=== PATIENT | female | born 1960 | race Caucasian/White ===

== ENCOUNTER → 2018-11-07 07:55 | Outpatient (CLI) | payer OTHER, SELFPAY ==
[2018-11-07 07:51] VITALS: BMI 25.0
--- NOTE | 2018-11-07 08:07 | RAD_ITS ---
STUDY: X-RAY - RIGHT ELBOW REASON FOR EXAM: Female, 58 years old. Pain and swelling along the posterior elbow joint following a fall. TECHNIQUE: view(s) of the elbow. COMPARISON: None. FINDINGS: Normal visualized humerus, radius and ulna. Normal radiocapitellar and ulnotrochlear articulations. Soft tissue swelling overlying the olecranon process. RAD/Elbow min 3 Views IMPRESSION: Posterior soft tissue swelling. Electronically Signed: Ken Quiroz, at 8:34 EDT , Service support ,
--- NOTE | 2018-11-07 08:08 | RAD_ITS ---
STUDY: X-RAY - RIGHT KNEE REASON FOR EXAM: Female, 58 years old. Pain following a fall. TECHNIQUE: 4 view(s) of the knee. COMPARISON: None. FINDINGS: Normal visualized distal femur. Normal visualized proximal tibia and fibula. Normal proximal tibiofibular articulation. There is mild degenerative arthrosis of the medial femorotibial compartment. Normal lateral femorotibial compartment. Normal patellofemoral articulation. The soft tissue structures are unremarkable. RAD/Knee 4 or More Views IMPRESSION: Degenerative arthrosis. Electronically Signed: Ken Quiroz, at 8:34 EDT , Service support ,
== END ==
PROVIDERS: Referring Provider Physician Assistant Surgical; Visit Provider Physician Assistant Surgical
DX: M25.521 Pain in right elbow (principal); M25.561 Pain in right knee
CPT/HCPCS: 73080; 73564

== ENCOUNTER → 2018-12-24 11:01 | Outpatient (CLI) | payer BC, SELFPAY ==
[2018-11-07 07:51] VITALS: BMI 25.0
[2018-12-24 13:12] LABS: AST(SGOT) 18 U/L (15-37); Alanine Aminotransfer ALT/SGPT 30 U/L (13-56); Albumin, Serum 3.8 g/dL (3.2-5.0); Alkaline Phosphatase 148 U/L (45-117); Anion Gap 6 (5-15); BUN 21 mg/dL (7-18); BUN/Creat Ratio 24.8 RATIO (10-20); Calcium,Total 9.5 mg/dL (8.5-10.1); Chloride 97 mmol/L (98-107); Creatinine, Serum 0.85 mg/dL (0.55-1.02); EST Glomerular Filtration Rate 73 mL/min (>60); Est Glom Filt Rate - Afr Amer 88 mL/min (>60); Globulin 3.8 g/dL (2.2-4.2); Glucose 318 mg/dL (74-106); Potassium 4.3 mmol/L (3.5-5.1); Protein, Total 7.6 g/dL (6.4-8.2); Sodium Level 135 mmol/L (136-145); Thyroid Stim Hormone (TSH) 1.02 uIU/mL (0.358-3.74)
== END ==
PROVIDERS: Family Provider Family Medicine; PCP Family Medicine; Referring Provider Family Medicine; Visit Provider Family Medicine
DX: E11.9 Type 2 diabetes mellitus without complications (principal)
CPT/HCPCS: 36415; 80053; 84443

== ENCOUNTER → 2019-05-21 11:42 | Outpatient (CLI) | payer BC, SELFPAY ==
[2019-05-21 09:07] VITALS: BMI 25.0
[2019-05-21 13:11] LABS: Microalbumin,Random Urine 69.9 mg/L (NO RANGE EST.)
== END ==
PROVIDERS: Family Provider Family Medicine; PCP Family Medicine; Referring Provider Internal Medicine Endocrinology, Diabetes & Metabolism; Visit Provider Internal Medicine Endocrinology, Diabetes & Metabolism
DX: E11.65 Type 2 diabetes mellitus with hyperglycemia (principal)
CPT/HCPCS: 82043; 82570

== ENCOUNTER → 2019-07-30 08:50 | Outpatient (CLI) | payer BC, SELFPAY ==
[2019-07-30 08:14] VITALS: BMI 25.0
[2019-07-30 11:08] LABS: ALB/GLOB Ratio 0.9 RATIO (0.9-2.4); AST(SGOT) 15 U/L (15-37); Alanine Aminotransfer ALT/SGPT 25 U/L (13-56); Albumin, Serum 3.4 g/dL (3.2-5.0); Alkaline Phosphatase 122 U/L (45-117); Anion Gap 5 (5-15); BUN 16 mg/dL (7-18); BUN/Creat Ratio 19.1 RATIO (10-20); Calcium,Total 9.4 mg/dL (8.5-10.1); Chloride 104 mmol/L (98-107); Cholesterol 173 mg/dL (200); Creatinine, Serum 0.84 mg/dL (0.55-1.02); EST Glomerular Filtration Rate 73 mL/min (>60); Est Glom Filt Rate - Afr Amer 89 mL/min (>60); Globulin 3.9 g/dL (2.2-4.2); Glucose 212 mg/dL (74-106); High Density Lipoprotein 33 mg/dL; Protein, Total 7.3 g/dL (6.4-8.2); Sodium Level 138 mmol/L (136-145); Triglycerides 528 mg/dL
[2019-07-30 11:24] LABS: Vitamin D,25 Hydroxy 23.4 ng/mL (29.95-100.01)
== END ==
PROVIDERS: PCP Family Medicine; Referring Provider Family Medicine; Visit Provider Family Medicine
DX: E11.9 Type 2 diabetes mellitus without complications (principal); E55.9 Vitamin D deficiency, unspecified
CPT/HCPCS: 36415; 80053; 80061; 82306; 84443

== ENCOUNTER 2020-02-06 09:41 | Inpatient (IN) | payer OTHER, SELFPAY ==
[2019-07-30 08:14] VITALS: BMI 25.0
[2020-02-06 09:43] VITALS: BP 90/55; PULSE 71; RESP 17; TEMP 35.9; O2SAT 99; BMI 25.7
--- NOTE | 2020-02-06 10:09 | CT_ITS ---
STUDY: CT ABDOMEN AND PELVIS WITHOUT CONTRAST REASON FOR EXAM: Female, 59 years old. PT STATED FALL FROM LADDER AT WORK TODAY, LEFT HIP PAIN RADIATION DOSAGE (If Supplied By Facility): CTDIvol = ( 7.1 ) mGy, DLP = ( 392.05 ) mGycm TECHNIQUE: Transaxial images were obtained from the dome of the diaphragm to the symphysis pubis without oral contrast, and without intravenous contrast. Sagittal and coronal images were reconstructed. Individualized dose optimization techniques were used for this CT. COMPARISON: None. FINDINGS: The visualized lung bases are unremarkable. The visualized portions of the heart are within normal limits. Normal liver. Normal gallbladder and extrahepatic biliary system. Normal spleen. Normal pancreas. Normal bilateral adrenal glands. Normal right kidney. Normal left kidney. Normal visualized stomach. Normal small intestine. Normal colon. The appendix is visualized and appears normal. Normal abdominal aorta. Normal inferior vena cava. Normal retroperitoneum. Normal urinary bladder. Some soft tissue swelling in the anterior abdominal wall of lower quadrant. Unilateral left-sided pars defect of the L5 vertebra. CT/Abdomen/Pelvis without Cont IMPRESSION: Normal unenhanced CT of the abdomen and pelvis. Pending Final Proof Editing
--- NOTE | 2020-02-06 10:10 | RAD_ITS ---
STUDY: X-RAY - PELVIS AND LEFT HIP REASON FOR EXAM: Female, 59 years old. FALL OFF OF LADDER. PAIN LEFT HIP TECHNIQUE: 3 views of the pelvis and hip. COMPARISON: None. FINDINGS: There is a non-specific bowel gas pattern. Normal visualized soft tissue structures. Normal bilateral iliac wings, sacroiliac joints and visualized sacrum. Normal bilateral superior and inferior pubic rami. Normal pubic symphysis. Normal bilateral ischial tuberosities. Acute nondisplaced fracture the basicervical femoral neck. Normal acetabulum. Normal hip joint. RAD/HIP, UNI W/ Pelvis 2-3 Views IMPRESSION: Acute nondisplaced fracture the basicervical femoral neck. Electronically Signed: Mateusz Sewell MD at 11:05 EDT Tel , Service support ,
--- NOTE | 2020-02-06 10:10 | RAD_ITS ---
STUDY: X-RAY - LEFT ANKLE REASON FOR EXAM: Female, 59 years old. FALL OFF OF LADDER TECHNIQUE: 3 view(s) of the ankle. COMPARISON: None. FINDINGS: Normal visualized distal tibia and fibula. Normal medial and lateral malleoli. Normal tibiotalar articulation and ankle mortise. Normal visualized talus and calcaneus. The visualized subtalar, talonavicular, calcaneocuboid and tarsal articulations are normal. The soft tissue structures are unremarkable. RAD/Ankle min 3 Views IMPRESSION: Normal x-ray examination of the ankle. Electronically Signed: Mateusz Sewell MD at 11:02 EDT Tel , Service support ,
--- NOTE | 2020-02-06 10:15 | ED.DCSUM_ITS ---
History of Present Illness Chief Complaint: Fall Narrative: Patient presenting for evaluation secondary to a fall. Patient works at [employer], and informs me that she was descending a three-step stepladder, thought she was on the final step but was actually on the second step and suffered a fall. She denies that she hit her head or loss consciousness. She states that she fell directly on her left hip and left buttock. She has a moderate to severe amount of pain there, and was unable to bear weight when she was helped to her feet. Patient denies that she is on any sort of anticoagulant medications. She denies any visual changes numbness weakness nausea vomiting or confusion. Patient also reports that she has a very mild amount of lateral left ankle pain. Review of systems otherwise negative. Past Medical History - Allergies and Home Meds Allergies/Adverse Reactions: Allergies No Known Allergies Allergy (Verified 02/06/20 09:43) Prior records reviewed: Yes Past Medical History: - - Hypertension, hyperlipidemia, diabetes Lives: Spouse/ Significant Other Smoking Status: Former smoker Alcohol: None Drugs: None Review of Systems All systems negative except as indicated General: Denies: Chills, Fever, Sweats Eyes: Denies: Visual changes - bilaterally, Diplopia ENT: Denies: Rhinorrhea, Sore throat Cardiovascular: Denies: Chest pain, Palpitations Respiratory: Denies: Dyspnea, Cough, Dyspnea on exertion Gastrointestinal: Denies: Abdominal pain, Nausea, Vomiting, Diarrhea, Melena, Hematochezia Genitourinary: Denies: Dysuria, Hematuria, Frequency Musculoskeletal: Reports: Extremity Pain Skin: Denies: Rash, Wounds Neurological: Denies: Headache, Weakness, Numbness Physical Exam Vital Signs/Narrative: Vital Signs Temp Pulse Resp BP Pulse Ox 02/06/20 09:43 96.6 F L 71 17 90/55 L 99 Inital Vital Signs reviewed: Yes General: Well nourished, Well developed, - - Airway is patent, breath sounds are equal bilateral, 2+ peripheral pulses bilaterally symmetric, GCS 15 out of 15 Head: Normocephalic, Atraumatic Eyes: Perrl, EOMI ENT: TM's clear, No hemotympanum or drainage, No trauma Neck: Nontender, Full ROM. Negative for: Spinal Tenderness, Paraspinal Tenderness Cardiovascular: Regular rate, Regular rhythm, No murmurs, - - 2+ radial, 2+ DP pulses bilaterally symmetric Respiratory: No distress, CTA bilaterally, Chest nontender, - - Normal chest excursion Abdomen: Soft, Nontender, Nondistended, Normal bowel sounds Back: Nontender Extremeties: Patient complains with pain on palpation of the left buttock without evidence of deformity. No pain on palpation of the left hip, no pain with logroll or with passive flexion and extension at the hip, but the patient complains of exquisite pain with active flexion and extension. Mild amount of pain over the lateral malleolus without any evidence of deformity. Normal range of motion of the foot and ankle. No tenderness over the midfoot or the fifth metatarsal head. No proximal fibular head tenderness. Normal sensation over all dermatomes Skin: Normal color, No rash Neurological: Alert, Oriented x3, Cranial nerves II-XII grossly intact, Normal Strength, Normal Sensation Psychological: Normal affect Diagnostic/Tx/Re-eval - Medical Decision Making Patient presented secondary to a mechanical fall. Primary and secondary surveys are noted as above, no intervention needed on primary survey, secondary survey showed left lower extremity injury. Patient was noted to be somewhat hypotensive, she has no other outward signs of trauma, but I did order CT abdomen and pelvis to rule out intra-abdominal injury or hemorrhage. Hip x-ray by my personal interpretation shows evidence of a nondisplaced left femoral neck fracture. 3 view ankle, and 1 view chest by my personal interpretation are found to be negative. Due to the patient's hip fracture, screening EKG and lab work were ordered. I will discuss patient's case with orthopedics and she will be admitted for definitive management of a left hip fracture. ED Disposition - Plan for ED Patient: Disposition: [facility] Diagnosis: Fracture of femoral neck, left
--- NOTE | 2020-02-06 10:31 | EKG12_ITS ---
Test Reason : FALL Blood Pressure : / mmHG Vent. Rate : 056 BPM Atrial Rate : 056 BPM P-R Int : 134 ms QRS Dur : 086 ms QT Int : 424 ms P-R-T Axes : 036 -31 012 degrees QTc Int : 409 ms Sinus bradycardia Left axis deviation Abnormal ECG Confirmed by LAURITA ARIAS, TORY ([id number]), book editor WASHINGTON MENDOZA ([id number]) on 02/08/2020 8:58:45 AM Referred By: JASON Confirmed By:TORY SHAY MD
--- NOTE | 2020-02-06 10:31 | RAD_ITS ---
STUDY: X-RAY CHEST REASON FOR EXAM: Female, 59 years old. FALL OFF OF LADDER, FX HIP. TAKEN IS TECHNIQUE: Single AP portable view of the chest. COMPARISON: 02/19/2012 FINDINGS: The lungs are clear and expanded. There is no demonstrated pleural abnormality. Normal size heart. Normal mediastinum and estelle. Normal visualized pulmonary arteries. Normal visualized aortic arch and descending thoracic aorta. Normal visualized thoracic spine. Normal visualized ribs, clavicles, and shoulders. There is no demonstrated abnormality of the visualized soft tissue structures of the upper abdomen. RAD/Chest 1 View IMPRESSION: Normal x-ray examination of the chest. Electronically Signed: Mateusz Sewell MD at 10:58 EDT Tel , Service support ,
[2020-02-06 10:56] LABS: Absolute Lymphocyte Count 2.79 X10^3/uL (0.83-4.51); Absolute Neutrophil Count 5.3 X10^3/uL (2.0-7.7); Basophil# 0.03 X10^3/uL; Basophil% 0.3 % (0-1); Eosinophil# 0.15 X10^3/uL; Eosinophils% 1.7 % (0-5); Hematocrit 38.6 % (37-47); Hemoglobin 13.6 g/dL (12.0-15.0); Lymphocyte # 2.79 X10^3/ul (4.0); Lymphocyte % 32.3 % (19-41); Mean Corp Hgb Conc 35.2 g/dL (32-36); Mean Corpuscular Volume 82.3 fL (81-99); Monocyte# 0.35 X10^3/uL; Monocyte% 4.1 % (0-10); NRBC Flagged by Analyzer 0 % (0-5); Neutrophil # 5.28 X10^3/uL (2.7-7.7); Neutrophil % 61.1 % (47-70); Platelet Count 219 K/mm3 (150-450); RBC Distribution Width CV 12.2 % (11.6-14.6); Red Blood Count 4.69 M/mm3 (4.2-5.4); White Blood Count 8.6 K/mm3 (4.4-11.0)
[2020-02-06 11:02] LABS: Partial Thromboplast Time 26.3 Seconds (24.1-36.2)
[2020-02-06 11:06] LABS: Anion Gap 4 (5-15); BUN 22 mg/dL (7-18); BUN/Creat Ratio 22.7 RATIO (10-20); Calcium,Total 9.1 mg/dL (8.5-10.1); Chloride 101 mmol/L (98-107); Creatinine, Serum 0.97 mg/dL (0.55-1.02); EST Glomerular Filtration Rate 62 mL/min (>60); Est Glom Filt Rate - Afr Amer 75 mL/min (>60); Estimated Creatinine Clearance 50.38 ml/min; Glucose 243 mg/dL (74-106); Potassium 3.4 mmol/L (3.5-5.1); Sodium Level 134 mmol/L (136-145)
[2020-02-06] MEDS: Ondansetron 4 MG/2 ML Vial IV (11:09)
[2020-02-06] MEDS: 0.9% Normal Saline 1,000 ML 999 ML IV (11:09)
[2020-02-06] MEDS: fentaNYL 100 MCG/2 ML Ampul 25 MCG IV (11:09)
[2020-02-06 11:30] VITALS: BP 127/73; PULSE 80; RESP 15
--- NOTE | 2020-02-06 11:32 | PCM.HP.STD ---
History of Present Illness Date of Admission: 02/06/20 Chief Complaint: Hip fracture The patient is a 59 year old F with a PMH as below who presents after a fall at work. 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 She has a left femoral neck fracture. A1c on admission is 11.1 and her glucose was elevated to 43. She denies any lightheadedness, or dizziness before the fall. She states that this was purely mechanical. She states that she does not get any shortness of breath with ambulation or with going up stairs. She does not bruise easily. Past Medical History Past Medical History (Chronic Problems): Chronic Problems (Last Reviewed 07/30/19 @ 08:[address] Adam Alvarado MD) Noncompliance with diabetes treatment (Chronic) Mixed hyperlipidemia (Chronic) Benign essential hypertension (Chronic) Polyneuropathy due to type 2 diabetes mellitus (Chronic) Diabetes mellitus (Chronic) Medical History: Medical History (Last Reviewed 07/30/19 @ 08:[address] Adam Alvarado MD) Cancer C80.1 Diabetes E11.9 H/O transfusion of whole blood Z92.89 Hyperlipidemia E78.5 Liver disease K76.9 Neuropathy G62.9 Shortness of breath R06.02 Skin cancer C44.90 Vitamin D deficiency E55.9 Chronic headaches R51 Hypertension I10 Allergies No Known Allergies Allergy (Verified 02/06/20 09:43) Home Medications: Ambulatory Orders Medication Instructions Recorded metformin 500 mg tablet,extended 500 mg PO DAILY 30 Days #30 tab 07/12/18 release 24 hr metoprolol succinate 50 mg 50 mg PO DAILY 30 Days #30 tab 07/12/18 tablet,extended release 24 hr aspirin 81 mg tablet,delayed 81 mg PO DAILY 05/08/19 release lisinopril 20 1 tab PO DAILY 05/08/19 mg-hydrochlorothiazide 25 mg tablet magnesium oxide 500 mg capsule 500 mg PO DAILY 05/08/19 omega-3 acid ethyl esters 1 gram 2 cap PO DAILY cap 05/08/19 capsule omeprazole 40 mg capsule,delayed 40 mg PO DAILY 05/08/19 release Cholecalciferol (Vitamin D3) 2,000 unit PO DAILY 02/06/20 [Vitamin D3] Glimepiride 4 mg PO BID 02/06/20 Insulin Detemir [Levemir (BKC)] 39 units SUBCUT QHS 02/06/20 Rosuvastatin Calcium [Crestor] 20 mg PO DAILY 02/06/20 Surgical History: Surgical History (Last Reviewed 07/30/19 @ 08:[address] Adam Alvarado MD) H/O: Z98.891 1996 Status post surgical removal of malignant neoplasm of skin Z98.890 Lives: Spouse/ Significant Other Smoking Status: Former smoker Alcohol: None Drugs: None - *Family History Maternal Family History: Family History (Last Reviewed 07/30/19 @ 08:[address] Adam Alvarado MD) Father Arthritis Diabetes Myocardial infarction, Onset Age: 63 Heart disease Hypertension Sister Arthritis Diabetes Brother Diabetes Mental disorder Mother Hypertension Migraines Cerebral hemorrhage Review of Systems Constitutional: Denies: Chills, Fever, Weight Change HEENT: Denies: Head Aches, Sinus Congestion, Sinus Drainage Cardiovascular: Denies: Chest Pain, Palpitations Respiratory: Denies: Cough, Shortness of breath at rest, Sputum production Gastrointestinal: Denies: Abdominal Pain, Nausea, Vomiting Genitourinary: Denies: Dysuria Musculoskeletal: Reports: Leg Pain. Denies: Joint Pain, Joint Tenderness Skin: Denies: Rash, Wounds Neurological: Denies: Numbness, Tingling, Focal weakness Psychiatric: Denies: Anxiety, Depression Hematologic/ Lymphatic: Denies: Easy Bruising, Easy Bleeding VTE Information - Inpt Only VTE Present on Admission: No Patient Problems: Active and Suspected Problems (Last Reviewed 07/30/19 @ 08:[address] Adam Alvarado MD) Fracture of femoral neck, left (Acute) - Physical Exam Vitals/I&O's: Vital Signs Temp Pulse Resp BP Pulse Ox 96.6 F L 71 17 90/55 L 99 02/06/20 09:43 02/06/20 09:43 02/06/20 09:43 02/06/20 09:43 02/06/20 09:43 Oxygen Delivery Method Room Air Weight: 145 lb Body Mass Index (BMI) 25.7 General: Alert, Oriented x3, Cooperative, No apparent distress HEENT: Atraumatic, PERRLA, EOMI, Normocephalic Oral: Moist Mucosa Neck: Supple, No JVD Lungs: Clear to auscultation, Normal air movement, No rhonchi, No wheeze, No rales, Diminished Cardiovascular: Regular rate, Regular Rhythm, Normal S1, Normal S2, No murmurs Abdomen: Soft, Non Tender, Non-Distended, No Hepato-splenomegaly Extremities: No edema, Capillary Refill Less than 3 Seconds Skin: No rashes, No breakdown Musculoskeletal: Tenderness - To palpation of the left hip Neurological: Neuro grossly intact, Sensory exam intact to light touch and pain Psych/Mental Status: Normal Affect, Appropriate Laboratory Results 02/06/20 10:45: WBC 8.6, RBC 4.69, Hgb 13.6, Hct 38.6, MCV 82.3, MCH 29.0, MCHC 35.2, RDW Std Deviation 36.0, RDW Coeff of Shameka 12.2, Plt Count 219, MPV 10.0, Immature Gran % (Auto) 0.500, Neut % (Auto) 61.1, Lymph % (Auto) 32.3, Wells % (Auto) 4.1, Eos % (Auto) 1.7, Baso % (Auto) 0.3, Absolute Neuts (auto) 5.3, Absolute Lymphs (auto) 2.79, Nucleated RBC % 0 02/06/20 10:45: PT 13.0, INR 1.0, APTT 26.3 02/06/20 10:45: Sodium 134 L, Potassium 3.4 L, Chloride 101, Carbon Dioxide 29.0, Anion Gap 4 L, BUN 22 H, Creatinine 0.97, Estim Creat Clear Calc 50.38, Est GFR (MDRD) Af Amer 75, Est GFR (MDRD) Non-Af 62, BUN/Creatinine Ratio 22.7 H, Glucose 243 H, Calcium 9.1 02/06/20 10:45: Blood Type Pending, Antibody Screen Pending Current Medications Sodium Chloride () 1,000 mls @ 999 mls/hr IV .Q1H1M ONE Stop: 02/06/20 12:03 Last Admin: 02/06/20 11:09 Dose: 999 mls/hr Documented by: Assessment/Plan All Active Problems (Last Reviewed 07/30/19 @ 08:[address] Adam Alvarado MD) Fracture of femoral neck, left (Acute) Contusion of right knee, initial encounter (Acute) Contusion of right elbow, initial encounter (Acute) 1. Acute nondisplaced fracture of the femoral neck on the left secondary to mechanical fall -Plan for operative repair tomorrow by Ortho -Pain meds available -Surgical risk calculator on the chart -PT/OT 2. DM 2 -A1c is 11.1 -We will continue with her home insulin and will add mealtimes and a sliding scale -We will hold her oral hypoglycemics -Accu-Cheks AC at bedtime 3. HTN/HLD -Had a stress test few years ago which was nonischemic -EKG is unremarkable -Continue with her blood pressure medications -Continue with her Crestor 4. GERD -Stable -Continue with PPI DVT: SCDs Inpatient E&M: [id number] Init Hosp L3
[2020-02-06 11:43] VITALS: BP 127/73; PULSE 78; RESP 15; TEMP 36.3
[2020-02-06 12:08] VITALS: BMI 25.3
[2020-02-06 12:43] VITALS: BP 110/72; PULSE 60; RESP 16; TEMP 36.4; O2SAT 98
--- NOTE | 2020-02-06 13:10 | CASEMGMT ---
RN CM Face to Face with patient for initial transition planning/care coordination assessment. RN CM introduced self and role at [facility]. Patient lying in bed, alert and oriented, at bedside. Patient willing to participate in assessment and is able to answer all questions appropriately. Care providers, pharmacy, and demographics verified. Patient wishes to discharge home, will monitor need for outpatient therapy vs HHC. Patient states she has no further needs or concerns at this time. CM to follow for discharge planning needs that may arise. PCP: Cam Specialists: Antonio Alvarado Preferred Pharmacy: [facility] Insurance: [employer] Prescription Benefit: yes Living Will/HPOA: none LNOK: Living Arrangements: Patient lives with in a ranch style home with 2 steps to enter. Patient states she is independent at home. Transportation: self/ DME/HHC: Patient states she has crutches at home. Will monitor for need for walker. Disposition Plan: Patient to discharge home with outpatient therapy vs HHC, family support, and follow-up plans in place. Lou ALEXANDER, RN, CM
--- NOTE | 2020-02-06 13:22 | EKG12_ITS ---
Test Reason : ROUTINE Blood Pressure : / mmHG Vent. Rate : 086 BPM Atrial Rate : 086 BPM P-R Int : 158 ms QRS Dur : 084 ms QT Int : 376 ms P-R-T Axes : 044 -32 019 degrees QTc Int : 449 ms Normal sinus rhythm Left axis deviation Abnormal ECG No previous ECGs available Confirmed by KIRAN ARIAS, CARLA ([id number]), photography editor WASHINGTON MENDOZA ([id number]) on 02/09/2020 10:51:23 AM Referred By: JEVON Confirmed By:CARLA BECK MD
[2020-02-06 13:52] LABS: Hemoglobin A1c 11.1 % (3.8-5.6)
[2020-02-06] MEDS: Acetaminophen 325 MG Tablet 650 MG PO ×2 (13:55→21:34)
[2020-02-06] MEDS: oxyCODONE 5 MG Tablet PO ×2 (13:55→21:34)
[2020-02-06 16:10] VITALS: BP 94/55; PULSE 64; RESP 16; TEMP 36.7; O2SAT 98
[2020-02-06 16:20] LABS: Bedside Glucose 208 mg/dL (70-110)
[2020-02-06] MEDS: Insulin Lispro 100 UNIT/ML INSULN.PEN SC ×3 (17:45→21:48)
[2020-02-06 21:30] VITALS: BP 128/77; PULSE 68; RESP 16; TEMP 36.7; O2SAT 98
[2020-02-06] MEDS: MELATONIN 3 MG TABLET PO (21:34)
[2020-02-06 21:55] LABS: Bedside Glucose 303 mg/dL (70-110)
[2020-02-07] VITALS (13 sets, daily range): BP systolic 121–160; BP diastolic 55–107; PULSE 60–107; RESP 16–18; TEMP 35.9–36.8; O2SAT 90–100; BMI 25.3
[2020-02-07] MEDS: 0.9% Saline Lock 10 ML Syringe IV ×3 (05:57→15:24)
[2020-02-07] MEDS: Metoprolol(XL)Succ 50 MG Tablet PO (05:58)
[2020-02-07] MEDS: Morphine 2 MG/ML Syringe IV (06:03)
[2020-02-07] MEDS: Ondansetron 4 MG/2 ML Vial IV (06:03)
[2020-02-07 06:16] LABS: Bedside Glucose 235 mg/dL (70-110)
[2020-02-07 06:50] LABS: Absolute Lymphocyte Count 3.69 X10^3/uL (0.83-4.51); Absolute Neutrophil Count 3.4 X10^3/uL (2.0-7.7); Basophil# 0.02 X10^3/uL; Basophil% 0.3 % (0-1); Eosinophil# 0.23 X10^3/uL; Hematocrit 40.3 % (37-47); Hemoglobin 13.6 g/dL (12.0-15.0); Lymphocyte # 3.69 X10^3/ul (4.0); Lymphocyte % 47.9 % (19-41); Mean Corp Hgb Conc 33.7 g/dL (32-36); Mean Corpuscular Hgb 27.9 pg (27.0-32.0); Mean Corpuscular Volume 82.8 fL (81-99); Mean Platelet Vol. 10.4 fl (6.2-12.0); Monocyte# 0.39 X10^3/uL; Monocyte% 5.1 % (0-10); NRBC Flagged by Analyzer 0 % (0-5); Neutrophil # 3.35 X10^3/uL (2.7-7.7); Neutrophil % 43.4 % (47-70); Platelet Count 190 K/mm3 (150-450); RBC Distribution Width CV 12.2 % (11.6-14.6); Red Blood Count 4.87 M/mm3 (4.2-5.4); White Blood Count 7.7 K/mm3 (4.4-11.0)
--- NOTE | 2020-02-07 06:50 | NURSING ---
REPORT GIVEN TO SURGERY NURSE
[2020-02-07 07:05] LABS: Anion Gap 4 (5-15); BUN 16 mg/dL (7-18); BUN/Creat Ratio 17.3 RATIO (10-20); Calcium,Total 8.7 mg/dL (8.5-10.1); Chloride 102 mmol/L (98-107); Creatinine, Serum 0.92 mg/dL (0.55-1.02); EST Glomerular Filtration Rate 65 mL/min (>60); Est Glom Filt Rate - Afr Amer 79 mL/min (>60); Estimated Creatinine Clearance 53.12 ml/min; Glucose 260 mg/dL (74-106); Sodium Level 136 mmol/L (136-145)
--- NOTE | 2020-02-07 07:19 | PCM.CONS.GEN ---
Reason for Consult Date of Consultation: 02/07/20 Reason for Consultation: Left hip pain. requested by dr jose History of Present Illness: The patient is a 59 year old F who presents today for left hip pain. Patient has poorly controlled diabetes and hemoglobin A1c was 11.1 on admission. She is remained in the 200s per hyjeh-gh-exac checks. Patient notes that yesterday while at work she was on a stepstool and had a mechanical fall. Upon falling off she was unable to bear weight on the left hip. Pain is currently 6 out of 10. At the time of injury it was 10 out of 10. Patient is currently unable to bear weight. Pain is better with rest and immobilization. No associated numbness and tingling distally. She does have chronic neuropathy. She lives at home with her , and ambulates without any assistive devices and reports regular activity. Past Medical History Past Medical History (Chronic Problems): Chronic Problems (Last Reviewed 07/30/19 @ 08:[address] Adam Alvarado MD) Noncompliance with diabetes treatment (Chronic) Mixed hyperlipidemia (Chronic) Benign essential hypertension (Chronic) Polyneuropathy due to type 2 diabetes mellitus (Chronic) Diabetes mellitus (Chronic) Medical History: Medical History (Last Reviewed 07/30/19 @ 08:[address] Adam Alvarado MD) Cancer C80.1 Diabetes E11.9 H/O transfusion of whole blood Z92.89 Hyperlipidemia E78.5 Liver disease K76.9 Neuropathy G62.9 Shortness of breath R06.02 Skin cancer C44.90 Vitamin D deficiency E55.9 Chronic headaches R51 Hypertension I10 Allergies No Known Allergies Allergy (Verified 02/06/20 09:43) Home Medications: Ambulatory Orders Medication Instructions Recorded metformin 500 mg tablet,extended 500 mg PO DAILY 30 Days #30 tab 07/12/18 release 24 hr metoprolol succinate 50 mg 50 mg PO DAILY 30 Days #30 tab 07/12/18 tablet,extended release 24 hr aspirin 81 mg tablet,delayed 81 mg PO DAILY 05/08/19 release lisinopril 20 1 tab PO DAILY 05/08/19 mg-hydrochlorothiazide 25 mg tablet magnesium oxide 500 mg capsule 500 mg PO DAILY 05/08/19 omega-3 acid ethyl esters 1 gram 2 cap PO DAILY cap 05/08/19 capsule omeprazole 40 mg capsule,delayed 40 mg PO DAILY 05/08/19 release Cholecalciferol (Vitamin D3) 2,000 unit PO DAILY 02/06/20 [Vitamin D3] Glimepiride 4 mg PO BID 02/06/20 Insulin Detemir [Levemir (BKC)] 39 units SUBCUT QHS 02/06/20 Rosuvastatin Calcium [Crestor] 20 mg PO DAILY 02/06/20 Surgical History: Surgical History (Last Reviewed 07/30/19 @ 08:[address] Adam Alvarado MD) H/O: Z98.891 1996 Status post surgical removal of malignant neoplasm of skin Z98.890 Surgical History: no surgical history Lives: Spouse/ Significant Other Smoking Status: Former smoker Tobacco Use: Non-smoker Alcohol: None Drugs: None - *Family History Maternal Family History: Family History (Last Reviewed 07/30/19 @ 08:[address] Adam Alvarado MD) Father Arthritis Diabetes Myocardial infarction, Onset Age: 63 Heart disease Hypertension Sister Arthritis Diabetes Brother Diabetes Mental disorder Mother Hypertension Migraines Cerebral hemorrhage Review of Systems Constitutional: Denies: Chills, Fever, Weight Change HEENT: Denies: Head Aches, Sinus Congestion, Sinus Drainage Cardiovascular: Denies: Chest Pain, Palpitations Respiratory: Denies: Cough, Shortness of breath at rest, Sputum production Gastrointestinal: Denies: Abdominal Pain, Nausea, Vomiting Genitourinary: Denies: Dysuria Musculoskeletal: Reports: Joint Pain, Joint Tenderness Skin: Denies: Rash, Wounds Neurological: Denies: Numbness, Tingling, Focal weakness Psychiatric: Denies: Anxiety, Depression, Homicidal Ideations, Suicidal Ideations Hematologic/ Lymphatic: Denies: Easy Bruising, Easy Bleeding Patient Problems: Active and Suspected Problems (Last Reviewed 07/30/19 @ 08:[address] Adam Alvarado MD) Fracture of femoral neck, left (Acute) Objective: Left hip x-rays and CT scan were reviewed. There is a mildly displaced transcervical femoral neck fracture. It is called basicervical on the radiographs by radiologist however it is a transcervical. Also evidence of joint space narrowing consistent with mild arthrosis of the joint. - Physical Exam Vitals/I&O's: Vital Signs Temp Pulse Resp BP Pulse Ox 98.1 F 60 16 139/55 H 96 02/07/20 06:15 02/07/20 06:15 02/07/20 06:15 02/07/20 06:15 02/07/20 06:15 Oxygen Delivery Method Room Air Weight: 143 lb Body Mass Index (BMI) 25.3 Intake and Output for Last 24 Hours 02/05/20 02/06/20 02/07/20 23:59 23:59 23:59 Intake Total 1400 / 1400 400 / 400 Output Total 700 / 700 950 / 950 Balance 700 / 700 -550 / -550 General: Alert HEENT: Atraumatic Neck: No JVD Lungs: - - Nonlabored breathing Cardiovascular: - - Regular pulse rate Abdomen: Non-Distended Extremities: - - Right lower extremity: Skin clean, dry, and intact. Limb length is maintained Motor is intact dorsiflexion, EHL and plantar flexion. Sensation is intact to light touch saphenous, jessica,l superficial peroneal, deep peroneal and tibial distributions. Calves are soft and supple. Skin: No rashes Neurological: Cranial nerves II-XII grossly intact Psych/Mental Status: Appropriate Laboratory Results 02/06/20 10:45: WBC 8.6, RBC 4.69, Hgb 13.6, Hct 38.6, MCV 82.3, MCH 29.0, MCHC 35.2, RDW Std Deviation 36.0, RDW Coeff of Shameka 12.2, Plt Count 219, MPV 10.0, Immature Gran % (Auto) 0.500, Neut % (Auto) 61.1, Lymph % (Auto) 32.3, Hopkins % (Auto) 4.1, Eos % (Auto) 1.7, Baso % (Auto) 0.3, Absolute Neuts (auto) 5.3, Absolute Lymphs (auto) 2.79, Nucleated RBC % 0 02/06/20 10:45: PT 13.0, INR 1.0, APTT 26.3 02/06/20 10:45: Sodium 134 L, Potassium 3.4 L, Chloride 101, Carbon Dioxide 29.0, Anion Gap 4 L, BUN 22 H, Creatinine 0.97, Estim Creat Clear Calc 50.38, Est GFR (MDRD) Af Amer 75, Est GFR (MDRD) Non-Af 62, BUN/Creatinine Ratio 22.7 H, Glucose 243 H, Calcium 9.1 02/06/20 10:45: Blood Type O NEGATIVE, Antibody Screen NEGATIVE 02/06/20 10:45: Hemoglobin A1c 11.1 H 02/06/20 16:15: POC Glucose 208 H 02/06/20 21:47: POC Glucose 303 H 02/07/20 05:54: POC Glucose 235 H 02/07/20 06:20: WBC 7.7, RBC 4.87, Hgb 13.6, Hct 40.3, MCV 82.8, MCH 27.9, MCHC 33.7, RDW Std Deviation 37.0, RDW Coeff of Shameka 12.2, Plt Count 190, MPV 10.4, Immature Gran % (Auto) 0.300, Neut % (Auto) 43.4 L, Lymph % (Auto) 47.9 H, Hopkins % (Auto) 5.1, Eos % (Auto) 3.0, Baso % (Auto) 0.3, Absolute Neuts (auto) 3.4, Absolute Lymphs (auto) 3.69, Nucleated RBC % 0 02/07/20 06:20: Sodium 136, Potassium 4.0, Chloride 102, Carbon Dioxide 30.0, Anion Gap 4 L, BUN 16, Creatinine 0.92, Estim Creat Clear Calc 53.12, Est GFR (MDRD) Af Amer 79, Est GFR (MDRD) Non-Af 65, BUN/Creatinine Ratio 17.3, Glucose 260 H, Calcium 8.7 Current Medications Acetaminophen (Tylenol) 650 mg PO Q6H PRN PRN PRN Reason: Pain Score 1-10/Temp > 100.7 F Last Admin: 02/06/20 21:34 Dose: 650 mg Documented by: Aspirin (Ecotrin) 81 mg PO DAILYCM [facility] Atorvastatin Calcium (Lipitor) 40 mg PO QHS MICHEL Sodium Chloride 68.4 ml/Ropivacaine 200 mg/Epinephrine HCl 0.6 mg/Morphine Sulfate 5 mg/Ketorolac Tromethamine 30 mg 0 ml OPERA.SITE X1 ONE Stop: 02/07/20 07:31 Dextrose (D50w Syringe) 0 gm IV X1 PRN; Protocol PRN Reason: Hypoglycemia Glucagon () 1 mg IM .X1 PRN PRN Reason: Hypoglycemia Hydrochlorothiazide (Hctz) 25 mg PO DAILY MICHEL Sodium Chloride () 250 mls @ 15 mls/hr IV .[id number] PRN PRN Reason: Saline Flush Sodium Chloride () 250 mls @ 15 mls/hr IV .[id number] PRN PRN Reason: Additional IVPB Infusion Cefazolin Sodium 2 gm/ Sodium (Chloride) 110 mls @ 150 mls/hr IV X1 ONE Stop: 02/07/20 07:43 Tranexamic Acid 2,000 mg/ (Sodium Chloride) 120 mls @ 660 mls/hr OPERA.SITE X1 ONE Stop: 02/07/20 07:30 Insulin Glargine (Lantus (Bkc)) 39 units SC QHS [facility] Last Admin: 02/06/20 21:55 Dose: Not Given Documented by: Insulin Human Lispro (Humalog Kwikpen ([facility])) 0 unit SC ACHS [facility]; Protocol Last Admin: 02/07/20 05:56 Dose: Not Given Documented by: Insulin Human Lispro (Humalog Kwikpen ([facility])) 5 unit SC TIDAC [facility] Last Admin: 02/07/20 05:57 Dose: Not Given Documented by: Lisinopril (Zestril) 20 mg PO DAILY [facility] Melatonin (Melatonin) 3 mg PO QHS PRN PRN PRN Reason: INSOMNIA Last Admin: 02/06/20 21:34 Dose: 3 mg Documented by: Metoprolol Succinate (Toprol Xl (Beta Sudha)) 50 mg PO DAILY [facility] Last Admin: 02/07/20 05:58 Dose: 50 mg Documented by: Morphine Sulfate () 2 mg IV Q3H PRN PRN PRN Reason: Pain Score 6-10/10 Last Admin: 02/07/20 06:03 Dose: 2 mg Documented by: Ondansetron HCl (Zofran) 4 mg IV Q8H PRN PRN PRN Reason: NAUSEA/VOMITING Last Admin: 02/07/20 06:03 Dose: 4 mg Documented by: Oxycodone HCl (Oxyir) 5 mg PO Q4H PRN PRN PRN Reason: Pain Score 4-10/10 Last Admin: 02/06/20 21:34 Dose: 5 mg Documented by: Pantoprazole Sodium (Protonix) 40 mg PO DAILY [facility] Sodium Chloride () 10 - 40 ml IV UD PRN PRN Reason: SALINE FLUSH Last Admin: 02/07/20 06:03 Dose: 10 ml Documented by: Assessment/Plan All Active Problems (Last Reviewed 07/30/19 @ 08:[address] Adam Alvarado MD) Fracture of femoral neck, left (Acute) Contusion of right knee, initial encounter (Acute) Contusion of right elbow, initial encounter (Acute) Right hip nondisplaced transcervical femoral neck fracture. Natural history of the disease process including nonunions, malunions and avascular necrosis were discussed the patient. We discussed operative versus nonoperative treatment. Based on the patient's health and activity levels I recommended operative intervention. From there we discussed appropriate operative intervention. Close duction percutaneous pinning versus hemiarthroplasty versus total hip replacement were discussed the patient. Patient does show evidence of some mild osteoarthritis. She is active. However her hemoglobin A1c is 11.1. In reviewing the risks and benefits of both procedures ultimately I recommended close reduction percutaneous pinning. Risks of this procedure included but were not limited to blood loss, DVTs, PEs, nervous damage, infection, general risk of anesthesia. In addition we discussed risk of avascular necrosis, nonunion, malunion, post traumatic osteoarthritis and other conditions that may lead to additional surgery down the road. Patient demonstrated understanding was able to sign informed consent. Her was at the bedside and agreed with the treatment plan as well. We also did discuss at length the pros and cons of arthroplasty however based on her hemoglobin A1c being 11.1 and was concerned that she had significantly elevated risk for infections and negative outcomes and ultimately recommended against this. Patient agreed. We will proceed with surgery this morning. Antibiotics on-call to the operating room.
--- NOTE | 2020-02-07 07:30 | RAD_ITS ---
STUDY: X-RAY - PELVIS AND LEFT HIP REASON FOR EXAM: Female, 59 years old. left hip surgery TECHNIQUE: 3 views of the pelvis and hip. COMPARISON: 02/06/2020 FINDINGS: 53 seconds of fluoroscopy of the left hip was utilized and operating room and 3 images are submitted for interpretation.. RAD/Hip Min 2 Views (Portable) IMPRESSION: Fluoroscopy during surgery. Electronically Signed: Mateusz Sewell MD at 10:22 EDT Tel , Service support ,
--- NOTE | 2020-02-07 07:48 | NURSING ---
Off the floor at this time. Went to surgery.
[2020-02-07] MEDS: 0.9% Normal Saline 500 ML IV.SOLN. IV (08:00)
[2020-02-07] MEDS: Cefazolin 2 GM in 0.9% Normal Saline 100 ML IV (08:05)
[2020-02-07] MEDS: Lactated Ringers 1,000 ML 100 ML IV (09:00)
--- NOTE | 2020-02-07 09:05 | OP.PCM_ITS ---
Report of Operation Date of Procedure: 02/07/20 Pre-Operative Diagnosis: Left hip transcervical femoral neck fracture Post-Operative Diagnosis: Left hip transcervical femoral neck fracture Surgery/Procedure Performed:: Close reduction percutaneous pinning left hip Description of Surgical Findings:: Stable hip reduction. Good bone quality. electronic scale subassembler: Jose Raul Shaw Type of Anesthesia:: General Anesthesiologist: Susan Davalos Special Medications: 2 g Ancef Estimated Blood Loss (mL): 20 Fluids Replaced: 1000 mL crystalloid Description of Procedure: Components: 3 Synthes 7.3 mm cannulated screws 2-80 mm, 1-75 mm. On the date of procedure patient's left lower extremity is was marked in the preoperative area. The patient was then taken back to the operating room where they were placed on the fracture table in the supine position. All bony prominences were identified a well-padded. Anesthesia assumed control of the C- spine and airway and remained controlled throughout the remainder of the procedure. A perineal post was placed and the pts legs were positioned for appropriate fluoroscopic views. The left lower extremity was prepped in a sterile fashion using chlorhexidine. The surgeon scrubbed at this time. Upon reentering the room the left extremity was draped in a standard orthopedic fashion. A timeout was then called and everyone agreed upon the side, the site, the procedure to be performed, patient's identity and antibiotics given. Fluoroscopy was used to verify the starting position of the initial pin which was above the level of the lesser trochanter. The initial pin was inserted percutaneously placed and the pin medical driver was used to drive the inferior pin using fluoroscopic guidance into the appropriate position. The appropriate position was verified on the AP we then confirmed it on the lateral. Once we're happy with the position of our initial pin an incision was made in line with the pin and the parallel pin guide were used to place the 2 superior pins along the anterior and posterior cortex of the femoral neck. Once all 3 pins were placed just beneath the subchondral bone of the femoral head the depth gauge was used to measure the length. The inferior screw was 80 mm, the anterior-superior screws was 80 mm and the posterior-superior screws was 75 mm . The drill was then used to perforate the lateral cortex. All 3 screws were then placed under fluoroscopic guidance and final tightening was done by hand. Final x-rays were then taken to verify the position of the screws and the final reduction. Copious irrigation was then used to irrigate out the wound. The wound was closed using 2-0 Vicryl and 4-0 Monocryl with Steri-Strips. A sterile dressing was placed with Xeroform. Patient was then awakened by anesthesia and transferred to the PACU for recovery. Post op plan PT: WBAT DVT ppx: ASA 81mg twice daily for 4 weeks Follow up: 2 weeks for wound check - Complications No intraoperative complications - Admit VTE Documentation VTE Present on Admission: No VTE Mechan Device Prophylaxis: SCD's, Thigh High WANDA Hose VTE Pharm Prophylaxis ordered?: Yes
--- NOTE | 2020-02-07 09:09 | RAD_ITS ---
STUDY: X-RAY - PELVIS AND LEFT HIP REASON FOR EXAM: Female, 59 years old. post op left hip TECHNIQUE: 3 views of the pelvis and hip. COMPARISON: 02/06/2020 FINDINGS: There is a non-specific bowel gas pattern. Normal visualized soft tissue structures. Normal bilateral iliac wings, sacroiliac joints and visualized sacrum. Normal bilateral superior and inferior pubic rami. Normal pubic symphysis. Normal bilateral ischial tuberosities. Interval percutaneous fixation of fracture the femoral neck with 3 screws. Normal acetabulum. Normal hip joint. RAD/Hip Min 2 Views (Portable) IMPRESSION: Interval percutaneous fixation of fracture the left femoral neck with 3 screws. Electronically Signed: Mateusz Sewell MD at 10:11 EDT Tel , Service support ,
--- NOTE | 2020-02-07 09:33 | SUR.PHASEI ---
DR SANDS ADVISED OF BS OF 254, NO COVERAGE IN PACU PER DR. SANDS.
[2020-02-07 09:35] LABS: Bedside Glucose 254 mg/dL (70-110)
[2020-02-07 11:36] LABS: Bedside Glucose 313 mg/dL (70-110)
--- NOTE | 2020-02-07 12:19 | PN_ITS ---
Patient Problems: Active and Suspected Problems (Last Reviewed 07/30/19 @ 08:[address] Adam Alvarado MD) Fracture of femoral neck, left (Acute) Subjective: Doing well after surgery no pain currently. No issues overnight Vitals/I&O's: Vital Signs Temp Pulse Resp BP Pulse Ox 98.1 F 74 16 121/58 H 99 02/07/20 10:28 02/07/20 10:28 02/07/20 10:28 02/07/20 10:28 02/07/20 11:15 Oxygen Flow Rate (L/min) 2 Oxygen Delivery Method Nasal Cannula Weight: 143 lb Body Mass Index (BMI) 25.3 Intake and Output for Last 24 Hours 02/05/20 02/06/20 02/07/20 23:59 23:59 23:59 Intake Total 1400 / 1400 510 / 510 Output Total 700 / 700 1050 / 1050 Balance 700 / 700 -540 / -540 General: Alert, Oriented x3, Cooperative, No apparent distress HEENT: Atraumatic, PERRLA, EOMI, Normocephalic Oral: Moist Mucosa Neck: Supple, No JVD Lungs: Clear to auscultation, Normal air movement, No rhonchi, No wheeze, No rales, Diminished Cardiovascular: Regular rate, Regular Rhythm, Normal S1, Normal S2, No murmurs Abdomen: Soft, Non Tender, Non-Distended, No Hepato-splenomegaly Extremities: No edema, Capillary Refill Less than 3 Seconds Skin: No rashes, No breakdown, clean dry and intact from surgery Musculoskeletal: Tenderness - To palpation of the left hip Neurological: Neuro grossly intact, Sensory exam intact to light touch and pain Psych/Mental Status: Normal Affect, Appropriate Laboratory Results 02/06/20 10:45: Hemoglobin A1c 11.1 H 02/06/20 16:15: POC Glucose 208 H 02/06/20 21:47: POC Glucose 303 H 02/07/20 05:54: POC Glucose 235 H 02/07/20 06:20: WBC 7.7, RBC 4.87, Hgb 13.6, Hct 40.3, MCV 82.8, MCH 27.9, MCHC 33.7, RDW Std Deviation 37.0, RDW Coeff of Shameka 12.2, Plt Count 190, MPV 10.4, Immature Gran % (Auto) 0.300, Neut % (Auto) 43.4 L, Lymph % (Auto) 47.9 H, Glenn % (Auto) 5.1, Eos % (Auto) 3.0, Baso % (Auto) 0.3, Absolute Neuts (auto) 3.4, Absolute Lymphs (auto) 3.69, Nucleated RBC % 0 02/07/20 06:20: Sodium 136, Potassium 4.0, Chloride 102, Carbon Dioxide 30.0, Anion Gap 4 L, BUN 16, Creatinine 0.92, Estim Creat Clear Calc 53.12, Est GFR (MDRD) Af Amer 79, Est GFR (MDRD) Non-Af 65, BUN/Creatinine Ratio 17.3, Glucose 260 H, Calcium 8.7 02/07/20 09:31: POC Glucose 254 H 02/07/20 11:29: POC Glucose 313 H Current Medications Acetaminophen (Tylenol) 650 mg PO Q6H PRN PRN PRN Reason: Pain Score 1-10/Temp > 100.7 F Last Admin: 02/06/20 21:34 Dose: 650 mg Documented by: Aspirin (Aspirin, Baby) 81 mg PO BIDCM [facility]HEL Atorvastatin Calcium (Lipitor) 40 mg PO QHS [facility] Dextrose (D50w Syringe) 0 gm IV X1 PRN; Protocol PRN Reason: Hypoglycemia Famotidine (Pepcid) 20 mg PO DAILY [facility] Glucagon () 1 mg IM .X1 PRN PRN Reason: Hypoglycemia Hydrochlorothiazide (Hctz) 25 mg PO DAILY [facility] Sodium Chloride () 250 mls @ 15 mls/hr IV .[id number] PRN PRN Reason: Saline Flush Sodium Chloride () 250 mls @ 15 mls/hr IV .[id number] PRN PRN Reason: Additional IVPB Infusion Lactated Ringer's () 1,000 mls @ 125 mls/hr IV .Q8H [facility] Cefazolin Sodium () 1 gm in 50 mls @ 150 mls/hr IV Q8H [facility] Stop: 02/08/20 00:19 Insulin Glargine (Lantus ([facility])) 39 units SC QHS [facility] Last Admin: 02/06/20 21:55 Dose: Not Given Documented by: Insulin Human Lispro (Humalog Kwikpen ([facility])) 0 unit SC ACHS [facility]; Protocol Last Admin: 02/07/20 05:56 Dose: Not Given Documented by: Insulin Human Lispro (Humalog Kwikpen ([facility])) 5 unit SC TIDAC [facility] Last Admin: 02/07/20 05:57 Dose: Not Given Documented by: Ketorolac Tromethamine (Toradol (Bk)) 15 mg IV Q6H PRN PRN PRN Reason: Pain Score 1-5/10 Lisinopril (Zestril) 20 mg PO DAILY [facility] Melatonin (Melatonin) 3 mg PO QHS PRN PRN PRN Reason: INSOMNIA Last Admin: 02/06/20 21:34 Dose: 3 mg Documented by: Metoprolol Succinate (Toprol Xl (Beta Sudha)) 50 mg PO DAILY [facility] Last Admin: 02/07/20 05:58 Dose: 50 mg Documented by: Morphine Sulfate () 2 mg IV Q3H PRN PRN PRN Reason: Pain Score 6-10/10 Last Admin: 02/07/20 06:03 Dose: 2 mg Documented by: Ondansetron HCl (Zofran) 4 mg IV Q8H PRN PRN PRN Reason: NAUSEA/VOMITING Last Admin: 02/07/20 06:03 Dose: 4 mg Documented by: Oxycodone HCl (Oxyir) 5 mg PO Q4H PRN PRN PRN Reason: Pain Score 4-10/10 Last Admin: 02/06/20 21:34 Dose: 5 mg Documented by: Pantoprazole Sodium (Protonix) 40 mg PO DAILY [facility] Senna/Docusate Sodium (Senokot-S, Svetlana-Colace) 2 tablet PO BID [facility] Sodium Chloride () 10 - 40 ml IV UD PRN PRN Reason: SALINE FLUSH Last Admin: 02/07/20 06:03 Dose: 10 ml Documented by: STROKE Vital Signs/Narrative: Vital Signs Temp Pulse Resp BP Pulse Ox 02/07/20 11:15 99 02/07/20 10:28 98.1 F 74 16 121/58 H 98 02/07/20 10:00 97.2 F L 78 16 143/84 H 95 02/07/20 09:59 87 16 160/76 H 98 02/07/20 09:45 97 16 160/76 H 100 02/07/20 09:35 86 16 149/69 H 99 02/07/20 09:21 96.6 F L 107 H 16 126/107 H 98 Medical Necessity - Tobacco Use Smoking Status: Former smoker Tobacco Use: Non-smoker Assessment/Plan All Active Problems (Last Reviewed 07/30/19 @ 08:[address] Adam Alvarado MD) Fracture of femoral neck, left (Acute) Contusion of right knee, initial encounter (Acute) Contusion of right elbow, initial encounter (Acute) 1. Acute nondisplaced fracture of the femoral neck on the left secondary to mechanical fall status post repair 02/07/2020 -Surgery went well, plan to get her up to the chair today with therapy -Pain meds available -Surgical risk calculator on the chart -PT/OT 2. DM 2 -A1c is 11.1 -We will continue with her home insulin and will add mealtimes and a sliding scale, her blood sugar is elevated today because she did not get her long-acting last night since she is can be n.p.o. for surgery and she did not receive any insulin this morning. -We will hold her oral hypoglycemics -Accu-Cheks AC at bedtime 3. HTN/HLD -Had a stress test few years ago which was nonischemic -EKG is unremarkable -Continue with her blood pressure medications -Continue with her Crestor 4. GERD -Stable -Continue with PPI DVT: Aspirin twice daily per Ortho Inpatient E&M: 09254 Subs Hosp L2
[2020-02-07] MEDS: Insulin Lispro 100 UNIT/ML INSULN.PEN SC ×4 (12:36→21:32)
[2020-02-07] MEDS: hydroCHLOROthiazide 25 MG Tablet PO (12:39)
[2020-02-07] MEDS: Pantoprazole Sodium 40 MG Tablet PO (12:39)
[2020-02-07] MEDS: Lisinopril 20 MG Tablet PO (12:39)
[2020-02-07] MEDS: Senna/Docusate Sodium 1 Tablet 2 TABLET PO ×2 (12:43→21:28)
[2020-02-07] MEDS: Famotidine 20 MG Tablet PO (12:43)
[2020-02-07] MEDS: Lactated Ringers 1,000 ML 125 ML IV (12:49)
[2020-02-07] MEDS: oxyCODONE 5 MG Tablet PO ×2 (13:00→18:55)
[2020-02-07] MEDS: Cefazolin 1 GM/50 ML BAG IV ×2 (15:23→23:19)
[2020-02-07] MEDS: Ketorolac 15 MG/ML Vial IV (15:24)
--- NOTE | 2020-02-07 15:35 | NURSING ---
This nurse emptied chan for 125ml of tea colored urine. Arrived to floor alittle after 10 and has been drinking water frequently, has drank at least one jug full. This nurse notified Dr. Topete that pt only produced 125ml of urine since arrived to floor at 10. Dr. Topete wants to continue to monitor output and encourage fluids.
--- NOTE | 2020-02-07 15:40 | NURSING ---
pt assisted to dangle at edge of bed. Stood up, passed flatus and burping. Sitting in chair now. Call light in reach.
[2020-02-07 17:10] LABS: Bedside Glucose 146 mg/dL (70-110)
[2020-02-07] MEDS: Aspirin 81 MG TAB.CHEW PO (18:04)
[2020-02-07] MEDS: 0.9% Normal Saline 1,000 ML 100 ML IV (21:15)
[2020-02-07] MEDS: Atorvastatin Calcium 40 MG Tablet PO (21:28)
[2020-02-07] MEDS: MELATONIN 3 MG TABLET PO (21:40)
[2020-02-07 21:50] LABS: Bedside Glucose 171 mg/dL (70-110)
[2020-02-07] MEDS: BENZOCAINE/MENTHOL 1 LOZENGE MUCOUS MEM (22:07)
[2020-02-08 02:30] VITALS: BP 138/71; PULSE 78; RESP 16; TEMP 36.6; O2SAT 96
[2020-02-08] MEDS: oxyCODONE 5 MG Tablet PO ×2 (05:43→12:22)
[2020-02-08] MEDS: Acetaminophen 325 MG Tablet 650 MG PO ×2 (05:44→16:01)
[2020-02-08 05:47] LABS: Hematocrit 34.8 % (37-47); Hemoglobin 11.9 g/dL (12.0-15.0); Mean Corp Hgb Conc 34.2 g/dL (32-36); Mean Corpuscular Hgb 28.7 pg (27.0-32.0); Mean Corpuscular Volume 84.1 fL (81-99); Platelet Count 158 K/mm3 (150-450); RBC Distribution Width CV 12.1 % (11.6-14.6); RBC Distribution Width SD 36.8 fl (35.1-43.9); Red Blood Count 4.14 M/mm3 (4.2-5.4); White Blood Count 9.8 K/mm3 (4.4-11.0)
[2020-02-08 06:25] LABS: Anion Gap 3 (5-15); BUN 12 mg/dL (7-18); BUN/Creat Ratio 13.1 RATIO (10-20); Calcium,Total 7.9 mg/dL (8.5-10.1); Chloride 103 mmol/L (98-107); Creatinine, Serum 0.92 mg/dL (0.55-1.02); EST Glomerular Filtration Rate 66 mL/min (>60); Est Glom Filt Rate - Afr Amer 80 mL/min (>60); Estimated Creatinine Clearance 53.12 ml/min; Glucose 228 mg/dL (74-106); Potassium 4.1 mmol/L (3.5-5.1); Sodium Level 135 mmol/L (136-145)
[2020-02-08 07:16] VITALS: O2SAT 95
[2020-02-08] MEDS: Insulin Lispro 100 UNIT/ML INSULN.PEN SC ×4 (08:15→11:09)
[2020-02-08 08:19] VITALS: BP 118/58; PULSE 74
[2020-02-08] MEDS: Famotidine 20 MG Tablet PO (08:19)
[2020-02-08] MEDS: Metoprolol(XL)Succ 50 MG Tablet PO (08:19)
[2020-02-08] MEDS: Senna/Docusate Sodium 1 Tablet 2 TABLET PO (08:19)
[2020-02-08] MEDS: Pantoprazole Sodium 40 MG Tablet PO (08:19)
[2020-02-08] MEDS: Aspirin 81 MG TAB.CHEW PO ×2 (08:20→16:01)
[2020-02-08 08:28] VITALS: BP 118/58; PULSE 74; RESP 18; TEMP 36.8; O2SAT 92
[2020-02-08 08:30] LABS: Bedside Glucose 240 mg/dL (70-110)
[2020-02-08 11:15] LABS: Bedside Glucose 250 mg/dL (70-110)
--- NOTE | 2020-02-08 13:37 | PCM.PN.ORT ---
Patient Problems: Active and Suspected Problems (Last Reviewed 07/30/19 @ 08:[address] Adam Alvarado MD) Fracture of femoral neck, left (Acute) Subjective: Patient lying in bed sleeping. Patient was very easy to awake. Patient states her pain is been very well managed. She denies chest pain, shortness of breath, calf pain. Patient denies any nausea. Patient denies any other complaints at this time. States she is ready for discharge home. Objective: Dressings clean dry intact. Patient is quite tender to palpation over the left side. However is very compressible. She has good flexion-extension of the knee ankle and foot of the left leg. No calf pain. Neurovascular she is otherwise intact. I reviewed the labs and vitals all noted in the medical record. Symptoms of DVT. Patient is afebrile. - Physical Exam Vitals/I&O's: Vital Signs Temp Pulse Resp BP Pulse Ox 98.2 F 74 18 118/58 L 92 02/08/20 08:28 02/08/20 08:28 02/08/20 08:28 02/08/20 08:28 02/08/20 08:28 Oxygen Flow Rate (L/min) 2 Oxygen Delivery Method Room Air Weight: 64.864 kg Body Mass Index (BMI) 25.3 Intake and Output for Last 24 Hours 02/06/20 02/07/20 02/08/20 23:59 23:59 23:59 Intake Total 1400 / 1400 3887.33 / 3887.33 1670 / 1670 Output Total 700 / 700 1550 / 1550 1000 / 1000 Balance 700 / 700 2337.33 / 2337.33 670 / 670 General: Alert, Oriented x3, Cooperative HEENT: PERRLA Oral: Moist Mucosa Neurological: Cranial nerves II-XII grossly intact Psych/Mental Status: Normal Affect, Alert and oriented to time, place, person, mood and affect Laboratory Results 02/07/20 17:04: POC Glucose 146 H 02/07/20 21:31: POC Glucose 171 H 02/08/20 05:25: WBC 9.8, RBC 4.14 L, Hgb 11.9 L, Hct 34.8 L, MCV 84.1, MCH 28.7, MCHC 34.2, RDW Std Deviation 36.8, RDW Coeff of Shameka 12.1, Plt Count 158, MPV 10.0 02/08/20 05:25: Sodium 135 L, Potassium 4.1, Chloride 103, Carbon Dioxide 29.0, Anion Gap 3 L, BUN 12, Creatinine 0.92, Estim Creat Clear Calc 53.12, Est GFR (MDRD) Af Amer 80, Est GFR (MDRD) Non-Af 66, BUN/Creatinine Ratio 13.1, Glucose 228 H, Calcium 7.9 L 02/08/20 08:13: POC Glucose 240 H 02/08/20 11:07: POC Glucose 250 H Current Medications Acetaminophen (Tylenol) 650 mg PO Q6H PRN PRN PRN Reason: Pain Score 1-10/Temp > 100.7 F Last Admin: 02/08/20 05:44 Dose: 650 mg Documented by: Aspirin (Aspirin, Baby) 81 mg PO BIDCM [facility] Last Admin: 02/08/20 08:20 Dose: 81 mg Documented by: Atorvastatin Calcium (Lipitor) 40 mg PO QHS [facility] Last Admin: 02/07/20 21:28 Dose: 40 mg Documented by: Dextrose (D50w Syringe) 0 gm IV X1 PRN; Protocol PRN Reason: Hypoglycemia Famotidine (Pepcid) 20 mg PO DAILY [facility] Last Admin: 02/08/20 08:19 Dose: 20 mg Documented by: Glucagon () 1 mg IM .X1 PRN PRN Reason: Hypoglycemia Hydrochlorothiazide (Hctz) 25 mg PO DAILY [facility] Last Admin: 02/07/20 12:39 Dose: 25 mg Documented by: Sodium Chloride () 250 mls @ 15 mls/hr IV .[id number] PRN PRN Reason: Saline Flush Sodium Chloride () 250 mls @ 15 mls/hr IV .[id number] PRN PRN Reason: Additional IVPB Infusion Insulin Glargine (Lantus (Bkc)) 39 units SC QHS [facility] Last Admin: 02/07/20 21:31 Dose: 39 units Documented by: Insulin Human Lispro (Humalog Kwikpen (Bkc)) 0 unit SC ACHS [facility]; Protocol Last Admin: 02/08/20 11:08 Dose: 4 units Documented by: Insulin Human Lispro (Humalog Kwikpen (Bkc)) 5 unit SC TIDAC [facility] Last Admin: 02/08/20 11:09 Dose: 5 units Documented by: Ketorolac Tromethamine (Toradol (Bkc)) 15 mg IV Q6H PRN PRN PRN Reason: Pain Score 1-5/10 Last Admin: 02/07/20 15:24 Dose: 15 mg Documented by: Lisinopril (Zestril) 20 mg PO DAILY [facility] Last Admin: 02/07/20 12:39 Dose: 20 mg Documented by: Melatonin (Melatonin) 3 mg PO QHS PRN PRN PRN Reason: INSOMNIA Last Admin: 02/07/20 21:40 Dose: 3 mg Documented by: Metoprolol Succinate (Toprol Xl (Beta Sudha)) 50 mg PO DAILY [facility] Last Admin: 02/08/20 08:19 Dose: 50 mg Documented by: Morphine Sulfate () 2 mg IV Q3H PRN PRN PRN Reason: Pain Score 6-10/10 Last Admin: 02/07/20 06:03 Dose: 2 mg Documented by: Ondansetron HCl (Zofran) 4 mg IV Q8H PRN PRN PRN Reason: NAUSEA/VOMITING Last Admin: 02/07/20 06:03 Dose: 4 mg Documented by: Oxycodone HCl (Oxyir) 5 mg PO Q4H PRN PRN PRN Reason: Pain Score 4-10/10 Last Admin: 02/08/20 12:22 Dose: 5 mg Documented by: Pantoprazole Sodium (Protonix) 40 mg PO DAILY [facility] Last Admin: 02/08/20 08:19 Dose: 40 mg Documented by: Senna/Docusate Sodium (Senokot-S, Svetlana-Colace) 2 tablet PO BID [facility] Last Admin: 02/08/20 08:19 Dose: 2 tablet Documented by: Sodium Chloride () 10 - 40 ml IV UD PRN PRN Reason: SALINE FLUSH Last Admin: 02/07/20 15:24 Dose: 10 ml Documented by: Throat Lozenges (Cepacol Sore Throat Lozenge) 1 lozenge MUCOUS MEM Q2H PRN PRN PRN Reason: SORE THROAT Last Admin: 02/07/20 22:07 Dose: 1 lozenge Documented by: Medical Necessity - Tobacco Use Smoking Status: Former smoker Tobacco Use: Non-smoker Assessment/Plan All Active Problems (Last Reviewed 07/30/19 @ 08:[address] Adam Alvarado MD) Fracture of femoral neck, left (Acute) Contusion of right knee, initial encounter (Acute) Contusion of right elbow, initial encounter (Acute) Status post ORIF left hip fracture with percutaneous pinning Plan 1. Continue all pain medications as prescribed 2. Continue physical therapy outpatient, touchdown weightbearing with walker 3. 81 mg aspirin 1 p.o. every 12 hours x30 days for postop DVT prophylaxis 4. Encourage incentive spirometry 5. Discharge home today when cleared with medicine. 6. Shower in 3 days. 7. Remove dressing in 7 days. 8. Follow-up with Dr. Avila as scheduled in 2 weeks
--- NOTE | 2020-02-08 13:45 | CASEMGMT ---
KODI MCKENNA received script for walker. KODI MCKENNA updated patient and she is agreeable to [facility]. Patient states she would like [facility] for outpatient therapy. KODI MCKENNA called [facility] to schedule outpatient therapy. Referral sent to [facility] for walker and arranged for delivery to patient's room.
--- NOTE | 2020-02-08 15:37 | PCM.DC ---
- Discharge Diagnoses Current Active Problems: Current Active and Chronic Problems (Last Reviewed 07/30/19 @ 08:[address] Adam Alvarado MD) Fracture of femoral neck, left (Acute) You will use the following diet at home:: Calorie/Carbohydrate Controlled (specify 1200, 1400, etc) - 1800 kylie Your food should be the consistency of: Regular Your liquids should be the consistency of: Regular/Thin Discharge Activity: Return to Normal Activity Weight Bearing Status: Toe touch weight bearing - with walker left leg Additional Instructions: SHOWER IN 3 DAYS, REMOVE DRESSING IN 7 DAYS, SEE DR AVILA IN 2 WEEKS Allergies/Adverse Reactions: Allergies No Known Allergies Allergy (Verified 02/06/20 09:43) Medications to take at Discharge metoprolol succinate 50 mg tablet,extended release 24 hr 50 mg PO DAILY 30 Days #30 tab 07/12/18 omega-3 acid ethyl esters 1 gram capsule 2 cap PO DAILY cap 05/08/19 omeprazole 40 mg capsule,delayed release 40 mg PO DAILY 05/08/19 Cholecalciferol (Vitamin D3) [Vitamin D3] 2,000 unit PO DAILY 02/06/20 Rosuvastatin Calcium [Crestor] 20 mg PO DAILY 02/06/20 Aspirin [Aspirin, Baby] 81 mg PO BIDCM #1 tab.chew 02/08/20 Insulin NPH Human Isophane [Humulin N] 40 unit SQ BID #3 vial 02/08/20 Lisinopril [Zestril] 20 mg PO DAILY #30 tab 02/08/20 Metformin HCl [Glucophage Xr] 500 mg PO BID 30 Days #60 tab 02/08/20 Oxycodone [Oxyir] 5 mg PO Q4H PRN PRN 7 Days #20 tablet 02/08/20 The following prescriptions were given: Metformin HCl [Glucophage Xr] 500 mg PO BID 30 Days #60 tab Transmission Status: Pending to [id number] Insulin NPH Human Isophane [Humulin N] 40 unit SQ BID #3 vial Transmission Status: Pending to [facility] Oxycodone [Oxyir] 5 mg PO Q4H PRN PRN 7 Days #20 tablet PRN Reason: Pain Score 4-10/10 Transmission Status: Sent to [facility] Lisinopril [Zestril] 20 mg PO DAILY #30 tab Transmission Status: Pending to [facility] Primary Care Physician: Javier Levy MD [Primary Care Provider] - Test Results: Test results from this visit will be discussed in further detail at your follow-up appointment, if applicable. Please Follow Up With: Leah Brice When: Saturday Please Follow Up With: Luke Avila MD or Jose Raul GRANADO When: Saturday
[2020-02-08 16:06] VITALS: BP 150/79; PULSE 81; RESP 18; TEMP 37.3; O2SAT 94
[2020-02-08 16:30] LABS: Bedside Glucose 160 mg/dL (70-110)
--- NOTE | 2020-02-08 18:28 | DS.PCM_ITS ---
Discharge Date and Diagnosis Date of Admission: 02/06/20 Date of Discharge: 02/08/20 - Primary Discharge Diagnosis Acute Problems: #1 acute nondisplaced fracture of the left femoral neck secondary to mechanical fall #2 type 2 diabetes-uncontrolled #3 essential hypertension #4 hyperlipidemia #5 GERD - Secondary Discharge Diagnosis Chronic Problems: Chronic Problems (Last Reviewed 07/30/19 @ 08:[address] 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 Work-up in the emergency room included x-rays which showed the presence of a nondisplaced fracture of the left femoral neck. Patient's labs revealed her blood sugar to be elevated. Patient was admitted to [place] [address] and seen in consultation by orthopedic surgery, she underwent a percutaneous pinning of the left femoral neck fracture. Patient's blood sugars were monitored during her hospitalization and controlled with sliding scale insulin and basilar insulin. On 02/08/2020, patient was seen and examined: On examination she appeared in good health and spirits, she does not appear to be in any distress. Vital signs as documented. Skin warm and dry and without overt rashes. Neck without JVD, thyroid appears normal, trachea is midline, neck is supple. Lungs clear, normal air movement was noted. Heart exam notable for regular rhythm, normal sounds and absence of murmurs, rubs or gallops. Abdomen unremarkable and without evidence of organomegaly, masses, or abdominal aortic enlargement, bowel sounds are present in all 4 quadrants, no abdominal tenderness was noted. Extremities-no lower leg edema was noted bilaterally Neuro: Cranial nerves II through XII are grossly intact, no focal motor deficits were noted, sensation to light touch and pinprick is intact, motor exam 5/5 throughout. Psych: Patient is alert and oriented x3, she does not appear anxious or depressed, she does not appear agitated. On 02/08/2020, patient was seen and examined and felt to be in stable condition for discharge home. - Physical Exam Vitals/I&O's: Vital Signs Temp Pulse Resp BP Pulse Ox 99.1 F 81 18 150/79 H 94 02/08/20 16:06 02/08/20 16:06 02/08/20 16:06 02/08/20 16:06 02/08/20 16:06 Oxygen Flow Rate (L/min) 2 Oxygen Delivery Method Room Air Weight: 64.864 kg Body Mass Index (BMI) 25.3 Intake and Output for Last 24 Hours 02/06/20 02/07/20 02/08/20 23:59 23:59 23:59 Intake Total 1400 / 1400 3887.33 / 3887.33 1670 / 1670 Output Total 700 / 700 1550 / 1550 1000 / 1000 Balance 700 / 700 2337.33 / 2337.33 670 / 670 Laboratory Results 02/07/20 21:31: POC Glucose 171 H 02/08/20 05:25: WBC 9.8, RBC 4.14 L, Hgb 11.9 L, Hct 34.8 L, MCV 84.1, MCH 28.7, MCHC 34.2, RDW Std Deviation 36.8, RDW Coeff of Shameka 12.1, Plt Count 158, MPV 10.0 02/08/20 05:25: Sodium 135 L, Potassium 4.1, Chloride 103, Carbon Dioxide 29.0, Anion Gap 3 L, BUN 12, Creatinine 0.92, Estim Creat Clear Calc 53.12, Est GFR (MDRD) Af Amer 80, Est GFR (MDRD) Non-Af 66, BUN/Creatinine Ratio 13.1, Glucose 228 H, Calcium 7.9 L 02/08/20 08:13: POC Glucose 240 H 02/08/20 11:07: POC Glucose 250 H 02/08/20 16:00: POC Glucose 160 H Discharge Activity: Return to Normal Activity Weight Bearing Status: Toe touch weight bearing - with walker left leg Home Medications: Medications to take at Discharge metoprolol succinate 50 mg tablet,extended release 24 hr 50 mg PO DAILY 30 Days #30 tab 07/12/18 omega-3 acid ethyl esters 1 gram capsule 2 cap PO DAILY cap 05/08/19 omeprazole 40 mg capsule,delayed release 40 mg PO DAILY 05/08/19 Cholecalciferol (Vitamin D3) [Vitamin D3] 2,000 unit PO DAILY 02/06/20 Rosuvastatin Calcium [Crestor] 20 mg PO DAILY 02/06/20 Aspirin [Aspirin, Baby] 81 mg PO BIDCM #1 tab.chew 02/08/20 Insulin NPH Human Isophane [Humulin N] 40 unit SQ BID #3 vial 02/08/20 Lisinopril [Zestril] 20 mg PO DAILY #30 tab 02/08/20 Metformin HCl [Glucophage Xr] 500 mg PO BID 30 Days #60 tab 02/08/20 Oxycodone [Oxyir] 5 mg PO Q4H PRN PRN 7 Days #20 tab 02/08/20 Following Prescriptions Were Given to Patient: Metformin HCl [Glucophage Xr] 500 mg PO BID 30 Days #60 tab Transmission Status: Received by [facility] Insulin NPH Human Isophane [Humulin N] 40 unit SQ BID #3 vial Transmission Status: Received by [facility] Oxycodone [Oxyir] 5 mg PO Q4H PRN PRN 7 Days #20 tab PRN Reason: Pain Score 4-10/10 Transmission Status: Received by [facility] Lisinopril [Zestril] 20 mg PO DAILY #30 tab Transmission Status: Received by [facility] Primary Care Physician: Javier Levy MD [Primary Care Provider] - Please Follow Up With: Leah Brice When: Saturday Please Follow Up With: Luke Avila MD or Jose Raul GRANADO When: Saturday Disposition: Home Minutes spent on discharge:: 32 Patient Condition:: Stable Medical Necessity - Tobacco Use Smoking Status: Former smoker Tobacco Use: Non-smoker Meaningful Use Info Meaningful Use Diagnoses (Choose all that apply): None applicable Inpatient E&M: 67484 Disch Hosp
--- NOTE | 2020-02-09 13:23 | CASEMGMT ---
KODI MCKENNA DC PHONE CALL DC DATE: 02/08/2020 DC DISPOSITION: Home DC DIAGNOSIS: acute nondisplaced fracture LACE/STRATA: 04/02 F/U APPTS MADE PRIOR TO DC: yes PRESCRIPTIONS ACQUIRED BY PT: yes Intro role of CM to patient via phone. Patient states she is doing well at home. She had swelling in her ankle and leg after activity this am. Patient stated that she called Dr. Avila and was told to rest and elevate her leg. Pt had prescriptions filled and has no questions re: instructions. Pt states she appreciated her care and has no care improvement suggestions. Leland ALEXANDER RN ACM
== END 2020-02-08 16:38 | disposition home or self-care (01) | DRG 482 ==
LOC: ED 11:07 → MS3 12:59
PROVIDERS: Anesthesiology; Specialist; Admitting Provider Family Medicine; Emergency Provider Emergency Medicine; PCP Family Medicine; Visit Provider Internal Medicine
PROC: (CPT 27284; principal; 2020-02-07 07:30)
DX: S72.035A Nondisplaced midcervical fracture of left femur, initial encounter for closed fracture (principal); M16.12 Unilateral primary osteoarthritis, left hip; W11.XXXA Fall on and from ladder, initial encounter; Y93.9 Activity, unspecified; Y92.512 Supermarket, store or market as the place of occurrence of the external cause; Z91.19 Patient's noncompliance with other medical treatment and regimen; E11.65 Type 2 diabetes mellitus with hyperglycemia; E78.5 Hyperlipidemia, unspecified; E11.42 Type 2 diabetes mellitus with diabetic polyneuropathy; I10 Essential (primary) hypertension; E55.9 Vitamin D deficiency, unspecified; K21.9 Gastro-esophageal reflux disease without esophagitis; Z85.828 Personal history of other malignant neoplasm of skin; Z79.84 Long term (current) use of oral hypoglycemic drugs; Z79.4 Long term (current) use of insulin; Z79.82 Long term (current) use of aspirin; Z79.899 Other long term (current) drug therapy; Z87.891 Personal history of nicotine dependence; Z78.0 Asymptomatic menopausal state
CPT/HCPCS: 36415; 51702; 71045; 73502; 73610; 74176; 76000; 80048; 82962; 83036; 85025; 85027; 85610; 85730; 86850; 86900; 86901; 93005; 97161; 97166; 99251; 99285; C1713; C1776; J7030; J7040; J7120; A4216; G0463; J2405

== ENCOUNTER 2020-02-28 15:31 | Emergency (ER) | payer OTHER, SELFPAY ==
[2020-02-07 06:17] VITALS: BMI 25.3
[2020-02-28 15:32] VITALS: BP 119/97; PULSE 98; RESP 18; TEMP 36.3; O2SAT 99; BMI 25.7
--- NOTE | 2020-02-28 17:13 | ED.VIS.GEN ---
History of Present Illness Chief Complaint: Other, Pain/Inj Informant: Patient, Family Narrative: Patient presents to the emergency department for the evaluation of neck pain. Patient recently underwent left hip surgery and was in physical therapy on Saturday. She came home was in her recliner and developed neck pain and states that it is gotten worse every minute since. States she cannot lift her arms above her head. She screams whenever she tries to move her head in any direction or to sit up. She is done ice and heat. She states that nothing in physical therapy to her knowledge would have injured the neck. She denies any neurologic symptoms of the upper extremities. No fevers. Past Medical History - Allergies and Home Meds Allergies/Adverse Reactions: Allergies No Known Allergies Allergy (Verified 02/28/20 15:32) Primary Care Physician: Javier Levy MD [Primary Care Provider] - Surgical History: no surgical history Smoking Status: Former smoker Review of Systems General: Denies: Chills, Fever, Sweats Eyes: Denies: Visual changes - bilaterally, Diplopia ENT: Denies: Rhinorrhea, Sore throat Cardiovascular: Denies: Chest pain, Palpitations Respiratory: Denies: Dyspnea, Cough, Dyspnea on exertion Gastrointestinal: Denies: Abdominal pain, Nausea, Vomiting, Diarrhea, Melena, Hematochezia Genitourinary: Denies: Dysuria, Hematuria, Frequency Musculoskeletal: Reports: Neck pain. Denies: Back pain, Extremity Pain Skin: Denies: Rash, Wounds Neurological: Denies: Headache, Weakness, Numbness Physical Exam Vital Signs/Narrative: Vital Signs Temp Pulse Resp BP Pulse Ox 02/28/20 15:32 97.3 F L 98 18 119/97 H 99 Inital Vital Signs reviewed: Yes General: Well nourished, Well developed, No Acute Distress Head: Normocephalic, Atraumatic Eyes: Perrl, EOMI ENT: Moist mucous membranes, No rhinorrhea Neck: - - Diffuse tenderness palpation throughout the neck musculature bilaterally. No rashes. Cardiovascular: Regular rate, Regular rhythm, No murmurs Respiratory: No distress, CTA bilaterally, Chest nontender Abdomen: Soft, Nontender, Nondistended, Normal bowel sounds Back: Nontender, Normal Inspection Extremities: Nontender, No edema Skin: Normal color, No rash Neurological: Alert, Oriented x3, Cranial nerves II-XII grossly intact, Normal Strength, Normal Sensation, - - Direct testing of the radius ulnar median and deltoid nerves were normal. Psychological: Normal affect, Normal Mood Diagnostic/Tx/Re-eval - Medical Decision Making Patient has oxycodone at home. I am going to write for Flexeril. We do not have a soft collar to put her insulin to recommend they try to procure 1 from pharmacy in [facility]. I would expect her to get better 5 to 7 days. This certainly appears to be a muscular issue. I do not see a need for emergent imaging. There are no red flags for abscess. Normal Neurologic exam. ED Disposition - Plan for ED Patient: Disposition: Home or Assisted Living Diagnosis: Spasm of cervical paraspinous muscle Instructions: ED Spasm Back No Trauma Prescriptions: cycloBENZAPRine HCl [Flexeril] 10 mg PO TID PRN #15 tab PRN Reason: Muscle Spasm Transmission Status: Pending to [facility] Referrals: Javier Levy MD [Primary Care Provider] - 5-7 Days Additional Instructions: Soft collar would probably benefit you. These are generally available at drug stores.
[2020-02-28] MEDS: cycloBENZAPRine HCl 10 MG Tablet PO (18:15)
[2020-02-28] MEDS: oxyCODONE 5 MG Tablet 10 MG PO (18:15)
[2020-02-28 18:17] VITALS: BP 142/85; PULSE 97; RESP 16; O2SAT 97
== END 2020-02-28 18:35 | disposition home or self-care (01) ==
PROVIDERS: Emergency Provider Emergency Medicine; PCP Family Medicine
DX: M62.838 Other muscle spasm (principal); Z87.891 Personal history of nicotine dependence; Z79.82 Long term (current) use of aspirin
CPT/HCPCS: 99283

== ENCOUNTER 2020-03-01 17:39 | Inpatient (IN) | payer OTHER, SELFPAY ==
[2020-03-01 17:39] VITALS: BP 142/88; PULSE 135; RESP 18; TEMP 36.7
[2020-03-01 17:40] VITALS: BP 142/88; PULSE 135; RESP 16; TEMP 36.7; BMI 23.8
--- NOTE | 2020-03-01 18:24 | CT_ITS ---
STUDY: CTA CHEST REASON FOR EXAM: Female, 59 years old. UPPER BACK PAIN RADIATING DOWN R LEG. Recent lt hip surgery. Hx of HTN and diabetes-rx controlled. RADIATION DOSAGE (If Supplied By Facility): CTDIvol = ( 8.46 ) mGy, DLP = ( 880.40 ) mGycm TECHNIQUE: The examination was performed with the intravenous administration of IV 100mL Isovue-370. Post-processing of the angiographic images was performed, with multiplanar reformation and 3D reconstruction. Individualized dose optimization techniques were used for this CT. COMPARISON: Chest x-ray February 06, 2020 FINDINGS: Normal enhancement of the main pulmonary artery and right and left pulmonary arteries. Normal enhancement of the bilateral peripheral pulmonary arteries. There is no demonstrated pulmonary embolism. Normal thoracic aorta and visualized great vessels. There is no demonstrated aortic dissection. There are calcifications of the coronary arteries. Normal mediastinum. Normal hilar regions. Normal visualized trachea and bronchi. The lungs are well expanded. There is mild left mid and lower lung airspace consolidation. Normal pleura. Normal chest wall structures. Normal osseous structures. Normal visualized upper abdomen. CT/CTA Chest W/WO Contrast IMPRESSION: CTA chest examination, without a demonstrated pulmonary embolism or arterial dissection. Mild left infiltrates. Electronically Signed: Deonte Martin MD at 20:43 EDT , Service support ,
--- NOTE | 2020-03-01 18:25 | EKG12_ITS ---
Test Reason : DYSRHYTHMIA Blood Pressure : / mmHG Vent. Rate : 127 BPM Atrial Rate : 127 BPM P-R Int : 152 ms QRS Dur : 076 ms QT Int : 304 ms P-R-T Axes : 041 -49 038 degrees QTc Int : 441 ms Sinus tachycardia Left axis deviation Abnormal ECG Confirmed by KIRAN ARIAS, CARLA ([id number]), marketing editor WASHINGTON MENDOZA ([id number]) on 03/03/2020 10:54:53 AM Referred By: TORIBIO Confirmed By:CARLA BECK MD
--- NOTE | 2020-03-01 18:25 | CT_ITS ---
STUDY: CT ABDOMEN AND PELVIS WITHOUT CONTRAST REASON FOR EXAM: Female, 59 years old. UPPER BACK PAIN RADIATING DOWN R LEG. Recent lt hip surgery. Hx of HTN and diabetes-rx controlled. RADIATION DOSAGE (If Supplied By Facility): CTDIvol = ( 8.46 ) mGy, DLP = ( 880.40 ) mGycm TECHNIQUE: Transaxial images were obtained from the dome of the diaphragm to the symphysis pubis without oral contrast, and without intravenous contrast. Sagittal and coronal images were reconstructed. Individualized dose optimization techniques were used for this CT. COMPARISON: February 06, 2020 FINDINGS: There is lower lung atelectasis. The visualized portions of the heart are within normal limits. There is hepatomegaly with diffuse hepatic enlargement. Normal gallbladder and extrahepatic biliary system. Normal spleen. Normal pancreas. Normal bilateral adrenal glands. There is 0.9 cm cyst of the right kidney. There is a 0.7 cm cyst with calcification of the right kidney. There is 1.6 cm cyst of the left kidney. There is no hydronephrosis. Normal visualized stomach. Normal small intestine. Normal colon. The appendix is visualized and appears normal. There is diffuse atherosclerotic calcification of the abdominal aorta, without a demonstrated aneurysm. Normal inferior vena cava. Normal retroperitoneum. Normal urinary bladder. Normal visualized uterus. Normal abdominal wall. There is left hip pinning. There are mild degenerative changes of the spine. There is left pars interarticularis defect of L5 CT/Abdomen/Pelvis W IV Cont ONLY IMPRESSION: Bilateral renal cysts. Calcification within right renal cyst. No hydronephrosis. Hepatomegaly. No biliary dilatation. Electronically Signed: Deonte Martin MD at 20:35 EDT , Service support ,
--- NOTE | 2020-03-01 18:26 | ED.DCSUM_ITS ---
History of Present Illness Chief Complaint: Back Narrative: Patient is a 59-year-old female who presents with back pain. She had a mechanical fall on February 06. She had a left hip fracture. She was admitted and did undergo surgery. After discharge she developed neck pain. This was positional. It was worse with lifting her arms overhead. She was seen in the emergency department at that time. She had Flexeril added on. She presents today with back pain drastic level all the way down to the buttocks. She states her pain begins in the posterior thorax at about the midclavicular line on both sides but not in the midline and that this travels all the way down her back to about the level of the buttocks. She currently rates this as 8 out of 10. Her visitor is also concerned about her decreased oral intake and that she seems to be somewhat groggy with the medication she is on. Past Medical History - Allergies and Home Meds Allergies/Adverse Reactions: Allergies No Known Allergies Allergy (Verified 02/28/20 15:32) Primary Care Physician: Javier Levy MD [Primary Care Provider] - Past Medical History: - - Diabetes, hypertension, hyperlipidemia Surgical History: - - Percutaneous pinning of left femoral neck fracture. Smoking Status: Former smoker Review of Systems All systems negative except as indicated General: Denies: Fever Eyes: Denies: Visual changes - bilaterally ENT: Denies: Bilateral ear pain Cardiovascular: Denies: Chest pain Respiratory: Reports: Dyspnea Gastrointestinal: Reports: Abdominal pain Musculoskeletal: Reports: Back pain Skin: Denies: Rash Neurological: Denies: Headache Hematologic: Denies: Easy bruising Allergy: Denies: Uticaria Physical Exam Vital Signs/Narrative: Vital Signs Temp Pulse Resp BP 03/01/20 17:40 98.0 F 135 H 16 142/88 H 03/01/20 17:39 98.0 F 135 H 18 142/88 H Inital Vital Signs reviewed: Yes General: Well nourished, Well developed Head: Normocephalic Eyes: EOMI ENT: Moist mucous membranes Neck: Supple Cardiovascular: Regular rhythm, Tachycardia Respiratory: No distress, CTA bilaterally Abdomen: Soft, - - Patient does have left-sided abdominal tenderness without g uarding without rebound Back: - - Patient has bilateral paraspinal tenderness including the thoracic and lumbar spine she does not have midline tenderness Extremities: No edema Skin: Normal color Neurological: - - Patient is drowsy. She answers questions appropriately. Psychological: Normal affect Diagnostic/Tx/Re-eval Impressions Chest CTA 03/01/20 18:24 IMPRESSION: CTA chest examination, without a demonstrated pulmonary embolism or arterial dissection. Mild left infiltrates. Electronically Signed: Deonte Martin MD at 20:43 EDT , Service support , Abdomen/Pelvis CT 03/01/20 18:25 IMPRESSION: Bilateral renal cysts. Calcification within right renal cyst. No hydronephrosis. Hepatomegaly. No biliary dilatation. Electronically Signed: Deonte Martin MD at 20:35 EDT , Service support , 03/01/20 18:24 CTA Chest W/WO Contrast [CT] Stat 03/01/20 18:25 CT Abd [Abdomen/Pelvis W IV Cont ONLY] [CT] Stat Laboratory Results 03/01/20 03/01/20 03/01/20 19:10 19:10 19:10 WBC 12.9 H RBC 4.99 Hgb 13.8 Hct 41.8 MCV 83.8 MCH 27.7 MCHC 33.0 RDW Std Deviation 37.7 RDW Coeff of Shameka 12.5 Plt Count 289 MPV 9.8 Immature Gran % (Auto) 0.300 Neut % (Auto) 84.0 H Lymph % (Auto) 11.7 L [place] % (Auto) 3.6 Eos % (Auto) 0.2 Baso % (Auto) 0.2 Absolute Neuts (auto) 10.9 H Absolute Lymphs (auto) 1.51 Nucleated RBC % 0 PT 14.4 INR 1.2 Sodium 133 L Potassium 3.8 Chloride 97 L Carbon Dioxide 28.0 Anion Gap 8 BUN 14 Creatinine 0.93 Estim Creat Clear Calc 52.55 Est GFR (MDRD) Af Amer 78 Est GFR (MDRD) Non-Af 65 BUN/Creatinine Ratio 15.0 Glucose 330 H Calcium 9.4 - Medical Decision Making Patient was given IV morphine and Zofran. She is resting comfortably on reevaluation. EKG shows sinus tachycardia at a rate of 127. Labs notable for mild leukocytosis. CT angiogram of the chest and CT abdomen were obtained due to her chest pain and abdominal pain. No pulmonary embolism or arterial dissection is noted, no acute intra-abdominal findings. Patient does have left- sided infiltrates. She was given IV Levaquin. On recheck she is still ta chycardic and her pulse oximetry is 90% on room air. Therefore I do feel she would benefit from hospitalization. Patient will be discussed with the hospitalist and admitted. ED Disposition - Plan for ED Patient: Disposition: Acute Care Hospital [facility] Diagnosis: Pneumonia, Back pain Referrals: Javier Levy MD [Primary Care Provider] -
[2020-03-01 19:26] LABS: Absolute Lymphocyte Count 1.51 X10^3/uL (0.83-4.51); Absolute Neutrophil Count 10.9 X10^3/uL (2.0-7.7); Basophil# 0.03 X10^3/uL; Basophil% 0.2 % (0-1); Eosinophil# 0.02 X10^3/uL; Eosinophils% 0.2 % (0-5); Hematocrit 41.8 % (37-47); Hemoglobin 13.8 g/dL (12.0-15.0); Lymphocyte # 1.51 X10^3/ul (4.0); Lymphocyte % 11.7 % (19-41); Mean Corpuscular Hgb 27.7 pg (27.0-32.0); Mean Corpuscular Volume 83.8 fL (81-99); Mean Platelet Vol. 9.8 fl (6.2-12.0); Monocyte# 0.47 X10^3/uL; Monocyte% 3.6 % (0-10); NRBC Flagged by Analyzer 0 % (0-5); Neutrophil # 10.87 X10^3/uL (2.7-7.7); Platelet Count 289 K/mm3 (150-450); RBC Distribution Width CV 12.5 % (11.6-14.6); RBC Distribution Width SD 37.7 fl (35.1-43.9); Red Blood Count 4.99 M/mm3 (4.2-5.4); White Blood Count 12.9 K/mm3 (4.4-11.0)
[2020-03-01 19:38] LABS: International Normalized Ratio 1.2; Prothrombin Time (Protime)PT. 14.4 SECONDS (11.7-14.9)
[2020-03-01 19:51] LABS: Anion Gap 8 (5-15); BUN 14 mg/dL (7-18); Calcium,Total 9.4 mg/dL (8.5-10.1); Chloride 97 mmol/L (98-107); Creatinine, Serum 0.93 mg/dL (0.55-1.02); EST Glomerular Filtration Rate 65 mL/min (>60); Est Glom Filt Rate - Afr Amer 78 mL/min (>60); Estimated Creatinine Clearance 52.55 ml/min; Glucose 330 mg/dL (74-106); Potassium 3.8 mmol/L (3.5-5.1); Sodium Level 133 mmol/L (136-145)
[2020-03-01] MEDS: Morphine 2 MG/ML Syringe IV (20:14)
[2020-03-01] MEDS: Ondansetron 4 MG/2 ML Vial IV (20:14)
[2020-03-01 20:18] VITALS: BP 154/84
[2020-03-01 21:26] VITALS: PULSE 125; RESP 20; O2SAT 90
--- NOTE | 2020-03-01 21:33 | HP.PCM_ITS ---
Problem List (1) Intractable low back pain Status: Acute (2) Pulmonary contusion Status: Acute (3) Sepsis Status: Acute (4) Pneumonia Status: Acute (5) Back pain Status: Acute (6) Noncompliance with diabetes treatment Status: Chronic (7) Mixed hyperlipidemia Status: Chronic (8) Benign essential hypertension Status: Chronic (9) Polyneuropathy due to type 2 diabetes mellitus Status: Chronic (10) Diabetes mellitus Status: Chronic Qualifiers: Diabetes mellitus type: type 2 Diabetes mellitus terminologist insulin use: with terminologist use Diabetes mellitus complication status: with hyperglycemia Qualified Code(s): E11.65 - Type 2 diabetes mellitus with hyperglycemia; 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 Her pain is excruciating. It is nonradiating. It is aggravated by movement and it improves with staying still. She reports her pain as spasms. Reportedly her home Flexeril does not help with her pain. At home Flexeril only makes her groggy. She tried ice and heat at home. However she did not have relief from ice and heat since it was not applied for long. At the emergency part the patient was found to have a tachycardia even after IV fluids administration. On room air her oxygen saturation was 90% so a decision was made to admit patient. A chest CTA was interpreted as mild left infiltrates. Patient was diagnosed with sepsis secondary to pneumonia at emergency department and sepsis work-up initiated. Of note patient fell from a ladder at work. She developed acute nondisplaced left femoral neck fracture; and had left hip pinning on 02/07/2020. She was discharged from hospital on 02/08/2020. She presented to emergency department on 02/28/2020 because of neck pain. She was prescribed Flexeril and discharged home.. Past Medical History Past Medical History (Chronic Problems): Chronic Problems (Last Reviewed 03/01/20 @ 23:[address] Christophe Nowak MD) Noncompliance with diabetes treatment (Chronic) Mixed hyperlipidemia (Chronic) Benign essential hypertension (Chronic) Polyneuropathy due to type 2 diabetes mellitus (Chronic) Diabetes mellitus (Chronic) Medical History: Medical History (Last Reviewed 03/02/20 @ 02:[address] Christophe Nowak MD) Cancer C80.1 Diabetes E11.9 H/O transfusion of whole blood Z92.89 Hyperlipidemia E78.5 Liver disease K76.9 Neuropathy G62.9 Shortness of breath R06.02 Skin cancer C44.90 Vitamin D deficiency E55.9 Chronic headaches R51 Hypertension I10 Allergies No Known Allergies Allergy (Verified 02/28/20 15:32) Home Medications: Ambulatory Orders Medication Instructions Recorded metoprolol succinate 50 mg 50 mg PO DAILY 30 Days #30 tab 07/12/18 tablet,extended release 24 hr omega-3 acid ethyl esters 1 gram 2 cap PO DAILY cap 05/08/19 capsule omeprazole 40 mg capsule,delayed 40 mg PO DAILY 05/08/19 release Cholecalciferol (Vitamin D3) 2,000 unit PO DAILY 02/06/20 [Vitamin D3] Rosuvastatin Calcium [Crestor] 20 mg PO DAILY 02/06/20 Aspirin [Aspirin, Baby] 81 mg PO BIDCM #1 tab.chew 02/08/20 Insulin NPH Human Isophane 40 unit SQ BID #3 vial 02/08/20 [Humulin N] Lisinopril [Zestril] 20 mg PO DAILY #30 tab 02/08/20 Metformin HCl [Glucophage Xr] 500 mg PO BID 30 Days #60 tab 02/08/20 cycloBENZAPRine HCl [Flexeril] 10 mg PO TID PRN #15 tab 02/28/20 Surgical History: Surgical History (Last Reviewed 03/02/20 @ 02:[address] Christophe Nowak MD) H/O: Z98.891 1995 Status post surgical removal of malignant neoplasm of skin Z98.890 Surgical History: - - Percutaneous pinning of left femoral neck fracture. Smoking Status: Former smoker - *Family History Maternal Family History: Family History (Last Reviewed 03/02/20 @ 02:[address] Christophe Nowak MD) Father Arthritis Diabetes Myocardial infarction, Onset Age: 63 Heart disease Hypertension Sister Arthritis Diabetes Brother Diabetes Mental disorder Mother Hypertension Migraines Cerebral hemorrhage Review of Systems Constitutional: Denies: Chills, Fever, Weight Change HEENT: Denies: Head Aches, Sinus Congestion, Sinus Drainage Cardiovascular: Denies: Chest Pain, Palpitations Respiratory: Denies: Cough, Shortness of breath at rest, Sputum production Gastrointestinal: Denies: Abdominal Pain, Nausea, Vomiting Genitourinary: Denies: Dysuria Musculoskeletal: Reports: Back Pain, Muscle pain. Denies: Joint Pain, Joint Tenderness Skin: Denies: Rash, Wounds Neurological: Denies: Numbness, Tingling, Focal weakness Psychiatric: Denies: Anxiety, Depression, Homicidal Ideations, Suicidal Ideations Hematologic/ Lymphatic: Denies: Easy Bruising, Easy Bleeding VTE Information - Inpt Only VTE Present on Admission: No VTE Mechan Device Prophylaxis: SCD's VTE Pharm Prophylaxis ordered?: No Patient Problems: Active and Suspected Problems (Last Reviewed 03/01/20 @ 23:[address] Christophe Nowak MD) Pneumonia (Acute) Back pain (Acute) Intractable low back pain (Acute) Pulmonary contusion (Acute) Sepsis (Acute) - Physical Exam Vitals/I&O's: Vital Signs Temp Pulse Resp BP Pulse Ox 98.0 F 125 H 20 H 154/84 H 90 03/01/20 17:40 03/01/20 21:26 03/01/20 21:26 03/01/20 20:18 03/01/20 21:26 Oxygen Delivery Method Room Air Weight: 61.1 kg Body Mass Index (BMI) 23.8 General: Alert, Oriented x3, Cooperative, - - In acute distress secondary to pain. HEENT: Atraumatic, PERRLA, EOMI, Normocephalic Neck: Supple, No JVD, Negative Carotid Bruits Lungs: Clear to auscultation, Normal air movement Cardiovascular: Regular rate, No murmurs Abdomen: Bowel Sounds Present, Soft, Non Tender Extremities: No edema, Capillary Refill Less than 3 Seconds, Tenderness - Left lower back. Skin: No rashes, - - Surgical wound on left lateral hip well approximated. Musculoskeletal: No Tenderness to Palpation of Joints or Extremities Neurological: Cranial nerves II-XII grossly intact Psych/Mental Status: Normal Affect, Appropriate Laboratory Results 03/01/20 19:10: WBC 12.9 H, RBC 4.99, Hgb 13.8, Hct 41.8, MCV 83.8, MCH 27.7, MCHC 33.0, RDW Std Deviation 37.7, RDW Coeff of Shameka 12.5, Plt Count 289, MPV 9.8, Immature Gran % (Auto) 0.300, Neut % (Auto) 84.0 H, Lymph % (Auto) 11.7 L, [place] % (Auto) 3.6, Eos % (Auto) 0.2, Baso % (Auto) 0.2, Absolute Neuts (auto) 10.9 H, Absolute Lymphs (auto) 1.51, Nucleated RBC % 0 03/01/20 19:10: PT 14.4, INR 1.2 03/01/20 19:10: Sodium 133 L, Potassium 3.8, Chloride 97 L, Carbon Dioxide 28.0, Anion Gap 8, BUN 14, Creatinine 0.93, Estim Creat Clear Calc 52.55, Est GFR (M DRD) Af Amer 78, Est GFR (MDRD) Non-Af 65, BUN/Creatinine Ratio 15.0, Glucose 330 H, Calcium 9.4 Current Medications Levofloxacin (Levaquin Iv) 500 mg in 100 mls @ 100 mls/hr IV X1 ONE Stop: 03/01/20 22:26 Assessment/Plan All Active Problems (Last Reviewed 03/01/20 @ 23:[address] Christophe Nowak MD) Pneumonia (Acute) Back pain (Acute) Intractable low back pain (Acute) Pulmonary contusion (Acute) Sepsis (Acute) The patient is a 59 year old F with a significant history of diabetes and h ypertension who presented with left lower back pain in the setting of a recent fall requiring left hip pain. Intractable lower back pain We will discontinue Flexeril since it has not helped with her pain and it only makes her a sleepy and groggy. Oxycodone ordered for as needed pain. OxyContin ordered. Bowel protocol and PRN antiemetics in place. PT and OT to work with patient. Sepsis secondary pneumonia Patient with tachycardia and leukocytosis of 12.9. Patient has no fever. She denies shortness of breath or cough. Actual CTA image was independently reviewed. By my interpretation it showed left infiltrate and bilateral pleural effusion with left worse than right. Will treat as pneumonia secondary sepsis. However, can rule out pulmonary contusion; and hemothorax from fall. Received Levaquin at emergency department. Will start patient on ceftriaxone and azithromycin. Will get a procalcitonin. If procalcitonin is low consider discontinue antibiotics. Incentive spirometer ordered. Strep pneumonia antigen and Legionella urine antigen ordered. Trend CBC. Blood culture was obtained in the emergency department; follow. Lactic acid is unremarkable. Pulmonary contusion and hemothorax Oxycodone as above. Incentive spirometer ordered. Diabetes mellitus Patient with hyperglycemia on presentation Basal insulin continued Hold home metformin Correction scale insulin ordered. Hypertension Presentation blood pressure was not within goal Lisinopril and metoprolol continued Trend blood pressure and adjust blood pressure medications. DVT prophylaxis We will order SCDs. We will avoid avoid chemical chemical thromboprophylaxis because of pulmonary contusion. Inpatient E&M: 00655 Init Hosp L3
[2020-03-01 21:41] VITALS: BP 131/78; PULSE 120; RESP 20; TEMP 36.8; O2SAT 90
[2020-03-01] MEDS: levoFLOXacin IV 500 MG/100 ML BAG 100 MG IV (21:42)
[2020-03-01 22:29] LABS: Lactic Acid 1.4 mmol/L (0.4-1.9)
[2020-03-01] MEDS: 0.9% Normal Saline 1,000 ML 100 ML IV (23:22)
[2020-03-01] MEDS: oxyCODONE 5 MG Tablet 10 MG PO (23:23)
[2020-03-01 23:25] VITALS: BMI 23.9
[2020-03-01 23:33] VITALS: BMI 23.9
[2020-03-02] VITALS (9 sets, daily range): BP systolic 123–155; BP diastolic 70–84; PULSE 93–113; RESP 18–22; TEMP 36.9–38; O2SAT 92–96
[2020-03-02] MEDS: Insulin Lispro 100 UNIT/ML INSULN.PEN 8 UNIT SC (00:02)
[2020-03-02] MEDS: oxyCODONE HCl Cr 10 MG Tablet PO (00:22)
[2020-03-02 00:31] LABS: Bedside Glucose 250 mg/dL (70-110)
[2020-03-02 00:59] LABS: Procalcitonin 0.19 ng/mL (0.00-0.09)
[2020-03-02 05:56] LABS: Absolute Lymphocyte Count 3.46 X10^3/uL (0.83-4.51); Absolute Neutrophil Count 6.2 X10^3/uL (2.0-7.7); Basophil# 0.03 X10^3/uL; Basophil% 0.3 % (0-1); Eosinophil# 0.07 X10^3/uL; Eosinophils% 0.7 % (0-5); Hemoglobin 12.3 g/dL (12.0-15.0); Lymphocyte # 3.46 X10^3/ul (4.0); Lymphocyte % 32.8 % (19-41); Mean Corp Hgb Conc 33.2 g/dL (32-36); Mean Corpuscular Hgb 28.1 pg (27.0-32.0); Mean Corpuscular Volume 84.5 fL (81-99); Mean Platelet Vol. 9.9 fl (6.2-12.0); Monocyte# 0.72 X10^3/uL; Monocyte% 6.8 % (0-10); NRBC Flagged by Analyzer 0 % (0-5); Neutrophil # 6.21 X10^3/uL (2.7-7.7); Neutrophil % 58.9 % (47-70); Platelet Count 257 K/mm3 (150-450); RBC Distribution Width CV 12.3 % (11.6-14.6); RBC Distribution Width SD 37.2 fl (35.1-43.9); Red Blood Count 4.38 M/mm3 (4.2-5.4); White Blood Count 10.5 K/mm3 (4.4-11.0)
[2020-03-02 06:32] LABS: Anion Gap 4 (5-15); BUN 11 mg/dL (7-18); BUN/Creat Ratio 15.4 RATIO (10-20); Calcium,Total 8.9 mg/dL (8.5-10.1); Chloride 98 mmol/L (98-107); Creatinine, Serum 0.72 mg/dL (0.55-1.02); EST Glomerular Filtration Rate 88 mL/min (>60); Est Glom Filt Rate - Afr Amer 106 mL/min (>60); Estimated Creatinine Clearance 67.88 ml/min; Glucose 188 mg/dL (74-106); Potassium 3.9 mmol/L (3.5-5.1); Sodium Level 134 mmol/L (136-145)
[2020-03-02] MEDS: Insulin Lispro 100 UNIT/ML INSULN.PEN SC ×4 (06:48→21:50)
[2020-03-02] MEDS: oxyCODONE 5 MG Tablet 10 MG PO (08:20)
[2020-03-02] MEDS: Aspirin 81 MG TAB.CHEW PO ×2 (08:20→17:01)
--- NOTE | 2020-03-02 08:35 | RAD_ITS ---
STUDY: X-RAY - UNILATERAL RIBS ( LEFT ) WITH CHEST REASON FOR EXAM: Female, 59 years old. LEFT LATERAL CHEST PAIN SINCE HER FALL January PER PATIENT. TECHNIQUE - RIBS: 4 view(s) of the ribs. TECHNIQUE - CHEST: Single frontal view of the chest. COMPARISON: CT March 01, 2020 FINDINGS - RIBS: Normal visualized ribs without a demonstrated fracture. FINDINGS - CHEST: There are mild left lower lung increased opacities. There is no demonstrated pleural abnormality. Normal size heart. Normal mediastinum and estelle. Normal visualized pulmonary arteries. Normal visualized aortic arch and descending thoracic aorta. Normal visualized thoracic spine. Normal visualized ribs, clavicles, and shoulders. There is no demonstrated abnormality of the visualized soft tissue structures of the upper abdomen. RAD/Ribs Uni Min 3V w/PA Chest IMPRESSION: RIBS: Normal x-ray examination of the ribs. CHEST: Left lower lung atelectasis or infiltrate. Electronically Signed: Deonte Martin MD at 18:38 EDT , Service support ,
--- NOTE | 2020-03-02 08:37 | PCM.PROGNOTE ---
Patient Problems: Active and Suspected Problems (Last Updated 03/02/20 @ 09:[address] Kathryn Casey MD) Pneumonia (Suspected) Subjective: Chief complaint: Follow-up after admission for left lateral chest pain, suspected pneumonia. Patient seen and examined. No acute events overnight. She still complaining of intractable left lateral chest pain, sharp pain, described as muscle spasm, intermittent, aggravated by movement and taking a deep breath. She denied cough or sputum production. She denied fever or chills. She mentioned that this pain started 4 days ago. She denied mechanical fall or trauma. She has been afebrile, heart rate stable this morning, blood pressure stable, pulse ox is 92% on room air. Patient was tachycardic and this is probably because of pain. - Physical Exam Vitals/I&O's: Vital Signs Temp Pulse Resp BP Pulse Ox 98.5 F 93 18 123/70 H 92 03/02/20 06:41 03/02/20 06:41 03/02/20 06:41 03/02/20 06:41 03/02/20 07:25 Oxygen Delivery Method Room Air Weight: 135 lb 2.294 oz Body Mass Index (BMI) 23.9 Intake and Output for Last 24 Hours 02/29/20 03/01/20 03/02/20 23:59 23:59 23:59 Intake Total 136.67 / 136.67 305 / 305 Balance 136.67 / 136.67 305 / 305 General: Alert, Oriented x3, Cooperative, - - She is an moderate to severe pain, episodic. HEENT: Atraumatic, PERRLA, EOMI, Normocephalic Oral: Moist Mucosa, No Gingival or Mucosal Lesions/ Ulcerations Neck: Supple, No JVD, Negative Carotid Bruits, Trachea Midline, Thyroid Normal Size and Texture Lungs: Clear to auscultation, No rhonchi, No wheeze, No rales, Diminished, - - Decreased breath sound at the bases, otherwise clear. Cardiovascular: Regular rate, Regular Rhythm, Normal S1, Normal S2, PMI Normal Abdomen: Bowel Sounds Present, Soft, Non Tender, Non-Distended, No Hepato-splenomegaly Extremities: No clubbing, No cyanosis, No edema Skin: No rashes, No breakdown Lymphatic: No Cervical, Supraclavicular, or Inguinal Adenopathy Neurological: Cranial nerves II-XII grossly intact, Neuro grossly intact Psych/Mental Status: Normal Affect, Appropriate, Alert and oriented to time, place, person, mood and affect Laboratory Results 03/01/20 19:10: WBC 12.9 H, RBC 4.99, Hgb 13.8, Hct 41.8, MCV 83.8, MCH 27.7, MCHC 33.0, RDW Std Deviation 37.7, RDW Coeff of Shameka 12.5, Plt Count 289, MPV 9.8, Immature Gran % (Auto) 0.300, Neut % (Auto) 84.0 H, Lymph % (Auto) 11.7 L, [place] % (Auto) 3.6, Eos % (Auto) 0.2, Baso % (Auto) 0.2, Absolute Neuts (auto) 10.9 H, Absolute Lymphs (auto) 1.51, Nucleated RBC % 0 03/01/20 19:10: PT 14.4, INR 1.2 03/01/20 19:10: Sodium 133 L, Potassium 3.8, Chloride 97 L, Carbon Dioxide 28.0, Anion Gap 8, BUN 14, Creatinine 0.93, Estim Creat Clear Calc 52.55, Est GFR (MDRD) Af Amer 78, Est GFR (MDRD) Non-Af 65, BUN/Creatinine Ratio 15.0, Glucose 330 H, Calcium 9.4 03/01/20 21:55: Lactic Acid 1.4 03/02/20 00:01: POC Glucose 250 H 03/02/20 00:05: Procalcitonin 0.19 H 03/02/20 05:36: WBC 10.5, RBC 4.38, Hgb 12.3, Hct 37.0, MCV 84.5, MCH 28.1, MCHC 33.2, RDW Std Deviation 37.2, RDW Coeff of Shameka 12.3, Plt Count 257, MPV 9.9, Immature Gran % (Auto) 0.500, Neut % (Auto) 58.9, Lymph % (Auto) 32.8, [place] % (Auto) 6.8, Eos % (Auto) 0.7, Baso % (Auto) 0.3, Absolute Neuts (auto) 6.2, Absolute Lymphs (auto) 3.46, Nucleated RBC % 0 03/02/20 05:36: Sodium 134 L, Potassium 3.9, Chloride 98, Carbon Dioxide 32.0, Anion Gap 4 L, BUN 11, Creatinine 0.72, Estim Creat Clear Calc 67.88, Est GFR (MDRD) Af Amer 106, Est GFR (MDRD) Non-Af 88, BUN/Creatinine Ratio 15.4, Glucose 188 H, Calcium 8.9 Clinical Impression(s) from Imaging Studies Chest CTA 03/01/20 18:24 IMPRESSION: CTA chest examination, without a demonstrated pulmonary embolism or arterial dissection. Mild left infiltrates. Electronically Signed: Deonte Martin MD at 20:43 EDT , Service support , Abdomen/Pelvis CT 03/01/20 18:25 IMPRESSION: Bilateral renal cysts. Calcification within right renal cyst. No hydronephrosis. Hepatomegaly. No biliary dilatation. Electronically Signed: Deonte Martin MD at 20:35 EDT , Service support , Current Medications Acetaminophen (Tylenol) 650 mg PO Q6H PRN PRN PRN Reason: Pain Score 1-10/Temp > 100.7 F Albuterol Sulfate (Ventolin Aerosols) 2.5 mg INHALATION Q2H PRN PRN PRN Reason: Shortness of Breath/Wheezing Aspirin (Aspirin, Baby) 81 mg PO BIDCM [facility] Last Admin: 03/02/20 08:20 Dose: 81 mg Documented by: Atorvastatin Calcium (Lipitor) 40 mg PO QHS [facility] Cholecalciferol (Vitamin D (25mcg)) 2,000 unit PO DAILY [facility] Cyclobenzaprine HCl (Flexeril) 10 mg PO TID PRN PRN PRN Reason: Muscle spasm Dextrose (D50w Syringe) 0 gm IV X1 PRN; Protocol PRN Reason: Hypoglycemia Glucagon () 1 mg IM .X1 PRN PRN Reason: Hypoglycemia Sodium Chloride () 1,000 mls @ 75 mls/hr IV .[id number] [facility] Stop: 03/02/20 12:14 Last Infusion: 03/02/20 01:31 Dose: 100 mls/hr Documented by: Azithromycin 500 mg/ Dextrose 255 mls @ 250 mls/hr IV QHS [facility] Last Infusion: 03/02/20 01:04 Dose: Infused Documented by: Ceftriaxone Sodium 2 gm/ (Sodium Chloride) 50 mls @ 100 mls/hr IV QHS [facility] Last Infusion: 03/02/20 01:31 Dose: Infused Documented by: Sodium Chloride () 250 mls @ 15 mls/hr IV .[id number] PRN PRN Reason: Saline Flush Sodium Chloride () 250 mls @ 15 mls/hr IV .[id number] PRN PRN Reason: Additional IVPB Infusion Ibuprofen (Motrin) 600 mg PO Q8 [facility] Insulin Glargine (Lantus ([facility])) 30 units SC QHS [facility] Last Admin: 03/02/20 00:05 Dose: 30 units Documented by: Insulin Human Lispro (Humalog Kwikpen ([facility])) 0 unit SC ACHS [facility]; Protocol Last Admin: 03/02/20 06:48 Dose: 2 units Documented by: Lidocaine (Lidoderm Patch) 1 patch TOPICAL DAILY [facility]; Protocol Lisinopril (Zestril) 20 mg PO DAILY [facility] Metoprolol Succinate (Toprol Xl (Beta Sudha)) 50 mg PO DAILY [facility] Morphine Sulfate () 2 mg IV Q3H PRN PRN PRN Reason: Pain Score 4-10/10 Nutritional Formula (Lactose Free) (Glucerna Shake) 120 ml PO 4X/DAY [facility] Geywh-0-Ccbd Ethyl Esters (Lovaza) 2 gm PO DAILY [facility] Ondansetron HCl (Zofran) 4 mg IV Q8H PRN PRN PRN Reason: NAUSEA/VOMITING Oxycodone HCl (Oxyir) 5 mg PO Q4H PRN PRN PRN Reason: Pain Score 4-5/10 Pantoprazole Sodium (Protonix) 40 mg PO DAILY [facility] Sodium Chloride () 10 - 40 ml IV UD PRN PRN Reason: SALINE FLUSH Medical Necessity - Tobacco Use Smoking Status: Former smoker Assessment/Plan This is a 59 years old female patient presented to the emergency room because of intractable left lateral chest/back pain, found to have minimal possible infiltrate versus atelectasis on CTA chest and was treated as a case of pneumonia. #1 intractable left lateral chest/back pain: Unclear etiology. There is no skin rash, shingles is unlikely. CTA chest showed no PE or dissection, showed minimal left lower lung atelectasis, I doubt pneumonia. CT scan abdomen and pelvis with contrast showed no acute pathology that can explain this pain, normal spleen, showed bilateral renal cysts, no hydronephrosis. I think her pain is pleuritic pain versus rib fractures. Again, I doubt pneumonia and CT chest findings likely due to atelectasis. Plan: Start p.o. ibuprofen every 8 hours, Lidoderm patch topically, DC MS Contin, start IV morphine PRN, encourage incentive spirometer. #2 probable pneumonia: CTA chest reviewed, I doubt pneumonia and I think those findings are due to atelectasis. Patient denied any cough or sputum production. She does have mild leukocytosis, resolved. Lactic acid was normal. Patient was tachycardic admission likely because of pain. No evidence of sepsis or severe sepsis. She is on IV Rocephin and Zithromax empirically. Plan to continue empiric antibiotics for now. #3 type 2 diabetes mellitus: Continue ADA diet, Lantus, insulin sliding scale, keep holding metformin. #4 hypertension: Blood pressure stable, continue lisinopril and metoprolol. #5 hyperlipidemia: Continue statins. #6 recent history of traumatic left femoral neck fracture: Status post close reduction and percutaneous pinning. This was done on February 07, 2020. She has no complaints, no hip pain, ambulating well. #7 DVT prophylaxis: Subcu Lovenox. This note was generated with [employer] ([employer]) dictation software. It may contain incorrect words, spelling, and punctuation that were not noted in checking the note before signing. Inpatient E&M: 12156 Subs Hosp L2
[2020-03-02] MEDS: Omega-3 Acid Ethyl Esters 1 GM Capsule 2 GM PO (10:07)
[2020-03-02] MEDS: Pantoprazole Sodium 40 MG Tablet PO (10:07)
[2020-03-02] MEDS: Lidocaine 5% Patch 1 PATCH TOPICAL (10:08)
[2020-03-02] MEDS: Metoprolol(XL)Succ 50 MG Tablet PO (10:08)
[2020-03-02] MEDS: Lisinopril 20 MG Tablet PO (10:08)
[2020-03-02] MEDS: Glucerna Shake 120 ML LIQUID PO ×2 (10:11→14:58)
[2020-03-02] MEDS: Enoxaparin 30 MG/0.3 ML Syringe SC (10:12)
[2020-03-02] MEDS: 0.9% Normal Saline 1,000 ML 100 ML IV ×2 (10:26→17:00)
[2020-03-02 10:59] LABS: Bacteria 0 SEEN /hpf (None Seen); Mucous, Urine 0 SEEN /hpf (<or=2+); Red Blood Cells-Urine 0 SEEN /hpf (0-5); Squamous Epithelial Cells - UA 0 SEEN /hpf (5-10)
[2020-03-02 11:18] LABS: Color, Urine Yellow (Yellow); Glucose, Dipstick 1000 mg/dl (Normal); Ketone-Dipstick 15 mg/dl (Negative); Leukocyte Esterase-Dipstick 500 /ul (Negative); Nitrite-Dipstick Negative (Negative); Occult Blood-Urine 50 /ul (Negative); Protein-Dipstick 30 mg/dl (Negative); Urine Bilirubin Dipstick Negative (Negative); Urine Clarity Cloudy (Clear); Urine Urobilinogen 1 mg/dl (Normal); Urine pH 6.5 (5.0 - 8.0)
[2020-03-02 11:23] LABS: Yeast-Urine 3+ /hpf (None Seen)
[2020-03-02 11:24] LABS: White Blood Cells 50-100 SEEN /hpf (0-5)
[2020-03-02 11:31] LABS: Bedside Glucose 175 mg/dL (70-110)
[2020-03-02 12:10] LABS: Bedside Glucose 305 mg/dL (70-110)
[2020-03-02] MEDS: cycloBENZAPRine HCl 10 MG Tablet PO (12:13)
--- NOTE | 2020-03-02 14:43 | CASEMGMT ---
Readmission review: Patient admitted 02/06/20-02/08/20 for left hip fracture after fall of ladder at work. Patient had close reduction percutaneous pinning left hip on 02/07/20. Patient was discharged home with support from spouse with outpatient therapy scheduled at [facility] on 02/10/20. Patient was setup with [facility] prior to discharge. See KODI CM assessment from 02/06/20. Patient readmitted on 03/01/2020 for complaint of back and chest pain, probable pneumonia. Patient continues with therapy, will monitor therapy for additional needs. Disposition Plan: Patient to discharge home with resumption of outpatient therapy, family support, and follow-up plans in place.
[2020-03-02] MEDS: Ibuprofen 600 MG Tablet PO ×2 (15:01→21:38)
[2020-03-02 16:46] LABS: Bedside Glucose 205 mg/dL (70-110)
[2020-03-02] MEDS: 0.9% Saline Lock 10 ML Syringe IV (17:04)
[2020-03-02] MEDS: Atorvastatin Calcium 40 MG Tablet PO (21:39)
[2020-03-02 22:00] LABS: Bedside Glucose 165 mg/dL (70-110)
[2020-03-03] VITALS (7 sets, daily range): BP systolic 97–141; BP diastolic 63–77; PULSE 75–91; RESP 16–18; TEMP 36.6–36.9; O2SAT 94–97
[2020-03-03] MEDS: 0.9% Normal Saline 1,000 ML 100 ML IV ×3 (04:24→23:48)
[2020-03-03] MEDS: Ibuprofen 600 MG Tablet PO ×3 (06:30→21:48)
[2020-03-03 06:40] LABS: Bedside Glucose 80 mg/dL (70-110)
--- NOTE | 2020-03-03 08:08 | PN_ITS ---
Patient Problems: Active and Suspected Problems (Last Updated 03/02/20 @ 09:[address] Kathryn Casey MD) Pneumonia (Suspected) Subjective: Chief complaint: Follow-up after admission for intractable left lateral chest pain and probable pneumonia. Patient seen and examined. No acute events overnight. Today, the left lateral chest pain is getting better, improving. Patient is able to take a deep breath. Denied cough or sputum production. She had a spike of low-grade fever last night. This morning, she is afebrile, other vital signs are stable. - Physical Exam Vitals/I&O's: Vital Signs Temp Pulse Resp BP Pulse Ox 97.9 F 75 16 126/75 H 97 03/03/20 02:02 03/03/20 02:02 03/03/20 02:02 03/03/20 02:02 03/03/20 07:58 Oxygen Delivery Method Room Air Weight: 135 lb 2.294 oz Body Mass Index (BMI) 23.9 Intake and Output for Last 24 Hours 03/01/20 03/02/20 03/03/20 23:59 23:59 23:59 Intake Total 136.67 / 136.67 2653.33 / 2753.33 876.67 / 876.67 Balance 136.67 / 136.67 2653.33 / 2753.33 876.67 / 876.67 General: Alert, Oriented x3, Cooperative, No apparent distress HEENT: Atraumatic, PERRLA, EOMI, Normocephalic Oral: Moist Mucosa, No Gingival or Mucosal Lesions/ Ulcerations Neck: Supple, No JVD, Negative Carotid Bruits, Trachea Midline, Thyroid Normal Size and Texture Lungs: Clear to auscultation, No rhonchi, No wheeze, No rales, Diminished, - - Decreased breath sounds at the bases, otherwise clear. Cardiovascular: Regular rate, Regular Rhythm, Normal S1, Normal S2, PMI Normal Abdomen: Bowel Sounds Present, Soft, Non Tender, Non-Distended, No Hepato- splenomegaly Extremities: No clubbing, No cyanosis, No edema Skin: No rashes, No breakdown Lymphatic: No Cervical, Supraclavicular, or Inguinal Adenopathy Neurological: Cranial nerves II-XII grossly intact, Neuro grossly intact Psych/Mental Status: Normal Affect, Appropriate, Alert and oriented to time, place, person, mood and affect Microbiology Past 72 Hours 03/02/20 10:40 Urine, Clean Catch Legionella Antigen - Final 03/02/20 10:40 Urine, Clean Catch Streptococcus pneumoniae Antigen (M - Final Laboratory Results 03/02/20 06:46: POC Glucose 175 H 03/02/20 10:40: Urine Color Yellow, Urine Clarity Cloudy, Urine pH 6.5, Ur Specific [place] 1.010, Urine Protein 30 H, Urine Glucose (UA) 1000 H, Urine Ketones 15 H, Urine Occult Blood 50 H, Urine Nitrite Negative, Urine Bilirubin Negative, Urine Urobilinogen 1 H, Ur Leukocyte Esterase 500 H, Urine RBC 0 SEEN, Urine WBC 50-100 SEEN, Ur Squamous Epith Cells 0 SEEN, Urine Bacteria 0 SEEN, Urine Mucus 0 SEEN, Urine Yeast 3+ 03/02/20 12:00: POC Glucose 305 H 03/02/20 16:25: POC Glucose 205 H 03/02/20 21:49: POC Glucose 165 H 03/03/20 06:30: POC Glucose 80 Current Medications Acetaminophen (Tylenol) 650 mg PO Q6H PRN PRN PRN Reason: Pain Score 1-10/Temp > 100.7 F Albuterol Sulfate (Ventolin Aerosols) 2.5 mg INHALATION Q2H PRN PRN PRN Reason: Shortness of Breath/Wheezing Aspirin (Aspirin, Baby) 81 mg PO BIDCM [facility] Last Admin: 03/02/20 17:01 Dose: 81 mg Documented by: Atorvastatin Calcium (Lipitor) 40 mg PO QHS [facility] Last Admin: 03/02/20 21:39 Dose: 40 mg Documented by: Cholecalciferol (Vitamin D (25mcg)) 2,000 unit PO DAILY [facility] Last Admin: 03/02/20 10:07 Dose: 2,000 unit Documented by: Dextrose (D50w Syringe) 0 gm IV X1 PRN; Protocol PRN Reason: Hypoglycemia Enoxaparin Sodium (Lovenox) 30 mg SC DAILY [facility] Last Admin: 03/02/20 10:12 Dose: 30 mg Documented by: Glucagon () 1 mg IM .X1 PRN PRN Reason: Hypoglycemia Azithromycin 500 mg/ Dextrose 255 mls @ 250 mls/hr IV QHS [facility] Last Infusion: 03/03/20 00:11 Dose: Infused Documented by: Ceftriaxone Sodium 2 gm/ (Sodium Chloride) 50 mls @ 100 mls/hr IV QHS [facility] Last Infusion: 03/02/20 22:21 Dose: Infused Documented by: Sodium Chloride () 250 mls @ 15 mls/hr IV .[id number] PRN PRN Reason: Saline Flush Sodium Chloride () 250 mls @ 15 mls/hr IV .[id number] PRN PRN Reason: Additional IVPB Infusion Sodium Chloride () 1,000 mls @ 100 mls/hr IV .Q10H [facility] Last Admin: 03/03/20 04:24 Dose: 100 mls/hr Documented by: Ibuprofen (Motrin) 600 mg PO Q8 [facility] Last Admin: 03/03/20 06:30 Dose: 600 mg Documented by: Insulin Glargine (Lantus ([facility])) 30 units SC QHS [facility] Last Admin: 03/02/20 21:49 Dose: 30 units Documented by: Insulin Human Lispro (Humalog Kwikpen ([facility])) 0 unit SC ACHS [facility]; Protocol Last Admin: 03/03/20 06:31 Dose: Not Given Documented by: Lidocaine (Lidoderm Patch) 1 patch TOPICAL DAILY [facility]; Protocol Last Admin: 03/02/20 10:08 Dose: 1 patch Documented by: Lisinopril (Zestril) 20 mg PO DAILY [facility] Last Admin: 03/02/20 10:08 Dose: 20 mg Documented by: Metoprolol Succinate (Toprol Xl (Beta Sudha)) 50 mg PO DAILY [facility] Last Admin: 03/02/20 10:08 Dose: 50 mg Documented by: Morphine Sulfate () 2 mg IV Q3H PRN PRN PRN Reason: Pain Score 4-10/10 Nutritional Formula (Lactose Free) (Glucerna Shake) 120 ml PO 4X/DAY [facility] Last Admin: 03/02/20 21:38 Dose: Not Given Documented by: [id number]-Ylte Ethyl Esters (Lovaza) 2 gm PO DAILY [facility] Last Admin: 03/02/20 10:07 Dose: 2 gm Documented by: Ondansetron HCl (Zofran) 4 mg IV Q8H PRN PRN PRN Reason: NAUSEA/VOMITING Oxycodone HCl (Oxyir) 5 mg PO Q4H PRN PRN PRN Reason: Pain Score 4-5/10 Pantoprazole Sodium (Protonix) 40 mg PO DAILY [facility] Last Admin: 03/02/20 10:07 Dose: 40 mg Documented by: Sodium Chloride () 10 - 40 ml IV UD PRN PRN Reason: SALINE FLUSH Last Admin: 03/02/20 17:04 Dose: 10 ml Documented by: Medical Necessity - Tobacco Use Smoking Status: Former smoker Assessment/Plan This is a 59 years old female patient presented to the emergency room because of intractable left lateral chest/back pain, found to have minimal possible infiltrate versus atelectasis on CTA chest and was treated as a case of pneumonia. #1 intractable left lateral chest/back pain: Unclear etiology. She is on ibuprofen, lidocaine patch and IV morphine as well as OxyIR PRN for pain. Today, this pain is getting better. X-ray of the ribs showed no acute fractures. There is no skin rash, shingles is unlikely. CTA chest showed no PE or dissection, showed minimal left lower lung atelectasis, I doubt pneumonia. CT scan abdomen and pelvis with contrast showed no acute pathology that can explain this pain, normal spleen, showed bilateral renal cysts, no hydronephrosis. Plan: Encourage incentive spirometer, ambulate, repeat CBC and BMP tomorrow morning. #2 probable pneumonia: Overnight, she developed low-grade fever. She is already on IV Rocephin and Zithromax. Blood and urine cultures are pending. Patient denies any cough or sputum production. Lactic acid was normal. Plan to dawson nue same treatment. #3 probable acute cystitis: Urinalysis revealed cloudy urine, negative for nitrite, positive for leukocyte esterase, there was 50-100 WBCs but no bacteria seen. This is bacteriuria and patient is diabetic. She is already on IV Rocephin. Urine cultures pending. #4 type 2 diabetes mellitus: Continue ADA diet, Lantus, insulin sliding scale, keep holding metformin. #5 hypertension: Blood pressure stable, continue lisinopril and metoprolol. #6 hyperlipidemia: Continue statins. #7 recent history of traumatic left femoral neck fracture: Status post close reduction and percutaneous pinning. This was done on February 07, 2020. She has no complaints, no hip pain, ambulating well. #8 DVT prophylaxis: Subcu Lovenox. This note was generated with [employer] software. It may contain incorrect words, spelling, and punctuation that were not noted in checking the note before signing. Inpatient E&M: 31332 Subs Hosp L2
[2020-03-03] MEDS: Omega-3 Acid Ethyl Esters 1 GM Capsule 2 GM PO (09:18)
[2020-03-03] MEDS: Enoxaparin 30 MG/0.3 ML Syringe SC (09:18)
[2020-03-03] MEDS: Pantoprazole Sodium 40 MG Tablet PO (09:19)
[2020-03-03] MEDS: Aspirin 81 MG TAB.CHEW PO ×2 (10:59→18:24)
[2020-03-03] MEDS: Insulin Lispro 100 UNIT/ML INSULN.PEN SC ×3 (11:03→21:55)
[2020-03-03] MEDS: Lidocaine 5% Patch 1 PATCH TOPICAL (11:03)
[2020-03-03 11:11] LABS: Bedside Glucose 247 mg/dL (70-110)
[2020-03-03] MEDS: oxyCODONE 5 MG Tablet PO ×2 (12:43→23:56)
[2020-03-03 16:40] LABS: Bedside Glucose 169 mg/dL (70-110)
[2020-03-03] MEDS: Atorvastatin Calcium 40 MG Tablet PO (21:48)
[2020-03-04 00:31] LABS: Bedside Glucose 282 mg/dL (70-110)
[2020-03-04 03:30] VITALS: BP 154/82; PULSE 83; RESP 18; TEMP 36.5; O2SAT 95
[2020-03-04] MEDS: Senna/Docusate Sodium 1 Tablet 2 TABLET PO (06:29)
[2020-03-04] MEDS: Ibuprofen 600 MG Tablet PO ×2 (06:29→13:03)
[2020-03-04 07:05] LABS: Bedside Glucose 142 mg/dL (70-110)
[2020-03-04 07:10] LABS: Absolute Lymphocyte Count 2.56 X10^3/uL (0.83-4.51); Absolute Neutrophil Count 3.3 X10^3/uL (2.0-7.7); Basophil# 0.02 X10^3/uL; Basophil% 0.3 % (0-1); Eosinophil# 0.15 X10^3/uL; Eosinophils% 2.4 % (0-5); Hemoglobin 11.4 g/dL (12.0-15.0); Lymphocyte # 2.56 X10^3/ul (4.0); Lymphocyte % 40.7 % (19-41); Mean Corp Hgb Conc 32.6 g/dL (32-36); Mean Corpuscular Hgb 27.2 pg (27.0-32.0); Mean Corpuscular Volume 83.5 fL (81-99); Mean Platelet Vol. 9.1 fl (6.2-12.0); Monocyte# 0.28 X10^3/uL; Monocyte% 4.5 % (0-10); NRBC Flagged by Analyzer 0 % (0-5); Neutrophil # 3.26 X10^3/uL (2.7-7.7); Neutrophil % 51.8 % (47-70); Platelet Count 261 K/mm3 (150-450); RBC Distribution Width CV 12.3 % (11.6-14.6); RBC Distribution Width SD 37.1 fl (35.1-43.9); Red Blood Count 4.19 M/mm3 (4.2-5.4); White Blood Count 6.3 K/mm3 (4.4-11.0)
[2020-03-04 07:24] VITALS: O2SAT 93
[2020-03-04 07:33] LABS: Anion Gap 6 (5-15); BUN 11 mg/dL (7-18); BUN/Creat Ratio 18.4 RATIO (10-20); Calcium,Total 8.4 mg/dL (8.5-10.1); Chloride 106 mmol/L (98-107); EST Glomerular Filtration Rate 108 mL/min (>60); Est Glom Filt Rate - Afr Amer 131 mL/min (>60); Estimated Creatinine Clearance 81.45 ml/min; Glucose 131 mg/dL (74-106); Potassium 3.8 mmol/L (3.5-5.1); Sodium Level 140 mmol/L (136-145)
[2020-03-04 09:30] VITALS: BP 151/71; PULSE 75; RESP 18; TEMP 36.8; O2SAT 98
[2020-03-04] MEDS: Aspirin 81 MG TAB.CHEW PO (09:40)
[2020-03-04] MEDS: Lidocaine 5% Patch 1 PATCH TOPICAL (09:40)
[2020-03-04] MEDS: Pantoprazole Sodium 40 MG Tablet PO (09:41)
[2020-03-04] MEDS: Omega-3 Acid Ethyl Esters 1 GM Capsule 2 GM PO (09:41)
[2020-03-04 09:42] VITALS: PULSE 75
[2020-03-04] MEDS: Lisinopril 20 MG Tablet PO (09:42)
[2020-03-04] MEDS: Metoprolol(XL)Succ 50 MG Tablet PO (09:42)
[2020-03-04] MEDS: Enoxaparin 30 MG/0.3 ML Syringe SC (09:42)
[2020-03-04] MEDS: 0.9% Normal Saline 1,000 ML 100 ML IV (09:56)
--- NOTE | 2020-03-04 10:33 | DCINST_ITS ---
You will use the following diet at home:: Calorie/Carbohydrate Controlled (specify 1200, 1400, etc) - 2000 kylie., Cardiac Your food should be the consistency of: Regular Discharge Activity: Return to Normal Activity, May not drive while taking narcotic pain medications. Weight Bearing Status: Full weight bearing Call your doctor if you observe: Fever of 101 or Higher, Shortness of breath, Dizziness, Fainting spells, Chest pain, Increased palpitations (irregular heartbeat), Uncontrolled pain Allergies/Adverse Reactions: Allergies No Known Allergies Allergy (Verified 02/28/20 15:32) Medications to take at Discharge metoprolol succinate 50 mg tablet,extended release 24 hr 50 mg PO DAILY 30 Days #30 tab 07/12/18 omega-3 acid ethyl esters 1 gram capsule 2 cap PO DAILY cap 05/08/19 omeprazole 40 mg capsule,delayed release 40 mg PO DAILY 05/08/19 Cholecalciferol (Vitamin D3) [Vitamin D3] 2,000 unit PO DAILY 02/06/20 Rosuvastatin Calcium [Crestor] 20 mg PO DAILY 02/06/20 Aspirin [Aspirin, Baby] 81 mg PO BIDCM #1 tab.chew 02/08/20 Insulin NPH Human Isophane [Humulin N] 40 unit SQ BID #3 vial 02/08/20 Lisinopril [Zestril] 20 mg PO DAILY #30 tab 02/08/20 Metformin HCl [Glucophage Xr] 500 mg PO BID 30 Days #60 tab 02/08/20 cycloBENZAPRine HCl [Flexeril] 10 mg PO TID PRN #15 tab 02/28/20 Amox/Clavulanate Tablet [Augmentin Tablet] 875 mg PO Q12H #10 tab 03/04/20 Ibuprofen [Motrin] 600 mg PO Q8 3 Days #10 tab 03/04/20 Oxycodone [Oxyir] 5 mg PO Q8H PRN PRN 3 Days #10 tablet 03/04/20 The following prescriptions were given: Amox/Clavulanate Tablet [Augmentin Tablet] 875 mg PO Q12H #10 tab Transmission Status: Pending to [id number] Ibuprofen [Motrin] 600 mg PO Q8 3 Days #10 tab Transmission Status: Pending to [id number] Oxycodone [Oxyir] 5 mg PO Q8H PRN PRN 3 Days #10 tablet PRN Reason: Pain Score 6-10/10 Transmission Status: Sent to [id number] Primary Care Physician: Javier Levy MD [Primary Care Provider] - Please follow up with your Primary Care Physician in: 1 week. Test Results: Test results from this visit will be discussed in further detail at your follow- up appointment, if applicable.
--- NOTE | 2020-03-04 11:07 | CASEMGMT ---
KODI MCKENNA updated that patient will be discharging today. KODI MCKENNA in to discuss needs at discharge. Patient states her plan is to return home with resumption of her outpatient therapy at [facility] as already scheduled. Patient denied further needs or concerns at this time.
--- NOTE | 2020-03-04 11:39 | DS.PCM_ITS ---
Discharge Date and Diagnosis - Problem List Patient Problems: Active and Suspected Problems (Last Updated 03/02/20 @ 09:[address] Kathryn Casey MD) Pneumonia (Suspected) Date of Admission: 03/01/20 Date of Discharge: 03/04/20 - Primary Discharge Diagnosis Acute Problems: #1 presumed left lower lobe community-acquired pneumonia. #2 intractable left lateral chest/lateral back pain, unclear duration, could be due to pleurisy. #3 probable acute cystitis. #4 recent history of traumatic left pneumonic fracture status post closed reduction and percutaneous pinning. Suspected Problems: Suspected Problems (Last Updated 03/02/20 @ 09:[address] Kathryn Casey MD) Pneumonia (Suspected) - Secondary Discharge Diagnosis Chronic Problems: Chronic Problems (Last Updated 03/02/20 @ 09:[address] 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 Mild left infiltrates. Electronically Signed: Deonte Martin MD at 20:43 EDT , Service support , Abdomen/Pelvis CT 03/01/20 18:25 IMPRESSION: Bilateral renal cysts. Calcification within right renal cyst. No hydronephrosis. Hepatomegaly. No biliary dilatation. Electronically Signed: Deonte Martin MD at 20:35 EDT , Service support , Ribs w/Chest X-Ray 03/02/20 08:35 IMPRESSION: RIBS: Normal x-ray examination of the ribs. CHEST: Left lower lung atelectasis or infiltrate. Electronically Signed: Deonte Martin MD at 18:38 EDT , Service support , Operations: None, - Procedures: None Summary of Care Provided: Patient seen and examined on the day of discharge and to be to be stable to be discharged home. Left lateral chest pain has been improving, patient is able to take a deep breath without difficulties. She has been afebrile, other vital signs are stable. The patient is a 59 year old F presented to the emergency room because of intractable left lateral chest/left lateral back pain. CTA chest done on admission and revealed no PE or dissection, revealed minimal left lower atelectasis versus infiltrate. Initially, patient had no complaints of cough, shortness of breath, sputum production or fever. She was started on IV Rocephin and Zithromax empirically. Her routine blood work was remarkable for mild leukocytosis, otherwise normal. WBC returned back to normal on repeat CBC. Urinalysis revealed cloudy urine, negative for nitrite, there was 500 leukocyte esterase, 50-100 WBCs and no bacteria seen. This is consistent with bacteriuria and it was asymptomatic. Pneumococcal and urine antigen were negative. Blood culture was negative up to the time of discharge. Urine culture revealed yeastlike organism. Patient was treated with scheduled ibuprofen as well as IV morphine and OxyIR PRN for pain. And also she was treated with lidocaine patch topically. With this treatment, her left lateral chest pain significantly improved. Patient was able to take a deep breath with those medications. Later, she developed 1 spike of low-grade fever of 100.5 Fahrenheit. She had no more spikes of fever and her other vital signs remained stable. Patient discharged home in a stable medical condition, discharged on ibuprofen 800 mg every 8 hours for 3 days more, discharged on Augmentin 875 mg p.o. twice daily for 5 days, discharged on OxyIR PRN for pain, continued on her previous home medications without any changes, recommended follow-up with PCP in 1 week. Patient Problems: Active and Suspected Problems (Last Updated 03/02/20 @ 09:[address] Kathryn Casey MD) Pneumonia (Suspected) - Physical Exam Vitals/I&O's: Vital Signs Temp Pulse Resp BP Pulse Ox 98.2 F 75 18 151/71 H 98 03/04/20 09:30 03/04/20 09:42 03/04/20 09:30 03/04/20 09:30 03/04/20 09:30 Oxygen Delivery Method Room Air Weight: 135 lb 2.294 oz Body Mass Index (BMI) 23.9 Intake and Output for Last 24 Hours 03/02/20 03/03/20 03/04/20 23:59 23:59 23:59 Intake Total 2653.33 / 2753.33 3866.67 / 4166.67 1854 Balance 2653.33 / 2753.33 3866.67 / 4166.67 1854 General: Alert, Oriented x3, Cooperative, No apparent distress HEENT: Atraumatic, PERRLA, EOMI, Normocephalic Oral: Moist Mucosa, No Gingival or Mucosal Lesions/ Ulcerations Neck: Supple, No JVD, Negative Carotid Bruits, Trachea Midline, Thyroid Normal Size and Texture Lungs: Clear to auscultation, Normal air movement, No rhonchi, No wheeze, No rales, Diminished Cardiovascular: Regular rate, Regular Rhythm, Normal S1, Normal S2, PMI Normal Abdomen: Bowel Sounds Present, Soft, Non Tender, Non-Distended, No Hepato- splenomegaly Extremities: No clubbing, No cyanosis, No edema Skin: No rashes, No breakdown Lymphatic: No Cervical, Supraclavicular, or Inguinal Adenopathy Neurological: Cranial nerves II-XII grossly intact, Neuro grossly intact Psych/Mental Status: Normal Affect, Appropriate Microbiology Past 72 Hours 03/02/20 10:40 Urine, Midstream Urine Culture - Preliminary Yeast Like Organism 03/02/20 10:40 Urine, Clean Catch Legionella Antigen - Final 03/02/20 10:40 Urine, Clean Catch Streptococcus pneumoniae Antigen (M - Final Laboratory Results 03/03/20 16:34: POC Glucose 169 H 03/03/20 21:52: POC Glucose 282 H 03/04/20 06:33: POC Glucose 142 H 03/04/20 06:40: WBC 6.3, RBC 4.19 L, Hgb 11.4 L, Hct 35.0 L, MCV 83.5, MCH 27.2, MCHC 32.6, RDW Std Deviation 37.1, RDW Coeff of Shameka 12.3, Plt Count 261, MPV 9.1, Immature Gran % (Auto) 0.300, Neut % (Auto) 51.8, Lymph % (Auto) 40.7, [place] % (Auto) 4.5, Eos % (Auto) 2.4, Baso % (Auto) 0.3, Absolute Neuts (auto) 3.3, Absolute Lymphs (auto) 2.56, Nucleated RBC % 0 03/04/20 06:40: Sodium 140, Potassium 3.8, Chloride 106, Carbon Dioxide 28.0, Anion Gap 6, BUN 11, Creatinine 0.60, Estim Creat Clear Calc 81.45, Est GFR (MDRD) Af Amer 131, Est GFR (MDRD) Non-Af 108, BUN/Creatinine Ratio 18.4, Glucose 131 H, Calcium 8.4 L Current Medications Acetaminophen (Tylenol) 650 mg PO Q6H PRN PRN PRN Reason: Pain Score 1-10/Temp > 100.7 F Albuterol Sulfate (Ventolin Aerosols) 2.5 mg INHALATION Q2H PRN PRN PRN Reason: Shortness of Breath/Wheezing Aspirin (Aspirin, Baby) 81 mg PO BIDCM [facility] Last Admin: 03/04/20 09:40 Dose: 81 mg Documented by: Atorvastatin Calcium (Lipitor) 40 mg PO QHS [facility] Last Admin: 03/03/20 21:48 Dose: 40 mg Documented by: Cholecalciferol (Vitamin D (25mcg)) 2,000 unit PO DAILY [facility] Last Admin: 03/04/20 09:42 Dose: 2,000 unit Documented by: Dextrose (D50w Syringe) 0 gm IV X1 PRN; Protocol PRN Reason: Hypoglycemia Enoxaparin Sodium (Lovenox) 30 mg SC DAILY [facility] Last Admin: 03/04/20 09:42 Dose: 30 mg Documented by: Glucagon () 1 mg IM .X1 PRN PRN Reason: Hypoglycemia Azithromycin 500 mg/ Dextrose 255 mls @ 250 mls/hr IV QHS [facility] Last Infusion: 03/04/20 01:00 Dose: Infused Documented by: Ceftriaxone Sodium 2 gm/ (Sodium Chloride) 50 mls @ 100 mls/hr IV QHS [facility] Last Infusion: 03/03/20 22:15 Dose: Infused Documented by: Sodium Chloride () 250 mls @ 15 mls/hr IV .[id number] PRN PRN Reason: Saline Flush Sodium Chloride () 250 mls @ 15 mls/hr IV .[id number] PRN PRN Reason: Additional IVPB Infusion Sodium Chloride () 1,000 mls @ 100 mls/hr IV .Q10H [facility] Last Admin: 03/04/20 09:56 Dose: 100 mls/hr Documented by: Ibuprofen (Motrin) 600 mg PO Q8 [facility] Last Admin: 03/04/20 06:29 Dose: 600 mg Documented by: Insulin Glargine (Lantus ([facility])) 30 units SC QHS [facility] Last Admin: 03/03/20 21:53 Dose: 30 units Documented by: Insulin Human Lispro (Humalog Kwikpen ([facility])) 0 unit SC ACHS [facility]; Protocol Last Admin: 03/04/20 06:34 Dose: Not Given Documented by: Lidocaine (Lidoderm Patch) 1 patch TOPICAL DAILY [facility]; Protocol Last Admin: 03/04/20 09:40 Dose: 1 patch Documented by: Lisinopril (Zestril) 20 mg PO DAILY [facility] Last Admin: 03/04/20 09:42 Dose: 20 mg Documented by: Metoprolol Succinate (Toprol Xl (Beta Sudha)) 50 mg PO DAILY [facility] Last Admin: 03/04/20 09:42 Dose: 50 mg Documented by: Morphine Sulfate () 2 mg IV Q3H PRN PRN PRN Reason: Pain Score 4-10/10 Nutritional Formula (Lactose Free) (Glucerna Shake) 120 ml PO 4X/DAY [facility] Last Admin: 03/04/20 11:11 Dose: Not Given Documented by: [id number] Ethyl Esters (Lovaza) 2 gm PO DAILY [facility] Last Admin: 03/04/20 09:41 Dose: 2 gm Documented by: Ondansetron HCl (Zofran) 4 mg IV Q8H PRN PRN PRN Reason: NAUSEA/VOMITING Oxycodone HCl (Oxyir) 5 mg PO Q4H PRN PRN PRN Reason: Pain Score 4-5/10 Last Admin: 03/03/20 23:56 Dose: 5 mg Documented by: Pantoprazole Sodium (Protonix) 40 mg PO DAILY [facility] Last Admin: 03/04/20 09:41 Dose: 40 mg Documented by: Senna/Docusate Sodium (Senokot-S, Svetlana-Colace) 2 tablet PO DAILY PRN PRN PRN Reason: CONSTIPATION Last Admin: 03/04/20 06:29 Dose: 2 tablet Documented by: Sodium Chloride () 10 - 40 ml IV UD PRN PRN Reason: SALINE FLUSH Last Admin: 03/02/20 17:04 Dose: 10 ml Documented by: Discharge Activity: Return to Normal Activity, May not drive while taking narcotic pain medications. Weight Bearing Status: Full weight bearing Call your doctor if you observe: Fever of 101 or Higher, Shortness of breath, Dizziness, Fainting spells, Chest pain, Increased palpitations (irregular heartbeat), Uncontrolled pain Home Medications: Medications to take at Discharge metoprolol succinate 50 mg tablet,extended release 24 hr 50 mg PO DAILY 30 Days #30 tab 07/12/18 omega-3 acid ethyl esters 1 gram capsule 2 cap PO DAILY cap 05/08/19 omeprazole 40 mg capsule,delayed release 40 mg PO DAILY 05/08/19 Cholecalciferol (Vitamin D3) [Vitamin D3] 2,000 unit PO DAILY 02/06/20 Rosuvastatin Calcium [Crestor] 20 mg PO DAILY 02/06/20 Aspirin [Aspirin, Baby] 81 mg PO BIDCM #1 tab.chew 02/08/20 Insulin NPH Human Isophane [Humulin N] 40 unit SQ BID #3 vial 02/08/20 Lisinopril [Zestril] 20 mg PO DAILY #30 tab 02/08/20 Metformin HCl [Glucophage Xr] 500 mg PO BID 30 Days #60 tab 02/08/20 cycloBENZAPRine HCl [Flexeril] 10 mg PO TID PRN #15 tab 02/28/20 Amox/Clavulanate Tablet [Augmentin Tablet] 875 mg PO Q12H #10 tab 03/04/20 Ibuprofen [Motrin] 600 mg PO Q8 3 Days #10 tab 03/04/20 Oxycodone [Oxyir] 5 mg PO Q8H PRN PRN 3 Days #10 tab 03/04/20 Following Prescriptions Were Given to Patient: Amox/Clavulanate Tablet [Augmentin Tablet] 875 mg PO Q12H #10 tab Transmission Status: Received by [facility] Ibuprofen [Motrin] 600 mg PO Q8 3 Days #10 tab Transmission Status: Received by [facility] [id number] Oxycodone [Oxyir] 5 mg PO Q8H PRN PRN 3 Days #10 tab PRN Reason: Pain Score 6-04/09 Transmission Status: Received by [facility] Primary Care Physician: Javier Levy MD [Primary Care Provider] - Please follow up with your Primary Care Physician in: 1 week. Please Follow Up With: Morgan Levy MD When: Disposition: Home Minutes spent on discharge:: 31 Patient Condition:: Stable Medical Necessity - Tobacco Use Smoking Status: Former smoker Meaningful Use Info Meaningful Use Diagnoses (Choose all that apply): None applicable Inpatient E&M: 95790 Disch Hosp
[2020-03-04 11:40] LABS: Bedside Glucose 195 mg/dL (70-110)
--- NOTE | 2020-03-04 12:12 | PHA.DC.MC ---
Pharmacy Service has performed discharge medication reconciliation and counseling for this patient. 1. AMOXICILLIN/CLAVULANATE 875MG PO Q12H X 5 DAYS 2. IBUPROFEN 600MG PO TID X 3 DAYS 3. OXYCODONE 5MG PO Q8H PRN PAIN X 3 DAYS The patient's discharge medication list was reviewed for discrepancies and discrepancies were resolved. Home Medications metoprolol succinate 50 mg tablet,extended release 24 hr 50 mg PO DAILY 30 Days #30 tab 07/12/18 omega-3 acid ethyl esters 1 gram capsule 2 cap PO DAILY cap 05/08/19 omeprazole 40 mg capsule,delayed release 40 mg PO DAILY 05/08/19 Cholecalciferol (Vitamin D3) [Vitamin D3] 2,000 unit PO DAILY 02/06/20 Rosuvastatin Calcium [Crestor] 20 mg PO DAILY 02/06/20 Aspirin [Aspirin, Baby] 81 mg PO BIDCM #1 tab.chew 02/08/20 Insulin NPH Human Isophane [Humulin N] 40 unit SQ BID #3 vial 02/08/20 Lisinopril [Zestril] 20 mg PO DAILY #30 tab 02/08/20 Metformin HCl [Glucophage Xr] 500 mg PO BID 30 Days #60 tab 02/08/20 cycloBENZAPRine HCl [Flexeril] 10 mg PO TID PRN #15 tab 02/28/20 Amox/Clavulanate Tablet [Augmentin Tablet] 875 mg PO Q12H #10 tab 03/04/20 Ibuprofen [Motrin] 600 mg PO Q8 3 Days #10 tab 03/04/20 Oxycodone [Oxyir] 5 mg PO Q8H PRN PRN 3 Days #10 tab 03/04/20 The patient was counseled on the following discharge medications and changes in medications for homegoing were reviewed. The Reason for Use, instructions for use, and potential side effects were reviewed for all new medications. The patient's questions regarding all of their medications were answered. The patient was able to verbally demonstrate an understanding of their discharge medications. Patient counseled by pharmacy sales representative, Philomena.
[2020-03-04] MEDS: Insulin Lispro 100 UNIT/ML INSULN.PEN SC (13:00)
[2020-03-04 13:32] VITALS: BP 151/81; PULSE 87; RESP 16; TEMP 36.9; O2SAT 98
--- NOTE | 2020-03-08 12:10 | CASEMGMT ---
KODI MCKENNA DC PHONE CALL DC DATE: 03/04/2020 DC Disposition: Home Diagnosis on Discharge: pneumonia LACE/STRATA: 10/09 Prescriptions obtained on dc: yes Intro role of CM to patient via phone. Patient sounded upbeat, states she is feeling better, and denies questions re: medications or instructions. She states her reviewed them with her. Follow up appointment has not been made, but patient states she will call this afternoon and schedule. KODI MCKENNA let her know to tell office staff that this will be a post-hospital visit. No further concerns and no care improvement suggestions were given. Leland ALEXANDER RN ACM
== END 2020-03-04 15:27 | disposition home or self-care (01) | DRG 194 ==
LOC: ED 21:31 → MS3 22:26
PROVIDERS: Admitting Provider Hospitalist; Emergency Provider Emergency Medicine; PCP Family Medicine; Visit Provider Hospitalist
DX: J18.9 Pneumonia, unspecified organism (principal); J98.11 Atelectasis; B37.41 Candidal cystitis and urethritis; R09.1 Pleurisy; E11.42 Type 2 diabetes mellitus with diabetic polyneuropathy; E11.65 Type 2 diabetes mellitus with hyperglycemia; I10 Essential (primary) hypertension; E78.2 Mixed hyperlipidemia; Z87.828 Personal history of other (healed) physical injury and trauma; Z91.19 Patient's noncompliance with other medical treatment and regimen; Z79.4 Long term (current) use of insulin; Z79.82 Long term (current) use of aspirin; Z79.899 Other long term (current) drug therapy; Z87.891 Personal history of nicotine dependence
CPT/HCPCS: 36415; 71101; 71275; 74177; 80048; 81001; 82962; 83605; 84145; 85025; 85610; 87040; 87086; 87088; 87449; 93005; 97110; 97116; 97162; 97166; 97530; 97535; 97802; 99251; 99282; J7030; J7050; A4216; G0463; J0696; J2405

== ENCOUNTER 2020-04-14 09:21 | Inpatient (IN) | payer OTHER, SELFPAY ==
[2020-04-14] VITALS (17 sets, daily range): BP systolic 104–146; BP diastolic 55–75; PULSE 69–98; RESP 14–18; TEMP 36.4–37.2; O2SAT 95–100; BMI 24.5; BMI 24.7
--- NOTE | 2020-04-14 09:49 | RAD_ITS ---
STUDY: X-RAY CHEST REASON FOR EXAM: Female, 60 years old. CP, DIZZINESS, FEELS LIKE SHE IS HAVING A PANIC ATTACK. RECENT HIP SURGERY. VELAZQUEZ, RECENT PNEUMONIA TECHNIQUE: Single AP portable view of the chest. COMPARISON: Comparison is made with prior study dated 03/02/2020. FINDINGS: EKG electrodes are seen. The previously seen linear density in the left midlung has improved. There is a residual 1.3 cm Bard 0.8 cm dense. There is no demonstrated pleural abnormality. Normal size heart. Normal mediastinum and estelle. Normal visualized pulmonary arteries. Normal visualized aortic arch and descending thoracic aorta. Normal visualized thoracic spine. Normal visualized ribs, clavicles, and shoulders. There is no demonstrated abnormality of the visualized soft tissue structures of the upper abdomen. RAD/Chest 1 View (Portable) IMPRESSION: Persistent 1.3 cm x 0.8 cm linear density in the left midlung. This has improved as compared to prior study. Electronically Signed: Ken Quiroz, at 10:37 EDT , Service support ,
--- NOTE | 2020-04-14 09:49 | EKG12_ITS ---
Test Reason : CP Blood Pressure : / mmHG Vent. Rate : 078 BPM Atrial Rate : 078 BPM P-R Int : 136 ms QRS Dur : 072 ms QT Int : 398 ms P-R-T Axes : 054 -15 038 degrees QTc Int : 453 ms Normal sinus rhythm Normal ECG Confirmed by KOJO ARIAS, KALEB ([id number]), order editor WASHINGTON MENODZA ([id number]) on 04/28/2020 9:29:43 A M Referred By: WARD/RAVEN Confirmed By:MIESHA VARMA MD
--- NOTE | 2020-04-14 09:50 | ED.VISSUMM ---
- ER Visit Summary Date of Service: 04/14/20 Chief Complaint: [Exertional dyspnea and chest discomfort] History of Present Illness: The patient is a 60 F [presents to the emergency department with increasing shortness of breath over the last several weeks. Patient states that she had surgery to repair a left broken hip on February 06. Patient had broken the hip after sustaining a fall. Patient subsequently had been complaining of back pain so she was seen in the emergency department couple weeks later and at one point diagnosed with pneumonia and was on Augmentin. Patient states that she is having severe exertional dyspnea at times. At times she feels like her heart is pounding. Patient at times has some vague discomfort in her chest. Is any fever or cough recently. She denies any exposures to COVID-19. Patient has history of diabetes, hypertension, and high cholesterol.] Physical Examination: [HEENT-PERRLA, EOMI. Cranial nerves II through XII grossly intact. TMs clear. Mucous membranes moist. No adenopathy. Cardiovascular-regular rate and rhythm without murmur or ectopy Lungs-clear to auscultation, chest wall stable without crepitus or subcu emphysema Abdomen-normoactive bowel sounds, soft, nontender, no rebound or rigidity, no peritoneal signs. Rectal exam performed had minimal amount of stool. Hemoccult was sent. No rectal masses. Extremities-intact ?4, normal range of motion, normal pulses, atraumatic] Test Results: [EKG obtained on arrival shows sinus rhythm with a ventricular rate of 78 bpm with no acute ST segment changes.] CBC with differential obtained showed a white count 7.0, hemoglobin 6.6, hematocrit 21. Sodium was 134, potassium 3.2, chloride 99, CO2 27, glucose 252. Troponin less than 0.015. D-dimer was less than 0.27. Chest x-ray showed left midlung density that has improved since last x-ray that now measures 1.3 x 0.8 cm. Emergency Department Course and Treatment: IV established. 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 Patient was given normal saline on arrival. Patient was typed and crossed for 1 unit packed red cells.] Treatment Plan: [Patient will be admitted] Disposition: [Admit] Impression: [Symptomatic anemia Dyspnea ] This note was generated with Get In dictation software. It may contain incorrect words, spelling, and punctuation that were not noted in review of the chart prior to signing ED Disposition - Plan for ED Patient: Referrals: Javier Levy MD [Primary Care Provider] -
[2020-04-14] MEDS: 0.9% Normal Saline 1,000 ML 150 ML IV (10:16)
[2020-04-14 10:18] LABS: Absolute Lymphocyte Count 2.42 X10^3/uL (0.83-4.51); Basophil# 0.03 X10^3/uL; Basophil% 0.4 % (0-1); Eosinophil# 0.16 X10^3/uL; Eosinophils% 2.3 % (0-5); Hemoglobin 6.6 g/dL (12.0-15.0); Lymphocyte # 2.42 X10^3/ul (4.0); Lymphocyte % 34.5 % (19-41); Mean Corp Hgb Conc 31.4 g/dL (32-36); Mean Corpuscular Hgb 25.3 pg (27.0-32.0); Mean Corpuscular Volume 80.5 fL (81-99); Mean Platelet Vol. 9.6 fl (6.2-12.0); Monocyte# 0.34 X10^3/uL; Monocyte% 4.9 % (0-10); NRBC Flagged by Analyzer 0 % (0-5); Neutrophil # 4.04 X10^3/uL (2.7-7.7); Neutrophil % 57.6 % (47-70); Platelet Count 230 K/mm3 (150-450); RBC Distribution Width CV 13.3 % (11.6-14.6); RBC Distribution Width SD 39.1 fl (35.1-43.9); Red Blood Count 2.61 M/mm3 (4.2-5.4)
[2020-04-14 10:35] LABS: Anion Gap 8 (5-15); BUN 18 mg/dL (7-18); BUN/Creat Ratio 19.1 RATIO (10-20); Calcium,Total 9.3 mg/dL (8.5-10.1); Chloride 99 mmol/L (98-107); Creatinine, Serum 0.94 mg/dL (0.55-1.02); EST Glomerular Filtration Rate 64 mL/min (>60); Est Glom Filt Rate - Afr Amer 78 mL/min (>60); Estimated Creatinine Clearance 51.33 ml/min; Glucose 252 mg/dL (74-106); Potassium 3.2 mmol/L (3.5-5.1); Sodium Level 134 mmol/L (136-145)
[2020-04-14 10:43] LABS: D-Dimer Quantitative (DVT/PE) <= 0.27 FEU/ug/m (0.27-0.49)
--- NOTE | 2020-04-14 12:16 | HP.PCM_ITS ---
Problem List (1) Acute anemia Status: Acute (2) GIB (gastrointestinal bleeding) Status: Acute (3) Osteoarthritis (arthritis due to wear and tear of joints) Status: Chronic (4) Diabetes mellitus Status: Chronic Qualifiers: (5) Polyneuropathy due to type 2 diabetes mellitus Status: Chronic (6) Benign essential hypertension Status: Chronic (7) Mixed hyperlipidemia Status: Chronic (8) Noncompliance with diabetes treatment Status: Chronic (9) Pneumonia Status: Inactive (10) Hypokalemia Status: Acute History of Present Illness Date of Admission: 04/14/20 Mrs. Echols is a 60 yo WF with a PMH as below who presents to the ED at [facility] on 04/14/2020 with SOB that has been getting progressively worse over the last several weeks. She states that she notices it a lot in therapy and she had worsening fatigue and VELAZQUEZ. She had surgery on 02/06 for a L hip fracture and a Closed reduction with a percutaneous pinning of the left hip was done s/p mechanical fall. She was then treated for a PNA but that had resolved and now she has SOB. She states that she also feels like her heart is pounding at times but denies any real CP. Her VSS but her hgb was noted to be 6.6 which is down from 11.4 on her last draw done here on 03/04/2020. She admits to having noticed dark stools and c/o constipation and feels like she is more pale than she usually is at baseline. She admits that she has been taking Aleve regularly; 2 tabs daily since surgery. She denies CP, nausea, vomiting, hematochezia, hemoptysis and diarrhea. She was typed and crossed and given 1 u PRBC in the ED and Dr. Huff was notified. Past Medical History Past Medical History (Chronic Problems): Chronic Problems (Last Updated 03/02/20 @ 09:[address] Kathryn Casey MD) Diabetes mellitus (Chronic) Polyneuropathy due to type 2 diabetes mellitus (Chronic) Benign essential hypertension (Chronic) Mixed hyperlipidemia (Chronic) Noncompliance with diabetes treatment (Chronic) Osteoarthritis (arthritis due to wear and tear of joints) (Chronic) Medical History: Medical History (Last Reviewed 04/14/20 @ 12:[address] Marielena Roberts DO) Diabetes E11.9 H/O transfusion of whole blood Z92.89 Hyperlipidemia E78.5 Liver disease K76.9 Neuropathy G62.9 Skin cancer C44.90 Vitamin D deficiency E55.9 Hypertension I10 Allergies No Known Allergies Allergy (Verified 02/28/20 15:32) Home Medications: Ambulatory Orders Medication Instructions Recorded metoprolol succinate 50 mg 50 mg PO DAILY 30 Days #30 tab 07/12/18 tablet,extended release 24 hr omega-3 acid ethyl esters 1 gram 2 cap PO DAILY cap 05/08/19 capsule omeprazole 40 mg capsule,delayed 40 mg PO DAILY 05/08/19 release Cholecalciferol (Vitamin D3) 2,000 unit PO DAILY 02/06/20 [Vitamin D3] Rosuvastatin Calcium [Crestor] 20 mg PO DAILY 02/06/20 Aspirin [Aspirin, Baby] 81 mg PO BIDCM #1 tab.chew 02/08/20 Lisinopril [Zestril] 20 mg PO DAILY #30 tab 02/08/20 Metformin HCl [Glucophage Xr] 500 mg PO BID 30 Days #60 tab 02/08/20 cycloBENZAPRine HCl [Flexeril] 10 mg PO TID PRN #15 tab 02/28/20 Insulin Glargine,Hum.rec.anlog 40 unit SQ QHS 04/14/20 [Lantus] Insulin NPH Human Isophane See Protocol SQ BID 04/14/20 [Humulin N] Surgical History: Surgical History (Last Reviewed 04/14/20 @ 12:[address] Marielena Roberts DO) H/O: Z98.891 1995 Status post surgical removal of malignant neoplasm of skin Z98.890 Surgical History: - - Percutaneous pinning of left femoral neck fracture. 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 Christophe Nowak MD) Father Arthritis Diabetes Myocardial infarction, Onset Age: 63 Heart disease Hypertension Sister Arthritis Diabetes Brother Diabetes Mental disorder Mother Hypertension Migraines Cerebral hemorrhage Review of Systems Constitutional: Reports: Malaise, Weakness, Fatigue. Denies: Anorexia, Chills, Fever, Night Sweats, Weight Change Eyes: Denies: Blurred vision, Drainage, Eyelid Inflammation, Pain, Redness, Vision Change HEENT: Denies: Difficulty Hearing, Difficulty Swallowing, Dysphasia, Ear Pain, Eye Pain, Hard of Hearing, Head Aches, Nasal bleeding, Nasal Congestion, Post Nasal Drip, Sinus Congestion, Sinus Drainage, Sore Throat, Visual Changes Cardiovascular: Denies: Chest Pain, Claudication, Chest Pressure, Chest Tightness, Edema, Heaviness, Light Headedness, Orthopnea, Palpitations, Paroxysmal Noc. Dyspnea, Syncope Respiratory: Reports: Shortness of Breath, Shortness of breath upon exertion. Denies: Cough, Hemoptysis, Pleuritic Pain, Shortness of breath at rest, Sputum production, Wheezing Gastrointestinal: Reports: Constipation, Melena - dark stools. Denies: Abdominal Pain, Diarrhea, Dyspepsia, Hematemesis, Hematochezia, Nausea, Vomiting Genitourinary: Denies: Dysuria, Frequency, Hematuria, Hesitancy, Incontinence, Nocturia, Retention, Urgency Musculoskeletal: Reports: Joint stiffness - L hip. Denies: Back Pain, Joint Pain, Joint swelling, Joint Tenderness, Leg Pain, Muscle pain, Neck Pain, Shoulder Pain Skin: Denies: Dryness, Jaundice, Lesions Neurological: Denies: Balance problems, Blurred vision, Double vision, Change in Speech, Slurred speech, Confusion, Difficulty swallowing, Focal weakness, Headaches, Incoordination, Numbness, Tingling, Tremor, Seizures Psychiatric: Denies: Anxiety, Depression Endocrine: Denies: Change in Body Habitus, Heat/ Cold Intolerance, Polydipsia, Polyuria Hematologic/ Lymphatic: Denies: Adenopathy, Anemia, Easy Bruising, Easy Bleeding, Petechiae, Purpura VTE Information - Inpt Only VTE Present on Admission: No VTE Mechan Device Prophylaxis: SCD's VTE Pharm Prophylaxis ordered?: No Reason prophylaxis not ordered:: Medical Contraindication Patient Problems: Active and Suspected Problems (Last Updated 03/02/20 @ 09:[address] Kathryn Casey MD) Acute anemia (Acute) GIB (gastrointestinal bleeding) (Acute) Hypokalemia (Acute) - Physical Exam Vitals/I&O's: Vital Signs Temp Pulse Resp BP Pulse Ox 97.6 F L 83 16 119/61 100 04/14/20 11:43 04/14/20 11:43 04/14/20 11:43 04/14/20 11:43 04/14/20 11:43 Oxygen Flow Rate (L/min) 2 Oxygen Delivery Method Nasal Cannula Weight: 62.8 kg Body Mass Index (BMI) 24.5 Intake and Output for Last 24 Hours 04/12/20 04/13/20 04/14/20 23:59 23:59 23:59 Intake Total Balance General: Alert, Oriented x3, Cooperative, No apparent distress, Well developed, Well nourished HEENT: Atraumatic, PERRLA, EOMI, Normocephalic, TM's Clear, EAC Clear, - - conjuntival pallor Oral: Moist Mucosa, No Gingival or Mucosal Lesions/ Ulcerations Neck: Supple, No JVD, Trachea Midline, Thyroid Normal Size and Texture Lungs: Clear to auscultation, Normal air movement, No rhonchi, No wheeze, No rales Cardiovascular: Regular rate, Regular Rhythm, Normal S1, Normal S2, No Ectopic Activity, Murmur - 2/6 SM, No rub noted, No Gallop Abdomen: Bowel Sounds Present, Soft, Non Tender, Non-Distended, No Hepato- splenomegaly, No hernias noted Extremities: No clubbing, No cyanosis, No edema, Capillary Refill Less than 3 Seconds, Peripheral Pulses Normal Skin: No rashes, No breakdown, - - pale Musculoskeletal: No Tenderness to Palpation of Joints or Extremities, No Muscle Wasting, Arthritic Changes Lymphatic: No Cervical, Supraclavicular, or Inguinal Adenopathy Neurological: Cranial nerves II-XII grossly intact, Deep Tendon Reflexes 2+/4 and Symmetrical, Neuro grossly intact, Muscle tone normal, Sensory exam intact to light touch and pain, Coordination normal Psych/Mental Status: Normal Affect, Appropriate, Alert and oriented to time, place, person, mood and affect Microbiology Past 72 Hours 04/14/20 11:00 Stool Stool Occult Blood (DILIP) - Final Occult Blood Positive Laboratory Results 04/14/20 10:12: WBC 7.0, RBC 2.61 L, Hgb 6.6 L, Hct 21.0 L, MCV 80.5 L, MCH 25.3 L, MCHC 31.4 L, RDW Std Deviation 39.1, RDW Coeff of Shameka 13.3, Plt Count 230, MPV 9.6, Immature Gran % (Auto) 0.300, Neut % (Auto) 57.6, Lymph % (Auto) 34.5, Wheeler % (Auto) 4.9, Eos % (Auto) 2.3, Baso % (Auto) 0.4, Absolute Neuts (auto) 4.0, Absolute Lymphs (auto) 2.42, Nucleated RBC % 0 04/14/20 10:12: D-Dimer Quant (PE/DVT) <= 0.27 04/14/20 10:12: Sodium 134 L, Potassium 3.2 L, Chloride 99, Carbon Dioxide 27.0, Anion Gap 8, BUN 18, Creatinine 0.94, Estim Creat Clear Calc 51.33, Est GFR (MDRD) Af Amer 78, Est GFR (MDRD) Non-Af 64, BUN/Creatinine Ratio 19.1, Glucose 252 H, Calcium 9.3, Troponin I < 0.015 04/14/20 11:10: Blood Type Pending, Antibody Screen Pending, Crossmatch See Detail Current Medications Sodium Chloride () 1,000 mls @ 150 mls/hr IV .Q6H40M MICHEL Last Admin: 04/14/20 10:16 Dose: 150 mls/hr Documented by: Assessment/Plan All Active Problems (Last Updated 03/02/20 @ 09:[address] Kathryn Casey MD) Acute anemia (Acute) GIB (gastrointestinal bleeding) (Acute) Hypokalemia (Acute) SOB 2/2 Acute Anemia -symptomatic -transfuse 1 u PRBC -q 6 hr H&H after blood for stability -may need another unit -Hemoccult is pending -Dr. Huff consulted for scope -will leave pt NPO for now to see if we can do EGD today and if not allow for CLD -protonix IV BID -hold home ASA Hypokalemia -40 mEq IV and recheck with Mag in am DM-2 -will half home dose of Lantus for now (20 u) -SSI q 6 hrs until on PO HTN/HPL -continue Home meds Recent PNA -rx completed -IS Recent L hip fx s/p mech fall -stable GERD -protonix BID IV for now Vit D Deficiency -continue home meds DVT Prophylaxis -SCD Code Status -Full Inpatient E&M: 87658 Subs Hosp L3
--- NOTE | 2020-04-14 13:01 | PCM.CONS.GEN ---
Problem List (1) Acute anemia Status: Acute (2) GIB (gastrointestinal bleeding) Status: Acute Reason for Consult Date of Consultation: 04/14/20 Reason for Consultation: Acute anemia History of Present Illness: The patient is a 60 year old F who presents with weakness, shortness of breath and heart palpation. Patient has noted increased tiredness and weakness x 3 weeks. Patient notes she had a fall and left hip fracture with associated surgery on February 05. Patient noted melena approximately 1-2 weeks after discharge. Patient was scheduled to follow-up with her PCP today due to she thought her symptoms were secondary to medication she is taking. Patient stated she has been participating in physical therapy following her hip surgery. She noted progressing very well until the last couple weeks when she tired to increase weight and she was having difficulty. She noted becoming extremely tired walking from her bedroom to her bathroom. Patient denies abdominal pain, bright red blood per rectum, heartburn, reflux. She notes her last colonoscopy was by Dr. Rey approximately 3-4 years ago. She notes a previous EGD approximately 10 years ago. Patient states she has been taking Aleve twice a day for 2 weeks. She notes taking omeprazole 40 mg x 13-15 years. Patient denies previous cardiac history. She denies previous complications with anesthesia. Occult blood test was obtained which returned as positive. Past Medical History Past Medical History (Chronic Problems): Chronic Problems (Last Reviewed 04/14/20 @ 13:24 by Yue GRANADO, PA-C) Diabetes mellitus (Chronic) Polyneuropathy due to type 2 diabetes mellitus (Chronic) Benign essential hypertension (Chronic) Mixed hyperlipidemia (Chronic) Noncompliance with diabetes treatment (Chronic) Osteoarthritis (arthritis due to wear and tear of joints) (Chronic) Medical History: Medical History (Last Reviewed 04/14/20 @ 13:24 by Yue GRANADO, PA-C) Diabetes E11.9 H/O transfusion of whole blood Z92.89 Hyperlipidemia E78.5 Liver disease K76.9 Neuropathy G62.9 Skin cancer C44.90 Vitamin D deficiency E55.9 Hypertension I10 Allergies No Known Allergies Allergy (Verified 02/28/20 15:32) Home Medications: Ambulatory Orders Medication Instructions Recorded metoprolol succinate 50 mg 50 mg PO DAILY 30 Days #30 tab 07/12/18 tablet,extended release 24 hr omega-3 acid ethyl esters 1 gram 2 cap PO DAILY cap 11/08/19 capsule omeprazole 40 mg capsule,delayed 40 mg PO DAILY 05/08/19 release Cholecalciferol (Vitamin D3) 2,000 unit PO DAILY 02/06/20 [Vitamin D3] Rosuvastatin Calcium [Crestor] 20 mg PO DAILY 02/06/20 Aspirin [Aspirin, Baby] 81 mg PO BIDCM #1 tab.chew 02/08/20 Lisinopril [Zestril] 20 mg PO DAILY #30 tab 02/08/20 Metformin HCl [Glucophage Xr] 500 mg PO BID 30 Days #60 tab 02/08/20 cycloBENZAPRine HCl [Flexeril] 10 mg PO TID PRN #15 tab 02/28/20 Insulin Glargine,Hum.rec.anlog 40 unit SQ QHS 04/14/20 [Lantus] Insulin NPH Human Isophane See Protocol SQ BID 04/14/20 [Humulin N] Surgical History: Surgical History (Last Reviewed 04/14/20 @ 13:25 by Yue GRANADO, PA-C) H/O: Z98.891 1995 Status post surgical removal of malignant neoplasm of skin Z98.890 Surgical History: - - Percutaneous pinning of left femoral neck fracture. 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 Lives: Spouse/ Significant Other Smoking Status: Former smoker Alcohol: Rare Drugs: None - *Family History Maternal Family History: Family History (Last Reviewed 04/14/20 @ 13:25 by Yue GRANADO PA-C) Father Arthritis Diabetes Myocardial infarction, Onset Age: 63 Heart disease Hypertension Sister Arthritis Diabetes Brother Diabetes Mental disorder Mother Hypertension Migraines Cerebral hemorrhage Review of Systems Constitutional: Reports: Weakness, Fatigue HEENT: Denies: Head Aches, Sinus Congestion, Sinus Drainage Cardiovascular: Reports: Chest Pain Respiratory: Reports: Shortness of Breath Gastrointestinal: Reports: Constipation, Melena. Denies: Abdominal Pain, Diarrhea, Dyspepsia, Hematemesis, Hematochezia, Nausea, Vomiting Genitourinary: Denies: Dysuria Musculoskeletal: Denies: Joint Pain, Joint Tenderness Skin: Denies: Rash, Wounds Neurological: Denies: Numbness, Tingling, Focal weakness Psychiatric: Denies: Anxiety, Depression, Homicidal Ideations, Suicidal Ideations Hematologic/ Lymphatic: Reports: Anemia Patient Problems: Active and Suspected Problems (Last Reviewed 04/14/20 @ 13:24 by Yue GRANADO PA-C) Acute anemia (Acute) GIB (gastrointestinal bleeding) (Acute) Hypokalemia (Acute) - Physical Exam Vitals/I&O's: Vital Signs Temp Pulse Resp BP Pulse Ox 97.6 F L 83 16 119/61 100 04/14/20 11:43 04/14/20 11:43 04/14/20 11:43 04/14/20 11:43 04/14/20 11:43 Oxygen Flow Rate (L/min) 2 Oxygen Delivery Method Nasal Cannula Weight: 138 lb 7.205 oz Body Mass Index (BMI) 24.5 Intake and Output for Last 24 Hours 04/12/20 04/13/20 04/14/20 23:59 23:59 23:59 Intake Total / Balance / General: Alert, Oriented x3, Cooperative HEENT: Atraumatic, PERRLA, EOMI, Normocephalic Neck: Supple, No JVD, Negative Carotid Bruits Lungs: Clear to auscultation, Normal air movement Cardiovascular: Regular rate, No murmurs Abdomen: Bowel Sounds Present, Soft, Non Tender Extremities: No edema, Capillary Refill Less than 3 Seconds Skin: No rashes, No breakdown Musculoskeletal: No Tenderness to Palpation of Joints or Extremities Neurological: Neuro grossly intact Psych/Mental Status: Normal Affect, Appropriate Microbiology Past 72 Hours 04/14/20 11:00 Stool Stool Occult Blood (DILIP) - Final Occult Blood Positive Laboratory Results 04/14/20 10:12: WBC 7.0, RBC 2.61 L, Hgb 6.6 L, Hct 21.0 L, MCV 80.5 L, MCH 25.3 L, MCHC 31.4 L, RDW Std Deviation 39.1, RDW Coeff of Shameka 13.3, Plt Count 230, MPV 9.6, Immature Gran % (Auto) 0.300, Neut % (Auto) 57.6, Lymph % (Auto) 34.5, Garland % (Auto) 4.9, Eos % (Auto) 2.3, Baso % (Auto) 0.4, Absolute Neuts (auto) 4.0, Absolute Lymphs (auto) 2.42, Nucleated RBC % 0 04/14/20 10:12: D-Dimer Quant (PE/DVT) <= 0.27 04/14/20 10:12: Sodium 134 L, Potassium 3.2 L, Chloride 99, Carbon Dioxide 27.0, Anion Gap 8, BUN 18, Creatinine 0.94, Estim Creat Clear Calc 51.33, Est GFR (MDRD) Af Amer 78, Est GFR (MDRD) Non-Af 64, BUN/Creatinine Ratio 19.1, Glucose 252 H, Calcium 9.3, Troponin I < 0.015 04/14/20 11:10: Blood Type O NEGATIVE, Antibody Screen NEGATIVE, Crossmatch See Detail Current Medications Sodium Chloride () 1,000 mls @ 150 mls/hr IV .Q6H40M MICHEL Last Admin: 04/14/20 10:16 Dose: 150 mls/hr Documented by: Pantoprazole Sodium 40 mg/ (Sodium Chloride) 110 mls @ 330 mls/hr IV Q12 MICHEL Assessment/Plan All Active Problems (Last Reviewed 04/14/20 @ 13:24 by Yue GRANADO PAJesusC) Acute anemia (Acute) GIB (gastrointestinal bleeding) (Acute) Hypokalemia (Acute) I am seeing this patient in consultation in conjunction with Dr. Huff. Impression: Acute anemia. Likely upper GI etiology Plan: Discussed patient with Dr. Huff. Dr. Huff will plan to perform an upper scope tomorrow. Procedure details, risks and benefits have been explained. NPO after midnight. Patient has had the opportunity to ask and have questions answered. Patient verbally understands and agrees with the plan. Thank you for allowing us to participate in this patient's care. Office Visits / Consults: [id number] IP Consult L3
[2020-04-14 15:16] LABS: Bedside Glucose 119 mg/dL (70-110)
[2020-04-14 16:54] LABS: Hemoglobin 7.1 g/dL (12.0-15.0)
[2020-04-14] MEDS: Atorvastatin Calcium 40 MG Tablet PO (22:43)
[2020-04-14] MEDS: Omega-3 Acid Ethyl Esters 1 GM Capsule PO (22:43)
[2020-04-14] MEDS: Zolpidem Tartrate 5 MG Tablet PO (22:43)
[2020-04-14 22:51] LABS: Hemoglobin 6.3 g/dL (12.0-15.0)
[2020-04-14 23:31] LABS: Bedside Glucose 144 mg/dL (70-110)
[2020-04-15] VITALS (24 sets, daily range): BP systolic 98–153; BP diastolic 50–79; PULSE 74–111; RESP 16–20; TEMP 36.4–37.5; O2SAT 95–100; BMI 24.7
[2020-04-15] MEDS: 0.9% Saline Lock 10 ML Syringe IV ×2 (00:36→06:55)
[2020-04-15 01:26] LABS: Bedside Glucose 137 mg/dL (70-110)
[2020-04-15 04:22] LABS: Basophil# 0.03 X10^3/uL; Basophil% 0.4 % (0-1); Eosinophil# 0.19 X10^3/uL; Eosinophils% 2.8 % (0-5); Hemoglobin 7.9 g/dL (12.0-15.0); Lymphocyte % 47.8 % (19-41); Mean Corp Hgb Conc 31.6 g/dL (32-36); Mean Corpuscular Hgb 26.5 pg (27.0-32.0); Mean Corpuscular Volume 83.9 fL (81-99); Mean Platelet Vol. 9.8 fl (6.2-12.0); Monocyte% 4.5 % (0-10); NRBC Flagged by Analyzer 0 % (0-5); Neutrophil # 2.96 X10^3/uL (2.7-7.7); Neutrophil % 44.2 % (47-70); Platelet Count 182 K/mm3 (150-450); RBC Distribution Width CV 13.6 % (11.6-14.6); RBC Distribution Width SD 41.4 fl (35.1-43.9); Red Blood Count 2.98 M/mm3 (4.2-5.4); White Blood Count 6.7 K/mm3 (4.4-11.0)
[2020-04-15 04:33] LABS: International Normalized Ratio 1.1; Prothrombin Time (Protime)PT. 14.1 SECONDS (11.7-14.9)
[2020-04-15 04:34] LABS: Partial Thromboplast Time 28.3 Seconds (24.1-36.2)
[2020-04-15 04:38] LABS: Anion Gap 5 (5-15); BUN 13 mg/dL (7-18); Calcium,Total 8.1 mg/dL (8.5-10.1); Chloride 111 mmol/L (98-107); Creatinine, Serum 0.68 mg/dL (0.55-1.02); EST Glomerular Filtration Rate 92 mL/min (>60); Est Glom Filt Rate - Afr Amer 112 mL/min (>60); Estimated Creatinine Clearance 70.96 ml/min; Glucose 120 mg/dL (74-106); Magnesium 1.9 mg/dL (1.6-2.6); Phosphorus 4.1 mg/dL (2.5-4.9); Potassium 3.1 mmol/L (3.5-5.1); Sodium Level 142 mmol/L (136-145)
[2020-04-15 07:00] LABS: Bedside Glucose 129 mg/dL (70-110)
--- NOTE | 2020-04-15 10:18 | OP.EGD_ITS ---
Patient Name: Lakisha Echols Procedure Date: 04/15/2020 10:03 AM Date of : 1960 Age: 60 Procedure: Upper GI endoscopy Indications: Iron deficiency anemia secondary to chronic blood loss, Melena Providers: Jaxson Huff MD Medicines: Monitored Anesthesia Care Patient Profile: This is a 60 year old female. Refer to note in patient chart for documentation of history and physical. Complications: No immediate complications. Estimated blood loss: None. Procedure: Pre-Anesthesia Assessment: - Prior to the procedure, a History and Physical was performed, and patient medications and allergies were reviewed. The patient's tolerance of previous anesthesia was also reviewed. The risks and benefits of the procedure and the sedation options and risks were discussed with the patient. All questions were answered, and informed consent was obtained. Prior Anticoagulants: The patient has taken no previous anticoagulant or antiplatelet agents. After reviewing the risks and benefits, the patient was deemed in satisfactory condition to undergo the procedure. After obtaining informed consent, the endoscope was passed under direct vision. Throughout the procedure, the patient's blood pressure, pulse, and oxygen saturations were monitored continuously. The Endoscope was introduced through the mouth, and advanced to the third part of duodenum. The upper GI endoscopy was accomplished without difficulty. The patient tolerated the procedure well. Scope In: 10:10:21 AM Scope Out: 10:13:57 AM Total Procedure Duration Time 0 hours 3 minutes 36 seconds Findings: The esophagus was normal. The stomach was normal. The examined duodenum was normal. Impression: - Normal esophagus. - Normal stomach. - Normal examined duodenum. - No specimens collected. Recommendation: - Return patient to hospital up for ongoing care. - Resume previous diet. - Continue present medications. - Return to my office in 1 week. Procedure Code(s): --- Professional --- 19400, Esophagogastroduodenoscopy, flexible, transoral; diagnostic, including collection of specimen(s) by brushing or washing, when performed (separate procedure) Diagnosis Code(s): --- Professional --- D50.0, Iron deficiency anemia secondary to blood loss (chronic) K92.1, Melena (includes Hematochezia) CPT copyright 2017 [employer]. All rights reserved. The codes documented in this report are preliminary and upon him coder review may be revised to meet current compliance requirements. Jaxson Huff MD 04/15/2020 10:17:46 AM This report has been signed electronically. Number of Addenda: 0 Note Initiated On: 04/15/2020 10:03 AM
--- NOTE | 2020-04-15 10:18 | OP.CCLET_ITS ---
04/15/2020 Javier Levy [address] [place] [address] Re : Upper GI endoscopy procedure for Lakisha Echols Dear Dr. Levy This procedure was performed on Wednesday, April 15, 2020. My impressions and recommendations are as follows: Impressions : - Normal esophagus. - Normal stomach. - Normal examined duodenum. - No specimens collected. Recommendations : - Return patient to hospital up for ongoing care. - Resume previous diet. - Continue present medications. - Return to my office in 1 week. My findings are described in the full procedure note, which is enclosed. If I can be of further assistance, please feel free to contact me at Doctor phone number(s): , Work: . Sincerely, Jaxson Huff MD 04/15/2020 10:17:46 AM This report has been signed electronically.
--- NOTE | 2020-04-15 10:22 | PCM.PN.BLA ---
Progress Note I performed an EGD on the patient which was normal. There is no blood or ulcers. Esophagus, stomach, duodenum were all normal. I will start patient on a regular diet and return her back to the floor. I would like her to follow-up with me next week to schedule an outpatient colonoscopy. Jaxson Huff MD Pager: [facility] [address] [place] [address], [address] [place] [address] Office: [facility] Vital Signs/Narrative: Vital Signs Temp Pulse Resp BP Pulse Ox 04/15/20 08:05 98.6 F 88 18 134/77 H 100 04/15/20 08:01 111 H 04/15/20 07:45 98
--- NOTE | 2020-04-15 10:28 | DCINST_ITS ---
- Discharge Diagnoses Current Active Problems: Current Active and Chronic Problems (Last Reviewed 04/14/20 @ 13:24 by Yue GRANADO PAJesusC) Diabetes mellitus (Chronic) Polyneuropathy due to type 2 diabetes mellitus (Chronic) Benign essential hypertension (Chronic) Mixed hyperlipidemia (Chronic) Noncompliance with diabetes treatment (Chronic) Acute anemia (Acute) GIB (gastrointestinal bleeding) (Acute) Osteoarthritis (arthritis due to wear and tear of joints) (Chronic) Hypokalemia (Acute) You will use the following diet at home:: Calorie/Carbohydrate Controlled (specify 1200, 1400, etc), Cardiac Your food should be the consistency of: Regular Your liquids should be the consistency of: Regular/Thin Discharge Activity: Return to Normal Activity, No Restrictions, May Drive Call your doctor if you observe: Shortness of breath, Dizziness, Fainting spells Allergies/Adverse Reactions: Allergies cyclobenzaprine [From Flexeril] Adverse Reaction (Verified 04/14/20 14:54) PT UNSURE OF REACTION Medications to take at Discharge metoprolol succinate 50 mg tablet,extended release 24 hr 50 mg PO DAILY 30 Days #30 tab 07/12/18 omega-3 acid ethyl esters 1 gram capsule 2 cap PO DAILY cap 05/08/19 omeprazole 40 mg capsule,delayed release 40 mg PO DAILY 05/08/19 Cholecalciferol (Vitamin D3) [Vitamin D3] 2,000 unit PO DAILY 02/06/20 Rosuvastatin Calcium [Crestor] 20 mg PO DAILY 02/06/20 Insulin Glargine,Hum.rec.anlog [Lantus] 40 unit SQ QHS 04/14/20 Insulin NPH Human Isophane [Humulin N] See Protocol SQ BID 04/14/20 Lisinopril [Zestril] 20 mg PO DAILY 04/14/20 Metformin HCl [Glucophage Xr] 500 mg PO DAILY 04/14/20 Primary Care Physician: Javier Levy MD [Primary Care Provider] - Please follow up with your Primary Care Physician in: 1-2 weeks Test Results: Test results from this visit will be discussed in further detail at your follow- up appointment, if applicable. Please Follow Up With: Jaxson Huff MD When: Next week to get scheduled for an outpatient colonoscopy
--- NOTE | 2020-04-15 10:36 | PCM.DC.SUM ---
Discharge Date and Diagnosis - Problem List Patient Problems: Active and Suspected Problems (Last Reviewed 04/14/20 @ 13:24 by Yue GRANADO PA-C) Acute anemia (Acute) GIB (gastrointestinal bleeding) (Acute) Hypokalemia (Acute) Date of Admission: 04/14/20 Date of Discharge: 04/15/20 - Primary Discharge Diagnosis Acute Problems: Active Problems (Last Reviewed 04/14/20 @ 13:24 by Yue GRANADO PA-C) Acute anemia (Acute) GIB (gastrointestinal bleeding) (Acute) Hypokalemia (Acute) - Secondary Discharge Diagnosis Chronic Problems: Chronic Problems (Last Reviewed 04/14/20 @ 13:24 by Yue GRANADO PA-C) Diabetes mellitus (Chronic) Polyneuropathy due to type 2 diabetes mellitus (Chronic) Benign essential hypertension (Chronic) Mixed hyperlipidemia (Chronic) Noncompliance with diabetes treatment (Chronic) Osteoarthritis (arthritis due to wear and tear of joints) (Chronic) Hospital Course and Treatment Imaging Results: Patient Name: Lakisha Echols Procedure Date: 04/15/2020 10:03 AM Date of : 1960 Age: 60 Procedure: Upper GI endoscopy Indications: Iron deficiency anemia secondary to chronic blood loss, Melena Providers: Jaxson Huff MD Medicines: Monitored Anesthesia Care Patient Profile: This is a 60 year old female. Refer to note in patient chart for documentation of history and physical. Complications: No immediate complications. Estimated blood loss: None. Procedure: Pre-Anesthesia Assessment: - Prior to the procedure, a History and Physical was performed, and patient medications and allergies were reviewed. The patient's tolerance of previous anesthesia was also reviewed. The risks and benefits of the procedure and the sedation options and risks were discussed with the patient. All questions were answered, and informed consent was obtained. Prior Anticoagulants: The patient has taken no previous anticoagulant or antiplatelet agents. After reviewing the risks and benefits, the patient was deemed in satisfactory condition to undergo the procedure. After obtaining informed consent, the endoscope was passed under direct vision. Throughout the procedure, the patient's blood pressure, pulse, and oxygen saturations were monitored continuously. The Endoscope was introduced through the mouth, and advanced to the third part of duodenum. The upper GI endoscopy was accomplished without difficulty. The patient tolerated the procedure well. Scope In: 10:10:21 AM Scope Out: 10:13:57 AM Total Procedure Duration Time 0 hours 3 minutes 36 seconds Findings: The esophagus was normal. The stomach was normal. The examined duodenum was normal. Impression: - Normal esophagus. - Normal stomach. - Normal examined duodenum. - No specimens collected. Recommendation: - Return patient to hospital up for ongoing care. - Resume previous diet. - Continue present medications. - Return to my office in 1 week. Procedure Code(s): --- Professional --- 89455, Esophagogastroduodenoscopy, flexible, transoral; diagnostic, including collection of specimen(s) by brushing or washing, when performed (separate procedure) Diagnosis Code(s): --- Professional --- D50.0, Iron deficiency anemia secondary to blood loss (chronic) K92.1, Melena (includes Hematochezia) CPT copyright 2017 [employer]. All rights reserved. The codes documented in this report are preliminary and upon underground conduit installer review may be revised to meet current compliance requirements. Jaxson Huff MD 04/15/2020 10:17:46 AM This report has been signed electronically. Number of Addenda: 0 Note Initiated On: 04/15/2020 10:03 AM General Surgery Operations: None Procedures: EGD Summary of Care Provided: Mrs. Echols is a 60 yo WF with a PMH as below who presented to the ED at [facility] on 04/14/2020 with SOB that has been getting progressively worse over the last several weeks. She stated that she noticed it a lot in therapy and she had worsening fatigue and VELAZQUEZ. She had surgery on 02/06 for a L hip fracture and a closed reduction with a percutaneous pinning of the left hip was done s/p mechanical fall. She was then treated for a PNA but that had resolved and she had new SOB. She stated that she also felt like her heart was pounding at times but denied any real CP. Her VSS but her hgb was noted to be 6.6 on admission which is down from 11.4 on her last draw done here on 03/04/2020. She admitted to having noticed dark stools and c/o constipation and feels like she is more pale than she usually is at baseline. She admitted that she has been taking Aleve regularly; 2 tabs daily since surgery. She was transfused a total of 3 u PRBC and her hgb was > 8 at discharge after the 3 u were given. She was seen by Dr. Kern and taken for an EGD which was negative for a source of . Since she is not having signs of active bleeding or further melanotic stools he would like her to f/u in his office next week and have an outpt colonoscopy arranged. I would recommend a repeat CBC next week as well. She states that she is much less SOB and her energy is better since her transfusions. Pt voiced understanding with plan and was d/c in stable condition to home. Of note a murmur was noted on exam. I originally thought that it could be a flow murmur 2/2 anemia but it was still present on 04/14. Her hgb at that time was 7.9 so this still could be a flow murmur but I did discuss this with her and if it is persistent when her anemia is better I would recommend and ECHO as an outpt. Discharge Dx SOB 2/2 anemia Acute Anemia Cardiac Murmur Hypokalemia DM-2 Recent L Hip fx s/p pinning GERD Vitamin D Deficiency HTN HPL Patient Problems: Active and Suspected Problems (Last Reviewed 04/14/20 @ 13:24 by Yue GRANADO PAJesusC) Acute anemia (Acute) GIB (gastrointestinal bleeding) (Acute) Hypokalemia (Acute) Subjective: Pt states that she is feeling a lot better since admission and getting the blood. Is frustrated that we did not find a source but understands that she needs a c-scope. - Physical Exam Vitals/I&O's: Vital Signs Temp Pulse Resp BP Pulse Ox 98.1 F 81 20 H 108/59 L 98 04/15/20 10:35 04/15/20 10:35 04/15/20 10:35 04/15/20 10:35 04/15/20 10:35 Oxygen Flow Rate (L/min) 2 Oxygen Delivery Method Room Air Weight: 63.2 kg Body Mass Index (BMI) 24.7 Intake and Output for Last 24 Hours 04/13/20 04/14/20 04/15/20 23:59 23:59 23:59 Intake Total 2084 700 / 700 Output Total 1100 / 1100 Balance 2084 -400 / -400 General: Alert, Oriented x3, Cooperative, No apparent distress, Well developed, Well nourished, - - upper middle aged WF lying in bed appears comfortable, and nurse at bedside, less pale than on admission HEENT: Atraumatic, Normocephalic Oral: Moist Mucosa Neck: Supple, Trachea Midline Lungs: Clear to auscultation, Normal air movement, No rhonchi, No wheeze, No rales Cardiovascular: Regular rate, Regular Rhythm, Normal S1, Normal S2, Murmur - 3/6 SM Abdomen: Bowel Sounds Present, Soft, Non Tender, Non-Distended, No Hepato-splenomegaly Extremities: No clubbing, No cyanosis, No edema, Capillary Refill Less than 3 Seconds, Peripheral Pulses Normal Skin: No rashes, No breakdown Neurological: Cranial nerves II-XII grossly intact, Neuro grossly intact Psych/Mental Status: Normal Affect, Appropriate, Alert and oriented to time, place, person, mood and affect Microbiology Past 72 Hours 04/14/20 11:00 Stool Stool Occult Blood (DILIP) - Final Occult Blood Positive Laboratory Results 04/14/20 10:12: D-Dimer Quant (PE/DVT) <= 0.27 04/14/20 10:12: Sodium 134 L, Potassium 3.2 L, Chloride 99, Carbon Dioxide 27.0, Anion Gap 8, BUN 18, Creatinine 0.94, Estim Creat Clear Calc 51.33, Est GFR (MDRD) Af Amer 78, Est GFR (MDRD) Non-Af 64, BUN/Creatinine Ratio 19.1, Glucose 252 H, Calcium 9.3, Troponin I < 0.015 04/14/20 11:10: Blood Type O NEGATIVE, Antibody Screen NEGATIVE, Crossmatch See Detail 04/14/20 11:10: Crossmatch See Detail 04/14/20 15:11: POC Glucose 119 H 04/14/20 16:40: Hgb 7.1 L 04/14/20 22:34: Hgb 6.3 L 04/14/20 22:40: POC Glucose 144 H 04/15/20 00:33: POC Glucose 137 H 04/15/20 04:15: WBC 6.7, RBC 2.98 L, Hgb 7.9 L, Hct 25.0 L, MCV 83.9, MCH 26.5 L, MCHC 31.6 L, RDW Std Deviation 41.4, RDW Coeff of Shameka 13.6, Plt Count 182, MPV 9.8, Immature Gran % (Auto) 0.300, Neut % (Auto) 44.2 L, Lymph % (Auto) 47.8 H, Cuming % (Auto) 4.5, Eos % (Auto) 2.8, Baso % (Auto) 0.4, Absolute Neuts (auto) 3.0, Absolute Lymphs (auto) 3.20, Nucleated RBC % 0 04/15/20 04:15: Sodium 142, Potassium 3.1 L, Chloride 111 H, Carbon Dioxide 26.0, Anion Gap 5, BUN 13, Creatinine 0.68, Estim Creat Clear Calc 70.96, Est GFR (MDRD) Af Amer 112, Est GFR (MDRD) Non-Af 92, BUN/Creatinine Ratio 19.0, Glucose 120 H, Calcium 8.1 L, Phosphorus 4.1, Magnesium 1.9 04/15/20 04:15: PT 14.1, INR 1.1, APTT 28.3 04/15/20 06:54: POC Glucose 129 H Current Medications Acetaminophen (Acetaminophen 325 Mg Tablet) 650 mg PO Q6H PRN PRN PRN Reason: Pain Score 1-10/Temp > 100.7 F Atorvastatin Calcium (Atorvastatin Calcium 40 Mg Tablet) 40 mg PO QHS [facility] Last Admin: 04/14/20 22:43 Dose: 40 mg Documented by: Cholecalciferol (Cholecalciferol (Vit D3) 1,000 Unit (25mcg)) 2,000 unit PO DAILY [facility] Cyclobenzaprine HCl (Cyclobenzaprine Hcl 10 Mg Tablet) 10 mg PO TID PRN PRN Reason: MS Insulin Glargine (Insulin Glargine 100 Units/Ml Pen) 20 units SC QHS [facility] Last Admin: 04/14/20 22:43 Dose: 20 u Documented by: Insulin Human Lispro (Insulin Lispro 100 Unit/Ml Insuln.Pen) 0 unit SC Q6 [facility]; Protocol Last Admin: 04/15/20 06:55 Dose: Not Given Documented by: Lisinopril (Lisinopril 20 Mg Tablet) 20 mg PO DAILY [facility] Melatonin (Melatonin 3 Mg Tablet) 3 mg PO QHS PRN PRN PRN Reason: INSOMNIA Metformin HCl (Metformin (Xr) 500 Mg Tablet) [facility] Last Admin: 04/15/20 08:05 Dose: Not Given Documented by: Metoprolol Succinate (Metoprolol(Xl)Succ 50 Mg Tablet) 50 mg PO DAILY [facility] [id number] Ethyl Esters (Bells-3 Acid Ethyl Esters 1 Gm Capsule) 1 gm PO BID [facility] Last Admin: 04/14/20 22:43 Dose: 1 gm Documented by: Ondansetron HCl (Ondansetron 4 Mg/2 Ml Vial) 4 mg IV Q8H PRN PRN PRN Reason: NAUSEA/VOMITING Pantoprazole Sodium (Pantoprazole Sodium 40 Mg Tablet) 40 mg PO DAILY [facility] Sodium Chloride (0.9% Saline Lock 10 Ml Syringe) 10 - 40 ml IV UD PRN PRN Reason: SALINE FLUSH Last Admin: 04/15/20 06:55 Dose: 10 ml Documented by: Zolpidem Tartrate (Zolpidem Tartrate 5 Mg Tablet) 5 mg PO QHS PRN PRN PRN Reason: INSOMNIA Last Admin: 04/14/20 22:43 Dose: 5 mg Documented by: Discharge Activity: Return to Normal Activity, No Restrictions, May Drive Call your doctor if you observe: Shortness of breath, Dizziness, Fainting spells Home Medications: Medications to take at Discharge metoprolol succinate 50 mg tablet,extended release 24 hr 50 mg PO DAILY 30 Days #30 tab 07/12/18 omega-3 acid ethyl esters 1 gram capsule 2 cap PO DAILY cap 05/08/19 omeprazole 40 mg capsule,delayed release 40 mg PO DAILY 05/08/19 Cholecalciferol (Vitamin D3) [Vitamin D3] 2,000 unit PO DAILY 02/06/20 Rosuvastatin Calcium [Crestor] 20 mg PO DAILY 02/06/20 Insulin Glargine,Hum.rec.anlog [Lantus] 40 unit SQ QHS 04/14/20 Insulin NPH Human Isophane [Humulin N] See Protocol SQ BID 04/14/20 Lisinopril [Zestril] 20 mg PO DAILY 04/14/20 Metformin HCl [Glucophage Xr] 500 mg PO DAILY 04/14/20 Primary Care Physician: Javier Levy MD [Primary Care Provider] - Please follow up with your Primary Care Physician in: 1-2 weeks Please Follow Up With: Jaxson Huff MD When: Next week to get scheduled for an outpatient colonoscopy Medical Necessity - Tobacco Use Smoking Status: Former smoker Tobacco Use: Cigarettes Meaningful Use Info Meaningful Use Diagnoses (Choose all that apply): None applicable Inpatient E&M: 12721 [facility]
--- NOTE | 2020-04-15 11:15 | CASEMGMT ---
RN CM Face to Face with patient for initial transition planning/care coordination assessment. RN CM introduced self and role at [facility]. Patient lying in bed, alert and oriented, at bedside. Patient willing to participate in assessment and is able to answer all questions appropriately. Care providers, pharmacy, and demographics verified. Patient wishes to discharge home, with resumption of outpatient therapy at [facility] when medically cleared. Patient states she has no further needs or concerns at this time. CM to follow for discharge planning needs that may arise. PCP: Cam Specialists: [facility]; [facility] Preferred Pharmacy: [facility] Insurance: [employer] Prescription Benefit: yes Living Will/HPOA: none LNOK: Living Arrangements: Patient lives with in a ranch style home with 2 steps to enter. Patient states she is independent at home. Transportation: self/ DME/HHC: Patient states she has crutches and walker at home. Patient was attending Disposition Plan: Patient to discharge home with outpatient therapy, family support, and follow-up plans in place.
[2020-04-15] MEDS: Omega-3 Acid Ethyl Esters 1 GM Capsule PO (11:23)
[2020-04-15] MEDS: Pantoprazole Sodium 40 MG Tablet PO (11:23)
[2020-04-15] MEDS: Metoprolol(XL)Succ 50 MG Tablet PO (11:23)
[2020-04-15] MEDS: Lisinopril 20 MG Tablet PO (11:23)
[2020-04-15 11:30] LABS: Bedside Glucose 110 mg/dL (70-110)
== END 2020-04-15 15:30 | disposition home or self-care (01) | DRG 812 ==
LOC: ED 09:42 → MS3 13:48
PROVIDERS: Anesthesiology; Surgery; Admitting Provider Internal Medicine; Emergency Provider Emergency Medicine; PCP Family Medicine; Visit Provider Internal Medicine
PROC: 0DJ08ZZ Inspection of Upper Intestinal Tract, Via Natural or Artificial Opening Endoscopic (ICD-10-PCS; CPT 43235; principal; 2020-04-15 09:55)
DX: D50.0 Iron deficiency anemia secondary to blood loss (chronic) (principal); K92.1 Melena; E87.6 Hypokalemia; Z23 Encounter for immunization; I10 Essential (primary) hypertension; E78.2 Mixed hyperlipidemia; M19.90 Unspecified osteoarthritis, unspecified site; E11.42 Type 2 diabetes mellitus with diabetic polyneuropathy; K21.9 Gastro-esophageal reflux disease without esophagitis; E55.9 Vitamin D deficiency, unspecified; K59.00 Constipation, unspecified; R01.1 Cardiac murmur, unspecified; Z91.19 Patient's noncompliance with other medical treatment and regimen; Z87.891 Personal history of nicotine dependence
CPT/HCPCS: 36415; 71045; 80048; 82274; 82962; 83735; 84100; 84484; 85018; 85025; 85379; 85610; 85730; 86644; 86850; 86900; 86901; 86920; 86922; 93005; 94760; 99251; 99283; 99285; J7030; J7040; J7120; P9016; 90686; A4216; G0463; J2405; J3490

== ENCOUNTER → 2020-04-26 12:31 | Outpatient (CLI) | payer OTHER, SELFPAY ==
[2020-04-21 13:57] VITALS: BMI 24.6
[2020-04-26 15:04] LABS: Hematocrit 36.7 % (37-47); Hemoglobin 11.4 g/dL (12.0-15.0); Mean Corp Hgb Conc 31.1 g/dL (32-36); Mean Corpuscular Hgb 24.9 pg (27.0-32.0); Mean Corpuscular Volume 80.1 fL (81-99); Mean Platelet Vol. 10.8 fl (6.2-12.0); Platelet Count 260 K/mm3 (150-450); RBC Distribution Width CV 13.4 % (11.6-14.6); RBC Distribution Width SD 38.8 fl (35.1-43.9); Red Blood Count 4.58 M/mm3 (4.2-5.4)
[2020-04-26 15:18] LABS: Anion Gap 4 (5-15); BUN 17 mg/dL (7-18); BUN/Creat Ratio 18.9 RATIO (10-20); Calcium,Total 9.6 mg/dL (8.5-10.1); Chloride 99 mmol/L (98-107); EST Glomerular Filtration Rate 68 mL/min (>60); Est Glom Filt Rate - Afr Amer 82 mL/min (>60); Glucose 392 mg/dL (74-106); Sodium Level 134 mmol/L (136-145)
== END ==
PROVIDERS: PCP Family Medicine; Referring Provider Family Medicine; Visit Provider Family Medicine
DX: D64.9 Anemia, unspecified (principal); R79.89 Other specified abnormal findings of blood chemistry
CPT/HCPCS: 36415; 80048; 85027

== ENCOUNTER 2020-05-03 10:08 | Day surgery (SDC) | payer OTHER, SELFPAY ==
[2020-04-21 13:57] VITALS: BMI 24.6
[2020-05-03 10:25] VITALS: BP 150/70; PULSE 87; RESP 16; TEMP 36.4; O2SAT 100; BMI 24.3
[2020-05-03] MEDS: Lactated Ringers 1,000 ML 100 ML IV (10:45)
[2020-05-03 10:51] LABS: Bedside Glucose 196 mg/dL (70-110)
--- NOTE | 2020-05-03 11:27 | OP.COLON_ITS ---
Patient Name: Lakisha Echols Procedure Date: 05/03/2020 10:22 AM Date of : 1960 Age: 60 Procedure: Colonoscopy Indications: Iron deficiency anemia Providers: Jaxson Huff MD Referring MD: Javier Levy Medicines: Monitored Anesthesia Care Patient Profile: This is a 60 year old female. Refer to note in patient chart for documentation of history and physical. Last Colonoscopy: date unknown. Unable to locate last colonoscopy report. Complications: No immediate complications. Procedure: Pre-Anesthesia Assessment: - Prior to the procedure, a History and Physical was performed, and patient medications and allergies were reviewed. The patient's tolerance of previous anesthesia was also reviewed. The risks and benefits of the procedure and the sedation options and risks were discussed with the patient. All questions were answered, and informed consent was obtained. Prior Anticoagulants: The patient has taken no previous anticoagulant or antiplatelet agents. After reviewing the risks and benefits, the patient was deemed in satisfactory condition to undergo the procedure. After I obtained informed consent, the scope was passed under direct vision. Throughout the procedure, the patient's blood pressure, pulse, and oxygen saturations were monitored continuously. The colonoscope was introduced through the anus and advanced to the cecum, identified by appendiceal orifice and ileocecal valve. The colonoscopy was performed without difficulty. The patient tolerated the procedure well. The quality of the bowel preparation was good. Scope In: 11:07:56 AM Scope Withdrawal Time 0 hours 6 minutes 50 seconds Scope Out: 11:23:21 AM Total Procedure Duration Time 0 hours 15 minutes 25 seconds Findings: The entire examined colon appeared normal on direct and retroflexion views. Impression: - The entire examined colon is normal on direct and retroflexion views. - No specimens collected. Recommendation: - Discharge patient to home. - Resume previous diet. - Continue present medications. - Repeat colonoscopy in 10 years for screening purposes. Procedure Code(s): --- Professional --- 13261, Colonoscopy, flexible; diagnostic, including collection of specimen(s) by brushing or washing, when performed (separate procedure) Diagnosis Code(s): --- Professional --- D50.9, Iron deficiency anemia, unspecified CPT copyright 2017 [employer]. All rights reserved. The codes documented in this report are preliminary and upon physician coder review may be revised to meet current compliance requirements. Jaxson Huff MD 05/03/2020 11:27:08 AM This report has been signed electronically. Number of Addenda: 0 Note Initiated On: 05/03/2020 10:22 AM
--- NOTE | 2020-05-03 11:27 | OP.CCLET_ITS ---
05/03/2020 Javier Levy [address] [place] [address] Re : Colonoscopy procedure for Lakisha Echols Dear Dr. Levy This procedure was performed on Sunday, May 03, 2020. My impressions and recommendations are as follows: Impressions : - The entire examined colon is normal on direct and retroflexion views. - No specimens collected. Recommendations : - Discharge patient to home. - Resume previous diet. - Continue present medications. - Repeat colonoscopy in 10 years for screening purposes. My findings are described in the full procedure note, which is enclosed. If I can be of further assistance, please feel free to contact me at Doctor phone number(s): , Work: . Sincerely, Jaxson Huff MD 05/03/2020 11:27:08 AM This report has been signed electronically.
[2020-05-03 11:30] VITALS: BP 150/70; BP 90/50; PULSE 70; RESP 18; TEMP 36.1; O2SAT 99
[2020-05-03 11:35] VITALS: BP 115/66; BP 150/70; PULSE 73; RESP 16; O2SAT 100
[2020-05-03 11:40] VITALS: BP 129/67; BP 150/70; PULSE 71; RESP 18; O2SAT 99
[2020-05-03 11:45] VITALS: BP 122/66; BP 150/70; PULSE 75; RESP 18; TEMP 36.6; O2SAT 100
[2020-05-03 12:00] VITALS: BP 150/70
--- NOTE | 2020-05-13 05:47 | HP_ITS ---
Intake Vital Signs 04/21/20 Height 5 ft 3 in 04/21/20 Weight: 139 lb 04/21/20 BMI 24.6 04/21/20 BP 116/79 04/21/20 Blood Pressure Location Rt brachial 04/21/20 Position Sitting 04/21/20 Respiration 16 04/21/20 Pulse 90 04/21/20 Pulse Source Monitor 04/21/20 Temp 97.6 F L 04/21/20 Temp Source Temporal 04/21/20 Pulse Oximetry (%) 98 04/21/20 Oxygen Delivery Method room air Intake Visit Reasons: CSCOPE Chief Complaint: cscope Travelift Operator Required: No Is patient in pain?: No Allergies cyclobenzaprine [From Flexeril] Adverse Reaction (Verified 04/21/20 13:59) PT UNSURE OF REACTION Medications metoprolol succinate 50 mg tablet,extended release 24 hr 50 mg PO DAILY 30 Days #30 tab 07/12/18 [History Confirmed 04/21/20] omega-3 acid ethyl esters 1 gram capsule 2 cap PO DAILY cap 05/08/19 [History Confirmed 04/21/20] omeprazole 40 mg capsule,delayed release 40 mg PO DAILY 05/08/19 [History Confirmed 04/21/20] Cholecalciferol (Vitamin D3) [Vitamin D3] 2,000 unit PO DAILY 02/06/20 [History Confirmed 04/21/20] Rosuvastatin Calcium [Crestor] 20 mg PO DAILY 02/06/20 [History Confirmed 04/21/20] Insulin Glargine,Hum.rec.anlog [Lantus] 40 unit SQ QHS 04/14/20 [History Confirmed 04/21/20] Insulin NPH Human Isophane [Humulin N] See Protocol SQ BID 04/14/20 [History Confirmed 04/21/20] Metformin HCl [Glucophage Xr] 500 mg PO DAILY 04/14/20 [History Confirmed 04/21/20] lisinopril 20 mg-hydrochlorothiazide 25 mg tablet 1 tab PO DAILY 04/21/20 [History Confirmed 04/21/20] [facility] Medical History (Updated 04/21/20 @ 13:53 by Ciara Guy) Hypertension (Chronic) Diabetes (Acute) Liver disease (Acute) Hyperlipidemia (Acute) Vitamin D deficiency (Acute) H/O transfusion of whole blood (Acute) Neuropathy (Acute) Skin cancer (Acute) Diabetes mellitus (Chronic) Polyneuropathy due to type 2 diabetes mellitus (Chronic) Benign essential hypertension (Chronic) Mixed hyperlipidemia (Chronic) Noncompliance with diabetes treatment (Chronic) Acute anemia (Acute) GIB (gastrointestinal bleeding) (Acute) Osteoarthritis (arthritis due to wear and tear of joints) (Chronic) Hypokalemia (Acute) Surgical History (Updated 04/21/20 @ 14:05 by Ciara Guy) Hx of rectal sphincterotomy (Acute) Hx of colonoscopy (Acute) H/O: (Acute) Status post surgical removal of malignant neoplasm of skin (Acute) Family History Father Arthritis Diabetes Myocardial infarction, Onset Age: 63 Heart disease Hypertension Sister Arthritis Diabetes Brother Diabetes Mental disorder Mother Hypertension Migraines Cerebral hemorrhage Social History (Updated 04/21/20 @ 14:[address] Jaxson Huff MD) Smoking Status: Former smoker second hand exposure: No alcohol intake: never substance use type: does not use caffeine: Yes what type of physical activity do you participate in: none frequency: does not exercise HPI HPI HPI: REJI OLIVA, is a 60 F who presents to the office today for HPI HPI Surgical H&P: Yes HPI: REJI OLIVA, is a 60 F who presents to the office today for anemia. The patient was recently hospitalized with severe anemia. She received transfusions and is feeling much better. She received an EGD in the hospital which was normal. She reports she is still having black stools but they are less black than they were before. No red blood or gross blood in her stool. No abdominal pain. Her last colonoscopy was 4 years ago. ROS General General: Yes fatigue; no weight change, appetite, colon cancer, breast cancer or weakness HEENT HEENT: No difficulty swallowing, eye injury, eye surgery, swollen glands or hoarseness Endo Endocrine: Yes diabetes mellitus; no thyroid disease, thyroid cancer, Hair loss, heat intolerance or cold intolerance Skin Skin: No rash or changing moles Musc Musculoskeletal: Yes back problems and arthritis; no rheumatoid arthritis, gout or joint pain Cardio Cardiovascular: Yes murmur and high blood pressure; no pacemaker, heart disease, atrial fibrillation, heart attack, heart stent, palpitations, shortness of breat with exertion or chest pain Psych Psychiatric: No depression, anxiety or hearing voices Resp Respiratory: No shortness of breath, No sleep apnea, No cough, No COPD, No asthma, No emphysema, No wheezing Gastro Gastrointestinal: No abdominal pain, No nausea or vomiting, No diarrhea, Yes constipation, Yes blood in stool, Yes acid reflux, No hemorrhoids, No ulcers, No gallbladder problem, Yes black,tarry stools [place] Hematologic: No blood thinners, No blood disorders, No bleeding, Yes anemia, No blood clots Neuro Neurologic: No system reviewed and no additional complaints, except as docu, No as per HPI, No abnormal walking, No abnormal hearing, No abnormal movements, No abnormal speech, No behavioral changes, No burning sensations, No confusion, No seizure-like activity, No unsteadiness, No dizziness, No localized weakness, No frequent falls, No headache(s), No lack of coordination, No loss of vision, No memory loss, No numbness, No other visual disturbances, No radiating pain, No restless legs, No sensory deficit, No fainting, No tingling, No tremor(s), No weakness, No other Exam Const General: cooperative Orientation: alert, oriented x3 Resp Effort & Inspection: normal respiratory effort Auscultation: clear to auscultation bilaterally Cardio Rate: regular rate Rhythm: regular rhythm Heart Sounds: murmur GI Inspection: non-distended Palpation: soft, nontender Assessment & Plan Problems 1. Acute anemia D64.9 Plan The patient had anemia in the hospital and reports she is feeling better after transfusions. EGD was normal. Plan for colonoscopy. If colonoscopy is normal I would recommend referral for capsule endoscopy. I explained endoscopy in detail to the patient. I explained the risks including but not limited to stroke or heart attack with anesthesia, perforation of the GI tract, bleeding, infection. I explained that any of these could necessitate further emergency surgery. The patient understands and all questions were answered sufficiently. The patient wishes to proceed with procedure. We discussed the current risks associated with COVID-19. While it is understood that there is a community spread of COVID-19, the risk of joan COVID-19 while at [facility] ([facility]) is very low; however, the risk cannot be completely mitigated because of the community spread of the disease. We discussed in detail the risk of exposure to and/or potential harm posed by the COVID-19 virus with having a surgery/procedure at this time versus the risk of delaying the surgery/procedure. It is not possible to know either the risk of delaying the surgery or procedure or chance of getting an infection with perfect accuracy, but a joint decision was made to proceed at this time with the scheduled surgery/procedure as indicated on the consent form. Patient was notified that we will need to comply with any screening or testing [facility] wishes to perform or that surgery may be delayed for any positive results. Jaxson Huff MD Pager: [facility] [address] [place] [address], [address] [place] [address] Office: Orders Orders: Colonoscopy Today D64.9 Coding Level of Care Code Off vis,est,level 3 Diagnoses Acute anemia D64.9 I have re-examined the patient. There are no clinical changes since date of exam.
== END 2020-05-03 12:14 | disposition home or self-care (01) ==
LOC: EN 10:08 → AC 10:09
PROVIDERS: PCP Family Medicine; Referring Provider Family Medicine; Visit Provider Surgery
PROC: 0DJD8ZZ Inspection of Lower Intestinal Tract, Via Natural or Artificial Opening Endoscopic (ICD-10-PCS; CPT 45378; principal; 2020-05-03 10:55)
DX: D50.9 Iron deficiency anemia, unspecified (principal); Z20.828 Contact with and (suspected) exposure to other viral communicable diseases; M19.90 Unspecified osteoarthritis, unspecified site; E78.2 Mixed hyperlipidemia; E11.42 Type 2 diabetes mellitus with diabetic polyneuropathy; E78.5 Hyperlipidemia, unspecified; I10 Essential (primary) hypertension; Z79.899 Other long term (current) drug therapy; Z79.4 Long term (current) use of insulin; Z87.891 Personal history of nicotine dependence
CPT/HCPCS: 45378; 82962; 87635; C9803; J7120; U0003

== ENCOUNTER → 2021-01-26 12:38 | Outpatient (CLI) | payer OTHER, SELFPAY ==
[2021-01-26 15:20] LABS: Erythrocyte Sedimentation Rate 10 mm/hr (0-30)
[2021-01-26 15:23] LABS: Absolute Neutrophil Count 5.2 X10^3/uL (2.0-7.7); Basophil# 0.03 X10^3/uL; Basophil% 0.3 % (0-1); Eosinophil# 0.16 X10^3/uL; Eosinophils% 1.5 % (0-5); Hematocrit 41.1 % (37-47); Hemoglobin 13.8 g/dL (12.0-15.0); Lymphocyte % 43.9 % (19-41); Mean Corp Hgb Conc 33.6 g/dL (32-36); Mean Corpuscular Hgb 25.8 pg (27.0-32.0); Mean Corpuscular Volume 76.8 fL (81-99); Mean Platelet Vol. 10.7 fl (6.2-12.0); Monocyte# 0.52 X10^3/uL; NRBC Flagged by Analyzer 0 % (0-5); Neutrophil # 5.15 X10^3/uL (2.7-7.7); Platelet Count 300 K/mm3 (150-450); RBC Distribution Width CV 13.8 % (11.6-14.6); RBC Distribution Width SD 37.8 fl (35.1-43.9); Red Blood Count 5.35 M/mm3 (4.2-5.4); White Blood Count 10.5 K/mm3 (4.4-11.0)
[2021-01-26 15:35] LABS: Hemoglobin A1c 10.5 % (3.8-5.6)
[2021-01-26 15:49] LABS: ALB/GLOB Ratio 0.8 RATIO (0.9-2.4); AST(SGOT) 24 U/L (15-37); Alanine Aminotransfer ALT/SGPT 31 U/L (13-56); Albumin, Serum 3.7 g/dL (3.2-5.0); Alkaline Phosphatase 113 U/L (45-117); Anion Gap 10 (5-15); BUN 29 mg/dL (7-18); CRP 7.42 mg/L (0.0-3.0); Calcium,Total 9.5 mg/dL (8.5-10.1); Chloride 93 mmol/L (98-107); Creatinine, Serum 1.32 mg/dL (0.55-1.02); EST Glomerular Filtration Rate 43 mL/min (>60); Est Glom Filt Rate - Afr Amer 52 mL/min (>60); Globulin 4.6 g/dL (2.2-4.2); Glucose 203 mg/dL (74-106); Lipase 130 U/L (73-393); Potassium 3.7 mmol/L (3.5-5.1); Protein, Total 8.3 g/dL (6.4-8.2); Sodium Level 127 mmol/L (136-145); Thyroid Stim Hormone (TSH) 1.81 uIU/mL (0.358-3.74)
== END ==
LOC: LAB 12:41 → MTLAB 12:48
PROVIDERS: PCP Family Medicine; Referring Provider Family Medicine; Visit Provider Family Medicine
DX: E11.65 Type 2 diabetes mellitus with hyperglycemia (principal); K57.32 Diverticulitis of large intestine without perforation or abscess without bleeding; R19.7 Diarrhea, unspecified
CPT/HCPCS: 36415; 80053; 83036; 83690; 84443; 85025; 85652; 86140

== ENCOUNTER → 2021-01-27 15:40 | Outpatient (CLI) | payer OTHER, SELFPAY | PROVIDERS: PCP Family Medicine; Referring Provider Family Medicine; Visit Provider Family Medicine | DX: R19.7 Diarrhea, unspecified (principal) | CPT/HCPCS: 87506 ==

== ENCOUNTER → 2021-03-16 15:35 | Outpatient (CLI) | payer OTHER, SELFPAY ==
[2021-03-16 18:44] LABS: Anion Gap 6 (5-15); BUN 24 mg/dL (7-18); BUN/Creat Ratio 16.9 RATIO (10-20); Calcium,Total 9.8 mg/dL (8.5-10.1); Chloride 103 mmol/L (98-107); Creatinine, Serum 1.42 mg/dL (0.55-1.02); EST Glomerular Filtration Rate 40 mL/min (>60); Est Glom Filt Rate - Afr Amer 48 mL/min (>60); Glucose 204 mg/dL (74-106); Potassium 3.8 mmol/L (3.5-5.1); Sodium Level 137 mmol/L (136-145)
== END ==
PROVIDERS: PCP Family Medicine; Referring Provider Family Medicine; Visit Provider Family Medicine
DX: E11.8 Type 2 diabetes mellitus with unspecified complications (principal)
CPT/HCPCS: 36415; 80048

== ENCOUNTER → 2021-06-15 16:18 | Outpatient (CLI) | payer OTHER, SELFPAY ==
[2021-06-15 17:47] LABS: Anion Gap 7 (5-15); BUN 27 mg/dL (7-18); BUN/Creat Ratio 22.1 RATIO (10-20); Calcium,Total 8.9 mg/dL (8.5-10.1); Chloride 103 mmol/L (98-107); Creatinine, Serum 1.22 mg/dL (0.55-1.02); EST Glomerular Filtration Rate 47 mL/min (>60); Est Glom Filt Rate - Afr Amer 57 mL/min (>60); Glucose 198 mg/dL (74-106); Potassium 3.4 mmol/L (3.5-5.1); Sodium Level 138 mmol/L (136-145)
== END ==
PROVIDERS: PCP Family Medicine; Referring Provider Family Medicine; Visit Provider Family Medicine
DX: I10 Essential (primary) hypertension (principal)
CPT/HCPCS: 36415; 80048

== ENCOUNTER → 2021-10-26 | Outpatient (CLI) | payer OTHER, BC, SELFPAY ==
--- NOTE | 2021-10-26 09:45 | CT_ITS ---
STUDY: CT ABDOMEN AND PELVIS WITHOUT CONTRAST REASON FOR EXAM: Female, 61 years old. R/O KIDNEY STONE. Left-sided flank pain. RADIATION DOSAGE (If Supplied By Facility): CTDIvol = ( 8.24 ) mGy, DLP = ( 393.02 ) mGycm TECHNIQUE: Transaxial images were obtained from the dome of the diaphragm to the symphysis pubis without oral contrast, and without intravenous contrast. Sagittal and coronal images were reconstructed. Individualized dose optimization techniques were used for this CT. COMPARISON: Comparison is made with prior study dated 03/01/2020 and 02/06/2020. FINDINGS: The visualized lung bases are unremarkable. Coronary artery calcification. Normal liver. Normal gallbladder and extrahepatic biliary system. Normal spleen. Normal pancreas. Normal bilateral adrenal glands. There is a 5.2 mm calcification along the posterior medial cortex of the upper pole of the right kidney. Stable 1.6 cm cyst in the upper pole of the left kidney. Mild degree of left hydronephrosis. No obstructive uropathy is seen. Normal visualized stomach. Normal small intestine. Normal colon. The appendix is visualized and appears normal. There is scattered atherosclerotic calcification of the abdominal aorta, without a demonstrated aneurysm. Normal inferior vena cava. There is borderline retroperitoneal lymphadenopathy with enlarged nodes no greater than 10mm in the short axis diameter. There is diffuse thickening of the urinary bladder wall more prominent posteriorly. Small bilateral inguinal hernias containing fat. The patient is status post nailing of the proximal left femur. 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 CT/Abdomen/Pelvis without Cont IMPRESSION: Diffuse bladder wall thickening more prominently seen along the posterior aspect. Stable left renal cyst. No obstructive uropathy is seen at this time. Electronically Signed: Ken Quiroz MD at 10:39 EDT ,
[2021-10-26 11:19] LABS: Absolute Lymphocyte Count 1.59 X10^3/uL (0.83-4.51); Absolute Neutrophil Count 11.7 X10^3/uL (2.0-7.7); Basophil# 0.03 X10^3/uL; Basophil% 0.2 % (0-1); Eosinophil# 0.02 X10^3/uL; Eosinophils% 0.1 % (0-5); Hematocrit 39.9 % (37-47); Hemoglobin 13.3 g/dL (12.0-15.0); Lymphocyte # 1.59 X10^3/ul (0.83-4.51); Lymphocyte % 11.5 % (19-41); Mean Corp Hgb Conc 33.3 g/dL (32-36); Mean Corpuscular Hgb 26.7 pg (27.0-32.0); Mean Corpuscular Volume 80.1 fL (81-99); Mean Platelet Vol. 10.3 fl (6.2-12.0); Monocyte# 0.36 X10^3/uL; Monocyte% 2.6 % (0-10); NRBC Flagged by Analyzer 0 % (0-5); Neutrophil # 11.73 X10^3/uL (2.7-7.7); Neutrophil % 85.1 % (47-70); Platelet Count 241 K/mm3 (150-450); RBC Distribution Width CV 12.8 % (11.6-14.6); RBC Distribution Width SD 36.2 fl (35.1-43.9); Red Blood Count 4.98 M/mm3 (4.2-5.4); White Blood Count 13.8 K/mm3 (4.4-11.0)
[2021-10-26 11:36] LABS: ALB/GLOB Ratio 0.9 RATIO (0.9-2.4); AST(SGOT) 16 U/L (15-37); Alanine Aminotransfer ALT/SGPT 19 U/L (13-56); Albumin, Serum 3.8 g/dL (3.2-5.0); Alkaline Phosphatase 113 U/L (45-117); Anion Gap 6 (5-15); BUN 23 mg/dL (7-18); Calcium,Total 9.3 mg/dL (8.5-10.1); Chloride 100 mmol/L (98-107); Creatinine, Serum 1.21 mg/dL (0.55-1.02); EST Glomerular Filtration Rate 48 mL/min (>60); Est Glom Filt Rate - Afr Amer 58 mL/min (>60); Globulin 4.4 g/dL (2.2-4.2); Glucose 265 mg/dL (74-106); Potassium 3.6 mmol/L (3.5-5.1); Protein, Total 8.2 g/dL (6.4-8.2); Sodium Level 134 mmol/L (136-145)
== END | disposition home or self-care (01) ==
PROVIDERS: PCP Family Medicine; Referring Provider Family Medicine; Visit Provider Family Medicine
DX: R10.9 Unspecified abdominal pain (principal); R31.9 Hematuria, unspecified
CPT/HCPCS: 36415; 74176; 80053; 85025

== ENCOUNTER → 2021-10-26 | Outpatient (CLI) | payer OTHER, BC, SELFPAY ==
[2021-10-26 10:04] LABS: Mucous, Urine 0 SEEN /hpf (<or=2+)
[2021-10-26 10:31] LABS: Color, Urine Yellow (Yellow); Glucose, Dipstick 100 mg/dl (Normal); Ketone-Dipstick 5 mg/dl (Negative); Leukocyte Esterase-Dipstick 500 /ul (Negative); Nitrite-Dipstick Negative (Negative); Occult Blood-Urine 250 /ul (Negative); Protein-Dipstick 500 mg/dl (Negative); Urine Bilirubin Dipstick Negative (Negative); Urine Clarity Cloudy (Clear); Urine Urobilinogen Normal (Normal)
[2021-10-26 10:43] LABS: Bacteria 1+ /hpf (None Seen); Red Blood Cells-Urine 25-50 SEEN /hpf (0-5); Squamous Epithelial Cells - UA 0-5 SEEN /hpf (5-10); White Blood Cells 25-50 SEEN /hpf (0-5)
== END | disposition home or self-care (01) ==
LOC: LABSPEC 09:57
PROVIDERS: PCP Family Medicine; Referring Provider Family Medicine; Visit Provider Family Medicine
DX: M54.9 Dorsalgia, unspecified (principal)
CPT/HCPCS: 81001; 87086; 87088

== ENCOUNTER → 2022-02-07 | Outpatient (CLI) | payer BC, OTHER, SELFPAY | END | disposition home or self-care (01) | PROVIDERS: PCP Family Medicine; Referring Provider Family Medicine; Visit Provider Family Medicine | DX: N39.0 Urinary tract infection, site not specified (principal) | CPT/HCPCS: 87086; 87088 ==

== ENCOUNTER → 2022-08-09 | Outpatient (CLI) | payer BC, OTHER, SELFPAY ==
[2022-08-09 12:57] LABS: Vitamin D,25 Hydroxy 45.7 ng/mL
[2022-08-09 13:06] LABS: ALB/GLOB Ratio 0.9 RATIO (0.9-2.4); AST(SGOT) 20 U/L (15-37); Alanine Aminotransfer ALT/SGPT 19 U/L (13-56); Albumin, Serum 3.8 g/dL (3.2-5.0); Alkaline Phosphatase 103 U/L (45-117); Anion Gap 9 (5-15); BUN 23 mg/dL (7-18); BUN/Creat Ratio 20.7 RATIO (10-20); Calcium,Total 9.6 mg/dL (8.5-10.1); Chloride 103 mmol/L (98-107); Creatinine, Serum 1.11 mg/dL (0.55-1.02); EST Glomerular Filtration Rate 53 mL/min (>60); Est Glom Filt Rate - Afr Amer 64 mL/min (>60); Globulin 4.1 g/dL (2.2-4.2); Glucose 145 mg/dL (74-106); Potassium 4.1 mmol/L (3.5-5.1); Protein, Total 7.9 g/dL (6.4-8.2); Sodium Level 140 mmol/L (136-145); T4 Free Direct 1.01 ng/dL (0.76-1.46); Thyroid Stim Hormone (TSH) 1.05 uIU/mL (0.358-3.74)
== END | disposition home or self-care (01) ==
LOC: MFPLAB 09:56
PROVIDERS: PCP Family Medicine; Referring Provider Family Medicine; Visit Provider Family Medicine
DX: E55.9 Vitamin D deficiency, unspecified (principal); E03.9 Hypothyroidism, unspecified
CPT/HCPCS: 36415; 80053; 82306; 84439; 84443

== ENCOUNTER → 2022-09-20 | Outpatient (CLI) | payer BC, OTHER, SELFPAY | END | disposition home or self-care (01) | LOC: MFPLAB 11:12 | PROVIDERS: PCP Family Medicine; Referring Provider Family Medicine; Visit Provider Family Medicine | DX: N39.0 Urinary tract infection, site not specified (principal) | CPT/HCPCS: 87077; 87086; 87088; 87186 ==

== ENCOUNTER → 2022-11-02 | Outpatient (CLI) | payer BC, OTHER, SELFPAY ==
[2022-11-02 17:42] LABS: Bacteria 0 SEEN /hpf (None Seen); Mucous, Urine 0 SEEN /hpf (<or=2+)
[2022-11-02 18:08] LABS: Color, Urine Yellow (Yellow); Glucose, Dipstick Normal (Normal); Ketone-Dipstick Negative (Negative); Leukocyte Esterase-Dipstick 500 /ul (Negative); Nitrite-Dipstick Positive (Negative); Occult Blood-Urine 250 /ul (Negative); Protein-Dipstick 500 mg/dl (Negative); Specific Gravity, Urine 1.015 (1.002-1.030); Urine Bilirubin Dipstick Negative (Negative); Urine Clarity Cloudy (Clear); Urine Urobilinogen Normal (Normal)
[2022-11-02 18:24] LABS: Red Blood Cells-Urine 50-100 SEEN /hpf (0-5); White Blood Cells >100 SEEN /hpf (0-5)
[2022-11-02 18:25] LABS: Squamous Epithelial Cells - UA 0-5 SEEN /hpf (5-10)
== END | disposition home or self-care (01) ==
PROVIDERS: PCP Family Medicine; Visit Provider Family Medicine
DX: Z87.440 Personal history of urinary (tract) infections (principal)
CPT/HCPCS: 81001; 87086; 87088

== ENCOUNTER → 2022-11-08 | Outpatient (CLI) | payer BC, OTHER, SELFPAY ==
[2022-11-08 10:39] LABS: Hemoglobin A1c 6.7 % (3.8-5.6)
[2022-11-08 10:40] LABS: Anion Gap 5 (5-15); BUN 24 mg/dL (7-18); BUN/Creat Ratio 25.6 RATIO (10-20); Chloride 107 mmol/L (98-107); Cholesterol 124 mg/dL (200); Creatinine, Serum 0.94 mg/dL (0.55-1.02); EST Glomerular Filtration Rate 64 mL/min (>60); Est Glom Filt Rate - Afr Amer 77 mL/min (>60); Glucose 123 mg/dL (74-106); High Density Lipoprotein 35 mg/dL; Sodium Level 140 mmol/L (136-145); Triglycerides 221 mg/dL; Very Low Density Lipoprotein 44 mg/dL (5-40)
== END | disposition home or self-care (01) ==
LOC: MFPLAB 08:41
PROVIDERS: PCP Family Medicine; Visit Provider Family Medicine
DX: E78.5 Hyperlipidemia, unspecified (principal); E11.65 Type 2 diabetes mellitus with hyperglycemia
CPT/HCPCS: 36415; 80048; 80061; 83036

== ENCOUNTER → 2022-12-11 | Outpatient (CLI) | payer BC, SELFPAY ==
[2022-12-11 13:36] LABS: Color, Urine Yellow (Yellow); Glucose, Dipstick Normal (Normal); Ketone-Dipstick Negative (Negative); Leukocyte Esterase-Dipstick 500 /ul (Negative); Nitrite-Dipstick Negative (Negative); Occult Blood-Urine 50 /ul (Negative); Protein-Dipstick 100 mg/dl (Negative); Specific Gravity, Urine 1.015 (1.002-1.030); Urine Bilirubin Dipstick Negative (Negative); Urine Clarity Cloudy (Clear); Urine Urobilinogen Normal (Normal)
[2022-12-11 13:42] LABS: Bacteria 1+ /hpf (None Seen); Mucous, Urine 1+ /hpf (<or=2+); Red Blood Cells-Urine 0-5 SEEN /hpf (0-5); Squamous Epithelial Cells - UA 0-5 SEEN /hpf (5-10); White Blood Cells 50-100 SEEN /hpf (0-5)
== END | disposition home or self-care (01) ==
PROVIDERS: PCP Family Medicine; Referring Provider Obstetrics & Gynecology; Visit Provider Obstetrics & Gynecology
DX: N39.0 Urinary tract infection, site not specified (principal)
CPT/HCPCS: 81001; 87086; 87088

== ENCOUNTER → 2023-08-23 | Outpatient (CLI) | payer MEDICARE, BC, SELFPAY ==
--- OUTSIDE RECORDS SUMMARY | 2023-08-23 07:38 | XMS RPT_ITS | CCD ---
Author Name Unknown Address [address] [place] [address] Organization [facility] Care Team Providers Care Electric Serviceman Name Role Phone HEYDISALBADORALKA Unavailable Unavailable MUNJAPARA, VALJI Unavailable Unavailable MUNJAPARA, VALJI Unavailable Unavailable MUNJAPARA, VALJI Unavailable Unavailable Melanie Leyv MD Primary Care Provider Melanie Levy MD Primary Care Provider Melanie Levy MD Primary Care Provider BEVERLEY CORTÉS Referring Unavailable BEVERLEY CORTÉS Attending Unavailable MELANIE LEVY Primary Care UnavailSTEPHANIE Mosqueda Referring Unavailable MELANIE LEVY Primary Care UnavailDENICE Keith Referring Unavailable MELANIE LEVY Primary Care UnavailMELANIE Monson Primary Care Unavailsean e Allergies Allergy Classification Reported Allergen(s) Allergy Type Date of Onset Reaction(s) Facility (17 sources) cyclobenzaprine; Translations: [CYCLOBENZAPRINE ] Drug Allergy 09-20-2021 Other: See Comments [facility] Medications Current Medications Medication Drug Class(es) Dates Sig (Normalized) Sig (Original) fluconazole 200 mg oral tablet (4 sources) Azole Antifungal Start: 09-25-2021 End: 10-09-2021 take 1 tablet by mouth once daily fluconazole (DIFLUCAN) 200 mg tablet Indications: Fungus present in urine Take 1 tablet by mouth once daily for 14 days. 14 tablet 0 09/25/2021 10/09/2021 Active Completed/Discontinued Medications Medication Drug Class(es) Dates Sig (Normalized) Sig (Original) aspirin 325 mg oral tablet (15 sources) Platelet Aggregation Inhibitor, Nonsteroidal Anti-inflammatory Drug take 1 tablet by mouth once daily aspirin 325 mg tablet Take 325 mg by mouth once daily. 0 Active Problems Active Problems Problem Classification Problem Date Documented Date Episodic/Chronic Cancer of other female genital organs (20 sources) Vulval intraepithelial neoplasia grade 3; Translations: [Carcinoma in situ of vulva] Onset: 01-16-2016 01-16-2016 Chronic Diabetes mellitus with complications (4 sources) Diabetic - poor control; Translations: [Type 2 diabetes mellitus with hyperglycemia] Onset: 06-27-2021 Chronic Diabetes mellitus without complication (15 sources) Diabetes mellitus; Translations: [Type 2 diabetes mellitus without complications] Onset: 01-03-2016 06-26-2021 Chronic Esophageal disorders (16 sources) Gastroesophageal reflux disease; Translations: [Gastro-esophageal reflux disease without esophagitis] Onset: 01-03-2016 01-03-2016 Chronic Essential hypertension (16 sources) Hypertensive disorder; Translations: [Essential (primary) hypertension] Onset: 01-03-2016 01-03-2016 Chronic Heart valve disorders (1 source) Cardiac murmur, unspecified; Translations: [Heart murmur] Onset: 03-25-2023 Episodic Mycoses (1 source) Mycosis; Translations: [Unspecified mycosis] Episodic Other diseases of bladder and urethra (2 sources) Hypertrophy of bladder; Translations: [Other specified disorders of bladder] Chronic Other diseases of bladder and urethra (1 source) Other specified disorders of bladder; Translations: [Bladder wall thickening] Onset: 04-18-2022 Chronic Other liver diseases (14 sources) Non-alcoholic fatty liver; Translations: [Fatty (change of) liver, not elsewhere classified] Onset: 01-03-2016 01-03-2016 Chronic Other liver diseases (1 source) Fatty (change of) liver, not elsewhere classified; Translations: [Other chronic nonalcoholic liver disease] Onset: 01-03-2016 01-03-2016 Chronic Prolapse of female genital organs (20 sources) Third degree uterine prolapse; Translations: [Complete uterovaginal prolapse] Onset: 11-15-2015 Chronic Rehabilitation care; fitting of prostheses; and adjustment of devices (1 source) Patient encounter status; Translations: [Encounter for fitting and adjustment of other specified devices] Chronic Screening and history of mental health and substance abuse codes (16 sources) H/O: anxiety state; Translations: [Personal history of other mental and behavioral disorders] Onset: 01-04-2016 01-04-2016 Episodic Past or Other Problems Problem Classification Problem Date Documented Da te Episodic/Chronic Genitourinary symptoms and ill-defined conditions (11 sources) Beltran hematuria; Translations: [Gross hematuria] Onset: 04-18-2022 Episodic Other aftercare (1 source) halfway (current) use of insulin; Translations: [Type 2 diabetes mellitus with other specified complication, with long-term current use of insulin (HCC)] Onset: 06-27-2021 Episodic Urinary tract infections (13 sources) Urinary tract infectious disease; Translations: [Urinary tract infection, site not specified] Onset: 10-12-2021 Episodic Results Test Name Value Interpretation Reference Range Facil ity Vital Signs Date Time Vital Sign Value Performing Clinician Jose clement 05-28-2022 18:32-0500 Body temperature 98.1 [degF] Kimmy Caal APRN.[facility] Work Phone: [facility] 05-28-2022 18:32-0500 Body weight 72.94 kg Kimmy Caal APRN.[facility] Work Phone: [facility] 05-28-2022 18:32-0500 Diastolic blood pressure 88 mm[Hg] Kimmy Cobb-Bassem HOPPERN.[employer]ONATOR [employer] Work Phone: [facility] 05-28-2022 18:32-0500 Heart rate 80 /min Kimmy Caal APRN.[employer] Work Phone: [facility] 05-28-2022 18:32-0500 Respiratory rate 20 /min Kimmy Caal APRN.[employer] Work Phone: [facility] 05-28-2022 18:32-0500 SaO2% (BldA) [Mass fraction] 94 % Kimmy Caal APRN.[employer] Work Phone: [facility] 05-28-2022 18:32-0500 Systolic blood pressure 138 mm[Hg] Kimmy Cobb-Bassem RIGGS.DETONATOR MAKER Work Phone: [facility] 04-18-2022 08:58-0400 Body height 157.5 cm Beverley Milana MD Work Phone: [facility] 04-18-2022 08:58-0400 Body weight 70.31 kg Beverley Cortés MD Work Phone: [facility] 11-03-2021 10:29-0400 Body height 157.5 cm Beverley Cortés MD Work Phone: [facility] 11-03-2021 10:290400 Body weight 66.68 kg Beverley Cortés MD Work Phone: [facility] 09-29-2021 10:26-0400 Body height 157.5 cm Les Griffin RAW PRODUCTS DIRECTOR.[employer]ONATOR MAK[employer] Work Phone: [facility] 09-29-2021 10:26-0400 Body weight 66.68 kg Les Griffin RAW PRODUCTS DIRECTOR.DETONATOR MAKER Work Phone: [facility] 09-29-2021 10:26-0400 Diastolic blood pressure 80 mm[Hg] Les Griffin [employer] PRODU[employer] DIRECTOR.DETONATOR MAKER Work Phone: [facility] 09-29-2021 10:26-0400 Systolic blood pressure 142 mm[Hg] Les Griffin [employer] PRODU[employer] DIRECTOR.DETONATOR MAKER Work Phone: [facility] 09-20-2021 13:09-0400 Body height 157.5 cm Beverley Cortés MD Work Phone: [facility] 09-20-2021 13:09-0400 Body weight 66.68 kg Beverley Cortés MD Work Phone: [facility] 09-20-2021 13:09-0400 Diastolic blood pressure 72 mm[Hg] Beverley Cortés MD Work Phone: [facility] 09-20-2021 13:09-0400 Systolic blood pressure 134 mm[Hg] Beverley Cortés MD Work Phone: [facility] Encounters Encounter Date Encounter Type Care Provider Facility Start: 06-07-2023 End: 06-07-2023 ambulatory MELANIE LEVY Facility:[facility] Start: 03-25-2023 Encounter for other preprocedural examination BEVERLEY CORTÉS [facility] Start: 03-25-2023 End: 03-26-2023 ambulatory DENICE TERRELL Facility:[facility] Start: 03-25-2023 End: 03-26-2023 ambulatory STEPHANIE DICKINSON Facility:[facility] Start: 03-25-2023 Encounter for other preprocedural examination BEVERLEY MILANA [facility] Start: 05-30-2022 Telephone encounter Kimmy Wright APRN.CNP Work Phone: [facility] Procedures Date Procedure Procedure Detail Performing Clinician Start: 03-25-2023 Antibody screen BEVERLEY T RAHUL Plan of Treatment Date Care Activity Detail Author Start: 09-11-2026 HPV TESTING HPV TESTING [facility] Start: 09-11-2026 PAP TESTING PAP TESTING [facility] Start: 05-28-2022 End: 07-28-2022 Bacteria identified in Urine by Culture [facility] Work Phone: Payers Date Payer Category Payer Medicare [id number] 2023 Medicare [id number] 2021 Unknown [employer] PPO [id number] 2021-Present [phone] [address] [place] [address] PPO [id number] 2021 Unknown [id number] 2020 Unknown [employer] PPO OOS [id number] 2020-Present [phone] [address] [place] [address] PPO [id number] 2020 Unknown [id number] 2008 Unknown Social History Date Type Detail Facility Start: 11-15-2015 End: 04-18-2022 Tobacco smoking status NHIS Ex-smoker [facility] End: 01-02-2013 History of tobacco use Current smoker [facility] Start: 11-15-2015 End: 04-18-2022 Cigarettes smoked current (pack per day) - Reported 1 [facility] Start: 11-15-2015 End: 04-18-2022 Tobacco use and exposure Smokeless tobacco non-user [facility] Start: 09-20-2021 End: 05-28-2022 Alcohol intake Current non-drinker of alcohol (finding) [facility] Start: 1960 Sex Assigned At Not on file C [facility] Start: 09-01-2021 End: 11-03-2021 Exposure to SARS-CoV-2 (event) Not sure [facility] End: 01-02-2013 History of tobacco use Cigarette Smoker [facility] Clinical Notes 11-15-2015 to 04-01-2023 Telephone Encounter - Kimmy Caal APRN.CNP - 05/31/2022 9:29 AM ESTTelephone Encounter - Chelsea Nails RN - 05/31/2022 9:16 AM James Caal APRN.DETONATOR MAKER - 05/28/2022 6:45 PM EST Note Date & Type Note Facility 04-01-2023 Note HNO ID: [id number] Author: Dorothea Swift MD Service: Obstetrics Author Type: Resident Type: Progress Notes Filed: 04/01/2023 5:21 PM Note Text: Up to evaluate patient. Per RADIAGRAPH OPERATOR, patient with continued pain, hypertension and apnea. Patient states that her pain is mostly in her perirectal area. She states that she rates the pain 7/10. RN reports having given her IV fentanyl and IV dilaudid, but have not given her any non narcotic pain medication. Per nursing, patient has also been intermittently apneic since she came to PACU. BP 191/81 Pulse 77 Temp 36 ?C (96.8 ?F) (Temporal) Resp 10 SpO2 100% Discussed with Dr. Dickinson Per Dr. Dickinson, this type of pain is common post op Recommend limiting IV narcotic, prefer patient to wake up to avoid apnea Recommend toradol and tylenol for pain control Will continue to monitor Please page [phone] for any further questions SIGNATURE: Dorothea Swift MD PATIENT NAME: Reji Oliva DATE: April 01, 2023 TIME: 5:21 PM PAGER/CONTACT #: [phone] [facility] 04-01-2023 Note HNO ID: [id number] Author: Rodrigo Mariee APRN.CRNA Service: Anesthesiology Author Type: Nurse Market Research Assistant Type: Anesthesia Procedure Notes Filed: 04/01/2023 12:44 PM Note Text: ANESTHESIOLOGY PROCEDURE NOTE Airway General Information Procedure Start Time/Medication Administration: 04/01/2023 12:32 PM Patient location during procedure: OR Timeout Performed Pre-procedure: timeout performed Consent Obtained: Yes Patient identity confirmed: arm band Staffing COOK SYRUP MAKER: Rodrigo Mariee APRN.C[employer] S[employer] MAKER Performed by: SANTOS Indications and Patient Condition Indications for airway management: anesthesia Preoxygenated: yes anesthesia circuit Patient position: sniffing Method: asleep Cricoid Pressure: No Manual In-Line Stabilization: No Difficult Mask: No Final Airway Details Final airway type: endotracheal airway Final Endotracheal Airway: ETT Cuffed: yes Successful intubation technique: direct laryngoscopy Endotracheal tube insertion site: oral Blade: Junior Blade size: #4 ETT size (mm): 7.0 Measured from: lips Measurement (cm): 22 Placement verified by: chest auscultation and capnometry Cormack-Lehane Classification: grade I - full view of glottis Number of attempts at approach: 1 Failed airway: no Unrecognized esophageal intubation: no Airway not difficult SIGNATURE: Rodrigo Mariee APRN.CRNA PATIENT NAME: Reji Oliva DATE: April 01, 2023 TIME: 12:43 PM CSN: [id number] [facility] 03-27-2023 Note HNO ID: [id number] Author: Long Prakash PA Service: Anesthesiology Author Type: Physician Retail Sales Vitamin Consultant Type: Progress Notes Filed: 03/27/2023 1:23 PM Note Text: Summary: Anesthesia Red dot f/u I reviewed the patient red dot concerns with Dr. Goode who stated that the patient is okay to proceed with the procedure without the need of an ECHO prior. [facility] 03-25-2023 Note HNO ID: [id number] Author: Nelly Mak APRN.CNP Service: Nursing Author Type: Nurse Practitioner Type: Progress Notes Filed: 03/25/2023 11:53 AM Note Text: Summary: PAT CC CHALINO Please review with anesthesia to see if medical clearance needed. Heart murmur, has never had ECHO. Diabetes (HCC) Lantus, metformin, Humalog Per pt A1C 2 week ago 8.0%. Managed by PCP Hypertension Lisinopril-HCTZ, metoprolol Instructed to take DOS GERD (gastroesophageal reflux disease) On PPI Instructed to take DOS. Anemia no recent HANDH. CBC pending has had blood transfusion int he past. Pt report due to extensive use of Ibuprofen. Heart murmur Per pt , PCP aware of a heart murmur, no echo has been done. Pt denies chest pain or palpitations, SOB or sweating, or syncope or near syncope. Cervical prolapse Scheduled for surgery Cystocele, midline Scheduled for surgery Pre-op exam Medical conditions which may affect the perioperative course were address in today's visit. Ex-smoker Pt reports stopped smoking 12/2012, 25 total pack years. [facility] 05-31-2022 Miscellaneous Notes Noted. Patient is currently taking Macrobid. Kimmy Caal APRN.CNP [facility]- phoned to let provider know, the original urine culture lab showed no growth, but the result was an instrument error, and they had to re-plant it. The new result does show growth. Please review and advise patient. Attempted to kylie pt voicemail is full, unable to leave message. Will try again later. Deena Burleson MA ----- Message from Kimmy Caal APRN.CNP sent at 05/30/2022 9:03 AM EST ----- Urine culture did not show clear evidence of infection. She may continue to take antibiotic if it has been helpful. Recommend follow up with PCP to ensure hematuria has resolved. Kimmy Caal CNP documented in this encounter [facility] 05-28-2022 History of Presen t illness Narrative Subjective UTI Associated symptoms include frequency, hematuria and urgency. Pertinent negatives include no chills, no nausea, no vomiting and no flank pain. Reji Oliva is a 62 year old female who presents with uti symptoms x 2 weeks. She has had frequency, burning, hematuria, cloudy urine, malodorous urine. She has a history of a prolapsed bladder. She sees uro-gynecology for this. She denies fever, chills, N/V, back pain. Has occasional pelvic cramping. Review of Systems Constitutional: Negative for chills and fever. Respiratory: Negative. Cardiovascular: Negative. Gastrointestinal: Positive for abdominal pain (pelvic cramping). Negative for nausea and vomiting. Genitourinary: Positive for dysuria, frequency, hematuria and urgency. Negative for flank pain. Musculoskeletal: Negative for back pain. BP 138/88 Pulse 80 Temp 36.7 C (98.1 F) Resp 20 Wt 72.9 kg (160 lb 12.8 oz) SpO2 94% BMI 29.41 kg/m PAST MEDICAL HISTORY Diagnosis Date Diabetes (HCC) on insulin Fatty liver disease, nonalcoholic GERD (gastroesophageal reflux disease) 01/03/2016 Hypertension PAST SURGICAL HISTORY Procedure Laterality Date SECTION HX HIP SURGERY HX Left 01/2020 TUBAL LIGATION HX at time of csection TX INGROWN TOENAIL ALLERGIES Flexeril [Cyclobenzaprine] MEDICATIONS simvastatin (ZOCOR) 40 mg tablet Take 40 mg by mouth once daily. Cholecalciferol, Vitamin D3, 50 mcg (2,000 unit) cap Take by mouth. LANTUS SOLOSTAR U-100 INSULIN 100 unit/mL (3 mL) INJECT 50 UNITS SUBCUTANEOUSLY EVERY DAY AT BEDTIME metFORMIN (GLUCOPHAGE) 500 mg tablet Take 500 mg by mouth twice daily with meals. lisinopril-hydrochlorothiazide (PRINZIDE, ZESTORETIC) 20-25 mg per tablet Take 1 tablet by mouth once daily. metoprolol tartrate, short acting, (LOPRESSOR) 50 mg tablet Take 50 mg by mouth twice daily. Omeprazole 40 mg capsule Take 40 mg by mouth once daily. INSULIN LISPRO (HUMALOG KWIKPEN SUBCUTANEOUS) Inject subcutaneously three times daily. 16 breakfast 20 lunch 22 dinner nitrofurantoin monohydrate and macrocrystal (MACROBID) 100 mg capsule Take 1 capsule by mouth twice daily with meals for 7 days. mometasone (ELOCON) 0.1 % cream Apply 1 application to affected area once daily. (Patient not taking: Reported on 03/19/2019 ) triamcinolone acetonide (KENALOG) 0.1 % cream Apply 1 application to affected area twice daily. (Patient not taking: Reported on 01/13/2018 ) aspirin 325 mg tablet Take 325 mg by mouth once daily. (Patient not taking: Reported on 09/11/2021 ) INSULIN DETEMIR (LEVEMIR FLEXTOUCH SUBCUTANEOUS) Inject subcutaneously. At dinner (Patient not taking: Reported on 05/28/2022) FAMILY HISTORY Problem Relation Age of Onset Hypertension Mother Hypertension Father Diabetes Sister Diabetes Brother Social History Tobacco Use Smoking status: Former Packs/day: 1.00 Years: 25.00 Pack years: 25.00 Types: Cigarettes Quit date: 01/02/2013 Years since quittin.4 Smokeless tobacco: Never Substance Use Topics Alcohol use: No Drug use: No Objective Physical Exam Vitals and nursing note reviewed. Constitutional: Appearance: Normal appearance. Cardiovascular: Rate and Rhythm: Normal rate and regular rhythm. Heart sounds: Normal heart sounds. Pulmonary: Effort: Pulmonary effort is normal. Breath sounds: Normal breath sounds. Abdominal: General: There is no distension. Palpations: Abdomen is soft. There is no mass. Tenderness: There is abdominal tenderness in the suprapubic area. There is no right CVA tenderness, left CVA tenderness or guarding. Skin: General: Skin is warm and dry. Neurological: Mental Status: She is alert. ASSESSMENT/PLAN: 1. Urinary frequency - ICD9: 788.41, ICD10: R35.0 acute - UA positive for jeni esterase, hematuria, proteinuria, and nitrates - Send urine for culture - Begin treatment with Macrobid 100 mg BID for 7 days - Patient education for prevention given - UA DIP, URINE (POC) - URINE CULTURE - NITROFURANTOIN MONOHYDRATE & MACROCRYSTAL 100 MG ORAL CAP - Follow-up with your PCP in 3-5 days if symptoms have not improved or sooner if symptoms worsen - Discussed red flags and need for immediate medical evaluation if any occur. - Discussed supportive care treatment with fluids, rest and analgesia. - Discussed expected course of illness Kimmy Caal APRN.CNP documented in this encounter [facility] 05-28-2022 Instructions Kimmy Caal APRN.CNP - 05/28/2022 6:41 PM EST ASSESSMENT/PLAN: 1. Urinary frequency - ICD9: 788.41, ICD10: R35.0 acute - UA positive for jeni esterase, hematuria, proteinuria, and nitrates - Send urine for culture - Begin treatment with Macrobid 100 mg BID for 7 days - Patient education for prevention given - UA DIP, URINE (POC) - URINE CULTURE - NITROFURANTOIN MONOHYDRATE & MACROCRYSTAL 100 MG ORAL CAP - Follow-up with your PCP in 3-5 days if symptoms have not improved or sooner if symptoms worsen - Discussed red flags and need for immediate medical evaluation if any occur. - Discussed supportive care treatment with fluids, rest and analgesia. - Discussed expected course of illness Kimmy Caal APRN.[employer] [facility] PATIENT INFO BLADDER INFECTION OVERVIEW Bladder infections are one of the most common infections, causing symptoms of burning with urination and needing to urinate frequently. A bladder infection is a type of urinary tract infection (UTI). Bladder infections are more common is women than men. Most women have an uncomplicated bladder infection that is easily treated with a short course of antibiotics. In men, bladder infections may also affect the prostate gland, and a longer course of treatment may be needed. BLADDER INFECTION CAUSES The urinary tract includes the kidneys (which filter urine), ureters (the tube that carries urine from the kidneys to the bladder), the bladder (which stores urine), and urethra (the tube that carries urine out of the bladder). Bacteria do not normally live in these areas. However, bacteria normally live close to the urethra in women and men who are not circumcised. Bladder infections occur when bacteria travel up the urethra into the bladder. Factors that increase the risk of developing a bladder infection include: Vaginal sex Use of spermicides History of past bladder infections Diabetes In men, not being circumcised or having anal sex increase the risk of bladder infections. BLADDER INFECTION SYMPTOMS The typical symptoms of a bladder infection include: Pain or burning when urinating Frequent need to urinate Urgent need to urinate Blood in the urine Fever, back pain, nausea, or vomiting are not common symptoms of a bladder infection, but can occur in people with a kidney infection (pyelonephritis). If you have these symptoms, you should call your doctor or nurse immediately. Is it a bladder infection or something else? -- Burning with urination can also occur in people with vaginitis (eg, yeast infection) or urethritis (inflammation of the urethra). For this reason, it is important to call your healthcare provider before assuming you have a bladder infection. BLADDER INFECTION DIAGNOSIS Simple bladder infections are usually diagnosed based upon your symptoms alone. However, most patients, especially those who have bladder infection symptoms for the first time, should see a healthcare provider for urine testing. Urine culture -- A urine culture is a test that uses a sample of urine to try and grow bacteria in a laboratory. It usually requires about 48 hours to get results. However, a urine culture is not always required to diagnose a bladder infection. Urine culture is often recommended if: You have never had a bladder infection before You have symptoms that are not typical for bladder infection You have had resistant bladder infections before You have frequent bladder infections You do not begin to feel better within 24 to 48 hours after starting antibiotics You are BLADDER INFECTION TREATMENT Bladder infection -- In young, healthy adolescents and adults with a bladder infection, the usual treatment includes a three to seven day course of antibiotics. The typical drugs chosen are: trimethoprim-sulfamethoxazole (Bactrim ), nitrofurantoin (Macrobid ), ciprofloxacin (Cipro ) or levofloxacin (Levaquin ). In men, the infection may involve your prostate gland and treatment is usually given for at least 7 days. Your symptoms should begin to resolve within one day after starting treatment. It is important to take the full course of antibiotics to completely eliminate the infection. If your symptoms persist for more than two or three days after starting treatment, call your healthcare provider. If needed, you can take a prescription medication that numbs the bladder and urethra (phenazopyridine [Pyridium ]) to reduce the burning pain of some UTIs. A similar medication is available without a prescription (eg, Uristat). Both medications change the color of the urine (usually blue or orange) and can interfere with laboratory testing. You should not take these medications for more than 48 hours due to the risk of side effects. These medications do not treat the infection and must be taken along with an antibiotic. Some providers recommend drinking more fluids while treating bladder infections to help flush bacteria from the bladder. Others believe that drinking more fluids may dilute the antibiotic in the bladder and make the medication less effective. No studies have been performed to address this issue. There are also no good studies on the effectiveness of cranberry juice for treating a bladder infection; we do not recommend using cranberry juice to treat bladder infections. Follow-up care -- Follow-up testing is not needed in healthy, young men or women with a bladder infection if symptoms resolve. women are usually asked to have a repeat urine culture one to two weeks after treatment has ended to make sure the bacteria are no longer in the urine. RECURRENT BLADDER INFECTIONS Bladder infections versus other causes -- Some adults, especially women, develop bladder infections frequently. In this case, it is important to confirm that your symptoms (eg, pain or burning, frequency, and urgency) are caused by a bladder infection. Symptoms are usually similar from one infection to another. The best way to confirm an infection is to have a urine culture. If your urine culture is negative for infection, other causes of pain, burning, and frequency should be investigated. There is no reason to take antibiotics if your urine culture is negative. Need for further testing -- If you continue to develop bladder infections, you may require further testing. If you continue to notice blood in your urine after your bladder infection has cleared, you should have further testing. Preventing recurrent UTIs -- Women with recurrent urinary tract infections may be advised to take steps to prevent bladder infections, including one or more of the following: Changes in control -- Women who develop frequent bladder infections and use spermicides, particularly those who also use a diaphragm, may be encouraged to use an alternate method of control. Cranberry products -- Taking cranberry juice or cranberry tablets has been promoted as one way to help prevent frequent bladder infections. However, this has not been proven. Drinking more fluid and urinating after intercourse -- Although studies have not proven that drinking more fluids or urinating soon after intercourse can prevent infection, some healthcare providers recommend these measures since they are not harmful. Drinking more fluid may help to wash out bacteria that enter the bladder. Postmenopausal women -- Postmenopausal women who develop recurrent bladder infections may benefit from using vaginal estrogen. Vaginal estrogen is available in a flexible ring that is worn in the vagina for three months (eg, Estring ), a small tablet (Vagifem ), or a cream (eg, Premarin or Estrace ). Vaginal estrogen is discussed in more detail in a separate topic review. Antibiotics -- A preventive antibiotic treatment may be recommended if you repeatedly develop bladder infections and have not responded to other preventive measures. Antibiotics are highly effective in preventing recurrent bladder infections and can be taken in several different ways. Preventive antibiotic -- You can take a low dose of an antibiotic once per day or three times per week for six months to several years. Antibiotics following intercourse -- In women who develop urinary tract infections after sex, taking a single low dose antibiotic after intercourse can help to prevent bladder infections. Self-treatment -- A plan to begin antibiotics at the first sign of a bladder infection may be recommended in some situations. Before starting this regimen, it is important that you have had testing (urine cultures) to confirm that your symptoms are caused by a bladder infection; some people have symptoms of a bladder infection but do not actually have an infection. documented in this encounter [facility] 05-28-2022 Miscellaneous Notes Spoke with patient. Gave information. She states that she will go this evening to submit. Savanna Truong RN To ensure appropriate treatment, she will need to submit a urine to the lab for culture. Once that is submitted, I can prescribe an antibiotic. Order placed. Les Griffin APRN.CNP Pt called states she has a UTI - Burning, frequency, intermittency Pt states she can not come to office due to starting a new job- Pt would like to know if you will kylie in an ABX for her Please advise Yue Vuong CMA documented in this encounter [facility] 05-11-2022 Miscellaneous Notes Pt left a message on the clinical voicemail, asking for a return call. I tried to reach pt and was unable to leave a message as her voicemail was full. Not sure what pt needed. Will await a return call from pt. Darien Ozuna Cma documented in this encounter [facility] 10-19-2022 Note HNO ID: [id number] Author: Beverley Cortés MD Service: ? Author Type: Physician Type: Progress Notes Filed: 04/18/2022 3:44 PM Note Text: Female Pelvic Medicine AND Reconstructive Surgery Follow-Up Reji Oliva is a 62 year old female, who presents for a follow-up of pelvic organ prolapse. POP-Q 09/20/21: Aa = +2.5 Ba = +2.5 C = +2.5 gh = 5.0 pb = 2.0 tvl = 8.0 Ap = 0 Bp = 0 D = -4.0 Last visit 11/03/21: 1. Gross hematuria - Cystoscopy findings reviewed and discussed. Recommended referral to urology for possible bladder biopsies. - CT urogram scheduled 11/08/21 - CYTOLOGY NON-LOSS PREVENTION SPECIALIST - CONSULT TO UROLOGY; Future 2. Bladder wall thickening - CONSULT TO UROLOGY; Future 3. Abnormal cystoscopy - CONSULT TO UROLOGY; Future History since last visit: Pt was no show for appointment with Dr. Mayo on 11/16/21. She was refitted for a pessary, but it was too uncomfortable and it fell out so she has not been using it. Pt feels her prolapse has dropped more. She can feel the bulge with her hand. Last Hgb A1C 8.5 about 1 month ago Urinary Incontinence: yes Voiding Dysfunction: yes Urinary Frequency: yes Urinary Urgency: yes Prolapse Symptoms: yes Defecatory Dysfunction: no Fecal Incontinence: no Abnormal Bleeding: no Pain: yes, soreness Abnormal Vaginal Discharge: yes, white and thin LOSS PREVENTION SPECIALIST HISTORY: Last pap: Date:09/11/21 NIL HPV neg; Last mammogram: Her last mammogram was 04/11/17 negative. She has no history of an abnormal mammogram LMP: No LMP recorded. Patient is postmenopausal.; Menopause post: Menstrual history: NA; Deliveries: C/Sec, I have confirmed and edited as necessary, the PFSH obtained by others. Beverley Cortés MD Molecular Biologist offered: Patient accepts, visit chaperoned by Bart Landry MS4. OBJECTIVE: Ht 5' 2 (1.58m) Wt 155 lb (70.3kg) BMI 28.34 kg/(m2). General: Well appearing, alert, in no acute distress, well-hydrated, well nourished. Abdomen: Abdomen soft, non-tender, No masses, organomegaly Pelvic: Ext. Genitalia: No lesions or other abnormalities Vagina: atrophic epithelium and see POPQ POP-Q: Prolapse Noted: Yes Aa = +3.0 Ba = +3.0 C = +2.0 gh = 6.5 pb = 2.5 tvl = 9.0 Ap = -1.0 Bp = -1.0 D = -2.0 Cervix: Normal Urethra: Hypermobile Bimanual: Normal size anteverted uterus, No tenderness, No masses Rectovaginal: Deferred Levator Ani Contraction: 1+ Levator Ani Tone: normal Levator Ani Tenderness: Yes, mild bilateral Urine dip mod blood, mod leuk, +nitrite Impression: Reji Oliva is a 62 year old female with stage 3 anterior predominant uterovaginal prolapse with cystocele and rectocele, poorly controlled DM, gross hematuria, bladder wall thickening, abnormal cystoscopy findings, acute cystitis. Plan: 1. Complete uterovaginal prolapse - Reviewed options of pessary refitting vs surgery - Pt is interested in surgical management. We discussed that her Hgb A1C must be <8 and she must follow see urology for evaluation prior to surgery. - Discussed that I am leaving [facility] in May. Pt would prefer to see me at [facility] in the new year to revisit surgery. Scheduling number given and she will check with her insurance. - If [facility] is not covered, then she will plan for follow up with Les Griffin NP in 3 months to review A1C and refer to other [facility] urogyn surgeon. 2. Cystocele, midline - As above 3. Rectocele - As above 4. Poorly controlled diabetes mellitus (HCC) - As above 5. Gross hematuria - CONSULT TO UROLOGY; Future 6. Bladder wall thickening - CONSULT TO UROLOGY; Future 7. Abnormal cystoscopy - CONSULT TO UROLOGY; Future 8. Acute cystitis without hematuria - URINE CULTURE - URINALYSIS, WITH MICROSCOPIC - nitrofurantoin monohydrate and macrocrystal (MACROBID) 100 mg capsule; Take 1 capsule by mouth twice daily for 5 days. Dispense: 10 capsule; Refill: 0 Medical Decision Making: Problems: Moderate: 2+ stable chronic illnesses Data: Unique test result(s) reviewed: 1 Unique test(s) ordered: 2 Risk: Moderate: Drug management Medical Decision Making Level: 4 - Moderate Beverley Cortés MD [facility] 04-18-2022 Instructions Beverley Cortés MD - 04/18/2022 9:32 AM EDT Schedule appointment with urology Follow up with Les Griffin NP in 3 months [facility] scheduling number [phone] documented in this encounter [facility] 04-18-2022 History of Presen t illness Narrative Female Pelvic Medicine & Reconstructive Surgery Follow-Up Reji Oliva is a 62 year old female, who presents for a follow-up of pelvic organ prolapse. POP-Q 09/20/21: Aa = +2.5 Ba = +2.5 C = +2.5 gh = 5.0 pb = 2.0 tvl = 8.0 Ap = 0 Bp = 0 D = -4.0 Last visit 11/03/21: 1. Gross hematuria - Cystoscopy findings reviewed and discussed. Recommended referral to urology for possible bladder biopsies. - CT urogram scheduled 11/08/21 - CYTOLOGY NON-LOSS PREVENTION SPECIALIST - CONSULT TO UROLOGY; Future 2. Bladder wall thickening - CONSULT TO UROLOGY; Future 3. Abnormal cystoscopy - CONSULT TO UROLOGY; Future History since last visit: Pt was no show for appointment with Dr. Mayo on 11/16/21. She was refitted for a pessary, but it was too uncomfortable and it fell out so she has not been using it. Pt feels her prolapse has dropped more. She can feel the bulge with her hand. Last Hgb A1C 8.5 about 1 month ago Urinary Incontinence: yes Voiding Dysfunction: yes Urinary Frequency: yes Urinary Urgency: yes Prolapse Symptoms: yes Defecatory Dysfunction: no Fecal Incontinence: no Abnormal Bleeding: no Pain: yes, soreness Abnormal Vaginal Discharge: yes, white and thin LOSS PREVENTION SPECIALIST HISTORY: Last pap: Date:09/11/21 NIL HPV neg; Last mammogram: Her last mammogram was 04/11/17 negative. She has no history of an abnormal mammogram LMP: No LMP recorded. Patient is postmenopausal.; Menopause post: Menstrual history: NA; Deliveries: C/Sec, I have confirmed and edited as necessary, the PFSH obtained by others. Beverley Cortés MD Molecular Biologist offered: Patient accepts, visit chaperoned by Bart Landry MS4. OBJECTIVE: Ht 5' 2 (1.58m) Wt 155 lb (70.3kg) BMI 28.34 kg/(m^2). General: Well appearing, alert, in no acute distress, well-hydrated, well nourished. Abdomen: Abdomen soft, non-tender, No masses, organomegaly Pelvic: Ext. Genitalia: No lesions or other abnormalities Vagina: atrophic epithelium and see POPQ POP-Q: Prolapse Noted: Yes Aa = +3.0 Ba = +3.0 C = +2.0 gh = 6.5 pb = 2.5 tvl = 9.0 Ap = -1.0 Bp = -1.0 D = -2.0 Cervix: Normal Urethra: Hypermobile Bimanual: Normal size anteverted uterus, No tenderness, No masses Rectovaginal: Deferred Levator Ani Contraction: 1+ Levator Ani Tone: normal Levator Ani Tenderness: Yes, mild bilateral Urine dip mod blood, mod leuk, +nitrite Impression: Reji Oliva is a 62 year old female with stage 3 anterior predominant uterovaginal prolapse with cystocele and rectocele, poorly controlled DM, gross hematuria, bladder wall thickening, abnormal cystoscopy findings, acute cystitis. Plan: 1. Complete uterovaginal prolapse - Reviewed options of pessary refitting vs surgery - Pt is interested in surgical management. We discussed that her Hgb A1C must be <8 and she must follow see urology for evaluation prior to surgery. - Discussed that I am leaving [facility] in May. Pt would prefer to see me at [facility] in the new year to revisit surgery. Scheduling number given and she will check with her insurance. - If [facility] is not covered, then she will plan for follow up with Les Griffin NP in 3 months to review A1C and refer to other [facility] urogyn surgeon. 2. Cystocele, midline - As above 3. Rectocele - As above 4. Poorly controlled diabetes mellitus (HCC) - As above 5. Gross hematuria - CONSULT TO UROLOGY; Future 6. Bladder wall thickening - CONSULT TO UROLOGY; Future 7. Abnormal cystoscopy - CONSULT TO UROLOGY; Future 8. Acute cystitis without hematuria - URINE CULTURE - URINALYSIS, WITH MICROSCOPIC - nitrofurantoin monohydrate and macrocrystal (MACROBID) 100 mg capsule; Take 1 capsule by mouth twice daily for 5 days. Dispense: 10 capsule; Refill: 0 Medical Decision Making: Problems: Moderate: 2+ stable chronic illnesses Data: Unique test result(s) reviewed: 1 Unique test(s) ordered: 2 Risk: Moderate: Drug management Medical Decision Making Level: 4 - Moderate Beverley Cortés MD documented in this encounter [facility] 11-16-2021 Miscellaneous Notes Patient has been contacted via: Phone To reschedule appointment with Provider: Arnaldo Mayo Date of appointment: 11/16/21 Reason: No Show Attempt: First Attempt Patient call back number given: [phone] Martha Lerner' documented in this encounter [facility] 11-10-2021 Miscellaneous Notes Patient informed. Krishna Restrepo Ma Please inform pt her urine showed atypical urothelial cells. Keep upcoming appointment with Dr. Mayo as scheduled. Beverley Cortés MD documented in this encounter [facility] 11-03-2021 Instructions Beverley Cortés MD - 11/03/2021 10:49 AM EDT Schedule appointment with urology CYSTOSCOPY HOMEGOING INSTRUCTIONS You have undergone a cystoscopy procedure where a telescope was inserted into your bladder through your urethra. What to expect: You may have a burning sensation during urination and/or blood-tinged urine. These symptoms will normally subside within 24 hours and with increased fluid intake. When to call the physician s office: If you have a fever of 100.4 degrees Fahrenheit or higher If you are unable to urinate If your urine becomes bloody and does not clear with increased fluid intake. If after 24 hours, you have signs of a urinary tract infection. UROGYNECOLOGY PHYSICIAN CONTACT INFORMATION Dr. Vela Dr. Womack (Valdemar) Dr. Carrasquillo Dr. Hernandez Dr. Epps Dr. Rene Dr. Cortés Dr. Lizarraga Nettie Barton, AKBAR Griffin, AKBAR Holliday, AKBAR Bansal, AKBAR After 4:30 pm or on holidays or weekends, call: or . Ask the coal briquette machine operator to page the LOSS PREVENTION SPECIALIST rehabilitation inspector.' [facility] [place] Patients ONLY: After 4:30 PM or on holidays or weekends, call and you will be connected to the answering service/physician rehabilitation inspector. Please DO NOT use MyChart for procedure concerns. documented in this encounter [facility] 11-03-2021 History of Presen t illness Narrative 11/03/2021 Reji Oliva presents today for a diagnostic cystoscopy. Indication: gross hematuria. UNIVERSAL PROTOCOL / SAFETY CHECKLIST Procedure to be Performed: cystourethroscopy Sign In: A Moment of CARE was completed. Personnel directly involved with the procedure wore the appropriate PPE (Personal Protective Equipment). No special equipment needed. Patient/Surrogate Stated/Verified: PATIENT VERIFIED(optional for EMERGENT procedures): Patient name, Date of , Relevant allergies and The intended procedure Time Out Communication: Intended patient and procedure match the source documents. Consent documented and matches the intended procedure. Relevant labs, photos, and/or imaging studies have been reviewed. No correct side/site applicable for marking and visibility. No medications required for procedure. Fire risk assessed and interventions discussed. No implant(s) inserted. Sign Out: SIGN OUT (optional for EMERGENT procedures): No specimen collected. All instruments, equipment, possible retained foreign bodies accounted for. Post-procedure follow-up management communicated and Plan of Care Visit completed when applicable. Beverley Cortés MD PROCEDURE: The patient was taken to the procedure room, placed in lithotomy position and prepped in the usual fashion. Anesthesia: Intraurethral Lidocaine jelly 6 mL. Video-assisted cystourethroscopy was performed using a 70 degree cystoscope with sterile water infusion. Findings: Erythema and inflammation of the posterior bladder, most prominent on the left side above the trigone. Bladder trabeculations present. No evidence of stones, bladder diverticulum, or other bladder abnormalities. The bladder trigone and ureteral orifices were seen and no abnormalities noted. Normal urethra without inflammation, diverticulum, or other abnormality. Complications: none Procedure Summary: Patient tolerated procedure well. Medications: None given, currently taking [facility] data reviewed today in Care Everywhere: 10/27/21 urine culture low colony count GNR 10/26/21 CT abd/pel without contrast: There is a 5.2 mm calcification along the posterior medial cortex of the upper pole of the right kidney. Stable 1.6 cm cyst in the upper pole of the left kidney. Mild degree of left hydronephrosis. No obstructive uropathy is seen. There is diffuse thickening of the urinary bladder wall more prominent posteriorly. IMPRESSION: Gross hematuria, bladder wall thickening, abnormal cystoscopy findings today PLAN: 1. Gross hematuria - Cystoscopy findings reviewed and discussed. Recommended referral to urology for possible bladder biopsies. - CT urogram scheduled 11/08/21 - CYTOLOGY NON-LOSS PREVENTION SPECIALIST - CONSULT TO UROLOGY; Future 2. Bladder wall thickening - CONSULT TO UROLOGY; Future 3. Abnormal cystoscopy - CONSULT TO UROLOGY; Future Beverley Cortés MD documented in this encounter [facility] 10-16-2021 Miscellaneous Notes Spoke with patient regarding hematuria on recent UA. She has a history of gross hematuria. We reviewed the work-up at length including cystoscopy, CT urogram and urine cytology. Advised patient I will place orders and we will call her to schedule. She understands. Les Griffin APRN.DETONATOR MAKER documented in this encounter [facility] 10-12-2021 Nurse Note Patient seen today for a straight cath for specimens. Straight cath performed using sterile technique with a 12 cambodian catheter. Patient tolerated well and specimens prepared for lab analysis. Savanna Truong RN documented in this encounter [facility] 10-09-2021 Miscellaneous Notes Called left message for results,. Maria Elena Burleson Cma Advise patient urine culture is contaminated. If she is still experiencing UTI symptoms, she can submit a new specimen. Les Griffin APRN.CNP documented in this encounter [facility] 09-29-2021 Miscellaneous Notes Patient was hit for a prosthetic today with Uro Gynecology. She was calling to inform her provider she really struggled to remove it herself. She will follow up with provider when the office is open. documented in this encounter [facility] 09-29-2021 Instructions Les Griffin APRN.CNP - 09/29/2021 10:51 AM EDT To call with pain/discomfort, vaginal bleeding or difficulty emptying bladder or bowels. Follow-up in 3 months. documented in this encounter [facility] 09-29-2021 History of Presen t illness Narrative Female Pelvic Medicine & Reconstructive Surgery Follow-Up Reji Oliva is a 61 year old female, who presents for a pessary fitting. History since last visit: Was fit for pessary with Dr. Vasquez, states the pessary fell out within 1 day. Here today for refitting. Abnormal Bleeding: no Pain: yes, related to prolapse. Abnormal Vaginal Discharge: no LOSS PREVENTION SPECIALIST HISTORY: Last pap: Date:couple weeks ago; Last mammogram: She has never had a mammogram LMP: No LMP recorded. Patient is postmenopausal.; Menopause no: Menstrual history: NA; Deliveries: {OB TYPE OF DELIVERY: vaginal and I have confirmed and edited as necessary, the PFSH obtained by others. Les Griffin APRN.CNP Molecular Biologist offered: Patient accepts, visit chaperoned by Nirali Tyler APRN-AKBAR. OBJECTIVE: BP 142/80 Ht 5' 2 (1.58m) Wt 147 lb (66.7kg) BMI 26.88 kg/(m^2). General: Well appearing, alert, in no acute distress, well-hydrated, well nourished. Abdomen: Deferred Pelvic: Ext. Genitalia: No lesions or other abnormalities Vagina: atrophic epithelium Patient fit with a 2 1/2 Gellhorn pessary. The pessary was positioned properly within the vagina. The patient reported no discomfort and the pessary stayed in placed with ambulating and using the restroom. Impression: Reji Oliva is a 61 year old female with POP. Plan: 1. Encounter for fitting and adjustment of pessary - Initial pessary fitting today (2 1/2 inch Gellhorn). 2. Complete uterovaginal prolapse - As above #1. 3. Cystocele, midline - As above #1. 4. Rectocele - As above #1. Les Griffin APRN.CNP documented in this encounter [facility] 09-25-2021 Miscellaneous Notes Patient notified of Suzy called to the office. She will repeat her culture and UA when treatment complete. Sanjuana Chan RN Advise patient urine culture indicates a small amount of yeast in the urine. This will need treated with Diflucan 200 mg daily x 2 weeks. Prescription sent to pharmacy. Advise patient she will need to submit another urine specimen once she has completed treatment. Orders placed for repeat UA and culture in approximately 2 weeks. Les Griffin APRN.DETONATOR MAKER documented in this encounter [facility] 09-20-2021 Instructions Beverley Cortés MD - 09/20/2021 1:50 PM EDT Schedule pessary fitting with Les Griffin NP We will call you with urine lab results and next steps documented in this encounter [facility] 09-20-2021 History of Presen t illness Narrative Female Pelvic Medicine & Reconstructive Surgery Consult CHIEF COMPLAINT: Reji Oliva is a 61 year old female who presents for consultation requested by Self Referred for an opinion regarding pelvic organ prolapse, gross hematuria. Last seen by Dr. Steiner 01/13/18: IMPRESSION: Reji Oliva is a 57 year old female with Urge Urinary Incontinence, Pelvic Organ Prolapse, and poorly controlled diabetes. PLAN: -POP diagnosis and management discussed using diagrams. Reviewed options- expectant management, PT, pessary, surgery. -Discussed management of overactive bladder / urge incontinence -Discussed that DM control is mandatory prior to pelvic organ prolapse repair and may help with urinary urgency and frequency -Discussed TVH with prolapse repairs vs LSC MICHEL with SCP -Will need preop UDS -Reji will work on DM control and call when she is ready to proceed with surgery HISTORY OF PRESENT ILLNESS: Pt reports she has a prolapse. She has a bothersome vaginal bulge that she can feel. About 2 weeks ago, she experienced an episode of painless gross hematuria. She went to see Dr. Vasquez and was fitted with a pessary (#4 ring with support). It stayed in place until that evening when she had a BM, then it fell out into the toilet. She reports her most recent Hgb A1C was 12% EMB 09/11/21 A. Endometrium, biopsy: - Atrophic endometrium. - Fragments of benign endocervical glands and squamous epithelium. Medical and Symptom History: LOSS PREVENTION SPECIALIST HISTORY: Last Pap: Date:09/11/21 NIL HPV neg; Last Mammogram: Her last mammogram was 2016. She has no history of an abnormal mammogram LMP: No LMP recorded. Patient is postmenopausal.; Menopause post: Menstrual history: NA; Deliveries: 1 x C/Sec, 1 x History of third or fourth degree laceration: Yes Weight of largest baby: 8 lbs 13 oz Sexual function Sexually active: Not sexually active [id number] Do you: Usually experience pressure in the lower abdomen? Yes, not at all bothersome (1) Usually experience heaviness or dullness in the pelvic area? Yes, not at all bothersome (1) Usually have a bulge or something falling out that you can see or feel in your vaginal area? Yes, quite a bit bothersome (4) Ever have to push on the vagina or around the rectum to have or complete a bowel movement? No (0) Usually experience a feeling of incomplete bladder emptying? Yes, moderately bothersome (3) Ever have to push up on a bulge in the vaginal area with your fingers to start or complete urination? No (0) Feel you need to strain too hard to have a bowel movement? Yes, somewhat bothersome (2) Feel you have not completely emptied your bowels at the end of a bowel movement? Yes, somewhat bothersome (2) Usually lose stool beyond your control if your stool is well formed? No (0) Usually lose stool beyond your control if your stool is loose? Yes, quite a bit bothersome (4) Usually lose gas from the rectum beyond your control? Yes, quite a bit bothersome (4) Usually have pain when you pass your stool? No (0) Experience a strong sense of urgency and have to miner to the bathroom to have a bowel movement? No (0) Does part of your bowel ever pass through the rectum and bulge outside during or after a bowel movement? No (0) Usually experience frequent urination? Yes, not at all bothersome (1) Usually experience urine leakage associated with a feeling of urgency, that is, a strong sensation of needing to go to the bathroom? No (0) Usually experience urine leakage related to coughing, sneezing or laughing? Yes, somewhat bothersome (2) Usually experience small amounts of urine leakage (that is, drops)? No (0) Usually experience difficulty emptying your bladder? Yes, somewhat bothersome (2) Usually experience pain or discomfort in the lower abdomen or genital region? No (0) Do you have pain associated with your prolapse (not pressure or fullness) Yes, what is your typical prolapse related pain on a scale of 0-10? 0 Where is your pain located? vagina PAST SURGICAL HISTORY Procedure Laterality Date SECTION HX HIP SURGERY HX Left 01/2020 TUBAL LIGATION HX at time of csection TX INGROWN TOENAIL PAST MEDICAL HISTORY Diagnosis Date Diabetes (HCC) on insulin Fatty liver disease, nonalcoholic GERD (gastroesophageal reflux disease) 01/03/2016 Hypertension FAMILY HISTORY Problem Relation Age of Onset Hypertension Mother Hypertension Father Diabetes Sister Diabetes Brother Current Outpatient Medications Medication Sig simvastatin (ZOCOR) 40 mg tablet Take 40 mg by mouth once daily. Cholecalciferol, Vitamin D3, 50 mcg (2,000 unit) cap Take by mouth. LANTUS SOLOSTAR U-100 INSULIN 100 unit/mL (3 mL) INJECT 50 UNITS SUBCUTANEOUSLY EVERY DAY AT BEDTIME metFORMIN (GLUCOPHAGE) 500 mg tablet Take 500 mg by mouth twice daily with meals. lisinopril-hydrochlorothiazide (PRINZIDE, ZESTORETIC) 20-25 mg per tablet Take 1 tablet by mouth once daily. metoprolol tartrate, short acting, (LOPRESSOR) 50 mg tablet Take 50 mg by mouth twice daily. INSULIN LISPRO (HUMALOG KWIKPEN SUBCUTANEOUS) Inject subcutaneously three times daily. 16 breakfast 20 lunch 22 dinner mometasone (ELOCON) 0.1 % cream Apply 1 application to affected area once daily. (Patient not taking: Reported on 03/19/2019 ) triamcinolone acetonide (KENALOG) 0.1 % cream Apply 1 application to affected area twice daily. (Patient not taking: Reported on 01/13/2018 ) Omeprazole 40 mg capsule Take 40 mg by mouth once daily. aspirin 325 mg tablet Take 325 mg by mouth once daily. (Patient not taking: Reported on 09/11/2021 ) INSULIN DETEMIR (LEVEMIR FLEXTOUCH SUBCUTANEOUS) Inject subcutaneously. At dinner (Patient not taking: Reported on 09/11/2021 ) No current facility-administered medications for this visit. ALLERGIES Allergen Reactions Flexeril [Cyclobenz* Other: See Comments Hallucinations SOCIAL HISTORY Social History Tobacco Use Smoking status: Former Smoker Packs/day: 1.00 Years: 25.00 Pack years: 25.00 Quit date: 01/02/2013 Years since quittin.7 Smokeless tobacco: Never Used Substance Use Topics Alcohol use: No Drug use: No Occupation: [employer] Status: REVIEW OF SYSTEMS General: Negative for unintentional weight loss, fever, chills, or weakness. Skin: Negative for rash or itching. Psychiatric: depression, denies SI/HI Neurologic: Negative for new headache or syncope. Endocrine: Negative for sweating, cold intolerance or heat intolerance. Cardiovascular: Negative for recent chest pain, chest pressure or chest discomfort. Hematologic/Lymphatic: Negative for easy bruising or excessive bleeding. Respiratory: Negative for wheezing, shortness of breath or persistent cough. Gastrointestinal: Negative for persistent abdominal pain. Negative for anorexia, persistent nausea and/or vomiting. Musculoskeletal: Negative for muscle pain, back pain, joint pain or stiffness. I have confirmed and edited as necessary, the PFSH and ROS obtained by others. Beverley Cortés MD Molecular Biologist offered: Patient accepts, visit chaperoned by Adonis Ramos LPN. OBJECTIVE: BP 134/72 Ht 5' 2 (1.58m) Wt 147 lb (66.7kg) BMI 26.88 kg/(m^2). Physical Exam Constitutional: BMI - Body mass index is 26.89 kg/m . General Appearance: Well appearing, alert, in no acute distress, well-hydrated, well nourished. Skin: Skin color, texture, turgor normal, no suspicious rashes or lesions Lungs: Unlabored on room air Heart: Not examined Breasts: Deferred Abdomen: Abdomen soft, non-tender, No masses, organomegaly Pelvic: External Genitalia: No lesions or other abnormalities Vagina: Ant Wall - Cystocele Stage III / IV ; Post Wall - Rectocele Stage II Cervix / [place] - Stage lll / lV prolapse POP-Q: Prolapse Noted: Yes Aa = +2.5 Ba = +2.5 C = +2.5 gh = 5.0 pb = 2.0 tvl = 8.0 Ap = 0 Bp = 0 D = -4.0 Vaginal epithelium: Atrophic Cervix: Normal Urethra: Hypermobile, Supine cough stress test negative Bimanual: Normal size anteverted uterus, No tenderness, No masses Rectovaginal: pt refused Levator Ani Contraction: 1+ Levator Ani Tone: normal Levator Ani Tenderness: No Saddle Sensory Exam (S2-4): normal Urine dip - voided: large blood, +protein, moderate leuk The urethra was prepped with betadine. A lubricated 14F catheter was inserted and the postvoid residual urine was collected. The PVR was 90 ml. Urine dip - straight cath: large blood, +protein, small leuk IMPRESSION: Reji Oliva is a 61 year old female with gross hematuria, stage 3 anterior/apical predominant uterovaginal prolapse with cystocele and rectocele, poorly controlled type 2 DM. PLAN: 1. Gross hematuria - Urine dip today appears consistent with urinary tract infection. Sent for UA micro and culture. Will treat based on results. - If urine culture is positive, will need repeat UA micro to ensure hematuria has resolved with treatment. - If urine culture is negative, will need urine cytology, CT urogram, and cystoscopy for further evaluation. - URINE CULTURE - URINALYSIS, WITH MICROSCOPIC 2. Complete uterovaginal prolapse - We discussed the options for management of pelvic organ prolapse including pelvic floor muscle exercises/pelvic floor physical therapy, pessary, and surgery. - Discussed that she is currently not a good candidate for surgical management given her uncontrolled diabetes. - Reji desires to try pessary re-fitting and will work on improving diabetic control. Schedule pessary fitting with Les Griffin NP. 3. Cystocele, midline - As above 4. Rectocele - As above 5. Poorly controlled diabetes mellitus (HCC) - As above Medical Decision Making: Problems: Moderate: New problem with uncertain prognosis Data: Unique test result(s) reviewed: 2 Unique test(s) ordered: 2 Risk: Low: Low risk from testing/treatment Medical Decision Making Level: 4 - Moderate My final recommendations will be communicated back to the requesting physician by way of shared Medical record or letter via US mail. Beverley Cortés MD documented in this encounter [facility] documented as of this encounter (statuses as of 09/20/2021) [address]17-2016 History of Past illness Narrative* Problem Noted Date Resolved Date Vulval lesion 11/15/2015 02/03/2016 documented as of this encounter (statuses as of 09/25/2021) [facility]-17-2016 History of Past illness Narrative* Problem Noted Date Resolved Date Vulval lesion 11/15/2015 02/03/2016 documented as of this encounter (statuses as of 09/29/2021) [address]17-2016 History of Past illness Narrative* Problem Noted Date Resolved Date Vulval lesion 11/15/2015 02/03/2016 documented as of this encounter (statuses as of 09/30/2021) [address]17-2016 History of Past illness Narrative* Problem Noted Date Resolved Date Vulval lesion 11/15/2015 02/03/2016 documented as of this encounter (statuses as of 10/09/2021) [address]17-2016 History of Past illness Narrative* Problem Noted Date Resolved Date Vulval lesion 11/15/2015 02/03/2016 documented as of this encounter (statuses as of 10/12/2021) [address]17-2016 History of Past illness Narrative* Problem Noted Date Resolved Date Vulval lesion 11/15/2015 02/03/2016 documented as of this encounter (statuses as of 10/16/2021) [facility] History of Past illness Narrative* Problem Noted Date Resolved Date Vulval lesion 11/15/2015 02/03/2016 documented as of this encounter (statuses as of 11/03/2021) [address]-2016 History of Past illness Narrative* Problem Noted Date Resolved Date Vulval lesion 11/15/2015 02/03/2016 documented as of this encounter (statuses as of 11/10/2021) [address]-2016 History of Past illness Narrative* Problem Noted Date Resolved Date Vulval lesion 11/15/2015 02/03/2016 documented as of this encounter (statuses as of 11/16/2021) [address]-2016 History of Past illness Narrative* Problem Noted Date Resolved Date Vulval lesion 11/15/2015 02/03/2016 documented as of this encounter (statuses as of 04/18/2022) [address]-2016 History of Past illness Narrative* Problem Noted Date Resolved Date Vulval lesion 11/15/2015 02/03/2016 documented as of this encounter (statuses as of 05/11/2022) [facility] History of Past illness Narrative* Problem Noted Date Resolved Date Vulval lesion 11/15/2015 02/03/2016 documented as of this encounter (statuses as of 05/28/2022) [facility] History of Past illness Narrative* Problem Noted Date Resolved Date Vulval lesion 11/15/2015 02/03/2016 documented as of this encounter (statuses as of 05/28/2022) [facility] History of Past illness Narrative* Problem Noted Date Resolved Date Vulval lesion 11/15/2015 02/03/2016 documented as of this encounter (statuses as of 06/20/2022) [facility] note* Diagnosis Gross hematuria- Primary Complete uterovaginal prolapse Uterovaginal prolapse, complete Cystocele, midline Rectocele Poorly controlled diabetes mellitus (HCC) Type II or unspecified type diabetes mellitus without mention of complication, not stated as uncontrolled [facility] Diagnosis Fungus present in urine- Primary Other and unspecified mycoses [facility] Diagnosis Encounter for fitting and adjustment of pessary- Primary Fitting and adjustment of other device Complete uterovaginal prolapse Uterovaginal prolapse, complete Cystocele, midline Rectocele [facility] Diagnosis Abnormal urine Other nonspecific finding on examination of urine Urinary tract infection without hematuria, site unspecified [facility] Diagnosis Gross hematuria- Primary [facility] Diagnosis Gross hematuria- Primary Bladder wall thickening Other specified disorders of bladder Abnormal cystoscopy Other nonspecific abnormal finding [facility] Diagnosis Complete uterovaginal prolapse- Primary Uterovaginal prolapse, complete Cystocele, midline Rectocele Poorly controlled diabetes mellitus (HCC) Type II or unspecified type diabetes mellitus without mention of complication, not stated as uncontrolled Gross hematuria Bladder wall thickening Other specified disorders of bladder Abnormal cystoscopy Other nonspecific abnormal finding Acute cystitis without hematuria Acute cystitis [facility] Diagnosis UTI symptoms- Primary Other symptoms involving urinary system [facility] Urinary frequency- Primary documented in this encounter [facility] Summary Purpose Family History No Family History Records FoundNo Family History Records FoundNo Family History Records FoundNo Family History Records FoundNo Family History Records Found Advance Directives No Advanced Directives Records FoundDocuments on File Type Date Recorded Patient Quality Tester Expl anation Advance Directive(s) 01/17/2016 6:16 AM Advance Directive(s) 12/12/2015 12:16 PM Documents on File Type Date Recorded Patient Quality Tester Expl anation Advance Directive(s) 01/17/2016 6:16 AM Advance Directive(s) 12/12/2015 12:16 PM Reason for Referral Specialty Diagnoses / Procedures Referred By Josh penn Referred To Contact CT IMAGING Diagnoses Gross hematuria Procedures CT UROGRAM WO/W IVCON CT ABD & PELVIS W/O CONTRST 1+ BODY Les Garcia, RAW PRODUCTS DIRECTOR.DETONATOR MAKER [address] [place] [address] Ct Imaging Referral ID Status Reason Start Date Expiration Date Visits Requested Visits Authorized [id number] Pending Review Auto-Generat ed Referral 10/16/2021 11/15/2022 1 1 Specialty Diagnoses / Procedures Referred By Josh penn Referred To Contact Urology Diagnoses Gross hematuria Bladder wall thickening Abnormal cystoscopy Procedures CONSULT TO UROLOGY OFFICE/OUTPATIENT [facility] 60-74 MINUTES Beverley Cortés MD [address] [facility] [address] [place] [address] Referral ID Status Reason Start Date Expiration Date Visits Requested Visits Authorized [id number] Pending Review PCP Requested Referral 11/03/2021 11/03/2022 1 1 Referral ID Status Reason Start Date Expiration Date Visits Requested Visits Authorized [id number] Pending Review PCP Requested Referral 04/18/2023 1 1 Medications Administered Section Inactive Administered Medications - up to 3 most recent administrations Medication Order MAR Action Action Date Dose Rate Site lidocaine urojet 2 % 6 mL topical gel (XYLOCAINE, GLYDO) 6 mL, URETHRAL, ONCE (UP TO 30 DAYS AMB), 1 dose, On Sat11/03/21 at 1030 Given 11/03/2021 11:25 AM EDT 6 mL Additional Source Comments INFORMATION SOURCE (unrecogn ized section and content) DATE CREATED AUTHOR AUTHOR'S ORGANIZ ATION 02/28/2018 [facility] DATE CREATED AUTHOR AUTHOR'S ORGANIZ ATION 04/08/2018 [facility] DATE CREATED AUTHOR AUTHOR'S ORGANIZ ATION 04/14/2023 [facility] DATE CREATED AUTHOR AUTHOR'S ORGANIZ ATION 06/09/2023 [facility] Source Comments (unrecognize d section and content) In the event this informatio n is protected by the Federal Confidentiality of Alcohol and Drug Abuse Patient Records regulations: The Federal rules restrict any use of the information to criminally investigate or prosecute any alcohol or drug abuse patient.[facility] the event this information is protected by the Federal Confidentiality of Alcohol and Drug Abuse Patient Records regulations: The Federal rules restrict any use of the information to criminally investigate or prosecute any alcohol or drug abuse patient.[facility] the event this information is protected by the Federal Confidentiality of Alcohol and Drug Abuse Patient Records regulations: The Federal rules restrict any use of the information to criminally investigate or prosecute any alcohol or drug abuse patient.[facility] the event this information is protected by the Federal Confidentiality of Alcohol and Drug Abuse Patient Records regulations: The Federal rules restrict any use of the information to criminally investigate or prosecute any alcohol or drug abuse patient.[facility] the event this information is protected by the Federal Confidentiality of Alcohol and Drug Abuse Patient Records regulations: The Federal rules restrict any use of the information to criminally investigate or prosecute any alcohol or drug abuse patient.[facility] the event this information is protected by the Federal Confidentiality of Alcohol and Drug Abuse Patient Records regulations: The Federal rules restrict any use of the information to criminally investigate or prosecute any alcohol or drug abuse patient.[facility] the event this information is protected by the Federal Confidentiality of Alcohol and Drug Abuse Patient Records regulations: The Federal rules restrict any use of the information to criminally investigate or prosecute any alcohol or drug abuse patient.[facility] the event this information is protected by the Federal Confidentiality of Alcohol and Drug Abuse Patient Records regulations: The Federal rules restrict any use of the information to criminally investigate or prosecute any alcohol or drug abuse patient.[facility] the event this information is protected by the Federal Confidentiality of Alcohol and Drug Abuse Patient Records regulations: The Federal rules restrict any use of the information to criminally investigate or prosecute any alcohol or drug abuse patient.[facility] the event this information is protected by the Federal Confidentiality of Alcohol and Drug Abuse Patient Records regulations: The Federal rules restrict any use of the information to criminally investigate or prosecute any alcohol or drug abuse patient.[facility] the event this information is protected by the Federal Confidentiality of Alcohol and Drug Abuse Patient Records regulations: The Federal rules restrict any use of the information to criminally investigate or prosecute any alcohol or drug abuse patient.[facility] the event this information is protected by the Federal Confidentiality of Alcohol and Drug Abuse Patient Records regulations: The Federal rules restrict any use of the information to criminally investigate or prosecute any alcohol or drug abuse patient.[facility] the event this information is protected by the Federal Confidentiality of Alcohol and Drug Abuse Patient Records regulations: The Federal rules restrict any use of the information to criminally investigate or prosecute any alcohol or drug abuse patient.[facility] the event this information is protected by the Federal Confidentiality of Alcohol and Drug Abuse Patient Records regulations: The Federal rules restrict any use of the information to criminally investigate or prosecute any alcohol or drug abuse patient.[facility] the event this information is protected by the Federal Confidentiality of Alcohol and Drug Abuse Patient Records regulations: The Federal rules restrict any use of the information to criminally investigate or prosecute any alcohol or drug abuse patient.[facility] Reason for Visit (unrecogniz ed section and content) Specialty Diagnoses / Procedures Referred By Contac t Referred To Contact Urogynecology / URO GYNECOLOGY Diagnoses bladder prolapse, occasional urethreal bleeding with urination Procedures NEW [facility] PATIENT Self Beverley Cortés MD [address] [address] Referral ID Status Reason Start Date Expiration Date Visits Re quested Visits Authorized [id number] Closed 09/20/2021 12/28/2021 1 1 Reason Comments Results Reason Comments Pessary Specialty Diagnoses / Procedures Referred By Contac t Referred To Contact Gynecology / URO GYNECOLOGY Diagnoses pessary fitting Procedures OFFICE/OUTPATIENT ESTABLISHED HIGH MDM 40-54 MIN EST [facility] PATIENT Les Griffin, ONEIL.DETONATOR MAKER [address] [place] [address] Les Griffin APRN.DETONATOR MAKER [address] [place] [address] Referral ID Status Reason Start Date Expiration Date Visits Re quested Visits Authorized [id number] Closed 09/29/2021 12/28/2021 1 1 Reason Comments Information Reason Comments UTI Specialty Diagnoses / Procedures Referred By Contac t Referred To Contact Urology / UROLOGY Diagnoses Straight cath specimen UA and culture Procedures OFFICE/OUTPATIENT EST PT MAY NOT REQ PHYS/QHP EST UROL Melanie Levy MD [address] [place] [address] Exchange, Nurse Urol [address] [place] [address] Referral ID Status Reason Start Date Expiration Date Visits Re quested Visits Authorized [id number] Closed 10/11/2021 06/30/2022 1 1 Reason Comments Results Reason Comments Gross Hematuria Specialty Diagnoses / Procedures Referred By Contact Referred To Contact Urogynecology / UROLOGY Diagnoses Recurrent UTI Procedures REFERRAL TO [facility] FINANCIAL COUNSELOR CYSTOURETHROSCOPY CYSTOSCOPY Melanie Levy MD [address] [place] [address] Beverley Cortés MD [address] [address] Referral ID Status Reason Start Date Expiration Date V isits Requested Visits Authorized [id number] Closed Financial Clearance Required - [employer] Payor 10/23/2021 06/30/2022 1 1 Reason Comments No Show Reason Comments Follow Up Prolapse UTI Specialty Diagnoses / Procedures Referred By Josh penn Referred To Contact Urogynecology / URO GYNECOLOGY Diagnoses bladder prolapse, occasional urethreal bleeding with urination Procedures NEW [facility] PATIENT Self Beverley Cortés MD [address] [address] Referral ID Status Reason Start Date Expiration Date V isits Requested Visits Authorized [id number] Authorized 09/20/2021 06/30/2022 99 99 Reason Comments Returning Patient's Call Reason Comments UTI Burning, frequency, blood in urine x 2 weeks Care Teams (unrecognized sec tion and content) Electric Serviceman Relationship Specialty Start Date End Date Melanie Levy MD [address] [facility] [address] [place] [address] PCP - General Family Practice 09/20/21 Electric Serviceman Relationship Specialty Start Date End Date Melanie Levy MD [address] [facility] [address] [place], [place] [id number] PCP - General Family Practice 09/20/21 Electric Serviceman Relationship Specialty Start Date End Date Melanie Levy MD [address] [facility] [address] [place], [place] [id number] PCP - General Family Practice 09/20/21 Electric Serviceman Relationship Specialty Start Date End Date Melanie Levy MD [address] [facility] [address] [place], [place] [id number] PCP - General Family Practice 09/20/21 Electric Serviceman Relationship Specialty Start Date End Date Melanie Levy MD [address] [place] [address] PCP - General Family Practice 09/20/21 Electric Serviceman Relationship Specialty Start Date End Date Melanie Levy MD [address] [place] [address] PCP - General Family Practice 09/20/21 Electric Serviceman Relationship Specialty Start Date End Date Melanie Levy MD [address] [place] [address] PCP - General Family Practice 09/20/21 Electric Serviceman Relationship Specialty Start Date End Date Melanie Levy MD [address] [place] [address] PCP - General Family Medicine 09/20/21 Electric Serviceman Relationship Specialty Start Date End Date Melanie Levy MD [address] [place] [address] PCP - General Family Medicine 09/20/21 Electric Serviceman Relationship Specialty Start Date End Date Melanie Levy MD [address] [place] [address] PCP - General Family Medicine 09/20/21 Electric Serviceman Relationship Specialty Start Date End Date Melanie Levy MD [address] [place] [address] PCP - General Family Medicine 09/20/21 FOR RECORDS PERTAINING TO PATIENTS WHO ARE OR HAVE BEEN ENROLLED IN A CHEMICAL DEPENDENCY/SUBSTANCEABUSE PROGRAM, SOME INFORMATION MAY BE OMITTED. This clinical summary was aggregated from multiple sources. Caution should be exercised in using it in the provision of clinical care. This summary normalizes information from multiple sources, and as a consequence, information in this document may materially change the coding, format and clinical context of patient data. In addition, data may be omitted in some cases. CLINICAL DECISIONS SHOULD BE BASED ON THE PRIMARY CLINICAL RECORDS. [facility]. provides no warranty or guarantee of the accuracy or completeness of information in this document.
--- NOTE | 2023-08-23 08:04 | AAAS_ITS ---
Reason For Study: AAA screening Aorta Measurements Aorta Doppler Measurements Proximal aorta measures1.46 x 1.46cm. in cross- Peak systolic flow velocities within the proximal sectional axis. aorta measure 74.1 cm/sec. Proximal aorta measures1.42cm. in longitudinal Peak systolic flow velocities within the mid aorta axis. measure 106.7 cm/sec. Mid aorta measures1.44 x 1.44cm. in cross- Peak systolic flow velocities within the distal sectional axis. aorta measure 104.9 cm/sec. Mid aorta measures1.43cm. in longitudinal axis. Distal aorta measures1.31 x 1.31cm. in cross- sectional axis. Distal aorta measures1.31cm. in longitudinal axis. Left Iliac Artery Left iliac artery measures 0.86 x 0.88 cm. in the cross-sectional axis. Left iliac artery measures 0.84 cm. in the longitudinal axis. Peak systolic velocity in the left iliac artery measures 99.5 cm/sec. Right Iliac Artery Right iliac artery measures 0.85 x 0.85 cm. in the cross-sectional axis. Right iliac artery measures 0.84 cm. in the longitudinal axis. Peak systolic velocity in the right iliac artery measures 103.1 cm/sec. Procedure Aorta IVC Iliac vasculature or bypass grafts 80242. Exam performed in department. VL/AAA Screening Interpretation Summary Maximal aortic diameter is 1.46 x 1.46 cm proximally. No evidence for abdominal aortic aneurysm. Left common iliac artery measures 0.86 x 0.88 cm diameter which is normal Right common artery measures 0.85 x 0.85 cm in diameter which is normal Ordering Physician: Javier Levy Referring Physician: Javier Levy Performed By: Lou Sapp RVT
== END | disposition home or self-care (01) ==
LOC: CVS 07:32
PROVIDERS: PCP Family Medicine; Referring Provider Family Medicine; Visit Provider Family Medicine
DX: Z13.6 Encounter for screening for cardiovascular disorders (principal)
CPT/HCPCS: 76706

== ENCOUNTER → 2023-09-05 | Outpatient (CLI) | payer MEDICARE, BC, SELFPAY ==
--- NOTE | 2023-09-05 14:29 | BD_ITS ---
STUDY: DUAL ENERGY X-RAY ABSORPTIOMETRY / DXA REASON FOR EXAM: Female, 63 years old. V780 TECHNIQUE: Bone Mineral Density (BMD) measurements of lumbar spine and right hip were obtained. COMPARISON: None. FINDINGS: Lumbar Spine (L1-L4): g/cm2 (0.784) / T-score (-2.3) / Z-score (-0.5) Findings are suggestive of osteopenia with a high fracture risk. Right Femur Total: g/cm2 (0.713) / T-score (-1.9) / Z-score (-0.6) Right Femoral Neck: g/cm2 (0.565) / T-score (-2.6) / Z-score (-1.0) BD/Dexa Bone Density Study IMPRESSION: The patient is considered osteoporotic as outlined below according to World [place] Organization (WHO) criteria with a high fracture risk. Reference Information: The T-score is the number of standard deviations above or below the standard which is normal for young adults at their peak bone mineral density. The World Health Organization (WHO) interprets the T-scores as follows: Above -1 Normal bone density Between -1 and -2.5 Osteopenia Equal to / or below -2.5 Osteoporosis As a practical clinical guideline, osteopenia may be graded as follows: Mild -1 through -1.5 Moderate -1.6 through -2.0 Severe -2.1 through -2.4 The Z-score is the number of standard deviations above or below age-matched controls. A Z-score of less than -1.5 would be considered abnormal. References: 1. NIH Osteoporosis and Related Bone Diseases www osteo.org 2. International Society for Clinical Densitometry www iscd.org 3. National Osteoporosis Foundation www nof.org Electronically Signed: Ken Quiroz MD at 9:35 EDT ,
--- NOTE | 2023-09-05 14:29 | BI_ITS ---
MAMMOGRAPHY - BILATERAL SCREENING 3-D TOMOSYNTHESIS REASON FOR EXAM: Female, 63 years old. SCREENING PERTINENT HISTORY: No significant family history. TECHNIQUE: 2-D mammograms and 3-D Tomosynthesis of the breast (s) were performed. CAD was performed. COMPARISON: 04/11/2017 FINDINGS: The breast composition is composed of scattered fibroglandular density. Scattered benign calcifications are seen. No dense spiculated masses or suspicious microcalcifications are identified. No architectural distortion is identified. There is no skin thickening or retraction. There has been no significant change since the prior study. BI/SCRN MAMM (CAD)W/INDIO BILAT IMPRESSION: No mammographic signs of malignancy. Routine yearly mammograms recommended. ASSESSMENT CATEGORY: BIRADS Category 1: Negative. A letter regarding these results will be sent to the patient by the facility within 30 days. FOLLOW UP RECOMMENDATION: Yearly follow up mammogram recommended. (A) Approximately 10% of breast cancers are not detected by mammography. A normal mammogram should not delay biopsy of a clinically suspicious abnormality. Electronically Signed: aMteusz Sewell MD at 15:55 EST ,
== END | disposition home or self-care (01) ==
LOC: OPBD 14:25
PROVIDERS: PCP Family Medicine; Referring Provider Family Medicine; Visit Provider Family Medicine
DX: Z12.31 Encounter for screening mammogram for malignant neoplasm of breast (principal); Z78.0 Asymptomatic menopausal state
CPT/HCPCS: 77063; 77067; 77080

== ENCOUNTER 2023-09-13 20:06 | Emergency (ER) | payer MEDICARE, BC, SELFPAY ==
[2023-09-13 20:07] VITALS: BP 170/84; PULSE 104; RESP 17; TEMP 36.3; O2SAT 97; BMI 27.6
[2023-09-13 20:12] VITALS: BP 170/84; PULSE 104; RESP 17; O2SAT 97
--- OUTSIDE RECORDS SUMMARY | 2023-09-13 21:40 | XMS RPT_ITS | CCD ---
Author Name Unknown Address [address] [place] [address] Organization [facility] Care Team Providers Care Business Analytics Manager Name Role Phone HEYDISALBADORALKA Unavailable Unavailable MUNJAPARA, VALJI Unavailable Unavailable MUNJAPARA, VALJI Unavailable Unavailable MUNJAPARA, VALJI Unavailable Unavailable Melanie Levy MD Primary Care Provider Melanie Levy MD Primary Care Provider Melanie Levy MD Primary Care Provider BEVERLEY CORTÉS Referring Unavailable BEVERLEY CORTÉS Attending Unavailable MELANIE LEVY Primary Care Unavailabl STEPHANIE Correia Referring Unavailable MELANIE LEVY Primary Care UnavailDENICE Keith Referring Unavailable MELANIE LEVY Primary Care UnavailMELANIE Monson Primary Care Unavailsean e Allergies Allergy Classification Reported Allergen(s) Allergy Type Date of Onset Reaction(s) Facility (17 sources) cyclobenzaprine; Translations: [CYCLOBENZAPRINE ] Drug Allergy 09-20-2021 Other: See Comments [facility] Medications Current Medications Medication Drug Class(es) Dates [...] Onset: 04-18-2022 Episodic Other aftercare (1 source) 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; Translations: [Type 2 [...] 18:32-0500 Body temperature 98.1 [degF] Kimmy Caal APRN.[facility] Work Phone: [facility] 05-28-2022 18:32-0500 Body weight 72.94 kg Kimmy Caal APRN.[facility] Work Phone: [facility] 05-28-2022 18:32-0500 Diastolic blood pressure 88 mm[Hg] Kimmy Cobb-Bassem HOPPERN.EMPLOYMENT CASE MANAGER Work Phone: [facility] 05-28-2022 18:32-0500 Heart rate 80 /min Kimmy Caal APRN.EMPLOYMENT CASE MANAGER Work Phone: [facility] 05-28-2022 18:32-0500 Respiratory rate 20 /min Kimmy Caal APRN.EMPLOYMENT CASE MANAGER Work Phone: [facility] 05-28-2022 18:32-0500 SaO2% (BldA) [Mass fraction] 94 % Kimmy Caal APRN.EMPLOYMENT CASE MANAGER Work Phone: [facility] 05-28-2022 18:32-0500 Systolic blood pressure 138 mm[Hg] Kimmy Cobb-Bassem RIGGS.EMPLOYMENT CASE MANAGER Work Phone: [facility] 04-18-2022 08:58-0400 Body height 157.5 cm Beverley Milana MD Work Phone: [facility] 04-18-2022 08:58-0400 Body weight 70.31 kg Beverley Cortés MD Work Phone: [facility] 11-03-2021 10:29-0400 Body height 157.5 cm Beverley Cortés MD Work Phone: [facility] 11-03-2021 10:290400 Body weight 66.68 kg Beverley Cortés MD Work Phone: [facility] 09-29-2021 10:26-0400 Body height 157.5 cm Les Griffin FORESTRY CONTRACTOR.EMPLOYMENT CASE MANAGER Work Phone: [facility] 09-29-2021 10:26-0400 Body weight 66.68 kg Les Griffin FORESTRY CONTRACTOR.EMPLOYMENT CASE MANAGER Work Phone: [facility] 09-29-2021 10:26-0400 Diastolic blood pressure 80 mm[Hg] Les Griffin FORESTRY CONTRACTOR.EMPLOYMENT CASE MANAGER Work Phone: [facility] 09-29-2021 10:26-0400 Systolic blood pressure 142 mm[Hg] Les Griffin FORESTRY CONTRACTOR.EMPLOYMENT CASE MANAGER Work Phone: [facility] 09-20-2021 13:09-0400 Body height 157.5 cm Beverley Cortés MD Work Phone: [facility] 09-20-2021 13:09-0400 Body weight 66.68 kg Beverley Cortés MD Work Phone: [facility] 09-20-2021 13:09-0400 Diastolic blood pressure 72 mm[Hg] Beverley Cortés MD Work Phone: [facility] 09-20-2021 13:09-0400 Systolic blood pressure 134 mm[Hg] Beverley Cortés MD Work Phone: [facility] Encounters Encounter Date Encounter Type Care Provider Facility Start: 06-07-2023 End: 06-07-2023 ambulatory MELANIE LEVY Facility:[facility] Start: 03-25-2023 Encounter for other preprocedural examination BEVERLEY CORTÉS [facility] Start: 03-25-2023 End: 03-26-2023 ambulatory DENICE TERRELL Facility:[facility] Start: 03-25-2023 End: 03-26-2023 ambulatory STEPHANIE DICKINSON Facility:[facility] Start: 03-25-2023 Encounter for other preprocedural examination BEVERLEY MILANA [facility] Start: 05-30-2022 Telephone encounter Kimmy Wright APRN.CNP Work Phone: [facility] Procedures Date Procedure Procedure Detail Performing Clinician Start: 03-25-2023 Antibody screen BEVERLEY T RAHUL Plan of Treatment Date Care Activity Detail Author Start: 09-11-2026 HPV TESTING HPV TESTING [facility] Start: 09-11-2026 PAP TESTING PAP TESTING [facility] Start: 05-28-2022 End: 07-28-2022 Bacteria identified in Urine by Culture [facility] Work Phone: Payers Date Payer Category Payer Medicare [id number] 2023 Medicare [id number] 2021 Unknown [employer] PPO [id number] 2021-Present [phone] [address] [place] [address] PPO [id number] 2021 Unknown [id number] 2020 Unknown [employer] PPO OOS [id number] 2020-Present [phone] [address] [place] [address] PPO [id number] 2020 Unknown [id number] 2008 Unknown Social History Date Type Detail Facility Start: 11-15-2015 End: 04-18-2022 Tobacco smoking status NHIS Ex-smoker [facility] End: 01-02-2013 History of tobacco use Current smoker [facility] Start: 11-15-2015 End: 04-18-2022 Cigarettes smoked current (pack per day) - Reported 1 [facility] Start: 11-15-2015 End: 04-18-2022 Tobacco use and exposure Smokeless tobacco non-user [facility] Start: 09-20-2021 End: 05-28-2022 Alcohol intake Current non-drinker of alcohol (finding) [facility] Start: 1960 Sex Assigned At Not on file [facility] Start: 09-01-2021 End: 11-03-2021 Exposure to SARS-CoV-2 (event) Not sure [facility] End: 01-02-2013 History of tobacco use Cigarette Smoker [facility] Clinical Notes 11-15-2015 to 04-01-2023 Telephone Encounter - Kimmy Caal APRN.CNP - 05/31/2022 9:29 AM ESTTelephone Encounter - Chelsea Nails RN - 05/31/2022 9:16 AM James Caal APRN.EMPLOYMENT CASE MANAGER - 05/28/2022 6:45 PM EST Note Date & Type Note Facility 04-01-2023 Note HNO ID: [id number] Author: Dorothea Swift MD Service: Obstetrics Author Type: Resident Type: Progress Notes Filed: 04/01/2023 5:21 PM Note Text: Up to evaluate patient. Per HAT SPRAYER, patient with continued pain, hypertension and apnea. [...] control Will continue to monitor Please page [phone] for any further questions SIGNATURE: Dorothea Swift MD PATIENT NAME: Reji Oliva DATE: April 01, 2023 TIME: 5:21 PM PAGER/CONTACT #: [phone] [facility] 04-01-2023 Note HNO ID: [id number] Author: Rodrigo Mariee APRN.CRNA Service: Anesthesiology Author Type: Nurse Credit Risk Analytics Manager Type: Anesthesia Procedure Notes Filed: 04/01/2023 12:44 PM Note Text: ANESTHESIOLOGY PROCEDURE NOTE Airway General Information Procedure Start Time/Medication Administration: 04/01/2023 12:32 PM Patient location during procedure: OR Timeout Performed Pre-procedure: timeout performed Consent Obtained: Yes Patient identity confirmed: arm band Staffing SNUFF BOX FINISHER: Rodrigo Mariee APRN.SNUFF BOX FINISHER Performed by: SANTOS Indications and Patient Condition [...] April 01, 2023 TIME: 12:43 PM CSN: [id number] [facility] 03-27-2023 Note HNO ID: [id number] Author: Long Prakash PA Service: Anesthesiology Author Type: Physician Political Science Instructor Type: Progress Notes Filed: 03/27/2023 1:23 PM Note Text: Summary: Anesthesia Red dot f/u I reviewed the patient red dot concerns with Dr. Goode who stated that the patient is okay to proceed with the procedure without the need of an ECHO prior. [facility] 03-25-2023 Note HNO ID: [id number] Author: Nelly Mak APRN.CNP Service: Nursing Author [...] stopped smoking 12/2012, 25 total pack years. [facility] 05-31-2022 Miscellaneous Notes Noted. Patient is currently [...] Kimmy Caal CNP documented in this encounter [facility] 05-28-2022 History of Presen t illness Narrative [...] Kimmy Caal APRN.CNP documented in this encounter [facility] 05-28-2022 Instructions Kimmy Caal APRN.CNP - 05/28/2022 [...] Discussed expected course of illness Kimmy Caal APRN.EMPLOYMENT CASE MANAGER [facility] PATIENT INFO BLADDER INFECTION OVERVIEW [...] have an infection. documented in this encounter [facility] 05-28-2022 Miscellaneous Notes Spoke with patient. Gave [...] Yue Vuong CMA documented in this encounter [facility] 05-11-2022 Miscellaneous Notes Pt left a message on the clinical voicemail, asking for a return call. I tried to reach pt and was unable to leave a message as her voicemail was full. Not sure what pt needed. Will await a return call from pt. Darien Ozuna Cma documented in this encounter [facility] 10-19-2022 Note HNO ID: [id number] Author: Beverley Cortés MD Service: ? Author [...] - CT urogram scheduled 11/08/21 - CYTOLOGY NON-VIDEO SOFTWARE ENGINEER - CONSULT TO UROLOGY; Future 2. Bladder [...] Abnormal Vaginal Discharge: yes, white and thin VIDEO SOFTWARE ENGINEER HISTORY: Last pap: Date:09/11/21 NIL HPV neg; Last mammogram: Her last mammogram was 04/11/17 negative. She has no history of an abnormal mammogram LMP: No LMP recorded. Patient is postmenopausal.; Menopause post: Menstrual history: NA; Deliveries: C/Sec, I have confirmed and edited as necessary, the PFSH obtained by others. Beverley Cortés MD Roll Mechanic offered: Patient accepts, visit chaperoned by Bart [...] Pt would prefer to see me at [facility] in the new year to revisit surgery. Scheduling number given and she will check with her insurance. - If [facility] is not covered, then she will plan for follow up with Les Griffin NP in 3 months to review A1C and refer to other [facility] urogyn surgeon. 2. Cystocele, midline - As [...] Level: 4 - Moderate Beverley Cortés MD [facility] 04-18-2022 Instructions Beverley Cortés MD - 04/18/2022 9:32 AM EDT Schedule appointment with urology Follow up with Les Griffin NP in 3 months [facility] scheduling number [phone] documented in this encounter [facility] 04-18-2022 History of Presen t illness Narrative [...] - CT urogram scheduled 11/08/21 - CYTOLOGY NON-VIDEO SOFTWARE ENGINEER - CONSULT TO UROLOGY; Future 2. Bladder [...] Abnormal Vaginal Discharge: yes, white and thin VIDEO SOFTWARE ENGINEER HISTORY: Last pap: Date:09/11/21 NIL HPV neg; Last mammogram: Her last mammogram was 04/11/17 negative. She has no history of an abnormal mammogram LMP: No LMP recorded. Patient is postmenopausal.; Menopause post: Menstrual history: NA; Deliveries: C/Sec, I have confirmed and edited as necessary, the PFSH obtained by others. Beverley Cortés MD Roll Mechanic offered: Patient accepts, visit chaperoned by Bart [...] Pt would prefer to see me at [facility] in the new year to revisit surgery. Scheduling number given and she will check with her insurance. - If [facility] is not covered, then she will plan for follow up with Les Griffin NP in 3 months to review A1C and refer to other [facility] urogyn surgeon. 2. Cystocele, midline - As [...] Beverley Cortés MD documented in this encounter [facility] 11-16-2021 Miscellaneous Notes Patient has been contacted via: Phone To reschedule appointment with Provider: Arnaldo Mayo Date of appointment: 11/16/21 Reason: No Show Attempt: First Attempt Patient call back number given: [phone] Martha Lerner' documented in this encounter [facility] 11-10-2021 Miscellaneous Notes Patient informed. Krishna Restrepo Ma Please inform pt her urine showed atypical urothelial cells. Keep upcoming appointment with Dr. Mayo as scheduled. Beverley Cortés MD documented in this encounter [facility] 11-03-2021 Instructions Beverley Cortés MD - 11/03/2021 [...] or weekends, call: or . Ask the shoelace tipping machine operator to page the VIDEO SOFTWARE ENGINEER sponge buffer.' [facility] [place] Patients ONLY: After 4:30 PM or on holidays or weekends, call and you will be connected to the answering service/physician sponge buffer. Please DO NOT use MyChart for procedure concerns. documented in this encounter [facility] 11-03-2021 History of Presen t illness Narrative [...] procedure well. Medications: None given, currently taking [facility] data reviewed today in Care Everywhere: [...] - CT urogram scheduled 11/08/21 - CYTOLOGY NON-VIDEO SOFTWARE ENGINEER - CONSULT TO UROLOGY; Future 2. Bladder wall thickening - CONSULT TO UROLOGY; Future 3. Abnormal cystoscopy - CONSULT TO UROLOGY; Future Beverley Cortés MD documented in this encounter [facility] 10-16-2021 Miscellaneous Notes Spoke with patient regarding hematuria on recent UA. She has a history of gross hematuria. We reviewed the work-up at length including cystoscopy, CT urogram and urine cytology. Advised patient I will place orders and we will call her to schedule. She understands. Les Griffin APRN.EMPLOYMENT CASE MANAGER documented in this encounter [facility] 10-12-2021 Nurse Note Patient seen today for a straight cath for specimens. Straight cath performed using sterile technique with a 12 armenian catheter. Patient tolerated well and specimens prepared for lab analysis. Savanna Truong RN documented in this encounter [facility] 10-09-2021 Miscellaneous Notes Called left message for results,. Maria Elena Burleson Cma Advise patient urine culture is contaminated. If she is still experiencing UTI symptoms, she can submit a new specimen. Les Griffin APRN.CNP documented in this encounter [facility] 09-29-2021 Miscellaneous Notes Patient was hit for a prosthetic today with Uro Gynecology. She was calling to inform her provider she really struggled to remove it herself. She will follow up with provider when the office is open. documented in this encounter [facility] 09-29-2021 Instructions Les Griffin APRN.CNP - 09/29/2021 10:51 AM EDT To call with pain/discomfort, vaginal bleeding or difficulty emptying bladder or bowels. Follow-up in 3 months. documented in this encounter [facility] 09-29-2021 History of Presen t illness Narrative Female Pelvic Medicine & Reconstructive Surgery Follow-Up Reji Oliva is a 61 year old female, who presents for a pessary fitting. History since last visit: Was fit for pessary with Dr. Vasquez, states the pessary fell out within 1 day. Here today for refitting. Abnormal Bleeding: no Pain: yes, related to prolapse. Abnormal Vaginal Discharge: no VIDEO SOFTWARE ENGINEER HISTORY: Last pap: Date:couple weeks ago; Last mammogram: She has never had a mammogram LMP: No LMP recorded. Patient is postmenopausal.; Menopause no: Menstrual history: NA; Deliveries: {OB TYPE OF DELIVERY: vaginal and I have confirmed and edited as necessary, the PFSH obtained by others. Les Griffin APRN.CNP Roll Mechanic offered: Patient accepts, visit chaperoned by Nirali [...] Les Griffin APRN.CNP documented in this encounter [facility] 09-25-2021 Miscellaneous Notes Patient notified of Suzy [...] culture in approximately 2 weeks. Les Griffin APRN.EMPLOYMENT CASE MANAGER documented in this encounter [facility] 09-20-2021 Instructions Beverley Cortés MD - 09/20/2021 1:50 PM EDT Schedule pessary fitting with Les Griffin NP We will call you with urine lab results and next steps documented in this encounter [facility] 09-20-2021 History of Presen t illness Narrative [...] and squamous epithelium. Medical and Symptom History: VIDEO SOFTWARE ENGINEER HISTORY: Last Pap: Date:09/11/21 NIL HPV neg; [...] Alcohol use: No Drug use: No Occupation: [employer] Status: REVIEW OF SYSTEMS General: Negative [...] ROS obtained by others. Beverley Cortés MD Roll Mechanic offered: Patient accepts, visit chaperoned by Adonis [...] Wall - Rectocele Stage II Cervix / [place] - Stage lll / lV prolapse POP-Q: [...] Beverley Cortés MD documented in this encounter [facility] documented as of this encounter (statuses as of 09/20/2021) [address]17-2016 History of Past illness Narrative* Problem Noted Date Resolved Date Vulval lesion 11/15/2015 02/03/2016 documented as of this encounter (statuses as of 09/25/2021) [facility] History of Past illness Narrative* Problem Noted Date Resolved Date Vulval lesion 11/15/2015 02/03/2016 documented as of this encounter (statuses as of 09/29/2021) [address]17[address]2016 History of Past illness Narrative* Problem Noted Date Resolved Date Vulval lesion 11/15/2015 02/03/2016 documented as of this encounter (statuses as of 09/30/2021) [address]17-2016 History of Past illness Narrative* Problem Noted Date Resolved Date Vulval lesion 11/15/2015 02/03/2016 documented as of this encounter (statuses as of 10/09/2021) [address]17-2016 History of Past illness Narrative* Problem Noted Date Resolved Date Vulval lesion 11/15/2015 02/03/2016 documented as of this encounter (statuses as of 10/12/2021) [address]17-2016 History of Past illness Narrative* Problem Noted Date Resolved Date Vulval lesion 11/15/2015 02/03/2016 documented as of this encounter (statuses as of 10/16/2021) [facility] History of Past illness Narrative* Problem Noted Date Resolved Date Vulval lesion 11/15/2015 02/03/2016 documented as of this encounter (statuses as of 11/03/2021) [address]-2016 History of Past illness Narrative* Problem Noted Date Resolved Date Vulval lesion 11/15/2015 02/03/2016 documented as of this encounter (statuses as of 11/10/2021) [address]2016 History of Past illness Narrative* Problem Noted Date Resolved Date Vulval lesion 11/15/2015 02/03/2016 documented as of this encounter (statuses as of 11/16/2021) [address]17[address]2016 History of Past illness Narrative* Problem Noted Date Resolved Date Vulval lesion 11/15/2015 02/03/2016 documented as of this encounter (statuses as of 04/18/2022) [address]2016 History of Past illness Narrative* Problem Noted Date Resolved Date Vulval lesion 11/15/2015 02/03/2016 documented as of this encounter (statuses as of 05/11/2022) [facility] History of Past illness Narrative* Problem Noted Date Resolved Date Vulval lesion 11/15/2015 02/03/2016 documented as of this encounter (statuses as of 05/28/2022) [facility] History of Past illness Narrative* Problem Noted Date Resolved Date Vulval lesion 11/15/2015 02/03/2016 documented as of this encounter (statuses as of 05/28/2022) [facility] History of Past illness Narrative* Problem Noted Date Resolved Date Vulval lesion 11/15/2015 02/03/2016 documented as of this encounter (statuses as of 06/20/2022) [facility] note* Diagnosis Gross hematuria- Primary Complete uterovaginal prolapse Uterovaginal prolapse, complete Cystocele, midline Rectocele Poorly controlled diabetes mellitus (HCC) Type II or unspecified type diabetes mellitus without mention of complication, not stated as uncontrolled [facility] Diagnosis Fungus present in urine- Primary Other and unspecified mycoses [facility] Diagnosis Encounter for fitting and adjustment of pessary- Primary Fitting and adjustment of other device Complete uterovaginal prolapse Uterovaginal prolapse, complete Cystocele, midline Rectocele [facility] Diagnosis Abnormal urine Other nonspecific finding on examination of urine Urinary tract infection without hematuria, site unspecified [facility] Diagnosis Gross hematuria- Primary [facility] Diagnosis Gross hematuria- Primary Bladder wall thickening Other specified disorders of bladder Abnormal cystoscopy Other nonspecific abnormal finding [facility] Diagnosis Complete uterovaginal prolapse- Primary Uterovaginal prolapse, complete Cystocele, midline Rectocele Poorly controlled diabetes mellitus (HCC) Type II or unspecified type diabetes mellitus without mention of complication, not stated as uncontrolled Gross hematuria Bladder wall thickening Other specified disorders of bladder Abnormal cystoscopy Other nonspecific abnormal finding Acute cystitis without hematuria Acute cystitis [facility] Diagnosis UTI symptoms- Primary Other symptoms involving urinary system [facility] Urinary frequency- Primary documented in this encounter [facility] Summary Purpose Family History No Family History Records FoundNo Family History Records FoundNo Family History Records FoundNo Family History Records FoundNo Family History Records Found Advance Directives No Advanced Directives Records FoundDocuments on File Type Date Recorded Patient Boiling Tub Operator Expl anation Advance Directive(s) 01/17/2016 6:16 AM Advance Directive(s) 12/12/2015 12:16 PM Documents on File Type Date Recorded Patient Boiling Tub Operator Expl anation Advance Directive(s) 01/17/2016 6:16 AM Advance Directive(s) 12/12/2015 12:16 PM Reason for Referral Specialty Diagnoses / Procedures Referred By Josh penn Referred To Contact CT IMAGING Diagnoses Gross hematuria Procedures CT UROGRAM WO/W IVCON CT ABD & PELVIS W/O CONTRST 1+ BODY Les Garcia, FORESTRY CONTRACTOR.EMPLOYMENT CASE MANAGER [address] [place] [address] Ct Imaging Referral ID Status Reason Start Date Expiration Date Visits Requested Visits Authorized [id number] Pending Review Auto-Generat ed Referral 10/16/2021 11/15/2022 1 1 Specialty Diagnoses / Procedures Referred By Josh penn Referred To Contact Urology Diagnoses Gross hematuria Bladder wall thickening Abnormal cystoscopy Procedures CONSULT TO UROLOGY OFFICE/OUTPATIENT [facility] 60-74 MINUTES Beverley Cortés MD [address] [facility] [address] [place] [address] Referral ID Status Reason Start Date Expiration Date Visits Requested Visits Authorized [id number] Pending Review PCP Requested Referral 11/03/2021 11/03/2022 1 1 Referral ID Status Reason Start Date Expiration Date Visits Requested Visits Authorized [id number] Pending Review PCP Requested Referral 04/18/2023 1 [...] DATE CREATED AUTHOR AUTHOR'S ORGANIZ ATION 04/08/2018 [facility] DATE CREATED AUTHOR AUTHOR'S ORGANIZ ATION 04/14/2023 [facility] DATE CREATED AUTHOR AUTHOR'S ORGANIZ ATION 06/09/2023 [facility] Source Comments (unrecognize d section and content) In the event this informatio n is protected by the Federal Confidentiality of Alcohol and Drug Abuse Patient Records regulations: The Federal rules restrict any use of the information to criminally investigate or prosecute any alcohol or drug abuse patient.[facility] the event this information is protected by the Federal Confidentiality of Alcohol and Drug Abuse Patient Records regulations: The Federal rules restrict any use of the information to criminally investigate or prosecute any alcohol or drug abuse patient.[facility] the event this information is protected by the Federal Confidentiality of Alcohol and Drug Abuse Patient Records regulations: The Federal rules restrict any use of the information to criminally investigate or prosecute any alcohol or drug abuse patient.[facility] the event this information is protected by the Federal Confidentiality of Alcohol and Drug Abuse Patient Records regulations: The Federal rules restrict any use of the information to criminally investigate or prosecute any alcohol or drug abuse patient.[facility] the event this information is protected by the Federal Confidentiality of Alcohol and Drug Abuse Patient Records regulations: The Federal rules restrict any use of the information to criminally investigate or prosecute any alcohol or drug abuse patient.[facility] the event this information is protected by the Federal Confidentiality of Alcohol and Drug Abuse Patient Records regulations: The Federal rules restrict any use of the information to criminally investigate or prosecute any alcohol or drug abuse patient.[facility]ima[facility] the event this information is protected by the Federal Confidentiality of Alcohol and Drug Abuse Patient Records regulations: The Federal rules restrict any use of the information to criminally investigate or prosecute any alcohol or drug abuse patient.[facility] the event this information is protected by the Federal Confidentiality of Alcohol and Drug Abuse Patient Records regulations: The Federal rules restrict any use of the information to criminally investigate or prosecute any alcohol or drug abuse patient.[facility] the event this information is protected by the Federal Confidentiality of Alcohol and Drug Abuse Patient Records regulations: The Federal rules restrict any use of the information to criminally investigate or prosecute any alcohol or drug abuse patient.[facility]ima[facility] the event this information is protected by the Federal Confidentiality of Alcohol and Drug Abuse Patient Records regulations: The Federal rules restrict any use of the information to criminally investigate or prosecute any alcohol or drug abuse patient.[facility]ima[facility] the event this information is protected by the Federal Confidentiality of Alcohol and Drug Abuse Patient Records regulations: The Federal rules restrict any use of the information to criminally investigate or prosecute any alcohol or drug abuse patient.[facility] the event this information is protected by the Federal Confidentiality of Alcohol and Drug Abuse Patient Records regulations: The Federal rules restrict any use of the information to criminally investigate or prosecute any alcohol or drug abuse patient.[facility]ima[facility] the event this information is protected by the Federal Confidentiality of Alcohol and Drug Abuse Patient Records regulations: The Federal rules restrict any use of the information to criminally investigate or prosecute any alcohol or drug abuse patient.[facility]ima[facility] the event this information is protected by the Federal Confidentiality of Alcohol and Drug Abuse Patient Records regulations: The Federal rules restrict any use of the information to criminally investigate or prosecute any alcohol or drug abuse patient.[facility] the event this information is protected by the Federal Confidentiality of Alcohol and Drug Abuse Patient Records regulations: The Federal rules restrict any use of the information to criminally investigate or prosecute any alcohol or drug abuse patient.[facility] Reason for Visit (unrecogniz ed section and content) Specialty Diagnoses / Procedures Referred By Contac t Referred To Contact Urogynecology / URO GYNECOLOGY Diagnoses bladder prolapse, occasional urethreal bleeding with urination Procedures NEW [facility] PATIENT Self Beverley Cortés MD [address] [address] Referral ID Status Reason Start Date Expiration Date Visits Re quested Visits Authorized [id number] Closed 09/20/2021 12/28/2021 1 1 Reason Comments Results Reason Comments Pessary Specialty Diagnoses / Procedures Referred By Contac t Referred To Contact Gynecology / URO GYNECOLOGY Diagnoses pessary fitting Procedures OFFICE/OUTPATIENT ESTABLISHED HIGH MDM 40-54 MIN EST [facility] PATIENT Les Griffin, [employer].EMPLOYMENT CASE MANAGER [address] [place] [address] Les Griffin APRN.EMPLOYMENT CASE MANAGER [address] [place] [address] Referral ID Status Reason Start Date Expiration Date Visits Re quested Visits Authorized [id number] Closed 09/29/2021 12/28/2021 1 1 Reason Comments Information Reason Comments UTI Specialty Diagnoses / Procedures Referred By Contac t Referred To Contact Urology / UROLOGY Diagnoses Straight cath specimen UA and culture Procedures OFFICE/OUTPATIENT EST PT MAY NOT REQ PHYS/QHP EST UROL Melanie Levy MD [address] [place] [address] Exchange, Nurse Urol [address] [place] [address] Referral ID Status Reason Start Date Expiration Date Visits Re quested Visits Authorized [id number] Closed 10/11/2021 06/30/2022 1 1 Reason Comments Results Reason Comments Gross Hematuria Specialty Diagnoses / Procedures Referred By Contact Referred To Contact Urogynecology / UROLOGY Diagnoses Recurrent UTI Procedures REFERRAL TO [facility] FINANCIAL COUNSELOR CYSTOURETHROSCOPY CYSTOSCOPY Melanie Levy MD [address] [place] [address] Beverley Cortés MD [address] [address] Referral ID Status Reason Start Date Expiration Date V isits Requested Visits Authorized [id number] Closed Financial Clearance Required - [employer] 10/23/2021 06/30/2022 1 1 Reason Comments No Show Reason Comments Follow Up Prolapse UTI Specialty Diagnoses / Procedures Referred By Josh penn Referred To Contact Urogynecology / URO GYNECOLOGY Diagnoses bladder prolapse, occasional urethreal bleeding with urination Procedures NEW [facility] PATIENT Self Beverley Cortés MD [address] [address] Referral ID Status Reason Start Date Expiration Date V isits Requested Visits Authorized [id number] Authorized 09/20/2021 06/30/2022 99 99 Reason Comments Returning Patient's Call Reason Comments UTI Burning, frequency, blood in urine x 2 weeks Care Teams (unrecognized sec tion and content) Business Analytics Manager Relationship Specialty Start Date End Date Melanie Levy MD [address] [facility] [address] [place] [address] PCP - General Family Practice 09/20/21 Business Analytics Manager Relationship Specialty Start Date End Date Melanie Levy MD [address] [facility] [address] [place], [place] [id number] PCP - General Family Practice 09/20/21 Business Analytics Manager Relationship Specialty Start Date End Date Melanie Levy MD [address] [facility] [address] [place], [place] [id number] PCP - General Family Practice 09/20/21 Business Analytics Manager Relationship Specialty Start Date End Date Melanie Levy MD [address] [facility] [address] [place], [place] [id number] PCP - General Family Practice 09/20/21 Business Analytics Manager Relationship Specialty Start Date End Date Melanie Levy MD [address] [place] [address] PCP - General Family Practice 09/20/21 Business Analytics Manager Relationship Specialty Start Date End Date Melanie Levy MD [address] [place] [address] PCP - General Family Practice 09/20/21 Business Analytics Manager Relationship Specialty Start Date End Date Melanie Levy MD [address] [place] [address] PCP - General Family Practice 09/20/21 Business Analytics Manager Relationship Specialty Start Date End Date Melanie Levy MD [address] [place] [address] PCP - General Family Medicine 09/20/21 Business Analytics Manager Relationship Specialty Start Date End Date Melanie Levy MD [address] [place] [address] PCP - General Family Medicine 09/20/21 Business Analytics Manager Relationship Specialty Start Date End Date Melanie Levy MD [address] [place] [address] PCP - General Family Medicine 09/20/21 Business Analytics Manager Relationship Specialty Start Date End Date Melanie Levy MD [address] [place] [address] PCP - General Family Medicine 09/20/21 FOR [...] BE BASED ON THE PRIMARY CLINICAL RECORDS. [facility] [employer] [facility]. provides no warranty or guarantee of the accuracy or completeness of information in this document.
[2023-09-13 22:12] VITALS: BP 176/98; PULSE 89; RESP 16; O2SAT 94
[2023-09-13] MEDS: diazePAM 5 MG Tablet 2.5 MG PO (22:34)
[2023-09-13] MEDS: Ondansetron 4 MG/2 ML Vial IV (22:34)
[2023-09-13] MEDS: Ketorolac 15 MG/ML Vial IV (22:34)
[2023-09-13] MEDS: Morphine 4 MG/ML Syringe IV (22:35)
--- NOTE | 2023-09-13 22:49 | EX.ED.DYSGE1 ---
HPI History of Present Illness Chief Complaint: Other, Pain/Inj Detail of Chief Complaint: Initially posterior right-sided neck pain now anterior posterior left-sided Informant: patient Onset/Context/Timing Onset: Days Context: Sudden Onset Timing: Continuous and Waxes and wanes Quality: Pain Location: Neck Current Severity: Mild Maximum Severity: Severe Worsened by: Any type of movement Relieved by: Nothing Associated Symptoms Associated Symptoms: No other symptoms Narrative Narrative: Patient is a 63-year-old woman with history of hyperlipidemia, type 2 diabetes, osteoarthritis, GI bleed, and hypertension. She presents with neck pain that initially was on the right side now the pain is worse on the left and is both anterior and posterior on the left. It was initially posterior on the right. Nothing makes it better. She was prescribed a yellow pill by Dr. Zelaya. She does not know the shape or milligrams. Asked if it was Flexeril pills she says it was not because she has allergic reaction to Flexeril. Patient denies fever, chills night sweats. Denies paresthesia, anesthesia or motor weakness upper or lower extremity. She has had no recent dental procedure. She denies cardiac or respiratory symptoms. Prior similar symptoms: No Recent Illness/Hospitalization: No PFSH PFSH Medical History Acute anemia Benign essential hypertension Diabetes Diabetes mellitus GIB (gastrointestinal bleeding) H/O transfusion of whole blood Hyperlipidemia Hypertension Hypokalemia Liver disease Mixed hyperlipidemia Neuropathy Noncompliance with diabetes treatment Osteoarthritis (arthritis due to wear and tear of joints) Polyneuropathy due to type 2 diabetes mellitus Skin cancer Vitamin D deficiency Home Medications metoprolol succinate 50 mg tablet,extended release 24 hr 50 mg PO DAILY heart 30 days #30 tabs 07/12/18 [History Last Taken 04/13/20] omega-3 acid ethyl esters 1 gram capsule 2 cap PO DAILY supplement 05/08/19 [History Last Taken 02/06/20] omeprazole 40 mg capsule,delayed release 40 mg PO DAILY gerd 05/08/19 [History Last Taken 04/13/20] cholecalciferol (vitamin D3) 50 mcg (2,000 unit) capsule 2,000 unit PO DAILY vitamin 02/06/20 [History Last Taken 04/13/20] rosuvastatin 20 mg tablet 20 mg PO DAILY cholesterol 02/06/20 [History Last Taken 04/13/20] insulin glargine 100 unit/mL subcutaneous solution 40 unit SQ QHS DM 04/14/20 [History Last Taken 04/13/20] metformin 500 mg tablet,extended release 24 hr 500 mg PO DAILY dm 04/14/20 [History Last Taken 04/13/20] lisinopril 20 mg-hydrochlorothiazide 25 mg tablet 1 tab PO DAILY 04/21/20 [History Last Taken Unknown] insulin lispro 100 unit/mL subcutaneous pen (Humalog KwikPen (U-100) Insulin) ml subcut 10/19/22 [History Last Taken Unknown] diazepam 2 mg tablet (Valium) 2 mg PO TID PRN muscle spasm #9 tabs 09/14/23 [Rx Last Taken Unknown] hydrocodone-acetaminophen 5-325mg 5mg-325mg 1 tab PO Q6H PRN PRN Pain 3 days #10 TABLETS 09/14/23 [Rx Last Taken Unknown] naproxen 500 mg tablet 500 mg PO BID #10 tabs 09/14/23 [Rx Last Taken Unknown] Allergy/AdvReac Type Severity Reaction Status Date / Time cyclobenzaprine AdvReac other Verified 09/13/23 20:09 [From Flexeril] Family History Father Arthritis Diabetes Myocardial infarction, Onset Age: 63 Heart disease Hypertension Sister Arthritis Diabetes Brother Diabetes Mental disorder Mother Hypertension Migraines Cerebral hemorrhage Surgical History H/O: Hx of colonoscopy Hx of rectal sphincterotomy Status post surgical removal of malignant neoplasm of skin Social History Smoking Status: Former smoker alcohol intake: never substance use type: does not use caffeine: Yes what type of physical activity do you participate in: none frequency: does not exercise ROS ROS ED Constitutional Constitutional ED: Denies chills, fever(s), subjective, sweats or weight loss Eyes Eyes: Denies blurry vision, change in vision or diplopia ENT ENT ED: Denies ear pain or rhinorrhea Cardiovascular Cardiovascular: Denies chest pain, orthopnea, palpitations, paroxysmal nocturnal dyspnea or racing heartbeat Respiratory/Chest Respiratory/Chest: Denies cough, dyspnea, dyspnea on exertion, orthopnea or paroxysmal nocturnal dyspnea Gastrointestinal Gastrointestinal: Denies abdominal pain, melena, nausea or vomiting Genitourinary Genitourinary ED: Denies dysuria, hematuria or urinary frequency Musculoskeletal Musculoskeletal: Denies arthralgias, back pain or myalgias Integumentary Denies rash Neurologic Neurologic: Denies headache(s), paresthesias or weakness Psychiatric Psychiatric: Denies anxiety or depression Endocrine Endocrinology: Denies cold intolerance or heat intolerance Hematologic/Lymphatic Hematologic/Lymphatic: Reports systems reviewed and no addt'l complaints, except as documented EXAM Physical Exam Const Vital Signs: 09/13/23 20:07 09/13/23 20:12 09/13/23 20:31 Temperature 97.4 F L Temperature Source Temporal Pulse Rate 104 H 104 H Respiratory Rate 17 17 Respiratory Effort Normal Respiratory Pattern Normal Blood Pressure 170/84 H 170/84 H Blood Pressure Mean 112 112 Pulse Ox 97 97 Oxygen Delivery Method Room Air Room Air 09/13/23 22:12 Temperature Temperature Source Pulse Rate 89 Respiratory Rate 16 Respiratory Effort Respiratory Pattern Blood Pressure 176/98 H Blood Pressure Mean 124 Pulse Ox 94 Oxygen Delivery Method Room Air Positive well nourished and well developed General Appearance ED: well developed and NAD; Negative for cyanotic, diaphoretic or pallor HEENT Reports moist mucous membranes HEENT Narrative: Head atraumatic normocephalic. Patient has posterior reproducible neck pain. There is also significant pain trapezius region on the left. Eyes PERRL and EOMs intact bilaterally General Eye ED: Negative for pale conjunctiva or scleral icterus Neck no lymphadenopathy, supple and no JVD Chest Wall inspection of chest normal and palpation of chest normal Resp normal respiratory effort and clear to auscultation bilaterally Cardio regular rate, regular rhythm, S1 normal heart sound, S2 normal heart sound and no murmurs Extremity normal to inspection Extremity Narrative: , Median, radial and ulnar nerve function are intact upper extremity. Radial pulses 2+ and symmetric. General Extremety ED: Negative for edema or tenderness General Extremity: Negative for edema Neuro oriented x3, CN's II-XII intact bilaterally and no sensory deficits noted Neuro Narrative: DTR 2+ at the bicep, brachialis, patella and ankle. There is no clonus or Babinski sign noted. Sensorium / Orientation: alert Motor Exam: strength 5/5 throughout Psych mental status grossly normal Skin no rashes or lesions noted, no wounds and skin turgor normal General Skin Exam: elasticity normal; Negative for jaundice or pallor MDM MDM MDM Narrative Medical decision making narrative: Patient with muscular neck pain. Since there is been no recent dental procedure, systemic symptoms in my opinion this represents musculoskeletal with no neurovascular findings she was treated with IV morphine, ketorolac and diazepam. He was given Zofran for nausea prevention. Prior records were reviewed. There is been no imaging of the neck. History & Record Review Additional record(s) reviewed:: Prior ED visit (January 2020 patient was seen for neck pain. No imaging was obtained at that time.) and Prior labs Treatment and Re-Evaluation :: Patient was reassessed at 0004. She feels markedly better. Plan is to discharge with prescription for Valium, NSAID and opiate analgesic. had questions regarding remedication. His questions were answered. Discharge Plan Triage Chief Complaint: Other, Pain/Inj ED Provider: Richmond Borden Dx/Rx/DC Orders Clinical Impression: Acute cervical myofascial strain, Acute torticollis, Polyneuropathy due to type 2 diabetes mellitus, Mixed hyperlipidemia, Type 2 diabetes mellitus treated with insulin Instructions: ED Neck Sprain or Strain Prescriptions: New hydrocodone-acetaminophen [hydrocodone-acetaminophen] 5-325 mg tablet 1 tab PO Q6H PRN PRN (Reason: Pain) 3 Days Qty: 10 0RF naproxen 500 mg tablet 500 mg PO BID Qty: 10 0RF diazepam [Valium] 2 mg tablet 2 mg PO TID PRN (Reason: muscle spasm) Qty: 9 0RF No Action metoprolol succinate 50 mg tablet extended release 24 hr 50 mg PO DAILY 30 Days Qty: 30 omeprazole 40 mg capsule,delayed release(DR/EC) 40 mg PO DAILY omega-3 acid ethyl esters 1 gram capsule 2 cap PO DAILY lisinopril-hydrochlorothiazide 20-25 mg tablet 1 tab PO DAILY insulin lispro [Humalog KwikPen Insulin] 100 unit/mL insulin pen subcut Patient Comments: INJECT 15 UNITS SUBCUTANEOUSLY BEFORE MEALS rosuvastatin 20 MG tablet 20 mg PO DAILY cholecalciferol (vitamin D3) 2,000 UNIT capsule 2,000 unit PO DAILY insulin glargine 100 UNIT/ML solution 40 unit SQ QHS metformin 500 MG tablet extended release 24 hr 500 mg PO DAILY Primary Care Provider: Javier Levy Referrals: Javier Levy MD [Primary Care Provider] - 3-5 Days if not improving Disposition Disposition: Home, Self Care
[2023-09-14] VITALS: BP 132/78; PULSE 75; RESP 18; O2SAT 95
[2023-09-14 01:03] VITALS: BP 128/74; PULSE 78; RESP 17; TEMP 36.3; O2SAT 94
== END 2023-09-14 01:04 | disposition home or self-care (01) ==
PROVIDERS: Emergency Provider Emergency Medicine; PCP Family Medicine; Visit Provider Emergency Medicine
DX: S16.1XXA Strain of muscle, fascia and tendon at neck level, initial encounter (principal); E11.42 Type 2 diabetes mellitus with diabetic polyneuropathy; Z79.4 Long term (current) use of insulin; M43.6 Torticollis; E78.2 Mixed hyperlipidemia; Z87.891 Personal history of nicotine dependence; X58.XXXA Exposure to other specified factors, initial encounter
CPT/HCPCS: 96374; 96375; 99282; A4216; J2405

== ENCOUNTER 2023-09-17 15:26 | Emergency (ER) | payer MEDICARE, BC, SELFPAY ==
[2023-09-17] VITALS (37 sets, daily range): BP systolic 138–256; BP diastolic 72–105; PULSE 83–119; RESP 5–23; TEMP 36–37.2; O2SAT 96–100; BMI 26.7
--- NOTE | 2023-09-17 15:27 | CT_ITS ---
We are attempting to reach an attending provider to discuss findings. An addendum with communication details will be sent when the communication is complete. INDICATION: Neuro deficit, acute, stroke suspected -- Facial droop left side, nystagmus EXAMINATION: CT BRAIN - CT Head Stroke Protocol W/O Contrast Injection TECHNIQUE: Multiple axial images were obtained of the head without intravenous contrast. A radiation dose optimization technique was used for this scan. IV Contrast dosage and agent: None. RADIATION DOSAGE (If Supplied By Facility): CTDIvol = ( 134.97 ) mGy, DLP = ( 2337.71 ) mGycm COMPARISON: No relevant prior comparison study available FINDINGS: BRAIN PARENCHYMA: No intra- or extra-axial hemorrhage. No evidence of acute infarct. No intracranial mass or mass effect. There is preservation of the syed/white matter interface. Posterior fossa structures are unremarkable. Motion artifacts limiting the examination. CSF SPACES: Appropriate for age. No hydrocephalus. Basal cisterns are patent. CALVARIUM, SKULL BASE, PARANASAL SINUSES AND MASTOID AIR CELLS: Clear. No discrete lytic or blastic abnormalities. ORBITS: Both globes, extraocular muscles, optic nerves and retrobulbar fat appear unremarkable. CT/STROKE Brain/Head without Cont IMPRESSION: No acute intracranial process. Electronically Signed: Diogo Boyce MD at 15:51 EDT ,
--- NOTE | 2023-09-17 15:27 | EKG12_ITS ---
Test Reason : NEURO Blood Pressure : / mmHG Vent. Rate : 098 BPM Atrial Rate : 098 BPM P-R Int : 176 ms QRS Dur : 080 ms QT Int : 376 ms P-R-T Axes : 049 -44 023 degrees QTc Int : 480 ms Normal sinus rhythm Left axis deviation Abnormal ECG Confirmed by Enrico Landeros ([id number]), film and video editor WASHINGTON MENDOZA ([id number]) on 09/19/2023 10:58:39 AM Referred By: Confirmed By:Enrico Landeros
--- NOTE | 2023-09-17 15:27 | CT_ITS ---
We are attempting to reach an attending provider to discuss findings. An addendum with communication details will be sent when the communication is complete. STUDY: CTA HEAD AND NECK WITH CONTRAST REASON FOR EXAM: Female, 63 years old. Neuro deficit, acute, stroke suspected RADIATION DOSAGE (If Supplied By Facility): CTDIvol = ( 17.3 ) mGy, DLP = ( 632.74 ) mGycm TECHNIQUE: CT angiography was performed with a multi-detector CT scanner. Data acquisition was obtained from the skull base through the vertex following intravenous administration of IV 100mL Isovue-370. MIP images were reconstructed from the axial data set. Post-processing of the angiographic images was performed, with multiplanar reformation and 3D reconstruction. Individualized dose optimization techniques were used for this CT. COMPARISON: No relevant priors. FINDINGS: Normal bilateral petrous carotid arteries. Normal right cavernous carotid artery with a normal supraclinoid bifurcation. Normal left cavernous carotid artery with a normal supraclinoid bifurcation. Mildly diffusely narrowed right A1 segments of the anterior cerebral artery. Normal left A1 segments of the anterior cerebral artery. Normal intact anterior communicating artery (ACOM). Normal bilateral A2 segments of the anterior cerebral arteries. Normal right M1 and M2 segments of the middle cerebral arteries, with a normal M1 bifurcation. Normal left M1 and M2 segments of the middle cerebral arteries, with a normal M1 bifurcation. Right posterior communicating artery not visualized consistent with normal variant). Normal left posterior communicating artery (PCOM). Normal bilateral vertebral arteries. Normal basilar artery with a normal basilar bifurcation. The visualized bilateral superior cerebellar (SCA) arteries are normal. Normal bilateral P1, P2 and visualized P3 segments of the posterior cerebral arteries. There is no demonstrated aneurysm of the [place]. There is no demonstrated abnormality of the visualized brain. AORTIC ARCH: Normal visualized aortic arch. Normal origins of the brachiocephalic, left common carotid, and left subclavian arteries. RIGHT CAROTID ARTERIES: Normal right common carotid artery (CCA). Mild calcific plaquing of the right common carotid bulb. Mild calcific plaquing of the origin of the right internal carotid (ICA) artery without a hemodynamically significant stenosis. Normal visualized cervical portion of the right internal carotid artery. Normal origin of the right external carotid artery (ECA). LEFT CAROTID ARTERIES: Mild calcific plaquing of the left common carotid artery (CCA). Moderate calcific plaquing of the left common carotid bulb. Moderate calcific plaquing of the origin of the left internal carotid (ICA) artery without a hemodynamically significant stenosis. Normal visualized cervical portion of the left internal carotid artery. Normal origin of the left external carotid artery (ECA). VERTEBRAL ARTERIES: Left vertebral was dominant and normal caliber. There is mild diffuse narrowing of the right vertebral which is normal developmental variant. CT/STROKE CTA Head AND Neck W/Con IMPRESSION: Mild to moderate atherosclerotic changes more advanced on the left without evidence for hemodynamically significant stenosis Electronically Signed: Mazin Oro MD at 16:31 EDT ,
[2023-09-17] MEDS: Lorazepam 2 MG/ML WCH Syringe 6 MG IV (15:38)
[2023-09-17] MEDS: Etomidate 20 MG/10 ML Vial IV (15:42)
[2023-09-17] MEDS: Succinylcholine Chloride 200 MG/10 ML SYRINGE 50 MG IV (15:43)
[2023-09-17 15:49] LABS: Absolute Lymphocyte Count 3.98 X10^3/uL (0.83-4.51); Absolute Neutrophil Count 8.6 X10^3/uL (2.0-7.7); Basophil# 0.05 X10^3/uL; Basophil% 0.4 % (0-1); Eosinophil# 0.14 X10^3/uL; Hematocrit 43.3 % (37-47); Hemoglobin 14.1 g/dL (12.0-15.0); Lymphocyte # 3.98 X10^3/ul (0.83-4.51); Lymphocyte % 29.7 % (19-41); Mean Corp Hgb Conc 32.6 g/dL (32-36); Mean Corpuscular Hgb 25.7 pg (27.0-32.0); Mean Corpuscular Volume 78.9 fL (81-99); Mean Platelet Vol. 9.5 fl (6.2-12.0); Monocyte# 0.29 X10^3/uL; Monocyte% 2.2 % (0-10); NRBC Flagged by Analyzer 0 % (0-5); Neutrophil # 8.61 X10^3/uL (2.7-7.7); Neutrophil % 64.2 % (47-70); Platelet Count 276 K/mm3 (150-450); RBC Distribution Width CV 13.2 % (11.6-14.6); RBC Distribution Width SD 37.5 fl (35.1-43.9); Red Blood Count 5.49 M/mm3 (4.2-5.4); White Blood Count 13.4 K/mm3 (4.4-11.0)
[2023-09-17] MEDS: Propofol 200 MG/20 ML Vial 60 MG IV BOLUS (15:51)
--- NOTE | 2023-09-17 15:53 | EDS_ITS ---
HPI History of Present Illness Chief Complaint: Stroke Alert Detail of Chief Complaint: Facial droop left side onset at approximately 1330 Informant: spouse/S.O. and EMS Onset/Context/Timing Onset: Today and Hours Context: Sudden Onset Timing: Continuous Quality and Location: Positive for Left Facial Droop Onset: 1330 Current Severity: Moderate Maximum Severity: Moderate Worsened by: Patient had abnormal motor activity, possible focal seizure Relieved by: Nothing Associated Symptoms Associated Symptoms: Positive for Headache (Per EMS and complaining for the past 24 hours), Nausea and Vomiting Narrative Narrative: Patient is a 63-year-old woman with history of type 2 diabetes on insulin, hyperlipidemia, hypertension who presents as stroke team. Patient was met in the ambulance bay. Patient has central gaze nystagmus. She had a flaccid left side. Wounds were not slurred. She does not follow commands. Her NIH is incomplete because she developed status epilepticus. Seizure started on left upper extremity. Eyes were deviated to the left. There was abnormal twitching of her eyelids. There is no seizure or abnormal movement of her legs. Patient was seen on Saturday night by me for neck pain. She was seen on Saturday by her primary care physician placed on [facility]. Last Saturday she awoke with neck pain and thought it was due to the way she slept. Patient's history and physical were consistent with muscular neck pain on Saturday. Apparently the medicine that was prescribed made her feel drowsy. She discontinued it. She felt well and went to her son's birthday libertarian yesterday. She had 2 pieces of pizza. He apparently woke up during the middle night had 2 pieces of pizza. Last evening she did complain of headache and felt nauseous. states he has been in and out of the house today. She has had nausea and vomiting and complained of worsening headache. He never noticed a facial droop. Case was discussed with Dr. Nick neurologist at [facility]. He is concerned that this may represent posterior vascular syndrome with the nystagmus nausea vomiting and headache. He agrees with treatment for status epilepticus. If there is an LVO patient will be shipped to [facility] otherwise [facility] is able to accept her. There was a pulmonary call made to [facility] to determine if they have ICU capacity for status epilepticus. Prior similar symptoms: No Recent Illness/Hospitalization: Yes PFSH [facility], [facility] Medical History Acute anemia Benign essential hypertension Diabetes Diabetes mellitus GIB (gastrointestinal bleeding) H/O transfusion of whole blood Hyperlipidemia Hypertension Hypokalemia Liver disease Mixed hyperlipidemia Neuropathy Noncompliance with diabetes treatment Osteoarthritis (arthritis due to wear and tear of joints) Polyneuropathy due to type 2 diabetes mellitus Skin cancer Vitamin D deficiency Home Medications metoprolol succinate 50 mg tablet,extended release 24 hr 50 mg PO DAILY heart 30 days #30 tabs 07/12/18 [History Last Taken 04/13/20] omeprazole 40 mg capsule,delayed release 40 mg PO DAILY gerd 05/08/19 [History Last Taken 04/13/20] metformin 500 mg tablet,extended release 24 hr 500 mg PO BID dm 04/14/20 [History Last Taken 04/13/20] lisinopril 20 mg-hydrochlorothiazide 25 mg tablet 2 tab PO DAILY 04/21/20 [History Last Taken Unknown] diazepam 5 mg tablet (Valium) 2.5 mg (1/2 x 5 mg) PO TID mascle spasm #5 tabs 09/14/23 [Rx Last Taken Unknown] naproxen 500 mg tablet 500 mg PO BID #10 tabs 09/14/23 [Rx Last Taken Unknown] hydrocodone-acetaminophen 5-325mg 5mg-325mg 1 tab PO Q6H PRN Pain 09/17/23 [History Last Taken Unknown] insulin glargine 100 unit/mL (3 mL) subcutaneous pen (Lantus Solostar U-100 Insulin) See Rx Instructions subcut .COMPLEX DM 09/17/23 [History Last Taken Unknown] simvastatin 40 mg tablet 40 mg PO DAILY 09/17/23 [History Last Taken Unknown] Allergy/AdvReac Type Severity Reaction Status Date / Time cyclobenzaprine AdvReac other Verified 09/13/23 20:09 [From Flexeril] Family History Father Arthritis Diabetes Myocardial infarction, Onset Age: 63 Heart disease Hypertension Sister Arthritis Diabetes Brother Diabetes Mental disorder Mother Hypertension Migraines Cerebral hemorrhage Surgical History H/O: Hx of colonoscopy Hx of rectal sphincterotomy Status post surgical removal of malignant neoplasm of skin Social History Smoking Status: Former smoker alcohol intake: never substance use type: does not use caffeine: Yes what type of physical activity do you participate in: none frequency: does not exercise ROS ROS ED Review of Systems ROS Unobtainable: due to mental status Gastrointestinal Gastrointestinal: Reports nausea and vomiting Neurologic Neurologic: Reports headache(s) EXAM Physical Exam Const Vital Signs: 09/17/23 15:27 09/17/23 16:21 09/17/23 16:28 Temperature Temperature Source Pulse Rate 96 Respiratory Rate 14 Respiratory Pattern Blood Pressure 152/81 H 208/104 H Blood Pressure Mean 104 138 Pulse Ox 98 Oxygen Delivery Method Room Air Mechanical Ventilator Fraction of Inspired Oxygen (FIO2) 30 09/17/23 15:26 09/17/23 15:57 09/17/23 16:30 Temperature 96.8 F L Temperature Source Axillary Pulse Rate 119 H 94 Respiratory Rate 18 23 H Respiratory Pattern Blood Pressure 256/104 H 185/100 H Blood Pressure Mean 154 128 Pulse Ox 100 100 Oxygen Delivery Method Mechanical Ventilator Mechanical Ventilator Fraction of Inspired Oxygen (FIO2) 09/17/23 16:45 09/17/23 15:45 09/17/23 17:00 Temperature Temperature Source Pulse Rate 101 H 88 Respiratory Rate 14 14 Respiratory Pattern Normal Blood Pressure 148/85 H Blood Pressure Mean 106 Pulse Ox 100 99 Oxygen Delivery Method Mechanical Ventilator Fraction of Inspired Oxygen (FIO2) 30 30 09/17/23 17:30 09/17/23 18:00 09/17/23 18:30 Temperature Temperature Source Pulse Rate 84 95 98 Respiratory Rate 14 15 15 Respiratory Pattern Blood Pressure 164/96 H 189/103 H 191/105 H Blood Pressure Mean 118 131 133 Pulse Ox 99 97 100 Oxygen Delivery Method Mechanical Ventilator Mechanical Ventilator Mechanical Ventilator Fraction of Inspired Oxygen (FIO2) 30 30 09/17/23 19:00 09/17/23 19:30 09/17/23 20:00 Temperature 98.9 F Temperature Source Temporal Pulse Rate 100 100 99 Respiratory Rate 15 14 12 Respiratory Pattern Blood Pressure 191/100 H 181/93 H 169/91 H Blood Pressure Mean 130 122 117 Pulse Ox 99 99 100 Oxygen Delivery Method Mechanical Ventilator Mechanical Ventilator Room Air Fraction of Inspired Oxygen (FIO2) 30 09/17/23 20:00 09/17/23 20:30 09/17/23 19:46 Temperature 98.6 F Temperature Source Pulse Rate 99 99 102 H Respiratory Rate 12 12 14 Respiratory Pattern Blood Pressure 169/91 H 169/101 H Blood Pressure Mean 117 123 Pulse Ox 100 99 100 Oxygen Delivery Method Room Air Fraction of Inspired Oxygen (FIO2) 30 09/17/23 16:41 09/17/23 16:45 09/17/23 16:50 Temperature Temperature Source Pulse Rate 89 87 87 Respiratory Rate Respiratory Pattern Blood Pressure 138/72 H Blood Pressure Mean 93 Pulse Ox 100 99 99 Oxygen Delivery Method Fraction of Inspired Oxygen (FIO2) 09/17/23 17:00 09/17/23 17:06 09/17/23 17:10 Temperature Temperature Source Pulse Rate 87 85 84 Respiratory Rate 14 14 14 Respiratory Pattern Blood Pressure 148/85 H 152/78 H Blood Pressure Mean 104 100 Pulse Ox 99 99 99 Oxygen Delivery Method Fraction of Inspired Oxygen (FIO2) 09/17/23 17:15 09/17/23 17:20 09/17/23 17:30 Temperature Temperature Source Pulse Rate 85 83 Respiratory Rate 14 14 Respiratory Pattern Blood Pressure 153/82 H 164/96 H Blood Pressure Mean 102 115 Pulse Ox 99 99 Oxygen Delivery Method Fraction of Inspired Oxygen (FIO2) 09/17/23 17:40 09/17/23 17:45 09/17/23 17:50 Temperature Temperature Source Pulse Rate 92 96 88 Respiratory Rate 13 13 Respiratory Pattern Blood Pressure 188/102 H Blood Pressure Mean 127 Pulse Ox 97 96 98 Oxygen Delivery Method Fraction of Inspired Oxygen (FIO2) 09/17/23 18:00 09/17/23 18:10 09/17/23 18:15 Temperature Temperature Source Pulse Rate 97 94 99 Respiratory Rate 10 L 10 L 12 Respiratory Pattern Blood Pressure 189/103 H 194/105 H Blood Pressure Mean 128 130 Pulse Ox 97 98 98 Oxygen Delivery Method Mechanical Ventilator Fraction of Inspired Oxygen (FIO2) 09/17/23 18:20 09/17/23 18:30 09/17/23 18:40 Temperature Temperature Source Pulse Rate 97 99 99 Respiratory Rate 13 15 13 Respiratory Pattern Blood Pressure 191/105 H Blood Pressure Mean 130 Pulse Ox 99 99 100 Oxygen Delivery Method Fraction of Inspired Oxygen (FIO2) 09/17/23 18:45 09/17/23 18:50 09/17/23 19:00 Temperature Temperature Source Pulse Rate 101 H Respiratory Rate 15 Respiratory Pattern Blood Pressure 189/97 H 191/100 H Blood Pressure Mean 124 125 Pulse Ox 100 Oxygen Delivery Method Fraction of Inspired Oxygen (FIO2) 09/17/23 19:10 09/17/23 19:15 09/17/23 19:20 Temperature Temperature Source Pulse Rate 97 97 98 Respiratory Rate 15 14 13 Respiratory Pattern Blood Pressure 178/96 H Blood Pressure Mean 119 Pulse Ox 99 100 100 Oxygen Delivery Method Fraction of Inspired Oxygen (FIO2) 09/17/23 19:30 09/17/23 19:40 09/17/23 19:45 Temperature Temperature Source Pulse Rate 99 99 Respiratory Rate 14 5 L Respiratory Pattern Blood Pressure 181/98 H 175/96 H Blood Pressure Mean 121 119 Pulse Ox 100 100 Oxygen Delivery Method Fraction of Inspired Oxygen (FIO2) 09/17/23 19:50 09/17/23 20:00 09/17/23 20:10 Temperature Temperature Source Pulse Rate 100 104 H Respiratory Rate 8 L Respiratory Pattern Blood Pressure 177/98 H Blood Pressure Mean 120 Pulse Ox 98 97 Oxygen Delivery Method Mechanical Ventilator Fraction of Inspired Oxygen (FIO2) Positive well nourished and well developed Constitutional Narrative: Patient was on her right side. Emesis noted in emesis bag. She has central gaze nystagmus with fast component to the left.'s speech was not slurred. She had problems with fluency. She was not obeying simple commands. NIH score was not completed because patient began to have rhythmic movement of her eyelashes which raise concern for possible seizure. She was taken immediately down to the radiology suite for a CT minus scan. Had to be repeated because of artifact because patient began to seize. Seizure started left upper extremity. There is facial twitching and fluttering her eyelashes followed by abnormal movement of the right upper extremity. There is no abnormal movement of the lower extremity exam she did have bilateral Babinski sign. General Appearance ED: well developed HEENT Reports moist mucous membranes atraumatic Eyes PERRL and EOMs intact bilaterally Eyes Narrative: Horizontal nystagmus with fast component to the left General Eye ED: Negative for pale conjunctiva or scleral icterus Neck no lymphadenopathy, supple and no JVD Chest Wall inspection of chest normal and palpation of chest normal Resp normal respiratory effort and clear to auscultation bilaterally Cardio Rate: tachycardic Rhythm: regular rhythm Heart Sounds: S1 normal and S2 normal GI normal to inspection, nondistended, normoactive bowel sounds, soft to palpation and non-tender Narrative: Normal external genitalia Back/Spine Back/Spine Narrative: Normal inspection Extremity normal to inspection Extremity Narrative: Flaccid left side Neuro No oriented x3, No CN's II-XII intact bilaterally and No no sensory deficits noted Mcandrews Coma Scale: document GCS findings To Voice Obeys Commands Confused 13 Sensorium / Orientation: Negative for alert Psych mental status grossly normal Skin no wounds General Skin Exam: Negative for jaundice Lesions: no lesions Rashes: no rashes NIHSS NIHSS Initial: 1a Level of Consciousness: 1 1b LOC Questions (Score 2 if aphasic/stupor): 2 1c LOC Commands (Only score 1st attempt): 2 2 Best Gaze (If aphasic, use reflexive mvmts.): 1 4 Facial Palsy: 1 5 Motor Arm Right (UN = amputation/fusion): 0 5 Motor Arm Left: 4 6 Motor Leg Right: 4 6 Motor Leg Left: 0 7 Limb ataxia (Only + if out of proportion): UN 8 Sensory (Aphasia/stupor=0 or 1, coma=2): 0 9 Best Language: 1 10 Dysarthria (mute, coma=2, intubated=UN): 0 11 Extinction and Inattention (only scored if +): 1 Total Score: 17 MDM MDM MDM Narrative Medical decision making narrative: Differential diagnoses include stroke with seizure, subarachnoid hemorrhage, p rimary seizure disorder, malignancy. CT minus was obtained. Patient began to have seizures during the first scan. Patient received 0.1 mg/kg of Ativan. She continued to seize. Once the CT head without contrast was completed she was brought to her room. She was orotracheally debated using RSI technique. Patient placed on high percent nonrebreather. She received 20 mg of etomidate followed by 50 mg succinylcholine. She was easily orotracheal intubated with a 7.5 [place] endotracheal tube first-pass. [place] scope was used. Appropriate color change on capnometer. Appropriate breath sounds bilaterally. [place] in OG was placed per nursing staff. Pharmacy was contacted for 60 mg/kg of Keppra for status epilepticus. Patient received a 60 mg bolus of propofol followed by propofol drip. Charge nurse contacted [facility] to determine if they have capacity for status epilepticus patient. Case was discussed with neurology at [facility] Dr.Guloti. If patient has LVO patient be shipped to [facility] otherwise transfer to [facility]. Also in the consideration need to evaluate for hypertensive emergency. Labetalol was the initial medicine to lower her blood pressure since she was tachycardic as well. [facility] transfer nurse, critical care transport and neurointensivist at 1645. The accepting physician was Dr. Cassidy neurointensivist Spoke to the after speaking with transfer personnel at [facility] to notify him of transfer and destination. He informed that he found his slumped over with rhythmic movement of her right upper extremity as if she was scratching her right leg. When she spoke she did not make sense. I received call back from the neuroteam and they requested meningeal doses of Rocephin, vancomycin which is 50 mg/kg, ampicillin and 10 mg/kg of acyclovir. I informed him that I will do my best to have these all administer. Will start with Rocephin since it could be administered the quickest followed by vancomycin. If patient is still here prior to the transport team arriving will order ampicillin and acyclovir. I informed him that I would not administer all 4 at the same time because if she has a rack reaction will not be able to determine which meds she had a reaction too. 1850: Since patient is still here ampicillin and acyclovir was ordered. Blood pressure and 2010 was 177/98. Will allow for permissive hypertension in light of patient's presentation. History & Record Review Discussion w/independent historian: EMS personnel and Significant other Additional record(s) reviewed:: Prior outpatient record, Prior ED visit and Prior labs Lab Data Attestation: I reviewed the patient's lab results. Lab results narrative: White count is elevated which is nonspecific. Comprehensive metabolic panel shows a CO2 of 15 with an anion gap of 23 consistent with seizure. Creatinine is elevated 1.28 with an estimated GFR of 44. Blood sugar is elevated at 352. Patient does have history of type 2 di abetes. Troponin was normal. Calcium is normal. Labs: Laboratory Results - last 24 hr 09/17/23 15:40 WBC 13.4 H RBC 5.49 H Hgb 14.1 Hct 43.3 MCV 78.9 L MCH 25.7 L MCHC 32.6 RDW Std Deviation 37.5 RDW Coeff of Shameka 13.2 Plt Count 276 MPV 9.5 Immature Gran % (Auto) 2.500 H Neut % (Auto) 64.2 Lymph % (Auto) 29.7 Garland % (Auto) 2.2 Eos % (Auto) 1.0 Baso % (Auto) 0.4 Absolute Neuts (auto) 8.6 H Absolute Lymphs (auto) 3.98 Nucleated RBC % 0 PT 13.5 INR 1.0 APTT 26.6 Sodium 136 Potassium 3.6 Chloride 98 Carbon Dioxide 15.0 L Anion Gap 23 H BUN 11 Creatinine 1.28 H Estim Creat Clear Calc 36.25 Est GFR (MDRD) Af Amer 54 L Est GFR (MDRD) Non-Af 44 L BUN/Creatinine Ratio 8.6 L Glucose 352 H Calcium 9.9 Total Creatine Kinase 65 Troponin I High Sens 32 Triglycerides 404 H ABG Data ABG results: ABG 09/17/23 16:43 Specimen Type ART Sample Site R Brach pH 7.35 Bicarbonate Actual 18.8 L Total CO2 20 Base Excess -7 L O2 Saturation 96 O2 % 30.0 ABG pCO2 34.2 L ABG pO2 87 Respiration Rate 14 O2 Delivery Device Adult Vent Vent Mode AC Tidal Volume 450.0 POC PEEP 5 Radiography Chest X-Ray - ED: 1 View and Read by ED Physician (Single view portable chest x- ray reveals endotracheal tube to be 2 cm above the micah. OG is in proper position. There is no evidence of pneumothorax, infiltrate or effusion. Cardiac silhouette and size normal. Hilum is normal. Osseous structures are unremarkable.) Diagnostic Testing: Clinical Impression(s) from Imaging Studies Brain CT 09/17/23 15:27 IMPRESSION: No acute intracranial process. Electronically Signed: Diogo Boyce MD at 15:51 EDT , ADDENDUM: 09/17/23 1263 IMPRESSION: No acute intracranial process. N.B. : The above Results were Read Back by Diogo Boyce MD to Ira Parikh MD, and understanding confirmed on 09/17/2023 15:52:54 (ET). Electronically Signed: Diogo Boyce MD at 15:51 EDT , Head/Neck CTA 09/17/23 15:27 IMPRESSION: Mild to moderate atherosclerotic changes more advanced on the left without evidence for hemodynamically significant stenosis Electronically Signed: Mazin Oro MD at 16:31 EDT , ADDENDUM: 09/17/23 1639 IMPRESSION: Mild to moderate atherosclerotic changes more advanced on the left without evidence for hemodynamically significant stenosis N.B. : The above Results were Read Back by Mazin Oro MD to Richmond Borden MD, and understanding confirmed on 09/17/2023 16:32:17 (ET). Electronically Signed: Mazin Oro MD at 16:31 EDT , Chest X-Ray 09/17/23 16:00 IMPRESSION: No acute cardiopulmonary pathology status post intubation. Electronically Signed: Mazin Oro MD at 17:10 EDT , The radiologist from [facility] did call and spoke with Dr. Castellano since I was intubating the patient. Per my review of the CTA of the head and neck there is no evidence of aneurysmal bleed or LVO. Awaiting formal read by radiologist. Rhythm Strip Rhythm Strip: Sinus Tach Rate: 110 Ectopy: None EKG Initial EKG: Attestation: I personally reviewed and interpreted this EKG as follows: Interpretation: Sinus Rhythm Comments: Rate is 98. Wellborn to left. IL interval 276 ms per cures durati on 80 ms. QT durations are 76 ms. Management Discussion w/another healthcare provider: Hammerer, Radiologist, Pharmacist and Other Treatment and Re-Evaluation Narrative: 1. 0.1 mg/kg of Ativan IV push 2. Oral tracheal ovation by RSI 3. 60 mg/kg of Keppra IV piggyback 4. IV labetalol for markedly elevated blood pressure. Critical Care Time Critical Care Time: Yes Critical care time (excluding procedures): 75-104 minutes (77), Including time spent: (History, physical, documentation, independent or potation of imaging and laboratory results), Discussing w/Patient &/or Family/Electric Switch Tester, Discussing w/Consultants (Consultation with radiology, neurologist at [facility] and assisted living associate), Arranging Admission or Transfer, Performing Direct Patient Care at Bedside (Management of blood pressure and securing airway) and - (Continued monitoring and management of patient awaiting transfer) Discharge Plan Triage Chief Complaint: Stroke Alert ED Provider: Richmond Borden Dx/Rx/DC Orders Clinical Impression: Complex partial status epilepticus, Mixed hyperlipidemia, Liver disease, Hypertensive emergency, no CHF, Controlled type 2 diabetes mellitus with hyperglycemia, High anion gap metabolic acidosis Prescriptions: No Action metoprolol succinate 50 mg tablet extended release 24 hr 50 mg PO DAILY 30 Days Qty: 30 omeprazole 40 mg capsule,delayed release(DR/EC) 40 mg PO DAILY lisinopril-hydrochlorothiazide 20-25 mg tablet 2 tab PO DAILY metformin 500 MG tablet extended release 24 hr 500 mg PO BID naproxen 500 mg tablet 500 mg PO BID Qty: 10 0RF diazepam [Valium] 5 mg tablet 2.5 mg PO TID Qty: 5 0RF simvastatin 40 mg tablet 40 mg PO DAILY insulin glargine [Lantus Solostar U-100 Insulin] 100 unit/mL (3 mL) insulin pen See Rx Instructions subcut .COMPLEX Rx Instructions: INJECT 20 UNITS IN THE MORNING AND 65 UNITS IN THE EVENING subcutaneously; hydrocodone-acetaminophen [hydrocodone-acetaminophen] 5-325 mg tablet 1 tab PO Q6H PRN (Reason: Pain) Primary Care Provider: Javier Levy Referrals: Javier Levy MD [Primary Care Provider] - Disposition Disposition: Acute Care Hospital Discharge Location: [facility] Discharge Date/Time: 09/17/23 20:47
[2023-09-17] MEDS: Labetalol (Prefilled) 20 MG/4 ML IV (15:56)
[2023-09-17] MEDS: Propofol 200 MG/20 ML Vial 40 MG IV BOLUS (16:00)
--- NOTE | 2023-09-17 16:00 | RAD_ITS ---
STUDY: X-RAY CHEST REASON FOR EXAM: Female, 63 years old. Neuro deficit, acute, stroke suspected TECHNIQUE: AP portable COMPARISON: None. FINDINGS: The lungs are clear and expanded. There is no demonstrated pleural abnormality. Endotracheal tube noted with tip 3.15 cm proximal to micah Normal size heart. Normal mediastinum and estelle. Normal visualized pulmonary arteries. Normal visualized aortic arch and descending thoracic aorta. Normal visualized thoracic spine. Normal visualized ribs, clavicles, and shoulders. Nasogastric tube is seen in the distal stomach. There is no demonstrated abnormality of the visualized soft tissue structures of the upper abdomen. RAD/Chest 1 View IMPRESSION: No acute cardiopulmonary pathology status post intubation. Electronically Signed: Mazin Oro MD at 17:10 EDT ,
[2023-09-17 16:01] LABS: Prothrombin Time (Protime)PT. 13.5 SECONDS (11.7-14.9)
[2023-09-17 16:10] LABS: Anion Gap 23 (5-15); BUN 11 mg/dL (7-18); BUN/Creat Ratio 8.6 RATIO (10-20); Calcium,Total 9.9 mg/dL (8.5-10.1); Chloride 98 mmol/L (98-107); Creatinine, Serum 1.28 mg/dL (0.55-1.02); EST Glomerular Filtration Rate 44 mL/min (>60); Est Glom Filt Rate - Afr Amer 54 mL/min (>60); Estimated Creatinine Clearance 36.25 ml/min; Glucose 352 mg/dL (74-106); Potassium 3.6 mmol/L (3.5-5.1); Sodium Level 136 mmol/L (136-145); Troponin-I HS 32 pg/mL (3.0-54.0)
[2023-09-17] MEDS: Propofol 10MG/Ml 1,000 MG/100 ML Bottle 3.6 MG CONT INF (16:10)
[2023-09-17 16:15] LABS: Partial Thromboplast Time 26.6 Seconds (24.1-36.2)
[2023-09-17] MEDS: NORMAL SALINE 0.9% IV (16:17)
[2023-09-17] MEDS: LEVETIRACETAM IV (16:17)
--- NOTE | 2023-09-17 16:18 | ED.RN ---
PT SEIZING IN CT. PER DR. [place] IN CT AT BEDSIDE GIVES VERBAL ORDER FOR 6 MG IV ATIVAN IVP NOW. PT MEDICATION GIVEN BY THIS RN IVP AT 1553 THROUGH LEFT FOREARM IV. PT STOPS SEIZING. CT COMPLETED. PT RETURNED TO PT ROOM.
[2023-09-17] MEDS: fentaNYL 100 MCG/2 ML Ampul 50 MCG IV (16:34)
--- NOTE | 2023-09-17 16:40 | ED.RN ---
Addendum entered by Mary Ellen Fleming 09/17/23 16:43: propofol increased at 1625 Original Note: per Dr. Borden, propofol drip increased to 40mcg/kg/min d/t patient agitated and fighting the ventilator. additional bolus dose of 50 mcg of fentanyl also administered.
[2023-09-17 16:48] LABS: Base Excess -7 mmol/L (-2 to +2); Bicarbonate 18.8 mmol/L (22-26); Blood Gas Specimen Type ART; Mode AC; O2 Delivery Device Adult Vent; PEEP 5; PO2 87 mmHG (75-100); RR 14; SITE R Brach; SO2 96 % (95-99); Total Carbon Dioxide 20 mmol/L; pCO2 34.2 mmHg (35-45); pH 7.35 (7.35-7.45)
--- NOTE | 2023-09-17 17:17 | ED.RN ---
teaching not completed d/t intubation
[2023-09-17] MEDS: Ceftriaxone 2 GM in 0.9% Normal Saline (50mL MB+) 50 ML IV (17:22)
[2023-09-17] MEDS: Vancomycin IV 1,000 MG/200 ML BAG 200 MG IV (17:58)
[2023-09-17 18:39] LABS: CPK Total, Creatine Kinase 65 U/L (26-192); Triglycerides 404 mg/dL
[2023-09-17] MEDS: Acyclovir 525 MG in Dextrose 5%-Water (250mL Bag) 250 ML 260.5 MG IV (19:25)
[2023-09-17] MEDS: Propofol 10MG/Ml 1,000 MG/100 ML Bottle 14.4 MG CONT INF (20:39)
[2023-09-17] MEDS: Ampicillin 2 GM in 0.9% Normal Saline (100mL MB+) 100 ML IV (20:40)
--- NOTE | 2023-09-17 21:24 | ED.RN ---
PATIENT BELONGINGS FOUND IN ROOM WHILE EVS CLEANING AFTER PT DEPARTED [facility]. PLACED IN A BAG WITH PATIENT LABEL AND GIVEN TO SECURITY. , BRODERICK, CALLED AND INFORMED THAT HE COULD PICK THEM UP ANYTIME THAT IS CONVENIENT.
== END 2023-09-17 20:47 | disposition short-term general hospital (02) ==
PROVIDERS: Emergency Provider Emergency Medicine; PCP Family Medicine; Visit Provider Emergency Medicine
DX: G40.201 Localization-related (focal) (partial) symptomatic epilepsy and epileptic syndromes with complex partial seizures, not intractable, with status epilepticus (principal); E11.42 Type 2 diabetes mellitus with diabetic polyneuropathy; E11.65 Type 2 diabetes mellitus with hyperglycemia; Z79.4 Long term (current) use of insulin; I16.1 Hypertensive emergency; E78.2 Mixed hyperlipidemia; I10 Essential (primary) hypertension; E87.20 Acidosis, unspecified; K76.9 Liver disease, unspecified; Z79.84 Long term (current) use of oral hypoglycemic drugs; Z79.899 Other long term (current) drug therapy; Z87.891 Personal history of nicotine dependence
CPT/HCPCS: 31500; 31720; 36600; 51702; 70450; 70496; 70498; 71045; 80048; 82550; 82803; 84478; 84484; 85025; 85610; 85730; 93005; 94002; 96365; 96366; 96367; 96375; 99252; 99285; J7030; J7050; Q9967; A4216; G0463; J0330

== ENCOUNTER 2023-09-25 20:20 | Inpatient (IN) | payer MEDICARE, BC, SELFPAY ==
[2023-09-25 20:51] VITALS: BP 142/77; PULSE 77; RESP 17; TEMP 36.7; O2SAT 97
[2023-09-25 22:00] VITALS: BP 142/70; PULSE 87; RESP 17; TEMP 36.8; O2SAT 97
[2023-09-25] MEDS: Insulin Glargine-YFGN 100 UNIT/ML Pen 15 UNIT SC (22:09)
[2023-09-25] MEDS: levETIRAcetam 500 MG Tablet PO (22:10)
[2023-09-25] MEDS: Atorvastatin Calcium 20 MG Tablet PO (22:10)
[2023-09-25] MEDS: Lisinopril 40 MG Tablet PO (22:11)
[2023-09-25 22:29] VITALS: PULSE 77
[2023-09-25] MEDS: hydrALAZINE 50 MG Tablet PO (22:29)
[2023-09-25 22:36] LABS: Bedside Glucose 149 mg/dL (74-106)
[2023-09-26 01:21] VITALS: BMI 26.9
[2023-09-26 05:35] VITALS: BP 114/60
[2023-09-26] MEDS: Enoxaparin 40 MG/0.4 ML Syringe SC (05:36)
[2023-09-26 05:38] VITALS: PULSE 69
[2023-09-26] MEDS: hydrALAZINE 50 MG Tablet PO ×3 (05:38→23:14)
[2023-09-26 05:58] LABS: Hemoglobin 10.5 g/dL (12.0-15.0); Mean Corp Hgb Conc 31.8 g/dL (32-36); Mean Corpuscular Hgb 25.6 pg (27.0-32.0); Mean Corpuscular Volume 80.5 fL (81-99); Mean Platelet Vol. 8.9 fl (6.2-12.0); Platelet Count 304 K/mm3 (150-450); RBC Distribution Width CV 14.6 % (11.6-14.6); RBC Distribution Width SD 40.9 fl (35.1-43.9)
[2023-09-26 05:59] LABS: Bedside Glucose 137 mg/dL (74-106)
[2023-09-26 06:25] LABS: ALB/GLOB Ratio 0.6 RATIO (0.9-2.4); AST(SGOT) 25 U/L (15-37); Alanine Aminotransfer ALT/SGPT 33 U/L (13-56); Albumin, Serum 2.7 g/dL (3.2-5.0); Alkaline Phosphatase 107 U/L (45-117); Anion Gap 5 (5-15); BUN 21 mg/dL (7-18); BUN/Creat Ratio 24.5 RATIO (10-20); Calcium,Total 9.3 mg/dL (8.5-10.1); Chloride 106 mmol/L (98-107); Creatinine, Serum 0.86 mg/dL (0.55-1.02); EST Glomerular Filtration Rate 71 mL/min (>60); Est Glom Filt Rate - Afr Amer 85 mL/min (>60); Estimated Creatinine Clearance 59.34 ml/min; Globulin 4.4 g/dL (2.2-4.2); Glucose 149 mg/dL (74-106); Magnesium 2.2 mg/dL (1.6-2.6); Phosphorus 3.7 mg/dL (2.5-4.9); Potassium 4.1 mmol/L (3.5-5.1); Protein, Total 7.1 g/dL (6.4-8.2); Sodium Level 139 mmol/L (136-145)
[2023-09-26] MEDS: Insulin Lispro 100 UNIT/ML INSULN.PEN 15 UNIT SC ×3 (08:10→17:09)
[2023-09-26] MEDS: Ferrous Sulfate 325 MG Tablet PO (08:11)
[2023-09-26] MEDS: Omega-3 Acid Ethyl Esters 1 GM Capsule PO (08:11)
[2023-09-26] MEDS: levETIRAcetam 1,000 MG Tablet 1000 MG PO ×2 (08:11→23:13)
[2023-09-26] MEDS: amLODIPine 10 MG Tablet PO (08:11)
[2023-09-26] MEDS: metFORMIN HCl 500 MG Tablet PO ×2 (08:11→17:12)
[2023-09-26] MEDS: Carvedilol 12.5 MG Tablet PO ×2 (08:12→17:02)
[2023-09-26] MEDS: Cholecalciferol (VIT D3) 25 MCG TABLET (1,000 UNITS) 50 MCG PO (08:12)
[2023-09-26] MEDS: Pantoprazole Sodium 40 MG Tablet PO (08:12)
[2023-09-26] MEDS: FLUoxetine 20 MG Capsule PO (08:12)
[2023-09-26] MEDS: Senna/Docusate Sodium 1 Tablet 2 TABLET PO (08:12)
[2023-09-26] MEDS: Ascorbic Acid 500 MG Tablet 1000 MG PO (08:12)
[2023-09-26 10:00] VITALS: BP 116/65; PULSE 66; RESP 16; TEMP 37.2; O2SAT 98
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
[2023-09-26 12:13] LABS: Bedside Glucose 92 mg/dL (74-106)
--- NOTE | 2023-09-26 13:20 | RAD_ITS ---
STUDY: X-RAY - CERVICAL SPINE REASON FOR EXAM: Female, 63 years old. Neck pain after a fall. TECHNIQUE: 3 view(s) of the cervical spine were obtained. COMPARISON: None FINDINGS: There are degenerative changes of the anterior atlantoaxial articulation. Normal odontoid process. There is straightening of the normal cervical lordosis. Minimal anterior listhesis of C4 on C5 due to facet joint osteoarthritis. Minimal anterior listhesis of C5 on C6. Marked degree of disc space narrowing and spondylosis at the C6-C7 level. Normal visualized intervertebral neuroforamina. The soft tissue structures are unremarkable. RAD/Cerv Spine 2 or 3 Views IMPRESSION: Straightening of the normal cervical lordosis. Marked degree of disc space narrowing and spondylosis at the C6-C7 level. Minimal anterior listhesis of C4 on C5 and C5 on C6 most likely secondary to facet joint osteoarthritis. Electronically Signed: Ken Quiroz MD at 15:22 EDT ,
[2023-09-26 14:58] VITALS: BP 100/61; PULSE 73
[2023-09-26] MEDS: tiZANidine HCl 2 MG Tablet PO ×2 (17:02→23:15)
[2023-09-26 17:41] LABS: Bedside Glucose 109 mg/dL (74-106)
--- NOTE | 2023-09-26 18:35 | NURSING ---
Notified Dr. Kelly of pt BS of 46 and 47. Administered orange juice and snack. Received orders to recheck in an hour. Will continue to monitor.
[2023-09-26 19:19] LABS: Bedside Glucose 100 mg/dL (74-106)
[2023-09-26 22:00] VITALS: BP 102/58; PULSE 74; RESP 16; TEMP 36.5; O2SAT 95
[2023-09-26 22:09] LABS: Bedside Glucose 111 mg/dL (74-106)
[2023-09-26] MEDS: Arthritis Pain Compound 60 CLICK TUBE TOPICAL (23:10)
[2023-09-26 23:14] VITALS: PULSE 66
[2023-09-26] MEDS: Atorvastatin Calcium 20 MG Tablet PO (23:15)
[2023-09-26] MEDS: Insulin Glargine-YFGN 100 UNIT/ML Pen 15 UNIT SC (23:16)
[2023-09-26] MEDS: Lisinopril 40 MG Tablet PO (23:17)
[2023-09-27 05:03] VITALS: PULSE 65
[2023-09-27] MEDS: hydrALAZINE 50 MG Tablet PO (05:03)
[2023-09-27] MEDS: Arthritis Pain Compound 60 CLICK TUBE TOPICAL ×3 (05:03→21:05)
[2023-09-27] MEDS: Enoxaparin 40 MG/0.4 ML Syringe SC (05:03)
[2023-09-27 06:00] VITALS: BMI 26.9
[2023-09-27 06:42] LABS: Bedside Glucose 154 mg/dL (74-106)
[2023-09-27] MEDS: FLUoxetine 20 MG Capsule PO (08:17)
[2023-09-27] MEDS: Pantoprazole Sodium 40 MG Tablet PO (08:17)
[2023-09-27] MEDS: Insulin Lispro 100 UNIT/ML INSULN.PEN 10 UNIT SC ×3 (08:17→17:38)
[2023-09-27] MEDS: amLODIPine 10 MG Tablet PO (08:17)
[2023-09-27] MEDS: Ascorbic Acid 500 MG Tablet 1000 MG PO (08:18)
[2023-09-27] MEDS: Cholecalciferol (VIT D3) 25 MCG TABLET (1,000 UNITS) 50 MCG PO (08:18)
[2023-09-27] MEDS: tiZANidine HCl 2 MG Tablet PO ×2 (08:18→21:07)
[2023-09-27] MEDS: Carvedilol 12.5 MG Tablet PO ×2 (08:18→16:50)
[2023-09-27] MEDS: Omega-3 Acid Ethyl Esters 1 GM Capsule PO (08:18)
[2023-09-27] MEDS: metFORMIN HCl 500 MG Tablet PO ×2 (08:18→16:50)
[2023-09-27] MEDS: levETIRAcetam 1,000 MG Tablet 1000 MG PO ×2 (08:18→21:05)
[2023-09-27 08:23] VITALS: BP 107/64; PULSE 65; RESP 16; TEMP 36.4; O2SAT 97
[2023-09-27 11:15] LABS: Bedside Glucose 130 mg/dL (74-106)
--- NOTE | 2023-09-27 12:37 | PCM.RU.PYE ---
Admission Information Primary Diagnosis:: Debility due to encephalopathy/seizures due to PRES Status Changes from Prescreening?: No changes Identified Actual Problem List:: Cognitve Impr/Memory Loss, Depression, Bowel, Constipation, Alteration in Sleep, Mobility Impaired, Self Care Deficit, BP, Hypertension, BP, Hypotension and Alteration-Leisure Activ. Potential Problem List:: DVT, Bleeding, Infection, UTI, Aspiration, Falls, Skin Integrity and Depression Risk of Complications DVT: LMWH and WANDA Hose Bleeding: Monitor Lab Values, Nursing to Teach Precautions for anti-coagulation therapy., Wound, if applicable, to be assessed every shift. and Stroke patients assessed for lethargy or change in status. Infection: Clinical Staff to Monitor for S/S of infection: and S/S of infection include fever, redness, warmth, etc. Urinary Tract Infection: Monitor for frequency, burning, discomfort, or incontinence. and Nursing will obtain urine sample for urinalysis and C&S when ordered. Aspiration: Clinical staff will monitor for coughing, drooling, congestion., Speech will evaluate swallowing and dsyphasia. and Nursing will monitor patient swallowing during meals. Falls: Patient will be evaluated for Fall Precautions and Patient will be placed on Fall Precautions as indicated per protocol. Skin Breakdown: Nursing will assess skin daily using assessment tool. and Nursing will place on Skin Breakdown Precautions as indicated. Pain: Clinical staff will assess patient's pain level per protocol., Medications will be given, if needed, and the pain level reassessed. and Other methods: Massage, distraction, decrease stimulus, etc. used PRN. Plan of Care Patient requires physician specializing in physical medicine and rehab oversight to provide close medical supervision of rehab issues including: Pain Management, Sleep Problems, Bowel and Bladder, Medical and co-morbidity Management, DVT prophylaxis, Rehabilitation Leadership and Coordination of treatment team Patient needs Physical Therapy: For a minimum of 1 hour and At least 5 out of 7 days Patient needs Physical Therapy to improve:: Mobility, Strengthening, Transfers, Stretching, ROM, Endurance, Stairs, Gait and Balance Patient needs Occupational Therapy: For a minimum of 1 hour and At least 5 out of 7 days Patient needs Occupational Therapy to improve ADL's incl.: Eating, Grooming, Bathing, Dressing, Toileting, Toilet transfers, Community Reintegration, Higher functioning activities, Household tasks, Adaptive Equipment, Splinting and Other activities as determined Patient requires speech therapy: For a minimum of 1 hour and At least 5 out of 7 days Patient requires speech therapy for: Swallowing, Cognition, Language Skills and Compensatory Strategies Patient requires 24/ Rehabilitation Nursing for: Pain Issues, Identifying and preventing risk factors, Monitoring and reporting current medical conditions, Assisting with ambulation, transfer, and all ADL's, Teaching patients about disease process and medications, Family teaching, Providing safe environment, Bowel and Bladder Issues, Skin integrity and Medication Management Patient needs Operating System Designer/ Case Management for: Discharge Planning, Arranging Home Equipment or Services and Family Interventions Patient needs Dietary and Nutrition Services for: Adequate Nutrition, Nutritional Supplements and Nutritional Education Goals Goals Patient will remain: free from falls Patient will perform eating at: MOD I level of assist. Patient will perform bed mobility at: MOD I level of assist. Patient will complete transfers from bed to chair at: MOD I level of assist. Patient will ambulate: - (500 feet without a device on various surfaces) Patient will complete upper body dressing at: MOD I level of assist. Patient will complete lower body dressing at: MOD I level of assist. (Distant supervision) Patient will complete toilet transfer at: - (Distant supervision) Patient will complete toileting at: - (Distant supervision) Patient will perform bathing at: - (Distant supervision) Patient will perform Tub/Shower transfer at: - (Supervision) Patient will complete grooming at: MOD I level of assist. Patient will complete home management skills at: MOD I level of assist. (with a WW) Patient will achieve: - (12 steps with 1 handrail at standby assist to allow access to her basement and 1 curb step.) Patient will have pain level of: of 3 or less Patient's skin will: remain intact Patient will receive: adequate nutrition. Discharge Planning Estimated Length of stay (days): 21 Anticipated D/C Destination: Home with Outpt Therapy Was Preadmission Assessment Accurate?: Yes
--- NOTE | 2023-09-27 12:37 | PCM.PROGNOTE ---
Subjective Subjective Afebrile VSS-blood pressure is too low and will need to adjust antihypertensives. Maintaining appropriate oxygen saturation on RA Oral intake - FOOD good FLUIDS not being monitored. Denies lightheadedness. Blood sugar record was reviewed. She has had some low blood sugars and the insulin regimen has been adjusted. Discussed with nursing - BP is low. Reviewed the THERAPY notes Medication list reviewed. More is complaining of some lightheadedness and feeling tired and weak. She denies chest pain, shortness of breath, cough, palpitations, nausea/vomiting/abdominal pain, dysuria and calf tenderness. Objective Data Objective Data Vital Signs: Vital Signs Temp Pulse Resp BP Pulse Ox O2 Del Method 97.5 F L 65 16 107/64 97 Room Air 09/27/23 08:23 09/27/23 08:23 09/27/23 08:23 09/27/23 08:23 09/27/23 08:23 09/27/23 08:23 Oxygen Delivery Method Room Air Weight: 151 lb 14.376 oz Body Mass Index (BMI) 26.9 Intake & Output: Intake and Output for Last 24 Hours 09/25/23 09/26/23 09/27/23 23:59 23:59 23:59 Output Total 200 / 200 Balance -200 / -200 Lab / Micro Data 09/26/23 05:44 09/26/23 05:44 Labs: Laboratory Results - last 24 hr 09/26/23 17:08: POC Glucose 109 H 09/26/23 19:00: POC Glucose 100 09/26/23 21:51: POC Glucose 111 H 09/27/23 06:23: POC Glucose 154 H 09/27/23 10:56: POC Glucose 130 H Radiography Diagnostic Testing: Radiology Impression Cervical Spine X-Ray 09/26/23 13:20 IMPRESSION: Straightening of the normal cervical lordosis. Marked degree of disc space narrowing and spondylosis at the C6-C7 level. Minimal anterior listhesis of C4 on C5 and C5 on C6 most likely secondary to facet joint osteoarthritis. Electronically Signed: Ken Quiroz MD at 15:22 EDT , Physical Exam Const alert, oriented x3 and no apparent distress Constitutional Narrative: Making good eye contact, appropriate. Some trouble with word finding and loses her train of thought and I have to remind her what we were talking about. General Appearance: comfortable Resp normal respiratory effort, no use of accessory muscles and clear to auscultation bilaterally Resp Narrative: Not tachypneic and no conversational dyspnea. Cardio regular rate, regular rhythm and no gallops Cardio Narrative: She has a systolic ejection murmur at the second right intercostal space with radiation to the left ventricular outflow tract, lower left sternal border and apex. No ectopy. Carotids have brisk upstroke and good pulse volume bilaterally. She had an echocardiogram done in 2012 that showed mild MR and mild TR and was otherwise normal. GI normal to inspection, nondistended, normoactive bowel sounds and non-tender GI Narrative: No guarding with palpation. Extremity no clubbing, cyanosis or edema and no calf tenderness Skin Skin Narrative: No rashes, no skin breakdown. Psych Appearance: grossly normal, appropriate and well kempt Attitude: engaged Activity / Motor Behavior: appropriate eye contact Attention / Concentration: other attention and concentration are mildly impaired. Assessment & Plan Assessment/Plan (1) Debility: (2) Encephalopathy acute: (3) Seizures: (4) PRES (posterior reversible encephalopathy syndrome): (5) Diabetes mellitus type 2 in nonobese: PLAN: Uncontrolled. (6) Benign essential hypertension: (7) Heart murmur, systolic: PLAN: Has not had an ECHO to her knowledge. Denies hx of RF. (8) Acute anemia: (9) Post traumatic stress disorder (PTSD): (10) Irritable bowel syndrome: PLAN: Plan 1. Continue therapy 2. Increase the Prozac to 30 mg daily for anxiety depression. Having sx even on Prozac 20 mg. 3. Decrease Hydralazine to 25 mg TID 4. Make the stool softeners PRN 5. Continue to monitor Accu-Cheks before meals and at bedtime. Charges/Coding Visit Charges Inpatient E&M: 66507 Subs Hosp L1
[2023-09-27 14:10] VITALS: BP 89/47
[2023-09-27 14:12] VITALS: BP 79/47; PULSE 67
[2023-09-27 17:00] VITALS: BP 124/89; PULSE 82
[2023-09-27 17:04] LABS: Bedside Glucose 175 mg/dL (74-106)
[2023-09-27 20:09] VITALS: BP 94/63; PULSE 71; RESP 16; TEMP 36.6; O2SAT 99
[2023-09-27 20:46] LABS: Bedside Glucose 165 mg/dL (74-106)
[2023-09-27] MEDS: Atorvastatin Calcium 20 MG Tablet PO (21:05)
[2023-09-27] MEDS: Lisinopril 40 MG Tablet PO (21:05)
[2023-09-27] MEDS: Insulin Glargine-YFGN 100 UNIT/ML Pen 15 UNIT SC (21:06)
[2023-09-27 21:26] LABS: Bedside Glucose 47 mg/dL (74-106)
[2023-09-27 21:26] LABS: Bedside Glucose 46 mg/dL (74-106)
[2023-09-28] MEDS: Enoxaparin 40 MG/0.4 ML Syringe SC (06:28)
[2023-09-28] MEDS: Arthritis Pain Compound 60 CLICK TUBE TOPICAL ×3 (06:28→21:34)
[2023-09-28 07:19] LABS: Bedside Glucose 159 mg/dL (74-106)
[2023-09-28] MEDS: Insulin Lispro 100 UNIT/ML INSULN.PEN 10 UNIT SC (07:41)
[2023-09-28] MEDS: levETIRAcetam 1,000 MG Tablet 1000 MG PO ×2 (07:43→21:36)
[2023-09-28] MEDS: metFORMIN HCl 500 MG Tablet PO ×2 (07:43→17:01)
[2023-09-28] MEDS: Pantoprazole Sodium 40 MG Tablet PO (07:43)
[2023-09-28] MEDS: Carvedilol 12.5 MG Tablet PO ×2 (07:43→17:00)
[2023-09-28] MEDS: Cholecalciferol (VIT D3) 25 MCG TABLET (1,000 UNITS) 50 MCG PO (07:43)
[2023-09-28] MEDS: Ascorbic Acid 500 MG Tablet 1000 MG PO (07:43)
[2023-09-28] MEDS: FLUoxetine 10 MG Capsule 30 MG PO (07:44)
[2023-09-28] MEDS: amLODIPine 10 MG Tablet PO (07:45)
[2023-09-28] MEDS: Ferrous Sulfate 325 MG Tablet PO (07:46)
[2023-09-28] MEDS: Omega-3 Acid Ethyl Esters 1 GM Capsule PO (07:46)
[2023-09-28] MEDS: tiZANidine HCl 2 MG Tablet PO ×2 (07:47→21:36)
[2023-09-28 08:15] VITALS: BP 129/57; PULSE 70; RESP 18; TEMP 36.7; O2SAT 97
[2023-09-28 11:41] LABS: Bedside Glucose 65 mg/dL (74-106)
[2023-09-28 11:59] LABS: Bedside Glucose 59 mg/dL (74-106)
[2023-09-28 12:28] LABS: Bedside Glucose 102 mg/dL (74-106)
[2023-09-28] MEDS: Insulin Lispro 100 UNIT/ML INSULN.PEN SC (13:15)
[2023-09-28 16:21] LABS: Bedside Glucose 79 mg/dL (74-106)
[2023-09-28] MEDS: Insulin Lispro 100 UNIT/ML INSULN.PEN 6 UNIT SC (17:51)
[2023-09-28 18:13] LABS: Bedside Glucose 91 mg/dL (74-106)
[2023-09-28 19:31] VITALS: BP 114/54; PULSE 76; RESP 17; TEMP 36.6; O2SAT 97
[2023-09-28 19:42] LABS: Bedside Glucose 126 mg/dL (74-106)
[2023-09-28] MEDS: Atorvastatin Calcium 20 MG Tablet PO (21:36)
[2023-09-28] MEDS: Lisinopril 40 MG Tablet PO (21:36)
[2023-09-28] MEDS: Insulin Glargine-YFGN 100 UNIT/ML Pen 15 UNIT SC (21:37)
[2023-09-28 21:55] LABS: Bedside Glucose 145 mg/dL (74-106)
[2023-09-28 22:00] VITALS: PULSE 76; RESP 17; O2SAT 97
[2023-09-29] MEDS: Enoxaparin 40 MG/0.4 ML Syringe SC (06:28)
[2023-09-29] MEDS: Arthritis Pain Compound 60 CLICK TUBE TOPICAL ×3 (06:28→21:43)
[2023-09-29 07:03] LABS: Bedside Glucose 125 mg/dL (74-106)
[2023-09-29 07:28] VITALS: BP 130/53; PULSE 69; RESP 16; TEMP 36.6; O2SAT 96
[2023-09-29] MEDS: Ascorbic Acid 500 MG Tablet 1000 MG PO (07:36)
[2023-09-29] MEDS: Carvedilol 12.5 MG Tablet PO ×2 (07:36→17:30)
[2023-09-29] MEDS: Pantoprazole Sodium 40 MG Tablet PO (07:37)
[2023-09-29] MEDS: levETIRAcetam 1,000 MG Tablet 1000 MG PO ×2 (07:37→21:44)
[2023-09-29] MEDS: FLUoxetine 10 MG Capsule 30 MG PO (07:37)
[2023-09-29] MEDS: Omega-3 Acid Ethyl Esters 1 GM Capsule PO (07:37)
[2023-09-29] MEDS: amLODIPine 10 MG Tablet PO (07:37)
[2023-09-29] MEDS: tiZANidine HCl 2 MG Tablet PO ×2 (07:38→21:44)
[2023-09-29] MEDS: metFORMIN HCl 500 MG Tablet PO ×2 (07:38→17:30)
[2023-09-29] MEDS: Cholecalciferol (VIT D3) 25 MCG TABLET (1,000 UNITS) 50 MCG PO (07:38)
[2023-09-29] MEDS: Insulin Lispro 100 UNIT/ML INSULN.PEN 6 UNIT SC ×3 (07:39→17:30)
[2023-09-29 11:27] LABS: Bedside Glucose 228 mg/dL (74-106)
--- NOTE | 2023-09-29 12:34 | PCM.PROGNOTE ---
Subjective Subjective Afebrile VSS-blood pressures are better with discontinuing the hydralazine. Blood pressure this morning is 130/53 and last night at bedtime it was 114/54. Heart rate is within normal limits. Maintaining appropriate oxygen saturation on RA Oral intake - FOOD good FLUIDS adequate Blood sugar record was reviewed. She was hypoglycemic again yesterday and the mealtime insulin was once again adjusted. Blood sugar at at bedtime was 145 and the FBS today is 125. Prior to lunch the blood sugar is 228. Discussed with nursing -had several loose bowel movements yesterday but by 8 PM diarrhea had resolved. She has a history of alternating diarrhea and constipation. Reviewed the THERAPY notes Medication list reviewed. Antihypertensives include Coreg 12.5 mg twice daily, lisinopril 40 mg daily and as needed hydralazine. Has not required any as needed hydralazine over the past 48 hours. Diabetic medications include glargine 50 units SQ nightly, lispro 6 units 3 times daily, metformin 500 mg twice daily Neck pain has improved with the arthritis compounded cream, K-pad and low-dose Zanaflex. Denies pain in her arms. Denies cephalgia, lightheadedness, chest pain, shortness of breath, palpitations, nausea/vomiting/abdominal pain, dysuria and calf tenderness. Objective Data Objective Data Vital Signs: Vital Signs Temp Pulse Resp BP Pulse Ox O2 Del Method 97.8 F 69 16 130/53 H 96 Room Air 09/29/23 07:28 09/29/23 07:28 09/29/23 07:28 09/29/23 07:28 09/29/23 07:28 09/29/23 07:28 Oxygen Delivery Method Room Air Weight: 151 lb 14.376 oz Body Mass Index (BMI) 26.9 Intake & Output: Intake and Output for Last 24 Hours 09/27/23 09/28/23 09/29/23 23:59 23:59 23:59 Intake Total 200 / 200 Output Total 350 / 350 Balance -150 / -150 Lab / Micro Data 09/30/23 05:35 09/30/23 05:35 Labs: Laboratory Results - last 24 hr 09/28/23 16:01: POC Glucose 79 09/28/23 17:50: POC Glucose 91 09/28/23 19:24: POC Glucose 126 H 03/30/24 21:36: POC Glucose 145 H 09/29/23 06:33: POC Glucose 125 H 09/29/23 11:09: POC Glucose 228 H Physical Exam Const alert, oriented x3 and no apparent distress Resp normal respiratory effort and clear to auscultation bilaterally Resp Narrative: Not tachypneic and no conversational dyspnea. Cardio regular rate, regular rhythm and no gallops GI normal to inspection, nondistended, normoactive bowel sounds and non-tender GI Narrative: No guarding with palpation. Extremity no calf tenderness Skin Skin Narrative: No rashes, no skin breakdown. Psych Appearance: appropriate and well kempt Attitude: engaged Activity / Motor Behavior: appropriate eye contact Assessment & Plan Assessment/Plan (1) Debility: (2) Encephalopathy acute: (3) Seizures: (4) PRES (posterior reversible encephalopathy syndrome): (5) Diabetes mellitus type 2 in nonobese: (6) Acute anemia: (7) Diabetic neuropathy, painful: PLAN: Plan 1. Continue therapy 2. Adjust insulin regimen 3. Check a H&H and BMP in the a.m. 4. Encouraged increased fluid intake Charges/Coding Visit Charges Inpatient E&M: 25868 Subs Hosp L1
[2023-09-29 16:30] LABS: Bedside Glucose 97 mg/dL (74-106)
[2023-09-29 19:28] VITALS: BP 121/61; PULSE 69; RESP 16; TEMP 36.6; O2SAT 99
[2023-09-29 20:28] VITALS: PULSE 71; RESP 16; O2SAT 96
[2023-09-29] MEDS: Lisinopril 40 MG Tablet PO (21:44)
[2023-09-29] MEDS: Insulin Glargine-YFGN 100 UNIT/ML Pen 15 UNIT SC (21:44)
[2023-09-29] MEDS: Atorvastatin Calcium 20 MG Tablet PO (21:44)
[2023-09-29 22:35] LABS: Bedside Glucose 177 mg/dL (74-106)
[2023-09-30] MEDS: Arthritis Pain Compound 60 CLICK TUBE TOPICAL ×3 (05:43→21:34)
[2023-09-30] MEDS: Enoxaparin 40 MG/0.4 ML Syringe SC (05:43)
[2023-09-30 05:49] LABS: Hematocrit 32.9 % (37-47); Hemoglobin 10.3 g/dL (12.0-15.0)
[2023-09-30 06:12] LABS: Anion Gap 5 (5-15); BUN 27 mg/dL (7-18); BUN/Creat Ratio 25.7 RATIO (10-20); Calcium,Total 9.3 mg/dL (8.5-10.1); Chloride 107 mmol/L (98-107); Creatinine, Serum 1.05 mg/dL (0.55-1.02); EST Glomerular Filtration Rate 56 mL/min (>60); Est Glom Filt Rate - Afr Amer 68 mL/min (>60); Estimated Creatinine Clearance 48.59 ml/min; Glucose 178 mg/dL (74-106); Potassium 4.4 mmol/L (3.5-5.1); Sodium Level 138 mmol/L (136-145)
[2023-09-30 06:42] LABS: Bedside Glucose 159 mg/dL (74-106)
[2023-09-30 07:09] VITALS: BP 105/68; PULSE 70; RESP 16; TEMP 36.2; O2SAT 97
[2023-09-30] MEDS: Cholecalciferol (VIT D3) 25 MCG TABLET (1,000 UNITS) 50 MCG PO (07:55)
[2023-09-30] MEDS: FLUoxetine 10 MG Capsule 30 MG PO (07:55)
[2023-09-30] MEDS: Pantoprazole Sodium 40 MG Tablet PO (07:55)
[2023-09-30] MEDS: Insulin Lispro 100 UNIT/ML INSULN.PEN 6 UNIT SC ×2 (07:55→17:46)
[2023-09-30] MEDS: Ascorbic Acid 500 MG Tablet 1000 MG PO (07:55)
[2023-09-30] MEDS: Ferrous Sulfate 325 MG Tablet PO (07:56)
[2023-09-30] MEDS: Carvedilol 12.5 MG Tablet PO ×2 (07:56→17:46)
[2023-09-30] MEDS: Omega-3 Acid Ethyl Esters 1 GM Capsule PO (07:56)
[2023-09-30] MEDS: amLODIPine 10 MG Tablet PO (07:56)
[2023-09-30] MEDS: metFORMIN HCl 500 MG Tablet PO ×2 (07:56→17:46)
[2023-09-30] MEDS: levETIRAcetam 1,000 MG Tablet 1000 MG PO ×2 (07:56→21:34)
[2023-09-30] MEDS: tiZANidine HCl 2 MG Tablet PO (07:56)
--- NOTE | 2023-09-30 10:31 | PN_ITS ---
Subjective Subjective More was seen on team rounds today. Her Jeff was present in the room. All their questions were answered to their satisfaction. Afebrile VSS-blood pressure is well-controlled with no hypotension. Heart rate is within normal limits. Maintaining appropriate oxygen saturation on RA Oral intake - FOOD good FLUIDS adequate The blood sugar record was reviewed. Blood sugar at at bedtime was 177 and the fasting this morning was 159. Currently getting 6 units with meals and 15 of Glargine at HS. She is also on Metformin 500 mg BID. Discussed with nursing - Last night she c/o neck pain again. It was doing better with arthritis cream, muscle relaxer and K pad. Saturday night she denied any pain. Reviewed the THERAPY notes Medication list reviewed. Hemoglobin is 10.3 and stable. Sodium, potassium, serum bicarb are all normal. The BUN is 27 with a creatinine of 1.05, up from 0.86 on 09/26/2023. More is c/o pain in her feet (BL) that increases as the day goes on. She also has some numbness in her feet. She denies neck pain, CP, SOB, palpitations, N/V/abd pain, dysuria and calf pain. Mood is good and she is sleeping well at night. We were discussing what she had for breakfast. She had Cheerios, and Pashto muffin and jelly. When I pointed out that Cheerios and an Pashto muffing are both carbs she was shocked. She really has no idea what carbohydrates are and how to control her carb intake. She is agreeable to talking with the quality improvement coordinator (rn) and I notified the quality improvement coordinator (rn) of the consult. Jeff believes that More was not taking her medications properly prior to PRES. She keeps all her pills in a 7 day pillbox but, she takes 1 pill from each box once a day and this is how she is taking her medications. Jeff tells us that More has always been impulsive and disorganized with a poor memory. We talked about ADD sx and he agrees that this may be part of the problem. When she was taking the Valium and [place] I suspect she forgot to take her other medications. Jeff brought in all of her medications and the pill box......impossible to tell looking at the pill box if she was taking her medications properly or not. ST will work with her on properly setting up a pill box and will ask Bill to supervise for the first couple weeks after DC. She was not taking Prozac prior to the recent event. Objective Data Objective Data Vital Signs: Vital Signs Temp Pulse Resp BP Pulse Ox O2 Del Method 97.2 F L 70 16 105/68 97 Room Air 09/30/23 07:09 09/30/23 07:09 09/30/23 07:09 09/30/23 07:09 09/30/23 07:09 09/30/23 07:09 Oxygen Delivery Method Room Air Weight: 151 lb 14.376 oz Body Mass Index (BMI) 26.9 Intake & Output: Intake and Output for Last 24 Hours 09/28/23 09/29/23 09/30/23 23:59 23:59 23:59 Intake Total 700 / 700 Output Total 350 / 350 Balance 350 / 350 Lab / Micro Data 09/30/23 05:35 09/30/23 05:35 Labs: Laboratory Results - last 24 hr 09/29/23 11:09: POC Glucose 228 H 09/29/23 16:05: POC Glucose 97 09/29/23 21:43: POC Glucose 177 H 09/30/23 05:35: Hgb 10.3 L, Hct 32.9 L, Sodium 138, Potassium 4.4, Chloride 107, Carbon Dioxide 26.0, Anion Gap 5, BUN 27 H, Creatinine 1.05 H, Estim Creat Clear Calc 48.59, Est GFR (MDRD) Af Amer 68, Est GFR (MDRD) Non-Af 56 L, BUN/Creatinine Ratio 25.7 H, Glucose 178 H, Calcium 9.3 09/30/23 05:41: POC Glucose 159 H Physical Exam Const alert, oriented x3 and no apparent distress General Appearance: cooperative HEENT Mouth: dry mucous membranes Resp normal respiratory effort and clear to auscultation bilaterally Resp Narrative: Not tachypneic and no conversational dyspnea. Cardio regular rate, regular rhythm and no gallops GI normal to inspection, nondistended, normoactive bowel sounds and non-tender GI Narrative: No guarding with palpation. Extremity no calf tenderness General Extremity: Negative for edema Skin Skin Narrative: No rashes, no skin breakdown. Psych Appearance: appropriate and well kempt Attitude: engaged Activity / Motor Behavior: appropriate eye contact Assessment & Plan Assessment/Plan (1) Debility: (2) Encephalopathy acute: (3) Seizures: (4) PRES (posterior reversible encephalopathy syndrome): (5) Diabetes mellitus type 2 in nonobese: (6) Acute anemia: (7) Diabetic neuropathy, painful: (8) Post traumatic stress disorder (PTSD): (9) Irritable bowel syndrome: QUALIFIERS: Irritable bowel syndrome type: with both diarrhea and constipation Qualified Code(s): K58.2 - Mixed irritable bowel syndrome (10) Noncompliance with diabetes treatment: (11) ADD (attention deficit disorder): QUALIFIERS: Hyperactivity presence: absent Qualified Code(s): F98.8 - Other specified behavioral and emotional disorders with onset usually occurring in childhood and adolescence PLAN: Plan 1. Continue therapy 2. Change the diet to a 1700-calorie, carb consistent, cardiac healthy diet 3. Dietitian consulted for education/teaching on controlling carbs 4. Adjust mealtime insulin to 8 units with breakfast, 4 units with lunch and 6 units with supper. 5. encouraged her to increase her fluid intake. 6. Add Neurontin 100 mg twice daily to the current drug regimen for suspected diabetic neuropathy. 7. DC the Prozac since it was recently started. Will try Wellbutrin for ADD. Continue to monitor the BP closely. Charges/Coding Visit Charges Inpatient E&M: 31306 Subs Hosp L2
[2023-09-30 11:35] LABS: Bedside Glucose 209 mg/dL (74-106)
--- NOTE | 2023-09-30 13:10 | CASEMGMT ---
Social Work IDT meeting with patient and family at bedside. Per therapies, the patient functional ability is improving. Patient was notified of insurance estimated discharge date of 10/05/2023. Patient anticipates discharge home with outpatient physical therapy. The patient informed care team that she will be unable to drive due to seizures. The patient was notified by care team that transportation can be provided by hospital to [facility]. Patient's is also agreeable to assist with transportation pending the schedule. The patient and is agreeable to outpatient therapy for physical therapy and speech. The patient is agreeable to [facility] for outpatient follow. Patient inquired about healthcare coverage for outpatient. Patient is unsure what her supplemental insurance will cover. patient and to follow up with supplemental plan to determine outpatient coverage. SW to follow up with patient to assistance with transition of care planning. Home with outpatient therapy [facility]/PT services. VALERIE Torres
[2023-09-30] MEDS: Insulin Lispro 100 UNIT/ML INSULN.PEN SC (13:30)
[2023-09-30 17:02] LABS: Bedside Glucose 81 mg/dL (74-106)
[2023-09-30] MEDS: Gabapentin 100 MG Capsule PO (17:46)
[2023-09-30 20:00] VITALS: BP 127/72; PULSE 71; RESP 18; TEMP 36.4; O2SAT 94
[2023-09-30] MEDS: Atorvastatin Calcium 20 MG Tablet PO (21:33)
[2023-09-30] MEDS: Lisinopril 40 MG Tablet PO (21:33)
[2023-09-30] MEDS: buPROPion 75 MG Tablet PO (21:34)
[2023-09-30] MEDS: Insulin Glargine-YFGN 100 UNIT/ML Pen 15 UNIT SC (21:37)
[2023-09-30 21:49] LABS: Bedside Glucose 165 mg/dL (74-106)
[2023-10-01] MEDS: Enoxaparin 40 MG/0.4 ML Syringe SC (06:12)
[2023-10-01 06:53] LABS: Bedside Glucose 162 mg/dL (74-106)
[2023-10-01 07:30] VITALS: BP 114/68; PULSE 68; RESP 15; TEMP 36.6; O2SAT 96
[2023-10-01] MEDS: Arthritis Pain Compound 60 CLICK TUBE TOPICAL ×3 (08:06→22:01)
[2023-10-01] MEDS: Omega-3 Acid Ethyl Esters 1 GM Capsule PO (08:07)
[2023-10-01] MEDS: Ascorbic Acid 500 MG Tablet 1000 MG PO (08:07)
[2023-10-01] MEDS: Carvedilol 12.5 MG Tablet PO ×2 (08:07→16:41)
[2023-10-01] MEDS: buPROPion 75 MG Tablet PO ×2 (08:07→22:04)
[2023-10-01] MEDS: metFORMIN HCl 500 MG Tablet PO ×2 (08:07→16:41)
[2023-10-01] MEDS: amLODIPine 10 MG Tablet PO (08:08)
[2023-10-01] MEDS: Pantoprazole Sodium 40 MG Tablet PO (08:08)
[2023-10-01] MEDS: Cholecalciferol (VIT D3) 25 MCG TABLET (1,000 UNITS) 50 MCG PO (08:08)
[2023-10-01] MEDS: levETIRAcetam 1,000 MG Tablet 1000 MG PO ×2 (08:08→22:03)
[2023-10-01] MEDS: Insulin Lispro 100 UNIT/ML INSULN.PEN 8 UNIT SC (08:12)
[2023-10-01] MEDS: Gabapentin 100 MG Capsule PO ×2 (08:41→16:46)
[2023-10-01] MEDS: Insulin Lispro 100 UNIT/ML INSULN.PEN SC (11:59)
[2023-10-01 12:34] LABS: Bedside Glucose 124 mg/dL (74-106)
--- NOTE | 2023-10-01 13:01 | PCM.PROGNOTE ---
Subjective Subjective Afebrile VSS-blood pressure is well-controlled with no hypotension. Heart rate is within normal limits. Maintaining appropriate oxygen saturation on RA Oral intake - FOOD good FLUIDS adequate, not being monitored, mucous membranes are moist The blood sugar record was reviewed. Blood sugar at supper yesterday was 81 and at at bedtime it was 165. The fasting this morning was 162 and the blood sugar at lunch today is 124. Discussed with nursing - no problems that need addressed Reviewed the THERAPY notes - doing well with therapy and does everything asked of her. Medication list reviewed. More denies cephalgia, lightheadedness, chest pain, shortness of breath, palpitations, nausea/vomiting/abdominal pain, dysuria and calf tenderness. She is sleeping well at night. She complains of feeling tired but when I pointed out what she has been through recently with intubation, ICU admission, seizures and PRES she realizes that she is tired for good reason and we are having her do 3 hours of therapy daily. She knows that she will not be allowed to drive until she is 6 months seizure free. She is willing to follow up with endocrinology following DC from rehab. She was seen by the assistant manager bilingual today and received education on diet. She is writing things down so that she can remember them. Objective Data Objective Data Vital Signs: Vital Signs Temp Pulse Resp BP Pulse Ox O2 Del Method 98 F 68 15 114/68 96 Room Air 10/01/23 07:30 10/01/23 07:30 10/01/23 07:30 10/01/23 07:30 10/01/23 07:30 10/01/23 07:30 Oxygen Delivery Method Room Air Weight: 151 lb 14.376 oz Body Mass Index (BMI) 26.9 Intake & Output: Intake and Output for Last 24 Hours 09/29/23 09/30/23 10/01/23 23:59 23:59 23:59 Intake Total 700 / 700 240 / 240 Output Total 350 / 350 100 / 100 200 / 200 Balance 350 / 350 140 / 140 -200 / -200 Lab / Micro Data 09/30/23 05:35 09/30/23 05:35 Labs: Laboratory Results - last 24 hr 09/30/23 16:45: POC Glucose 81 09/30/23 21:30: POC Glucose 165 H 10/01/23 06:35: POC Glucose 162 H 10/01/23 12:01: POC Glucose 124 H Physical Exam Const alert and oriented x3 Constitutional Narrative: Forgetful and sometimes does not finish a thought or a sentence until she goes on to talk about something else. General Appearance: cooperative Resp clear to auscultation bilaterally Cardio regular rate and regular rhythm GI normal to inspection, nondistended, normoactive bowel sounds, soft to palpation and non-tender Extremity no calf tenderness General Extremity: Negative for edema Skin General Skin Exam: Negative for no breakdown Rashes: no rashes Wounds: Negative for wounds noted Neuro Neuro Narrative: No seizures. Assessment & Plan Assessment/Plan (1) Debility: (2) Encephalopathy acute: (3) Seizures: (4) PRES (posterior reversible encephalopathy syndrome): (5) Diabetes mellitus type 2 in nonobese: (6) Acute anemia: (7) Diabetic neuropathy, painful: (8) Post traumatic stress disorder (PTSD): (9) Irritable bowel syndrome: QUALIFIERS: Irritable bowel syndrome type: with both diarrhea and constipation Qualified Code(s): K58.2 - Mixed irritable bowel syndrome (10) Noncompliance with diabetes treatment: (11) ADD (attention deficit disorder): QUALIFIERS: Hyperactivity presence: absent Qualified Code(s): F98.8 - Other specified behavioral and emotional disorders with onset usually occurring in childhood and adolescence PLAN: Plan 1. Continue therapy 2. Add Jardiance 10 mg to the current drug regimen and GLipizide 5 mg BID. DC Lispro at meals and continue Glargine once daily at HS. She has IBS and I do not think she will tolerate a higher dose of Glucophage. Continue to monitor the BS's AC and HS. Start a med dose SSI protocol. 3. Would like to keep medications to twice a day and no more to increase compliance with medication. ST is working with her to teach her how to appropriately set up a pill box. 4. Continue Wellbutrin for ADD 5. Recommend she follow up in diabetic clinic with the dieticians and that she keep a food diary. 6. Has to be seizure free for 6 [address] can drive[address] Her family is making an appt for her to follow up with t neurologist in [place]. spent 43 minutes in the care of this patient today. 30 mins in education about goals for treatment of diabetes, hyperlipidemia and hypertension and also diet education. We reviewed her medications and what they are for. I answered all her questions. The additional 13 minutes was spent reviewing the chart, reviewing the lab and completing documentation. Charges/Coding Visit Charges Inpatient E&M: 90946 Subs Hosp L2
[2023-10-01] MEDS: Empagliflozin 10 MG Tablet PO (14:28)
[2023-10-01] MEDS: glipiZIDE 5 MG Tablet PO (16:41)
[2023-10-01 17:23] LABS: Bedside Glucose 103 mg/dL (74-106)
[2023-10-01 20:35] VITALS: BP 120/70; PULSE 70; RESP 16; TEMP 36.6; O2SAT 97
[2023-10-01] MEDS: Insulin Glargine-YFGN 100 UNIT/ML Pen 15 UNIT SC (22:02)
[2023-10-01] MEDS: Atorvastatin Calcium 20 MG Tablet PO (22:03)
[2023-10-01] MEDS: Lisinopril 40 MG Tablet PO (22:03)
[2023-10-01 22:18] LABS: Bedside Glucose 96 mg/dL (74-106)
[2023-10-02] MEDS: Enoxaparin 40 MG/0.4 ML Syringe SC (06:25)
[2023-10-02 06:37] LABS: Bedside Glucose 81 mg/dL (74-106)
[2023-10-02 06:49] VITALS: O2SAT 97
[2023-10-02] MEDS: Arthritis Pain Compound 60 CLICK TUBE TOPICAL ×3 (07:04→21:52)
[2023-10-02 07:06] VITALS: BP 106/70; PULSE 72; RESP 17; TEMP 36.4; O2SAT 96
[2023-10-02] MEDS: Cholecalciferol (VIT D3) 25 MCG TABLET (1,000 UNITS) 50 MCG PO (08:18)
[2023-10-02] MEDS: Carvedilol 12.5 MG Tablet PO ×2 (08:18→17:13)
[2023-10-02] MEDS: Ferrous Sulfate 325 MG Tablet PO (08:18)
[2023-10-02] MEDS: levETIRAcetam 1,000 MG Tablet 1000 MG PO ×2 (08:18→21:51)
[2023-10-02] MEDS: buPROPion 75 MG Tablet PO ×2 (08:18→21:51)
[2023-10-02] MEDS: Ascorbic Acid 500 MG Tablet 1000 MG PO (08:18)
[2023-10-02] MEDS: Omega-3 Acid Ethyl Esters 1 GM Capsule PO (08:18)
[2023-10-02] MEDS: Pantoprazole Sodium 40 MG Tablet PO (08:18)
[2023-10-02] MEDS: metFORMIN HCl 500 MG Tablet PO ×2 (08:19→17:13)
[2023-10-02] MEDS: Empagliflozin 10 MG Tablet PO (08:19)
[2023-10-02] MEDS: amLODIPine 10 MG Tablet PO (08:19)
[2023-10-02] MEDS: Gabapentin 100 MG Capsule PO ×2 (08:32→17:17)
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
[2023-10-02] MEDS: Insulin Lispro 100 UNIT/ML INSULN.PEN SC (12:07)
[2023-10-02 12:26] LABS: Bedside Glucose 166 mg/dL (74-106)
[2023-10-02] MEDS: glipiZIDE 5 MG Tablet 2.5 MG PO (17:14)
[2023-10-02 17:35] LABS: Bedside Glucose 110 mg/dL (74-106)
[2023-10-02 21:00] VITALS: BP 114/66; PULSE 79; RESP 15; TEMP 36.5; O2SAT 96
[2023-10-02] MEDS: Insulin Glargine-YFGN 100 UNIT/ML Pen 15 UNIT SC (21:50)
[2023-10-02] MEDS: Lisinopril 40 MG Tablet PO (21:51)
[2023-10-02] MEDS: Atorvastatin Calcium 20 MG Tablet PO (21:51)
[2023-10-02 22:20] LABS: Bedside Glucose 138 mg/dL (74-106)
[2023-10-03] MEDS: Enoxaparin 40 MG/0.4 ML Syringe SC (06:49)
[2023-10-03] MEDS: Arthritis Pain Compound 60 CLICK TUBE TOPICAL ×3 (06:49→21:41)
[2023-10-03 06:55] VITALS: O2SAT 97
[2023-10-03 07:09] LABS: Bedside Glucose 140 mg/dL (74-106)
[2023-10-03] MEDS: buPROPion 75 MG Tablet PO ×2 (08:08→21:41)
[2023-10-03] MEDS: Carvedilol 12.5 MG Tablet PO ×2 (08:08→17:12)
[2023-10-03] MEDS: levETIRAcetam 1,000 MG Tablet 1000 MG PO ×2 (08:08→21:41)
[2023-10-03] MEDS: Cholecalciferol (VIT D3) 25 MCG TABLET (1,000 UNITS) 50 MCG PO (08:08)
[2023-10-03] MEDS: Empagliflozin 10 MG Tablet PO (08:09)
[2023-10-03] MEDS: Pantoprazole Sodium 40 MG Tablet PO (08:09)
[2023-10-03] MEDS: Omega-3 Acid Ethyl Esters 1 GM Capsule PO (08:09)
[2023-10-03] MEDS: Ascorbic Acid 500 MG Tablet 1000 MG PO (08:09)
[2023-10-03] MEDS: amLODIPine 10 MG Tablet PO (08:09)
[2023-10-03] MEDS: glipiZIDE 5 MG Tablet 2.5 MG PO ×2 (08:09→17:12)
[2023-10-03] MEDS: metFORMIN HCl 500 MG Tablet PO ×2 (08:09→17:12)
[2023-10-03] MEDS: Gabapentin 100 MG Capsule PO ×2 (08:16→17:12)
[2023-10-03 09:05] VITALS: BP 112/65; PULSE 65; RESP 16; TEMP 36.3; O2SAT 98
--- NOTE | 2023-10-03 09:57 | PN_ITS ---
Subjective Subjective Afebrile VSS-blood pressure is well-controlled. Heart rate is within normal limits. Maintaining appropriate oxygen saturation on RA Oral intake - FOOD good FLUIDS adequate, mucous membranes are moist. The blood sugar record was reviewed. No blood sugars greater than 166 yesterday. At bedtime blood sugar was 138 and the fasting this morning is 140. Discussed with nursing - no problems that need addressed Reviewed the THERAPY notes Medication list reviewed. Antihypertensives include amlodipine 10 mg daily, carvedilol 12.5 mg twice daily and lisinopril 40 mg daily. Diabetic medications include metformin 500 mg twice daily, Jardiance 10 mg daily, glipizide 2.5 mg twice daily and glargine 15 units nightly. Will DC SSI at DC. Still very forgetful. Needs a fair amount of cuing to remember what she wants to say. Asks me the same questions over and over. Already does not want to be taking 3 medications for BP and 3 for control of DM and wonders when some of these can be stopped. We have discussed this with her more than a few times and told her for now BS and BP is well controlled on the current drug regimen but, things may change when she is home. Neck pain is better and she has not been taking the tizanidine since it was made as needed. Has not required any as needed hydralazine. Objective Data Objective Data Vital Signs: Vital Signs Temp Pulse Resp BP Pulse Ox O2 Del Method 97.3 F L 65 16 112/65 98 Room Air 10/03/23 09:05 10/03/23 09:05 10/03/23 09:05 10/03/23 09:05 10/03/23 09:05 10/03/23 09:05 Oxygen Delivery Method Room Air Weight: 151 lb 14.376 oz Body Mass Index (BMI) 26.9 Intake & Output: Intake and Output for Last 24 Hours 10/01/23 10/02/23 10/03/23 23:59 23:59 23:59 Intake Total 150 / 150 300 / 300 Output Total 900 / 900 200 / 200 Balance -750 / -750 -200 / -200 300 / 300 Lab / Micro Data 09/30/23 05:35 09/30/23 05:35 Labs: Laboratory Results - last 24 hr 10/02/23 12:06: POC Glucose 166 H 10/02/23 17:16: POC Glucose 110 H 10/02/23 21:47: POC Glucose 138 H 10/03/23 06:47: POC Glucose 140 H Physical Exam Const alert and oriented x3 Constitutional Narrative: Forgetful and sometimes does not finish a thought or a sentence until she goes on to talk about something else. General Appearance: cooperative Neck no lymphadenopathy, supple, no JVD and no carotid bruits Chest Chest: symmetrical chest wall rise Resp clear to auscultation bilaterally Resp Narrative: Not tachypneic and no conversational dyspnea. Cardio regular rate and regular rhythm GI normal to inspection, nondistended, normoactive bowel sounds, soft to palpation and non-tender GI Narrative: No guarding with palpation. Extremity no calf tenderness General Extremity: Negative for edema Skin Skin Narrative: No rashes, no skin breakdown. General Skin Exam: Negative for no breakdown Rashes: no rashes Neuro oriented x3, CN's II-XII intact bilaterally, moves all extremities, no focal motor deficits and no sensory deficits noted Neuro Narrative: No seizures. Motor Exam: strength 5/5 throughout Assessment & Plan Assessment/Plan (1) Debility: (2) Encephalopathy acute: (3) Seizures: (4) PRES (posterior reversible encephalopathy syndrome): (5) Diabetes mellitus type 2 in nonobese: (6) Acute anemia: (7) Diabetic neuropathy, painful: (8) ADD (attention deficit disorder): QUALIFIERS: Hyperactivity presence: absent Qualified Code(s): F98.8 - Other specified behavioral and emotional disorders with onset usually occurring in childhood and adolescence PLAN: Plan 1. Continue therapy 2. BMP, TSH, cortisol, B12 and HH in a.m. 3. Will recommend that her double check her pillboxes because I have serious doubts about her ability to be accurate with the medications. 4. will suggest an OP evaluation to r/o DIXON as etiology of resistant HTN 5. We are currently treating for suspected ADD with Wellbutrin but, I am wondering if she does not have early onset dementia or prolonged encephalopathy from PRES? 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 She is going to have follow up with neurology. She is concerned about the number of medications she is taking. I am going to stop the Wellbutrin and allow neurology to medicate for ADD vs early onset dementia vs encephalopathy due to recent PRES. 6. Avoid any medications that can cause sedation or altered mental status going forward. she gets much more confused with things like Valium and [place]. 7. she tells me that she is having less pain in her feet at night since the Gabapentin was started. She also tells me that the pain is always worse at night. Will change Gabapentin to HS only. Charges/Coding Visit Charges Inpatient E&M: 89130 Subs Hosp L1
[2023-10-03 11:16] LABS: Bedside Glucose 156 mg/dL (74-106)
--- NOTE | 2023-10-03 11:18 | CASEMGMT ---
Social Work SW met with patient to discuss DC plans. Pt chose [facility] for outpatient PT/ST. SW will fax order to [facility]. Pt. stated to have [facility] contact her to schedule appointments. Patient stated her son will be picking her up on 10/05/23 to take her home. SHELBY Najera
[2023-10-03] MEDS: Insulin Lispro 100 UNIT/ML INSULN.PEN SC ×2 (12:11→17:14)
--- NOTE | 2023-10-03 16:18 | CASEMGMT ---
Social Work This worker met with patient and completed discharge IRFPAI BIMS PHQ2 0/2. This worker also reviewed discharge Message from Medicare letter and patient signed. Nyasia RYAN
[2023-10-03 17:00] LABS: Bedside Glucose 157 mg/dL (74-106)
[2023-10-03 19:15] VITALS: BP 101/58; PULSE 74; RESP 16; TEMP 36.6; O2SAT 94
[2023-10-03 20:00] LABS: Bedside Glucose 80 mg/dL (74-106)
[2023-10-03 21:22] LABS: Bedside Glucose 116 mg/dL (74-106)
[2023-10-03] MEDS: Atorvastatin Calcium 20 MG Tablet PO (21:41)
[2023-10-03] MEDS: Lisinopril 40 MG Tablet PO (21:41)
[2023-10-03] MEDS: Insulin Glargine-YFGN 100 UNIT/ML Pen 15 UNIT SC (21:44)
[2023-10-03 22:00] VITALS: PULSE 74; RESP 16; O2SAT 94
[2023-10-04 06:00] VITALS: BMI 26.6
[2023-10-04] MEDS: Enoxaparin 40 MG/0.4 ML Syringe SC (06:45)
[2023-10-04 06:46] LABS: Bedside Glucose 134 mg/dL (74-106)
[2023-10-04] MEDS: Arthritis Pain Compound 60 CLICK TUBE TOPICAL ×3 (06:46→20:51)
[2023-10-04] MEDS: glipiZIDE 5 MG Tablet 2.5 MG PO ×2 (07:53→17:03)
[2023-10-04] MEDS: metFORMIN HCl 500 MG Tablet PO ×2 (07:53→17:05)
[2023-10-04] MEDS: buPROPion 75 MG Tablet PO (07:54)
[2023-10-04] MEDS: Cholecalciferol (VIT D3) 25 MCG TABLET (1,000 UNITS) 50 MCG PO (07:54)
[2023-10-04] MEDS: levETIRAcetam 1,000 MG Tablet 1000 MG PO ×2 (07:54→20:51)
[2023-10-04] MEDS: amLODIPine 10 MG Tablet PO (07:54)
[2023-10-04] MEDS: Pantoprazole Sodium 40 MG Tablet PO (07:54)
[2023-10-04] MEDS: Carvedilol 12.5 MG Tablet PO (07:55)
[2023-10-04] MEDS: Ferrous Sulfate 325 MG Tablet PO (07:55)
[2023-10-04] MEDS: Omega-3 Acid Ethyl Esters 1 GM Capsule PO (07:56)
[2023-10-04] MEDS: Ascorbic Acid 500 MG Tablet 1000 MG PO (07:56)
[2023-10-04] MEDS: Gabapentin 100 MG Capsule PO ×2 (08:36→20:51)
[2023-10-04] MEDS: Empagliflozin 10 MG Tablet PO (08:36)
[2023-10-04 08:49] VITALS: BP 126/66; PULSE 67; RESP 16; TEMP 36.8; O2SAT 95
[2023-10-04 11:24] LABS: Bedside Glucose 143 mg/dL (74-106)
--- NOTE | 2023-10-04 11:56 | DCINST_ITS ---
Discharge Instructions Diet Discharge Diet: - (1700 calorie, carb controlled diet with low salt and low fat. ) Activity Discharge Activity: May Not Drive (You must be seizure free for 6 months before you are allowed to drive. ), May Shower and - (No swimming in a pool alone, hiking alone, frankie diving, bungee jumping or participating in dangerous activities until you have been seizure free for 6 months. ) May resume sexual activity in: No Restrictions Weight Bearing Status: Full weight bearing Dressing / Incision Call your doctor if you observe: Fever of 101 or Higher, Shortness of breath, Dizziness, Fainting spells, Swelling in the ankles, Chest pain, Increased palpitations (irregular heartbeat), Calf discomfort, Uncontrolled pain and - (STROKE symptoms: facial droop, slurred speech, inability to get words out, weakness on 1 side of the body and not the other, numbness on 1 side of the body and not the other, inability to maintain your balance sitting or standing, vertigo. ) Follow Up Care Please Follow Up With: Morgan Levy MD When: 10/22/23 at 2:50 PM. You have an appt on 10/15/23 at 12:[address] Alanis Flores from Neurology. Dr. Alvarado's office (endocrinology) will call you to schedule an appt to manage DM II. Test Results: Test results from this visit will be discussed in further detail at your follow- up appointment, if applicable. Discharge Plan Admission Admit Date/Time: 09/25/23 20:20 Primary Reason for Your Visit: Debility due to PRES with seizure and encephalopathy Attending Provider: Judy Kelly Primary Care Provider: Javier Levy Instructions Patient Instructions: ADD Tx Adult, Diabetes Serving Portion Sizes, Diabetes: Meal Planning, Diabetes Carbs Fats Protein, ED Chronic Kidney Disease (CKD) Additional Instructions / Restrictions: 1. I think you have Adult Attention Deficit disorder. You have a very difficult time focusing and paying attention when people are speaking with you. You often change the topic in the middle of a sentence when I am talking with you. this makes it very hard to remember things, like when to take your medications. You have been started on a medication called Wellbutrin (also called Buproprion). This medication treats ADD. You have been taking it in the hospital and have had no adverse side effects. You have had no seizures while on rehab. It will take some time for the Wellbutrin to start working so be patient. You have been taking Prozac which treats both anxiety and depression. Wellbutrin is an antidepressant that also treats ADD. You may be able to come off Prozac. Please discuss this with Dr. Levy. Wellbutrin can lower seizure threshold but, you have been taking Wellbutrin and have had no seizures. I do not think you will have any more seizures wince the BP is now well controlled. 2. Your BP is well controlled on the medications you are currently taking. The BP meds include amlodipine, Coreg and lisinopril. You will continue to take all these medications until a doctor tells you to change the medications. 3. The blood sugars are now well controlled. You have been on a 1700 calorie, carbohydrate restricted diet. You will need to continue this. I am referring you to an supervisor instrument maintenance (Dr. Adam Alvarado) to help you control your diabetes. Diet and exercise are very important in controlling DM. I recommend you continue to follow up with the dieticians to learn more about how to control your diet and what foods you should eat and should not eat. You are impulsive and sometimes don't make good choices, hopefully treating the attention deficit will help you to be more in control of your decision making. Exercise helps to control blood sugars and I recommend you resume using the treadmill at home. 4. Do to diabetes and uncontrolled high blood pressure you now have stage 3 chronic kidney disease. This is moderate kidney disease and it is very important to control the blood pressure and the blood sugars to prevent the kidney disease from getting any worse. The HGBA1C should be less than 7 and the BP should be less than 130/80. It is also important to control the cholesterol when you are diabetic. There are 2 kinds of cholesterol. LDL is the bad cholesterol and we want this number in diabetics to be 70 or less. HDL is the good cholesterol and we want this number to be > 45. Regular exercise helps to keep the HDL up. You should ALWAYS know what your BP, HGBA1C and LDL is so that you can make sure you are staying within your goals. 5. I believe the seizures were due to the BP being VERY elevated. This causes a condition in the brain called PRES. PRES causes seizures and sudden changes in your mental status with a lot of confusion (this is called encephalopathy). Generally the confusion and the seizures resolve with control of the blood pressure. You have not had any seizures while on rehab. You are going to continue taking the antiseizure medication (called Keppra or LevETIRAcetam) until the neurologist tells you can stop. Generally people with seizures are not allowed to drive until they have been seizure free for 6 months. The neurologist will let you know when it is safe for you to strat driving again. 6. Taking your medications exactly as prescribed is ESSENTIAL to maintaining good health. I recommend you have someone from your family check your pill boxes with you to make sure that you are filling the box correctly. Set alarms on your phone to alert you to when you should be taking your medications. 7. I want you to take your Blood sugar before meals and record the results on a graph to take to your visits with Dr. Levy and Dr. Alvarado so they can see how you have been doing with blood sugar control. I also recommend you get a BP cuff and take your BP a few times each day at different times. Keep a record of the readings to take to your doctor visits. 8. There are psychiatrists who specialize in caring for patients with ADD (attention deficit disorder). It may be a good idea to follow up with a psychiatrist to get control of ADD.......your continued good health depends on you being able to focus so that you can manage you medications. 9. You and your family will likely have questions after you leave rehab. Please do not hesitate to call me with questions until you have your first appt with Dr. Levy. OFFICE: [phone] CELL: [phone] NURSES ST[facility] ON REHAB: [phone] Discharge Orders/Prescriptions Prescriptions: New atorvastatin 20 mg Tablet 20 mg PO QHS Qty: 30 0RF Rx Instructions: TAKE THIS MEDICATION AT SUPPER carvedilol 12.5 mg Tablet 12.5 mg PO BIDCM Qty: 60 0RF Rx Instructions: TAKE THIS MED WITH BREAKFAST AND SUPPER levetiracetam 1,000 mg Tablet 1,000 mg PO BID Qty: 60 0RF Rx Instructions: TAKE WITH BREAKFAST AND SUPPER FOR SEIZURES bupropion HCl 150 mg Tablet Extended Release 24 Hr 150 mg PO DAILY Qty: 30 0RF empagliflozin 10 mg tablet 10 mg PO DAILY Qty: 30 0RF Rx Instructions: TAKE THIS WITH BREAKFAST gabapentin 100 mg Capsule 100 mg PO QHS Qty: 30 0RF Rx Instructions: TAKE AT BEDTIME FOR THE NERVE PAIN IN THE FEET glipizide 5 mg Tablet 2.5 mg PO BID@0730,1630 Qty: 30 0RF Rx Instructions: TAKE 1/2 TAB WITH BREAKFAST AND SUPPER diclofenac sodium [Voltaren Arthritis Pain] 1 % gel 4 g topical BID PRN PRN (Reason: NECK PAIN) Qty: 100 0RF Rx Instructions: APPLY TO THE NECK TWICE A DAY NEEDED FOR NECK PAIN Continued ascorbic acid (vitamin C) 500 mg capsule 1,000 mg PO DAILY Rx Instructions: give at the same time as iron metformin 500 mg tablet 500 mg PO BID Qty: 60 0RF Rx Instructions: TAKE WITH BREAKFAST AND WITH SUPPER omeprazole 40 mg capsule,delayed release(DR/EC) 40 mg PO DAILY Qty: 30 0RF amlodipine [Norvasc] 10 mg tablet 10 mg PO DAILY Qty: 30 0RF Rx Instructions: TAKE THIS MEDICATION IN THE MORNING AFTER BREAKFAST ferrous sulfate [Feosol] 325 mg (65 mg iron) tablet 325 mg PO QODAY Qty: 30 0RF Rx Instructions: TAKE THIS WITH BREAKFAST AND A VITAMIN C lisinopril 40 mg tablet 40 mg PO QHS Qty: 30 0RF Rx Instructions: TAKE WITH SUPPER fluoxetine [Prozac] 20 mg capsule 20 mg PO DAILY Qty: 30 0RF Rx Instructions: TAKE WITH BREAKFAST omega-3 acid ethyl esters [Lovaza] 1 gram capsule 1 cap PO DAILY Qty: 30 0RF cholecalciferol (vitamin D3) [Vitamin D3] 50 mcg (2,000 unit) capsule 50 mcg PO DAILY Qty: 30 0RF insulin degludec 100 unit/mL (3 mL) insulin pen 15 unit subcut QHS Qty: 2 0RF Rx Instructions: 15 UNITS AT BEDTIME Discontinued simvastatin 40 mg tablet 40 mg PO QHS carvedilol [Coreg] 12.5 mg tablet 12.5 mg PO BID Rx Instructions: must administer with a meal/food hydralazine 50 mg tablet 50 mg PO TID levetiracetam [Keppra] 500 mg tablet 500 mg PO BID Referrals / Follow Up: [facility] [Other] - 10/15/23 12:45 pm Javier Levy MD [Primary Care Provider] - 10/22/23 2:50 pm Adam Alvarado MD [Med Staff - Courtesy Staff] - (office to call and make appointment) Disposition Disposition (needs filled in before D/C Order can be placed): Home, Self Care
[2023-10-04 12:23] LABS: Hematocrit 34.4 % (37-47); Hemoglobin 10.7 g/dL (12.0-15.0)
[2023-10-04 12:48] LABS: Anion Gap 7 (5-15); BUN 27 mg/dL (7-18); BUN/Creat Ratio 23.5 RATIO (10-20); Calcium,Total 9.2 mg/dL (8.5-10.1); Chloride 107 mmol/L (98-107); Creatinine, Serum 1.15 mg/dL (0.55-1.02); EST Glomerular Filtration Rate 50 mL/min (>60); Est Glom Filt Rate - Afr Amer 61 mL/min (>60); Estimated Creatinine Clearance 44.18 ml/min; Glucose 111 mg/dL (74-106); Potassium 4.1 mmol/L (3.5-5.1); Sodium Level 138 mmol/L (136-145); Thyroid Stim Hormone (TSH) 0.98 uIU/mL (0.358-3.74)
[2023-10-04 13:05] LABS: Vitamin B12 401 pg/mL (211-911)
--- NOTE | 2023-10-04 15:07 | PCM.DC.SUM ---
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 [Other] - 10/15/23 12:45 pm Morgan Levy MD [Primary Care Provider] - 10/22/23 2:50 pm Adam Alvarado MD [Med Staff - Courtesy Staff] - (office to call and make appointment) Disposition Disposition (needs filled in before D/C Order can be placed): Home, Self Care Charges/Coding Visit Charges Inpatient E&M: 25699 Disch Hosp >30min
[2023-10-04 17:00] VITALS: BP 95/62
[2023-10-04 17:08] LABS: Bedside Glucose 148 mg/dL (74-106)
[2023-10-04 18:00] VITALS: BP 110/52
[2023-10-04 20:42] VITALS: BP 106/70; PULSE 70; RESP 16; TEMP 36.6; O2SAT 97
[2023-10-04] MEDS: Insulin Glargine-YFGN 100 UNIT/ML Pen 15 UNIT SC (20:51)
[2023-10-04] MEDS: Atorvastatin Calcium 20 MG Tablet PO (20:51)
[2023-10-04] MEDS: Lisinopril 40 MG Tablet PO (20:51)
--- NOTE | 2023-10-04 21:00 | NURSING ---
2200 meds given early per pt request.
[2023-10-04 21:04] LABS: Bedside Glucose 93 mg/dL (74-106)
--- NOTE | 2023-10-05 03:02 | NURSING ---
Reviewed and agree with Payal MCMILLAN, documentation and assessment charting.
[2023-10-05] MEDS: Enoxaparin 40 MG/0.4 ML Syringe SC (06:33)
[2023-10-05] MEDS: Arthritis Pain Compound 60 CLICK TUBE TOPICAL (06:33)
[2023-10-05 06:54] LABS: Bedside Glucose 122 mg/dL (74-106)
[2023-10-05] MEDS: metFORMIN HCl 500 MG Tablet PO (07:23)
[2023-10-05] MEDS: glipiZIDE 5 MG Tablet 2.5 MG PO (07:23)
[2023-10-05] MEDS: Ascorbic Acid 500 MG Tablet 1000 MG PO (07:24)
[2023-10-05] MEDS: levETIRAcetam 1,000 MG Tablet 1000 MG PO (09:23)
[2023-10-05] MEDS: amLODIPine 10 MG Tablet PO (09:24)
[2023-10-05] MEDS: Omega-3 Acid Ethyl Esters 1 GM Capsule PO (09:24)
[2023-10-05] MEDS: Empagliflozin 10 MG Tablet PO (09:24)
[2023-10-05] MEDS: Cholecalciferol (VIT D3) 25 MCG TABLET (1,000 UNITS) 50 MCG PO (09:24)
[2023-10-05] MEDS: Pantoprazole Sodium 40 MG Tablet PO (09:24)
[2023-10-05] MEDS: buPROPion (XL) 150 MG TABLET.XL PO (09:25)
[2023-10-05 09:54] VITALS: BP 119/70; PULSE 71; RESP 16; TEMP 36.6; O2SAT 98
== END 2023-10-05 11:25 | disposition home or self-care (01) | DRG 100 ==
PROVIDERS: Admitting Provider Internal Medicine; PCP Family Medicine; Visit Provider Internal Medicine
DX: G40.901 Epilepsy, unspecified, not intractable, with status epilepticus (principal); I67.83 Posterior reversible encephalopathy syndrome; E11.42 Type 2 diabetes mellitus with diabetic polyneuropathy; E11.22 Type 2 diabetes mellitus with diabetic chronic kidney disease; D64.9 Anemia, unspecified; E55.9 Vitamin D deficiency, unspecified; N18.31 Chronic kidney disease, stage 3a; Z79.4 Long term (current) use of insulin; I12.9 Hypertensive chronic kidney disease with stage 1 through stage 4 chronic kidney disease, or unspecified chronic kidney disease; K58.2 Mixed irritable bowel syndrome; E78.2 Mixed hyperlipidemia; K21.9 Gastro-esophageal reflux disease without esophagitis; M15.9 Polyosteoarthritis, unspecified; F41.9 Anxiety disorder, unspecified; F43.10 Post-traumatic stress disorder, unspecified; R01.1 Cardiac murmur, unspecified; Z79.84 Long term (current) use of oral hypoglycemic drugs; Z87.891 Personal history of nicotine dependence; Z79.899 Other long term (current) drug therapy; Z91.119 Patient's noncompliance with dietary regimen due to unspecified reason; F98.8 Other specified behavioral and emotional disorders with onset usually occurring in childhood and adolescence
CPT/HCPCS: 72040; 80048; 80053; 82533; 82607; 82962; 83735; 84100; 84443; 85014; 85018; 85027; 92507; 92523; 92610; 94668; 96125; 97110; 97112; 97116; 97129; 97130; 97162; 97166; 97530; 97535; 97802

== ENCOUNTER → 2023-11-02 | Outpatient (CLI) | payer MEDICARE, BC, SELFPAY ==
--- NOTE | 2023-11-02 08:55 | MRI_ITS ---
STUDY: MRI BRAIN WITHOUT CONTRAST REASON FOR EXAM: Female, 63 years old. PARTIAL SYMTOMATIC EPILEPSY; PRES (POST REVERS ENCEPH SYNDROME) TECHNIQUE: Standardized multiplanar fat and water weighted pulse sequences were obtained. COMPARISON: None. FINDINGS: Normal size of the ventricles and extra-axial spaces for the patient''s age. Normal white matter tracts of the supratentorial brain. There is no evidence for recent intracranial ischemia or other cause of cytotoxic edema on diffusion weighted imaging (DWI). Normal T2* images of the brain without demonstrated susceptibility artifact. There is no demonstrated hemosiderin stain. Normal bilateral basal ganglia. Normal thalami. There is no extra-axial fluid accumulation. Normal flow voids within the major intracranial circulation suggesting patency by spin echo criteria. Normal sella turcica, pituitary gland, infundibular stalk, optic chiasm and hypothalamus. Normal tectal plate and pineal gland. Normal midbrain, lb and medulla. Normal cerebellum. Normal basal cisterns. Normal bilateral temporal bones. Normal bilateral internal auditory canals. There are bilateral ocular lens implants with otherwise normal intraorbital contents. Normal visualized paranasal sinuses. Normal calvarium and skull base. Normal visualized soft tissue structures. Normal visualized upper cervical spine. MRI/Brain without Contrast IMPRESSION: Normal unenhanced MRI of the brain. Electronically Signed: Mateusz Sewell MD at 22:27 EDT ,
== END | disposition home or self-care (01) ==
LOC: MRI 08:48
PROVIDERS: PCP Family Medicine; Referring Provider Psychiatry & Neurology Neurology; Visit Provider Psychiatry & Neurology Neurology
DX: I67.83 Posterior reversible encephalopathy syndrome (principal)
CPT/HCPCS: 70551

== ENCOUNTER 2024-02-04 14:30 | Outpatient (RCR) | payer MEDICARE, BC, SELFPAY ==
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
--- NOTE | 2023-10-11 16:01 | HP.SP.EV_ITS ---
Visit History Visit Info Date of Eval: 10/11/23 Visit: 1 Patient's Approved Number of Visits: 10 Shuttler Car: AWAIS Padilla Attending Doctor: Referring Doctor: Reason for Referral: DEBILITY,ENCEPHALOPATHY/RX HERE Previous speech therapy: Yes Results: Discharge speech therapy summary: Pt was given the Brief Cognitive Assessment Test - Form A on initial evaluation 8 days ago. The patient scored 37/50, indicating mild cognitive impairment. The patient demonstrated numerous issues in the areas of attention, organization, distractibility, emotional reactivity, working memory, planning and sequencing. Deficits identified when coupled w/ a conversational interview where the patient self-identified statements that did/did not apply to her re: impulsivity, distractibility, emotional self-control, time blindness, gratification seeking behaviors, working memory, self-reflection, restlessness/ inattention, task initiation /inhibition and organization, were more consistent w/ characteristics /symptoms of unmanaged ADHA in adults/ females. Skilled ST intervention has focused on improving selfawareness/ recognition of deficits and implementation of compensatory strategies to improve executive functions. The patient repeated the Brief Cognitive Assessment Tool - Form B this date w/ this SOCIAL WORK PROGRAM COORDINATOR encouraging the patient to use all of the strategies she has been instructed upon during her ~[address] services. The patient was able to slow down, double check, selfidentify & correct errors and used compensatory strategies - association, generating a sentence/ acronyms/ association to recall words/ pictures and external aids (using fingers to count/keep track). The patient's score improved to 46 /50, which is suggestive of normal cognitive functioning. Encourage family to supervise med management to ensure accuracy /adherence to the prescribed regimen. Recommend use of an am/pm pill organizer and setting alarms to serve as a reminder to take am/pm pills and bedtime insulin. Thoroughly discussed stroke risk factors and the importance of consistent med management to reduce risk. No driving at discharge. Recommend consistent use of an external memory aid - notebook, interstate planner, notes application. Recommend continued skilled ST intervention at discharge to address education and compensation re: executive functions to improve accuracy and efficiency w/ cognitive tasks. Other Relevant Medical History/Diagnoses/Surgery: REJI OLIVA is a 63 year old female who participated in a Speech Therapy evaluation at [facility]. She was recently discharged from inpatient rehabilitation at [facility] on 10/05/23 following an admission for an encephalopathy, debility, and two seizures (due to high blood pressure). 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 She states that she has to known the rules of insurances and problem solving errors. She has to stand all day. More is unsure at this time if she will be returning to her job. She is not allowed to drive. She is hoping to have appointments on her 's half days so he can take her. At home her roles include cleaning and laundry and sometimes cooking. Hobbies: likes to bike ride, go on hikes, and spend time with her grandchild. More states that she loves to talk and is a people person. Right now she complaints of memory difficulties and word finding errors. Pt reporting she recently started medication for ADD. Smoking Status: Never smoker Diagnosis Diagnosis: Mild Cognitive-Linguistic Disorder Pain Is pain an issue with your current prescribed condition?: No Personal Preferred language: Bengali Patient Allergies Allergies Allergies: Allergies oxycodone Adverse Reaction (Intermediate, Verified 09/26/23 03:16) Other hallucinations cyclobenzaprine [From Flexeril] Adverse Reaction (Verified 09/13/23 20:09) other Hallucinations CLQT CLQT CLQT Administered: Yes CLQT: Cognitive Linguistic Quick Test (CLQT) is a criterion - referenced assessment designed for adults between the ages of 18 and 89 with known or suspected neurological dysfuntions. The CLQT is to assess strength and weaknesses in five cognitive domains. Severity ratings are within normal limits, mild, moderate, severe deficits. The subtests are as follows: Date: 10/11/23 Attention Attention: WNL Memory Memory: Mild Executive Functions Executive Functions: WNL Language Language: Mild Visuospatial Skills Visuospatial Skills: WNL Composite Severity Rating Composite Severity Rating: Mild Clock Drawing Severity Rating Clock Drawing Severity Rating: WNL CLQT Comments Cognitive Domain Scores: -: ? Personal Facts (memory and language ability): 02/05 (WNL) ? Symbol Cancellation (nonlinguistic task of visual attention and perception, integrity of the upper/lower quadrants of the left/right visual mills): 06/11 ( WNL) ? Confrontation Naming (aphasia, perseveration, verbosity): 04/09 (WNL) ? Clock Drawing (screening of all cognitive domains): 06/12 (WNL) ? Story Retelling (memory and comprehension, arousal, attention, storage capacity, narrative skills): 11/07 (BELOW CRITERION CUT OFF) ? Symbol Trails (nonlinguistic task to assess planning, self-monitoring, working memory, and visual attention, and impulsivity): 04/09 (WNL) ? Generative Naming (word retrieval skills, perseveration): 11/06 (WNL) ? Design Memory (nonlinguistic task to assess visual discrimination & analysis, attention, and visual memory, impulsivity, perseveration): 11/03 (WNL) ? Mazes (planning, mental flexibility, self-monitoring, visual discrimination, and impulsivity): 01/05 (WNL) ? Design Generation (nonlinguistic task of creativity and mental flexibility): 01/10 (WNL) Severity Rating Domain Scores: Attention = 193/215 (WNL); Memory = 141/185 (MILD; ON THE LOW END OF MILD, ALMOST MODERATE); Executive Functioning = 29/40 (WNL); Language = 28/37 (MILD;); Visuospatial Skills = 92/105 (WNL); Clock Drawing = 06/12 (WNL). Reference: Neuro-QoL instrument Radiation Oncology Patient Plan Plan Plan: Will recommend Pt for weekly outpatient speech therapy to address mild cog nitive-linguistic impairment characterized by deficits in immediate and short- term memory and word retrieval. Pt would benefit from training in compensatory strategies for recall and word retrieval, as well as cognitive training to improve cognitive functioning. Without skilled ST services, the Pt is at risk for decreased independence completing daily living tasks and returning to [facility]. Recommendations Treatment Warranted: Yes Treatment Warranted: Receptive/ Expressive Language and Cognition Progress Prognosis: Excellent Frequency Frequency: 1-2x /Week Additional (Frequency): 2x/week for 30 min OR 1x/week for 60 min. Duration: 3 Months Goals that are Established Determination:: Goals will be added/modified as deemed necessary and appropriate. Therapy will be discontinued when results of re-evaluation indicate therapy is no longer needed or lack of progress has been documented. Goal #1-5 Goal #1: Omre will demonstrate use of word finding strategies (e.g., circumlocution, semantic feature analysis) to complete complex convergent and divergent naming tasks with 85% acc independently across 3 measured opportunities. Goal #2: More will modify environment at home via implementing memory compensatory strategies within the time frame of her POC. Goal #3: More will complete basic to mod complex immediate, short-term, and working memory tasks with 80% acc independently across 3 measured opportunities. Goal #4: More will independently complete medication management tasks with 1 or less errors across 3 measured opportunities. Education Patient has Indicated that the Following Identified Educational Needs: None The Patient has indicated that they have no educational or learning abilities that may effect their care.: Yes Patient Instruction Patient Education: Diagnosis, Treatment Plan and Goals Person Taught: Patient Teaching Method: Discussion and Demonstration Response to teaching: Return demonstration and Verbalize understanding
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
--- NOTE | 2024-02-04 15:53 | HP.SP.DC ---
ST Discharge Summary Discharged: Discharge: REJI OLIVA is a 63 year old female who was seen for initial cognitive-linguistic evaluation at [facility] on 10/11/23 s/p participating in inpatient rehab after dx of encephalopathy and seizures. Pt attended 9 additional consecutive sessions following initial evaluation to target attention, word retrieval, divergent naming, problem solving/reasoning, memory, executive functioning, and safety awareness. Following re-evaluation of Pt?s goal progress, current level of cognitive function and self-report, Pt deemed appropriate for d/c from speech therapy at this time and at baseline function. Pt provided w/home carry over activities to continue targeting complex executive functioning tasks and also reminders of her word finding strategies. She does benefit from the memory strategies we've put into place on her phone to attend to her medications and insulin. Suspect Pt's dx of ADHD is contributing to other areas of concern like moving between tasks quickly or difficulty with task initiation at home. Pt agreeing. Discussed if she starts working or driving again and notices cognitive difficulties with these tasks, then it would be appropriate for her to return to therapy to problem solve new strategies for these areas. Pt discharged from speech therapy caseload on this date, 02/04/24. Thank you for allowing me to participate in the care of your Pt. Will reevaluate at Pt?s request following script from physician.
== END 2024-02-04 19:00 | disposition home or self-care (01) ==
LOC: SP 14:30
PROVIDERS: PCP Family Medicine; Referring Provider Internal Medicine; Visit Provider Internal Medicine
DX: R53.81 Other malaise (principal); G93.40 Encephalopathy, unspecified; R47.01 Aphasia; R41.841 Cognitive communication deficit
CPT/HCPCS: 92507; 97110; 97162; 97530

== ENCOUNTER → 2024-05-18 | Outpatient (CLI) | payer MEDICARE, BC, SELFPAY | END | disposition home or self-care (01) | PROVIDERS: PCP Family Medicine; Referring Provider Psychiatry & Neurology Neurology; Visit Provider Psychiatry & Neurology Neurology | DX: G40.209 Localization-related (focal) (partial) symptomatic epilepsy and epileptic syndromes with complex partial seizures, not intractable, without status epilepticus (principal) | CPT/HCPCS: 95819 ==

== ENCOUNTER 2024-07-26 17:16 | Inpatient (IN) | payer MEDICARE, BC, SELFPAY ==
[2024-07-26] VITALS (10 sets, daily range): BP systolic 60–125; BP diastolic 39–67; PULSE 73–91; RESP 14–18; TEMP 36.1–36.8; O2SAT 85–100; BMI 24.6; BMI 24.0
[2024-07-26] MEDS: 0.9% Normal Saline (1000mL) 1,000 ML 1000 ML IV (17:30)
--- NOTE | 2024-07-26 17:32 | EX.ED.DYSGE1 ---
HPI History of Present Illness Chief Complaint: Syncope [facility] Medical History Chronic renal failure, stage 3a Post traumatic stress disorder (PTSD) Heart murmur, systolic Irritable bowel syndrome PRES (posterior reversible encephalopathy syndrome) Tobacco dependence in remission Osteoporosis Rectocele Incomplete uterovaginal prolapse Diabetes mellitus type 2 in nonobese Osteoarthritis (arthritis due to wear and tear of joints) GIB (gastrointestinal bleeding) Noncompliance with diabetes treatment Mixed hyperlipidemia Benign essential hypertension Polyneuropathy due to type 2 diabetes mellitus Skin cancer H/O transfusion of whole blood Vitamin D deficiency Liver disease Home Medications ?Medication ?Instructions ?Recorded ?Last Taken ?Type ascorbic acid (vitamin C) 500 mg 1,000 mg PO DAILY supp 09/25/23 Unknown History capsule amlodipine 10 mg tablet (Norvasc) 10 mg PO DAILY bp #30 tabs 10/04/23 Unknown Rx atorvastatin 20 mg tablet 20 mg PO QHS #30 tabs 10/04/23 Unknown Rx bupropion HCl 150 mg 24 hr tablet, 150 mg PO DAILY #30 tabs 10/04/23 Unknown Rx extended release fluoxetine 20 mg capsule (Prozac) 20 mg PO DAILY mood #30 caps 10/04/23 Unknown Rx gabapentin 100 mg capsule 100 mg PO QHS #30 caps 10/04/23 Unknown Rx metformin 500 mg tablet 500 mg PO BID dm #60 tabs 10/04/23 Unknown Rx omega-3 acid ethyl esters 1 gram 1 cap PO DAILY supp #30 caps 10/04/23 Unknown Rx capsule (Lovaza) cholecalciferol (vitamin D3) 50 25 mcg PO DAILY vitamin 01/31/24 Unknown History mcg (2,000 unit) capsule (Vitamin D3) pantoprazole 40 mg tablet,delayed 40 mg PO DAILY 01/31/24 Unknown History release (Protonix) insulin lispro 100 unit/mL 5 unit subcut TID 05/07/24 Unknown History subcutaneous pen (Humalog KwikPen (U-100) Insulin) levetiracetam 1,000 mg tablet 500 mg PO BID 05/07/24 Unknown History lisinopril 20 1 tab PO QDAY 05/07/24 Unknown History mg-hydrochlorothiazide 12.5 mg tablet omeprazole 40 mg capsule,delayed 40 mg PO QDAY 05/07/24 Unknown History release insulin glargine 100 unit/mL (3 5 unit subcut QPM 07/26/24 Unknown History mL) subcutaneous pen (Lantus Solostar U-100 Insulin) Allergy/AdvReac Type Severity Reaction Status Date / Time oxycodone AdvReac Intermediate Other Verified 07/26/24 17:16 cyclobenzaprine (From AdvReac other Verified 07/26/24 17:16 Flexeril) Family History Father Arthritis Diabetes Myocardial infarction, Onset Age: 63 Heart disease Hypertension Sister Arthritis Diabetes Brother Diabetes Mental disorder Mother Hypertension Migraines Cerebral hemorrhage Surgical History H/O: hysterectomy History of hip surgery History of tubal ligation History of rectal sphincterotomy History of colonoscopy Status post surgical removal of malignant neoplasm of skin H/O: Social History household members: spouse number of children: 2 current occupational status: employed 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 alcohol intake: never substance use type: does not use caffeine: Yes what type of physical activity do you participate in: none frequency: does not exercise EXAM Physical Exam Const Vital Signs: 07/26/24 17:17 07/26/24 17:38 07/26/24 18:16 Temperature 97.0 F L Temperature Source Oral Pulse Rate 91 73 Respiratory Rate 16 16 Respiratory Effort Normal Non-Labored Respiratory Pattern Normal Blood Pressure 60/39 L 105/67 Blood Pressure Mean 46 79 Pulse Ox 100 100 Oxygen Delivery Method Room Air Room Air Oxygen Flow Rate (L/min) 07/26/24 18:42 07/26/24 18:43 07/26/24 19:00 Temperature Temperature Source Pulse Rate 74 74 Respiratory Rate 14 14 Respiratory Effort Respiratory Pattern Blood Pressure 105/54 L Blood Pressure Mean 71 Pulse Ox 85 100 100 Oxygen Delivery Method Room Air Nasal Cannula Oxygen Flow Rate (L/min) 2 07/26/24 20:00 07/26/24 21:00 Temperature Temperature Source Pulse Rate 75 75 Respiratory Rate 17 17 Respiratory Effort Respiratory Pattern Blood Pressure 108/55 L 112/57 L Blood Pressure Mean 72 75 Pulse Ox 100 98 Oxygen Delivery Method Room Air Oxygen Flow Rate (L/min) [facility] [place] [facility] [place] Medical decision making narrative: HISTORY OF PRESENT ILLNESS: 64-year-old female presents with syncope at home. Notes just prior to arrival associated lightheaded dizzy and weak. Per she is he has noted more pallor over the last few days. She states when she passed out she did not hit her head or injure self. She notes her neck pain has been ongoing for months intermittently. She notes it is worse today just prior to passing out. She denies any other prodromal symptoms including chest pain, shortness of breath, palpitations. She notes dark stools over the last week. She notes history of GI bleed and anemia. No she never found a diagnosis for a GI bleed as she did not undergo a colonoscopy or endoscopy. She notes she supposed to get the pill. But decided to not go through with it. REVIEW OF SYSTEMS: Pertinent positives: Syncope, neck pain Pertinent negatives: Vomiting, upper extremity weakness PHYSICAL EXAM: Nursing triage notes reviewed, Vital signs reviewed Constitutional: please see mdm HENT: MMM, mucosal pallor noted Eyes: Pupils equal round and reactive to light, Extraocular muscles intact Neck: No stridor, no JVD, full neck ROM, trachea midline, no carotid bruits, no midline step-offs deformities to the cervical spine noted Lungs: Clear to auscultation, No wheezing or rales. No increased work of breathing, no conversational dyspnea, no accessory muscle use, no nasal flaring. No respiratory distress noted Heart: Regular rate and rhythm, No murmurs, No rubs and No gallops, 2+ distal pulses (radial, femoral, posterior tibial) in all extremities Abdomen: Soft, there is no tenderness, rigidity, rebound or guarding, no obvious peritoneal signs, no palpable pulsatile abdominal masses, no auscultated abdominal bruit : No CVAT Extremities: No edema Neuro: R alert, oriented to person place and time. intact 5/5 strength with ok sign (median), intact finger abduction (ulnar) intact wrist extension (radial n). Intact sensation in the radial, ulnar, and median nerve distributions. Skin: Significant pallor noted MEDICAL DECISION MAKING: Chief Complaint: Neck pain, syncope External records reviewed: Reviewed prior imaging: Reviewed abdominal aortic ultrasound from August 2023 which showed no evidence of abdominal aortic aneurysm. Remote stress test 2011. Remote echocardiogram 2011 Factors affecting care: Anemia, CKD, ADD, hypertension, type 2 diabetes, PRES Social determinants of health: none History obtained from others: patient's Consults: Gastroenterology (Dr. Khan who noted he could see the patient if need be), internal medicine (Dr. Pérez accepted the patient to PCU under observation) MDM Narrative: The patient was initially hypotensive otherwise afebrile and nontoxic-appearing. Significant pallor noted. I considered the following differential diagnosis: Hemorrhagic shock, hypovolemic shock, cardiogenic shock, Neurogenic shock There is no report of significant trauma to suggest neurogenic shock. No TTP over thoracic lumbar spine. Given report neck pain I did obtain imaging of the neck. I also obtained additional labs images to further assess if there is sign of hemorrhage, hypokalemia, myocardial ischemia ALL IMAGES (IF OBTAINED) HAVE BEEN PERSONALLY REVIEWED AND INTERPRETED BY MYSELF. EKG with normal sinus rhythm, left axis deviation, normal intervals, no STEMI High-sensitivity troponin is negative, no evidence of myocardial ischemiax2 CBC with significant anemia, noted approximate 3 g/dL drop in hemoglobin from last study. No leukocytosis or thrombocytopenia noted No coagulopathy noted CMP with mild hyponatremia, baseline kidney function, no signs hepatobiliary obstruction CT scan of the cervical spine, CT scan of the head were negative for acute traumatic injury I have personally reviewed the patient's chest x-ray. Chest x-ray is unremarkable for pulmonary edema, pneumothorax, pneumonia or focal cardiopulmonary abnormality. X-ray of the patient's foot was read, reviewed, interpreted by myself was negative for acute fracture dislocation Hemoccult surprisingly negative On reevaluation patient blood pressure improved after 1 L normal saline to 112/57. The synthesis of the patient's history, physical exam, labs images suggest likely hemorrhagic shock as patient's hemoglobin has dropped markedly from prior study. Despite having a negative Hemoccult test I do suspect is having a GI bleed given her report of dark stools, severe anemia, elevated BUN. Discussed with GI doctor who can see the patient if she decompensates. Discussed with hospitalist will admit the patient. The patient and/or family, caregivers express understanding. The patient and/or family, caregivers agrees with the plan. Shared decision making: I will have a discussion with the patient and or visitors regarding risk/benefits of further testing or admission. They will be made aware of of the risk/benefits inherent in this decision they will be given the opportunity to voice understanding. Total critical care time today provided was at least 0 minutes. This excludes separately billable procedures. Critical care time (if documented) is secondary to the patient having high probability of clinically significant/life threatening deterioration in the patient's condition which required my urgent intervention. Impression: 1. Hypotension 2. Anemia 3. History of GI bleed 4. Syncope Dispo: Admit This note was generated with [employer] dictation software. It may contain incorrect words, spelling, and punctuation that were not noted in review of the chart prior to signing. Lab Data Labs: Laboratory Results - last 24 hr 07/26/24 07/26/24 07/26/24 17:18 17:32 20:16 WBC 11.0 RBC 2.87 L Hgb 7.9 L Hct 23.6 L MCV 82.2 MCH 27.5 MCHC 33.5 RDW Std Deviation 42.5 RDW Coeff of Shameka 14.7 H Plt Count 318 MPV 9.8 Immature Gran % (Auto) 0.400 Neut % (Auto) 46.0 L Lymph % (Auto) 47.8 H [place] % (Auto) 4.6 Eos % (Auto) 0.9 Baso % (Auto) 0.3 Absolute Neuts (auto) 5.1 Absolute Lymphs (auto) 5.23 H Nucleated RBC % 0 Differential Comment SCANNED PT 12.9 INR 1.0 APTT 24.4 Sodium 135 L Potassium 3.7 Chloride 100 Carbon Dioxide 24.0 Anion Gap 11 BUN 34 H Creatinine 1.44 H Estim Creat Clear Calc 33.06 Est GFR (MDRD) Af Amer 47 L Est GFR (MDRD) Non-Af 39 L BUN/Creatinine Ratio 23.6 H Glucose 223 H Calcium 9.3 Total Bilirubin 0.40 AST 11 L ALT 13 Alkaline Phosphatase 95 Troponin I High Sens < 3 L 3 Total Protein 7.1 Albumin 3.3 Globulin 3.8 Albumin/Globulin Ratio 0.9 POC Glucose 213 H Radiography Diagnostic Testing: Clinical Impression(s) from Imaging Studies Brain CT 07/26/24 17:44 IMPRESSION: 1. Mild degenerative changes of the mandibular condyles. 2. No acute intracranial abnormality. Electronically Signed: Giovanni Paz MD at 18:55 EST , Cervical Spine CT 07/26/24 17:44 IMPRESSION: (NOT LISTED IN ORDER OF SIGNIFICANCE) Degenerative changes in the cervical spine at C5-6 and C6-7. Grade 1 anterolisthesis at C4-5. Electronically Signed: Giovanni Paz MD at 19:04 EST , Chest X-Ray 07/26/24 18:06 IMPRESSION: No radiographic evidence of acute cardiopulmonary disease. Electronically Signed: Giovanni Paz MD at 18:56 EST , Foot X-Ray 07/26/24 18:06 IMPRESSION: Negative right foot x-rays. Electronically Signed: Giovanni Paz MD at 18:55 EST , Discharge Plan Triage Chief Complaint: Syncope ED Provider: David Daniels Dx/Rx/DC Orders Prescriptions: No Action cholecalciferol (vitamin D3) [Vitamin D3] 50 mcg (2,000 unit) capsule 25 mcg PO DAILY pantoprazole [Protonix] 40 mg tablet,delayed release (DR/EC) 40 mg PO DAILY levetiracetam 1,000 mg tablet 500 mg PO BID Rx Instructions: TAKE WITH BREAKFAST AND SUPPER FOR SEIZURES lisinopril-hydrochlorothiazide 20-12.5 mg tablet 1 tab PO QDAY omeprazole 40 mg capsule,delayed release(DR/EC) 40 mg PO QDAY insulin lispro [Humalog KwikPen Insulin] 100 unit/mL insulin pen 5 unit subcut TID ascorbic acid (vitamin C) 500 mg capsule 1,000 mg PO DAILY Rx Instructions: give at the same time as iron atorvastatin 20 mg Tablet 20 mg PO QHS Qty: 30 0RF Rx Instructions: TAKE THIS MEDICATION AT SUPPER bupropion HCl 150 mg Tablet Extended Release 24 Hr 150 mg PO DAILY Qty: 30 0RF gabapentin 100 mg Capsule 100 mg PO QHS Qty: 30 0RF Rx Instructions: TAKE AT BEDTIME FOR THE NERVE PAIN IN THE FEET metformin 500 mg tablet 500 mg PO BID Qty: 60 0RF Rx Instructions: TAKE WITH BREAKFAST AND WITH SUPPER amlodipine [Norvasc] 10 mg tablet 10 mg PO DAILY Qty: 30 0RF Rx Instructions: TAKE THIS MEDICATION IN THE MORNING AFTER BREAKFAST fluoxetine [Prozac] 20 mg capsule 20 mg PO DAILY Qty: 30 0RF Rx Instructions: TAKE WITH BREAKFAST omega-3 acid ethyl esters [Lovaza] 1 gram capsule 1 cap PO DAILY Qty: 30 0RF insulin glargine [Lantus Solostar U-100 Insulin] 100 unit/mL (3 mL) insulin pen 5 unit subcut QPM Primary Care Provider: Morgan Levy Referrals: Morgan Levy MD [Primary Care Provider] - Print Language: Afghan
[2024-07-26 17:42] LABS: Absolute Lymphocyte Count 5.23 X10^3/uL (0.83-4.51); Absolute Neutrophil Count 5.1 X10^3/uL (2.0-7.7); Basophil# 0.03 X10^3/uL; Basophil% 0.3 % (0-1); Eosinophils% 0.9 % (0-5); Hematocrit 23.6 % (37-47); Hemoglobin 7.9 g/dL (12.0-15.0); Lymphocyte # 5.23 X10^3/ul (0.83-4.51); Lymphocyte % 47.8 % (19-41); Mean Corp Hgb Conc 33.5 g/dL (32-36); Mean Corpuscular Hgb 27.5 pg (27.0-32.0); Mean Corpuscular Volume 82.2 fL (81-99); Mean Platelet Vol. 9.8 fl (6.2-12.0); Monocyte% 4.6 % (0-10); NRBC Flagged by Analyzer 0 % (0-5); Neutrophil # 5.05 X10^3/uL (2.7-7.7); POSITIVE DIFFERENTIAL YES; Platelet Count 318 K/mm3 (150-450); RBC Distribution Width CV 14.7 % (11.6-14.6); RBC Distribution Width SD 42.5 fl (35.1-43.9); Red Blood Count 2.87 M/mm3 (4.2-5.4)
--- NOTE | 2024-07-26 17:43 | EKG12_ITS ---
Test Reason : DYSRHYTHMIA Blood Pressure : */* mmHG Vent. Rate : 82 BPM Atrial Rate : 82 BPM P-R Int : 152 ms QRS Dur : 80 ms QT Int : 378 ms P-R-T Axes : 62 -43 27 degrees QTcB Int : 441 ms Normal sinus rhythm Left axis deviation Abnormal ECG Confirmed by KOJO ARIAS, KALEB ([id number]), acquisition editor DAGOBERTO REYNOSO ([id number]) on 07/28/2024 6:22:42 AM Referred By: Mai Pérez Confirmed By: KALEB VARMA MD
--- NOTE | 2024-07-26 17:44 | CT_ITS ---
EXAM: CT HEAD WITHOUT INTRAVENOUS CONTRAST CLINICAL INDICATION: head trauma, syncope TECHNIQUE: Multiple axial images were obtained of the head without intravenous contrast. This CT exam was performed using one or more of the following dose reduction techniques: automated exposure control, adjustment of the mA and/or kV according to patient size, and/or use of iterative reconstruction technique. RADIATION DOSE: CTDIvol = 44.99 mGy, DLP = 829.85 mGy-cm COMPARISON: No relevant prior studies available. FINDINGS: BRAIN AND EXTRA-AXIAL SPACES: Unremarkable. No intra- or extra-axial hemorrhage. No evidence of acute infarct. No intracranial mass or mass effect. There is preservation of the syed/white matter interface. Posterior fossa structures are unremarkable. Ventricles are appropriate for age. No hydrocephalus. Basal cisterns are patent. BONES/JOINTS: Mild degenerative changes of the mandibular condyles. No discrete lytic or blastic abnormalities. SINUSES: Unremarkable as visualized. Clear. MASTOID AIR CELLS: Unremarkable. Clear. ORBITS: Visualized globes, extraocular muscles, optic nerves and retrobulbar fat appear unremarkable. CT/Brain/Head without Contrast IMPRESSION: 1. Mild degenerative changes of the mandibular condyles. 2. No acute intracranial abnormality. Electronically Signed: Giovanni Paz MD at 18:55 EST Reading Location ID and State: [facility] / [place] , Service support ,
--- NOTE | 2024-07-26 17:44 | CT_ITS ---
STUDY: CT Spine Cervical W/O Contrast Injection 07/26/2024 7:02 PM REASON FOR EXAM: Female, 64 years old. NECK PAIN neck pain HISTORY: NECK PAIN neck pain TECHNIQUE: High resolution transaxial imaging was performed without intravenous administration of contrast material. Sagittal and coronal images were reconstructed. Individualized dose optimization techniques were used for this CT. COMPARISON: None FINDINGS: Normal craniovertebral junction. Normal anterior atlantoaxial articulation. Normal odontoid process. Normal cervical lordosis. Normal vertebral bodies and posterior osseous elements. C2-3: Normal endplates. Normal disc height and morphology. Normal central canal and intervertebral neuroforamina. C3-4: Normal endplates. Normal disc height and morphology. Normal central canal and intervertebral neuroforamina. C4-5: Normal endplates. Normal disc height and morphology. Normal central canal and intervertebral neuroforamina. Grade 1 anterolisthesis. This measures 1.8 mm. C5-6: Loss of intervertebral disc height. There is endplate spondylosis of the vertebral body. Normal central canal and intervertebral neuroforamina. There is bilateral facet arthropathy. C6-7: Loss of intervertebral disc height. There is endplate spondylosis of the vertebral body. Normal central canal and intervertebral neuroforamina. There is bilateral facet arthropathy. Discogenic endplate changes. C7-T1: Normal endplates. Normal disc height and morphology. Normal central canal and intervertebral neuroforamina. Normal visualized soft tissue structures. CT/Spine Cervical without Contras IMPRESSION: (NOT LISTED IN ORDER OF SIGNIFICANCE) Degenerative changes in the cervical spine at C5-6 and C6-7. Grade 1 anterolisthesis at C4-5. Electronically Signed: Giovanni Paz MD at 19:04 EST ,
[2024-07-26 17:46] LABS: Differential Indicated SCAN CRITERIA MET
[2024-07-26 17:58] LABS: ALB/GLOB Ratio 0.9 RATIO (0.9-2.4); AST(SGOT) 11 U/L (15-37); Alanine Aminotransfer ALT/SGPT 13 U/L (13-56); Albumin, Serum 3.3 g/dL (3.2-5.0); Alkaline Phosphatase 95 U/L (45-117); Anion Gap 11 (5-15); BUN 34 mg/dL (7-18); BUN/Creat Ratio 23.6 RATIO (10-20); Calcium,Total 9.3 mg/dL (8.5-10.1); Chloride 100 mmol/L (98-107); Creatinine, Serum 1.44 mg/dL (0.55-1.02); EST Glomerular Filtration Rate 39 mL/min (>60); Est Glom Filt Rate - Afr Amer 47 mL/min (>60); Estimated Creatinine Clearance 33.06 ml/min; Globulin 3.8 g/dL (2.2-4.2); Glucose 223 mg/dL (74-106); Potassium 3.7 mmol/L (3.5-5.1); Protein, Total 7.1 g/dL (6.4-8.2); Sodium Level 135 mmol/L (136-145)
[2024-07-26] MEDS: fentaNYL 100 MCG/2 ML Ampul 50 MCG IV (18:00)
[2024-07-26 18:05] LABS: Prothrombin Time (Protime)PT. 12.9 SECONDS (11.7-14.9)
[2024-07-26 18:06] LABS: Partial Thromboplast Time 24.4 Seconds (24.1-36.2)
--- NOTE | 2024-07-26 18:06 | RAD_ITS ---
EXAM: XR RIGHT FOOT COMPLETE, 3 OR MORE VIEWS CLINICAL INDICATION: INJURY TECHNIQUE: Frontal, lateral and oblique views of the right foot. COMPARISON: No relevant prior studies available. FINDINGS: BONES/JOINTS: Unremarkable. No acute fracture. No subluxation. Normal alignment. Preservation of the joint space. No sclerotic or destructive changes observed. SOFT TISSUES: Unremarkable. No soft tissue swelling or gas. No radiopaque foreign body. RAD/Foot min 3 Views IMPRESSION: Negative right foot x-rays. Electronically Signed: Giovanni Paz MD at 18:55 EST ,
--- NOTE | 2024-07-26 18:06 | RAD_ITS ---
EXAM: XR CHEST, 1 VIEW CLINICAL INDICATION: syncope TECHNIQUE: Frontal view of the chest. COMPARISON: 09.17.23 FINDINGS: LUNGS AND PLEURAL SPACES: Unremarkable. No consolidation or edema. No pneumothorax. No effusion. HEART: Unremarkable. Cardiac silhouette not enlarged. MEDIASTINUM: Central airways and mediastinal contour are unremarkable. BONES/JOINTS: Unremarkable. No acute fracture. SOFT TISSUES: Unremarkable. RAD/Chest 1 View (Portable) IMPRESSION: No radiographic evidence of acute cardiopulmonary disease. Electronically Signed: Giovanni Paz MD at 18:56 EST ,
[2024-07-26 18:13] LABS: Differential Comment SCANNED; Troponin-I HS (w/2H Reflex) < 3 pg/mL (3.0-54.0)
[2024-07-26 19:44] LABS: Bedside Glucose 213 mg/dL (74-106)
[2024-07-26 19:57] LABS: Reflex Troponin-HS? (from REC) Y
[2024-07-26 20:42] LABS: Troponin-I HS 3 pg/mL (3.0-54.0)
--- NOTE | 2024-07-26 21:23 | PCM.HP.STD ---
HPI - General General Date of Admission: 07/26/24 Date of Service: 07/26/24 Chief Complaint: Syncopal event. HPI Narrative The patient is a 64 y/o F w/ PMHx: CKD stage IIIa, Diabetes mellitus type II with chronic neuropathy, HTN, HLD, GERD w/ Hx GI bleed, Chronic anemia, Former tobacco use, IBS, PTSD who presents to the [facility] ED on 07/26/24 with onset lightheaded/dizziness with syncopal event at home with collapse with following onset of nausea and significant neck discomfort following her fall noted to be pale upon arrival with patient reported dark black appearing stools over the last 4 to 5 days not on any iron supplementation although she does report she supposed to be taking this but never picked up her medications prompting ED evaluation. She noted upon ED evaluation 1 recent bout of emesis that was normal appearing. She notes chronic constipation history. Workup in the ED included T97, heart rate 91, BP initially 60/39, respiratory rate 16, 100% on room air with most recent repeat vitals heart rate 75, BP 108/52, respiratory rate 17, 100% on room air, CBC with WC 11, hemoglobin 7.9, MCV 82.2, platelet 318 with lymphocytosis, unremarkable coags, CMP with sodium 135, BUN/creatinine 34/1.44, GFR 39, glucose 223, initial troponin 3 with repeat 3, stool guaiac negative, CT of the brain with mild degenerative changes of the mandibular condyles with no acute intracranial abnormality, CT cervical spine with degenerative changes in the cervical spine at C5-6 and C6-7 with grade 1 anterolisthesis at C4-5, chest x-ray with no acute cardiopulmonary findings, plain film of the right foot unremarkable, EKG with sinus rhythm with no acute evidence of ischemia. In the ED patient administered 1 L normal saline, fentanyl 50 mcg IV x 1. ED discussed case with gastroenterology Dr. Khan given concerns for GI bleed. [facility] Medical History Chronic renal failure, stage 3a Post traumatic stress disorder (PTSD) Heart murmur, systolic Irritable bowel syndrome PRES (posterior reversible encephalopathy syndrome) Tobacco dependence in remission Osteoporosis Rectocele Incomplete uterovaginal prolapse Diabetes mellitus type 2 in nonobese Osteoarthritis (arthritis due to wear and tear of joints) GIB (gastrointestinal bleeding) Noncompliance with diabetes treatment Mixed hyperlipidemia Benign essential hypertension Polyneuropathy due to type 2 diabetes mellitus Skin cancer H/O transfusion of whole blood Vitamin D deficiency Liver disease Home Medications ?Medication ?Instructions ?Recorded ?Last Taken ?Type ascorbic acid (vitamin C) 500 mg 1,000 mg PO DAILY supp 09/25/23 Unknown History capsule amlodipine 10 mg tablet (Norvasc) 10 mg PO DAILY bp #30 tabs 10/04/23 Unknown Rx atorvastatin 20 mg tablet 20 mg PO QHS #30 tabs 10/04/23 Unknown Rx bupropion HCl 150 mg 24 hr tablet, 150 mg PO DAILY #30 tabs 10/04/23 Unknown Rx extended release fluoxetine 20 mg capsule (Prozac) 20 mg PO DAILY mood #30 caps 10/04/23 Unknown Rx gabapentin 100 mg capsule 100 mg PO QHS #30 caps 10/04/23 Unknown Rx metformin 500 mg tablet 500 mg PO BID dm #60 tabs 10/04/23 Unknown Rx omega-3 acid ethyl esters 1 gram 1 cap PO DAILY supp #30 caps 10/04/23 Unknown Rx capsule (Lovaza) cholecalciferol (vitamin D3) 50 25 mcg PO DAILY vitamin 01/31/24 Unknown History mcg (2,000 unit) capsule (Vitamin D3) pantoprazole 40 mg tablet,delayed 40 mg PO DAILY 01/31/24 Unknown History release (Protonix) insulin lispro 100 unit/mL 5 unit subcut TID 05/07/24 Unknown History subcutaneous pen (Humalog KwikPen (U-100) Insulin) levetiracetam 1,000 mg tablet 500 mg PO BID 05/07/24 Unknown History lisinopril 20 1 tab PO QDAY 05/07/24 Unknown History mg-hydrochlorothiazide 12.5 mg tablet omeprazole 40 mg capsule,delayed 40 mg PO QDAY 05/07/24 Unknown History release insulin glargine 100 unit/mL (3 5 unit subcut QPM 07/26/24 Unknown History mL) subcutaneous pen (Lantus Solostar U-100 Insulin) Allergy/AdvReac Type Severity Reaction Status Date / Time oxycodone AdvReac Intermediate Other Verified 07/26/24 17:16 cyclobenzaprine (From AdvReac other Verified 07/26/24 17:16 Flexeril) Family History Father Arthritis Diabetes Myocardial infarction, Onset Age: 63 Heart disease Hypertension Sister Arthritis Diabetes Brother Diabetes Mental disorder Mother Hypertension Migraines Cerebral hemorrhage Surgical History H/O: hysterectomy History of hip surgery History of tubal ligation History of rectal sphincterotomy History of colonoscopy Status post surgical removal of malignant neoplasm of skin H/O: Social History household members: spouse number of children: 2 current occupational status: employed 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 alcohol intake: never substance use type: does not use caffeine: Yes what type of physical activity do you participate in: none frequency: does not exercise ROS ROS Narrative Admission Review of Systems: CONSTITUTIONAL: No weight loss, fever, chills, + weakness or fatigue. HEENT: + LH/dizziness, headache. Eyes: No visual loss, blurred vision, double vision or yellow sclerae. Ears, Nose, Throat: No hearing loss, sneezing, congestion, runny nose or sore throat. SKIN: No rash or itching, lesions, wounds. CARDIOVASCULAR: + LH/dizziness/Syncopal event with collapse. No chest pain, chest pressure or chest discomfort, palpitations, edema, orthopnea, syncopal events. RESPIRATORY: No shortness of breath, cough or sputum, wheezing, hemoptysis. GASTROINTESTINAL: + anorexia, nausea with 1 bout emesis (normal appearing), black stools, chronic constipation. No diarrhea, abdominal pain, BRBPR. GENITOURINARY: No dysuria, frequency, urgency or retention. NEUROLOGICAL: + LH/dizziness/syncopal event, headache. No paralysis, ataxia, numbness or tingling in the extremities, focal weakness, change in bowel or bladder control, seizure. MUSCULOSKELETAL: + muscle, back pain, joint pain or stiffness. HEMATOLOGIC: + acute on chronic anemia, active bleeding concerns as noted. LYMPHATICS: No enlarged nodes. No history of splenectomy. PSYCHIATRIC: + Hx PTSD. ENDOCRINOLOGIC: No reports of sweating, cold or heat intolerance. No polyuria or polydipsia. ALLERGIES: No history of asthma, hives, eczema or rhinitis. Vital Signs Vital Signs Vital Signs: 07/26/24 17:17 07/26/24 17:38 07/26/24 18:16 Temperature 97.0 F L Temperature Source Oral Pulse Rate 91 73 Respiratory Rate 16 16 Respiratory Effort Normal Non-Labored Respiratory Pattern Normal Blood Pressure 60/39 L 105/67 Blood Pressure Mean 46 79 Pulse Ox 100 100 Oxygen Delivery Method Room Air Room Air Oxygen Flow Rate (L/min) 07/26/24 18:42 07/26/24 18:43 07/26/24 19:00 Temperature Temperature Source Pulse Rate 74 74 Respiratory Rate 14 14 Respiratory Effort Respiratory Pattern Blood Pressure 105/54 L Blood Pressure Mean 71 Pulse Ox 85 100 100 Oxygen Delivery Method Room Air Nasal Cannula Oxygen Flow Rate (L/min) 2 07/26/24 20:00 Temperature Temperature Source Pulse Rate 75 Respiratory Rate 17 Respiratory Effort Respiratory Pattern Blood Pressure 108/55 L Blood Pressure Mean 72 Pulse Ox 100 Oxygen Delivery Method Room Air Oxygen Flow Rate (L/min) Weight Weight: 134 lb 11.239 oz Body Mass Index (BMI) 24.6 Physical Exam Narrative Physical Examination: General: Awake, alert, oriented x 3 and cooperative, laying in the ED bed, fatigued, not currently lightheaded or dizzy but at rest. Notes neck discomfort and headache improved. Skin: Normal color, normal turgor, no icterus, no cyanosis except occasional stage ecchymoses, abrasion. HEENT: AT/NC, EOMI, PERRLA, mildly dry MM, no carotid bruits or JVD noted. Lungs: Mildly diminished, greater bases, poor effort, no rales, ronchi or wheezing. Heart: Regular rate and rhythm; no gallop, rub audible. Abdomen: Soft, NTTP, ND, hyperactive BS, no no appreciated HSM. Extremities: No cyanosis, clubbing, or edema. Neurological: Patient awake, alert, oriented as noted, cognitive function intact; pupils equally reactive to light and accommodation, cranial nerves grossly normal, moving all 4 extremities, no focal deficits, strength moderately global decrease secondary to acute presentation complaints. Psychiatric: Affect appears fatigued otherwise normal, no acute evidence of depressive or anxiety feelings but does have underlying PTSD history. Results Lab / Micro Data 07/26/24 23:41 07/26/24 17:32 Labs: Laboratory Results - last 24 hr 07/26/24 17:18: POC Glucose 213 H 07/26/24 17:32: WBC 11.0, RBC 2.87 L, Hgb 7.9 L, Hct 23.6 L, MCV 82.2, MCH 27.5, MCHC 33.5, RDW Std Deviation 42.5, RDW Coeff of Shameka 14.7 H, Plt Count 318, MPV 9.8, Immature Gran % (Auto) 0.400, Neut % (Auto) 46.0 L, Lymph % (Auto) 47.8 H, Stevens % (Auto) 4.6, Eos % (Auto) 0.9, Baso % (Auto) 0.3, Absolute Neuts (auto) 5.1, Absolute Lymphs (auto) 5.23 H, Nucleated RBC % 0, Differential Comment SCANNED, PT 12.9, INR 1.0, APTT 24.4, Sodium 135 L, Potassium 3.7, Chloride 100, Carbon Dioxide 24.0, Anion Gap 11, BUN 34 H, Creatinine 1.44 H, Estim Creat Clear Calc 33.06, Est GFR (MDRD) Af Amer 47 L, Est GFR (MDRD) Non-Af 39 L, BUN/Creatinine Ratio 23.6 H, Glucose 223 H, Calcium 9.3, Total Bilirubin 0.40, AST 11 L, ALT 13, Alkaline Phosphatase 95, Troponin I High Sens < 3 L, Total Protein 7.1, Albumin 3.3, Globulin 3.8, Albumin/Globulin Ratio 0.9 07/26/24 20:16: Troponin I High Sens 3 Micro: Microbiology 07/26/24 17:57 Stool Stool Occult Blood (DILIP) - Final Imaging Radiology Impression Brain CT 07/26/24 17:44 IMPRESSION: 1. Mild degenerative changes of the mandibular condyles. 2. No acute intracranial abnormality. Electronically Signed: Giovanni Paz MD at 18:55 EST , Cervical Spine CT 07/26/24 17:44 IMPRESSION: (NOT LISTED IN ORDER OF SIGNIFICANCE) Degenerative changes in the cervical spine at C5-6 and C6-7. Grade 1 anterolisthesis at C4-5. Electronically Signed: Giovanni Paz MD at 19:04 EST , Chest X-Ray 07/26/24 18:06 IMPRESSION: No radiographic evidence of acute cardiopulmonary disease. Electronically Signed: Giovanni Paz MD at 18:56 EST , Foot X-Ray 07/26/24 18:06 IMPRESSION: Negative right foot x-rays. Electronically Signed: Giovanni Paz MD at 18:55 EST , Assessment & Plan Assessment/Plan (1) Syncope: PLAN: Plan The patient is a 64 y/o F w/ PMHx: CKD stage IIIa, Diabetes mellitus type II with chronic neuropathy, HTN, HLD, GERD w/ Hx GI bleed, Chronic anemia, Former tobacco use, IBS, PTSD who presents to the [facility] ED on 07/26/24 with syncopal event at home with nausea and significant neck discomfort following her fall noted to be pale upon arrival with patient reported dark black appearing stools over the last 4 to 5 days not on any iron supplementation although she does report she supposed to be taking this but never picked up her medications prompting ED evaluation. #1. Syncopal Event with significant hypotensive presentation, acute hyponatremia, possibly hypovolemic component however high suspicion for possible acute GI bleed with acute blood loss anemia with acute on chronic normocytic anemia, despite negative stool guaiac with recently reported black appearing stools: EKG in ED w/ sinus rhythm without evidence of acute ischemia, CXR w/ no acute cardiopulmonary findings, CT brain and CT cervical spine with no acute injury identified, initial trop normal and repeat delta unchanged, initial hemoglobin 7.9, MCV 82.2, last noted previous to this 10/04/2023 hemoglobin 10.7 but had trended downward and had previously been as low as hemoglobin 6.3 in 2020.. Will admit to PCU, place on a monitored bed to assure no acute myocardial infarction with serial cardiac enzymes and EKGs as needed however suspicion more elevated for GI bleed with acute blood loss anemia as etiology as has been trending downward since September of the previous year, maintain on fall precautions, maintain on IV fluids, will obtain serial H&H's, will maintain on IV Protonix drip, type and screen initiated for potential future PRBC administration, will allow clears until midnight with n.p.o. status following, gastroenterology consulted and already aware of patient per ED physician. Iron panel, ferritin level also requested. #2. Acute renal insufficiency/elevated creatinine on CKD stage III, unclear subtype per GFR trending: Likely secondary to acute presentation #1, admission BUN/creatinine 34/1.44, GFR 39, baseline creatinine noted previously primarily 0.8-1.2, will judiciously hydrate and repeat CMP in AM. #3. Anxiety depression: Continue patient home fluoxetine and bupropion regimen. #4. Seizure disorder: Will continue patient's home Keppra regimen. #5. Diabetes mellitus type II with chronic neuropathy: Hold oral home regimen, maintain on clears until n.p.o. status at midnight as noted above, accu checks w/ ISS, continue gabapentin regimen. #6. Hypertension: Given significant hypotension upon presentation likely the etiology of syncopal event we will hold all hypertensive medications. #7. Hyperlipidemia: Continue patient on statin therapy. #8. GERD w/ Hx GI bleed: Given concern of possible recurrent GI bleed as noted #1 will maintain on continuous IV Protonix. #9. Former tobacco use: Encourage continued tobacco cessation. #10. DVT prophylaxis: SCDs. #11. CODE status: Patient HCPOA and living will not in place but her who is present would be her medical decision-maker if necessary. Discussed CODE status at length including difference between FULL code, DNR-CCA and DNR-CC status. Following discussions about the differences in these status, requested Full Code status. Charges/Coding Visit Charges Inpatient E&M: 81555 Init Hosp L3
[2024-07-26 23:15] LABS: Ferritin 6 ng/mL (8-252); Iron 19 ug/dL (50-170); Iron Binding Capacity,Total 384 ug/dL (250-450); Magnesium 1.7 mg/dL (1.6-2.6); PERCENT IRON SATURATION 4.9 % (15.0-55.0)
[2024-07-26] MEDS: 0.9% Normal Saline (1000mL) 1,000 ML 100 ML IV (23:22)
[2024-07-26] MEDS: Pantoprazole Sodium 80 MG in 0.9% Normal Saline (50mL Bag) 15 ML 420 MG IV BOLUS (23:27)
[2024-07-26] MEDS: Insulin Lispro 100 UNIT/ML INSULN.PEN SC (23:36)
[2024-07-26] MEDS: Pantoprazole Sodium 80 MG in 0.9% Normal Saline (100mL Bag) 80 ML 10 MG CONT INF (23:41)
[2024-07-26 23:50] LABS: Bedside Glucose 171 mg/dL (74-106)
[2024-07-27] VITALS (15 sets, daily range): BP systolic 103–124; BP diastolic 49–76; PULSE 72–84; RESP 16–18; TEMP 36.2–37; O2SAT 94–100; BMI 28.0
[2024-07-27 00:09] LABS: Hematocrit 20.8 % (37-47)
[2024-07-27 00:22] LABS: Troponin-I HS < 3 pg/mL (3.0-54.0)
[2024-07-27 05:11] LABS: Bedside Glucose 93 mg/dL (74-106)
[2024-07-27 09:20] LABS: Absolute Lymphocyte Count 3.08 X10^3/uL (0.83-4.51); Absolute Neutrophil Count 4.2 X10^3/uL (2.0-7.7); Basophil# 0.02 X10^3/uL; Basophil% 0.3 % (0-1); Eosinophils% 1.3 % (0-5); Hematocrit 28.5 % (37-47); Hemoglobin 9.5 g/dL (12.0-15.0); Lymphocyte # 3.08 X10^3/ul (0.83-4.51); Lymphocyte % 39.6 % (19-41); Mean Corp Hgb Conc 33.3 g/dL (32-36); Mean Corpuscular Hgb 27.3 pg (27.0-32.0); Mean Corpuscular Volume 81.9 fL (81-99); Mean Platelet Vol. 9.1 fl (6.2-12.0); Monocyte# 0.37 X10^3/uL; Monocyte% 4.8 % (0-10); NRBC Flagged by Analyzer 0 % (0-5); Neutrophil # 4.18 X10^3/uL (2.7-7.7); Neutrophil % 53.7 % (47-70); Platelet Count 192 K/mm3 (150-450); RBC Distribution Width CV 15.4 % (11.6-14.6); RBC Distribution Width SD 45.1 fl (35.1-43.9); Red Blood Count 3.48 M/mm3 (4.2-5.4); White Blood Count 7.8 K/mm3 (4.4-11.0)
[2024-07-27] MEDS: Pantoprazole Sodium 80 MG in 0.9% Normal Saline (100mL Bag) 80 ML 10 MG CONT INF ×2 (09:33→18:58)
[2024-07-27 09:52] LABS: ALB/GLOB Ratio 0.9 RATIO (0.9-2.4); AST(SGOT) 8 U/L (15-37); Alanine Aminotransfer ALT/SGPT 11 U/L (13-56); Alkaline Phosphatase 73 U/L (45-117); Anion Gap 5 (5-15); BUN 20 mg/dL (7-18); BUN/Creat Ratio 22.4 RATIO (10-20); Calcium,Total 8.7 mg/dL (8.5-10.1); Chloride 108 mmol/L (98-107); Creatinine, Serum 0.89 mg/dL (0.55-1.02); EST Glomerular Filtration Rate 67 mL/min (>60); Est Glom Filt Rate - Afr Amer 81 mL/min (>60); Estimated Creatinine Clearance 56.83 ml/min; Globulin 3.5 g/dL (2.2-4.2); Glucose 123 mg/dL (74-106); Potassium 3.8 mmol/L (3.5-5.1); Protein, Total 6.5 g/dL (6.4-8.2); Sodium Level 139 mmol/L (136-145)
[2024-07-27] MEDS: levETIRAcetam 500 MG Tablet PO (09:53)
[2024-07-27] MEDS: buPROPion (XL) 150 MG TABLET.XL PO (09:53)
[2024-07-27] MEDS: FLUoxetine 20 MG Capsule PO (09:53)
[2024-07-27 11:12] LABS: Bedside Glucose 140 mg/dL (74-106)
--- NOTE | 2024-07-27 11:45 | CASEMGMT ---
KODI CM Face to Face with patient for initial transition planning/care coordination assessment. RN CM introduced self and role at [facility]. Patient lying in bed, alert and oriented. Patient willing to participate in assessment and is able to answer all questions appropriately. Care providers, pharmacy, and demographics verified. Strata: 2 PCP: Cam Specialists: Mark, neurologist; , electrocardiograph operator; Preferred [facility]acy: [facility] Insurance: [employer], [employer] [facility] [employer] Prescription Benefit: yes Living Will/HPOA: none LNOK: Living Arrangements: Patient lives with in a single story home with 2 steps to enter. Patient states she is independent at home. Transportation: self, DME/HHC: Patient has cane, walker, and glucometer with supplies at home. No previous HHC. Patient has been to [facility] in the past. Patient wishes to discharge home and is unsure of needs at discharge at this time. CM to follow up with patient as she progresses through her care. Patient states she has no further needs or concerns at this time. CM to follow for discharge planning needs that may arise. Disposition Plan: Patient to discharge home with family support and follow-up plans in place. Will monitor for additional needs at discharge. Lou ALEXANDER, RN, CM2
[2024-07-27] MEDS: Ferrous Sulfate 325 MG Tablet PO (12:59)
--- NOTE | 2024-07-27 13:53 | CHAPLAIN ---
Type of Pastoral Visit _x__ Initial Visit ___ Follow-up Visit ___ On-call Visit ___ General Patient Visit ___ Spiritual Assessment ___ Family Conference ___ Bereavement ___ Rapid Response ___ Code Blue ___ Other (describe below) Pastoral Care Referral From _x__ Patient ___ Family ___ Nurse ___ Physician ___ Ship Erector ___ Polymer Scientist ___ Other (describe below) Sacrament/Intervention _x__ Active listening ___ Anointing ___ Islam ___ Bereavement ___ Communion _x__ Destinee exploration ___ _x__ Life review _x__ Prayer ___ Reconciliation ___ Sacrament of Sick _x__ Supportive presence ___ Wedding ___ Other (describe below) Pastoral Comments patient is open to talk about her feelings and how she is coping in the hospital; pt is concerned that she is not getting enough answers yet to satisfy herself; pt talks about her family, her work, and her frustrations with waiting on answers; pt states that she is also worried about how it will be paid for; longer visit and pt is welcoming of prayer too
[2024-07-27] MEDS: Ondansetron 4 MG/2 ML Vial IV (14:16)
[2024-07-27] MEDS: 0.9% Saline Lock 10 ML Syringe IV (14:16)
[2024-07-27 16:58] LABS: Bedside Glucose 118 mg/dL (74-106)
--- NOTE | 2024-07-27 18:49 | EX.PCM.CON.G ---
HPI Consult Data Date of Consult: 07/27/24 HPI Narrative Reason for Consultation: GI bleed HPI Narrative: REJI OLIVA, is a 64 F who presents with lightheadedness and dizziness and a syncopal event. She also noted acute onset of nausea and significant neck discomfort following her fall noted to be pale upon arrival with patient reported dark black appearing stools over the last 4 to 5 days. This happened back in 2019 she was evaluated by Dr. Reis and no etiology of her iron deficiency anemia was seen. She is not on any iron supplementation although she does report she supposed to be taking this but never picked up her medications prompting ED evaluation. She noted upon ED evaluation 1 recent bout of emesis that was normal appearing. She notes chronic constipation history. Workup in the ED included T97, heart rate 91, BP initially 60/39, respiratory rate 16, 100% on room air with most recent repeat vitals heart rate 75, BP 108/52, respiratory rate 17, 100% on room air, CBC with WC 11, hemoglobin 7.9, MCV 82.2, platelet 318 with lymphocytosis, unremarkable coags, CMP with sodium 135, BUN/creatinine 34/1.44, GFR 39, glucose 223, initial troponin 3 with repeat, CT of the brain with mild degenerative changes of the mandibular condyles with no acute intracranial abnormality, CT cervical spine with degenerative changes in the cervical spine at C5-6 and C6-7 with grade 1 anterolisthesis at C4-5, chest x-ray with no acute cardiopulmonary findings, plain film of the right foot unremarkable, EKG with sinus rhythm with no acute evidence of ischemia. [facility] Medical History Chronic renal failure, stage 3a Post traumatic stress disorder (PTSD) Heart murmur, systolic Irritable bowel syndrome PRES (posterior reversible encephalopathy syndrome) Tobacco dependence in remission Osteoporosis Rectocele Incomplete uterovaginal prolapse Diabetes mellitus type 2 in nonobese Osteoarthritis (arthritis due to wear and tear of joints) GIB (gastrointestinal bleeding) Noncompliance with diabetes treatment Mixed hyperlipidemia Benign essential hypertension Polyneuropathy due to type 2 diabetes mellitus Skin cancer H/O transfusion of whole blood Vitamin D deficiency Liver disease Home Medications ?Medication ?Instructions ?Recorded ?Last Taken ?Type ascorbic acid (vitamin C) 500 mg 1,000 mg PO DAILY supp 09/25/23 Unknown History capsule amlodipine 10 mg tablet (Norvasc) 10 mg PO DAILY bp #30 tabs 10/04/23 Unknown Rx atorvastatin 20 mg tablet 20 mg PO QHS #30 tabs 10/04/23 Unknown Rx bupropion HCl 150 mg 24 hr tablet, 150 mg PO DAILY #30 tabs 10/04/23 Unknown Rx extended release fluoxetine 20 mg capsule (Prozac) 20 mg PO DAILY mood #30 caps 10/04/23 Unknown Rx gabapentin 100 mg capsule 100 mg PO QHS #30 caps 10/04/23 Unknown Rx metformin 500 mg tablet 500 mg PO BID dm #60 tabs 10/04/23 Unknown Rx omega-3 acid ethyl esters 1 gram 1 cap PO DAILY supp #30 caps 10/04/23 Unknown Rx capsule (Lovaza) cholecalciferol (vitamin D3) 50 25 mcg PO DAILY vitamin 01/31/24 Unknown History mcg (2,000 unit) capsule (Vitamin D3) insulin lispro 100 unit/mL 5 unit subcut TID 05/07/24 Unknown History subcutaneous pen (Humalog KwikPen (U-100) Insulin) lisinopril 20 1 tab PO QDAY 05/07/24 Unknown History mg-hydrochlorothiazide 12.5 mg tablet omeprazole 40 mg capsule,delayed 40 mg PO QDAY 05/07/24 Unknown History release insulin glargine 100 unit/mL (3 5 unit subcut QPM 07/26/24 Unknown History mL) subcutaneous pen (Lantus Solostar U-100 Insulin) levetiracetam 500 mg tablet 250 mg PO Q12H SEIZURE 07/27/24 Unknown History Allergy/AdvReac Type Severity Reaction Status Date / Time oxycodone AdvReac Intermediate Other Verified 07/26/24 17:16 cyclobenzaprine (From AdvReac other Verified 07/26/24 17:16 Flexeril) Family History Father Arthritis Diabetes Myocardial infarction, Onset Age: 63 Heart disease Hypertension Sister Arthritis Diabetes Brother Diabetes Mental disorder Mother Hypertension Migraines Cerebral hemorrhage Surgical History H/O: hysterectomy History of hip surgery History of tubal ligation History of rectal sphincterotomy History of colonoscopy Status post surgical removal of malignant neoplasm of skin H/O: Social History household members: spouse number of children: 2 current occupational status: employed 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 alcohol intake: never substance use type: does not use caffeine: Yes what type of physical activity do you participate in: none frequency: does not exercise Physical Exam Const alert, oriented x3, no apparent distress and healthy appearing General Appearance: cooperative GI normal to inspection, nondistended, normoactive bowel sounds, soft to palpation, non-tender and non-distended Percussion: normal to percussion Rectal Exam: deferred Lab / Micro Data 07/27/24 09:00 07/27/24 09:00 Labs: Laboratory Results - last 24 hr 07/26/24 17:18: POC Glucose 213 H 07/26/24 17:30: Blood Type O NEGATIVE, Antibody Screen NEGATIVE, Crossmatch See Detail 07/26/24 20:16: Magnesium 1.7, Iron 19 L, TIBC 384, Iron Saturation 4.9 L, Ferritin 6 L, Troponin I High Sens 3 07/26/24 23:30: POC Glucose 171 H 07/26/24 23:41: Hgb 7.0 L, Hct 20.8 L, Troponin I High Sens < 3 L 07/27/24 04:27: POC Glucose 93 07/27/24 09:00: WBC 7.8, RBC 3.48 L, Hgb 9.5 L, Hct 28.5 L, MCV 81.9, MCH 27.3, MCHC 33.3, RDW Std Deviation 45.1 H, RDW Coeff of Shameka 15.4 H, Plt Count 192, MPV 9.1, Immature Gran % (Auto) 0.300, Neut % (Auto) 53.7, Lymph % (Auto) 39.6, [place] % (Auto) 4.8, Eos % (Auto) 1.3, Baso % (Auto) 0.3, Absolute Neuts (auto) 4.2, Absolute Lymphs (auto) 3.08, Nucleated RBC % 0, Sodium 139, Potassium 3.8, Chloride 108 H, Carbon Dioxide 26.0, Anion Gap 5, BUN 20 H, Creatinine 0.89, Estim Creat Clear Calc 56.83, Est GFR (MDRD) Af Amer 81, Est GFR (MDRD) Non-Af 67, BUN/Creatinine Ratio 22.4 H, Glucose 123 H, Calcium 8.7, Total Bilirubin 0.80, AST 8 L, ALT 11 L, Alkaline Phosphatase 73, Total Protein 6.5, Albumin 3.0 L, Globulin 3.5, Albumin/Globulin Ratio 0.9 07/27/24 10:54: POC Glucose 140 H 07/27/24 16:36: POC Glucose 118 H Micro: Microbiology 07/26/24 17:57 Stool Stool Occult Blood (DILIP) - Final Imaging Radiology Impression Brain CT 07/26/24 17:44 IMPRESSION: 1. Mild degenerative changes of the mandibular condyles. 2. No acute intracranial abnormality. Electronically Signed: Giovanni Paz MD at 18:55 EST Reading Location ID and State: [facility] / [place] , Service support , Cervical Spine CT 07/26/24 17:44 IMPRESSION: (NOT LISTED IN ORDER OF SIGNIFICANCE) Degenerative changes in the cervical spine at C5-6 and C6-7. Grade 1 anterolisthesis at C4-5. Electronically Signed: Giovanni Paz MD at 19:04 EST Reading Location ID and State: [facility] / [place] , Service support , Chest X-Ray 07/26/24 18:06 IMPRESSION: No radiographic evidence of acute cardiopulmonary disease. Electronically Signed: Giovanni Paz MD at 18:56 EST Reading Location ID and State: [facility] / [place] , Service support , Foot X-Ray 07/26/24 18:06 IMPRESSION: Negative right foot x-rays. Electronically Signed: Giovanni Paz MD at 18:55 EST Reading Location ID and State: [facility] / [place] , Service support , Assessment & Plan Assessment/Plan (1) Syncope: PLAN: Plan The patient is a 64 y/o F w/ Hx GI bleed, Chronic anemia, who presents to the [facility] ED on 07/26/24 with syncopal event at home with nausea and significant neck discomfort following her fall. Patient reported dark black appearing stools over the last 4 to 5 days not on any iron supplementation although she does report she supposed to be taking this but never picked up her medications prompting ED evaluation. Syncopal Event with significant hypotensive presentation, acute hyponatremia, possibly hypovolemic component however high suspicion for possible acute GI bleed with acute blood loss anemia with acute on chronic normocytic anemia. Differential diagnosis for GI bleed acute on chronic will be gastric antral vascular ectasia, Sander's erosions, peptic ulcer disease, age dysplasia, telangiectasia, neoplasia. She will need to undergo an upper and lower endoscopy to evaluate upper lower GI tract. She will also need to get checked for celiac disease. She was explained alternatives, risk and benefits include not withstanding bleeding, infection, sepsis, perforation, need for return to . She will an ASA of 3. Charges/Coding Visit Charges Inpatient E&M: 13068 Init Hosp L3
[2024-07-27] MEDS: Bisacodyl 5 MG Tablet 20 MG PO (18:59)
--- NOTE | 2024-07-27 19:27 | PN.HOSP_ITS ---
Reason for Visit Reason for Visit: Syncope Subjective Subjective Patient is a 64-year-old white female presents emergency department was from hospital on 07/26/2024 after syncopal event. Patient reported she had sudden onset of lightheadedness and collapse following the onset of nausea. She did complain of some neck discomfort after her fall and was pale on arrival to the emergency department. The patient reported that she had developed black stools over the last 4 to 5 days prior to presentation and had not been on any iron supplementations. She is not on any anticoagulation and does not take NSAIDs frequently. She reported 1 bout of emesis that did not have any blood contained in it. She does have a history of chronic constipation. She is never had anything like this previous. Vital signs on presentation showed temperature of 97, heart rate 91, blood pressure initially was 60/39 with a repeat of 108/52, respiratory was 17 and oxygen saturation was 100% on room air. CBC showed a mild leukocytosis with a white count of 11, hemoglobin was 7.9 with a normal MCV, coags were normal. CMP was relatively unremarkable other than hyperglycemia with a glucose of 223 but she is diabetic. Initial troponin was 3 with a delta of 3. Stool guaiac was negative. With her syncopal episode a CT of her brain was performed and was negative for any acute findings. CT of the cervical spine was negative for any acute findings. Chest x-ray was unremarkable. Right foot x-ray was unremarkable. Upon review of her hemoglobin it appears that she has been running between 10 and 11 most recently however she was in the 13-14 range in early 2023. Case was discussed with Dr. Khan by the emergency department given her significant drop in hemoglobin and request for admission with plans for EGD and colonoscopy were recommended. Patient states she is really no longer had any stool with blood in it as she has had no further stools. She again denied NSAID use and is not on any anticoagulation. Objective Data Objective Data Vital Signs: Vital Signs Temp Pulse Resp BP Pulse Ox O2 Del Method O2 Flow Rate 97.3 F L 79 18 118/74 98 Room Air 2 07/27/24 17:38 07/27/24 17:38 07/27/24 17:38 07/27/24 17:38 07/27/24 17:38 07/27/24 17:39 07/26/24 18:43 Oxygen Flow Rate (L/min) 2 Oxygen Delivery Method Room Air Weight: 69.6 kg Body Mass Index (BMI) 28.0 Intake & Output: Intake and Output for Last 24 Hours 07/25/24 07/26/24 07/27/24 23:59 23:59 23:59 Intake Total 1035 / 1035 1518.84 / 1518.84 Output Total 0 / 0 1050 / 1050 Balance 1035 / 1035 468.84 / 468.84 Lab / Micro Data 07/27/24 09:00 07/27/24 09:00 Labs: Laboratory Results - last 24 hr 07/26/24 17:18: POC Glucose 213 H 07/26/24 17:30: Blood Type O NEGATIVE, Antibody Screen NEGATIVE, Crossmatch See Detail 07/26/24 20:16: Magnesium 1.7, Iron 19 L, TIBC 384, Iron Saturation 4.9 L, F erritin 6 L, Troponin I High Sens 3 07/26/24 23:30: POC Glucose 171 H 07/26/24 23:41: Hgb 7.0 L, Hct 20.8 L, Troponin I High Sens < 3 L 07/27/24 04:27: POC Glucose 93 07/27/24 09:00: WBC 7.8, RBC 3.48 L, Hgb 9.5 L, Hct 28.5 L, MCV 81.9, MCH 27.3, MCHC 33.3, RDW Std Deviation 45.1 H, RDW Coeff of Shameka 15.4 H, Plt Count 192, MPV 9.1, Immature Gran % (Auto) 0.300, Neut % (Auto) 53.7, Lymph % (Auto) 39.6, [facility] % (Auto) 4.8, Eos % (Auto) 1.3, Baso % (Auto) 0.3, Absolute Neuts (auto) 4.2, Absolute Lymphs (auto) 3.08, Nucleated RBC % 0, Sodium 139, Potassium 3.8, C hloride 108 H, Carbon Dioxide 26.0, Anion Gap 5, BUN 20 H, Creatinine 0.89, Estim Creat Clear Calc 56.83, Est GFR (MDRD) Af Amer 81, Est GFR (MDRD) Non-Af 67, BUN/Creatinine Ratio 22.4 H, Glucose 123 H, Calcium 8.7, Total Bilirubin 0.80, AST 8 L, ALT 11 L, Alkaline Phosphatase 73, Total Protein 6.5, Albumin 3.0 L, Globulin 3.5, Albumin/Globulin Ratio 0.9 07/27/24 10:54: POC Glucose 140 H 07/27/24 16:36: POC Glucose 118 H Micro: Microbiology 07/26/24 17:57 Stool Stool Occult Blood (DILIP) - Final Physical Exam Const alert, oriented x3, no apparent distress, average body habitus, healthy appearing and well nourished Constitutional Narrative: Pleasant, upper middle-aged, white female, sitting up in bed watching television, appears comfortable, nontoxic HEENT head/scalp atraumatic and moist oral mucous membranes Head and Scalp: normocephalic Eyes Negative for conjunctivae normal Eyes Narrative: Mild conjunctival pallor bilaterally, no scleral icterus Resp normal respiratory effort, no retractions, no use of accessory muscles and clear to auscultation bilaterally Auscultation: Negative for rales, rhonchi or wheezes Cardio regular rate, regular rhythm, S1 normal heart sound, S2 normal heart sound, no murmurs, no rub, no gallops and no clicks GI normal to inspection, nondistended, normoactive bowel sounds, soft to palpation and non-tender Extremity no clubbing, cyanosis or edema Extremity Narrative: Pedal pulses are 2+, radial pulses are 2+ Neuro oriented x3, moves all extremities and no focal motor deficits Speech: speech normal Psych affect normal Psych Narrative: Slightly anxious but eye contact is good and patient interacts appropriately Assessment & Plan Assessment/Plan (1) Syncope: (2) Acute anemia: (3) Melena: PLAN: Plan Syncope/lightheadedness -Imaging is unremarkable -EKG was sinus rhythm -Continue to monitor on telemetry but no arrhythmia identified at this time -Highly suspect it is related to her drop in hemoglobin next-continue IV Protonix as ordered -No recurrent events and patient states she is feeling better since transfusion Melena with acute anemia -Baseline hemoglobin early in 2023 appears to run between 12 and 14 since then has been between 10 and 11 -Acutely dropped to 7.0 on presentation and patient was transfused 2 units packed red blood cells -Posttransfusion hemoglobin is 9.5 with correction as expected -Continue IV PPI -BUN and serum creatinine ratio is 23.6 -Will start iron supplementation at discharge -Continue to monitor clinically -GI is consulted and plans for EGD and colonoscopy tomorrow with prep for colon tonight -Patient states she had a colonoscopy and she thinks it is within the last 5 years and denies any known abnormalities at that time -Appreciate GI input Elevated serum creatinine -Baseline appears to be between 0.8 and 1.2 -Serum creatinine today is 0.89 -On presentation was 1.44 -Likely related to dehydration -repeat lab in a.m. with bowel prep Seizure disorder -Continue home AED regimen DM-2 with chronic neuropathy -Can continue home gabapentin -Hold home basal insulin and restart once p.o. diet started -Hold home prandial insulin and restart once p.o. diet has started -Continue SSI -Hold home oral agents History of GERD with history of GI bleed -Hold home omeprazole -Treatment as above Essential hypertension/hyperlipidemia -Continue statin -Patient with hypotension on presentation -Will continue to hold oral antihypertensive agents and reinitiate when appropriate -Restart Lovaza at discharge Depression/anxiety -Continue home Wellbutrin -Continue home Prozac Tobacco abuse -Remote -Encouraged ongoing cessation DVT prophylaxis -continue SCDs -chemoprophylaxis contraindicated due to suspected GI bleed on presentation CODE STATUS -Full code is verified Charges/Coding Visit Charges Inpatient E&M: 66741 Subs Hosp L2
[2024-07-27] MEDS: levETIRAcetam 250 MG Tablet PO (20:28)
[2024-07-27] MEDS: Atorvastatin Calcium 20 MG Tablet PO (20:28)
[2024-07-27] MEDS: Gabapentin 100 MG Capsule PO (20:33)
[2024-07-27] MEDS: Polyethylene Glycol 3350 BOWEL PREP PO (20:34)
[2024-07-27 22:31] LABS: Bedside Glucose 149 mg/dL (74-106)
[2024-07-28] VITALS (13 sets, daily range): BP systolic 118–139; BP diastolic 60–83; PULSE 69–90; RESP 16–18; TEMP 36.1–37.1; O2SAT 96–100; BMI 24.8
[2024-07-28] MEDS: Pantoprazole Sodium 80 MG in 0.9% Normal Saline (100mL Bag) 80 ML 10 MG CONT INF ×2 (04:42→19:36)
[2024-07-28 05:12] LABS: Bedside Glucose 133 mg/dL (74-106)
[2024-07-28 06:06] LABS: Absolute Lymphocyte Count 2.43 X10^3/uL (0.83-4.51); Absolute Neutrophil Count 4.3 X10^3/uL (2.0-7.7); Basophil# 0.03 X10^3/uL; Basophil% 0.4 % (0-1); Eosinophil# 0.11 X10^3/uL; Eosinophils% 1.5 % (0-5); Hematocrit 30.4 % (37-47); Hemoglobin 9.6 g/dL (12.0-15.0); Lymphocyte # 2.43 X10^3/ul (0.83-4.51); Lymphocyte % 33.5 % (19-41); Mean Corp Hgb Conc 31.6 g/dL (32-36); Mean Corpuscular Hgb 26.4 pg (27.0-32.0); Mean Corpuscular Volume 83.7 fL (81-99); Mean Platelet Vol. 9.4 fl (6.2-12.0); Monocyte# 0.38 X10^3/uL; Monocyte% 5.2 % (0-10); NRBC Flagged by Analyzer 0 % (0-5); Neutrophil # 4.29 X10^3/uL (2.7-7.7); Neutrophil % 59.3 % (47-70); Platelet Count 214 K/mm3 (150-450); RBC Distribution Width CV 15.8 % (11.6-14.6); RBC Distribution Width SD 48.3 fl (35.1-43.9); Red Blood Count 3.63 M/mm3 (4.2-5.4); White Blood Count 7.3 K/mm3 (4.4-11.0)
[2024-07-28 06:13] LABS: International Normalized Ratio 1.1; Prothrombin Time (Protime)PT. 14.1 SECONDS (11.7-14.9)
[2024-07-28 06:33] LABS: Anion Gap 7 (5-15); BUN 15 mg/dL (7-18); BUN/Creat Ratio 14.7 RATIO (10-20); Chloride 110 mmol/L (98-107); Creatinine, Serum 1.02 mg/dL (0.55-1.02); EST Glomerular Filtration Rate 58 mL/min (>60); Est Glom Filt Rate - Afr Amer 70 mL/min (>60); Estimated Creatinine Clearance 46.88 ml/min; Glucose 139 mg/dL (74-106); Potassium 4.1 mmol/L (3.5-5.1); Sodium Level 142 mmol/L (136-145)
[2024-07-28 09:27] LABS: Hemoglobin A1c 5.7 % (3.8-5.6)
[2024-07-28 12:15] LABS: Bedside Glucose 129 mg/dL (74-106)
--- NOTE | 2024-07-28 14:49 | PCM.PRE.AN2 ---
ASA Classification* ASA Classification ASA Classification: 3 Assessment & Plan Anesthesia* Anesthesia Assessment Anesthesia Assessment: Discussed sedation and/or anesthesia options, risks, benefits, and alternatives with patient/parents/legal guardian/POA. Questions invited. The patient/parents/legal guardian/POA seems to understand and agrees to proceed with anesthesia plan. Reviewed the physical assessment, medical history, allergy history and patient home medications list prior to surgery/procedure/anesthetic and documented any changes. Performed airway and anesthesia risk assessments. Anesthesia Type Anesthesia Type: MAC History Source History Obtained from:: Patient and Chart Anesthesia Focused Assessment* Temperature: 97.8 F Pulse Rate: 70 Blood Pressure: 132/68 Respiratory Rate: 16 Pulse Ox: 100 Oxygen Delivery Method: Room Air Oxygen Flow Rate (L/min): 2 Airway Assessment Mouth opens: 2 cm Mallampati Score: III Teeth Condition: Missing (Missing 2 lower left molars. Rest are tight.) Neck Range of motion (ROM): Full ROM Focused Labs Anesthesia Preop lab: CBC WBC 7.3 K/mm3 (4.4-11.0) 07/28/24 05:16 RBC 3.63 M/mm3 (4.2-5.4) L 07/28/24 05:16 Hgb 9.6 g/dL (12.0-15.0) L 07/28/24 05:16 Hct 30.4 % (37-47) L 07/28/24 05:16 Plt Count 214 K/mm3 (150-450) 07/28/24 05:16 CHEMISTRY Potassium 4.1 mmol/L (3.5-5.1) 07/28/24 05:16 Sodium 142 mmol/L (136-145) 07/28/24 05:16 Magnesium 1.7 mg/dL (1.6-2.6) 07/26/24 20:16 Phosphorus 3.7 mg/dL (2.5-4.9) 09/26/23 05:44 BUN 15 mg/dL (7-18) 07/28/24 05:16 Creatinine 1.02 mg/dL (0.55-1.02) 07/28/24 05:16 Glucose 139 mg/dL (74-106) H 07/28/24 05:16 POC Glucose 129 mg/dL (74-106) H 07/28/24 11:54 TSH 0.98 uIU/mL (0.358-3.74) 10/04/23 12:02 COAG PT 14.1 SECONDS (11.7-14.9) 07/28/24 05:16 Pre-Assessment Diagnosis/Proposed Procedure Planned Operative Procedure(s): Esophagogastroduodenoscopy. Colonoscopy. 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 04/28/20 09:00 You/Your Family Experience No 04/28/20 09:00 fever (hyperthermia) with Relationship Recent Exposure to Contagious No 05/03/20 10:25 Disease Does patient have nerve No 07/28/24 06:39 stimulator Patient instructed to have device shut off --Does patient have Pacemaker No 07/28/24 06:39 or ICD? When Was Last Pacemaker Check QUESTION #4 FULL TEXT: You/Your Family Experience fever (hyperthermia) with Anesthesia Last Oral Intake Last Oral intake: Last Oral Intake NPO since 00:00 07/28/24 06:39 Meds taken in AM with sips of No 07/28/24 06:39 water? Meds patient instructed to take am of surgery PONV PONV - general utility maintenance repairer: PONV - general utility maintenance repairer Female HX of Motion Sickness HX of N/V After Surgery Non-Smoker Duration of Surgery greater than 60 minutes Number of Risk Factors PONV Score Height & Weight Height & Weight: Anesthesia: Height & Weight Height 5 ft 2 in 07/28/24 06:39 Weight: 61.7 kg 07/28/24 06:39 Body Mass Index (BMI) 24.8 07/28/24 06:39 Respiratory Assessment Respiratory Assessment - general utility maintenance repairer: Respiratory Tract Infection Hx - general utility maintenance repairer Hx Respiratory Tract Infection No 04/28/20 09:00 Any additional information?: Yes Hx Respiratory Tract Infection: Yes (Patient recovering from recent cold.) STOP Sleep Apnea STOP Sleep Apnea - general utility maintenance repairer: STOP Sleep Apnea - general utility maintenance repairer Hx Hypertension Yes 07/26/24 22:40 Hx Sleep Apnea No 07/26/24 22:40 CPAP No 05/03/20 11:30 BIPAP No 04/28/20 09:00 Do you snore loudly (louder No 07/26/24 22:40 than talking or can be heard Do you often feel tired/ Yes 07/26/24 22:40 fatigued/ sleepy during daytime? Has anyone observed you stop No 07/26/24 22:40 breathing during sleep? STOP Results Positive 07/26/24 22:40 QUESTION #5 FULL TEXT : Do you snore loudly (louder than talking or can be heard through closed doors)? 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 Specify any problems Hx of Preganancy in last 3 No 07/26/24 22:40 Months Nurse Filling Out Transfusion MGROVE 07/26/24 22:40 & Questions: Date: 07/26/24 07/26/24 22:40 Time: 22:49 07/26/24 22:40 Patient unable to answer at this time (ie. confused, unrespo /Reproduction History /Reproductive History - general utility maintenance repairer: /Reproductive Hx- general utility maintenance repairer Hx Now No 07/28/24 06:39 Gestational Age (in weeks): EDC: Hx Hx Para Hx Section SAB Active Medications Active Medications: Current Medications Generic Name Dose Route Start Last Admin Trade Name Freq PRN Reason Stop Dose Admin Acetaminophen 650 mg 07/26/24 22:37 Acetaminophen 325 Mg Tablet PO Q4H PRN PRN Fever, pain 1-10/10 Al Hydroxide/Mg Hydroxide 30 ml 07/26/24 22:37 Mag Hydrox/Al Hydrox/Simeth 30 Ml Udc PO Q6H PRN PRN Gastric Burning Albuterol Sulfate 2.5 mg 07/26/24 22:37 Albuterol 2.5 Mg/3 Ml Vial.Neb. INHALATION Q2H PRN PRN Dyspnea, wheezing Atorvastatin Calcium 20 mg 07/27/24 22:00 07/27/24 20:28 Atorvastatin Calcium 20 Mg Tablet PO 20 mg QHS MICHEL Administration Bupropion HCl 150 mg 07/27/24 10:00 07/28/24 12:23 Bupropion (Xl) 150 Mg Tablet.Xl PO Not Given DAILY MICHEL Ferrous Sulfate 325 mg 07/27/24 12:00 07/28/24 12:24 Ferrous Sulfate 325 Mg Tablet PO Not Given TIDCM MICHEL Fluoxetine HCl 20 mg 07/27/24 10:00 07/28/24 12:23 Fluoxetine 20 Mg Capsule PO Not Given DAILY MICHEL Gabapentin 100 mg 07/27/24 22:00 07/27/24 20:33 Gabapentin 100 Mg Capsule PO 100 mg QHS MICHEL Administration Glucagon 1 mg 07/26/24 22:37 Glucagon 1 Mg/Ml Syringe IM X1 PRN HYPOGLYCEMIA Protocol Guaifenesin 20 ml 07/26/24 22:37 Guaifenesin 10 Ml Udc (200mg/10ml) PO Q4H PRN PRN COUGH Hydralazine HCl 10 mg 07/26/24 22:37 Hydralazine 20 Mg/Ml Vial IV Q4H PRN PRN SBP > 160 Protocol Sodium Chloride 100 mls @ 15 mls/hr 07/26/24 22:34 IV .Q6H40M PRN Saline Flush Sodium Chloride 100 mls @ 15 mls/hr 07/26/24 22:34 IV .Q6H40M PRN Additional IVPB Infusion Dextrose 250 mls @ 0 mls/hr 07/26/24 22:37 Dextrose 10%-Water IV .Q0M PRN HYPOGLYCEMIA Protocol As Directed Pantoprazole Sodium 80 mg/ 100 mls @ 10 mls/hr 07/26/24 22:37 07/28/24 13:46 Sodium Chloride CONT INF 0 mls/hr Q10H MICHEL Infusion Insulin Glargine 5 unit 07/27/24 21:00 07/27/24 20:28 Insulin Glargine-Yfgn 100 Unit/Ml Pen SC Not Given QPM MICHEL Insulin Human Lispro 0 unit 07/26/24 22:45 07/28/24 12:23 Insulin Lispro 100 Unit/Ml Insuln.Pen SC Not Given Q6H [facility] Protocol Levetiracetam 250 mg 07/27/24 22:00 07/28/24 12:23 Levetiracetam 250 Mg Tablet PO Not Given BID MICHEL Melatonin 3 mg 07/26/24 22:37 Melatonin 3 Mg Tablet PO QHS PRN PRN INSOMNIA Ondansetron HCl 4 mg 07/26/24 22:37 07/27/24 14:16 Ondansetron 4 Mg/2 Ml Vial IV 4 mg Q8H PRN PRN Administration NAUSEA/VOMITING Prochlorperazine Edisylate 5 mg 07/26/24 22:37 Prochlorperazine 10 Mg/2 Ml Vial IV Q4H PRN PRN Breakthrough Nausea/Vomiting Senna/Docusate Sodium 2 tablet 07/26/24 22:37 Senna/Docusate Sodium 1 Tablet PO BID PRN PRN Constipation Sodium Chloride 10 - 40 ml 07/26/24 22:34 07/27/24 14:16 0.9% Saline Lock 10 Ml Syringe IV 10 ml UD PRN Administration SALINE FLUSH PFS Medical History Chronic renal failure, stage 3a Post traumatic stress disorder (PTSD) Heart murmur, systolic Irritable bowel syndrome PRES (posterior reversible encephalopathy syndrome) Tobacco dependence in remission Osteoporosis Rectocele Incomplete uterovaginal prolapse Diabetes mellitus type 2 in nonobese Osteoarthritis (arthritis due to wear and tear of joints) GIB (gastrointestinal bleeding) Noncompliance with diabetes treatment Mixed hyperlipidemia Benign essential hypertension Polyneuropathy due to type 2 diabetes mellitus Skin cancer H/O transfusion of whole blood Vitamin D deficiency Liver disease Home Medications ?Medication ?Instructions ?Recorded ?Last Taken ?Type ascorbic acid (vitamin C) 500 mg 1,000 mg PO DAILY supp 09/25/23 Unknown History capsule amlodipine 10 mg tablet (Norvasc) 10 mg PO DAILY bp #30 tabs 10/04/23 Unknown Rx atorvastatin 20 mg tablet 20 mg PO QHS #30 tabs 10/04/23 Unknown Rx bupropion HCl 150 mg 24 hr tablet, 150 mg PO DAILY #30 tabs 10/04/23 Unknown Rx extended release fluoxetine 20 mg capsule (Prozac) 20 mg PO DAILY mood #30 caps 10/04/23 Unknown Rx gabapentin 100 mg capsule 100 mg PO QHS #30 caps 10/04/23 Unknown Rx metformin 500 mg tablet 500 mg PO BID dm #60 tabs 10/04/23 Unknown Rx omega-3 acid ethyl esters 1 gram 1 cap PO DAILY supp #30 caps 10/04/23 Unknown Rx capsule (Lovaza) cholecalciferol (vitamin D3) 50 25 mcg PO DAILY vitamin 01/31/24 Unknown History mcg (2,000 unit) capsule (Vitamin D3) insulin lispro 100 unit/mL 5 unit subcut TID 05/07/24 Unknown History subcutaneous pen (Humalog KwikPen (U-100) Insulin) lisinopril 20 1 tab PO QDAY 05/07/24 Unknown History mg-hydrochlorothiazide 12.5 mg tablet omeprazole 40 mg capsule,delayed 40 mg PO QDAY 05/07/24 Unknown History release insulin glargine 100 unit/mL (3 5 unit subcut QPM 07/26/24 Unknown History mL) subcutaneous pen (Lantus Solostar U-100 Insulin) levetiracetam 500 mg tablet 250 mg PO Q12H SEIZURE 07/27/24 Unknown History Allergy/AdvReac Type Severity Reaction Status Date / Time oxycodone AdvReac Intermediate Other Verified 07/26/24 17:16 cyclobenzaprine (From AdvReac other Verified 07/26/24 17:16 Flexeril) Family History Father Arthritis Diabetes Myocardial infarction, Onset Age: 63 Heart disease Hypertension Sister Arthritis Diabetes Brother Diabetes Mental disorder Mother Hypertension Migraines Cerebral hemorrhage Surgical History H/O: hysterectomy History of hip surgery History of tubal ligation History of rectal sphincterotomy History of colonoscopy Status post surgical removal of malignant neoplasm of skin H/O: Social History household members: spouse number of children: 2 current occupational status: employed 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 Smoking Status: Never smoker Tobacco: How many years used: 25 how long ago did patient quit smoking: Patient quit smoking in 2012. alcohol intake: never substance use type: does not use caffeine: Yes what type of physical activity do you participate in: none frequency: does not exercise Review of Systems (Anesthesia) ROS Narrative System reviewed and no additional complaints, except as documented.
--- NOTE | 2024-07-28 15:19 | PN.GI_ITS ---
Subjective Subjective Patient tolerated the prep without any problems. Objective Data Objective Data Vital Signs: Vital Signs Temp Pulse Resp BP Pulse Ox O2 Del Method O2 Flow Rate 97.8 F 70 16 132/68 H 100 Room Air 2 07/28/24 14:50 07/28/24 14:50 07/28/24 14:50 07/28/24 14:50 07/28/24 14:50 07/28/24 14:59 07/28/24 14:50 Oxygen Flow Rate (L/min) 2 Oxygen Delivery Method Room Air Weight: 136 lb 0.403 oz Body Mass Index (BMI) 24.8 Intake & Output: Intake and Output for Last 24 Hours 07/26/24 07/27/24 07/28/24 23:59 23:59 23:59 Intake Total 1035 / 1035 1518.84 / 3018.84 1688.00 / 1688.00 Output Total 0 / 0 1050 / 1050 Balance 1035 / 1035 468.84 / 1968.84 1688.00 / 1688.00 Lab / Micro Data 07/28/24 05:16 07/28/24 05:16 Labs: Laboratory Results - last 24 hr 07/27/24 16:36: POC Glucose 118 H 07/27/24 20:27: POC Glucose 149 H 07/28/24 04:40: POC Glucose 133 H 07/28/24 05:16: WBC 7.3, RBC 3.63 L, Hgb 9.6 L, Hct 30.4 L, MCV 83.7, MCH 26.4 L , MCHC 31.6 L D, RDW Std Deviation 48.3 H, RDW Coeff of Shameka 15.8 H, Plt Count 214, MPV 9.4, Immature Gran % (Auto) 0.100, Neut % (Auto) 59.3, Lymph % (Auto) 33.5, [place] % (Auto) 5.2, Eos % (Auto) 1.5, Baso % (Auto) 0.4, Absolute Neuts (auto) 4.3, Absolute Lymphs (auto) 2.43, Nucleated RBC % 0, PT 14.1, INR 1.1, APTT 29.0, Sodium 142, Potassium 4.1, Chloride 110 H, Carbon Dioxide 24.0, Anion Gap 7, BUN 15, Creatinine 1.02, Estim Creat Clear Calc 46.88, Est GFR (MDRD) Af Amer 70, Est GFR (MDRD) Non-Af 58 L, BUN/Creatinine Ratio 14.7, Glucose 139 H, H emoglobin A1c 5.7 H, Calcium 9.0 07/28/24 11:54: POC Glucose 129 H Micro: Microbiology 07/26/24 17:57 Stool Stool Occult Blood (DILIP) - Final Physical Exam Const alert, oriented x3, no apparent distress and healthy appearing General Appearance: cooperative GI normal to inspection, nondistended, normoactive bowel sounds, soft to palpation, non-tender and non-distended Percussion: normal to percussion Rectal Exam: deferred Assessment & Plan Assessment/Plan (1) Syncope: PLAN: Plan The patient is a 64 y/o F w/ Hx GI bleed, Chronic anemia, who presents to the [facility] ED on 07/26/24 with syncopal event at home with nausea and significant neck discomfort following her fall. Patient reported dark black appearing stools over the last 4 to 5 days not on any iron supplementation although she does report she supposed to be taking this but never picked up her medications prompting ED evaluation. Syncopal Event with significant hypotensive presentation, acute hyponatremia, possibly hypovolemic component however high suspicion for possible acute GI bleed with acute blood loss anemia with acute on chronic normocytic anemia. Differential diagnosis for GI bleed acute on chronic will be gastric antral vascular ectasia, Sander's erosions, peptic ulcer disease, age dysplasia, telangiectasia, neoplasia. She will need to undergo an upper and lower endoscopy to evaluate upper lower GI tract. She will also need to get checked for celiac disease. She was explained alternatives, risk and benefits include not withstanding bleeding, infection, sepsis, perforation, need for return to . She will an ASA of 3. Charges/Coding Visit Charges Inpatient E&M: 78230 Subs Hosp L3
--- NOTE | 2024-07-28 16:11 | OP.CCLET_ITS ---
07/28/2024 Javier Leyv [address] [place] [address] Re : Upper GI endoscopy procedure for Lakisha Echols Dear Dr. Levy This procedure was performed on Sunday, July 28, 2024. My impressions and recommendations are as follows: Impressions : - Normal esophagus. - Medium-sized hiatal hernia. - Blood in the third portion of the duodenum. - A single bleeding angiodysplastic lesion in the duodenum. Clips were placed. Clip manager site: [employer]. - One non-bleeding angiodysplastic lesion in the jejunum. Treated with a heater probe. - No specimens collected. Recommendations : - Return patient to hospital up for ongoing care. - Full liquid diet today. - Continue present medications. My findings are described in the full procedure note, which is enclosed. If I can be of further assistance, please feel free to contact me at . Sincerely, Ramez Khan, 07/28/2024 4:11:20 PM This report has been signed electronically.
--- NOTE | 2024-07-28 16:11 | OP.EGD_ITS ---
Patient Name: Lakisha Echols Procedure Date: 07/28/2024 3:23 PM Date of : 1960 Age: 64 Procedure: Upper GI endoscopy Indications: Melena Providers: Ramez Khan DO Referring MD: Mai Pérez Medicines: Monitored Anesthesia Care Patient Profile: This is a 64 year old female. Refer to note in patient chart for documentation of history and physical. Patient has symptoms of acute epigastric abdominal pain. Complications: No immediate complications. Procedure: Pre-Anesthesia Assessment: - Prior to the procedure, a History and Physical was performed, and patient medications and allergies were reviewed. The patient is competent. The risks and benefits of the procedure and the sedation options and risks were discussed with the patient. All questions were answered and informed consent was obtained. Patient identification and proposed procedure were verified by the physician in the pre-procedure area. Mental Status Examination: alert and oriented. Airway Examination: normal oropharyngeal airway and neck mobility. Respiratory Examination: clear to auscultation. CV Examination: normal. Prophylactic Antibiotics: The patient does not require prophylactic antibiotics. Prior Anticoagulants: The patient has taken no anticoagulant or antiplatelet agents except for NSAID medication. ASA Grade Assessment: II - A patient with mild systemic disease. After reviewing the risks and benefits, the patient was deemed in satisfactory condition to undergo the procedure. The anesthesia plan was to use monitored anesthesia care (MAC). Immediately prior to administration of medications, the patient was re-assessed for adequacy to receive sedatives. The heart rate, respiratory rate, oxygen saturations, blood pressure, adequacy of pulmonary ventilation, and response to care were monitored throughout the procedure. The physical status of the patient was re-assessed after the procedure. After obtaining informed consent, the endoscope was passed under direct vision. Throughout the procedure, the patient's blood pressure, pulse, and oxygen saturations were monitored continuously. The colonoscope was introduced through the mouth, and advanced to the jejunum. Small bowel enteroscopy was deemed necessary. The upper GI endoscopy was accomplished without difficulty. The patient tolerated the procedure well. Scope In: 3:35:42 PM Scope Out: 3:57:56 PM Total Procedure Duration Time 0 hours 22 minutes 14 seconds Findings: The examined esophagus was normal. A medium-sized hiatal hernia was present. Red blood was found in the third portion of the duodenum. A single 10 mm angiodysplastic lesion with bleeding was found in the third portion of the duodenum. To stop active bleeding, two hemostatic clips were successfully placed. Clip retrieval specialist: [employer]. There was no bleeding at the end of the procedure. One 5 mm angiodysplastic lesion without bleeding was found in the jejunum. Coagulation for bleeding prevention using heater probe was successful. Estimated blood loss was minimal. Impression: - Normal esophagus. - Medium-sized hiatal hernia. - Blood in the third portion of the duodenum. - A single bleeding angiodysplastic lesion in the duodenum. Clips were placed. Clip retrieval specialist: [employer]. - One non-bleeding angiodysplastic lesion in the jejunum. Treated with a heater probe. - No specimens collected. Recommendation: - Return patient to hospital up for ongoing care. - Full liquid diet today. - Continue present medications. Procedure Code(s): --- Professional --- 79864, Small intestinal endoscopy, enteroscopy beyond second portion of duodenum, not including ileum; with control of bleeding (eg, injection, bipolar cautery, unipolar cautery, laser, heater probe, stapler, plasma net developer programmer) CPT copyright 2021 [employer]. All rights reserved. The codes documented in this report are preliminary and upon inpatient coder review may be revised to meet current compliance requirements. Ramez Khan DO 07/28/2024 4:11:20 PM This report has been signed electronically. Number of Addenda: 0 Note Initiated On: 07/28/2024 3:23 PM
--- NOTE | 2024-07-28 16:13 | OP.CCLET_ITS ---
07/28/2024 Javier Levy [address] [place] [address] Re : Colonoscopy procedure for Lakisha Echols Dear Dr. Levy This procedure was performed on Sunday, July 28, 2024. My impressions and recommendations are as follows: Impressions : - Preparation of the colon was inadequate. - Diverticulosis in the recto-sigmoid colon and in the sigmoid colon. - Blood in the entire examined colon. - No specimens collected. Recommendations : - Return patient to hospital up for ongoing care. - Full liquid diet. - Continue present medications. - Repeat colonoscopy because the bowel preparation was poor. My findings are described in the full procedure note, which is enclosed. If I can be of further assistance, please feel free to contact me at . Sincerely, Ramez Khan, 07/28/2024 4:13:17 PM This report has been signed electronically.
--- NOTE | 2024-07-28 16:13 | OP.COLON_ITS ---
Patient Name: Lakisha Echols Procedure Date: 07/28/2024 3:58 PM Date of : 1960 Age: 64 Procedure: Colonoscopy Indications: Melena Providers: Ramez Khan DO Referring MD: Mai Pérez Medicines: Monitored Anesthesia Care Patient Profile: This is a 64 year old female. Refer to note in patient chart for documentation of history and physical. Patient has symptoms of acute epigastric abdominal pain. Last Colonoscopy: 5 years ago. Complications: No immediate complications. Procedure: Pre-Anesthesia Assessment: - Prior to the procedure, a History and Physical was performed, and patient medications and allergies were reviewed. The patient is competent. The risks and benefits of the procedure and the sedation options and risks were discussed with the patient. All questions were answered and informed consent was obtained. Patient identification and proposed procedure were verified by the physician in the pre-procedure area. Mental Status Examination: alert and oriented. Airway Examination: normal oropharyngeal airway and neck mobility. Respiratory Examination: clear to auscultation. CV Examination: normal. Prophylactic Antibiotics: The patient does not require prophylactic antibiotics. Prior Anticoagulants: The patient has taken no anticoagulant or antiplatelet agents except for NSAID medication. ASA Grade Assessment: II - A patient with mild systemic disease. After reviewing the risks and benefits, the patient was deemed in satisfactory condition to undergo the procedure. The anesthesia plan was to use monitored anesthesia care (MAC). Immediately prior to administration of medications, the patient was re-assessed for adequacy to receive sedatives. The heart rate, respiratory rate, oxygen saturations, blood pressure, adequacy of pulmonary ventilation, and response to care were monitored throughout the procedure. The physical status of the patient was re-assessed after the procedure. After I obtained informed consent, the scope was passed under direct vision. Throughout the procedure, the patient's blood pressure, pulse, and oxygen saturations were monitored continuously. The colonoscope was introduced through the anus and advanced to the terminal ileum. The colonoscopy was performed without difficulty. The patient tolerated the procedure well. The quality of the bowel preparation was inadequate. Scope In: 4:00:00 PM Scope Withdrawal Time 0 hours 2 minutes 27 seconds Scope Out: 4:07:41 PM Total Procedure Duration Time 0 hours 7 minutes 41 seconds Findings: The perianal and digital rectal examinations were normal. Multiple small and large-mouthed diverticula were found in the recto-sigmoid colon and sigmoid colon. Hematin (altered blood/xicxxl-irboqa-bhta material) was found in the entire colon. Impression: - Preparation of the colon was inadequate. - Diverticulosis in the recto-sigmoid colon and in the sigmoid colon. - Blood in the entire examined colon. - No specimens collected. Recommendation: - Return patient to hospital up for ongoing care. - Full liquid diet. - Continue present medications. - Repeat colonoscopy because the bowel preparation was poor. Procedure Code(s): --- Professional --- 94759, Colonoscopy, flexible; diagnostic, including collection of specimen(s) by brushing or washing, when performed (separate procedure) CPT copyright 2021 [employer]. All rights reserved. The codes documented in this report are preliminary and upon verification engineer review may be revised to meet current compliance requirements. Ramez Khan DO 07/28/2024 4:13:17 PM This report has been signed electronically. Number of Addenda: 0 Note Initiated On: 07/28/2024 3:58 PM
--- NOTE | 2024-07-28 16:19 | PCM.POST.ANE ---
Anesthesia: Postop Eval I Current Vital Signs Temperature: 98.7 F Pulse Rate: 79 Blood Pressure: 131/75 Respiratory Rate: 16 Pulse Ox: 98 Assessment Airway patent: Yes Spontaneous unlabored respirations: Yes nausea: No Vomiting: No Anesthesia Complication: No Fluid Hydration Crystalloid volume administer (ml): 50 Total IV fluid infused: 50 Progress Note Anesthesia document: Postop Eval 1 completed: Yes
[2024-07-28] MEDS: 0.9% Saline Lock 10 ML Syringe IV (17:02)
[2024-07-28 17:09] LABS: Bedside Glucose 116 mg/dL (74-106)
--- NOTE | 2024-07-28 18:28 | PN.HOSP_ITS ---
Reason for Visit Reason for Visit: Syncope Subjective Subjective Patient was seen post EGD and colonoscopy and states she is feeling well. We discussed the findings on the EGD at the distal small bowel and the need for capsule endoscopy as an outpatient to ensure that there are no other angiodysplastic lesions in the small bowel that could not be identified on push enteroscopy. Patient voiced understanding. Colonoscopy prep was inadequate however per discussion with Dr. Khan plan is for outpatient colonoscopy in the future as the bleed was identified on the EGD. Objective Data Objective Data Vital Signs: Vital Signs Temp Pulse Resp BP Pulse Ox O2 Del Method O2 Flow Rate 98.0 F 90 16 125/83 H 96 Room Air 2 07/28/24 16:54 07/28/24 17:35 07/28/24 16:54 07/28/24 16:54 07/28/24 17:50 07/28/24 17:50 07/28/24 14:50 Oxygen Flow Rate (L/min) 2 Oxygen Delivery Method Room Air Weight: 61.7 kg Body Mass Index (BMI) 24.8 Intake & Output: Intake and Output for Last 24 Hours 07/26/24 07/27/24 07/28/24 23:59 23:59 23:59 Intake Total 1035 / 1035 1518.84 / 3018.84 1688.00 / 1688.00 Output Total 0 / 0 1050 / 1050 Balance 1035 / 1035 468.84 / 1968.84 1688.00 / 1688.00 Lab / Micro Data 07/28/24 05:16 07/28/24 05:16 Labs: Laboratory Results - last 24 hr 07/27/24 20:27: POC Glucose 149 H 07/28/24 04:40: POC Glucose 133 H 07/28/24 05:16: WBC 7.3, RBC 3.63 L, Hgb 9.6 L, Hct 30.4 L, MCV 83.7, MCH 26.4 L , MCHC 31.6 L D, RDW Std Deviation 48.3 H, RDW Coeff of Shameka 15.8 H, Plt Count 214, MPV 9.4, Immature Gran % (Auto) 0.100, Neut % (Auto) 59.3, Lymph % (Auto) 33.5, [place] % (Auto) 5.2, Eos % (Auto) 1.5, Baso % (Auto) 0.4, Absolute Neuts (auto) 4.3, Absolute Lymphs (auto) 2.43, Nucleated RBC % 0, PT 14.1, INR 1.1, APTT 29.0, Sodium 142, Potassium 4.1, Chloride 110 H, Carbon Dioxide 24.0, Anion Gap 7, BUN 15, Creatinine 1.02, Estim Creat Clear Calc 46.88, Est GFR (MDRD) Af Amer 70, Est GFR (MDRD) Non-Af 58 L, BUN/Creatinine Ratio 14.7, Glucose 139 H, H emoglobin A1c 5.7 H, Calcium 9.0 07/28/24 11:54: POC Glucose 129 H 07/28/24 16:49: POC Glucose 116 H Micro: Microbiology 07/26/24 17:57 Stool Stool Occult Blood (DILIP) - Final Physical Exam Const alert, oriented x3, no apparent distress, average body habitus, healthy appearing and well nourished Constitutional Narrative: Pleasant, upper middle-aged, white female, sitting up in bed watching television, appears comfortable, nontoxic, at bedside HEENT head/scalp atraumatic and moist oral mucous membranes HEENT Narrative: Mallampati 2, no thrush Head and Scalp: normocephalic Resp normal respiratory effort, no retractions, no use of accessory muscles and clear to auscultation bilaterally Auscultation: Negative for rales, rhonchi or wheezes Cardio regular rate, regular rhythm, S1 normal heart sound, S2 normal heart sound, no murmurs, no rub, no gallops and no clicks GI normal to inspection, nondistended, normoactive bowel sounds, soft to palpation and non-tender Extremity no clubbing, cyanosis or edema Extremity Narrative: Pedal pulses are 2+, radial pulses are 2+ Neuro moves all extremities and no focal motor deficits Speech: speech normal Psych affect normal Psych Narrative: Calm, eye contact is good, patient interacts appropriately Assessment & Plan Assessment/Plan (1) Syncope: (2) Acute anemia: (3) Melena: PLAN: Plan Syncope/lightheadedness -Secondary to acute anemia -Patient on telemetry without any events -Feels much better since blood transfusion Upper GI bleed secondary to 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 -Baseline hemoglobin early in 2023 appears to run between 12 and 14 since then has been between 10 and 11 -Acutely dropped to 7.0 on presentation and patient was transfused 2 units packed red blood cells -Posttransfusion hemoglobin is 9.5 with correction as expected--> stable today at 9.6 -Continue IV PPI for tonight -EGD showed a normal esophagus, medium sized anal hernia, blood in the third portion of the duodenum with a single bleeding angiodysplastic lesion in the distal duodenum with 2 clips placed and 1 nonbleeding angiodysplastic lesion in the proximal jejunum that was treated with heater probe. -Plan is for outpatient capsule endoscopy to ensure no further lesions were identified -Will start full liquid diet and transition in a.m. as long as hemoglobin is stable -Will start iron supplementation at discharge -Continue to monitor clinically -Will need outpatient colonoscopy in the future as prep was poor -GI following-appreciate input Elevated serum creatinine -Resolved Seizure disorder -Continue home AED regimen DM-2 with chronic neuropathy -Can continue home gabapentin -Hold home basal insulin and restart once p.o. diet started -Hold home prandial insulin and restart once p.o. diet has started -Continue SSI -Hold home oral agents History of GERD with history of GI bleed -Hold home omeprazole -Treatment as above Essential hypertension/hyperlipidemia -Continue statin -Patient with hypotension on presentation -Will continue to hold oral antihypertensive agents and reinitiate when appropriate -Restart Lovaza at discharge Depression/anxiety -Continue home Wellbutrin -Continue home Prozac Tobacco abuse -Remote -Encouraged ongoing cessation DVT prophylaxis -continue SCDs -chemoprophylaxis contraindicated due to suspected GI bleed on presentation CODE STATUS -Full code is verified Charges/Coding Visit Charges Inpatient E&M: 45848 Subs Hosp L2
[2024-07-28] MEDS: Gabapentin 100 MG Capsule PO (19:31)
[2024-07-28] MEDS: levETIRAcetam 250 MG Tablet PO (19:31)
[2024-07-28] MEDS: Insulin Lispro 100 UNIT/ML INSULN.PEN SC (19:32)
[2024-07-28] MEDS: Atorvastatin Calcium 20 MG Tablet PO (19:32)
[2024-07-28] MEDS: Insulin Glargine-YFGN 100 UNIT/ML Pen SC (19:34)
--- NOTE | 2024-07-28 20:00 | NURSING ---
Pt requested meds to bed given early tonight, and to be left alone if able until morning. Pt preferred to not have vitals taken before 04:00
[2024-07-28 21:02] LABS: Bedside Glucose 174 mg/dL (74-106)
--- NOTE | 2024-07-28 22:51 | POSTOPAN2_ITS ---
Anesthesia Postop Eval I Sum Postop Eval Completion status Anesthesia document: Postop Eval 1 completed: Yes Anesthesia Postop Eval I Summary Anesthesia Postop Eval I Summary: Anesthesia Postop Eval I: Assessment Summary Airway patent Yes 07/28/24 16:19 [email or web address] Spontaneous unlabored Yes 07/28/24 16:19 [email or web address] [email or web address] respirations Mental status nausea No 07/28/24 16:19 [email or web address] Vomiting No 07/28/24 16:19 [email or web address] Anesthesia Postop Eval I: Fluid Summary Crystalloid volume administer 50 07/28/24 16:19 [email or web address] (ml) Colloids volume administered ( ml) Blood Product volume administered (ml) Total IV fluid infused 50 07/28/24 16:19 [email or web address] Anesthesia Postop Eval I: Summary Notes Anesthesia Complication No 07/28/24 16:19 [email or web address] Anesthesia Complication Comment: Post-operative progress note Anesthesia: Postop Eval II Evaluation Mental status: Awake and Calm Pain Level: 0 nausea: No Vomiting: No Complications Anesthesia Complication: No
--- NOTE | 2024-07-28 22:51 | PCM.POSTANE2 ---
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 Spontaneous unlabored Yes 07/28/24 16:19 WAXING [email or web address] respirations Mental status nausea No 07/28/24 16:19 WAXING [email or web address] Vomiting No 07/28/24 16:19 WAXING [email or web address] Anesthesia Postop Eval I: Fluid Summary Crystalloid volume administer 50 07/28/24 16:19 WAXING MACHINE [email or web address] (ml) Colloids volume administered ( ml) Blood Product volume administered (ml) Total IV fluid infused 50 07/28/24 16:19 WAXING [email or web address] Anesthesia Postop Eval I: Summary Notes Anesthesia Complication No 07/28/24 16:19 WAXING [email or web address] Anesthesia Complication Comment: Post-operative progress note Anesthesia: Postop Eval II Evaluation Mental status: Awake and Calm Pain Level: 0 nausea: No Vomiting: No Complications Anesthesia Complication: No
[2024-07-29 04:22] VITALS: BP 125/67; PULSE 75; RESP 16; TEMP 35.8; O2SAT 95
[2024-07-29 04:24] VITALS: BMI 24.0
[2024-07-29 04:43] LABS: Bedside Glucose 94 mg/dL (74-106)
[2024-07-29 06:31] LABS: Absolute Lymphocyte Count 2.57 X10^3/uL (0.83-4.51); Absolute Neutrophil Count 6.6 X10^3/uL (2.0-7.7); Basophil# 0.02 X10^3/uL; Basophil% 0.2 % (0-1); Eosinophil# 0.16 X10^3/uL; Eosinophils% 1.6 % (0-5); Hematocrit 30.4 % (37-47); Hemoglobin 10.1 g/dL (12.0-15.0); Lymphocyte # 2.57 X10^3/ul (0.83-4.51); Lymphocyte % 26.3 % (19-41); Mean Corp Hgb Conc 33.2 g/dL (32-36); Mean Corpuscular Hgb 26.9 pg (27.0-32.0); Mean Corpuscular Volume 81.1 fL (81-99); Mean Platelet Vol. 9.1 fl (6.2-12.0); Monocyte# 0.39 X10^3/uL; NRBC Flagged by Analyzer 0 % (0-5); Neutrophil # 6.58 X10^3/uL (2.7-7.7); Neutrophil % 67.5 % (47-70); Platelet Count 218 K/mm3 (150-450); RBC Distribution Width CV 15.1 % (11.6-14.6); RBC Distribution Width SD 43.9 fl (35.1-43.9); Red Blood Count 3.75 M/mm3 (4.2-5.4); White Blood Count 9.8 K/mm3 (4.4-11.0)
[2024-07-29] MEDS: Pantoprazole Sodium 80 MG in 0.9% Normal Saline (100mL Bag) 80 ML 10 MG CONT INF (06:44)
[2024-07-29 06:47] LABS: Anion Gap 8 (5-15); BUN 11 mg/dL (7-18); BUN/Creat Ratio 11.7 RATIO (10-20); Calcium,Total 9.1 mg/dL (8.5-10.1); Chloride 107 mmol/L (98-107); Creatinine, Serum 0.94 mg/dL (0.55-1.02); EST Glomerular Filtration Rate 63 mL/min (>60); Est Glom Filt Rate - Afr Amer 76 mL/min (>60); Estimated Creatinine Clearance 46.56 ml/min; Glucose 110 mg/dL (74-106); Potassium 3.8 mmol/L (3.5-5.1); Sodium Level 141 mmol/L (136-145)
[2024-07-29 08:08] VITALS: O2SAT 96
[2024-07-29 10:54] VITALS: BP 116/85; PULSE 77; RESP 18; TEMP 36.8; O2SAT 96
[2024-07-29] MEDS: FLUoxetine 20 MG Capsule PO (10:56)
[2024-07-29] MEDS: levETIRAcetam 250 MG Tablet PO (10:56)
[2024-07-29] MEDS: buPROPion (XL) 150 MG TABLET.XL PO (10:56)
[2024-07-29] MEDS: Ferrous Sulfate 325 MG Tablet PO ×2 (10:56→12:32)
--- NOTE | 2024-07-29 11:58 | PCM.DC.SUM ---
Providers Date of Admission: 07/27/24 Date of Discharge: 07/29/24 Primary Care Physician: Dr. Morgan Levy MD Consultations 07/26/24 22:37 Consult: Gastroenterology Routine Consulting Provider: [facility] Reason for Consult: Suspected GI bleed, ABLA, hypotension EMERGENT Consult: No MD Notified: Yes Date Notified: 07/26/24 Time Notified: 22:33 Method of Notification: ED Physician Initiated Reason For Visit: SYNCOPE, ACUTE ON CHRONIC ANEMIA, SUPECTED GI Diagnosis Discharge Diagnosis (1) Syncope: Status: Acute Code(s): R55 - Syncope and collapse (2) Acute anemia: Status: Acute Code(s): D64.9 - Anemia, unspecified (3) Melena: Status: Acute Code(s): K92.1 - Melena Medications at Discharge Home Medications ascorbic acid (vitamin C) 500 mg capsule 1,000 mg PO DAILY supp 09/25/23 amlodipine 10 mg tablet (Norvasc) 10 mg PO DAILY bp #30 tabs 10/04/23 atorvastatin 20 mg tablet 20 mg PO QHS #30 tabs 10/04/23 bupropion HCl 150 mg 24 hr tablet, extended release 150 mg PO DAILY #30 tabs 10/04/23 fluoxetine 20 mg capsule (Prozac) 20 mg PO DAILY mood #30 caps 10/04/23 gabapentin 100 mg capsule 100 mg PO QHS #30 caps 10/04/23 metformin 500 mg tablet 500 mg PO BID dm #60 tabs 10/04/23 omega-3 acid ethyl esters 1 gram capsule (Lovaza) 1 cap PO DAILY supp #30 caps 10/04/23 cholecalciferol (vitamin D3) 50 mcg (2,000 unit) capsule (Vitamin D3) 25 mcg PO DAILY vitamin 01/31/24 insulin lispro 100 unit/mL subcutaneous pen (Humalog KwikPen (U-100) Insulin) 5 unit subcut TID 05/07/24 lisinopril 20 mg-hydrochlorothiazide 12.5 mg tablet 1 tab PO QDAY 05/07/24 insulin glargine 100 unit/mL (3 mL) subcutaneous pen (Lantus Solostar U-100 Insulin) 5 unit subcut QPM 07/26/24 levetiracetam 500 mg tablet 250 mg PO Q12H SEIZURE 07/27/24 pantoprazole 40 mg tablet,delayed release (Protonix) 40 mg PO BID #60 tabs 07/29/24 Hospital Course Operations None Procedures Blood transfusion, Colonoscopy, EGD and - (CT brain/CT cervical spine/chest x-ray/foot x-ray) Summary of Care Provided Minutes Spent on Discharge: 39 Hospital Course: Mrs. Echols is a 64-year-old white female presents emergency department was from hospital on 07/26/2024 after syncopal event. Patient reported she had sudden onset of lightheadedness and collapse following the onset of nausea. She did complain of some neck discomfort after her fall and was pale on arrival to the emergency department. The patient reported that she had developed black stools over the last 4 to 5 days prior to presentation and had not been on any iron supplementations. She is not on any anticoagulation and does not take NSAIDs frequently. She reported 1 bout of emesis that did not have any blood contained in it. She does have a history of chronic constipation. She is never had anything like this previous. Vital signs on presentation showed temperature of 97, heart rate 91, blood pressure initially was 60/39 with a repeat of 108/52, respiratory was 17 and oxygen saturation was 100% on room air. CBC showed a mild leukocytosis with a white count of 11, hemoglobin was 7.9 with a normal MCV, coags were normal. CMP was relatively unremarkable other than hyperglycemia with a glucose of 223 but she is diabetic. Initial troponin was 3 with a delta of 3. Stool guaiac was negative. With her syncopal episode a CT of her brain was performed and was negative for any acute findings. CT of the cervical spine was negative for any acute findings. Chest x-ray was unremarkable. Right foot x-ray was unremarkable. Upon review of her hemoglobin it appears that she has been running between 10 and 11 most recently however she was in the 13-14 range in early 2023. Case was discussed with Dr. Khan by the emergency department given her significant drop in hemoglobin and request for admission with plans for EGD and colonoscopy were recommended. She was admitted to the PCU given her syncopal episode and monitor on telemetry. She had no abnormal telemetry findings. She was evaluated by gastroenterology on 07/27/2024 in order for bowel prep was placed. She was taken for EGD and colonoscopy on 07/28/2024. EGD demonstrated normal esophagus with a medium size hiatal hernia and red blood was found in the third portion of the duodenum with a single 10 mm angiodysplastic lesion that was bleeding was noted in the third portion of the duodenum. To stop active bleeding 2 hemostatic clips were placed on there is no bleeding by the end of the procedure. One 5 mm angiodysplastic lesion that was not bleeding was noted in the jejunum and coagulation was performed for bleeding prevention via heater probe. Colonoscopy showed normal perianal and digital rectal exams with small and large mouth diverticula in the rectosigmoid and sigmoid colon. Hematin was found along the entire colon likely from her upper GI source. Repeat colonoscopy was recommended as an outpatient due to poor prep however repeat inpatient colonoscopy was not deemed to be needed due to the findings on the EGD. Postprocedure she was placed on a full liquid diet which she tolerated well in the evening and we were able to advance her diet to a regular diet on the a.m. of 07/29/2024 which she also tolerated well. Upon presentation she did receive 2 units of packed red blood cells. [place] hemoglobin was 7.0 with correction to 10.5 after transfusion of 2 units. On the day of discharge she was 10.1. Patient had no further syncopal episodes and we highly suspect it was related to her acute anemia. She was able to be discharged home in stable condition on 07/29/2024. She will continue Protonix 40 mg p.o. twice daily until she follows up with GI. In addition to the above, per discussion with Dr. Khan, she will also need a capsule endoscopy to assess for any further small bowel angiodysplastic lesions which could be causing further problem in the future for her. I have also asked her to follow-up with her primary care physician within the next 2 weeks. No other medication changes were made other than discontinuing her omeprazole and starting Protonix 40 mg p.o. twice daily. 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 Nonbleeding angiodysplastic lesions in the jejunum Acute blood loss anemia Elevated serum creatinine-resolved Seizure disorder DM-2 Diabetic neuropathy History of GERD Essential hypertension Hyperlipidemia Depression Anxiety Tobacco abuse Physical Exam Const alert, oriented x3, no apparent distress, average body habitus, no limitations, healthy appearing and well nourished Constitutional Narrative: Pleasant, upper middle-aged, white female, sitting up in bed watching television, appears comfortable, nontoxic General Appearance: cooperative, comfortable, well kempt and well developed Exam Limitations: no limitations HEENT normocephalic, head/scalp atraumatic, hearing grossly normal bilaterally and moist oral mucous membranes HEENT Narrative: Mallampati 2, no thrush Eyes EOMs intact bilaterally and conjunctivae normal Eyes Narrative: No scleral icterus Neck supple Neck Narrative: Trachea midline Resp normal respiratory effort, no retractions, no use of accessory muscles and clear to auscultation bilaterally Resp Narrative: Diminished but clear Auscultation: Negative for rales, rhonchi or wheezes Cardio regular rate, regular rhythm, S1 normal heart sound, S2 normal heart sound, no murmurs, no rub, no gallops and no clicks GI normal to inspection, nondistended, normoactive bowel sounds, soft to palpation and non-tender Extremity no clubbing, cyanosis or edema Extremity Narrative: Pedal pulses are 2+, radial pulses are 2+ Skin no wounds, skin turgor normal and no jaundice Neuro oriented x3, moves all extremities and no focal motor deficits Speech: speech normal Psych affect normal Psych Narrative: Calm, eye contact is good, patient interacts appropriately Weight / BMI Weight Weight: 59.6 kg Body Mass Index (BMI) 24.0 ABG / Lab / Microbiology Data 07/29/24 06:14 07/29/24 06:14 Laboratory: Laboratory Results - last 24 hr 07/28/24 11:54: POC Glucose 129 H 07/28/24 16:49: POC Glucose 116 H 07/28/24 19:30: POC Glucose 174 H 07/29/24 04:24: POC Glucose 94 07/29/24 06:14: WBC 9.8, RBC 3.75 L, Hgb 10.1 L, Hct 30.4 L, MCV 81.1, MCH 26.9 L, MCHC 33.2 D, RDW Std Deviation 43.9, RDW Coeff of Shameka 15.1 H, Plt Count 218, MPV 9.1, Immature Gran % (Auto) 0.400, Neut % (Auto) 67.5, Lymph % (Auto) 26.3, [place] % (Auto) 4.0, Eos % (Auto) 1.6, Baso % (Auto) 0.2, Absolute Neuts (auto) 6.6, Absolute Lymphs (auto) 2.57, Nucleated RBC % 0, Sodium 141, Potassium 3.8, Chloride 107, Carbon Dioxide 25.0, Anion Gap 8, BUN 11, Creatinine 0.94, Estim Creat Clear Calc 46.56, Est GFR (MDRD) Af Amer 76, Est GFR (MDRD) Non-Af 63, BUN/Creatinine Ratio 11.7, Glucose 110 H, Calcium 9.1 Microbiology: Microbiology 07/26/24 17:57 Stool Stool Occult Blood (DILIP) - Final D/C Instructions Discharge Diet: Low fat / Low cholesterol and 1800 Calorie Control Diet Discharge Activity: Return to Normal Activity Return to work on: 07/30/24 DC O2, CPAP, BIPAP Needs Home O2 Discharge instructions: No Meaningful Use Info Meaningful Use Meaningful Use Diagnoses (Choose all that apply): None applicable Ischemic Stroke Statin Dosing Therapy Reference: STATIN DOSE THERAPY REFERENCE: * Patients > 75 years receive moderate or high dose statin therapy. * Patients 75 years or YOUNGER should receive HIGH intensity statin dose unless contraindicated. You will be required to document reason for non-treatment if statin daily dose does not meet guidelines. HIGH DOSE STATIN THERAPY DAILY Atorvastatin > than or = to 40 mg Rosuvastatin > than or = to 20 mg Amlodipine + Atorvastatin > than or = to 2.5/40 mg Ezetimibe + Simvastatin 10/80 mg Simvastatin 80mg Discharge Plan Admission Admit Date/Time: 07/27/24 09:59 Primary Reason for Your Visit: Syncope/lightheadedness Attending Provider: Marielena Roberts Primary Care Provider: Morgan Levy Consulting Providers: Mai Pérez Discharge Orders/Prescriptions Prescriptions: New pantoprazole [Protonix] 40 mg tablet,delayed release (DR/EC) 40 mg PO BID Qty: 60 2RF Continued cholecalciferol (vitamin D3) [Vitamin D3] 50 mcg (2,000 unit) capsule 25 mcg PO DAILY insulin lispro [Humalog KwikPen Insulin] 100 unit/mL insulin pen 5 unit subcut TID ascorbic acid (vitamin C) 500 mg capsule 1,000 mg PO DAILY Rx Instructions: give at the same time as iron atorvastatin 20 mg Tablet 20 mg PO QHS Qty: 30 0RF Rx Instructions: TAKE THIS MEDICATION AT SUPPER bupropion HCl 150 mg Tablet Extended Release 24 Hr 150 mg PO DAILY Qty: 30 0RF gabapentin 100 mg Capsule 100 mg PO QHS Qty: 30 0RF Rx Instructions: TAKE AT BEDTIME FOR THE NERVE PAIN IN THE FEET metformin 500 mg tablet 500 mg PO BID Qty: 60 0RF Rx Instructions: TAKE WITH BREAKFAST AND WITH SUPPER fluoxetine [Prozac] 20 mg capsule 20 mg PO DAILY Qty: 30 0RF Rx Instructions: TAKE WITH BREAKFAST omega-3 acid ethyl esters [Lovaza] 1 gram capsule 1 cap PO DAILY Qty: 30 0RF insulin glargine [Lantus Solostar U-100 Insulin] 100 unit/mL (3 mL) insulin pen 5 unit subcut QPM levetiracetam 500 mg tablet 250 mg PO Q12H Patient Comments: TAKE 1/2 (ONE-HALF) TABLET BY MOUTH ONCE DAILY IN THE MORNING & 1 TABLET NIGHTLY Held lisinopril-hydrochlorothiazide 20-12.5 mg tablet 1 tab PO QDAY Hold Instructions: Resume on 07/30/24. amlodipine [Norvasc] 10 mg tablet 10 mg PO DAILY Qty: 30 0RF Hold Instructions: Resume on 07/30/24. Rx Instructions: TAKE THIS MEDICATION IN THE MORNING AFTER BREAKFAST Discontinued omeprazole 40 mg capsule,delayed release(DR/EC) 40 mg PO QDAY Referrals / Follow Up: Morgan Levy MD [Primary Care Provider] - Within 2 Weeks (Consulting Manager called to set up appointment, but the office is closed for lunch. ) Friend,DO Ramez [Med Staff - Active Staff] - 08/12/24 10:00 am (Appointment will be with LOY Ramirez) Disposition Disposition (needs filled in before D/C Order can be placed): Home, Self Care Charges/Coding Visit Charges Inpatient E&M: 77091 Disch Hosp >30min
[2024-07-29 12:22] LABS: Bedside Glucose 130 mg/dL (74-106)
--- NOTE | 2024-07-29 14:11 | CASEMGMT ---
Patient has order for discharge. RN CM in to discuss needs at discharge. Patient is independent in room. Patient denies needs or help at discharge. Patient had no further questions or concerns.
[2024-07-29 15:35] VITALS: BP 125/80; PULSE 85; RESP 18; TEMP 37.1; O2SAT 93
== END 2024-07-29 15:25 | disposition home or self-care (01) | DRG 378 ==
LOC: ED 21:46 → PCU 22:22
PROVIDERS: Anesthesiology; Internal Medicine Gastroenterology; Admitting Provider Family Medicine; Emergency Provider Emergency Medicine; PCP Family Medicine; Referring Provider Family Medicine; Visit Provider Internal Medicine
PROC: 0DJD8ZZ Inspection of Lower Intestinal Tract, Via Natural or Artificial Opening Endoscopic (ICD-10-PCS; CPT 45378; principal; 2024-07-28 15:25)
DX: K31.811 Angiodysplasia of stomach and duodenum with bleeding (principal); D62 Acute posthemorrhagic anemia; E87.1 Hypo-osmolality and hyponatremia; N18.30 Chronic kidney disease, stage 3 unspecified; G40.909 Epilepsy, unspecified, not intractable, without status epilepticus; E11.22 Type 2 diabetes mellitus with diabetic chronic kidney disease; I12.9 Hypertensive chronic kidney disease with stage 1 through stage 4 chronic kidney disease, or unspecified chronic kidney disease; F32.A Depression, unspecified; Z79.4 Long term (current) use of insulin; K21.9 Gastro-esophageal reflux disease without esophagitis; E78.5 Hyperlipidemia, unspecified; E11.42 Type 2 diabetes mellitus with diabetic polyneuropathy; K44.9 Diaphragmatic hernia without obstruction or gangrene; K57.30 Diverticulosis of large intestine without perforation or abscess without bleeding; F41.9 Anxiety disorder, unspecified; R79.89 Other specified abnormal findings of blood chemistry; Z87.891 Personal history of nicotine dependence; Z79.84 Long term (current) use of oral hypoglycemic drugs; Z79.899 Other long term (current) drug therapy
CPT/HCPCS: 36415; 70450; 71045; 72125; 73630; 80048; 80053; 82274; 82728; 82962; 83036; 83540; 83550; 83735; 84484; 85014; 85018; 85025; 85610; 85730; 86850; 86900; 86901; 93005; 94668; 97802; 99284; P9016; A4216; J2405

== ENCOUNTER → 2024-08-12 | Outpatient (CLI) | payer MEDICARE, BC, SELFPAY ==
[2024-08-12 11:32] LABS: Absolute Lymphocyte Count 2.78 X10^3/uL (0.83-4.51); Absolute Neutrophil Count 4.2 X10^3/uL (2.0-7.7); Basophil# 0.05 X10^3/uL; Basophil% 0.7 % (0-1); Eosinophil# 0.22 X10^3/uL; Eosinophils% 2.9 % (0-5); Hematocrit 34.1 % (37-47); Hemoglobin 10.7 g/dL (12.0-15.0); Lymphocyte # 2.78 X10^3/ul (0.83-4.51); Lymphocyte % 36.7 % (19-41); Mean Corp Hgb Conc 31.4 g/dL (32-36); Mean Corpuscular Hgb 25.5 pg (27.0-32.0); Mean Corpuscular Volume 81.2 fL (81-99); Mean Platelet Vol. 10.1 fl (6.2-12.0); Monocyte# 0.34 X10^3/uL; Monocyte% 4.5 % (0-10); NRBC Flagged by Analyzer 0 % (0-5); Neutrophil # 4.17 X10^3/uL (2.7-7.7); Neutrophil % 54.9 % (47-70); Platelet Count 277 K/mm3 (150-450); RBC Distribution Width CV 13.4 % (11.6-14.6); RBC Distribution Width SD 39.7 fl (35.1-43.9); White Blood Count 7.6 K/mm3 (4.4-11.0)
[2024-08-12 12:11] LABS: Iron 33 ug/dL (50-170)
== END | disposition home or self-care (01) ==
LOC: LAB 10:35
PROVIDERS: PCP Family Medicine; Referring Provider Student in an Organized Health Care Education/Training Program; Visit Provider Student in an Organized Health Care Education/Training Program
DX: D64.9 Anemia, unspecified (principal)
CPT/HCPCS: 36415; 83540; 85025

== ENCOUNTER → 2024-09-17 | Outpatient (CLI) | payer MEDICARE, BC, SELFPAY ==
[2024-09-17 17:10] LABS: Hemoglobin 10.5 g/dL (12.0-15.0); Mean Corp Hgb Conc 30.9 g/dL (32-36); Mean Corpuscular Volume 77.8 fL (81-99); Platelet Count 226 K/mm3 (150-450); RBC Distribution Width CV 13.7 % (11.6-14.6); RBC Distribution Width SD 39.2 fl (35.1-43.9); Red Blood Count 4.37 M/mm3 (4.2-5.4)
[2024-09-17 18:06] LABS: ALB/GLOB Ratio 1.3 RATIO (0.9-2.4); AST(SGOT) 17 U/L (<=31); Alanine Aminotransfer ALT/SGPT 9 U/L (<=34); Albumin, Serum 4.2 g/dL (3.4-4.8); Alkaline Phosphatase 113 U/L (35-104); Anion Gap 10 (5-15); BUN 18 mg/dL (4-19); BUN/Creat Ratio 18.2 RATIO (10-20); Calcium,Total 9.4 mg/dL (7.6-11.0); Carbon Dioxide 27.5 mmol/L (21.0-32.0); Chloride 103 mmol/L (98-108); Creatinine, Serum 0.97 mg/dL (0.70-1.20); EST Glomerular Filtration Rate 65 (>60); Ferritin 11 ng/mL (22-378); Globulin 3.2 g/dL (2.2-4.2); Glucose 163 mg/dL (70-99); Iron 26 ug/dL (50-170); Potassium 4.5 mmol/L (3.3-5.1); Protein, Total 7.4 g/dL (5.9-8.4); Sodium Level 141 mmol/L (133-145); Total Bilirubin 0.28 mg/dL (0.00-1.30); Vitamin B12 307 pg/mL (180-914)
[2024-09-17 18:45] LABS: Absolute Lymphocyte Count 3.71 X10^3/uL (0.83-4.51); Absolute Neutrophil Count 3.8 X10^3/uL (2.0-7.7); Basophil# 0.05 X10^3/uL; Basophil% 0.6 % (0-1); Eosinophil# 0.24 X10^3/uL; Hematocrit 33.9 % (37-47); Hemoglobin 10.7 g/dL (12.0-15.0); Lymphocyte # 3.71 X10^3/ul (0.83-4.51); Lymphocyte % 45.7 % (19-41); Mean Corp Hgb Conc 31.6 g/dL (32-36); Mean Corpuscular Hgb 24.5 pg (27.0-32.0); Mean Corpuscular Volume 77.8 fL (81-99); Mean Platelet Vol. 10.2 fl (6.2-12.0); Monocyte# 0.34 X10^3/uL; Monocyte% 4.2 % (0-10); NRBC Flagged by Analyzer 0 % (0-5); Neutrophil # 3.75 X10^3/uL (2.7-7.7); Neutrophil % 46.3 % (47-70); Platelet Count 229 K/mm3 (150-450); RBC Distribution Width CV 13.8 % (11.6-14.6); RBC Distribution Width SD 39.5 fl (35.1-43.9); Red Blood Count 4.36 M/mm3 (4.2-5.4); White Blood Count 8.1 K/mm3 (4.4-11.0)
[2024-09-17 18:50] LABS: Erythrocyte Sedimentation Rate 6 mm/hr (0-30)
[2024-09-17 23:02] LABS: CRP < 3.00 mg/L (0.0-3.0)
== END | disposition home or self-care (01) ==
LOC: LAB 16:13
PROVIDERS: PCP Family Medicine; Referring Provider Student in an Organized Health Care Education/Training Program; Visit Provider Student in an Organized Health Care Education/Training Program
DX: K52.9 Noninfective gastroenteritis and colitis, unspecified (principal); D64.9 Anemia, unspecified
CPT/HCPCS: 36415; 80053; 82607; 82728; 83540; 84443; 85025; 85027; 85652; 86140

== ENCOUNTER → 2024-11-03 | Outpatient (CLI) | payer MEDICARE, BC, SELFPAY | END | disposition home or self-care (01) | LOC: LABSPEC 09:27 | PROVIDERS: PCP Family Medicine; Referring Provider Family Medicine; Visit Provider Family Medicine | DX: E11.9 Type 2 diabetes mellitus without complications (principal) | CPT/HCPCS: 82043; 82570 ==

== ENCOUNTER → 2024-11-19 | Outpatient (CLI) | payer MEDICARE, SELFPAY ==
[2024-11-19 10:07] LABS: Absolute Lymphocyte Count 2.43 X10^3/uL (0.83-4.51); Absolute Neutrophil Count 3.7 X10^3/uL (2.0-7.7); Basophil# 0.04 X10^3/uL; Basophil% 0.6 % (0-1); Eosinophil# 0.18 X10^3/uL; Eosinophils% 2.7 % (0-5); Hemoglobin 12.8 g/dL (12.0-15.0); Lymphocyte # 2.43 X10^3/ul (0.83-4.51); Lymphocyte % 36.1 % (19-41); Mean Corp Hgb Conc 32.8 g/dL (32-36); Mean Corpuscular Hgb 26.1 pg (27.0-32.0); Mean Corpuscular Volume 79.4 fL (81-99); Mean Platelet Vol. 9.6 fl (6.2-12.0); Monocyte# 0.34 X10^3/uL; Monocyte% 5.1 % (0-10); NRBC Flagged by Analyzer 0 % (0-5); Neutrophil # 3.72 X10^3/uL (2.7-7.7); Neutrophil % 55.2 % (47-70); Platelet Count 203 K/mm3 (150-450); RBC Distribution Width CV 17.8 % (11.6-14.6); RBC Distribution Width SD 50.9 fl (35.1-43.9); Red Blood Count 4.91 M/mm3 (4.2-5.4); White Blood Count 6.7 K/mm3 (4.4-11.0)
[2024-11-19 11:37] LABS: Ferritin 39 ng/mL (22-378); Iron 89 ug/dL (50-170)
== END | disposition home or self-care (01) ==
LOC: LAB 09:37
PROVIDERS: PCP Family Medicine; Referring Provider Student in an Organized Health Care Education/Training Program; Visit Provider Student in an Organized Health Care Education/Training Program
DX: D64.9 Anemia, unspecified (principal); K52.9 Noninfective gastroenteritis and colitis, unspecified
CPT/HCPCS: 36415; 82728; 83540; 85025

== ENCOUNTER → 2024-11-24 | Outpatient (CLI) | payer MEDICARE, BC, SELFPAY ==
--- NOTE | 2024-11-24 10:10 | ECHOCS_ITS ---
Reason For Study Reason For Study: Murmur Procedure This was a 2D Doppler, Color Flow transthoracic echocardiogram. Contrast injection was performed. Exam performed in department. Left Ventricle Normal size and thickness. The LV systolic function is normal. EF is 65 %. Normal diastology for age. Right Ventricle Normal right ventricle. Atria The left and right atria are normal. Mitral Valve Suspect chordal BRYN. Normal resting LVOT gradient. Peak gradient 37 mmHg with Valsalva. Recommend cardiac MRI for further evaluation. Trivial mitral valve insufficiency. Tricuspid Valve Mild tricuspid valve insufficiency. Normal pulmonary artery pressure. Aortic Valve Trisinus/trileaflet aortic valve. Pulmonic Valve The pulmonic valve is not well visualized. Great Vessels Normal sized aortic root. Pericardium/Pleural No pericardial effusion. Medication 22 gauge I.V. with prn adaptor inserted into right arm. Diluted definity 2ml given slow IV push to enhance endocardial definition. MMode/2D Measurements & Calculations LVIDd: 3.7 cm IVSd: 0.84 cm LVOT diam: 2.0 cm LVIDs: 2.6 cm LVPWd: 1.1 cm RVDd: 3.3 cm FS: 28.8 % LVOT area: 3.1 cm2 Ao root diam: 3.1 cm asc Aorta Diam: 3.5 cm LAV(MOD- bp): 29.7 ml LAV(MOD- bp) Indexed: 17.7 ml/m2 LAV(MOD- sp2): 32.6 ml LAV(MOD- sp4): 24.9 ml SV(MOD-sp4): 52.5 ml SV(sp4- el): 54.7 ml LVAd ap4: 26.8 cm2 LVLd ap4: 7.6 cm SI(MOD-sp4): 31.3 ml/m2 EDV(MOD-sp4): 77.4 ml EDV(sp4-el): 80.3 ml LVAs ap4: 12.9 cm2 LVLs ap4: 5.5 cm ESV(MOD-sp4): 24.9 ml ESV(sp4-el): 25.5 ml EF(MOD-sp4): 67.8 % EF(sp4-el): 68.2 % LA A4 area: 12.3 cm2 LA dimension(2D): 3.3 cm RA A4 area: 8.9 cm2 TAPSE: 1.8 cm Time Measurements MV dec time: 0.22 sec Doppler Measurements & Calculations MV E max dena: 63.0 cm/sec Lat Peak E' Dean: 11.4 cm/sec Med Peak E' Dean: 8.4 cm/sec MV A max dean: 68.0 cm/sec E/E' lat: 5.5 E/E' med: 7.5 MV E/A: 0.93 MV V2 max: 88.4 cm/sec MV P1/2t max dean: 86.3 cm/sec Ao V2 max: 179.5 cm/sec MV max P.1 mmHg MV P1/2t: 78.1 msec Ao max P.9 mmHg MV V2 mean: 47.1 cm/sec MV dec slope: 323.4 cm/sec2 Ao V2 mean: 129.2 cm/sec MV mean P.1 mmHg MVA(P1/2t): 2.8 cm2 Ao mean P.5 mmHg MV V2 VTI: 24.1 cm Ao V2 VTI: 42.6 cm MVA(VTI): 4.7 cm2 AV (velocity ratio): 0.85 TRENA(I,D): 2.6 cm2 TRENA(V,D): 2.7 cm2 LV V1 max: 157.2 cm/sec MR max dean: 537.1 cm/sec SV(LVOT): 112.0 ml LV V1 max P.9 mmHg MR max P.4 mmHg LV V1 mean P.1 mmHg LV V1 mean: 103.3 cm/sec LV V1 VTI: 36.3 cm PA V2 max: 100.5 cm/sec TR max dean: 254.0 cm/sec TR max P.8 mmHg ECHO/Echo Complete W/ Contrast Interpretation Summary The LV systolic function is normal. EF is 65 %. Suspect chordal BRYN. Normal resting LVOT gradient. Peak gradient 37 mmHg with V alsalva. Recommend cardiac MRI for further evaluation. Mild tricuspid valve insufficiency. Ordering Physician: Morgan Levy Referring Physician: Morgan Levy Performed By: Andrey Molina RCS
== END | disposition home or self-care (01) ==
LOC: CVS 10:10
PROVIDERS: PCP Family Medicine; Referring Provider Family Medicine; Visit Provider Family Medicine
DX: R01.1 Cardiac murmur, unspecified (principal)
CPT/HCPCS: 93306; Q9957; A4216; C8929

== ENCOUNTER → 2024-11-25 | Outpatient (CLI) | payer MEDICARE, SELFPAY ==
[2024-11-26 19:08] LABS: Calprotectin, Stool 132 ug/g (0-120)
== END | disposition home or self-care (01) ==
LOC: LABSPEC 11:44
PROVIDERS: PCP Family Medicine; Referring Provider Student in an Organized Health Care Education/Training Program; Visit Provider Student in an Organized Health Care Education/Training Program
DX: K52.9 Noninfective gastroenteritis and colitis, unspecified (principal)
CPT/HCPCS: 83993

== ENCOUNTER → 2024-12-07 | Outpatient (CLI) | payer MEDICARE, SELFPAY ==
[2024-12-09 16:09] LABS: Calprotectin, Stool 125 ug/g (0-120)
== END | disposition home or self-care (01) ==
LOC: LABSPEC 12:07
PROVIDERS: PCP Family Medicine; Referring Provider Student in an Organized Health Care Education/Training Program; Visit Provider Student in an Organized Health Care Education/Training Program
DX: K52.9 Noninfective gastroenteritis and colitis, unspecified (principal)
CPT/HCPCS: 83993

== ENCOUNTER → 2025-01-20 | Outpatient (CLI) | payer MEDICARE, BC, SELFPAY ==
--- NOTE | 2025-01-20 11:13 | RAD_ITS ---
PROCEDURE: ANKLE MIN 3 VIEWS 01/20/2025 REASON FOR EXAM: PAIN TECHNIQUE: ANKLE MIN 3 VIEWS COMPARISON: Left ankle radiographs 02/06/2020. FINDINGS: Bones: No acute fracture. No aggressive osseous lesions. Joints: Normal alignment. Mortise appears intact. No effusion. Soft tissues: Soft tissues are unremarkable. RAD/Ankle min 3 Views IMPRESSION: NEGATIVE ANKLE SERIES Reading Location: [id number]
--- NOTE | 2025-01-20 11:13 | RAD_ITS ---
PROCEDURE: FOOT MIN 3 VIEWS 01/20/2025 REASON FOR EXAM: PAIN TECHNIQUE: FOOT MIN 3 VIEWS COMPARISON: None. FINDINGS: Bones: No acute fracture. No aggressive osseous lesions. Diffuse bone demineralization. Joints: Normal alignment. Mild degenerative changes. Soft tissues: Soft tissues are unremarkable. Other: No radiopaque foreign body. RAD/Foot min 3 Views IMPRESSION: DEGENERATIVE OSTEOARTHROSIS. NO ACUTE FINDINGS. Reading Location: [id number]
== END | disposition home or self-care (01) ==
LOC: MTRAD 11:13
PROVIDERS: PCP Family Medicine; Referring Provider Physician Assistant; Visit Provider Physician Assistant
DX: M25.572 Pain in left ankle and joints of left foot (principal); M79.672 Pain in left foot
CPT/HCPCS: 73610; 73630

== ENCOUNTER → 2025-02-24 | Outpatient (CLI) | payer MEDICARE, BC, SELFPAY ==
[2025-02-24 10:03] LABS: Hematocrit 39.6 % (37-47); Hemoglobin 13.7 g/dL (12.0-15.0); Immature Granulocytes Count 0.020 X10^3/uL (0.0-0.0); Mean Corp Hgb Conc 34.6 g/dL (32-36); Mean Corpuscular Volume 83.5 fL (81-99); Mean Platelet Vol. 10.1 fl (6.2-12.0); NRBC Flagged by Analyzer 0 % (0-5); Platelet Count 208 K/mm3 (150-450); RBC Distribution Width CV 12.7 % (11.6-14.6); RBC Distribution Width SD 38.5 fl (35.1-43.9); Red Blood Count 4.74 M/mm3 (4.2-5.4); White Blood Count 7.9 K/mm3 (4.4-11.0)
[2025-02-24 11:11] LABS: AST(SGOT) 17 U/L (<=31); Alanine Aminotransfer ALT/SGPT 14 U/L (<=34); Albumin, Serum 3.9 g/dL (3.4-4.8); Alkaline Phosphatase 115 U/L (35-104); Anion Gap 10 (5-15); BUN 16 mg/dL (4-19); BUN/Creat Ratio 17.5 RATIO (10-20); Calcium,Total 9.1 mg/dL (7.6-11.0); Carbon Dioxide 24.9 mmol/L (21.0-32.0); Chloride 102 mmol/L (98-108); Cholesterol 136 mg/dL (<=200); Globulin 3.1 g/dL (2.2-4.2); Glucose 206 mg/dL (70-99); Low Density Lipoprotein Calc. 36 mg/dL; Potassium 4.2 mmol/L (3.3-5.1); Triglycerides 316 mg/dL; Very Low Density Lipoprotein 63 mg/dL (5-40); Vitamin D,25 Hydroxy 54.7 ng/mL (30-100); cholesterol:hdl ratio screen 3.68
[2025-02-24 15:11] LABS: Ferritin 42 ng/mL (22-378); Iron 80 ug/dL (50-170); Iron Binding Capacity,Total 321 ug/dL (250-450); Iron Binding Capacity,Unsat 241 ug/dL (228-428)
[2025-02-24 15:12] LABS: Creatinine, Urine (random) 162.00 mg/dL (28.00-217.00)
[2025-02-24 15:47] LABS: Microalbumin,Random Urine 511.0 mg/L (<20 mg/L)
== END | disposition home or self-care (01) ==
LOC: LAB 09:43
PROVIDERS: Student in an Organized Health Care Education/Training Program; PCP Family Medicine; Referring Provider Nurse Practitioner Family; Visit Provider Nurse Practitioner Family
DX: E11.9 Type 2 diabetes mellitus without complications (principal); D64.9 Anemia, unspecified; E55.9 Vitamin D deficiency, unspecified
CPT/HCPCS: 36415; 80053; 80061; 82043; 82306; 82570; 82728; 83540; 83550; 84443; 85025

== ENCOUNTER → 2025-04-15 | Outpatient (CLI) | payer MEDICARE, BC, SELFPAY ==
--- OUTSIDE RECORDS SUMMARY | 2025-04-15 07:43 | XMS RPT_ITS | CCD ---
Author Organization [facility] Care Team Providers Care Bunch Maker Name Role Phone HEYDIWES CAMEJOT Unavailable Unavailable MUNJAPARA, VALJI Unavailable Unavailable MUNJAPARA, VALJI Unavailable Unavailable MUNJAPARA, VALJI Unavailable Unavailable Melanie Levy MD Primary Care Provider Dr. Javier Levy Primary Care Provider Dr. Javier Levy Referring Provider LOY Verduzco Attending Provider Melanie Levy MD Primary Care Provider Melanie eLvy MD Primary Care Provider Dr. Javier Levy Primary Care Provider Dr. Javier Levy Referring Provider LOY Verduzco Attending Provider Dr. Javier Levy Primary Care Provider Dr. Jay Hernández Attending Provider Dr. Javier Levy Primary Care Provider Dr. Jay Hernández Attending Provider [phone] Melanie Levy MD Primary Care Provider HENRI DICKINSON Referring Unavailable MELANIE LEVY Primary Care UnavailMELANIE Monson Primary Care Unavailsean e DENICE TERRELL Referring Unavailable MELANIE LEVY Primary Care Unavailsean e RICHMOND PHOENIX Referring Unavailable JIE TERRY Attending Unavailable JIE TERRY Admitting Unavailable Dr. Melanie Levy Primary Care Provider [phone] Sementi, Dr. Henri Polanco Admit Provider Semenmarlys, Dr. Henri Polanco Attending Provider Sementi, Dr. Henri Polanco Other Provider MELANIE LEVY Primary Care Unavailsean Levy MD, Melanie Primary Care Provider POWER PAUL Attending Unavailable NIKOLE JARRELL Attending Unavailable NIKOLE JARRELL Attending Unavailable Cam ARIAS, Dr. Mora Primary Care Provider Dr. David Daniels DO Emergency Provider lEisa ARIAS, Dr. Mai Perry Admit Provider Elisa ARIAS, Dr. Mai Perry Attending Provider Elisa ARIAS, Dr. Mai Perry Other Provider Elisa ARIAS, Dr. Mai Perry Referring Provider Dr. Marielena Roberts DO Attending Provider Armando NEUMANN, Dr. Peguero Other Provider Dr. Ramez Khan DO Attending Provider Cam ARIAS, Dr. Mora Referring Provider Ivelisse Rain Attending Provider Ivelisse Rain Referring Provider Mick LEAL-Marli Qureshi Attending Provider Dr. Melanie Levy MD Other Provider Dr. Melanie Levy MD Attending Provider [phone] Dr. Melanie Levy MD Primary Care Provider Dr. David Daniels DO Emergency Provider Elisa ARIAS, Dr. Mai Perry Admit Provider Elisa ARIAS, Dr. Mai Perry Other Provider Armando NEUMANN, Dr. Peguero Other Provider Dr. Ramez Khan DO Attending Provider Dr. Melanie Levy MD Primary Care Provider Bill DO, Dr. Myrick Attending Provider Miguelito ARIAS, Dr. Putnam Attending Provider Dr. Melanie Levy MD Primary Care Provider Dr. Melanie Levy MD Referring Provider Ivelisse Rain Attending Provider Ivelisse Rain Referring Provider Luke Mast Attending Provider Luke Mast Referring Provider [phone] Andrew ARIAS, Dr. Marks Attending Provider [phone] Adam Alvarado MD Attending Provider Mick ELECTRONIC TECHNICIAN-CMarli Attending Provider Cam ARIAS, Dr. Mora Primary Care Provider Dr. Melanie Levy MD Referring Provider Dr. Melanie Levy MD Attending Provider Mick ELECTRONIC TECHNICIAN-CMarli Referring Provider Ivelisse Rain Other Provider Raoulney, Christopher Primary Care Unavailable Ivelisse Ramirez Attending Unavailable Ivelisse Ramirez Referring Unavailable Ranney, Christopher Referring Unavailable Ranney, Christopher Primary Care Unavailable RaoulneyFaustoer Attending Unavailable Ranney, Christopher Referring Unavailable Ranney, Christopher Primary Care Unavailable Adam Alvarado Attending Unavailable Ranney, Christopher Primary Care Unavailable AtanasIvelisse stark Referring Unavailable AtanasIvelisse stark Attending Unavailable Ranney, Christopher Referring Unavailable Ranney, Christopher Primary Care Unavailable AtanasovIvelisse Attending Unavailable Power Paul Attending Unavailable Power Paul Referring Unavailable Ranney, Christopher Primary Care Unavailable Ranney, Christnadineer Attending Unavailable Ranney, Christopher Referring Unavailable Ranney, Christopher Primary Care Unavailable Ranney, Christopher Primary Care Unavailable Marli Barton Attending Unavailable Ranney, Christopher Primary Care Unavailable AtaIvelisse cassidy Attending Unavailable Atanasov, Ivelisse Referring Unavailable Ranney, Christopher Referring Unavailable Ranney, Christopher Primary Care Unavailable Kendrick Morales Attending Unavailable Ranney, Christopher Referring Unavailable Ranney, Christopher Primary Care Unavailable Luke Mast Attending Unavailable White, Mai L Referring Unavailable White, Mai L Admitting Unavailable White, Mai L Consulting Unavailable White, Mai L Attending Unavailable Ranney, Christopher Primary Care Unavailable Ranney, Christopher Primary Care Unavailable Jersey Farley Attending Unavailable White, Mai L Referring Unavailable White, Mai L Admitting Unavailable White, Mai L Consulting Unavailable Ranney, Christopher Primary Care Unavailable Marielena Roberts Attending Unavailable Marielena Roberts Consulting Unavailable FriendRamez Attending Unavailable Ranney, Christopher Referring Unavailable Ranney, Christopher Primary Care Unavailable Ramez Khan Attending Unavailable Ranney, Christopher Referring Unavailable Ranney, Christopher Primary Care Unavailable Ivelisse Ramirez Attending Unavailable Ranney, Christopher Referring Unavailable Ranney, Christopher Primary Care Unavailable Marli Barton Attending Unavailable Ranney, Christopher Referring Unavailable Ranney, Christopher Primary Care Unavailable Ivelisse Ramirez Attending Unavailable Ranney, Christopher Primary Care Unavailable Marli Barton Attending Unavailable Marli Barton Referring Unavailable AtanasIvelisse stark Consulting Unavailable Ranney, Christopher Primary Care Unavailable Luke Mast Attending Unavailable Luke Mast Referring Unavailable Ranney, Christopher Consulting Unavailable Ranney, Christopher Primary Care Unavailable Ivelisse Ramirez Attending Unavailable Ivelisse Ramirez Referring Unavailable Ranney, Christopher Primary Care Unavailable AtaIvelisse cassidy Referring Unavailable Ivelisse Ramirez Attending Unavailable Ranney, Christopher Referring Unavailable Ranney, Christopher Primary Care Unavailable Marli Barton Attending Unavailable Ranney, Christopher Referring Unavailable Ranney, Christopher Primary Care Unavailable Ivelisse Ramirez Attending Unavailable Ranney, Christopher Referring Unavailable Ranney, Christopher Primary Care Unavailable Marli Barton Attending Unavailable White, Mai L Referring Unavailable White, Mai L Admitting Unavailable White, Mai L Consulting Unavailable Marielena Roberts Attending Unavailable Ranney, Christopher Primary Care Unavailable Allergies Allergy Classification Reported Allergen(s) Allergy Type Date of Onset Reaction(s) Facility (20 sources) cyclobenzaprine; Translations: [CYCLOBENZAPRINE] Drug Allergy 0 Other: See Comments, Mental Status Change [facility] Comment on above: Hallucinations (20 sources) oxyCODONE Drug Allergy 4 Mental Status Change [facility] Comment on above: hallucinations (1 source) cyclobenzaprine Drug Allergy 5 [facility] Repository (1 source) oxyCODONE Drug Allergy 5 [facility] Repository Medications Current Medications Medication Drug Class(es) Dates Sig (Normalized) Sig (Original) ascorbic acid 500 mg oral capsule (15 sources) Vitamin C Start: 09-25-2023 take 2 capsules by mouth once daily Ascorbic Acid (Vitamin C) 500 mg capsule Active 1000 mg PO DAILY September 25, 2023 12:00am supplement give at the same time as iron Start: 09-25-2023 take 1000 mg by mouth once selma ly Ascorbic Acid (Vitamin C) Active 1000 MG PO DAILY September 25, 2023 12:00am give at the same time as iron atorvastatin 20 mg oral tablet (20 sources) HMG-CoA Reductase Inhibitor Start: 10-04-2023 End: 06-05-2024 Atorvastatin 20 mg Tablet Active 20 mg PO AT BEDTIME October 04, 2023 12:00am cholesterol TAKE THIS MEDICATION AT SUPPER 24 hr buPROPion hydrochloride 150 mg extended release oral tablet (20 sources) Aminoketone Start: 10-04-2023 take 1 tablet by mouth once daily Bupropion Hcl 150 mg Tablet Extended Release 24 Hr Active 150 mg PO DAILY 30 October 04, 2023 12:00am mood carvedilol 12.5 mg oral tablet (16 sources) alpha-Adrenergic Sudha, beta-Adrenergic Sudha Start: 09-25-2023 End: 10-25-2023 take 1 tablet by mouth twice daily at mealtime carvedilol (COREG) 12.5 mg tablet 1 tablet by ORAL/FEEDING TUBE route two times a day with meals. 60 tablet 0 09/25/2023 10/25/2023 Active Start: 09-25-2023 End: 10-04-2023 take 1 tablet by mouth twice daily at mealtime Carvedilol (Coreg) 12.5 mg tablet Discontinued 12.5 mg PO TWICE A DAY September 25, 2023 12:00am October 04, 2023 2:40pm bp must administer with a meal/food Comment on above: 1 tablet by ORAL/FEE DING TUBE route two times a day with meals. cholecalciferol 0.05 mg oral capsule (20 sources) Vitamin D Start: take 1 capsule by mouth once daily Cholecalciferol (Vitamin D3) (Vitamin D3) 50 mcg (2,000 unit) capsule Active 25 ug PO DAILY January 31, 2024 1:28pm vitamin Start: 02-06-2020 End: 01-31-2024 take 1 capsule by mouth once daily Cholecalciferol (Vitamin D3) (Vitamin D3) 50 mcg (2,000 unit) capsule Discontinued 50 ug PO DAILY 30 0 October 04, 2023 2:59pm January 31, 2024 1:32pm vitamin Start: 02-06-2020 End: 09-17-2023 take 1 capsule by mouth once daily Cholecalciferol (Vitamin D3) 2,000 UNIT capsule Discontinued 2000 U PO DAILY February 06, 2020 12:00am September 17, 2023 6:27pm vitamin Comment on above: Take by mouth. Take by mouth once d aily. ferrous sulfate 325 mg oral tablet (20 sources) Start: 01-25-2025 take 1 tablet by mouth twice daily Ferrous Sulfate 325 mg (65 mg iron) tablet Active 325 mg PO TWICE A DAY January 25, 2025 12:00am Start: 09-25-2023 End: 10-25-2023 take 1 tablet by mouth every other day ferrous sulfate (IRON) 325 mg (65 mg iron) tablet Take 1 tablet by mouth every other day. 0 09/25/2023 10/25/2023 Active Start: 09-25-2023 End: 05-07-2024 take 1 tablet by mouth every other day at breakfast Ferrous Sulfate (Feosol) 325 mg (65 mg iron) tablet Discontinued 325 mg PO EVERY OTHER DAY 30 0 October 04, 2023 2:59pm May 07, 2024 11:53am iron TAKE THIS WITH BREAKFAST AND A VITAMIN C Comment on above: Take 1 tablet by sarai th every other day. fluconazole 200 mg oral tablet (4 sources) Azole Antifungal Start: 2 End: take 1 tablet by mouth once daily fluconazole (DIFLUCAN) 200 mg tablet Indications: Fungus present in urine Take 1 tablet by mouth once daily for 14 days. 14 tablet 0 09/25/2021 10/09/2021 Active Comment on above: Take 1 tablet by sarai once daily for 14 days. FLUoxetine 20 mg oral capsule (20 sources) Serotonin Reuptake Inhibitor Start: End: take 1 capsule by mouth once daily FLUoxetine (PROZAC) 20 mg capsule 1 capsule by ORAL/FEEDING TUBE route once daily. 30 capsule 0 09/26/2023 10/26/2023 Active Start: 09-25-2023 End: 10-04-2023 take 1 capsule by mouth once daily at breakfast Fluoxetine (Prozac) 20 mg capsule Active 20 mg PO DAILY October 04, 2023 2:59pm mood TAKE WITH BREAKFAST Comment on above: 1 capsule by ORAL/FE EDING TUBE route once daily. gabapentin 100 mg oral capsule (20 sources) Anti-epileptic Agent Start: 10-04-19 take 1 capsule by mouth at bedtime for pain Gabapentin 100 mg Capsule Active 100 mg PO AT BEDTIME October 04, 2023 12:00am nerve pain TAKE AT BEDTIME FOR THE NERVE PAIN IN THE FEET hydrALAZINE hydrochloride 50 mg oral tablet (16 sources) Arteriolar Vasodilator Start: 09-25-19 End: 10-25-19 take 1 tablet by mouth every eight hours hydrALAZINE (APRESOLINE) 50 mg tablet 1 tablet by ORAL/FEEDING TUBE route every 8 hours. 90 tablet 0 09/25/2023 10/25/2023 Active Start: 09-25-2023 End: 10-04-2023 take 1 tablet by mouth three times daily Hydralazine 50 mg tablet Discontinued 50 mg PO THREE TIMES A DAY September 25, 2023 12:00am October 04, 2023 2:43pm bp Comment on above: 1 tablet by ORAL/FEE DING TUBE route every 8 hours. hydroCHLOROthiazide 12.5 mg / lisinopril 20 mg oral tablet (20 sources) Thiazide Diuretic, Angiotensin Converting Enzyme Inhibitor Start: 11-07-2023 Lisinopril-Hydrochl orothiazide 20-12.5 mg tablet Active 1 {tbl} PO daily May 07, 2024 1:00am blood pressure Start: 04-21-2020 End: 09-25-2023 Lisinopril-Hydrochlorothiazi de 20-25 mg tablet Discontinued 2 {tbl} PO DAILY April 21, 2020 12:00am September 25, 2023 8:41pm Start: 04-21-2020 End: 09-25-2023 take 2 tablets by mouth once daily Lisinopril-Hydrochlorothiazide Discontin ued 2 TABLET PO DAILY April 21, 2020 12:00am September 25, 2023 8:41pm Start: 05-08-2019 End: 02-08-2020 Lisinopril-Hydrochlorothiazi de 20-25 mg tablet Discontinued 1 {tbl} PO DAILY May 08, 2019 1:00am February 08, 2020 3:31pm htn Start: 05-08-2019 End: 02-08-2020 take 1 tablet by mouth once daily Lisinopril-Hydrochlorothiazide Discontin ued 1 TABLET PO DAILY May 08, 2019 1:00am February 08, 2020 3:31pm Comment on above: Take 1 tablet by sarai th once daily. insulin degludec (2 sources) Insulin Analog Start: 10-04-2023 Insulin Degludec Active 15 UNIT SC AT BEDTIME 2 October 04, 2023 2:59pm 15 UNITS AT BEDTIME 3 ml insulin glargine 100 unt/ml pen injector (20 sources) Insulin Analog Start: 07-26-2024 Insulin Glargine (Lantus Solostar U-100 Insulin) 100 unit/mL (3 mL) insulin pen Active 5 U SC EVERY EVENING July 26, 2024 1:00am diabetes Start: 09-25-2023 Lantus SoloSta r 100 UNIT/ML pen Inject 15 Units under the skin at bedtime 09/25/2023 Active Start: 09-25-2023 LANTUS SOLOSTA R U-100 INSULIN 100 unit/mL (3 mL) Inject 15 Units subcutaneously daily at bedtime. 0 09/25/2023 Active Start: 09-25-2023 End: 10-04-2023 Insulin Glargine (Lantus Vilma ostar U-100 Insulin) 100 unit/mL (3 mL) insulin pen Discontinued 15 U SC AT BEDTIME September 25, 2023 12:00am October 04, 2023 2:59pm dm Start: 09-17-2023 End: 09-25-2023 inject 20 [IU] by subcutaneous injection in the morning, then inject 65 [IU] by subcutaneous injection in the evening Insulin Glargine (Insulin Glargine 100 Unit/Ml (3 Ml) Subcutaneous Pen) 100 unit/mL (3 mL) insulin pen Discontinued 0 SC .COMPLEX September 17, 2023 12:00am September 25, 2023 8:41pm DM INJECT 20 UNITS IN THE MORNING AND 65 UNITS IN THE EVENING subcutaneously; Start: 08-23-2021 LANTUS SOLOSTA R U-100 INSULIN 100 unit/mL (3 mL) daily at bedtime. 65 units daily 0 08/23/2021 Suspended Start: 08-23-2021 LANTUS SOLOSTA R U-100 INSULIN 100 unit/mL (3 mL) INJECT 50 UNITS SUBCUTANEOUSLY EVERY DAY AT BEDTIME 0 08/23/2021 Active Start: 04-14-2020 End: 09-17-2023 inject 40 [IU] by subcutaneous injection at bedtime Insulin Glargine Discontinued 40 UNIT SQ AT BEDTIME April 14, 2020 12:00am September 17, 2023 6:28pm Start: 04-14-2020 inject 40 [IU] by fallon bcutaneous injection at bedtime Insulin Glargine Active 40 UNIT SQ AT BEDTIME April 14, 2020 12:00am Comment on above: INJECT 50 UNITS SUBC UTANEOUSLY EVERY DAY AT BEDTIME daily at bedtime. 65 units daily Inject 15 Units subc utaneously daily at bedtime. 3 ml insulin lispro 100 unt/ml pen injector (20 sources) Insulin Analog Start: 05-07-2024 Insulin Lispro (Humalog Kwikpen Insulin) 100 unit/mL insulin pen Active 5 U SC THREE TIMES A DAY May 07, 2024 1:00am diabetes Start: 10-19-2022 End: 09-17-2023 Insulin Lispro (Humalog Kwik pen Insulin) 100 unit/mL insulin pen Discontinued mL SC October 19, 2022 12:00am September 17, 2023 6:28pm Start: 10-19-2022 End: 09-17-2023 Insulin Lispro (Humalog Kwik pen Insulin) 100 unit/mL insulin pen Discontinued ML SC October 19, 2022 12:00am September 17, 2023 6:28pm Start: 05-08-2019 End: 05-21-2019 Insulin Lispro (Humalog U-10 0 Insulin) 100 unit/mL solution Discontinued 0 SC THREE TIMES A DAY May 08, 2019 1:00am May 21, 2019 11:09am 16u with breakfast, 20u with lunch, 20u with supper SC TID; Start: 05-08-2019 End: 05-21-2019 Insulin Lispro (Humalog U-10 0 Insulin) 100 unit/mL solution Discontinued 0 SC THREE TIMES A DAY May 08, 2019 1:00am May 21, 2019 11:09am 16u with breakfast, 20u with lunch, 20u with supper SC TID; Start: 07-12-2018 End: 05-08-2019 Insulin Lispro 100 unit/mL i nsulin pen Discontinued SC 15 25 0 July 12, 2018 1:00am May 08, 2019 2:06pm Start: 07-12-2018 End: 05-08-2019 Insulin Lispro Discontinued SC 15 July 12, 2018 1:00am May 08, 2019 2:06pm INSULIN LISPRO ( HUMALOG KWIKPEN SUBCUTANEOUS) Inject subcutaneously three times daily. 15 with every meal 0 Active INSULIN LISPRO ( HUMALOG KWIKPEN SUBCUTANEOUS) Inject subcutaneously three times daily. 15 with every meal 0 Suspended INSULIN LISPRO ( HUMALOG KWIKPEN SUBCUTANEOUS) Inject subcutaneously three times daily. 16 breakfast 20 lunch 22 dinner 0 Active Comment on above: Inject subcutaneousl y three times daily. 16 breakfast 20 lunch 22 dinner Inject subcutaneousl y three times daily. 15 with every meal insulin lispro (HumaLOG) 100 UNIT/ML patient supplied pump (9 sources) insulin lispro (HumaLOG) 100 UNIT/ML patient supplied pump Inject under the skin 3 times a day Active iv contrast (will be provided with radiology test) (1 source) Start: End: iv contrast (will be provided with radiology test) CT Urogram WO/W Inject, intravenously, once for 1 dose.No IV access, insert saline lock prior to the beginning of sedation, infusion, injection of imaging exam. Discontinue saline lock post exam. If Pt. has a central line or IVAD, may access for administration according to line specific nursing protocol. Once exam is complete flush line and de-access according to line specific nursing protocol in the CT contrast administration guidelines link. 1 Each 0 10/16/2021 10/17/2021 Active Comment on above: CT Urogram WO/W Inje ct, intravenously, once for 1 dose.No IV access, insert saline lock prior to the beginning of sedation, infusion, injection of imaging exam. Discontinue saline lock post exam. If Pt. has a central line or IVAD, may access for administration according to line specific nursing protocol. Once exam is complete flush line and de-access according to line specific nursing protocol in the CT contrast administration guidelines link. metFORMIN hydrochloride 500 mg oral tablet (20 sources) Biguanide Start: End: take 1 tablet by mouth twice daily at breakfast Metformin 500 mg tablet Active 500 mg PO TWICE A DAY 60 0 October 04, 2023 2:59pm diabetes TAKE WITH BREAKFAST AND WITH SUPPER Start: 04-14-2020 take 500 mg by mouth once shravan y Metformin Active 500 MG PO DAILY April 14, 2020 2:18pm Start: 02-08-2020 End: 09-25-2023 take 1 tablet by mouth twice daily Metformin 500 MG tablet extended release 24 hr Discontinued 500 mg PO TWICE A DAY April 14, 2020 2:18pm September 25, 2023 8:41pm dm Start: 07-12-2018 End: 02-08-2020 take 1 tablet by mouth once daily Metformin 500 mg tablet extended release 24 hr Discontinued 500 mg PO DAILY 30 30 0 July 12, 2018 1:00am February 08, 2020 3:35pm dm Comment on above: Take 500 mg by mouth twice daily with meals. 24 hr metoprolol succinate 50 mg extended release oral tablet (20 sources) beta-Adrenergic Sudha Start: 02-03-2025 take 1 tablet by mouth once daily Metoprolol Succinate (Toprol Xl) 50 mg tablet extended release 24 hr Active 50 mg PO daily 90 4 February 03, 2025 12:00am Start: 07-12-2018 End: 09-25-2023 take 1 tablet by mouth once daily Metoprolol Succinate 50 mg tablet extended release 24 hr Discontinued 50 mg PO DAILY 30 30 0 July 12, 2018 1:00am September 25, 2023 8:41pm heart take 1 tablet by once daily metoprolol tartrate, short acting, (LOPRESSOR) 50 mg tablet Take 50 mg by mouth once daily. 0 Suspended take 1 tablet by sarai twice daily metoprolol tartrate, short acting, (LOPRESSOR) 50 mg tablet Take 50 mg by mouth twice daily. 0 Active Comment on above: Take 50 mg by mouth twice daily. Take 50 mg by mouth once daily. omega-3 acid ethyl esters (long term) 1000 mg oral capsule (20 sources) Start: 02-03-2025 Macon-3 Acid Ethyl Esters 1 gram capsule Active 1 NMA PO daily February 03, 2025 12:00am Start: 05-08-2019 End: 01-25-2025 take 1 capsule by mouth once daily Mac[place]-3 Acid Ethyl Esters (Lovaza) 1 gram capsule Discontinued 1 NMA PO DAILY 30 October 04, 2023 2:59pm January 25, 2025 4:15pm supplement Comment on above: Take by mouth. omeprazole 40 mg delayed release oral capsule (20 sources) Proton Pump Inhibitor Start: 02-23-2025 take 1 capsule by mouth once daily Omeprazole 40 mg capsule,delayed release(DR/EC) Active 40 mg PO daily 90 3 February 23, 2025 9:22am Start: 05-08-2019 End: 07-29-2024 take 1 capsule by mouth once daily Omeprazole 40 mg capsule,delayed release(DR/EC) Discontinued 40 mg PO DAILY 30 0 October 04, 2023 2:59pm January 31, 2024 1:31pm gerd Comment on above: Take 40 mg by mouth once daily. 1000 ml sodium chloride 9 mg/ml injection (1 source) Start: End: inject 1 dose intravenously once 0.9 % sodium chloride (NACL 0.9%) infusion Inject 5-30 mL/hr intravenously one time only for 1 dose. Administer at rate defined per CT contrast administration specifications. To be provided with radiology test. 1 Each 0 10/16/2021 10/16/2021 Active Comment on above: Inject 5-30 mL/hr intravenously one time only for 1 dose. Administer at rate defined per CT contrast administration specifications. To be provided with radiology test. Completed/Discontinued Medications Medication Drug Class(es) Dates Sig (Normalized) Sig (Original) acetaminophen 325 mg / HYDROcodone bitartrate 5 mg oral tablet (20 sources) Opioid Agonist Start: 09-14-2023 End: 09-25-2023 Hydrocodone-Acetami nophen 5-325 mg tablet Discontinued 1 {tbl} PO EVERY 6 HOURS as needed for Pain September 17, 2023 12:00am September 25, 2023 8:41pm Start: 09-14-2023 End: 09-25-2023 take 1 tablet by mouth every six hours Hydrocodone-Acetaminophen Discontinued 1 TABLET PO EVERY 6 HOURS September 17, 2023 12:00am September 25, 2023 8:41pm Albuterol Sulfate (20 sources) beta2-Adrenergic Agonist Start: 06-29-2018 End: 07-12-2018 take 1 puff(s) by inhalation every six hours Albuterol Sulfate (Proair Hfa) 90 mcg/actuation HFA aerosol inhaler Discontinued 2 PUFF INHALATION EVERY 6 HOURS 8.5 June 29, 2018 2:39pm July 12, 2018 2:21pm administer with spacer Start: 06-29-2018 End: 07-12-2018 Albuterol Sulfate (Proair Hf a) 90 mcg/actuation HFA aerosol inhaler Discontinued 2 NMA INHALATION EVERY 6 HOURS 8.5 0 June 29, 2018 1:00am July 12, 2018 2:21pm administer with spacer Start: 06-29-2018 End: 07-12-2018 take 1 puff(s) by inhalation every six hours Albuterol Sulfate (Proair Hfa) 90 mcg/actuation HFA aerosol inhaler Discontinued 2 PUFF INHALATION EVERY 6 HOURS 8.5 June 29, 2018 1:00am July 12, 2018 2:21pm administer with spacer amLODIPine 10 mg oral tablet (20 sources) Dihydropyridine Calcium Channel Sudha Start: 09-26-2023 End: 10-26-2023 take 1 tablet by mouth once daily amLODIPine (NORVASC) 10 mg tablet 1 tablet by ORAL/FEEDING TUBE route once daily. 30 tablet 0 09/26/2023 10/26/2023 Active Start: 09-25-2023 End: 02-03-2025 take 1 tablet by mouth once daily after breakfast Amlodipine (Norvasc) 10 mg tablet Discontinued 10 mg PO DAILY 30 0 October 04, 2023 2:59pm February 03, 2025 10:36am bp TAKE THIS MEDICATION IN THE MORNING AFTER BREAKFAST Comment on above: 1 tablet by ORAL/FEE DING TUBE route once daily. amoxicillin 875 mg / clavulanate 125 mg oral tablet (20 sources) Penicillin-class Antibacterial Start: 10-19-2022 End: 10-29-2022 Amoxicillin-Pot Clavulanate 875-125 mg tablet Discontinued 1 {tbl} PO Q12H 20 10 October 19, 2022 12:00am October 28, 2022 12:00am October 29, 2022 12:04am Acute sinusitis, unspecified Start: 10-19-2022 End: 10-29-2022 take 1 tablet by mouth every twelve hours Amoxicillin-Pot Clavulanate Discontinued 1 TABLET PO Q12H 20 October 19, 2022 12:00am October 29, 2022 12:04am Start: 07-12-2018 End: 11-07-2018 Amoxicillin-Pot Clavulanate (Augmentin) 875-125 mg tablet Discontinued 1 {tbl} PO TWICE A DAY 14 0 July 12, 2018 1:00am November 07, 2018 7:36am aspirin 81 mg chewable tablet (20 sources) Platelet Aggregation Inhibitor, Nonsteroidal Anti-inflammatory Drug Start: 02-08-2020 End: 04-15-2020 take 1 tablet by mouth twice daily at mealtime Aspirin 81 MG tablet,chewable Discontinued 81 mg PO TWICE DAILY WITH MEALS April 14, 2020 2:18pm April 15, 2020 10:27am [facility] use for 30 days Start: 05-08-2019 End: 02-08-2020 Aspirin (Adult Low Dose Aspi rin) 81 mg tablet,delayed release (DR/EC) Discontinued 81 mg PO DAILY May 08, 2019 1:00am February 08, 2020 3:31pm heart take 1 tablet by sarai once daily aspirin 325 mg tablet Take 325 mg by mouth once daily. 0 Active Comment on above: Take 325 mg by mouth once daily. cephalexin 500 mg oral capsule (4 sources) Cephalosporin Antibacterial Start: End: take 1 capsule by mouth three times daily cephALEXin (KEFLEX) 500 mg capsule Take 500 mg by mouth three times daily. 0 10/26/2021 04/18/2022 Discontinued Comment on above: Take 500 mg by mouth three times daily. diazePAM 5 mg oral tablet (17 sources) Benzodiazepine Start: 024 End: take 2.5 mg by mouth three times daily Diazepam (Valium) 5 mg tablet Discontinued 2.5 mg PO THREE TIMES A DAY 5 0 September 14, 2023 12:00am September 25, 2023 8:41pm Acute cervical myofascial strain Acute torticollis Strain of muscle, fascia and tendon at neck level, initial encounter Torticollis mascle spasm diclofenac sodium 0.01 mg/mg topical gel (15 sources) Nonsteroidal Anti-inflammatory Drug Start: End: Diclofenac Sodium (Voltaren Arthritis Pain) 1 % gel Discontinued 4 g TOPICAL TWICE DAILY NEEDED as needed for NECK PAIN 100 0 October 04, 2023 2:52pm January 31, 2024 1:29pm APPLY TO THE NECK TWICE A DAY NEEDED FOR NECK PAIN empagliflozin 10 mg oral tablet (15 sources) Sodium-Glucose Cotransporter 2 Inhibitor Start: End: take 1 tablet by mouth once daily at breakfast Empagliflozin 10 mg tablet Discontinued 10 mg PO DAILY 30 0 October 04, 2023 12:00am January 31, 2024 1:30pm TAKE THIS WITH BREAKFAST fluticasone propionate 0.05 mg/actuat metered dose nasal spray (20 sources) Corticosteroid Start: 019 End: take 50 ug nasal route once daily Fluticasone Propionate (Flonase Allergy Relief) 50 mcg/actuation spray,suspension Discontinued 2 NMA INTRANASAL DAILY 15.8 1 July 12, 2018 1:00am November 07, 2018 7:36am administer into each nostril Start: 07-12-2018 End: 11-07-2018 take 1 spray(s) nasal route once daily Fluticasone Propionate (Flonase Allergy Relief) 50 mcg/actuation spray,suspension Discontinued 2 SPRAY INTRANASAL DAILY 15.8 July 12, 2018 1:00am November 07, 2018 7:36am administer into each nostril glimepiride 4 mg oral tablet (20 sources) Sulfonylurea Start: 05-21-2019 End: 02-08-2020 take 1 tablet by mouth twice daily at breakfast Glimepiride 4 mg tablet Discontinued 4 mg PO TWICE A DAY 180 1 July 16, 2019 8:33am February 06, 2020 12:22pm administer with breakfast glipiZIDE 5 mg oral tablet (15 sources) Sulfonylurea Start: 10-04-2023 End: 05-07-2024 take 0.5 tablet by mouth twice daily at breakfast Glipizide 5 mg Tablet Discontinued 2.5 mg PO BID@0730,1630 30 October 04, 2023 12:00am May 07, 2024 11:55am TAKE 1/2 TAB WITH BREAKFAST AND SUPPER Start: 10-04-2023 take 0.5 tablet by m outh twice daily at breakfast Glipizide Active 2.5 MG PO BID@0730,1630 30 October 04, 2023 12:00am TAKE 1/2 TAB WITH BREAKFAST AND SUPPER hydroCHLOROthiazide 12.5 mg oral capsule (20 sources) Thiazide Diuretic Start: 07-12-2018 End: 05-08-2019 take 1 capsule by mouth once daily Hydrochlorothiazide 12.5 mg capsule Discontinued 12.5 mg PO DAILY July 12, 2018 1:00am May 08, 2019 2:05pm ibuprofen 600 mg oral tablet (20 sources) Nonsteroidal Anti-inflammator y Drug Start: 03-04-2020 End: 03-07-2020 take 1 tablet by mouth every eight hours Ibuprofen 600 MG tablet Discontinued 600 mg PO EVERY 8 HOURS 10 3 0 March 04, 2020 12:00am March 06, 2020 12:00am March 07, 2020 12:02am Insulin Degludec 100 unit/mL (3 mL) insulin pen (13 sources) Start: 10-04-2023 End: 07-26-2024 Insulin Degludec 100 unit/mL (3 mL) insulin pen Discontinued 15 U SC AT BEDTIME 2 0 October 04, 2023 2:59pm July 26, 2024 6:35pm 15 UNITS AT BEDTIME Start: 10-04-2023 End: 07-26-2024 Insulin Degludec 100 unit/mL (3 mL) insulin pen Discontinued 15 U SC AT BEDTIME October 04, 2023 2:59pm July 26, 2024 6:35pm 15 UNITS AT BEDTIME 3 ml insulin detemir 100 unt/ml pen injector (20 sources) Insulin Analog Start: 02-06-2020 End: 02-08-2020 inject 39 [IU] by subcutaneous injection at bedtime Insulin Detemir U-100 100 UNITS/ML insulin pen Discontinued 39 U subcut AT BEDTIME February 06, 2020 12:00am February 08, 2020 3:30pm dm Start: 02-06-2020 End: 02-08-2020 inject 39 [IU] by subcutaneous injection at bedtime Insulin Detemir U-100 Discontinued 39 UNITS subcut AT BEDTIME February 06, 2020 12:00am February 08, 2020 3:30pm Start: 05-08-2019 End: 05-21-2019 Insulin Detemir U-100 (Levem ir U-100 Insulin) 100 unit/mL solution Discontinued 50 U SC AT BEDTIME May 08, 2019 1:00am May 21, 2019 11:09am Start: 07-12-2018 End: 05-08-2019 Insulin Detemir U-100 100 un it/mL (3 mL) insulin pen Discontinued SC 15 18 0 July 12, 2018 1:00am May 08, 2019 2:05pm Start: 07-12-2018 End: 05-08-2019 Insulin Detemir U-100 Discontinued SC 15 18 July 12, 2018 1:00am May 08, 2019 2:05pm INSULIN DETEMIR (LEVEMIR FLEXTOUCH SUBCUTANEOUS) Inject subcutaneously. At dinner 0 Active Comment on above: Inject subcutaneously. At dinner Insulin Glargine 100 UNIT/ML solution (13 sources) Start: 04-14-20 End: 09-17-19 inject 40 [IU] by subcutaneous injection at bedtime Insulin Glargine 100 UNIT/ML solution Discontinued 40 U SQ AT BEDTIME April 14, 2020 12:00am September 17, 2023 6:28pm DM Start: 04-14-2020 End: 09-17-2023 inject 40 [IU] by subcutaneous injection at bedtime Insulin Glargine 100 UNIT/ML solution Discontinued 40 U SQ AT BEDTIME April 14, 2020 12:00am September 17, 2023 6:28pm insulin isophane, human 100 unt/ml injectable suspension (20 sources) Start: 02-08-2020 End: 10-19-2022 Insulin Nph Isoph U-100 Karol n 100 UNIT/ML suspension Discontinued 0 U SQ TWICE A DAY April 14, 2020 11:52am October 19, 2022 8:16am DM SLIDDING SCALE Please contact the information source for Protocol details. levETIRAcetam 500 mg oral ta blet (20 sources) Start: 07-27-2024 End: 02-03-2025 Levetiracetam 500 mg tablet Discontinued 250 mg PO Q12H July 27, 2024 1:00am February 03, 2025 10:07am SEIZURE Start: 05-07-2024 End: 07-27-2024 Levetiracetam 1,000 mg table t Discontinued 500 mg PO TWICE A DAY May 07, 2024 11:53am July 27, 2024 11:57am TAKE WITH BREAKFAST AND SUPPER FOR SEIZURES Start: 02-21-2024 End: 06-05-2024 levETIRAcetam (Keppra) 500 M G tablet Indications: Partial symptomatic epilepsy with complex partial seizures, not intractable, without status epilepticus (CMS/HCC) Take one half of tablet in the morning and one full tablet at night 60 tablet 1 04/24/2024 06/05/2024 Discontinued (Reorder) Start: 02-06-2024 End: 02-21-2024 take 1 tablet by mouth in the morning levETIRAcetam (Keppra) 750 MG tablet Indications: Partial symptomatic epilepsy with complex partial seizures, not intractable, without status epilepticus (CMS/HCC) , PRES (posterior reversible encephalopathy syndrome) TAKE 1 TABLET BY MOUTH IN THE MORNING AND 1 TABLET BEFORE BEDTIME 60 tablet 02/06/2024 02/21/2024 Discontinued Start: 01-31-2024 End: 05-07-2024 Levetiracetam 1,000 mg table t Discontinued 750 mg PO TWICE A DAY January 31, 2024 1:30pm May 07, 2024 11:57am TAKE WITH BREAKFAST AND SUPPER FOR SEIZURES Start: 10-04-2023 End: 01-31-2024 take 1 tablet by mouth twice daily at breakfast Levetiracetam 1,000 mg Tablet Discontinued 1000 mg PO TWICE A DAY 60 0 October 04, 2023 12:00am January 31, 2024 1:32pm TAKE WITH BREAKFAST AND SUPPER FOR SEIZURES Start: 09-25-2023 End: 10-25-2023 take 10 mL by mouth twice daily levETIRAcetam (KEPPRA) 500 mg/5 mL (5 mL) CUP 10 mL by ORAL/FEEDING TUBE route two times a day. 600 mL 0 09/25/2023 10/25/2023 Active Start: 09-25-2023 End: 10-04-2023 take 1 tablet by mouth twice daily Levetiracetam (Keppra) 500 mg tablet Discontinued 500 mg PO TWICE A DAY September 25, 2023 12:00am October 04, 2023 2:43pm seizure Comment on above: 10 mL by ORAL/FEEDIN G TUBE route two times a day. lidocaine hydrochloride 0.02 mg/mg topical gel (1 source) Antiarrhythmic, Amide Local Anesthetic Start: 2 End: 2 lidocaine urojet 2 % 6 mL topical gel (XYLOCAINE, GLYDO) lisinopril 40 mg oral tablet (20 sources) Angiotensin Converting Enzyme Inhibitor Start: 4 End: 4 take 1 tablet by mouth once daily at bedtime lisinopril (ZESTRIL) 40 mg tablet 1 tablet by ORAL/FEEDING TUBE route daily at bedtime. 30 tablet 0 09/25/2023 10/25/2023 Active Start: 09-25-2023 End: 05-07-2024 Lisinopril 40 mg tablet Disc ontinued 40 mg PO AT BEDTIME 30 0 October 04, 2023 2:59pm May 07, 2024 11:52am bp TAKE WITH SUPPER Start: 02-08-2020 End: 04-21-2020 take 1 tablet by mouth once daily Lisinopril 20 MG tablet Discontinued 20 mg PO DAILY April 14, 2020 2:18pm April 21, 2020 2:01pm BP Comment on above: 1 tablet by ORAL/FEE DING TUBE route daily at bedtime. magnesium oxide 500 mg oral capsule (20 sources) Start : 05-08 End: 02-07 take 1 capsule by mouth once daily Magnesium Oxide 500 mg capsule Discontinued 500 mg PO DAILY May 08, 2019 1:00am February 08, 2020 3:30pm supplement methylPREDNISolone 4 mg oral tablet (20 sources) Corticosteroid Start : 06-29 End: 07-12 take 1 tablet by mouth once Methylprednisolone (Medrol (Leonardo)) 4 mg tablets,dose pack Discontinued 0 PO per package directions June 29, 2018 1:00am July 12, 2018 2:22pm PO PER PKG DIR mometasone furoate 1 mg/ml topical cream (17 sources) Corticosteroid Start : 01-04 mometasone (ELOCON) 0.1 % cream Apply 1 application to affected area once daily. 15 g 1 01/04/2018 Active Comment on above: Apply 1 application to affected area once daily. naproxen 500 mg oral tablet (17 sources) Nonsteroidal Anti-inflammatory Drug Start : 09-13 End: 09-24 take 1 tablet by mouth twice daily Naproxen 500 mg tablet Discontinued 500 mg PO TWICE A DAY 10 0 September 14, 2023 12:00am September 25, 2023 8:41pm nitrofurantoin, macrocrystals 25 mg / nitrofurantoin, monohydrate 75 mg oral capsule (20 sources) Nitrofuran Antibacterial Start : 05-28 End: 06-04 take 1 capsule by mouth twice daily at mealtime nitrofurantoin monohydrate and macrocrystal (MACROBID) 100 mg capsule Indications: Urinary frequency Take 1 capsule by mouth twice daily with meals for 7 days. 14 capsule 0 05/28/2022 06/04/2022 Start: 04-18-2022 End: 04-23-2022 take 1 capsule by mouth twice daily nitrofurantoin monohydrate and macrocrystal (MACROBID) 100 mg capsule Indications: Acute cystitis without hematuria Take 1 capsule by mouth twice daily for 5 days. 10 capsule 0 04/18/2022 04/23/2022 Active Start: 01-23-2022 End: 01-30-2022 take 1 capsule by mouth every twelve hours at mealtime Nitrofurantoin Monohyd/M-Cryst 100 mg capsule Discontinued 1 NMA PO Q12H 14 7 0 January 23, 2022 12:00am January 29, 2022 12:00am January 30, 2022 12:03am administer with a meal/food; swallow whole; do not open, crush, dissolve , or chew Start: 11-03-2021 End: 11-03-2021 nitrofurantoin monohydrate a nd macrocrystal 100 mg cap(s) (MACROBID) Comment on above: Take 1 capsule by mo uth twice daily for 5 days. Take 1 capsule by mo uth twice daily with meals for 7 days. Omeprazole 40 mg capsule,delayed release(DR/EC) (5 sources) Start: 02-03-2025 End: 02-23-2025 take 1 capsule by mouth once daily Omeprazole 40 mg capsule,delayed release(DR/EC) Discontinued 40 mg PO daily February 03, 2025 12:00am February 23, 2025 9:22am Start: 02-03-2025 take 1 capsule by [facility] once daily Omeprazole 40 mg capsule,delayed release(DR/EC) Active 40 mg PO daily February 03, 2025 12:00am oxyCODONE hydrochloride 5 mg oral tablet (20 sources) Opioid Agonist Start: 03-04-2020 End: 03-07-2020 take 1 tablet by mouth every eight hours as needed for pain Oxycodone 5 MG tablet Discontinued 5 mg PO EVERY 8 HOURS NEEDED as needed for Pain Score 6-10/10 10 3 0 March 04, 2020 March 06, 2020 12:00am March 07, 2020 12:02am Intractable back pain Dorsalgia, unspecified Start: 02-08-2020 End: 02-15-2020 take 1 tablet by mouth every four hours as needed for pain Oxycodone 5 MG tablet Discontinued 5 mg PO EVERY 4 HOURS NEEDED as needed for Pain Score 4-10/10 20 7 0 February 08, 2020 February 14, 2020 12:00am February 15, 2020 12:02am Fracture of neck of left femur pantoprazole 40 mg delayed release oral tablet (20 sources) Proton Pump Inhibitor Start: 07-29-2024 End: 01-25-2025 take 1 tablet by mouth twice daily Pantoprazole (Protonix) 40 mg tablet,delayed release (DR/EC) Discontinued 40 mg PO TWICE A DAY 60 2 July 29, 2024 1:00am January 25, 2025 4:15pm Start: 01-31-2024 End: 07-27-2024 take 1 tablet by mouth once daily Pantoprazole (Protonix) 40 mg tablet,delayed release (DR/EC) Discontinued 40 mg PO DAILY January 31, 2024 12:00am July 27, 2024 11:55am predniSONE 10 mg oral tablet (7 sources) Start: 01-20-2025 End: 01-25-2025 take 4 tablets by mouth once daily, then take 3 tablets by mouth once daily, then take 2 tablets by mouth once daily, then take 1 tablet by mouth once daily Prednisone 10 mg tablet Discontinued 10 mg PO daily 30 0 January 20, 2025 12:00am January 25, 2025 4:15pm 4 tablets daily x3 days, then 3 tablets daily x3 days, then 2 tablets daily x3 days, then 1 tablet daily x3 days rosuvastatin calcium 20 mg oral tablet (20 sources) HMG-CoA Reductase Inhibitor Start: 02-06-2020 End: 09-17-2023 take 1 tablet by mouth once daily Rosuvastatin 20 MG tablet Discontinued 20 mg PO DAILY February 06, 2020 12:00am September 17, 2023 6:27pm cholesterol simvastatin 40 mg oral tablet (20 sources) HMG-CoA Reductase Inhibitor Start: 08-21-2021 End: 04-24-2024 take 1 tablet by mouth at bedtime Simvastatin 40 mg tablet Discontinued 40 mg PO AT BEDTIME September 17, 2023 12:00am October 04, 2023 2:39pm cholesterol Comment on above: Take 40 mg by mouth once daily. SITagliptin 100 mg oral tablet (20 sources) Dipeptidyl Peptidase 4 Inhibitor Start: 05-21-2019 End: 07-16-2019 take 1 tablet by mouth once daily Sitagliptin Phosphate (Januvia) 100 mg tablet Discontinued 100 mg PO DAILY 30 May 21, 2019 1:00am July 16, 2019 8:35am triamcinolone acetonide 1 mg/ml topical cream (17 sources) Corticosteroid Start: 12-17-2017 triamcinolone acetonide (KENALOG) 0.1 % cream Apply 1 application to affected area twice daily. 60 g 1 12/17/2017 Active Comment on above: Apply 1 application to affected area twice daily. Problems Active Problems Problem Classification Problem Date Documented Da te Episodic/Chronic Acute cerebrovascular disease (6 sources) Cerebrovascular accident; Translations: [Cerebral infarction, unspecified] Onset: 01-25-2025 Chronic Anxiety disorders (5 sources) Anxiety; Translations: [Anxiety disorder, unspecified] 01-25-2025 Chronic Cancer of other female genital organs (20 sources) Vulval intraepithelial neoplasia grade 3; Translations: [Carcinoma in situ of vulva] Onset: 6 01-16-2016 Chronic Chronic kidney disease (18 sources) Chronic kidney disease stage 3A ; Translations: [Chronic renal failure, stage 3a] 10-04-2023 Chronic Deficiency and other anemia (20 sources) Anemia; Translations: [Anemia, unspecified] Onset: 3 04-21-2020 Episodic Deficiency and other anemia (4 sources) Anemia, unspecified; Translations: [Anemia, unspecified] Onset: 5 10-05-2023 Episodic Diabetes mellitus with complications (20 sources) Diabetic - poor control; Translations: [Type 2 diabetes mellitus with hyperglycemia] Onset: 8 Chronic Diabetes mellitus without complication (20 sources) Diabetes mellitus; Translations: [Type 2 diabetes mellitus without complications] Onset: 6 06-26-2021 Chronic Disorders of lipid metabolism (20 sources) Hyperlipidemia; Translations: [Hyperlipidemia, unspecified] Onset: 8 04-21-2020 Chronic Epilepsy; convulsions (20 sources) Complex partial status epilepticus; Translations: [Localization-related (focal) (partial) symptomatic epilepsy and epileptic syndromes with complex partial seizures, not intractable, with status epilepticus] Onset: 4 09-17-2023 Chronic Epilepsy; convulsions (19 sources) Neurological finding; Translations: [Unspecified convulsions] Onset: 4 09-17-2023 Episodic Esophageal disorders (20 sources) Gastroesophageal reflux disease; Translations: [Gastro-esophageal reflux disease without esophagitis] Onset: 6 01-03-2016 Chronic Essential hypertension (20 sources) Hypertensive disorder; Translations: [Essential (primary) hypertension] Onset: 6 01-03-2016 Chronic Fluid and electrolyte disorders (20 sources) Hypokalemia; Translations: [Hypokalemia] 04-21-2020 Episodic Fracture of neck of femur (hip) (20 sources) Fracture of neck of femur; Translations: [Fracture of unspecified part of neck of left femur, initial encounter for closed fracture] 03-02-2020 Episodic Gastrointestinal hemorrhage (20 sources) Gastrointestinal hemorrhage; Translations: [Gastrointestinal hemorrhage, unspecified] Onset: 5 04-21-2020 Episodic Genitourinary symptoms and ill-defined conditions (20 sources) Beltran hematuria; Translations: [Gross hematuria] Onset: 3 Episodic Heart valve disorders (20 sources) Heart murmur; Translations: [Cardiac murmur, unspecified] Onset: 3 03-25-2023 Episodic Hypertension with complications and secondary hypertension (17 sources) Hypertensive emergency; Translations: [Hypertensive emergency] Onset: 4 09-17-2023 Chronic Immunizations and screening for infectious disease (11 sources) Contact with and (suspected) exposure to other viral communicable diseases; Translations: [Contact with or suspected exposure to other viral communicable disease] 06-29-2020 Episodic Malaise and fatigue (17 sources) Asthenia; Translations: [Other malaise] 09-27-2023 Episodic Mood disorders (5 sources) Depressive disorder; Translations: [Depression] 01-25-2025 Chronic Mycoses (1 source) Mycosis; Translations: [Unspecified mycosis] Episodic Noninfectious gastroenteritis (20 sources) Enteritis of small intestine; Translations: [Noninfective gastroenteritis and colitis, unspecified] Onset: 5 09-17-2024 Episodic Nutritional deficiencies (20 sources) Vitamin D deficiency; Translations: [Vitamin D deficiency, unspecified] Onset: 5 04-21-2020 Chronic Osteoarthritis (20 sources) Osteoarthritis; Translations: [Unspecified osteoarthritis, unspecified site] 04-21-2020 Chronic Other and ill-defined cerebrovascular disease (20 sources) Posterior reversible encephalopathy syndrome; Translations: [Posterior reversible encephalopathy syndrome] Onset: 4 10-04-2023 Chronic Comment on above: Diagnosed 09/17/2023 Other and ill-defined cerebrovascular disease (2 sources) Posterior reversible encephalopathy syndrome; Translations: [Other encephalopathy] 10-05-2023 Chronic Other connective tissue disease (20 sources) Spasm of cervical paraspinous muscle; Translations: [Other muscle spasm] 02-29-2020 Episodic Other connective tissue disease (12 sources) Plantar fasciitis of left foot; Translations: [Plantar fascial fibromatosis] 01-20-2025 Episodic Other connective tissue disease (1 source) Pain in left foot; Translations: [Pain in left foot] Onset: 5 Episodic Other connective tissue disease (1 source) Plantar fascial fibromatosis; Translations: [Plantar fascial fibromatosis] Onset: 5 Episodic Other diseases of bladder and urethra (2 sources) Hypertrophy of bladder; Translations: [Other specified disorders of bladder] Chronic Other gastrointestinal disorders (15 sources) Irritable bowel syndrome; Translations: [Irritable bowel syndrome without diarrhea] 09-27-2023 Chronic Other gastrointestinal disorders (1 source) Irritable bowel syndrome without diarrhea; Translations: [Irritable bowel syndrome] 10-05-2023 Chronic Other gastrointestinal disorders (6 sources) Loose stool; Translations: [Other fecal abnormalities] 02-23-2025 Episodic Other gastrointestinal disorders (1 source) Other fecal abnormalities; Translations: [Other fecal abnormalities] Onset: 5 Episodic Other liver diseases (14 sources) Non-alcoholic fatty liver; Translations: [Fatty (change of) liver, not elsewhere classified] Onset: 6 01-03-2016 Chronic Other liver diseases (20 sources) Disease of liver; Translations: [Liver disease, unspecified] 04-21-2020 Chronic Other liver diseases (12 sources) Fatty (change of) liver, not elsewhere classified; Translations: [Other chronic nonalcoholic liver disease] Onset: 6 01-03-2016 Chronic Other nervous system disorders (20 sources) Neuropathy; Translations: [Polyneuropathy, unspecified] 04-21-2020 Chronic Other nervous system disorders (15 sources) Disorder of brain; Translations: [Encephalopathy, unspecified] 09-27-2023 Chronic Other nervous system disorders (2 sources) Encephalopathy, unspecified; Translations: [Encephalopathy, unspecified] 10-05-2023 Chronic Other nervous system disorders (5 sources) Carpal tunnel syndrome; Translations: [Carpal tunnel syndrome, unspecified upper limb] 01-25-2025 Chronic Other non-epithelial cancer of skin (20 sources) Malignant neoplasm of skin; Translations: [Unspecified malignant neoplasm of skin, unspecified] 04-21-2020 Episodic Other non-traumatic joint disorders (1 source) Pain in left ankle and joints of left foot; Translations: [Pain in left ankle and joints of left foot] Onset: 5 Episodic Other nutritional; endocrine; and metabolic disorders (20 sources) Overweight; Translations: [Overweight] 02-03-2024 Episodic Other screening for suspected conditions (not mental disorders or infectious disease) (6 sources) Echocardiogram abnormal; Translations: [Abnormal findings on diagnostic imaging of heart and coronary circulation] Onset: 5 01-25-2025 Episodic Other upper respiratory infections (20 sources) Acute sinusitis; Translations: [Acute sinusitis, unspecified] 10-19-2022 Episodic Pneumonia (except that caused by tuberculosis or sexually transmitted disease) (20 sources) Pneumonia; Translations: [Pneumonia, unspecified organism] 04-14-2020 Episodic Prolapse of female genital organs (20 sources) Third degree uterine prolapse; Translations: [Complete uterovaginal prolapse] Onset: 6 Chronic Rehabilitation care; fitting of prostheses; and adjustment of devices (1 source) Patient encounter status; Translations: [Encounter for fitting and adjustment of other specified devices] Chronic Residual codes; unclassified (20 sources) H/O: blood transfusion; Translations: [Personal history of other medical treatment] 04-21-2020 Episodic Residual codes; unclassified (20 sources) Noncompliance with treatment; Translations: [Patient's noncompliance with other medical treatment and regimen] 04-21-2020 Episodic Residual codes; unclassified (11 sources) History of colonoscopy; Translations: [Other specified postprocedural states] 04-21-2020 Episodic Respiratory failure; insufficiency; arrest (adult) (1 source) Ventilator finding; Translations: [Dependence on respirator [ventilator] status] Onset: 4 09-17-2023 Chronic Respiratory failure; insufficiency; arrest (adult) (1 source) Acute respiratory failure; Translations: [Acute respiratory failure, unspecified whether with hypoxia or hypercapnia] Onset: 4 09-17-2023 Episodic Spondylosis; intervertebral disc disorders; other back problems (17 sources) Torticollis; Translations: [Torticollis] 09-14-2023 Episodic Sprains and strains (20 sources) Strain of neck muscle; Translations: [Strain of muscle, fascia and tendon at neck level, initial encounter] Onset: 5 09-14-2023 Episodic Substance-related disorders (16 sources) Tobacco dependence in remission; Translations: [Nicotine dependence, unspecified, in remission] 09-27-2023 Chronic Comment on above: Quit in 2012 Superficial injury; contusion (20 sources) Contusion of elbow; Translations: [Contusion of right elbow, initial encounter] 03-02-2020 Episodic Unclassified (3 sources) [facility] [employer] called to set up appointment, but the office is closed for lunch. 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; Translations: [Type 2 diabetes mellitus with other specified complication, with long-term current use of insulin (HCC)] Onset: 06-27-2021 Episodic Residual codes; unclassified (9 sources) Health management deficit; Translations: [Other specified personal risk factors, not elsewhere classified] Onset: 03-11-2018 02-21-2024 Episodic Screening and history of mental health and substance abuse codes (20 sources) H/O: anxiety state; Translations: [Personal history of other mental and behavioral disorders] Onset: 01-04-2016 01-04-2016 Episodic Syncope (17 sources) Syncope; Translations: [Syncope and collapse] Onset: 08-04-2024 08-06-2024 Episodic Unclassified (20 sources) Contusion of right knee, initial encounter 03-02-2020 Results Test Name Value Interpretation Reference Range Facility Absolute lymphocyte countOrd ered By: Ivelisse Ramirez on 02-24-2025 Lymphocytes Auto (Unsp spec) [#/Vol] 3.20 10*3/uL 0.83-4.51 [facility] Absolute neutrophil countOrd ered By: Ivelisse Ramirez on 02-24-2025 Neutrophils (Bld) [#/Vol] 4.1 10*3/uL 2.0-7.7 [facility] Anion gap in Serum or Plasma Ordered By: Marli Barton on 02-24-2025 Anion gap [Moles/Vol] 10 mmol/L 5-15 [facility] Automated lymphocyte count a s percentage of total leukocytesOrdered By: Ivelisse Ramirez on 02-24-2025 Lymphocytes/100 WBC Auto (Unsp spec) 40.3 % -41 [facility] BUN/creatinine ratioOrdered By: Marli Barton on 02-24-2025 Urea nitrogen/Creatinine [Mass ratio] 17.5 mg/mg 10-20 [facility] Basophil percentageOrdered B y: Ivelisse Ramirez on 02-24-2025 Basophils/100 WBC (Bld) 0.5 % 0-1 [facility] Bilirubin, totalOrdered By: Marli Barton on 02-24-2025 Bilirubin [Mass/Vol] 0.40 mg/dL 0.00-1.30 [facility] CBC W/Diff, Automatedon 01-30 Absolute Lymph 3.20 X10 3/uL Normal 0.83-4.51 [facility] Comment on above: Order Comment: SEND ALL THE WELL PER PT Performed By: #### L 503.6030, L503.6550, L100.0100 ####[facility] [address] [place], [address] Absolute Neut 4.1 X10 3/uL Normal 2.0-7.7 [facility] Comment on above: Order Comment: SEND ALL THE WELL PER PT Performed By: #### L 503.6030, L503.6550, L100.0100 ####[facility] [address] [place], [address] Basophils/100 WBC (Bld) 0.5 % Normal 0-1 [facility] Comment on above: Order Comment: SEND ALL THE WELL PER PT Performed By: #### L 503.6030, L503.6550, L100.0100 ####[facility] [address] [place], [address] Eosinophils/100 WBC (Bld) 2.6 % Normal 0-5 [facility] Comment on above: Order Comment: SEND ALL THE WELL PER PT Performed By: #### L 503.6030, L503.6550, L100.0100 ####[facility] [address] [place], [address] Erythrocyte distribution width (RBC) [Ratio] 12.7 % Normal 11.6-14.6 [facility] Comment on above: Order Comment: SEND ALL THE WELL PER PT Performed By: #### L 503.6030, L503.6550, L100.0100 ####[facility] [address] [place], [address] Hematocrit (Bld) [Volume fraction] 39.6 % Normal 37-47 [facility] Comment on above: Order Comment: SEND ALL THE WELL PER PT Performed By: #### L 503.6030, L503.6550, L100.0100 ####[facility] [address] [place], [address] Hemoglobin (Bld) [Mass/Vol] 13.7 g/dL Normal 12.0-15.0 [facility] Comment on above: Order Comment: SEND ALL THE WELL PER PT Performed By: #### L 503.6030, L503.6550, L100.0100 ####[facility] [address] [place], [address] IG% 0.300 Normal 0.0-0.9 [facility] Comment on above: Order Comment: SEND ALL THE WELL PER PT Result Comment: IG% - Immature Granulocytes (promyelocytes, myelocytes andmetamyelocytes) > 1% indicates that a LEFT SHIFT is Present. Performed By: #### L 503.6030, L503.6550, L100.0100 ####[facility] [address] [place], [address] Lymphocytes/100 WBC (Bld) 40.3 % Normal 19-41 [facility] Comment on above: Order Comment: SEND ALL THE WELL PER PT Performed By: #### L 503.6030, L503.6550, L100.0100 ####[facility] [address] [place], [address] MCH (RBC) [Entitic mass] 28.9 pg Normal 27.0-32.0 [facility] Comment on above: Order Comment: SEND ALL THE WELL PER PT Performed By: #### L 503.6030, L503.6550, L100.0100 ####[facility] [address] [place], [address] MCHC (RBC) [Mass/Vol] 34.6 g/dL Normal 32-36 [facility] Comment on above: Order Comment: SEND ALL THE WELL PER PT Performed By: #### L 503.6030, L503.6550, L100.0100 ####[facility] [address] [place], [address] MCV (RBC) [Entitic vol] 83.5 fL Normal 81-99 [facility] Comment on above: Order Comment: SEND ALL THE WELL PER PT Performed By: #### L 503.6030, L503.6550, L100.0100 ####[facility] [address] [place], [address] Monocytes/100 WBC (Bld) 4.7 % Normal 0-10 [facility] Comment on above: Order Comment: SEND ALL THE WELL PER PT Performed By: #### L 503.6030, L503.6550, L100.0100 ####[facility] [address] [place], [address] Neutrophils/100 WBC (Bld) 51.6 % Normal 47-70 [facility] Comment on above: Order Comment: SEND ALL THE WELL PER PT Performed By: #### L 503.6030, L503.6550, L100.0100 ####[facility] [address] [place], [address] Nucleated RBC (Bld) [#/Vol] 0 10*3/uL Normal 0-5 [facility] Comment on above: Order Comment: SEND ALL THE WELL PER PT Performed By: #### L 503.6030, L503.6550, L100.0100 ####[facility] [address] [place], [address] Platelet mean volume (Bld) [Entitic vol] 10.1 fL Normal 6.2-12.0 [facility] Comment on above: Order Comment: SEND ALL THE WELL PER PT Performed By: #### L 503.6030, L503.6550, L100.0100 ####[facility] [address] [place], [address] Platelets (Bld) [#/Vol] 208 10*3/uL Normal 150-450 [facility] Comment on above: Order Comment: SEND ALL THE WELL PER PT Performed By: #### L 503.6030, L503.6550, L100.0100 ####[facility] [address] [place], [address] RBC (Bld) [#/Vol] 4.74 10*6/uL Normal 4.2-5.4 [facility] Comment on above: Order Comment: SEND ALL THE WELL PER PT Performed By: #### L 503.6030, L503.6550, L100.0100 ####[facility] [address] [place], [address] RDW SD 38.5 fl Normal 35.1-43.9 [facility] Comment on above: Order Comment: SEND ALL THE WELL PER PT Performed By: #### L 503.6030, L503.6550, L100.0100 ####[facility] [address] [place], [address] WBC (Bld) [#/Vol] 7.9 10*3/uL Normal 4.4-11.0 [facility] Comment on above: Order Comment: SEND ALL THE WELL PER PT Performed By: #### L 503.6030, L503.6550, L100.0100 ####[facility] [address] [place], [address] Calculated very low density lipoprotein (VLDL) cholesterol measurementOrdered By: Marli Barton on 02-24-2025 Calculated very low density lipoprotein (VLDL) cholesterol measurement 63 mg/dL High 5-40 [facility] Carbon dioxide, total [Moles /volume] in Central venous bloodOrdered By: Marli Barton on 02-24-2025 CO2 [Moles/Vol] 24.9 mmol/L 21.0-32.0 [facility] Chloride assayOrdered By: Me almaz Barton on 02-24-2025 Chloride [Moles/Vol] 102 mmol/L 98-108 [facility] Comprehensive Metabolic Prof ilon 02-24-2025 Albumin [Mass/Vol] 3.9 g/dL Normal 3.4-4.8 [facility] Comment on above: Order Comment: SEND ALL TO DR.RANNEY YAO PER PT Performed By: #### L 501.9520, L500.4100, L502.0250, L500.4050, L506.1001 ####[facility] [address] [place], [address] Albumin/Globulin [Mass ratio] 1.3 {ratio} Normal 0.9-2.4 [facility] Comment on above: Order Comment: SEND ALL TO DR.RANNEY YAO PER PT Performed By: #### L 501.9520, L500.4100, L502.0250, L500.4050, L506.1001 ####[facility] [address] [place], [address] ALK PHOS 115 U/L High 35-104 [facility] Comment on above: Order Comment: SEND ALL TO DR.RANNEY YAO PER PT Performed By: #### L 501.9520, L500.4100, L502.0250, L500.4050, L506.1001 ####[facility] [address] [place], [address] ALT [Catalytic activity/Vol] 14 U/L Normal <=34 [facility] Comment on above: Order Comment: SEND ALL TO DR.RANNEY YAO PER PT Performed By: #### L 501.9520, L500.4100, L502.0250, L500.4050, L506.1001 ####[facility] [address] [place], [address] AST [Catalytic activity/Vol] 17 U/L Normal <=31 [facility] Comment on above: Order Comment: SEND ALL TO DR.RANNEY YOA PER PT Performed By: #### L 501.9520, L500.4100, L502.0250, L500.4050, L506.1001 ####[facility] [address] [place], [address] Bilirubin [Mass/Vol] 0.40 mg/dL Normal 0.00-1.30 [facility] Comment on above: Order Comment: SEND ALL TO DR.RANNEY YAO PER PT Performed By: #### L 501.9520, L500.4100, L502.0250, L500.4050, L506.1001 ####[facility] [address] [place], [address] BUN/CRE 17.5 RATIO Normal 10-20 [facility] Comment on above: Order Comment: SEND ALL TO DR.RANNEY YAO PER PT Performed By: #### L 501.9520, L500.4100, L502.0250, L500.4050, L506.1001 ####[facility] [address] [place], [address] Calcium [Mass/Vol] 9.1 mg/dL Normal 7.6-11.0 [facility] Comment on above: Order Comment: SEND ALL TO DR.RANNEY YAO PER PT Performed By: #### L 501.9520, L500.4100, L502.0250, L500.4050, L506.1001 ####[facility] [address] [place], [address] Chloride [Moles/Vol] 102 mmol/L Normal 98-108 [facility] Comment on above: Order Comment: SEND ALL TO DR.RANNEY YAO PER PT Performed By: #### L 501.9520, L500.4100, L502.0250, L500.4050, L506.1001 ####[facility] [address] [place], [address] CO2 [Moles/Vol] 24.9 mmol/L Normal 21.0-32.0 [facility] Comment on above: Order Comment: SEND ALL TO DR.RANNEY YAO PER PT Performed By: #### L 501.9520, L500.4100, L502.0250, L500.4050, L506.1001 ####[facility] [address] [place], [address] Creatinine [Mass/Vol] 0.91 mg/dL Normal 0.70-1.20 [facility] Comment on above: Order Comment: SEND ALL TO DR.RANNEY YAO PER PT Performed By: #### L 501.9520, L500.4100, L502.0250, L500.4050, L506.1001 ####[facility] [address] [place], [address] GAP 10 Normal 5-15 [facility] Comment on above: Order Comment: SEND ALL TO DR.RANNEY YAO PER PT Performed By: #### L 501.9520, L500.4100, L502.0250, L500.4050, L506.1001 ####[facility] [address] [place], [address] GFR/1.73 sq M.predicted among non-blacks MDRD (S/P/Bld) [Vol rate/Area] 70 mL/min/{1.73_m2} Normal >60 [facility] Comment on above: Order Comment: SEND ALL TO DR.RANNEY YAO PER PT Result Comment: mL/m in/1.73m2 CKD-EPI Creatinine Equation (2020) Performed By: #### L 501.9520, L500.4100, L502.0250, L500.4050, L506.1001 ####[facility] [address] [place], [address] Globulin (S) [Mass/Vol] 3.1 g/dL Normal 2.2-4.2 [facility] Comment on above: Order Comment: SEND ALL TO DR.RANNEY YAO PER PT Performed By: #### L 501.9520, L500.4100, L502.0250, L500.4050, L506.1001 ####[facility] [address] [place], [address] Glucose [Mass/Vol] 206 mg/dL High 70-99 [facility] Comment on above: Order Comment: SEND ALL TO DR.RANNEY YAO PER PT Performed By: #### L 501.9520, L500.4100, L502.0250, L500.4050, L506.1001 ####[facility] [address] [place], [address] Potassium [Moles/Vol] 4.2 mmol/L Normal 3.3-5.1 [facility] Comment on above: Order Comment: SEND ALL TO DR.RANNEY YAO PER PT Performed By: #### L 501.9520, L500.4100, L502.0250, L500.4050, L506.1001 ####[facility] [address] [place], [address] Sodium [Moles/Vol] 138 mmol/L Normal 133-145 [facility] Comment on above: Order Comment: SEND ALL TO DR.RANNEY YAO PER PT Performed By: #### L 501.9520, L500.4100, L502.0250, L500.4050, L506.1001 ####[facility] [address] [place], [address] T PROT 6.9 g/dL Normal 5.9-8.4 [facility] Comment on above: Order Comment: SEND ALL TO DR.RANNEY YAO PER PT Performed By: #### L 501.9520, L500.4100, L502.0250, L500.4050, L506.1001 ####[facility] [address] [place], [address] Urea nitrogen [Mass/Vol] 16 mg/dL Normal 4-19 [facility] Comment on above: Order Comment: SEND ALL TO DR.RANNEY YAO PER PT Performed By: #### L 501.9520, L500.4100, L502.0250, L500.4050, L506.1001 ####[facility] [address] [place], [address] Endocrinology Visit Reporton 02-24-2025 Endocrinology Visit Report Normal [facility] Eosinophil percentageOrdered By: Ivelisse Ramirez on 02-24-2025 Eosinophils/100 WBC (Bld) 2.6 % 0-5 [facility] Erythrocyte distribution wid th ratioOrdered By: Ivelisse Ramirez on 02-24-2025 Erythrocyte distribution width (RBC) [Ratio] 12.7 % 11.6-14.6 [facility] Erythrocyte distribution wid th standard deviationOrdered By: Ivelisse Ramirez on 02-24-2025 Erythrocyte distribution width (RBC) [Ratio] 38.5 fl 35.1-43.9 [facility] Ferritinon 02-24-2025 Ferritin [Mass/Vol] 42 ng/mL Normal 22-378 [facility] Comment on above: Order Comment: SEND ALL THE DR.RANNEY PAT MCGEE PER PT Performed By: #### L 503.6030, L503.6550, L100.0100 ####[facility] [address] [place], [address] Glomerular filtration rate ( GFR) estimation/1.73 sq m using serum, plasma, or whole bOrdered By: Marli Barton on 02-24-2025 GFR/1.73 sq M.predicted among non-blacks MDRD (S/P/Bld) [Vol rate/Area] 70 mL/min/{1.73_m2} >60 [facility] Comment on above: mL/min/1.73m2 CKD-EP I Creatinine Equation (2020) Hematocrit Auto (Bld) [Volum e fraction]Ordered By: Ivelisse Ramirez on 02-24-2025 Hematocrit (Bld) [Volume fraction] 39.6 % 37-47 [facility] Hemoglobin measurementOrdere d By: Ivelisse Ramirez on 02-24-2025 Hemoglobin (Bld) [Mass/Vol] 13.7 g/dL 12.0-15.0 [facility] Immature granulocytes/100 WB C Auto (Bld)Ordered By: Ivelisse Ramirez on 02-24-2025 Immature granulocytes/100 WBC (Bld) 0.300 % 0.0-0.9 [facility] Comment on above: IG% - Immature Granu locytes (promyelocytes, myelocytes and metamyelocytes) > 1% indicates that a LEFT SHIFT is Present. Iron measurement (mass/mass) Ordered By: Ivelisse Ramirez on 02-24-2025 Iron (Unsp spec) [Mass/Mass] 80 ug/dL 50-170 [facility] Iron+Iron Binding Capacityon 02-24-2025 Iron [Mass/Vol] 80 ug/dL Normal 50-170 [facility] Comment on above: Order Comment: SEND ALL THE WELL PER PT Performed By: #### L 503.6030, L503.6550, L100.0100 ####[facility] [address] [place], [address] IRON SATURATION 25.0 Normal 13-59 [facility] Comment on above: Order Comment: SEND ALL THE WELL PER PT Performed By: #### L 503.6030, L503.6550, L100.0100 ####[facility] [address] [place], [address] TIBC 321 ug/dL Normal 250-450 [facility] Comment on above: Order Comment: SEND ALL THE WELL PER PT Performed By: #### L 503.6030, L503.6550, L100.0100 ####[facility] [address] [place], [address] UIBC 241 ug/dL Normal 228-428 [facility] Comment on above: Order Comment: SEND ALL THE WELL PER PT Performed By: #### L 503.6030, L503.6550, L100.0100 ####[facility] [address] [place], [address] LDL calc ser/plasOrdered By: Marli Barton on 02-24-2025 Cholesterol in LDL [Mass/Vol] 36 mg/dL [facility] Comment on above: Qzlovxsakr=456-511 m g/dL & Higher Bytz=460 mg/dL or greaterFriedwald Equation for LDL-C Laboratory - Chemistry and C hemistry - challengeOrdered By: Marli Barton on 02-24-2025 AST [Catalytic activity/Vol] 17 U/L <32 [facility] Laboratory - Hematology and Cell countsOrdered By: Marli Barton on 02-24-2025 HbA1c (Bld) [Mass fraction] 8.2 % High 4.2-6.3 [facility] Lipid Profileon 02-24-2025 CHOL:HDL 3.68 Normal [facility] Comment on above: Order Comment: SEND ALL TO DR.RANNEY YAO PER PT Performed By: #### L 501.9520, L500.4100, L502.0250, L500.4050, L506.1001 ####[facility] [address] [place], [address] Cholesterol [Mass/Vol] 136 mg/dL Normal <=200 [facility] Comment on above: Order Comment: SEND ALL TO DR.RANNEY YAO PER PT Result Comment: Chol esterol level, Desirable <200 mg/dLBorderline high cholesterol 200-239 mg/dLHigh cholesterol >=240 mg/dLRecommendations of the NCEP Adult Treatment Panel for thefollowing risk-cutoff thresholds for the [place] Americanpulation. Performed By: #### L 501.9520, L500.4100, L502.0250, L500.4050, L506.1001 ####[facility] [address] [place], [address] Cholesterol in HDL [Mass/Vol] 37 mg/dL Low [facility] Comment on above: Order Comment: SEND ALL TO DR.RANNEY YAO PER PT Result Comment: Abigail onal Cholesterol Education Program (NCEP) guidelines:<40 mg/dL: Low HDL-cholesterol (major risk factor for CHD)>= 60 mg/dL: High HDL-cholesterol (negative risk factor forCHD)HDL-cholesterol is affected by a number of factors, e.g.smoking, exercise, hormones, sex and age. Performed By: #### L 501.9520, L500.4100, L502.0250, L500.4050, L506.1001 ####[facility] [address] [place], [address] Cholesterol in LDL [Mass/Vol] 36 mg/dL Normal [facility] Comment on above: Order Comment: SEND ALL TO DR.RANNEY YAO PER PT Result Comment: Bord iuikon=439-246 mg/dL Higher Couc=047 mg/dL or greaterFriedwald Equation for LDL-C Performed By: #### L 501.9520, L500.4100, L502.0250, L500.4050, L506.1001 ####[facility] [address] [place], [address] Cholesterol in VLDL [Mass/Vol] 63 mg/dL High 5-40 [facility] Comment on above: Order Comment: SEND ALL TO DR.RANNEY YAO PER PT Performed By: #### L 501.9520, L500.4100, L502.0250, L500.4050, L506.1001 ####[facility] [address] [place], [address] Triglyceride [Mass/Vol] 316 mg/dL High [facility] Comment on above: Order Comment: SEND ALL TO DR.RANNEY YAO PER PT Result Comment: The drugs N-Acetylcysteine and Metamizole may falselydepress this assay.Normal range: <150 mg/dLBorderline High: 150-199 mg/dLHigh: 200-499 mg/dLVery High: >500 mg/dL Performed By: #### L 501.9520, L500.4100, L502.0250, L500.4050, L506.1001 ####[facility] [address] [place], [place], [id number] MCV (mean corpuscular volume ) determinationOrdered By: Ivelisse Ramirez on 02-24-2025 MCV (RBC) [Entitic vol] 83.5 fL 81-99 [facility] Mean corpuscular hemoglobin (MCH) determinationOrdered By: Ivelisse Ramirez on 02-24-2025 MCH (RBC) [Entitic mass] 28.9 pg 27.0-32.0 [facility] Mean corpuscular hemoglobin concentration (MCHC) determinationOrdered By: Ivelisse Ramirez on 02-24-2025 MCHC (RBC) [Mass/Vol] 34.6 g/dL 32-36 [facility] Mean platelet volume determi nationOrdered By: Ivelisse Ramirez on 02-24-2025 Platelet mean volume (Bld) [Entitic vol] 10.1 fL 6.2-12.0 [facility] Microalb:Creat Ratio,Random URon 02-24-2025 MICROALBUMIN,UR 511.0 mg/L Normal <20 mg/L [facility] Comment on above: Order Comment: SEND ALL THE WELL PER PT Performed By: #### L 501.9520, L500.4100, L502.0250, L500.4050, L506.1001 ####[facility] [address] [place], [address] Monocyte percentageOrdered B y: Ivelisse Ramirez on 02-24-2025 Monocytes/100 WBC (Bld) 4.7 % 0-10 [facility] Neutrophil percentageOrdered By: Ivelisse Ramirez on 02-24-2025 Neutrophils/100 WBC (Bld) 51.6 % 47-70 [facility] No Panel InformationOrdered By: Ivelisse Ramirez on 02-24-2025 Unsaturated Iron Binding Capacity 241 ug/dL 228-428 [facility] Nucleated red blood cell per centageOrdered By: Ivelisse Ramirez on 02-24-2025 Nucleated RBC/100 WBC (Bld) [Ratio] 0 % 0-5 [facility] Platelet countOrdered By: Acacia Ramirez on 02-24-2025 Platelets (Bld) [#/Vol] 208 10*3/uL 150-450 [facility] Potassium measurement (mass/ volume)Ordered By: Marli Barton on 02-24-2025 Potassium (Unsp spec) [Mass/Vol] 4.2 mmol/L 3.3-5.1 [facility] RBC Auto (Bld) [#/Vol]Ordere d By: Ivelisse Ramirez on 02-24-2025 RBC (Bld) [#/Vol] 4.74 10*6/uL 4.2-5.4 [facility] Random urine creatinine nya urement (mass/volume)Ordered By: Marli Barton on 02-24-2025 Creatinine Unsp time (U) [Mass/Vol] 162.00 mg/dL 28.00-217.00 [facility] Comment on above: Previous reported re sult: 161.00 mg/dLEdited by: POOJA on 02/24/25:1512 AMENDED REPORT 02/24/25 1512 UR CREAT previously reported as: 161.00 mg/dL Screening total cholesterol/ high density lipoprotein (HDL) cholesterol ratioOrdered By: Marli Barton on 02-24-2025 Cholesterol.total/Cho lesterol in HDL [Mass ratio] 3.68 {ratio} [facility] Serum creatinine measurement (mass/volume)Ordered By: Marli Barton on 02-24-2025 Creatinine [Mass/Vol] 0.91 mg/dL 0.70-1.20 [facility] Serum globulin measurementOr dered By: Marli Barton on 08-27-2025 Globulin (S) [Mass/Vol] 3.1 g/dL 2.2-4.2 [facility] Serum glucose measurement (m ass/volume)Ordered By: Marli Barton on 02-24-2025 Glucose [Mass/Vol] 206 mg/dL High 70-99 [facility] Serum or plasma alanine adams otransferase (ALT) measurementOrdered By: Marli Barton on 02-24-2025 ALT [Catalytic activity/Vol] 14 U/L <35 [facility] Serum or plasma albumin nya urement (mass/volume)Ordered By: Marli Barton on 02-24-2025 Albumin [Mass/Vol] 3.9 g/dL 3.4-4.8 [facility] Serum or plasma albumin/glob ulin mass ratioOrdered By: Marli Barton on 02-24-2025 Albumin/Globulin [Mass ratio] 1.3 {ratio} 0.9-2.4 [facility] Serum or plasma alkaline saleem sphatase measurementOrdered By: Marli Barton on 02-24-2025 ALP [Catalytic activity/Vol] 115 U/L High 35-104 [facility] Serum or plasma calcium nya urement (mass/volume)Ordered By: Marli Barton on 02-24-2025 Calcium [Mass/Vol] 9.1 mg/dL 7.6-11.0 [facility] Serum or plasma cholesterol in HDL measurement (mass/volume)Ordered By: Marli Barton on 02-24-2025 Cholesterol in HDL [Mass/Vol] 37 mg/dL Low >40 [facility] Comment on above: National Cholesterol Education Program (NCEP) guidelines:<40 mg/dL: Low HDL-cholesterol (major risk factor for CHD)>= 60 mg/dL: High HDL-cholesterol (negative risk factor for CHD)HDL-cholesterol is affected by a number of factors, e.g. smoking, exercise, hormones, sex and age. Serum or plasma cholesterol measurement (mass/volume)Ordered By: Marli Barton on 02-24-2025 Cholesterol [Mass/Vol] 136 mg/dL <201 [facility] Comment on above: Cholesterol level, D esirable <200 mg/dLBorderline high cholesterol 200-239 mg/dLHigh cholesterol >=240 mg/dLRecommendations of the NCEP Adult Treatment Panel for the following risk-cutoff thresholds for the [place] population. Serum or plasma ferritin connie surement (mass/volume)Ordered By: Ivelisse Ramirez on 02-24-2025 Ferritin [Mass/Vol] 42 ng/mL 22-378 [facility] Serum or plasma iron saturat ion measurement (mass fraction)Ordered By: Ivelisse Ramirez on 02-24-2025 Iron saturation [Mass fraction] 25.0 % 13-59 [facility] Serum or plasma urea nitroge n measurement (mass/volume)Ordered By: Marli Barton on 02-24-2025 Urea nitrogen [Mass/Vol] 16 mg/dL 4-19 [facility] Sodium levelOrdered By: Ovidio Barton on 02-24-2025 Sodium [Moles/Vol] 138 mmol/L 133-145 [facility] TSH DL <= 0.005 mIU/L QnOrde red By: Marli Barton on 02-24-2025 TSH Qn 0.892 uIU/mL 0.300-4.200 [facility] Thyroid Stim Hormone (TSH)on 02-24-2025 TSH 0.892 uIU/mL Normal 0.300-4.200 [facility] Comment on above: Order Comment: SEND ALL TO DR.RANNEY YAO PER PT Performed By: #### L 501.9520, L500.4100, L502.0250, L500.4050, L506.1001 ####[facility] [address] [place], [place], [id number] Total proteinOrdered By: Ivana Barton on 02-24-2025 Protein [Mass/Vol] 6.9 g/dL 5.9-8.4 [facility] Triglycerides measurementOrd ered By: Marli Barton on 02-24-2025 Triglyceride [Mass/Vol] 316 mg/dL High <199 [facility] Comment on above: The drugs N-Acetylcy steine and Metamizole may falsely depress this assay. Normal range: <150 mg/dLBorderline High: 150-199 mg/dLHigh: 200-499 mg/dLVery High: >500 mg/dL Urine albumin measurement [facility] detection limit of 20 mg/L or less (mass/volume)Ordered By: Marli Barton on 02-24-2025 Albumin DL <= 20 mg/L (U) [Mass/Vol] 511.0 mg/L <20 mg/L [facility] Vitamin D,25 Hydroxyon 02-24 Vitamin D 25-OH 54.7 ng/mL Normal 30-100 [facility] Comment on above: Order Comment: SEND ALL TO DR.RANNEY YAO PER PT Result Comment: Karis min D StatusDeficiency: <20 ng/mL (50nmol/L)Insufficiency: 20-30 ng/mL (50-75 nmol/L)Sufficiency: 30-100 ng/mL (75-250 nmol/L)Toxicity: >100 ng/mL (>250 nmol/L) Performed By: #### L 501.9520, L500.4100, L502.0250, L500.4050, L506.1001 ####[facility] [address] [place], [place], [id number] White blood cell (WBC) count Ordered By: Ivelisse Ramirez on 02-24-2025 WBC (Bld) [#/Vol] 7.9 10*3/uL 4.4-11.0 [facility] Gastroenterology Visit Repor ton 02-23-2025 Gastroenterology Visit Report Normal [facility] Cardiology Visit Reporton Cardiology Visit Report Normal [facility] Ankle min 3 Viewson 01-21-20 25 Ankle min 3 Views Normal [facility] Foot min 3 Viewson 5 Foot min 3 Views Normal [facility] Urgent Care Visit Reporton 0 01-20-2025 Urgent Care Visit Report Normal [facility] Microalb:Creat Ratio,Random URon 12-18-2024 MALB:CREAT 76.3 mg/g CRE Normal [facility] Comment on above: Result Comment: AMENDED REPORT 12/18/24827 MALB:CREAT previously reported as: 763.0 mg/g CRE Performed By: #### L 502.0250 ####[facility] [address] [place], [address] Calprotectin, Stoolon [address] 125 ug/g Abnormal 0-120 [facility] Comment on above: Result Comment: Conc entration Interpretation Follow-Up< 5 - 50 ug/g Normal None>50 -120 ug/g Borderline Re-evaluate in 4-6 weeks >120 ug/g Abnormal Repeat as clinically indicatedPerformed at: - [address] [id number] Director: Violette Morton MD, Phone: [phone] Performed By: #### L 7000.0700 ####[facility] [address] [place], [address] Calprotectin stoolOrdered By : Ivelisse Ramirez on 12-07-2024 Calprotectin stool 125 ug/g High 0-120 [facility] Comment on above: Concentration Interp retation Follow-Up< 5 - 50 ug/g Normal None>50 -120 ug/g Borderline Re-evaluate in 4-6 weeks >120 ug/g Abnormal Repeat as clinically indicatedPerformed at: - Labco[address] [id number] Director: Violette Morton MD, Phone: [phone] Calprotectin, Stoolon [address] 132 ug/g Abnormal 0-120 [facility] Comment on above: Result Comment: Conc entration Interpretation Follow-Up< 5 - 50 ug/g Normal None>50 -120 ug/g Borderline Re-evaluate in 4-6 weeks >120 ug/g Abnormal Repeat as clinically indicatedPerformed at: - [facility]co[address] [id number] Director: Violette Morton MD, Phone: [phone] Performed By: #### L 7000.0700 ####[facility] [address] [place], [address] Calprotectin stoolOrdered By : Ivelisse Ramirez on 11-25-2024 Calprotectin stool 132 ug/g High 0-120 [facility] Comment on above: Concentration Interp retation Follow-Up< 5 - 50 ug/g Normal None>50 -120 ug/g Borderline Re-evaluate in 4-6 weeks >120 ug/g Abnormal Repeat as clinically indicatedPerformed at: - [facility] [id number] [place], [place] [id number] Director: Violette Morton MD, Phone: [phone] Echocardiogram study reportO rdered By: Jersey Farley on 11-25-2024 Study report [facility] [address] [place] [address] Echo Complete W/ Contrast 11/24/24 1018 MR#: [id number] Acct: [id number] Name: REJI ECHOLS Rep #:[id number] : 1960 64 From: Jersey Farley MD Attending Dr: Dr. Melanie Levy MD Status: REG CLI Ordering Dr: Melanie Levy MD Kenny e: 11/24/24 Location: CVS Sex: F C Admitted: Reason For Study Reason For Study: Murmur Procedure This was a 2D Doppler, Color Flow transthoracic echocardiogram. Contrast injection was performed. Exam performed in department. Left Ventricle Normal size and thickness. The LV systolic function is normal. EF is 65 %. Normal diastology for age. Right Ventricle Normal right ventricle. Atria The left and right atria are normal. Mitral Valve Suspect chordal BRYN. Normal resting LVOT gradient. Peak gradient 37 mmHg with Valsalva. Recommend cardiac MRI for further evaluation. Trivial mitral valve insufficiency. Tricuspid Valve Mild tricuspid valve insufficiency. Normal pulmonary artery pressure. Aortic Valve Trisinus/trileaflet aortic valve. Pulmonic Valve The pulmonic valve is not well visualized. Great Vessels Normal sized aortic root. Pericardium/Pleural No pericardial effusion. Medication 22 gauge I.V. with prn adaptor inserted into right arm. Diluted definity 2ml given slow IV push to enhance endocardial definition. MMode/2D Measurements & Calculations LVIDd: 3.7 cm IVSd: 0.84 cm LVOT diam: 2.0 cm LVIDs: 2.6 cm LVPWd: 1.1 cm RVDd: 3.3 cm FS: 28.8 % LVOT area: 3.1 cm2 __ Ao root diam: 3.1 cm asc Aorta Diam: 3.5 cm LAV(MOD-bp): 29.7 ml LAV(MOD-bp) Indexed: 17.7 ml/m2 LAV(MOD-sp2): 32.6 ml LAV(MOD-sp4): 24.9 ml __ SV(MOD-sp4): 52.5 ml SV(sp4-el): 54.7 ml LVAd ap4: 26.8 cm2 LVLd ap4: 7.6 cm SI(MOD-sp4): 31.3 ml/m2 EDV(MOD-sp4): 77.4 ml EDV(sp4-el): 80.3 ml LVAs ap4: 12.9 cm2 LVLs ap4: 5.5 cm ESV(MOD-sp4): 24.9 ml ESV(sp4-el): 25.5 ml EF(MOD-sp4): 67.8 % EF(sp4-el): 68.2 % LA A4 area: 12.3 cm2 LA dimension(2D): 3.3 cm RA A4 area: 8.9 cm2 TAPSE: 1.8 cm Time Measurements MV dec time: 0.22 sec Doppler Measurements & Calculations MV E max jessica: 63.0 cm/sec Lat Peak E' Jessica: 11.4 cm/sec Med Peak E' Jessica: 8.4 cm/sec MV A max jessica: 68.0 cm/sec E/E' lat: 5.5 E/E' med: 7.5 MV E/A: 0.93 MV V2 max: 88.4 cm/sec MV P1/2t max jessica: 86.3 cm/sec Ao V2 max: 179.5 cm/sec MV max P.1 mmHg MV P1/2t: 78.1 msec Ao max P.9 mmHg MV V2 mean: 47.1 cm/sec MV dec slope: 323.4 cm/sec2 Ao V2 mean: 129.2 cm/sec MV mean P.1 mmHg MVA(P1/2t): 2.8 cm2 Ao mean P.5 mmHg MV V2 VTI: 24.1 cm Ao V2 VTI: 42.6 cm MVA(VTI): 4.7 cm2 AV (velocity ratio): 0.85 TRENA(I,D): 2.6 cm2 TRENA(V,D): 2.7 cm2 __ LV V1 max: 157.2 cm/sec MR max jessica: 537.1 cm/sec SV(LVOT): 112.0 ml LV V1 max P.9 mmHg MR max P.4 mmHg LV V1 mean P.1 mmHg LV V1 mean: 103.3 cm/sec LV V1 VTI: 36.3 cm __ PA V2 max: 100.5 cm/sec TR max jessica: 254.0 cm/sec TR max P.8 mmHg ECHO/Echo Complete W/ Contrast Interpretation Summary The LV systolic function is normal. EF is 65 %. Suspect chordal BRYN. Normal resting LVOT gradient. Peak gradient 37 mmHg with Valsalva. Recommend cardiac MRI for further evaluation. Mild tricuspid valve insufficiency. Ordering Physician: Melanie Levy Referring Physician: Melanie Levy Performed By: Andrey Molina RCS 11/25/24 1128 Date _ Jersey Farley MD CC: Dr. 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 Phone: Echo Complete W/ Contraston 11-24-2024 Echo Complete W/ Contrast Normal [facility] Absolute lymphocyte countOrd ered By: Ivelissealan Ramirez on 11-19-2024 Lymphocytes Auto (Unsp spec) [#/Vol] 2.43 10*3/uL 0.83-4.51 [facility] Absolute neutrophil countOrd ered By: Ivelisse Ramirez on 11-19-2024 Neutrophils (Bld) [#/Vol] 3.7 10*3/uL 2.0-7.7 [facility] Automated lymphocyte count a s percentage of total leukocytesOrdered By: Ivelisse Ramirez on 11-19-2024 Lymphocytes/100 WBC Auto (Unsp spec) 36.1 % 19-41 [facility] Basophil percentageOrdered B y: Ivelisse Ramirez on 11-19-2024 Basophils/100 WBC (Bld) 0.6 % 0-1 [facility] CBC W/Diff, Automatedon 10-30 Absolute Lymph 2.43 X10 3/uL Normal 0.83-4.51 [facility] Comment on above: Performed By: #### L 503.6150, L503.6550, L100.0100 ####[facility] [address] [place], [address] Absolute Neut 3.7 X10 3/uL Normal 2.0-7.7 [facility] Comment on above: Performed By: #### L 503.6150, L503.6550, L100.0100 ####[facility] [address] [place], [address] Basophils/100 WBC (Bld) 0.6 % Normal 0-1 [facility] Comment on above: Performed By: #### L 503.6150, L503.6550, L100.0100 ####[facility] [address] [place], [address] Eosinophils/100 WBC (Bld) 2.7 % Normal 0-5 [facility] Comment on above: Performed By: #### L 503.6150, L503.6550, L100.0100 ####[facility] [address] [place], [address] Erythrocyte distribution width (RBC) [Ratio] 17.8 % High 11.6-14.6 [facility] Comment on above: Performed By: #### L 503.6150, L503.6550, L100.0100 ####[facility] [address] [place], [address] Hematocrit (Bld) [Volume fraction] 39.0 % Normal 37-47 [facility] Comment on above: Performed By: #### L 503.6150, L503.6550, L100.0100 ####[facility] [address] [place], [address] Hemoglobin (Bld) [Mass/Vol] 12.8 g/dL Normal 12.0-15.0 [facility] Comment on above: Performed By: #### L 503.6150, L503.6550, L100.0100 ####[facility] [address] [place], [address] IG% 0.300 Normal 0.0-0.9 [facility] Comment on above: Result Comment: IG% - Immature Granulocytes (promyelocytes, myelocytes andmetamyelocytes) > 1% indicates that a LEFT SHIFT is Present. Performed By: #### L 503.6150, L503.6550, L100.0100 ####[facility] [address] [place], [address] Lymphocytes/100 WBC (Bld) 36.1 % Normal 19-41 [facility] Comment on above: Performed By: #### L 503.6150, L503.6550, L100.0100 ####[facility] [address] [place], [address] MCH (RBC) [Entitic mass] 26.1 pg Low 27.0-32.0 [facility] Comment on above: Performed By: #### L 503.6150, L503.6550, L100.0100 ####[facility] [address] [place], [address] MCHC (RBC) [Mass/Vol] 32.8 g/dL Normal 32-36 [facility] Comment on above: Performed By: #### L 503.6150, L503.6550, L100.0100 ####[facility] [address] [place], [address] MCV (RBC) [Entitic vol] 79.4 fL Low 81-99 [facility] Comment on above: Performed By: #### L 503.6150, L503.6550, L100.0100 ####[facility] [address] [place], [address] Monocytes/100 WBC (Bld) 5.1 % Normal 0-10 [facility] Comment on above: Performed By: #### L 503.6150, L503.6550, L100.0100 ####[facility] [address] [place], [address] Neutrophils/100 WBC (Bld) 55.2 % Normal 47-70 [facility] Comment on above: Performed By: #### L 503.6150, L503.6550, L100.0100 ####[facility] [address] [place], [address] Nucleated RBC (Bld) [#/Vol] 0 10*3/uL Normal 0-5 [facility] Comment on above: Performed By: #### L 503.6150, L503.6550, L100.0100 ####[facility] [address] [place], [address] Platelet mean volume (Bld) [Entitic vol] 9.6 fL Normal 6.2-12.0 [facility] Comment on above: Performed By: #### L 503.6150, L503.6550, L100.0100 ####[facility] [address] [place], [address] Platelets (Bld) [#/Vol] 203 10*3/uL Normal 150-450 [facility] Comment on above: Performed By: #### L 503.6150, L503.6550, L100.0100 ####[facility] [address] [place], [address] RBC (Bld) [#/Vol] 4.91 10*6/uL Normal 4.2-5.4 [facility] Comment on above: Performed By: #### L 503.6150, L503.6550, L100.0100 ####[facility] [address] [place], [address] RDW SD 50.9 fl High 35.1-43.9 [facility] Comment on above: Performed By: #### L 503.6150, L503.6550, L100.0100 ####[facility] [address] [place], [address] WBC (Bld) [#/Vol] 6.7 10*3/uL Normal 4.4-11.0 [facility] Comment on above: Performed By: #### L 503.6150, L503.6550, L100.0100 ####[facility] [address] [place], [address] Eosinophil percentageOrdered By: Ivelisse Ramirez on 11-19-2024 Eosinophils/100 WBC (Bld) 2.7 % 0-5 [facility] Erythrocyte distribution wid th ratioOrdered By: Ivelisse Ramirez on 11-19-2024 Erythrocyte distribution width (RBC) [Ratio] 17.8 % High 11.6-14.6 [facility] Erythrocyte distribution wid th standard deviationOrdered By: Ivelisse Ramirez on 11-19-2024 Erythrocyte distribution width (RBC) [Ratio] 50.9 fl High 35.1-43.9 [facility] Ferritinon 11-19-2024 Ferritin [Mass/Vol] 39 ng/mL Normal 22-378 [facility] Comment on above: Performed By: #### L 503.6150, L503.6550, L100.0100 ####[facility] [address] [place], [place], [id number] Gastroenterology Visit Repor ton 11-19-2024 Gastroenterology Visit Report Normal [facility] Hematocrit Auto (Bld) [Volum e fraction]Ordered By: Ivelisse Ramirez on 11-19-2024 Hematocrit (Bld) [Volume fraction] 39.0 % 37-47 [facility] Hemoglobin measurementOrdere d By: Ivelisse Ramirez on 11-19-2024 Hemoglobin (Bld) [Mass/Vol] 12.8 g/dL 12.0-15.0 [facility] Immature granulocytes/100 WB C Auto (Bld)Ordered By: Ivelisse Ramirez on 11-19-2024 Immature granulocytes/100 WBC (Bld) 0.300 % 0.0-0.9 [facility] Comment on above: IG% - Immature Granu locytes (promyelocytes, myelocytes and metamyelocytes) > 1% indicates that a LEFT SHIFT is Present. Ironon 11-19-2024 Iron [Mass/Vol] 89 ug/dL Normal 50-170 [facility] Comment on above: Performed By: #### L 503.6150, L503.6550, L100.0100 ####[facility] [address] [place], [place], [id number] Iron measurement (mass/mass) Ordered By: Ivelisse Ramirez on 11-19-2024 Iron (Unsp spec) [Mass/Mass] 89 ug/dL 50-170 [facility] MCV (mean corpuscular volume ) determinationOrdered By: Ivelisse Ramirez on 11-19-2024 MCV (RBC) [Entitic vol] 79.4 fL Low 81-99 [facility] Mean corpuscular hemoglobin (MCH) determinationOrdered By: Ivelisse Ramirez on 11-19-2024 MCH (RBC) [Entitic mass] 26.1 pg Low 27.0-32.0 [facility] Mean corpuscular hemoglobin concentration (MCHC) determinationOrdered By: Ivelisse Ramirez on 11-19-2024 MCHC (RBC) [Mass/Vol] 32.8 g/dL 32-36 [facility] Mean platelet volume determi nationOrdered By: Ivelisse Ramirez on 11-19-2024 Platelet mean volume (Bld) [Entitic vol] 9.6 fL 6.2-12.0 [facility] Monocyte percentageOrdered B y: Ivelisse Ramirez on 11-19-2024 Monocytes/100 WBC (Bld) 5.1 % 0-10 [facility] Neutrophil percentageOrdered By: Ivelisse Ramirez on 11-19-2024 Neutrophils/100 WBC (Bld) 55.2 % 47-70 [facility] Nucleated red blood cell per centageOrdered By: Ivelisse Ramirez on 11-19-2024 Nucleated RBC/100 WBC (Bld) [Ratio] 0 % 0-5 [facility] Platelet countOrdered By: Acacia Ramirez on 11-19-2024 Platelets (Bld) [#/Vol] 203 10*3/uL 150-450 [facility] RBC Auto (Bld) [#/Vol]Ordere d By: Ivelisse Ramirez on 11-19-2024 RBC (Bld) [#/Vol] 4.91 10*6/uL 4.2-5.4 [facility] Serum or plasma ferritin connie surement (mass/volume)Ordered By: Ivelisse Ramirez on 11-19-2024 Ferritin [Mass/Vol] 39 ng/mL 22-378 [facility] White blood cell (WBC) count Ordered By: Ivelisse Ramirez on 11-19-2024 WBC (Bld) [#/Vol] 6.7 10*3/uL 4.4-11.0 [facility] Random urine creatinine nya urement (mass/volume)Ordered By: Melanie Levy on 11-03-2024 Creatinine Unsp time (U) [Mass/Vol] 270.00 mg/dL High 28.00-217.00 [facility] Urine albumin measurement wi detection limit of 20 mg/L or less (mass/volume)Ordered By: Melanie Levy on 11-03-2024 Albumin DL <= 20 mg/L (U) [Mass/Vol] 206.0 mg/L NO RANGE EST. [facility] Absolute lymphocyte countOrd ered By: Ivelisse Ramirez on 09-17-2024 Lymphocytes Auto (Unsp spec) [#/Vol] 3.71 10*3/uL 0.83-4.51 [facility] Absolute neutrophil countOrd ered By: Ivelisse Ramirez on 09-17-2024 Neutrophils (Bld) [#/Vol] 3.8 10*3/uL 2.0-7.7 [facility] Anion gap in Serum or Plasma Ordered By: Melanie Levy on 09-17-2024 Anion gap [Moles/Vol] 10 mmol/L 5- [facility] Automated lymphocyte count a s percentage of total leukocytesOrdered By: Ivelisse Ramirez on 09-17-2024 Lymphocytes/100 WBC Auto (Unsp spec) 45.7 % High 19-41 [facility] BUN/creatinine ratioOrdered By: Melanie Levy on 09-17-2024 Urea nitrogen/Creatinine [Mass ratio] 18.2 mg/mg 10-20 [facility] Basophil percentageOrdered B y: Ivelisse Ramirez on 09-17-2024 Basophils/100 WBC (Bld) 0.6 % 0-1 [facility] Bilirubin, totalOrdered By: Melanie Levy on 09-17-2024 Bilirubin [Mass/Vol] 0.28 mg/dL 0.00-1.30 [facility] CBC W/Diff, Automatedon 08-30 Absolute Lymph 3.71 X10 3/uL Normal 0.83-4.51 [facility] Comment on above: Performed By: #### L 501.6710, L101.9900, L100.0100 ####[facility] [address] [place], [address] Absolute Neut 3.8 X10 3/uL Normal 2.0-7.7 [facility] Comment on above: Performed By: #### L 501.6710, L101.9900, L100.0100 ####[facility] [address] [place], [address] Basophils/100 WBC (Bld) 0.6 % Normal 0-1 [facility] Comment on above: Performed By: #### L 501.6710, L101.9900, L100.0100 ####[facility] [address] [place], [address] Eosinophils/100 WBC (Bld) 3.0 % Normal 0-5 [facility] Comment on above: Performed By: #### L 501.6710, L101.9900, L100.0100 ####[facility] [address] [place], [address] Erythrocyte distribution width (RBC) [Ratio] 13.8 % Normal 11.6-14.6 [facility] Comment on above: Performed By: #### L 501.6710, L101.9900, L100.0100 ####[facility] [address] [place], [address] Hematocrit (Bld) [Volume fraction] 33.9 % Low 37-47 [facility] Comment on above: Performed By: #### L 501.6710, L101.9900, L100.0100 ####[facility] [address] [place], [address] Hemoglobin (Bld) [Mass/Vol] 10.7 g/dL Low 12.0-15.0 [facility] Comment on above: Performed By: #### L 501.6710, L101.9900, L100.0100 ####[facility] [address] [place], [address] IG% 0.200 Normal 0.0-0.9 [facility] Comment on above: Result Comment: IG% - Immature Granulocytes (promyelocytes, myelocytes andmetamyelocytes) > 1% indicates that a LEFT SHIFT is Present. Performed By: #### L 501.6710, L101.9900, L100.0100 ####[facility] [address] [place], [address] Lymphocytes/100 WBC (Bld) 45.7 % High 19-41 [facility] Comment on above: Performed By: #### L 501.6710, L101.9900, L100.0100 ####[facility] [address] [place], [address] MCH (RBC) [Entitic mass] 24.5 pg Low 27.0-32.0 [facility] Comment on above: Performed By: #### L 501.6710, L101.9900, L100.0100 ####[facility] [address] [place], [address] MCHC (RBC) [Mass/Vol] 31.6 g/dL Low 32-36 [facility] Comment on above: Performed By: #### L 501.6710, L101.9900, L100.0100 ####[facility] [address] [place], [address] MCV (RBC) [Entitic vol] 77.8 fL Low 81-99 [facility] Comment on above: Performed By: #### L 501.6710, L101.9900, L100.0100 ####[facility] [address] [place], [address] Monocytes/100 WBC (Bld) 4.2 % Normal 0-10 [facility] Comment on above: Performed By: #### L 501.6710, L101.9900, L100.0100 ####[facility] [address] [place], [address] Neutrophils/100 WBC (Bld) 46.3 % Low 47-70 [facility] Comment on above: Performed By: #### L 501.6710, L101.9900, L100.0100 ####[facility] [address] [place], [address] Nucleated RBC (Bld) [#/Vol] 0 10*3/uL Normal 0-5 [facility] Comment on above: Performed By: #### L 501.6710, L101.9900, L100.0100 ####[facility] [address] [place], [address] Platelet mean volume (Bld) [Entitic vol] 10.2 fL Normal 6.2-12.0 [facility] Comment on above: Performed By: #### L 501.6710, L101.9900, L100.0100 ####[facility] [address] [place], [address] Platelets (Bld) [#/Vol] 229 10*3/uL Normal 150-450 [facility] Comment on above: Performed By: #### L 501.6710, L101.9900, L100.0100 ####[facility] [address] [place], [address] RBC (Bld) [#/Vol] 4.36 10*6/uL Normal 4.2-5.4 [facility] Comment on above: Performed By: #### L 501.6710, L101.9900, L100.0100 ####[facility] [address] [place], [address] RDW SD 39.5 fl Normal 35.1-43.9 [facility] Comment on above: Performed By: #### L 501.6710, L101.9900, L100.0100 ####[facility] [address] [place], [address] WBC (Bld) [#/Vol] 8.1 10*3/uL Normal 4.4-11.0 [facility] Comment on above: Performed By: #### L 501.6710, L101.9900, L100.0100 ####[facility] [address] [place], [address] CBC-Complete Blood Cnt No Di ffon 09-17-2024 Erythrocyte distribution width (RBC) [Ratio] 13.7 % Normal 11.6-14.6 [facility] Comment on above: Order Comment: Order Date: 07/07/24Order Info: [id number] - CBC Performed By: #### L 501.9520, L100.0500, L503.6550, L500.4050, L503.6150 ####[facility] [address] [place], [address] Hematocrit (Bld) [Volume fraction] 34.0 % Low 37-47 [facility] Comment on above: Order Comment: Order Date: 07/07/24Order Info: [id number] - CBC Performed By: #### L 501.9520, L100.0500, L503.6550, L500.4050, L503.6150 ####[facility] [address] [place], [address] Hemoglobin (Bld) [Mass/Vol] 10.5 g/dL Low 12.0-15.0 [facility] Comment on above: Order Comment: Order Date: 07/07/24Order Info: [id number] - CBC Performed By: #### L 501.9520, L100.0500, L503.6550, L500.4050, L503.6150 ####[facility] [address] [place], [address] MCH (RBC) [Entitic mass] 24.0 pg Low 27.0-32.0 [facility] Comment on above: Order Comment: Order Date: 07/07/24Order Info: [id number] - CBC Performed By: #### L 501.9520, L100.0500, L503.6550, L500.4050, L503.6150 ####[facility] [address] [place], [address] MCHC (RBC) [Mass/Vol] 30.9 g/dL Low 32-36 [facility] Comment on above: Order Comment: Order Date: 07/07/24Order Info: [id number] - CBC Performed By: #### L 501.9520, L100.0500, L503.6550, L500.4050, L503.6150 ####[facility] [address] [place], [address] MCV (RBC) [Entitic vol] 77.8 fL Low 81-99 [facility] Comment on above: Order Comment: Order Date: 07/07/24Order Info: [id number] - CBC Performed By: #### L 501.9520, L100.0500, L503.6550, L500.4050, L503.6150 ####[facility] [address] [place], [address] Platelet mean volume (Bld) [Entitic vol] 10.0 fL Normal 6.2-12.0 [facility] Comment on above: Order Comment: Order Date: 07/07/24Order Info: [id number] - CBC Performed By: #### L 501.9520, L100.0500, L503.6550, L500.4050, L503.6150 ####[facility] [address] [place], [address] Platelets (Bld) [#/Vol] 226 10*3/uL Normal 150-450 [facility] Comment on above: Order Comment: Order Date: 07/07/24Order Info: [id number] - CBC Performed By: #### L 501.9520, L100.0500, L503.6550, L500.4050, L503.6150 ####[facility] [address] [place], [address] RBC (Bld) [#/Vol] 4.37 10*6/uL Normal 4.2-5.4 [facility] Comment on above: Order Comment: Order Date: 07/07/24Order Info: [id number] - CBC Performed By: #### L 501.9520, L100.0500, L503.6550, L500.4050, L503.6150 ####[facility] [address] [place], [address] RDW SD 39.2 fl Normal 35.1-43.9 [facility] Comment on above: Order Comment: Order Date: 07/07/24Order Info: [id number] - CBC Performed By: #### L 501.9520, L100.0500, L503.6550, L500.4050, L503.6150 ####[facility] [address] [place], [address] WBC (Bld) [#/Vol] 8.0 10*3/uL Normal 4.4-11.0 [facility] Comment on above: Order Comment: Order Date: 07/07/24Order Info: [id number] - CBC Performed By: #### L 501.9520, L100.0500, L503.6550, L500.4050, L503.6150 ####[facility] [address] [place], [address] CRPon 09-17-2024 C-REACTIVE PROT < 3.00 Normal 0.0-3.0 [facility] Comment on above: Performed By: #### L 501.6710, L101.9900, L100.0100 ####[facility] [address] [place], [address] CRP [Mass/Vol]Ordered By: Acacia Ramirez on 09-17-2024 C-Reactive Protein Extended Range < 3.00 mg/L 0.0-3.0 [facility] Carbon dioxide, total [Moles /volume] in Central venous bloodOrdered By: Melanie [place] on 09-17-2024 CO2 [Moles/Vol] 27.5 mmol/L 21.0-32.0 [facility] Chloride assayOrdered By: Natalia [place] on 09-17-2024 Chloride [Moles/Vol] 103 mmol/L 98-108 [facility] Comprehensive Metabolic Prof ilon 09-17-2024 Albumin [Mass/Vol] 4.2 g/dL Normal 3.4-4.8 [facility] Comment on above: Order Comment: Order Date: 07/07/24Order Info: [id number] - CMPOrder Info: [id number] - LIPIDOrder Info: [id number] - TSHOrder Info: [id number] - FEOrder Info: [id number] - VI Performed By: #### L 501.9520, L100.0500, L503.6550, L500.4050, L503.6150 ####[facility] [address] [place], [address] Albumin/Globulin [Mass ratio] 1.3 {ratio} Normal 0.9-2.4 [facility] Comment on above: Order Comment: Order Date: 07/07/24Order Info: [id number] - CMPOrder Info: [id number] - LIPIDOrder Info: [id number] - TSHOrder Info: [id number] - FEOrder Info: [id number] - VI Performed By: #### L 501.9520, L100.0500, L503.6550, L500.4050, L503.6150 ####[facility] [address] [place], [address] ALK PHOS 113 U/L High 35-104 [facility] Comment on above: Order Comment: Order Date: 07/07/24Order Info: [id number] - CMPOrder Info: [id number] - LIPIDOrder Info: [id number] - TSHOrder Info: [id number] - FEOrder Info: [id number] - VI Performed By: #### L 501.9520, L100.0500, L503.6550, L500.4050, L503.6150 ####[facility] [address] [place], [address] ALT [Catalytic activity/Vol] 9 U/L Normal <=34 [facility] Comment on above: Order Comment: Order Date: 07/07/24Order Info: 86-1 - CMPOrder Info: [id number] - LIPIDOrder Info: [id number] - TSHOrder Info: [id number] - FEOrder Info: [id number] - VI Performed By: #### L 501.9520, L100.0500, L503.6550, L500.4050, L503.6150 ####[facility] [address] [place], [address] AST [Catalytic activity/Vol] 17 U/L Normal <=31 [facility] Comment on above: Order Comment: Order Date: 07/07/24Order Info: 86-1 - CMPOrder Info: [id number] - LIPIDOrder Info: [id number] - TSHOrder Info: [id number] - FEOrder Info: [id number] - VI Performed By: #### L 501.9520, L100.0500, L503.6550, L500.4050, L503.6150 ####[facility] [address] [place], [address] Bilirubin [Mass/Vol] 0.28 mg/dL Normal 0.00-1.30 [facility] Comment on above: Order Comment: Order Date: 07/07/24Order Info: [id number] - CMPOrder Info: [id number] - LIPIDOrder Info: 3 - TSHOrder Info: [id number] - FEOrder Info: [id number] - VI Performed By: #### L 501.9520, L100.0500, L503.6550, L500.4050, L503.6150 ####[facility] [address] [place], [address] BUN/CRE 18.2 RATIO Normal 10-20 [facility] Comment on above: Order Comment: Order Date: 07/07/24Order Info: [id number] - CMPOrder Info: [id number] - LIPIDOrder Info: [id number] - TSHOrder Info: [id number] - FEOrder Info: [id number] - VI Performed By: #### L 501.9520, L100.0500, L503.6550, L500.4050, L503.6150 ####[facility] [address] [place], [address] Calcium [Mass/Vol] 9.4 mg/dL Normal 7.6-11.0 [facility] Comment on above: Order Comment: Order Date: 07/07/24Order Info: 86-1 - CMPOrder Info: [id number] - LIPIDOrder Info: 3 - TSHOrder Info: [id number] - FEOrder Info: [id number] - VI Performed By: #### L 501.9520, L100.0500, L503.6550, L500.4050, L503.6150 ####[facility] [address] [place], [address] Chloride [Moles/Vol] 103 mmol/L Normal 98-108 [facility] Comment on above: Order Comment: Order Date: 07/07/24Order Info: [id number] - CMPOrder Info: [id number] - LIPIDOrder Info: [id number] - TSHOrder Info: [id number] - FEOrder Info: [id number] - VI Performed By: #### L 501.9520, L100.0500, L503.6550, L500.4050, L503.6150 ####[facility] [address] [place], [address] CO2 [Moles/Vol] 27.5 mmol/L Normal 21.0-32.0 [facility] Comment on above: Order Comment: Order Date: 07/07/24Order Info: [id number] - CMPOrder Info: [id number] - LIPIDOrder Info: [id number] - TSHOrder Info: [id number] - FEOrder Info: [id number] - VI Performed By: #### L 501.9520, L100.0500, L503.6550, L500.4050, L503.6150 ####[facility] [address] [place], [address] Creatinine [Mass/Vol] 0.97 mg/dL Normal 0.70-1.20 [facility] Comment on above: Order Comment: Order Date: 07/07/24Order Info: 86-1 - CMPOrder Info: [id number] - LIPIDOrder Info: [id number] - TSHOrder Info: [id number] - FEOrder Info: [id number] - VI Performed By: #### L 501.9520, L100.0500, L503.6550, L500.4050, L503.6150 ####[facility] [address] [place], [address] GAP 10 Normal 5-15 [facility] Comment on above: Order Comment: Order Date: 07/07/24Order Info: [id number] - CMPOrder Info: [id number] - LIPIDOrder Info: [id number] - TSHOrder Info: [id number] - FEOrder Info: [id number] - VI Performed By: #### L 501.9520, L100.0500, L503.6550, L500.4050, L503.6150 ####[facility] [address] [place], [address] GFR/1.73 sq M.predicted among non-blacks MDRD (S/P/Bld) [Vol rate/Area] 65 mL/min/{1.73_m2} Normal >60 [facility] Comment on above: Order Comment: Order Date: 07/07/24Order Info: [id number] - CMPOrder Info: [id number] - LIPIDOrder Info: [id number] - TSHOrder Info: [id number] - FEOrder Info: [id number] - VI Result Comment: mL/m in/1.73m2 CKD-EPI Creatinine Equation (2020) Performed By: #### L 501.9520, L100.0500, L503.6550, L500.4050, L503.6150 ####[facility] [address] [place], [address] Globulin (S) [Mass/Vol] 3.2 g/dL Normal 2.2-4.2 [facility] Comment on above: Order Comment: Order Date: 07/07/24Order Info: [id number] - CMPOrder Info: [id number] - LIPIDOrder Info: 6-3 - TSHOrder Info: [id number] - FEOrder Info: [id number] - IV Performed By: #### L 501.9520, L100.0500, L503.6550, L500.4050, L503.6150 ####[facility] [address] [place], [address] Glucose [Mass/Vol] 163 mg/dL High 70-99 [facility] Comment on above: Order Comment: Order Date: 07/07/24Order Info: [id number] - CMPOrder Info: [id number] - LIPIDOrder Info: [id number] - TSHOrder Info: [id number] - FEOrder Info: [id number] - VI Performed By: #### L 501.9520, L100.0500, L503.6550, L500.4050, L503.6150 ####[facility] [address] [place], [address] Potassium [Moles/Vol] 4.5 mmol/L Normal 3.3-5.1 [facility] Comment on above: Order Comment: Order Date: 07/07/24Order Info: [id number] - CMPOrder Info: [id number] - LIPIDOrder Info: [id number] - TSHOrder Info: [id number] - FEOrder Info: 4 - VI Performed By: #### L 501.9520, L100.0500, L503.6550, L500.4050, L503.6150 ####[facility] [address] [place], [address] Sodium [Moles/Vol] 141 mmol/L Normal 133-145 [facility] Comment on above: Order Comment: Order Date: 07/07/24Order Info: [id number] - CMPOrder Info: [id number] - LIPIDOrder Info: 6-3 - TSHOrder Info: [id number] - FEOrder Info: 4 - VI Performed By: #### L 501.9520, L100.0500, L503.6550, L500.4050, L503.6150 ####[facility] [address] [place], [address] T PROT 7.4 g/dL Normal 5.9-8.4 [facility] Comment on above: Order Comment: Order Date: 07/07/24Order Info: [id number] - CMPOrder Info: [id number] - LIPIDOrder Info: 6-3 - TSHOrder Info: [id number] - FEOrder Info: [id number] - VI Performed By: #### L 501.9520, L100.0500, L503.6550, L500.4050, L503.6150 ####[facility] [address] [place], [address] Urea nitrogen [Mass/Vol] 18 mg/dL Normal 4-19 [facility] Comment on above: Order Comment: Order Date: 07/07/24Order Info: [id number] - CMPOrder Info: [id number] - LIPIDOrder Info: [id number] - TSHOrder Info: [id number] - FEOrder Info: [id number] - VI Performed By: #### L 501.9520, L100.0500, L503.6550, L500.4050, L503.6150 ####[facility] [address] [place], [address] Eosinophil percentageOrdered By: Ivelisse Ramirez on 09-17-2024 Eosinophils/100 WBC (Bld) 3.0 % 0-5 [facility] Erythrocyte Sed Rateon 09-17 SED RATE 6 mm/hr Normal 0-30 [facility] Comment on above: Performed By: #### L 501.6710, L101.9900, L100.0100 ####[facility] [address] [place], [place], [address] Erythrocyte distribution wid th ratioOrdered By: Melanie [place] on 09-17-2024 Erythrocyte distribution width (RBC) [Ratio] 13.7 % 11.6-14.6 [facility] Erythrocyte distribution wid th standard deviationOrdered By: Melanie Levy on 09-17-2024 Erythrocyte distribution width (RBC) [Entitic vol] 39.2 fL 35.1-43.9 [facility] Erythrocyte distribution width (RBC) [Ratio] 39.2 fl 35.1-43.9 [facility] Erythrocyte sedimentation ra teOrdered By: Ivelisse Ramirez on 09-17-2024 ESR (Bld) [Velocity] 6 mm/h 0-30 [facility] Ferritinon 09-17-2024 Ferritin [Mass/Vol] 11 ng/mL Low 22-378 [facility] Comment on above: Order Comment: Order Date: 07/07/24Order Info: [id number] - CMPOrder Info: [id number] - LIPIDOrder Info: [id number] - TSHOrder Info: [id number] - FEOrder Info: [id number] - VI Performed By: #### L 501.9520, L100.0500, L503.6550, L500.4050, L503.6150 ####[facility] [address] [place], [place], [address] GFR/1.73 sq M.predicted morgan g non-blacks MDRD (S/P/Bld) [Vol rate/Area]Ordered By: Melanie [place] on 09-17-2024 Estimated GFR (MDRD) Non-Af Amer 65 >60 [facility] Comment on above: mL/min/1.73m2 CKD-EP I Creatinine Equation (2020) Gastroenterology Visit Repor ton 09-17-2024 Gastroenterology Visit Report Normal [facility] Glomerular filtration rate ( GFR) estimation/1.73 sq m using serum, plasma, or whole bOrdered By: Melanie Levy on 09-17-2024 GFR/1.73 sq M.predicted among non-blacks MDRD (S/P/Bld) [Vol rate/Area] 65 mL/min/{1.73_m2} >60 [facility] Comment on above: mL/min/1.73m2 CKD-EP I Creatinine Equation (2020) Hematocrit Auto (Bld) [Volum e fraction]Ordered By: Melanie Levy on 09-17-2024 Hematocrit (Bld) [Volume fraction] 34.0 % Low 37-47 [facility] Hemoglobin measurementOrdere d By: Melanie Levy on 09-17-2024 Hemoglobin (Bld) [Mass/Vol] 10.5 g/dL Low 12.0-15.0 [facility] Immature granulocytes/100 WB C Auto (Bld)Ordered By: Ivelisse Ramirez on 09-17-2024 Immature granulocytes/100 WBC (Bld) 0.200 % 0.0-0.9 [facility] Comment on above: IG% - Immature Granu locytes (promyelocytes, myelocytes and metamyelocytes) > 1% indicates that a LEFT SHIFT is Present. Ironon 09-17-2024 Iron [Mass/Vol] 26 ug/dL Low 50-170 [facility] Comment on above: Order Comment: Order Date: 07/07/24Order Info: [id number] - CMPOrder Info: [id number] - LIPIDOrder Info: [id number] - TSHOrder Info: [id number] - FEOrder Info: [id number] - VI Performed By: #### L 501.9520, L100.0500, L503.6550, L500.4050, L503.6150 ####[facility] [address] [place], [address] Iron (Unsp spec) [Mass/Mass] Ordered By: Melanie Levy on 09-17-2024 Iron [Mass/Vol] 26 ug/dL Low 50-170 [facility] Iron measurement (mass/mass) Ordered By: Melanie Levy on 09-17-2024 Iron (Unsp spec) [Mass/Mass] 26 ug/dL Low 50-170 [facility] L503.0106on 09-17-2024 Cobalamin (Vitamin B12) [Mass/Vol] 307 pg/mL Normal 180-914 [facility] Comment on above: Order Comment: Order Date: 07/07/24Order Info: [id number] - CMPOrder Info: [id number] - LIPIDOrder Info: [id number] - TSHOrder Info: [id number] - FEOrder Info: [id number] - VI Performed By: #### L 503.0106 ####[facility] [address] [place], [address] Laboratory - Chemistry and C hemistry - challengeOrdered By: Melanie Levy on 09-17-2024 AST [Catalytic activity/Vol] 17 U/L <32 [facility] Lymphocytes Auto (Unsp spec) [#/Vol]Ordered By: Ivelisse Ramirez on 09-17-2024 Lymphocytes (Bld) [#/Vol] 3.71 10*3/uL 0.83-4.51 [facility] Lymphocytes/100 WBC Auto (Un sp spec)Ordered By: Ivelisse Ramirez on 09-17-2024 Lymphocytes/100 WBC (Bld) 45.7 % High 19-41 [facility] MCV (mean corpuscular volume ) determinationOrdered By: Melanie Levy on 09-17-2024 MCV (RBC) [Entitic vol] 77.8 fL Low 81-99 [facility] Mean corpuscular hemoglobin (MCH) determinationOrdered By: Melanie Levy on 09-17-2024 MCH (RBC) [Entitic mass] 24.0 pg Low 27.0-32.0 [facility] Mean corpuscular hemoglobin concentration (MCHC) determinationOrdered By: Melanie Levy on 09-17-2024 MCHC (RBC) [Mass/Vol] 30.9 g/dL Low 32-36 [facility] Mean platelet volume determi nationOrdered By: Melanie Levy on 09-17-2024 Platelet mean volume (Bld) [Entitic vol] 10.0 fL 6.2-12.0 [facility] Monocyte percentageOrdered B y: Ivelisse Ramirez on 09-17-2024 Monocytes/100 WBC (Bld) 4.2 % 0-10 [facility] Neutrophil percentageOrdered By: Ivelisse Ramirez on 09-17-2024 Neutrophils/100 WBC (Bld) 46.3 % Low 47-70 [facility] Nucleated red blood cell per centageOrdered By: Ivelisse Ramirez on 09-17-2024 Nucleated RBC/100 WBC (Bld) [Ratio] 0 % 0-5 [facility] Platelet countOrdered By: Natalia Levy on 09-17-2024 Platelets (Bld) [#/Vol] 226 10*3/uL 150-450 [facility] Potassium (Unsp spec) [Mass/ Vol]Ordered By: Melanie Levy on 09-17-2024 Potassium [Moles/Vol] 4.5 mmol/L 3.3-5.1 [facility] Potassium measurement (mass/ volume)Ordered By: Melanie Levy on 09-17-2024 Potassium (Unsp spec) [Mass/Vol] 4.5 mmol/L 3.3-5.1 [facility] RBC Auto (Bld) [#/Vol]Ordere d By: Melanie Levy on 09-17-2024 RBC (Bld) [#/Vol] 4.37 10*6/uL 4.2-5.4 [facility] Serum creatinine measurement (mass/volume)Ordered By: Melanie Levy on 09-17-2024 Creatinine [Mass/Vol] 0.97 mg/dL 0.70-1.20 [facility] Serum globulin measurementOr dered By: Melanie Levy on 09-17-2024 Globulin (S) [Mass/Vol] 3.2 g/dL 2.2-4.2 [facility] Serum glucose measurement (m ass/volume)Ordered By: Melanie Levy on 09-17-2024 Glucose [Mass/Vol] 163 mg/dL High 70-99 [facility] Serum or plasma C reactive p rotein measurement (mass/volume)Ordered By: Ivelisse Ramirez on 09-17-2024 CRP [Mass/Vol] mg/L 0.0-3.0 [facility] Serum or plasma alanine daams otransferase (ALT) measurementOrdered By: Melanie Levy on 09-17-2024 ALT [Catalytic activity/Vol] 9 U/L <35 [facility] Serum or plasma albumin nya urement (mass/volume)Ordered By: Melanie Levy on 09-17-2024 Albumin [Mass/Vol] 4.2 g/dL 3.4-4.8 [facility] Serum or plasma albumin/glob ulin mass ratioOrdered By: Melanie Levy on 09-17-2024 Albumin/Globulin [Mass ratio] 1.3 {ratio} 0.9-2.4 [facility] Serum or plasma alkaline asleem sphatase measurementOrdered By: Melanie Levy on 09-17-2024 ALP [Catalytic activity/Vol] 113 U/L High 35-104 [facility] Serum or plasma calcium nya urement (mass/volume)Ordered By: Melanie Levy on 09-17-2024 Calcium [Mass/Vol] 9.4 mg/dL 7.6-11.0 [facility] Serum or plasma ferritin connie surement (mass/volume)Ordered By: Melanie Levy on 09-17-2024 Ferritin [Mass/Vol] 11 ng/mL Low 22-378 [facility] Serum or plasma urea nitroge n measurement (mass/volume)Ordered By: Melanie Levy on 09-17-2024 Urea nitrogen [Mass/Vol] 18 mg/dL 4-19 [facility] Sodium levelOrdered By: Shreyas Levy on 09-17-2024 Sodium [Moles/Vol] 141 mmol/L 133-145 [facility] TSH DL <= 0.005 mIU/L QnOrde red By: Melanie Levy on 09-17-2024 Thyroid Stimulating Hormone (TSH) 2.820 uIU/mL 0.300-4.200 [facility] TSH Qn 2.820 uIU/mL 0.300-4.200 [facility] Thyroid Stim Hormone (TSH)on 09-17-2024 TSH 2.820 uIU/mL Normal 0.300-4.200 [facility] Comment on above: Order Comment: Order Date: 07/07/24Order Info: [id number] - CMPOrder Info: [id number] - LIPIDOrder Info: [id number] - TSHOrder Info: [id number] - FEOrder Info: [id number] - VI Performed By: #### L 501.9520, L100.0500, L503.6550, L500.4050, L503.6150 ####[facility] [address] [place], [address] Total proteinOrdered By: Tia Levy on 09-17-2024 Protein [Mass/Vol] 7.4 g/dL 5.9-8.4 [facility] Vitamin B12 ser/plasOrdered By: Melanie Levy on 09-17-2024 Cobalamin (Vitamin B12) [Mass/Vol] 307 pg/mL 180-914 [facility] White blood cell (WBC) count Ordered By: Melanie Levy on 09-17-2024 WBC (Bld) [#/Vol] 8.0 10*3/uL 4.4-11.0 [facility] Endocrinology Visit Reporton 09-07-2024 Endocrinology Visit Report Normal [facility] Office Visit Reporton 2024 Office Visit Report Normal [facility] Absolute lymphocyte countOrd ered By: Ivelisse Ramirez on 08-12-2024 Lymphocytes Auto (Unsp spec) [#/Vol] 2.78 10*3/uL 0.83-4.51 [facility] Absolute neutrophil countOrd ered By: Ivelisse Ramirez on 08-12-2024 Neutrophils (Bld) [#/Vol] 4.2 10*3/uL 2.0-7.7 [facility] Automated lymphocyte count a s percentage of total leukocytesOrdered By: Ivelisse Ramirez on 08-12-2024 Lymphocytes/100 WBC Auto (Unsp spec) 36.7 % 19-41 [facility] Basophil percentageOrdered B y: Ivelisse Ramirez on 08-12-2024 Basophils/100 WBC (Bld) 0.7 % 0-1 [facility] CBC W/Diff, Automatedon 08-01-2024 Absolute Lymph 2.78 X10 3/uL Normal 0.83-4.51 [facility] Comment on above: Performed By: #### L 100.0100, L503.6150 ####[facility] [address] [place], [address] Absolute Neut 4.2 X10 3/uL Normal 2.0-7.7 [facility] Comment on above: Performed By: #### L 100.0100, L503.6150 ####[facility] [address] [place], [address] Basophils/100 WBC (Bld) 0.7 % Normal 0-1 [facility] Comment on above: Performed By: #### L 100.0100, L503.6150 ####[facility] [address] [place], [address] Eosinophils/100 WBC (Bld) 2.9 % Normal 0-5 [facility] Comment on above: Performed By: #### L 100.0100, L503.6150 ####[facility] [address] [place], [address] Erythrocyte distribution width (RBC) [Ratio] 13.4 % Normal 11.6-14.6 [facility] Comment on above: Performed By: #### L 100.0100, L503.6150 ####[facility] [address] [place], [address] Hematocrit (Bld) [Volume fraction] 34.1 % Low 37-47 [facility] Comment on above: Performed By: #### L 100.0100, L503.6150 ####[facility] [address] [place], [address] Hemoglobin (Bld) [Mass/Vol] 10.7 g/dL Low 12.0-15.0 [facility] Comment on above: Performed By: #### L 100.0100, L503.6150 ####[facility] [address] [place], [address] IG% 0.300 Normal 0.0-0.9 [facility] Comment on above: Result Comment: IG% - Immature Granulocytes (promyelocytes, myelocytes andmetamyelocytes) > 1% indicates that a LEFT SHIFT is Present. Performed By: #### L 100.0100, L503.6150 ####[facility] [address] [place], [address] Lymphocytes/100 WBC (Bld) 36.7 % Normal 19-41 [facility] Comment on above: Performed By: #### L 100.0100, L503.6150 ####[facility] [address] [place], [address] MCH (RBC) [Entitic mass] 25.5 pg Low 27.0-32.0 [facility] Comment on above: Performed By: #### L 100.0100, L503.6150 ####[facility] [address] [place], [address] MCHC (RBC) [Mass/Vol] 31.4 g/dL Low 32-36 [facility] Comment on above: Performed By: #### L 100.0100, L503.6150 ####[facility] [address] [place], [address] MCV (RBC) [Entitic vol] 81.2 fL Normal 81-99 [facility] Comment on above: Performed By: #### L 100.0100, L503.6150 ####[facility] [address] [place], [address] Monocytes/100 WBC (Bld) 4.5 % Normal 0-10 [facility] Comment on above: Performed By: #### L 100.0100, L503.6150 ####[facility] [address] [place], [address] Neutrophils/100 WBC (Bld) 54.9 % Normal 47-70 [facility] Comment on above: Performed By: #### L 100.0100, L503.6150 ####[facility] [address] [place], [address] Nucleated RBC (Bld) [#/Vol] 0 10*3/uL Normal 0-5 [facility] Comment on above: Performed By: #### L 100.0100, L503.6150 ####[facility] [address] [place], [address] Platelet mean volume (Bld) [Entitic vol] 10.1 fL Normal 6.2-12.0 [facility] Comment on above: Performed By: #### L 100.0100, L503.6150 ####[facility] [address] [place], [address] Platelets (Bld) [#/Vol] 277 10*3/uL Normal 150-450 [facility] Comment on above: Performed By: #### L 100.0100, L503.6150 ####[facility] [address] [place], [address] RBC (Bld) [#/Vol] 4.20 10*6/uL Normal 4.2-5.4 [facility] Comment on above: Performed By: #### L 100.0100, L503.6150 ####[facility] [address] [place], [address] RDW SD 39.7 fl Normal 35.1-43.9 [facility] Comment on above: Performed By: #### L 100.0100, L503.6150 ####[facility] [address] [place], [address] WBC (Bld) [#/Vol] 7.6 10*3/uL Normal 4.4-11.0 [facility] Comment on above: Performed By: #### L 100.0100, L503.6150 ####[facility] [address] [place], [address] Eosinophil percentageOrdered By: Ivelisse Ramirez on 08-12-2024 Eosinophils/100 WBC (Bld) 2.9 % 0-5 [facility] Erythrocyte distribution wid th ratioOrdered By: Ivelisse Ramirez on 08-12-2024 Erythrocyte distribution width (RBC) [Ratio] 13.4 % 11.6-14.6 [facility] Erythrocyte distribution wid th standard deviationOrdered By: Ivelisse Ramirez on 08-12-2024 Erythrocyte distribution width (RBC) [Entitic vol] 39.7 fL 35.1-43.9 [facility] Erythrocyte distribution width (RBC) [Ratio] 39.7 fl 35.1-43.9 [facility] Gastroenterology Visit Repor ton 08-12-2024 Gastroenterology Visit Report Normal [facility] Hematocrit Auto (Bld) [Volum e fraction]Ordered By: Ivelisse Ramirez on 08-12-2024 Hematocrit (Bld) [Volume fraction] 34.1 % Low 37-47 [facility] Hemoglobin measurementOrdere d By: Ivelisse Ramirez on 08-12-2024 Hemoglobin (Bld) [Mass/Vol] 10.7 g/dL Low 12.0-15.0 [facility] Immature granulocytes/100 WB C Auto (Bld)Ordered By: Ivelisse Ramirez on 08-12-2024 Immature granulocytes/100 WBC (Bld) 0.300 % 0.0-0.9 [facility] Comment on above: IG% - Immature Granu locytes (promyelocytes, myelocytes and metamyelocytes) > 1% indicates that a LEFT SHIFT is Present. Ironon 08-12-2024 Iron [Mass/Vol] 33 ug/dL Low 50-170 [facility] Comment on above: Performed By: #### L 100.0100, L503.6150 ####[facility] [address] [place], [address] Iron (Unsp spec) [Mass/Mass] Ordered By: Ivelisse Ramirez on 08-12-2024 Iron [Mass/Vol] 33 ug/dL Low 50-170 [facility] Iron measurement (mass/mass) Ordered By: Ivelisse Ramirez on 08-12-2024 Iron (Unsp spec) [Mass/Mass] 33 ug/dL Low 50-170 [facility] Lymphocytes Auto (Unsp spec) [#/Vol]Ordered By: Ivelisse Ramirez on 08-12-2024 Lymphocytes (Bld) [#/Vol] 2.78 10*3/uL 0.83-4.51 [facility] Lymphocytes/100 WBC Auto (Un sp spec)Ordered By: Ivelisse Ramirez on 08-12-2024 Lymphocytes/100 WBC (Bld) 36.7 % 19-41 [facility] MCV (mean corpuscular volume ) determinationOrdered By: Ivelisse Ramirez on 08-12-2024 MCV (RBC) [Entitic vol] 81.2 fL 81-99 [facility] Mean corpuscular hemoglobin (MCH) determinationOrdered By: Ivelisse Ramirez on 08-12-2024 MCH (RBC) [Entitic mass] 25.5 pg Low 27.0-32.0 [facility] Mean corpuscular hemoglobin concentration (MCHC) determinationOrdered By: Ivelisse Ramirez on 08-12-2024 MCHC (RBC) [Mass/Vol] 31.4 g/dL Low 32-36 [facility] Mean platelet volume determi nationOrdered By: Ivelisse Ramirez on 08-12-2024 Platelet mean volume (Bld) [Entitic vol] 10.1 fL 6.2-12.0 [facility] Monocyte percentageOrdered B y: Ivelisse Ramirez on 08-12-2024 Monocytes/100 WBC (Bld) 4.5 % 0-10 [facility] Neutrophil percentageOrdered By: Ivelisse Ramirez on 08-12-2024 Neutrophils/100 WBC (Bld) 54.9 % 47-70 [facility] Nucleated red blood cell per centageOrdered By: Ivelisse Ramirez on 08-12-2024 Nucleated RBC/100 WBC (Bld) [Ratio] 0 % 0-5 [facility] Platelet countOrdered By: Acacia Ramirez on 08-12-2024 Platelets (Bld) [#/Vol] 277 10*3/uL 150-450 [facility] RBC Auto (Bld) [#/Vol]Ordere d By: Ivelisse Ramirez on 08-12-2024 RBC (Bld) [#/Vol] 4.20 10*6/uL 4.2-5.4 [facility] White blood cell (WBC) count Ordered By: Ivelisse Ramirez on 08-12-2024 WBC (Bld) [#/Vol] 7.6 10*3/uL 4.4-11.0 [facility] Absolute lymphocyte countOrd ered By: Marielena Roberts on 07-29-2024 Lymphocytes Auto (Unsp spec) [#/Vol] 2.57 10*3/uL 0.83-4.51 [facility] Absolute neutrophil countOrd ered By: Marielena Roberts on 07-29-2024 Neutrophils (Bld) [#/Vol] 6.6 10*3/uL 2.0-7.7 [facility] Automated lymphocyte count a s percentage of total leukocytesOrdered By: Marielena Roberts on 07-29-2024 Lymphocytes/100 WBC Auto (Unsp spec) 26.3 % 19-41 [facility] Basic Metabolic Profile (BMP )on 07-29-2024 BUN/CRE 11.7 RATIO Normal 10-20 [facility] Comment on above: Performed By: #### L 500.2500, L100.0100 ####[facility] [address] [place], [address] CA,Total 9.1 mg/dL Normal 8.5-10.1 [facility] Comment on above: Performed By: #### L 500.2500, L100.0100 ####[facility] [address] [place], [address] Chloride [Moles/Vol] 107 mmol/L Normal 98-107 [facility] Comment on above: Performed By: #### L 500.2500, L100.0100 ####[facility] [address] [place], [address] CO2 [Moles/Vol] 25.0 mmol/L Normal 21.0-32.0 [facility] Comment on above: Performed By: #### L 500.2500, L100.0100 ####[facility] [address] [place], [address] Creatinine [Mass/Vol] 0.94 mg/dL Normal 0.55-1.02 [facility] Comment on above: Result Comment: The validity of the calculated GFR GFRAA in patients over70 years has not been determined. Clinical correlation isessential. Performed By: #### L 500.2500, L100.0100 ####[facility] [address] [place], [address] ECRCL 46.56 ml/min Normal [facility] Comment on above: Performed By: #### L 500.2500, L100.0100 ####[facility] [address] [place], [address] EST GFR - AA 76 mL/min Normal >60 [facility] Comment on above: Result Comment: Afri can Beninese GFR Calc Performed By: #### L 500.2500, L100.0100 ####[facility] [address] [place], [address] GAP 8 Normal 5-15 [facility] Comment on above: Performed By: #### L 500.2500, L100.0100 ####[facility] [address] [place], [address] GFR/1.73 sq M.predicted among non-blacks MDRD (S/P/Bld) [Vol rate/Area] 63 mL/min/{1.73_m2} Normal >60 [facility] Comment on above: Result Comment: Non- GFR Calc Performed By: #### L 500.2500, L100.0100 ####[facility] [address] [place], [address] Glucose [Mass/Vol] 110 mg/dL High 74-106 [facility] Comment on above: Result Comment: Fast ing Glucose result from 100 to 125 mg/dLsuggests IMPAIRED HOMEOSTASIS per A.D.A. criteria. Performed By: #### L 500.2500, L100.0100 ####[facility] [address] [place], [address] Potassium [Moles/Vol] 3.8 mmol/L Normal 3.5-5.1 [facility] Comment on above: Performed By: #### L 500.2500, L100.0100 ####[facility] [address] [place], [address] Sodium [Moles/Vol] 141 mmol/L Normal 136-145 [facility] Comment on above: Performed By: #### L 500.2500, L100.0100 ####[facility] [address] [place], [address] Urea nitrogen [Mass/Vol] 11 mg/dL Normal 7-18 [facility] Comment on above: Performed By: #### L 500.2500, L100.0100 ####[facility] [address] [place], [address] Basophil percentageOrdered B y: Marielena Roberts on 07-29-2024 Basophils/100 WBC (Bld) 0.2 % 0-1 [facility] Bedside Glucoseon 07-29-2024 FINGERSTICK GLU 130 mg/dL High 74-106 [facility] Comment on above: Result Comment: SHARON LUTHER OF PATIENT CARE PER NURSING PROTOCOL Performed By: #### L 501.080 ####[facility] [address] [place], [address] FINGERSTICK GLU 94 mg/dL Normal 74-106 [facility] Comment on above: Result Comment: SHARON LUTHER OF PATIENT CARE PER NURSING PROTOCOL Performed By: #### L 501.080 ####[facility] [address] [place], [address] Blood urea nitrogen (BUN)/cr eatinine ratioOrdered By: Marielena Roberts on 07-29-2024 Urea nitrogen/Creatinine [Mass ratio] 11.7 mg/mg - [facility] CBC W/Diff, Automatedon 07-02 Absolute Lymph 2.57 X10 3/uL Normal 0.83-4.51 [facility] Comment on above: Performed By: #### L 500.2500, L100.0100 ####[facility] [address] [place], [address] Absolute Neut 6.6 X10 3/uL Normal 2.0-7.7 [facility] Comment on above: Performed By: #### L 500.2500, L100.0100 ####[facility] [address] [place], [address] Basophils/100 WBC (Bld) 0.2 % Normal 0-1 [facility] Comment on above: Performed By: #### L 500.2500, L100.0100 ####[facility] [address] [place], [address] Eosinophils/100 WBC (Bld) 1.6 % Normal 0-5 [facility] Comment on above: Performed By: #### L 500.2500, L100.0100 ####[facility] [address] [place], [address] Erythrocyte distribution width (RBC) [Ratio] 15.1 % High 11.6-14.6 [facility] Comment on above: Performed By: #### L 500.2500, L100.0100 ####[facility] [address] [place], [address] Hematocrit (Bld) [Volume fraction] 30.4 % Low 37-47 [facility] Comment on above: Performed By: #### L 500.2500, L100.0100 ####[facility] [address] [place], [address] Hemoglobin (Bld) [Mass/Vol] 10.1 g/dL Low 12.0-15.0 [facility] Comment on above: Performed By: #### L 500.2500, L100.0100 ####[facility] [address] [place], [address] IG% 0.400 Normal 0.0-0.9 [facility] Comment on above: Result Comment: IG% - Immature Granulocytes (promyelocytes, myelocytes andmetamyelocytes) > 1% indicates that a LEFT SHIFT is Present. Performed By: #### L 500.2500, L100.0100 ####[facility] [address] [place], [address] Lymphocytes/100 WBC (Bld) 26.3 % Normal 19-41 [facility] Comment on above: Performed By: #### L 500.2500, L100.0100 ####[facility] [address] [place], [address] MCH (RBC) [Entitic mass] 26.9 pg Low 27.0-32.0 [facility] Comment on above: Performed By: #### L 500.2500, L100.0100 ####[facility] [address] [place], [address] MCHC (RBC) [Mass/Vol] 33.2 g/dL Normal 32-36 [facility] Comment on above: Performed By: #### L 500.2500, L100.0100 ####[facility] [address] [place], [address] MCV (RBC) [Entitic vol] 81.1 fL Normal 81-99 [facility] Comment on above: Performed By: #### L 500.2500, L100.0100 ####[facility] [address] [place], [address] Monocytes/100 WBC (Bld) 4.0 % Normal 0-10 [facility] Comment on above: Performed By: #### L 500.2500, L100.0100 ####[facility] [address] [place], [address] Neutrophils/100 WBC (Bld) 67.5 % Normal 47-70 [facility] Comment on above: Performed By: #### L 500.2500, L100.0100 ####[facility] [address] [place], [address] Nucleated RBC (Bld) [#/Vol] 0 10*3/uL Normal 0-5 [facility] Comment on above: Performed By: #### L 500.2500, L100.0100 ####[facility] [address] [place], [address] Platelet mean volume (Bld) [Entitic vol] 9.1 fL Normal 6.2-12.0 [facility] Comment on above: Performed By: #### L 500.2500, L100.0100 ####[facility] [address] [place], [address] Platelets (Bld) [#/Vol] 218 10*3/uL Normal 150-450 [facility] Comment on above: Performed By: #### L 500.2500, L100.0100 ####[facility] [address] [place], [address] RBC (Bld) [#/Vol] 3.75 10*6/uL Low 4.2-5.4 [facility] Comment on above: Performed By: #### L 500.2500, L100.0100 ####[facility] [address] [place], [address] RDW SD 43.9 fl Normal 35.1-43.9 [facility] Comment on above: Performed By: #### L 500.2500, L100.0100 ####[facility] [address] [place], [address] WBC (Bld) [#/Vol] 9.8 10*3/uL Normal 4.4-11.0 [facility] Comment on above: Performed By: #### L 500.2500, L100.0100 ####[facility] [address] [place], [address] Carbon dioxide measurementOr dered By: Marielena Roberts on 07-29-2024 CO2 [Moles/Vol] 25.0 mmol/L 21.0-32.0 [facility] Chloride measurementOrdered By: Marielena Roberts on 07-29-2024 Chloride [Moles/Vol] 107 mmol/L 98-107 [facility] Eosinophil percentageOrdered By: Marielena Roberts on 07-29-2024 Eosinophils/100 WBC (Bld) 1.6 % 0-5 [facility] Erythrocyte distribution wid th ratioOrdered By: Marielena Roberts on 07-29-2024 Erythrocyte distribution width (RBC) [Ratio] 15.1 % High 11.6-14.6 [facility] Erythrocyte distribution wid th standard deviationOrdered By: Marielena Roberts on 07-29-2024 Erythrocyte distribution width (RBC) [Entitic vol] 43.9 fL 35.1-43.9 [facility] Erythrocyte distribution width (RBC) [Ratio] 43.9 fl 35.1-43.9 [facility] Estimated glomerular filtrat ion rate (GFR) AmericanOrdered By: Marielena Roberts on 07-29-2024 Estimated GFR (MDRD) Amer 76 mL/min >60 [facility] Comment on above: GFR Calc Estimation of creatinine chi aranceOrdered By: Marielena Roberts on 07-29-2024 Estimated Creatinine Clearance Calc 46.56 ml/min [facility] Glomerular filtration rate ( GFR) estimationOrdered By: Marielena Roberts on 07-29-2024 Estimated GFR (MDRD) Non-Af Amer 63 mL/min >60 [facility] Comment on above: Non- GFR Calc GFR/1.73 sq M.predicted among non-blacks MDRD (S/P/Bld) [Vol rate/Area] 63 mL/min/{1.73_m2} >60 [facility] Comment on above: Non- GFR Calc Glucose measurementOrdered B y: Marielena Roberts on 07-29-2024 Glucose [Mass/Vol] 110 mg/dL [address] Comment on above: Fasting Glucose resu lt from 100 to 125 mg/dL suggests IMPAIRED HOMEOSTASIS per A.D.A. criteria. [facility] de[facility]dered By: Marielena Roberts on 07-29-2024 Bedside Glucose (Misc Panel) 130 mg/dL [address] Comment on above: MANAGEMENT OF PATIEN T CARE PER NURSING PROTOCOL Glucose [Mass/Vol] 130 mg/dL [address] Comment on above: MANAGEMENT OF PATIEN T CARE PER NURSING PROTOCOL Hematocrit Auto (Bld) [Volum e fraction]Ordered By: Marielena Roberts on 07-29-2024 Hematocrit (Bld) [Volume fraction] 30.4 % Low 37-47 [facility] Hemoglobin measurementOrdere d By: Marielena Roberts on 07-29-2024 Hemoglobin (Bld) [Mass/Vol] 10.1 g/dL Low 12.0-15.0 [facility] Immature granulocytes/100 WB C Auto (Bld)Ordered By: Marielena Roberts on 07-29-2024 Immature granulocytes/100 WBC (Bld) 0.400 % 0.0-0.9 [facility] Comment on above: IG% - Immature Granu locytes (promyelocytes, myelocytes and metamyelocytes) > 1% indicates that a LEFT SHIFT is Present. Lymphocytes Auto (Unsp spec) [#/Vol]Ordered By: Marielena Roberts on 07-29-2024 Lymphocytes (Bld) [#/Vol] 2.57 10*3/uL 0.83-4.51 [facility] Lymphocytes/100 WBC Auto (Un sp spec)Ordered By: Marielena Roberts on 07-29-2024 Lymphocytes/100 WBC (Bld) 26.3 % 19-41 [facility] MCV (mean corpuscular volume ) determinationOrdered By: Marielena Roberts on 07-29-2024 MCV (RBC) [Entitic vol] 81.1 fL 81-99 [facility] Mean corpuscular hemoglobin (MCH) determinationOrdered By: Marielena Roberts on 07-29-2024 MCH (RBC) [Entitic mass] 26.9 pg Low 27.0-32.0 [facility] Mean corpuscular hemoglobin concentration (MCHC) determinationOrdered By: Marielena Roberts on 07-29-2024 MCHC (RBC) [Mass/Vol] 33.2 g/dL 32-36 [facility] Comment on above: Delta: 31.6 on 07/28 Mean platelet volume determi nationOrdered By: Marielena Roberts on 07-29-2024 Platelet mean volume (Bld) [Entitic vol] 9.1 fL 6.2-12.0 [facility] Monocyte percentageOrdered B y: Marielena Roberts on 07-29-2024 Monocytes/100 WBC (Bld) 4.0 % 0-10 [facility] Neutrophil percentageOrdered By: Marielena Roberts on 07-29-2024 Neutrophils/100 WBC (Bld) 67.5 % 47-70 [facility] Nucleated red blood cell per centageOrdered By: Marielena Roberts on 07-29-2024 Nucleated RBC/100 WBC (Bld) [Ratio] 0 % 0-5 [facility] Platelet countOrdered By: Emi Roberts on 07-29-2024 Platelets (Bld) [#/Vol] 218 10*3/uL 150-450 [facility] Potassium measurementOrdered By: Marielena Roberts on 07-29-2024 Potassium [Moles/Vol] 3.8 mmol/L 3.5-5.1 [facility] RBC Auto (Bld) [#/Vol]Ordere d By: Marielena Roberts on 07-29-2024 RBC (Bld) [#/Vol] 3.75 10*6/uL Low 4.2-5.4 [facility] Serum anion gap measurementO rdered By: Marielena Roberts on 07-29-2024 Anion gap [Moles/Vol] 8 mmol/L 5-15 [facility] Serum or plasma calcium nya urement (mass/volume)Ordered By: Marielena Roberts on 07-29-2024 Calcium [Mass/Vol] 9.1 mg/dL 8.5-10.1 [facility] Serum or plasma creatinine m easurement (mass/volume)Ordered By: Marielena Roberts on 07-29-2024 Creatinine [Mass/Vol] 0.94 mg/dL 0.55-1.02 [facility] Comment on above: The validity of the calculated GFR & GFRAA in patients over 70 years has not been determined. Clinical correlation is essential. Serum or plasma urea nitroge n measurement (mass/volume)Ordered By: Marielena Roberts on 07-29-2024 Urea nitrogen [Mass/Vol] 11 mg/dL 7-18 [facility] Sodium levelOrdered By: Inessa Roberts on 07-29-2024 Sodium [Moles/Vol] 141 mmol/L 136-145 [facility] White blood cell (WBC) count Ordered By: Marielena Roberts on 07-29-2024 WBC (Bld) [#/Vol] 9.8 10*3/uL 4.4-11.0 [facility] Activated partial thrombopla stin time (aPTT) in platelet poor plasma by coagulation aOrdered By: Wolf Matias on 07-28-2024 aPTT Coag (PPP) [Time] 29.0 s 24.1-36.2 [facility] Basic Metabolic Profile (BMP )on 07-28-2024 BUN/CRE 14.7 RATIO Normal 10-20 [facility] Comment on above: Performed By: #### L 501.9985, L300.3900, L100.0100, L500.2500, L300.4310 ####[facility] [address] [place], [address] CA,Total 9.0 mg/dL Normal 8.5-10.1 [facility] Comment on above: Performed By: #### L 501.9985, L300.3900, L100.0100, L500.2500, L300.4310 ####[facility] [address] [place], [address] Chloride [Moles/Vol] 110 mmol/L High 98-107 [facility] Comment on above: Performed By: #### L 501.9985, L300.3900, L100.0100, L500.2500, L300.4310 ####[facility] [address] [place], [address] CO2 [Moles/Vol] 24.0 mmol/L Normal 21.0-32.0 [facility] Comment on above: Performed By: #### L 501.9985, L300.3900, L100.0100, L500.2500, L300.4310 ####[facility] [address] [place], [address] Creatinine [Mass/Vol] 1.02 mg/dL Normal 0.55-1.02 [facility] Comment on above: Result Comment: The validity of the calculated GFR GFRAA in patients over70 years has not been determined. Clinical correlation isessential. Performed By: #### L 501.9985, L300.3900, L100.0100, L500.2500, L300.4310 ####[facility] [address] [place], [address] ECRCL 46.88 ml/min Normal [facility] Comment on above: Performed By: #### L 501.9985, L300.3900, L100.0100, L500.2500, L300.4310 ####[facility] [address] [place], [address] EST GFR - AA 70 mL/min Normal >60 [facility] Comment on above: Result Comment: Afri can Beninese GFR Calc Performed By: #### L 501.9985, L300.3900, L100.0100, L500.2500, L300.4310 ####[facility] [address] [place], [address] GAP 7 Normal 5-15 [facility] Comment on above: Performed By: #### L 501.9985, L300.3900, L100.0100, L500.2500, L300.4310 ####[facility] [address] [place], [address] GFR/1.73 sq M.predicted among non-blacks MDRD (S/P/Bld) [Vol rate/Area] 58 mL/min/{1.73_m2} Low >60 [facility] Comment on above: Result Comment: Non- GFR Calc Performed By: #### L 501.9985, L300.3900, L100.0100, L500.2500, L300.4310 ####[facility] [address] [place], [address] Glucose [Mass/Vol] 139 mg/dL High 74-106 [facility] Comment on above: Result Comment: Fast ing Glucose result greater than or equal to 126 mg/dLsuggests DIABETES MELLITUS per A.D.A. criteria. Performed By: #### L 501.9985, L300.3900, L100.0100, L500.2500, L300.4310 ####[facility] [address] [place], [address] Potassium [Moles/Vol] 4.1 mmol/L Normal 3.5-5.1 [facility] Comment on above: Performed By: #### L 501.9985, L300.3900, L100.0100, L500.2500, L300.4310 ####[facility] [address] [place], [address] Sodium [Moles/Vol] 142 mmol/L Normal 136-145 [facility] Comment on above: Performed By: #### L 501.9985, L300.3900, L100.0100, L500.2500, L300.4310 ####[facility] [address] [place], [address] Urea nitrogen [Mass/Vol] 15 mg/dL Normal 7-18 [facility] Comment on above: Performed By: #### L 501.9985, L300.3900, L100.0100, L500.2500, L300.4310 ####[facility] [address] [place], [address] Bedside Glucoseon 07-28-2024 FINGERSTICK GLU 174 mg/dL High 74-106 [facility] Comment on above: Result Comment: SHARON GEMENT OF PATIENT CARE PER NURSING PROTOCOL Performed By: #### L 501.080 ####[facility] [address] [place], [address] FINGERSTICK GLU 116 mg/dL High 74-106 [facility] Comment on above: Result Comment: SHARON GEMENT OF PATIENT CARE PER NURSING PROTOCOL Performed By: #### L 501.080 ####[facility] [address] [place], [address] FINGERSTICK GLU 129 mg/dL High 74-106 [facility] Comment on above: Result Comment: SHARON GEMENT OF PATIENT CARE PER NURSING PROTOCOL Performed By: #### L 501.080 ####[facility] [address] [place], [address] FINGERSTICK GLU 133 mg/dL High 74-106 [facility] Comment on above: Result Comment: SHARON GEMENT OF PATIENT CARE PER NURSING PROTOCOL Performed By: #### L 501.080 ####[facility] [address] [place], [address] CBC W/Diff, Automatedon -2 Absolute Lymph 2.43 X10 3/uL Normal 0.83-4.51 [facility] Comment on above: Performed By: #### L 501.9985, L300.3900, L100.0100, L500.2500, L300.4310 ####[facility] [address] [place], [address] Absolute Neut 4.3 X10 3/uL Normal 2.0-7.7 [facility] Comment on above: Performed By: #### L 501.9985, L300.3900, L100.0100, L500.2500, L300.4310 ####[facility] [address] [place], [address] Basophils/100 WBC (Bld) 0.4 % Normal 0-1 [facility] Comment on above: Performed By: #### L 501.9985, L300.3900, L100.0100, L500.2500, L300.4310 ####[facility] [address] [place], [address] Eosinophils/100 WBC (Bld) 1.5 % Normal 0-5 [facility] Comment on above: Performed By: #### L 501.9985, L300.3900, L100.0100, L500.2500, L300.4310 ####[facility] [address] [place], [address] Erythrocyte distribution width (RBC) [Ratio] 15.8 % High 11.6-14.6 [facility] Comment on above: Performed By: #### L 501.9985, L300.3900, L100.0100, L500.2500, L300.4310 ####[facility] [address] [place], [address] Hematocrit (Bld) [Volume fraction] 30.4 % Low 37-47 [facility] Comment on above: Performed By: #### L 501.9985, L300.3900, L100.0100, L500.2500, L300.4310 ####[facility] [address] [place], [address] Hemoglobin (Bld) [Mass/Vol] 9.6 g/dL Low 12.0-15.0 [facility] Comment on above: Performed By: #### L 501.9985, L300.3900, L100.0100, L500.2500, L300.4310 ####[facility] [address] [place], [address] IG% 0.100 Normal 0.0-0.9 [facility] Comment on above: Result Comment: IG% - Immature Granulocytes (promyelocytes, myelocytes andmetamyelocytes) > 1% indicates that a LEFT SHIFT is Present. Performed By: #### L 501.9985, L300.3900, L100.0100, L500.2500, L300.4310 ####[facility] [address] [place], [address] Lymphocytes/100 WBC (Bld) 33.5 % Normal 19-41 [facility] Comment on above: Performed By: #### L 501.9985, L300.3900, L100.0100, L500.2500, L300.4310 ####[facility] [address] [place], [address] MCH (RBC) [Entitic mass] 26.4 pg Low 27.0-32.0 [facility] Comment on above: Performed By: #### L 501.9985, L300.3900, L100.0100, L500.2500, L300.4310 ####[facility] [address] [place], [address] MCHC (RBC) [Mass/Vol] 31.6 g/dL Low 32-36 [facility] Comment on above: Performed By: #### L 501.9985, L300.3900, L100.0100, L500.2500, L300.4310 ####[facility] [address] [place], [address] MCV (RBC) [Entitic vol] 83.7 fL Normal 81-99 [facility] Comment on above: Performed By: #### L 501.9985, L300.3900, L100.0100, L500.2500, L300.4310 ####[facility] [address] [place], [address] Monocytes/100 WBC (Bld) 5.2 % Normal 0-10 [facility] Comment on above: Performed By: #### L 501.9985, L300.3900, L100.0100, L500.2500, L300.4310 ####[facility] [address] [place], [address] Neutrophils/100 WBC (Bld) 59.3 % Normal 47-70 [facility] Comment on above: Performed By: #### L 501.9985, L300.3900, L100.0100, L500.2500, L300.4310 ####[facility] [address] [place], [address] Nucleated RBC (Bld) [#/Vol] 0 10*3/uL Normal 0-5 [facility] Comment on above: Performed By: #### L 501.9985, L300.3900, L100.0100, L500.2500, L300.4310 ####[facility] [address] [place], [address] Platelet mean volume (Bld) [Entitic vol] 9.4 fL Normal 6.2-12.0 [facility] Comment on above: Performed By: #### L 501.9985, L300.3900, L100.0100, L500.2500, L300.4310 ####[facility] [address] [place], [address] Platelets (Bld) [#/Vol] 214 10*3/uL Normal 150-450 [facility] Comment on above: Performed By: #### L 501.9985, L300.3900, L100.0100, L500.2500, L300.4310 ####[facility] [address] [place], [address] RBC (Bld) [#/Vol] 3.63 10*6/uL Low 4.2-5.4 [facility] Comment on above: Performed By: #### L 501.9985, L300.3900, L100.0100, L500.2500, L300.4310 ####[facility] [address] [place], [address] RDW SD 48.3 fl High 35.1-43.9 [facility] Comment on above: Performed By: #### L 501.9985, L300.3900, L100.0100, L500.2500, L300.4310 ####[facility] [address] [place], [address] WBC (Bld) [#/Vol] 7.3 10*3/uL Normal 4.4-11.0 [facility] Comment on above: Performed By: #### L 501.9985, L300.3900, L100.0100, L500.2500, L300.4310 ####[facility] [address] [place], [address] Colonoscopy Reporton 025 Colonoscopy Report Normal [facility] EGD Reporton 07-28-2024 EGD Report Normal [facility] Hemoglobin A1con 07-28-2024 HbA1c (Bld) [Mass fraction] 5.7 % High 3.8-5.6 [facility] Comment on above: Result Comment: Norm al < 5.7 % Prediabetic 5.7 - 6.4 % Diabetic >or= 6.5 % Please note range changes. Performed By: #### L 501.9985, L300.3900, L100.0100, L500.2500, L300.4310 ####[facility] [address] [place], [address] Hemoglobin A1c percentageOrd ered By: Wolf Matias on 07-28-2024 HbA1c (Bld) [Mass fraction] 5.7 % High 3.8-5.6 [facility] Comment on above: Normal < 5.7 % Predi abetic 5.7 - 6.4 % Diabetic >or= 6.5 % Please note range changes. International normalized rat io (INR) calculationOrdered By: Wolf Matias on 07-28-2024 INR Coag (Bld) [Relative time] 1.1 {INR} [facility] MR/PN.GIon 07-28-2024 MR/PN.GI Normal [facility] MR/POSTOP.ANEon 07-28-2024 MR/POSTOP.ANE Normal [facility] MR/QUQIHGSA7ue 07-28-2024 MR/POSTOPAN2 Normal [facility] Partial Thromboplast Timeon 07-28-2024 aPTT Coag (Bld) [Time] 29.0 s Normal 24.1-36.2 [facility] Comment on above: Performed By: #### L 501.9985, L300.3900, L100.0100, L500.2500, L300.4310 ####[facility] [address] [place], [address] Prothrombin Time w/INRon INR Coag (PPP) [Relative time] 1.1 {INR} Normal [facility] Comment on above: Performed By: #### L 501.9985, L300.3900, L100.0100, L500.2500, L300.4310 ####[facility] [address] [place], [address] PT Coag (PPP) [Time] 14.1 s Normal 11.7-14.9 [facility] Comment on above: Performed By: #### L 501.9985, L300.3900, L100.0100, L500.2500, L300.4310 ####[facility] [address] [place], [address] Prothrombin timeOrdered By: Wolf Matias on 07-28-2024 PT Coag (PPP) [Time] 14.1 s 11.7-14.9 [facility] aPTT Coag (PPP) [Time]Ordere d By: Wolf Matias on 07-28-2024 aPTT Coag (Bld) [Time] 29.0 s 24.1-36.2 [facility] Albumin to globulin ratioOrd ered By: Mai Pérez on 07-27-2024 Albumin/Globulin [Mass ratio] 0.9 {ratio} Normal 0.9-2.4 [facility] Comment on above: Order Comment: DELAY ED, PT.RECEIVING BLOOD; OKAY TO DRAW WITH CBCD SILVANO GUZMAN Performed By: #### L 500.4050 ####[facility] [address] [place], [address] Bedside Glucoseon 07-27-2024 FINGERSTICK GLU 149 mg/dL High 74-106 [facility] Comment on above: Result Comment: SHARON GEMENT OF PATIENT CARE PER NURSING PROTOCOL Performed By: #### L 501.080 ####[facility] [address] [place], [address] FINGERSTICK GLU 118 mg/dL High 74-106 [facility] Comment on above: Result Comment: SHARON GEMENT OF PATIENT CARE PER NURSING PROTOCOL Performed By: #### L 501.080 ####[facility] [address] [place], [address] FINGERSTICK GLU 140 mg/dL High 74-106 [facility] Comment on above: Result Comment: SHARON GEMENT OF PATIENT CARE PER NURSING PROTOCOL Performed By: #### L 501.080 ####[facility] [address] [place], [address] FINGERSTICK GLU 93 mg/dL Normal 74-106 [facility] Comment on above: Result Comment: SHARON LUTHER OF PATIENT CARE PER NURSING PROTOCOL Performed By: #### L 501.080 ####[facility] [address] [place], [address] Bilirubin, totalOrdered By: Mai Pérez on 07-27-2024 Bilirubin [Mass/Vol] 0.80 mg/dL Normal 0.20-1.00 [facility] Comment on above: For patients on eltr ombopag therapy, use of [employer] [place] TBIL is not recommended. Order Comment: DELAY ED, PT.RECEIVING BLOOD; OKAY TO DRAW WITH CBCD SILVANO GUZMAN Result Comment: For patients on eltrombopag therapy, use of [employer] [place] TBIL is not recommended. Performed By: #### L 500.4050 ####[facility] [address] [place], [address] CBC W/Diff, Automatedon 07-02 Absolute Lymph 3.08 X10 3/uL Normal 0.83-4.51 [facility] Comment on above: Order Comment: DELAY ED, PT.RECEIVING BLOOD Performed By: #### L 100.0100 ####[facility] [address] [place], [address] Absolute Neut 4.2 X10 3/uL Normal 2.0-7.7 [facility] Comment on above: Order Comment: DELAY ED, PT.RECEIVING BLOOD Performed By: #### L 100.0100 ####[facility] [address] [place], [address] Basophils/100 WBC (Bld) 0.3 % Normal 0-1 [facility] Comment on above: Order Comment: DELAY ED, PT.RECEIVING BLOOD Performed By: #### L 100.0100 ####[facility] [address] [place], [address] Eosinophils/100 WBC (Bld) 1.3 % Normal 0-5 [facility] Comment on above: Order Comment: DELAY ED, PT.RECEIVING BLOOD Performed By: #### L 100.0100 ####[facility] [address] [place], [address] Erythrocyte distribution width (RBC) [Ratio] 15.4 % High 11.6-14.6 [facility] Comment on above: Order Comment: DELAY ED, PT.RECEIVING BLOOD Performed By: #### L 100.0100 ####[facility] [address] [place], [address] Hematocrit (Bld) [Volume fraction] 28.5 % Low 37-47 [facility] Comment on above: Order Comment: DELAY ED, PT.RECEIVING BLOOD Performed By: #### L 100.0100 ####[facility] [address] [place], [address] Hemoglobin (Bld) [Mass/Vol] 9.5 g/dL Low 12.0-15.0 [facility] Comment on above: Order Comment: DELAY ED, PT.RECEIVING BLOOD Performed By: #### L 100.0100 ####[facility] [address] [place], [address] IG% 0.300 Normal 0.0-0.9 [facility] Comment on above: Order Comment: DELAY ED, PT.RECEIVING BLOOD Result Comment: IG% - Immature Granulocytes (promyelocytes, myelocytes andmetamyelocytes) > 1% indicates that a LEFT SHIFT is Present. Performed By: #### L 100.0100 ####[facility] [address] [place], [address] Lymphocytes/100 WBC (Bld) 39.6 % Normal 19-41 [facility] Comment on above: Order Comment: DELAY ED, PT.RECEIVING BLOOD Performed By: #### L 100.0100 ####[facility] [address] [place], [address] MCH (RBC) [Entitic mass] 27.3 pg Normal 27.0-32.0 [facility] Comment on above: Order Comment: DELAY ED, PT.RECEIVING BLOOD Performed By: #### L 100.0100 ####[facility] [address] [place], [address] MCHC (RBC) [Mass/Vol] 33.3 g/dL Normal 32-36 [facility] Comment on above: Order Comment: DELAY ED, PT.RECEIVING BLOOD Performed By: #### L 100.0100 ####[facility] [address] [place], [address] MCV (RBC) [Entitic vol] 81.9 fL Normal 81-99 [facility] Comment on above: Order Comment: DELAY ED, PT.RECEIVING BLOOD Performed By: #### L 100.0100 ####[facility] [address] [place], [address] Monocytes/100 WBC (Bld) 4.8 % Normal 0-10 [facility] Comment on above: Order Comment: DELAY ED, PT.RECEIVING BLOOD Performed By: #### L 100.0100 ####[facility] [address] [place], [address] Neutrophils/100 WBC (Bld) 53.7 % Normal 47-70 [facility] Comment on above: Order Comment: DELAY ED, PT.RECEIVING BLOOD Performed By: #### L 100.0100 ####[facility] [address] [place], [address] Nucleated RBC (Bld) [#/Vol] 0 10*3/uL Normal 0-5 [facility] Comment on above: Order Comment: DELAY ED, PT.RECEIVING BLOOD Performed By: #### L 100.0100 ####[facility] [address] [place], [address] Platelet mean volume (Bld) [Entitic vol] 9.1 fL Normal 6.2-12.0 [facility] Comment on above: Order Comment: DELAY ED, PT.RECEIVING BLOOD Performed By: #### L 100.0100 ####[facility] [address] [place], [address] Platelets (Bld) [#/Vol] 192 10*3/uL Normal 150-450 [facility] Comment on above: Order Comment: DELAY ED, PT.RECEIVING BLOOD Performed By: #### L 100.0100 ####[facility] [address] [place], [address] RBC (Bld) [#/Vol] 3.48 10*6/uL Low 4.2-5.4 [facility] Comment on above: Order Comment: DELAY ED, PT.RECEIVING BLOOD Performed By: #### L 100.0100 ####[facility] [address] [place], [address] RDW SD 45.1 fl High 35.1-43.9 [facility] Comment on above: Order Comment: DELAY ED, PT.RECEIVING BLOOD Performed By: #### L 100.0100 ####[facility] [address] [place], [address] WBC (Bld) [#/Vol] 7.8 10*3/uL Normal 4.4-11.0 [facility] Comment on above: Order Comment: DELAY ED, PT.RECEIVING BLOOD Performed By: #### L 100.0100 ####[facility] [address] [place], [address] Comprehensive Metabolic Prof ilon 07-27-2024 ALK P 73 U/L Normal 45-117 [facility] Comment on above: Order Comment: DELAY ED, PT.RECEIVING BLOOD; OKAY TO DRAW WITH CBCD SILVANO GUZMAN Performed By: #### L 500.405 ####[facility] [address] [place], [address] BUN/CRE 22.4 RATIO High 10-20 [facility] Comment on above: Order Comment: DELAY ED, PT.RECEIVING BLOOD; OKAY TO DRAW WITH CBCD PERCHARGE THOMAS Performed By: #### L 500.4050 ####[facility] [address] [place], [address] CA,Total 8.7 mg/dL Normal 8.5-10.1 [facility] Comment on above: Order Comment: DELAY ED, PT.RECEIVING BLOOD; OKAY TO DRAW WITH CBCD PERCHARGE THOMAS Performed By: #### L 500.4050 ####[facility] [address] [place], [address] Chloride [Moles/Vol] 108 mmol/L High 98-107 [facility] Comment on above: Order Comment: DELAY ED, PT.RECEIVING BLOOD; OKAY TO DRAW WITH CBCD PERCHARGE THOMAS Performed By: #### L 500.4050 ####[facility] [address] [place], [address] CO2 [Moles/Vol] 26.0 mmol/L Normal 21.0-32.0 [facility] Comment on above: Order Comment: DELAY ED, PT.RECEIVING BLOOD; OKAY TO DRAW WITH CBCD PERCHARGE THOMAS Performed By: #### L 500.4050 ####[facility] [address] [place], [address] Creatinine [Mass/Vol] 0.89 mg/dL Normal 0.55-1.02 [facility] Comment on above: Order Comment: DELAY ED, PT.RECEIVING BLOOD; OKAY TO DRAW WITH CBCD PERCHARGE THOMAS Result Comment: The validity of the calculated GFR GFRAA in patients over70 years has not been determined. Clinical correlation isessential. Performed By: #### L 500.4050 ####[facility] [address] [place], [address] ECRCL 56.83 ml/min Normal [facility] Comment on above: Order Comment: DELAY ED, PT.RECEIVING BLOOD; OKAY TO DRAW WITH CBCD PERCHARGE THOMAS Performed By: #### L 500.4050 ####[facility] [address] [place], [address] EST GFR - AA 81 mL/min Normal >60 [facility] Comment on above: Order Comment: DELAY ED, PT.RECEIVING BLOOD; OKAY TO DRAW WITH CBCD PERCHARGE THOMAS Result Comment: Afri can Beninese GFR Calc Performed By: #### L 500.4050 ####[facility] [address] [place], [address] GAP 5 Normal 5-15 [facility] Comment on above: Order Comment: DELAY ED, PT.RECEIVING BLOOD; OKAY TO DRAW WITH CBCD PERCHARGE THOMAS Performed By: #### L 500.4050 ####[facility] [address] [place], [place], [address] GFR/1.73 sq M.predicted among non-blacks MDRD (S/P/Bld) [Vol rate/Area] 67 mL/min/{1.73_m2} Normal >60 [facility] Comment on above: Order Comment: DELAY ED, PT.RECEIVING BLOOD; OKAY TO DRAW WITH CBCD PERCHARGE THOMAS Result Comment: Non- GFR Calc Performed By: #### L 500.4050 ####[facility] [address] [place], [address] Glucose [Mass/Vol] 123 mg/dL High 74-106 [facility] Comment on above: Order Comment: DELAY ED, PT.RECEIVING BLOOD; OKAY TO DRAW WITH CBCD PERCHARGE THOMAS Result Comment: Fast ing Glucose result from 100 to 125 mg/dLsuggests IMPAIRED HOMEOSTASIS per A.D.A. criteria. Performed By: #### L 500.4050 ####[facility] [address] [place], [address] Potassium [Moles/Vol] 3.8 mmol/L Normal 3.5-5.1 [facility] Comment on above: Order Comment: DELAY ED, PT.RECEIVING BLOOD; OKAY TO DRAW WITH CBCD PERCHARGE THOMAS Performed By: #### L 500.4050 ####[facility] [address] [place], [address] Sodium [Moles/Vol] 139 mmol/L Normal 136-145 [facility] Comment on above: Order Comment: DELAY ED, PT.RECEIVING BLOOD; OKAY TO DRAW WITH CBCD PERCHARGE THOMAS Performed By: #### L 500.4050 ####[facility] [address] [place], [address] T PROT 6.5 g/dL Normal 6.4-8.2 [facility] Comment on above: Order Comment: DELAY ED, PT.RECEIVING BLOOD; OKAY TO DRAW WITH CBCD PERCHARGE THOMAS Performed By: #### L 500.4050 ####[facility] [address] [place], [address] Urea nitrogen [Mass/Vol] 20 mg/dL High 7-18 [facility] Comment on above: Order Comment: DELAY ED, PT.RECEIVING BLOOD; OKAY TO DRAW WITH CBCD PERCHARGE THOMAS Performed By: #### L 500.4050 ####[facility] [address] [place], [address] Comprehensive Metabolic Prof ilOrdered By: Mai Pérez on 07-27-2024 AST [Catalytic activity/Vol] 8 U/L Low 15-37 [facility] Comment on above: Order Comment: DELAY ED, PT.RECEIVING BLOOD; OKAY TO DRAW WITH CBCD PERCHARGE THOMAS Performed By: #### L 500.4050 ####[facility] [address] [place], [address] HH, Hemoglobin AND Hematocri ton 07-27-2024 Hematocrit (Bld) [Volume fraction] 20.8 % Low 37-47 [facility] Comment on above: Performed By: #### L 100.0600 ####[facility] [address] [place], [place], [address] Hemoglobin (Bld) [Mass/Vol] 7.0 g/dL Low 12.0-15.0 [facility] Comment on above: Performed By: #### L 100.0600 ####[facility] [address] [place], [place], [address] L501.4020on 07-27-2024 TROPONIN-I HS < 3 Low 3.0-54.0 [facility] Comment on above: Order Comment: 'TROP ' Serial specimen #1, #2 or #3: 3 Result Comment: Plea se Note: New Test Units and Gender Specific Reference Ranges. For more information see Policy Stat Procedure [place] High Sensitivity Troponin (TNIH) and attachments. Performed By: #### L 501.4020 ####[facility] [address] [place], [place], [id number] MR/CON.PCM.GIon 07-27-2024 MR/CON.PCM.GI Normal [facility] Serum globulin measurementOr dered By: Mai Pérez on 07-27-2024 Globulin (S) [Mass/Vol] 3.5 g/dL Normal 2.2-4.2 [facility] Comment on above: Order Comment: DELAY ED, PT.RECEIVING BLOOD; OKAY TO DRAW WITH CBCD PERCHARGE THOMAS Performed By: #### L 500.4050 ####[facility] [address] [place], [place], [id number] Serum or plasma alanine adams otransferase (ALT) measurementOrdered By: Mai Pérez on 07-27-2024 ALT [Catalytic activity/Vol] 11 U/L Low 13-56 [facility] Comment on above: Order Comment: DELAY ED, PT.RECEIVING BLOOD; OKAY TO DRAW WITH CBCD PERCHARGE THOMAS Performed By: #### L 500.4050 ####[facility] [address] [place], [address](006) Serum or plasma albumin nya urement (mass/volume)Ordered By: Mai Pérez on 07-27-2024 Albumin [Mass/Vol] 3.0 g/dL Low 3.2-5.0 [facility] Comment on above: Order Comment: DELAY ED, PT.RECEIVING BLOOD; OKAY TO DRAW WITH CBCD SILVANO GUZMAN Performed By: #### L 500.4050 ####[facility] [address] [place], [place], [phone] Serum or plasma alkaline saleem sphatase measurementOrdered By: Mai Pérez on 07-27-2024 ALP [Catalytic activity/Vol] 73 U/L 45-117 [facility] Total proteinOrdered By: Linda Pérez on 07-27-2024 Protein [Mass/Vol] 6.5 g/dL 6.4-8.2 [facility] 12 Lead EKGon 07-26-2024 12 Lead EKG Normal [facility] BRCon 07-26-2024 RC Normal [facility] Comment on above: Result Comment: [id number] ON RC TRANSFUSED 07/27/24 [id number] ON RC TRANSFUSED 07/27/24 0502 Performed By: #### B ####[facility] [address] [place], [address] Bedside Glucoseon 07-26-2024 FINGERSTICK GLU 171 mg/dL High 74-106 [facility] Comment on above: Result Comment: SHARON GEMENT OF PATIENT CARE PER NURSING PROTOCOL Performed By: #### L 501.080 ####[facility] [address] [place], [address] FINGERSTICK GLU 213 mg/dL High 74-106 [facility] Comment on above: Result Comment: SHARON GEMENT OF PATIENT CARE PER NURSING PROTOCOL Performed By: #### L 501.080 ####[facility] [address] [place], [address] Blood manual differential co mment interpretation (narrative result)Ordered By: David Daniels on 07-26-2024 Manual differential comment Akhil (Bld) [Interp] SCANNED [facility] Comment on above: LYMPHOCYTOSIS NOTED Brain/Head without Contrasto n 07-26-2024 Brain/Head without Contrast Normal [facility] CBC W/Diff, Automatedon - SMEAR COMMENT SCANNED Normal [facility] Comment on above: Result Comment: LYMP HOCYTOSIS NOTED Performed By: #### L 500.4050, L100.0100 ####[facility] [address] [place], [address] Chest 1 View (Portable)on Chest 1 View (Portable) Normal [facility] Comprehensive Metabolic Prof ilon 07-26-2024 Albumin [Mass/Vol] 3.3 g/dL Normal 3.2-5.0 [facility] Comment on above: Performed By: #### L 500.4050, L100.0100 ####[facility] [address] [place], [address] Albumin/Globulin [Mass ratio] 0.9 {ratio} Normal 0.9-2.4 [facility] Comment on above: Performed By: #### L 500.4050, L100.0100 ####[facility] [address] [place], [address] ALK P 95 U/L Normal 45-117 [facility] Comment on above: Performed By: #### L 500.4050, L100.0100 ####[facility] [address] [place], [address] ALT [Catalytic activity/Vol] 13 U/L Normal 13-56 [facility] Comment on above: Performed By: #### L 500.4050, L100.0100 ####[facility] [address] [place], [address] AST [Catalytic activity/Vol] 11 U/L Low 15-37 [facility] Comment on above: Performed By: #### L 500.4050, L100.0100 ####[facility] [address] [place], [address] Bilirubin [Mass/Vol] 0.40 mg/dL Normal 0.20-1.00 [facility] Comment on above: Result Comment: For patients on eltrombopag therapy, use of Dimension [place] TBIL is not recommended. Performed By: #### L 500.4050, L100.0100 ####[facility] [address] [place], [address] BUN/CRE 23.6 RATIO High 10-20 [facility] Comment on above: Performed By: #### L 500.4050, L100.0100 ####[facility] [address] [place], [address] CA,Total 9.3 mg/dL Normal 8.5-10.1 [facility] Comment on above: Performed By: #### L 500.4050, L100.0100 ####[facility] [address] [place], [address] Chloride [Moles/Vol] 100 mmol/L Normal 98-107 [facility] Comment on above: Performed By: #### L 500.4050, L100.0100 ####[facility] [address] [place], [address] CO2 [Moles/Vol] 24.0 mmol/L Normal 21.0-32.0 [facility] Comment on above: Performed By: #### L 500.4050, L100.0100 ####[facility] [address] [place], [address] Creatinine [Mass/Vol] 1.44 mg/dL High 0.55-1.02 [facility] Comment on above: Result Comment: The validity of the calculated GFR GFRAA in patients over70 years has not been determined. Clinical correlation isessential. Performed By: #### L 500.4050, L100.0100 ####[facility] [address] [place], [address] ECRCL 33.06 ml/min Normal [facility] Comment on above: Performed By: #### L 500.4050, L100.0100 ####[facility] [address] [place], [address] EST GFR - AA 47 mL/min Low >60 [facility] Comment on above: Result Comment: Afri can Beninese GFR Calc Performed By: #### L 500.4050, L100.0100 ####[facility] [address] [place], [address] GAP 11 Normal 5-15 [facility] Comment on above: Performed By: #### L 500.4050, L100.0100 ####[facility] [address] [place], [address] GFR/1.73 sq M.predicted among non-blacks MDRD (S/P/Bld) [Vol rate/Area] 39 mL/min/{1.73_m2} Low >60 [facility] Comment on above: Result Comment: Non- GFR Calc Performed By: #### L 500.4050, L100.0100 ####[facility] [address] [place], [address] Globulin (S) [Mass/Vol] 3.8 g/dL Normal 2.2-4.2 [facility] Comment on above: Performed By: #### L 500.4050, L100.0100 ####[facility] [address] [place], [address] Glucose [Mass/Vol] 223 mg/dL High 74-106 [facility] Comment on above: Result Comment: Gluc ose result greater than or equal to 200 mg/dLsuggests DIABETES MELLITUS per A.D.A. criteria. Performed By: #### L 500.4050, L100.0100 ####[facility] [address] [place], [address] Potassium [Moles/Vol] 3.7 mmol/L Normal 3.5-5.1 [facility] Comment on above: Performed By: #### L 500.4050, L100.0100 ####[facility] [address] [place], [address] Sodium [Moles/Vol] 135 mmol/L Low 136-145 [facility] Comment on above: Performed By: #### L 500.4050, L100.0100 ####[facility] [address] [place], [address] T PROT 7.1 g/dL Normal 6.4-8.2 [facility] Comment on above: Performed By: #### L 500.4050, L100.0100 ####[facility] [address] [place], [address] Urea nitrogen [Mass/Vol] 34 mg/dL High 7-18 [facility] Comment on above: Performed By: #### L 500.4050, L100.0100 ####[facility] [address] [place], [address] Emergency Department Summary on 07-26-2024 Emergency Department Summary Normal [facility] Ferritinon 07-26-2024 Ferritin [Mass/Vol] 6 ng/mL Low 8-252 [facility] Comment on above: Order Comment: Comme nts: may add to ED labs Performed By: #### B TS, L503.6550, L501.5200, L503.6030 ####[facility] [address] [place], [address] Ferritin measurementOrdered By: Mai Pérez on 07-26-2024 Ferritin [Mass/Vol] 6 ng/mL Low 8-252 [facility] Foot min 3 Viewson 5 Foot min 3 Views Normal [facility] H AND P Exam - Hospitaliston 07-26-2024 H&P Exam - Hospitalist Normal [facility] Iron (Unsp spec) [Mass/Mass] Ordered By: Mai Pérez on 07-26-2024 Iron [Mass/Vol] 19 ug/dL Low 50-170 [facility] Iron measurement (mass/mass) Ordered By: Mai Pérez on 07-26-2024 Iron (Unsp spec) [Mass/Mass] 19 ug/dL Low 50-170 [facility] Iron saturation [Mass fracti on]Ordered By: Mai Pérez on 07-26-2024 Iron Saturation 4.9 % Low 15.0-55.0 [facility] Iron+Iron Binding Capacityon 07-26-2024 Iron [Mass/Vol] 19 ug/dL Low 50-170 [facility] Comment on above: Order Comment: Comme nts: may add to ED labs Performed By: #### B TS, L503.6550, L501.5200, L503.6030 ####[facility] [address] [place], [address] IRON SATURATION 4.9 Low 15.0-55.0 [facility] Comment on above: Order Comment: Comme nts: may add to ED labs Performed By: #### B TS, L503.6550, L501.5200, L503.6030 ####[facility] [address] [place], [address] TIBC 384 ug/dL Normal 250-450 [facility] Comment on above: Order Comment: Comme nts: may add to ED labs Performed By: #### B TS, L503.6550, L501.5200, L503.6030 ####[facility] [address] [place], [address] L501.4020on 07-26-2024 TROPONIN-I HS 3 pg/mL Normal 3.0-54.0 [facility] Comment on above: Result Comment: Patrizia starks Note: New Test Units and Gender Specific Reference Ranges. For more information see Policy Stat Procedure [place] High Sensitivity Troponin (TNIH) and attachments. Performed By: #### L 501.4020 ####[facility] [address] [place], [address] L501.5425on 07-26-2024 TROPONIN-I HS < 3 Low 3.0-54.0 [facility] Comment on above: Order Comment: 1Y Result Comment: Patrizia starks Note: New Test Units and Gender Specific Reference Ranges. For more information see Policy Stat Procedure [place] High Sensitivity Troponin (TNIH) and attachments. Performed By: #### L 501.7751 ####[facility] [address] [place], [address] Lower GI hemoglobin IA Ql (S tl)Ordered By: David Daniels on 07-26-2024 Stool Occult Blood (DILIP) [facility] Magnesiumon 07-26-2024 Magnesium [Mass/Vol] 1.7 mg/dL Normal 1.6-2.6 [facility] Comment on above: Order Comment: Comme nts: may add to ED labs Performed By: #### B TS, L503.6550, L501.5200, L503.6030 ####[facility] [address] [place], [place], [address] Magnesium measurementOrdered By: Mai Pérez on 07-26-2024 Magnesium [Mass/Vol] 1.7 mg/dL 1.6-2.6 [facility] Manual differential comment Akhil (Bld) [Interp]Ordered By: David Daniels on 07-26-2024 Differential Comment SCANNED [facility] Comment on above: LYMPHOCYTOSIS NOTED Partial Thromboplast Timeon 07-26-2024 aPTT Coag (Bld) [Time] 24.4 s Normal 24.1-36.2 [facility] Comment on above: Performed By: #### L 300.4310, L300.3900, M100.7900 ####[facility] [address] [place], [place], [address] Prothrombin Time w/INRon INR Coag (PPP) [Relative time] 1.0 {INR} Normal [facility] Comment on above: Performed By: #### L 300.4310, L300.3900, M100.7900 ####[facility] [address] [place], [address] PT Coag (PPP) [Time] 12.9 s Normal 11.7-14.9 [facility] Comment on above: Performed By: #### L 300.4310, L300.3900, M100.7900 ####[facility] [address] [place], [address] Serum or plasma iron saturat ion measurement (mass fraction)Ordered By: Mai Pérez on 07-26-2024 Iron saturation [Mass fraction] 4.9 % Low 15.0-55.0 [facility] Spine Cervical without Contr ason 07-26-2024 Spine Cervical without Contras Normal [facility] Stool Occult Blood iFOBon STOB Negative Normal [facility] Comment on above: Performed By: #### L 300.4310, L300.3900, M100.7900 ####[facility] [address] [place], [place], [address] Stool gastrointestinal hemog lobin detection by immunologic methodOrdered By: David Daniels on 07-26-2024 Lower GI hemoglobin IA Ql (Stl) [facility] TIBCOrdered By: Mai Pérez on 07-26-2024 Total Iron Binding Capacity 384 ug/dL 250-450 [facility] Troponin IOrdered By: Mai Pérez on 07-26-2024 Troponin I < 3 pg/mL Low 3.0-54.0 [facility] Comment on above: Please Note: [place] t Units and Gender Specific Reference Ranges. For more information see Policy Stat Procedure [place] High Sensitivity Troponin (TNIH) and attachments. Troponin I High Sensitivity < 3 pg/mL Low 3.0-54.0 [facility] Comment on above: Please Note: [place] t Units and Gender Specific Reference Ranges. For more information see Policy Stat Procedure [place] High Sensitivity Troponin (TNIH) and attachments. Type AND Screenon 07-26-2024 Ab SCREEN GEL Negative Normal [facility] Comment on above: Order Comment: A Performed By: #### B TS, L503.6550, L501.5200, L503.6039 ####[facility] [address] [place], [address] Endocrinology Visit Reporton 05-07-2024 Endocrinology Visit Report Normal [facility] Thin prep Papanicolaou smear with manual screeningOrdered By: Henri Kelly on 10-05-2023 Thin prep Papanicolaou smear with manual screening 122 mg/dL 74-106 [facility] Comment on above: MANAGEMENT OF PATIEN T CARE PER NURSING PROTOCOL Basophil percentageOrdered B y: Henri Kelly on 10-04-2023 Chloride [Moles/Vol] 107 mmol/L 98-107 [facility] Glucose [Mass/Vol] 111 mg/dL 74-106 [facility] Comment on above: Fasting Glucose resu lt from 100 to 125 mg/dL suggests IMPAIRED HOMEOSTASIS per A.D.A. criteria. Hemoglobin (Bld) [Mass/Vol] 10.7 g/dL 12.0-15.0 [facility] Potassium [Moles/Vol] 4.1 mmol/L 3.5-5.1 [facility] Sodium [Moles/Vol] 138 mmol/L 136-145 [facility] Hematocrit Auto (Bld) [Volum e fraction]Ordered By: Henri Kelly on 10-04-2023 Hematocrit (Bld) [Volume fraction] 34.4 % 37-47 [facility] Laboratory - Chemistry and C hemistry - challengeOrdered By: Henri Kelly on 10-04-2023 CO2 [Moles/Vol] 24.0 mmol/L 21.0-32.0 [facility] Cobalamin (Vitamin B12) [Mass/Vol] 401 pg/mL 211-911 [facility] Urea nitrogen/Creatinine [Mass ratio] 23.5 mg/mg 10-20 [facility] No Panel InformationOrdered By: Henri Kelly on 10-04-2023 Estimated Creatinine Clearance Calc 44.18 ml/min [facility] Estimated GFR (MDRD) Amer 61 mL/min >60 [facility] Comment on above: GFR Calc Estimated GFR (MDRD) Non-Af Amer 50 mL/min >60 [facility] Comment on above: Non- GFR Calc Serum or plasma calcium nya urement (mass/volume)Ordered By: Henri Kelly on 10-04-2023 Calcium [Mass/Vol] 9.2 mg/dL 8.5-10.1 [facility] Serum or plasma cortisol connie surement (mass/volume)Ordered By: Henri Kelly on 10-04-2023 Cortisol [Mass/Vol] 9.70 ug/dL 3.44-22.45 [facility] Comment on above: Adult (AM) 5.27 - 22 .45 ug/dL Adult (PM) 3.44 - 16.76 ug/dLPlease note revised CORTISOL reference range effective 2019. Serum or plasma creatinine m easurement (mass/volume)Ordered By: Henri Kelly on 10-04-2023 Creatinine [Mass/Vol] 1.15 mg/dL 0.55-1.02 [facility] Comment on above: The validity of the calculated GFR & GFRAA in patients over 70 years has not been determined. Clinical correlation is essential. Serum or plasma thyroid stim ulating hormone (TSH) measurement (units/volume)Ordered By: Henri Kelly on 10-04-2023 TSH Qn 0.98 uIU/mL 0.358-3.74 [facility] Serum or plasma urea nitroge n measurement (mass/volume)Ordered By: Henri Kelly on 10-04-2023 Urea nitrogen [Mass/Vol] 27 mg/dL 7-18 [facility] Thin prep Papanicolaou smear with manual screeningOrdered By: Henri Kelly on 10-04-2023 Thin prep Papanicolaou smear with manual screening 7 5-15 [facility] Basophil percentageOrdered B y: Henri Kelly on 09-26-2023 Basophil percentage 3.7 mg/dL 2.5-4.9 [facility] Bilirubin [Mass/Vol] 0.30 mg/dL 0.20-1.00 [facility] Comment on above: For patients on eltr ombopag therapy, use of Dimension [place] TBIL is not recommended. Protein [Mass/Vol] 7.1 g/dL 6.4-8.2 [facility] WBC (Bld) [#/Vol] 8.0 10*3/uL 4.4-11.0 [facility] Determination of erythrocyte mean corpuscular volume (MCV)Ordered By: Henri Kelly on 09-26-2023 MCV (RBC) [Entitic vol] 80.5 fL 81-99 [facility] Erythrocyte distribution wid th ratioOrdered By: Henri Kelly on 09-26-2023 Erythrocyte distribution width (RBC) [Ratio] 14.6 % 11.6-14.6 [facility] Erythrocyte distribution wid th standard deviationOrdered By: Henri Kelly on 09-26-2023 Erythrocyte distribution width (RBC) [Entitic vol] 40.9 fL 35.1-43.9 [facility] Laboratory - Chemistry and C hemistry - challengeOrdered By: Henri Kelly on 09-26-2023 Albumin/Globulin [Mass ratio] 0.6 {ratio} 0.9-2.4 [facility] ALP [Catalytic activity/Vol] 107 U/L 45-117 [facility] ALT [Catalytic activity/Vol] 33 U/L 13-56 [facility] Globulin (S) [Mass/Vol] 4.4 g/dL 2.2-4.2 [facility] Magnesium [Mass/Vol] 2.2 mg/dL 1.6-2.6 [facility] Laboratory - Hematology and Cell countsOrdered By: Henri Kelly on 09-26-2023 MCH (RBC) [Entitic mass] 25.6 pg 27.0-32.0 [facility] MCHC (RBC) [Mass/Vol] 31.8 g/dL 32-36 [facility] Platelet mean volume (Bld) [Entitic vol] 8.9 fL 6.2-12.0 [facility] Platelets (Bld) [#/Vol] 304 10*3/uL 150-450 [facility] RBC Auto (Bld) [#/Vol]Ordere d By: Henri Kelly on 09-26-2023 RBC (Bld) [#/Vol] 4.10 10*6/uL 4.2-5.4 [facility] Thin prep Papanicolaou smear with manual screeningOrdered By: Henri Kelly on 09-26-2023 Thin prep Papanicolaou smear with manual screening 2.7 g/dL 3.2-5.0 [facility] Thin prep Papanicolaou smear with manual screening 25 U/L 15-37 [facility] CASE MANAGEMon 09-25-2023 CASE MANAGEM Normal [facility] CBC W Auto Differential pane l (Bld)on 09-25-2023 Basophils (Bld) [#/Vol] 0.03 10*3/uL Normal <0.11 [facility] Comment on above: Order Comment: Speci men Type: BLOOD SPECIMENOrdering Facility: [facility] Address: [address] [place] [address] Performed By: #### 5 7021-8 ####[facility] [id number] [address] [place] Basophils/100 WBC (Bld) 0.3 % Normal [facility] Comment on above: Order Comment: Speci men Type: BLOOD SPECIMENOrdering Facility: [facility] Address: [address] [place] [address] Performed By: #### 5 7021-8 ####[facility] LABORATORYCLIA [id number] [place] [address] [place] Differential cell count method Nom (Bld) Auto Normal [facility] Comment on above: Order Comment: Speci men Type: BLOOD SPECIMENOrdering Facility: [facility] Address: [address] [place] [address] Performed By: #### 5 7021-8 ####[facility]ORY[facility] [id number] [place] [address] [place] Eosinophils (Bld) [#/Vol] 0.21 10*3/uL Normal <0.46 [facility] Comment on above: Order Comment: Speci men Type: BLOOD SPECIMENOrdering Facility: [facility] Address: [address] [place] [address] Performed By: #### 5 7021-8 ####[facility]ORYCLIA [id number] [place] [address] [place] Eosinophils/100 WBC (Bld) 2.0 % Normal [facility] Comment on above: Order Comment: Speci men Type: BLOOD SPECIMENOrdering Facility: [facility] Address: [address] [place] [address] Performed By: #### 5 7021-8 ####[facility]ORATORYCLIA [id number] [address] [place] Erythrocyte distribution width (RBC) [Ratio] 14.2 % Normal 11.5-15.0 [facility] Comment on above: Order Comment: Speci men Type: BLOOD SPECIMENOrdering Facility: [facility] Address: [address] [place] [address] Performed By: #### 5 7021-8 ####[facility] LABORATORYCLIA [id number] [address] [place] Hematocrit (Bld) [Volume fraction] 30.1 % Low 36.0-46.0 [facility] Comment on above: Order Comment: Speci men Type: BLOOD SPECIMENOrdering Facility: [facility] Address: [address] [place] [address] Performed By: #### 5 7021-8 ####[facility] LABORATORYCLIA [id number] [address] [place] Hemoglobin (Bld) [Mass/Vol] 9.8 g/dL Low 11.5-15.5 [facility] Comment on above: Order Comment: Speci men Type: BLOOD SPECIMENOrdering Facility: [facility] Address: [address] [place] [address] Performed By: #### 5 7021-8 ####[facility]ORATORYCLIA [id number] [address] [place] Immature granulocytes (Bld) [#/Vol] 0.04 10*3/uL Normal <0.10 [facility] Comment on above: Order Comment: Speci men Type: BLOOD SPECIMENOrdering Facility: [facility] Address: [address] [place] [address] Performed By: #### 5 7021-8 ####[facility] LABORATORYCLIA [id number] [address] Immature granulocytes/100 WBC (Bld) 0.4 % Normal [facility] Comment on above: Order Comment: Speci men Type: BLOOD SPECIMENOrdering Facility: [facility] Address: [address] [place] [address] Performed By: #### 5 7021-8 ####[facility] LABORATORYCLIA [id number] [place] [address] [place] Lymphocytes (Bld) [#/Vol] 3.69 10*3/uL Normal 1.00-4.00 [facility] Comment on above: Order Comment: Speci men Type: BLOOD SPECIMENOrdering Facility: [facility] Address: [address] [place] [address] Performed By: #### 5 7021-8 ####[facility]ORATORYCLIA [id number] [address] Lymphocytes/100 WBC (Bld) 35.1 % Normal [facility] Comment on above: Order Comment: Speci men Type: BLOOD SPECIMENOrdering Facility: [facility] Address: [address] [place] [address] Performed By: #### 5 7021-8 ####[facility] LABORATORYCLIA [id number] [address] [place] MCH (RBC) [Entitic mass] 26.3 pg Normal 26.0-34.0 [facility] Comment on above: Order Comment: Speci men Type: BLOOD SPECIMENOrdering Facility: [facility] Address: [address] [place] [address] Performed By: #### 5 7021-8 ####[facility] LABORATORYCLIA [id number] [address] [place] MCHC (RBC) [Mass/Vol] 32.6 g/dL Normal 30.5-36.0 [facility] Comment on above: Order Comment: Speci men Type: BLOOD SPECIMENOrdering Facility: [facility] Address: [address] [place] [address] Performed By: #### 5 7021-8 ####[facility] LABORATORYCLIA [id number] [place] [address] [place] MCV (RBC) [Entitic vol] 80.7 fL Normal 80.0-100.0 [facility] Comment on above: Order Comment: Speci men Type: BLOOD SPECIMENOrdering Facility: [facility] Address: [address] [place] [address] Performed By: #### 5 7021-8 ####[facility] LABORATORYCLIA [id number] [place] [address] [place] Monocytes (Bld) [#/Vol] 0.61 10*3/uL Normal <0.87 [facility] Comment on above: Order Comment: Speci men Type: BLOOD SPECIMENOrdering Facility: [facility] Address: [address] [place] [address] Performed By: #### 5 7021-8 ####[facility] LABORATORYCLIA [id number] [address] [place] Monocytes/100 WBC (Bld) 5.8 % Normal [facility] Comment on above: Order Comment: Speci men Type: BLOOD SPECIMENOrdering Facility: [facility] Address: [address] [place] [address] Performed By: #### 5 7021-8 ####[facility] LABORATORYCLIA [id number] [address] [place] Neutrophils (Bld) [#/Vol] 5.94 10*3/uL Normal 1.45-7.50 [facility] Comment on above: Order Comment: Speci men Type: BLOOD SPECIMENOrdering Facility: [facility] Address: [address] [place] [address] Performed By: #### 5 7021-8 ####[facility] LABORATORYCLIA [id number] [address] [place] Neutrophils/100 WBC (Bld) 56.4 % Normal [facility] Comment on above: Order Comment: Speci men Type: BLOOD SPECIMENOrdering Facility: [facility] Address: [address] [place] [address] Performed By: #### 5 7021-8 ####[facility] LABORATORYCLIA [id number] [address] [place] Nucleated RBC (Bld) [#/Vol] 10*3/uL Normal <0.01 [facility] Comment on above: Order Comment: Speci men Type: BLOOD SPECIMENOrdering Facility: [facility] Address: [address] [place] [address] Performed By: #### 5 7021-8 ####[facility] LABORATORYCLIA [id number] [address] [place] Nucleated RBC/100 WBC (Bld) [Ratio] 0.0 /100 WBC Normal [facility] Comment on above: Order Comment: Speci men Type: BLOOD SPECIMENOrdering Facility: [facility] Address: [address] [place] [address] Performed By: #### 5 7021-8 ####[facility] LABORATORYCLIA [id number] [address] [place] Platelet mean volume (Bld) [Entitic vol] 9.5 fL Normal 9.0-12.7 [facility] Comment on above: Order Comment: Speci men Type: BLOOD SPECIMENOrdering Facility: [facility] Address: [address] [place] [address] Performed By: #### 5 7021-8 ####[facility] LABORATORYCLIA [id number] [address] [place] Platelets (Bld) [#/Vol] 265 10*3/uL Normal 150-400 [facility] Comment on above: Order Comment: Speci men Type: BLOOD SPECIMENOrdering Facility: [facility] Address: [address] [place] [address] Performed By: #### 5 7021-8 ####[facility] LABORATORYCLIA [id number] [address] [place] RBC (Bld) [#/Vol] 3.73 10*6/uL Low 3.90-5.20 [facility] Comment on above: Order Comment: Speci men Type: BLOOD SPECIMENOrdering Facility: [facility] Address: [address] [place] [address] Performed By: #### 5 7021-8 ####[facility] LABORATORYCLIA [id number] [place] [address] [place] WBC (Bld) [#/Vol] 10.52 10*3/uL Normal 3.70-11.00 [facility] Comment on above: Order Comment: Speci men Type: BLOOD SPECIMENOrdering Facility: [facility] Address: [address] [place] [address] Performed By: #### 5 7021-8 ####[facility] LABORATORYCLIA [id number] [address] [place] CNDSon 09-25-2023 CNDS Normal [facility] Comprehensive metabolic 2000 panelon 09-25-2023 Albumin [Mass/Vol] 3.1 g/dL Low 3.9-4.9 [facility] Comment on above: Order Comment: Speci men Type: BLOOD SPECIMENOrdering Facility: [facility] Address: [address] [place] [address] Performed By: #### 1 9123-9, 2276-4, 02146-7, 2777-1, 20156-2 ####[facility] LABORATORYCLIA [id number] [address] [place] ALP [Catalytic activity/Vol] 109 U/L Normal 34-123 [facility] Comment on above: Order Comment: Speci men Type: BLOOD SPECIMENOrdering Facility: [facility] Address: [address] [place] [address] Performed By: #### 1 9123-9, 2276-4, 91578-3, 2777-1, 62627-9 ####[facility] LABORATORYCLIA [id number] [place] [address] [place] ALT With P-5'-P [Catalytic activity/Vol] 23 U/L Normal 7-38 [facility] Comment on above: Order Comment: Speci men Type: BLOOD SPECIMENOrdering Facility: [facility] Address: [address] [place] [address] [place] [address] Performed By: #### 1 9123-9, 6-4, 12967-7, 2777-1, 50741-1 ####[facility] LABORATORYCLIA [id number] [place] [address] [place] Anion gap [Moles/Vol] 10 mmol/L Normal 9-18 [facility] Comment on above: Order Comment: Speci men Type: BLOOD SPECIMENOrdering Facility: [facility] Address: [address] [place] [address] Performed By: #### 1 9123-9, 6-4, 59806-4, 2777-1, 56869-5 ####[facility] LABORATORYCLIA [id number] [place] [address] [place] AST With P-5'-P [Catalytic activity/Vol] 28 U/L Normal 13-35 [facility] Comment on above: Order Comment: Speci men Type: BLOOD SPECIMENOrdering Facility: [facility] Address: [address] [place] [address] Performed By: #### 1 9123-9, 6-4, 16748-3, 277-1, 51299-4 ####[facility] LABORATORYCLIA [id number] [place] [address] [place] Bilirubin [Mass/Vol] 0.2 mg/dL Normal 0.2-1.3 [facility] Comment on above: Order Comment: Speci men Type: BLOOD SPECIMENOrdering Facility: [facility] Address: [address] [place] [address] Performed By: #### 1 9123-9, 6-4, 48502-7, 2777-1, 52092-7 ####[facility] LABORATORYCLIA [id number] [place] [address] [place] Calcium [Mass/Vol] 9.1 mg/dL Normal 8.5-10.2 [facility] Comment on above: Order Comment: Speci men Type: BLOOD SPECIMENOrdering Facility: [facility] Address: [address] [place] [address] Performed By: #### 1 9123-9, 6-4, 60376-2, 2777-1, 35259-6 ####[facility] LABORATORYCLIA [id number] [place] [address] [place] Chloride [Moles/Vol] 103 mmol/L Normal 97-105 [facility] Comment on above: Order Comment: Speci men Type: BLOOD SPECIMENOrdering Facility: [facility] Address: [address] [place] [address] Performed By: #### 1 9123-9, 2275-4, 94219-4, 2777-1, 59105-3 ####[facility] HOSPITALCLIA [id number] [place] [address] [place] CO2 [Moles/Vol] 24 mmol/L Normal 22-30 [facility] Comment on above: Order Comment: Speci men Type: BLOOD SPECIMENOrdering Facility: [facility] Address: [address] [place] [address] Performed By: #### 1 9123-9, 2275-4, 66650-5, 2777-1, 23217-9 ####[facility] LABORATORYCLIA [id number] [place] [address] [place] Creatinine [Mass/Vol] 0.89 mg/dL Normal 0.58-0.96 [facility] Comment on above: Order Comment: Speci men Type: BLOOD SPECIMENOrdering Facility: [facility] Address: [address] [place] [address] Performed By: #### 1 9123-9, 2275-4, 79877-4, 2777-1, 28101-6 ####[facility] LABORATORYCLIA [id number] [place] [address] [facility] [place] Creatinine and Glomerular filtration rate.predicted panel (S/P/Bld) 72 mL/min/1.73m??? Normal >=60 [facility] Comment on above: Order Comment: Key albrecht Type: BLOOD SPECIMENOrdering Facility: [facility] Address: [address] [place] [address] Result Comment: Swetha mated Glomerular Filtration Rate (eGFR) is calculated using the 2020 CKD-EPI creatinine equation. This equation utilizes serum creatinine, sex, and age as parameters. The creatinine assay has traceable calibration to isotope dilution-mass spectrometry. Refer to KDIGO guidelines for clinical interpretation. In patients with unstable renal function, e.g. those with acute kidney injury, the eGFR may not accurately reflect actual GFR. Performed By: #### 1 9123-9, 2276-4, 98296-9, 2777-1, 30670-9 ####[facility] LABORATORYCLIA [id number] [place] [address] [place] Glucose [Mass/Vol] 151 mg/dL High 74-99 [facility] Comment on above: Order Comment: Key albrecht Type: BLOOD SPECIMENOrdering Facility: [facility] Address: [address] [place] [address] Result Comment: The [place] [employer] (ADA) provides guidance for cutoff values for fasting glucose and random glucose. The ADA defines fasting as no caloric intake for at least 8 hours. Fasting plasma glucose results between 100 to 125 mg/dL indicate increased risk for diabetes (prediabetes).Fasting plasma glucose results greater than or equal to 126 mg/dL meet the criteria for diagnosis of diabetes. In the absence of unequivocal hyperglycemia, results should be confirmed by repeat testing. In a patient with classic symptoms of hyperglycemia or hyperglycemic crisis, random plasma glucose results greater than or equal to 200 mg/dL meet the criteria for diagnosis of diabetes.Reference: Standards of Medical Care in Diabetes 2016, [place] [employer]. Diabetes Care. 2016.39(Suppl 1). Performed By: #### 1 9123-9, 2276-4, 94568-4, 2777-1, 57993-9 ####[facility] LABORATORYCLIA [id number] [place] [address] [place] Potassium [Moles/Vol] 3.7 mmol/L Normal 3.7-5.1 [facility] Comment on above: Order Comment: Speci men Type: BLOOD SPECIMENOrdering Facility: [facility] Address: [address] [place] [address] Performed By: #### 1 9123-9, 6-4, 94482-3, 2777-1, 60260-6 ####[facility] LABORATORYCLIA [id number] [place] [address] [place] Protein [Mass/Vol] 6.5 g/dL Normal 6.3-8.0 [facility] Comment on above: Order Comment: Speci men Type: BLOOD SPECIMENOrdering Facility: [facility] Address: [address] [place] [address] Performed By: #### 1 9123-9, 2276-4, 89167-5, 2777-1, 90259-8 ####[facility] LABORATORYCLIA [id number] [place] [address] [place] Sodium [Moles/Vol] 137 mmol/L Normal 136-144 [facility] Comment on above: Order Comment: Speci men Type: BLOOD SPECIMENOrdering Facility: [facility] Address: [address] [place] [address] Performed By: #### 1 9123-9, 6-4, 37477-7, 2777-1, 62111-7 ####[facility] LABORATORYCLIA [id number] [place] [address] [place] Urea nitrogen [Mass/Vol] 22 mg/dL High 7-21 [facility] Comment on above: Order Comment: Speci men Type: BLOOD SPECIMENOrdering Facility: [facility] Address: [address] [place] [address] Performed By: #### 1 9123-9, 6-4, 45015-4, 2777-1, 51021-6 ####[facility] LABORATORYCLIA [id number] [place] [id number] [place] Ferritin SerPl-mCncon 2023 Ferritin [Mass/Vol] 58.7 ng/mL Normal 14.7-205.1 [facility] Comment on above: Order Comment: Speci men Type: BLOOD SPECIMENOrdering Facility: [facility] Address: [address] [place] [address] Performed By: #### 1 9123-9, 6-4, 24344-0, 2777-1, 37832-5 ####[facility] LABORATORYCLIA [id number] [place] [address] [place] Iron and Iron binding capaci ty panelon 09-25-2023 Iron [Mass/Vol] 39 ug/dL Low 41-186 [facility] Comment on above: Order Comment: Speci men Type: BLOOD SPECIMENOrdering Facility: [facility] Address: [address] [place] [address] Performed By: #### 1 9123-9, 2275-4, 43094-7, 2777-, 83769-5 ####[facility] LABORATORYCLIA [id number] [address] [place] Iron binding capacity [Mass/Vol] 296 ug/dL Normal 232-386 [facility] Comment on above: Order Comment: Speci men Type: BLOOD SPECIMENOrdering Facility: [facility] Address: [address] [place] [address] Performed By: #### 1 9123-9, 2275-4, 81485-1, 2777-, 95740-2 ####[facility] LABORATORYCLIA [id number] [address] STATES [facility] Iron saturation [Mass fraction] 13.2 % Low 15.0-57.0 [facility] Comment on above: Order Comment: Speci men Type: BLOOD SPECIMENOrdering Facility: [facility] Address: [address] [place] [address] Performed By: #### 1 9123-9, 2275-4, 64649-8, 2777-1, 96792-2 ####[facility] LABORATORYCLIA [id number] [place] [address] [place] Magnesium SerPl-mCncon 09-24 Magnesium [Mass/Vol] 1.7 mg/dL Normal 1.7-2.3 [facility] Comment on above: Order Comment: Speci men Type: BLOOD SPECIMENOrdering Facility: [facility] Address: [address] [place] [address] Performed By: #### 1 9123-9, 2276-4, 99897-9, 2777-1, 00397-4 ####[facility] LABORATORYCLIA [id number] [place] [address] [place] PT EDon 09-25-2023 PT ED Normal [facility] Phosphate SerPl-mCncon 09-24 Phosphate [Mass/Vol] 3.9 mg/dL Normal 2.7-4.8 [facility] Comment on above: Order Comment: Speci men Type: BLOOD SPECIMENOrdering Facility: [facility] Address: [address] [place] [address] Performed By: #### 1 9123-9, 2276-4, 61567-9, 2777-1, 96425-8 ####[facility] LABORATORYCLIA [id number] [place] [address] [place] ALLIED HEALTHon 09-24-2023 ALLIED HEALTH Normal [facility] CASE MANAGEMon 09-24-2023 CASE MANAGEM Normal [facility] CBC W Auto Differential pane l (Bld)on 09-24-2023 Basophils (Bld) [#/Vol] 0.03 10*3/uL Normal <0.11 [facility] Comment on above: Order Comment: Speci men Type: BLOOD SPECIMENOrdering Facility: [facility] Address: [address] [place] [address] Performed By: #### 5 7021-8 ####[facility] LABORATORYCLIA [id number] [address] [place] Basophils/100 WBC (Bld) 0.3 % Normal [facility] Comment on above: Order Comment: Speci men Type: BLOOD SPECIMENOrdering Facility: [facility] Address: [address] [place] [address] Performed By: #### 5 7021-8 ####[facility] LABORATORYCLIA [id number] [address] Differential cell count method Nom (Bld) Auto Normal [facility] Comment on above: Order Comment: Speci men Type: BLOOD SPECIMENOrdering Facility: [facility] Address: [address] [place] [address] Performed By: #### 5 7021-8 ####[facility] LABORATORYCLIA [id number] [address] [place] Eosinophils (Bld) [#/Vol] 0.21 10*3/uL Normal <0.46 [facility] Comment on above: Order Comment: Speci men Type: BLOOD SPECIMENOrdering Facility: [facility] Address: [address] [place] [address] Performed By: #### 5 7021-8 ####[facility] LABORATORYCLIA [id number] [address] Eosinophils/100 WBC (Bld) 2.1 % Normal [facility] Comment on above: Order Comment: Speci men Type: BLOOD SPECIMENOrdering Facility: [facility] Address: [address] [place] [address] Performed By: #### 5 7021-8 ####[facility] LABORATORYCLIA [id number] [address] Erythrocyte distribution width (RBC) [Ratio] 14.4 % Normal 11.5-15.0 [facility] Comment on above: Order Comment: Speci men Type: BLOOD SPECIMENOrdering Facility: [facility] Address: [address] [place] [address] Performed By: #### 5 7021-8 ####[facility] LABORATORYCLIA [id number] [address] Hematocrit (Bld) [Volume fraction] 35.1 % Low 36.0-46.0 [facility] Comment on above: Order Comment: Speci men Type: BLOOD SPECIMENOrdering Facility: [facility] Address: [address] [place] [address] Performed By: #### 5 7021-8 ####[facility]ATORYCLIA [id number] [place] [address] [place] Hemoglobin (Bld) [Mass/Vol] 11.2 g/dL Low 11.5-15.5 [facility] Comment on above: Order Comment: Speci men Type: BLOOD SPECIMENOrdering Facility: [facility] Address: [address] [place] [address] Performed By: #### 5 7021-8 ####[facility]ORATORYCLIA [id number] [place] [address] [place] Immature granulocytes (Bld) [#/Vol] 0.06 10*3/uL Normal <0.10 [facility] Comment on above: Order Comment: Speci men Type: BLOOD SPECIMENOrdering Facility: [facility] Address: [address] [place] [address] Performed By: #### 5 7021-8 ####[facility] LABORATORYCLIA [id number] [address] [place] Immature granulocytes/100 WBC (Bld) 0.6 % Normal [facility] Comment on above: Order Comment: Speci men Type: BLOOD SPECIMENOrdering Facility: [facility] Address: [address] [place] [address] Performed By: #### 5 7021-8 ####[facility] LABORATORYCLIA [id number] [place] [address] [place] Lymphocytes (Bld) [#/Vol] 3.01 10*3/uL Normal 1.00-4.00 [facility] Comment on above: Order Comment: Speci men Type: BLOOD SPECIMENOrdering Facility: [facility] Address: [address] [place] [address] Performed By: #### 5 7021-8 ####[facility]ORATORYCLIA [id number] [place] [address] [place] Lymphocytes/100 WBC (Bld) 30.2 % Normal [facility] Comment on above: Order Comment: Speci men Type: BLOOD SPECIMENOrdering Facility: [facility] Address: [address] [place] [address] Performed By: #### 5 7021-8 ####[facility] LABORATORYCLIA [id number] [address] MCH (RBC) [Entitic mass] 25.7 pg Low 26.0-34.0 [facility] Comment on above: Order Comment: Speci men Type: BLOOD SPECIMENOrdering Facility: [facility] Address: [address] [place] [address] Performed By: #### 5 7021-8 ####[facility] LABORATORYCLIA [id number] [address] MCHC (RBC) [Mass/Vol] 31.9 g/dL Normal 30.5-36.0 [facility] Comment on above: Order Comment: Speci men Type: BLOOD SPECIMENOrdering Facility: [facility] Address: [address] [place] [address] Performed By: #### 5 7021-8 ####[facility] LABORATORYCLIA [id number] [address] MCV (RBC) [Entitic vol] 80.5 fL Normal 80.0-100.0 [facility] Comment on above: Order Comment: Speci men Type: BLOOD SPECIMENOrdering Facility: [facility] Address: [address] [place] [address] Performed By: #### 5 7021-8 ####[facility] LABORATORYCLIA [id number] [address] Monocytes (Bld) [#/Vol] 0.49 10*3/uL Normal <0.87 [facility] Comment on above: Order Comment: Speci men Type: BLOOD SPECIMENOrdering Facility: [facility] Address: [address] [place] [address] Performed By: #### 5 7021-8 ####[facility] LABORATORYCLIA [id number] [place] [address] [place] Monocytes/100 WBC (Bld) 4.9 % Normal [facility] Comment on above: Order Comment: Speci men Type: BLOOD SPECIMENOrdering Facility: [facility] Address: [address] [place] [address] Performed By: #### 5 7021-8 ####[facility]ORATORYCLIA [id number] [place] [address] [place] Neutrophils (Bld) [#/Vol] 6.16 10*3/uL Normal 1.45-7.50 [facility] Comment on above: Order Comment: Speci men Type: BLOOD SPECIMENOrdering Facility: [facility] Address: [address] [place] [address] Performed By: #### 5 7021-8 ####[facility]ORATORYCLIA [id number] [place] [address] [place] Neutrophils/100 WBC (Bld) 61.9 % Normal [facility] Comment on above: Order Comment: Speci men Type: BLOOD SPECIMENOrdering Facility: [facility] Address: [address] [place] [address] Performed By: #### 5 7021-8 ####[facility]ORATORYCLIA [id number] [place] [address] [place] Nucleated RBC (Bld) [#/Vol] 10*3/uL Normal <0.01 [facility] Comment on above: Order Comment: Speci men Type: BLOOD SPECIMENOrdering Facility: [facility] Address: [address] [place] [address] Performed By: #### 5 7021-8 ####[facility]ORATORYCLIA [id number] [place] [address] [place] Nucleated RBC/100 WBC (Bld) [Ratio] 0.0 /100 WBC Normal [facility] Comment on above: Order Comment: Speci men Type: BLOOD SPECIMENOrdering Facility: [facility] Address: [address] [place] [address] Performed By: #### 5 7021-8 ####[facility]ORATORYCLIA [id number] [place] [address] [place] Platelet mean volume (Bld) [Entitic vol] 9.3 fL Normal 9.0-12.7 [facility] Comment on above: Order Comment: Speci men Type: BLOOD SPECIMENOrdering Facility: [facility] Address: [address] [place] [address] Performed By: #### 5 7021-8 ####[facility] LABORATORYCLIA [id number] [place] [address] [place] Platelets (Bld) [#/Vol] 270 10*3/uL Normal 150-400 [facility] Comment on above: Order Comment: Speci men Type: BLOOD SPECIMENOrdering Facility: [facility] Address: [address] [place] [address] Performed By: #### 5 7021-8 ####[facility] LABORATORYCLIA [id number] [address] [place] RBC (Bld) [#/Vol] 4.36 10*6/uL Normal 3.90-5.20 [facility] Comment on above: Order Comment: Speci men Type: BLOOD SPECIMENOrdering Facility: [facility] Address: [address] [place] [address] Performed By: #### 5 7021-8 ####[facility] LABORATORYCLIA [id number] [place] [address] [place] WBC (Bld) [#/Vol] 9.96 10*3/uL Normal 3.70-11.00 [facility] Comment on above: Order Comment: Speci men Type: BLOOD SPECIMENOrdering Facility: [facility] Address: [address] [place] [address] Performed By: #### 5 7021-8 ####[facility] LABORATORYCLIA [id number] [address] [place] Comprehensive metabolic 2000 panelon 09-24-2023 Albumin [Mass/Vol] 3.2 g/dL Low 3.9-4.9 [facility] Comment on above: Order Comment: Speci men Type: BLOOD SPECIMENOrdering Facility: [facility] Address: [address] [place] [address] Performed By: #### 1 9123-9, 12101-6, 2776- ####[facility] LABORATORYCLIA [id number] [address] STATES OF [facility] ALP [Catalytic activity/Vol] 115 U/L Normal 34-123 [facility] Comment on above: Order Comment: Speci men Type: BLOOD SPECIMENOrdering Facility: [facility] Address: [address] [place] [address] Performed By: #### 1 9123-9, 53570-9, 2776- ####[facility] LABORATORYCLIA [id number] [address] [place] [facility] ALT With P-5'-P [Catalytic activity/Vol] 16 U/L Normal 7-38 [facility] Comment on above: Order Comment: Speci men Type: BLOOD SPECIMENOrdering Facility: [facility] Address: [address] [place] [address] Performed By: #### 1 9123-9, 05330-9, 2776-07 ####[facility] LABORATORYCLIA [id number] [address] STATES [facility] Anion gap [Moles/Vol] 10 mmol/L Normal 9-18 [facility] Comment on above: Order Comment: Speci men Type: BLOOD SPECIMENOrdering Facility: [facility] Address: [address] [place] [address] Performed By: #### 1 9123-9, 08681-3, 2776- ####[facility] LABORATORYCLIA [id number] [address] [place] AST With P-5'-P [Catalytic activity/Vol] 20 U/L Normal 13-35 [facility] Comment on above: Order Comment: Speci men Type: BLOOD SPECIMENOrdering Facility: [facility] Address: [address] [place] [address] Performed By: #### 1 9123-9, , 2776-07 ####[facility] LABORATORYCLIA [id number] [place] [address] [place] Bilirubin [Mass/Vol] 0.3 mg/dL Normal 0.2-1.3 [facility] Comment on above: Order Comment: Speci men Type: BLOOD SPECIMENOrdering Facility: [facility] Address: [address] [place] [address] Performed By: #### 1 9123-9, , 2776-07 ####[facility] LABORATORYCLIA [id number] [place] [address] [place] Calcium [Mass/Vol] 9.1 mg/dL Normal 8.5-10.2 [facility] Comment on above: Order Comment: Speci men Type: BLOOD SPECIMENOrdering Facility: [facility] Address: [address] [place] [address] Performed By: #### 1 91239, , 2776-07 ####[facility] LABORATORYCLIA [id number] [place] [address] [place] Chloride [Moles/Vol] 102 mmol/L Normal 97-105 [facility] Comment on above: Order Comment: Speci men Type: BLOOD SPECIMENOrdering Facility: [facility] Address: [address] [place] [address] Performed By: #### 1 9123-9, , 2776-07 ####[facility] LABORATORYCLIA [id number] [place] [address] [place] CO2 [Moles/Vol] 26 mmol/L Normal 22-30 [facility] Comment on above: Order Comment: Speci men Type: BLOOD SPECIMENOrdering Facility: [facility] Address: [address] [place] [address] Performed By: #### 1 9123-9, , 2776-07 ####[facility] LABORATORYCLIA [id number] [place] [address] [place] Creatinine [Mass/Vol] 0.82 mg/dL Normal 0.58-0.96 [facility] Comment on above: Order Comment: Key albrecht Type: BLOOD SPECIMENOrdering Facility: [facility] Address: [address] [place] [address] Performed By: #### 1 9123-9, 61455-7, 2777-1 ####[facility] LABORATORYCLIA [id number] [address] OF [place] Creatinine and Glomerular filtration rate.predicted panel (S/P/Bld) 79 mL/min/1.73m??? Normal >=60 [facility] Comment on above: Order Comment: Key albrecht Type: BLOOD SPECIMENOrdering Facility: [facility] Address: [address] [place] [address] Result Comment: Swetha mated Glomerular Filtration Rate (eGFR) is calculated using the 2020 CKD-EPI creatinine equation. This equation utilizes serum creatinine, sex, and age as parameters. The creatinine assay has traceable calibration to isotope dilution-mass spectrometry. Refer to KDIGO guidelines for clinical interpretation. In patients with unstable renal function, e.g. those with acute kidney injury, the eGFR may not accurately reflect actual GFR. Performed By: #### 1 9123-9, 53006-9, 27771 ####[facility] LABORATORYCLIA [id number] [place] [address] [place] Glucose [Mass/Vol] 126 mg/dL High 74-99 [facility] Comment on above: Order Comment: Key albrecht Type: BLOOD SPECIMENOrdering Facility: [facility] Address: [address] [place] [address] Result Comment: The [place] Diabetes [employer] (ADA) provides guidance for cutoff values for fasting glucose and random glucose. The ADA defines fasting as no caloric intake for at least 8 hours. Fasting plasma glucose results between 100 to 125 mg/dL indicate increased risk for diabetes (prediabetes).Fasting plasma glucose results greater than or equal to 126 mg/dL meet the criteria for diagnosis of diabetes. In the absence of unequivocal hyperglycemia, results should be confirmed by repeat testing. In a patient with classic symptoms of hyperglycemia or hyperglycemic crisis, random plasma glucose results greater than or equal to 200 mg/dL meet the criteria for diagnosis of diabetes.Reference: Standards of Medical Care in Diabetes 2016, [place] [employer]. Diabetes Care. 2016.39(Suppl 1). Performed By: #### 1 9123-9, 48232-5, 2776-07 ####[facility] LABORATORYCLIA [id number] [place] [address] [place] Potassium [Moles/Vol] 3.5 mmol/L Low 3.7-5.1 [facility] Comment on above: Order Comment: Speci men Type: BLOOD SPECIMENOrdering Facility: [facility] Address: [address] [place] [address] Performed By: #### 1 9123-9, 99049-3, 2776-07 ####[facility] LABORATORYCLIA [id number] [place] [address] [place] Protein [Mass/Vol] 7.0 g/dL Normal 6.3-8.0 [facility] Comment on above: Order Comment: Speci men Type: BLOOD SPECIMENOrdering Facility: [facility] Address: [address] [place] [address] Performed By: #### 1 9123-9, , 2776-07 ####[facility] LABORATORYCLIA [id number] [place] [address] [place] Sodium [Moles/Vol] 138 mmol/L Normal 136-144 [facility] Comment on above: Order Comment: Speci men Type: BLOOD SPECIMENOrdering Facility: [facility] Address: [facility] [place] [address] Performed By: #### 1 9123-9, , 2776-07 ####[facility] LABORATORYCLIA [id number] [place] [address] [place] Urea nitrogen [Mass/Vol] 15 mg/dL Normal 7-21 [facility] Comment on above: Order Comment: Speci men Type: BLOOD SPECIMENOrdering Facility: [facility] Address: [address] [place] [address] Performed By: #### 1 9123-9, 97813-1, 2776- ####[facility] LABORATORYCLIA [id number] [place] [address] [place] Magnesium SerPl-ncon 09-23 Magnesium [Mass/Vol] 1.8 mg/dL Normal 1.7-2.3 [facility] Comment on above: Order Comment: Speci men Type: BLOOD SPECIMENOrdering Facility: [facility] Address: [address] [place] [address] Performed By: #### 1 9123-9, 49007-2, 2777-1 ####[facility] LABORATORYCLIA [id number] [place] [address] [place] Phosphate SerPl-mCncon 09-23 Phosphate [Mass/Vol] 3.5 mg/dL Normal 2.7-4.8 [facility] Comment on above: Order Comment: Speci men Type: BLOOD SPECIMENOrdering Facility: [facility] Address: [address] [place] [address] Performed By: #### 1 9123-9, 88008-4, 2777-1 ####[facility] LABORATORYCLIA [id number] [place] [address] [place] THERAPY NTon 09-24-2023 THERAPY NT Normal [facility] THERAPY NT Normal [facility] CASE MANAGEMon 09-23-2023 CASE MANAGEM Normal [facility] CBC W Auto Differential pane l (Bld)on 09-23-2023 Basophils (Bld) [#/Vol] 10*3/uL Normal <0.11 [facility] Comment on above: Order Comment: Speci men Type: BLOOD SPECIMENOrdering Facility: [facility] Address: [address] [place] [address] Performed By: #### 5 7021-8 ####[facility] LABORATORYCLIA [id number] [address] STATES [place] Basophils/100 WBC (Bld) 0.2 % Normal [facility] Comment on above: Order Comment: Speci men Type: BLOOD SPECIMENOrdering Facility: [facility] Address: [address] [place] [address] Performed By: #### 5 7021-8 ####[facility]ORATORYCLIA [id number] [address] Differential cell count method Nom (Bld) Auto Normal [facility] Comment on above: Order Comment: Speci men Type: BLOOD SPECIMENOrdering Facility: [facility] Address: [address] [place] [address] Performed By: #### 5 7021-8 ####[facility] LABORATORYCLIA [id number] [address] [place] Eosinophils (Bld) [#/Vol] 0.16 10*3/uL Normal <0.46 [facility] Comment on above: Order Comment: Speci men Type: BLOOD SPECIMENOrdering Facility: [facility] Address: [address] [place] [address] Performed By: #### 5 7021-8 ####[facility] LABORATORYCLIA [id number] [address] Eosinophils/100 WBC (Bld) 1.6 % Normal [facility] Comment on above: Order Comment: Speci men Type: BLOOD SPECIMENOrdering Facility: [facility] Address: [address] [place] [address] Performed By: #### 5 7021-8 ####[facility] LABORATORYCLIA [id number] [address] [place] Erythrocyte distribution width (RBC) [Ratio] 14.1 % Normal 11.5-15.0 [facility] Comment on above: Order Comment: Speci men Type: BLOOD SPECIMENOrdering Facility: [facility] Address: [address] [place] [address] Performed By: #### 5 7021-8 ####[facility] LABORATORYCLIA [id number] [address] [place] Hematocrit (Bld) [Volume fraction] 33.4 % Low 36.0-46.0 [facility] Comment on above: Order Comment: Speci men Type: BLOOD SPECIMENOrdering Facility: [facility] Address: [address] [place] [address] Performed By: #### 5 7021-8 ####[facility]ORATORYCLIA [id number] [place] [address] [place] Hemoglobin (Bld) [Mass/Vol] 10.9 g/dL Low 11.5-15.5 [facility] Comment on above: Order Comment: Speci men Type: BLOOD SPECIMENOrdering Facility: [facility] Address: [address] [place] [address] Performed By: #### 5 7021-8 ####[facility] LABORATORYCLIA [id number] [address] [place] Immature granulocytes (Bld) [#/Vol] 0.05 10*3/uL Normal <0.10 [facility] Comment on above: Order Comment: Speci men Type: BLOOD SPECIMENOrdering Facility: [facility] Address: [address] [place] [address] Performed By: #### 5 7021-8 ####[facility] LABORATORYCLIA [id number] [address] [place] Immature granulocytes/100 WBC (Bld) 0.5 % Normal [facility] Comment on above: Order Comment: Speci men Type: BLOOD SPECIMENOrdering Facility: [facility] Address: [address] [place] [address] Performed By: #### 5 7021-8 ####[facility]ORATORYCLIA [id number] [address] [place] Lymphocytes (Bld) [#/Vol] 2.54 10*3/uL Normal 1.00-4.00 [facility] Comment on above: Order Comment: Speci men Type: BLOOD SPECIMENOrdering Facility: [facility] Address: [address] [place] [address] Performed By: #### 5 7021-8 ####[facility]ORATORYCLIA [id number] [address] [place] Lymphocytes/100 WBC (Bld) 25.3 % Normal [facility] Comment on above: Order Comment: Speci men Type: BLOOD SPECIMENOrdering Facility: [facility] Address: [address] [place] [address] Performed By: #### 5 7021-8 ####[facility] LABORATORYCLIA [id number] [address] STATES [place] [facility] MCH (RBC) [Entitic mass] 26.3 pg Normal 26.0-34.0 [facility] Comment on above: Order Comment: Speci men Type: BLOOD SPECIMENOrdering Facility: [facility] Address: [address] [place] [address] Performed By: #### 5 7021-8 ####[facility] LABORATORYCLIA [id number] [address] MCHC (RBC) [Mass/Vol] 32.6 g/dL Normal 30.5-36.0 [facility] Comment on above: Order Comment: Speci men Type: BLOOD SPECIMENOrdering Facility: [facility] Address: [address] [place] [address] Performed By: #### 5 7021-8 ####[facility] LABORATORYCLIA [id number] [address] STATES [facility] MCV (RBC) [Entitic vol] 80.5 fL Normal 80.0-100.0 [facility] Comment on above: Order Comment: Speci men Type: BLOOD SPECIMENOrdering Facility: [facility] Address: [address] [place] [address] Performed By: #### 5 7021-8 ####[facility] LABORATORYCLIA [id number] [address] Monocytes (Bld) [#/Vol] 0.48 10*3/uL Normal <0.87 [facility] Comment on above: Order Comment: Speci men Type: BLOOD SPECIMENOrdering Facility: [facility] Address: [address] [place] [address] Performed By: #### 5 7021-8 ####[facility]ORATORYCLIA [id number] [place] [address] [place] Monocytes/100 WBC (Bld) 4.8 % Normal [facility] Comment on above: Order Comment: Speci men Type: BLOOD SPECIMENOrdering Facility: [facility] Address: [address] [place] [address] Performed By: #### 5 7021-8 ####[facility] LABORATORYCLIA [id number] [place] [address] [place] Neutrophils (Bld) [#/Vol] 6.77 10*3/uL Normal 1.45-7.50 [facility] Comment on above: Order Comment: Speci men Type: BLOOD SPECIMENOrdering Facility: [facility] Address: [address] [place] [address] Performed By: #### 5 7021-8 ####[facility] LABORATORYCLIA [id number] [address] [place] Neutrophils/100 WBC (Bld) 67.6 % Normal [facility] Comment on above: Order Comment: Speci men Type: BLOOD SPECIMENOrdering Facility: [facility] Address: [address] [place] [address] Performed By: #### 5 7021-8 ####[facility] LABORATORYCLIA [id number] [place] [address] [place] Nucleated RBC (Bld) [#/Vol] 10*3/uL Normal <0.01 [facility] Comment on above: Order Comment: Speci men Type: BLOOD SPECIMENOrdering Facility: [facility] Address: [address] [place] [address] Performed By: #### 5 7021-8 ####[facility] LABORATORYCLIA [id number] [address] [place] Nucleated RBC/100 WBC (Bld) [Ratio] 0.0 /100 WBC Normal [facility] Comment on above: Order Comment: Speci men Type: BLOOD SPECIMENOrdering Facility: [facility] Address: [address] [place] [address] Performed By: #### 5 7021-8 ####[facility] LABORATORYCLIA [id number] [address] [place] Platelet mean volume (Bld) [Entitic vol] 9.3 fL Normal 9.0-12.7 [facility] Comment on above: Order Comment: Speci men Type: BLOOD SPECIMENOrdering Facility: [facility] Address: [address] [place] [address] Performed By: #### 5 7021-8 ####[facility] LABORATORYCLIA [id number] [address] [place] Platelets (Bld) [#/Vol] 229 10*3/uL Normal 150-400 [facility] Comment on above: Order Comment: Speci men Type: BLOOD SPECIMENOrdering Facility: [facility] Address: [address] [place] [address] Performed By: #### 5 7021-8 ####[facility] LABORATORYCLIA [id number] [address] RBC (Bld) [#/Vol] 4.15 10*6/uL Normal 3.90-5.20 [facility] Comment on above: Order Comment: Speci men Type: BLOOD SPECIMENOrdering Facility: [facility] Address: [address] [place] [address] Performed By: #### 5 7021-8 ####[facility] LABORATORYCLIA [id number] [address] [place] WBC (Bld) [#/Vol] 10.02 10*3/uL Normal 3.70-11.00 [facility] Comment on above: Order Comment: Speci men Type: BLOOD SPECIMENOrdering Facility: [facility] Address: [address] [place] [address] Performed By: #### 5 7021-8 ####[facility] LABORATORYCLIA [id number] [address] [place] Comprehensive metabolic 2000 panelon 09-23-2023 Albumin [Mass/Vol] 3.2 g/dL Low 3.9-4.9 [facility] Comment on above: Order Comment: Speci men Type: BLOOD SPECIMENOrdering Facility: [facility] Address: [address] [place] [address] Performed By: #### 1 9123-9, 29517-3, 2776- ####[facility] LABORATORYCLIA [id number] [place] [address] [place] [facility] ALP [Catalytic activity/Vol] 107 U/L Normal 34-123 [facility] Comment on above: Order Comment: Speci men Type: BLOOD SPECIMENOrdering Facility: [facility] Address: [address] [place] [address] Performed By: #### 1 9123-9, 81742-0, 2776-07 ####[facility] LABORATORYCLIA [id number] [address] [place] [facility] ALT With P-5'-P [Catalytic activity/Vol] 12 U/L Normal 7-38 [facility] Comment on above: Order Comment: Speci men Type: BLOOD SPECIMENOrdering Facility: [facility] Address: [address] [place] [address] Performed By: #### 1 9123-9, 66424-7, 2776-07 ####[facility] LABORATORYCLIA [id number] [address] [place] [facility] Anion gap [Moles/Vol] 9 mmol/L Normal 9-18 [facility] Comment on above: Order Comment: Speci men Type: BLOOD SPECIMENOrdering Facility: [facility] Address: [address] [place] [address] Performed By: #### 1 9123-9, 41966-0, 2776- ####[facility] LABORATORYCLIA [id number] [place] [address] [place] AST With P-5'-P [Catalytic activity/Vol] 14 U/L Normal 13-35 [facility] Comment on above: Order Comment: Speci men Type: BLOOD SPECIMENOrdering Facility: [facility] Address: [address] [place] [address] Performed By: #### 1 9123-9, 50975-7, 2776- ####[facility] LABORATORYCLIA [id number] [place] [address] [place] Bilirubin [Mass/Vol] 0.3 mg/dL Normal 0.2-1.3 [facility] Comment on above: Order Comment: Speci men Type: BLOOD SPECIMENOrdering Facility: [facility] Address: [address] [place] [address] Performed By: #### 1 9123-9, 60241-0, 2776- ####[facility] LABORATORYCLIA [id number] [place] [address] [place] Calcium [Mass/Vol] 8.9 mg/dL Normal 8.5-10.2 [facility] Comment on above: Order Comment: Speci men Type: BLOOD SPECIMENOrdering Facility: [facility] Address: [address] [place] [address] Performed By: #### 1 23-9, 15314-8, 2776-07 ####[facility] LABORATORYCLIA [id number] [place] [address] [place] Chloride [Moles/Vol] 101 mmol/L Normal 97-105 [facility] Comment on above: Order Comment: Speci men Type: BLOOD SPECIMENOrdering Facility: [facility] Address: [address] [place] [address] Performed By: #### 1 9123-9, 67939-0, 2776- ####[facility] LABORATORYCLIA [id number] [place] [address] [place] CO2 [Moles/Vol] 27 mmol/L Normal 22-30 [facility] Comment on above: Order Comment: Speci men Type: BLOOD SPECIMENOrdering Facility: [facility] Address: [address] [place] [address] Performed By: #### 1 9123-9, 93704-1, 2776- ####[facility] LABORATORYCLIA [id number] [address] [place] [facility] Creatinine [Mass/Vol] 0.76 mg/dL Normal 0.58-0.96 [facility] Comment on above: Order Comment: Key albrecht Type: BLOOD SPECIMENOrdering Facility: [facility] Address: [address] [place] [address] Performed By: #### 1 9123-9, 56165-9, 2777-1 ####[facility] LABORATORYCLIA [id number] [address] Creatinine and Glomerular filtration rate.predicted panel (S/P/Bld) 87 mL/min/1.73m??? Normal >=60 [facility] Comment on above: Order Comment: Key albrecht Type: BLOOD SPECIMENOrdering Facility: [facility] Address: [address] [place] [address] Result Comment: Swetha mated Glomerular Filtration Rate (eGFR) is calculated using the 2020 CKD-EPI creatinine equation. This equation utilizes serum creatinine, sex, and age as parameters. The creatinine assay has traceable calibration to isotope dilution-mass spectrometry. Refer to KDIGO guidelines for clinical interpretation. In patients with unstable renal function, e.g. those with acute kidney injury, the eGFR may not accurately reflect actual GFR. Performed By: #### 1 9123-9, 46940-3, 2776-07 ####[facility] LABORATORYCLIA [id number] [address] [place] [facility] Glucose [Mass/Vol] 177 mg/dL High 74-99 [facility] Comment on above: Order Comment: Key albrecht Type: BLOOD SPECIMENOrdering Facility: [facility] Address: [address] [place] [address] Result Comment: The [place] [employer] (ADA) provides guidance for cutoff values for fasting glucose and random glucose. The ADA defines fasting as no caloric intake for at least 8 hours. Fasting plasma glucose results between 100 to 125 mg/dL indicate increased risk for diabetes (prediabetes).Fasting plasma glucose results greater than or equal to 126 mg/dL meet the criteria for diagnosis of diabetes. In the absence of unequivocal hyperglycemia, results should be confirmed by repeat testing. In a patient with classic symptoms of hyperglycemia or hyperglycemic crisis, random plasma glucose results greater than or equal to 200 mg/dL meet the criteria for diagnosis of diabetes.Reference: Standards of Medical Care in Diabetes 2016, [place] [employer]. Diabetes Care. 2016.39(Suppl 1). Performed By: #### 1 9123-9, 42355-8, 277- ####[facility] LABORATORYCLIA [id number] [place] [address] [place] Potassium [Moles/Vol] 4.0 mmol/L Normal 3.7-5.1 [facility] Comment on above: Order Comment: Speci men Type: BLOOD SPECIMENOrdering Facility: [facility] Address: [address] [place] [address] Performed By: #### 1 9123-9, 01791-8, 27712-29 ####[facility] LABORATORYCLIA [id number] [place] [address] [place] Protein [Mass/Vol] 6.7 g/dL Normal 6.3-8.0 [facility] Comment on above: Order Comment: Speci men Type: BLOOD SPECIMENOrdering Facility: [facility] Address: [address] [place] [address] Performed By: #### 1 9123-9, , 2776-07 ####[facility] LABORATORYCLIA [id number] [place] [address] [place] Sodium [Moles/Vol] 137 mmol/L Normal 136-144 [facility] Comment on above: Order Comment: Speci men Type: BLOOD SPECIMENOrdering Facility: [facility] Address: [address] [place] [address] Performed By: #### 1 9123-9, 72098-3, 2776- ####[facility] LABORATORYCLIA [id number] [place] [address] [place] Urea nitrogen [Mass/Vol] 11 mg/dL Normal 7-21 [facility] Comment on above: Order Comment: Speci men Type: BLOOD SPECIMENOrdering Facility: [facility] Address: [address] [place] [address] Performed By: #### 1 9123-9, 10635-8, 2777-1 ####[facility] LABORATORYCLIA [id number] [address] [facility] Magnesium [Mass/Vol] 1.9 mg/dL Normal 1.7-2.3 [facility] Comment on above: Order Comment: Speci men Type: BLOOD SPECIMENOrdering Facility: [facility] Address: [address] [place] [address] Performed By: #### 1 9123-9, 81060-8, 2777-1 ####[facility] LABORATORYCLIA [id number] [place] [address] [place] NUTRITIONon 09-23-2023 NUTRITION Normal [facility] Phosphate [Mass/Vol] 3.9 mg/dL Normal 2.7-4.8 [facility] Comment on above: Order Comment: Speci men Type: BLOOD SPECIMENOrdering Facility: [facility] Address: [address] [place] [address] Performed By: #### 1 9123-9, 14033-6, 2777-1 ####[facility] LABORATORYCLIA [id number] [address] [place] THERAPY NTon 09-23-2023 THERAPY NT Normal [facility] THERAPY NT Normal [facility] CBC W Auto Differential pane l (Bld)on 09-22-2023 Basophils (Bld) [#/Vol] 10*3/uL Normal <0.11 [facility] Comment on above: Order Comment: Speci men Type: BLOOD SPECIMENOrdering Facility: [facility] Address: [address] [place] [address] Performed By: #### 5 7021-8 ####[facility] LABORATORYCLIA [id number] [address] [place] Basophils/100 WBC (Bld) 0.2 % Normal [facility] Comment on above: Order Comment: Speci men Type: BLOOD SPECIMENOrdering Facility: [facility] Address: [address] [place] [address] Performed By: #### 5 7021-8 ####[facility] LABORATORYCLIA [id number] [address] Differential cell count method Nom (Bld) Auto Normal [facility] Comment on above: Order Comment: Speci men Type: BLOOD SPECIMENOrdering Facility: [facility] Address: [address] [place] [address] Performed By: #### 5 7021-8 ####[facility] LABORATORYCLIA [id number] [address] Eosinophils (Bld) [#/Vol] 0.07 10*3/uL Normal <0.46 [facility] Comment on above: Order Comment: Speci men Type: BLOOD SPECIMENOrdering Facility: [facility] Address: [address] [place] [address] Performed By: #### 5 7021-8 ####[facility] LABORATORYCLIA [id number] [address] Eosinophils/100 WBC (Bld) 0.7 % Normal [facility] Comment on above: Order Comment: Speci men Type: BLOOD SPECIMENOrdering Facility: [facility] Address: [address] [place] [address] Performed By: #### 5 7021-8 ####[facility] LABORATORYCLIA [id number] [address] Erythrocyte distribution width (RBC) [Ratio] 13.7 % Normal 11.5-15.0 [facility] Comment on above: Order Comment: Speci men Type: BLOOD SPECIMENOrdering Facility: [facility] Address: [address] [place] [address] Performed By: #### 5 7021-8 ####[facility]ATORYCLIA [id number] [address] [place] Hematocrit (Bld) [Volume fraction] 32.0 % Low 36.0-46.0 [facility] Comment on above: Order Comment: Speci men Type: BLOOD SPECIMENOrdering Facility: [facility] Address: [address] [place] [address] Performed By: #### 5 7021-8 ####[facility] LABORATORYCLIA [id number] [address] [place] Hemoglobin (Bld) [Mass/Vol] 10.7 g/dL Low 11.5-15.5 [facility] Comment on above: Order Comment: Speci men Type: BLOOD SPECIMENOrdering Facility: [facility] Address: [address] [place] [address] Performed By: #### 5 7021-8 ####[facility] LABORATORYCLIA [id number] [address] [place] Immature granulocytes (Bld) [#/Vol] 0.04 10*3/uL Normal <0.10 [facility] Comment on above: Order Comment: Speci men Type: BLOOD SPECIMENOrdering Facility: [facility] Address: [address] [place] [address] Performed By: #### 5 7021-8 ####[facility] LABORATORYCLIA [id number] [address] [place] Immature granulocytes/100 WBC (Bld) 0.4 % Normal [facility] Comment on above: Order Comment: Speci men Type: BLOOD SPECIMENOrdering Facility: [facility] Address: [address] [place] [address] Performed By: #### 5 7021-8 ####[facility] LABORATORYCLIA [id number] [place] [address] [place] Lymphocytes (Bld) [#/Vol] 2.76 10*3/uL Normal 1.00-4.00 [facility] Comment on above: Order Comment: Speci men Type: BLOOD SPECIMENOrdering Facility: [facility] Address: [address] [place] [address] Performed By: #### 5 7021-8 ####[facility]ATORYCLIA [id number] [address] Lymphocytes/100 WBC (Bld) 28.9 % Normal [facility] Comment on above: Order Comment: Speci men Type: BLOOD SPECIMENOrdering Facility: [facility] Address: [address] [place] [address] Performed By: #### 5 7021-8 ####[facility] LABORATORYCLIA [id number] [address] [place] MCH (RBC) [Entitic mass] 26.4 pg Normal 26.0-34.0 [facility] Comment on above: Order Comment: Speci men Type: BLOOD SPECIMENOrdering Facility: [facility] Address: [address] [place] [address] Performed By: #### 5 7021-8 ####[facility] LABORATORYCLIA [id number] [address] [place] MCHC (RBC) [Mass/Vol] 33.4 g/dL Normal 30.5-36.0 [facility] Comment on above: Order Comment: Speci men Type: BLOOD SPECIMENOrdering Facility: [facility] Address: [address] [place] [address] Performed By: #### 5 7021-8 ####[facility] LABORATORYCLIA [id number] [address] STATES OF [facility] MCV (RBC) [Entitic vol] 79.0 fL Low 80.0-100.0 [facility] Comment on above: Order Comment: Speci men Type: BLOOD SPECIMENOrdering Facility: [facility] Address: [address] [place] [address] Performed By: #### 5 7021-8 ####[facility] LABORATORYCLIA [id number] [address] Monocytes (Bld) [#/Vol] 0.44 10*3/uL Normal <0.87 [facility] Comment on above: Order Comment: Speci men Type: BLOOD SPECIMENOrdering Facility: [facility] Address: [address] [place] [address] Performed By: #### 5 7021-8 ####[facility]ORATORYCLIA [id number] [place] [address] [place] Monocytes/100 WBC (Bld) 4.6 % Normal [facility] Comment on above: Order Comment: Speci men Type: BLOOD SPECIMENOrdering Facility: [facility] Address: [address] [place] [address] Performed By: #### 5 7021-8 ####[facility]ORATORYCLIA [id number] [place] [address] [place] Neutrophils (Bld) [#/Vol] 6.22 10*3/uL Normal 1.45-7.50 [facility] Comment on above: Order Comment: Speci men Type: BLOOD SPECIMENOrdering Facility: [facility] Address: [address] [place] [address] Performed By: #### 5 7021-8 ####[facility]ATORYCLIA [id number] [address] [place] Neutrophils/100 WBC (Bld) 65.2 % Normal [facility] Comment on above: Order Comment: Speci men Type: BLOOD SPECIMENOrdering Facility: [facility] Address: [address] [place] [address] Performed By: #### 5 7021-8 ####[facility]ORATORYCLIA [id number] [address] [place] Nucleated RBC (Bld) [#/Vol] 10*3/uL Normal <0.01 [facility] Comment on above: Order Comment: Speci men Type: BLOOD SPECIMENOrdering Facility: [facility] Address: [address] [place] [address] Performed By: #### 5 7021-8 ####[facility]ORATORYCLIA [id number] [address] [place] Nucleated RBC/100 WBC (Bld) [Ratio] 0.0 /100 WBC Normal [facility] Comment on above: Order Comment: Speci men Type: BLOOD SPECIMENOrdering Facility: [facility] Address: [address] [place] [address] Performed By: #### 5 7021-8 ####[facility] LABORATORYCLIA [id number] [address] [place] Platelet mean volume (Bld) [Entitic vol] 9.5 fL Normal 9.0-12.7 [facility] Comment on above: Order Comment: Speci men Type: BLOOD SPECIMENOrdering Facility: [facility] Address: [address] [place] [address] Performed By: #### 5 7021-8 ####[facility] LABORATORYCLIA [id number] [place] [address] [place] Platelets (Bld) [#/Vol] 203 10*3/uL Normal 150-400 [facility] Comment on above: Order Comment: Speci men Type: BLOOD SPECIMENOrdering Facility: [facility] Address: [address] [place] [address] Performed By: #### 5 7021-8 ####[facility] LABORATORYCLIA [id number] [place] [address] [place] RBC (Bld) [#/Vol] 4.05 10*6/uL Normal 3.90-5.20 [facility] Comment on above: Order Comment: Speci men Type: BLOOD SPECIMENOrdering Facility: [facility] Address: [address] [place] [address] Performed By: #### 5 7021-8 ####[facility] LABORATORYCLIA [id number] [address] [place] WBC (Bld) [#/Vol] 9.55 10*3/uL Normal 3.70-11.00 [facility] Comment on above: Order Comment: Speci men Type: BLOOD SPECIMENOrdering Facility: [facility] Address: [address] [place] [address] Performed By: #### 5 7021-8 ####[facility] LABORATORYCLIA [id number] [address] [place] CT BRAIN WO IVCONon 09-22-[address] BRAIN WO IVCON Normal [facility] Comprehensive metabolic 2000 panelon 09-22-2023 Albumin [Mass/Vol] 3.0 g/dL Low 3.9-4.9 [facility] Comment on above: Order Comment: Speci men Type: BLOOD SPECIMENOrdering Facility: [facility] Address: [address] [place] [address] Performed By: #### 2 4323-8, 2771, ####[facility] LABORATORYCLIA [id number] [place], [place] [id number] [place] [address] [place] [facility] ALP [Catalytic activity/Vol] 113 U/L Normal 34-123 [facility] Comment on above: Order Comment: Speci men Type: BLOOD SPECIMENOrdering Facility: [facility] Address: [address] [place] [address] Performed By: #### 2 4323-8, 27712-29, ####[facility] LABORATORYCLIA [id number] [address] [place] [facility] ALT With P-5'-P [Catalytic activity/Vol] 12 U/L Normal 7-38 [facility] Comment on above: Order Comment: Speci men Type: BLOOD SPECIMENOrdering Facility: [facility] Address: [address] [place] [address] Performed By: #### 2 4323-8, 2771, ####[facility] LABORATORYCLIA [id number] [address] [place] [facility] Anion gap [Moles/Vol] 11 mmol/L Normal 9-18 [facility] Comment on above: Order Comment: Speci men Type: BLOOD SPECIMENOrdering Facility: [facility] Address: [address] [place] [address] Performed By: #### 2 4323-8, 277-1, ####[facility] LABORATORYCLIA [id number] [place] [address] [place] AST With P-5'-P [Catalytic activity/Vol] 15 U/L Normal 13-35 [facility] Comment on above: Order Comment: Speci men Type: BLOOD SPECIMENOrdering Facility: [facility] Address: [address] [place] [address] Performed By: #### 2 4323-8, 2776-07, ####[facility] LABORATORYCLIA [id number] [place] [address] [place] Bilirubin [Mass/Vol] 0.3 mg/dL Normal 0.2-1.3 [facility] Comment on above: Order Comment: Speci men Type: BLOOD SPECIMENOrdering Facility: [facility] Address: [address] [place] [address] Performed By: #### 2 4323-8, 2776-07, ####[facility] LABORATORYCLIA [id number] [place] [address] [place] Calcium [Mass/Vol] 8.6 mg/dL Normal 8.5-10.2 [facility] Comment on above: Order Comment: Speci men Type: BLOOD SPECIMENOrdering Facility: [facility] Address: [address] [place] [address] Performed By: #### 2 4323-8, 2776-07, ####[facility] LABORATORYCLIA [id number] [place] [address] [place] Chloride [Moles/Vol] 102 mmol/L Normal 97-105 [facility] Comment on above: Order Comment: Speci men Type: BLOOD SPECIMENOrdering Facility: [facility] Address: [address] [place] [address] Performed By: #### 2 4323-8, 2776-07, ####[facility] LABORATORYCLIA [id number] [place] [address] [place] CO2 [Moles/Vol] 24 mmol/L Normal 22-30 [facility] Comment on above: Order Comment: Speci men Type: BLOOD SPECIMENOrdering Facility: [facility] Address: [address] [place] [address] Performed By: #### 2 4323-8, 2777-1, ####[facility] HOSPITALCLIA [id number] [place] [address] [place] [facility] Creatinine [Mass/Vol] 0.78 mg/dL Normal 0.58-0.96 [facility] Comment on above: Order Comment: Speci men Type: BLOOD SPECIMENOrdering Facility: [facility] Address: [address] [place] [address] Performed By: #### 2 4323-8, 2777-, ####[facility] HOSPITALIA [id number] [place] [address] [facility] Creatinine and Glomerular filtration rate.predicted panel (S/P/Bld) 84 mL/min/1.73m??? Normal >=60 [facility] Comment on above: Order Comment: Key [facility] Type: BLOOD SPECIMENOrdering Facility: [facility] Address: [address] [place] [address] Result Comment: Sewtha mated Glomerular Filtration Rate (eGFR) is calculated using the 2020 CKD-EPI creatinine equation. This equation utilizes serum creatinine, sex, and age as parameters. The creatinine assay has traceable calibration to isotope dilution-mass spectrometry. Refer to KDIGO guidelines for clinical interpretation. In patients with unstable renal function, e.g. those with acute kidney injury, the eGFR may not accurately reflect actual GFR. Performed By: #### 2 4323-8, 2777-, ####[facility] HOSPITALIA [id number] [place] [address] [place] Glucose [Mass/Vol] 153 mg/dL High 74-99 [facility] Comment on above: Order Comment: Speci men Type: BLOOD SPECIMENOrdering Facility: [facility] Address: [address] [place] [place] [id number] Result Comment: The [place] Diabetes Association (ADA) provides guidance for cutoff values for fasting glucose and random glucose. The ADA defines fasting as no caloric intake for at least 8 hours. Fasting plasma glucose results between 100 to 125 mg/dL indicate increased risk for diabetes (prediabetes).Fasting plasma glucose results greater than or equal to 126 mg/dL meet the criteria for diagnosis of diabetes. In the absence of unequivocal hyperglycemia, results should be confirmed by repeat testing. In a patient with classic symptoms of hyperglycemia or hyperglycemic crisis, random plasma glucose results greater than or equal to 200 mg/dL meet the criteria for diagnosis of diabetes.Reference: Standards of Medical Care in Diabetes 2016, [place] [employer]. Diabetes Care. 2016.39(Suppl 1). Performed By: #### 2 4323-8, 27712-29, ####[facility] LABORATORYCLIA [id number] [place] [address] [place] Potassium [Moles/Vol] 3.7 mmol/L Normal 3.7-5.1 [facility] Comment on above: Order Comment: Key albrecht Type: BLOOD SPECIMENOrdering Facility: [facility] Address: [address] [place] [address] Performed By: #### 2 4323-8, 27712-29, ####[facility] LABORATORYCLIA [id number] [place] [address] [place] Protein [Mass/Vol] 6.4 g/dL Normal 6.3-8.0 [facility] Comment on above: Order Comment: Key albrecht Type: BLOOD SPECIMENOrdering Facility: [facility] Address: [address] [place] [address] Performed By: #### 2 4323-8, 27712-29, ####[facility] LABORATORYCLIA [id number] [place] [id number] [place] Sodium [Moles/Vol] 137 mmol/L Normal 136-144 [facility] Comment on above: Order Comment: Key albrecht Type: BLOOD SPECIMENOrdering Facility: [facility] Address: [address] [place] [address] Performed By: #### 2 4323-8, 27712-29, ####[facility] LABORATORYCLIA [id number] [place] [address] [place] Urea nitrogen [Mass/Vol] 9 mg/dL Normal 7-21 [facility] Comment on above: Order Comment: Speci men Type: BLOOD SPECIMENOrdering Facility: [facility] Address: [address] [place] [address] Performed By: #### 2 4323-8, 27712-29, ####[facility] LABORATORYCLIA [id number] [place] [address] [place] Magnesium SerPl-ncon 09-21 Magnesium [Mass/Vol] 1.7 mg/dL Normal 1.7-2.3 [facility] Comment on above: Order Comment: Speci men Type: BLOOD SPECIMENOrdering Facility: [facility] Address: [address] [place] [address] Performed By: #### 2 4323-8, 27712-29, ####[facility] LABORATORYCLIA [id number] [address] STATES OF [facility] Phosphate SerPl-mCncon 09-21 Phosphate [Mass/Vol] 3.6 mg/dL Normal 2.7-4.8 [facility] Comment on above: Order Comment: Speci men Type: BLOOD SPECIMENOrdering Facility: [facility] Address: [address] [place] [address] Performed By: #### 2 4323-8, 27712-29, ####[facility] LABORATORYCLIA [id number] [place] [address] [place] CBC W Auto Differential pane l (Bld)on 09-21-2023 Basophils (Bld) [#/Vol] 10*3/uL Normal <0.11 [facility] Comment on above: Order Comment: Speci men Type: BLOOD SPECIMENOrdering Facility: [facility] Address: [address] [place] [address] Performed By: #### 5 7021-8 ####[facility] LABORATORYCLIA [id number] [address] [place] Basophils/100 WBC (Bld) 0.3 % Normal [facility] Comment on above: Order Comment: Speci men Type: BLOOD SPECIMENOrdering Facility: [facility] Address: [address] [place] [address] Performed By: #### 5 7021-8 ####[facility]ATORYCLIA [id number] [address] Differential cell count method Nom (Bld) Auto Normal [facility] Comment on above: Order Comment: Speci men Type: BLOOD SPECIMENOrdering Facility: [facility] Address: [address] [place] [address] Performed By: #### 5 7021-8 ####[facility] LABORATORYCLIA [id number] [address] Eosinophils (Bld) [#/Vol] 0.18 10*3/uL Normal <0.46 [facility] Comment on above: Order Comment: Speci men Type: BLOOD SPECIMENOrdering Facility: [facility] Address: [address] [place] [address] Performed By: #### 5 7021-8 ####[facility] LABORATORYCLIA [id number] [address] Eosinophils/100 WBC (Bld) 2.3 % Normal [facility] Comment on above: Order Comment: Speci men Type: BLOOD SPECIMENOrdering Facility: [facility] Address: [address] [place] [address] Performed By: #### 5 7021-8 ####[facility]ATORYCLIA [id number] [address] Erythrocyte distribution width (RBC) [Ratio] 13.6 % Normal 11.5-15.0 [facility] Comment on above: Order Comment: Speci men Type: BLOOD SPECIMENOrdering Facility: [facility] Address: [address] [place] [address] Performed By: #### 5 7021-8 ####[facility]ORATORYCLIA [id number] [address] [place] Hematocrit (Bld) [Volume fraction] 29.1 % Low 36.0-46.0 [facility] Comment on above: Order Comment: Speci men Type: BLOOD SPECIMENOrdering Facility: [facility] Address: [address] [place] [address] Performed By: #### 5 7021-8 ####[facility] LABORATORYCLIA [id number] [address] [place] Hemoglobin (Bld) [Mass/Vol] 9.6 g/dL Low 11.5-15.5 [facility] Comment on above: Order Comment: Speci men Type: BLOOD SPECIMENOrdering Facility: [facility] Address: [address] [place] [address] Performed By: #### 5 7021-8 ####[facility] LABORATORYCLIA [id number] [address] [place] Immature granulocytes (Bld) [#/Vol] 10*3/uL Normal <0.10 [facility] Comment on above: Order Comment: Speci men Type: BLOOD SPECIMENOrdering Facility: [facility] Address: [address] [place] [address] Performed By: #### 5 7021-8 ####[facility] LABORATORYCLIA [id number] [address] [place] Immature granulocytes/100 WBC (Bld) 0.3 % Normal [facility] Comment on above: Order Comment: Speci men Type: BLOOD SPECIMENOrdering Facility: [facility] Address: [address] [place] [address] Performed By: #### 5 7021-8 ####[facility] LABORATORYCLIA [id number] [place] [address] [place] Lymphocytes (Bld) [#/Vol] 2.06 10*3/uL Normal 1.00-4.00 [facility] Comment on above: Order Comment: Speci men Type: BLOOD SPECIMENOrdering Facility: [facility] Address: [address] [place] [address] Performed By: #### 5 7021-8 ####[facility]ATORYCLIA [id number] [address] Lymphocytes/100 WBC (Bld) 26.8 % Normal [facility] Comment on above: Order Comment: Speci men Type: BLOOD SPECIMENOrdering Facility: [facility] Address: [address] [place] [address] Performed By: #### 5 7021-8 ####[facility] LABORATORYCLIA [id number] [address] STATES OF [facility] MCH (RBC) [Entitic mass] 26.4 pg Normal 26.0-34.0 [facility] Comment on above: Order Comment: Speci men Type: BLOOD SPECIMENOrdering Facility: [facility] Address: [address] [place] [address] Performed By: #### 5 7021-8 ####[facility] LABORATORYCLIA [id number] [address] [place] MCHC (RBC) [Mass/Vol] 33.0 g/dL Normal 30.5-36.0 [facility] Comment on above: Order Comment: Speci men Type: BLOOD SPECIMENOrdering Facility: [facility] Address: [address] [place] [address] Performed By: #### 5 7021-8 ####[facility] LABORATORYCLIA [id number] [address] OF [facility] MCV (RBC) [Entitic vol] 79.9 fL Low 80.0-100.0 [facility] Comment on above: Order Comment: Speci men Type: BLOOD SPECIMENOrdering Facility: [facility] Address: [address] [place] [address] Performed By: #### 5 7021-8 ####[facility] LABORATORYCLIA [id number] [address] Monocytes (Bld) [#/Vol] 0.34 10*3/uL Normal <0.87 [facility] Comment on above: Order Comment: Speci men Type: BLOOD SPECIMENOrdering Facility: [facility] Address: [address] [place] [address] Performed By: #### 5 7021-8 ####[facility]ORATORYCLIA [id number] [address] [place] Monocytes/100 WBC (Bld) 4.4 % Normal [facility] Comment on above: Order Comment: Speci men Type: BLOOD SPECIMENOrdering Facility: [facility] Address: [address] [place] [address] Performed By: #### 5 7021-8 ####[facility]ORATORYCLIA [id number] [place] [address] [place] Neutrophils (Bld) [#/Vol] 5.07 10*3/uL Normal 1.45-7.50 [facility] Comment on above: Order Comment: Speci men Type: BLOOD SPECIMENOrdering Facility: [facility] Address: [address] [place] [address] Performed By: #### 5 7021-8 ####[facility]ORYCLIA [id number] [address] [place] Neutrophils/100 WBC (Bld) 65.9 % Normal [facility] Comment on above: Order Comment: Speci men Type: BLOOD SPECIMENOrdering Facility: [facility] Address: [address] [place] [address] Performed By: #### 5 7021-8 ####[facility]ATORYCLIA [id number] [address] [place] Nucleated RBC (Bld) [#/Vol] 10*3/uL Normal <0.01 [facility] Comment on above: Order Comment: Speci men Type: BLOOD SPECIMENOrdering Facility: [facility] Address: [address] [place] [address] Performed By: #### 5 7021-8 ####[facility] LABORATORYCLIA [id number] [address] [place] Nucleated RBC/100 WBC (Bld) [Ratio] 0.0 /100 WBC Normal [facility] Comment on above: Order Comment: Speci men Type: BLOOD SPECIMENOrdering Facility: [facility] Address: [address] [place] [address] Performed By: #### 5 7021-8 ####[facility] LABORATORYCLIA [id number] [address] [place] Platelet mean volume (Bld) [Entitic vol] 9.5 fL Normal 9.0-12.7 [facility] Comment on above: Order Comment: Speci men Type: BLOOD SPECIMENOrdering Facility: [facility] Address: [address] [place] [address] Performed By: #### 5 7021-8 ####[facility] LABORATORYCLIA [id number] [place] [address] [place] Platelets (Bld) [#/Vol] 179 10*3/uL Normal 150-400 [facility] Comment on above: Order Comment: Speci men Type: BLOOD SPECIMENOrdering Facility: [facility] Address: [address] [place] [address] Performed By: #### 5 7021-8 ####[facility] LABORATORYCLIA [id number] [place] [address] [place] RBC (Bld) [#/Vol] 3.64 10*6/uL Low 3.90-5.20 [facility] Comment on above: Order Comment: Speci men Type: BLOOD SPECIMENOrdering Facility: [facility] Address: [facility] [place] [address] Performed By: #### 5 7021-8 ####[facility] LABORATORYCLIA [id number] [address] [place] WBC (Bld) [#/Vol] 7.69 10*3/uL Normal 3.70-11.00 [facility] Comment on above: Order Comment: Speci men Type: BLOOD SPECIMENOrdering Facility: [facility] Address: [address] [place] [address] Performed By: #### 5 7021-8 ####[facility] LABORATORYCLIA [id number] [address] [place] Comprehensive metabolic 2000 panelon 09-21-2023 Albumin [Mass/Vol] 2.8 g/dL Low 3.9-4.9 [facility] Comment on above: Order Comment: Speci men Type: BLOOD SPECIMENOrdering Facility: [facility] Address: [address] [place] [address] Performed By: #### 2 4323-8, 2776-07, ####[facility] LABORATORYCLIA [id number] [place] [address] [place] ALP [Catalytic activity/Vol] 101 U/L Normal 34-123 [facility] Comment on above: Order Comment: Speci men Type: BLOOD SPECIMENOrdering Facility: [facility] Address: [address] [place] [address] Performed By: #### 2 4323-8, 2776-07, ####[facility] LABORATORYCLIA [id number] [place] [address] [place] ALT With P-5'-P [Catalytic activity/Vol] 10 U/L Normal 7-38 [facility] Comment on above: Order Comment: Speci men Type: BLOOD SPECIMENOrdering Facility: [facility] Address: [address] [place] [address] Performed By: #### 2 4323-8, 2776-07, ####[facility] LABORATORYCLIA [id number] [place] [address] [place] [facility] Anion gap [Moles/Vol] 6 mmol/L Low 9-18 [facility] Comment on above: Order Comment: Speci men Type: BLOOD SPECIMENOrdering Facility: [facility] Address: [address] [place] [address] Performed By: #### 2 4323-8, 2776-07, ####[facility] LABORATORYCLIA [id number] [place] [address] [place] AST With P-5'-P [Catalytic activity/Vol] 13 U/L Normal 13-35 [facility] Comment on above: Order Comment: Speci men Type: BLOOD SPECIMENOrdering Facility: [facility] Address: [address] [place] [address] Performed By: #### 2 4323-8, 2776-07, ####[facility] LABORATORYCLIA [id number] [place] [address] [place] Bilirubin [Mass/Vol] mg/dL Low 0.2-1.3 [facility] Comment on above: Order Comment: Speci men Type: BLOOD SPECIMENOrdering Facility: [facility] Address: [address] [place] [address] Performed By: #### 2 4323-8, 2776-07, ####[facility] LABORATORYCLIA [id number] [place] [address] [place] Calcium [Mass/Vol] 8.5 mg/dL Normal 8.5-10.2 [facility] Comment on above: Order Comment: Speci men Type: BLOOD SPECIMENOrdering Facility: [facility] Address: [address] [place] [address] Performed By: #### 2 4323-8, 2776-07, ####[facility]ORATORYCLIA [id number] [place] [address] [place] Chloride [Moles/Vol] 104 mmol/L Normal 97-105 [facility] Comment on above: Order Comment: Speci men Type: BLOOD SPECIMENOrdering Facility: [facility] Address: [address] [place] [address] Performed By: #### 2 4323-8, 2776-07, ####[facility]ORATORYCLIA [id number] [place] [address] [place] CO2 [Moles/Vol] 25 mmol/L Normal 22-30 [facility] Comment on above: Order Comment: Speci men Type: BLOOD SPECIMENOrdering Facility: [facility] Address: [address] [place] [address] Performed By: #### 2 4323-8, 2776-07, ####[facility]ORATORYCLIA [id number] [place] [address] [place] [facility] Creatinine [Mass/Vol] 0.84 mg/dL Normal 0.58-0.96 [facility] Comment on above: Order Comment: Key albrecht Type: BLOOD SPECIMENOrdering Facility: [facility] Address: [address] [place] [address] Performed By: #### 2 4323-8, 2777-1, ####[facility] HOSPITALIA [id number] [place] [id number] [facility] Creatinine and Glomerular filtration rate.predicted panel (S/P/Bld) 77 mL/min/1.73m??? Normal >=60 [facility] Comment on above: Order Comment: Key albrecht Type: BLOOD SPECIMENOrdering Facility: [facility] Address: [address] [place] [address] Result Comment: Swetha mated Glomerular Filtration Rate (eGFR) is calculated using the 2020 CKD-EPI creatinine equation. This equation utilizes serum creatinine, sex, and age as parameters. The creatinine assay has traceable calibration to isotope dilution-mass spectrometry. Refer to KDIGO guidelines for clinical interpretation. In patients with unstable renal function, e.g. those with acute kidney injury, the eGFR may not accurately reflect actual GFR. Performed By: #### 2 4323-8, 2777-, ####[facility] HOSPITALIA [id number] [place] [address] [facility] Glucose [Mass/Vol] 249 mg/dL High 74-99 [facility] Comment on above: Order Comment: Key albrecht Type: BLOOD SPECIMENOrdering Facility: [facility] Address: [address] [place] [address] Result Comment: The [place] Diabetes Association (ADA) provides guidance for cutoff values for fasting glucose and random glucose. The ADA defines fasting as no caloric intake for at least 8 hours. Fasting plasma glucose results between 100 to 125 mg/dL indicate increased risk for diabetes (prediabetes).Fasting plasma glucose results greater than or equal to 126 mg/dL meet the criteria for diagnosis of diabetes. In the absence of unequivocal hyperglycemia, results should be confirmed by repeat testing. In a patient with classic symptoms of hyperglycemia or hyperglycemic crisis, random plasma glucose results greater than or equal to 200 mg/dL meet the criteria for diagnosis of diabetes.Reference: Standards of Medical Care in Diabetes 2016, [place] [employer]. Diabetes Care. 2016.39(Suppl 1). Performed By: #### 2 4323-8, 2776-07, ####[facility] LABORATORYCLIA [id number] [place] [address] [place] Potassium [Moles/Vol] 4.2 mmol/L Normal 3.7-5.1 [facility] Comment on above: Order Comment: Speci men Type: BLOOD SPECIMENOrdering Facility: [facility] Address: [address] [place] [address] Performed By: #### 2 4323-8, 2776-07, ####[facility] LABORATORYCLIA [id number] [place] [address] [place] Protein [Mass/Vol] 5.9 g/dL Low 6.3-8.0 [facility] Comment on above: Order Comment: Speci men Type: BLOOD SPECIMENOrdering Facility: [facility] Address: [address] [place] [address] Performed By: #### 2 4323-8, 2776-07, ####[facility] LABORATORYCLIA [id number] [place] [address] [place] Sodium [Moles/Vol] 135 mmol/L Low 136-144 [facility] Comment on above: Order Comment: Speci men Type: BLOOD SPECIMENOrdering Facility: [facility] Address: [address] [place] [address] Performed By: #### 2 4323-8, 2776-07, ####[facility] LABORATORYCLIA [id number] [place] [id number] [place] Urea nitrogen [Mass/Vol] 11 mg/dL Normal 7-21 [facility] Comment on above: Order Comment: Speci men Type: BLOOD SPECIMENOrdering Facility: [facility] Address: [address] [place] [address] Performed By: #### 2 4323-8, 27712-29, ####[facility] LABORATORYCLIA [id number] [place] [address] [place] Magnesium SerPl-mCncon 09-20 Magnesium [Mass/Vol] 2.0 mg/dL Normal 1.7-2.3 [facility] Comment on above: Order Comment: Speci men Type: BLOOD SPECIMENOrdering Facility: [facility] Address: [address] [place] [address] Performed By: #### 2 4323-8, 27712-29, ####[facility] LABORATORYCLIA [id number] [address] [place] Phosphate SerPl-mCncon 09-20 Phosphate [Mass/Vol] 4.3 mg/dL Normal 2.7-4.8 [facility] Comment on above: Order Comment: Speci men Type: BLOOD SPECIMENOrdering Facility: [facility] Address: [address] [place] [address] Performed By: #### 2 4323-8, 27712-29, ####[facility] LABORATORYCLIA [id number] [address] [place] THERAPY NTon 09-21-2023 THERAPY NT Normal [facility] ARTERIAL BLOOD GASESon 09-19 Base excess Calc (Bld) [Moles/Vol] 1 mmol/L Normal 0-2 [facility] Comment on above: Order Comment: Speci men Type: ARTERIAL BLOOD SPECIMENOrdering Facility: [facility] Address: [address] [place] [address] Performed By: #### A LLBG ####[facility] LABORATORYCLIA [id number] [address] [place] Body temperature 97.88 [degF] Normal [facility] Comment on above: Order Comment: Speci men Type: ARTERIAL BLOOD SPECIMENOrdering Facility: [facility] Address: [address] [place] [address] Performed By: #### A LLBG ####[facility] LABORATORYCLIA [id number] [address] Calcium.ionized (BldV) [Mass/Vol] 1.16 mmol/L Normal 1.08-1.30 [facility] Comment on above: Order Comment: Speci men Type: ARTERIAL BLOOD SPECIMENOrdering Facility: [facility] Address: [address] [place] [address] Performed By: #### A LLBG ####[facility] LABORATORYCLIA [id number] [address] Calcium.ionized adjusted to pH 7.4 (BldA) [Moles/Vol] 1.19 mmol/L Normal 1.08-1.30 [facility] Comment on above: Order Comment: Speci men Type: ARTERIAL BLOOD SPECIMENOrdering Facility: [facility] Address: [address] [place] [address] Performed By: #### A LLBG ####[facility] LABORATORYCLIA [id number] [address] Carboxyhemoglobin (BldA) [Mass fraction] 1.6 % Normal 0.0-2.0 [facility] Comment on above: Order Comment: Speci men Type: ARTERIAL BLOOD SPECIMENOrdering Facility: [facility] Address: [address] [place] [address] Result Comment: Carb oxyhemoglobin Reference Range for Smokers: 2.0-8.0% Performed By: #### A LLBG ####[facility] LABORATORYCLIA [id number] [address] [place] Chloride [Moles/Vol] 110 mmol/L High 102-109 [facility] Comment on above: Order Comment: Speci men Type: ARTERIAL BLOOD SPECIMENOrdering Facility: [facility] Address: [address] [place] [address] Performed By: #### A LLBG ####[facility] LABORATORYCLIA [id number] [address] [place] CO2 (Bld) [Partial pressure] 37 mm Hg Normal 36-46 [facility] Comment on above: Order Comment: Speci men Type: ARTERIAL BLOOD SPECIMENOrdering Facility: [facility] Address: [address] [place] [address] Performed By: #### A LLBG ####[facility]ORATORYCLIA [id number] [address] CO2 adjusted to patient's actual temperature (Bld) [Partial pressure] 36 mmHg Normal 36-46 [facility] Comment on above: Order Comment: Speci men Type: ARTERIAL BLOOD SPECIMENOrdering Facility: [facility] Address: [address] [place] [address] Performed By: #### A LLBG ####[facility] LABORATORYCLIA [id number] [address] FIO2 40 % Normal [facility] Comment on above: Order Comment: Speci men Type: ARTERIAL BLOOD SPECIMENOrdering Facility: [facility] Address: [address] [place] [address] Performed By: #### A LLBG ####[facility] LABORATORYCLIA [id number] [address] [place] Glucose [Mass/Vol] 216 mg/dL High 60-105 [facility] Comment on above: Order Comment: Speci men Type: ARTERIAL BLOOD SPECIMENOrdering Facility: [facility] Address: [address] [place] [address] Performed By: #### A LLBG ####[facility]ORATORYCLIA [id number] [address] [place] HCO3 (Bld) [Moles/Vol] 24 mmol/L Normal 22-26 [facility] Comment on above: Order Comment: Speci men Type: ARTERIAL BLOOD SPECIMENOrdering Facility: [facility] Address: [address] [place] [address] Performed By: #### A LLBG ####[facility]ATORYCLIA [id number] [address] [place] Hematocrit (Bld) [Volume fraction] 30.0 % Low 36.0-46.0 [facility] Comment on above: Order Comment: Speci men Type: ARTERIAL BLOOD SPECIMENOrdering Facility: [facility] Address: [address] [place] [address] Performed By: #### A LLBG ####[facility] LABORATORYCLIA [id number] [address] [place] Hemoglobin (Bld) [Mass/Vol] 9.7 g/dL Low 11.5-15.5 [facility] Comment on above: Order Comment: Speci men Type: ARTERIAL BLOOD SPECIMENOrdering Facility: [facility] Address: [address] [place] [address] Performed By: #### A LLBG ####[facility] LABORATORYCLIA [id number] [address] INVASIVE VENTILATOR MODE Pressure Support, CPAP (PC-CSVs) Normal [facility] Comment on above: Order Comment: Speci men Type: ARTERIAL BLOOD SPECIMENOrdering Facility: [facility] Address: [address] [place] [address] Performed By: #### A LLBG ####[facility] LABORATORYCLIA [id number] [address] Lactate [Moles/Vol] 1.0 mmol/L Normal 0.5-2.2 [facility] Comment on above: Order Comment: Speci men Type: ARTERIAL BLOOD SPECIMENOrdering Facility: [facility] Address: [address] [place] [address] Performed By: #### A LLBG ####[facility] LABORATORYCLIA [id number] [address] [place] Methemoglobin (Bld) [Mass fraction] 0.6 % Normal 0.0-1.5 [facility] Comment on above: Order Comment: Speci men Type: ARTERIAL BLOOD SPECIMENOrdering Facility: [facility] Address: [address] [place] [address] Performed By: #### A LLBG ####[facility] [facility]ORATORYCLIA [id number] [address] [place] O2 THERAPY Ventilator Normal [facility] Comment on above: Order Comment: Speci men Type: ARTERIAL BLOOD SPECIMENOrdering Facility: [facility] Address: [address] [place] [address] Performed By: #### A LLBG ####[facility] LABORATORYCLIA [id number] [address] [place] Oxygen (Bld) [Partial pressure] 97 mm Hg High 85-95 [facility] Comment on above: Order Comment: Speci men Type: ARTERIAL BLOOD SPECIMENOrdering Facility: [facility] Address: [address] [place] [address] Performed By: #### A LLBG ####[facility] LABORATORYCLIA [id number] [address] Oxygen adjusted to patient's actual temperature (Bld) [Partial pressure] 95 mmHg Normal 85-95 [facility] Comment on above: Order Comment: Speci men Type: ARTERIAL BLOOD SPECIMENOrdering Facility: [facility] Address: [address] [place] [address] Performed By: #### A LLBG ####[facility] LABORATORYCLIA [id number] [address] [place] Oxyhemoglobin (BldA) [Mass fraction] 96 % Normal 95-98 [facility] Comment on above: Order Comment: Speci men Type: ARTERIAL BLOOD SPECIMENOrdering Facility: [facility] Address: [address] [place] [address] Performed By: #### A LLBG ####[facility] LABORATORYCLIA [id number] [address] [place] pH (Bld) 7.44 [pH] Normal 7.35-7.45 [facility] Comment on above: Order Comment: Speci men Type: ARTERIAL BLOOD SPECIMENOrdering Facility: [facility] Address: [address] [place] [address] Performed By: #### A LLBG ####[facility] [facility]ORATORYCLIA [id number] [address] pH adjusted to patient's actual temperature (Bld) 7.45 Normal 7.35-7.45 [facility] Comment on above: Order Comment: Speci men Type: ARTERIAL BLOOD SPECIMENOrdering Facility: [facility] Address: [address] [place] [address] Performed By: #### A LLBG ####[facility] LABORATORYCLIA [id number] [address] PO2 / FIO2 RATIO 243 mmHg Low >300 [facility] Comment on above: Order Comment: Speci men Type: ARTERIAL BLOOD SPECIMENOrdering Facility: [facility] Address: [address] [place] [address] Performed By: #### A LLBG ####[facility] LABORATORYCLIA [id number] [address] STATES [facility] Potassium [Moles/Vol] 4.1 mmol/L Normal 3.5-5.0 [facility] Comment on above: Order Comment: Speci men Type: ARTERIAL BLOOD SPECIMENOrdering Facility: [facility] Address: [address] [place] [address] Performed By: #### A LLBG ####[facility] LABORATORYCLIA [id number] [address] [place] Sodium [Moles/Vol] 137 mmol/L Normal 136-144 [facility] Comment on above: Order Comment: Speci men Type: ARTERIAL BLOOD SPECIMENOrdering Facility: [facility] Address: [address] [place] [address] Performed By: #### A LLBG ####[facility] LABORATORYCLIA [id number] [address] [place] CASE MANAGEMon 09-20-2023 CASE MANAGEM Normal [facility] CBC W Auto Differential pane l (Bld)on 09-20-2023 Basophils (Bld) [#/Vol] 0.03 10*3/uL Normal <0.11 [facility] Comment on above: Order Comment: Speci men Type: BLOOD SPECIMENOrdering Facility: [facility] Address: [address] [place] [address] Performed By: #### 5 7021-8 ####[facility] [facility]ORATORYCLIA [id number] [address] Basophils/100 WBC (Bld) 0.4 % Normal [facility] Comment on above: Order Comment: Speci men Type: BLOOD SPECIMENOrdering Facility: [facility] Address: [address] [place] [address] Performed By: #### 5 7021-8 ####[facility] [facility]ORATORYCLIA [id number] [address] Differential cell count method Nom (Bld) Auto Normal [facility] Comment on above: Order Comment: Speci men Type: BLOOD SPECIMENOrdering Facility: [facility] Address: [address] [place] [address] Performed By: #### 5 7021-8 ####[facility]ORATORYCLIA [id number] [address] [place] Eosinophils (Bld) [#/Vol] 0.14 10*3/uL Normal <0.46 [facility] Comment on above: Order Comment: Speci men Type: BLOOD SPECIMENOrdering Facility: [facility] Address: [address] [place] [address] Performed By: #### 5 7021-8 ####[facility]ORATORYCLIA [id number] [address] Eosinophils/100 WBC (Bld) 1.7 % Normal [facility] Comment on above: Order Comment: Speci men Type: BLOOD SPECIMENOrdering Facility: [facility] Address: [address] [place] [address] Performed By: #### 5 7021-8 ####[facility]ORATORYCLIA [id number] [address] [place] Erythrocyte distribution width (RBC) [Ratio] 14.0 % Normal 11.5-15.0 [facility] Comment on above: Order Comment: Speci men Type: BLOOD SPECIMENOrdering Facility: [facility] Address: [address] [place] [address] Performed By: #### 5 7021-8 ####[facility] LABORATORYCLIA [id number] [address] [place] Hematocrit (Bld) [Volume fraction] 29.8 % Low 36.0-46.0 [facility] Comment on above: Order Comment: Speci men Type: BLOOD SPECIMENOrdering Facility: [facility] Address: [address] [place] [address] Performed By: #### 5 7021-8 ####[facility] LABORATORYCLIA [id number] [address] [place] Hemoglobin (Bld) [Mass/Vol] 9.8 g/dL Low 11.5-15.5 [facility] Comment on above: Order Comment: Speci men Type: BLOOD SPECIMENOrdering Facility: [facility] Address: [address] [place] [address] Performed By: #### 5 7021-8 ####[facility] LABORATORYCLIA [id number] [address] [place] Immature granulocytes (Bld) [#/Vol] 0.05 10*3/uL Normal <0.10 [facility] Comment on above: Order Comment: Speci men Type: BLOOD SPECIMENOrdering Facility: [facility] Address: [address] [place] [address] Performed By: #### 5 7021-8 ####[facility] LABORATORYCLIA [id number] [address] [place] Immature granulocytes/100 WBC (Bld) 0.6 % Normal [facility] Comment on above: Order Comment: Speci men Type: BLOOD SPECIMENOrdering Facility: [facility] Address: [address] [place] [address] Performed By: #### 5 7021-8 ####[facility] LABORATORYCLIA [id number] [place] [address] [place] Lymphocytes (Bld) [#/Vol] 2.11 10*3/uL Normal 1.00-4.00 [facility] Comment on above: Order Comment: Speci men Type: BLOOD SPECIMENOrdering Facility: [facility] Address: [address] [place] [address] Performed By: #### 5 7021-8 ####[facility] LABORATORYCLIA [id number] [address] Lymphocytes/100 WBC (Bld) 26.0 % Normal [facility] Comment on above: Order Comment: Speci men Type: BLOOD SPECIMENOrdering Facility: [facility] Address: [address] [place] [address] Performed By: #### 5 7021-8 ####[facility] LABORATORYCLIA [id number] [address] STATES OF [facility] MCH (RBC) [Entitic mass] 26.0 pg Normal 26.0-34.0 [facility] Comment on above: Order Comment: Speci men Type: BLOOD SPECIMENOrdering Facility: [facility] Address: [address] [place] [address] Performed By: #### 5 7021-8 ####[facility] LABORATORYCLIA [id number] [address] MCHC (RBC) [Mass/Vol] 32.9 g/dL Normal 30.5-36.0 [facility] Comment on above: Order Comment: Speci men Type: BLOOD SPECIMENOrdering Facility: [facility] Address: [address] [place] [address] Performed By: #### 5 7021-8 ####[facility] LABORATORYCLIA [id number] [address] STATES [facility] MCV (RBC) [Entitic vol] 79.0 fL Low 80.0-100.0 [facility] Comment on above: Order Comment: Speci men Type: BLOOD SPECIMENOrdering Facility: [facility] Address: [address] [place] [address] Performed By: #### 5 7021-8 ####[facility]ORATORYCLIA [id number] [place] [address] [place] Monocytes (Bld) [#/Vol] 0.41 10*3/uL Normal <0.87 [facility] Comment on above: Order Comment: Speci men Type: BLOOD SPECIMENOrdering Facility: [facility] Address: [address] [place] [address] Performed By: #### 5 7021-8 ####[facility]ORATORYCLIA [id number] [place] [address] [place] Monocytes/100 WBC (Bld) 5.0 % Normal [facility] Comment on above: Order Comment: Speci men Type: BLOOD SPECIMENOrdering Facility: [facility] Address: [address] [place] [address] Performed By: #### 5 7021-8 ####[facility]ORATORYCLIA [id number] [address] [place] Neutrophils (Bld) [#/Vol] 5.39 10*3/uL Normal 1.45-7.50 [facility] Comment on above: Order Comment: Speci men Type: BLOOD SPECIMENOrdering Facility: [facility] Address: [address] [place] [address] Performed By: #### 5 7021-8 ####[facility]ORATORYCLIA [id number] [address] [place] Neutrophils/100 WBC (Bld) 66.3 % Normal [facility] Comment on above: Order Comment: Speci men Type: BLOOD SPECIMENOrdering Facility: [facility] Address: [address] [place] [address] Performed By: #### 5 7021-8 ####[facility]ORATORYCLIA [id number] [place] [address] [place] Nucleated RBC (Bld) [#/Vol] 10*3/uL Normal <0.01 [facility] Comment on above: Order Comment: Speci men Type: BLOOD SPECIMENOrdering Facility: [facility] Address: [address] [place] [address] Performed By: #### 5 7021-8 ####[facility] LABORATORYCLIA [id number] [address] [place] Nucleated RBC/100 WBC (Bld) [Ratio] 0.0 /100 WBC Normal [facility] Comment on above: Order Comment: Speci men Type: BLOOD SPECIMENOrdering Facility: [facility] Address: [address] [place] [address] Performed By: #### 5 7021-8 ####[facility] LABORATORYCLIA [id number] [address] [place] Platelet mean volume (Bld) [Entitic vol] 9.2 fL Normal 9.0-12.7 [facility] Comment on above: Order Comment: Speci men Type: BLOOD SPECIMENOrdering Facility: [facility] Address: [address] [place] [address] Performed By: #### 5 7021-8 ####[facility] LABORATORYCLIA [id number] [address] [place] Platelets (Bld) [#/Vol] 176 10*3/uL Normal 150-400 [facility] Comment on above: Order Comment: Speci men Type: BLOOD SPECIMENOrdering Facility: [facility] Address: [address] [place] [address] Performed By: #### 5 7021-8 ####[facility] LABORATORYCLIA [id number] [place] [address] [place] RBC (Bld) [#/Vol] 3.77 10*6/uL Low 3.90-5.20 [facility] Comment on above: Order Comment: Speci men Type: BLOOD SPECIMENOrdering Facility: [facility] Address: [address] [place] [address] Performed By: #### 5 7021-8 ####[facility] LABORATORYCLIA [id number] [address] [place] WBC (Bld) [#/Vol] 8.13 10*3/uL Normal 3.70-11.00 [facility] Comment on above: Order Comment: Speci men Type: BLOOD SPECIMENOrdering Facility: [facility] Address: [address] [place] [address] Performed By: #### 5 7021-8 ####[facility] LABORATORYCLIA [id number] [place], [place] [id number] [place] [address] [place] CONSULT PROGon 09-20-2023 CONSULT PROG Normal [facility] Comprehensive metabolic 2000 panelon 09-20-2023 Albumin [Mass/Vol] 2.8 g/dL Low 3.9-4.9 [facility] Comment on above: Order Comment: Speci men Type: BLOOD SPECIMENOrdering Facility: [facility] Address: [address] [place] [address] Performed By: #### 2 777-1, , ####[facility] LABORATORYCLIA [id number] [address] [place] ALP [Catalytic activity/Vol] 89 U/L Normal 34-123 [facility] Comment on above: Order Comment: Speci men Type: BLOOD SPECIMENOrdering Facility: [facility] Address: [address] [place] [address] Performed By: #### 2 777-1, , ####[facility] LABORATORYCLIA [id number] [place] [address] [place] ALT With P-5'-P [Catalytic activity/Vol] 8 U/L Normal 7-38 [facility] Comment on above: Order Comment: Speci men Type: BLOOD SPECIMENOrdering Facility: [facility] Address: [address] [place] [address] Performed By: #### 2 777-1, , ####[facility] LABORATORYCLIA [id number] [address] [place] Anion gap [Moles/Vol] 7 mmol/L Low 9-18 [facility] Comment on above: Order Comment: Speci men Type: BLOOD SPECIMENOrdering Facility: [facility] Address: [address] [place] [address] Performed By: #### 2 777-1, , ####[facility] LABORATORYCLIA [id number] [place] [address] [place] AST With P-5'-P [Catalytic activity/Vol] 11 U/L Low 13-35 [facility] Comment on above: Order Comment: Speci men Type: BLOOD SPECIMENOrdering Facility: [facility] Address: [address] [place] [address] Performed By: #### 2 777-1, , ####[facility] LABORATORYCLIA [id number] [place] [address] [place] Bilirubin [Mass/Vol] mg/dL Low 0.2-1.3 [facility] Comment on above: Order Comment: Speci men Type: BLOOD SPECIMENOrdering Facility: [facility] Address: [address] [place] [address] Performed By: #### 2 777-1, , ####[facility] LABORATORYCLIA [id number] [place] [address] [place] Calcium [Mass/Vol] 8.2 mg/dL Low 8.5-10.2 [facility] Comment on above: Order Comment: Speci men Type: BLOOD SPECIMENOrdering Facility: [facility] Address: [address] [place] [address] Performed By: #### 2 777-1, , ####[facility] LABORATORYCLIA [id number] [place] [address] [place] Chloride [Moles/Vol] 104 mmol/L Normal 97-105 [facility] Comment on above: Order Comment: Speci men Type: BLOOD SPECIMENOrdering Facility: [facility] Address: [address] [place] [address] Performed By: #### 2 777-1, , ####[facility] LABORATORYCLIA [id number] [place] [address] [place] CO2 [Moles/Vol] 25 mmol/L Normal 22-30 [facility] Comment on above: Order Comment: Speci men Type: BLOOD SPECIMENOrdering Facility: [facility] Address: [address] [place] [address] Performed By: #### 2 777-1, , ####[facility] LABORATORYCLIA [id number] [place] [id number] [place] Creatinine [Mass/Vol] 0.82 mg/dL Normal 0.58-0.96 [facility] Comment on above: Order Comment: Speci men Type: BLOOD SPECIMENOrdering Facility: [facility] Address: [address] [place] [address] Performed By: #### 2 777-1, , ####[facility] HOSPITALCLIA [id number] [address] STATES OF [facility] Creatinine and Glomerular filtration rate.predicted panel (S/P/Bld) 79 mL/min/1.73m??? Normal >=60 [facility] Comment on above: Order Comment: Speci men Type: BLOOD SPECIMENOrdering Facility: [facility] Address: [address] [place] [address] Result Comment: Swetha mated Glomerular Filtration Rate (eGFR) is calculated using the 2020 CKD-EPI creatinine equation. This equation utilizes serum creatinine, sex, and age as parameters. The creatinine assay has traceable calibration to isotope dilution-mass spectrometry. Refer to KDIGO guidelines for clinical interpretation. In patients with unstable renal function, e.g. those with acute kidney injury, the eGFR may not accurately reflect actual GFR. Performed By: #### 2 777-1, , ####[facility] LABORATORYCLIA [id number] [place] [id number] [place] Glucose [Mass/Vol] 239 mg/dL High 74-99 [facility] Comment on above: Order Comment: Speci men Type: BLOOD SPECIMENOrdering Facility: [facility] Address: [address] [place] [address] Result Comment: The [place] Diabetes Association (ADA) provides guidance for cutoff values for fasting glucose and random glucose. The ADA defines fasting as no caloric intake for at least 8 hours. Fasting plasma glucose results between 100 to 125 mg/dL indicate increased risk for diabetes (prediabetes).Fasting plasma glucose results greater than or equal to 126 mg/dL meet the criteria for diagnosis of diabetes. In the absence of unequivocal hyperglycemia, results should be confirmed by repeat testing. In a patient with classic symptoms of hyperglycemia or hyperglycemic crisis, random plasma glucose results greater than or equal to 200 mg/dL meet the criteria for diagnosis of diabetes.Reference: Standards of Medical Care in Diabetes 2016, [place] [employer]. Diabetes Care. 2016.39(Suppl 1). Performed By: #### 2 777-1, , ####[facility] LABORATORYCLIA [id number] [place] [address] [place] Potassium [Moles/Vol] 3.5 mmol/L Low 3.7-5.1 [facility] Comment on above: Order Comment: Key ambrocio Type: BLOOD SPECIMENOrdering Facility: [facility] Address: [address] [place] [address] Performed By: #### 2 777-1, , ####[facility] LABORATORYCLIA [id number] [place] [address] [place] Protein [Mass/Vol] 5.8 g/dL Low 6.3-8.0 [facility] Comment on above: Order Comment: Rigobertoi men Type: BLOOD SPECIMENOrdering Facility: [facility] Address: [address] [place], [place] [address] Performed By: #### 2 777-1, , ####[facility] LABORATORYCLIA [id number] [place] [address] [place] Sodium [Moles/Vol] 136 mmol/L Normal 136-144 [facility] Comment on above: Order Comment: Speci men Type: BLOOD SPECIMENOrdering Facility: [facility] Address: [address] [place] [address] Performed By: #### 2 777-1, , ####[facility] LABORATORYCLIA [id number] [place] [id number] [place] Urea nitrogen [Mass/Vol] 9 mg/dL Normal 7-21 [facility] Comment on above: Order Comment: Speci men Type: BLOOD SPECIMENOrdering Facility: [facility] Address: [address] [place] [address] Performed By: #### 2 777-1, , ####[facility] LABORATORYCLIA [id number] [place] [address] [place] Magnesium SerPl-mCncon 09-19 Magnesium [Mass/Vol] 1.8 mg/dL Normal 1.7-2.3 [facility] Comment on above: Order Comment: Speci men Type: BLOOD SPECIMENOrdering Facility: [facility] Address: [address] [place] [address] Performed By: #### 2 777-1, , ####[facility] LABORATORYCLIA [id number] [place] [address] [place] Phosphate SerPl-mCncon 09-19 Phosphate [Mass/Vol] 2.9 mg/dL Normal 2.7-4.8 [facility] Comment on above: Order Comment: Speci men Type: BLOOD SPECIMENOrdering Facility: [facility] Address: [address] [place] [address] Performed By: #### 2 777-1, , 22980-9 ####[facility] LABORATORYCLIA [id number] [place] [address] [place] Vancomycin random [Mass/Vol] on 09-20-2023 Vancomycin [Mass/Vol] 14.4 ug/mL Normal 10.0-20.0 [facility] Comment on above: Order Comment: Speci men Type: BLOOD SPECIMENOrdering Facility: [facility] Address: [address] [place] [address] Result Comment: Refe rence ranges and high/low indicator flags are provided as general guidelines only. The treating physician must determine appropriate target levels/dosing based on the specific clinical situation. Performed By: #### 4 091-5 ####[facility] LABORATORYCLIA [id number] [place] [address] [place] XR CHEST 1V FRONTALon 2023 XR CHEST 1V FRONTAL Normal [facility] ALLIED HEALTHon 09-19-2023 ALLIED HEALTH Normal [facility] ANGIOTEN CON ENZ, CSFon 08-30 ANGIOTENSIN CONVERTING ENZYME, CSF <0.4 Normal 0.0-2.5 [facility] Comment on above: Order Comment: Key albrecht Type: CEREBROSPINAL FLUID SPECIMENOrdering Facility: [facility] Address: [address] [place] [address] Result Comment: This test was developed and its performance characteristicsdetermined by [employer]. It has not been cleared orapproved by the [place] Food and Drug Administration. This test wasperformed in a CLIA certified laboratory and is intended forclinical purposes.Performed By: [employer] [place] [id number] Director: Jay Gary MD, PhDCLIA Number: [id number] Performed By: #### C DELGADO ####[facility] LABORATORIESIA [id number] [place] [address] AUTOIMMUNE ENCEPHALOPATHY EV ALUATION, CSFon 09-19-2023 AMPA-RECEPTOR AB CBA, CSF Negative Normal Negative [facility] Comment on above: Order Comment: Key albrecht Type: CEREBROSPINAL FLUID SPECIMENOrdering Facility: [facility] Address: [address] [place] [address] Result Comment: ---- ADDITIONAL INFORMATION This test was developed and its performance characteristicsdetermined by [facility] in a manner consistent with CLIArequirements. This test has not been cleared or approved bythe U.S. Food and Drug Administration. Performed By: #### E NCCSF ####[facility] LABCLIA [id number] [place] [address] AMPHIPHYSIN AB, CSF Negative Normal Negative [facility] Comment on above: Order Comment: Key albrecht Type: CEREBROSPINAL FLUID SPECIMENOrdering Facility: [facility] Address: [address] [place] [address] Result Comment: ---- ADDITIONAL INFORMATION This test was developed and its performance characteristicsdetermined by [facility] in a manner consistent with CLIArequirements. This test has not been cleared or approved bythe U.S. Food and Drug Administration. Performed By: #### E NCCSF ####[facility] LABCLIA [id number] [place] [address] ANTI-GLIAL NUCLEAR AB TYPE 1, CSF Negative Normal Negative [facility] Comment on above: Order Comment: Key albrecht Type: CEREBROSPINAL FLUID SPECIMENOrdering Facility: [facility] Address: [address] [place] [address] Result Comment: ---- ADDITIONAL INFORMATION This test was developed and its performance characteristicsdetermined by [facility] in a manner consistent with CLIArequirements. This test has not been cleared or approved bythe U.S. Food and Drug Administration. Performed By: #### E NCCSF ####[facility] LABCLIA [id number] [place] [address] ANTI-NEURONAL AB TYPE 1, CSF Negative Normal Negative [facility] Comment on above: Order Comment: Key [facility] Type: CEREBROSPINAL FLUID SPECIMENOrdering Facility: [facility] Address: [address] [place] [address] Result Comment: ---- ADDITIONAL INFORMATION This test was developed and its performance characteristicsdetermined by [facility] in a manner consistent with CLIArequirements. This test has not been cleared or approved bythe U.S. Food and Drug Administration. Performed By: #### E NCCSF ####[facility] LABCLIA [id number] [place] [address] ANTI-NEURONAL AB TYPE 2, CSF Negative Normal Negative [facility] Comment on above: Order Comment: Key albrecht Type: CEREBROSPINAL FLUID SPECIMENOrdering Facility: [facility] Address: [address] [place] [address] Result Comment: ---- ADDITIONAL INFORMATION This test was developed and its performance characteristicsdetermined by [facility] in a manner consistent with CLIArequirements. This test has not been cleared or approved bythe U.S. Food and Drug Administration. Performed By: #### E NCCSF ####[facility] LABCLIA [id number] [place] [address] ANTI-NEURONAL AB TYPE 3, CSF Negative Normal Negative [facility] Comment on above: Order Comment: Key [facility] Type: CEREBROSPINAL FLUID SPECIMENOrdering Facility: [facility] Address: [address] [place] [address] Result Comment: ---- ADDITIONAL INFORMATION This test was developed and its performance characteristicsdetermined by [facility] in a manner consistent with CLIArequirements. This test has not been cleared or approved bythe U.S. Food and Drug Administration. Performed By: #### E NCCSF ####[facility] LABCLIA [id number] [place] [address] CASPR2 IGG, CSF Negative Normal Negative [facility] Comment on above: Order Comment: Key albrecht Type: CEREBROSPINAL FLUID SPECIMENOrdering Facility: [facility] Address: [address] [place] [address] Result Comment: ---- ADDITIONAL INFORMATION This test was developed and its performance characteristicsdetermined by [facility] in a manner consistent with CLIArequirements. This test has not been cleared or approved bythe U.S. Food and Drug Administration. Performed By: #### E NCCSF ####[facility] LABCLIA [id number] [place] [address] CRMP-5 IGG, CSF Negative Normal Negative [facility] Comment on above: Order Comment: Key albrecht Type: CEREBROSPINAL FLUID SPECIMENOrdering Facility: [facility] Address: [address] [place] [address] Result Comment: ---- ADDITIONAL INFORMATION This test was developed and its performance characteristicsdetermined by [facility] in a manner consistent with CLIArequirements. This test has not been cleared or approved bythe U.S. Food and Drug Administration. Performed By: #### E NCCSF ####[facility] LABCLIA [id number] [place] [address] DPPX AB IFA, CSF Negative Normal Negative [facility] Comment on above: Order Comment: Key albrecht Type: CEREBROSPINAL FLUID SPECIMENOrdering Facility: [facility] Address: [address] [place] [address] Result Comment: ---- ADDITIONAL INFORMATION This test was developed and its performance characteristicsdetermined by [facility] in a manner consistent with CLIArequirements. This test has not been cleared or approved bythe U.S. Food and Drug Administration. Performed By: #### E NCCSF ####[facility] LABCLIA [id number] [place] [address] ENCEPHALOPATHY INTERPRETATION, CSF SEE NOTE Normal [facility] Comment on above: Order Comment: Key albrecht Type: CEREBROSPINAL FLUID SPECIMENOrdering Facility: [facility] Address: [address] [place] [address] Result Comment: No i nformative autoantibodies were detected in thisevaluation. However, a negative result does not excludeautoimmune encephalopathy, idiopathic or paraneoplastic.Sensitivity and specificity of antibody testing areenhanced by testing both serum and CSF. Performed By: #### E NCCSF ####[facility] LABCLIA [id number] [place] [address] CAITLYN-B-R AB CBA, CSF Negative Normal Negative [facility] Comment on above: Order Comment: Rigobertoi ambrocio Type: CEREBROSPINAL FLUID SPECIMENOrdering Facility: [facility] Address: [address] [place] [address] Result Comment: ---- ADDITIONAL INFORMATION This test was developed and its performance characteristicsdetermined by [facility] in a manner consistent with [employer]. This test has not been cleared or approved bythe U.S. Food and Drug Administration. Performed By: #### E NCCSF ####[facility] LABCLIA [id number] [place] [address] GAD65 ANTIBODY, CSF 0.00 nmol/L Normal <= 0.02 [facility] Comment on above: Order Comment: Key albrecht Type: CEREBROSPINAL FLUID SPECIMENOrdering Facility: [facility] Address: [address] [place] [address] Result Comment: ---- ADDITIONAL INFORMATION This test was developed and its performance characteristicsdetermined by [facility] in a manner consistent with CLIArequirements. This test has not been cleared or approved bythe U.S. Food and Drug Administration. Performed By: #### E NCCSF ####[facility] LABCLIA [id number] [place] [address] GFAP IFA, CSF Negative Normal Negative [facility] Comment on above: Order Comment: Speci men Type: CEREBROSPINAL FLUID SPECIMENOrdering Facility: [facility] Address: [address] [place] [address] Result Comment: ---- ADDITIONAL INFORMATION This test was developed and its performance characteristicsdetermined by [facility] in a manner consistent with CLIArequirements. This test has not been cleared or approved bythe .. Food and Drug Administration. Performed By: #### E NCCSF ####[facility] LABCLIA [id number] [place] [address] IFA NOTES - ENCCSF None. Normal [facility] Comment on above: Order Comment: Key albrecht Type: CEREBROSPINAL FLUID SPECIMENOrdering Facility: [facility] Address: [address] [place] [address] Performed By: #### E NCCSF ####[facility] LABCLIA [id number] [place] [address] IGLON5 IFA, CSF Negative Normal Negative [facility] Comment on above: Order Comment: Key albrecht Type: CEREBROSPINAL FLUID SPECIMENOrdering Facility: [facility] Address: [address] [place] [address] Result Comment: ---- ADDITIONAL INFORMATION This test was developed and its performance characteristicsdetermined by [facility] in a manner consistent with CLIArequirements. This test has not been cleared or approved bythe .. Food and Drug Administration. Performed By: #### E NCCSF ####[facility] LABCLIA [id number] [place] [address] LGI1 IGG, CSF Negative Normal Negative [facility] Comment on above: Order Comment: Key albrecht Type: CEREBROSPINAL FLUID SPECIMENOrdering Facility: [facility] Address: [address] [place] [address] Result Comment: ---- ADDITIONAL INFORMATION This test was developed and its performance characteristicsdetermined by [facility] in a manner consistent with CLIArequirements. This test has not been cleared or approved bythe U.S. Food and Drug Administration. Performed By: #### E NCCSF ####[facility] LABCLIA [id number] [place] [address] MGLUR1 AB IFA, CSF Negative Normal Negative [facility] Comment on above: Order Comment: Key albrecht Type: CEREBROSPINAL FLUID SPECIMENOrdering Facility: [facility] Address: [address] [place] [address] Result Comment: ---- ADDITIONAL INFORMATION This test was developed and its performance characteristicsdetermined by [facility] in a manner consistent with CLIArequirements. This test has not been cleared or approved bythe .S. Food and Drug Administration. Performed By: #### E NCCSF ####[facility] LABCLIA [id number] [place] [address] NEUROCHONDRIN IFA, CSF Negative Normal Negative [facility] Comment on above: Order Comment: Key albrecht Type: CEREBROSPINAL FLUID SPECIMENOrdering Facility: [facility] Address: [address] [place] [address] Result Comment: ---- ADDITIONAL INFORMATION This test was developed and its performance characteristicsdetermined by [facility] in a manner consistent with CLIArequirements. This test has not been cleared or approved bythe U.S. Food and Drug Administration. Performed By: #### E NCCSF ####[facility] LABCLIA [id number] [place] [address] NIF IFA, CSF Negative Normal Negative [facility] Comment on above: Order Comment: Key [facility] Type: CEREBROSPINAL FLUID SPECIMENOrdering Facility: [facility] Address: [address] [place] [address] Result Comment: ---- ADDITIONAL INFORMATION This test was developed and its performance characteristicsdetermined by [facility] in a manner consistent with CLIArequirements. This test has not been cleared or approved bythe U.S. Food and Drug Administration. Performed By: #### E NCCSF ####[facility] REFERENCE LABCLIA [id number] [place] [address] NMDA-RECEPTOR AB CBA, CSF Negative Normal Negative [facility] Comment on above: Order Comment: Key [facility] Type: CEREBROSPINAL FLUID SPECIMENOrdering Facility: [facility] Address: [address] [place] [address] Result Comment: ---- ADDITIONAL INFORMATION This test was developed and its performance characteristicsdetermined by [facility] in a manner consistent with CLIArequirements. This test has not been cleared or approved bythe U.S. Food and Drug Administration. Performed By: #### E NCCSF ####[facility] REFERENCE LABCLIA [id number] [place] [address] PURKINJE CELL CYTO AB TYPE 1, CSF Negative Normal Negative [facility] Comment on above: Order Comment: Key albrecht Type: CEREBROSPINAL FLUID SPECIMENOrdering Facility: [facility] Address: [address] [place] [address] Result Comment: ---- ADDITIONAL INFORMATION This test was developed and its performance characteristicsdetermined by [facility] in a manner consistent with CLIArequirements. This test has not been cleared or approved bythe U.S. Food and Drug Administration. Performed By: #### E NCCSF ####[facility] REFERENCE LABCLIA [id number] [place] [address] PURKINJE CELL CYTO AB TYPE 2, CSF Negative Normal Negative [facility] Comment on above: Order Comment: Speci men Type: CEREBROSPINAL FLUID SPECIMENOrdering Facility: [facility] Address: [address] [place] [address] Result Comment: ---- ADDITIONAL INFORMATION This test was developed and its performance characteristicsdetermined by [facility] in a manner consistent with CLIArequirements. This test has not been cleared or approved bythe U.S. Food and Drug Administration. Performed By: #### E NCCSF ####[facility] REFERENCE LABCLIA [id number] [place] [address] PURKINJE CELL CYTO AB TYPE TR, CSF Negative Normal Negative [facility] Comment on above: Order Comment: Key [facility] Type: CEREBROSPINAL FLUID SPECIMENOrdering Facility: [facility] Address: [address] [place] [address] Result Comment: ---- ADDITIONAL INFORMATION This test was developed and its performance characteristicsdetermined by [facility] in a manner consistent with CLIArequirements. This test has not been cleared or approved bythe U.S. Food and Drug Administration. Performed By: #### E NCCSF ####[facility] REFERENCE LABCLIA [id number] [place] [address] SEPTIN-7 IFA, CSF Negative Normal Negative [facility] Comment on above: Order Comment: Key [facility] Type: CEREBROSPINAL FLUID SPECIMENOrdering Facility: [facility] Address: [address] [place] [address] Result Comment: ---- ADDITIONAL INFORMATION This test was developed and its performance characteristicsdetermined by [facility] in a manner consistent with CLIArequirements. This test has not been cleared or approved bythe U.S. Food and Drug Administration.Test Performed by:[address] [address]Npb Director: Oleksandr Munguia M.D. Ph.D.; CLIA# [id number] Performed By: #### [facility] ####[facility] REFERENCE LABCLIA [id number] [place] [address] BRIEF OP NOTon 09-19-2023 BRIEF OP NOT Normal [facility] Bacteria CSF Culton 09-19-19 24 Bacteria identified Cx Nom (CSF) CULTURE, CSF: No growth 5 days GRAM STAIN: No organisms seen Rare Polymorphonuclear leukocytes Rare Mononuclear cells Gram stain performed on cytospun specimen. Normal [facility] Comment on above: Performed By: #### 6 06-4 ####[facility] LABORATORYCLIA [id number] [place] [address] [place] CASE MGT INIT ASSESon 2023 CASE MGT INIT ASSES Normal [facility] CBC W Auto Differential pane l (Bld)on 09-19-2023 Basophils (Bld) [#/Vol] 10*3/uL Normal <0.11 [facility] Comment on above: Order Comment: Speci men Type: BLOOD SPECIMENOrdering Facility: [facility] Address: [address] [place] [address] Performed By: #### 5 7021-8 ####[facility] LABORATORYCLIA [id number] [address] STATES OF [place] Basophils/100 WBC (Bld) 0.1 % Normal [facility] Comment on above: Order Comment: Speci men Type: BLOOD SPECIMENOrdering Facility: [facility] Address: [address] [place] [address] Performed By: #### 5 7021-8 ####[facility] LABORATORYCLIA [id number] [address] STATES OF [place] Differential cell count method Nom (Bld) Auto Normal [facility] Comment on above: Order Comment: Speci men Type: BLOOD SPECIMENOrdering Facility: [facility] Address: [address] [place] [address] Performed By: #### 5 7021-8 ####[facility] LABORATORYCLIA [id number] [address] STATES [place] Eosinophils (Bld) [#/Vol] 0.09 10*3/uL Normal <0.46 [facility] Comment on above: Order Comment: Speci men Type: BLOOD SPECIMENOrdering Facility: [facility] Address: [address] [place] [address] Performed By: #### 5 7021-8 ####[facility] LABORATORYCLIA [id number] [address] OF [place] Eosinophils/100 WBC (Bld) 1.0 % Normal [facility] Comment on above: Order Comment: Speci men Type: BLOOD SPECIMENOrdering Facility: [facility] Address: [address] [place] [address] Performed By: #### 5 7021-8 ####[facility] LABORATORYCLIA [id number] [address] Erythrocyte distribution width (RBC) [Ratio] 14.0 % Normal 11.5-15.0 [facility] Comment on above: Order Comment: Speci men Type: BLOOD SPECIMENOrdering Facility: [facility] Address: [address] [place] [address] Performed By: #### 5 7021-8 ####[facility] LABORATORYCLIA [id number] [address] STATES [place] Hematocrit (Bld) [Volume fraction] 32.3 % Low 36.0-46.0 [facility] Comment on above: Order Comment: Speci men Type: BLOOD SPECIMENOrdering Facility: [facility] Address: [address] [place] [address] Performed By: #### 5 7021-8 ####[facility] LABORATORYCLIA [id number] [address] [place] Hemoglobin (Bld) [Mass/Vol] 10.7 g/dL Low 11.5-15.5 [facility] Comment on above: Order Comment: Speci men Type: BLOOD SPECIMENOrdering Facility: [facility] Address: [address] [place], [place] [address] Performed By: #### 5 7021-8 ####[facility]ORATORYCLIA [id number] [address] OF [place] Immature granulocytes (Bld) [#/Vol] 0.03 10*3/uL Normal <0.10 [facility] Comment on above: Order Comment: Speci men Type: BLOOD SPECIMENOrdering Facility: [facility] Address: [address] [place] [address] Performed By: #### 5 7021-8 ####[facility] LABORATORYCLIA [id number] [address] Immature granulocytes/100 WBC (Bld) 0.3 % Normal [facility] Comment on above: Order Comment: Speci men Type: BLOOD SPECIMENOrdering Facility: [facility] Address: [address] [place] [address] Performed By: #### 5 7021-8 ####[facility] LABORATORYCLIA [id number] [address] STATES [facility] Lymphocytes (Bld) [#/Vol] 2.55 10*3/uL Normal 1.00-4.00 [facility] Comment on above: Order Comment: Speci men Type: BLOOD SPECIMENOrdering Facility: [facility] Address: [address] [place] [address] Performed By: #### 5 7021-8 ####[facility]ORATORYCLIA [id number] [address] Lymphocytes/100 WBC (Bld) 27.4 % Normal [facility] Comment on above: Order Comment: Speci men Type: BLOOD SPECIMENOrdering Facility: [facility] Address: [address] [place] [address] Performed By: #### 5 7021-8 ####[facility]ORATORYCLIA [id number] [address] STATES [place] MCH (RBC) [Entitic mass] 26.2 pg Normal 26.0-34.0 [facility] Comment on above: Order Comment: Speci men Type: BLOOD SPECIMENOrdering Facility: [facility] Address: [address] [place] [address] Performed By: #### 5 7021-8 ####[facility] LABORATORYCLIA [id number] [address] MCHC (RBC) [Mass/Vol] 33.1 g/dL Normal 30.5-36.0 [facility] Comment on above: Order Comment: Speci men Type: BLOOD SPECIMENOrdering Facility: [facility] Address: [address] [place] [address] Performed By: #### 5 7021-8 ####[facility] LABORATORYCLIA [id number] [address] STATES OF [facility] MCV (RBC) [Entitic vol] 79.2 fL Low 80.0-100.0 [facility] Comment on above: Order Comment: Speci men Type: BLOOD SPECIMENOrdering Facility: [facility] Address: [address] [place] [address] Performed By: #### 5 7021-8 ####[facility] LABORATORYCLIA [id number] [address] Monocytes (Bld) [#/Vol] 0.45 10*3/uL Normal <0.87 [facility] Comment on above: Order Comment: Speci men Type: BLOOD SPECIMENOrdering Facility: [facility] Address: [address] [place] [address] Performed By: #### 5 7021-8 ####[facility] LABORATORYCLIA [id number] [address] Monocytes/100 WBC (Bld) 4.8 % Normal [facility] Comment on above: Order Comment: Speci men Type: BLOOD SPECIMENOrdering Facility: [facility] Address: [address] [place] [address] Performed By: #### 5 7021-8 ####[facility] LABORATORYCLIA [id number] [address] [place] Neutrophils (Bld) [#/Vol] 6.17 10*3/uL Normal 1.45-7.50 [facility] Comment on above: Order Comment: Speci men Type: BLOOD SPECIMENOrdering Facility: [facility] Address: [address] [place] [address] Performed By: #### 5 7021-8 ####[facility] LABORATORYCLIA [id number] [address] STATES [place] Neutrophils/100 WBC (Bld) 66.4 % Normal [facility] Comment on above: Order Comment: Speci men Type: BLOOD SPECIMENOrdering Facility: [facility] Address: [address] [place] [address] Performed By: #### 5 7021-8 ####[facility] LABORATORYCLIA [id number] [address] [place] Nucleated RBC (Bld) [#/Vol] 10*3/uL Normal <0.01 [facility] Comment on above: Order Comment: Speci men Type: BLOOD SPECIMENOrdering Facility: [facility] Address: [address] [place] [address] Performed By: #### 5 7021-8 ####[facility] LABORATORYCLIA [id number] [address] [place] Nucleated RBC/100 WBC (Bld) [Ratio] 0.0 /100 WBC Normal [facility] Comment on above: Order Comment: Speci men Type: BLOOD SPECIMENOrdering Facility: [facility] Address: [address] [place] [address] Performed By: #### 5 7021-8 ####[facility] LABORATORYCLIA [id number] [address] STATES [place] Platelet mean volume (Bld) [Entitic vol] 9.3 fL Normal 9.0-12.7 [facility] Comment on above: Order Comment: Speci men Type: BLOOD SPECIMENOrdering Facility: [facility] Address: [address] [place] [address] Performed By: #### 5 7021-8 ####[facility] LABORATORYCLIA [id number] [place] [address] [place] Platelets (Bld) [#/Vol] 183 10*3/uL Normal 150-400 [facility] Comment on above: Order Comment: Speci men Type: BLOOD SPECIMENOrdering Facility: [facility] Address: [address] [place] [address] Performed By: #### 5 7021-8 ####[facility] LABORATORYCLIA [id number] [place] [address] [place] RBC (Bld) [#/Vol] 4.08 10*6/uL Normal 3.90-5.20 [facility] Comment on above: Order Comment: Speci men Type: BLOOD SPECIMENOrdering Facility: [facility] Address: [address] [place] [address] Performed By: #### 5 7021-8 ####[facility] LABORATORYCLIA [id number] [place] [address] [place] WBC (Bld) [#/Vol] 9.30 10*3/uL Normal 3.70-11.00 [facility] Comment on above: Order Comment: Speci men Type: BLOOD SPECIMENOrdering Facility: [facility] Address: [address] [place] [address] Performed By: #### 5 7021-8 ####[facility] LABORATORYCLIA [id number] [address] [place] CSF MANUAL DIFFon 09-19-2023 DIF TTL, CSF 100 cells counted Normal [facility] Comment on above: Order Comment: Speci men Type: CEREBROSPINAL FLUID SPECIMENOrdering Facility: [facility] Address: [address] [place] [address] Performed By: #### L [id number], 57004-1 ####[facility] LABORATORYCLIA [id number] [address] [place] LYMPH%, CSF 49 % Low 50-90 [facility] Comment on above: Order Comment: Speci men Type: CEREBROSPINAL FLUID SPECIMENOrdering Facility: [facility] Address: [address] [place] [address] Performed By: #### L [id number], 76588-7 ####[facility]ORATORYCLIA [id number] [place] [address] [place] MONO%, CSF 5 % Low 10-50 [facility] Comment on above: Order Comment: Speci men Type: CEREBROSPINAL FLUID SPECIMENOrdering Facility: [facility] Address: [address] [place] [address] Performed By: #### L [id number], 57716-7 ####[facility]ORATORYCLIA [id number] [place] [address] [place] NEUT%, CSF 46 % High 0-3 [facility] Comment on above: Order Comment: Speci men Type: CEREBROSPINAL FLUID SPECIMENOrdering Facility: [facility] Address: [address] [place] [address] Performed By: #### L [id number], 70093-6 ####[facility] LABORATORYCLIA [id number] [address] Cell count panel (CSF)on Clarity (CSF) Clear Normal Clear [facility] Comment on above: Order Comment: Speci men Type: CEREBROSPINAL FLUID SPECIMENOrdering Facility: [facility] Address: [address] [place] [address] Performed By: #### L [id number], 64777-0 ####[facility] LABORATORYCLIA [id number] [address] [place] Clarity (Unsp spec) Not Indicated Normal Clear [place] Comment on above: Order Comment: Speci men Type: CEREBROSPINAL FLUID SPECIMENOrdering Facility: [facility] Address: [address] [place] [address] Performed By: #### L RS1334, 01034-1 ####[facility]ORATORYCLIA [id number] [address] OF [facility] Color (CSF) Colorless Normal Colorless [facility] Comment on above: Order Comment: Speci men Type: CEREBROSPINAL FLUID SPECIMENOrdering Facility: [facility] Address: [address] [place] [address] Performed By: #### L [id number], 31610-1 ####[facility] LABORATORYCLIA [id number] [address] Color (Spun CSF) Not Indicated Normal Colorless [facility] Comment on above: Order Comment: Speci men Type: CEREBROSPINAL FLUID SPECIMENOrdering Facility: [facility] Address: [address] [place] [address] Performed By: #### L RN3853, 24108-1 ####[facility] LABORATORYCLIA [id number] [address] CSF TUBE NUMBER Tube 4 Normal [facility] Comment on above: Order Comment: Speci men Type: CEREBROSPINAL FLUID SPECIMENOrdering Facility: [facility] Address: [address] [place] [address] Performed By: #### L [id number], 61260-1 ####[facility]ORATORYCLIA [id number] [address] RBC Manual cnt (CSF) [#/Vol] 671 cells/uL High 0-5 [facility] Comment on above: Order Comment: Speci men Type: CEREBROSPINAL FLUID SPECIMENOrdering Facility: [facility] Address: [address] [place] [address] Performed By: #### L [id number], 23494-3 ####[facility]ORATORYCLIA [id number] [address] WBC Manual cnt (CSF) [#/Vol] 3 cells/uL Normal 0-5 [facility] Comment on above: Order Comment: Speci men Type: CEREBROSPINAL FLUID SPECIMENOrdering Facility: [facility] Address: [address] [place] [address] Performed By: #### L [id number], 86643-6 ####[facility] LABORATORYCLIA [id number] [address] OF [place] Comprehensive metabolic 2000 panelon 09-19-2023 Albumin [Mass/Vol] 3.0 g/dL Low 3.9-4.9 [facility] Comment on above: Order Comment: Speci men Type: BLOOD SPECIMENOrdering Facility: [facility] Address: [address] [place] [address] Performed By: #### 2 4323-8, 2776-07, ####[facility] LABORATORYCLIA [id number] [place] [address] [place] [facility] ALP [Catalytic activity/Vol] 92 U/L Normal 34-123 [facility] Comment on above: Order Comment: Speci men Type: BLOOD SPECIMENOrdering Facility: [facility] Address: [address] [place] [address] Performed By: #### 2 4323-8, 2776-07, ####[facility] LABORATORYCLIA [id number] [address] STATES [place] ALT With P-5'-P [Catalytic activity/Vol] 9 U/L Normal 7-38 [facility] Comment on above: Order Comment: Speci men Type: BLOOD SPECIMENOrdering Facility: [facility] Address: [address] [place] [address] Performed By: #### 2 4323-8, 2776-07, ####[facility] LABORATORYCLIA [id number] [address] STATES OF [facility] Anion gap [Moles/Vol] 8 mmol/L Low 9-18 [facility] Comment on above: Order Comment: Speci men Type: BLOOD SPECIMENOrdering Facility: [facility] Address: [address] [place] [address] Performed By: #### 2 4323-8, 2776-07, ####[facility] LABORATORYCLIA [id number] [place] [address] [place] AST With P-5'-P [Catalytic activity/Vol] 10 U/L Low 13-35 [facility] Comment on above: Order Comment: Speci men Type: BLOOD SPECIMENOrdering Facility: [facility] Address: [address] [place] [address] [place] [address] Performed By: #### 2 4323-8, 2776-07, ####[facility] LABORATORYCLIA [id number] [place] [address] [place] Bilirubin [Mass/Vol] 0.2 mg/dL Normal 0.2-1.3 [facility] Comment on above: Order Comment: Speci men Type: BLOOD SPECIMENOrdering Facility: [facility] Address: [address] [place] [address] Performed By: #### 2 4323-8, 2776-07, ####[facility] LABORATORYCLIA [id number] [place] [address] [place] Calcium [Mass/Vol] 8.7 mg/dL Normal 8.5-10.2 [facility] Comment on above: Order Comment: Speci men Type: BLOOD SPECIMENOrdering Facility: [facility] Address: [address] [place] [address] Performed By: #### 2 4323-8, 2776-07, ####[facility] LABORATORYCLIA [id number] [place] [address] [place] Chloride [Moles/Vol] 105 mmol/L Normal 97-105 [facility] Comment on above: Order Comment: Speci men Type: BLOOD SPECIMENOrdering Facility: [facility] Address: [address] [place] [address] Performed By: #### 2 4323-8, 2776-07, ####[facility] LABORATORYCLIA [id number] [place] [address] [place] CO2 [Moles/Vol] 25 mmol/L Normal 22-30 [facility] Comment on above: Order Comment: Speci men Type: BLOOD SPECIMENOrdering Facility: [facility] Address: [address] [place] [address] Performed By: #### 2 4323-8, 27712-29, ####[facility]ORATORYCLIA [id number] [address] STATES OF [facility] Creatinine [Mass/Vol] 0.87 mg/dL Normal 0.58-0.96 [facility] Comment on above: Order Comment: Key albrecht Type: BLOOD SPECIMENOrdering Facility: [facility] Address: [address] [place] [address] Performed By: #### 2 4323-8, 2777, ####[facility] LABORATORYCLIA [id number] [address] Creatinine and Glomerular filtration rate.predicted panel (S/P/Bld) 74 mL/min/1.73m??? Normal >=60 [facility] Comment on above: Order Comment: Key albrecht Type: BLOOD SPECIMENOrdering Facility: [facility] Address: [address] [place] [address] Result Comment: Swetha mated Glomerular Filtration Rate (eGFR) is calculated using the 2020 CKD-EPI creatinine equation. This equation utilizes serum creatinine, sex, and age as parameters. The creatinine assay has traceable calibration to isotope dilution-mass spectrometry. Refer to KDIGO guidelines for clinical interpretation. In patients with unstable renal function, e.g. those with acute kidney injury, the eGFR may not accurately reflect actual GFR. Performed By: #### 2 4323-8, 2776-07, ####[facility]OSPITALCLIA [id number] [address] STATES OF [facility] Glucose [Mass/Vol] 178 mg/dL High 74-99 [facility] Comment on above: Order Comment: Key albrecht Type: BLOOD SPECIMENOrdering Facility: [facility] Address: [address] [place] [address] Result Comment: The [place] [employer] (ADA) provides guidance for cutoff values for fasting glucose and random glucose. The ADA defines fasting as no caloric intake for at least 8 hours. Fasting plasma glucose results between 100 to 125 mg/dL indicate increased risk for diabetes (prediabetes).Fasting plasma glucose results greater than or equal to 126 mg/dL meet the criteria for diagnosis of diabetes. In the absence of unequivocal hyperglycemia, results should be confirmed by repeat testing. In a patient with classic symptoms of hyperglycemia or hyperglycemic crisis, random plasma glucose results greater than or equal to 200 mg/dL meet the criteria for diagnosis of diabetes.Reference: Standards of Medical Care in Diabetes 2016, [place] [employer]. Diabetes Care. 2016.39(Suppl 1). Performed By: #### 2 4323-8, 2776-07, ####[facility] LABORATORYCLIA [id number] [place] [address] [place] Potassium [Moles/Vol] 3.5 mmol/L Low 3.7-5.1 [facility] Comment on above: Order Comment: Speci men Type: BLOOD SPECIMENOrdering Facility: [facility] Address: [address] [place] [address] Performed By: #### 2 4323-8, 2776-07, ####[facility] LABORATORYCLIA [id number] [place] [id number] [place] Protein [Mass/Vol] 6.0 g/dL Low 6.3-8.0 [facility] Comment on above: Order Comment: Speci men Type: BLOOD SPECIMENOrdering Facility: [facility] Address: [address] [place] [address] Performed By: #### 2 4323-8, 2776-07, ####[facility] LABORATORYCLIA [id number] [place] [address] [place] Sodium [Moles/Vol] 138 mmol/L Normal 136-144 [facility] Comment on above: Order Comment: Speci men Type: BLOOD SPECIMENOrdering Facility: [facility] Address: [address] [place] [address] Performed By: #### 2 4323-8, 2776-07, ####[facility] LABORATORYCLIA [id number] [place] [address] [place] Urea nitrogen [Mass/Vol] 7 mg/dL Normal 7-21 [facility] Comment on above: Order Comment: Speci men Type: BLOOD SPECIMENOrdering Facility: [facility] Address: [address] [place] [address] Performed By: #### 2 4323-8, 2777-1, 06385-9 ####[facility] LABORATORYCLIA [id number] [place] [address] [place] Glucose CSF-mCncon Glucose (CSF) [Mass/Vol] 107 mg/dL High 40-70 [facility] Comment on above: Order Comment: Speci men Type: CEREBROSPINAL FLUID SPECIMENOrdering Facility: [facility] Address: [address] [place] [address] Result Comment: Lumb ar CSF glucose values of healthy patients are approximately 60% of the plasma values and must always be compared with a concurrently measured plasma value for adequate clinical interpretation.References: 1. Glucose HK (GLUC3) [package insert V 12.0 [place]er]. [facility], [place], [place]. October 2015. 2. Xena Wallace, Kiki HMurtaza (2015). Chapter 7: Glucose and Lactate. FMurtaza Suárez al.(eds.), Cerebrospinal Fluid in Clinical Neurology. [place]: [employer]. Performed By: #### 2 342-4, 2880-3 ####[facility] LABORATORYCLIA [id number] [address] [place] HERPES SIMPLEX CSFon 024 HERPES SIMPLEX CSF HSV-1: Negative for Herpes Simplex Virus Type 1 by PCR HSV-2: Negative for Herpes Simplex Virus Type 2 by PCR Normal [facility] Comment on above: Performed By: #### H [facility] ####[facility] LABCLIA [id number] [facility] [id number] [place] [address] [place] Magnesium SerPl-ncon 09-18 Magnesium [Mass/Vol] 2.0 mg/dL Normal 1.7-2.3 [facility] Comment on above: Order Comment: Speci men Type: BLOOD SPECIMENOrdering Facility: [facility] Address: [address] [place] [address] Performed By: #### 2 4323-8, 2777-1, 88769-6 ####[facility] LABORATORYCLIA [id number] [place] [address] [place] NUTRITIONon 09-19-2023 NUTRITION Normal [facility] Phosphate SerPl-mCncon 09-18 Phosphate [Mass/Vol] 3.0 mg/dL Normal 2.7-4.8 [facility] Comment on above: Order Comment: Speci men Type: BLOOD SPECIMENOrdering Facility: [facility] Address: [address] [place] [address] Performed By: #### 2 4323-8, 2777-1, 63126-1 ####[facility] LABORATORYCLIA [id number] [place] [address] [place] Prot CSF-mCncon 09-19-2023 Protein (CSF) [Mass/Vol] 33 mg/dL Normal 15-45 [facility] Comment on above: Order Comment: Speci men Type: CEREBROSPINAL FLUID SPECIMENOrdering Facility: [facility] Address: [address] [place] [address] Performed By: #### 2 342-4, 2880-3 ####[facility] LABORATORYCLIA [id number] [place] [address] [place] CSFon Albumin (CSF) [Mass/Vol] 15.3 mg/dL Normal 10.0-30.0 [facility] Comment on above: Order Comment: Speci men Type: CEREBROSPINAL FLUID SPECIMENOrdering Facility: [facility] Address: [address] [place] [address] Performed By: #### T OURTCSF ####[facility] LABCLIA [id number] [place] [id number] [place] Albumin [Mass/Vol] 3300 mg/dL Low 2051-9105 [facility] Comment on above: Order Comment: Speci men Type: CEREBROSPINAL FLUID SPECIMENOrdering Facility: [facility] Address: [address] [place] [address] Performed By: #### T OURTCSF ####[facility] LABCLIA [id number] [place] [address] [place] IgG (CSF) [Mass/Vol] 3.7 mg/dL High 1.0-3.0 [facility] Comment on above: Order Comment: Speci men Type: CEREBROSPINAL FLUID SPECIMENOrdering Facility: [facility] Address: [address] [place] [address] Performed By: #### T OURTCSF ####[facility] LABCLIA [id number] [place] [address] [place] IgG [Mass/Vol] 1039 mg/dL Normal 700-1600 [facility] Comment on above: Order Comment: Speci men Type: CEREBROSPINAL FLUID SPECIMENOrdering Facility: [facility] Address: [address] [place] [address] Performed By: #### T OURTCSF ####[facility] LABCLIA [id number] [place] [address] [place] IgG clearance/Albumin clearance (S+CSF) [Ratio] 0.77 High 0.00-0.61 [facility] Comment on above: Order Comment: Speci men Type: CEREBROSPINAL FLUID SPECIMENOrdering Facility: [facility] Address: [address] [place] [address] Performed By: #### T OURTCSF ####[facility] LABCLIA [id number] [place] [address] [place] IgG synthesis rate Calc (S+CSF) [Mass/Time] 3.8 mg/day High 0.0-3.0 [facility] Comment on above: Order Comment: Speci men Type: CEREBROSPINAL FLUID SPECIMENOrdering Facility: [facility] Address: [address] [place] [address] Performed By: #### T OURTCSF ####[facility] LABCLIA [id number] [place] [address] [place] IgG/Albumin (CSF) [Mass ratio] 0.24 High 0.06-0.17 [facility] Comment on above: Order Comment: Speci men Type: CEREBROSPINAL FLUID SPECIMENOrdering Facility: [facility] Address: [address] [place] [address] Performed By: #### T OURTCSF ####[facility] LABCLIA [id number] [place] [address] [place] VDRL CSF-Titron 09-19-2023 Reagin Ab VDRL (CSF) [Titer] Non-Reactive Normal Nonreactive [facility] Comment on above: Order Comment: Speci men Type: CEREBROSPINAL FLUID SPECIMENOrdering Facility: [facility] Address: [address] [place] [address] Result Comment: CSF VDRL test is used an aid in diagnosis of neurosyphilis. CSF VDRL detects non-treponemal antibodies and has lower sensitivity than CSF treponemal tests such as FTA, therefore a negative result cannot reliably rule out neurosyphilis. Clinical correlation is required. Performed By: #### 3 1146-4 ####[facility] LABCLIA [id number] [place] [address] [place] XR LUMBAR PUNCTURE DIAGNOSTI Con 09-19-2023 XR LUMBAR PUNCTURE DIAGNOSTIC Normal [facility] ALLIED HEALTHon 09-18-2023 ALLIED HEALTH Normal [facility] ARTERIAL BLOOD GASESon 09-17 Base deficit (BldA) [Moles/Vol] -1 mmol/L Normal -2-0 [facility] Comment on above: Order Comment: Speci men Type: ARTERIAL BLOOD SPECIMENOrdering Facility: [facility] Address: [address] [place] [address] Performed By: #### A LLBG ####[facility] LABORATORYCLIA [id number] [place] [address] [place] Body temperature 98.6 [degF] Normal [facility] Comment on above: Order Comment: Speci men Type: ARTERIAL BLOOD SPECIMENOrdering Facility: [facility] Address: [address] [place] [address] Performed By: #### A LLBG ####[facility] LABORATORYCLIA [id number] [address] [place] Calcium.ionized (BldV) [Mass/Vol] 1.15 mmol/L Normal 1.08-1.30 [facility] Comment on above: Order Comment: Speci men Type: ARTERIAL BLOOD SPECIMENOrdering Facility: [facility] Address: [address] [place] [address] Performed By: #### A LLBG ####[facility] LABORATORYCLIA [id number] [address] Calcium.ionized adjusted to pH 7.4 (BldA) [Moles/Vol] 1.17 mmol/L Normal 1.08-1.30 [facility] Comment on above: Order Comment: Speci men Type: ARTERIAL BLOOD SPECIMENOrdering Facility: [facility] Address: [address] [place] [address] Performed By: #### A LLBG ####[facility] LABORATORYCLIA [id number] [address] OF [facility] Carboxyhemoglobin (BldA) [Mass fraction] 1.4 % Normal 0.0-2.0 [facility] Comment on above: Order Comment: Speci men Type: ARTERIAL BLOOD SPECIMENOrdering Facility: [facility] Address: [address] [place] [address] Result Comment: Carb oxyhemoglobin Reference Range for Smokers: 2.0-8.0% Performed By: #### A LLBG ####[facility] LABORATORYCLIA [id number] [address] [place] Chloride [Moles/Vol] 101 mmol/L Low 102-109 [facility] Comment on above: Order Comment: Speci men Type: ARTERIAL BLOOD SPECIMENOrdering Facility: [facility] Address: [address] [place] [address] Performed By: #### A LLBG ####[facility] LABORATORYCLIA [id number] [address] [place] CO2 (Bld) [Partial pressure] 36 mm Hg Normal 36-46 [facility] Comment on above: Order Comment: Speci men Type: ARTERIAL BLOOD SPECIMENOrdering Facility: [facility] Address: [address] [place] [address] Performed By: #### A LLBG ####[facility] LABORATORYCLIA [id number] [address] [place] Glucose [Mass/Vol] 345 mg/dL High 60-105 [facility] Comment on above: Order Comment: Speci men Type: ARTERIAL BLOOD SPECIMENOrdering Facility: [facility] Address: [address] [place] [address] Performed By: #### A LLBG ####[facility] LABORATORYCLIA [id number] [address] [place] HCO3 (Bld) [Moles/Vol] 23 mmol/L Normal 22-26 [facility] Comment on above: Order Comment: Speci men Type: ARTERIAL BLOOD SPECIMENOrdering Facility: [facility] Address: [address] [place] [address] Performed By: #### A LLBG ####[facility] LABORATORYCLIA [id number] [address] [place] Hematocrit (Bld) [Volume fraction] 37.1 % Normal 36.0-46.0 [facility] Comment on above: Order Comment: Speci men Type: ARTERIAL BLOOD SPECIMENOrdering Facility: [facility] Address: [address] [place] [address] Performed By: #### A LLBG ####[facility] LABORATORYCLIA [id number] [address] [place] Hemoglobin (Bld) [Mass/Vol] 12.0 g/dL Normal 11.5-15.5 [facility] Comment on above: Order Comment: Speci men Type: ARTERIAL BLOOD SPECIMENOrdering Facility: [facility] Address: [address] [place] [address] Performed By: #### A LLBG ####[facility] LABORATORYCLIA [id number] [address] Order Comment: Speci men Type: BLOOD SPECIMENOrdering Facility: [facility] Address: [address] [place] [address] Performed By: #### 5 7021-8 ####[facility] LABORATORYCLIA [id number] [address] [place] Lactate [Moles/Vol] 2.4 mmol/L High 0.5-2.2 [facility] Comment on above: Order Comment: Speci men Type: ARTERIAL BLOOD SPECIMENOrdering Facility: [facility] Address: [address] [place] [address] Performed By: #### A LLBG ####[facility]ORATORYCLIA [id number] [address] Methemoglobin (Bld) [Mass fraction] 0.5 % Normal 0.0-1.5 [facility] Comment on above: Order Comment: Speci men Type: ARTERIAL BLOOD SPECIMENOrdering Facility: [facility] Address: [address] [place] [address] Performed By: #### A LLBG ####[facility]ORATORYCLIA [id number] [address] [place] O2 THERAPY Ventilator Normal [facility] Comment on above: Order Comment: Speci men Type: ARTERIAL BLOOD SPECIMENOrdering Facility: [facility] Address: [address] [place] [address] Performed By: #### A LLBG ####[facility]ORATORYCLIA [id number] [address] [place] Oxygen (Bld) [Partial pressure] 153 mm Hg High 85-95 [facility] Comment on above: Order Comment: Speci men Type: ARTERIAL BLOOD SPECIMENOrdering Facility: [facility] Address: [address] [place] [address] Performed By: #### A LLBG ####[facility]ORATORYCLIA [id number] [address] [place] Oxyhemoglobin (BldA) [Mass fraction] 98 % Normal 95-98 [facility] Comment on above: Order Comment: Speci men Type: ARTERIAL BLOOD SPECIMENOrdering Facility: [facility] Address: [address] [place] [address] Performed By: #### A LLBG ####[facility] LABORATORYCLIA [id number] [address] OF [facility] pH (Bld) 7.42 [pH] Normal 7.35-7.45 [facility] Comment on above: Order Comment: Speci men Type: ARTERIAL BLOOD SPECIMENOrdering Facility: [facility] Address: [address] [place] [address] Performed By: #### A LLBG ####[facility] LABORATORYCLIA [id number] [address] OF [place] Potassium [Moles/Vol] 4.1 mmol/L Normal 3.5-5.0 [facility] Comment on above: Order Comment: Speci men Type: ARTERIAL BLOOD SPECIMENOrdering Facility: [facility] Address: [address] [place] [address] Performed By: #### A LLBG ####[facility] LABORATORYCLIA [id number] [address] [place] Sodium [Moles/Vol] 134 mmol/L Low 136-144 [facility] Comment on above: Order Comment: Speci men Type: ARTERIAL BLOOD SPECIMENOrdering Facility: [facility] Address: [address] [place] [address] Performed By: #### A LLBG ####[facility] LABORATORYCLIA [id number] [address] OF [facility] AUTOIMMUNE ENCEPHALOPATHY EV ALUATION, SERUMon 09-18-2023 AMPA-R AB CBA, S Negative Normal Negative [facility] Comment on above: Order Comment: Speci men Type: BLOOD SPECIMENOrdering Facility: [facility] Address: [address] [place] [address] Result Comment: ---- ADDITIONAL INFORMATION This test was developed and its performance characteristicsdetermined by [facility] in a manner consistent with CLIArequirements. This test has not been cleared or approved bythe U.S. Food and Drug Administration. Performed By: #### E NCSER ####[facility] LABCLIA [id number] [place] [address] AMPHIPHYSIN AB Negative Normal Negative [facility] Comment on above: Order Comment: Key albrecht Type: BLOOD SPECIMENOrdering Facility: [facility] Address: [address] [place] [address] Result Comment: ---- ADDITIONAL INFORMATION This test was developed and its performance characteristicsdetermined by [facility] in a manner consistent with CLIArequirements. This test has not been cleared or approved bythe .S. Food and Drug Administration. Performed By: #### E NCSER ####[facility] LABCLIA [id number] [place] [address] ANTI-GLIAL NUCLEAR AB, TYPE 1 Negative Normal Negative [facility] Comment on above: Order Comment: Key albrecht Type: BLOOD SPECIMENOrdering Facility: [facility] Address: [address] [place] [address] Result Comment: ---- ADDITIONAL INFORMATION This test was developed and its performance characteristicsdetermined by [facility] in a manner consistent with CLIArequirements. This test has not been cleared or approved bythe .[place]. Food and Drug Administration. Performed By: #### E NCSER ####[facility] LABCLIA [id number] [place] [address] ANTI-NEURONAL NUC AB, TYPE 1 Negative Normal Negative [facility] Comment on above: Order Comment: Key albrecht Type: BLOOD SPECIMENOrdering Facility: [facility] Address: [address] [place] [address] Result Comment: ---- ADDITIONAL INFORMATION This test was developed and its performance characteristicsdetermined by [facility] in a manner consistent with CLIArequirements. This test has not been cleared or approved bythe U.S. Food and Drug Administration. Performed By: #### E NCSER ####[facility] LABCLIA [id number] [place] [address] ANTI-NEURONAL NUC AB, TYPE 2 Negative Normal Negative [facility] Comment on above: Order Comment: Key albrecht Type: BLOOD SPECIMENOrdering Facility: [facility] Address: [address] [place] [address] Result Comment: ---- ADDITIONAL INFORMATION This test was developed and its performance characteristicsdetermined by [facility] in a manner consistent with CLIArequirements. This test has not been cleared or approved bythe U.S. Food and Drug Administration. Performed By: #### E NCSER ####[facility] LABCLIA [id number] [place] [address] ANTI-NEURONAL NUC AB, TYPE 3 Negative Normal Negative [facility] Comment on above: Order Comment: Key albrecht Type: BLOOD SPECIMENOrdering Facility: [facility] Address: [address] [place] [address] Result Comment: ---- ADDITIONAL INFORMATION This test was developed and its performance characteristicsdetermined by [facility] in a manner consistent with CLIArequirements. This test has not been cleared or approved bythe U.S. Food and Drug Administration. Performed By: #### E NCSER ####[facility] LABCLIA [id number] [place] [address] CASPR2-IGG CBA S Negative Normal Negative [facility] Comment on above: Order Comment: Key albrecht Type: BLOOD SPECIMENOrdering Facility: [facility] Address: [address] [place] [address] Result Comment: ---- ADDITIONAL INFORMATION This test was developed and its performance characteristicsdetermined by [facility] in a manner consistent with CLIArequirements. This test has not been cleared or approved bythe U.S. Food and Drug Administration. Performed By: #### E NCSER ####[facility] LABCLIA [id number] [place] [address] CRMP-5, IGG Negative Normal Negative [facility] Comment on above: Order Comment: Key albrecht Type: BLOOD SPECIMENOrdering Facility: [facility] Address: [address] [place] [address] Result Comment: ---- ADDITIONAL INFORMATION This test was developed and its performance characteristicsdetermined by [facility] in a manner consistent with CLIArequirements. This test has not been cleared or approved bythe U.S. Food and Drug Administration. Performed By: #### E NCSER ####[facility] LABCLIA [id number] [place] [address] DPPX AB IFA, S Negative Normal Negative [facility] Comment on above: Order Comment: Key albrecht Type: BLOOD SPECIMENOrdering Facility: [facility] Address: [address] [place] [address] Result Comment: ---- ADDITIONAL INFORMATION This test was developed and its performance characteristicsdetermined by [facility] in a manner consistent with CLIArequireMedialive. This test has not been cleared or approved bythe U.S. Food and Drug Administration. Performed By: #### E NCSER ####[facility] LABCLIA [id number] [place] [address] ENCEPHALOPATHY INTERPRETATION SEE NOTE Normal [facility] Comment on above: Order Comment: Key albrecht Type: BLOOD SPECIMENOrdering Facility: [facility] Address: [address] [place] [address] Result Comment: No i nformative autoantibodies were detected in thisevaluation. However, a negative result does not excludeautoimmune encephalopathy, idiopathic or paraneoplastic.Sensitivity and specificity of antibody testing areenhanced by testing both serum and CSF. Performed By: #### E NCSER ####[facility] LABCLIA [id number] [place] [address] CAITLYN-B-R AB CBA, S Negative Normal Negative [facility] Comment on above: Order Comment: Key albrecht Type: BLOOD SPECIMENOrdering Facility: [facility] Address: [address] [place] [address] Result Comment: ---- ADDITIONAL INFORMATION This test was developed and its performance characteristicsdetermined by [facility] in a manner consistent with CLIArequirements. This test has not been cleared or approved bythe U.S. Food and Drug Administration. Performed By: #### E NCSER ####[facility] LABCLIA [id number] [place] [address] GAD65 ANTIBODY 0.00 nmol/L Normal <= 0.02 [facility] Comment on above: Order Comment: Key albrecht Type: BLOOD SPECIMENOrdering Facility: [facility] Address: [address] [place] [address] Result Comment: ---- ADDITIONAL INFORMATION This test was developed and its performance characteristicsdetermined by [facility] in a manner consistent with CLIArequirements. This test has not been cleared or approved bythe U.S. Food and Drug Administration. Performed By: #### E NCSER ####[facility] LABCLIA [id number] [place] [address] GFAP IFA, S Negative Normal Negative [facility] Comment on above: Order Comment: Key [facility] Type: BLOOD SPECIMENOrdering Facility: [facility] Address: [address] [place] [address] Result Comment: ---- ADDITIONAL INFORMATION This test was developed and its performance characteristicsdetermined by [facility] in a manner consistent with CLIArequirements. This test has not been cleared or approved bythe U.S. Food and Drug Administration. Performed By: #### E NCSER ####[facility] LABCLIA [id number] [place] [address] IFA NOTES - ENCSER None. Normal [facility] Comment on above: Order Comment: Key albrecht Type: BLOOD SPECIMENOrdering Facility: [facility] Address: [address] [place] [address] Performed By: #### E NCSER ####[facility] LABCLIA [id number] [place] [address] IGLON5 IFA, S Negative Normal Negative [facility] Comment on above: Order Comment: Key albrecht Type: BLOOD SPECIMENOrdering Facility: [facility] Address: [address] [place] [address] Result Comment: ---- ADDITIONAL INFORMATION This test was developed and its performance characteristicsdetermined by [facility] in a manner consistent with CLIArequirements. This test has not been cleared or approved bythe U.S. Food and Drug Administration. Performed By: #### E NCSER ####[facility] LABCLIA [id number] [place] [address] [id number] CBA SERUM Negative Normal Negative [facility] Comment on above: Order Comment: Key albrecht Type: BLOOD SPECIMENOrdering Facility: [facility] Address: [address] [place] [address] Result Comment: ---- ADDITIONAL INFORMATION This test was developed and its performance characteristicsdetermined by [facility] in a manner consistent with CLIArequirements. This test has not been cleared or approved bythe U.S. Food and Drug Administration. Performed By: #### E NCSER ####[facility] LABCLIA [id number] [place] [address] MGLUR1 AB IFA, S Negative Normal Negative [facility] Comment on above: Order Comment: Key albrecht Type: BLOOD SPECIMENOrdering Facility: [facility] Address: [address] [place] [address] Result Comment: ---- ADDITIONAL INFORMATION This test was developed and its performance characteristicsdetermined by [facility] in a manner consistent with CLIArequirements. This test has not been cleared or approved bythe U.S. Food and Drug Administration. Performed By: #### E NCSER ####[facility] LABCLIA [id number] [place] [address] NEUROCHONDRIN IFA , S Negative Normal Negative [facility] Comment on above: Order Comment: Key albrecht Type: BLOOD SPECIMENOrdering Facility: [facility] Address: [address] [place] [address] Result Comment: ---- ADDITIONAL INFORMATION This test was developed and its performance characteristicsdetermined by [facility] in a manner consistent with CLIArequirements. This test has not been cleared or approved bythe U.S. Food and Drug Administration. Performed By: #### E NCSER ####[facility] LABCLIA [id number] [place] [address] NIF IFA, S Negative Normal Negative [facility] Comment on above: Order Comment: Key albrecht Type: BLOOD SPECIMENOrdering Facility: [facility] Address: [address] [place] [address] Result Comment: ---- ADDITIONAL INFORMATION This test was developed and its performance characteristicsdetermined by [facility] in a manner consistent with CLIArequirements. This test has not been cleared or approved bythe U.S. Food and Drug Administration. Performed By: #### E NCSER ####[facility] LABCLIA [id number] [place] [address] NMDA-R AB CBA, S Negative Normal Negative [facility] Comment on above: Order Comment: Key albrecht Type: BLOOD SPECIMENOrdering Facility: [facility] Address: [address] [place] [address] Result Comment: ---- ADDITIONAL INFORMATION This test was developed and its performance characteristicsdetermined by [facility] in a manner consistent with CLIArequirements. This test has not been cleared or approved bythe U.S. Food and Drug Administration. Performed By: #### E NCSER ####[facility] LABCLIA [id number] [place] [address] PURKINJE CELL CYTO AB, TYPE 1 Negative Normal Negative [facility] Comment on above: Order Comment: Key albrecht Type: BLOOD SPECIMENOrdering Facility: [facility] Address: [address] [place] [address] Result Comment: ---- ADDITIONAL INFORMATION This test was developed and its performance characteristicsdetermined by [facility] in a manner consistent with CLIArequirements. This test has not been cleared or approved bythe U.S. Food and Drug Administration. Performed By: #### E NCSER ####[facility] LABCLIA [id number] [place] [address] PURKINJE CELL CYTO AB, TYPE 2 Negative Normal Negative [facility] Comment on above: Order Comment: Key albrecht Type: BLOOD SPECIMENOrdering Facility: [facility] Address: [address] [place] [address] Result Comment: ---- ADDITIONAL INFORMATION This test was developed and its performance characteristicsdetermined by [facility] in a manner consistent with CLIArequirements. This test has not been cleared or approved bythe U.S. Food and Drug Administration. Performed By: #### E NCSER ####[facility] RE[facility] LABCLIA [id number] [place] [address] PURKINJE CELL CYTO AB, TYPE TR Negative Normal Negative [facility] Comment on above: Order Comment: Key albrecht Type: BLOOD SPECIMENOrdering Facility: [facility] Address: [address] [place] [address] Result Comment: ---- ADDITIONAL INFORMATION This test was developed and its performance characteristicsdetermined by [facility] in a manner consistent with CLIArequirements. This test has not been cleared or approved bythe U.S. Food and Drug Administration. Performed By: #### E BRANDENER ####[facility] RE[facility] LABCLIA [id number] [place] [address] SEPTIN-7 IFA, S Negative Normal Negative [facility] Comment on above: Order Comment: Key albrecht Type: BLOOD SPECIMENOrdering Facility: [facility] Address: [address] [place] [address] Result Comment: ---- ADDITIONAL INFORMATION This test was developed and its performance characteristicsdetermined by [facility] in a manner consistent with CLIArequirements. This test has not been cleared or approved bythe U.S. Food and Drug Administration.Test Performed by:[address] [address] Director: Oleksandr Munguia M.D. Ph.D.; CLIA# [id number] Performed By: #### E NCSER ####[facility] LABCLIA [id number] [place] [address] Bacteria Bld Culton 09-18-19 24 Bacteria identified Cx Nom (Bld) CULTURE, BLOOD: No growth 5 days Normal [facility] Comment on above: Performed By: #### 6 00-7 ####[facility] LABORATORYCLIA [id number] [place] [address] [place] Bacteria CSF Culton 09-18-19 24 Bacteria identified Cx Nom (CSF) CULTURE, CSF: No growth 5 days GRAM STAIN: Quantity not sufficient. Stain not performed. Account credited. Normal [facility] Comment on above: Performed By: #### 6 06-4 ####[facility] LABORATORYCLIA [id number] [address] [place] CBC W Auto Differential pane l (Bld)on 09-18-2023 Basophils (Bld) [#/Vol] 10*3/uL Normal <0.11 [facility] Comment on above: Order Comment: Speci men Type: BLOOD SPECIMENOrdering Facility: [facility] Address: [address] [place] [address] Performed By: #### 5 7021-8 ####[facility] LABORATORYCLIA [id number] [address] [place] Basophils/100 WBC (Bld) 0.2 % Normal [facility] Comment on above: Order Comment: Speci men Type: BLOOD SPECIMENOrdering Facility: [facility] Address: [address] [place] [address] Performed By: #### 5 7021-8 ####[facility] LABORATORYCLIA [id number] [address] STATES [facility] Differential cell count method Nom (Bld) Auto Normal [facility] Comment on above: Order Comment: Speci men Type: BLOOD SPECIMENOrdering Facility: [facility] Address: [address] [place] [address] Performed By: #### 5 7021-8 ####[facility] LABORATORYCLIA [id number] [address] [place] Eosinophils (Bld) [#/Vol] 0.03 10*3/uL Normal <0.46 [facility] Comment on above: Order Comment: Speci men Type: BLOOD SPECIMENOrdering Facility: [facility] Address: [address] [place] [address] Performed By: #### 5 7021-8 ####[facility] LABORATORYCLIA [id number] [address] OF [place] Eosinophils/100 WBC (Bld) 0.2 % Normal [facility] Comment on above: Order Comment: Speci men Type: BLOOD SPECIMENOrdering Facility: [facility] Address: [address] [place] [address] Performed By: #### 5 7021-8 ####[facility] LABORATORYCLIA [id number] [address] Erythrocyte distribution width (RBC) [Ratio] 13.2 % Normal 11.5-15.0 [facility] Comment on above: Order Comment: Speci men Type: BLOOD SPECIMENOrdering Facility: [facility] Address: [address] [place] [address] Performed By: #### 5 7021-8 ####[facility] LABORATORYCLIA [id number] [address] OF [place] Hematocrit (Bld) [Volume fraction] 31.4 % Low 36.0-46.0 [facility] Comment on above: Order Comment: Speci men Type: BLOOD SPECIMENOrdering Facility: [facility] Address: [address] [place] [address] Performed By: #### 5 7021-8 ####[facility] LABORATORYCLIA [id number] [address] [place] Hemoglobin (Bld) [Mass/Vol] 10.9 g/dL Low 11.5-15.5 [facility] Comment on above: Order Comment: Speci men Type: BLOOD SPECIMENOrdering Facility: [facility] Address: [address] [place] [address] Performed By: #### 5 7021-8 ####[facility]ORATORYCLIA [id number] [address] OF [place] Immature granulocytes (Bld) [#/Vol] 0.10 10*3/uL High <0.10 [facility] Comment on above: Order Comment: Speci men Type: BLOOD SPECIMENOrdering Facility: [facility] Address: [address] [place] [address] Performed By: #### 5 7021-8 ####[facility] LABORATORYCLIA [id number] [address] Immature granulocytes/100 WBC (Bld) 0.8 % Normal [facility] Comment on above: Order Comment: Speci men Type: BLOOD SPECIMENOrdering Facility: [facility] Address: [address] [place] [address] Performed By: #### 5 7021-8 ####[facility] LABORATORYCLIA [id number] [address] Lymphocytes (Bld) [#/Vol] 2.20 10*3/uL Normal 1.00-4.00 [facility] Comment on above: Order Comment: Speci men Type: BLOOD SPECIMENOrdering Facility: [facility] Address: [address] [place] [address] Performed By: #### 5 7021-8 ####[facility] LABORATORYCLIA [id number] [address] Lymphocytes/100 WBC (Bld) 17.3 % Normal [facility] Comment on above: Order Comment: Speci men Type: BLOOD SPECIMENOrdering Facility: [facility] Address: [address] [place] [address] Performed By: #### 5 7021-8 ####[facility]ORATORYCLIA [id number] [address] [place] MCH (RBC) [Entitic mass] 26.5 pg Normal 26.0-34.0 [facility] Comment on above: Order Comment: Speci men Type: BLOOD SPECIMENOrdering Facility: [facility] Address: [address] [place] [address] Performed By: #### 5 7021-8 ####[facility] LABORATORYCLIA [id number] [address] MCHC (RBC) [Mass/Vol] 34.7 g/dL Normal 30.5-36.0 [facility] Comment on above: Order Comment: Speci men Type: BLOOD SPECIMENOrdering Facility: [facility] Address: [address] [place] [address] Performed By: #### 5 7021-8 ####[facility] LABORATORYCLIA [id number] [address] STATES OF [facility] MCV (RBC) [Entitic vol] 76.4 fL Low 80.0-100.0 [facility] Comment on above: Order Comment: Speci men Type: BLOOD SPECIMENOrdering Facility: [facility] Address: [address] [place] [address] Performed By: #### 5 7021-8 ####[facility] LABORATORYCLIA [id number] [address] Monocytes (Bld) [#/Vol] 0.53 10*3/uL Normal <0.87 [facility] Comment on above: Order Comment: Speci men Type: BLOOD SPECIMENOrdering Facility: [facility] Address: [address] [place] [address] Performed By: #### 5 7021-8 ####[facility] LABORATORYCLIA [id number] [address] Monocytes/100 WBC (Bld) 4.2 % Normal [facility] Comment on above: Order Comment: Speci men Type: BLOOD SPECIMENOrdering Facility: [facility] Address: [address] [place] [address] Performed By: #### 5 7021-8 ####[facility] LABORATORYCLIA [id number] [address] [place] Neutrophils (Bld) [#/Vol] 9.83 10*3/uL High 1.45-7.50 [facility] Comment on above: Order Comment: Speci men Type: BLOOD SPECIMENOrdering Facility: [facility] Address: [address] [place] [address] Performed By: #### 5 7021-8 ####[facility] LABORATORYCLIA [id number] [address] [place] Neutrophils/100 WBC (Bld) 77.3 % Normal [facility] Comment on above: Order Comment: Speci men Type: BLOOD SPECIMENOrdering Facility: [facility] Address: [address] [place] [address] Performed By: #### 5 7021-8 ####[facility] LABORATORYCLIA [id number] [place] [address] [place] Nucleated RBC (Bld) [#/Vol] 10*3/uL Normal <0.01 [facility] Comment on above: Order Comment: Speci men Type: BLOOD SPECIMENOrdering Facility: [facility] Address: [address] [place] [address] Performed By: #### 5 7021-8 ####[facility] LABORATORYCLIA [id number] [address] [place] Nucleated RBC/100 WBC (Bld) [Ratio] 0.0 /100 WBC Normal [facility] Comment on above: Order Comment: Speci men Type: BLOOD SPECIMENOrdering Facility: [facility] Address: [address] [place] [address] Performed By: #### 5 7021-8 ####[facility] LABORATORYCLIA [id number] [address] [place] Platelet mean volume (Bld) [Entitic vol] 9.8 fL Normal 9.0-12.7 [facility] Comment on above: Order Comment: Speci men Type: BLOOD SPECIMENOrdering Facility: [facility] Address: [address] [place] [address] Performed By: #### 5 7021-8 ####[facility] LABORATORYCLIA [id number] [place] [address] [place] Platelets (Bld) [#/Vol] 210 10*3/uL Normal 150-400 [facility] Comment on above: Order Comment: Speci men Type: BLOOD SPECIMENOrdering Facility: [facility] Address: [address] [place] [address] Performed By: #### 5 7021-8 ####[facility] LABORATORYCLIA [id number] [place] [address] [place] RBC (Bld) [#/Vol] 4.11 10*6/uL Normal 3.90-5.20 [facility] Comment on above: Order Comment: Speci men Type: BLOOD SPECIMENOrdering Facility: [facility] Address: [address] [place] [address] Performed By: #### 5 7021-8 ####[facility] LABORATORYCLIA [id number] [address] [place] WBC (Bld) [#/Vol] 12.71 10*3/uL High 3.70-11.00 [facility] Comment on above: Order Comment: Speci men Type: BLOOD SPECIMENOrdering Facility: [facility] Address: [address] [place] [address] Performed By: #### 5 7021-8 ####[facility] LABORATORYCLIA [id number] [place] [address] [place] Basophils (Bld) [#/Vol] 0.05 10*3/uL Normal <0.11 [facility] Comment on above: Order Comment: Speci men Type: BLOOD SPECIMENOrdering Facility: [facility] Address: [address] [place] [address] Performed By: #### 5 7021-8 ####[facility] LABORATORYCLIA [id number] [address] OF [place] Basophils/100 WBC (Bld) 0.4 % Normal [facility] Comment on above: Order Comment: Speci men Type: BLOOD SPECIMENOrdering Facility: [facility] Address: [address] [place] [address] Performed By: #### 5 7021-8 ####[facility]ORATORYCLIA [id number] [address] Differential cell count method Nom (Bld) Auto Normal [facility] Comment on above: Order Comment: Speci men Type: BLOOD SPECIMENOrdering Facility: [facility] Address: [address] [place] [address] Performed By: #### 5 7021-8 ####[facility] LABORATORYCLIA [id number] [address] [place] Eosinophils (Bld) [#/Vol] 0.03 10*3/uL Normal <0.46 [facility] Comment on above: Order Comment: Speci men Type: BLOOD SPECIMENOrdering Facility: [facility] Address: [address] [place] [address] Performed By: #### 5 7021-8 ####[facility] LABORATORYCLIA [id number] [address] Eosinophils/100 WBC (Bld) 0.2 % Normal [facility] Comment on above: Order Comment: Speci men Type: BLOOD SPECIMENOrdering Facility: [facility] Address: [address] [place] [address] Performed By: #### 5 7021-8 ####[facility] LABORATORYCLIA [id number] [address] Erythrocyte distribution width (RBC) [Ratio] 13.3 % Normal 11.5-15.0 [facility] Comment on above: Order Comment: Speci men Type: BLOOD SPECIMENOrdering Facility: [facility] Address: [address] [place] [address] Performed By: #### 5 7021-8 ####[facility] LABORATORYCLIA [id number] [address] [place] Hematocrit (Bld) [Volume fraction] 35.1 % Low 36.0-46.0 [facility] Comment on above: Order Comment: Speci men Type: BLOOD SPECIMENOrdering Facility: [facility] Address: [address] [place] [address] Performed By: #### 5 7021-8 ####[facility]ORATORYCLIA [id number] [address] Immature granulocytes (Bld) [#/Vol] 0.09 10*3/uL Normal <0.10 [facility] Comment on above: Order Comment: Speci men Type: BLOOD SPECIMENOrdering Facility: [facility] Address: [address] [place] [address] Performed By: #### 5 7021-8 ####[facility] LABORATORYCLIA [id number] [address] Immature granulocytes/100 WBC (Bld) 0.7 % Normal [facility] Comment on above: Order Comment: Speci men Type: BLOOD SPECIMENOrdering Facility: [facility] Address: [address] [place] [address] Performed By: #### 5 7021-8 ####[facility] LABORATORYCLIA [id number] [address] [place] Lymphocytes (Bld) [#/Vol] 1.68 10*3/uL Normal 1.00-4.00 [facility] Comment on above: Order Comment: Speci men Type: BLOOD SPECIMENOrdering Facility: [facility] Address: [address] [place] [address] Performed By: #### 5 7021-8 ####[facility]ORATORYCLIA [id number] [address] Lymphocytes/100 WBC (Bld) 13.0 % Normal [facility] Comment on above: Order Comment: Speci men Type: BLOOD SPECIMENOrdering Facility: [facility] Address: [address] [place] [address] Performed By: #### 5 7021-8 ####[facility] LABORATORYCLIA [id number] [address] [place] MCH (RBC) [Entitic mass] 26.0 pg Normal 26.0-34.0 [facility] Comment on above: Order Comment: Speci men Type: BLOOD SPECIMENOrdering Facility: [facility] Address: [address] [place] [address] Performed By: #### 5 7021-8 ####[facility] LABORATORYCLIA [id number] [address] [place] MCHC (RBC) [Mass/Vol] 34.2 g/dL Normal 30.5-36.0 [facility] Comment on above: Order Comment: Speci men Type: BLOOD SPECIMENOrdering Facility: [facility] Address: [address] [place] [address] Performed By: #### 5 7021-8 ####[facility] LABORATORYCLIA [id number] [address] [place] MCV (RBC) [Entitic vol] 76.1 fL Low 80.0-100.0 [facility] Comment on above: Order Comment: Speci men Type: BLOOD SPECIMENOrdering Facility: [facility] Address: [address] [place] [address] Performed By: #### 5 7021-8 ####[facility] LABORATORYCLIA [id number] [address] [place] Monocytes (Bld) [#/Vol] 0.38 10*3/uL Normal <0.87 [facility] Comment on above: Order Comment: Speci men Type: BLOOD SPECIMENOrdering Facility: [facility] Address: [address] [place] [address] Performed By: #### 5 7021-8 ####[facility] LABORATORYCLIA [id number] [address] Monocytes/100 WBC (Bld) 2.9 % Normal [facility] Comment on above: Order Comment: Speci men Type: BLOOD SPECIMENOrdering Facility: [facility] Address: [address] [place] [address] Performed By: #### 5 7021-8 ####[facility] LABORATORYCLIA [id number] [place] [address] [place] Neutrophils (Bld) [#/Vol] 10.74 10*3/uL High 1.45-7.50 [facility] Comment on above: Order Comment: Speci men Type: BLOOD SPECIMENOrdering Facility: [facility] Address: [address] [place] [address] Performed By: #### 5 7021-8 ####[facility] LABORATORYCLIA [id number] [place] [address] [place] Neutrophils/100 WBC (Bld) 82.8 % Normal [facility] Comment on above: Order Comment: Speci men Type: BLOOD SPECIMENOrdering Facility: [facility] Address: [facility] [place] [address] Performed By: #### 5 7021-8 ####[facility] LABORATORYCLIA [id number] [place] [address] [place] Nucleated RBC (Bld) [#/Vol] 10*3/uL Normal <0.01 [facility] Comment on above: Order Comment: Speci men Type: BLOOD SPECIMENOrdering Facility: [facility] Address: [address] [place] [address] Performed By: #### 5 7021-8 ####[facility] LABORATORYCLIA [id number] [address] [place] Nucleated RBC/100 WBC (Bld) [Ratio] 0.0 /100 WBC Normal [facility] Comment on above: Order Comment: Speci men Type: BLOOD SPECIMENOrdering Facility: [facility] Address: [address] [place] [address] Performed By: #### 5 7021-8 ####[facility] LABORATORYCLIA [id number] [address] [place] Platelet mean volume (Bld) [Entitic vol] 9.5 fL Normal 9.0-12.7 [facility] Comment on above: Order Comment: Speci men Type: BLOOD SPECIMENOrdering Facility: [facility] Address: [facility] [place] [address] Performed By: #### 5 7021-8 ####[facility] LABORATORYCLIA [id number] [address] Platelets (Bld) [#/Vol] 238 10*3/uL Normal 150-400 [facility] Comment on above: Order Comment: Speci men Type: BLOOD SPECIMENOrdering Facility: [facility] Address: [address] [place] [address] Performed By: #### 5 7021-8 ####[facility] LABORATORYCLIA [id number] [address] RBC (Bld) [#/Vol] 4.61 10*6/uL Normal 3.90-5.20 [facility] Comment on above: Order Comment: Speci men Type: BLOOD SPECIMENOrdering Facility: [facility] Address: [address] [place] [address] Performed By: #### 5 7021-8 ####[facility] LABORATORYCLIA [id number] [address] WBC (Bld) [#/Vol] 12.97 10*3/uL High 3.70-11.00 [facility] Comment on above: Order Comment: Speci men Type: BLOOD SPECIMENOrdering Facility: [facility] Address: [address] [place] [address] Performed By: #### 5 7021-8 ####[facility] LABORATORYCLIA [id number] [address] CBC panel Auto (Bld)on 09-17 Erythrocyte distribution width (RBC) [Ratio] 13.8 % Normal 11.5-15.0 [facility] Comment on above: Order Comment: Speci men Type: BLOOD SPECIMENOrdering Facility: [facility] Address: [address] [place] [address] Performed By: #### 5 8410-2 ####[facility] LABORATORYCLIA [id number] [address] Hematocrit (Bld) [Volume fraction] 31.7 % Low 36.0-46.0 [facility] Comment on above: Order Comment: Speci men Type: BLOOD SPECIMENOrdering Facility: [facility] Address: [address] [place] [address] Performed By: #### 5 8410-2 ####[facility] LABORATORYCLIA [id number] [address] [place] Hemoglobin (Bld) [Mass/Vol] 10.9 g/dL Low 11.5-15.5 [facility] Comment on above: Order Comment: Speci men Type: BLOOD SPECIMENOrdering Facility: [facility] Address: [address] [place] [address] Performed By: #### 5 8410-2 ####[facility] LABORATORYCLIA [id number] [place] [address] [place] MCH (RBC) [Entitic mass] 26.3 pg Normal 26.0-34.0 [facility] Comment on above: Order Comment: Speci men Type: BLOOD SPECIMENOrdering Facility: [facility] Address: [address] [place] [address] Performed By: #### 5 8410-2 ####[facility] LABORATORYCLIA [id number] [place] [address] [place] MCHC (RBC) [Mass/Vol] 34.4 g/dL Normal 30.5-36.0 [facility] Comment on above: Order Comment: Speci men Type: BLOOD SPECIMENOrdering Facility: [facility] Address: [address] [place] [address] Performed By: #### 5 8410-2 ####[facility] LABORATORYCLIA [id number] [place] [address] [place] MCV (RBC) [Entitic vol] 76.6 fL Low 80.0-100.0 [facility] Comment on above: Order Comment: Speci men Type: BLOOD SPECIMENOrdering Facility: [facility] Address: [address] [place] [address] Performed By: #### 5 8410-2 ####[facility] LABORATORYCLIA [id number] [place] [address] [place] Nucleated RBC (Bld) [#/Vol] 10*3/uL Normal <0.01 [facility] Comment on above: Order Comment: Speci men Type: BLOOD SPECIMENOrdering Facility: [facility] Address: [address] [place] [address] Performed By: #### 5 8410-2 ####[facility] LABORATORYCLIA [id number] [address] [place] Platelet mean volume (Bld) [Entitic vol] 9.4 fL Normal 9.0-12.7 [facility] Comment on above: Order Comment: Speci men Type: BLOOD SPECIMENOrdering Facility: [facility] Address: [address] [place] [address] Performed By: #### 5 8410-2 ####[facility] LABORATORYCLIA [id number] [address] [place] Platelets (Bld) [#/Vol] 211 10*3/uL Normal 150-400 [facility] Comment on above: Order Comment: Speci men Type: BLOOD SPECIMENOrdering Facility: [facility] Address: [address] [place] [address] Performed By: #### 5 8410-2 ####[facility] LABORATORYCLIA [id number] [place] [address] [place] RBC (Bld) [#/Vol] 4.14 10*6/uL Normal 3.90-5.20 [facility] Comment on above: Order Comment: Speci men Type: BLOOD SPECIMENOrdering Facility: [facility] Address: [address] [place] [address] Performed By: #### 5 8410-2 ####[facility] LABORATORYCLIA [id number] [address] [place] WBC (Bld) [#/Vol] 10.81 10*3/uL Normal 3.70-11.00 [facility] Comment on above: Order Comment: Speci men Type: BLOOD SPECIMENOrdering Facility: [facility] Address: [address] [place] [address] Performed By: #### 5 8410-2 ####[facility] LABORATORYCLIA [id number] [address] [place] CONSULT PROGon 09-18-2023 CONSULT PROG Normal [facility] CONSULT PROG Normal [facility] CYTOLOGY NON-GYNon CASE REPORT Normal [facility] Comment on above: Order Comment: Speci men Type: FLUID SPECIMENOrdering Facility: [facility] Address: [address] [place] [address] Result Comment: Medi kylie Cytology Report Case: [id number] Provider: Yeu Valdez, Collected: 09/18/2023 03:37 PM SHALE PLANER OPERATOR.CNPOrdering Location: [place] [address] NE[facility] ICU Received: 09/20/2023 04:00 AMPathologist: Mayda Fan MDSpecimen: CEREBROSPINAL FLUID. Performed By: #### C YTONON ####[facility] LABORATORYCLIA [id number] [address] CLINICAL HISTORY concern for meningitis Normal [facility] Comment on above: Order Comment: Speci men Type: FLUID SPECIMENOrdering Facility: [facility] Address: [address] [place] [address] Performed By: #### C YTONON ####[facility]ORATORYCLIA [id number] [address] [place] FINAL DIAGNOSIS Normal [facility] Comment on above: Order Comment: Speci men Type: FLUID SPECIMENOrdering Facility: [facility] Address: [address] [place] [address] Result Comment: A - CEREBROSPINAL FLUID. Negative for malignant cells. Blood elements. Performed By: #### C YTONON ####[facility] LABORATORYCLIA [id number] [address] OF [place] FINAL PERFORMING LAB Normal [facility] Comment on above: Order Comment: Speci men Type: FLUID SPECIMENOrdering Facility: [facility] Address: [address] [place] [address] Result Comment: Tech nical component, assistant professor of english screening performed at [facility], [address] [place] [address] CLIA# [id number] interpretation performed at [facility], [address] [place] [address] CLIA# [id number] Director: Long Rosenbaum M.D. Performed By: #### C YTONON ####[facility] LABORATORYCLIA [id number] [address] STATES OF [facility] GROSS DESCRIPTION Normal [facility] Comment on above: Order Comment: Speci men Type: FLUID SPECIMENOrdering Facility: [facility] Address: [address] [place] [address] Result Comment: A. C EREBROSPINAL FLUID.4 cc clear colorless fluid. ThinPrep and Cytospin prepared. Performed By: #### C YTONON ####[facility] LABORATORYCLIA [id number] [place] [address] [place] Comprehensive metabolic 2000 panelon 09-18-2023 Albumin [Mass/Vol] 3.2 g/dL Low 3.9-4.9 [facility] Comment on above: Order Comment: Speci men Type: BLOOD SPECIMENOrdering Facility: [facility] Address: [address] [place] [address] Performed By: #### 3 016-3, 77496-5, 34604-0, 05046-2, 2777-1 ####[facility] LABORATORYCLIA [id number] [place] [address] [place] ALP [Catalytic activity/Vol] 98 U/L Normal 34-123 [facility] Comment on above: Order Comment: Speci men Type: BLOOD SPECIMENOrdering Facility: [facility] Address: [address] [place] [address] Performed By: #### 3 016-3, 62238-7, 97966-3, 86769-7, 7-1 ####[facility] LABORATORYCLIA [id number] [place], [place] [address] [place] [address] [place] ALT With P-5'-P [Catalytic activity/Vol] 11 U/L Normal 7-38 [facility] Comment on above: Order Comment: Speci men Type: BLOOD SPECIMENOrdering Facility: [facility] Address: [address] [place] [address] Performed By: #### 3 016-3, 50894-3, 95074-0, 90758-4, 2776- ####[facility] LABORATORYCLIA [id number] [address] [place] Anion gap [Moles/Vol] 12 mmol/L Normal 9-18 [facility] Comment on above: Order Comment: Speci men Type: BLOOD SPECIMENOrdering Facility: [facility] Address: [address] [place] [address] Performed By: #### 3 016-3, 44773-9, 88011-0, 61825-1, 2776-07 ####[facility] LABORATORYCLIA [id number] [address] [place] AST With P-5'-P [Catalytic activity/Vol] 17 U/L Normal 13-35 [facility] Comment on above: Order Comment: Speci men Type: BLOOD SPECIMENOrdering Facility: [facility] Address: [address] [place] [address] Performed By: #### 3 016-3, 81358-6, 71092-5, 05704-4, 2776- ####[facility] LABORATORYCLIA [id number] [place] [address] [place] Bilirubin [Mass/Vol] 0.2 mg/dL Normal 0.2-1.3 [facility] Comment on above: Order Comment: Speci men Type: BLOOD SPECIMENOrdering Facility: [facility] Address: [address] [place] [address] Performed By: #### 3 016-3, 58507-5, 47287-9, 69168-6, 2776-1 ####[facility] LABORATORYCLIA [id number] [place] [address] [place] Calcium [Mass/Vol] 7.9 mg/dL Low 8.5-10.2 [facility] Comment on above: Order Comment: Speci men Type: BLOOD SPECIMENOrdering Facility: [facility] Address: [address] [place] [address] Performed By: #### 3 016-3, 80738-7, 57182-5, 32870-5, 2776- ####[facility] LABORATORYCLIA [id number] [place] [id number] [place] Chloride [Moles/Vol] 104 mmol/L Normal 97-105 [facility] Comment on above: Order Comment: Speci men Type: BLOOD SPECIMENOrdering Facility: [facility] Address: [address] [place] [address] Performed By: #### 3 016-3, 40241-2, 45663-3, 76660-7, 2776-07 ####[facility] LABORATORYCLIA [id number] [place] [address] [place] CO2 [Moles/Vol] 22 mmol/L Normal 22-30 [facility] Comment on above: Order Comment: Speci men Type: BLOOD SPECIMENOrdering Facility: [facility] Address: [address] [place] [address] Performed By: #### 3 016-3, 55204-8, 28144-3, 42413-8, 2776-07 ####[facility] LABORATORYCLIA [id number] [place] [address] [place] Creatinine [Mass/Vol] 0.70 mg/dL Normal 0.58-0.96 [facility] Comment on above: Order Comment: Speci men Type: BLOOD SPECIMENOrdering Facility: [facility] Address: [address] [place] [address] Performed By: #### 3 016-3, 17968-3, 29442-6, , 2776-07 ####[facility] HOSPITALIA [id number] [place] [address] [place] Creatinine and Glomerular filtration rate.predicted panel (S/P/Bld) 96 mL/min/1.73m??? Normal >=60 [facility] Comment on above: Order Comment: Key ambrocio Type: BLOOD SPECIMENOrdering Facility: [facility] Address: [address] [place] [address] Result Comment: Swetha mated Glomerular Filtration Rate (eGFR) is calculated using the 2020 CKD-EPI creatinine equation. This equation utilizes serum creatinine, sex, and age as parameters. The creatinine assay has traceable calibration to isotope dilution-mass spectrometry. Refer to KDIGO guidelines for clinical interpretation. In patients with unstable renal function, e.g. those with acute kidney injury, the eGFR may not accurately reflect actual GFR. Performed By: #### 3 016-3, 79572-1, 40621-3, , 2776-07 ####[facility] HOSPITALIA [id number] [place] [address] [place] Glucose [Mass/Vol] 194 mg/dL High 74-99 [facility] Comment on above: Order Comment: Key albrecht Type: BLOOD SPECIMENOrdering Facility: [facility] Address: [address] [place] [address] Result Comment: The [place] Diabetes Association (ADA) provides guidance for cutoff values for fasting glucose and random glucose. The ADA defines fasting as no caloric intake for at least 8 hours. Fasting plasma glucose results between 100 to 125 mg/dL indicate increased risk for diabetes (prediabetes).Fasting plasma glucose results greater than or equal to 126 mg/dL meet the criteria for diagnosis of diabetes. In the absence of unequivocal hyperglycemia, results should be confirmed by repeat testing. In a patient with classic symptoms of hyperglycemia or hyperglycemic crisis, random plasma glucose results greater than or equal to 200 mg/dL meet the criteria for diagnosis of diabetes.Reference: Standards of Medical Care in Diabetes 2016, [place] Diabetes Association. Diabetes Care. 2016.39(Suppl 1). Performed By: #### 3 016-3, 53867-0, 83862-6, , 2776- ####[facility] LABORATORYCLIA [id number] [place] [address] [place] Potassium [Moles/Vol] 3.4 mmol/L Low 3.7-5.1 [facility] Comment on above: Order Comment: Speci men Type: BLOOD SPECIMENOrdering Facility: [facility] Address: [address] [place] [address] Performed By: #### 3 016-3, 36741-9, 93334-9, 82517-9, 277-1 ####[facility] LABORATORYCLIA [id number] [place] [address] [place] Protein [Mass/Vol] 6.2 g/dL Low 6.3-8.0 [facility] Comment on above: Order Comment: Speci men Type: BLOOD SPECIMENOrdering Facility: [facility] Address: [address] [place] [address] Performed By: #### 3 016-3, 34853-4, 05099-5, 00183-8, 277-1 ####[facility] LABORATORYCLIA [id number] [place] [address] [place] Sodium [Moles/Vol] 138 mmol/L Normal 136-144 [facility] Comment on above: Order Comment: Speci men Type: BLOOD SPECIMENOrdering Facility: [facility] Address: [address] [place] [address] Performed By: #### 3 016-3, 46010-0, 41006-4, 10248-5, 277-1 ####[facility] LABORATORYCLIA [id number] [place] [id number] [place] Urea nitrogen [Mass/Vol] 8 mg/dL Normal 7-21 [facility] Comment on above: Order Comment: Speci men Type: BLOOD SPECIMENOrdering Facility: [facility] Address: [address] [place] [address] Performed By: #### 3 016-3, 91671-1, 68296-0, 32564-4, 2777-1 ####[facility] LABORATORYCLIA [id number] [address] STATES OF [facility] Albumin [Mass/Vol] 3.4 g/dL Low 3.9-4.9 [facility] Comment on above: Order Comment: Speci men Type: BLOOD SPECIMENOrdering Facility: [facility] Address: [address] [place] [address] Performed By: #### 2 777-1, 56901-5, 14730-7, 16117-9 ####[facility] LABORATORYCLIA [id number] [place] [id number] [place] [facility] ALP [Catalytic activity/Vol] 118 U/L Normal 34-123 [facility] Comment on above: Order Comment: Speci men Type: BLOOD SPECIMENOrdering Facility: [facility] Address: [address] [place] [address] Performed By: #### 2 777-1, 69464-3, 67379-5, 78385-8 ####[facility] LABORATORYCLIA [id number] [address] STATES OF [facility] ALT With P-5'-P [Catalytic activity/Vol] 14 U/L Normal 7-38 [facility] Comment on above: Order Comment: Speci men Type: BLOOD SPECIMENOrdering Facility: [facility] Address: [address] [place] [address] Performed By: #### 2 777-1, 01191-1, 18491-4, 05705-0 ####[facility] LABORATORYCLIA [id number] [place] [id number] [place] [facility] Anion gap [Moles/Vol] 14 mmol/L Normal 9-18 [facility] Comment on above: Order Comment: Speci men Type: BLOOD SPECIMENOrdering Facility: [facility] Address: [address] [place] [address] Performed By: #### 2 777-1, 69409-1, 78811-5, 06491-6 ####[facility] LABORATORYCLIA [id number] [place] [id number] [place] OF [facility] AST With P-5'-P [Catalytic activity/Vol] 19 U/L Normal 13-35 [facility] Comment on above: Order Comment: Speci men Type: BLOOD SPECIMENOrdering Facility: [facility] Address: [address] [place] [address] Performed By: #### 2 777-1, 98185-8, 15492-1, 65978-5 ####[facility] LABORATORYCLIA [id number] [place] [address] [place] Bilirubin [Mass/Vol] 0.2 mg/dL Normal 0.2-1.3 [facility] Comment on above: Order Comment: Speci men Type: BLOOD SPECIMENOrdering Facility: [facility] Address: [address] [place] [address] Performed By: #### 2 777-1, 96301-0, 07307-5, 92792-5 ####[facility] LABORATORYCLIA [id number] [place] [address] [place] Calcium [Mass/Vol] 8.7 mg/dL Normal 8.5-10.2 [facility] Comment on above: Order Comment: Speci men Type: BLOOD SPECIMENOrdering Facility: [facility] Address: [address] [place] [address] Performed By: #### 2 777-1, 91357-7, 96759-5, 68745-3 ####[facility] LABORATORYCLIA [id number] [place] [address] [place] Chloride [Moles/Vol] 96 mmol/L Low 97-105 [facility] Comment on above: Order Comment: Speci men Type: BLOOD SPECIMENOrdering Facility: [facility] Address: [address] [place] [address] Performed By: #### 2 777-1, 51675-4, 67988-6, 97365-2 ####[facility] LABORATORYCLIA [id number] [place] [address] [place] CO2 [Moles/Vol] 23 mmol/L Normal 22-30 [facility] Comment on above: Order Comment: Speci men Type: BLOOD SPECIMENOrdering Facility: [facility] Address: [address] [place] [address] Performed By: #### 2 777-1, 18862-5, 60769-4, 56909-1 ####[facility] HOSPITALCLIA [id number] [place] [id number] [place] Creatinine [Mass/Vol] 0.78 mg/dL Normal 0.58-0.96 [facility] Comment on above: Order Comment: Key men Type: BLOOD SPECIMENOrdering Facility: [facility] Address: [address] [place] [address] Performed By: #### 2 777-1, 95643-7, 70205-9, 19143-1 ####[facility] HOSPITALCLIA [id number] [address] Creatinine and Glomerular filtration rate.predicted panel (S/P/Bld) 84 mL/min/1.73m??? Normal >=60 [facility] Comment on above: Order Comment: Key [facility] Type: BLOOD SPECIMENOrdering Facility: [facility] Address: [address] [place] [address] Result Comment: Swetha mated Glomerular Filtration Rate (eGFR) is calculated using the 2020 CKD-EPI creatinine equation. This equation utilizes serum creatinine, sex, and age as parameters. The creatinine assay has traceable calibration to isotope dilution-mass spectrometry. Refer to KDIGO guidelines for clinical interpretation. In patients with unstable renal function, e.g. those with acute kidney injury, the eGFR may not accurately reflect actual GFR. Performed By: #### 2 777-1, 91459-3, 04414-7, 70228-3 ####[facility] LABORATORYCLIA [id number] [place] [id number] [place] Glucose [Mass/Vol] 339 mg/dL High 74-99 [facility] Comment on above: Order Comment: Key albrecht Type: BLOOD SPECIMENOrdering Facility: [facility] Address: [address] [place] [address] Result Comment: The [place] Diabetes Association (ADA) provides guidance for cutoff values for fasting glucose and random glucose. The ADA defines fasting as no caloric intake for at least 8 hours. Fasting plasma glucose results between 100 to 125 mg/dL indicate increased risk for diabetes (prediabetes).Fasting plasma glucose results greater than or equal to 126 mg/dL meet the criteria for diagnosis of diabetes. In the absence of unequivocal hyperglycemia, results should be confirmed by repeat testing. In a patient with classic symptoms of hyperglycemia or hyperglycemic crisis, random plasma glucose results greater than or equal to 200 mg/dL meet the criteria for diagnosis of diabetes.Reference: Standards of Medical Care in Diabetes 2016, [place] Diabetes Association. Diabetes Care. 2016.39(Suppl 1). Performed By: #### 2 777-1, 97310-7, 79252-0, 52855-4 ####[facility] LABORATORYCLIA [id number] [place] [address] [place] Potassium [Moles/Vol] 4.2 mmol/L Normal 3.7-5.1 [facility] Comment on above: Order Comment: Speci men Type: BLOOD SPECIMENOrdering Facility: [facility] Address: [address] [place] [address] Performed By: #### 2 777-1, 61951-6, 67506-1, 17640-6 ####[facility]PITALCLIA [id number] [place] [address] [place] Protein [Mass/Vol] 7.0 g/dL Normal 6.3-8.0 [facility] Comment on above: Order Comment: Speci men Type: BLOOD SPECIMENOrdering Facility: [facility] Address: [address] [place] [address] Performed By: #### 2 777-1, 36867-3, 32180-2, 19761-6 ####[facility] LABORATORYCLIA [id number] [place] [id number] [place] Sodium [Moles/Vol] 133 mmol/L Low 136-144 [facility] Comment on above: Order Comment: Speci men Type: BLOOD SPECIMENOrdering Facility: [facility] Address: [address] [place] [address] Performed By: #### 2 777-1, 06698-0, 71118-7, 39388-0 ####[facility] LABORATORYCLIA [id number] [place] [address] [place] Urea nitrogen [Mass/Vol] 10 mg/dL Normal - [facility] Comment on above: Order Comment: Key albrecht Type: BLOOD SPECIMENOrdering Facility: [facility] Address: [address] [place] [address] Performed By: #### 2 777-1, 82536-0, 31254-1, 40284-5 ####[facility] LABORATORYCLIA [id number] [place] [address] [place] ECG COMPLETEon 09-18-2023 ECG COMPLETE Normal [facility] ECHO WITH AGITATED SALINE CO NTRASTon 09-18-2023 ECHO WITH AGITATED SALINE CONTRAST Normal [facility] HIGH SENSITIVITY TROPONIN To n 09-18-2023 Troponin T.cardiac High sensitivity method [Mass/Vol] 21 ng/L High <12 [facility] Comment on above: Order Comment: Key albrecht Type: BLOOD SPECIMENOrdering Facility: [facility] Address: [address] [place] [address] Result Comment: When assessing risk for acute coronary syndromes: In patients undergoing blood draw greater than or equal to 2 hours from symptom onset, with history of very low to moderate risk and non-ischemic ECG, an initial hs-Troponin T less than 12 ng/L AND a 1 hour delta hs-Troponin T less than 3 ng/L should be considered very low risk for 30 day MACE. Performed By: #### H STNT ####[facility] LABORATORYCLIA [id number] [address] [place] Troponin T.cardiac High sensitivity method [Mass/Vol] 21 ng/L High <12 [facility] Comment on above: Order Comment: Key albrecht Type: BLOOD SPECIMENOrdering Facility: [facility] Address: [address] [place] [address] Result Comment: When assessing risk for acute coronary syndromes: In patients undergoing blood draw greater than or equal to 2 hours from symptom onset, with history of very low to moderate risk and non-ischemic ECG, an initial hs-Troponin T less than 12 ng/L AND a 1 hour delta hs-Troponin T less than 3 ng/L should be considered very low risk for 30 day MACE. Performed By: #### H STNT ####[facility]ORATORYCLIA [id number] [place] [address] [place] HISTORY PHYSICALon HISTORY PHYSICAL Normal [facility] HbA1c (Bld)on 09-18-2023 Average glucose Estimated from glycated hemoglobin (Bld) [Mass/Vol] 220 mg/dL Normal [facility] Comment on above: Order Comment: Key albrecht Type: BLOOD SPECIMENOrdering Facility: [facility] Address: [address] [place] [address] Result Comment: eAG: (Estimated average glucose) is a calculated value from HgbA1c and is customer account representative of the average blood glucose level in the last 2-3 month period. Performed By: #### 5 5454-3 ####[facility] LABCLIA [id number] [address] STATES OF [place] HbA1c (Bld) [Mass fraction] 9.3 % High 4.3-5.6 [facility] Comment on above: Order Comment: Key albrecht Type: BLOOD SPECIMENOrdering Facility: [facility] Address: [address] [place] [address] Result Comment: [place] Diabetes Association guidelines indicate that patients with HgbA1c in the range 5.7-6.4% are at increased risk for development of diabetes, and intervention by lifestyle modification may be beneficial. HgbA1c greater or equal to 6.5% is considered diagnostic of diabetes. Performed By: #### 5 5454-3 ####[facility] LABCLIA [id number] [place] [address] [place] Lactate (Bld) [Moles/Vol]on 09-18-2023 Lactate [Moles/Vol] 1.1 mmol/L Normal 0.5-2.2 [facility] Comment on above: Order Comment: Key albrecht Type: BLOOD SPECIMENOrdering Facility: [facility] Address: [address] [place], [place] [address] Performed By: #### 3 2693-4 ####[facility] LABORATORYCLIA [id number] [place] [address] [place] Lactate [Moles/Vol] 2.8 mmol/L High 0.5-2.2 [facility] Comment on above: Order Comment: Speci men Type: BLOOD SPECIMENOrdering Facility: [facility] Address: [address] [place] [address] Performed By: #### 3 2693-4 ####[facility] LABORATORYCLIA [id number] [place] [address] [place] Lactate [Moles/Vol] 4.3 mmol/L High 0.5-2.2 [facility] Comment on above: Order Comment: Speci men Type: BLOOD SPECIMENOrdering Facility: [facility] Address: [address] [place] [address] Performed By: #### 3 2693-4 ####[facility] LABORATORYCLIA [id number] [place] [address] [place] MRI BRAIN WO/W IVCONon 09-17 MRI BRAIN WO/W IVCON Normal [facility] MRI CERVICAL SPINE WO/W IVCO Non 09-18-2023 MRI CERVICAL SPINE WO/W IVCON Normal [facility] Magnesium SerPl-mCncon 09-17 Magnesium [Mass/Vol] 1.4 mg/dL Low 1.7-2.3 [facility] Comment on above: Order Comment: Speci men Type: BLOOD SPECIMENOrdering Facility: [facility] Address: [address] [place] [address] Performed By: #### 3 016-3, 26499-4, 34423-2, 76611-5, 2777-1 ####[facility]ORATORYCLIA [id number] [place] [address] [place] Magnesium [Mass/Vol] 1.5 mg/dL Low 1.7-2.3 [facility] Comment on above: Order Comment: Speci men Type: BLOOD SPECIMENOrdering Facility: [facility] Address: [address] [place] [address] Performed By: #### 2 777-1, 69303-2, 10469-0, 33616-2 ####[facility] LABORATORYCLIA [id number] [address] OF [place] Meningitis+Encephalitis path ogens DNA and RNA panel DAYANA+non-probe (CSF)on 09-18-2023 C. gattii+neoformans DNA DAYANA+non-probe Ql (CSF) Not detected Normal Not detected [facility] Comment on above: Order Comment: Speci men Type: CEREBROSPINAL FLUID SPECIMENOrdering Facility: [facility] Address: [address] [place] [address] Performed By: #### 8 218-1 ####[facility] LABORATORYCLIA [id number] [address] OF [place] CMV DNA DAYANA+non-probe Ql (CSF) Not detected Normal Not detected [facility] Comment on above: Order Comment: Speci men Type: CEREBROSPINAL FLUID SPECIMENOrdering Facility: [facility] Address: [address] [place] [address] Performed By: #### 8 2179-1 ####[facility] LABORATORYCLIA [id number] [address] OF [place] E. coli K1 DNA DAYANA+non-probe Ql (CSF) Not detected Normal Not detected [facility] Comment on above: Order Comment: Speci men Type: CEREBROSPINAL FLUID SPECIMENOrdering Facility: [facility] Address: [address] [place] [address] Performed By: #### 8 0-1 ####[facility] LABORATORYCLIA [id number] [address] Enterovirus RNA DAYANA+non-probe Ql (CSF) Not detected Normal Not detected [facility] Comment on above: Order Comment: Speci men Type: CEREBROSPINAL FLUID SPECIMENOrdering Facility: [facility] Address: [address] [place] [address] Performed By: #### 8 0-1 ####[facility]ATORYCLIA [id number] [address] OF [place] H. influenzae DNA DAYANA+non-probe Ql (CSF) Not detected Normal Not detected [facility] Comment on above: Order Comment: Speci men Type: CEREBROSPINAL FLUID SPECIMENOrdering Facility: [facility] Address: [address] [place] [address] Performed By: #### 8 2180-1 ####[facility] LABORATORYCLIA [id number] [address] OF [place] HHV 6 DNA DAYANA+non-probe Ql (CSF) Not detected Normal Not detected [facility] Comment on above: Order Comment: Speci men Type: CEREBROSPINAL FLUID SPECIMENOrdering Facility: [facility] Address: [address] [place] [address] Performed By: #### 8 2180-1 ####[facility] LABORATORYCLIA [id number] [address] [place] HSV 1 DNA DAYANA+non-probe Ql (CSF) Not detected Normal Not detected [facility] Comment on above: Order Comment: Speci men Type: CEREBROSPINAL FLUID SPECIMENOrdering Facility: [facility] Address: [address] [place] [address] Performed By: #### 8 2180-1 ####[facility] LABORATORYCLIA [id number] [address] OF [place] HSV 2 DNA DAYANA+non-probe Ql (CSF) Not detected Normal Not detected [facility] Comment on above: Order Comment: Speci men Type: CEREBROSPINAL FLUID SPECIMENOrdering Facility: [facility] Address: [address] [place] [address] Performed By: #### 8 2180-1 ####[facility] LABORATORYCLIA [id number] [address] OF [place] L. monocytogenes DNA DAYANA+non-probe Ql (CSF) Not detected Normal Not detected [facility] Comment on above: Order Comment: Speci men Type: CEREBROSPINAL FLUID SPECIMENOrdering Facility: [facility] Address: [address] [place] [address] Performed By: #### 8 2180-1 ####[facility] LABORATORYCLIA [id number] [address] N. meningitidis DNA DAYANA+non-probe Ql (CSF) Not detected Normal Not detected [facility] Comment on above: Order Comment: Speci men Type: CEREBROSPINAL FLUID SPECIMENOrdering Facility: [facility] Address: [address] [place] [address] Performed By: #### 8 2180-1 ####[facility] LABORATORYCLIA [id number] [address] [place] Parechovirus A RNA DAYANA+non-probe Ql (CSF) Not detected Normal Not detected [facility] Comment on above: Order Comment: Speci men Type: CEREBROSPINAL FLUID SPECIMENOrdering Facility: [facility] Address: [address] [place] [address] Performed By: #### 8 2180-1 ####[facility] LABORATORYCLIA [id number] [address] [place] S. agalactiae DNA DAYANA+non-probe Ql (CSF) Not detected Normal Not detected [facility] Comment on above: Order Comment: Speci men Type: CEREBROSPINAL FLUID SPECIMENOrdering Facility: [facility] Address: [address] [place] [address] Performed By: #### 8 2180-1 ####[facility] LABORATORYCLIA [id number] [address] OF [place] S. pneumoniae DNA DAYANA+non-probe Ql (CSF) Not detected Normal Not detected [facility] Comment on above: Order Comment: Speci men Type: CEREBROSPINAL FLUID SPECIMENOrdering Facility: [facility] Address: [address] [place] [address] Performed By: #### 8 2180-1 ####[facility] LABORATORYCLIA [id number] [address] OF [place] VZV DNA DAYANA+non-probe Ql (CSF) Not detected Normal Not detected [facility] Comment on above: Order Comment: Speci men Type: CEREBROSPINAL FLUID SPECIMENOrdering Facility: [facility] Address: [address] [place] [address] Performed By: #### 8 2180-1 ####[facility] LABORATORYCLIA [id number] [place] [id number] [place] [facility] PT panel Coag (PPP)on 2023 INR Coag (PPP) [Relative time] 1.0 {INR} Normal 0.9-1.3 [facility] Comment on above: Order Comment: Speci men Type: BLOOD SPECIMENOrdering Facility: [facility] Address: [address] [place] [address] Result Comment: Karis min K Antagonist (VKA) Therapeutic Range: INR 2 to 3 (Target INR of 2.5)Note: For patients treated with VKA drugs, such as warfarin, the [employer] 2012 Guideline recommends a therapeutic INR range of 2 to 3 (target INR of 2.5). This recommendation includes high-risk patients with antiphospholipid syndrome with previous arterial or venous thromboembolism, current-generation mechanical or bioprosthetic aortic heart valve replacement.Note: Patients with mechanical aortic valve replacement and additional risk factors for thromboembolic events (atrial fibrillation, previous thromboembolism, LV dysfunction, hypercoagulable conditions) or an older generation mechanical AVR (i.e., ball in-Cage) or any mechanical MVR should have a INR therapeutic range of 2.5 to 3.5 (target INR of 3).Isidoro MONSIVAIS, et al. Chest 2012, 141:7S-47SNishimnicholas RA, et al. [facility] 2017, 70: 252-289 Performed By: #### 3 4528-0, 18887-9 ####[facility] LABORATORYCLIA [id number] [place] [address] [place] PT Coag (PPP) [Time] 10.3 s Normal 9.7-13.0 [facility] Comment on above: Order Comment: Speci men Type: BLOOD SPECIMENOrdering Facility: [facility] Address: [address] [place] [id number] Performed By: #### 3 4528-0, 07524-7 ####[facility] LABORATORYCLIA [id number] [place] [address] [place] Phosphate SerPl-mCncon 09-17 Phosphate [Mass/Vol] 2.9 mg/dL Normal 2.7-4.8 [facility] Comment on above: Order Comment: Speci men Type: BLOOD SPECIMENOrdering Facility: [facility] Address: [address] [place] [address] Performed By: #### 3 016-3, 66966-3, 91148-1, 92544-5, 2776-1 ####[facility] LABORATORYCLIA [id number] [place] [address] [place] Phosphate [Mass/Vol] 4.1 mg/dL Normal 2.7-4.8 [facility] Comment on above: Order Comment: Speci men Type: BLOOD SPECIMENOrdering Facility: [facility] Address: [address] [place] [address] Performed By: #### 2 777-1, 03312-8, 25620-3, 17764-3 ####[facility] HOSPITALCLIA [id number] [address] STATES [place] Procalcitonin SerPl-mCncon 0 09-18-2023 Procalcitonin [Mass/Vol] ng/mL Normal <0.09 [facility] Comment on above: Order Comment: Speci men Type: BLOOD SPECIMENOrdering Facility: [facility] Address: [address] [place] [address] Result Comment: For a guided interpretation of test results, please visit the Change in Procalcitonin Calculator, [email or web address]. Performed By: #### 3 016-3, 02988-1, 74840-3, 59910-4, 277-1 ####[facility] LABORATORYCLIA [id number] [address] STATES [place] Procalcitonin [Mass/Vol] 0.08 ng/mL Normal <0.09 [facility] Comment on above: Order Comment: Speci men Type: BLOOD SPECIMENOrdering Facility: [facility] Address: [address] [place] [address] Result Comment: For a guided interpretation of test results, please visit the Change in Procalcitonin Calculator, [email or web address]. Performed By: #### 2 777-1, 70453-7, 54993-6, 25294-8 ####[facility] LABORATORYCLIA [id number] [address] OF [place] STAPH AUREUS PCRon 4 S. aureus and MRSA panel DAYANA+probe (Nose) Normal Negative [facility] Comment on above: Order Comment: Speci men Type: SWAB OF INTERNAL NOSEOrdering Facility: [facility] Address: [address] [place] [address] Result Comment: Nega tive for Staphylococcus aureus by PCR.Negative for MRSA by PCR Performed By: #### S APCR ####[facility] LABORATORYCLIA [id number] [address] STATES OF [facility] THERAPY NTon 09-18-2023 THERAPY NT Normal [facility] THERAPY NT Normal [facility] TOX SCREEN ROUT URon 024 Amphetamines Confirm (U) [Mass/Vol] Negative Normal Negative [facility] Comment on above: Order Comment: Speci men Type: URINE SPECIMENOrdering Facility: [facility] Address: [address] [place] [address] Result Comment: Cuto ff threshold at 1000 ng/mL. Performed By: #### U TOX2 ####[facility] LABORATORYCLIA [id number] [address] STATES OF [place] BARBITURATES, URINE Negative Normal Negative [facility] Comment on above: Order Comment: Speci men Type: URINE SPECIMENOrdering Facility: [facility] Address: [address] [place] [address] Result Comment: Cuto ff threshold at 200 ng/mL. Performed By: #### U TOX2 ####[facility] LABORATORYCLIA [id number] [place] [address] [place] BENZODIAZEPINES, UR Positive Abnormal Negative [facility] Comment on above: Order Comment: Speci men Type: URINE SPECIMENOrdering Facility: [facility] Address: [address] [place] [address] Result Comment: Cuto ff threshold at 200 ng/mL. Performed By: #### U TOX2 ####[facility]ORATORYCLIA [id number] [address] OF [facility] Cannabinoids Screen Ql (U) Negative Normal Negative [facility] Comment on above: Order Comment: Speci men Type: URINE SPECIMENOrdering Facility: [facility] Address: [address] [place] [address] Result Comment: Cuto ff threshold at 50 ng/mL. Performed By: #### U TOX2 ####[facility]ATORYCLIA [id number] [address] Cocaine Ql (U) Negative Normal Negative [facility] Comment on above: Order Comment: Speci men Type: URINE SPECIMENOrdering Facility: [facility] Address: [address] [place] [address] Result Comment: Cuto ff threshold at 300 ng/mL. Performed By: #### U TOX2 ####[facility] LABORATORYCLIA [id number] [address] [place] Ethanol (U) [Mass/Vol] <11 Normal <11 [facility] Comment on above: Order Comment: Speci men Type: URINE SPECIMENOrdering Facility: [facility] Address: [address] [place] [address] Performed By: #### U TOX2 ####[facility]ATORYCLIA [id number] [address] OF [facility] Opiates Screen Ql (U) Negative Normal Negative [facility] Comment on above: Order Comment: Speci men Type: URINE SPECIMENOrdering Facility: [facility] Address: [address] [place] [address] Result Comment: Cuto ff threshold at 300 ng/mL. Performed By: #### U TOX2 ####[facility]ATORYCLIA [id number] [address] [place] oxyCODONE cutoff Screen (U) [Mass/Vol] Negative Normal Negative [facility] Comment on above: Order Comment: Speci men Type: URINE SPECIMENOrdering Facility: [facility] Address: [address] [place] [address] Result Comment: Cuto ff threshold at 100 ng/mL. Performed By: #### U TOX2 ####[facility] LABORATORYCLIA [id number] [address] Phencyclidine Ql (U) Negative Normal Negative [facility] Comment on above: Order Comment: Speci men Type: URINE SPECIMENOrdering Facility: [facility] Address: [address] [place] [address] Result Comment: Cuto ff threshold at 25 ng/mL. Performed By: #### U TOX2 ####[facility] LABORATORYCLIA [id number] [address] [place] TSH SerPl-aCncon 09-18-2023 TSH Qn 0.866 m[IU]/L Normal 0.270-4.200 [facility] Comment on above: Order Comment: Speci men Type: BLOOD SPECIMENOrdering Facility: [facility] Address: [address] [place] [address] Performed By: #### 3 016-3, 65143-6, 58557-6, 63895-4, 2777-1 ####[facility] LABORATORYCLIA [id number] [address] STATES [place] URINALYSIS, DIPSTICK ONLYon 09-18-2023 Bilirubin Ql (U) Negative Normal Negative [facility] Comment on above: Order Comment: Speci men Type: URINE SPECIMENOrdering Facility: [facility] Address: [address] [place] [address] Performed By: #### U A ####[facility] LABORATORYCLIA [id number] [address] [place] Clarity (Unsp spec) Clear Normal Clear [facility] Comment on above: Order Comment: Speci men Type: URINE SPECIMENOrdering Facility: [facility] Address: [address] [place] [address] Performed By: #### U A ####[facility] LABORATORYCLIA [id number] [address] Color (U) Colorless Normal yellow [facility] Comment on above: Order Comment: Speci men Type: URINE SPECIMENOrdering Facility: [facility] Address: [address] [place] [address] Performed By: #### U A ####[facility] LABORATORYCLIA [id number] [address] Glucose Test strip (U) [Mass/Vol] 4+ Abnormal Trace, Negative [facility] Comment on above: Order Comment: Speci men Type: URINE SPECIMENOrdering Facility: [facility] Address: [address] [place] [address] Performed By: #### U A ####[facility] LABORATORYCLIA [id number] [address] Hemoglobin Ql (U) 1+ Abnormal Negative, Trace [facility] Comment on above: Order Comment: Speci men Type: URINE SPECIMENOrdering Facility: [facility] Address: [address] [place] [address] Performed By: #### U A ####[facility] LABORATORYCLIA [id number] [address] Ketones Ql (U) Negative Normal Negative, Trace [facility] Comment on above: Order Comment: Speci men Type: URINE SPECIMENOrdering Facility: [facility] Address: [address] [place] [address] Performed By: #### U A ####[facility] LABORATORYCLIA [id number] [address] Leukocyte esterase Test strip Ql (U) 75 [place]/uL Abnormal Negative, 25 [place]/uL [facility] Comment on above: Order Comment: Speci men Type: URINE SPECIMENOrdering Facility: [facility] Address: [address] [place] [address] Performed By: #### U A ####[facility] LABORATORYCLIA [id number] [address] [place] Nitrite Ql (U) Negative Normal Negative [facility] Comment on above: Order Comment: Speci men Type: URINE SPECIMENOrdering Facility: [facility] Address: [address] [place] [address] Performed By: #### U A ####[facility] LABORATORYCLIA [id number] [address] OF [place] pH (U) 6.5 [pH] Normal 5.0-8.0 [facility] Comment on above: Order Comment: Speci men Type: URINE SPECIMENOrdering Facility: [facility] Address: [address] [place] [address] Performed By: #### U A ####[facility] LABORATORYCLIA [id number] [address] Protein (U) [Mass/Vol] 1+ Abnormal Trace, Negative [facility] Comment on above: Order Comment: Speci men Type: URINE SPECIMENOrdering Facility: [facility] Address: [address] [place] [address] Performed By: #### U A ####[facility] LABORATORYCLIA [id number] [address] Specific gravity (U) [Rel density] >1.040 High 1.005-1.030 [facility] Comment on above: Order Comment: Speci men Type: URINE SPECIMENOrdering Facility: [facility] Address: [address] [place] [address] Performed By: #### U A ####[facility] LABORATORYCLIA [id number] [address] Urobilinogen Ql (U) Normal Normal Normal [facility] Comment on above: Order Comment: Speci men Type: URINE SPECIMENOrdering Facility: [facility] Address: [address] [place] [address] Performed By: #### U A ####[facility] LABORATORYCLIA [id number] [address] STATES OF [facility] XR ABDOMEN 1V SUPINEon 09-17 XR ABDOMEN 1V SUPINE Normal [facility] XR CHEST 1V FRONTALon 2023 XR CHEST 1V FRONTAL Normal [facility] aPTT PPPon 09-18-2023 aPTT Coag (PPP) [Time] 28.5 s Normal 23.0-32.4 [facility] Comment on above: Order Comment: Speci men Type: BLOOD SPECIMENOrdering Facility: [facility] Address: [address] [place] [address] [place] [address] Performed By: #### 3 4528-0, 67677-8 ####[facility] LABORATORYCLIA [id number] [address] OF [facility] Absolute lymphocyte countOrd ered By: Richmond Phoenix on 09-17-2023 Lymphocytes Auto (Unsp spec) [#/Vol] 3.98 10*3/uL 0.83-4.51 [facility] Activated partial thrombopla stin time (aPTT) in platelet poor plasma by coagulation aOrdered By: Richmond Phoenix on 09-17-2023 aPTT Coag (PPP) [Time] 26.6 s 24.1-36.2 [facility] Automated lymphocyte count a s percentage of total leukocytesOrdered By: Richmond Phoenix on 09-17-2023 Lymphocytes/100 WBC Auto (Unsp spec) 29.7 % 19-41 [facility] Base excessOrdered By: Richmond G allo on 09-17-2023 Base excess Calc (BldV) [Moles/Vol] -7 mmol/L -2-2 [facility] Basophil percentageOrdered B y: Richmond Phoenix on 09-17-2023 Basophil percentage 20 mmol/L [facility] Basophils/100 WBC (Bld) 96 % 95-99 [facility] Basophils/100 WBC (Bld) 0.4 % 0-1 [facility] Chloride [Moles/Vol] 98 mmol/L 98-107 [facility] Eosinophils/100 WBC (Bld) 1.0 % 0-5 [facility] Glucose [Mass/Vol] 352 mg/dL 74-106 [facility] Comment on above: Glucose result great er than or equal to 200 mg/dLsuggests DIABETES MELLITUS per A.D.A. criteria. Hemoglobin (Bld) [Mass/Vol] 14.1 g/dL 12.0-15.0 [facility] Monocytes/100 WBC (Bld) 2.2 % 0-10 [facility] Neutrophils (Bld) [#/Vol] 8.6 10*3/uL 2.0-7.7 [facility] Neutrophils/100 WBC (Bld) 64.2 % 47-70 [facility] Potassium [Moles/Vol] 3.6 mmol/L 3.5-5.1 [facility] Sodium [Moles/Vol] 136 mmol/L 136-145 [facility] Triglyceride [Mass/Vol] 404 mg/dL <199 [facility] Comment on above: The drugs N-Acetylcy steine and Metamizole may falsely depress this assay. TRIGLYCERIDE IS GREATER THAN 400 mg/dL. LDL RESULT IS INVALID AND WILL NOT BE REPORTED.Serum Triglycerides Reference Interval Normal <150 mg/dL Borderline high 150 - 199 mg/dL High 200 - 499 mg/dL Very High > or = 500 mg/dL WBC (Bld) [#/Vol] 13.4 10*3/uL 4.4-11.0 [facility] CNCRITCRon 09-17-2023 CNCRITCR Critical Care Transp ort (CCT) -- REJI ECHOLS ([id number]) 1960 F Date Time Provider Department 09/17/23 YUE BINGHAM CCT During your visit today, we recorded the following information about you: Yue Bingham APRN.CHEMICAL TEST ENGINEER 09/18/2023 12:35 AM Signed CRITICAL CARE TRANSPORT MEDICAL CONTROL CONSULT NOTE Patient Name: Reji Echols Service Date: September 17, 2023 Referring Facility: [facility] Accepting Facility: REASON FOR TRANSPORT: Specialty services REASON FOR CONSULT: blood pressure management and goals of care in transport CCT MEDICAL CONTROL CONSULT SUMMARY: History, physical exam findings, and available background patient information from [facility] Transport Nurse were reviewed at the time of consult. Pertinent additional information was reviewed as follows: [facility] Records In brief, Reji Echols is a 63 year old female with an unknown history at time of consult, who presented to [facility] for evaluation of headache, left facial droop and left sided hemiplegia. Also noted: facial twitching and seizures which were treated with Ativan IV and Keppra IV. The patient was intubated for airway protection. CT/CTA showed no hemorrhage and no LVO. Hypertension treated with labetalol while in the ER. CCT RN notified med control of SBP 160's and patient moving around in the bed. Given the imaging is negative for intracranial hemorrhage or obvious LVO, parameters for SBP in 160's is acceptable. Orders given for fentanyl IV to provide analgesia and comfort. PLAN: Multiple factors considered including: patient history/condition/trajecto ry/stability, referring and receiving destinations, duration of transport time, medications and therapies available during transport, patient safety, as well as crew capabilities. Orders given for: Fentanyl 50mcg IV Plan of care and orders confirmed and read back via telephone with [facility] Transport fast food team member, Sonali Dewitt RN SIGNATURE: Yue Bingham APRN.AKBAR Acute Care Nurse Practitioner Critical Care Transport Allergies As of Date: 09/17/2023 Noted Allergy Reaction FLEXERIL (CYCLOBENZAPRINE) 09/20/2021 14 - Other: See Comments Comments: Hallucinations Date Reviewed: 09/17/2023 Reviewed by: Janelle Coon APRN.CNP - Fully Assessed Reason for Visit: Critical Care Transport [1718] Order(s):[] fentaNYL 50 mcg/mL 50 mcg injection (SUBLIMAZE)Disp: Rfl: Prescriptions as of 09/18/2023 - omega-3 acid ethyl esters (LOVAZA) 1 gram capsule Take by mouth. - simvastatin (ZOCOR) 40 mg tablet Take 40 mg by mouth once daily. - Cholecalciferol, Vitamin D3, 50 mcg (2,000 unit) cap Take by mouth once daily. - LANTUS SOLOSTAR U-100 INSULIN 100 unit/mL (3 mL) daily at bedtime. 65 units daily - mometasone (ELOCON) 0.1 % cream Apply 1 application to affected area once daily. - triamcinolone acetonide (KENALOG) 0.1 % cream Apply 1 application to affected area twice daily. - metFORMIN (GLUCOPHAGE) 500 mg tablet Take 500 mg by mouth twice daily with meals. - lisinopril-hydrochlorothia zide (PRINZIDE, ZESTORETIC) 20-25 mg per tablet Take 1 tablet by mouth once daily. - metoprolol tartrate, short acting, (LOPRESSOR) 50 mg tablet Take 50 mg by mouth once daily. - Omeprazole 40 mg capsule Take 40 mg by mouth once daily. - INSULIN LISPRO (HUMALOG KWIKPEN SUBCUTANEOUS) Inject subcutaneously three times daily. 15 with every meal Facility-Administered Medications as of 09/18/2023 - insulin regular human 12 Units injection (short acting) - propofol infusion (DIPRIVAN) - senna-docusate 8.6-50 mg 1 tablet (SENNA-S) - bisacodyl 10 mg suppository (DULCOLAX) - NaCl 0.9% iv flush bag - NaCl 0.9% iv infusion - cefTRIAXone iv piggyback 2 g in dextrose (iso-osmotic) 50 mL (ROCEPHIN) - ampicillin 2 g in NaCl 0.9% 100 mL Vial-Bag - vancomycin dosing and monitoring per pharmacy - insulin lispro injection (rapid acting) (ADMElog) - dextrose 15 gram/32 mL 15 g (TRUEPLUS) - glucagon 1 mg injection - dextrose 10% iv bolus - Chlorhexidine Gluconate 0.12 % 15 mL (PERIDEX) - iv contrast (radiology procedure) - potassium chloride ER 20-40 mEq tab(s) (KLOR-CON) - potassium chloride iv piggyback 20 mEq/100 mL - magnesium sulfate iv piggyback in sterile water 2 g 50 mL - phosphorus 500 mg tab(s) (K PHOS NEUTRAL) - calcium gluconate 4 g in NaCl 0.9% 250 mL - iv contrast (radiology procedure) - vancomycin iv piggyback 1 g in D5W 200 mL (VANCOCIN) - vancomycin iv piggyback 1 g in D5W 200 mL (VANCOCIN) - acetaminophen 650 mg tab(s) (TYLENOL) - pantoprazole 40 mg injection (PROTONIX) - rosuvastatin 20 mg tab(s) (CRESTOR) Problem List As Of Date 09/17/2023 Noted Resolved Cervical prolapse [N81.2] 11/15/2015 Vulval lesion [N90.89] 11/15/2015 02/03/2016 Cystocele, midline [N81.11] 11/15/2015 Diabetes (HCC) [E11.9] 01/03/20 (more content not included)... Normal [facility] CONSULT PROGon 09-17-2023 CONSULT PROG Normal [facility] Determination of erythrocyte mean corpuscular volume (MCV)Ordered By: Richmond Phoenix on 09-17-2023 MCV (RBC) [Entitic vol] 78.9 fL 81-99 [facility] Erythrocyte distribution wid th ratioOrdered By: Richmondrich Phoenix on 09-17-2023 Erythrocyte distribution width (RBC) [Ratio] 13.2 % 11.6-14.6 [facility] Erythrocyte distribution wid th standard deviationOrdered By: Richmondrich Phoenix on 09-17-2023 Erythrocyte distribution width (RBC) [Entitic vol] 37.5 fL 35.1-43.9 [facility] Hematocrit Auto (Bld) [Volum e fraction]Ordered By: Richmondrich Phoenix on 09-17-2023 Hematocrit (Bld) [Volume fraction] 43.3 % 37-47 [facility] Immature granulocytes/100 WB C Auto (Bld)Ordered By: Richmondrich Phoenix on 09-17-2023 Immature granulocytes/100 WBC (Bld) 2.500 % 0.0-0.9 [facility] Comment on above: IG% - Immature Granu locytes (promyelocytes, myelocytes and metamyelocytes) > 1% indicates that a LEFT SHIFT is Present. Laboratory - Chemistry and C hemistry - challengeOrdered By: Richmondrich Phoenix on 09-17-2023 CK [Catalytic activity/Vol] 65 U/L 26-192 [facility] CO2 [Moles/Vol] 15.0 mmol/L 21.0-32.0 [facility] Urea nitrogen/Creatinine [Mass ratio] 8.6 mg/mg 10-20 [facility] Laboratory - CoagulationOrde red By: Richmondrich Phoenix on 09-17-2023 INR Coag (Bld) [Relative time] 1.0 {INR} [facility] PT Coag (PPP) [Time] 13.5 s 11.7-14.9 [facility] Laboratory - Hematology and Cell countsOrdered By: Richmond Phoenix on 09-17-2023 MCH (RBC) [Entitic mass] 25.7 pg 27.0-32.0 [facility] MCHC (RBC) [Mass/Vol] 32.6 g/dL 32-36 [facility] Nucleated RBC/100 WBC (Bld) [Ratio] 0 % 0-5 [facility] Platelet mean volume (Bld) [Entitic vol] 9.5 fL 6.2-12.0 [facility] Platelets (Bld) [#/Vol] 276 10*3/uL 150-450 [facility] Measurement, pHOrdered By: Enid Phoenix on 09-17-2023 pH (Unsp spec) 7.35 [pH] 7.35-7.45 [facility] No Panel InformationOrdered By: Richmond Phoenix on 09-17-2023 Arterial Blood Partial Pressure CO2 34.2 mmHg 35-45 [facility] Arterial Blood Partial Pressure O2 87 mmHG 75-100 [facility] Bedside Blood Gas PEEP 5 [facility] Blood Gas Bicarbonate Actual 18.8 mmol/L 22-26 [facility] Blood Gas Oxygen Percent 30.0 [facility] Blood Gas Respiration Rate 14 [facility] Blood Gas Sample Site R Brach [facility] Blood Gas Specimen Type ART [facility] Blood Gas Tidal Volume 450.0 mL [facility] Blood Gas Vent Mode AC [facility] Oxygen Delivery Device Adult Vent [facility] Estimated Creatinine Clearance Calc 36.25 ml/min [facility] Estimated GFR (MDRD) Amer 54 mL/min >60 [facility] Comment on above: GFR Calc Estimated GFR (MDRD) Non-Af Amer 44 mL/min >60 [facility] Comment on above: Non- GFR Calc Troponin I High Sensitivity 32 pg/mL 3.0-54.0 [facility] Comment on above: Please Note: New Clement[place] t Units and Gender Specific Reference Ranges. For more information see Policy Stat Procedure [place] High Sensitivity Troponin (TNIH) and attachments. RBC Auto (Bld) [#/Vol]Ordere d By: Richmond Phoenix on 09-17-2023 RBC (Bld) [#/Vol] 5.49 10*6/uL 4.2-5.4 [facility] Serum or plasma calcium nya urement (mass/volume)Ordered By: Richmond Phoenix on 09-17-2023 Calcium [Mass/Vol] 9.9 mg/dL 8.5-10.1 [facility] Serum or plasma creatinine m easurement (mass/volume)Ordered By: Richmond Phoenix on 09-17-2023 Creatinine [Mass/Vol] 1.28 mg/dL 0.55-1.02 [facility] Comment on above: The validity of the calculated GFR & GFRAA in patients over 70 years has not been determined. Clinical correlation is essential. Serum or plasma urea nitroge n measurement (mass/volume)Ordered By: Richmond Phoenix on 09-17-2023 Urea nitrogen [Mass/Vol] 11 mg/dL 7-18 [facility] Thin prep Papanicolaou smear with manual screeningOrdered By: Richmond Phoenix on 09-17-2023 Thin prep Papanicolaou smear with manual screening 23 5-15 [facility] ANES POSTPROC EVALon 023 ANES POSTPROC EVAL Normal [facility] ANES PRE-OPon 04-01-2023 ANES PRE-OP Normal [facility] OPERATIVE NOon 04-01-2023 OPERATIVE NO Normal [facility] SURGICAL PATHOLOGYon 023 CASE REPORT Normal [facility] Comment on above: Order Comment: Speci men Type: TISSUE SPECIMENOrdering Facility: [facility] Address: [address] [place] [address] Result Comment: Surg ica Pathology Report Case: [id number] Provider: Henri Dickinson MD Collected: 04/01/2023 01:19 PMOrdering Location: [place] [facility] Received: 04/02/2023 07:01 AMPathologist: Doug Damon, DOSpecimen: UTERUS, CERVIX, BILATERAL FALLOPIAN TUBES, UTERUS, CERVIX & BILATERAL FALLOPIAN TUBES Performed By: #### S ####[facility] LABORATORYCLIA [id number] [address] STATES [place] CLINICAL HISTORY Normal [facility] Comment on above: Order Comment: Speci men Type: TISSUE SPECIMENOrdering Facility: [facility] Address: [address] [place] [address] Result Comment: Pre- op diagnosis:Incomplete uterovaginal prolapse [N81.2]Rectocele [N81.6]Cystocele, midline [N81.11]Female stress incontinence [N39.3] Performed By: #### S ####[facility] LABORATORYCLIA [id number] [address] [place] FINAL DIAGNOSIS Normal [facility] Comment on above: Order Comment: Speci men Type: TISSUE SPECIMENOrdering Facility: [facility] Address: [address] [place] [address] Result Comment: A. 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 Performed By: #### S ####[facility] LABORATORYCLIA [id number] [address] STATES OF [facility] FINAL PERFORMING LAB Normal [facility] Comment on above: Order Comment: Speci men Type: TISSUE SPECIMENOrdering Facility: [facility] Address: [address] [place] [address] Result Comment: Diag nostic interpretation performed at [facility], [address] [place] [address] CLIA# [id number] Director: Long Rosenbaum M.D. Performed By: #### S ####[facility] LABORATORYCLIA [id number] [address] OF [place] GROSS DESCRIPTION Normal [facility] Comment on above: Order Comment: Speci men Type: TISSUE SPECIMENOrdering Facility: [facility] Address: [address] [place] [address] Result Comment: A. U TERUS, CERVIX, BILATERAL FALLOPIAN TUBESReceived in formalin labeled "uterus, cervix, bilateral fallopian tubes" is a uterus with attached cervix and bilateral detached fallopian tubes. The uterus and attached cervix weighs 62 g and measures 8.5 x 4 x 3 cm. The serosal surface is pink-martinez smooth and glistening. The ectocervix is white smooth and glistening. The cervical os is fishmouth in contour. Upon opening, the endocervical canal measures 4 cm in length. The endometrial cavity measures 3 cm in length and 3 cm in width. The endometrium is red, velvety and measures 0.2 cm in thickness. No polyps or masses are identified throughout. The myometrium is pink-martinez and slightly trabeculated measuring 1.5 cm in thickness. A 1 cm intramural nodule. Upon sectioning, the nodule is white-martinez whorled and rubbery with no areas of hemorrhage or necrosis identified. Detached fallopian tube #1 with attached fimbriated end measures 4 cm in length and 0.5 cm in diameter. The fimbriated end is normal and villous. No paratubal cysts are identified. The lumen is unremarkable. Detached fallopian tube #2 measures 5 cm in length and 0.5 cm in diameter. The fimbriated end is scant. No paratubal cysts are identified. The lumen is unremarkable. Software Development Analyst sections are submitted as follows:A1: Anterior cervix, 12:00A2: Posterior cervix, 6:00A3: Anterior uterine wall, full-thicknessA4: Posterior uterine wall, full-thicknessA5: Intramural noduleA6: Detached fallopian tube #1 fimbriated end bisected and mid cross-sectionsA7: Detached fallopian tube #2 fimbriated end bisected and mid cross-sections Gross examination performed at [facility], [address] [place] [address] CLIA#[id number] April 02, 2023 10:26 AM Performed By: #### S ####[facility] LABORATORYCLIA [id number] [place] [address] [place] Bacteria Ur Culton 3 Bacteria identified Cx Nom (U) CULTURE, URINE: <10,000 CFU/ml Normal Urogenital Maria Del Rosario Normal [facility] Comment on above: Performed By: #### 6 30-4 ####[facility] LABORATORYCLIA [id number] [address] [place] Basic metabolic 2000 panelon 03-25-2023 Anion gap [Moles/Vol] 11 mmol/L Normal 9-18 [facility] Comment on above: Order Comment: Speci men Type: BLOOD SPECIMENOrdering Facility: [facility] Address: [address] [place] [address] Performed By: #### 2 4321-2 ####[facility] LABORATORYCLIA [id number] [place] [address] [place] Calcium [Mass/Vol] 9.6 mg/dL Normal 8.5-10.2 [facility] Comment on above: Order Comment: Speci men Type: BLOOD SPECIMENOrdering Facility: [facility] Address: [address] [place] [address] Performed By: #### 2 4321-2 ####[facility] LABORATORYCLIA [id number] [address] STATES OF [facility] Chloride [Moles/Vol] 101 mmol/L Normal 97-105 [facility] Comment on above: Order Comment: Speci men Type: BLOOD SPECIMENOrdering Facility: [facility] Address: [address] [place] [address] Performed By: #### 2 4321-2 ####[facility]ORATORYCLIA [id number] [address] [place] CO2 [Moles/Vol] 28 mmol/L Normal 22-30 [facility] Comment on above: Order Comment: Speci men Type: BLOOD SPECIMENOrdering Facility: [facility] Address: [address] [place] [address] Performed By: #### 2 4321-2 ####[facility] LABORATORYCLIA [id number] [place] [address] [place] Creatinine [Mass/Vol] 0.89 mg/dL Normal 0.58-0.96 [facility] Comment on above: Order Comment: Speci men Type: BLOOD SPECIMENOrdering Facility: [facility] Address: [address] [place] [address] Performed By: #### 2 4321-2 ####[facility]ITALIA [id number] [address] Creatinine and Glomerular filtration rate.predicted panel (S/P/Bld) 72 mL/min/1.73m??? Normal >=60 [facility] Comment on above: Order Comment: Key ambrocio Type: BLOOD SPECIMENOrdering Facility: [facility] Address: [address] [place] [address] Result Comment: Swetha mated Glomerular Filtration Rate (eGFR) is calculated using the 2020 CKD-EPI creatinine equation. This equation utilizes serum creatinine, sex, and age as parameters. The creatinine assay has traceable calibration to isotope dilution-mass spectrometry. Refer to KDIGO guidelines for clinical interpretation. In patients with unstable renal function, e.g. those with acute kidney injury, the eGFR may not accurately reflect actual GFR. Performed By: #### 2 4321-2 ####[facility] LABORATORYIA [id number] [place] [address] [place] Glucose [Mass/Vol] 105 mg/dL High 74-99 [facility] Comment on above: Order Comment: Key albrecht Type: BLOOD SPECIMENOrdering Facility: [facility] Address: [address] [place] [address] Result Comment: The [place] Diabetes Association (ADA) provides guidance for cutoff values for fasting glucose and random glucose. The ADA defines fasting as no caloric intake for at least 8 hours. Fasting plasma glucose results between 100 to 125 mg/dL indicate increased risk for diabetes (prediabetes).Fasting plasma glucose results greater than or equal to 126 mg/dL meet the criteria for diagnosis of diabetes. In the absence of unequivocal hyperglycemia, results should be confirmed by repeat testing. In a patient with classic symptoms of hyperglycemia or hyperglycemic crisis, random plasma glucose results greater than or equal to 200 mg/dL meet the criteria for diagnosis of diabetes.Reference: Standards of Medical Care in Diabetes 2016, [place] Diabetes Association. Diabetes Care. 2016.39(Suppl 1). Performed By: #### 2 4321-2 ####[facility] LABORATORYCLIA [id number] [place] [address] [place] Potassium [Moles/Vol] 3.7 mmol/L Normal 3.7-5.1 [facility] Comment on above: Order Comment: Speci men Type: BLOOD SPECIMENOrdering Facility: [facility] Address: [address] [place] [address] Performed By: #### 2 4321-2 ####[facility] LABORATORYCLIA [id number] [address] [place] Sodium [Moles/Vol] 140 mmol/L Normal 136-144 [facility] Comment on above: Order Comment: Speci men Type: BLOOD SPECIMENOrdering Facility: [facility] Address: [address] [place] [address] Performed By: #### 2 4321-2 ####[facility] LABORATORYCLIA [id number] [address] [place] Urea nitrogen [Mass/Vol] 17 mg/dL Normal 7-21 [facility] Comment on above: Order Comment: Speci men Type: BLOOD SPECIMENOrdering Facility: [facility] Address: [address] [place] [address] Performed By: #### 2 4321-2 ####[facility] LABORATORYCLIA [id number] [address] [place] CBC panel Auto (Bld)on 03-25 Erythrocyte distribution width (RBC) [Ratio] 13.9 % Normal 11.5-15.0 [facility] Comment on above: Order Comment: Speci men Type: BLOOD SPECIMENOrdering Facility: [facility] Address: [address] [place] [address] Performed By: #### 5 8410-2 ####[facility] LABORATORYCLIA [id number] [address] [place] Hematocrit (Bld) [Volume fraction] 38.6 % Normal 36.0-46.0 [facility] Comment on above: Order Comment: Speci men Type: BLOOD SPECIMENOrdering Facility: [facility] Address: [address] [place] [address] Performed By: #### 5 8410-2 ####[facility] LABORATORYCLIA [id number] [address] Hemoglobin (Bld) [Mass/Vol] 12.4 g/dL Normal 11.5-15.5 [facility] Comment on above: Order Comment: Speci men Type: BLOOD SPECIMENOrdering Facility: [facility] Address: [address] [place] [address] Performed By: #### 5 8410-2 ####[facility] LABORATORYCLIA [id number] [address] MCH (RBC) [Entitic mass] 25.7 pg Low 26.0-34.0 [facility] Comment on above: Order Comment: Speci men Type: BLOOD SPECIMENOrdering Facility: [facility] Address: [address] [place] [address] Performed By: #### 5 8410-2 ####[facility] LABORATORYCLIA [id number] [address] MCHC (RBC) [Mass/Vol] 32.1 g/dL Normal 30.5-36.0 [facility] Comment on above: Order Comment: Speci men Type: BLOOD SPECIMENOrdering Facility: [facility] Address: [address] [place] [address] Performed By: #### 5 8410-2 ####[facility] LABORATORYCLIA [id number] [address] STATES [facility] MCV (RBC) [Entitic vol] 79.9 fL Low 80.0-100.0 [facility] Comment on above: Order Comment: Speci men Type: BLOOD SPECIMENOrdering Facility: [facility] Address: [address] [place] [address] Performed By: #### 5 8410-2 ####[facility] LABORATORYCLIA [id number] [place] [address] [place] Nucleated RBC (Bld) [#/Vol] 10*3/uL Normal <0.01 [facility] Comment on above: Order Comment: Speci men Type: BLOOD SPECIMENOrdering Facility: [facility] Address: [address] [place] [address] Performed By: #### 5 8410-2 ####[facility] LABORATORYCLIA [id number] [place] [address] [place] Platelet mean volume (Bld) [Entitic vol] 10.7 fL Normal 9.0-12.7 [facility] Comment on above: Order Comment: Speci men Type: BLOOD SPECIMENOrdering Facility: [facility] Address: [address] [place] [address] Performed By: #### 5 8410-2 ####[facility] LABORATORYCLIA [id number] [address] [place] Platelets (Bld) [#/Vol] 244 10*3/uL Normal 150-400 [facility] Comment on above: Order Comment: Speci men Type: BLOOD SPECIMENOrdering Facility: [facility] Address: [address] [place] [address] Performed By: #### 5 8410-2 ####[facility] LABORATORYCLIA [id number] [place] [address] [place] RBC (Bld) [#/Vol] 4.83 10*6/uL Normal 3.90-5.20 [facility] Comment on above: Order Comment: Speci men Type: BLOOD SPECIMENOrdering Facility: [facility] Address: [address] [place] [address] Performed By: #### 5 8410-2 ####[facility] LABORATORYCLIA [id number] [place] [address] [place] WBC (Bld) [#/Vol] 8.21 10*3/uL Normal 3.70-11.00 [facility] Comment on above: Order Comment: Speci men Type: BLOOD SPECIMENOrdering Facility: [facility] Address: [address] [place] [address] Performed By: #### 5 8410-2 ####[facility] LABORATORYCLIA [id number] [address] CONFIRM BLOOD TYPEon 023 ABO O Normal [facility] Comment on above: Order Comment: Speci men Type: BLOOD SPECIMENOrdering Facility: [facility] Address: [address] [place] [address] Performed By: #### C ONABO ####[facility] BLOOD BANKCLIA [id number] [address] Rh Nom (Bld) Negative Normal [facility] Comment on above: Order Comment: Speci men Type: BLOOD SPECIMENOrdering Facility: [facility] Address: [address] [place] [address] Performed By: #### C ONABO ####[facility] BLOOD BANKCLIA [id number] [address] OF [place] HISTORY PHYSICALon HISTORY PHYSICAL Normal [facility] TYPE AND SCREEN,30 DAYon ABO O Normal [facility] Comment on above: Order Comment: Speci men Type: BLOOD SPECIMENOrdering Facility: [facility] Address: [address] [place] [address] Performed By: #### T SCR30 ####[facility] BLOOD BANKCLIA [id number] [address] HISTORICAL AB SCR STATUS Negative Normal [facility] Comment on above: Order Comment: Speci men Type: BLOOD SPECIMENOrdering Facility: [facility] Address: [address] [place] [address] Performed By: #### T SCR30 ####[facility] BLOOD BANKCLIA [id number] [address] Rh Nom (Bld) Negative Normal [facility] Comment on above: Order Comment: Speci men Type: BLOOD SPECIMENOrdering Facility: [facility] Address: [address] [place] [address] Performed By: #### T SCR30 ####[facility] BLOOD BANKIA [id number] [place] [address] [place] Culture, urineOrdered By: Dr Murtaza Dickinson on 12-13-2022 Bacteria identified Cx Nom (U) Positive [facility] Basophil percentageOrdered B y: Dr. Dickinson on 12-11-2022 Basophil percentage 50-100 SEEN /hpf 0-5 [facility] Bilirubin Test strip Ql (U)O rdered By: Dr. Dickinson on 12-11-2022 Bilirubin Ql (U) Negative Negative [facility] Ketones Test strip Ql (U)Ord ered By: Dr. Dickinson on 12-11-2022 Ketones Ql (U) Negative Negative [facility] Mucus LM Ql (Urine sed)Order ed By: Dr. Dickinson on 12-11-2022 Mucus Ql (Urine sed) 1+ /hpf [facility] Nitrite Test strip Ql (U)Ord ered By: Dr. Dickinson on 12-11-2022 Nitrite Ql (U) Negative Negative [facility] Protein Test strip Ql (U)Ord ered By: Dr. Dickinson on 12-11-2022 Protein Ql (U) 100 mg/dl Negative [facility] Squamous epithelial cells de tection in urine sediment by light microscopyOrdered By: Dr. Dickinson on 12-11-2022 Epithelial cells.squamous LM Ql (Urine sed) 0-5 SEEN /hpf 5-10 [facility] Urine blood detectionOrdered By: Dr. Dickinson on 12-11-2022 RBC Ql (U) 50 /ul Negative [facility] RBC Ql (U) 0-5 SEEN /hpf 0-5 [facility] Urine clarityOrdered By: Dr. Dickinson on 12-11-2022 Clarity (U) Cloudy Clear [facility] Urine color determinationOrd ered By: Dr. Dickinson on 12-11-2022 Color (U) Yellow Yellow [facility] Urine glucose detectionOrder ed By: Dr. Dickinson on 12-11-2022 Glucose Ql (U) Normal mg/dl Normal [facility] Urine leukocyte esterase det ection by dipstickOrdered By: Dr. Dickinson on 12-11-2022 Leukocyte esterase Test strip Ql (U) 500 /ul Negative [facility] Urine pHOrdered By: Dr. Rosina rojas on 12-11-2022 pH (U) 6.0 [pH] 5.0 - 8.0 [facility] Urine sediment bacteria coun t by microscopy (number/high power field)Ordered By: Dr. Dickinson on 12-11-2022 Bacteria LM.HPF (Urine sed) [#/Area] 1 /[HPF] None Seen [facility] Urine specific gravity measu rementOrdered By: Dr. Dickinson on 12-11-2022 Specific gravity (U) [Rel density] 1.015 1.002-1.030 [facility] Urobilinogen Auto test strip Ql (U)Ordered By: Dr. Dickinson on 12-11-2022 Urobilinogen Ql (U) Normal mg/dl Normal [facility] Basophil percentageOrdered B y: Dr. Levy on 11-08-2022 Chloride [Moles/Vol] 107 mmol/L 98-107 [facility] Cholesterol [Mass/Vol] 124 mg/dL <200 [facility] Comment on above: <200 mg/dL Desirable 200-240 mg/dL Borderline >240 mg/dL High Risk Glucose [Mass/Vol] 123 mg/dL 74-106 [facility] Comment on above: Fasting Glucose resu lt from 100 to 125 mg/dL suggests IMPAIRED HOMEOSTASIS per A.D.A. criteria. Potassium [Moles/Vol] 4.0 mmol/L 3.5-5.1 [facility] Sodium [Moles/Vol] 140 mmol/L 136-145 [facility] Triglyceride [Mass/Vol] 221 mg/dL <199 [facility] Comment on above: The drugs N-Acetylcy steine and Metamizole may falsely depress this assay.Serum Triglycerides Reference Interval Normal <150 mg/dL Borderline high 150 - 199 mg/dL High 200 - 499 mg/dL Very High > or = 500 mg/dL Laboratory - Chemistry and C hemistry - challengeOrdered By: Dr. Levy on 11-08-2022 CO2 [Moles/Vol] 28.0 mmol/L 21.0-32.0 [facility] Urea nitrogen/Creatinine [Mass ratio] 25.6 mg/mg 10-20 [facility] No Panel InformationOrdered By: Dr. Levy on 11-08-2022 Estimated GFR (MDRD) Amer 77 mL/min >60 [facility] Comment on above: GFR Calc Estimated GFR (MDRD) Non-Af Amer 64 mL/min >60 [facility] Comment on above: Non- GFR Calc Serum or plasma calcium nya urement (mass/volume)Ordered By: Dr. Levy on 11-08-2022 Calcium [Mass/Vol] 9.0 mg/dL 8.5-10.1 [facility] Serum or plasma cholesterol in HDL measurement (mass/volume)Ordered By: Dr. Levy on 11-08-2022 Cholesterol in HDL [Mass/Vol] 35 mg/dL >40 [facility] Comment on above: The drugs N-Acetylcy steine and Metamizole may falsely depress this assay. Reference Range HDL <40 mg/dL Low HDL Cholesterol HDL >or= 60 mg/dL High HDL Cholesterol Serum or plasma cholesterol in VLDL measurement (mass/volume)Ordered By: Dr. Levy on 11-08-2022 Cholesterol in VLDL [Mass/Vol] 44 mg/dL 5-40 [facility] Serum or plasma creatinine m easurement (mass/volume)Ordered By: Dr. Levy on 11-08-2022 Creatinine [Mass/Vol] 0.94 mg/dL 0.55-1.02 [facility] Comment on above: The validity of the calculated GFR & GFRAA in patients over 70 years has not been determined. Clinical correlation is essential. Serum or plasma low density lipoprotein (LDL) cholesterol measurement (mass/volume)Ordered By: Dr. Levy on 11-08-2022 Cholesterol in LDL [Mass/Vol] 45 mg/dL 0-130 [facility] Serum or plasma urea nitroge n measurement (mass/volume)Ordered By: Dr. Levy on 11-08-2022 Urea nitrogen [Mass/Vol] 24 mg/dL 7-18 [facility] Thin prep Papanicolaou smear with manual screeningOrdered By: Dr. Levy on 11-08-2022 Thin prep Papanicolaou smear with manual screening 5 5-15 [facility] Whole blood hemoglobin A1c/t otal hemoglobin ratio (mass fraction)Ordered By: Dr. Levy on 11-08-2022 HbA1c (Bld) [Mass fraction] 6.7 % 3.8-5.6 [facility] Comment on above: Normal < 5.7 % Predi abetic 5.7 - 6.4 % Diabetic >or= 6.5 % Please note range changes. Culture, urineOrdered By: Dr Murtaza Levy on 11-04-2022 Bacteria identified Cx Nom (U) GNR Poss Pseudomonas sp [facility] Basophil percentageOrdered B y: Dr. Levy on 11-02-2022 Basophil percentage >100 SEEN /hpf 0-5 [facility] Bilirubin Test strip Ql (U)O rdered By: Dr. Levy on 11-02-2022 Bilirubin Ql (U) Negative Negative [facility] Ketones Test strip Ql (U)Ord ered By: Dr. Levy on 11-02-2022 Ketones Ql (U) Negative Negative [facility] Mucus LM Ql (Urine sed)Order ed By: Dr. Levy on 11-02-2022 Mucus Ql (Urine sed) 0 SEEN /hpf [facility] Nitrite Test strip Ql (U)Ord ered By: Dr. Levy on 11-02-2022 Nitrite Ql (U) Positive Negative [facility] Protein Test strip Ql (U)Ord ered By: Dr. Levy on 11-02-2022 Protein Ql (U) 500 mg/dl Negative [facility] Squamous epithelial cells de tection in urine sediment by light microscopyOrdered By: Dr. Levy on 11-02-2022 Epithelial cells.squamous LM Ql (Urine sed) 0-5 SEEN /hpf 5-10 [facility] Urine blood detectionOrdered By: Dr. Levy on 11-02-2022 RBC Ql (U) 250 /ul Negative [facility] RBC Ql (U) 50-100 SEEN /hpf 0-5 [facility] Urine clarityOrdered By: Dr. Levy on 11-02-2022 Clarity (U) Cloudy Clear [facility] Urine color determinationOrd ered By: Dr. Levy on 11-02-2022 Color (U) Yellow Yellow [facility] Urine glucose detectionOrder ed By: Dr. Levy on 11-02-2022 Glucose Ql (U) Normal mg/dl Normal [facility] Urine leukocyte esterase det ection by dipstickOrdered By: Dr. Levy on 11-02-2022 Leukocyte esterase Test strip Ql (U) 500 /ul Negative [facility] Urine pHOrdered By: Dr. Sunita angel on 11-02-2022 pH (U) 6.0 [pH] 5.0 - 8.0 [facility] Urine sediment bacteria coun t by microscopy (number/high power field)Ordered By: Dr. Levy on 11-02-2022 Bacteria LM.HPF (Urine sed) [#/Area] 0 /[HPF] None Seen [facility] Urine specific gravity measu rementOrdered By: Dr. Levy on 11-02-2022 Specific gravity (U) [Rel density] 1.015 1.002-1.030 [facility] Urobilinogen Auto test strip Ql (U)Ordered By: Dr. Levy on 11-02-2022 Urobilinogen Ql (U) Normal mg/dl Normal [facility] Culture, urineOrdered By: Dr Murtaza Levy on 09-22-2022 Bacteria identified Cx Nom (U) Klebsiella pneumoniae sp pneum [facility] Basophil percentageOrdered B y: Dr. Levy on 08-09-2022 Bilirubin [Mass/Vol] 0.50 mg/dL 0.20-1.00 [facility] Comment on above: For patients on eltr ombopag therapy, use of Dimension [place] TBIL is not recommended. Chloride [Moles/Vol] 103 mmol/L 98-107 [facility] Glucose [Mass/Vol] 145 mg/dL 74-106 [facility] Comment on above: Fasting Glucose resu lt greater than or equal to 126 mg/dL suggests DIABETES MELLITUS per A.D.A. criteria. Potassium [Moles/Vol] 4.1 mmol/L 3.5-5.1 [facility] Protein [Mass/Vol] 7.9 g/dL 6.4-8.2 [facility] Sodium [Moles/Vol] 140 mmol/L 136-145 [facility] Laboratory - Chemistry and C hemistry - challengeOrdered By: Dr. Levy on 08-09-2022 ALP [Catalytic activity/Vol] 103 U/L 45-117 [facility] ALT [Catalytic activity/Vol] 19 U/L 13-56 [facility] CO2 [Moles/Vol] 28.0 mmol/L 21.0-32.0 [facility] Free T4 [Mass/Vol] 1.01 ng/dL 0.76-1.46 [facility] Globulin (S) [Mass/Vol] 4.1 g/dL 2.2-4.2 [facility] Urea nitrogen/Creatinine [Mass ratio] 20.7 mg/mg 10-20 [facility] No Panel InformationOrdered By: Dr. Levy on 08-09-2022 Estimated GFR (MDRD) Amer 64 mL/min >60 [facility] Comment on above: GFR Calc Estimated GFR (MDRD) Non-Af Amer 53 mL/min >60 [facility] Comment on above: Non- GFR Calc Thyroid Stimulating Hormone (TSH) 1.05 uIU/mL 0.358-3.74 [facility] Vitamin D 25-Hydroxy 45.7 ng/mL [facility] Comment on above: Vitamin D 25(OH) Sta tus Range Deficiency <20 ng/mL (50nmol/L) Insufficiency 20 - 30 ng/mL (50 - 75 nmol/L) Sufficiency 30 - 100 ng/mL (75 - 250 nmol/L) Toxicity >100 ng/mL (>250 nmol/L) Serum or plasma albumin nya urement (mass/volume)Ordered By: Dr. Levy on 08-09-2022 Albumin [Mass/Vol] 3.8 g/dL 3.2-5.0 [facility] Serum or plasma albumin/glob ulin mass ratioOrdered By: Dr. Levy on 08-09-2022 Albumin/Globulin [Mass ratio] 0.9 {ratio} 0.9-2.4 [facility] Serum or plasma calcium nya urement (mass/volume)Ordered By: Dr. Levy on 08-09-2022 Calcium [Mass/Vol] 9.6 mg/dL 8.5-10.1 [facility] Serum or plasma creatinine m easurement (mass/volume)Ordered By: Dr. Levy on 08-09-2022 Creatinine [Mass/Vol] 1.11 mg/dL 0.55-1.02 [facility] Comment on above: The validity of the calculated GFR & GFRAA in patients over 70 years has not been determined. Clinical correlation is essential. Serum or plasma urea nitroge n measurement (mass/volume)Ordered By: Dr. Levy on 08-09-2022 Urea nitrogen [Mass/Vol] 23 mg/dL 7-18 [facility] Thin prep Papanicolaou smear with manual screeningOrdered By: Dr. Levy on 08-09-2022 Thin prep Papanicolaou smear with manual screening 20 U/L 15-37 [facility] Thin prep Papanicolaou smear with manual screening 9 5-15 [facility] UA DIP, URINE (POC)on 2021 BILIRUBIN UA (POCT) Negative Negative [facility] CLARITY UA (POCT) Cloudy [facility] COLOR UA (POCT) Yellow [facility] GLUCOSE UA (POCT) Negative Negative mg/dL [facility] HEMOGLOBIN/BLOOD UA (POCT) Moderate Abnormal Negative [facility] KETONE UA (POCT) Negative Negative mg/dL [facility] LEUKOCYTES UA (POCT) Moderate Abnormal Negative [facility] NITRITE UA (POCT) Positive Abnormal Negative [facility] PH UA (POCT) 5.5 4.5 - 8.0 [facility] Protein Ql (U) 100 mg/dL Abnormal Negative mg/dL [facility] SPECIFIC GRAVITY UA (POCT) 1.025 1.005 - 1.030 [facility] UROBILINOGEN UA (POCT) 0.2 E.U./dL Normal E.U./dL [facility] UA DIP, URINE (POC)on 2021 BILIRUBIN UA (POCT) Negative Negative [facility] CLARITY UA (POCT) Cloudy [facility] COLOR UA (POCT) Other [facility] GLUCOSE UA (POCT) 500 mg/dL Abnormal Negative mg/dL [facility] HEMOGLOBIN/BLOOD UA (POCT) Moderate Abnormal Negative [facility] KETONE UA (POCT) Negative Negative mg/[facility] LEUKOC[facility]TES UA (POCT) Moderate Abnormal Negative [facility] NITRITE UA (POCT) Positive Abnormal Negative [facility] PH UA (POCT) 5.5 4.5 - 8.0 [facility] Protein Ql (U) 30 mg/dL Abnormal Negative mg/dL [facility] SPECIFIC GRAVITY UA (POCT) 1.020 1.005 - 1.030 [facility] UROBILINOGEN UA (POCT) 0.2 E.U./dL Normal E.U./dL [facility] Laboratory - Chemistry and C hemistry - challengeon 01-22-2022 Bilirubin Ql (U) Negative [facility] Work Phone: Glucose Ql (U) 1000 g/dL [facility] Work Phone: Ketones Ql (U) Small (15+) [facility] Work Phone: pH (U) 6.0 [pH] [facility] Work Phone: Specific gravity (U) [Rel density] 1.025 [facility] Work Phone: Urobilinogen (U) [Mass/Vol] Negative [facility] Work Phone: Laboratory - Hematology and Cell countson 01-22-2022 Hemoglobin Ql (U) Hemolyzed [facility] Work Phone: Laboratory - Specimen inform ationon 01-22-2022 Clarity (U) Turbid [facility] Work Phone: Color (U) YELLOW [facility] Work Phone: Laboratory - Urinalysison Nitrite Ql (U) Positive [facility] Work Phone: Protein Ql (U) 1+ [facility] Work Phone: No Panel Informationon 01-22 Urine Leukocytes Positive [facility] Work Phone: Urine Non-Hemolyzed Blood Large [facility] Work Phone: UA DIP, URINE (POC)on 2021 BILIRUBIN UA (POCT) Negative Negative [facility] CLARITY UA (POCT) Cloudy [facility] COLOR UA (POCT) Yellow [facility] GLUCOSE UA (POCT) 250 mg/dL Abnormal Negative mg/dL [facility] HEMOGLOBIN/BLOOD UA (POCT) Large Abnormal Negative [facility] KETONE UA (POCT) Trace Negative mg/dL [facility] LEUKOCYTES UA (POCT) Trace Abnormal Negative [facility] NITRITE UA (POCT) Negative Negative [facility] PH UA (POCT) 5.5 4.5 - 8.0 [facility] Protein Ql (U) 100 mg/dL Abnormal Negative mg/dL [facility] SPECIFIC GRAVITY UA (POCT) 1.025 1.005 - 1.030 [facility] UROBILINOGEN UA (POCT) 0.2 E.U./dL Normal E.U./dL [facility] Absolute lymphocyte counton 10-26-2021 Lymphocytes Auto (Unsp spec) [#/Vol] 1.59 10*3/uL 0.83-4.51 [facility] Work Phone: Basophil percentageon 2021 Basophils/100 WBC (Bld) 0.2 % 0-1 [facility] Work Phone: Bilirubin [Mass/Vol] 0.60 mg/dL 0.20-1.00 [facility] Work Phone: Comment on above: For patients on eltr ombopag therapy, use of Dimension [place] TBIL is not recommended. Chloride [Moles/Vol] 100 mmol/L 98-107 [facility] Work Phone: Eosinophils/100 WBC (Bld) 0.1 % 0-5 [facility] Work Phone: Glucose [Mass/Vol] 265 mg/dL 74-106 [facility] Work Phone: Comment on above: Glucose result great er than or equal to 200 mg/dLsuggests DIABETES MELLITUS per A.D.A. criteria. Neutrophils (Bld) [#/Vol] 11.7 10*3/uL 2.0-7.7 [facility] Work Phone: Neutrophils/100 WBC (Bld) 85.1 % 47-70 [facility] Work Phone: Potassium [Moles/Vol] 3.6 mmol/L 3.5-5.1 [facility] Work Phone: Protein [Mass/Vol] 8.2 g/dL 6.4-8.2 [facility] Work Phone: Sodium [Moles/Vol] 134 mmol/L 136-145 [facility] Work Phone: [phone] WBC (Bld) [#/Vol] 13.8 10*3/uL 4.4-11.0 [facility] Work Phone: Basophil percentage 25-50 SEEN /hpf 0-5 [facility] Work Phone: Bilirubin Test strip Ql (U)o n 10-26-2021 Bilirubin Ql (U) Negative Negative [facility] Work Phone: Blood erythrocytes count (nu mber/volume)on 10-26-2021 RBC (Bld) [#/Vol] 4.98 10*6/uL 4.2-5.4 [facility] Work Phone: Blood hemoglobin measurement (mass/volume)on 10-26-2021 Hemoglobin (Bld) [Mass/Vol] 13.3 g/dL 12.0-15.0 [facility] Work Phone: Blood lymphocytes/100 leukoc yteson 10-26-2021 Lymphocytes/100 WBC (Bld) 11.5 % 19-41 [facility] Work Phone: Blood monocytes/100 leukocyt eson 10-26-2021 Monocytes/100 WBC (Bld) 2.6 % 0-10 [facility] Work Phone: Blood platelet mean volumeon 10-26-2021 Platelet mean volume (Bld) [Entitic vol] 10.3 fL 6.2-12.0 [facility] Work Phone: Culture, urineon 10-26-2021 Bacteria identified Cx Nom (U) Negative [facility] Work Phone: Determination of erythrocyte mean corpuscular volume (MCV)on 10-26-2021 MCV (RBC) [Entitic vol] 80.1 fL 81-99 [facility] Work Phone: Hematocrit Auto (Bld) [Volum e fraction]on 10-26-2021 Hematocrit (Bld) [Volume fraction] 39.9 % 37-47 [facility] Work Phone: Ketones Test strip Ql (U)on 10-26-2021 Ketones Ql (U) 5 mg/dl Negative [facility] Work Phone: Laboratory - Chemistry and C hemistry - challengeon 10-26-2021 ALP [Catalytic activity/Vol] 113 U/L 45-117 [facility] Work Phone: ALT [Catalytic activity/Vol] 19 U/L 13-56 [facility] Work Phone: CO2 [Moles/Vol] 28.0 mmol/L 21.0-32.0 [facility] Work Phone: Globulin (S) [Mass/Vol] 4.4 g/dL 2.2-4.2 [facility] Work Phone: Urea nitrogen/Creatinine [Mass ratio] 19.0 mg/mg 10-20 [facility] Work Phone: Laboratory - Hematology and Cell countson 10-26-2021 Erythrocyte distribution width (RBC) [Entitic vol] 36.2 fL 35.1-43.9 [facility] Work Phone: Erythrocyte distribution width (RBC) [Ratio] 12.8 % 11.6-14.6 [facility] Work Phone: Immature granulocytes/100 WBC (Bld) 0.500 % 0.0-0.9 [facility] Work Phone: Comment on above: IG% - Immature Granu locytes (promyelocytes, myelocytes and metamyelocytes) > 1% indicates that a LEFT SHIFT is Present. MCH (RBC) [Entitic mass] 26.7 pg 27.0-32.0 [facility] Work Phone: Nucleated RBC/100 WBC (Bld) [Ratio] 0 % 0-5 [facility] Work Phone: MCHC Auto (RBC) [Mass/Vol]on 10-26-2021 MCHC (RBC) [Mass/Vol] 33.3 g/dL 32-36 [facility] Work Phone: Mucus LM Ql (Urine sed)on Mucus Ql (Urine sed) 0 SEEN /hpf [facility] Work Phone: Nitrite Test strip Ql (U)on 10-26-2021 Nitrite Ql (U) Negative Negative [facility] Work Phone: No Panel Informationon 10-26 Estimated GFR (MDRD) Amer 58 mL/min >60 [facility] Work Phone: Comment on above: GFR Calc Estimated GFR (MDRD) Non-Af Amer 48 mL/min >60 [facility] Work Phone: Comment on above: Non- GFR Calc Platelets bldon 10-26-2021 Platelets (Bld) [#/Vol] 241 10*3/uL 150-450 [facility] Work Phone: Protein Test strip Ql (U)on 10-26-2021 Protein Ql (U) 500 mg/dl Negative [facility] Work Phone: Serum or plasma albumin nya urement (mass/volume)on 10-26-2021 Albumin [Mass/Vol] 3.8 g/dL 3.2-5.0 [facility] Work Phone: Serum or plasma albumin/glob ulin mass ratioon 10-26-2021 Albumin/Globulin [Mass ratio] 0.9 {ratio} 0.9-2.4 [facility] Work Phone: Serum or plasma calcium nya urement (mass/volume)on 10-26-2021 Calcium [Mass/Vol] 9.3 mg/dL 8.5-10.1 [facility] Work Phone: Serum or plasma creatinine m easurement (mass/volume)on 10-26-2021 Creatinine [Mass/Vol] 1.21 mg/dL 0.55-1.02 [facility] Work Phone: Comment on above: The validity of the calculated GFR & GFRAA in patients over 70 years has not been determined. Clinical correlation is essential. Serum or plasma urea nitroge n measurement (mass/volume)on 10-26-2021 Urea nitrogen [Mass/Vol] 23 mg/dL 7-18 [facility] Work Phone: Squamous epithelial cells de tection in urine sediment by light microscopyon 10-26-2021 Epithelial cells.squamous LM Ql (Urine sed) 0-5 SEEN /hpf 5-10 [facility] Work Phone: Thin prep Papanicolaou smear with manual screeningon 10-26-2021 Thin prep Papanicolaou smear with manual screening 16 U/L 15-37 [facility] Work Phone: Thin prep Papanicolaou smear with manual screening 6 5-15 [facility] Work Phone: Urine blood detectionon - RBC Ql (U) 250 /ul Negative [facility] Work Phone: RBC Ql (U) 25-50 SEEN /hpf 0-5 [facility] Work Phone: Urine clarityon 10-26-2021 Clarity (U) Cloudy Clear [facility] Work Phone: Urine color determinationon 10-26-2021 Color (U) Yellow Yellow [facility] Work Phone: Urine glucose detectionon Glucose Ql (U) 100 mg/dl Normal [facility] Work Phone: Urine leukocyte esterase det ection by dipstickon 10-26-2021 Leukocyte esterase Test strip Ql (U) 500 /ul Negative [facility] Work Phone: Urine pHon 10-26-2021 pH (U) 6.0 [pH] 5.0 - 8.0 [facility] Work Phone: Urine sediment bacteria coun t by microscopy (number/high power field)on 10-26-2021 Bacteria LM.HPF (Urine sed) [#/Area] 1 /[HPF] None Seen [facility] Work Phone: Urine specific gravity measu rementon 10-26-2021 Specific gravity (U) [Rel density] 1.020 1.002-1.030 [facility] Work Phone: Urobilinogen Auto test strip Ql (U)on 10-26-2021 Urobilinogen Ql (U) Normal mg/dl Normal [facility] Work Phone: UA DIP, URINE (POC)on 2021 BILIRUBIN UA (POCT) Negative Negative [facility] CLARITY UA (POCT) [facility] COLOR UA (POCT) Yellow [facility] GLUCOSE UA (POCT) Negative Negative mg/dL [facility] HEMOGLOBIN/BLOOD UA (POCT) Large Abnormal Negative [facility] KETONE UA (POCT) Negative Negative mg/dL [facility] LEUKOCYTES UA (POCT) Small Abnormal Negative [facility] NITRITE UA (POCT) Negative Negative [facility] PH UA (POCT) 6.0 4.5 - 8.0 [facility] Protein Ql (U) >=300 Abnormal Negative mg/dL [facility] SPECIFIC GRAVITY UA (POCT) >=1.030 1.005 - 1.030 [facility] UROBILINOGEN UA (POCT) 0.2 E.U./dL Normal E.U./dL [facility] BILIRUBIN UA (POCT) Negative Negative [facility] CLARITY UA (POCT) Cloudy [facility] COLOR UA (POCT) Yellow [facility] GLUCOSE UA (POCT) Negative Negative mg/dL [facility] HEMOGLOBIN/BLOOD UA (POCT) Large Abnormal Negative [facility] KETONE UA (POCT) Negative Negative mg/dL [facility] LEUKOCYTES UA (POCT) Moderate [facility]normal [facility] NIT[facility] (POCT) Negative Negative [facility] PH UA (POCT) 5.5 4.5 - 8.0 [facility] Protein Ql (U) >=300 Abnormal Negative mg/dL [facility] SPECIFIC GRAVITY UA (POCT) 1.025 1.005 - 1.030 [facility] UROBILINOGEN UA (POCT) 0.2 E.U./dL Normal E.U./dL [facility] Provider Letter - Ambulatory on 03-13-2018 Protein mass conc Delfin MCCOLLUMErik MA, Yogita Ace Soliz [id number] [facility] [address], [place] [id number] BONE MDI had the pleasure of meeting your patient, REJI Summersank you for allowing me to serve your patient. If you have any questions about this document, please contact this office at . Sincerely,Ace Soliz [facility] HospitalThe following document(s) were included in the letter:March 11, 2018 13:07:00 EDT - (03/11/2018) Endocrinology Normal [facility] Amb Office-Progress Notes-Pr yuliana 03-12-2018 Protein mass conc Patient: REG ECHOLS RA Age: 57 years Sex: Female : 1960 Associated Diagnoses: None Author: HEYDI ARIAS MR, ACE Chief Complaint Uncontrolled Type 2 DM Visit Information Visit type: New patient evaluation. Referral source: LIZANDRO ARIAS, NATALIE. 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 Eye: Negative except as documented in HPI. Ear: Negative except as documented in HPI. Throat: Negative except as documented in HPI. Respiratory: Denies cough, Denies shortness of breath, Denies wheezing. Cardiovascular: Denies chest pain, Denies palpitations, Denies syncope. Gastrointestinal: Denies abdominal pain, Denies vomiting, Denies nausea, Denies diarrhea. Genitourinary: Denies dysuria, Denies hematuria. Musculoskeletal: Denies muscle pain, Denies gait disturbance. Hematologic/Lymphatic: Denies bruising, Denies bleeding tendency. Endocrine: Negative except as documented in HPI. Skin: Denies jaundice, Denies rash, Denies pruritus. Neurologic: Negative except as documented in HPI. Psychiatric: Negative except as documented in HPI. Medications Include (Selected) Documented MedicationsDocumentedHumaL OG KwikPen 100 units/mL injectable solution: See Instructions, Subcutaneous 16/20/20, 0 Refill(s)Toujeo SoloStar: 80 units, Subcutaneous, DAILY, 0 Refill(s)Vitamin D2 50,000 intl units (1.25 mg) oral capsule: 50,000 intl_unit = 1 caps, ORAL, SATURDAY, 30 caps, 0 Refill(s)aspirin buffered 325 mg oral tablet: 325 mg = 1 tabs, ORAL, DAILY, 30 tabs, 0 Refill(s)hydrochlorothiazi de-lisinopril 25 mg-20 mg oral tablet: 1 tab(s), ORAL, DAILYmetFORMIN 500 mg oral tablet, extended release: 500 mg = 1 tabs, ORAL, DAILY, 90 tabs, 0 Refill(s)metoprolol: 50 mg, ORAL, DAILYomega-3 polyunsaturated fatty acids ethyl esters 1000 mg oral capsule: 2,000 mg = 2 caps, ORAL, BID, 0 Refill(s)omeprazole 40 mg oral delayed release capsule: 40 mg = 1 caps, ORAL, DAILY, 0 Refill(s)simvastatin 80 mg oral tablet: 80 mg = 1 tabs, ORAL, QHS, 90 tabs, 0 Refill(s). Allergies Include (Selected) Allergic Reactions (Selected)No Known Allergies. Histories Past medical history ResolvedDM (diabetes mellitus) (250.00): Resolved.GERD (gastroesophageal reflux disease) (530.81): Resolved.HTN (401.9): Resolved.. Procedure history delivery only; (99607).. Family history BrotherDiabetes..SisterHig h blood pressure....Diabetes..Fath erHeart attack....High blood pressure....Diabetes..Moth erBrain aneurysmHigh blood pressure....Diabetes... Social & Psychosocial MfouyiJgxyqie58/11/2018 Risk Assessment: Denies Alcohol Use03/11/2018 Use: Past Type: Liquor Frequency: 1-2 times per year *Have you ever felt you should cut down on drinking? No *Have people annoyed you by criticizing your drinking? No *Have you ever felt bad or guilty about your drinking? No *Have you ever taken an eye-shuttle fitting supervisor to get rid of a hangover? NoHome/Tndzsedxoqu49/23/20 13 *Living Situation Prior to Admission Home/Independent *Special Services and Community Resources Prior to Admission None *Mobility Assistance Prior to Admission Independent *Will patient require additional/new services upon discharge NoNutrition/Kgtbou54/23/20 13 Type of diet: RegularSubstance Abuse01/20/2013 Risk Assessment: Denies Substance SdcdrXdoielp47/23/2013 Use: Former smoker Started at age: 51 Years *Exposure to Tobacco Smoke No Exposure *Smoking Cessation Packet Declined *Pt desires smoking cessation counselor No03/11/2018 Use: Former smoker, quit more *Exposure to Tobacco Smoke No Exposure Smokeless tobacco use: Never Physical Examination Vital Signs: Vital Signs 03/11/2018 13:08 EDT Peripheral Pulse Rate 69 bpm NORMAL Systolic Blood Pressure 115 mmHg NORMAL Diastolic Blood Pressure 76 mmHg NORMAL Height/Length Measured 157 cm Weight Measured 66 kg Body Mass Index Measured 26.78 kg/m2 Weight Measured - lbs2 146 lb Height/Length Measured - in2 62 in Body Mass Index Measured English2 26.7 kg/m2 BSA 1.7 m2 Ht/Wt Measurement Refused by Patient?2 No . General: Alert, No acute distress, Cooperative. Skin: Normal hair. Eye: Extraocular movements are intact, Conjunctiva normal. Head: Normocephalic, Atraumatic. Mouth: Normal. Throat: Normal. Neck: Supple, Trachea midline, No tenderness, No lymphadenopathy. Thyroid: Normal, No dominant nodule palpable. Respiratory: Lungs are clear to auscultation, No use of accessory muscles. Cardiovascular: Regular rate and rhythm, No murmur. Gastrointestinal: Soft, Non-tender, Non-distended, No organomegaly. Musculoskeletal: Normal strength. Neurologic: Alert, No focal neurological deficit observed, Normal sensory observed, Normal speech observed. Psychiatric: Appropriate mood and affect, Cooperative. Results Review Labs from PCP reviewed 01/1595OgxU2v 11.3% TSH 0.92Vit D 18Totchol 207HDL 42Trigs 606Glu 442Creat 0.83HCO3 26CBC OK Assessment 1) Type 2 DM with hyperglycemia2) Hyperlipidemia3) Poor self care4) Poor diet5) Non-adherence Plan 1) Counselled about DM2 natural history goals diet CHO lows, need for self care and adherence2) Adv to check FSBS ACHS - script for CGM provided and counselled about use of this3) Adv to limit CHO to 45-60 gms at a meal4) Increase metformin 500mg BID5) Change Tresiba 45 qhs6) Change Humalog 15 TID with mild SSI at mealtimes and half the scale at HS7) DSME - declines - Book on CHO provided8) Continue statins and BP meds9) Recheck labs at next visit10) Eye exam11) Call if lows or highsRTC 3 weeksSpent 60 mins of which > 50% spent face to face counselling as above Normal [facility] Office Visit (Internal Medic ine)on 02-25-2018 Office Visit (Internal Medicine) Chief Complaint Visit For: Other 3 week follow up uncontrolled diabetes uncontrolled hyperlipidemia History of Present IllnessA 57-year-old patient who have uncontrolled poorly controlled diabetes and dyslipoproteinemia secondary to compliance refer patient to [employer] certified network professional dietitians for possible insulin pump placement. Review of SystemsConstitutional: feeling tired, but no fever, no chills, not feeling poorly, no recent weight gain and no recent weight loss. ENT: no earache, no hearing loss, no nosebleeds, no nasal discharge, no sore throat and no hoarseness. Cardiovascular: the heart rate was not slow, the heart rate was not fast, no chest pain, no palpitations, no intermittent leg claudication and no lower extremity edema. Respiratory: no cough, not coughing up sputum and no wheezing that is consistent with asthma. Gastrointestinal: no abdominal pain, no constipation, no melena, no nausea, no diarrhea, no vomiting and no blood in stools. Musculoskeletal: no arthralgias, no myalgias, no back pain, no joint swelling, no joint stiffness, no limb pain and no limb swelling. Integumentary: no rashes, no skin lesions, no itching, no skin wound and no dry skin. Neurological: dizziness, but no headache, no confusion, no numbness, no tingling and no fainting. Active Problems Acid reflux (530.81) (K21.9) Benign essential hypertension (401.1) (I10) Carpal tunnel syndrome (354.0) (G56.00) Chronic ear pain, bilateral (388.70,338.29) (H92.03,G89.29) Depression with anxiety (300.4) (F41.8) Diabetes mellitus (250.00) (E11.9) Fatty (change of) liver, not elsewhere classified (571.8) (K76.0) HTN (hypertension) (401.9) (I10) Hyperlipidemia (272.4) (E78.5) Hypothyroidism (244.9) (E03.9) Low blood potassium (276.8) (E87.6) Type 2 diabetes with complication (250.90) (E11.8) Uncontrolled type 2 diabetes mellitus with neurologic complication (250.62)(E11.49,E11.65) UTI (urinary tract infection) (599.0) (N39.0) Vitamin D deficiency (268.9) (E55.9) Yeast infection (112.9) (B37.9) Past Medical History History of Hematoma (924.9) (T14.8XXA) History of abdominal pain (V13.89) (Z87.898) History of chest pain (V13.89) (Z87.898) History of constipation (V12.79) (Z87.19) History of diarrhea (V12.79) (Z87.898) History of measles (V12.09) (Z86.19) History of varicella (V12.09) (Z86.19) Vaginal delivery (V13.29) (Z87.42) Family History Family history of hypertension (V17.49) (Z82.49) Family history of stroke (V17.1) (Z82.3) Family history of diabetes mellitus (V18.0) (Z83.3) Family history of hypertension (V17.49) (Z82.49) Family history of lung cancer (V16.1) (Z80.1) Social History Former smoker (V15.82) (Z87.891) No alcohol use Allergies Janumet TABS Recorded By: Zuri Wong; 05/17/2015 9:09:32 AM Current Meds Omeprazole 40 MG Oral Capsule Delayed Release; TAKE 1 CAPSULE DAILY Requested for: 48Ogm7951; Last Rx:[id number] Ordered Rx By: Natalie Bone; Dispense: 30 Days ; #:90 Capsule Delayed Release; Refill: 3;For: Acid reflux; MARY = N; Verified Transmission to [facility]; Last Updated By: Carol [employer]; 01/24/2018 12:09:57 PM BD Pen Needle Short U/F 31G X 8 MM Miscellaneous; INJECTS 5 TIMES A DAY;Therapy: 54Wwm2662 to (Last Rx:[id number]) Requested for: 39Wiz9414 Ordered Rx By: Natalie Bone; Dispense: 0 Days ; #:5 X 100 Miscellaneous Box; Refill: 3;For: Diabetes mellitus; MARY = N; Verified Transmission to [facility]; Msg to Pharmacy: Patient needs enough to cover for 90 days and uses 5 per day.; Last Updated By: Carol [employer]; 08/17/2014 9:01:08 AM HumaLOG KwikPen 100 UNIT/ML Subcutaneous Solution Pen-injector; 20 units eachmeal;Therapy: 05Oct2013 to (Evaluate:09Dec2017) Requested for: 13May2017 Recorded Rx By: Natalie Bone; Dispense: 30 Days ; #:1 X 3 ML Pen (5 Pens); Refill: 6;For: Diabetes mellitus; MARY = N; Record; Msg to Pharmacy: patient gets the pens please supply 30 days at a time per insurance Levemir FlexTouch 100 UNIT/ML Subcutaneous Solution Pen-injector; 100 UNITS ATDINNER;Therapy: 16Oer6548 to Requested for: 13May2017 Recorded Rx By: Natalie Bone; Dispense: 0 Days ; #:1 X 3 ML Pen (5 Pens); Refill: 3;For: Diabetes mellitus; MARY = N; Record; Msg to Pharmacy: patient gets the pens please give a 30 day supply Lisinopril-Hydrochlorothia zide 20-25 MG Oral Tablet; TAKE 1 TABLET ONCE DAILY Requested for: 20Mar2017; Last Rx:20Mar2017 Ordered Rx By: Natalie Bone; Dispense: 90 Days ; #:90 Tablet; Refill: 3;For: HTN (hypertension); MARY = N; Verified Transmission to [facility]; Last Updated By: [employer]; 03/20/2017 10:43:29 AM Metoprolol Succinate ER 50 MG Oral Tablet Extended Release 24 Hour; Take 1 tabletdaily;Therapy: 34Hgj5707 to (Evaluate:79Mvs5853) Requested for: 20Mar2017; LastRx:20Mar2017 Ordered Rx By: Natalie Bone; Dispense: 90 Days ; #:90 Tablet Extended Release 24 Hour; Refill: 3;For: HTN (hypertension); MARY = N; Verified Transmission to [facility]; Last Updated By: [employer]; 03/20/2017 10:43:28 AM Ifxgp-6-bfvl Ethyl Esters 1 GM Oral Capsule; 4 a day;Therapy: 13May2017 to (Last Rx:[id number]) Requested for: 12Qnd7999 Ordered Rx By: Natalie Bone; Dispense: 0 Days ; #:360 Capsule; Refill: 3;For: Hyperlipidemia; MARY = N; Verified Transmission to [facility]; Last Updated By: [employer]; 01/24/2018 12:09:57 PM Simvastatin 80 MG Oral Tablet; TAKE 1 TABLET AT BEDTIME;Therapy: 15Apr2017 to (Evaluate:10Apr2018) Requested for: 15Apr2017; LastRx:15Apr2017 Ordered Rx By: Natalie Bone; Dispense: 90 Days ; #:90 Tablet; Refill: 3;For: Hyperlipidemia; MARY = N; Verified Transmission to [facility] 181; Last Updated By: [employer]; 04/15/2017 9:29:02 AM MetFORMIN HCl ER 500 MG Oral Tablet Extended Release 24 Hour; one a day;Therapy: 06Wxk0576 to (Last Rx:[id number]) Requested for: 20Mar2017 Ordered Rx By: Natalie Bone; Dispense: 0 Days ; #:90 Tablet Extended Release 24 Hour; Refill: 3;For: Type 2 diabetes with complication; MARY = N; Verified Transmission to [facility]; Last Updated By: [employer]; 03/20/2017 10:43:30 AM Doxycycline Hyclate 50 MG Oral Tablet; one twice a day;Therapy: 90Iuw2226 to (Last Rx:[id number]) Requested for: 48Lkw9010 Ordered Rx By: Natalie Bone; Dispense: 0 Days ; #:14 Tablet; Refill: 0;For: UTI (urinary tract infection); MARY = N; Verified Transmission to [facility] 181; Last Updated By: [employer]; 02/03/2018 3:22:41 PM Vitamin D (Ergocalciferol) 94418 UNIT Oral Capsule; 1 CAPSULE EVERY WEEK;Therapy: 96Pjl0393 to (Last Rx:[id number]) Requested for: 46Yvu1331 Ordered Rx By: Natalie Bone; Dispense: 0 Days ; #:12 Capsule; Refill: 0;For: Vitamin D deficiency; MARY = N; Verified Transmission to [facility] 181; Last Updated By: [employer]; 02/03/2018 3:22:42 PM Aspirin 325 MG Oral Tablet;Therapy: 15Apr2017 to Recorded Rx By: Natalie Bone; Dispense: 0 Days ; #: Sufficient Tablet; Refill: 0; MARY = N; Record Vitals Vital Signs Recorded: 25Feb2018 04:09PMHeart Feji26Wavatirs938Zafmaoxrf 94Uhgsjs9 ft Ownaop672 lb BMI Afsmujwhpz14.51BSA Calculated1.63O2 Gyuqfpzuci65 Physical ExamConstitutional General appearance: Alert and in no acute distress. Eyes Inspection of eyes: Sclera and conjunctiva were normal. Pupil exam: Pupils were equal in size. Extraocular movements were intact. Pulmonary Respiratory assessment: No respiratory distress, normal respiratory rhythm and effort. Auscultation of Lungs: Clear bilateral breath sounds. Cardiovascular Auscultation of heart: Apical pulse normal, heart rate and rhythm normal, normal S1 and S2, no murmurs and no pericardial rub. Exam for edema: No peripheral edema. Abdomen Abdominal Exam: No bruits, normal bowel sounds, soft, non-tender, no abdominal mass palpated. Liver and Spleen exam: No hepato-splenomegaly. Musculoskeletal Examination of gait: Normal. Inspection of digits and nails: No clubbing or cyanosis of the fingernails. Inspection/palpation of joints, bones and muscles: No joint swelling. Normal movement of all extremities. Skin Skin inspection: Normal skin color and pigmentation, normal skin turgor and no visible rash. Neurologic Cranial nerves: Nerves 2-12 were intact, no focal neuro defects. Psychiatric Orientation: Oriented to person, place, and time. Mood and affect: Normal. Right Foot Findings: swelling. The toes were swollen. The sensory exam showed diminished vibratory sensation at the level of the toes. Left Foot Findings: swelling. The toes were swollen. Monofilament Testing: diminished tactile sensation with monofilament testing throughout both feet. Tactile sensation in the right foot (see image for location): number 1 was diminished, number 4 was diminished, number 5 was diminished, number 6 was diminished, number 2 was diminished, number 3 was diminished, number 7 was diminished, number 8 was diminished and number 9 was diminished. Tactile sensation in the left foot (see image for location): number 1 was diminished, number 4 was diminished, number 5 was diminished, number 6 was diminished, number 2 was diminished, number 3 was diminished, number 7 was diminished, number 8 was diminished and number 9 was diminished. Capillary refills findings on the right were delayed in the toes. Capillary refills findings on the left were delayed in the toes. Assign Risk Category: 1: No loss of protective sensation, deformity present. Impending risk. Diagnoses/Problems Uncontrolled type 2 diabetes mellitus with neurologic complication (250.62)(E11.49,E11.65) Hypothyroidism (244.9) (E03.9) Hyperlipidemia (272.4) (E78.5) Fatty (change of) liver, not elsewhere classified (571.8) (K76.0) Benign essential hypertension (401.1) (I10) OrdersBenign essential hypertension There are many exercise options for seniors.; Status:Complete; Done: 33Lub995419:22PM Ordered; For:Benign essential hypertension; Ordered By:Natalie Bone;Hyperlipidemia Avoid alcoholic beverages.; Status:Complete; Done: 67Qjp7523 04:22PM Ordered; For:Hyperlipidemia; Ordered By:Natalie Bone;Hypothyroidism You may slowly resume your normal level of activity once you feel better.;Status:Complete; Done: 79Pwk3924 04:21PM Ordered; For:Hypothyroidism; Ordered By:Natalie Bone;Uncontrolled type 2 diabetes mellitus with neurologic complication Begin or continue regular aerobic exercise. Gradually work up to at least 3 sessions of 30minutes of exercise a week. Begin or continue regular aerobic exercise. Gradually workup to at least 3 sessions of 30 minutes of exercise a week.; Status:Complete; Done: 95Dzo8897 04:21PM Ordered; For:Uncontrolled type 2 diabetes mellitus with neurologic complication; Ordered By:Natalie Bone; Provider Impressions1. A diet low in sodium and high in potassium, magnesium,and calcium can help yourblood pressure.; 2. Begin or continue regular aerobic exercise. Gradually work up to at least 3 sessions of 30minutes of exercise a week.; 3. Morgan your teeth 3 times a day and floss at least once a day.; 4. Continue with our present treatment plan.; 5. Limit your use of alcohol to 2 drinks or cans of beer a day.; 6. Take your blood pressure twice a day. Record the numbers and bring them with you toyour appointments.; 7. We recommend that you bring your body mass index down to 258. that you change your eating habits slowly.; 9. eat foods that will give you 350 mg of magnesium each day.10. the DASH diet for 2000 calories.11.We want you to follow the Therapeutic Lifestyle Changes (TLC) diet.12. You need to quit smoking. 13. Seek Immediate Medical Attention if: There are signs that the blood sugar is too high>17959. There are signs that the blood sugar is too low<7515. You have a severe headache that will not go away16. You notice that breathing is rapid, more than 4017. Your blood pressure is greater than 250/120 for 218.Your eyesight becomes blurry or you have idwcdfnceh86. ADVICE=Hemoglobin A1C, lipid profile and CMP 24-hour urinary albumin every 6 month slate mixer -1 yeardentist -1 yearpodiatric - 1 year plastic duplicator- 5 years commercial attorney - 5 years20.Vaccination= flu vaccine once a year pneumonia every 5 years tetanus every 10 years ,zostavax,prevnar-13, once in a . bring all your medication OTC plus prescription medication with each visit22.Any medical problem or emergency contact our office at [phone] Follow-up visit in 3-4 months Begin a exercise program.35 min 3 times per week Check your pulse 1 times a day Start eating more fiber Your ideal BMI 19-25 Call if: You begin to have tremors or your hands become shaky. gain or lose over 10 pounds without a change in your diet have symptoms of anxiety lose weight without trying to loss of memory seems to be worse Call [phone] if:You are having trouble staying awakeexperience a new kind of chest pain (angina) or pressureexperience a seizure.; have fainted or passed out Seek Immediate Medical Attention if: you are feeling short of breathfeel your heart is beating very fast or skipping beats Advised. TSH, lipid profile, fasting blood sugar every 6 months and EKG once a year Hyperlipidemia, mixed Start: Aspirin 81 MG Oral Tablet Delayed Release; Take 1 daily Dietary Consult Referral Evaluation and Treatment Evaluate AND Treat diet that is low in fat, cholesterol and sodium is considered a cardiac diet. Avoid alcoholic beverages., Begin or continue regular aerobic Gradually work up to at least 3 sessions of 30 minutes of exercise a week. , Continue with our present treatment plan.; We want you to follow the Therapeutic Lifestyle Changes (TLC) diet.; You need to quit smoking And alcohol Call You have muscle crampspain in the stomach area start vomiting experience a new kind of chest pain (angina) or pressure any symptoms of a strokeAdvice- follow-up every 3-4 months in office, lipid profile and CPK CMP every 6 month EKG once a yearRefer patient to dietitian and [employer] certified network professional for insulin pump End of Encounter MedsAspirin 325 MG Oral Tablet;Therapy: 15Apr2017 to RecordedBD Pen Needle Short U/F 31G X 8 MM Miscellaneous; INJECTS 5 TIMES A DAY;Therapy: 81Qdf9235 to (Last Rx:[id number]) Requested for: 60Yht8286 OrderedDoxycycline Hyclate 50 MG Oral Tablet; one twice a day;Therapy: 79Ygz8164 to (Last Rx:11Vaf0749) Requested for: 44Rku5389 OrderedHumaLOG KwikPen 100 UNIT/ML Subcutaneous Solution Pen-injector; 20 units eachmeal;Therapy: 70Vfm6653 to (Evaluate:09Dec2017) Requested for: 13May2017 RecordedLevemir FlexTouch 100 UNIT/ML Subcutaneous Solution Pen-injector; 100 UNITS ATDINNER;Therapy: 34Itt2316 to Requested for: 13May2017 RecordedLisinopril-Hydroch lorothiazide 20-25 MG Oral Tablet; TAKE 1 TABLET ONCE DAILY Requested for: 07Vbm0927; Last Rx:[id number] OrderedMetFORMIN HCl ER 500 MG Oral Tablet Extended Release 24 Hour; one a day;Therapy: 42Wpl3639 to (Last Rx:76Buu0959) Requested for: 37Mul0046 OrderedMetoprolol Succinate ER 50 MG Oral Tablet Extended Release 24 Hour; Take 1 tabletdaily;Therapy: 06Psx4995 to (Evaluate:70Wde2472) Requested for: 70Cds8584; LastRx:[id number] HyuhaejAovzq-5-goxn Ethyl Esters 1 GM Oral Capsule; 4 a day;Therapy: 13May2017 to (Last Rx:[id number]) Requested for: 44Zmk9461 OrderedOmeprazole 40 MG Oral Capsule Delayed Release; TAKE 1 CAPSULE DAILY Requested for: 96Cpa3918; Last Rx:72Lwp7165 OrderedSimvastatin 80 MG Oral Tablet (Zocor); TAKE 1 TABLET AT BEDTIME;Therapy: 15Apr2017 to (Evaluate:10Apr2018) Requested for: 18Sxb7726; LastRx:15Apr2017 OrderedVitamin D (Ergocalciferol) 90097 UNIT Oral Capsule; 1 CAPSULE EVERY WEEK;Therapy: 97Xsz9484 to (Last Rx:99Pke0952) Requested for: 26Mnz9049 Ordered Normal Touchworks CBC AND DIFFERENTIALon 07-27 -2018 % AUTOMATED IMMATURE GRAN 0.4 % Normal 0.0 - 0.9 [facility] Comment on above: Result Comment: Perc ent differential counts (%) should be interpreted in the context of the absolute cell counts (cells/L). Performed By: #### C BCDF ####[id number] [place] [address] % NEUTROPHIL 59.8 % Normal 40.0 - 80.0 [facility] Comment on above: Performed By: #### C BCDF ####[id number] [place] [address] Basophils/100 WBC Auto (Bld) 0.7 % Normal 0.0 - 2.0 [facility] Comment on above: Performed By: #### C BCDF ####[id number] [place] [address] Basophils/100 WBC Auto (Bld) 0.05 x10E9/L Normal 0.00 - 0.10 [facility] Comment on above: Performed By: #### C BCDF ####[id number] [place] [address] Eosinophils 0.14 10*3/uL Normal 0.00 - 0.70 [facility] Comment on above: Performed By: #### C BCDF ####[id number] [place] [address] Eosinophils/100 leukocytes 1.8 % Normal 0.0 - 6.0 [facility] Comment on above: Performed By: #### C BCDF ####[id number] [place] [address] Erythrocyte distribution width Auto Ratio (RBC) 13.2 % Normal 11.5 - 14.5 [facility] Comment on above: Performed By: #### C BCDF ####[id number] [place] [address] Erythrocytes (RBC) 5.13 x10E12/L Normal 4.00 - 5.20 [facility] Comment on above: Performed By: #### C BCDF ####[id number] [place] [address] Hematocrit (HCT) 43.9 % Normal 36.0 - 46.0 [facility] Comment on above: Performed By: #### C BCDF ####[id number] [place] [address] Hemoglobin mass conc (Bld) 15.3 g/dL Normal 12.0 - 16.0 [facility] Comment on above: Performed By: #### C BCDF ####[id number] [place] [address] Lymphocytes 2.50 10*3/uL Normal 1.20 - 4.80 [facility] Comment on above: Performed By: #### C BCDF ####[id number] [place] [address] Lymphocytes/100 leukocytes 32.7 % Normal 13.0 - 44.0 [facility] Comment on above: Performed By: #### C BCDF ####[id number] [place] [address] MCHC mass conc (RBC) 34.9 g/dL Normal 32.0 - 36.0 [facility] Comment on above: Performed By: #### C BCDF ####[id number] [place] [address] MCV 86 fL Normal 80 - 100 [facility] Comment on above: Performed By: #### C BCDF ####[id number] [place] [address] Monocytes 0.35 10*3/uL Normal 0.10 - 1.00 [facility] Comment on above: Performed By: #### C BCDF ####[id number] [place] [address] Monocytes/100 leukocytes 4.6 % Normal 2.0 - 10.0 [facility] Comment on above: Performed By: #### C BCDF ####[id number] [place] [address] Neutrophils 4.57 10*3/uL Normal 1.20 - 7.70 [facility] Comment on above: Performed By: #### C BCDF ####[id number] [place] [address] Nucleated erythrocytes 0.0 /100 WBC Normal 0.0-0.0 [facility] Comment on above: Performed By: #### C BCDF ####[id number] [place] [address] Platelets 231 10*3/uL Normal 150 - 450 [facility] Comment on above: Performed By: #### C BCDF ####[id number] [place] [address] WBC (Leukocytes) 7.6 10*3/uL Normal 4.4 - 11.3 [facility] Comment on above: Performed By: #### C BCDF ####[id number] [place] [address] COMPREHENSIVE PANELon 2017 Alanine aminotransferase (ALT) 20 U/L Normal 7 - 45 [facility] Comment on above: Result Comment: Asuncion ents treated with Sulfasalazine may generate falsely decreased results for ALT. Performed By: #### C MP ####[id number] [place] [address] Albumin 4.2 g/dL Normal 3.4 - 5.0 [facility] Comment on above: Performed By: #### C MP ####[id number] [place] [address] Alkaline phosphatase (ALP) 107 U/L Normal 33 - 110 [facility] Comment on above: Performed By: #### C MP ####[id number] [place] [address] Anion gap 17 mmol/L Normal 10 - 20 [facility] Comment on above: Performed By: #### C MP ####[id number] [place] [address] Aspartate aminotransferase (AST) 18 U/L Normal 9 - 39 [facility] Comment on above: Performed By: #### C MP ####[id number] [place] [address] Bicarbonate (HCO3) 26 mmol/L Normal 21 - 32 [facility] Comment on above: Performed By: #### C MP ####[id number] [place] [address] Bilirubin (total) 0.5 mg/dL Normal 0.0 - 1.2 [facility] Comment on above: Performed By: #### C MP ####[id number] [place] [address] Calcium 9.7 mg/dL Normal 8.6 - 10.6 [facility] Comment on above: Performed By: #### C MP ####[id number] [place] [address] Chloride 94 mmol/L Low 98 - 107 [facility] Comment on above: Performed By: #### C MP ####[id number] [place] [address] Creatinine 0.83 mg/dL Normal 0.50 - 1.05 [facility] Comment on above: Performed By: #### C MP ####[id number] [place] [address] GFR- AM. >60 Normal >60 [facility] Comment on above: Result Comment: CALC ULATIONS OF ESTIMATED GFR ARE PERFORMED USING THE MDRD STUDY EQUATION FOR THE IDMS-TRACEABLE CREATININE METHODS. CLIN CHEM 2007;53:766-72 Performed By: #### C MP ####[id number] [place] [address] GFR-NON AM. >60 Normal >60 [facility] Comment on above: Performed By: #### C MP ####[id number] [place] [address] Glucose mass conc 442 mg/dL High 74 - 99 [facility] Comment on above: Performed By: #### C MP ####[id number] [place] [address] Potassium molar conc 4.1 mmol/L Normal 3.5 - 5.3 [facility] Comment on above: Performed By: #### C MP ####[id number] [place] [address] Protein 7.4 g/dL Normal 6.4 - 8.2 [facility] Comment on above: Performed By: #### C MP ####[id number] [place] [address] Sodium 133 mmol/L Low 136 - 145 [facility] Comment on above: Performed By: #### C MP ####[id number] [place] [address] Urea nitrogen 13 mg/dL Normal 6 - 23 [facility] Comment on above: Performed By: #### C MP ####[id number] [place] [address] HEMOGLOBIN A1Con 01-24-2018 Glucose mass conc 278 mg/dL Normal [facility] Comment on above: Performed By: #### H BA1E ####[id number] [place] [address] Hemoglobin A1c/Hemoglobin.total mass fraction (Bld) 11.3 % Normal [facility] Comment on above: Result Comment: Diag nosis of Diabetes-Adults Non-Diabetic: < or = 5.6% Increased risk for developing diabetes: 5.7-6.4% Diagnostic of diabetes: > or = 6.5%. Monitoring of Diabetes Age (y) Therapeutic Goal (%) Adults: >18 <7.0 Pediatrics: 13-18 <7.5 7-12 <8.0 0- 6 7.5-8.5 [place] [employer]. Diabetes Care 33(S1), Jul 2009. Performed By: #### H BA1E ####[id number] [place] [address] LIPID PANEL (CORONARY RISK 2 )on 01-24-2018 Cholesterol 207 mg/dL High 0 - 199 [facility] Comment on above: Result Comment: . AG E DESIRABLE BORDERLINE HIGH HIGH 0-19 Y 0 - 169 170 - 199 >/= 200 20-24 Y 0 - 189 190 - 224 >/= 225 >24 Y 0 - 199 200 - 239 >/= 240 All ranges are based on fasting samples. Specific therapeutic targets will vary based on patient-specific cardiac risk.. Pediatric guidelines reference:Pediatrics 2011, 128(S5). Adult guidelines reference: NCEP ATPIII Guidelines, SANDY 2001, 258:2486-97. Venipuncture immediately after or during the administration of Metamizole may lead to falsely low results. Testing should be performed immediately prior to Metamizole dosing. Performed By: #### L IPID ####[id number] [place] [address] Cholesterol in VLDL mass conc SEE COMMENT Normal 0 - 40 [facility] Comment on above: Result Comment: Unab le to calculate VLDL. Performed By: #### L IPID ####[id number] [place] [address] Cholesterol to HDL Ratio 4.9 {ratio} Normal [facility] Comment on above: Result Comment: REF VALUESDESIRABLE < 3.4HIGH RISK > 5.0 Performed By: #### L IPID ####[id number] [place] [address] HDL Cholesterol 42.2 mg/dL Normal [facility] Comment on above: Result Comment: . AG E VERY LOW LOW NORMAL HIGH 0-19 Y < 35 < 40 40-45 ---- 20-24 Y ---- < 40 >45 ---- >24 Y ---- < 40 40-60 >60. Performed By: #### L IPID ####[id number] [place] [address] LDL Cholesterol - Normal 0 - 99 [facility] Comment on above: Result Comment: . NE MICHA BORD AGE DESIRABLE OPTIMAL HIGH HIGH VERY HIGH 0-19 Y 0 - 109 --- 110-129 >/= 130 ---- 20-24 Y 0 - 119 --- 120-159 >/= 160 ---- >24 Y 0 - 99 100-129 130-159 160-189 >/=190.THE CALCULATION OF LDL AND VLDL ARE INACCURATEWHEN TRIGLYCERIDES ARE GREATER THAN 400 MG/DLOR WHEN THE PATIENT IS NON-FASTING. IF LDLMEASUREMENT IS NECESSARY CONTACT [facility] AT [phone] FOR ALTERNATIVE LDLASSAY. Performed By: #### L IPID ####[id number] [place] [address] Triglyceride 606 mg/dL High 0 - 149 [facility] Comment on above: Result Comment: . AG E DESIRABLE BORDERLINE HIGH HIGH VERY HIGH 0 D-90 D 19 - 174 ---- ---- ----91 D- 9 Y 0 - 74 75 - 99 >/= 100 ---- 10-19 Y 0 - 89 90 - 129 >/= 130 ---- 20-24 Y 0 - 114 115 - 149 >/= 150 ---- >24 Y 0 - 149 150 - 199 200- 499 >/= 500. Venipuncture immediately after or during the administration of Metamizole may lead to falsely low results. Testing should be performed immediately prior to Metamizole dosing. 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 Eyes: no blurred vision and no diplopia. ENT: no hearing loss, no tinnitus, no earache, no sore throat, no hoarseness and no swollen glands in the neck. Cardiovascular: no chest pain, no tightness or heavy pressure, no shortness of breath, no palpitations and no lower extremity edema. Respiratory: no cough, not coughing up sputum and no wheezing that is consistent with asthma. Gastrointestinal: no change in bowel habits, no diarrhea, no constipation, no bloody stools, no nausea, no vomiting, no abdominal pain, no signs and symptoms of ulcer disease, no jannet colored stools and no intolerance to fatty foods. Genitourinary: no urinary frequency, no dysuria, no burning sensation during urination and no hematuria. Musculoskeletal: no arthralgias, no joint stiffness, no muscle weakness, no back pain and no difficulty walking. Skin: no rashes, no change in skin color and pigmentation, no skin lesions and no skin lumps. Neurological: no headaches, no dizziness, no seizures, no tingling, no numbness, no signs and symptoms of stroke and no limb weakness. Psychiatric: no confusion, no memory lapses or loss, no depression and no sleep disturbances. Endocrine: no goiter, no thyroid disorder, no diabetes mellitus, no excessive thirst, no dry skin, no cold intolerance, no heat intolerance and no increased urinary frequency. Hematologic/Lymphatic: is not slow to heal, does not bleed easily, does not bruise easily, no thrombophlebitis, no anemia and no history of blood transfusion. Active Problems Acid reflux (530.81) (K21.9) Carpal tunnel syndrome (354.0) (G56.00) Chronic ear pain, bilateral (388.70,338.29) (H92.03,G89.29) Depression with anxiety (300.4) (F41.8) Diabetes mellitus (250.00) (E11.9) Fatty (change of) liver, not elsewhere classified (571.8) (K76.0) HTN (hypertension) (401.9) (I10) Hyperlipidemia (272.4) (E78.5) Hypothyroidism (244.9) (E03.9) Low blood potassium (276.8) (E87.6) Type 2 diabetes with complication (250.90) (E11.8) Uncontrolled type 2 diabetes mellitus with neurologic complication (250.62)(E11.49,E11.65) UTI (urinary tract infection) (599.0) (N39.0) Vitamin D deficiency (268.9) (E55.9) Yeast infection (112.9) (B37.9) Past Medical History History of Hematoma (924.9) (T14.8XXA) History of abdominal pain (V13.89) (Z87.898) History of chest pain (V13.89) (Z87.898) History of constipation (V12.79) (Z87.19) History of diarrhea (V12.79) (Z87.898) History of measles (V12.09) (Z86.19) History of varicella (V12.09) (Z86.19) Vaginal delivery (V13.29) (Z87.42) Family History Family history of hypertension (V17.49) (Z82.49) Family history of stroke (V17.1) (Z82.3) Family history of diabetes mellitus (V18.0) (Z83.3) Family history of hypertension (V17.49) (Z82.49) Family history of lung cancer (V16.1) (Z80.1) Social History Former smoker (V15.82) (Z87.891) No alcohol use Allergies Janumet TABS Recorded By: Zuri Wong; 05/17/2015 9:09:32 AM Current Meds Omeprazole 40 MG Oral Capsule Delayed Release; TAKE 1 CAPSULE DAILY Requested for: 09Dec2017; Last Rx:09Dec2017 Ordered Rx By: Natalie Bone; Dispense: 30 Days ; #:30 Capsule Delayed Release; Refill: 0;For: Acid reflux; MARY = N; Verified Transmission to [facility]; Msg to Pharmacy: please make an appointment for refills BD Pen Needle Short U/F 31G X 8 MM Miscellaneous; INJECTS 5 TIMES A DAY;Therapy: 96Sxo5205 to (Last Rx:[id number]) Requested for: 53Mnr2680 Ordered Rx By: Natalie Bone; Dispense: 0 Days ; #:5 X 100 Miscellaneous Box; Refill: 3;For: Diabetes mellitus; MARY = N; Verified Transmission to [facility]; Msg to Pharmacy: Patient needs enough to cover for 90 days and uses 5 per day.; Last Updated By: Eliecer Medina; 08/17/2014 9:01:08 AM HumaLOG KwikPen 100 UNIT/ML Subcutaneous Solution Pen-injector; 20 units eachmeal;Therapy: 05Oct2013 to (Evaluate:09Dec2017) Requested for: 13May2017 Recorded Rx By: Natalie Bone; Dispense: 30 Days ; #:1 X 3 ML Pen (5 Pens); Refill: 6;For: Diabetes mellitus; MARY = N; Record; Msg to Pharmacy: patient gets the pens please supply 30 days at a time per insurance Levemir FlexTouch 100 UNIT/ML Subcutaneous Solution Pen-injector; 100 UNITS ATDINNER;Therapy: 41Ltr0533 to Requested for: 13May2017 Recorded Rx By: Natalie Bone; Dispense: 0 Days ; #:1 X 3 ML Pen (5 Pens); Refill: 3;For: Diabetes mellitus; MARY = N; Record; Msg to Pharmacy: patient gets the pens please give a 30 day supply Lisinopril-Hydrochlorothia zide 20-25 MG Oral Tablet; TAKE 1 TABLET ONCE DAILY Requested for: 20Mar2017; Last Rx:20Mar2017 Ordered Rx By: Natalie Bone; Dispense: 90 Days ; #:90 Tablet; Refill: 3;For: HTN (hypertension); MARY = N; Verified Transmission to [facility]; Last Updated By: [employer]; 03/20/2017 10:43:29 AM Metoprolol Succinate ER 50 MG Oral Tablet Extended Release 24 Hour; Take 1 tabletdaily;Therapy: 15Jun2013 to (Evaluate:[id number]) Requested for: 20Mar2017; LastRx:20Mar2017 Ordered Rx By: Natalie Bone; Dispense: 90 Days ; #:90 Tablet Extended Release 24 Hour; Refill: 3;For: HTN (hypertension); MARY = N; Verified Transmission to [facility]; Last Updated By: [employer]; 03/20/2017 10:43:28 AM Jxksf-1-qeen Ethyl Esters 1 GM Oral Capsule; 4 a day;Therapy: 13May2017 to (Last Rx:13May2017) Requested for: 13May2017 Ordered Rx By: Natalie Bone; Dispense: 0 Days ; #:360 Capsule; Refill: 0;For: Hyperlipidemia; MARY = N; Verified Transmission to [facility]; Last Updated By: [employer]; 05/13/2017 11:25:32 AM Simvastatin 80 MG Oral Tablet; TAKE 1 TABLET AT BEDTIME;Therapy: 15Apr2017 to (Evaluate:10Apr2018) Requested for: 15Apr2017; LastRx:15Apr2017 Ordered Rx By: Natalie Bone; Dispense: 90 Days ; #:90 Tablet; Refill: 3;For: Hyperlipidemia; MARY = N; Verified Transmission to [facility]; Last Updated By: [employer]; 04/15/2017 9:29:02 AM MetFORMIN HCl ER 500 MG Oral Tablet Extended Release 24 Hour; one a day;Therapy: 20Mar2017 to (Last Rx:20Mar2017) Requested for: 20Mar2017 Ordered Rx By: Natalie Bone; Dispense: 0 Days ; #:90 Tablet Extended Release 24 Hour; Refill: 3;For: Type 2 diabetes with complication; MARY = N; Verified Transmission to [facility]; Last Updated By: [employer]; 03/20/2017 10:43:30 AM Aspirin 325 MG Oral Tablet;Therapy: 15Apr2017 to Recorded Rx By: Natalie Bone; Dispense: 0 Days ; #: Sufficient Tablet; Refill: 0; MARY = N; Record Vitals Vital Signs Recorded: 46Jua8202 11:41AMHeart Pehf96Iufjhgrh576Mxwnwimdp 65Nwccwk3 ft Gmskfd410 lb 12.8 ozBMI Wfdbvtekvp78.47BSA Calculated1.63O2 Tcywckszdq11 Physical ExamConstitutional General appearance: Alert and in no acute distress. Dehydration. Eyes Inspection of eyes: Sclera and conjunctiva were normal. Pupil exam: Pupils were equal in size. Extraocular movements were intact. Ears, Nose, Mouth, and Throat Ears: Auricles: Normal. Otoscopic examination: Tympanic membranes: Normal with no congestion and no discharge. Otic Canals: Normal without tenderness, congestion or discharge. Oropharynx: Normal with moist mucus membranes, no congestion. Tonsils: Normal no follicles. Neck Neck Exam: Appearance of the neck was normal. No neck masses observed. Thyroid exam: Not enlarged and no palpable thyroid nodules. Pulmonary Respiratory assessment: No respiratory distress, normal respiratory rhythm and effort. Crackles. Auscultation of Lungs: Clear bilateral breath sounds. Cardiovascular Auscultation of heart: Apical pulse normal, heart rate and rhythm normal, normal S1 and S2, no murmurs and no pericardial rub. Heart murmur. Carotid arteries: Pulses normal with no bruits. Femoral pulses: Normal without bruits. Exam for edema: No peripheral edema. Chest Breast inspection: Normal appearance. Breast palpation: No palpable masses. Chest: Normal A_P diameter, no pulsation, no intercostal withdrawing. Trachea central. Abdomen Abdominal Exam: No bruits, normal bowel sounds, soft, non-tender, no abdominal mass palpated. Epigastric tenderness. Liver and Spleen exam: No hepato-splenomegaly. Rectal exam: Digital rectal exam demonstrated normal sphincter tone, no rectal mass. Genitourinary External genitalia and vagina: Normal. Urethra: Normal. Cervix: Normal. Adnexa: Normal. Lymphatic Negative. Musculoskeletal Examination of gait: Normal. Inspection of digits and nails: No clubbing or cyanosis of the fingernails. Inspection/palpation of joints, bones and muscles: No joint swelling. Normal movement of all extremities. Arthralgia myalgia. Range of Motion: Normal movement of all extremities. Assessment of Stability: Normal. Skin Skin inspection: Normal skin color and pigmentation, normal skin turgor and no visible rash. Neurologic Cranial nerves: Nerves 2-12 were intact, no focal neuro defects. Tingling and numbness. Psychiatric Judgment and insight: Intact. Anxiety depression. Orientation: Oriented to person, place, and time. Mood and affect: Normal. Right Foot Findings: swelling. The toes were swollen. The sensory exam showed diminished vibratory sensation at the level of the toes. Left Foot Findings: swelling. The toes were swollen. Monofilament Testing: diminished tactile sensation with monofilament testing throughout both feet. Tactile sensation in the right foot (see image for location): number 1 was diminished, number 4 was diminished, number 5 was diminished, number 6 was diminished, number 2 was diminished, number 3 was diminished, number 7 was diminished, number 8 was diminished and number 9 was diminished. Tactile sensation in the left foot (see image for location): number 1 was diminished, number 4 was diminished, number 5 was diminished, number 6 was diminished, number 2 was diminished, number 3 was diminished, number 7 was diminished, number 8 was diminished and number 9 was diminished. Capillary refills findings on the right were delayed in the toes. Capillary refills findings on the left were delayed in the toes. Assign Risk Category: 1: No loss of protective sensation, deformity present. Impending risk. Diagnoses/Problems Uncontrolled type 2 diabetes mellitus with neurologic complication (250.62)(E11.49,E11.65) Vitamin D deficiency (268.9) (E55.9) Hyperlipidemia (272.4) (E78.5) Fatty (change of) liver, not elsewhere classified (571.8) (K76.0) Benign essential hypertension (401.1) (I10) OrdersBenign essential hypertension Dairy foods are not the only way to get calcium in your diet.; Status:Complete; Done:39Nyl8991 12:03PM Ordered; For:Benign essential hypertension; Ordered By:Natalie Bone;Hyperlipidemia Avoid alcoholic beverages.; Status:Complete; Done: 77Smz7529 12:02PM Ordered; For:Hyperlipidemia; Ordered By:Natalie Bone;Uncontrolled type 2 diabetes mellitus with neurologic complication Begin or continue regular aerobic exercise. Gradually work up to at least 3 sessions of 30minutes of exercise a week. Begin or continue regular aerobic exercise. Gradually workup to at least 3 sessions of 30 minutes of exercise a week.; Status:Complete; Done: 69Hqj8953 12:02PM Ordered; For:Uncontrolled type 2 diabetes mellitus with neurologic complication; Ordered By:Natalie Bone; Provider Impressions1. A diet low in sodium and high in potassium, magnesium,and calcium can help yourblood pressure.; 2. Begin or continue regular aerobic exercise. Gradually work up to at least 3 sessions of 30minutes of exercise a week.; 3. Morgan your teeth 3 times a day and floss at least once a day.; 4. Continue with our present treatment plan.; 5. Limit your use of alcohol to 2 drinks or cans of beer a day.; 6. Take your blood pressure twice a day. Record the numbers and bring them with you toyour appointments.; 7. We recommend that you bring your body mass index down to 258. that you change your eating habits slowly.; 9. eat foods that will give you 350 mg of magnesium each day.10. the DASH diet for 2000 calories.11.We want you to follow the Therapeutic Lifestyle Changes (TLC) diet.12. You need to quit smoking. 13. Seek Immediate Medical Attention if: There are signs that the blood sugar is too high>75890. There are signs that the blood sugar is too low<7515. You have a severe headache that will not go away16. You notice that breathing is rapid, more than 4017. Your blood pressure is greater than 250/120 for 218.Your eyesight becomes blurry or you have afemmxbnjt55. 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 bring all your medication OTC plus prescription medication with each visit22.Any medical problem or emergency contact our office at [phone] lipidemia, mixed Start: Aspirin 81 MG Oral Tablet Delayed Release; Take 1 daily Dietary Consult Referral Evaluation and Treatment Evaluate AND Treat diet that is low in fat, cholesterol and sodium is considered a cardiac diet. Avoid alcoholic beverages., Begin or continue regular aerobic Gradually work up to at least 3 sessions of 30 minutes of exercise a week. , Continue with our present treatment plan.; We want you to follow the Therapeutic Lifestyle Changes (TLC) diet.; You need to quit smoking And alcohol Call You have muscle crampspain in the stomach area start vomiting experience a new kind of chest pain (angina) or pressure any symptoms of a strokeAdvice- follow-up every 3-4 months in office, lipid profile and CPK CMP every 6 month EKG once a year A diet low in sodium and high in , magnesium, and can help your blood pressure. Begin or continue regular aerobic exercise. Gradually work up to at least 3 sessions of 30 minutes of exercise a week.; Limit your use of alcohol to 1 drinks or cans of beer a day. Take your blood pressure once a day. Record the numbers and bring them with you to your appointments. We recommend that you bring your body mass index down to 25. We recommend that you change your eating habits slowly. We want to put you on the DASHlow-salt diet fruits plus vegetable diet for 2000 calories.; You need to quit smoking.; Call if: *You become dizzy or lightheaded, especially when you stand up after sitting for awhile.; *Your blood pressure is frequently higher than 140/90. Call [phone] if * You experience a new kind of chest pain (angina) or pressure.; *You have any symptoms of a stroke. Seek Immediate Medical Attention if * You have a severe headache that will not go away * Your blood pressure is greater than 180 /110 for 2 consecutive readings* Advice 24-hour urine protein, lipid profile and CMP CBC EKG eye checkup once a year2D echo every 5 yearsFollow-up every 3-4 months refer patient to dietitian [facility] certified [facility] professional gastroenterologists sent for CBC CMP TSH hemoglobin A1c under data follow-up in 3 weeks End of Encounter MedsAspirin 325 MG Oral Tablet;Therapy: 15Apr2017 to RecordedBD Pen Needle Short U/F 31G X 8 MM Miscellaneous; INJECTS 5 TIMES A DAY;Therapy: 60Lfc6599 to (Last Rx:[id number]) Requested for: 81Ols7545 OrderedHumaLOG KwikPen 100 UNIT/ML Subcutaneous Solution Pen-injector; 20 units eachmeal;Therapy: 05Oct2013 to (Evaluate:09Dec2017) Requested for: 13May2017 RecordedLevemir FlexTouch 100 UNIT/ML Subcutaneous Solution Pen-injector; 100 UNITS ATDINNER;Therapy: [id number] to Requested for: 13May2017 RecordedLisinopril-Hydroch lorothiazide 20-25 MG Oral Tablet; TAKE 1 TABLET ONCE DAILY Requested for: 20Mar2017; Last Rx:[id number] OrderedMetFORMIN HCl ER 500 MG Oral Tablet Extended Release 24 Hour; one a day;Therapy: 05Cmw3230 to (Last Rx:[id number]) Requested for: 60Znl8424 OrderedMetoprolol Succinate ER 50 MG Oral Tablet Extended Release 24 Hour; Take 1 tabletdaily;Therapy: 78Zyr8942 to (Evaluate:99Mft9828) Requested for: 05Ldu7433; LastRx:20Mar2017 NrualugMgzum-4-vnsh Ethyl Esters 1 GM Oral Capsule; 4 a day;Therapy: 13May2017 to (Last Rx:13May2017) Requested for: 13May2017 OrderedOmeprazole 40 MG Oral Capsule Delayed Release; TAKE 1 CAPSULE DAILY Requested for: 09Dec2017; Last Rx:09Dec2017 OrderedSimvastatin 80 MG Oral Tablet (Zocor); TAKE 1 TABLET AT BEDTIME;Therapy: 15Apr2017 to (Evaluate:10Apr2018) Requested for: 70Prs7050; LastRx:15Apr2017 Ordered Signatures Electronically signed by : Natalie Bone MD; Jan 24 2018 12:04PM EST (Author) Normal Touchworks TSHon 01-24-2018 Thyroid stimulating hormone (TSH) 0.92 m[IU]/L Normal 0.44 - 3.98 [facility] Comment on above: Result Comment: TSH testing is performed using different testing methodology at [facility] than at other [facility]. Direct result comparisons should only be made within the same method.. Patients receiving more than 5 mg/day of biotin may have interference in test results. A sample should be taken no sooner than eight hours after previous dose. Contact [phone] for additional information. Performed By: #### T SH2 ####[id number] [place] [address] UA MICROSCOPICon 01-24-2018 RBC 1 /HPF Normal 0-5 [facility] Comment on above: Performed By: #### U AMIC ####[id number] [place] [address] SQUAMOUS EPITH. CELLS 1 /HPF Normal [facility] Comment on above: Performed By: #### U AMIC ####[id number] [place] [address] WBC 1 /HPF Normal 0-5 [facility] Comment on above: Performed By: #### U AMIC ####[id number] [place] [address] URINALYSISon 01-24-2018 APPEARANCE CLEAR Normal CLEAR [facility] Comment on above: Performed By: #### U A ####[id number] [place] [address] BILIRUBIN Negative Normal NEGATIVE [facility] Comment on above: Performed By: #### U A ####[id number] [place] [address] BLOOD Negative Normal NEGATIVE [facility] Comment on above: Performed By: #### U A ####[id number] [place] [address] COLOR YELLOW Normal STRAW,YELLOW [facility] Comment on above: Performed By: #### U A ####[id number] [place] [address] GLUCOSE >=500 (3+) Abnormal NEGATIVE [facility] Comment on above: Performed By: #### U A ####[id number] [place] [address] KETONES Negative Normal NEGATIVE [facility] Comment on above: Performed By: #### U A ####[id number] [place] [address] LEUKOCYTE ESTERASE SMALL (1+) Abnormal NEGATIVE [facility] Comment on above: Performed By: #### U A ####[id number] [place] [address] NITRITE Negative Normal NEGATIVE [facility] Comment on above: Performed By: #### U A ####[id number] [place] [address] pH 5.0 Normal 5.0 - 8.0 [facility] Comment on above: Performed By: #### U A ####[id number] [place] [address] PROTEIN Negative Normal NEGATIVE [facility] Comment on above: Performed By: #### U A ####[id number] [place] [address] SPECIFIC GRAVITY 1.026 Normal 1.005 - 1.035 [facility] Comment on above: Performed By: #### U A ####[id number] [place] [address] UROBILINOGEN <2.0 Normal 0.0 - 1.9 [facility] Comment on above: Performed By: #### U A ####[id number] [place] [address] VITAMIN D, 25-HYDROXYon 12-30 VITAMIN D, 25-HYDROXY 18 ng/mL Abnormal [facility] Comment on above: Result Comment: .DEF ICIENCY: < 20 NG/MLINSUFFICIENCY: 20-29 NG/MLOPTIMUM LEVEL: 30-80 NG/MLPOSSIBLE TOXICITY: > 80 NG/MLTHIS ASSAY ACCURATELY QUANTIFIES THE SUM OFVITAMIN D3, 25-HYDROXY AND VIT D2,25-HYDROXY. Performed By: #### V TDOH ####[id number] [place] [address] Culture, urine Bacteria identified Cx Nom (U) Negative [facility] Work Phone: Bacteria identified Cx Nom (U) Mixed Gram Pos & Gram Neg Org [facility] Work Phone: Vital Signs Date Time Vital Sign Value Performing Clinician Facility 02-24-2025 09:07-0400 Body height 157.[address] Melanie Levy MD Work Phone: [facility] 02-24-2025 09:07-0400 Body mass index (BMI) [Ratio] 27.1 kg/m2 Dr. Melanie Levy MD Work Phone: 7(197)392-434842 [address] 02-24-2025 09:07-0400 Body weight 67.[address] Melanie Levy MD Work Phone: 3(100)001-786342 [address] 02-24-2025 09:07-0400 Diastolic blood pressure 83 mm[Hg] Dr. Melanie Levy MD Work Phone: [facility] 02-24-2025 09:07-0400 Heart rate 66 /min Dr. Melanie Levy MD Work Phone: [facility] 02-24-2025 09:07-0400 SaO2% (BldA) [Mass fraction] 98 % Dr. Melanie Levy MD Work Phone: 6(250)905-741846 [place] [address] 02-24-2025 09:07-0400 Systolic blood pressure 158 mm[Hg] Dr. Melanie Levy MD Work Phone: [facility] 02-23-2025 09:01-0400 Body height 157.[address] Melanie Levy MD Work Phone: [facility] 02-23-2025 09:01-0400 Body mass index (BMI) [Ratio] 26.9 kg/m2 Dr. Melanie Levy MD Work Phone: [facility] 02-23-2025 09:01-0400 Body weight 66.[address] Melanie Levy MD Work Phone: [facility] 02-03-2025 10:01-0400 Body height 157.[address] Melanie Levy MD Work Phone: 7(301)905-701674 [place] [address] 02-03-2025 10:01-0400 Body mass index (BMI) [Ratio] 27.1 kg/m2 Dr. Melanie Levy MD Work Phone: 7(273)161-278574 [place] [address] 02-03-2025 10:01-0400 Body weight 67.[address] Melanie Levy MD Work Phone: 3(165)881-806574 [place] [address] 02-03-2025 10:01-0400 Diastolic blood pressure 70 mm[Hg] Dr. Melanie Levy MD Work Phone: 2(651)650-088474 [place] [address] 02-03-2025 10:01-0400 Heart rate 89 /min Dr. Melanie Levy MD Work Phone: 7(701)436-139274 [place] [address] 02-03-2025 10:01-0400 Respiratory rate 16 /min Dr. Melanie Levy MD Work Phone: 9(407)048-751374 [place] [address] 02-03-2025 10:01-0400 Systolic blood pressure 110 mm[Hg] Dr. Melanie Levy MD Work Phone: 0(696)278-212474 [place] [address] 01-20-2025 11:24-0400 Body temperature 98.5 [degF] Dr. Melanie Levy MD Work Phone: 3(389)221-284974 [place] [address] 01-20-2025 11:24-0400 Diastolic blood pressure 68 mm[Hg] Dr. Melanie Levy MD Work Phone: 4(097)177-270774 [place] [address] 01-20-2025 11:24-0400 Heart rate 87 /min Dr. Melanie Levy MD Work Phone: 7(729)269-409574 [place] [address] 01-20-2025 11:24-0400 Respiratory rate 16 /min Dr. Melanie Levy MD Work Phone: 3(803)855-774346 [place] [address] 01-20-2025 11:24-0400 SaO2% (BldA) [Mass fraction] 98 % Dr. Melanie Levy MD Work Phone: [facility] 01-20-2025 11:24-0400 Systolic blood pressure 124 mm[Hg] Dr. Melanie Levy MD Work Phone: [facility] 09-07-2024 15:46-0400 Body height 157.[address] Melanie Levy MD Work Phone: 3(440)567-403046 [place] [address] 09-07-2024 15:46-0400 Body mass index (BMI) [Ratio] 25.2 kg/m2 Dr. Melanie Levy MD Work Phone: 7(498)508-298074 [place] [address] 09-07-2024 15:46-0400 Body weight 62.[address] Melanie Levy MD Work Phone: 8(483)416-586574 [place] [address] 09-07-2024 15:46-0400 Diastolic blood pressure 67 mm[Hg] Dr. Melanie Levy MD Work Phone: 9(826)065-776174 [place] [address] 09-07-2024 15:46-0400 Heart rate 83 /min Dr. Melanie Levy MD Work Phone: 6(434)760-756142 [address] 09-07-2024 15:46-0400 SaO2% (BldA) [Mass fraction] 96 % Dr. Melanie Levy MD Work Phone: 6(376)945-680474 [place] [address] 09-07-2024 15:46-0400 Systolic blood pressure 103 mm[Hg] Dr. Melanie Levy MD Work Phone: [facility] 07-29-2024 15:35-0500 Body temperature 98.8 [degF] Dr. Melanie Levy MD Work Phone: 7(181)769-720574 [place] [address] 07-29-2024 15:35-0500 Diastolic blood pressure 80 mm[Hg] Dr. Melanie Levy MD Work Phone: 5(282)534-651346 [place] [address] 07-29-2024 15:35-0500 Heart rate 85 /min Dr. Melanie Levy MD Work Phone: 9(701)032-099746 [place] [address] 07-29-2024 15:35-0500 Respiratory rate 18 /min Dr. Melanie Levy MD Work Phone: [facility] 07-29-2024 15:35-0500 SaO2% (BldA) [Mass fraction] 93 % Dr. Melanie Levy MD Work Phone: [facility] 07-29-2024 15:35-0500 Systolic blood pressure 125 mm[Hg] Dr. Melanie Levy MD Work Phone: [facility] 07-29-2024 04:24-0500 Body mass index (BMI) [Ratio] 24 kg/m2 Dr. Melanie Levy MD Work Phone: [facility] 07-29-2024 04:24-0500 Body weight 59.[address] Melanie Levy MD Work Phone: [facility] 07-28-2024 14:50-0500 Inhaled oxygen flow rate 2 L/min Dr. Melanie Levy MD Work Phone: [facility] 06-05-2024 14:53-0500 Body height 160 cm Nikole Jarrell ELECTRONIC TECHNICIAN Work Phone: [facility] 06-05-2024 14:53-0500 Body mass index (BMI) [Ratio] 24.09 kg/m2 Nikole Jarrell ELECTRONIC TECHNICIAN Work Phone: [facility] 06-05-2024 14:53-0500 Body weight 61.69 kg Nikole Jarrell ELECTRONIC TECHNICIAN Work Phone: [facility] 06-05-2024 14:53-0500 Diastolic blood pressure 76 mm[Hg] Nikole Jarrell ELECTRONIC TECHNICIAN Work Phone: [facility] 06-05-2024 14:53-0500 Heart rate 81 /min Nikole Jarrell ELECTRONIC TECHNICIAN Work Phone: [facility] 06-05-2024 14:53-0500 SaO2% (BldA) [Mass fraction] 97 % Nikole Jarrell ELECTRONIC TECHNICIAN Work Phone: [facility] 06-05-2024 14:53-0500 Systolic blood pressure 110 mm[Hg] Nikole jiménez ELECTRONIC TECHNICIAN Work Phone: [facility] 04-24-2024 14:05-0400 Body height 160 cm Nikole Jarrell ELECTRONIC TECHNICIAN Work Phone: [facility] 04-24-2024 14:05-0400 Body mass index (BMI) [Ratio] 25.24 kg/m2 Nikole Jarrell ELECTRONIC TECHNICIAN Work Phone: [facility] 04-24-2024 14:05-0400 Body weight 64.64 kg Nikole Jarrell ELECTRONIC TECHNICIAN Work Phone: [facility] 04-24-2024 14:05-0400 Diastolic blood pressure 74 mm[Hg] Nikole Jarrell ELECTRONIC TECHNICIAN Work Phone: [facility] 04-24-2024 14:05-0400 Heart rate 80 /min Nikole Jarrell ELECTRONIC TECHNICIAN Work Phone: [facility] 04-24-2024 14:05-0400 SaO2% (BldA) [Mass fraction] 95 % Nikole Jarrell ELECTRONIC TECHNICIAN Work Phone: [facility] 04-24-2024 14:05-0400 Systolic blood pressure 122 mm[Hg] Nikole jiménez ELECTRONIC TECHNICIAN Work Phone: [facility] 02-21-2024 14:25-0400 Body height 160 cm Nikole Jarrell ELECTRONIC TECHNICIAN Work Phone: [facility] 02-21-2024 14:25-0400 Body mass index (BMI) [Ratio] 26.31 kg/m2 Nikole Jarrell ELECTRONIC TECHNICIAN Work Phone: [facility] 02-21-2024 14:25-0400 Body weight 67.36 kg Nikole Jarrell ELECTRONIC TECHNICIAN Work Phone: [facility] 02-21-2024 14:25-0400 Diastolic blood pressure 62 mm[Hg] Nikole Jarrell ELECTRONIC TECHNICIAN Work Phone: [facility] 02-21-2024 14:25-0400 Heart rate 74 /min Nikole Jarrell ELECTRONIC TECHNICIAN Work Phone: [facility] 02-21-2024 14:25-0400 SaO2% (BldA) [Mass fraction] 96 % Nikole Jarrell ELECTRONIC TECHNICIAN Work Phone: [facility] 02-21-2024 14:25-0400 Systolic blood pressure 104 mm[Hg] Nikole Tong n ELECTRONIC TECHNICIAN Work Phone: [facility] 10-05-2023 09:54-0400 Body temperature 97.9 [degF] Dr. Melanie Levy Work Phone: [facility] 10-05-2023 09:54-0400 Diastolic blood pressure 70 mm[Hg] Dr. Melanie Levy Work Phone: [facility] 10-05-2023 09:54-0400 Heart rate 71 /min Dr. Melanie Levy Work Phone: [facility] 10-05-2023 09:54-0400 Respiratory rate 16 /min Dr. Melanie Levy Work Phone: [facility] 10-05-2023 09:54-0400 SaO2% (BldA) [Mass fraction] 98 % Dr. Melanie Levy Work Phone: [facility] 10-05-2023 09:54-0400 Systolic blood pressure 119 mm[Hg] Dr. Melanie Levy Work Phone: [facility] 10-04-2023 06:00-0400 Body mass index (BMI) [Ratio] 26.6 kg/m2 Dr. Melanie Levy Work Phone: [facility] 10-04-2023 06:00-0400 Body weight 68.[address] Melanie Levy Work Phone: [facility] 10-02-2023 07:50-0400 Body height 159.[address] Melanie Levy Work Phone: [facility] 09-20-2023 12:53-0400 SaO2% (BldA) [Mass fraction] 98 % [facility] Comment on above: Order Comment: Specimen Type: ARTERIAL B LOOD SPECIMENOrdering Facility: [facility] Address: [address] [place] [address] Performed By: #### A LLBG ####[facility] LABORATORYCLIA [id number] [place] [id number] [facility] 09-18-2023 00:09-0400 SaO2% (BldA) [Mass fraction] 100 % [facility] Comment on above: Order Comment: Specimen Type: ARTERIAL B LOOD SPECIMENOrdering Facility: [facility] Address: [address] [place] [address] Performed By: #### A LLBG ####[facility] LABORATORYCLIA [id number] [address] 09-17-2023 20:30-0400 Diastolic blood pressure 101 mm[Hg] Dr. Javier Levy Work Phone: [facility] 09-17-2023 20:30-0400 Heart rate 99 /min Dr. Javier Levy Work Phone: [facility] 09-17-2023 20:30-0400 Respiratory rate 12 /min Dr. Javier Levy Work Phone: [facility] 09-17-2023 20:30-0400 SaO2% (BldA) [Mass fraction] 99 % Dr. Javier Levy Work Phone: [facility] 09-17-2023 20:30-0400 Systolic blood pressure 169 mm[Hg] Dr. Javier Levy Work Phone: [facility] 09-17-2023 20:00-0400 Body temperature 98.6 [degF] Dr. Javier Levy Work Phone: [facility] 09-17-2023 19:46-0400 Inhaled oxygen concentration 30 % Dr. Javier Levy Work Phone: [facility] 09-17-2023 15:54-0400 Body height 160.[address] Javier Levy Work Phone: [facility] 09-17-2023 15:54-0400 Body weight [address] Javier Levy Work Phone: [facility] 09-17-2023 15:36-0400 Body mass index (BMI) [Ratio] 26.7 kg/m2 Dr. Javier Levy Work Phone: [facility] 09-14-2023 01:03-0400 Body temperature 97.4 [degF] Dr. Javier Levy Work Phone: 9(421)532-131346 [place] [address] 09-14-2023 01:03-0400 Diastolic blood pressure 74 mm[Hg] Dr. Javier Levy Work Phone: 4(975)510-509046 [place] [address] 09-14-2023 01:03-0400 Heart rate 78 /min Dr. Javier Levy Work Phone: [facility] 09-14-2023 01:03-0400 Respiratory rate 17 /min Dr. Javier Levy Work Phone: [facility] 09-14-2023 01:03-0400 SaO2% (BldA) [Mass fraction] 94 % Dr. Javier Levy Work Phone: [facility] 09-14-2023 01:03-0400 Systolic blood pressure 128 mm[Hg] Dr. Javier Levy Work Phone: [facility] 09-13-2023 20:07-0400 Body height 160.[address] Javier Levy Work Phone: [facility] 09-13-2023 20:07-0400 Body mass index (BMI) [Ratio] 27.6 kg/m2 Dr. Javier Levy Work Phone: [facility] 09-13-2023 20:07-0400 Body weight 70.[address] Javier Levy Work Phone: [facility] 10-19-2022 08:16-0400 Body temperature 98 [degF] Dr. Javier Levy Work Phone: [facility] 10-19-2022 08:16-0400 Diastolic blood pressure 84 mm[Hg] Dr. Javier Levy Work Phone: [facility] 10-19-2022 08:16-0400 Heart rate 84 /min Dr. Javier Levy Work Phone: [facility] 10-19-2022 08:16-0400 Respiratory rate 15 /min Dr. Javier Levy Work Phone: [facility] 10-19-2022 08:16-0400 SaO2% (BldA) [Mass fraction] 94 % Dr. Javier Levy Work Phone: [facility] 10-19-2022 08:16-0400 Systolic blood pressure 132 mm[Hg] Dr. Javier Levy Work Phone: [facility] 05-28-2022 18:32-0500 Body temperature 98.1 [degF] Kimmy Prajevonler-Bassem SHALE PLANER OPERATOR.CHEMICAL TEST ENGINEER Work Phone: [facility] 05-28-2022 18:32-0500 Body weight 72.94 kg Kimmy Praisler-Wood SHALE PLANER OPERATOR.CHEMICAL TEST ENGINEER Work Phone: [facility] 05-28-2022 18:32-0500 Diastolic blood pressure 88 mm[Hg] Kimmy Praisler-Wood SHALE PLANER OPERATOR.CHEMICAL TEST ENGINEER Work Phone: [facility] 05-28-2022 18:32-0500 Heart rate 80 /min Kimmy Praisler-Wood SHALE PLANER OPERATOR.CHEMICAL TEST ENGINEER Work Phone: [facility] 05-28-2022 18:32-0500 Respiratory rate 20 /min Kimmy Praisler-Wood SHALE PLANER OPERATOR.CHEMICAL TEST ENGINEER Work Phone: [facility] 05-28-2022 18:32-0500 SaO2% (BldA) [Mass fraction] 94 % Kimmy Caal SHALE PLANER OPERATOR.CHEMICAL TEST ENGINEER Work Phone: [facility] 05-28-2022 18:32-0500 Systolic blood pressure 138 mm[Hg] Kimmy Caal APRN.CHEMICAL TEST ENGINEER Work Phone: [facility] 04-18-2022 08:58-0400 Body height 157.5 cm Beverley Luna MD Work Phone: [facility] 04-18-2022 08:58-0400 Body weight 70.31 kg Beverley Luna MD Work Phone: [facility] 01-22-2022 15:37-0400 Body temperature 98.2 [degF] Dr. Javier Levy Work Phone: [facility] Work Phone: 01-22-2022 15:37-0400 Diastolic blood pressure 68 mm[Hg] Dr. Javier Levy Work Phone: [facility] Work Phone: 01-22-2022 15:37-0400 Heart rate 87 /min Dr. Javier Levy Work Phone: [facility] Work Phone: 01-22-2022 15:37-0400 Respiratory rate 14 /min Dr. Javier Levy Work Phone: [facility] Work Phone: 01-22-2022 15:37-0400 SaO2% (BldA) [Mass fraction] 98 % Dr. Javier Levy Work Phone: [facility] Work Phone: 01-22-2022 15:37-0400 Systolic blood pressure 124 mm[Hg] Dr. Javier Levy Work Phone: [facility] Work Phone: 11-03-2021 10:29-0400 Body height 157.5 cm Beverley Luna MD Work Phone: [facility] 11-03-2021 10:29-0400 Body weight 66.68 kg Beverley Luna MD Work Phone: [facility] 09-29-2021 10:26-0400 Body height 157.5 cm Les Griffin SHALE PLANER OPERATOR.CHEMICAL TEST ENGINEER Work Phone: [facility] 09-29-2021 10:26-0400 Body weight 66.68 kg Les Griffin SHALE PLANER OPERATOR.CHEMICAL TEST ENGINEER Work Phone: [facility] 09-29-2021 10:26-0400 Diastolic blood pressure 80 mm[Hg] Les Griffin SHALE PLANER OPERATOR.CHEMICAL TEST ENGINEER Work Phone: [facility] 09-29-2021 10:26-0400 Systolic blood pressure 142 mm[Hg] Les Griffin SHALE PLANER OPERATOR.C ELECTRONIC TECHNICIAN Work Phone: [facility] 09-20-2021 13:09-0400 Body height 157.5 cm Beverley Luna MD Work Phone: [facility] 09-20-2021 13:09-0400 Body weight 66.68 kg Beverley Luna MD Work Phone: [facility] 09-20-2021 13:09-0400 Diastolic blood pressure 72 mm[Hg] Beverley Luna MD Work Phone: [facility] 09-20-2021 13:09-0400 Systolic blood pressure 134 mm[Hg] Beverley Luna MD Work Phone: [facility] Encounters Encounter Date Encounter Type Care Provider Facility Start: 02-24-2025 End: 02-24-2025 Patient encounter procedure Marli Barton ELECTRONIC TECHNICIAN-C -[facility] Work Phone: Start: 02-24-2025 End: 02-24-[address] Melanie Levy MD Work Phone: -[facility] Start: 02-23-2025 End: 02-23-2025 Patient encounter procedure Ivelisse Ramirez PA -[facility] Work Phone: Start: 02-23-2025 End: 02-24-[address] Melanie Levy MD Work Phone: -[facility] Start: 02-09-2025 End: 02-09-[address] Adam Alvarado MD -[facility] Work Phone: Start: 02-09-2025 End: 02-09-[address] Melanie Levy MD Work Phone: -[facility] Start: 02-03-2025 End: 02-03-[address] Kendrick Morales MD -[facility] Work Phone: Start: 02-03-2025 End: 02-03-[address] Melanie Levy MD Work Phone: -[facility] Start: 01-20-2025 End: 01-20-2025 Patient encounter procedure Luke De Jesus RI -[facility] Work Phone: Start: 01-20-2025 End: 01-20-[address] Melanie Levy MD Work Phone: -[facility] Start: 01-20-2025 End: 01-20-2025 ambulatory Melanie Levy Facility:[facility] Start: 12-07-2024 End: 12-07-[address] Melanie Levy MD Work Phone: [facility] Work Phone: Start: 12-07-2024 End: 12-07-2024 Patient encounter procedure Ivelisse GRANADO -Laboratory Specimen Work Phone: Start: 12-07-2024 End: 12-07-2024 ambulatory Melanie Levy Facility:[facility] Start: 11-25-2024 End: 11-25-[address] Melanie Levy MD Work Phone: [facility] Work Phone: Start: 11-25-2024 End: 11-25-2024 Patient encounter procedure Ivelisse GRANADO -Laboratory Specimen Work Phone: Start: 11-24-2024 Non-patient / Non-visit Dr. Jersey duarte MD -[facility] Start: 11-24-2024 End: 11-25-[address] Melanie Levy MD Work Phone: [facility] Work Phone: Start: 11-24-2024 End: 11-24-[address] Melanie Levy MD -Cardiovascular Services Work Phone: Start: 11-24-2024 End: 11-24-2024 ambulatory Melanie Levy Facility:[facility] Start: 11-19-2024 End: 11-19-2024 Patient encounter procedure Ivelisse GRANADO -[facility] Work Phone: Start: 11-19-2024 End: 11-19-[address] Melanie Levy MD Work Phone: [facility] Work Phone: Start: 11-19-2024 End: 11-19-2024 ambulatory Melanie Levy Facility:[facility] Start: 11-03-2024 End: 11-03-[address] Melanie Levy MD Work Phone: [facility] Work Phone: Start: 11-03-2024 End: 11-03-[address] Melanie Levy MD -Laboratory, Specimen Work Phone: Start: 11-03-2024 End: 11-03-2024 ambulatory Melanie Levy Facility:[facility] Start: 09-17-2024 End: 09-17-[address] Melanie Levy MD Work Phone: [facility] Work Phone: Start: 09-17-2024 End: 09-17-2024 Patient encounter procedure Ivelisse GRANADO -Laboratory Work Phone: Start: 09-17-2024 End: 09-17-2024 Patient encounter procedure Ivelisse GRANADO -[facility] Work Phone: Start: 09-17-2024 End: 09-17-2024 ambulatory [facility] Facility:[facility] Start: 09-17-2024 End: 09-17-2024 ambulatory [facility] Facility:[facility] Start: 09-07-2024 End: 09-07-2024 Patient encounter procedure Maril Barton NP-Kiera -[facility] Work Phone: Start: 09-07-2024 End: 09-07-2024 ambulatory [facility] Facility:[facility] Start: 09-03-2024 End: 09-03-2024 Patient encounter procedure Ramez Khan DO -[facility] Work Phone: Start: 09-03-2024 End: 09-03-2024 ambulatory [facility] Facility:[facility] Start: 08-12-2024 End: 08-12-2024 Patient encounter procedure Ivelsise GRANADO -Laboratory Work Phone: Start: 08-12-2024 End: 08-12-2024 Patient encounter procedure Ivelisse GRANADO -[facility] Work Phone: Start: 08-12-2024 End: 08-12-2024 ambulatory [facility] Facility:[facility] Start: 08-12-2024 End: 08-12-2024 ambulatory [facility] Facility:[facility] Start: 08-06-2024 ambulatory [facility] Faci lity:[facility] Start: 07-29-2024 Non-patient / Non-visit Dr. Marielena Roberts DO [facility] Work Phone: Start: 07-28-2024 Non-patient / Non-visit Dr. Marielena Roberts DO [facility] Work Phone: Start: 07-28-2024 Non-patient / Non-visit Ramez Black nd DO -[facility] Start: 07-27-2024 Non-patient / Non-visit Dr. Marielena Roberts DO [facility] Work Phone: Start: 07-27-2024 ambulatory Mai Pérez [place] Start: 07-27-2024 End: 07-29-2024 Evaluation and management of inpatient Dr. Marielena Roberts DO -Pro[facility] Work Phone: Start: 07-26-2024 ambulatory Mai Pérez [place] Start: 07-26-2024 Non-patient / Non-visit Dr. Candi Pérez MD -[facility] Work Phone: Start: 06-05-2024 End: 06-05-2024 Office outpatient visit 25 minutes Nikole Jarrell ELECTRONIC TECHNICIAN Work Phone: [facility] Comment on above: Partial symptomatic epilepsy with complex partial seizures, not intractable, without status epilepticus (CMS/HCC) Start: 06-05-2024 End: 06-05-2024 Bamboo flowsheet Nikole Jarrell ELECTRONIC TECHNICIAN Work Phone: [facility] Start: 06-05-2024 End: 06-05-2024 Bamboo flowsheet Nikole Jarrell ELECTRONIC TECHNICIAN Work Phone: [facility] Start: 05-18-2024 End: 05-18-2024 ambulatory Power Paul Facility:[facility] Start: 05-07-2024 End: 05-07-2024 ambulatory Melanie eLvy [place] Start: 04-24-2024 End: 04-24-2024 Bamboo flowsheet Nikole Jarrell ELECTRONIC TECHNICIAN Work Phone: [facility] Start: 04-24-2024 End: 04-24-2024 Bamboo flowsheet Nikole Jarrell ELECTRONIC TECHNICIAN Work Phone: [facility] Start: 04-24-2024 End: 04-24-2024 Office outpatient visit 25 minutes Nikole Jarrell ELECTRONIC TECHNICIAN Work Phone: [facility] Comment on above: Partial symptomatic epilepsy with complex partial seizures, not intractable, without status epilepticus (CMS/HCC) (Primary Dx) Start: 04-24-2024 End: 04-27-2024 Telephone encounter Nikole Jarrell ELECTRONIC TECHNICIAN Work Phone: [facility] Start: 04-24-2024 End: 04-24-2024 ambulatory NIKOLE JARRELL Not Available Start: 02-21-2024 End: 02-21-2024 Office outpatient visit 25 minutes Nikole Jarrell ELECTRONIC TECHNICIAN Work Phone: [facility] Comment on above: Partial symptomatic epilepsy with complex partial seizures, not intractable, without status epilepticus (CMS/HCC) (Primary Dx); PRES (posterior reversible encephalopathy syndrome); Primary hypertension (CMS/HCC); Type 2 diabetes mellitus with hyperglycemia, with long-term current use of insulin ([facility]) Start: 02-21-2024 End: 02-21-2024 ambulatory NIKOLE JARRELL Not Available Start: 02-21-2024 End: 02-21-2024 Bamboo flowsheet Nikole Jarrell ELECTRONIC TECHNICIAN Work Phone: [facility] Start: 02-21-2024 End: 02-21-2024 Bamboo flowsheet Nikole Jarrell ELECTRONIC TECHNICIAN Work Phone: [facility] Start: 11-05-[address] Jamari Levy Work Phone: [facility]-Speech Therapy Work Phone: Start: 11-02-2023 End: 11-02-[address] Melanie Levy Work Phone: [facility] Work Phone: Start: 11-02-2023 End: 11-02-[address] Melanie Levy Work Phone: [facility]-MRI - [facility] Work Phone: Start: 10-15-2023 End: 10-15-2023 ambulatory [place] Not Available Start: 10-07-2023 ambulatory Esteban Mitri Pulmonar y Medicine Start: 10-04-2023 Non-patient / Non-visit Dr. Natalia Levy Work Phone: [facility] Inpatient Physicians Work Phone: Start: 10-03-2023 Non-patient / Non-visit Dr. Natalia Levy Work Phone: [facility] Work Phone: Start: 10-02-2023 Non-patient / Non-visit Dr. Natalia Levy Work Phone: [facility] Work Phone: Start: 10-01-2023 Non-patient / Non-visit Dr. Natalia Levy Work Phone: [facility] Work Phone: Start: 09-30-2023 Non-patient / Non-visit Dr. Natalia Levy Work Phone: [facility] Work Phone: Start: 09-29-2023 Non-patient / Non-visit Dr. Natalia Levy Work Phone: [facility] Work Phone: Start: 09-27-2023 Non-patient / Non-visit Dr. Natalia Levy Work Phone: [facility] Work Phone: Start: 09-26-2023 Non-patient / Non-visit Dr. Natalia Levy Work Phone: [facility] Work Phone: Start: 09-25-2023 End: 10-05-2023 Evaluation and management of inpatient Dr. Melanie Levy Work Phone: [facility]-Rehab Unit Work Phone: Start: 09-18-2023 Evaluation and management of inpatient MELANIE LEVY Facility:[facility] Start: 09-17-2023 End: 09-17-2023 Emergency department patient visit Dr. Javier Levy Work Phone: [facility]-Emergency Department Work Phone: Start: 09-17-2023 ambulatory Yue Bingham APRN.CHEMICAL TEST ENGINEER Work Phone: Critical Care Start: 09-13-2023 End: 09-14-2023 Emergency department patient visit Dr. Javier Levy Work Phone: [facility]-Emergency Department Work Phone: Start: 09-05-2023 End: 09-05-[address] Javier Levy Work Phone: [facility] Work Phone: Start: 09-05-2023 End: 09-05-[address] Javier Levy Work Phone: [facility]-Outpatient Bone Densitometry Work Phone: Start: 08-23-2023 Non-patient / Non-visit Dr. Natalia Levy Work Phone: [facility] Start: 08-23-2023 End: 08-23-[address] Javier Levy Work Phone: [facility] Work Phone: Start: 08-23-2023 End: 08-23-[address] Javier Levy Work Phone: [facility]-Cardiovascular Services Work Phone: Start: 06-07-2023 End: 06-07-2023 ambulatory MELANIE LEVY Facility:[facility] Start: 03-25-2023 Preprocedural examination done Yue Bingham APRN.CHEMICAL TEST ENGINEER Work Phone: [facility] Work Phone: Start: 03-25-2023 Encounter for other preprocedural examination [facility] Start: 03-25-2023 End: 03-26-2023 ambulatory MELANIE LEVY Facility:[facility] Start: 03-25-2023 End: 03-26-2023 ambulatory [facility]ICKINSON [facility] Start: 03-25-2023 Encounter for other preprocedural examination HENRI DICKINSON [facility] Start: 12-11-2022 End: 12-11-[address] Javier Levy Work Phone: [facility] Work Phone: Start: 12-11-2022 End: 12-11-[address] Javier Levy Work Phone: [facility] Start: 11-08-2022 End: 11-08-[address] Javier Levy Work Phone: [facility] Start: 11-02-2022 End: 11-02-[address] Javier Levy Work Phone: [facility] Work Phone: Start: 11-02-2022 End: 11-02-[address] [facility] Start: 10-19-2022 End: 10-19-[address] Javier Levy Work Phone: [facility] Start: 09-20-2022 End: 09-20-2022 ambulatory [facility] Work Phone: Start: 09-20-2022 End: 09-20-2022 Patient encounter procedure [facility] Start: 08-09-2022 End: 08-09-2022 ambulatory [facility] Work Phone: Start: 08-09-2022 End: 08-09-2022 Patient encounter procedure [facility] Start: 05-30-2022 Telephone encounter Kimmy Wright APRN.CNP Work Phone: [facility] Comment on above: Results Start: 05-28-2022 End: 05-28-2022 Patient encounter procedure Kimmy MayersWanda RIGGS.CHEMICAL TEST ENGINEER Work Phone: [facility] Comment on above: Urinary frequency (P rimary Dx) Start: 05-28-2022 Telephone encounter Beverley newman MD Work Phone: [facility] Comment on above: UTI Start: 05-11-2022 Telephone encounter Beverley newman MD Work Phone: Urology Comment on above: Returning Patient's Call Start: 04-18-2022 End: 04-18-2022 Patient encounter procedure Beverley Luna MD Work Phone: URO/Gynecology Comment on above: Complete uterovagina l prolapse (Primary Dx); Cystocele, midline; Rectocele; Poorly controlled diabetes mellitus (HCC); Gross hematuria; Bladder wall thickening; Abnormal cystoscopy; Acute cystitis without hematuria Start: 02-07-2022 End: 02-07-[address] Javier Levy Work Phone: [facility]-Laboratory, Specimen Start: 01-22-2022 End: 01-22-[address] Javier Levy Work Phone: [facility] Start: 11-16-2021 Telephone encounter Arnaldo melchor MD Work Phone: Urology Comment on above: No Show Start: 11-10-2021 Telephone encounter Beverley newman MD Work Phone: URO/Gynecology Comment on above: Results Start: 11-03-2021 End: 11-03-2021 Patient encounter procedure Beverley Luna MD Work Phone: URO/Gynecology Comment on above: Gross hematuria (Barbara henri Dx); Bladder wall thickening; Abnormal cystoscopy Start: 10-26-2021 End: 10-26-2021 Patient encounter procedure [facility]-Laboratory, Specimen Start: 10-16-2021 Telephone encounter Les caballero APRN.CHEMICAL TEST ENGINEER Work Phone: Urogynecology Comment on above: Results Start: 10-12-2021 End: 10-12-2021 Nursing evaluation of patient and report Nurse [employer] Work Phone: Urology Comment on above: Abnormal urine; Urinary tract infection without hematuria, site unspecified Start: 10-09-2021 Telephone encounter Les caballero APRN.CHEMICAL TEST ENGINEER Work Phone: Urogynecology Comment on above: Results Start: 09-29-2021 ambulatory Moira Westbrook RN NURSE ASSISTANT PLANT CONTROLLER Comment on above: Information Start: 09-29-2021 End: 09-29-2021 Patient encounter procedure Lessalena Griffin SHALE PLANER OPERATOR.CHEMICAL TEST ENGINEER Work Phone: URO/Gynecology Comment on above: Encounter for fittin g and adjustment of pessary (Primary Dx); Complete uterovaginal prolapse; Cystocele, midline; Rectocele Start: 09-25-2021 Telephone encounter Les Nava x SHALE PLANER OPERATOR.CHEMICAL TEST ENGINEER Work Phone: Urogynecology Comment on above: Results Start: 09-20-2021 End: 09-20-2021 Patient encounter procedure Beverley Luna MD Work Phone: URO/Gynecology Comment on above: Gross hematuria (Barbara henri Dx); Complete uterovaginal prolapse; Cystocele, midline; Rectocele; Poorly controlled diabetes mellitus (HCC) Start: 03-11-2018 Patient encounter NATALIE Salcedo cility:[facility] Start: 03-11-2018 End: 03-12-2018 Patient encounter ACE SOLIZ Facility:[facility] Procedures Date Procedure Procedure Detail Performing Clinician Start: 02-24-2025 Total iron binding capacity measurement Dr. Melanie Levy MD Work Phone: Start: 02-24-2025 Urine microalbumin/creatinine ratio measurement Dr. Melanie Levy MD Work Phone: Comment on above: Previous reported re sult: UNABLE TO CALCULATE mg/g CREEdited by: AUTOINS on 02/24/25:1547 AMENDED REPORT 02/24/25 1547 MALB:CREAT previously reported as: UNABLE TO CALCULATE mg/g CRE Start: 02-24-2025 Vitamin D, 25-hydrox y measurement Dr. Melanie Levy MD Work Phone: Comment on above: Vitamin D StatusDefi ciency: <20 ng/mL (50nmol/L)Insufficiency: 20-30 ng/mL (50-75 nmol/L)Sufficiency: 30-100 ng/mL (75-250 nmol/L)Toxicity: >100 ng/mL (>250 nmol/L) Start: 01-20-2025 X-ray of ankle, thre e or more views Dr. Melanie Levy MD Work Phone: Start: 01-20-2025 X-ray of foot, three or more views Dr. Melanie Levy MD Work Phone: Start: 11-03-2024 Urine microalbumin/creatinine ratio measurement Dr. Melanie Levy MD Work Phone: Comment on above: Previous reported re sult: 763.0 mg/g CREEdited by: ADRIEN on 12/18/24:0828 AMENDED REPORT 12/18/24 0828 MALB:CREAT previously reported as: 763.0 mg/g CRE Start: 07-29-[address] Melanie Levy MD Work Phone: Start: 07-29-2024 Measurement of renal function Dr. Melanie Levy MD Work Phone: Comment on above: GFR Calc Start: 07-28-[address] Freedom Levy MD Work Phone: Start: 07-26-2024 Total iron binding capacity measurement Dr. Melaine Levy MD Work Phone: Start: 07-26-2024 Plain chest X-ray Dr. Kiera Levy MD Work Phone: Start: 07-26-2024 X-ray of foot, three or more views Dr. Melanie Levy MD Work Phone: Start: 07-26-2024 CT cervical spine wi thout contrast Dr. Melanie Levy MD Work Phone: Start: 07-26-2024 CT of head without contrast Dr. Melanie Levy MD Work Phone: Start: 07-26-2024 Measurement of occul t blood in stool specimen using immunoassay Dr. Melanie Levy MD Work Phone: Start: 11-02-2023 MRI of brain without contrast Dr. Melanie Levy Work Phone: Start: 09-26-2023 X-ray of cervical spine Dr. Melanie Levy Work Phone: Start: 09-17-2023 Plain chest X-ray Dr. Kiera Levy Work Phone: Start: 09-17-2023 CT angiography of he ad and neck Dr. Javier Levy Work Phone: Start: 09-17-2023 CT of head without contrast Dr. Javier Levy Work Phone: Start: 09-05-2023 Dual energy X-ray absorptiometry Dr. Javier Levy Work Phone: Start: 09-05-2023 Screening mammography D ally Levy Work Phone: Start: 03-25-2023 Antibody screen HENRI STEWART Comment on above: Order Comment: Speci men Type: BLOOD SPECIMENOrdering Facility: [facility] Address: [address] [place] [address] Performed By: #### T [id number] ####[facility] BLOOD BANKIA [id number] [place] [address] [place] Start: 05-28-2022 Urnls dip stick/tabl et rgnt auto w/o microscopy Nadya Marvin SHALE PLANER OPERATOR.CHEMICAL TEST ENGINEER Work Phone: Start: 04-18-2022 Urnls dip stick/tabl et rgnt auto w/o microscopy Beverley Luna MD Work Phone: Start: 11-03-2021 Urnls dip stick/tabl et rgnt auto w/o microscopy Beverley Luna MD Work Phone: Start: 10-26-2021 Bacteria identified in Urine by Culture Start: 10-26-2021 Urine culture Start: 10-26-2021 CT of abdomen and pe lvis without contrast Start: 09-20-2021 End: 09-20-2021 Urnls dip stick/tablet rgnt auto w/o microscopy Beverley Luna MD Work Phone: Start: 04-11-2017 Mammography Beverley cruz MD Work Phone: Bacteria identified in Urine by Culture Dr. 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 Javier Levy Work Phone: Urine culture Urine culture Dr. Javier Levy Work Phone: Urine culture Dr. Javier Levy Work Phone: Plan of Treatment Date Care Activity Detail Author Start: 08-22-2032 Urine microalbumin profile DTa P,Tdap,Td Vaccine (2 - Td or Tdap) [facility] Start: 09-11-2026 HPV TESTING HPV TESTING [facility] Start: 09-11-2026 PAP TESTING PAP TESTING [facility] Start: 02-03-2025 Evaluation of diagno stic study results [facility] Start: 09-04-2024 End: 09-04-2024 Patient encounter procedure 09/04/2024 2:00 PM EST Office Visit [facility] [address] [place] [phone] Nikole Jarrell NP [address] [place], [place] [id number] [facility] Start: 07-29-2024 [facility] Start: 07-27-2024 End: 07-28-2024 [facility] Start: 07-27-2024 [facility] Start: 07-27-2024 End: 07-27-2024 Administration of blood product [facility] Start: 07-26-2024 Application of intermittent pneumatic compression device [facility] Start: 07-26-2024 Assessment of risk o f venous thromboembolism [facility] Start: 07-26-2024 Care regimes management [facility] Start: 07-26-2024 Fall prevention [facility] Start: 07-26-2024 Insertion of cathete r into peripheral vein [facility] Start: 07-26-2024 Introduction of urin monica catheter [facility] Start: 07-26-2024 Measuring intake and output [facility] Start: 07-26-2024 Notification of physician [facility] Start: 07-26-2024 Oxygen therapy [facility] Start: 07-26-2024 Providing care accor ding to standard [facility] Start: 07-26-2024 Provision of activit y privileges [facility] Start: 07-26-2024 Referral to gastroenterology service [facility] Start: 07-26-2024 Referral to service [facility] Start: 07-26-2024 End: 07-26-2024 [facility] Start: 07-26-2024 Following clinical p athway protocol [facility] Start: 07-26-2024 Admission procedure [facility] Start: 07-26-2024 Patient referral to dietitian [facility] Start: 06-05-2024 End: 06-05-2024 Patient encounter procedure [facility] Comment on above: Arrived Start: 04-24-2024 End: 04-24-2025 EEG awake or drowsy EEG awake or drowsy Neurology Routine Partial symptomatic epilepsy with complex partial seizures, not intractable, without status epilepticus ([facility]) Expected: 04/24/2024 (Approximate), Expires: 04/24/2025 [facility] Work Phone: Comment on above: Expected: 04/24/2024 (Approximate), Expires: 04/24/2025 Start: 04-24-2024 End: 04-24-2024 Patient encounter procedure [facility] Comment on above: Arrived Start: 03-01-2024 Influenza vaccination [facility] Start: 02-21-2024 End: 02-21-2024 Patient encounter procedure 02/21/2024 2:30 PM EDT Office Visit [facility] [address] [place] [phone] Nikole Jarrell ELECTRONIC TECHNICIAN [address] [place] [address] Arrived [facility] Comment on above: Arrived Start: 12-18-2023 Hemoglobin A1c measurement HbA1C [facility] Start: 10-04-2023 [facility] Start: 10-04-2023 Patient discharge [facility] Start: 09-30-2023 [facility] Start: 09-30-2023 Patient referral to dietitian [facility] Start: 09-30-2023 Measuring intake and output [facility] Start: 09-26-2023 [facility] Start: 09-26-2023 Recommendation to co solitario with treatment [facility] Start: 09-26-2023 [facility] Start: 09-25-2023 Urinary bladder training [facility] Start: 09-25-2023 Admission procedure [facility] Start: 09-25-2023 Patient referral to dietitian [facility] Start: 09-25-2023 Referral to occupati onal therapist [facility] Start: 09-25-2023 Referral to service [facility] Start: 09-25-2023 Vital signs measurements [facility] Start: 09-25-2023 [facility] Start: 09-25-2023 Incentive spirometry [facility] Start: 09-25-2023 Speech therapy assessment [facility] Start: 09-17-2023 [facility] Start: 09-17-2023 Airway suction technique [facility] Start: 09-17-2023 Creatine kinase [Enz ymatic activity/volume] in Serum or Plasma [facility] Start: 09-17-2023 Triglycerides measurement [facility] Start: 09-17-2023 Oxygen therapy [facility] Start: 09-17-2023 [facility] Start: 09-17-2023 [facility] Start: 09-14-2023 [facility] Start: 09-05-2023 Dual energy X-ray absorptiometry Dexa Bone Density Study [facility] Start: 07-01-2023 Advance Directive Discussion Advance Directive Discussion [facility] Start: 07-01-2023 Behavioral Health Screening Behavioral Health Screening [facility] Start: 07-01-2023 Depression Assessment Depression Ass essment [facility] Start: 2023 Pneumococcal Vaccine : 65+ Years (1 of 1 - PCV) Pneumococcal Vaccine: 65+ Years (1 of 1 - PCV) [facility] Start: 2023 Screening for osteoporosis Bone Dens ity Screening [facility] Start: 03-01-2023 Covid-19 Vaccine () Covid-19 Vaccine () [facility] Start: 03-01-2023 Influenza vaccination Influenza Vacc ine (#1) [facility] Start: 05-28-2022 End: 07-28-2022 Bacteria identified in Urine by Culture [facility] Work Phone: Comment on above: Expected: 05/28/2022 (Approximate), Expires: 07/28/2022 Ordered: 05/28/2022 Start: 03-01-2022 Influenza vaccination [facility] Start: 10-16-2021 End: 12-16-2021 CREATININE BLD CREATININE BLD Lab Routine Gross hematuria Expected: 10/16/2021, Expires: 12/16/2021 [facility] Work Phone: Comment on above: Expected: 10/16/2021 , Expires: 12/16/2021 Start: 10-09-2021 End: 12-09-2021 Bacteria identified in Urine by Culture URINE CULTURE Microbiology Routine Fungus present in urine Expected: 10/09/2021 (Approximate), Expires: 12/09/2021 [facility] Work Phone: Comment on above: Expected: 10/09/2021 (Approximate), Expires: 12/09/2021 Start: 10-09-2021 End: 12-09-2021 Urinalysis complete panel - Urine URINALYSIS, WITH MICROSCOPIC Lab Routine Fungus present in urine Expected: 10/09/2021 (Approximate), Expires: 12/09/2021 [facility] Work Phone: Comment on above: Expected: 10/09/2021 (Approximate), Expires: 12/09/2021 Start: 08-16-2021 COVID-19 VACCINE (4 - Booster for Pfizer series) COVID-19 VACCINE (4 - Booster for Pfizer series) [facility] Start: 07-01-2021 DEPRESSION ASSESSMENT DEPRESSION ASS ESSMENT [facility] Start: 06-10-2021 COVID-19 VACCINE (4 - Booster for Pfizer series) COVID-19 VACCINE (4 - Booster for Pfizer series) [facility] Start: 03-01-2021 Influenza vaccination INFLUENZA (#1) [facility] Start: 01-24-2019 Hepatitis B surface antibody level LDL Cholesterol [facility] Start: 04-26-2018 Hemoglobin A1c measurement HbA1C [facility] Start: 04-11-2018 Mammography MAMMOGRAM [facility] Start: 04-11-2018 Screening for malign ant neoplasm of breast Mammogram Screening [facility] Start: 2018 RSV Vaccine (1 - 1-d ose 60+ series) RSV Vaccine (1 - 1-dose 60+ series) [facility] Start: 04-04-2016 Hemoglobin A1c/Hemoglobin.total in Blood HBA1C [facility] Start: 2008 Influenza vaccination LUNG CANCER SC REENING [facility] Start: 2008 Screening for malign ant neoplasm of lung Lung Cancer Screening [facility] Start: 2008 SHINGRIX VACCINE (1 of 2) HOBBS GRIX VACCINE (1 of 2) [facility] Start: 2003 COLOGUARD (FIT-DNA) COLOGUARD (FIT-D NA) [facility] Start: 2003 Colonoscopy COLONOSCOPY [facility] Start: 2003 COLORECTAL CANCER SCREENING COLORECTAL CANCER SCREENING [facility] Start: [address] COLONOGRAPHY [facility] Start: 2003 FECAL OCCULT BLOOD FECAL OCCULT BLOO D [facility] Start: 2003 Screening for malign ant neoplasm of colon [facility] Start: 2003 SIGMOIDOSCOPY SIGMOIDOSCOPY [facility] Start: 1998 Screening for malign ant neoplasm of breast Mammogram [facility] Start: 1977 Urine microalbumin profile DTAP,TDAP ,TD (1 - Tdap) [facility] Start: 1976 ANNUAL PCP TEAM RADIOLOGY NURSE DAGMAR DISEASE VISIT ANNUAL PCP TEAM CHRONIC DISEASE VISIT [facility] Start: 1976 BP CONTROLLED (<130/80) BP CONTROLLE D (<130/80) [facility] Start: 1976 Hepatitis B surface antibody level LDL CHOLESTEROL [facility] Start: 1976 HEPATITIS C SCREENING HEPATITIS C [facility] Start: 1976 Hepatitis C screening Hepatitis C [facility] Start: 1976 HIV SCREENING HIV SCREENING [facility] Start: 1976 HIV screening HIV Screening [facility] Start: 1974 ONE PNEUMOVAX PRIOR TO AGE 65 ONE PNEUMOVAX PRIOR TO AGE 65 [facility] Start: 1970 Adult depression scr eening assessment DEPRESSION SCREENING [facility] Start: 1968 3 comp foot exam completed DIABETIC FOOT EXAM [facility] Start: 1968 Diabetic foot examination Diabetic F oot Exam [facility] Start: 1968 Glaucoma screening Dilated Retinal E xam [facility] Start: 1968 Hepatitis B screening URINE ALBUMIN:CREATININE RATIO [facility] Start: 1968 Hepatitis C antibody , confirmatory test DILATED RETINAL EXAM [facility] Start: 1964 PNEUMOCOCCAL (1 - PCV) PNEUMOCOCCAL (1 - PCV) [facility] Start: 1963 COVID-19 VACCINE (1) COVID-19 VACCIN E (1) [facility] Start: 1958 Screening for malign ant neoplasm of colon [facility] Bacteria identified in Sputum by Respiratory culture [facility] Bacteria identified in Urine by Culture URINE CULTURE Microbiology Routine Gross hematuria Ordered: 09/20/2021 [facility] Work Phone: Comment on above: Ordered: 09/20/2021 Bacteria identified in Urine by Culture URINE CULTURE Microbiology Routine Acute cystitis without hematuria Ordered: 04/18/2022 [facility] Work Phone: Comment on above: Ordered: 04/18/2022 CBC W Auto Different ial panel - Blood [facility] Comprehensive metabo lic 2000 panel - Serum or Plasma [facility] End: 11-15-2022 Ct abdomen & pelvis w/o contrst 1/> body re CT UROGRAM WO/W IVCON Radiology Routine Gross hematuria 1 Occurrences starting 10/16/2021 until 11/15/2022 [facility] Work Phone: Comment on above: 1 Occurrences starti ng 10/16/2021 until 11/15/2022 CYSTOSCOPY WHI CYSTOSCOPY WHI Procedures Routine Gross hematuria 1 Occurrences starting 10/16/2021 [facility] Work Phone: Comment on above: 1 Occurrences starti ng 10/16/2021 CYTOLOGY NON-CHIEF INVESTIGATOR CYTOLOGY NON-GY N Lab Routine Gross hematuria Ordered: 10/16/2021 [facility] Work Phone: Comment on above: Ordered: 10/16/2021 CYTOLOGY NON-CHIEF INVESTIGATOR CYTOLOGY NON-GY N Lab Routine Gross hematuria Ordered: 11/03/2021 [facility] Work Phone: Comment on above: Ordered: 11/03/2021 Ferritin [Mass/volum e] in Serum or Plasma [facility] Iron and Iron bindin g capacity panel - Serum or Plasma [facility] Lipid 1996 panel - S manohar or Plasma [facility] Microscopic observat ion [Identifier] in Unspecified specimen by Gram stain [facility] Patient Education [facility] Work Phone: Patient referral [facility] Work Phone: Protein measurement [facility] Protein measurement [facility] Thyroid stimulating hormone measurement [facility] Urinalysis complete panel - Urine URINALYSIS, WITH MICROSCOPIC Lab Routine Gross hematuria Ordered: 09/20/2021 [facility] Work Phone: Comment on above: Ordered: 09/20/2021 Urinalysis complete panel - Urine URINALYSIS, WITH MICROSCOPIC Lab Routine Acute cystitis without hematuria 04/18/2022 9:27 AM EDT [facility] Work Phone: Urine microalbumin/creatinine ratio measurement [facility] Vitamin D, 25-hydrox y measurement [facility] Immunizations Immunization Date Immunization Notes Care Provider Denisse rosas 03-20-2024 influenza, high dose seasonal, preservative-free Dr. Melanie Levy MD Work Phone: [facility] 03-20-2024 influenza virus vaccine, unspecified formulation Nikole Wesly ELECTRONIC TECHNICIAN Work Phone: [facility] 08-15-2023 tetanus toxoid, redu dena diphtheria toxoid, and acellular pertussis vaccine, adsorbed Dr. Melanie Levy MD Work Phone: [facility] 05-16-2023 influenza, injectabl e, quadrivalent, preservative free Dr. Melanie Levy MD Work Phone: [facility] 05-16-2023 Pneumococcal Vaccine PCV20 (Prevnar 20) Dr. Melanie Levy MD Work Phone: [facility] 04-09-2023 influenza, injectabl e, quadrivalent, preservative free Dr. Melaine Levy Work Phone: [facility] 08-22-2022 tetanus toxoid, redu dena diphtheria toxoid, and acellular pertussis vaccine, adsorbed Dr. Melanie Levy MD Work Phone: [facility] 04-26-2022 influenza, injectabl e, quadrivalent, preservative free Dr. Melanie Levy MD Work Phone: [facility] 04-26-2022 influenza virus vaccine, unspecified formulation Yue Bingham APRN.CHEMICAL TEST ENGINEER Work Phone: [facility] 12-25-[address] Melanie Levy MD Work Phone: [facility] 10-18-2021 Pneumococcal Vaccine PCV20 (Prevnar 20) Dr. Melanie Levy MD Work Phone: [facility] 10-18-[address] Melanie Levy MD Work Phone: [facility] 06-15-2021 influenza, injectabl e, quadrivalent, preservative free Dr. Melanie Levy MD Work Phone: [facility] 04-15-2021 Covid (Pfizer) Dr. Fausto Levy MD Work Phone: [facility] 09-27-2020 Covid (Pfizer) Dr. Fausto Levy MD Work Phone: [facility] 09-06-2020 Covid (Pfizer) Dr. Fausto Levy MD Work Phone: [facility] 04-15-2020 influenza, injectabl e, quadrivalent, preservative free Dr. Javier Levy Work Phone: [facility] 04-15-2020 influenza, seasonal, injectable [facility] 04-15-2020 influenza, seasonal, injectable, preservative free Dr. Melanie Levy MD Work Phone: [facility] 04-13-2019 influenza, injectabl e, quadrivalent, preservative free Dr. Melanie Levy MD Work Phone: [facility] 04-13-2019 pneumococcal polysaccharide vaccine, [address] Melanie Levy MD Work Phone: [facility] 01-24-2018 pneumococcal polysaccharide vaccine, [address] Melanie Levy MD Work Phone: [facility] 03-20-2017 influenza, injectabl e, quadrivalent, preservative free Dr. Melanie Levy MD Work Phone: [facility] 04-20-2015 influenza, seasonal, injectable, preservative free Dr. Melanie Levy MD Work Phone: [facility] Payers Date Payer Category Payer Private Health Insurance [id number] 2024 Self-pay [id number] 2023 [facility] [id number] 2023 Medicare [id number] 2023 Unknown [id number] 2023 Medicare [id number] 2021 Unknown [employer] E PPO [id number] 2021-Present [phone] [address] [facility] [address] PPO [id number] 2020 Unknown AN[employer]M BLUE CARD PPO OOS [id number] 2020-Present [phone] [address] [place] [address] PPO [id number] .[id number] 2008 Unknown 1958 Unknown [id number] 2.16.840.1.808466.3.579.2 .1259 1958 Unknown [id number] 2.16.840.1.632265.3.579.2 .1259 1958 Unknown [id number] 2.16.840.1.153313.3.579.2 .1259 Unknown [id number] Unknown [id number] Unknown ANTHEM SECONDARY [id number] Unknown [id number] 2.16.840.1.774671.3.579.2 .462 Unknown [id number] 2.16.840.1.037913.3.579.2 .462 Unknown [id number] 2.16.840.1.135220.3.579.2 .462 Unknown [id number] 2.16.840.1.751243.3.579.2 .462 Unknown [id number] 2.16.840.1.607422.3.579.2 .462 Unknown [id number] 2.16.840.1.818550.3.579.2 .462 Unknown [id number] 2.16.840.1.768552.3.579.2 .462 Unknown [id number] 2.16.840.1.583407.3.579.2 .462 Unknown [id number] 2.16.840.1.309053.3.579.2 .462 Unknown [id number] 2.16.840.1.795808.3.579.2 .462 Unknown [id number] 2.16.840.1.945871.3.579.2 .462 Unknown [id number] 2.16.840.1.999860.3.579.2 .462 Unknown [id number] 2.16.840.1.703944.3.579.2 .462 Unknown [id number] 2.16.840.1.805304.3.579.2 .462 Unknown [id number] 2.16.840.1.136317.3.579.2 .462 Unknown [id number] 2.16.840.1.196653.3.579.2 .462 Unknown [id number] 2.16.840.1.534099.3.579.2 .462 Unknown [id number] 2.16.840.1.667729.3.579.2 .462 Unknown [id number] 2.16.840.1.616532.3.579.2 .462 Unknown [id number] 2.16.840.1.819547.3.579.2 .462 Unknown [id number] 2.16.840.1.704250.3.579.2 .462 Unknown [id number] 2.16.840.1.701234.3.579.2 .462 Unknown [id number] 2.16.840.1.870800.3.579.2 .462 Unknown [id number] 2.16.840.1.389207.3.579.2 .462 Unknown [id number] 2.16.840.1.302167.3.579.2 .462 Unknown [id number] 2.16.840.1.263942.3.579.2 .462 Unknown [id number] 2.16.840.1.900697.3.579.2 .462 Unknown [id number] 2.16.840.1.772642.3.579.2 .462 Unknown [id number] 2.16.840.1.717910.3.579.2 .462 Unknown [id number] 2.16.840.1.490024.3.579.2 .462 Social History Date Type Detail Facility Start: 11-15-2015 End: 10-15-2023 Tobacco smoking status NHIS Ex-smoker [facility] End: 09-29-2013 History of tobacco use Current smoker [facility] Start: 11-15-2015 End: 02-21-2024 Cigarettes smoked current (pack per day) - Reported 1 [facility] Start: 11-15-2015 End: 10-15-2023 Tobacco use and exposure Smokeless tobacco non-user [facility] Start: 09-20-2021 End: 04-01-2023 Alcohol intake Current non-drinker of alcohol (finding) [facility] Start: 1960 Sex Assigned At Not on file [facility] Start: 09-01-2021 End: 11-03-2021 Exposure to SARS-CoV-2 (event) Not sure [facility] Start: 06-29-2020 End: 10-11-2023 Tobacco smoking status NHIS Unknown if ever smoked [facility] Start: 04-14-2020 Rare [facility] Start: 04-14-2020 None [facility] Start: 04-14-2020 Spouse/ Signif icant Other [facility] Start: 04-28-2020 Non-smoker [facility] Start: 1960 Sex Assigned At Female W [facility] End: 09-29-2013 History of tobacco use Cigarette Smoker [facility] Start: 04-01-2023 End: 02-21-2024 Tobacco use panel [facility] National Score (1-100), lower number is lower risk 75 [facility] Start: 10-15-2023 End: 02-21-2024 Alcoholic beverage intake Lifetime non-drinker (finding) [facility] Start: 07-26-2024 Tobacco smoking status NHIS Never smoked tobacco (finding) [facility] Start: 09-24-2024 Sex Female (finding) [facility] NEGATED: Highlighted row Not [facility] Medical Equipment Procedure Code Equipment Code Equipment Origin al Text Equipment Identifier Dates Minimally invasive total replacement of hip joint by anterior approach SHORT THREAD FDA Start: 02-07-2020 Minimally invasive total replacement of hip joint by anterior approach SHORT THREAD FDA Start: 02-07-2020 Minimally invasive total replacement of hip joint by anterior approach SYNTHES - WASHERS FDA Start: 02-07-2020 Minimally invasive total replacement of hip joint by anterior approach SYNTHES - WASHERS FDA Start: 02-07-2020 Minimally invasive total replacement of hip joint by anterior approach SYNTHES - WASHERS FDA Start: 02-07-2020 Minimally invasive total replacement of hip joint by anterior approach SYNTHES- SHORT THREAD FDA Start: 02-07-2020 Minimally invasive total replacement of hip joint by anterior approach SHORT THREAD FDA Start: 02-07-2020 Minimally invasive total replacement of hip joint by anterior approach SHORT THREAD FDA Start: 02-07-2020 Minimally invasive total replacement of hip joint by anterior approach SYNTHES - WASHERS FDA Start: 02-07-2020 Minimally invasive total replacement of hip joint by anterior approach SYNTHES - WASHERS FDA Start: 02-07-2020 Minimally invasive total replacement of hip joint by anterior approach SYNTHES - WASHERS FDA Start: 02-07-2020 Minimally invasive total replacement of hip joint by anterior approach SYNTHES- SHORT THREAD FDA Start: 02-07-2020 Minimally invasive total replacement of hip joint by anterior approach SHORT THREAD FDA Start: 02-07-2020 Minimally invasive total replacement of hip joint by anterior approach SHORT THREAD FDA Start: 02-07-2020 Minimally invasive total replacement of hip joint by anterior approach SYNTHES - WASHERS FDA Start: 02-07-2020 Minimally invasive total replacement of hip joint by anterior approach SYNTHES - WASHERS FDA Start: 02-07-2020 Minimally invasive total replacement of hip joint by anterior approach SYNTHES - WASHERS FDA Start: 02-07-2020 Minimally invasive total replacement of hip joint by anterior approach SYNTHES- SHORT THREAD FDA Start: 02-07-2020 Minimally invasive total replacement of hip joint by anterior approach SHORT THREAD FDA Start: 02-07-2020 Minimally invasive total replacement of hip joint by anterior approach SHORT THREAD FDA Start: 02-07-2020 Minimally invasive total replacement of hip joint by anterior approach SYNTHES - WASHERS FDA Start: 02-07-2020 Minimally invasive total replacement of hip joint by anterior approach SYNTHES - WASHERS FDA Start: 02-07-2020 Minimally invasive total replacement of hip joint by anterior approach SYNTHES - WASHERS FDA Start: 02-07-2020 Minimally invasive total replacement of hip joint by anterior approach SYNTHES- SHORT THREAD FDA Start: 02-07-2020 Minimally invasive total replacement of hip joint by anterior approach SHORT THREAD FDA Start: 02-07-2020 Minimally invasive total replacement of hip joint by anterior approach SHORT THREAD FDA Start: 02-07-2020 Minimally invasive total replacement of hip joint by anterior approach SYNTHES - WASHERS FDA Start: 02-07-2020 Minimally invasive total replacement of hip joint by anterior approach SYNTHES - WASHERS FDA Start: 02-07-2020 Minimally invasive total replacement of hip joint by anterior approach SYNTHES - WASHERS FDA Start: 02-07-2020 Minimally invasive total replacement of hip joint by anterior approach SYNTHES- SHORT THREAD FDA Start: 02-07-2020 Minimally invasive total replacement of hip joint by anterior approach SHORT THREAD FDA Start: 02-07-2020 Minimally invasive total replacement of hip joint by anterior approach SHORT THREAD FDA Start: 02-07-2020 Minimally invasive total replacement of hip joint by anterior approach SYNTHES - WASHERS FDA Start: 02-07-2020 Minimally invasive total replacement of hip joint by anterior approach SYNTHES - WASHERS FDA Start: 02-07-2020 Minimally invasive total replacement of hip joint by anterior approach SYNTHES - WASHERS FDA Start: 02-07-2020 Minimally invasive total replacement of hip joint by anterior approach SYNTHES- SHORT THREAD FDA Start: 02-07-2020 Minimally invasive total replacement of hip joint by anterior approach SHORT THREAD FDA Start: 02-07-2020 Minimally invasive total replacement of hip joint by anterior approach SHORT THREAD FDA Start: 02-07-2020 Minimally invasive total replacement of hip joint by anterior approach SYNTHES - WASHERS FDA Start: 02-07-2020 Minimally invasive total replacement of hip joint by anterior approach SYNTHES - WASHERS FDA Start: 02-07-2020 Minimally invasive total replacement of hip joint by anterior approach SYNTHES - WASHERS FDA Start: 02-07-2020 Minimally invasive total replacement of hip joint by anterior approach SYNTHES- SHORT THREAD FDA Start: 02-07-2020 Minimally invasive total replacement of hip joint by anterior approach SHORT THREAD FDA Start: 02-07-2020 Minimally invasive total replacement of hip joint by anterior approach SHORT THREAD FDA Start: 02-07-2020 Minimally invasive total replacement of hip joint by anterior approach SYNTHES - WASHERS FDA Start: 02-07-2020 Minimally invasive total replacement of hip joint by anterior approach SYNTHES - WASHERS FDA Start: 02-07-2020 Minimally invasive total replacement of hip joint by anterior approach SYNTHES - WASHERS FDA Start: 02-07-2020 Minimally invasive total replacement of hip joint by anterior approach SYNTHES- SHORT THREAD FDA Start: 02-07-2020 Minimally invasive total replacement of hip joint by anterior approach SHORT THREAD FDA Start: 02-07-2020 Minimally invasive total replacement of hip joint by anterior approach SHORT THREAD FDA Start: 02-07-2020 Minimally invasive total replacement of hip joint by anterior approach SYNTHES - WASHERS FDA Start: 02-07-2020 Minimally invasive total replacement of hip joint by anterior approach SYNTHES - WASHERS FDA Start: 02-07-2020 Minimally invasive total replacement of hip joint by anterior approach SYNTHES - WASHERS FDA Start: 02-07-2020 Minimally invasive total replacement of hip joint by anterior approach SYNTHES- SHORT THREAD FDA Start: 02-07-2020 Minimally invasive total replacement of hip joint by anterior approach SHORT THREAD FDA Start: 02-07-2020 Minimally invasive total replacement of hip joint by anterior approach SHORT THREAD FDA Start: 02-07-2020 Minimally invasive total replacement of hip joint by anterior approach SYNTHES - WASHERS FDA Start: 02-07-2020 Minimally invasive total replacement of hip joint by anterior approach SYNTHES - WASHERS FDA Start: 02-07-2020 Minimally invasive total replacement of hip joint by anterior approach SYNTHES - WASHERS FDA Start: 02-07-2020 Minimally invasive total replacement of hip joint by anterior approach SYNTHES- SHORT THREAD FDA Start: 02-07-2020 Minimally invasive total replacement of hip joint by anterior approach SHORT THREAD FDA Start: 02-07-2020 Minimally invasive total replacement of hip joint by anterior approach SHORT THREAD FDA Start: 02-07-2020 Minimally invasive total replacement of hip joint by anterior approach SYNTHES - WASHERS FDA Start: 02-07-2020 Minimally invasive total replacement of hip joint by anterior approach SYNTHES - WASHERS FDA Start: 02-07-2020 Minimally invasive total replacement of hip joint by anterior approach SYNTHES - WASHERS FDA Start: 02-07-2020 Minimally invasive total replacement of hip joint by anterior approach SYNTHES- SHORT THREAD FDA Start: 02-07-2020 Minimally invasive total replacement of hip joint by anterior approach SHORT THREAD FDA Start: 02-07-2020 Minimally invasive total replacement of hip joint by anterior approach SHORT THREAD FDA Start: 02-07-2020 Minimally invasive total replacement of hip joint by anterior approach SYNTHES - WASHERS FDA Start: 02-07-2020 Minimally invasive total replacement of hip joint by anterior approach SYNTHES - WASHERS FDA Start: 02-07-2020 Minimally invasive total replacement of hip joint by anterior approach SYNTHES - WASHERS FDA Start: 02-07-2020 Minimally invasive total replacement of hip joint by anterior approach SYNTHES- SHORT THREAD FDA Start: 02-07-2020 Minimally invasive total replacement of hip joint by anterior approach SHORT THREAD FDA Start: 02-07-2020 Minimally invasive total replacement of hip joint by anterior approach SHORT THREAD FDA Start: 02-07-2020 Minimally invasive total replacement of hip joint by anterior approach SYNTHES - WASHERS FDA Start: 02-07-2020 Minimally invasive total replacement of hip joint by anterior approach SYNTHES - WASHERS FDA Start: 02-07-2020 Minimally invasive total replacement of hip joint by anterior approach SYNTHES - WASHERS FDA Start: 02-07-2020 Minimally invasive total replacement of hip joint by anterior approach SYNTHES- SHORT THREAD FDA Start: 02-07-2020 Minimally invasive total replacement of hip joint by anterior approach SHORT THREAD FDA Start: 02-07-2020 Minimally invasive total replacement of hip joint by anterior approach SHORT THREAD FDA Start: 02-07-2020 Minimally invasive total replacement of hip joint by anterior approach SYNTHES - WASHERS FDA Start: 02-07-2020 Minimally invasive total replacement of hip joint by anterior approach SYNTHES - WASHERS FDA Start: 02-07-2020 Minimally invasive total replacement of hip joint by anterior approach SYNTHES - WASHERS FDA Start: 02-07-2020 Minimally invasive total replacement of hip joint by anterior approach SYNTHES- SHORT THREAD FDA Start: 02-07-2020 Minimally invasive total replacement of hip joint by anterior approach SHORT THREAD FDA Start: 02-07-2020 Minimally invasive total replacement of hip joint by anterior approach SHORT THREAD FDA Start: 02-07-2020 Minimally invasive total replacement of hip joint by anterior approach SYNTHES - WASHERS FDA Start: 02-07-2020 Minimally invasive total replacement of hip joint by anterior approach SYNTHES - WASHERS FDA Start: 02-07-2020 Minimally invasive total replacement of hip joint by anterior approach SYNTHES - WASHERS FDA Start: 02-07-2020 Minimally invasive total replacement of hip joint by anterior approach SYNTHES- SHORT THREAD FDA Start: 02-07-2020 Minimally invasive total replacement of hip joint by anterior approach SHORT THREAD FDA Start: 02-07-2020 Minimally invasive total replacement of hip joint by anterior approach SHORT THREAD FDA Start: 02-07-2020 Minimally invasive total replacement of hip joint by anterior approach SYNTHES - WASHERS FDA Start: 02-07-2020 Minimally invasive total replacement of hip joint by anterior approach SYNTHES - WASHERS FDA Start: 02-07-2020 Minimally invasive total replacement of hip joint by anterior approach SYNTHES - WASHERS FDA Start: 02-07-2020 Minimally invasive total replacement of hip joint by anterior approach SYNTHES- SHORT THREAD FDA Start: 02-07-2020 Minimally invasive total replacement of hip joint by anterior approach SHORT THREAD FDA Start: 02-07-2020 Minimally invasive total replacement of hip joint by anterior approach SHORT THREAD FDA Start: 02-07-2020 Minimally invasive total replacement of hip joint by anterior approach SYNTHES - WASHERS FDA Start: 02-07-2020 Minimally invasive total replacement of hip joint by anterior approach SYNTHES - WASHERS FDA Start: 02-07-2020 Minimally invasive total replacement of hip joint by anterior approach SYNTHES - WASHERS FDA Start: 02-07-2020 Minimally invasive total replacement of hip joint by anterior approach SYNTHES- SHORT THREAD FDA Start: 02-07-2020 Minimally invasive total replacement of hip joint by anterior approach SHORT THREAD FDA Start: 02-07-2020 Minimally invasive total replacement of hip joint by anterior approach SHORT THREAD FDA Start: 02-07-2020 Minimally invasive total replacement of hip joint by anterior approach SYNTHES - WASHERS FDA Start: 02-07-2020 Minimally invasive total replacement of hip joint by anterior approach SYNTHES - WASHERS FDA Start: 02-07-2020 Minimally invasive total replacement of hip joint by anterior approach SYNTHES - WASHERS FDA Start: 02-07-2020 Minimally invasive total replacement of hip joint by anterior approach SYNTHES- SHORT THREAD FDA Start: 02-07-2020 Minimally invasive total replacement of hip joint by anterior approach SHORT THREAD FDA Start: 02-07-2020 Minimally invasive total replacement of hip joint by anterior approach SHORT THREAD FDA Start: 02-07-2020 Minimally invasive total replacement of hip joint by anterior approach SYNTHES - WASHERS FDA Start: 02-07-2020 Minimally invasive total replacement of hip joint by anterior approach SYNTHES - WASHERS FDA Start: 02-07-2020 Minimally invasive total replacement of hip joint by anterior approach SYNTHES - WASHERS FDA Start: 02-07-2020 Minimally invasive total replacement of hip joint by anterior approach SYNTHES- SHORT THREAD FDA Start: 02-07-2020 Minimally invasive total replacement of hip joint by anterior approach SHORT THREAD FDA Start: 02-07-2020 Minimally invasive total replacement of hip joint by anterior approach SHORT THREAD FDA Start: 02-07-2020 Minimally invasive total replacement of hip joint by anterior approach SYNTHES - WASHERS FDA Start: 02-07-2020 Minimally invasive total replacement of hip joint by anterior approach SYNTHES - WASHERS FDA Start: 02-07-2020 Minimally invasive total replacement of hip joint by anterior approach SYNTHES - WASHERS FDA Start: 02-07-2020 Minimally invasive total replacement of hip joint by anterior approach SYNTHES- SHORT THREAD FDA Start: 02-07-2020 Minimally invasive total replacement of hip joint by anterior approach SHORT THREAD FDA Start: 02-07-2020 Minimally invasive total replacement of hip joint by anterior approach SHORT THREAD FDA Start: 02-07-2020 Minimally invasive total replacement of hip joint by anterior approach SYNTHES - WASHERS FDA Start: 02-07-2020 Minimally invasive total replacement of hip joint by anterior approach SYNTHES - WASHERS FDA Start: 02-07-2020 Minimally invasive total replacement of hip joint by anterior approach SYNTHES - WASHERS FDA Start: 02-07-2020 Minimally invasive total replacement of hip joint by anterior approach SYNTHES- SHORT THREAD FDA Start: 02-07-2020 Minimally invasive total replacement of hip joint by anterior approach SHORT THREAD FDA Start: 02-07-2020 Minimally invasive total replacement of hip joint by anterior approach SHORT THREAD FDA Start: 02-07-2020 Minimally invasive total replacement of hip joint by anterior approach SYNTHES - WASHERS FDA Start: 02-07-2020 Minimally invasive total replacement of hip joint by anterior approach SYNTHES - WASHERS FDA Start: 02-07-2020 Minimally invasive total replacement of hip joint by anterior approach SYNTHES - WASHERS FDA Start: 02-07-2020 Minimally invasive total replacement of hip joint by anterior approach SYNTHES- SHORT THREAD FDA Start: 02-07-2020 Minimally invasive total replacement of hip joint by anterior approach SHORT THREAD FDA Start: 02-07-2020 Minimally invasive total replacement of hip joint by anterior approach SHORT THREAD FDA Start: 02-07-2020 Minimally invasive total replacement of hip joint by anterior approach SYNTHES - WASHERS FDA Start: 02-07-2020 Minimally invasive total replacement of hip joint by anterior approach SYNTHES - WASHERS FDA Start: 02-07-2020 Minimally invasive total replacement of hip joint by anterior approach SYNTHES - WASHERS FDA Start: 02-07-2020 Minimally invasive total replacement of hip joint by anterior approach SYNTHES- SHORT THREAD FDA Start: 02-07-2020 Minimally invasive total replacement of hip joint by anterior approach SHORT THREAD FDA Start: 02-07-2020 Minimally invasive total replacement of hip joint by anterior approach SHORT THREAD FDA Start: 02-07-2020 Minimally invasive total replacement of hip joint by anterior approach SYNTHES - WASHERS FDA Start: 02-07-2020 Minimally invasive total replacement of hip joint by anterior approach SYNTHES - WASHERS FDA Start: 02-07-2020 Minimally invasive total replacement of hip joint by anterior approach SYNTHES - WASHERS FDA Start: 02-07-2020 Minimally invasive total replacement of hip joint by anterior approach SYNTHES- SHORT THREAD FDA Start: 02-07-2020 Minimally invasive total replacement of hip joint by anterior approach SHORT THREAD FDA Start: 02-07-2020 Minimally invasive total replacement of hip joint by anterior approach SHORT THREAD FDA Start: 02-07-2020 Minimally invasive total replacement of hip joint by anterior approach SYNTHES - WASHERS FDA Start: 02-07-2020 Minimally invasive total replacement of hip joint by anterior approach SYNTHES - WASHERS FDA Start: 02-07-2020 Minimally invasive total replacement of hip joint by anterior approach SYNTHES - WASHERS FDA Start: 02-07-2020 Minimally invasive total replacement of hip joint by anterior approach SYNTHES- SHORT THREAD FDA Start: 02-07-2020 Minimally invasive total replacement of hip joint by anterior approach SHORT THREAD FDA Start: 02-07-2020 Minimally invasive total replacement of hip joint by anterior approach SHORT THREAD FDA Start: 02-07-2020 Minimally invasive total replacement of hip joint by anterior approach SYNTHES - WASHERS FDA Start: 02-07-2020 Minimally invasive total replacement of hip joint by anterior approach SYNTHES - WASHERS FDA Start: 02-07-2020 Minimally invasive total replacement of hip joint by anterior approach SYNTHES - WASHERS FDA Start: 02-07-2020 Minimally invasive total replacement of hip joint by anterior approach SYNTHES- SHORT THREAD FDA Start: 02-07-2020 Colonoscopy Ligation clip, metallic [id number] FDA Start: 07-28-2024 Sling [facility] Incon Bl - [id number] Start: 04-01-2023 Goals Date Patient Goal Desired Activity /State Functional Status Date Assessment Result Facility 07-29-2024 Functional status Ambulates [facility] Work Phone: 10-05-2023 Functional status Chair [facility] Work Phone: Mental Status Date Assessment Result Facility 07-29-2024 Cognitive function Voice/Name [facility] Work Phone: 10-05-2023 Cognitive function Voice/Name [facility] Work Phone: 09-17-2023 Cognitive function Comprehension Ability Unable to Comprehend [facility] Work Phone: 09-13-2023 Cognitive function Level Of Cons ciousness Awake;Alert;Appropriate;Follow s Commands [facility] Work Phone: Clinical Notes 11-15-2015 to 01-20-2025 Note Date & Type Note Facility 01-20-2025 Radiology Diagnostic study note [facility] Imaging Services [address] [place] [address] Ankle min 3 Views MR#: [id number] Acct: [id number] Name: REJI ECHOLS Rep #: [id number] : 1960 F 64 From: Jonna Iniguez MD PCP: Dr. Melanie Levy MD Status: REG CLI Study:Ankle min 3 Views Date of Exam: Exam# [id number] Ordering Dr: [facility] De [facility] PROCEDURE: ANKLE MIN 3 VIEWS 01/20/2025 REASON FOR EXAM: PAIN TECHNIQUE: ANKLE MIN 3 VIEWS COMPARISON: Left ankle radiographs 02/06/2020. FINDINGS: Bones: No acute fracture. No aggressive osseous lesions. Joints: Normal alignment. Mortise appears intact. No effusion. Soft tissues: Soft tissues are unremarkable. RAD/Ankle min 3 Views IMPRESSION: NEGATIVE ANKLE SERIES Reading Location: [id number] CC: Dr. 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 Melanie Levy MD Status: REG CLI Study:Foot min 3 Views Date of Exam: Exam# [id number] Ordering Dr: [facility] k[facility] De Jesus PROCEDURE: FOOT MIN 3 VIEWS 01/20/2025 REASON FOR EXAM: PAIN TECHNIQUE: FOOT MIN 3 VIEWS COMPARISON: None. FINDINGS: Bones: No acute fracture. No aggressive osseous lesions. Diffuse bone demineralization. Joints: Normal alignment. Mild degenerative changes. Soft tissues: Soft tissues are unremarkable. Other: No radiopaque foreign body. RAD/Foot min 3 Views IMPRESSION: DEGENERATIVE OSTEOARTHROSIS. NO ACUTE FINDINGS. Reading Location: [id number] CC: Dr. 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 [facility] 11-19-2024 Evaluation note Diagnosis Onset Date Resolution Anemia acute November 19, 2024 9:05am Enteritis acute November 19, 2024 9:05am [facility] Work Phone: 1(141) 756-954305-22-2025 Evaluation note* Diagnosis Onset Date Resolution Status Admit Date Anemia acute November 19, 2024 9:05am Enteritis acute November 19, 2024 9:05am Left ankle strain acute January 202024 10:57am Plantar fasciitis, left acute J mickey 2024 10:57am Strain of left foot acute January 20, 2025 10:57am [facility] Work Phone: 1(251) 398-888405-22-2025 Evaluation note* Diagnosis Onset Date Resolution Status Admit Date Anemia acute November 19, 2024 9:05am Enteritis resolved November 19, 2024 9:05am Plantar fasciitis, left acute J mickey 2024 10:57am Left ankle strain resolved January 202024 10:57am Strain of left foot resolved January 20, 2025 10:57am [facility] Work Phone: 1(779) 630-659005-22-2025 Evaluation note* Diagnosis Onset Date Resolution Status Admit Date Anemia acute November 19, 2024 9:05am Enteritis resolved November 19, 2024 9:05am Plantar fasciitis, left acute J mickey 2024 10:57am Left ankle strain resolved January 202024 10:57am Strain of left foot resolved January 20, 2025 10:57am Benign essential hypertension acute February 03, 2025 9:50am Heart murmur, systolic acute Au 2024 9:50am [facility] Work Phone: 1(317) 506-858205-22-2025 Evaluation note* Diagnosis Onset Date Resolution Status Admit Date Anemia acute November 19, 2024 9:05am Enteritis resolved November 19, 2024 9:05am Plantar fasciitis, left acute J mickey 2024 10:57am Left ankle strain resolved January 202024 10:57am Strain of left foot resolved January 20, 2025 10:57am Benign essential hypertension acute February 03, 2025 9:50am Heart murmur, systolic acute Au hilario 2024 9:50am Anemia acute February 23 025 8:54am Loose stools acute February 23, 2025 8:54am [facility] Work Phone: 1(821) 697-484405-22-2025 Evaluation note* Diagnosis Onset Date Resolution Status Admit Date Anemia acute November 19, 2024 9:05am Enteritis resolved November 19, 2024 9:05am Plantar fasciitis, left acute J mickey 2024 10:57am Left ankle strain resolved January 202024 10:57am Strain of left foot resolved January 20, 2025 10:57am Benign essential hypertension acute February 03, 2025 9:50am Heart murmur, systolic acute Au hilario 2024 9:50am Anemia acute February 23 025 8:54am Loose stools acute February 23, 2025 8:54am Benign essential hypertension acute February 24, 2025 9:06am Diabetes mellitus type 2 in nonobese acute February 24 9:06am Vitamin D deficiency acute Augu 2024 9:06am Mixed hyperlipidemia chronic Janu 2024 9:06am [facility] Work Phone: 1(147) 311-777005-22-2025 Evaluation note* Diagnosis Onset Date Resolution Status Admit Date Anemia acute November 19, 2024 9:05am Enteritis resolved November 19, 2024 9:05am Plantar fasciitis, left acute J mickey 2024 10:57am Left ankle strain resolved January 202024 10:57am Strain of left foot resolved January 20, 2025 10:57am Heart murmur, systolic acute Au hilario 2024 9:50am Benign essential hypertension chroni c February 03, 2025 9:50am Anemia acute February 23, 025 8:54am Loose stools acute February 23, 2025 8:54am Benign essential hypertension chroni c February 24, 2025 9:06am Chronic renal failure, stage 3a 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 dagmar February 24, 2025 9:06am Diabetes mellitus type 2 in nonobese chronic February 24 9:06am Mixed hyperlipidemia chronic 2024 9:06am Overweight chronic February 24, 025 9:06am Vitamin D deficiency chronic 2024 9:06am [facility] Work Phone: 1(400) 798-487302-12-2025 Evaluation note* Diagnosis Onset Date Resolution Status Admit Date Anemia acute August 12, 2024 8:55am Diabetes chronic September 07 3:45pm Hypertension chronic September 07, 2024 3:45pm Microalbuminuria chronic September 072024 3:45pm Mixed hyperlipidemia chronic Alexx h 2024 3:45pm Neuropathy chronic September 07 3:45pm Overweight chronic September 07 3:45pm Enteritis acute September 17 8:52am Anemia acute November 19, 2024 9:05am Enteritis acute November 19, 2024 9:05am [facility] Work Phone: 1(160) 378-402101-29-2025 [facility]01-27-2025 Evaluation note* Diagnosis Onset Date Resolution Status Admit Date Acute anemia resolved July 9:59am Melena resolved July 27, 2024 9:59am Syncope resolved July 27, 2024 9:59am Anemia acute August 12, 2024 8:55am Diabetes chronic September 07 3:45pm Hypertension chronic September 07, 2024 3:45pm Microalbuminuria chronic September 072024 3:45pm Mixed hyperlipidemia chronic Alexx h 2024 3:45pm Neuropathy chronic September 07 3:45pm Overweight chronic September 07 3:45pm Enteritis acute September 17 8:52am [facility] Work Phone: 1(859) 974-926501-27-2025 Evaluation note* Diagnosis Onset Date Resolution Status Admit Date Acute anemia resolved July 9:59am Melena resolved July 27, 2024 9:59am Syncope resolved July 27, 2024 9:59am Anemia acute August 12, 2024 8:55am Diabetes chronic September 07 3:45pm Hypertension chronic March 10th, 2025 3:45pm Microalbuminuria chronic September 072024 3:45pm Mixed hyperlipidemia chronic Alexx h 2024 3:45pm Neuropathy chronic September 07 3:45pm Overweight chronic September 07 3:45pm Enteritis acute September 17 8:52am Anemia acute November 19, 2024 9:05am Enteritis acute November 19, 2024 9:05am [facility] Work Phone: 1(338) 512-666612-06-2024 History of Present illness Narrative* Nikole Jarrell, ELECTRONIC TECHNICIAN - 06/05/2024 3:00 PM EST Images from the original note were not included. Chief Complaint Patient presents with Seizures Subjective HPI Reji Echols, 64 y.o., female presents to follow-up on seizures s/p PRES attributed to HTN (SBP > 250) and DM (BG > 350) in August 2023. Pt has not had a seizure since discharge. Currently on levetiracetam 250 mg in the morning and 500 mg at night and denies any adverse effects. Memory continues to be awful, but is stable. Both the pt and her deny any episodes of syncope, LOC, numbness or tingling, aura, vertigo, or any focal neurologic episodes. denies any night episodes. Pt does note new onset of vivid dreams, in which she speaks and this wakes her up. Dreams are not scary. She has changed her sleeping habits; she now sleeps in the dark without the TV on and feels shesleeps much better. Never remembered any dreams before. Wonders if this can be attributed to medications. Pt does note BUE tremors which worsen with physical exertion but are also present at rest, that continue to persist since her PRES diagnosis. She continues to be interested in coming off her anti-seizure meds. Had EEG in May. Current Outpatient Medications on File Prior to Visit Medication Sig Dispense Refill amLODIPine (Norvasc) 10 MG tablet Take 10 mg by mouth Daily buPROPion XL (Wellbutrin XL) 150 MG 24 hr tablet Take 150 mg by mouth Daily cholecalciferol (Vitamin D-3) 50 MCG (1999 UT) capsule Take 50 mcg by mouth Daily FLUoxetine (PROzac) 20 MG capsule Take 20 mg by mouth Daily gabapentin (Neurontin) 100 MG capsule TAKE 1 CAPSULE BY MOUTH EVERY DAY AT BEDTIME insulin lispro (HumaLOG) 100 UNIT/ML patient supplied pump Inject under the skin 3 times a day Lantus SoloStar 100 UNIT/ML pen Inject 15 Units under the skin at bedtime levETIRAcetam (Keppra) 500 MG tablet Take one half of tablet in the morning and one full tablet at night 60 tablet 1 lisinopril-hydroCHLOROthiazide 20-12.5 MG tablet TAKE 2 TABLETS BY MOUTH ONCE DAILY metFORMIN (Glucophage) 500 MG tablet Take 500 mg by mouth in the morning and 500 mg before bedtime. omega-3 acid ethyl esters (Lovaza) 1 g capsule Take 1 g by mouth Daily omeprazole (PriLOSEC) [address] capsule TAKE 1 CAPSULE BY MOUTH ONCE DAILY FOR GERD atorvastatin (Lipitor) 20 MG tablet Take 20 mg by mouth Daily (Patient not taking: Reported on 06/05/2024) No current facility-administered medications on file prior to visit. Past Medical History: Diagnosis Date Depression ([facility]) Diabetes mellitus ([facility] High cholesterol ([facility] Hypertension ([facility]) Neck pain Peripheral neuropathy Seizures ([facility]) History reviewed. No pertinent surgical history. Family History Problem Relation Name Age of Onset Hypertension Mother Diabetes Father Hypertension Father Social History Tobacco Use Smoking status: Former Current packs/day: 0.00 Types: Cigarettes Quit date: 09/29/2013 Years since quittin.6 Smokeless tobacco: Never Substance Use Topics Alcohol use: Never Review of Systems General: Patient denies fever, chills, fatigue, weight loss or gain, change in appetite, or sleep disturbance. Allergy/Immunology: Patient denies frequent infections Ophthalmologic: Patient denies blurry vision, double vision, flashes of light in the visual mills, or visual fieldcuts ENT: Patient denies changes in hearing, tinnitus, feelings of vertigo Endocrine: Patient denies polyuria, changes in hair, skin, or nails Respiratory: Patient denies SOB, cough, sputum production, wheezing Cardiovascular: Patient denies chest pain, VELAZQUEZ, palpitations, swelling in hands/feet, syncope Gastrointestinal: Patient denies abdominal pain, changes in bowel habits, dyspepsia, nausea Hematology: Patient denies easy bruising/bleeding, clots or clotting disorders Genitourinary: Patient denies dysuria, incontinence Musculoskeletal: Patient denies leg cramps, swollen/erythematous joints Skin: Patient denies rashes, hives, photosensitivity Neurologic: Patient denies transient loss of vision, balance difficulty, gait changes, loss of strength, numbness/tingling, headache, h/o stroke, family h/o neurodegenerative disease Psychiatric: Patient denies feelings of anxiety/depression, hallucinations, delusions, increased stressors, suicidal or homicidal ideation, difficulty with or h/o substance abuse Also see HPI for elements of ROS documented therein and for details of positive findings, which shall supersede the foregoing. Allergies: Cyclobenzaprine and Oxycodone Objective Vitals: 06/05/24 1453 BP: 110/76 Pulse: 81 SpO2: 97% Body mass index is 24.09 kg/m . weight: 136 lb Physical Exam General Exam: Alert, oriented, pleasant, well-appearing, well-nourished, in no acute distress Head: Skull is normocephalic, atraumatic, hair of average texture and distribution Eyes: Eyes with symmetrical alignment, no ptosis, sclera white and clear, conjunctiva pink, PERRLA, EOMI and smooth Ears: Hearing acuity intact to finger rub Nose: Nares patent, septum midline, mucosa pink, no lesions noted Oral Cavity: Oral mucosa pink and moist, dentition intact Neck: Trachea midline, no thyromegaly, no carotid bruit/thrill, supple with full ROM Skin: Warm and dry Heart: Heart rate regular with regular rhythm, crisp S1 and S2, No S3, S4, murmurs, rubs, or splits Lungs: Regular, unlabored, symmetrical chest expansion, lungs clear to auscultation bilaterally with good air movement, no wheezes, rales, rhonchi Musculoskeletal & Spine: Full ROM; appropriate muscle tone and bulk in all muscle groups, 5/5 strength in bilateral upper and lower extremities, no rigidity noted Neurologic: Alert and oriented x 4, recent and remote memory intact, detailed cognitive testing deferred, cranial nerves II - XII grossly intact, no pronator drift noted, no tremor noted, gait is symmetric with stable base and expected stride, speed, and natural arm swing without shuffle, rapid alternating movements and [id number] intact, sensation intact in all extremities Psych: Appropriately groomed and dressed, makes and maintains eye contact, speech clear, fluent, and organized, thought processes coherent, insight and judgement appropriate I have reviewed the following data: review of electroencephalogram/EEG results Normal routine EEG without epileptiform discharge, seizure, or slowing. Plan 1. Partial symptomatic epilepsy with complex partial seizures, not intractable, without status epilepticus (CMS/HCC) - continue wean of medication, discussed signs and symptoms to watch for with pt and - levETIRAcetam (Keppra) 500 MG tablet; Take one half of tablet in the morning and one full tablet at night Dispense: 135 tablet; Refill: 1 Pt has been fully educated on their diagnosis, treatment options, follow up plan, and return instructions documented in this [facility]10-28-2024 Telephone encounter Note* Telephone Encounter - Henri Vargas - 04/27/2024 7:55 AM EDT 72 hr EEG order faxed to [facility] central scheduling at : [phone] [id number] Miscellaneous Notes* Telephone Encounter - Henri Vargas - 04/27/2024 7:55 AM EDT 72 hr EEG order faxed to [facility] central scheduling at : [phone] * Telephone Encounter - Henri Vargas - 04/24/2024 2:[address] new EEG order to be sent to [facility] documented in this [facility]10-25-2024 Telephone encounter Note* Telephone Encounter - Henri Vargas - 04/24/2024 2:[address] new EEG order to be sent to [facility] [id number] History of Present illness Narrative* Nikole Bart Jarrell, ELECTRONIC TECHNICIAN - 04/24/2024 2:00 PM EDT Images from the original note were not included. Chief Complaint Patient presents with Seizures Subjective HPI Reji Echols, 64 y.o., female presents to follow-up on seizures s/p PRES attributed to HTN (SBP > 250) and DM (BG > 350) in August 2023. Pt has not had a seizure since discharge. Currently on levetiracetam 500 mg PO BID and denies any adverse effects. Continues to keep a close eye on her health. Feels her cognitive status is stable. Both the pt and her deny any episodes of syncope, LOC, numbness or tingling, aura, vertigo, or any focal neurologic episodes. denies any night episodes. Pt does note BUE tremors which worsen with physical exertion but are also present at rest,that continue to persist since her PRES diagnosis. She continues to be interested in coming off heranti-seizure meds. Current Outpatient Medications on File Prior to Visit Medication Sig Dispense Refill amLODIPine (Norvasc) 10 MG tablet Take 10 mg by mouth Daily atorvastatin (Lipitor) 20 MG tablet Take 20 mg by mouth Daily buPROPion XL (Wellbutrin XL) 150 MG 24 hr tablet Take 150 mg by mouth Daily cholecalciferol (Vitamin D-3) 50 MCG (1999 UT) capsule Take 50 mcg by mouth Daily FLUoxetine (PROzac) 20 MG capsule Take 20 mg by mouth Daily gabapentin (Neurontin) 100 MG capsule TAKE 1 CAPSULE BY MOUTH EVERY DAY AT BEDTIME insulin lispro (HumaLOG) 100 UNIT/ML patient supplied pump Inject under the skin 3 times a day Lantus SoloStar 100 UNIT/ML pen Inject 15 Units under the skin at bedtime levETIRAcetam (Keppra) 500 MG tablet Take 1 tablet (500 mg) by mouth in the morning and 1 tablet (500 mg) before bedtime. 60 tablet 2 lisinopril-hydroCHLOROthiazide 20-12.5 MG tablet TAKE 2 TABLETS BY MOUTH ONCE DAILY metFORMIN (Glucophage) 500 MG tablet Take 500 mg by mouth in the morning and 500 mg before bedtime. omega-3 acid ethyl esters (Lovaza) 1 g capsule Take 1 g by mouth Daily omeprazole (PriLOSEC) [address] capsule TAKE 1 CAPSULE BY MOUTH ONCE DAILY FOR GERD [DISCONTINUED] simvastatin (Zocor) 40 MG tablet Take 40 mg by mouth Daily (Patient not taking: Reported on 04/24/2024) No current facility-administered medications on file prior to visit. Past Medical History: Diagnosis Date Depression (CMS/HCC) Diabetes mellitus (CMS/HCC) High cholesterol (CMS/HCC) Hypertension (CMS/HCC) Neck pain Peripheral neuropathy Seizures (CMS/HCC) History reviewed. No pertinent surgical history. Family History Problem Relation Name Age of Onset Hypertension Mother Diabetes Father Hypertension Father Social History Tobacco Use Smoking status: Former Current packs/day: 0.00 Types: Cigarettes Quit date: 09/29/2013 Years since quittin.5 Smokeless tobacco: Never Substance Use Topics Alcohol use: Never Review of Systems General: Patient denies fever, chills, fatigue, weight loss or gain, change in appetite, or sleep disturbance. Allergy/Immunology: Patient denies frequent infections Ophthalmologic: Patient denies blurry vision, double vision, flashes of light in the visual mills, or visual fieldcuts ENT: Patient denies changes in hearing, tinnitus, feelings of vertigo Endocrine: Patient denies polyuria, polydipsia, changes in hair, skin, or nails Respiratory: Patient denies SOB, cough, sputum production, wheezing Cardiovascular: Patient denies chest pain, VELAZQUEZ, palpitations, claudication, swelling in hands/feet, orthopnea, syncope Gastrointestinal: Patient denies abdominal pain, changes in bowel habits, dyspepsia, nausea, emesis Hematology: Patient denies easy bruising/bleeding, clots or clotting disorders Genitourinary: Patient denies dysuria, incontinence Musculoskeletal: Patient denies leg cramps, swollen/erythematous joints Skin: Patient denies rashes, hives, photosensitivity Neurologic: Patient denies transient loss of vision, balance difficulty, gait changes, loss of strength, numbness/tingling, tremor, headache, h/o stroke, family h/o neurodegenerative disease Psychiatric: Patient denies feelings of anxiety/depression, hallucinations, delusions, increased stressors, suicidal or homicidal ideation, difficulty with or h/o substance abuse Also see HPI for elements of ROS documented therein and for details of positive findings, which shall supersede the foregoing. Allergies: Cyclobenzaprine and Oxycodone Objective Vitals: 04/24/24 1405 BP: 122/74 Pulse: 80 SpO2: 95% Body mass index is 25.24 kg/m . weight: 142 lb 8 oz Physical Exam General Exam: Alert, oriented, pleasant, well-appearing, well-nourished, in no acute distress Head: Skull is normocephalic, atraumatic, hair of average texture and distribution Eyes: Eyes with symmetrical alignment, no ptosis, sclera white and clear, conjunctiva pink, PERRLA, EOMI and smooth Ears: Hearing acuity intact to finger rub Nose: Nares patent, septum midline, mucosa pink, no lesions noted Oral Cavity: Oral mucosa pink and moist, dentition intact Neck: Trachea midline, supple with full ROM Skin: Warm and dry Musculoskeletal & Spine: Full ROM; appropriate muscle tone and bulk in all muscle groups, 5/5 strength in bilateral upper and lower extremities, no rigidity noted Peripheral vascular: Extremities without edema, cyanosis, rubor, ulceration, varicosities, or stasis changes, capillary refill < 3 sec Neurologic: Alert and oriented x 4, recent and remote memory intact, detailed cognitive testing deferred, cranial nerves II - XII grossly intact, no pronator drift noted, mild BUE tremor noted, gait is symmetricwith stable base and expected stride, speed, and natural arm swing without shuffle, rapid alternating movements and [id number] intact Psych: Appropriately groomed and dressed, makes and maintains eye contact, speech clear, fluent, and organized, thought processes coherent, insight and judgement appropriate Plan 1. Partial symptomatic epilepsy with complex partial seizures, not intractable, without status epilepticus (CMS/HCC) (Primary) - EEG awake or drowsy; Future, not to be done for 2 weeks - levETIRAcetam (Keppra) 500 MG tablet; Take one half of tablet in the morning and one full tablet at night Dispense: 60 tablet; Refill: 1 - follow - up in 6 weeks Pt has been fully educated on their diagnosis, treatment options, follow up plan, and return instructions documented in this encounterPike County Memorial [id number] History of Present illness Narrative* Nikole Jarrell NP - 02/21/2024 2:30 PM EDT Images from the original note were not included. Chief Complaint Patient presents with eeg results Seizures Subjective HPI Reji Echols, 63 y.o., female presents to follow-up on seizures s/p PRES in August 2023 and her 72 hours EEG results. Pt was initially found down by her and had a seizure at this time. MRI found PRES which was attributed to HTN (>250) and poor glucose control (>350). Pt has not had a seizure since discharge. She remains on levetiracetam 750 mg PO BID and denies any adverse effects. She overall feels her health is improving, just feels fatigued. Speech therapy has released her from cognitive therapy and states she is back to baseline. Both the pt and her deny any episodes of syncope, LOC, numbness or tingling, aura, vertigo, or any focal neurologic episodes. denies any night episodes. Pt does note BUE tremors which worsen with physical exertion, however they have improved since hospital discharge. Current Outpatient Medications on File Prior to Visit Medication Sig Dispense Refill buPROPion XL (Wellbutrin XL) 150 MG 24 hr tablet Take 150 mg by mouth Daily cholecalciferol (Vitamin D-3) 50 MCG (1999) capsule Take 50 mcg by mouth Daily FLUoxetine (PROzac) 20 MG capsule Take 20 mg by mouth Daily gabapentin (Neurontin) 100 MG capsule TAKE 1 CAPSULE BY MOUTH EVERY DAY AT BEDTIME insulin lispro (HumaLOG) 100 UNIT/ML patient supplied pump Inject under the skin 3 times a day Lantus SoloStar 100 UNIT/ML pen Inject 15 Units under the skin at bedtime lisinopril-hydroCHLOROthiazide 20-12.5 MG tablet TAKE 2 TABLETS BY MOUTH ONCE DAILY metFORMIN (Glucophage) 500 MG tablet Take 500 mg by mouth in the morning and 500 mg before bedtime. omega-3 acid ethyl esters (Lovaza) 1 g capsule Take 1 g by mouth Daily omeprazole (PriLOSEC) [address] capsule TAKE 1 CAPSULE BY MOUTH ONCE DAILY FOR GERD simvastatin (Zocor) 40 MG tablet Take 40 mg by mouth Daily [DISCONTINUED] atorvastatin (Lipitor) 20 MG tablet Take 20 mg by mouth Daily [DISCONTINUED] levETIRAcetam (Keppra) 750 MG tablet TAKE 1 TABLET BY MOUTH IN THE MORNING AND 1 TABLET BEFORE BEDTIME 60 tablet 0 [DISCONTINUED] lisinopril 40 MG tablet TAKE 1 TABLET BY MOUTH AT BEDTIME WITH SUPPER FOR BLOOD PRESSURE amLODIPine (Norvasc) 10 MG tablet Take 10 mg by mouth Daily No current facility-administered medications on file prior to visit. Past Medical History: Diagnosis Date Depression (CMS/HCC) Diabetes mellitus (CMS/HCC) High cholesterol (CMS/HCC) Hypertension (CMS/HCC) Neck pain Peripheral neuropathy Seizures (CMS/HCC) History reviewed. No pertinent surgical history. Family History Problem Relation Name Age of Onset Hypertension Mother Diabetes Father Hypertension Father Social History Tobacco Use Smoking status: Former Current packs/day: 0.00 Types: Cigarettes Quit date: 09/29/2013 Years since quittin.4 Smokeless tobacco: Never Substance Use Topics Alcohol use: Never Review of Systems General: Patient denies fever, chills, fatigue, weight loss or gain, change in appetite, or sleep disturbance. Ophthalmologic: Patient denies blurry vision, double vision, flashes of light in the visual mills, or visual fieldcuts ENT: Patient denies changes in hearing, tinnitus, feelings of vertigo Endocrine: Patient denies polyuria, polydipsia, changes in hair, skin, or nails Respiratory: Patient denies SOB, cough, sputum production, wheezing Cardiovascular: Patient denies chest pain, VELAZQUEZ, palpitations, claudication, swelling in hands/feet, orthopnea, syncope Gastrointestinal: Patient denies abdominal pain, changes in bowel habits, dyspepsia, nausea, emesis Genitourinary: Patient denies dysuria, incontinence Musculoskeletal: Patient denies leg cramps, swollen/erythematous joints Neurologic: Patient denies transient loss of vision, balance difficulty, gait changes, loss of strength, numbness/tingling, memory changes, headache, h/o stroke, family h/o neurodegenerative disease Psychiatric: Patient denies feelings of anxiety/depression, hallucinations, delusions, increased stressors, suicidal or homicidal ideation, difficulty with or h/o substance abuse Also see HPI for elements of ROS documented therein and for details of positive findings, which shall supersede the foregoing. Allergies: Cyclobenzaprine and Oxycodone Objective Vitals: 02/21/24 1425 BP: 104/62 Pulse: 74 SpO2: 96% Body mass index is 26.31 kg/m . weight: 148 lb 8 oz Physical Exam General Exam: Alert, oriented, pleasant, well-appearing, well-nourished, in no acute distress Head: Skull is normocephalic, atraumatic, hair of average texture and distribution Eyes: Eyes with symmetrical alignment, no ptosis, sclera white and clear, conjunctiva pink, PERRLA, EOMI and smooth Ears: Hearing acuity intact to finger rub Nose: Nares patent, septum midline, mucosa pink, no lesions noted Oral Cavity: Oral mucosa pink and moist, dentition intact Neck: Trachea midline, no thyromegaly, no carotid bruit/thrill, supple with full ROM Skin: Warm and dry Heart: Heart rate regular with regular rhythm, crisp S1 and S2, No S3, S4, murmurs, rubs, or splits Lungs: Regular, unlabored, symmetrical chest expansion, lungs clear to auscultation bilaterally with good air movement, no wheezes, rales, rhonchi Musculoskeletal & Spine: Full ROM; appropriate muscle tone and bulk in all muscle groups, 5/5 strength in bilateral upper and lower extremities, no rigidity noted Peripheral vascular: Extremities without edema, cyanosis, rubor, ulceration, varicosities, or stasis changes, capillary refill < 3 sec Neurologic: Alert and oriented x 4, recent and remote memory intact, detailed cognitive testing deferred, cranial nerves II - XII grossly intact, no pronator drift noted, mild BUE tremor noted, gait is symmetricwith stable base and expected stride, speed, and natural arm swing without shuffle, rapid alternating movements and sfmxji-ta-exrv intact Psych: Appropriately groomed and dressed, makes and maintains eye contact, speech clear, fluent, and organized, thought processes coherent, insight and judgement appropriate 72 hour EEG: normal 72 hour video assisted EEG, no lateralizing, or epileptiform changes are noted,normal sleep and wakefulness is recorded, no patient noted events. Plan 1. Partial symptomatic epilepsy with complex partial seizures, not intractable, without status epilepticus (CMS/HCC) - may drive in 2 weeks - reduce dose slowly - levETIRAcetam (Keppra) 500 MG tablet; Take 1 tablet (500 mg) by mouth in the morning and 1 tablet(500 mg) before bedtime. Dispense: 60 tablet; Refill: 2 - follow-up 3 months, call with any concerns or changes before this Pt has been fully educated on their diagnosis, treatment options, and follow up plan documented in this encounterPike County Memorial [id number] Evaluation note* Diagnosis Onset Date Resolution Status Acute anemia acute Chronic renal failure, stage 3a acute Debility acute Seizures acute Encephalopathy acute resolve d PRES (posterior reversible encephalopathy syndrome) resolved [facility] Work Phone: 1(926) 296-564304-08-2024 NoteHNO ID: [id number] Author: ?, ?, ? Service: ? Author Type: ? Type: Progress Notes Filed: 10/07/2023 15:51 Note Text: Per [facility] Eligibility report patient meets [facility] criteria: MV >= 72 hours ICU stay, delirium and ICU stay >=72 hours, but found through chart review was never under the care of or seen by [facility] pulmonary/critical care staff in the Neuro ICU during the 09/16- [place] admission. Not enrolled in the [facility] Program. [facility] Enrollment Status [facility] Call Attempt None Enrolled in [facility] Program? No - Does not meet [facility] CriteriaOhio[facility]04-[facility] History of Present illness Narrative* ANDREEA Garcia Marianne - 10/07/2023 3:51 PM EDT Per [facility] Eligibility report patient meets [facility] criteria: MV >= 72 hours ICU stay, delirium and ICU stay >=72 hours, but found through chart review was never under the care of or seen by [facility] pulmonary/critical care staff in the Neuro ICU during the 09/16- [place] admission. Not enrolled inthe [facility] Program. [facility] Enrollment Status [facility] Call Attempt None Enrolled in [facility] Program? No - Does not meet [facility] Criteria documented in this encounterDetwiler [facility]04-08-2024 NotePatient Outreach (PULMMN) REJI ECHOLS ([id number]) 1960 F Date Time Provider Department 10/07/23 ESTEBAN GARCIA During your visit today, we recorded the following information about you: ANDREEA Garcia Marianne 10/07/2023 3:51 PM Signed Per [facility] Eligibility report patient meets [facility] criteria: MV >= 72 hours ICU stay, delirium and ICU stay >=72 hours, but found through chart review was never under the care of or seen by [facility] pulmonary/critical care staff in the Neuro ICU during the 09/16- [place] admission. Not enrolled in the [facility] Program. [facility] Enrollment Status [facility] Call Attempt None Enrolled in [facility] Program? No - Does not meet [facility] Criteria Allergies As of Date: 10/07/2023 Noted Allergy Reaction FLEXERIL (CYCLOBENZAPRINE) 09/20/2021 1 - Mental Status Change Comments: Hallucinations OXYCODONE 09/22/2023 1 - Mental Status Change Comments: hallucinations Date Reviewed: 09/22/2023 Reviewed by: [place], RN - Fully Assessed Prescriptions as of 10/07/2023 - amLODIPine (NORVASC) 10 mg tablet 1 tablet by ORAL/FEEDING TUBE route once daily. - carvedilol (COREG) 12.5 mg tablet 1 tablet by ORAL/FEEDING TUBE route two times a day with meals. - FLUoxetine (PROZAC) 20 mg capsule 1 capsule by ORAL/FEEDING TUBE route once daily. - hydrALAZINE (APRESOLINE) 50 mg tablet 1 tablet by ORAL/FEEDING TUBE route every 8 hours. - levETIRAcetam (KEPPRA) 500 mg/5 mL (5 mL) CUP 10 mL by ORAL/FEEDING TUBE route two times a day. - lisinopril (ZESTRIL) 40 mg tablet 1 tablet by ORAL/FEEDING TUBE route daily at bedtime. - LANTUS SOLOSTAR U-100 INSULIN 100 unit/mL (3 mL) Inject 15 Units subcutaneously daily at bedtime. - ferrous sulfate (IRON) 325 mg (65 mg iron) tablet Take 1 tablet by mouth every other day. - omega-3 acid ethyl esters (LOVAZA) 1 gram capsule Take by mouth. - simvastatin (ZOCOR) 40 mg tablet Take 40 mg by mouth once daily. - Cholecalciferol, Vitamin D3, 50 mcg (2,000 unit) cap Take by mouth once daily. - mometasone (ELOCON) 0.1 % cream Apply 1 application to affected area once daily. - triamcinolone acetonide (KENALOG) 0.1 % cream Apply 1 application to affected area twice daily. - metFORMIN (GLUCOPHAGE) 500 mg tablet Take 500 mg by mouth twice daily with meals. - Omeprazole 40 mg capsule Take 40 mg by mouth once daily. - INSULIN LISPRO (HUMALOG KWIKPEN SUBCUTANEOUS) Inject subcutaneously three times daily. 15 with every meal Problem List As Of Date 10/07/2023 Noted Resolved Cervical prolapse [N81.2] 11/15/2015 Vulval lesion [N90.89] 11/15/2015 02/03/2016 Cystocele, midline [N81.11] 11/15/2015 Diabetes (HCC) [E11.9] 01/03/2016 Fatty liver disease, nonalcoholic [K76.0] 01/03/2016 Hypertension [I10] 01/03/2016 GERD (gastroesophageal reflux disease) [K21.9] 01/03/2016 History of anxiety [Z86.59] 01/04/2016 ANDRIA III (vulvar intraepithelial neoplasia III) *01/16/2016 Primary vulvar squamous cell carcinoma (HCC) [C*02/03/2016 UTI (urinary tract infection) [N39.0] 10/12/2021 Anemia [D64.9] 03/25/2023 Heart murmur [R01.1] 03/25/2023 Pre-op exam [Z01.818] 03/25/2023 Ex-smoker [Z87.891] 03/25/2023 Seizure-like activity (HCC) [R56.9] 09/17/2023 09/25/2023 Hyperlipidemia [E78.5] 09/17/2023 Hypertensive emergency [I16.1] 09/17/2023 09/25/2023 On mechanically assisted ventilation (HCC) [Z99*09/17/2023 09/22/2023 Acute respiratory failure (HCC) [J96.00] 09/17/2023 09/25/2023 Type 2 diabetes mellitus with hyperglycemia (HC*09/17/2023 Delirium [R41.0] 09/22/2023 09/25/2023 PRES (posterior reversible encephalopathy syndr*09/23/2023 Encounter Status:Closed by ANDREEA GARCIA MARIANNE on 10/07/23[facility]04[facility] Evaluation note* Diagnosis Onset Date Resolution Status Acute anemia acute Chronic renal failure, stage 3a acute Debility acute Encephalopathy acute acute Heart murmur, systolic acute Irritable bowel syndrome acu te Seizures acute Tobacco dependence in remission acute Vitamin D deficiency acute Benign essential hypertension chronic Diabetes mellitus type 2 in nonobese chronic Mixed hyperlipidemia chronic Noncompliance with diabetes treatment chronic Osteoarthritis (arthritis du e to wear and tear of joints) chronic Polyneuropathy due to type 2 diabetes mellitus chronic PRES (posterior reversible encephalopathy syndrome) resolved [facility] Work Phone: 1(873) 599-629904-05-2024 Discharge summary Author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 10/01/23 06:35: POC Glucose 162 H 10/01/23 12:01: POC Glucose 124 H Physical Exam Const alert and oriented x3 Constitutional Narrative: Forgetful and sometimes does not finish a thought or a sentence until she goes on to talk about something else. General Appearance: cooperative Resp clear to auscultation bilaterally Cardio regular rate and regular rhythm GI normal to inspection, nondistended, normoactive bowel sounds, soft to palpation and non-tender Extremity no calf tenderness General Extremity: Negative for edema Skin General Skin Exam: Negative for no breakdown Rashes: no rashes Wounds: Negative for wounds noted Neuro Neuro Narrative: No seizures. Assessment & Plan Assessment/Plan (1) Debility: (2) Encephalopathy acute: (3) Seizures: (4) PRES (posterior reversible encephalopathy syndrome): (5) Diabetes mellitus type 2 in nonobese: (6) Acute anemia: (7) Diabetic neuropathy, painful: (8) Post traumatic stress disorder (PTSD): (9) Irritable bowel syndrome: QUALIFIERS: Irritable bowel syndrome type: with both diarrhea and constipation Qualified Code(s): K58.2 - Mixed irritable bowel syndrome (10) Noncompliance with diabetes treatment: (11) ADD (attention deficit disorder): QUALIFIERS: Hyperactivity presence: absent Qualified Code(s): F98.8 - Other specified behavioral and emotional disorders with onset usually occurring in childhood and adolescence PLAN: Plan 1. Continue therapy 2. Add Jardiance 10 mg to the current drug regimen and GLipizide 5 mg BID. DC Lispro at meals and continue Glargine once daily at HS. She has IBS and I do not think she will tolerate a higher dose of Glucophage. Continue to monitor the BS's AC and HS. Start a med dose SSI protocol. 3. Would like to keep medications to twice a day and no more to increase compliance with medication. ST is working with her to teach her how to appropriately set up a pill box. 4. Continue Wellbutrin for ADD 5. Recommend she follow up in diabetic clinic with the dieticians and that she keep a food diary. 6. Has to be seizure free for [address] can [address] Her family is making an appt for her to follow up with t neurologist in [place]. spent 43 minutes in the care of this patient today. 30 mins in education about goals for treatment of diabetes, hyperlipidemia and hypertension and also diet education. We reviewed her medications and what they are for. I answered all her questions. The additional 13 minutes was spent reviewing the chart, reviewing the lab and completing documentation. Charges/Coding Visit Charges Inpatient E&M: 51707 Subs Hosp L2 10/01/23 1700 <Electronically signed by Henri Kelly DO> Henri Kelly DO Cosign Signature (if applicable): CC: ~ Signed [facility] Work Phone: 1(253) 217-253604-01-2024 Progress note Author Henri Kelly [facility] September 30, 2023 5:35pm Note Date/Time September 30, 2023 10:3 9am [facility] Medical Records Department [address] [place] [address] Progress Note 09/30/23 1031 MR#: [id number] Acct: [id number] Name: REJI ECHOLS Rep #:[id number] : 1960 63 From: Henri Kelly DO PCP: Dr. Javier Levy MD Status: ADM IN Location: [place] [address] Subjective Subjective More was seen on team rounds today. Her Jeff was present in the room. All their questions were answered to their satisfaction. Afebrile VSS-blood pressure is well-controlled with no hypotension. Heart rate is withinnormal limits. Maintaining appropriate oxygen saturation on RA Oral intake - FOOD good FLUIDS adequate The blood sugar record was reviewed. Blood sugar at at bedtime was 177 and the fasting this morning was 159. Currently getting 6 units with meals and 15 of Glargine at HS. She is also on Metformin 500 mg BID. Discussed with nursing - Last night she c/o neck pain again. It was doing better with arthritis cream, muscle relaxer and K pad. Saturday night she denied any pain. Reviewed the THERAPY notes Medication list reviewed. Hemoglobin is 10.3 and stable. Sodium, potassium, serum bicarb are all normal. The BUN is 27 with a creatinine of 1.05, up from 0.86 on 09/26/2023. More is c/o pain in her feet (BL) that increases as the day goes on. She also has some numbness in her feet. She denies neck pain, CP, SOB, palpitations, N/V/abd pain, dysuria and calf pain. Mood is good and she is sleeping well at night. We were discussing what she had for breakfast. She had Cheerios, and Hong [place]er muffin and jelly. When I pointed out that Cheerios and an [place]er muffing are both carbs she was shocked. She really has no idea what carbohydrates are and how to control her carb intake. She is agreeable to talking with the supervisor feed house and I notified the supervisor feed house of the consult. Jeff believes that More was not taking her medications properly prior to PRES. She keeps all her pills in a 7 day pillbox but, she takes 1 pill from each box once a day and this is how she is taking her medications. Jeff tells us that More has always been impulsive and disorganized with a poor memory. We talked about ADD sx and he agrees that this may be part of the problem. When she was taking the Valium and Tustin I suspect she forgot to take her other medications. Jeff brought in all of her medications and the pill box......impossible to tell looking at the pill box if she was taking her medications properly or not. ST will work with her on properly setting up a pill box and will ask Jeff to supervise for the first couple weeks after DC. She was not taking Prozac prior to the recent event. Objective Data Objective Data Vital Signs: Vital Signs Temp Pulse Resp BP Pulse Ox O2 Del Method 97.2 F L 70 16 105/68 97 Room Air 09/30/23 07:09 09/30/23 07:09 09/30/23 07:09 09/30/23 07:09 09/30/23 07:09 09/30/23 07:09 Oxygen Delivery Method Room Air Weight: 151 lb 14.376 oz Body Mass Index (BMI) 26.9 Intake & Output: Intake and Output for Last 24 Hours 09/28/23 09/29/23 09/30/23 23:59 23:59 23:59 Intake Total 700 / 700 Output Total 350 / 350 Balance 350 / 350 Lab / Micro Data 09/30/23 05:35 09/30/23 05:35 Labs: Laboratory Results - last 24 hr 09/29/23 11:09: POC Glucose 228 H 09/29/23 16:05: POC Glucose 97 09/29/23 21:43: POC Glucose 177 H 09/30/23 05:35: Hgb 10.3 L, Hct 32.9 L, Sodium 138, Potassium 4.4, Chloride 107,Carbon Dioxide 26.0, Anion Gap 5, BUN 27 H, Creatinine 1.05 H, Estim Creat ClearCalc 48.59, Est GFR (MDRD) Af Amer 68, Est GFR (MDRD) Non-Af 56 L, BUN/Creatinine Ratio 25.7 H, Glucose 178 H, Calcium 9.3 09/30/23 05:41: POC Glucose 159 H Physical Exam Const alert, oriented x3 and no apparent distress General Appearance: cooperative HEENT Mouth: dry mucous membranes Resp normal respiratory effort and clear to auscultation bilaterally Resp Narrative: Not tachypneic and no conversational dyspnea. Cardio regular rate, regular rhythm and no gallops GI normal to inspection, nondistended, normoactive bowel sounds and non-tender GI Narrative: No guarding with palpation. Extremity no calf tenderness General Extremity: Negative for edema Skin Skin Narrative: No rashes, no skin breakdown. Psych Appearance: appropriate and well kempt Attitude: engaged Activity / Motor Behavior: appropriate eye contact Assessment & Plan Assessment/Plan (1) Debility: (2) Encephalopathy acute: (3) Seizures: (4) PRES (posterior reversible encephalopathy syndrome): (5) Diabetes mellitus type 2 in nonobese: (6) Acute anemia: (7) Diabetic neuropathy, painful: (8) Post traumatic stress disorder (PTSD): (9) Irritable bowel syndrome: QUALIFIERS: Irritable bowel syndrome type: with both diarrhea and constipation Qualified Code(s): K58.2 - Mixed irritable bowel syndrome (10) Noncompliance with diabetes treatment: (11) ADD (attention deficit disorder): QUALIFIERS: Hyperactivity presence: absent Qualified Code(s): F98.8 - Other specified behavioral and emotional disorders with onset usually occurring in childhood and adolescence PLAN: Plan 1. Continue therapy 2. Change the diet to a 1700-calorie, carb consistent, cardiac healthy diet 3. Dietitian consulted for education/teaching on controlling carbs 4. Adjust mealtime insulin to 8 units with breakfast, 4 units with lunch and 6 units with supper. 5. encouraged her to increase her fluid intake. 6. Add Neurontin 100 mg twice daily to the current drug regimen for suspected diabetic neuropathy. 7. DC the Prozac since it was recently started. Will try Wellbutrin for ADD. Continue to monitor the BP closely. Charges/Coding Visit Charges Inpatient E&M: 32482 Subs Hosp L2 09/30/23 5789 <Electronically signed by Henri Kelly DO> Henri Kelly DO Cosigner Signature (if applicable): CC: ~ Signed [facility] Work Phone: 1(318) 206-540804-01-2024 Progress note Author Henri Kelly [facility] September 30, 2023 12:10pm Note Date/Time September 29, 2023 12: 42pm [facility] Medical Records Department [address] [place] [address] Progress Note 09/29/23 1234 MR#: [id number] Acct: [id number] Name: REJI ECHOLS Rep #:[id number] : 1960 63 From: Henri Kelly DO PCP: Dr. Javier Levy MD Status: ADM IN Location: [place] [id number] Subjective Subjective Afebrile VSS-blood pressures are better with discontinuing the hydralazine. Blood pressure this morning is 130/53 and last night at bedtime it was 114/54. Heart rate is within normal limits. Maintaining appropriate oxygen saturation on RA Oral intake - FOOD good FLUIDS adequate Blood sugar record was reviewed. She was hypoglycemic again yesterday and the mealtime insulin was once again adjusted. Blood sugar at at bedtime was 145 andthe FBS today is 125. Prior to lunch the blood sugar is 228. Discussed with nursing -had several loose bowel movements yesterday but by 8 PM diarrhea had resolved. She has a history of alternating diarrhea and constipation. Reviewed the THERAPY notes Medication list reviewed. Antihypertensives include Coreg 12.5 mg twice daily, lisinopril 40 mg daily and as needed hydralazine. Has not required any as needed hydralazine over the past 48 hours. Diabetic medications include glargine 50 units SQ nightly, lispro 6 units 3 times daily, metformin 500 mg twice daily Neck pain has improved with the arthritis compounded cream, K-pad and low-dose Zanaflex. Denies pain in her arms. Denies cephalgia, lightheadedness, chest pain, shortness of breath, palpitations, nausea/vomiting/abdominal pain, dysuriaand calf tenderness. Objective Data Objective Data Vital Signs: Vital Signs Temp Pulse Resp BP Pulse Ox O2 Del Method 97.8 F 69 16 130/53 H 96 Room Air 09/29/23 07:28 09/29/23 07:28 09/29/23 07:28 09/29/23 07:28 09/29/23 07:28 09/29/23 07:28 Oxygen Delivery Method Room Air Weight: 151 lb 14.376 oz Body Mass Index (BMI) 26.9 Intake & Output: Intake and Output for Last 24 Hours 09/27/23 09/28/23 09/29/23 23:59 23:59 23:59 Intake Total 200 / 200 Output Total 350 / 350 Balance -150 / -150 Lab / Micro Data 09/30/23 05:35 09/30/23 05:35 Labs: Laboratory Results - last 24 hr 09/28/23 16:01: POC Glucose 79 09/28/23 17:50: POC Glucose 91 09/28/23 19:24: POC Glucose 126 H 09/28/23 21:36: POC Glucose 145 H 09/29/23 06:33: POC Glucose 125 H 09/29/23 11:09: POC Glucose 228 H Physical Exam Const alert, oriented x3 and no apparent distress Resp normal respiratory effort and clear to auscultation bilaterally Resp Narrative: Not tachypneic and no conversational dyspnea. Cardio regular rate, regular rhythm and no gallops GI normal to inspection, nondistended, normoactive bowel sounds and non-tender GI Narrative: No guarding with palpation. Extremity no calf tenderness Skin Skin Narrative: No rashes, no skin breakdown. Psych Appearance: appropriate and well kempt Attitude: engaged Activity / Motor Behavior: appropriate eye contact Assessment & Plan Assessment/Plan (1) Debility: (2) Encephalopathy acute: (3) Seizures: (4) PRES (posterior reversible encephalopathy syndrome): (5) Diabetes mellitus type 2 in nonobese: (6) Acute anemia: (7) Diabetic neuropathy, painful: PLAN: Plan 1. Continue therapy 2. Adjust insulin regimen 3. Check a H&H and BMP in the a.m. 4. Encouraged increased fluid intake Charges/Coding Visit Charges Inpatient E&M: 91420 Subs Hosp L1 09/30/23 1210 <Electronically signed by Henri Kelly DO> Henri Kelly DO Cosigner Signature (if applicable): CC: ~ Signed [facility] Work Phone: 1(861) 721-920403-31-2024 Progress note Author Henri Kelyl [facility] September 29, 2023 12:34pm Note Date/Time September 27, 2023 12: 39pm [facility] Medical Records Department [address] [place] [address] Progress Note 09/27/23 1237 MR#: [id number] Acct: [id number] Name: REJI ECHOLS Rep #:[id number] : 1960 63 From: Henri Arnett Estebanmarlys NEUMANN PCP: Dr. Javier Levy MD Status: ADM IN Location: [place] [address] Subjective Subjective Afebrile VSS-blood pressure is too low and will need to adjust antihypertensives. Maintaining appropriate oxygen saturation on RA Oral intake - FOOD good FLUIDS not being monitored. Denies lightheadedness. Blood sugar record was reviewed. She has had some low blood sugars and the insulin regimen has been adjusted. Discussed with nursing - BP is low. Reviewed the THERAPY notes Medication list reviewed. More is complaining of some lightheadedness and feeling tired and weak. She denies chest pain, shortness of breath, cough, palpitations, nausea/vomiting/abdominal pain, dysuria and calf tenderness. Objective Data Objective Data Vital Signs: Vital Signs Temp Pulse Resp BP Pulse Ox O2 Del Method 97.5 F L 65 16 107/64 97 Room Air 09/27/23 08:23 09/27/23 08:23 09/27/23 08:23 09/27/23 08:23 09/27/23 08:23 09/27/23 08:23 Oxygen Delivery Method Room Air Weight: 151 lb 14.376 oz Body Mass Index (BMI) 26.9 Intake & Output: Intake and Output for Last 24 Hours 09/25/23 09/26/23 09/27/23 23:59 23:59 23:59 Output Total 200 / 200 Balance -200 / -200 Lab / Micro Data 09/26/23 05:44 09/26/23 05:44 Labs: Laboratory Results - last 24 hr 09/26/23 17:08: POC Glucose 109 H 09/26/23 19:00: POC Glucose 100 09/26/23 21:51: POC Glucose 111 H 09/27/23 06:23: POC Glucose 154 H 09/27/23 10:56: POC Glucose 130 H Radiography Diagnostic Testing: Radiology Impression Cervical Spine X-Ray 09/26/23 13:20 IMPRESSION: Straightening of the normal cervical lordosis. Marked degree of disc space narrowing and spondylosis at the C6-C7 level. Minimal anterior listhesis of C4 on C5 and C5 on C6 most likely secondary to facet joint osteoarthritis. Electronically Signed: Ken Quiroz MD at 15:22 EDT , Physical Exam Const alert, oriented x3 and no apparent distress Constitutional Narrative: Making good eye contact, appropriate. Some trouble with word finding and loses her train of thought and I have to remind her what we were talking about. General Appearance: comfortable Resp normal respiratory effort, no use of accessory muscles and clear to auscultationbilaterally Resp Narrative: Not tachypneic and no conversational dyspnea. Cardio regular rate, regular rhythm and no gallops Cardio Narrative: She has a systolic ejection murmur at the second right intercostal space with radiation to the left ventricular outflow tract, lower left sternal border and apex. No ectopy. Carotids have brisk upstroke and good pulse volume bilaterally. She had an echocardiogram done in 2011 that showed mild MR and mild TR and was otherwise normal. GI normal to inspection, nondistended, normoactive bowel sounds and non-tender GI Narrative: No guarding with palpation. Extremity no clubbing, cyanosis or edema and no calf tenderness Skin Skin Narrative: No rashes, no skin breakdown. Psych Appearance: grossly normal, appropriate and well kempt Attitude: engaged Activity / Motor Behavior: appropriate eye contact Attention / Concentration: other attention and concentration are mildly impaired. Assessment & Plan Assessment/Plan (1) Debility: (2) Encephalopathy acute: (3) Seizures: (4) PRES (posterior reversible encephalopathy syndrome): (5) Diabetes mellitus type 2 in nonobese: PLAN: Uncontrolled. (6) Benign essential hypertension: (7) Heart murmur, systolic: PLAN: Has not had an ECHO to her knowledge. Denies hx of RF. (8) Acute anemia: (9) Post traumatic stress disorder (PTSD): (10) Irritable bowel syndrome: PLAN: Plan 1. Continue therapy 2. Increase the Prozac to 30 mg daily for anxiety depression. Having sx even on Prozac 20 mg. 3. Decrease Hydralazine to 25 mg TID 4. Make the stool softeners PRN 5. Continue to monitor Accu-Cheks before meals and at bedtime. Charges/Coding Visit Charges Inpatient E&M: 24289 Subs Hosp L1 09/29/23 1234 <Electronically signed by Henri Kelly DO> Henri Kelly DO Cosigner Signature (if applicable): CC: ~ Signed [facility] Work Phone: 1([phone]) 273-487403-29-2024 History and physical note Author Henri Kelly [facility] September 27, 2023 3:41pm Note Date/Time September 27, 2023 12: 37pm [facility] Medical Records Department [address] [place] [address] Post Admission Physician Tita 09/27/23 1237 MR#: [id number] Acct: [id number] Name: REJI ECHOLS Rep #:[id number] : 1960 63 From: Henri Kelly DO PCP: Dr. Javier Levy MD Status: ADM IN Location: [place] [address] Admission Information Primary Diagnosis:: Debility due to encephalopathy/seizures due to PRES Status Changes from Prescreening?: No changes Identified Actual Problem List:: Cognitve Impr/Memory Loss, Depression, Bowel, Constipation, Alteration in Sleep, Mobility Impaired, Self Care Deficit, BP, Hypertension, BP, Hypotension and Alteration-Leisure Activ. Potential Problem List:: DVT, Bleeding, Infection, UTI, Aspiration, Falls, Skin Integrity and Depression Risk of Complications DVT: LMWH and WANDA Hose Bleeding: Monitor Lab Values, Nursing to Teach Precautions for anti-coagulation therapy., Wound, if applicable, to be assessed every shift. and Stroke patients assessed for lethargy or change in status. Infection: Clinical Staff to Monitor for S/S of infection: and S/S of infection include fever, redness, warmth, etc. Urinary Tract Infection: Monitor for frequency, burning, discomfort, or incontinence. and Nursing will obtain urine sample for urinalysis and C&S when ordered. Aspiration: Clinical staff will monitor for coughing, drooling, congestion., Speech will evaluate swallowing and dsyphasia. and Nursing will monitor patient swallowing during meals. Falls: Patient will be evaluated for Fall Precautions and Patient will be placedon Fall Precautions as indicated per protocol. Skin Breakdown: Nursing will assess skin daily using assessment tool. and Nursing will place on Skin Breakdown Precautions as indicated. Pain: Clinical staff will assess patient's pain level per protocol., Medicationswill be given, if needed, and the pain level reassessed. and Other methods: Massage, distraction, decrease stimulus, etc. used PRN. Plan of Care Patient requires physician specializing in physical medicine and rehab oversightto provide close medical supervision of rehab issues including: Pain Management,Sleep Problems, Bowel and Bladder, Medical and co-morbidity Management, DVT prophylaxis, Rehabilitation Leadership and Coordination of treatment team Patient needs Physical Therapy: For a minimum of 1 hour and At least 5 out of 7 days Patient needs Physical Therapy to improve:: Mobility, Strengthening, Transfers, Stretching, ROM, Endurance, Stairs, Gait and Balance Patient needs Occupational Therapy: For a minimum of 1 hour and At least 5 out of 7 days Patient needs Occupational Therapy to improve ADL's incl.: Eating, Grooming, Bathing, Dressing, Toileting, Toilet transfers, Community Reintegration, Higher functioning activities, Household tasks, Adaptive Equipment, Splinting and Otheractivities as determined Patient requires speech therapy: For a minimum of 1 hour and At least 5 out of 7days Patient requires speech therapy for: Swallowing, Cognition, Language Skills and Compensatory Strategies Patient requires 24/ Rehabilitation Nursing for: Pain Issues, Identifying and preventing risk factors, Monitoring and reporting current medical conditions, Assisting with ambulation, transfer, and all ADL's, Teaching patients about disease process and medications, Family teaching, Providing safe environment, Bowel and Bladder Issues, Skin integrity and Medication Management Patient needs [employer]/ Case Management for: Discharge Planning, Arranging Home Equipment or Services and Family Interventions Patient needs Dietary and Nutrition Services for: Adequate Nutrition, Nutritional Supplements and Nutritional Education Goals Goals Patient will remain: free from falls Patient will perform eating at: MOD I level of assist. Patient will perform bed mobility at: MOD I level of assist. Patient will complete transfers from bed to chair at: MOD I level of assist. Patient will ambulate: - (500 feet without a device on various surfaces) Patient will complete upper body dressing at: MOD I level of assist. Patient will complete lower body dressing at: MOD I level of assist. (Distant supervision) Patient will complete toilet transfer at: - (Distant supervision) Patient will complete toileting at: - (Distant supervision) Patient will perform bathing at: - (Distant supervision) Patient will perform Tub/Shower transfer at: - (Supervision) Patient will complete grooming at: MOD I level of assist. Patient will complete home management skills at: MOD I level of assist. (with a WW) Patient will achieve: - (12 steps with 1 handrail at standby assist to allow access to her basement and 1 curb step.) Patient will have pain level of: of 3 or less Patient's skin will: remain intact Patient will receive: adequate nutrition. Discharge Planning Estimated Length of stay (days): 21 Anticipated D/C Destination: Home with Outpt Therapy Was Preadmission Assessment Accurate?: Yes 09/27/23 1565 <Electronically signed by Henri Kelly DO> Cosigner Signature (if applicable): CC: ~ Signed [facility] Work Phone: [phone]) 312-304803-29-2024 History and physical note Author Henri [facility] September 27, 2023 3:33pm Note Date/Time September 26, 2023 11: 39am [facility] Medical Records Department [address] [place] [address] History & Physical Exam 09/26/23 1132 MR#: [id number] Acct: [id number] Name: REJI ECHOLS Rep #:[id number] : 1960 63 From: Henri Kelly DO PCP: Dr. Javier Levy MD Status: ADM IN Location: [place] [address] HPI - General General Date of Admission: 09/25/23 Date of Service: 09/26/23 Chief Complaint: Debility due to PRES/seizures with intubation and mechanical ventilation. HPI Narrative REJI ECHOLS, is a 63 YO F with a PMH of hypertension, hyperlipidemia, type2 diabetes mellitus, anxiety and GERD who presented to [facility] ED for altered mentalstatus. A AK CT brain showed no acute pathology. She had status epilepticus upon arrival at the ED and was given Ativan and then loaded with Keppra. she wasintubated to protect her airway. Blood pressure at arrival to the ER was 260/110 and she was treated with IV labetalol. Blood glucose was greater than 350. The ED doctor was in contact with [facility] and the pt was transferredto [facility] with a diagnosis of status epilepticus possibly related to PRES. she hadno further seizures. BP was gradually brought under control at [facility] and the pt was extubated. She had an LP and infectious W/U was negative for an infectious etiology of AMS/seizures. The most likely dx for the AMS and seizures is PRES due to uncontrolled HTN. She was seen by PT/OT/ST and acute rehab was recommended at [place] [facility]. [facility] for 3 hours of therapy daily to restore function/independence at or near her level prior to recent hospitalization. She has BP cuff at home but, she does not use it. She is non-compliant with diet and her BS's have been uncontrolled for years with HGBA1C's frequently in excess of 10. I suspect she is non-compliant with meds also. I suspect that when she was taking Valium she was non-compliant with meds and that lead to PRES. All AM lab was personally reviewed. White blood cell count is normal. Hemoglobin is decreased to 10.5 with a decreased MCV at 80.5. RDW is normal so she may have thalassemia. Looking at lab over the past few years she has been microcytic since 2019. No iron studies since 2012. No hemoglobin electrophoresis in the EMR. Platelet count is within normal limits. Sodium is 139 with a potassium of 4.1. The BUN is elevated at 21 with a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 sweats or weight loss Eyes Eyes: Denies blurry vision, change in vision or diplopia ENT ENT ED: Denies ear pain or rhinorrhea Cardiovascular Cardiovascular: Denies chest pain, orthopnea, palpitations, paroxysmal nocturnaldyspnea or racing heartbeat Respiratory/Chest Respiratory/Chest: Denies cough, dyspnea, dyspnea on exertion, orthopnea or paroxysmal nocturnal dyspnea Gastrointestinal Gastrointestinal: Denies abdominal pain, melena, nausea or vomiting Genitourinary Genitourinary ED: Denies dysuria, hematuria or urinary frequency Musculoskeletal Musculoskeletal: Denies arthralgias, back pain or myalgias Integumentary Denies rash Neurologic Neurologic: Denies headache(s), paresthesias or weakness Psychiatric Psychiatric: Denies anxiety or depression Endocrine Endocrinology: Denies cold intolerance or heat intolerance Hematologic/Lymphatic Hematologic/Lymphatic: Reports systems reviewed and no addt'l complaints, exceptas documented EXAM Physical Exam Const Vital Signs: 09/13/23 20:07 09/13/23 20:12 09/13/23 20:31 Temperature 97.4 F L Temperature Source Temporal Pulse Rate 104 H 104 H Respiratory Rate 17 17 Respiratory Effort Normal Respiratory Pattern Normal Blood Pressure 170/84 H 170/84 H Blood Pressure Mean 112 112 Pulse Ox 97 97 Oxygen Delivery Method Room Air Room Air 09/13/23 22:12 Temperature Temperature Source Pulse Rate 89 Respiratory Rate 16 Respiratory Effort Respiratory Pattern Blood Pressure 176/98 H Blood Pressure Mean 124 Pulse Ox 94 Oxygen Delivery Method Room Air Positive well nourished and well developed General Appearance ED: well developed and NAD; Negative for cyanotic, diaphoretic or pallor HEENT Reports moist mucous membranes HEENT Narrative: Head atraumatic normocephalic. Patient has posterior reproducible neck pain. There is also significant pain trapezius region on the left. Eyes PERRL and EOMs intact bilaterally General Eye ED: Negative for pale conjunctiva or scleral icterus Neck no lymphadenopathy, supple and no JVD Chest Wall inspection of chest normal and palpation of chest normal Resp normal respiratory effort and clear to auscultation bilaterally Cardio regular rate, regular rhythm, S1 normal heart sound, S2 normal heart sound and no murmurs Extremity normal to inspection Extremity Narrative: , Median, radial and ulnar nerve function are intact upper extremity. Radial pulses 2+ and symmetric. General Extremety ED: Negative for edema or tenderness General Extremity: Negative for edema Neuro oriented x3, CN's II-XII intact bilaterally and no sensory deficits noted Neuro Narrative: DTR 2+ at the bicep, brachialis, patella and ankle. There is no clonus or Babinski sign noted. Sensorium / Orientation: alert Motor Exam: strength 5/5 throughout Psych mental status grossly normal Skin no rashes or lesions noted, no wounds and skin turgor normal General Skin Exam: elasticity normal; Negative for jaundice or pallor MDM MDM MDM Narrative Medical decision making narrative: Patient with muscular neck pain. Since there is been no recent dental procedure, systemic symptoms in my opinion this represents musculoskeletal with no neurovascular findings she was treated with IV morphine, ketorolac and diazepam. He was given Zofran for nausea prevention. Prior records were reviewed. There is been no imaging of the neck. History & Record Review Additional record(s) reviewed:: Prior ED visit (January 2020 patient was seen forneck pain. No imaging was obtained at that time.) and Prior labs Treatment and Re-Evaluation :: Patient was reassessed at 0004. She feels markedly better. Plan is to discharge with prescription for Valium, NSAID and opiate analgesic. hadquestions regarding remedication. His questions were answered. 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, Mixed hyperlipidemia, Type 2 diabetes mellitus treated withinsulin Instructions: ED Neck Sprain or Strain Prescriptions: New hydrocodone-acetaminophen [hydrocodone-acetaminophen] 5-325 mg tablet 1 tab PO Q6H PRN PRN (Reason: Pain) 3 Days Qty: 10 0RF naproxen 500 mg tablet 500 mg PO BID Qty: 10 0RF diazepam [Valium] 2 mg tablet 2 mg PO TID PRN (Reason: muscle spasm) Qty: 9 0RF No Action metoprolol succinate 50 mg tablet extended release 24 hr 50 mg PO DAILY 30 Days Qty: 30 omeprazole 40 mg capsule,delayed release(DR/EC) 40 mg PO DAILY omega-3 acid ethyl esters 1 gram capsule 2 cap PO DAILY lisinopril-hydrochlorothiazide 20-25 mg tablet 1 tab PO DAILY insulin lispro [Humalog KwikPen Insulin] 100 unit/mL insulin pen subcut Patient Comments: INJECT 15 UNITS SUBCUTANEOUSLY BEFORE MEALS rosuvastatin 20 MG tablet 20 mg PO DAILY cholecalciferol (vitamin D3) 2,000 UNIT capsule 2,000 unit PO DAILY insulin glargine 100 UNIT/ML solution 40 unit SQ QHS metformin 500 MG tablet extended release 24 hr 500 mg PO DAILY Primary Care Provider: Javier Levy Referrals: Javier Levy MD [Primary Care Provider] - 3-5 Days if not improving Disposition Disposition: Home, Self Care What to do if you have Problems For any increased pain, shortness of breath, bleeding, nausea or vomiting, chestpain, or any unexpected problems, contact your Primary Care Provider. Call [facility] ([phone]) or report to the closest Emergency Room. Call 911 if necessary. 09/14/23 0016 <Electronically signed by Richmond Phoenix MD> Cosigner Signature (if applicable): CC: Dr. Javier Levy MD ~ Signed [facility] Work Phone: [phone]) 723-542510-02-2023 [facility]10-02-2023 [facility]09-27-2023 [facility] 03-25-2023 [facility]12-01-2022 Miscellaneous Notes* Telephone Encounter - Kimmy Caal APRN.CHEMICAL TEST ENGINEER - 05/31/2022 9:29 AM EST Noted. Patient is currently taking Macrobid. Kimmy Caal APRN.CNP * Telephone Encounter - Chelsea Nails RN - 05/31/2022 9:16 AM EST [facility]- phoned to let provider know, the original urine culture lab showed no growth, but the result was an instrument error, and they had to re-plant it. The new result does show growth. Please review and advise patient. * Telephone Encounter - Deena Burleson MA - 05/30/2022 10:56 AM EST Attempted to kylie pt voicemail is full, unable to leave message. Will try again later. Deena Burleson MA * Telephone Encounter - Deena Burleson MA - 05/30/2022 10:51 AM EST ----- Message from Kimmy Caal APRN.CNP sent at 05/30/2022 9:03 AM EST ----- Urine culture did not show clear evidence of infection. She may continue to take antibiotic if it has been helpful. Recommend follow up with PCP to ensure hematuria has resolved. Kimmy Caal CNP [facility] History of Present illness Narrative* Kimmy Caal APRN.CNP - 05/28/2022 6:45 PM EST Subjective UTI Associated symptoms include frequency, hematuria and urgency. Pertinent negatives include no chills, no nausea, no vomiting and no flank pain. Reji Echols is a 62 year old female who presents withuti symptoms x 2 weeks. She has had [...] SUBCUTANEOUS) Inject subcutaneously three times daily. 16 [id number] lunch 22 dinner nitrofurantoin monohydrate and macrocrystal (MACROBID) 100 mg capsule Take 1 capsule by mouth twicedaily with meals for 7 days. mometasone (ELOCON) [...] suprapubic area. There is no right CVA tenderness,left CVA tenderness or guarding. Skin: General: Skin is warm and dry. Neurological: Mental Status: She is alert. ASSESSMENT/PLAN: 1. Urinary frequency - ICD9: 788.41, ICD10: R35.0 acute - UA positive for [place] esterase, hematuria, proteinuria, and nitrates - Send [...] illness Kimmy Caal APRN.CNP documented in this encounterDetw[facility]11-28-2022 Instructions* Patient Instructions* Kimmy Caal APRN.CNP - 05/28/2022 6:41 PM EST ASSESSMENT/PLAN: 1. Urinary frequency - ICD9: 788.41, ICD10: R35.0 acute - UA positive for wellington esterase, hematuria, proteinuria, and nitrates - Send [...] - Discussed expected course of illness Kimmy Mayersgwen-ONEIL Luevano.CHEMICAL TEST ENGINEER [facility] PATIENT INFO BLADDER INFECTION OVERVIEW Bladder infections are one of the most common infections, causing symptoms of burning with urination and needing to urinate frequently. A bladder infection is a type of urinary tract infection (UTI).Bladder infections are more common is women than men. Most women have an uncomplicated bladder infection that is easily treated with a short course of antibiotics. In men, bladder infections may alsoaffect the prostate gland, and a longer course [...] symptoms of a bladder infection, but can occurin people with a kidney infection (pyelonephritis). If [...] typical for bladder infection You have had "resistant" bladder infections before You have frequent bladder [...] treatment is usually given for at least 7days. Your symptoms should begin to resolve within [...] UTIs. A similar medication is available without aprescription (eg, Uristat). Both medications change the color of the urine (usually blue or orange)and can interfere with laboratory testing. You should not take these medications for more than 48 hours due to the risk of side effects. These medications do not treat the infection and must be takenalong with an antibiotic. Some providers recommend drinking [...] -- Some adults, especially women, develop bladder infectionsfrequently. In this case, it is important to [...] actually have an infection. documented in this encounterDetw[facility]11-28-2022 Miscellaneous Notes* Telephone Encounter - Savanna Truong RN - 05/28/2022 4:33 PM EST Spoke with patient. Gave information. She states that she will go this evening to submit. Savanna Truong RN * Telephone Encounter - Les Griffin APRN.CNP - 05/28/2022 11:32 AM EST To ensure appropriate treatment, she will need to submit a urine to the lab for culture. Once that is submitted, I can prescribe an antibiotic. Order placed. Les Griffin APRN.CNP * Telephone Encounter - Yue Vuong CMA - 05/28/2022 10:46 AM EST Pt called states she has a UTI - Burning, frequency, intermittency Pt states she can not come to office due to starting a new job- Pt would like to know if you will kylie in an ABX for her Please advise Yue Vuong CMA documented in this encounterCleveland [id number] Miscellaneous Notes* Telephone Encounter - Darien Ozuna Cma - 05/11/2022 3:30 PM EST Pt left a message on the clinical voicemail, asking for a return call. I tried to reach pt and was unable to leave a message as her voicemail was full. Not sure what pt needed. Will await a return call from pt. Darien Ozuna Cma documented in this encounterDetwiler [facility]10-19-2022 Instructions* Patient Instructions* Beverley Luna MD - 04/18/2022 9:32 AM EDT Schedule appointment with urology Follow up with Les Griffin NP in 3 months [facility] scheduling number [phone] documented in this encounterDetwiler Memorial Hospital10-19-2022 History of Present illness Narrative* Beverley Luna MD - 04/18/2022 8:45 AM EDT Female Pelvic Medicine & Reconstructive Surgery Follow-Up Reji Echols is a 62 year old female, who [...] - CT urogram scheduled 11/08/21 - CYTOLOGY NON-CHIEF INVESTIGATOR - CONSULT TO UROLOGY; Future 2. Bladder [...] Abnormal Vaginal Discharge: yes, white and thin CHIEF INVESTIGATOR HISTORY: Last pap: Date:09/11/21 NIL HPV neg; Last mammogram: Her last mammogram was 04/11/17 negative. She has no history of an abnormal mammogram LMP: No LMP recorded. Patient is postmenopausal.; Menopause post: Menstrual history: NA; Deliveries: C/Sec, I have confirmed and edited as necessary, the PFSH obtained by others. Beverley Luna MD Garment Sorter offered: Patient accepts, visit chaperoned by Bart Landry MS4. OBJECTIVE: Ht 5' 2" (1.58m) Wt 155 lb (70.3kg) BMI 28.34 [...] mod blood, mod leuk, +nitrite Impression: Reji Echols is a 62 year old female with stage 3 anterior predominant uterovaginal prolapse with cystocele and rectocele, poorly controlled DM, gross hematuria, bladder wall thickening, abnormal cystoscopy findings, acute cystitis. Plan: 1. Complete uterovaginal prolapse - Reviewed options of pessary refitting vs surgery - Pt is interested in surgical management. We discussed that her Hgb A1C must be <8 and she mustfollow see urology for evaluation prior to surgery. - Discussed that I am leaving [place] in May. Pt would prefer to see me at [facility] in the new year to revisit surgery. Scheduling number given and she will check with her insurance. - If [facility] is not covered, then she will plan for follow up with Les Griffin NP in 3 months to review A1C and refer to other [facility] urogyn surgeon. 2. Cystocele, midline - [...] Decision Making Level: 4 - Moderate Beverley Luna MD documented in this encounterDetwiler [facility] Hospital05-19-2022 Miscellaneous Notes* Telephone Encounter - Martha Lerner - 11/16/2021 2:58 PM EDT Patient has been contacted via: Phone To reschedule appointment with Provider: Arnaldo Mayo Date of appointment: 11/16/21 Reason: No Show Attempt: First Attempt Patient call back number given: [phone] Martha Lerner' documented in this encounterDetwiler Memorial Hospital05-13-2022 Miscellaneous Notes* Telephone Encounter - Krishna Restrepo Ma - 11/10/2021 2:25 PM EDT Patient informed. Krishna Restrepo Ma * Telephone Encounter - Beverley Luna MD - 11/10/2021 2:18 PM EDT Please inform pt her urine showed atypical urothelial cells. Keep upcoming appointment with Dr. Mayo as scheduled. Beverley Luna MD documented in this encounterDetwiler Memorial Hospital05-06-2022 Instructions* Patient Instructions* Beverley Luna MD - 11/03/2021 10:49 AM EDT Schedule [...] PHYSICIAN CONTACT INFORMATION Dr. Vela Dr. Womack ([place]) Dr. Carrasquillo Dr. Hernandez Dr. Epps Dr. Rene Dr. Luna Dr. Lizarraga Nettie Barton, AKBAR Griffin, CHEMICAL TEST ENGINEER Juana Holliday, CHEMICAL TEST ENGINEER Kristel Bansal, CHEMICAL TEST ENGINEER After 4:30 pm or on holidays or weekends, call: or [phone]. Ask the tag meter operator to page the CHIEF INVESTIGATOR completions engineer.' [facility] [place] Patients ONLY: After 4:30 PM or on holidays or weekends, call and you will be connected to the answering service/physician completions engineer. Please DO NOT use [employer] for procedure concerns. documented in this encounterDetwiler Memorial Hospital05-06-2022 History of Present illness Narrative* Beverley Luna MD - 11/03/2021 10:30 AM EDT 11/03/2021 Reji Echols presents today for a diagnostic cystoscopy. Indication: [...] of Care Visit completed when applicable. Beverley Luna MD PROCEDURE: The patient was taken to the procedure room, placed in lithotomy position and prepped in the usual fashion. Anesthesia: Intraurethral Lidocaine jelly 6 mL. Video-assisted cystourethroscopy was performed using a 70 degree cystoscope with sterile water infusion. Findings: Erythema and inflammation of the posterior bladder, most prominent on the left side abovethe trigone. Bladder trabeculations present. No evidence of stones, bladder diverticulum, or other bladder abnormalities. The bladder trigone and ureteral orifices were seen and no abnormalities noted. Normal urethra without inflammation, diverticulum, or other abnormality. Complications: none Procedure Summary: Patient tolerated procedure well. Medications: None given, currently taking [facility] data reviewed today in Care Everywhere: 10/27/21 [...] - CT urogram scheduled 11/08/21 - CYTOLOGY NON-CHIEF INVESTIGATOR - CONSULT TO UROLOGY; Future 2. Bladder wall thickening - CONSULT TO UROLOGY; Future 3. Abnormal cystoscopy - CONSULT TO UROLOGY; Future Beverley Luna MD documented in this encounterDetwiler [facility] Hospital04-18-2022 Miscellaneous Notes* Telephone Encounter - Les Griffin APRN.CNP - 10/16/2021 12:39 PM EDT Spoke with patient regarding hematuria on recent UA. She has a history of gross hematuria. We reviewed the work-up at length including cystoscopy, CT urogram and urine cytology. Advised patient I will place orders and we will call her to schedule. She understands. Les Griffin APRN.CNP documented in this encounterDetwiler Memorial Hospital04-14-2022 Nurse Note* Savanna Truong RN - 10/12/2021 11:09 AM EDT Patient seen today for a straight cath for specimens. Straight cath performed using sterile technique with a 12 mozambican catheter. Patient tolerated well and specimens prepared for lab analysis. Savanna Truong RN documented in this encounterDetwiler Memorial Hospital04-11-2022 Miscellaneous Notes* Telephone Encounter - Maria Elena Burleson Cma - 10/09/2021 9:48 AM EDT Called left message for results,. Maria Elena Burleson Cma * Telephone Encounter - Les Griffin APRN.CNP - 10/09/2021 8:54 AM EDT Advise patient urine culture is contaminated. If she is still experiencing UTI symptoms, she can submit a new specimen. Les Griffin APRN.AKBAR documented in this encounterDetwiler [facility] Hospital04-01-2022 Miscellaneous Notes* Telephone Encounter - Moira Westbrook RN - 09/29/2021 8:34 PM EDT Patient was hit for a prosthetic today with Uro Gynecology. She was calling to inform her provider she really struggled to remove it herself. She will follow up with provider when the office is open. documented in this encounterDetwiler Memorial Hospital04-01-2022 Instructions* Patient Instructions* Les Griffin APRN.CNP - 09/29/2021 10:51 AM EDT To call with pain/discomfort, vaginal bleeding or difficulty emptying bladder or bowels. Follow-up in 3 months. documented in this encounterDetwiler Memorial Hospital04-01-2022 History of Present illness Narrative* Les Griffin APRN.CNP - 09/29/2021 10:30 AM EDT Female Pelvic Medicine & Reconstructive Surgery Follow-Up Reji Echols is a 61 year old female, who presents for a pessary fitting. History since last visit: Was fit for pessary with Dr. Vasquez, states the pessary fell out within 1 day. Here today for refitting. Abnormal Bleeding: no Pain: yes, related to prolapse. Abnormal Vaginal Discharge: no CHIEF INVESTIGATOR HISTORY: Last pap: Date:couple weeks ago; Last mammogram: She has never had a mammogram LMP: No LMP recorded. Patient is postmenopausal.; Menopause no: Menstrual history: NA; Deliveries: {OB TYPE OF DELIVERY: vaginal and I have confirmed and edited as necessary, the PFSH obtained by others. Les Griffin APRN.CNP Garment Sorter offered: Patient accepts, visit chaperoned by Nirali Tyler APRN-AKBAR. OBJECTIVE: BP 142/80 Ht 5' 2" (1.58m) Wt 147 lb (66.7kg) BMI 26.88 kg/(m^2). General: Well appearing, alert, in no acute distress, well-hydrated, well nourished. Abdomen: Deferred Pelvic: Ext. Genitalia: No lesions or other abnormalities Vagina: atrophic epithelium Patient fit with a 2 1/2" Gellhorn pessary. The pessary was positioned properly within the vagina. The patient reported no discomfort and the pessary stayed in placed with ambulating and using the restroom. Impression: Reji Echols is a 61 year old female with POP. Plan: 1. Encounter for fitting and adjustment of pessary - Initial pessary fitting today (2 1/2 inch Gellhorn). 2. Complete uterovaginal prolapse - As above #1. 3. Cystocele, midline - As above #1. 4. Rectocele - As above #1. Les Griffin APRN.CNP documented in this encounterDetwiler [facility] Hospital03-28-2022 Miscellaneous Notes* Telephone Encounter - Sanjuana Chan RN - 09/25/2021 10:20 AM EDT Patient notified of Diflucan called to the office. She will repeat her culture and UA when treatment complete. Sanjuana Chan RN * Telephone Encounter - Les Griffin APRN.CNP - 09/25/2021 8:45 AM EDT Advise patient urine culture indicates a small amount of yeast in the urine. This will need treatedwith Diflucan 200 mg daily x 2 weeks. Prescription sent to pharmacy. Advise patient she will need to submit another urine specimen once she has completed treatment. Orders placed for repeat UA and culture in approximately 2 weeks. Les Griffin APRN.CNP documented in this encounterDetwiler Memorial Hospital03-23-2022 Instructions* Patient Instructions* Beverley Luna MD - 09/20/2021 1:50 PM EDT Schedule pessary fitting with Les Griffin NP We will call you with urine lab results and next steps documented in this encounterDetwiler Memorial Hospital03-23-2022 History of Present illness Narrative* Beverley Luna MD - 09/20/2021 1:07 PM EDT Female Pelvic Medicine & Reconstructive Surgery Consult CHIEF COMPLAINT: Reji Echols is a 61 year old female who presents for consultation requested by Self Referred for an opinion regarding pelvic organ prolapse, gross hematuria. Last seen by Dr. Steiner 01/13/18: IMPRESSION: Reji Echols is a 57 year old female with Urge Urinary Incontinence, Pelvic Organ Prolapse, and poorly controlled diabetes. PLAN: -POP diagnosis and management discussed using diagrams. Reviewed options- expectant management, PT,pessary, surgery. -Discussed management of overactive bladder / [...] and squamous epithelium. Medical and Symptom History: CHIEF INVESTIGATOR HISTORY: Last Pap: Date:09/11/21 NIL HPV neg; [...] pressure or fullness) Yes, what is your typicalprolapse related pain on a scale of 0-10? [...] SUBCUTANEOUS) Inject subcutaneously three times daily. 16 [id number] lunch 22 dinner mometasone (ELOCON) 0.1 % [...] Alcohol use: No Drug use: No Occupation: [employer] Status: REVIEW OF SYSTEMS General: Negative [...] PFSH and ROS obtained by others. Beverley Luna MD Garment Sorter offered: Patient accepts, visit chaperoned by Adonis Ramos LPN. OBJECTIVE: BP 134/72 Ht 5' 2" (1.58m) Wt 147 lb (66.7kg) BMI 26.88 [...] Wall - Rectocele Stage II Cervix / [place] - Stage lll / lV prolapse POP-Q: [...] large blood, +protein, small leuk IMPRESSION: Reji Echols is a 61 year old female with [...] record or letter via [place] mail. Beverley Luna MD documented in this encounterDetwiler [facility] Hospital05-17-2016 History of Past illness Narrative* Problem Noted Date Resolved Date Vulval lesion 11/15/2015 02/03/2016 documented as of this encounter (statuses as of 09/20/2021) [facility] of Past illness Narrative* Problem Noted Date Resolved Date Vulval lesion 11/15/2015 02/03/2016 documented as of this encounter (statuses as of 09/25/2021) [address]17-2016 History of Past illness Narrative* Problem Noted Date Resolved Date Vulval lesion 11/15/2015 02/03/2016 documented as of this encounter (statuses as of 09/29/2021) [address]17-2016 History of Past illness Narrative* Problem Noted Date Resolved Date Vulval lesion 11/15/2015 02/03/2016 documented as of this encounter (statuses as of 09/30/2021) [address] History of Past illness Narrative* Problem Noted Date Resolved Date Vulval lesion 11/15/2015 02/03/2016 documented as of this encounter (statuses as of 10/09/2021) [address]17-2016 History of Past illness Narrative* Problem Noted Date Resolved Date Vulval lesion 11/15/2015 02/03/2016 documented as of this encounter (statuses as of 10/12/2021) [address] History of Past illness Narrative* Problem Noted Date Resolved Date Vulval lesion 11/15/2015 02/03/2016 documented as of this encounter (statuses as of 10/16/2021) [address]17-2016 History of Past illness Narrative* Problem Noted Date Resolved Date Vulval lesion 11/15/2015 02/03/2016 documented as of this encounter (statuses as of 11/03/2021) [address]17-2016 History of Past illness Narrative* Problem Noted Date Resolved Date Vulval lesion 11/15/2015 02/03/2016 documented as of this encounter (statuses as of 11/10/2021) [address]17[address]2016 History of Past illness Narrative* Problem Noted Date Resolved Date Vulval lesion 11/15/2015 02/03/2016 documented as of this encounter (statuses as of 11/16/2021) [address]17[address]2016 History of Past illness Narrative* Problem Noted Date Resolved Date Vulval lesion 11/15/2015 02/03/2016 documented as of this encounter (statuses as of 04/18/2022) [address]17[address]2016 History of Past illness Narrative* Problem Noted Date Resolved Date Vulval lesion 11/15/2015 02/03/2016 documented as of this encounter (statuses as of 05/11/2022) [facility] Narrative* Problem Noted Date Resolved Date Vulval lesion 11/15/2015 02/03/2016 documented as of this encounter (statuses as of 05/28/2022) [facility] Narrative* Problem Noted Date Resolved Date Vulval lesion 11/15/2015 02/03/2016 documented as of this encounter (statuses as of 05/28/2022) [facility] Narrative* Problem Noted Date Resolved Date Vulval lesion 11/15/2015 02/03/2016 documented as of this encounter (statuses as of 06/20/2022) [facility] of [facility] illness Narrative* Problem Noted Date Diagnosed Date Resolved Date Vulval lesion 11/15/2015 02/03/2016 documented as of this encounter (statuses as of 09/18/2023) [facility] note* Diagnosis Gross hematuria- Primary Complete uterovaginal prolapse Uterovaginal prolapse, complete Cystocele, midline Rectocele Poorly controlled diabetes mellitus (HCC) Type II or unspecified type diabetes mellitus without mention of complication, not stated as uncontrolled documented in this encounter [facility]* Diagnosis Fungus present in urine- Primary Other and unspecified mycoses documented in this encounter [facility]* Diagnosis Encounter for fitting and adjustment of pessary- Primary Fitting and adjustment of other device Complete uterovaginal prolapse Uterovaginal prolapse, complete Cystocele, midline Rectocele documented in this encounter [facility]* Diagnosis Abnormal urine Other nonspecific finding on examination of urine Urinary tract infection without hematuria, site unspecified documented in this encounter [facility]* Diagnosis Gross hematuria- Primary documented in this encounter [facility] noteNo assessment information availableWMadison Health Work Phone: Evaluation note* Diagnosis Gross hematuria- Primary Bladder wall thickening Other specified disorders of bladder Abnormal cystoscopy Other nonspecific abnormal finding [facility]* Diagnosis Onset Date Resolution Status Cystitis acute [facility] Work Phone: Evaluation note* Diagnosis Complete uterovaginal prolapse- Primary Uterovaginal prolapse, complete Cystocele, midline Rectocele Poorly controlled diabetes mellitus (HCC) Type II or unspecified type diabetes mellitus without mention of complication, not stated as uncontrolled Gross hematuria Bladder wall thickening Other specified disorders of bladder Abnormal cystoscopy Other nonspecific abnormal finding Acute cystitis without hematuria Acute cystitis documented in this encounter [facility]* Diagnosis UTI symptoms- Primary Other symptoms involving urinary system [facility] encounter [facility]* Diagnosis Urinary frequency- Primary documented in this encounter [facility] note* Diagnosis Onset Date Resolution Status Acute sinusitis [facility] Work Phone: Evaluation note* Diagnosis Partial symptomatic epilepsy with complex partial seizures, not intractable, without status epilepticus (CMS/HCC)- Primary [facility] Diagnosis Partial symptomatic epilepsy with complex partial seizures, not intractable, without status epilepticus (CMS/HCC) [facility] Diagnosis Partial symptomatic epilepsy with complex partial seizures, not intractable, without status epilepticus (CMS/HCC)- Primary PRES (posterior reversible encephalopathy syndrome) Primary hypertension (CMS/HCC) Unspecified essential hypertension Type 2 diabetes mellitus with hyperglycemia, with long-term current use of insulin (CMS/HCC) documented in this encounter [facility] (narrative)No reason for referral information availableWMadison Health Work Phone: Summary Purpose Family History No Family History Records Found Relationship Condition Age at Onset Recorded Date/T [place] father Arthritis Unknown Diabetes mellitus Unknown Myocardial infarction 61 Cardiac disease Unknown Hypertension Unknown sister Arthritis Unknown brother Diabetes mellitus Unknown Mental disorder Unknown mother Hypertension Unknown Migraine headache Unknown Cerebral hemorrhage Unknown Advance Directives No Advanced Directives Records FoundDocuments on File Type Date Recorded Patient Software Development Analyst Expl anation Advance Directive(s) 01/17/2016 6:16 AM Advance Directive(s) 12/12/2015 12:16 PM Documents on File Type Date Recorded Patient Software Development Analyst Expl anation Advance Directive(s) 01/17/2016 6:16 AM Advance Directive(s) 12/12/2015 12:16 PM Advance Directive Response Recorded Date/ Time Living Will No April 28 9:00am Power of Director Erp No April 28, 2020 9:00am Advance Directive Response Recorded Date/ Time Living Will No April 28 8:00am Power of Director Erp No April 28, 2020 8:00am Advance Directive Response Recorded Date/ Time Living Will No September 13, 2023 8:31pm Power of Director Erp No September 12 8:31pm Advance Directive Response Recorded Date/ Time Living Will No September 17, 2023 4:25pm Power of Director Erp No September 16 4:25pm Advance Directive Response Recorded Date/ Time Living Will No September 27, 2023 5:02pm Power of Director Erp No September 26 5:02pm Advance Directive Response Recorded Date/ Time Living Will No July 26 11:40pm Do you have a Healthcare Power of Director Erp? No July 26, 2024 11:40pm Reason for Referral Specialty Diagnoses / Procedures Referred By Josh penn Referred To Contact CT IMAGING Diagnoses Gross hematuria Procedures CT UROGRAM WO/W IVCON CT ABD & PELVIS W/O CONTRST 1+ BODY Les Garcia, SHALE PLANER OPERATOR.CHEMICAL TEST ENGINEER [address] [place] [address] Ct Imaging Referral ID Status Reason Start Date Expiration Date Visits Requested Visits Authorized [id number] Pending Review Auto-Generat ed Referral 10/16/2021 11/15/2022 1 1 Specialty Diagnoses / Procedures Referred By Josh penn Referred To Contact Urology Diagnoses Gross hematuria Bladder wall thickening Abnormal cystoscopy Procedures CONSULT TO UROLOGY OFFICE/OUTPATIENT [facility] HIGH MDM 60-74 MINUTES Beverley Luna MD [address] [address] Referral ID Status Reason Start Date Expiration Date Visits Requested Visits Authorized [id number] Pending Review PCP Requested Referral 11/03/2021 11/03/2022 1 1 Referral ID Status Reason Start Date Expiration Date Visits Requested Visits Authorized [id number] Pending Review PCP Requested Referral 04/18/2023 1 1 Chief Complaint and Reason for Visit Chief Complaint R/O KIDNEY STONE Chief Complaint R/O KIDNEY STONE UTI/BLADDER/KIDNEY INFECTION UTI Reason for Visit Cystitis Chief Complaint SORE THROAT, SINUS Reason for Visit Acute sinusitis Chief Complaint SORE THROAT, SINUS URINE SAMPLE Reason for Visit Acute sinusitis Chief Complaint SCREENING Chief Complaint SCREENING SCREENING Chief Complaint SCREENING SCREENING Neck Pain Chief Complaint SCREENING SCREENING Neck Pain stroke alert Chief Complaint SCREENING SCREENING Neck Pain stroke alert DEBILITY/PRES with encephalopathy and seizures DEBILITY DEBILITY DEBILITY DEBILITY DEBILITY DEBILITY DEBILITY DEBILITY/PRES with encephalopathy and seizures Reason for Visit Acute anemia Chronic renal failure, stage 3a Debility Encephalopathy acute Heart murmur, systolic Irritable bowel syndrome Seizures Tobacco dependence in remission Vitamin D deficiency Benign essential hypertension Diabetes mellitus type 2 in nonobese Mixed hyperlipidemia Noncompliance with diabetes treatment Osteoarthritis (arthritis due to wear and tear of joints) Polyneuropathy due to type 2 diabetes mellitus PRES (posterior reversible encephalopathy syndrome) Chief Complaint SCREENING SCREENING Neck Pain stroke alert DEBILITY/PRES with encephalopathy and seizures DEBILITY DEBILITY DEBILITY DEBILITY DEBILITY DEBILITY DEBILITY DEBILITY/PRES with encephalopathy and seizures EPILEPSY DEBILITY,ENCEPHALOPATHY/RX HERE Reason for Visit Acute anemia Chronic renal failure, stage 3a Debility Seizures Encephalopathy acute PRES (posterior reversible encephalopathy syndrome) Chief Complaint Admit Date SYNCOPE, ACUTE ON CHRONIC ANEMIA, SUPECT ED GI July 26, 2024 10:10pm SYNCOPE, ACUTE ON CHRONIC ANEMIA, SUPECT ED GI July 27, 2024 9:59am SYNCOPE, ACUTE ON CHRONIC ANEMIA, SUPECT ED GI July 27, 2024 6:49pm SYNCOPE, ACUTE ON CHRONIC ANEMIA, SUPECT ED GI July 27, 2024 7:27pm SYNCOPE, ACUTE ON CHRONIC ANEMIA, SUPECT ED GI July 28, 2024 3:19pm SYNCOPE, ACUTE ON CHRONIC ANEMIA, SUPECT ED GI July 28, 2024 6:28pm SYNCOPE, ACUTE ON CHRONIC ANEMIA, SUPECT ED GI July 29, 2024 11:58am Hospital FU August 12, 2024 8:55am PILL CAM September 03, 2024 8:53 am 4 M FU, NS 08/06September 07, 2024 3:4 5pm Test Result September 17, 2024 8:5 2am E-ORDER 2 ORDERING PATRIA September 17, 2024 4:11pm Reason for Visit Admit Date Acute anemia July 27, 2024 9 :59am Melena July 27, 2024 9 :59am Syncope July 27, 2024 9 :59am Anemia August 12, 2024 8:55am Diabetes September 07, 2024 3:4 5pm Hypertension September 07, 2024 3:4 5pm Microalbuminuria September 07, 2024 3:4 5pm Mixed hyperlipidemia September 07, 2024 3: 45pm Neuropathy September 07, 2024 3:4 5pm Overweight September 07, 2024 3:4 5pm Enteritis September 17, 2024 8:5 2am Chief Complaint Admit Date SYNCOPE, ACUTE ON CHRONIC ANEMIA, SUPECT ED GI July 27, 2024 9:59am SYNCOPE, ACUTE ON CHRONIC ANEMIA, SUPECT ED GI July 28, 2024 3:19pm SYNCOPE, ACUTE ON CHRONIC ANEMIA, SUPECT ED GI July 28, 2024 6:28pm SYNCOPE, ACUTE ON CHRONIC ANEMIA, SUPECT ED GI July 29, 2024 11:58am Hospital FU August 12, 2024 8:55am PILL CAM September 03, 2024 8:53 am 4 M FU, NS 08/06September 07, 2024 3:4 5pm Test Result September 17, 2024 8:5 2am E-ORDER 2 ORDERING PATRIA September 17, 2024 4:11pm 2 M FU November 19, 2024 9:05a m MURMUR November 24, 2024 10:09 am Reason for Visit Admit Date Acute anemia July 27, 2024 9 :59am Melena July 27, 2024 9 :59am Syncope July 27, 2024 9 :59am Anemia August 12, 2024 8:55am Diabetes September 07, 2024 3:4 5pm Hypertension September 07, 2024 3:4 5pm Microalbuminuria September 07, 2024 3:4 5pm Mixed hyperlipidemia September 07, 2024 3: 45pm Neuropathy September 07, 2024 3:4 5pm Overweight September 07, 2024 3:4 5pm Enteritis September 17, 2024 8:5 2am Anemia November 19, 2024 9:05a m Enteritis November 19, 2024 9:05a m Chief Complaint Admit Date Hospital FU August 12, 2024 8:55am PILL CAM September 03, 2024 8:53 am 4 M FU, NS 08/06September 07, 2024 3:4 5pm Test Result September 17, 2024 8:5 2am E-ORDER 2 ORDERING PATRIA September 17, 2024 4:11pm 2 M FU November 19, 2024 9:05a m MURMUR November 24, 2024 10:09 am INT ORDER November 25, 2024 11:43 am Reason for Visit Admit Date Anemia August 12, 2024 8:55am Diabetes September 07, 2024 3:4 5pm Hypertension September 07, 2024 3:4 5pm Microalbuminuria September 07, 2024 3:4 5pm Mixed hyperlipidemia September 07, 2024 3: 45pm Neuropathy September 07, 2024 3:4 5pm Overweight September 07, 2024 3:4 5pm Enteritis September 17, 2024 8:5 2am Anemia November 19, 2024 9:05a m Enteritis November 19, 2024 9:05a m Chief Complaint Admit Date Hospital FU August 12, 2024 8:55am PILL CAM September 03, 2024 8:53 am 4 M FU, NS 08/06September 07, 2024 3:4 5pm Test Result September 17, 2024 8:5 2am E-ORDER 2 ORDERING PATRIA September 17, 2024 4:11pm 2 M FU November 19, 2024 9:05a m MURMUR November 24, 2024 10:09 am INT ORDER November 25, 2024 11:43 am INT ORDER December 07, 2024 12:06 pm Chief Complaint Admit Date 2 M FU November 19, 2024 9:05a m MURMUR November 24, 2024 10:09 am INT ORDER November 25, 2024 11:43 am INT ORDER December 07, 2024 12:06 pm L FOOT INJURY January 20, 2025 10:5 7am pain- LEFT FOOT AND ANKLE January 20 11:11am Reason for Visit Admit Date Anemia November 19, 2024 9:05a m Enteritis November 19, 2024 9:05a m Reason for Visit Admit Date Anemia November 19, 2024 9:05a m Enteritis November 19, 2024 9:05a m Left ankle strain January 20, 2025 10:5 7am Plantar fasciitis, left January 20, 2025 10:57am Strain of left foot January 20, 2025 10:5 7am Chief Complaint Admit Date 2 M FU November 19, 2024 9:05a m MURMUR November 24, 2024 10:09 am INT ORDER November 25, 2024 11:43 am INT ORDER December 07, 2024 12:06 pm L FOOT INJURY January 20, 2025 10:5 7am pain- LEFT FOOT AND ANKLE January 20 11:11am [employer] ([employer] February 03, 2025 9:5 0am Reason for Visit Admit Date Anemia November 19, 2024 9:05a m Enteritis November 19, 2024 9:05a m Plantar fasciitis, left January 20, 2025 10:57am Left ankle strain January 20, 2025 10:5 7am Strain of left foot January 20, 2025 10:5 7am Chief Complaint Admit Date 2 M FU November 19, 2024 9:05a m MURMUR November 24, 2024 10:09 am INT ORDER November 25, 2024 11:43 am INT ORDER December 07, 2024 12:06 pm L FOOT INJURY January 20, 2025 10:5 7am pain- LEFT FOOT AND ANKLE January 20 11:11am [employer] ([employer] February 03, 2025 9:5 0am [facility] February 09, 2025 10 :04am Reason for Visit Admit Date Anemia November 19, 2024 9:05a m Enteritis November 19, 2024 9:05a m Plantar fasciitis, left January 20, 2025 10:57am Left ankle strain January 20, 2025 10:5 7am Strain of left foot January 20, 2025 10:5 7am Benign essential hypertension January 9:50am Heart murmur, systolic February 03, 2025 9:50am Chief Complaint Admit Date 2 M FU November 19, 2024 9:05a m MURMUR November 24, 2024 10:09 am INT ORDER November 25, 2024 11:43 am INT ORDER December 07, 2024 12:06 pm L FOOT INJURY January 20, 2025 10:5 7am pain- LEFT FOOT AND ANKLE January 20 11:11am [employer] ([employer] February 03, 2025 9:5 0am [facility] February 09, 2025 10 :04am 3 M FU February 23, 2025 8: 54am Reason for Visit Admit Date Anemia November 19, 2024 9:05a m Enteritis November 19, 2024 9:05a m Plantar fasciitis, left January 20, 2025 10:57am Left ankle strain January 20, 2025 10:5 7am Strain of left foot January 20, 2025 10:5 7am Benign essential hypertension January 9:50am Heart murmur, systolic February 03, 2025 9:50am Anemia February 23, 2025 8: 54am Loose stools February 23, 2025 8: 54am Chief Complaint Admit Date 2 M FU November 19, 2024 9:05a m MURMUR November 24, 2024 10:09 am INT ORDER November 25, 2024 11:43 am INT ORDER December 07, 2024 12:06 pm L FOOT INJURY January 20, 2025 10:5 7am pain- LEFT FOOT AND ANKLE January 20 11:11am ABN ECHO ([facility]) February 03, 2025 9:5 0am [facility] February 09, 2025 10 :04am 3 M FU February 23, 2025 8: 54am 5 M FU February 24, 2025 9: 06am Reason for Visit Admit Date Anemia November 19, 2024 9:05a m Enteritis November 19, 2024 9:05a m Plantar fasciitis, left January 20, 2025 10:57am Left ankle strain January 20, 2025 10:5 7am Strain of left foot January 20, 2025 10:5 7am Benign essential hypertension January 9:50am Heart murmur, systolic February 03, 2025 9:50am Anemia February 23, 2025 8: 54am Loose stools February 23, 2025 8: 54am Benign essential hypertension January 9:06am Diabetes mellitus type 2 in nonobese Aug ust 2024 9:06am Vitamin D deficiency February 24, 2025 9 :06am Mixed hyperlipidemia February 24, 2025 9 :06am Chief Complaint Admit Date 2 M FU November 19, 2024 9:05a m MURMUR November 24, 2024 10:09 am INT ORDER November 25, 2024 11:43 am INT ORDER December 07, 2024 12:06 pm L FOOT INJURY January 20, 2025 10:5 7am pain- LEFT FOOT AND ANKLE January 20 11:11am ABN ECHO (CAM) February 03, 2025 9:5 0am [facility] February 09, 2025 10 :04am 3 M FU February 23, 2025 8: 54am 5 M FU February 24, 2025 9: 06am INT [facility]S [facility] February 24, 2025 9: 41am Reason for Visit Admit Date Anemia November 19, 2024 9:05a m Enteritis November 19, 2024 9:05a m Plantar fasciitis, left January 20, 2025 10:57am Left ankle strain January 20, 2025 10:5 7am Strain of left foot January 20, 2025 10:5 7am Heart murmur, systolic February 03, 2025 9:50am Benign essential hypertension January 9:50am Anemia February 23, 2025 8: 54am Loose stools February 23, 2025 8: 54am Benign essential hypertension January 9:06am Chronic renal failure, stage 3a January 302024 9:06am Diabetes mellitus type 2 in nonobese Aug us2024 9:06am Mixed hyperlipidemia February 24, 2025 9 :06am Overweight February 24, 2025 9: 06am Vitamin D deficiency February 24, 2025 9 :06am Medications Administered Section Inactive Administered Medications - [...] ized section and content) DATE CREATED AUTHOR 01/24/2018 [facility] DATE CREATED AUTHOR AUTHOR'S ORGANIZ ATION 02/28/2018 [employer] DATE CREATED AUTHOR AUTHOR'S ORGANIZ ATION 04/08/2018 [facility] DATE CREATED AUTHOR AUTHOR'S ORGANIZ ATION 09/26/2023 [facility] DATE CREATED AUTHOR AUTHOR'S ORGANIZ ATION 10/08/2023 [facility] DATE CREATED AUTHOR AUTHOR'S ORGANIZ ATION 04/26/2024 [facility] DATE CREATED AUTHOR AUTHOR'S ORGANIZ ATION 03/07/2025 [facility] Source Comments (unrecognize d section and content) In the event this informatio n is protected by the Federal Confidentiality of Alcohol and Drug Abuse Patient Records regulations: The Federal rules restrict any use of the information to criminally investigate or prosecute any alcohol or drug abuse patient.[facility] the event this information is protected by the Federal Confidentiality of Alcohol and Drug Abuse Patient Records regulations: The Federal rules restrict any use of the information to criminally investigate or prosecute any alcohol or drug abuse patient.[facility] the event this information is protected by the Federal Confidentiality of Alcohol and Drug Abuse Patient Records regulations: The Federal rules restrict any use of the information to criminally investigate or prosecute any alcohol or drug abuse patient.[facility] the event this information is protected by the Federal Confidentiality of Alcohol and Drug Abuse Patient Records regulations: The Federal rules restrict any use of the information to criminally investigate or prosecute any alcohol or drug abuse patient.[facility] the event this information is protected by the Federal Confidentiality of Alcohol and Drug Abuse Patient Records regulations: The Federal rules restrict any use of the information to criminally investigate or prosecute any alcohol or drug abuse patient.[facility] the event this information is protected by the Federal Confidentiality of Alcohol and Drug Abuse Patient Records regulations: The Federal rules restrict any use of the information to criminally investigate or prosecute any alcohol or drug abuse patient.[facility] the event this information is protected by the Federal Confidentiality of Alcohol and Drug Abuse Patient Records regulations: The Federal rules restrict any use of the information to criminally investigate or prosecute any alcohol or drug abuse patient.[facility] the event this information is protected by the Federal Confidentiality of Alcohol and Drug Abuse Patient Records regulations: The Federal rules restrict any use of the information to criminally investigate or prosecute any alcohol or drug abuse patient.[facility] the event this information is protected by the Federal Confidentiality of Alcohol and Drug Abuse Patient Records regulations: The Federal rules restrict any use of the information to criminally investigate or prosecute any alcohol or drug abuse patient.[facility] the event this information is protected by the Federal Confidentiality of Alcohol and Drug Abuse Patient Records regulations: The Federal rules restrict any use of the information to criminally investigate or prosecute any alcohol or drug abuse patient.[facility] the event this information is protected by the Federal Confidentiality of Alcohol and Drug Abuse Patient Records regulations: The Federal rules restrict any use of the information to criminally investigate or prosecute any alcohol or drug abuse patient.[facility] Hospital[facility] the event this information is protected by the Federal Confidentiality of Alcohol and Drug Abuse Patient Records regulations: The Federal rules restrict any use of the information to criminally investigate or prosecute any alcohol or drug abuse patient.[facility] Hospital[facility] the event this information is protected by the Federal Confidentiality of Alcohol and Drug Abuse Patient Records regulations: The Federal rules restrict any use of the information to criminally investigate or prosecute any alcohol or drug abuse patient.[facility] Hospital[facility] the event this information is protected by the Federal Confidentiality of Alcohol and Drug Abuse Patient Records regulations: The Federal rules restrict any use of the information to criminally investigate or prosecute any alcohol or drug abuse patient.[facility] Hospital[facility] the event this information is protected by the Federal Confidentiality of Alcohol and Drug Abuse Patient Records regulations: The Federal rules restrict any use of the information to criminally investigate or prosecute any alcohol or drug abuse patient.[facility] Hospital[facility] the event this information is protected by the Federal Confidentiality of Alcohol and Drug Abuse Patient Records regulations: The Federal rules restrict any use of the information to criminally investigate or prosecute any alcohol or drug abuse patient.[facility] Hospital[facility] the event this information is protected by the Federal Confidentiality of Alcohol and Drug Abuse Patient Records regulations: The Federal rules restrict any use of the information to criminally investigate or prosecute any alcohol or drug abuse patient.[facility] Reason for Visit (unrecogniz ed section and content) Reason Comments Prolapse Hematuria Specialty Diagnoses / Procedures Referred By Contac t Referred To Contact Urogynecology / URO GYNECOLOGY Diagnoses bladder prolapse, occasional urethreal bleeding with urination Procedures [facility] PATIENT Self Beverley Luna MD [address] [place] [id number] Referral ID Status Reason Start Date Expiration Date Visits Re quested Visits Authorized [id number] Closed 09/20/2021 12/28/2021 1 1 Reason Comments Results Reason Comments Pessary Specialty Diagnoses / Procedures Referred By Contac t Referred To Contact Gynecology / URO GYNECOLOGY Diagnoses pessary fitting Procedures OFFICE/OUTPATIENT ESTABLISHED HIGH MDM 40-54 MIN EST I PATIENT Les Griffin, SHALE PLANER OPERATOR.CHEMICAL TEST ENGINEER [address] [place] [address] Les Griffin, SHALE PLANER OPERATOR.CHEMICAL TEST ENGINEER [address] [place] [address] Referral ID Status Reason Start Date Expiration Date Visits Re quested Visits Authorized [id number] Closed 09/29/2021 12/28/2021 1 1 Reason Comments Information Reason Comments UTI Specialty Diagnoses / Procedures Referred By Contac t Referred To Contact Urology / UROLOGY Diagnoses Straight cath specimen UA and culture Procedures OFFICE/OUTPATIENT EST PT MAY NOT REQ PHYS/QHP EST UROL Melanie Levy MD [address] [place] [address] [employer], Nurse [facility]rol [address] [place] [address] Referral ID Status Reason Start Date Expiration Date Visits Re quested Visits Authorized [id number] Closed 10/11/2021 06/30/2022 1 1 Reason Comments Results Reason Comments Gross Hematuria Specialty Diagnoses / Procedures Referred By Contact Referred To Contact Urogynecology / UROLOGY Diagnoses Recurrent UTI Procedures REFERRAL TO [facility] FINANCIAL COUNSELOR CYSTOURETHROSCOPY CYSTOSCOPY Melanie Levy MD [address] [place] [address] Beverley Luna MD [address] [address] Referral ID Status Reason Start Date Expiration Date V isits Requested Visits Authorized [id number] Closed Financial Clearance Required - [employer] 10/23/2021 06/30/2022 1 1 Reason Comments No Show Reason Comments Follow Up Prolapse UTI Specialty Diagnoses / Procedures Referred By Contac t Referred To Contact Urogynecology / URO GYNECOLOGY Diagnoses bladder prolapse, occasional urethreal bleeding with urination Procedures [facility] PATIENT Self Beverley Luna MD [address] [address] Referral ID Status Reason Start Date Expiration Date V isits Requested Visits Authorized [id number] Authorized 09/20/2021 06/30/2022 99 99 Reason Comments Returning Patient's Call Reason Comments UTI Burning, frequency, blood in urine x 2 weeks Reason Comments Critical Care Transport Reason Comments Seizures Reason Comments eeg results Seizures Care Teams (unrecognized sec tion and content) Team Status: Active Member Role Status Dates Dr. Melanie Levy MD Primary Care Provider Acti ve Team Status: Inactive Member Role Status Dates Dr. Melanie Levy MD Primary Care Provider Acti ve Start: July 27, 2024 End: July 29, 2024 Dr. David Daniels DO Emergency Provider Active Start: July 27, 2024 End: July 29, 2024 Dr. Mai Pérez MD Admit Provider Active St art: July 27, 2024 End: July 29, 2024 Dr. Mai Pérez MD Referring Provider Active Start: July 27, 2024 End: July 29, 2024 Dr. Mai Pérez MD Other Provider Active St art: July 27, 2024 End: July 29, 2024 Dr. Marielena Roberts DO Attending Provider Active S tart: July 27, 2024 End: July 29, 2024 Team Status: Active Member Role Status Dates Dr. Melanie Levy MD Primary Care Provider Acti ve Start: July 28, 2024 Dr. David Daniels DO Emergency Provider Active Start: July 28, 2024 Dr. Mai Pérez MD Admit Provider Active St art: July 28, 2024 Dr. Mai Pérez MD Referring Provider Active Start: July 28, 2024 Dr. Mai Pérez MD Other Provider Active St art: July 28, 2024 Dr. Marielena Roberts DO Other Provider Active Start : July 28, 2024 Dr. Ramez Khan DO Attending Provider Active Start: July 28, 2024 Team Status: Active Member Role Status Dates Dr. Melanie Levy MD Primary Care Provider Acti ve Start: July 28, 2024 Dr. David Daniels DO Emergency Provider Active Start: July 28, 2024 Dr. Mai Pérez MD Admit Provider Active St art: July 28, 2024 Dr. Mai Pérez MD Other Provider Active St art: July 28, 2024 Dr. Marielena Roberts DO Attending Provider Active S tart: July 28, 2024 Dr. Marielena Roberts DO Other Provider Active Start : July 28, 2024 Team Status: Active Member Role Status Dates Dr. Melanie Levy MD Primary Care Provider Acti ve Start: July 29, 2024 Dr. David Daniels DO Emergency Provider Active Start: July 29, 2024 Dr. Mai Pérez MD Admit Provider Active St art: July 29, 2024 Dr. Mai Pérez MD Other Provider Active St art: July 29, 2024 Dr. Marielena Roberts DO Attending Provider Active S tart: July 29, 2024 Dr. Marielena Roberts DO Other Provider Active Start : July 29, 2024 Team Status: Inactive Member Role Status Dates Dr. Melanie Levy MD Primary Care Provider Acti ve Start: August 12, 2024 End: August 12, 2024 Dr. Melanie Levy MD Referring Provider Active Start: August 12, 2024 End: August 12, 2024 LOY Mcgregor Attending Provider Active Start: August 12, 2024 End: August 12, 2024 Team Status: Inactive Member Role Status Dates Dr. Melanie Levy MD Primary Care Provider Acti ve Start: August 12, 2024 End: August 12, 2024 LOY Mcgregor Attending Provider Active Start: August 12, 2024 End: August 12, 2024 LOY Mcgregor Referring Provider Active Start: August 12, 2024 End: August 12, 2024 Team Status: Inactive Member Role Status Dates Dr. Melanie Levy MD Primary Care Provider Acti ve Start: September 03, 2024 End: September 03, 2024 Dr. Melanie Levy MD Referring Provider Active Start: September 03, 2024 End: September 03, 2024 Dr. Ramez Khan DO Attending Provider Active Start: September 03, 2024 End: September 03, 2024 Team Status: Inactive Member Role Status Dates Dr. Melanie Levy MD Primary Care Provider Acti ve Start: September 07, 2024 End: September 07, 2024 Dr. Melanie Levy MD Referring Provider Active Start: September 07, 2024 End: September 07, 2024 PEPPER Arizmendi Attending Provider Active Start: September 07, 2024 End: September 07, 2024 Team Status: Inactive Member Role Status Dates Dr. Melanie Levy MD Primary Care Provider Acti ve Start: September 17, 2024 End: September 17, 2024 Dr. Melanie Levy MD Referring Provider Active Start: September 17, 2024 End: September 17, 2024 LOY Mcgregor Attending Provider Active Start: September 17, 2024 End: September 17, 2024 Team Status: Inactive Member Role Status Dates Dr. Melanie Levy MD Primary Care Provider Acti ve Start: September 17, 2024 End: September 17, 2024 Dr. Melanie Levy MD Other Provider Active Start: September 17, 2024 End: September 17, 2024 LOY Mcgregor Attending Provider Active Start: September 17, 2024 End: September 17, 2024 LOY Mcgregor Referring Provider Active Start: September 17, 2024 End: September 17, 2024 Team Status: Inactive Member Role Status Dates Dr. Melanie Levy MD Primary Care Provider Acti ve Start: November 03, 2024 End: November 03, 2024 Dr. Melanie Levy MD Attending Provider Active Start: November 03, 2024 End: November 03, 2024 Dr. Melanie Levy MD Referring Provider Active Start: November 03, 2024 End: November 03, 2024 Team Status: Inactive Member Role Status Dates Dr. Melanie Levy MD Primary Care Provider Acti ve Start: November 19, 2024 End: November 19, 2024 Dr. Melanie Levy MD Referring Provider Active Start: November 19, 2024 End: November 19, 2024 LOY Mcgregor Attending Provider Active Start: November 19, 2024 End: November 19, 2024 Team Status: Inactive Member Role Status Dates Dr. Melanie Levy MD Primary Care Provider Acti ve Start: November 19, 2024 End: November 19, 2024 LOY Mcgregor Attending Provider Active Start: November 19, 2024 End: November 19, 2024 LOY Mcgregor Referring Provider Active Start: November 19, 2024 End: November 19, 2024 Team Status: Active Member Role Status Dates Dr. Melanie Levy MD Primary Care Provider Acti ve Start: November 24, 2024 Dr. Melanie Levy MD Attending Provider Active Start: November 24, 2024 Dr. Melanie Levy MD Referring Provider Active Start: November 24, 2024 Bunch Maker Relationship Specialty Start Date End Date Melanie Levy MD [address] [place] [address] PCP - General Family Practice 09/20/21 Bunch Maker Relationship Specialty Start Date End Date Melanie Levy MD [address] [place] [address] PCP - General Family Practice 09/20/21 Bunch Maker Relationship Specialty Start Date End Date Melanie Levy MD [address] [place] [address] PCP - General Family Practice 09/20/21 Bunch Maker Relationship Specialty Start Date End Date Melanie Levy MD [address] [place] [address] PCP - General Family Practice 09/20/21 Bunch Maker Relationship Specialty Start Date End Date Melanie Levy MD [address] [place] [address] PCP - General Family Practice 09/20/21 Bunch Maker Relationship Specialty Start Date End Date Melanie Levy MD [address] [place] [address] PCP - General Family Practice 09/20/21 Bunch Maker Relationship Specialty Start Date End Date Melanie Levy MD [address] [place] [address] PCP - General Family Practice 09/20/21 Bunch Maker Relationship Specialty Start Date End Date Melanie Levy MD [address] [place] [address] PCP - General Family Practice 09/20/21 Bunch Maker Relationship Specialty Start Date End Date Melanie Levy MD [address] [place] [address] PCP - General Family Medicine 09/20/21 Bunch Maker Relationship Specialty Start Date End Date Melanie Levy MD [address] [place] [address] PCP - General Family Medicine 09/20/21 Bunch Maker Relationship Specialty Start Date End Date Melanie Levy MD [address] [place], [place] [id number] PCP - General Family Medicine 09/20/21 Bunch Maker Relationship Specialty Start Date End Date Melanie Levy MD [address] [place], [place] [id number] PCP - General Family Medicine 09/20/21 Team Status: Active Member Role Status Dates Dr. Javier Levy MD Family Provider Active Dr. Javier Levy MD Primary Care Provider Activ e Team Status: Inactive Member Role Status Dates Dr. Javier Levy MD Primary Care Provider, Attending Provider, Referring Provider Active Team Status: Inactive Member Role Status Dates Dr. Javier Levy MD Primary Care Provider, Refe rring Provider Active Hamilton GRANADO, PA Attending Provider Active Team Status: Inactive Member Role Status Dates Dr. Javier Levy MD Primary Care Provider, Atte nding Provider Active Team Status: Inactive Member Role Status Dates Dr. Javier Levy MD Primary Care Provider Activ e Dr. Henri Dickinson MD Attending Provider, Referring Prov ider Active Team Status: Active Member Role Status Dates Dr. Javier Levy MD Primary Care Provider Activ e Dr. Jay Hernández MD Attending Provider Active Team Status: Inactive Member Role Status Dates Dr. Javier Levy MD Primary Care Provider Activ e Dr. Richmond Phoenix MD Emergency Provider Active Bunch Maker Relationship Specialty Start Date End Date Melanie Levy MD PCP - General Family Medicine 09/20/21 Team Status: Active Member Role Status Dates Dr. Melanie Levy MD Family Provider Active Dr. Melanie Levy MD Primary Care Provider Acti ve Team Status: Active Member Role Status Dates Dr. Melanie Levy MD Primary Care Provider Acti ve Dr. Jay Hernández MD Attending Provider Active Team Status: Active Member Role Status Dates Dr. Melanie Levy MD Primary Care Provider Acti ve Dr. Hannah Sementi , DO Admit Pr ovider, Attending Provider, Other Provider Active Team Status: Inactive Member Role Status Dates Dr. Melanie Levy MD Primary Care Provider, Attending Provider, Referring Provider Active Team Status: Inactive Member Role Status Dates Dr. Melanie Levy MD Primary Care Provider Acti ve Dr. Richmond Phoenix MD Attending Provider, Emergency Provi rebekah Active Team Status: Inactive Member Role Status Dates Dr. Melanie Levy MD Primary Care Provider Acti ve Dr. Henri Kelly , DO Admit Provider, Attend ing Provider Active Bunch Maker Relationship Specialty Start Date End Date Melanie Levy MD PCP - General Family Medicine 09/20/21 Team Status: Inactive Member Role Status Dates Dr. Melanie Levy MD Primary Care Provider Acti ve Dr. Power Paul MD Attending Provider, Referring Provider Active Team Status: Active Member Role Status Dates Dr. Melanie Levy MD Primary Care Provider Acti ve Dr. Henri Kelly , Attending Provider, Re ferring Provider Active Bunch Maker Relationship Specialty Start Date End Date Melanie Levy MD [address] [place] [phone] PCP - General Family Medicine 10/02/23 Bunch Maker Relationship Specialty Start Date End Date Melanie Levy MD [address] [place] [phone] PCP - General Family Medicine 10/02/23 Bunch Maker Relationship Specialty Start Date End Date Melanie Levy MD [address] [place] [phone] PCP - General Family Medicine 10/02/23 Bunch Maker Relationship Specialty Start Date End Date Melanie Levy MD [address] [place] [phone] PCP - General Family Medicine 10/02/23 Bunch Maker Relationship Specialty Start Date End Date Melanie Levy MD [address] [place] [phone] PCP - General Family Medicine 10/02/23 Bunch Maker Relationship Specialty Start Date End Date Melanie Levy MD [address] [place] [phone] PCP - General Family Medicine 10/02/23 Team Status: Active Member Role Status Dates Dr. Melanie Levy MD Primary Care Provider Acti ve Start: July 26, 2024 Dr. David Daniels DO Emergency Provider Active Start: July 26, 2024 Dr. Mai Pérez MD Admit Provider Active St art: July 26, 2024 Dr. Mai Pérez MD Attending Provider Active Start: July 26, 2024 Dr. Mai Pérez MD Other Provider Active St art: July 26, 2024 Team Status: Active Member Role Status Dates Dr. Melanie Levy MD Primary Care Provider Acti ve Start: July 27, 2024 Dr. David Daniels DO Emergency Provider Active Start: July 27, 2024 Dr. Mai Pérez MD Admit Provider Active St art: July 27, 2024 Dr. Mai Pérez MD Referring Provider Active Start: July 27, 2024 Dr. Mai Pérez MD Other Provider Active St art: July 27, 2024 Dr. Marielena Roberts DO Other Provider Active Start : July 27, 2024 Dr. Ramez Khan DO Attending Provider Active Start: July 27, 2024 Team Status: Active Member Role Status Dates Dr. Melanie Levy MD Primary Care Provider Acti ve Start: July 27, 2024 Dr. David Daniels DO Emergency Provider Active Start: July 27, 2024 Dr. Mai Pérez MD Admit Provider Active St art: July 27, 2024 Dr. Mai Pérez MD Other Provider Active St art: July 27, 2024 Dr. Marielena Roberts DO Attending Provider Active S tart: July 27, 2024 Dr. Marielena Roberts DO Other Provider Active Start : July 27, 2024 Team Status: Inactive Member Role Status Dates Dr. Melanie Levy MD Primary Care Provider Acti ve Start: November 24, 2024 End: November 24, 2024 Dr. Melanie Levy MD Attending Provider Active Start: November 24, 2024 End: November 24, 2024 Dr. Melanie Levy MD Referring Provider Active Start: November 24, 2024 End: November 24, 2024 Team Status: Active Member Role Status Dates Dr. Melanie Levy MD Primary Care Provider Acti ve Start: November 24, 2024 Dr. Jersey Farley MD Attending Provider Active Start: November 24, 2024 Team Status: Active Member Role Status Dates Dr. Melanie Levy MD Primary Care Provider Acti ve Start: November 25, 2024 LOY Mcgregor Attending Provider Active Start: November 25, 2024 LOY Mcgregor Referring Provider Active Start: November 25, 2024 Team Status: Inactive Member Role Status Dates Dr. Melanie Levy MD Primary Care Provider Acti ve Start: November 25, 2024 End: November 25, 2024 LOY Mcgregor Attending Provider Active Start: November 25, 2024 End: November 25, 2024 LOY Mcgregor Referring Provider Active Start: November 25, 2024 End: November 25, 2024 Team Status: Inactive Member Role Status Dates Dr. Melanie Levy MD Primary Care Provider Acti ve Start: December 07, 2024 End: December 07, 2024 LOY Mcgregor Attending Provider Active Start: December 07, 2024 End: December 07, 2024 LOY Mcgregor Referring Provider Active Start: December 07, 2024 End: December 07, 2024 Team Status: Active Member Role/Relationship Status Dates Dr. Melanie Levy MD Primary Care Provider Acti ve Team Status: Inactive Member Role/Relationship Status Dates Dr. Melanie Levy MD Primary Care Provider Acti ve Start: November 03, 2024 End: November 03, 2024 Dr. Melanie Levy MD Attending Provider Active Start: November 03, 2024 End: November 03, 2024 Dr. Melanie Levy MD Referring Provider Active Start: November 03, 2024 End: November 03, 2024 Team Status: Inactive Member Role/Relationship Status Dates Dr. Melanie Levy MD Primary Care Provider Acti ve Start: November 19, 2024 End: November 19, 2024 Dr. Melanie Levy MD Referring Provider Active Start: November 19, 2024 End: November 19, 2024 LOY Mcgregor Attending Provider Active Start: November 19, 2024 End: November 19, 2024 Team Status: Inactive Member Role/Relationship Status Dates Dr. Melanie Levy MD Primary Care Provider Acti ve Start: November 19, 2024 End: November 19, 2024 LOY Mcgregor Attending Provider Active Start: November 19, 2024 End: November 19, 2024 LOY Mcgregor Referring Provider Active Start: November 19, 2024 End: November 19, 2024 Team Status: Inactive Member Role/Relationship Status Dates Dr. Melanie Levy MD Primary Care Provider Acti ve Start: November 24, 2024 End: November 24, 2024 Dr. Melanie Levy MD Attending Provider Active Start: November 24, 2024 End: November 24, 2024 Dr. Melanie Levy MD Referring Provider Active Start: November 24, 2024 End: November 24, 2024 Team Status: Active Member Role/Relationship Status Dates Dr. Melanie Levy MD Primary Care Provider Acti ve Start: November 24, 2024 Dr. Jersey Farley MD Attending Provider Active Start: November 24, 2024 Team Status: Inactive Member Role/Relationship Status Dates Dr. Melanie Levy MD Primary Care Provider Acti ve Start: November 25, 2024 End: November 25, 2024 LOY Mcgregor Attending Provider Active Start: November 25, 2024 End: November 25, 2024 Ivelisse Atanasov , PA Referring Provider Active Start: November 25, 2024 End: November 25, 2024 Team Status: Inactive Member Role/Relationship Status Dates Dr. Melanie Levy MD Primary Care Provider Acti ve Start: December 07, 2024 End: December 07, 2024 LOY Mcgregor Attending Provider Active Start: December 07, 2024 End: December 07, 2024 LOY Mcgregor Referring Provider Active Start: December 07, 2024 End: December 07, 2024 Team Status: Inactive Member Role/Relationship Status Dates Dr. Melanie Levy MD Primary Care Provider Acti ve Start: January 20, 2025 End: January 20, 2025 Dr. Melanie Levy MD Referring Provider Active Start: January 20, 2025 End: January 20, 2025 Luke De Jesus PA, PA Attending Provider Active Start: January 20, 2025 End: January 20, 2025 Team Status: Active Member Role/Relationship Status Dates Dr. Melanie Levy MD Primary Care Provider Acti ve Start: January 20, 2025 Luke De Jesus PA, PA Attending Provider Active Start: January 20, 2025 Luke De Jesus PA, PA Referring Provider Active Start: January 20, 2025 Team Status: Inactive Member Role/Relationship Status Dates Dr. Melanie Levy MD Primary Care Provider Acti ve Start: January 20, 2025 End: January 20, 2025 Luke De Jesus PA, PA Attending Provider Active Start: January 20, 2025 End: January 20, 2025 Luke De Jesus PA, PA Referring Provider Active Start: January 20, 2025 End: January 20, 2025 Team Status: Inactive Member Role/Relationship Status Dates Dr. Melanie Levy MD Primary Care Provider Acti ve Start: February 03, 2025 End: February 03, 2025 Dr. Melanie Levy MD Referring Provider Active Start: February 03, 2025 End: February 03, 2025 Dr. Kendrick Morales MD Attending Provider Active S tart: February 03, 2025 End: February 03, 2025 Team Status: Inactive Member Role/Relationship Status Dates Dr. Melanie Levy MD Primary Care Provider Acti ve Start: February 09, 2025 End: February 09, 2025 Dr. Melanie Levy MD Referring Provider Active Start: February 09, 2025 End: February 09, 2025 Dr. Adam Alvarado MD Attending Provider Active Sta rt: February 09, 2025 End: February 09, 2025 Team Status: Inactive Member Role/Relationship Status Dates Dr. Melanie Levy MD Primary Care Provider Acti ve Start: February 23, 2025 End: February 23, 2025 Dr. Melanie Levy MD Referring Provider Active Start: February 23, 2025 End: February 23, 2025 LOY Mcgregor Attending Provider Active Start: February 23, 2025 End: February 23, 2025 Team Status: Inactive Member Role/Relationship Status Dates Dr. Melanie Levy MD Primary Care Provider Acti ve Start: February 24, 2025 End: February 24, 2025 Dr. Melanie Levy MD Referring Provider Active Start: February 24, 2025 End: February 24, 2025 PEPPER Arizmendi Attending Provider Active Start: February 24, 2025 End: February 24, 2025 Team Status: Inactive Member Role/Relationship Status Dates Dr. Melanie Levy MD Primary Care Provider Acti ve Start: November 19, 2024 End: November 19, 2024 Dr. Melanie Levy MD Referring Provider Active Start: November 19, 2024 End: November 19, 2024 LOY Mcgregor Attending Provider Active Start: November 19, 2024 End: November 19, 2024 Team Status: Inactive Member Role/Relationship Status Dates Dr. Melanie Levy MD Primary Care Provider Acti ve Start: November 19, 2024 End: November 19, 2024 LOY Mcgregor Attending Provider Active Start: November 19, 2024 End: November 19, 2024 LOY Mcgregor Referring Provider Active Start: November 19, 2024 End: November 19, 2024 Team Status: Inactive Member Role/Relationship Status Dates Dr. Melanie Levy MD Primary Care Provider Acti ve Start: November 24, 2024 End: November 24, 2024 Dr. Melanie Levy MD Attending Provider Active Start: November 24, 2024 End: November 24, 2024 Dr. Melanie Levy MD Referring Provider Active Start: November 24, 2024 End: November 24, 2024 Team Status: Active Member Role/Relationship Status Dates Dr. Melanie Levy MD Primary Care Provider Acti ve Start: November 24, 2024 Dr. Jersey Farley MD Attending Provider Active Start: November 24, 2024 Team Status: Inactive Member Role/Relationship Status Dates Dr. Melanie Levy MD Primary Care Provider Acti ve Start: November 25, 2024 End: November 25, 2024 LOY Mcgregor Attending Provider Active Start: November 25, 2024 End: November 25, 2024 LOY Mcgregor Referring Provider Active Start: November 25, 2024 End: November 25, 2024 Team Status: Inactive Member Role/Relationship Status Dates Dr. Melanie Levy MD Primary Care Provider Acti ve Start: December 07, 2024 End: December 07, 2024 Ivelisse Ramirez PA Attending Provider Active Start: December 07, 2024 End: December 07, 2024 LOY Mcgregor Referring Provider Active Start: December 07, 2024 End: December 07, 2024 Team Status: Inactive Member Role/Relationship Status Dates Dr. Melanie Levy MD Primary Care Provider Acti ve Start: January 20, 2025 End: January 20, 2025 Dr. Melanie Levy MD Referring Provider Active Start: January 20, 2025 End: January 20, 2025 Luke GRANADO, PA Attending Provider Active Start: January 20, 2025 End: January 20, 2025 Team Status: Inactive Member Role/Relationship Status Dates Dr. Melanie Levy MD Primary Care Provider Acti ve Start: January 20, 2025 End: January 20, 2025 Luke GRANADO PA Attending Provider Active Start: January 20, 2025 End: January 20, 2025 Luke GRANADO, PA Referring Provider Active Start: January 20, 2025 End: January 20, 2025 Team Status: Inactive Member Role/Relationship Status Dates Dr. Melanie Levy MD Primary Care Provider Acti ve Start: February 03, 2025 End: February 03, 2025 Dr. Melanie Levy MD Referring Provider Active Start: February 03, 2025 End: February 03, 2025 Dr. Kendrick Morales MD Attending Provider Active S tart: February 03, 2025 End: February 03, 2025 Team Status: Inactive Member Role/Relationship Status Dates Dr. Melanie Levy MD Primary Care Provider Acti ve Start: February 09, 2025 End: February 09, 2025 Dr. Mleanie Levy MD Referring Provider Active Start: February 09, 2025 End: February 09, 2025 Dr. Adam Alvarado MD Attending Provider Active Sta rt: February 09, 2025 End: February 09, 2025 Team Status: Inactive Member Role/Relationship Status Dates Dr. Melanie Levy MD Primary Care Provider Acti ve Start: February 23, 2025 End: February 23, 2025 Dr. Melanie Levy MD Referring Provider Active Start: February 23, 2025 End: February 23, 2025 LOY Mcgregor Attending Provider Active Start: February 23, 2025 End: February 23, 2025 Team Status: Inactive Member Role/Relationship Status Dates Dr. Melanie Levy MD Primary Care Provider Acti ve Start: February 24, 2025 End: February 24, 2025 Dr. Melanie Levy MD Referring Provider Active Start: February 24, 2025 End: February 24, 2025 PEPPER Arizmendi Attending Provider Active Start: February 24, 2025 End: February 24, 2025 Team Status: Inactive Member Role/Relationship Status Dates Dr. Melanie Levy MD Primary Care Provider Acti ve Start: February 24, 2025 End: February 24, 2025 PEPPER Arizmendi Attending Provider Active Start: February 24, 2025 End: February 24, 2025 PEPPER Arizmendi Referring Provider Active Start: February 24, 2025 End: February 24, 2025 LOY Mcgregor Other Provider Active Star t: February 24, 2025 End: February 24, 2025 Goals (unrecognized section and content) Goals may be documented in a n alternate sectionGoals may be documented in an alternate sectionGoals may be documented in an alternate sectionGoals may be documented in an alternate sectionGoals may be documented in an alternate sectionGoals may be documented in an alternate sectionGoals may be documented in an alternate sectionGoals may be documented in an alternate sectionGoals may be documented in an alternate sectionGoals may be documented in an alternate sectionGoals may be documented in an alternate sectionGoals may be documented in an alternate sectionGoals may be documented in an alternate sectionGoals may be documented in an alternate sectionGoals may be documented in an alternate sectionGoals may be documented in an alternate sectionGoals may be documented in an alternate sectionGoals may be documented in an alternate sectionGoals may be documented in an alternate sectionGoals may be documented in an alternate sectionGoals may be documented in an alternate sectionGoals may be documented in an alternate sectionGoals may be documented in an alternate section Inactive Administered Medications - up to 3 most recent administrations Administered Medications (un recognized section and content) Medication Order MAR Action Action Date Dose Rate Site fentaNYL 50 mcg/mL 50 mcg injection (SUBLIMAZE) 50 mcg, INTRAVENOUS, ONCE, 1 dose, On Sat09/17/23 at 2330 CCT Only: Given (No Charge) 09/17/2023 9:08 PM EDT 50 mcg FOR RECORDS PERTAINING TO PATIENTS WHO ARE [...] BE BASED ON THE PRIMARY CLINICAL RECORDS. [facility]. provides no warranty or guarantee of the accuracy or completeness of information in this document.
[2025-04-18 02:07] LABS: Calprotectin, Stool 185 ug/g (0-120)
== END | disposition home or self-care (01) ==
LOC: LABSPEC 07:22
PROVIDERS: PCP Family Medicine; Referring Provider Student in an Organized Health Care Education/Training Program; Visit Provider Student in an Organized Health Care Education/Training Program
DX: R19.5 Other fecal abnormalities (principal)
CPT/HCPCS: 83993

== ENCOUNTER → 2025-05-05 | Outpatient (CLI) | payer MEDICARE, BC, SELFPAY ==
--- NOTE | 2025-05-05 09:55 | MRI_ITS ---
EXAM: MRI/Enterography Abd/Pel
[2025-05-05 10:29] VITALS: BP 146/64; PULSE 64; RESP 18; O2SAT 99
[2025-05-05] MEDS: Glucagon 1 MG/ML Syringe IV (12:00)
[2025-05-05] MEDS: 0.9% Saline Lock 10 ML Syringe IV (12:04)
[2025-05-05 12:21] VITALS: BP 121/61; PULSE 78; RESP 18; O2SAT 93
== END | disposition home or self-care (01) ==
LOC: OPMRI 09:51
PROVIDERS: PCP Family Medicine; Referring Provider Student in an Organized Health Care Education/Training Program; Visit Provider Student in an Organized Health Care Education/Training Program
DX: R19.5 Other fecal abnormalities (principal); K52.9 Noninfective gastroenteritis and colitis, unspecified
CPT/HCPCS: 74183; A9575; A4216; J1610

== ENCOUNTER 2025-05-18 05:37 | Day surgery (SDC) | payer MEDICARE, BC, SELFPAY ==
--- NOTE | 2025-05-17 15:05 | PAT.ANE_ITS ---
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 05/14/25 14:59 You/Your Family Experience No 05/14/25 14:59 fever (hyperthermia) with Relationship Recent Exposure to Contagious No 05/03/20 10:25 Disease Does patient have nerve No 05/14/25 14:59 stimulator Patient instructed to have device shut off --Does patient have Pacemaker or ICD? When Was Last Pacemaker Check QUESTION #4 FULL TEXT: You/Your Family Experience fever (hyperthermia) with Anesthesia Last Oral Intake Last Oral intake: Last Oral Intake NPO since Meds taken in AM with sips of water? Meds patient instructed to take am of surgery PONV PONV - day light relief operator: PONV - day light relief operator Female Yes 05/14/25 14:59 HX of Motion Sickness No 05/14/25 14:59 HX of N/V After Surgery No 05/14/25 14:59 Non-Smoker Yes 05/14/25 14:59 Duration of Surgery greater No 05/14/25 14:59 than 60 minutes Number of Risk Factors 2 05/14/25 14:59 PONV Score Moderate Risk 05/14/25 14:59 Height & Weight Height & Weight: Anesthesia: Height & Weight Height 5 ft 2 in 02/24/25 09:07 Respiratory Assessment Respiratory Assessment - day light relief operator: Respiratory Tract Infection Hx - day light relief operator Hx Respiratory Tract Infection No 05/14/25 14:59 STOP Sleep Apnea STOP Sleep Apnea - day light relief operator: STOP Sleep Apnea - day light relief operator Hx Hypertension Yes: CONTROLLED WITH MED 05/14/25 14:59 Hx Sleep Apnea No 05/14/25 14:59 CPAP No 05/14/25 14:59 BIPAP No 05/14/25 14:59 Do you snore loudly (louder No 05/14/25 14:59 than talking or can be heard Do you often feel tired/ Yes 05/14/25 14:59 fatigued/ sleepy during daytime? Has anyone observed you stop No 05/14/25 14:59 breathing during sleep? STOP Results Positive 05/14/25 14:59 QUESTION #5 FULL TEXT : Do you snore loudly (louder than talking or can be heard through closed doors)? 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 Specify any problems Hx of Preganancy in last 3 No 05/14/25 14:59 Months Nurse Filling Out Transfusion DSCHRIBER 05/14/25 14:59 & Questions: Date: 05/14/25 05/14/25 14:59 Time: 15:02 05/14/25 14:59 Patient unable to answer at this time (ie. confused, unrespo /Reproduction History /Reproductive History - day light relief operator: /Reproductive Hx- day light relief operator Hx Now No 05/14/25 14:59 Gestational Age (in weeks): EDC: Hx Hx Para Hx Section SAB No 05/14/25 14:59 Does the father of the baby or his family experience fever w Father of the baby Malignant Hypertension history comment PFSH Medical History (Updated 05/14/25 @ 15:14 by Gwendolyn Solano) Wears glasses Post-menopausal Depression Anxiety Insulin dependent diabetes mellitus Low iron Fatty liver Dietary restriction Gastric reflux Former smoker Bloated abdomen History of echocardiogram Cardiology follow-up encounter Seizures Hypertension ADD (attention deficit disorder) Heart murmur, systolic PRES (posterior reversible encephalopathy syndrome) Osteoporosis Rectocele Incomplete uterovaginal prolapse Home Medications ?Medication ?Instructions ?Recorded ?Last Taken ?Type ascorbic acid (vitamin C) 500 mg 1,000 mg PO DAILY sup plement 09/25/23 Unknown History capsule atorvastatin 20 mg tablet 20 mg PO QHS cholesterol #30 tabs 10/04/23 Unknown Rx bupropion HCl 150 mg 24 hr tablet, 150 mg PO DAILY moo d #30 tabs 10/04/23 Unknown Rx extended release fluoxetine 20 mg capsule (Prozac) 20 mg PO DAILY mood #30 caps 10/04/23 Unknown Rx cholecalciferol (vitamin D3) 50 25 mcg PO DAILY vitami n 01/31/24 Unknown History mcg (2,000 unit) capsule (Vitamin D3) insulin lispro 100 unit/mL 5 unit subcut TID diabetes 05/07/24 Unknown History subcutaneous pen (Humalog KwikPen (U-100) Insulin) lisinopril 20 1 tab PO QDAY blood pressure 05/07/24 Unknown History mg-hydrochlorothiazide 12.5 mg tablet insulin glargine 100 unit/mL (3 5 unit subcut QPM diab etes 07/26/24 Unknown History mL) subcutaneous pen (Lantus Solostar U-100 Insulin) metoprolol succinate 50 mg 50 mg PO QDAY #90 tabs 12/23 Unknown Rx tablet,extended release 24 hr (Toprol XL) omega-3 acid ethyl esters 1 gram 1 cap PO QDAY 5 Unknown History capsule omeprazole 40 mg capsule,delayed 40 mg PO QDAY #90 cap s 02/23/25 Unknown Rx release alprazolam 0.25 mg tablet 0.25 mg PO QDAY #1 TAB 04/28 Unknown Rx amlodipine 10 mg tablet 10 mg PO DAILY 05/14/25 Unkn own History metformin 500 mg tablet 1,000 mg PO DAILY diabetes 1 07/14/24 Unknown History Allergy/AdvReac Type Severity Reaction Status Date / Time oxycodone AdvReac Intermediate Other Verified 05/14/25 14:53 cyclobenzaprine (From AdvReac other Verified 05/14/25 14:53 Flexeril) Family History Father Arthritis Diabetes Myocardial infarction, Onset Age: 63 Heart disease Hypertension Sister Arthritis Diabetes Brother Diabetes Mental disorder Mother Hypertension Migraines Cerebral hemorrhage Surgical History (Updated 05/14/25 @ 15:14 by Gwendolyn Solano) Hx of colonoscopy H/O: hysterectomy History of hip surgery History of tubal ligation History of rectal sphincterotomy H/O: Social History household members: spouse number of children: 2 current occupational status: employed 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 alcohol intake: never substance use type: does not use caffeine: Yes what type of physical activity do you participate in: none frequency: does not exercise Audit: Pertinent Findings Pertinent Findings EKG Perinent findings: February 03, 2025. Normal sinus rhythm. LAFB. No significant change compared to EKG of July 26, 2024. Echo (EF%) pertinent findings: 11/24/2024. EF is 65%. Normal PA pressures. No aortic stenosis noted. Consult pertinent findings: February 03, 2025. Dr. Morales. 1. Heart murmur, systolic-this is an anterior motion of the mitral valve murmur. Fairly mild and considered benign. Will switch amlodipine to Toprol to slow down heart rate and decreased the murmur. 2. Benign essential hypertension-continue lisinopril/hydrochlorothiazide. Switch amlodipine to Toprol-XL. Recommendation Anesthesia Recommendation Anesthesia recommendation: OPTIMIZED for anesthesia
[2025-05-18] VITALS (9 sets, daily range): BP systolic 81–144; BP diastolic 48–76; PULSE 64–82; RESP 16–18; TEMP 36.2–36.8; O2SAT 94–98; BMI 26.4
--- OUTSIDE RECORDS SUMMARY | 2025-05-18 05:41 | XMS RPT_ITS | CCD ---
Author Organization [facility] Care Team Providers Care Geographic Analyst Name Role Phone HEYDI, SANJIT Unavailable Unavailable MUNJAPARA, VALJI Unavailable Unavailable MUNJAPARA, VALJI Unavailable Unavailable MUNJAPARA, VALJI Unavailable Unavailable Melanie Levy MD Primary Care Provider Dr. Javier Levy Primary Care Provider Dr. Javier Levy Referring Provider LOY Verduzco Attending Provider Melanie Levy MD Primary Care Provider Melanie Levy MD Primary Care Provider Dr. Javier Levy Primary Care Provider Dr. Javier Levy Referring Provider LOY Verduzco Attending Provider Dr. Javier Levy Primary Care Provider [phone] Dr. Jay Hernández Attending Provider Dr. Javier Levy Primary Care Provider Dr. Jay Hernández Attending Provider Melanie Levy MD Primary Care Provider HENRI DICKINSON Referring Unavailable MELANIE LEVY Primary Care UnavailMELANIE Monson Primary Care Unavailsean e DENICE TERRELL Referring Unavailable MELANIE LEVY Primary Care Unavailabl e RICHMOND PHOENIX Referring Unavailable JIE TERRY Attending Unavailable JIE TERRY Admitting Unavailable Dr. Melanie Levy Primary Care Provider [phone] Semenmarlys, Dr. Henri Polanco Admit Provider Semenmarlys, Dr. Henri Polanco Attending Provider Semenmarlys, Dr. Henri Polanco Other Provider MELANIE LEVY Primary Care Unavailabl Melanie Navarro MD Primary Care Provider POWER PAUL Attending Unavailable NIKOLE JARRELL Attending Unavailable NIKOLE JARRELL Attending Unavailable Cam ARIAS, Dr. Mora Primary Care Provider Dr. David Daniels DO Emergency Provider Dr. Mai Pérez MD Admit Provider Elisa ARIAS, Dr. Mai Perry Attending Provider Elisa ARIAS, Dr. Mai Perry Other Provider Elisa ARIAS, Dr. Mai Perry Referring Provider Dr. Marielena Roberts DO Attending Provider Dr. Marielena Roberts DO Other Provider Dr. Ramez Khan DO Attending Provider Dr. Melanie Levy MD Referring Provider Ivelisse Rain Attending Provider Ivelisse Rain Referring Provider Marli Varela Attending Provider Dr. Melanie Levy MD Other Provider [phone] Dr. Melanie Levy MD Attending Provider Dr. Melanie Levy MD Primary Care Provider Dr. David Daniels DO Emergency Provider [phone] Mai Pérez MD Admit Provider Dr. Mai Pérez MD Other Provider Dr. Marielena Roberts DO Other Provider Bill NEUMANN, Dr. Myrick Attending Provider Cam ARIAS, Dr. Mora Primary Care Provider Bill NEUMANN, Dr. Myrick Attending Provider Miguelito ARIAS, Dr. Putnam Attending Provider Cam ARIAS, Dr. Mora Primary Care Provider Cam ARIAS, Dr. Mora Referring Provider Ivelisse Rain Attending Provider Ivelisse Rain Referring Provider Luke Mast Attending Provider [phone] Luke Mast Referring Provider [phone] Andrew ARIAS, Dr. Marks Attending Provider [phone] King JUANA, Dr. Medina Attending Provider [phone]([facility])[phone] Mick DRILLER MACHINE-CMarli Attending Provider Cam ARIAS, Dr. Mora Primary Care Provider Dr. Melanie Levy MD Referring Provider [phone] Dr. Melanie Levy MD Attending Provider [phone] Mick DRILLER MACHINE-CMarli Referring Provider [phone] Ivelisse Rain Other Provider [phone]([phone] Luke Mast Referring Unavailable Luke Mast Attending Unavailable Ranney, Christopher Primary Care Unavailable Ranney, Christopher Referring Unavailable Kendrick Morales Attending Unavailable Ranney, Christopher Primary Care Unavailable Ivelisse Ramirez Consulting Unavailable aMrli Barton Referring Unavailable Marli Barton Attending Unavailable Raoulney, Christopher Primary Care Unavailable AtaIvelisse cassidy Referring Unavailable Ivelisse Ramirez Attending Unavailable Ranney, Christopher Primary Care Unavailable AtaIvelisse cassidy Attending Unavailable Ranney, Christopher Primary Care Unavailable Ranney, Christopher Referring Unavailable AtaIvelisse cassidy Attending Unavailable Ranney, Christopher Primary Care Unavailable Ranney, Christopher Referring Unavailable Friend, Ramez Attending Unavailable Ranney, Christopher Primary Care Unavailable Ranney, Christopher Referring Unavailable Marli Barton Attending Unavailable Ranney, Christopher Primary Care Unavailable Ranney, Christopher Referring Unavailable Ranney, Christopher Referring Unavailable Adam Alvarado Attending Unavailable Ranney, Christopher Primary Care Unavailable Ivelisse Ramirez Attending Unavailable Ranney, Christopher Referring Unavailable Ranney, Christopher Primary Care Unavailable White, Mai L Admitting Unavailable White, Mai L Referring Unavailable White, Mai L Attending Unavailable White, Mai L Consulting Unavailable Ranney, Christopher Primary Care Unavailable Jersey Farley Attending Unavailable Ranney, Christopher Primary Care Unavailable Marli Barton Attending Unavailable Ranney, Christopher Referring Unavailable Ranney, Christopher Primary Care Unavailable Ranney, Christopher Referring Unavailable Luke Mast Attending Unavailable Ranney, Christopher Primary Care Unavailable Ivelisse Ramirez Attending Unavailable Ivelisse Ramirez Referring Unavailable Ranney, Christopher Primary Care Unavailable Ivelisse Ramirez Referring Unavailable Ivelisse Ramirez Attending Unavailable Ranney, Christopher Primary Care Unavailable Ranney, Christopher Attending Unavailable Ranney, Christopher Primary Care Unavailable Ranney, Christopher Referring Unavailable Marielena Roberts Attending Unavailable White, Mai L Admitting Unavailable White, Mai L Referring Unavailable White, Mai L Consulting Unavailable Ranney, Christopher Primary Care Unavailable FriendRamez Attending Unavailable Ranney, Christopher Referring Unavailable Ranney, Christopher Primary Care Unavailable Ivelisse Ramirez Attending Unavailable Ivelisse Ramirez Referring Unavailable Ranney, Christopher Primary Care Unavailable Ivelisse Ramirez Attending Unavailable Ranney, Christopher Primary Care Unavailable Ranney, Christopher Referring Unavailable Ivelisse Ramirez Attending Unavailable Ivelisse Ramirez Referring Unavailable Ranney, Christopher Primary Care Unavailable Ivelisse Ramirez Attending Unavailable Ivelisse Ramirez Referring Unavailable Ranney, Christopher Primary Care Unavailable Ranney, Christopher Consulting Unavailable Ranney, Christopher Primary Care Unavailable Ranney, Christopher Referring Unavailable Ranney, Christopher Attending Unavailable Power Paul Referring Unavailable Power Paul Attending Unavailable Ranney, Christopher Primary Care Unavailable Marielena Roberts Attending Unavailable White, Mai L Consulting Unavailable White, Mai L Admitting Unavailable Mai Pérez Referring Unavailable Melanie Levy Primary Care Unavailable Marielena Roberts Consulting Unavailable Friend, Ramez Attending Unavailable Marli Barton Attending [facility]available [facility] Unavailable Ivelisse Ramirez Referring Unavailable Ivelisse Ramirez Attending Unavailable Melanie Levy Primary [facility] Unavailable Allergies Allergy Classification Reported Allergen(s) Allergy Type Date of Onset Reaction(s) Facility (20 sources) cyclobenzaprine; Translations: [CYCLOBENZAPRINE] Drug Allergy 0 Other: See Comments, Mental Status Change [facility] Comment on above: Hallucinations (20 sources) oxyCODONE Drug Allergy 4 Mental Status Change [facility] Comment on above: hallucinations (1 source) cyclobenzaprine Drug Allergy 5 [facility] Repository (1 source) oxyCODONE Drug Allergy 5 [facility] Medications Current Medications Medication Drug [...] Tablet Active 20 mg PO AT BEDTIME 30 0 October 04, 2023 12:00am cholesterol TAKE THIS MEDICATION AT SUPPER 24 hr buPROPion hydrochloride 150 mg extended release oral tablet (20 sources) Aminoketone Start: 10-04-2023 take 1 tablet by mouth once daily Bupropion Hcl 150 mg Tablet Extended Release 24 Hr Active 150 mg PO DAILY 30 0 October 04, 2023 12:00am mood carvedilol 12.5 [...] 325 mg PO EVERY OTHER DAY 30 October 04, 2023 2:59pm May 07, 2024 11:53am iron TAKE THIS WITH BREAKFAST AND A VITAMIN C Comment on above: Take 1 tablet by sarai th every other day. 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 14 tablet 0 09/25/2021 10/09/2021 Active Comment on above: Take 1 tablet by sarai th once daily for 14 days. FLUoxetine 20 mg oral capsule (20 sources) Serotonin Reuptake Inhibitor Start: End: 4 take 1 capsule by mouth once daily FLUoxetine (PROZAC) 20 mg capsule 1 capsule by ORAL/FEEDING TUBE route once daily. 30 capsule 0 09/26/2023 10/26/2023 Active Start: 09-25-2023 End: 10-04-2023 take 1 capsule by mouth once daily at breakfast Fluoxetine (Prozac) 20 mg capsule Active 20 mg PO DAILY 30 October 04, 2023 2:59pm mood TAKE WITH BREAKFAST Comment on above: 1 capsule by ORAL/FE EDING TUBE route once daily. gabapentin 100 mg oral capsule (20 sources) Anti-epileptic Agent Start: 10-04-19 take 1 capsule by mouth at bedtime for pain Gabapentin 100 mg Capsule Active 100 mg PO AT BEDTIME 30 October 04, 2023 12:00am nerve pain TAKE [...] Degludec Active 15 UNIT SC AT BEDTIME October 04, 2023 2:59pm 15 UNITS AT [...] 2023 8:41pm heart take 1 tablet by sarai th once daily metoprolol tartrate, short acting, (LOPRESSOR) 50 mg tablet Take 50 mg by mouth once daily. 0 Suspended take 1 tablet by sarai th twice daily metoprolol tartrate, short acting, (LOPRESSOR) 50 mg tablet Take 50 mg by mouth twice daily. 0 Active Comment on above: Take 50 mg by mouth twice daily. Take 50 mg by mouth once daily. omega-3 acid ethyl esters (shelter) 1000 mg oral capsule (20 sources) Start: 02-03-2025 Albia-3 Acid Ethyl Esters 1 gram capsule Active 1 NMA PO daily February 03, 2025 12:00am Start: 05-08-2019 End: 01-25-2025 take 1 capsule by mouth once daily Albia-3 Acid Ethyl Esters (Lovaza) 1 gram capsule Discontinued 1 NMA PO DAILY 30 0 October 04, 2023 2:59pm January 25, 2025 [...] Discontinued 2 PUFF INHALATION EVERY 6 HOURS 8.June 29, 2018 1:00am July 12, 2018 2:21pm [...] 3:31pm heart take 1 tablet by sarai th once daily aspirin 325 mg tablet Take [...] mg oral tablet (17 sources) Benzodiazepine Start: End: take 2.5 mg by mouth three [...] dose nasal spray (20 sources) Corticosteroid Start: End: take 50 ug nasal route once [...] Tablet Discontinued 2.5 mg PO BID@0730,1630 30 0 October 04, 2023 12:00am May 07, 2024 [...] Discontinued 15 U SC AT BEDTIME 2 October 04, 2023 2:59pm July 26, 2024 [...] pack Discontinued 0 PO per package directions 21 0 June 29, 2018 1:00am July 12, [...] Comment on above: Take 1 capsule by [facility] twice daily for 5 days. Take 1 capsule by [facility] twice daily with meals for 7 days. Omeprazole 40 mg capsule,delayed release(DR/EC) (5 sources) Start: 02-03-2025 End: 02-23-2025 take 1 capsule by mouth once daily Omeprazole 40 mg capsule,delayed release(DR/EC) Discontinued 40 mg PO daily February 03, 2025 12:00am February 23, 2025 9:22am Start: 02-03-2025 take 1 capsule by [facility] once daily Omeprazole 40 mg capsule,delayed release(DR/EC) [...] tablet Discontinued 100 mg PO DAILY 30 1 May 21, 2019 1:00am July 16, 2019 [...] initial encounter for closed fracture] 03-02-2020 Episodic Genitourinary symptoms and ill-defined conditions (20 sources) Beltran hematuria; Translations: [Gross hematuria] Onset: 3 Episodic Hypertension with complications and secondary hypertension [...] fecal abnormalities] 02-23-2025 Episodic Other gastrointestinal disorders (2 sources) Other fecal abnormalities; Translations: [Other fecal abnormalities] Onset: Episodic Other liver diseases (14 sources) 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 Unclassified (3 sources) Appointment will be with LOY Ramirez Urinary tract infections (20 sources) Urinary tract infectious disease; Translations: [Urinary tract infection, site not specified] Onset: 2 Episodic Past or Other Problems Problem Classification Problem Date Documented Da te Episodic/Chronic Gastrointestinal hemorrhage (20 sources) Gastrointestinal hemorrhage; Translations: [Gastrointestinal hemorrhage, unspecified] Onset: 5 04-21-2020 Episodic Heart valve disorders (20 sources) Heart murmur; Translations: [Cardiac murmur, unspecified] Onset: 3 03-25-2023 Episodic Other aftercare (1 source) 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; Translations: [Type 2 diabetes mellitus with other specified complication, with long-term current use of insulin (HCC)] Onset: 1 Episodic Other screening for suspected conditions (not mental disorders or infectious disease) (6 sources) Echocardiogram abnormal; Translations: [Abnormal findings on diagnostic imaging of heart and coronary circulation] Onset: 5 01-25-2025 Episodic Residual codes; unclassified (9 sources) Health management deficit; Translations: [Other specified personal risk factors, not elsewhere classified] Onset: 8 02-21-2024 Episodic Screening and history of mental health and substance abuse codes (20 sources) H/O: anxiety state; Translations: [Personal history of other mental and behavioral disorders] Onset: 6 01-04-2016 Episodic Syncope (17 sources) Syncope; Translations: [Syncope and collapse] Onset: 5 08-06-2024 Episodic Unclassified (20 sources) Contusion of right knee, initial encounter 03-02-2020 Results Test Name Value Interpretation Reference Range Facility Enterography Abd/Jewel 05-05 Enterography Abd/Pel Normal [facility] Calprotectin, Stoolon [address] 185 ug/g Abnormal 0-120 [facility] Comment on above: Result Comment: Conc entration Interpretation Follow-Up< 5 - 50 ug/g Normal None>50 -120 ug/g Borderline Re-evaluate in 4-6 weeks >120 ug/g Abnormal Repeat as clinically indicatedPerformed at: - [facility] [id number] [place], [place] [id number] Director: Violette Morton MD, Phone: [phone] Performed By: #### L 7000.0700 ####[facility] [address] [place], [address] Absolute lymphocyte countOrd ered By: Ivelisse Ramirez on 02-24-2025 Lymphocytes Auto (Unsp spec) [#/Vol] 3.20 10*3/uL 0.83-4.51 [facility] Absolute neutrophil countOrd ered By: Ivelisse Ramirez on 02-24-2025 Neutrophils (Bld) [#/Vol] 4.1 10*3/uL 2.0-7.7 [facility] Anion gap in Serum or Plasma Ordered By: Marli Barton on 02-24-2025 Anion gap [Moles/Vol] 10 mmol/L 5- [facility] Automated lymphocyte count a s percentage of total leukocytesOrdered By: Ivelisse Ramirez on 02-24-2025 Lymphocytes/100 WBC Auto (Unsp spec) 40.3 % - [facility] BUN/creatinine ratioOrdered By: Marli Barton on 02-24-2025 Urea nitrogen/Creatinine [Mass ratio] 17.5 mg/mg 10-20 [facility] Basophil percentageOrdered B y: Ivelisse Ramirez on 02-24-2025 Basophils/100 WBC (Bld) 0.5 % 0-1 [facility] Bilirubin, totalOrdered By: Marli Barton on 02-24-2025 Bilirubin [Mass/Vol] 0.40 mg/dL 0.00-1.30 [facility] CBC W/Diff, Automatedon 01-30 Absolute Lymph 3.20 X10 3/uL Normal 0.83-4.51 [facility] Comment on above: Order Comment: SEND ALL THE WELL PER PT Performed By: #### L 503.6030, L503.6550, L100.0100 ####[facility] [address] [place], [address] Absolute Neut 4.1 X10 3/uL Normal 2.0-7.7 [facility] Comment on above: Order Comment: SEND ALL THE WELL PER PT Performed By: #### L 503.6030, L503.6550, L100.0100 ####[facility] [address] [place], [address] Basophils/100 WBC (Bld) 0.5 % Normal 0-1 [facility] Comment on above: Order Comment: SEND ALL THE WELL PER PT Performed By: #### L 503.6030, L503.6550, L100.0100 ####[facility] [address] [place], [address] Eosinophils/100 WBC (Bld) 2.6 % Normal 0-5 [facility] Comment on above: Order Comment: SEND ALL THE WELL PER PT Performed By: #### L 503.6030, L503.6550, L100.0100 ####[facility] [address] [place], [address] Erythrocyte distribution width (RBC) [Ratio] 12.7 % Normal 11.6-14.6 [facility] Comment on above: Order Comment: SEND ALL THE WELL PER PT Performed By: #### L 503.6030, L503.6550, L100.0100 ####[facility] [address] [place], [address] Hematocrit (Bld) [Volume fraction] 39.6 % Normal 37-47 [facility] Comment on above: Order Comment: SEND ALL THE WELL PER PT Performed By: #### L 503.6030, L503.6550, L100.0100 ####[facility] [address] [place], [address] Hemoglobin (Bld) [Mass/Vol] 13.7 g/dL Normal 12.0-15.0 [facility] Comment on above: Order Comment: SEND ALL THE WELL PER PT Performed By: #### L 503.6030, L503.6550, L100.0100 ####[facility] [address] [place], [address] IG% 0.300 Normal 0.0-0.9 [facility] Comment on above: Order Comment: SEND ALL THE WELL PER PT Result Comment: IG% - Immature Granulocytes (promyelocytes, myelocytes andmetamyelocytes) > 1% indicates that a LEFT SHIFT is Present. Performed By: #### L 503.6030, L503.6550, L100.0100 ####[facility] [address] [place], [address] Lymphocytes/100 WBC (Bld) 40.3 % Normal 19-41 [facility] Comment on above: Order Comment: SEND ALL THE WELL PER PT Performed By: #### L 503.6030, L503.6550, L100.0100 ####[facility] [address] [place], [address] MCH (RBC) [Entitic mass] 28.9 pg Normal 27.0-32.0 [facility] Comment on above: Order Comment: SEND ALL THE WELL PER PT Performed By: #### L 503.6030, L503.6550, L100.0100 ####[facility] [address] [place], [address] MCHC (RBC) [Mass/Vol] 34.6 g/dL Normal 32-36 [facility] Comment on above: Order Comment: SEND ALL THE WELL PER PT Performed By: #### L 503.6030, L503.6550, L100.0100 ####[facility] [address] [place], [address] MCV (RBC) [Entitic vol] 83.5 fL Normal 81-99 [facility] Comment on above: Order Comment: SEND ALL THE WELL PER PT Performed By: #### L 503.6030, L503.6550, L100.0100 ####[facility] [address] [place], [address] Monocytes/100 WBC (Bld) 4.7 % Normal 0-10 [facility] Comment on above: Order Comment: SEND ALL THE WELL PER PT Performed By: #### L 503.6030, L503.6550, L100.0100 ####[facility] [address] [place], [address] Neutrophils/100 WBC (Bld) 51.6 % Normal 47-70 [facility] Comment on above: Order Comment: SEND ALL THE WELL PER PT Performed By: #### L 503.6030, L503.6550, L100.0100 ####[facility] [address] [place], [address] Nucleated RBC (Bld) [#/Vol] 0 10*3/uL Normal 0-5 [facility] Comment on above: Order Comment: SEND ALL THE WELL PER PT Performed By: #### L 503.6030, L503.6550, L100.0100 ####[facility] [address] [place], [address] Platelet mean volume (Bld) [Entitic vol] 10.1 fL Normal 6.2-12.0 [facility] Comment on above: Order Comment: SEND ALL THE WELL PER PT Performed By: #### L 503.6030, L503.6550, L100.0100 ####[facility] [address] [place], [address] Platelets (Bld) [#/Vol] 208 10*3/uL Normal 150-450 [facility] Comment on above: Order Comment: SEND ALL THE WELL PER PT Performed By: #### L 503.6030, L503.6550, L100.0100 ####[facility] [address] [place], [address] RBC (Bld) [#/Vol] 4.74 10*6/uL Normal 4.2-5.4 [facility] Comment on above: Order Comment: SEND ALL THE WELL PER PT Performed By: #### L 503.6030, L503.6550, L100.0100 ####[facility] [address] [place], [address] RDW SD 38.5 fl Normal 35.1-43.9 [facility] Comment on above: Order Comment: SEND ALL THE WELL PER PT Performed By: #### L 503.6030, L503.6550, L100.0100 ####[facility] [address] [place], [address] WBC (Bld) [#/Vol] 7.9 10*3/uL Normal 4.4-11.0 [facility] Comment on above: Order Comment: SEND ALL THE WELL PER PT Performed By: #### L 503.6030, L503.6550, L100.0100 ####[facility] [address] [place], [address] Calculated very low density lipoprotein (VLDL) cholesterol measurementOrdered By: Marli Barton on 02-24-2025 Calculated very low density lipoprotein (VLDL) cholesterol measurement 63 mg/dL High 5-40 [facility] Carbon dioxide, total [Moles /volume] in Central venous bloodOrdered By: Marli Barton on 02-24-2025 CO2 [Moles/Vol] 24.9 mmol/L 21.0-32.0 [facility] Chloride assayOrdered By: Me almaz Barton on 02-24-2025 Chloride [Moles/Vol] 102 mmol/L 98-108 [facility] Comprehensive Metabolic Prof ilon 02-24-2025 Albumin [Mass/Vol] 3.9 g/dL Normal 3.4-4.8 [facility] Comment on above: Order Comment: SEND ALL TO DR.RANNEY CRUZWELL PER PT Performed By: #### L 500.4050, L501.9520, L500.4100, L502.0250, L506.1001 ####[facility] [address] [place], [address] Albumin/Globulin [Mass ratio] 1.3 {ratio} Normal 0.9-2.4 [facility] Comment on above: Order Comment: SEND ALL TO DR.RANNEY YAO PER PT Performed By: #### L 500.4050, L501.9520, L500.4100, L502.0250, L506.1001 ####[facility] [address] [place], [address] ALK PHOS 115 U/L High 35-104 [facility] Comment on above: Order Comment: SEND ALL TO DR.RANNEY YAO PER PT Performed By: #### L 500.4050, L501.9520, L500.4100, L502.0250, L506.1001 ####[facility] [address] [place], [address] ALT [Catalytic activity/Vol] 14 U/L Normal <=34 [facility] Comment on above: Order Comment: SEND ALL TO DR.RANNEY YAO PER PT Performed By: #### L 500.4050, L501.9520, L500.4100, L502.0250, L506.1001 ####[facility] [address] [place], [address] AST [Catalytic activity/Vol] 17 U/L Normal <=31 [facility] Comment on above: Order Comment: SEND ALL TO DR.RANNEY YAO PER PT Performed By: #### L 500.4050, L501.9520, L500.4100, L502.0250, L506.1001 ####[facility] [address] [place], [address] Bilirubin [Mass/Vol] 0.40 mg/dL Normal 0.00-1.30 [facility] Comment on above: Order Comment: SEND ALL TO DR.RANNEY YAO PER PT Performed By: #### L 500.4050, L501.9520, L500.4100, L502.0250, L506.1001 ####[facility] [address] [place], [address] BUN/CRE 17.5 RATIO Normal 10-20 [facility] Comment on above: Order Comment: SEND ALL TO DR.RANNEY YAO PER PT Performed By: #### L 500.4050, L501.9520, L500.4100, L502.0250, L506.1001 ####[facility] [address] [place], [address] Calcium [Mass/Vol] 9.1 mg/dL Normal 7.6-11.0 [facility] Comment on above: Order Comment: SEND ALL TO DR.RANNEY YAO PER PT Performed By: #### L 500.4050, L501.9520, L500.4100, L502.0250, L506.1001 ####[facility] [address] [place], [address] Chloride [Moles/Vol] 102 mmol/L Normal 98-108 [facility] Comment on above: Order Comment: SEND ALL TO DR.RANNEY YAO PER PT Performed By: #### L 500.4050, L501.9520, L500.4100, L502.0250, L506.1001 ####[facility] [address] [place], [address] CO2 [Moles/Vol] 24.9 mmol/L Normal 21.0-32.0 [facility] Comment on above: Order Comment: SEND ALL TO DR.RANNEY YAO PER PT Performed By: #### L 500.4050, L501.9520, L500.4100, L502.0250, L506.1001 ####[facility] [address] [place], [address] Creatinine [Mass/Vol] 0.91 mg/dL Normal 0.70-1.20 [facility] Comment on above: Order Comment: SEND ALL TO DR.RANNEY YAO PER PT Performed By: #### L 500.4050, L501.9520, L500.4100, L502.0250, L506.1001 ####[facility] [address] [place], [address] GAP 10 Normal 5-15 [facility] Comment on above: Order Comment: SEND ALL TO DR.RANNEY YAO PER PT Performed By: #### L 500.4050, L501.9520, L500.4100, L502.0250, L506.1001 ####[facility] [address] [place], [address] GFR/1.73 sq M.predicted among non-blacks MDRD (S/P/Bld) [Vol rate/Area] 70 mL/min/{1.73_m2} Normal >60 [facility] Comment on above: Order Comment: SEND ALL TO DR.RANNEY YAO PER PT Result Comment: mL/m in/1.73m2 CKD-EPI Creatinine Equation (2020) Performed By: #### L 500.4050, L501.9520, L500.4100, L502.0250, L506.1001 ####[facility] [address] [place], [address] Globulin (S) [Mass/Vol] 3.1 g/dL Normal 2.2-4.2 [facility] Comment on above: Order Comment: SEND ALL TO DR.RANNEY YAO PER PT Performed By: #### L 500.4050, L501.9520, L500.4100, L502.0250, L506.1001 ####[facility] [address] [place], [address] Glucose [Mass/Vol] 206 mg/dL High 70-99 [facility] Comment on above: Order Comment: SEND ALL TO DR.RANNEY YAO PER PT Performed By: #### L 500.4050, L501.9520, L500.4100, L502.0250, L506.1001 ####[facility] [address] [place], [address] Potassium [Moles/Vol] 4.2 mmol/L Normal 3.3-5.1 [facility] Comment on above: Order Comment: SEND ALL TO DR.RANNEY YAO PER PT Performed By: #### L 500.4050, L501.9520, L500.4100, L502.0250, L506.1001 ####[facility] [address] [place], [address] Sodium [Moles/Vol] 138 mmol/L Normal 133-145 [facility] Comment on above: Order Comment: SEND ALL TO DR.RANNEY YAO PER PT Performed By: #### L 500.4050, L501.9520, L500.4100, L502.0250, L506.1001 ####[facility] [address] [place], [address] T PROT 6.9 g/dL Normal 5.9-8.4 [facility] Comment on above: Order Comment: SEND ALL TO DR.RANNEY YAO PER PT Performed By: #### L 500.4050, L501.9520, L500.4100, L502.0250, L506.1001 ####[facility] [address] [place], [address] Urea nitrogen [Mass/Vol] 16 mg/dL Normal 4-19 [facility] Comment on above: Order Comment: SEND ALL TO DR.RANNEY YAO PER PT Performed By: #### L 500.4050, L501.9520, L500.4100, L502.0250, L506.1001 ####[facility] [address] [place], [address] Endocrinology Visit Reporton 02-24-2025 Endocrinology Visit Report Normal [facility] Eosinophil percentageOrdered By: Ivelisse Ramirez on 02-24-2025 Eosinophils/100 WBC (Bld) 2.6 % 0-5 [facility] Erythrocyte distribution wid th ratioOrdered By: Ivelisse Ramirez on 02-24-2025 Erythrocyte distribution width (RBC) [Ratio] 12.7 % 11.6-14.6 [facility] Erythrocyte distribution wid th standard deviationOrdered By: Ivelisse Ramirez on 02-24-2025 Erythrocyte distribution width (RBC) [Ratio] 38.5 fl 35.1-43.9 [facility] Ferritinon 02-24-2025 Ferritin [Mass/Vol] 42 ng/mL Normal 22-378 [facility] Comment on above: Order Comment: SEND ALL THE WELL PER PT Performed By: #### L 503.6030, L503.6550, L100.0100 ####[facility] [address] [place], [place], [address] Glomerular filtration rate ( GFR) estimation/1.73 sq m using serum, plasma, or whole bOrdered By: Marli Barton on 02-24-2025 GFR/1.73 sq M.predicted among non-blacks MDRD (S/P/Bld) [Vol rate/Area] 70 mL/min/{1.73_m2} >60 [facility] Comment on above: mL/min/1.73m2 CKD-EP I Creatinine Equation (2020) Hematocrit Auto (Bld) [Volum e fraction]Ordered By: Ivelisse Ramirez on 02-24-2025 Hematocrit (Bld) [Volume fraction] 39.6 % 37-47 [facility] Hemoglobin measurementOrdere d By: Ivelisse Ramirez on 02-24-2025 Hemoglobin (Bld) [Mass/Vol] 13.7 g/dL 12.0-15.0 [facility] Immature granulocytes/100 WB C Auto (Bld)Ordered By: Ivelisse Ramirez on 02-24-2025 Immature granulocytes/100 WBC (Bld) 0.300 % 0.0-0.9 [facility] Comment on above: IG% - Immature Granu locytes (promyelocytes, myelocytes and metamyelocytes) > 1% indicates that a LEFT SHIFT is Present. Iron measurement (mass/mass) Ordered By: Ivelisse Ramirez on 02-24-2025 Iron (Unsp spec) [Mass/Mass] 80 ug/dL 50-170 [facility] Iron+Iron Binding Capacityon 02-24-2025 Iron [Mass/Vol] 80 ug/dL Normal 50-170 [facility] Comment on above: Order Comment: SEND ALL THE WELL PER PT Performed By: #### L 503.6030, L503.6550, L100.0100 ####[facility] [address] [place], [address] IRON SATURATION 25.0 Normal 13-59 [facility] Comment on above: Order Comment: SEND ALL THE WELL PER PT Performed By: #### L 503.6030, L503.6550, L100.0100 ####[facility] [address] [place], [address] TIBC 321 ug/dL Normal 250-450 [facility] Comment on above: Order Comment: SEND ALL THE WELL PER PT Performed By: #### L 503.6030, L503.6550, L100.0100 ####[facility] [address] [place], [address] UIBC 241 ug/dL Normal 228-428 [facility] Comment on above: Order Comment: SEND ALL THE WELL PER PT Performed By: #### L 503.6030, L503.6550, L100.0100 ####[facility] [address] [place], [address] LDL calc ser/plasOrdered By: Marli Barton on 02-24-2025 Cholesterol in LDL [Mass/Vol] 36 mg/dL [facility] Comment on above: Dryjfekykl=860-512 m g/dL & Higher Kmly=124 mg/dL or greaterFriedwald Equation for LDL-C Laboratory - Chemistry and C hemistry - challengeOrdered By: Marli Barton on 02-24-2025 AST [Catalytic activity/Vol] 17 U/L <32 [facility] Laboratory - Hematology and Cell countsOrdered By: Marli Barton on 02-24-2025 HbA1c (Bld) [Mass fraction] 8.2 % High 4.2-6.3 [facility] Lipid Profileon 02-24-2025 CHOL:HDL 3.68 Normal [facility] Comment on above: Order Comment: SEND ALL TO DR.RANNEY YAO PER PT Performed By: #### L 500.4050, L501.9520, L500.4100, L502.0250, L506.1001 ####[facility] [address] [place], [place], [id number]) Cholesterol [Mass/Vol] 136 mg/dL Normal <=200 [facility] Comment on above: Order Comment: SEND ALL TO DR.RANNEY YAO PER PT Result Comment: Chol esterol level, Desirable <200 mg/dLBorderline high cholesterol 200-239 mg/dLHigh cholesterol >=240 mg/dLRecommendations of the NCEP Adult Treatment Panel for thefollowing risk-cutoff thresholds for the [place] Americanpulation. Performed By: #### L 500.4050, L501.9520, L500.4100, L502.0250, L506.1001 ####[facility] [address] [place], [address] Cholesterol in HDL [Mass/Vol] 37 mg/dL Low [facility] Comment on above: Order Comment: SEND ALL TO DR.RANNEY YAO PER PT Result Comment: Abigail onal Cholesterol Education Program (NCEP) guidelines:<40 mg/dL: Low HDL-cholesterol (major risk factor for CHD)>= 60 mg/dL: High HDL-cholesterol (negative risk factor forCHD)HDL-cholesterol is affected by a number of factors, e.g.smoking, exercise, hormones, sex and age. Performed By: #### L 500.4050, L501.9520, L500.4100, L502.0250, L506.1001 ####[facility] [address] [place], [address] Cholesterol in LDL [Mass/Vol] 36 mg/dL Normal [facility] Comment on above: Order Comment: SEND ALL TO DR.RANNEY YAO PER PT Result Comment: Bord uubhfa=050-886 mg/dL Higher Pzgs=592 mg/dL or greaterFriedwald Equation for LDL-C Performed By: #### L 500.4050, L501.9520, L500.4100, L502.0250, L506.1001 ####[facility] [address] [place], [address] Cholesterol in VLDL [Mass/Vol] 63 mg/dL High 5-40 [facility] Comment on above: Order Comment: SEND ALL TO DR.RANNEY YAO PER PT Performed By: #### L 500.4050, L501.9520, L500.4100, L502.0250, L506.1001 ####[facility] [address] [place], [address] Triglyceride [Mass/Vol] 316 mg/dL High [facility] Comment on above: Order Comment: SEND ALL TO DR.RANNEY YAO PER PT Result Comment: The drugs N-Acetylcysteine and Metamizole may falselydepress this assay.Normal range: <150 mg/dLBorderline High: 150-199 mg/dLHigh: 200-499 mg/dLVery High: >500 mg/dL Performed By: #### L 500.4050, L501.9520, L500.4100, L502.0250, L506.1001 ####[facility] [address] [place], [address] MCV (mean corpuscular volume ) determinationOrdered By: Ivelisse Ramirez on 02-24-2025 MCV (RBC) [Entitic vol] 83.5 fL 81-99 [facility] Mean corpuscular hemoglobin (MCH) determinationOrdered By: Ivelisse Ramirez on 02-24-2025 MCH (RBC) [Entitic mass] 28.9 pg 27.0-32.0 [facility] Mean corpuscular hemoglobin concentration (MCHC) determinationOrdered By: Ivelisse Ramirez on 02-24-2025 MCHC (RBC) [Mass/Vol] 34.6 g/dL 32-36 [facility] Mean platelet volume determi nationOrdered By: Ivelisse Ramirez on 02-24-2025 Platelet mean volume (Bld) [Entitic vol] 10.1 fL 6.2-12.0 [facility] Microalb:Creat Ratio,Random URon 02-24-2025 MICROALBUMIN,UR 511.0 mg/L Normal <20 mg/L [facility] Comment on above: Order Comment: SEND ALL THE WELL PER PT Performed By: #### L 500.4050, L501.9520, L500.4100, L502.0250, L506.1001 ####[facility] [address] [place], [place], [address] Monocyte percentageOrdered B y: Ivelisse Ramirez on 02-24-2025 Monocytes/100 WBC (Bld) 4.7 % 0-10 [facility] Neutrophil percentageOrdered By: Ivelisse Ramirez on 02-24-2025 Neutrophils/100 WBC (Bld) 51.6 % 47-70 [facility] No Panel InformationOrdered By: Ivelisse Ramirez on 02-24-2025 Unsaturated Iron Binding Capacity 241 ug/dL 228-428 [facility] Nucleated red blood cell per centageOrdered By: Ivelisse Ramirez on 02-24-2025 Nucleated RBC/100 WBC (Bld) [Ratio] 0 % 0-5 [facility] Platelet countOrdered By: Acacia Ramirez on 02-24-2025 Platelets (Bld) [#/Vol] 208 10*3/uL 150-450 [facility] Potassium measurement (mass/ volume)Ordered By: Marli Barton on 02-24-2025 Potassium (Unsp spec) [Mass/Vol] 4.2 mmol/L 3.3-5.1 [facility] RBC Auto (Bld) [#/Vol]Ordere d By: Ivelisse Ramirez on 02-24-2025 RBC (Bld) [#/Vol] 4.74 10*6/uL 4.2-5.4 [facility] Random urine creatinine nya urement (mass/volume)Ordered By: Marli Barton on 02-24-2025 Creatinine Unsp time (U) [Mass/Vol] 162.00 mg/dL 28.00-217.00 [facility] Comment on above: Previous reported re sult: 161.00 mg/dLEdited by: POOJA on 02/24/25:1512 AMENDED REPORT 02/24/251511 UR CREAT previously reported as: 161.00 mg/dL Screening total cholesterol/ high density lipoprotein (HDL) cholesterol ratioOrdered By: Marli Barton on 02-24-2025 Cholesterol.total/Cho lesterol in HDL [Mass ratio] 3.68 {ratio} [facility] Serum creatinine measurement (mass/volume)Ordered By: Marli Barton on 02-24-2025 Creatinine [Mass/Vol] 0.91 mg/dL 0.70-1.20 [facility] Serum globulin measurementOr dered By: Marli Barton on 02-24-2025 Globulin (S) [Mass/Vol] 3.1 g/dL 2.2-4.2 [facility] Serum glucose measurement (m ass/volume)Ordered By: Marli Barton on 02-24-2025 Glucose [Mass/Vol] 206 mg/dL High 70-99 [facility] Serum or plasma alanine adams otransferase (ALT) measurementOrdered By: Marli Barton on 02-24-2025 ALT [Catalytic activity/Vol] 14 U/L <35 [facility] Serum or plasma albumin nya urement (mass/volume)Ordered By: Marli Barton on 02-24-2025 Albumin [Mass/Vol] 3.9 g/dL 3.4-4.8 [facility] Serum or plasma albumin/glob ulin mass ratioOrdered By: Marli Barton on 02-24-2025 Albumin/Globulin [Mass ratio] 1.3 {ratio} 0.9-2.4 [facility] Serum or plasma alkaline saleem sphatase measurementOrdered By: Marli Barton on 02-24-2025 ALP [Catalytic activity/Vol] 115 U/L High 35-104 [facility] Serum or plasma calcium nya urement (mass/volume)Ordered By: Marli Barton on 02-24-2025 Calcium [Mass/Vol] 9.1 mg/dL 7.6-11.0 [facility] Serum or plasma cholesterol in HDL measurement (mass/volume)Ordered By: Marli Barton on 02-24-2025 Cholesterol in HDL [Mass/Vol] 37 mg/dL Low >40 [facility] Comment on above: National Cholesterol Education Program (NCEP) guidelines:<40 mg/dL: Low HDL-cholesterol (major risk factor for CHD)>= 60 mg/dL: High HDL-cholesterol (negative risk factor for CHD)HDL-cholesterol is affected by a number of factors, e.g. smoking, exercise, hormones, sex and age. Serum or plasma cholesterol measurement (mass/volume)Ordered By: Marli Barton on 02-24-2025 Cholesterol [Mass/Vol] 136 mg/dL <201 [facility] Comment on above: Cholesterol level, D esirable <200 mg/dLBorderline high cholesterol 200-239 mg/dLHigh cholesterol >=240 mg/dLRecommendations of the NCEP Adult Treatment Panel for the following risk-cutoff thresholds for the [place] population. Serum or plasma ferritin connie surement (mass/volume)Ordered By: Ivelisse Ramirez on 02-24-2025 Ferritin [Mass/Vol] 42 ng/mL 22-378 [facility] Serum or plasma iron saturat ion measurement (mass fraction)Ordered By: Ivelisse Ramirez on 02-24-2025 Iron saturation [Mass fraction] 25.0 % 13-59 [facility] Serum or plasma urea nitroge n measurement (mass/volume)Ordered By: Marli Barton on 02-24-2025 Urea nitrogen [Mass/Vol] 16 mg/dL 4-19 [facility] Sodium levelOrdered By: Ovidio Barton on 02-24-2025 Sodium [Moles/Vol] 138 mmol/L 133-145 [facility] TSH DL <= 0.005 mIU/L QnOrde red By: Marli Barton on 02-24-2025 TSH Qn 0.892 uIU/mL 0.300-4.200 [facility] Thyroid Stim Hormone (TSH)on 02-24-2025 TSH 0.892 uIU/mL Normal 0.300-4.200 [facility] Comment on above: Order Comment: SEND ALL TO DR.RANNEY YAO PER PT Performed By: #### L 500.4050, L501.9520, L500.4100, L502.0250, L506.1001 ####[facility] [address] [place], [place], [id number] Total proteinOrdered By: Ivana Barton on 02-24-2025 Protein [Mass/Vol] 6.9 g/dL 5.9-8.4 [facility] Triglycerides measurementOrd ered By: Marli Barton on 02-24-2025 Triglyceride [Mass/Vol] 316 mg/dL High <199 [facility] Comment on above: The drugs N-Acetylcy steine and Metamizole may falsely depress this assay. Normal range: <150 mg/dLBorderline High: 150-199 mg/dLHigh: 200-499 mg/dLVery High: >500 mg/dL Urine albumin measurement [facility] detection limit of 20 mg/L or less (mass/volume)Ordered By: Marli Barton on 02-24-2025 Albumin DL <= 20 mg/L (U) [Mass/Vol] 511.0 mg/L <20 mg/L [facility] Vitamin D,25 Hydroxyon 02-24 Vitamin D 25-OH 54.7 ng/mL Normal 30-100 [facility] Comment on above: Order Comment: SEND ALL TO DR.RANNEY YAO PER PT Result Comment: Karis min D StatusDeficiency: <20 ng/mL (50nmol/L)Insufficiency: 20-30 ng/mL (50-75 nmol/L)Sufficiency: 30-100 ng/mL (75-250 nmol/L)Toxicity: >100 ng/mL (>250 nmol/L) Performed By: #### L 500.4050, L501.9520, L500.4100, L502.0250, L506.1001 ####[facility] [address] [place], [address] White blood cell (WBC) count Ordered By: Ivelisse Ramirez on 02-24-2025 WBC (Bld) [#/Vol] 7.9 10*3/uL 4.4-11.0 [facility] Gastroenterology Visit Repor ton 02-23-2025 Gastroenterology Visit Report Normal [facility] Cardiology Visit Reporton Cardiology Visit Report Normal [facility] Ankle min 3 Viewson 01-21-20 25 Ankle min 3 Views Normal [facility] Foot min 3 Viewson 5 Foot min 3 Views Normal [facility] Urgent Care Visit Reporton 0 01-20-2025 Urgent Care Visit Report Normal [facility] Microalb:Creat Ratio,Random URon 12-18-2024 MALB:CREAT 76.3 mg/g CRE Normal [facility] Comment on above: Result Comment: AMENDED REPORT 12/18/24827 MALB:CREAT previously reported as: 763.0 mg/g CRE Performed By: #### L 502.0250 ####[facility] [address] [place], [address] Calprotectin, Stoolon [address] 125 ug/g Abnormal 0-120 [facility] Comment on above: Result Comment: Conc entration Interpretation Follow-Up< 5 - 50 ug/g Normal None>50 -120 ug/g Borderline Re-evaluate in 4-6 weeks >120 ug/g Abnormal Repeat as clinically indicatedPerformed at: - [facility] [id number] Director: Violette Morton MD, Phone: [phone] Performed By: #### L 7000.0700 ####[facility] [address] [place], [place], [address] Calprotectin stoolOrdered By : Ivelisse Ramirez on 12-07-2024 Calprotectin stool 125 ug/g High 0-120 [facility] Comment on above: Concentration Interp retation Follow-Up< 5 - 50 ug/g Normal None>50 -120 ug/g Borderline Re-evaluate in 4-6 weeks >120 ug/g Abnormal Repeat as clinically indicatedPerformed at: - [facility] [address] [id number] Director: Violette Morton MD, Phone: [phone] Calprotectin, Stoolon [address] 132 ug/g Abnormal 0-120 [facility] Comment on above: Result Comment: Conc entration Interpretation Follow-Up< 5 - 50 ug/g Normal None>50 -120 ug/g Borderline Re-evaluate in 4-6 weeks >120 ug/g Abnormal Repeat as clinically indicatedPerformed at: - [facility] [address] [id number] Director: Violette Morton MD, Phone: [phone] Performed By: #### L 7000.0700 ####[facility] [address] [place], [address] Calprotectin stoolOrdered By : Ivelisse Ramirez on 11-25-2024 Calprotectin stool 132 ug/g High 0-120 [facility] Comment on above: Concentration Interp retation Follow-Up< 5 - 50 ug/g Normal None>50 -120 ug/g Borderline Re-evaluate in 4-6 weeks >120 ug/g Abnormal Repeat as clinically indicatedPerformed at: - [facility] [address] [id number] Director: Violette Morton MD, Phone: [phone] Echocardiogram study reportO rdered By: Jersey Farley on 11-25-2024 Study report [facility] [address] [place] [address] Echo Complete W/ Contrast 11/24/24 1018 MR#: [id number] Acct: [id number] Name: REJI OLIVA Rep #:[id number] : 1960 64 From: Jersey Farley MD Attending Dr: Dr. Melanie Levy MD Status: REG CLI Ordering Dr: Melanie eLvy MD Kenny e: 11/24/24 Location: [facility] Sex: [...] Dictated: 11/24/24 1018 Date Transcribed: 11/25/24 1128 [employer] Manager: Signed [facility] Work Phone: Echo Complete W/ Contraston 11-24-2024 Echo Complete W/ Contrast Normal [facility] Absolute lymphocyte countOrd ered By: Ivelisse Ramirez on 11-19-2024 Lymphocytes Auto (Unsp spec) [#/Vol] 2.43 10*3/uL 0.83-4.51 [facility] Absolute neutrophil countOrd ered By: Ivelisse Ramirez on 11-19-2024 Neutrophils (Bld) [#/Vol] 3.7 10*3/uL 2.0-7.7 [facility] Automated lymphocyte count a s percentage of total leukocytesOrdered By: Ivelisse Ramirez on 11-19-2024 Lymphocytes/100 WBC Auto (Unsp spec) 36.1 % 19-41 [facility] Basophil percentageOrdered B y: Ivelisse Ramirez on 11-19-2024 Basophils/100 WBC (Bld) 0.6 % 0-1 [facility] CBC W/Diff, Automatedon 10-30 Absolute Lymph 2.43 X10 3/uL Normal 0.83-4.51 [facility] Comment on above: Performed By: #### L 503.6150, L503.6550, L100.0100 ####[facility] [address] [place], [address] Absolute Neut 3.7 X10 3/uL Normal 2.0-7.7 [facility] Comment on above: Performed By: #### L 503.6150, L503.6550, L100.0100 ####[facility] [address] [place], [address] Basophils/100 WBC (Bld) 0.6 % Normal 0-1 [facility] Comment on above: Performed By: #### L 503.6150, L503.6550, L100.0100 ####[facility] [address] [place], [address] Eosinophils/100 WBC (Bld) 2.7 % Normal 0-5 [facility] Comment on above: Performed By: #### L 503.6150, L503.6550, L100.0100 ####[facility] [address] [place], [address] Erythrocyte distribution width (RBC) [Ratio] 17.8 % High 11.6-14.6 [facility] Comment on above: Performed By: #### L 503.6150, L503.6550, L100.0100 ####[facility] [address] [place], [address] Hematocrit (Bld) [Volume fraction] 39.0 % Normal 37-47 [facility] Comment on above: Performed By: #### L 503.6150, L503.6550, L100.0100 ####[facility] [address] [place], [address] Hemoglobin (Bld) [Mass/Vol] 12.8 g/dL Normal 12.0-15.0 [facility] Comment on above: Performed By: #### L 503.6150, L503.6550, L100.0100 ####[facility] [address] [place], [address] IG% 0.300 Normal 0.0-0.9 [facility] Comment on above: Result Comment: IG% - Immature Granulocytes (promyelocytes, myelocytes andmetamyelocytes) > 1% indicates that a LEFT SHIFT is Present. Performed By: #### L 503.6150, L503.6550, L100.0100 ####[facility] [address] [place], [address] Lymphocytes/100 WBC (Bld) 36.1 % Normal 19-41 [facility] Comment on above: Performed By: #### L 503.6150, L503.6550, L100.0100 ####[facility] [address] [place], [address] MCH (RBC) [Entitic mass] 26.1 pg Low 27.0-32.0 [facility] Comment on above: Performed By: #### L 503.6150, L503.6550, L100.0100 ####[facility] [address] [place], [address] MCHC (RBC) [Mass/Vol] 32.8 g/dL Normal 32-36 [facility] Comment on above: Performed By: #### L 503.6150, L503.6550, L100.0100 ####[facility] [address] [place], [address] MCV (RBC) [Entitic vol] 79.4 fL Low 81-99 [facility] Comment on above: Performed By: #### L 503.6150, L503.6550, L100.0100 ####[facility] [address] [place], [address] Monocytes/100 WBC (Bld) 5.1 % Normal 0-10 [facility] Comment on above: Performed By: #### L 503.6150, L503.6550, L100.0100 ####[facility] [address] [place], [address] Neutrophils/100 WBC (Bld) 55.2 % Normal 47-70 [facility] Comment on above: Performed By: #### L 503.6150, L503.6550, L100.0100 ####[facility] [address] [place], [address] Nucleated RBC (Bld) [#/Vol] 0 10*3/uL Normal 0-5 [facility] Comment on above: Performed By: #### L 503.6150, L503.6550, L100.0100 ####[facility] [address] [place], [address] Platelet mean volume (Bld) [Entitic vol] 9.6 fL Normal 6.2-12.0 [facility] Comment on above: Performed By: #### L 503.6150, L503.6550, L100.0100 ####[facility] [address] [place], [address] Platelets (Bld) [#/Vol] 203 10*3/uL Normal 150-450 [facility] Comment on above: Performed By: #### L 503.6150, L503.6550, L100.0100 ####[facility] [address] [place], [address] RBC (Bld) [#/Vol] 4.91 10*6/uL Normal 4.2-5.4 [facility] Comment on above: Performed By: #### L 503.6150, L503.6550, L100.0100 ####[facility] [address] [place], [address] RDW SD 50.9 fl High 35.1-43.9 [facility] Comment on above: Performed By: #### L 503.6150, L503.6550, L100.0100 ####[facility] [address] [place], [address] WBC (Bld) [#/Vol] 6.7 10*3/uL Normal 4.4-11.0 [facility] Comment on above: Performed By: #### L 503.6150, L503.6550, L100.0100 ####[facility] [address] [place], [address] Eosinophil percentageOrdered By: Ivelisse Ramirez on 11-19-2024 Eosinophils/100 WBC (Bld) 2.7 % 0-5 [facility] Erythrocyte distribution wid th ratioOrdered By: Ivelisse Ramirez on 11-19-2024 Erythrocyte distribution width (RBC) [Ratio] 17.8 % High 11.6-14.6 [facility] Erythrocyte distribution wid th standard deviationOrdered By: Ivelisse Ramirez on 11-19-2024 Erythrocyte distribution width (RBC) [Ratio] 50.9 fl High 35.1-43.9 [facility] Ferritinon 11-19-2024 Ferritin [Mass/Vol] 39 ng/mL Normal 22-378 [facility] Comment on above: Performed By: #### L 503.6150, L503.6550, L100.0100 ####[facility] [address] [place], [address] Gastroenterology Visit Repor ton 11-19-2024 Gastroenterology Visit Report Normal [facility] Hematocrit Auto (Bld) [Volum e fraction]Ordered By: Ivelisse Ramirez on 11-19-2024 Hematocrit (Bld) [Volume fraction] 39.0 % 37-47 [facility] Hemoglobin measurementOrdere d By: Ivelisse Ramirez on 11-19-2024 Hemoglobin (Bld) [Mass/Vol] 12.8 g/dL 12.0-15.0 [facility] Immature granulocytes/100 WB C Auto (Bld)Ordered By: Ivelisse Ramirez on 11-19-2024 Immature granulocytes/100 WBC (Bld) 0.300 % 0.0-0.9 [facility] Comment on above: IG% - Immature Granu locytes (promyelocytes, myelocytes and metamyelocytes) > 1% indicates that a LEFT SHIFT is Present. Ironon 11-19-2024 Iron [Mass/Vol] 89 ug/dL Normal 50-170 [facility] Comment on above: Performed By: #### L 503.6150, L503.6550, L100.0100 ####[facility] [address] [place], [address] Iron measurement (mass/mass) Ordered By: Ivelisse Ramirez on 11-19-2024 Iron (Unsp spec) [Mass/Mass] 89 ug/dL 50-170 [facility] MCV (mean corpuscular volume ) determinationOrdered By: Ivelisse Ramirez on 11-19-2024 MCV (RBC) [Entitic vol] 79.4 fL Low 81-99 [facility] Mean corpuscular hemoglobin (MCH) determinationOrdered By: Ivelisse Ramirez on 11-19-2024 MCH (RBC) [Entitic mass] 26.1 pg Low 27.0-32.0 [facility] Mean corpuscular hemoglobin concentration (MCHC) determinationOrdered By: Ivelisse Ramirez on 11-19-2024 MCHC (RBC) [Mass/Vol] 32.8 g/dL 32-36 [facility] Mean platelet volume determi nationOrdered By: Ivelisse Ramirez on 11-19-2024 Platelet mean volume (Bld) [Entitic vol] 9.6 fL 6.2-12.0 [facility] Monocyte percentageOrdered B y: Ivelisse Ramirez on 11-19-2024 Monocytes/100 WBC (Bld) 5.1 % 0-10 [facility] Neutrophil percentageOrdered By: Ivelisse Ramirez on 11-19-2024 Neutrophils/100 WBC (Bld) 55.2 % 47-70 [facility] Nucleated red blood cell per centageOrdered By: Ivelisse Ramirez on 11-19-2024 Nucleated RBC/100 WBC (Bld) [Ratio] 0 % 0-5 [facility] Platelet countOrdered By: Acacia Ramirez on 11-19-2024 Platelets (Bld) [#/Vol] 203 10*3/uL 150-450 [facility] RBC Auto (Bld) [#/Vol]Ordere d By: Ivelisse Ramirez on 11-19-2024 RBC (Bld) [#/Vol] 4.91 10*6/uL 4.2-5.4 [facility] Serum or plasma ferritin connie surement (mass/volume)Ordered By: Ivelisse Ramirez on 11-19-2024 Ferritin [Mass/Vol] 39 ng/mL 22-378 [facility] White blood cell (WBC) count Ordered By: Ivelisse Ramirez on 11-19-2024 WBC (Bld) [#/Vol] 6.7 10*3/uL 4.4-11.0 [facility] Random urine creatinine nya urement (mass/volume)Ordered By: Melanie Levy on 11-03-2024 Creatinine Unsp time (U) [Mass/Vol] 270.00 mg/dL High 28.00-217.00 [facility] Urine albumin measurement [facility] detection limit of 20 mg/L or less (mass/volume)Ordered By: Melanie Levy on 11-03-2024 Albumin DL <= 20 mg/L (U) [Mass/Vol] 206.0 mg/L NO RANGE EST. [facility] Absolute lymphocyte countOrd ered By: Ivelisse Ramirez on 09-17-2024 Lymphocytes Auto (Unsp spec) [#/Vol] 3.71 10*3/uL 0.83-4.51 [facility] Absolute neutrophil countOrd ered By: Ivelisse Ramirez on 09-17-2024 Neutrophils (Bld) [#/Vol] 3.8 10*3/uL 2.0-7.7 [facility] Anion gap in Serum or Plasma Ordered By: Melanie Levy on 09-17-2024 Anion gap [Moles/Vol] 10 mmol/L 11-12 [facility] Automated lymphocyte count a s percentage of total leukocytesOrdered By: Ivelisse Ramirez on 09-17-2024 Lymphocytes/100 WBC Auto (Unsp spec) 45.7 % High [facility] BUN/creatinine ratioOrdered By: Melanie Levy on 09-17-2024 Urea nitrogen/Creatinine [Mass ratio] 18.2 mg/mg 04-19 [facility] Basophil percentageOrdered B y: Ivelisse Ramirez on 09-17-2024 Basophils/100 WBC (Bld) 0.6 % 0- [facility] Bilirubin, totalOrdered By: Melanie Levy on 09-17-2024 Bilirubin [Mass/Vol] 0.28 mg/dL 0.00-1.30 [facility] CBC W/Diff, Automatedon 08-30 Absolute Lymph 3.71 X10 3/uL Normal 0.83-4.51 [facility] Comment on above: Performed By: #### L 501.6710, L101.9900, L100.0100 ####[facility] [address] [place], [address] Absolute Neut 3.8 X10 3/uL Normal 2.0-7.7 [facility] Comment on above: Performed By: #### L 501.6710, L101.9900, L100.0100 ####[facility] [address] [place], [address] Basophils/100 WBC (Bld) 0.6 % Normal 0-1 [facility] Comment on above: Performed By: #### L 501.6710, L101.9900, L100.0100 ####[facility] [address] [place], [address] Eosinophils/100 WBC (Bld) 3.0 % Normal 0-5 [facility] Comment on above: Performed By: #### L 501.6710, L101.9900, L100.0100 ####[facility] [address] [place], [address] Erythrocyte distribution width (RBC) [Ratio] 13.8 % Normal 11.6-14.6 [facility] Comment on above: Performed By: #### L 501.6710, L101.9900, L100.0100 ####[facility] [address] [place], [address] Hematocrit (Bld) [Volume fraction] 33.9 % Low 37-47 [facility] Comment on above: Performed By: #### L 501.6710, L101.9900, L100.0100 ####[facility] [address] [place], [address] Hemoglobin (Bld) [Mass/Vol] 10.7 g/dL Low 12.0-15.0 [facility] Comment on above: Performed By: #### L 501.6710, L101.9900, L100.0100 ####[facility] [address] [place], [address] IG% 0.200 Normal 0.0-0.9 [facility] Comment on above: Result Comment: IG% - Immature Granulocytes (promyelocytes, myelocytes andmetamyelocytes) > 1% indicates that a LEFT SHIFT is Present. Performed By: #### L 501.6710, L101.9900, L100.0100 ####[facility] [address] [place], [address] Lymphocytes/100 WBC (Bld) 45.7 % High 19-41 [facility] Comment on above: Performed By: #### L 501.6710, L101.9900, L100.0100 ####[facility] [address] [place], [address] MCH (RBC) [Entitic mass] 24.5 pg Low 27.0-32.0 [facility] Comment on above: Performed By: #### L 501.6710, L101.9900, L100.0100 ####[facility] [address] [place], [address] MCHC (RBC) [Mass/Vol] 31.6 g/dL Low 32-36 [facility] Comment on above: Performed By: #### L 501.6710, L101.9900, L100.0100 ####[facility] [address] [place], [address] MCV (RBC) [Entitic vol] 77.8 fL Low 81-99 [facility] Comment on above: Performed By: #### L 501.6710, L101.9900, L100.0100 ####[facility] [address] [place], [address] Monocytes/100 WBC (Bld) 4.2 % Normal 0-10 [facility] Comment on above: Performed By: #### L 501.6710, L101.9900, L100.0100 ####[facility] [address] [place], [address] Neutrophils/100 WBC (Bld) 46.3 % Low 47-70 [facility] Comment on above: Performed By: #### L 501.6710, L101.9900, L100.0100 ####[facility] [address] [place], [address] Nucleated RBC (Bld) [#/Vol] 0 10*3/uL Normal 0-5 [facility] Comment on above: Performed By: #### L 501.6710, L101.9900, L100.0100 ####[facility] [address] [place], [address] Platelet mean volume (Bld) [Entitic vol] 10.2 fL Normal 6.2-12.0 [facility] Comment on above: Performed By: #### L 501.6710, L101.9900, L100.0100 ####[facility] [address] [place], [address] Platelets (Bld) [#/Vol] 229 10*3/uL Normal 150-450 [facility] Comment on above: Performed By: #### L 501.6710, L101.9900, L100.0100 ####[facility] [address] [place], [address] RBC (Bld) [#/Vol] 4.36 10*6/uL Normal 4.2-5.4 [facility] Comment on above: Performed By: #### L 501.6710, L101.9900, L100.0100 ####[facility] [address] [place], [address] RDW SD 39.5 fl Normal 35.1-43.9 [facility] Comment on above: Performed By: #### L 501.6710, L101.9900, L100.0100 ####[facility] [address] [place], [address] WBC (Bld) [#/Vol] 8.1 10*3/uL Normal 4.4-11.0 [facility] Comment on above: Performed By: #### L 501.6710, L101.9900, L100.0100 ####[facility] [address] [place], [address] CBC-Complete Blood Cnt No Di ffon 09-17-2024 Erythrocyte distribution width (RBC) [Ratio] 13.7 % Normal 11.6-14.6 [facility] Comment on above: Order Comment: Order Date: 07/07/24Order Info: [id number] - CBC Performed By: #### L 501.9520, L100.0500, L503.6550, L500.4050, L503.6150 ####[facility] [address] [place], [address] Hematocrit (Bld) [Volume fraction] 34.0 % Low 37-47 [facility] Comment on above: Order Comment: Order Date: 07/07/24Order Info: [id number] - CBC Performed By: #### L 501.9520, L100.0500, L503.6550, L500.4050, L503.6150 ####[facility] [address] [place], [address] Hemoglobin (Bld) [Mass/Vol] 10.5 g/dL Low 12.0-15.0 [facility] Comment on above: Order Comment: Order Date: 07/07/24Order Info: [id number] - CBC Performed By: #### L 501.9520, L100.0500, L503.6550, L500.4050, L503.6150 ####[facility] [address] [place], [address] MCH (RBC) [Entitic mass] 24.0 pg Low 27.0-32.0 [facility] Comment on above: Order Comment: Order Date: 07/07/24Order Info: [id number] - CBC Performed By: #### L 501.9520, L100.0500, L503.6550, L500.4050, L503.6150 ####[facility] [address] [place], [address] MCHC (RBC) [Mass/Vol] 30.9 g/dL Low 32-36 [facility] Comment on above: Order Comment: Order Date: 07/07/24Order Info: [id number] - CBC Performed By: #### L 501.9520, L100.0500, L503.6550, L500.4050, L503.6150 ####[facility] [address] [place], [address] MCV (RBC) [Entitic vol] 77.8 fL Low 81-99 [facility] Comment on above: Order Comment: Order Date: 07/07/24Order Info: [id number] - CBC Performed By: #### L 501.9520, L100.0500, L503.6550, L500.4050, L503.6150 ####[facility] [address] [place], [address] Platelet mean volume (Bld) [Entitic vol] 10.0 fL Normal 6.2-12.0 [facility] Comment on above: Order Comment: Order Date: 07/07/24Order Info: [id number] - CBC Performed By: #### L 501.9520, L100.0500, L503.6550, L500.4050, L503.6150 ####[facility] [address] [place], [address] Platelets (Bld) [#/Vol] 226 10*3/uL Normal 150-450 [facility] Comment on above: Order Comment: Order Date: 07/07/24Order Info: [id number] - CBC Performed By: #### L 501.9520, L100.0500, L503.6550, L500.4050, L503.6150 ####[facility] [address] [place], [address] RBC (Bld) [#/Vol] 4.37 10*6/uL Normal 4.2-5.4 [facility] Comment on above: Order Comment: Order Date: 07/07/24Order Info: [id number] - CBC Performed By: #### L 501.9520, L100.0500, L503.6550, L500.4050, L503.6150 ####[facility] [address] [place], [address] RDW SD 39.2 fl Normal 35.1-43.9 [facility] Comment on above: Order Comment: Order Date: 07/07/24Order Info: [id number] - CBC Performed By: #### L 501.9520, L100.0500, L503.6550, L500.4050, L503.6150 ####[facility] [address] [place], [address] WBC (Bld) [#/Vol] 8.0 10*3/uL Normal 4.4-11.0 [facility] Comment on above: Order Comment: Order Date: 07/07/24Order Info: [id number] - CBC Performed By: #### L 501.9520, L100.0500, L503.6550, L500.4050, L503.6150 ####[facility] [address] [place], [address] CRPon 09-17-2024 C-REACTIVE PROT < 3.00 Normal 0.0-3.0 [facility] Comment on above: Performed By: #### L 501.6710, L101.9900, L100.0100 ####[facility] [address] [place], [address] CRP [Mass/Vol]Ordered By: Acacia Ramirez on 09-17-2024 C-Reactive Protein Extended Range < 3.00 mg/L 0.0-3.0 [facility] Carbon dioxide, total [Moles /volume] in Central venous bloodOrdered By: Melanie Levy on 09-17-2024 CO2 [Moles/Vol] 27.5 mmol/L 21.0-32.0 [facility] Chloride assayOrdered By: Natalia Levy on 09-17-2024 Chloride [Moles/Vol] 103 mmol/L 98-108 [facility] Comprehensive Metabolic Prof ilon 09-17-2024 Albumin [Mass/Vol] 4.2 g/dL Normal 3.4-4.8 [facility] Comment on above: Order Comment: Order Date: 07/07/24Order Info: [id number] - CMPOrder Info: [id number] - LIPIDOrder Info: 3 - TSHOrder Info: [id number] - FEOrder Info: [id number] - VI Performed By: #### L 501.9520, L100.0500, L503.6550, L500.4050, L503.6150 ####[facility] [address] [place], [address] Albumin/Globulin [Mass ratio] 1.3 {ratio} Normal 0.9-2.4 [facility] Comment on above: Order Comment: Order Date: 07/07/24Order Info: [id number]- - CMPOrder Info: [id number] - LIPIDOrder Info: 3 - TSHOrder Info: [id number] - FEOrder Info: [id number] - VI Performed By: #### L 501.9520, L100.0500, L503.6550, L500.4050, L503.6150 ####[facility] [address] [place], [address] ALK PHOS 113 U/L High 35-104 [facility] Comment on above: Order Comment: Order Date: 07/07/24Order Info: [id number]- - CMPOrder Info: [id number] - LIPIDOrder Info: 3 - TSHOrder Info: [id number] - FEOrder Info: [id number] - VI Performed By: #### L 501.9520, L100.0500, L503.6550, L500.4050, L503.6150 ####[facility] [address] [place], [address] ALT [Catalytic activity/Vol] 9 U/L Normal <=34 [facility] Comment on above: Order Comment: Order Date: 07/07/24Order Info: [id number]- - CMPOrder Info: [id number] - LIPIDOrder Info: 3 - TSHOrder Info: [id number] - FEOrder Info: [id number] - VI Performed By: #### L 501.9520, L100.0500, L503.6550, L500.4050, L503.6150 ####[facility] [address] [place], [address] AST [Catalytic activity/Vol] 17 U/L Normal <=31 [facility] Comment on above: Order Comment: Order Date: 07/07/24Order Info: [id number] - CMPOrder Info: [id number] - LIPIDOrder Info: [id number] - TSHOrder Info: [id number] - FEOrder Info: [id number] - VI Performed By: #### L 501.9520, L100.0500, L503.6550, L500.4050, L503.6150 ####[facility] [address] [place], [address] Bilirubin [Mass/Vol] 0.28 mg/dL Normal 0.00-1.30 [facility] Comment on above: Order Comment: Order Date: 07/07/24Order Info: 86-1 - CMPOrder Info: [id number] - LIPIDOrder Info: 6-3 - TSHOrder Info: [id number] - FEOrder Info: [id number] - VI Performed By: #### L 501.9520, L100.0500, L503.6550, L500.4050, L503.6150 ####[facility] [address] [place], [address] BUN/CRE 18.2 RATIO Normal 10-20 [facility] Comment on above: Order Comment: Order Date: 07/07/24Order Info: [id number] - CMPOrder Info: [id number] - LIPIDOrder Info: [id number] - TSHOrder Info: [id number] - FEOrder Info: [id number] - VI Performed By: #### L 501.9520, L100.0500, L503.6550, L500.4050, L503.6150 ####[facility] [address] [place], [address] Calcium [Mass/Vol] 9.4 mg/dL Normal 7.6-11.0 [facility] Comment on above: Order Comment: Order Date: 07/07/24Order Info: 86-1 - CMPOrder Info: [id number] - LIPIDOrder Info: [id number] - TSHOrder Info: [id number] - FEOrder Info: [id number] - VI Performed By: #### L 501.9520, L100.0500, L503.6550, L500.4050, L503.6150 ####[facility] [address] [place], [address] Chloride [Moles/Vol] 103 mmol/L Normal 98-108 [facility] Comment on above: Order Comment: Order Date: 07/07/24Order Info: [id number] - CMPOrder Info: [id number] - LIPIDOrder Info: 6-3 - TSHOrder Info: [id number] - FEOrder Info: 4 - VI Performed By: #### L 501.9520, L100.0500, L503.6550, L500.4050, L503.6150 ####[facility] [address] [place], [address] CO2 [Moles/Vol] 27.5 mmol/L Normal 21.0-32.0 [facility] Comment on above: Order Comment: Order Date: 07/07/24Order Info: [id number] - CMPOrder Info: [id number] - LIPIDOrder Info: [id number] - TSHOrder Info: [id number] - FEOrder Info: [id number] - VI Performed By: #### L 501.9520, L100.0500, L503.6550, L500.4050, L503.6150 ####[facility] [address] [place], [address] Creatinine [Mass/Vol] 0.97 mg/dL Normal 0.70-1.20 [facility] Comment on above: Order Comment: Order Date: 07/07/24Order Info: [id number] - CMPOrder Info: [id number] - LIPIDOrder Info: [id number] - TSHOrder Info: [id number] - FEOrder Info: [id number] - VI Performed By: #### L 501.9520, L100.0500, L503.6550, L500.4050, L503.6150 ####[facility] [address] [place], [address] GAP 10 Normal 5-15 [facility] Comment on above: Order Comment: Order Date: 07/07/24Order Info: [id number]- - CMPOrder Info: [id number] - LIPIDOrder Info: 3 - TSHOrder Info: [id number] - FEOrder Info: [id number] - VI Performed By: #### L 501.9520, L100.0500, L503.6550, L500.4050, L503.6150 ####[facility] [address] [place], [address] GFR/1.73 sq M.predicted among non-blacks MDRD (S/P/Bld) [Vol rate/Area] 65 mL/min/{1.73_m2} Normal >60 [facility] Comment on above: Order Comment: Order Date: 07/07/24Order Info: 07 - CMPOrder Info: - LIPIDOrder Info: 3 - TSHOrder Info: [id number] - FEOrder Info: [id number] - VI Result Comment: mL/m in/1.73m2 CKD-EPI Creatinine Equation (2020) Performed By: #### L 501.9520, L100.0500, L503.6550, L500.4050, L503.6150 ####[facility] [address] [place], [address] Globulin (S) [Mass/Vol] 3.2 g/dL Normal 2.2-4.2 [facility] Comment on above: Order Comment: Order Date: 07/07/24Order Info: 07- - CMPOrder Info: - LIPIDOrder Info: [id number] - TSHOrder Info: [id number] - FEOrder Info: [id number] - VI Performed By: #### L 501.9520, L100.0500, L503.6550, L500.4050, L503.6150 ####[facility] [address] [place], [address] Glucose [Mass/Vol] 163 mg/dL High 70-99 [facility] Comment on above: Order Comment: Order Date: 07/07/24Order Info: 86-1 - CMPOrder Info: [id number] - LIPIDOrder Info: 3 - TSHOrder Info: [id number] - FEOrder Info: [id number] - VI Performed By: #### L 501.9520, L100.0500, L503.6550, L500.4050, L503.6150 ####[facility] [address] [place], [address] Potassium [Moles/Vol] 4.5 mmol/L Normal 3.3-5.1 [facility] Comment on above: Order Comment: Order Date: 07/07/24Order Info: 86-1 - CMPOrder Info: [id number] - LIPIDOrder Info: [id number] - TSHOrder Info: [id number] - FEOrder Info: [id number] - VI Performed By: #### L 501.9520, L100.0500, L503.6550, L500.4050, L503.6150 ####[facility] [address] [place], [address] Sodium [Moles/Vol] 141 mmol/L Normal 133-145 [facility] Comment on above: Order Comment: Order Date: 07/07/24Order Info: 86-1 - CMPOrder Info: [id number] - LIPIDOrder Info: 3 - TSHOrder Info: [id number] - FEOrder Info: [id number] - VI Performed By: #### L 501.9520, L100.0500, L503.6550, L500.4050, L503.6150 ####[facility] [address] [place], [address] T PROT 7.4 g/dL Normal 5.9-8.4 [facility] Comment on above: Order Comment: Order Date: 07/07/24Order Info: [id number] - CMPOrder Info: [id number] - LIPIDOrder Info: [id number] - TSHOrder Info: [id number] - FEOrder Info: [id number] - VI Performed By: #### L 501.9520, L100.0500, L503.6550, L500.4050, L503.6150 ####[facility] [address] [place], [address] Urea nitrogen [Mass/Vol] 18 mg/dL Normal 4-19 [facility] Comment on above: Order Comment: Order Date: 07/07/24Order Info: [id number] - CMPOrder Info: [id number] - LIPIDOrder Info: 6-3 - TSHOrder Info: [id number] - FEOrder Info: [id number] - VI Performed By: #### L 501.9520, L100.0500, L503.6550, L500.4050, L503.6150 ####[facility] [address] [place], [address] Eosinophil percentageOrdered By: Ivelisse Ramirez on 09-17-2024 Eosinophils/100 WBC (Bld) 3.0 % 0-5 [facility] Erythrocyte Sed Rateon 09-17 SED RATE 6 mm/hr Normal 0-30 [facility] Comment on above: Performed By: #### L 501.6710, L101.9900, L100.0100 ####[facility] [address] [place], [address] Erythrocyte distribution wid th ratioOrdered By: Melanie Levy on 09-17-2024 Erythrocyte distribution width (RBC) [Ratio] 13.7 % 11.6-14.6 [facility] Erythrocyte distribution wid th standard deviationOrdered By: Melanie Levy on 09-17-2024 Erythrocyte distribution width (RBC) [Entitic vol] 39.2 fL 35.1-43.9 [facility] Erythrocyte distribution width (RBC) [Ratio] 39.2 fl 35.1-43.9 [facility] Erythrocyte sedimentation ra teOrdered By: Ivelisse Ramirez on 09-17-2024 ESR (Bld) [Velocity] 6 mm/h 0-30 [facility] Ferritinon 09-17-2024 Ferritin [Mass/Vol] 11 ng/mL Low 22-378 [facility] Comment on above: Order Comment: Order Date: 07/07/24Order Info: [id number] - CMPOrder Info: [id number] - LIPIDOrder Info: [id number] - TSHOrder Info: [id number] - FEOrder Info: [id number] - VI Performed By: #### L 501.9520, L100.0500, L503.6550, L500.4050, L503.6150 ####[facility] [address] [place], [address] GFR/1.73 sq M.predicted morgan g non-blacks MDRD (S/P/Bld) [Vol rate/Area]Ordered By: Melanie Levy on 09-17-2024 Estimated GFR (MDRD) Non-Af Amer 65 >60 [facility] Comment on above: mL/min/1.73m2 CKD-EP I Creatinine Equation (2020) Gastroenterology Visit Repor ton 09-17-2024 Gastroenterology Visit Report Normal [facility] Glomerular filtration rate ( GFR) estimation/1.73 sq m using serum, plasma, or whole bOrdered By: Melanie Levy on 09-17-2024 GFR/1.73 sq M.predicted among non-blacks MDRD (S/P/Bld) [Vol rate/Area] 65 mL/min/{1.73_m2} >60 [facility] Comment on above: mL/min/1.73m2 CKD-EP I Creatinine Equation (2020) Hematocrit Auto (Bld) [Volum e fraction]Ordered By: Melanie Levy on 09-17-2024 Hematocrit (Bld) [Volume fraction] 34.0 % Low 37-47 [facility] Hemoglobin measurementOrdere d By: Melanie Levy on 09-17-2024 Hemoglobin (Bld) [Mass/Vol] 10.5 g/dL Low 12.0-15.0 [facility] Immature granulocytes/100 WB C Auto (Bld)Ordered By: Ivelisse Ramirez on 09-17-2024 Immature granulocytes/100 WBC (Bld) 0.200 % 0.0-0.9 [facility] Comment on above: IG% - Immature Granu locytes (promyelocytes, myelocytes and metamyelocytes) > 1% indicates that a LEFT SHIFT is Present. Ironon 09-17-2024 Iron [Mass/Vol] 26 ug/dL Low 50-170 [facility] Comment on above: Order Comment: Order Date: 07/07/24Order Info: [id number] - CMPOrder Info: [id number] - LIPIDOrder Info: [id number] - TSHOrder Info: [id number] - FEOrder Info: [id number] - VI Performed By: #### L [id number], L100.0500, L503.6550, L500.4050, L503.6150 ####[facility] [id number] [place], [place], [id number] Iron (Unsp spec) [Mass/Mass] Ordered By: Melanie Levy on 09-17-2024 Iron [Mass/Vol] 26 ug/dL Low 50-170 [facility] Iron measurement (mass/mass) Ordered By: Melanie Levy on 09-17-2024 Iron (Unsp spec) [Mass/Mass] 26 ug/dL Low 50-170 [facility] [id number] 09-17-2024 [place] (Vitamin B12) [Mass/Vol] 307 pg/mL Normal 180-914 [facility] Comment on above: Order Comment: Order Date: 07/07/24Order Info: [id number] - CMPOrder Info: [id number] - LIPIDOrder Info: [id number] - TSHOrder Info: [id number] - FEOrder Info: [id number] - VI Performed By: #### L 503.0106 ####[facility] [address] [place], [address] Laboratory - Chemistry and C hemistry - challengeOrdered By: Melanie Levy on 09-17-2024 AST [Catalytic activity/Vol] 17 U/L <32 [facility] Lymphocytes Auto (Unsp spec) [#/Vol]Ordered By: Ivelisse Ramirez on 09-17-2024 Lymphocytes (Bld) [#/Vol] 3.71 10*3/uL 0.83-4.51 [facility] Lymphocytes/100 WBC Auto (Un sp spec)Ordered By: Ivelisse Ramirez on 09-17-2024 Lymphocytes/100 WBC (Bld) 45.7 % High 19-41 [facility] MCV (mean corpuscular volume ) determinationOrdered By: Melanie Levy on 09-17-2024 MCV (RBC) [Entitic vol] 77.8 fL Low 81-99 [facility] Mean corpuscular hemoglobin (MCH) determinationOrdered By: Melanie Levy on 09-17-2024 MCH (RBC) [Entitic mass] 24.0 pg Low 27.0-32.0 [facility] Mean corpuscular hemoglobin concentration (MCHC) determinationOrdered By: Melanie Levy on 09-17-2024 MCHC (RBC) [Mass/Vol] 30.9 g/dL Low 32-36 [facility] Mean platelet volume determi nationOrdered By: Melanie Levy on 09-17-2024 Platelet mean volume (Bld) [Entitic vol] 10.0 fL 6.2-12.0 [facility] Monocyte percentageOrdered B y: Ivelisse Ramirez on 09-17-2024 Monocytes/100 WBC (Bld) 4.2 % 0-10 [facility] Neutrophil percentageOrdered By: Ivelisse Ramirez on 09-17-2024 Neutrophils/100 WBC (Bld) 46.3 % Low 47-70 [facility] Nucleated red blood cell per centageOrdered By: Ivelisse Ramirez on 09-17-2024 Nucleated RBC/100 WBC (Bld) [Ratio] 0 % 0-5 [facility] Platelet countOrdered By: Natalia Levy on 09-17-2024 Platelets (Bld) [#/Vol] 226 10*3/uL 150-450 [facility] Potassium (Unsp spec) [Mass/ Vol]Ordered By: Melanie Levy on 09-17-2024 Potassium [Moles/Vol] 4.5 mmol/L 3.3-5.1 [facility] Potassium measurement (mass/ volume)Ordered By: Melanie Levy on 09-17-2024 Potassium (Unsp spec) [Mass/Vol] 4.5 mmol/L 3.3-5.1 [facility] RBC Auto (Bld) [#/Vol]Ordere d By: Melanie Levy on 09-17-2024 RBC (Bld) [#/Vol] 4.37 10*6/uL 4.2-5.4 [facility] Serum creatinine measurement (mass/volume)Ordered By: Melanie Levy on 09-17-2024 Creatinine [Mass/Vol] 0.97 mg/dL 0.70-1.20 [facility] Serum globulin measurementOr dered By: Melanie Levy on 09-17-2024 Globulin (S) [Mass/Vol] 3.2 g/dL 2.2-4.2 [facility] Serum glucose measurement (m ass/volume)Ordered By: Melanie Levy on 09-17-2024 Glucose [Mass/Vol] 163 mg/dL High 70-99 [facility] Serum or plasma C reactive p rotein measurement (mass/volume)Ordered By: Ivelisse Ramirez on 09-17-2024 CRP [Mass/Vol] mg/L 0.0-3.0 [facility] Serum or plasma alanine adams otransferase (ALT) measurementOrdered By: Melanie Levy on 09-17-2024 ALT [Catalytic activity/Vol] 9 U/L <35 [facility] Serum or plasma albumin nya urement (mass/volume)Ordered By: Melanie Levy on 09-17-2024 Albumin [Mass/Vol] 4.2 g/dL 3.4-4.8 [facility] Serum or plasma albumin/glob ulin mass ratioOrdered By: Melanie Levy on 09-17-2024 Albumin/Globulin [Mass ratio] 1.3 {ratio} 0.9-2.4 [facility] Serum or plasma alkaline saleem sphatase measurementOrdered By: Melanie Levy on 09-17-2024 ALP [Catalytic activity/Vol] 113 U/L High 35-104 [facility] Serum or plasma calcium nya urement (mass/volume)Ordered By: Melanie Levy on 09-17-2024 Calcium [Mass/Vol] 9.4 mg/dL 7.6-11.0 [facility] Serum or plasma ferritin connie surement (mass/volume)Ordered By: Melanie Levy on 09-17-2024 Ferritin [Mass/Vol] 11 ng/mL Low 22-378 [facility] Serum or plasma urea nitroge n measurement (mass/volume)Ordered By: Melanie Levy on 09-17-2024 Urea nitrogen [Mass/Vol] 18 mg/dL 4-19 [facility] Sodium levelOrdered By: Shreyas Levy on 09-17-2024 Sodium [Moles/Vol] 141 mmol/L 133-145 [facility] TSH DL <= 0.005 mIU/L QnOrde red By: Melanie Levy on 09-17-2024 Thyroid Stimulating Hormone (TSH) 2.820 uIU/mL 0.300-4.200 [facility] TSH Qn 2.820 uIU/mL 0.300-4.200 [facility] Thyroid Stim Hormone (TSH)on 09-17-2024 TSH 2.820 uIU/mL Normal 0.300-4.200 [facility] Comment on above: Order Comment: Order Date: 07/07/24Order Info: [id number] - CMPOrder Info: [id number] - LIPIDOrder Info: [id number] - TSHOrder Info: [id number] - FEOrder Info: [id number] - VI Performed By: #### L 501.9520, L100.0500, L503.6550, L500.4050, L503.6150 ####[facility] [address] [place], [place], [id number] Total proteinOrdered By: Tia Levy on 09-17-2024 Protein [Mass/Vol] 7.4 g/dL 5.9-8.4 [facility] Vitamin B12 ser/plasOrdered By: Melanie Levy on 09-17-2024 Cobalamin (Vitamin B12) [Mass/Vol] 307 pg/mL 180-914 [facility] White blood cell (WBC) count Ordered By: Melanie Levy on 09-17-2024 WBC (Bld) [#/Vol] 8.0 10*3/uL 4.4-11.0 [facility] Endocrinology Visit Reporton 09-07-2024 Endocrinology Visit Report Normal [facility] Office Visit Reporton 2024 Office Visit Report Normal [facility] Absolute lymphocyte countOrd ered By: Ivelisse Ramirez on 08-12-2024 Lymphocytes Auto (Unsp spec) [#/Vol] 2.78 10*3/uL 0.83-4.51 [facility] Absolute neutrophil countOrd ered By: Ivelisse Ramirez on 08-12-2024 Neutrophils (Bld) [#/Vol] 4.2 10*3/uL 2.0-7.7 [facility] Automated lymphocyte count a s percentage of total leukocytesOrdered By: Ivelisse Ramirez on 08-12-2024 Lymphocytes/100 WBC Auto (Unsp spec) 36.7 % 19-41 [facility] Basophil percentageOrdered B y: Ivelisse Ramirez on 08-12-2024 Basophils/100 WBC (Bld) 0.7 % 0-1 [facility] CBC W/Diff, Automatedon 08-01 Absolute Lymph 2.78 X10 3/uL Normal 0.83-4.51 [facility] Comment on above: Performed By: #### L 100.0100, L503.6150 ####[facility] [address] [place], [address] Absolute Neut 4.2 X10 3/uL Normal 2.0-7.7 [facility] Comment on above: Performed By: #### L 100.0100, L503.6150 ####[facility] [address] [place], [address] Basophils/100 WBC (Bld) 0.7 % Normal 0-1 [facility] Comment on above: Performed By: #### L 100.0100, L503.6150 ####[facility] [address] [place], [address] Eosinophils/100 WBC (Bld) 2.9 % Normal 0-5 [facility] Comment on above: Performed By: #### L 100.0100, L503.6150 ####[facility] [address] [place], [address] Erythrocyte distribution width (RBC) [Ratio] 13.4 % Normal 11.6-14.6 [facility] Comment on above: Performed By: #### L 100.0100, L503.6150 ####[facility] [address] [place], [address] Hematocrit (Bld) [Volume fraction] 34.1 % Low 37-47 [facility] Comment on above: Performed By: #### L 100.0100, L503.6150 ####[facility] [address] [place], [address] Hemoglobin (Bld) [Mass/Vol] 10.7 g/dL Low 12.0-15.0 [facility] Comment on above: Performed By: #### L 100.0100, L503.6150 ####[facility] [address] [place], [address] IG% 0.300 Normal 0.0-0.9 [facility] Comment on above: Result Comment: IG% - Immature Granulocytes (promyelocytes, myelocytes andmetamyelocytes) > 1% indicates that a LEFT SHIFT is Present. Performed By: #### L 100.0100, L503.6150 ####[facility] [address] [place], [address] Lymphocytes/100 WBC (Bld) 36.7 % Normal 19-41 [facility] Comment on above: Performed By: #### L 100.0100, L503.6150 ####[facility] [address] [place], [address] MCH (RBC) [Entitic mass] 25.5 pg Low 27.0-32.0 [facility] Comment on above: Performed By: #### L 100.0100, L503.6150 ####[facility] [address] [place], [address] MCHC (RBC) [Mass/Vol] 31.4 g/dL Low 32-36 [facility] Comment on above: Performed By: #### L 100.0100, L503.6150 ####[facility] [address] [place], [address] MCV (RBC) [Entitic vol] 81.2 fL Normal 81-99 [facility] Comment on above: Performed By: #### L 100.0100, L503.6150 ####[facility] [address] [place], [address] Monocytes/100 WBC (Bld) 4.5 % Normal 0-10 [facility] Comment on above: Performed By: #### L 100.0100, L503.6150 ####[facility] [address] [place], [address] Neutrophils/100 WBC (Bld) 54.9 % Normal 47-70 [facility] Comment on above: Performed By: #### L 100.0100, L503.6150 ####[facility] [address] [place], [address] Nucleated RBC (Bld) [#/Vol] 0 10*3/uL Normal 0-5 [facility] Comment on above: Performed By: #### L 100.0100, L503.6150 ####[facility] [address] [place], [address] Platelet mean volume (Bld) [Entitic vol] 10.1 fL Normal 6.2-12.0 [facility] Comment on above: Performed By: #### L 100.0100, L503.6150 ####[facility] [address] [place], [address] Platelets (Bld) [#/Vol] 277 10*3/uL Normal 150-450 [facility] Comment on above: Performed By: #### L 100.0100, L503.6150 ####[facility] [address] [place], [address] RBC (Bld) [#/Vol] 4.20 10*6/uL Normal 4.2-5.4 [facility] Comment on above: Performed By: #### L 100.0100, L503.6150 ####[facility] [address] [place], [address] RDW SD 39.7 fl Normal 35.1-43.9 [facility] Comment on above: Performed By: #### L 100.0100, L503.6150 ####[facility] [address] [place], [address] WBC (Bld) [#/Vol] 7.6 10*3/uL Normal 4.4-11.0 [facility] Comment on above: Performed By: #### L 100.0100, L503.6150 ####[facility] [address] [place], [address] Eosinophil percentageOrdered By: Ivelisse Rmairez on 08-12-2024 Eosinophils/100 WBC (Bld) 2.9 % 0-5 [facility] Erythrocyte distribution wid th ratioOrdered By: Ivelisse Ramirez on 08-12-2024 Erythrocyte distribution width (RBC) [Ratio] 13.4 % 11.6-14.6 [facility] Erythrocyte distribution wid th standard deviationOrdered By: Ivelisse Ramirez on 08-12-2024 Erythrocyte distribution width (RBC) [Entitic vol] 39.7 fL 35.1-43.9 [facility] Erythrocyte distribution width (RBC) [Ratio] 39.7 fl 35.1-43.9 [facility] Gastroenterology Visit Repor ton 08-12-2024 Gastroenterology Visit Report Normal [facility] Hematocrit Auto (Bld) [Volum e fraction]Ordered By: Ivelisse Ramirez on 08-12-2024 Hematocrit (Bld) [Volume fraction] 34.1 % Low 37-47 [facility] Hemoglobin measurementOrdere d By: Ivelisse Rmairez on 08-12-2024 Hemoglobin (Bld) [Mass/Vol] 10.7 g/dL Low 12.0-15.0 [facility] Immature granulocytes/100 WB C Auto (Bld)Ordered By: Ivelisse Ramirez on 08-12-2024 Immature granulocytes/100 WBC (Bld) 0.300 % 0.0-0.9 [facility] Comment on above: IG% - Immature Granu locytes (promyelocytes, myelocytes and metamyelocytes) > 1% indicates that a LEFT SHIFT is Present. Ironon 08-12-2024 Iron [Mass/Vol] 33 ug/dL Low 50-170 [facility] Comment on above: Performed By: #### L 100.0100, L503.6150 ####[facility] [address] [place], [address] Iron (Unsp spec) [Mass/Mass] Ordered By: Ivelisse Ramirez on 08-12-2024 Iron [Mass/Vol] 33 ug/dL Low 50-170 [facility] Iron measurement (mass/mass) Ordered By: Ivelisse Ramirez on 08-12-2024 Iron (Unsp spec) [Mass/Mass] 33 ug/dL Low 50-170 [facility] Lymphocytes Auto (Unsp spec) [#/Vol]Ordered By: Ivelisse Ramirez on 08-12-2024 Lymphocytes (Bld) [#/Vol] 2.78 10*3/uL 0.83-4.51 [facility] Lymphocytes/100 WBC Auto (Un sp spec)Ordered By: Ivelisse Ramirez on 08-12-2024 Lymphocytes/100 WBC (Bld) 36.7 % 19-41 [facility] MCV (mean corpuscular volume ) determinationOrdered By: Ivelisse Ramirez on 08-12-2024 MCV (RBC) [Entitic vol] 81.2 fL 81-99 [facility] Mean corpuscular hemoglobin (MCH) determinationOrdered By: Ivelisse Ramirez on 08-12-2024 MCH (RBC) [Entitic mass] 25.5 pg Low 27.0-32.0 [facility] Mean corpuscular hemoglobin concentration (MCHC) determinationOrdered By: Ivelisse Ramirez on 08-12-2024 MCHC (RBC) [Mass/Vol] 31.4 g/dL Low 32-36 [facility] Mean platelet volume determi nationOrdered By: Ivelisse Ramirez on 08-12-2024 Platelet mean volume (Bld) [Entitic vol] 10.1 fL 6.2-12.0 [facility] Monocyte percentageOrdered B y: Ivelisse Ramirez on 08-12-2024 Monocytes/100 WBC (Bld) 4.5 % 0-10 [facility] Neutrophil percentageOrdered By: Ivelisse Ramirez on 08-12-2024 Neutrophils/100 WBC (Bld) 54.9 % 47-70 [facility] Nucleated red blood cell per centageOrdered By: Ivelisse Ramirez on 08-12-2024 Nucleated RBC/100 WBC (Bld) [Ratio] 0 % 0-5 [facility] Platelet countOrdered By: Acacia Ramirez on 08-12-2024 Platelets (Bld) [#/Vol] 277 10*3/uL 150-450 [facility] RBC Auto (Bld) [#/Vol]Ordere d By: Ivelisse Ramirez on 08-12-2024 RBC (Bld) [#/Vol] 4.20 10*6/uL 4.2-5.4 [facility] White blood cell (WBC) count Ordered By: Ivelisse Ramirez on 08-12-2024 WBC (Bld) [#/Vol] 7.6 10*3/uL 4.4-11.0 [facility] Absolute lymphocyte countOrd ered By: Marielena Roberts on 07-29-2024 Lymphocytes Auto (Unsp spec) [#/Vol] 2.57 10*3/uL 0.83-4.51 [facility] Absolute neutrophil countOrd ered By: Marielena Roberts on 07-29-2024 Neutrophils (Bld) [#/Vol] 6.6 10*3/uL 2.0-7.7 [facility] Automated lymphocyte count a s percentage of total leukocytesOrdered By: Marielena Roberts on 07-29-2024 Lymphocytes/100 WBC Auto (Unsp spec) 26.3 % 19-41 [facility] Basic Metabolic Profile (BMP )on 07-29-2024 BUN/CRE 11.7 RATIO Normal 10-20 [facility] Comment on above: Performed By: #### L 500.2500, L100.0100 ####[facility] [address] [place], [address] CA,Total 9.1 mg/dL Normal 8.5-10.1 [facility] Comment on above: Performed By: #### L 500.2500, L100.0100 ####[facility] [address] [place], [address] Chloride [Moles/Vol] 107 mmol/L Normal 98-107 [facility] Comment on above: Performed By: #### L 500.2500, L100.0100 ####[facility] [address] [place], [address] CO2 [Moles/Vol] 25.0 mmol/L Normal 21.0-32.0 [facility] Comment on above: Performed By: #### L 500.2500, L100.0100 ####[facility] [address] [place], [address] Creatinine [Mass/Vol] 0.94 mg/dL Normal 0.55-1.02 [facility] Comment on above: Result Comment: The validity of the calculated GFR GFRAA in patients over70 years has not been determined. Clinical correlation isessential. Performed By: #### L 500.2500, L100.0100 ####[facility] [address] [place], [address] ECRCL 46.56 ml/min Normal [facility] Comment on above: Performed By: #### L 500.2500, L100.0100 ####[facility] [address] [place], [address] EST GFR - AA 76 mL/min Normal >60 [facility] Comment on above: Result Comment: Afri can Singaporean GFR Calc Performed By: #### L 500.2500, L100.0100 ####[facility] [address] [place], [address] GAP 8 Normal 5-15 [facility] Comment on above: Performed By: #### L 500.2500, L100.0100 ####[facility] [address] [place], [address] GFR/1.73 sq M.predicted among non-blacks MDRD (S/P/Bld) [Vol rate/Area] 63 mL/min/{1.73_m2} Normal >60 [facility] Comment on above: Result Comment: Non- GFR Calc Performed By: #### L 500.2500, L100.0100 ####[facility] [address] [place], [address] Glucose [Mass/Vol] 110 mg/dL High 74-106 [facility] Comment on above: Result Comment: Fast ing Glucose result from 100 to 125 mg/dLsuggests IMPAIRED HOMEOSTASIS per A.D.A. criteria. Performed By: #### L 500.2500, L100.0100 ####[facility] [address] [place], [address] Potassium [Moles/Vol] 3.8 mmol/L Normal 3.5-5.1 [facility] Comment on above: Performed By: #### L 500.2500, L100.0100 ####[facility] [address] [place], [address] Sodium [Moles/Vol] 141 mmol/L Normal 136-145 [facility] Comment on above: Performed By: #### L 500.2500, L100.0100 ####[facility] [address] [place], [address] Urea nitrogen [Mass/Vol] 11 mg/dL Normal 7-18 [facility] Comment on above: Performed By: #### L 500.2500, L100.0100 ####[facility] [address] [place], [address] Basophil percentageOrdered B y: Marielena Roberts on 07-29-2024 Basophils/100 WBC (Bld) 0.2 % 0-1 [facility] Bedside Glucoseon 07-29-2024 FINGERSTICK GLU 130 mg/dL High 74-106 [facility] Comment on above: Result Comment: SHARON GEMENT OF PATIENT CARE PER NURSING PROTOCOL Performed By: #### L 501.080 ####[facility] [address] [place], [address] FINGERSTICK GLU 94 mg/dL Normal 74-106 [facility] Comment on above: Result Comment: SHARON GEMENT OF PATIENT CARE PER NURSING PROTOCOL Performed By: #### L 501.080 ####[facility] [address] [place], [address] Blood urea nitrogen (BUN)/cr eatinine ratioOrdered By: Marielena Roberts on 07-29-2024 Urea nitrogen/Creatinine [Mass ratio] 11.7 mg/mg 10-20 [facility] CBC W/Diff, Automatedon - Absolute Lymph 2.57 X10 3/uL Normal 0.83-4.51 [facility] Comment on above: Performed By: #### L 500.2500, L100.0100 ####[facility] [address] [place], [address] Absolute Neut 6.6 X10 3/uL Normal 2.0-7.7 [facility] Comment on above: Performed By: #### L 500.2500, L100.0100 ####[facility] [address] [place], [address] Basophils/100 WBC (Bld) 0.2 % Normal 0-1 [facility] Comment on above: Performed By: #### L 500.2500, L100.0100 ####[facility] [address] [place], [address] Eosinophils/100 WBC (Bld) 1.6 % Normal 0-5 [facility] Comment on above: Performed By: #### L 500.2500, L100.0100 ####[facility] [address] [place], [address] Erythrocyte distribution width (RBC) [Ratio] 15.1 % High 11.6-14.6 [facility] Comment on above: Performed By: #### L 500.2500, L100.0100 ####[facility] [address] [place], [address] Hematocrit (Bld) [Volume fraction] 30.4 % Low 37-47 [facility] Comment on above: Performed By: #### L 500.2500, L100.0100 ####[facility] [address] [place], [address] Hemoglobin (Bld) [Mass/Vol] 10.1 g/dL Low 12.0-15.0 [facility] Comment on above: Performed By: #### L 500.2500, L100.0100 ####[facility] [address] [place], [address] IG% 0.400 Normal 0.0-0.9 [facility] Comment on above: Result Comment: IG% - Immature Granulocytes (promyelocytes, myelocytes andmetamyelocytes) > 1% indicates that a LEFT SHIFT is Present. Performed By: #### L 500.2500, L100.0100 ####[facility] [address] [place], [address] Lymphocytes/100 WBC (Bld) 26.3 % Normal 19-41 [facility] Comment on above: Performed By: #### L 500.2500, L100.0100 ####[facility] [address] [place], [address] MCH (RBC) [Entitic mass] 26.9 pg Low 27.0-32.0 [facility] Comment on above: Performed By: #### L 500.2500, L100.0100 ####[facility] [address] [place], [address] MCHC (RBC) [Mass/Vol] 33.2 g/dL Normal 32-36 [facility] Comment on above: Performed By: #### L 500.2500, L100.0100 ####[facility] [address] [place], [address] MCV (RBC) [Entitic vol] 81.1 fL Normal 81-99 [facility] Comment on above: Performed By: #### L 500.2500, L100.0100 ####[facility] [address] [place], [address] Monocytes/100 WBC (Bld) 4.0 % Normal 0-10 [facility] Comment on above: Performed By: #### L 500.2500, L100.0100 ####[facility] [address] [place], [address] Neutrophils/100 WBC (Bld) 67.5 % Normal 47-70 [facility] Comment on above: Performed By: #### L 500.2500, L100.0100 ####[facility] [address] [place], [address] Nucleated RBC (Bld) [#/Vol] 0 10*3/uL Normal 0-5 [facility] Comment on above: Performed By: #### L 500.2500, L100.0100 ####[facility] [address] [place], [address] Platelet mean volume (Bld) [Entitic vol] 9.1 fL Normal 6.2-12.0 [facility] Comment on above: Performed By: #### L 500.2500, L100.0100 ####[facility] [address] [place], [address] Platelets (Bld) [#/Vol] 218 10*3/uL Normal 150-450 [facility] Comment on above: Performed By: #### L 500.2500, L100.0100 ####[facility] [address] [place], [address] RBC (Bld) [#/Vol] 3.75 10*6/uL Low 4.2-5.4 [facility] Comment on above: Performed By: #### L 500.2500, L100.0100 ####[facility] [address] [place], [address] RDW SD 43.9 fl Normal 35.1-43.9 [facility] Comment on above: Performed By: #### L 500.2500, L100.0100 ####[facility] [address] [place], [address] WBC (Bld) [#/Vol] 9.8 10*3/uL Normal 4.4-11.0 [facility] Comment on above: Performed By: #### L 500.2500, L100.0100 ####[facility] [address] [place], [address] Carbon dioxide measurementOr dered By: Marielena Roberts on 07-29-2024 CO2 [Moles/Vol] 25.0 mmol/L 21.0-32.0 [facility] Chloride measurementOrdered By: Marielena Roberts on 07-29-2024 Chloride [Moles/Vol] 107 mmol/L 98-107 [facility] Eosinophil percentageOrdered By: Marielena Roberts on 07-29-2024 Eosinophils/100 WBC (Bld) 1.6 % 0-5 [facility] Erythrocyte distribution wid th ratioOrdered By: Marielena Roberts on 07-29-2024 Erythrocyte distribution width (RBC) [Ratio] 15.1 % High 11.6-14.6 [facility] Erythrocyte distribution wid th standard deviationOrdered By: Marielena Roberts on 07-29-2024 Erythrocyte distribution width (RBC) [Entitic vol] 43.9 fL 35.1-43.9 [facility] Erythrocyte distribution width (RBC) [Ratio] 43.9 fl 35.1-43.9 [facility] Estimated glomerular filtrat ion rate (GFR) AmericanOrdered By: Marielena Roberts on 07-29-2024 Estimated GFR (MDRD) Amer 76 mL/min >60 [facility] Comment on above: GFR Calc Estimation of creatinine chi aranceOrdered By: Marielena Roberts on 07-29-2024 Estimated Creatinine Clearance Calc 46.56 ml/min [facility] Glomerular filtration rate ( GFR) estimationOrdered By: Marielena Roberts on 07-29-2024 Estimated GFR (MDRD) Non-Af Amer 63 mL/min >60 [facility] Comment on above: Non- GFR Calc GFR/1.73 sq M.predicted among non-blacks MDRD (S/P/Bld) [Vol rate/Area] 63 mL/min/{1.73_m2} >60 [facility] Comment on above: Non- GFR Calc Glucose measurementOrdered B y: Marielena Roberts on 07-29-2024 Glucose [Mass/Vol] 110 mg/dL High 74-106 [facility] Comment on above: Fasting Glucose resu lt from 100 to 125 mg/dL suggests IMPAIRED HOMEOSTASIS per A.D.A. criteria. [place] [facility] deOrdered By: Marielena Roberts on 07-29-2024 Bedside Glucose (Misc Panel) 130 mg/dL High 74-106 [facility] Comment on above: MANAGEMENT OF PATIEN T CARE PER NURSING PROTOCOL Glucose [Mass/Vol] 130 mg/dL High 74-106 [facility] Comment on above: MANAGEMENT OF PATIEN T CARE PER NURSING PROTOCOL Hematocrit Auto (Bld) [Volum e fraction]Ordered By: Marielena Roberts on 07-29-2024 Hematocrit (Bld) [Volume fraction] 30.4 % Low 37-47 [facility] Hemoglobin measurementOrdere d By: Marielena Roberts on 07-29-2024 Hemoglobin (Bld) [Mass/Vol] 10.1 g/dL Low 12.0-15.0 [facility] Immature granulocytes/100 WB C Auto (Bld)Ordered By: Marielena Roberts on 07-29-2024 Immature granulocytes/100 WBC (Bld) 0.400 % 0.0-0.9 [facility] Comment on above: IG% - Immature Granu locytes (promyelocytes, myelocytes and metamyelocytes) > 1% indicates that a LEFT SHIFT is Present. Lymphocytes Auto (Unsp spec) [#/Vol]Ordered By: Marielena Roberts on 07-29-2024 Lymphocytes (Bld) [#/Vol] 2.57 10*3/uL 0.83-4.51 [facility] Lymphocytes/100 WBC Auto (Un sp spec)Ordered By: Marielena Roberts on 07-29-2024 Lymphocytes/100 WBC (Bld) 26.3 % 19-41 [facility] MCV (mean corpuscular volume ) determinationOrdered By: Marielena Roberts on 07-29-2024 MCV (RBC) [Entitic vol] 81.1 fL 81-99 [facility] Mean corpuscular hemoglobin (MCH) determinationOrdered By: Marielena Roberts on 07-29-2024 MCH (RBC) [Entitic mass] 26.9 pg Low 27.0-32.0 [facility] Mean corpuscular hemoglobin concentration (MCHC) determinationOrdered By: Marielena Roberts on 07-29-2024 MCHC (RBC) [Mass/Vol] 33.2 g/dL 32-36 [facility] Comment on above: Delta: 31.6 on 07/28 Mean platelet volume determi nationOrdered By: Marielena Roberts on 07-29-2024 Platelet mean volume (Bld) [Entitic vol] 9.1 fL 6.2-12.0 [facility] Monocyte percentageOrdered B y: Marielena Roberts on 07-29-2024 Monocytes/100 WBC (Bld) 4.0 % 0-10 [facility] Neutrophil percentageOrdered By: Marielena Roberts on 07-29-2024 Neutrophils/100 WBC (Bld) 67.5 % 47-70 [facility] Nucleated red blood cell per centageOrdered By: Marielena Roberts on 07-29-2024 Nucleated RBC/100 WBC (Bld) [Ratio] 0 % 0-5 [facility] Platelet countOrdered By: Emi Roberts on 07-29-2024 Platelets (Bld) [#/Vol] 218 10*3/uL 150-450 [facility] Potassium measurementOrdered By: Marielena Roberts on 07-29-2024 Potassium [Moles/Vol] 3.8 mmol/L 3.5-5.1 [facility] RBC Auto (Bld) [#/Vol]Ordere d By: Marielena Roberts on 07-29-2024 RBC (Bld) [#/Vol] 3.75 10*6/uL Low 4.2-5.4 [facility] Serum anion gap measurementO rdered By: Marielena Roberts on 07-29-2024 Anion gap [Moles/Vol] 8 mmol/L 5-15 [facility] Serum or plasma calcium nya urement (mass/volume)Ordered By: Marielena Roberts on 07-29-2024 Calcium [Mass/Vol] 9.1 mg/dL 8.5-10.1 [facility] Serum or plasma creatinine m easurement (mass/volume)Ordered By: Marielena Roberts on 07-29-2024 Creatinine [Mass/Vol] 0.94 mg/dL 0.55-1.02 [facility] Comment on above: The validity of the calculated GFR & GFRAA in patients over 70 years has not been determined. Clinical correlation is essential. Serum or plasma urea nitroge n measurement (mass/volume)Ordered By: Marielena Roberts on 07-29-2024 Urea nitrogen [Mass/Vol] 11 mg/dL 7-18 [facility] Sodium levelOrdered By: Inessa Roberts on 07-29-2024 Sodium [Moles/Vol] 141 mmol/L 136-145 [facility] White blood cell (WBC) count Ordered By: Marielena Roberts on 07-29-2024 WBC (Bld) [#/Vol] 9.8 10*3/uL 4.4-11.0 [facility] Activated partial thrombopla stin time (aPTT) in platelet poor plasma by coagulation aOrdered By: Wolf Matias on 07-28-2024 aPTT Coag (PPP) [Time] 29.0 s 24.1-36.2 [facility] Basic Metabolic Profile (BMP )on 07-28-2024 BUN/CRE 14.7 RATIO Normal 10-20 [facility] Comment on above: Performed By: #### L 501.9985, L300.3900, L100.0100, L500.2500, L300.4310 ####[facility] [address] [place], [address] CA,Total 9.0 mg/dL Normal 8.5-10.1 [facility] Comment on above: Performed By: #### L 501.9985, L300.3900, L100.0100, L500.2500, L300.4310 ####[facility] [address] [place], [address] Chloride [Moles/Vol] 110 mmol/L High 98-107 [facility] Comment on above: Performed By: #### L 501.9985, L300.3900, L100.0100, L500.2500, L300.4310 ####[facility] [address] [place], [address] CO2 [Moles/Vol] 24.0 mmol/L Normal 21.0-32.0 [facility] Comment on above: Performed By: #### L 501.9985, L300.3900, L100.0100, L500.2500, L300.4310 ####[facility] [address] [place], [address] Creatinine [Mass/Vol] 1.02 mg/dL Normal 0.55-1.02 [facility] Comment on above: Result Comment: The validity of the calculated GFR GFRAA in patients over70 years has not been determined. Clinical correlation isessential. Performed By: #### L 501.9985, L300.3900, L100.0100, L500.2500, L300.4310 ####[facility] [address] [place], [address] ECRCL 46.88 ml/min Normal [facility] Comment on above: Performed By: #### L 501.9985, L300.3900, L100.0100, L500.2500, L300.4310 ####[facility] [address] [place], [address] EST GFR - AA 70 mL/min Normal >60 [facility] Comment on above: Result Comment: Afri can Singaporean GFR Calc Performed By: #### L 501.9985, L300.3900, L100.0100, L500.2500, L300.4310 ####[facility] [address] [place], [address] GAP 7 Normal 5-15 [facility] Comment on above: Performed By: #### L 501.9985, L300.3900, L100.0100, L500.2500, L300.4310 ####[facility] [address] [place], [address] GFR/1.73 sq M.predicted among non-blacks MDRD (S/P/Bld) [Vol rate/Area] 58 mL/min/{1.73_m2} Low >60 [facility] Comment on above: Result Comment: Non- GFR Calc Performed By: #### L 501.9985, L300.3900, L100.0100, L500.2500, L300.4310 ####[facility] [address] [place], [address] Glucose [Mass/Vol] 139 mg/dL High 74-106 [facility] Comment on above: Result Comment: Fast ing Glucose result greater than or equal to 126 mg/dLsuggests DIABETES MELLITUS per A.D.A. criteria. Performed By: #### L 501.9985, L300.3900, L100.0100, L500.2500, L300.4310 ####[facility] [address] [place], [address] Potassium [Moles/Vol] 4.1 mmol/L Normal 3.5-5.1 [facility] Comment on above: Performed By: #### L 501.9985, L300.3900, L100.0100, L500.2500, L300.4310 ####[facility] [address] [place], [address] Sodium [Moles/Vol] 142 mmol/L Normal 136-145 [facility] Comment on above: Performed By: #### L 501.9985, L300.3900, L100.0100, L500.2500, L300.4310 ####[facility] [address] [place], [address] Urea nitrogen [Mass/Vol] 15 mg/dL Normal 7-18 [facility] Comment on above: Performed By: #### L 501.9985, L300.3900, L100.0100, L500.2500, L300.4310 ####[facility] [address] [place], [address] Bedside Glucoseon 07-28-2024 FINGERSTICK GLU 174 mg/dL High 74-106 [facility] Comment on above: Result Comment: SHARON LUTHER OF PATIENT CARE PER NURSING PROTOCOL Performed By: #### L 501.080 ####[facility] [address] [place], [address] FINGERSTICK GLU 116 mg/dL High 74-106 [facility] Comment on above: Result Comment: SHARON GEMENT OF PATIENT CARE PER NURSING PROTOCOL Performed By: #### L 501.080 ####[facility] [address] [place], [address] FINGERSTICK GLU 129 mg/dL High 74-106 [facility] Comment on above: Result Comment: SHARON GEMENT OF PATIENT CARE PER NURSING PROTOCOL Performed By: #### L 501.080 ####[facility] [address] [place], [address] FINGERSTICK GLU 133 mg/dL High 74-106 [facility] Comment on above: Result Comment: SHARON GEMENT OF PATIENT CARE PER NURSING PROTOCOL Performed By: #### L 501.080 ####[facility] [address] [place], [address] CBC W/Diff, Automatedon 07-02 Absolute Lymph 2.43 X10 3/uL Normal 0.83-4.51 [facility] Comment on above: Performed By: #### L 501.9985, L300.3900, L100.0100, L500.2500, L300.4310 ####[facility] [address] [place], [address] Absolute Neut 4.3 X10 3/uL Normal 2.0-7.7 [facility] Comment on above: Performed By: #### L 501.9985, L300.3900, L100.0100, L500.2500, L300.4310 ####[facility] [address] [place], [address] Basophils/100 WBC (Bld) 0.4 % Normal 0-1 [facility] Comment on above: Performed By: #### L 501.9985, L300.3900, L100.0100, L500.2500, L300.4310 ####[facility] [address] [place], [address] Eosinophils/100 WBC (Bld) 1.5 % Normal 0-5 [facility] Comment on above: Performed By: #### L 501.9985, L300.3900, L100.0100, L500.2500, L300.4310 ####[facility] [address] [place], [address] Erythrocyte distribution width (RBC) [Ratio] 15.8 % High 11.6-14.6 [facility] Comment on above: Performed By: #### L 501.9985, L300.3900, L100.0100, L500.2500, L300.4310 ####[facility] [address] [place], [address] Hematocrit (Bld) [Volume fraction] 30.4 % Low 37-47 [facility] Comment on above: Performed By: #### L 501.9985, L300.3900, L100.0100, L500.2500, L300.4310 ####[facility] [address] [place], [address] Hemoglobin (Bld) [Mass/Vol] 9.6 g/dL Low 12.0-15.0 [facility] Comment on above: Performed By: #### L 501.9985, L300.3900, L100.0100, L500.2500, L300.4310 ####[facility] [address] [place], [address] IG% 0.100 Normal 0.0-0.9 [facility] Comment on above: Result Comment: IG% - Immature Granulocytes (promyelocytes, myelocytes andmetamyelocytes) > 1% indicates that a LEFT SHIFT is Present. Performed By: #### L 501.9985, L300.3900, L100.0100, L500.2500, L300.4310 ####[facility] [address] [place], [address] Lymphocytes/100 WBC (Bld) 33.5 % Normal 19-41 [facility] Comment on above: Performed By: #### L 501.9985, L300.3900, L100.0100, L500.2500, L300.4310 ####[facility] [address] [place], [address] MCH (RBC) [Entitic mass] 26.4 pg Low 27.0-32.0 [facility] Comment on above: Performed By: #### L 501.9985, L300.3900, L100.0100, L500.2500, L300.4310 ####[facility] [address] [place], [address] MCHC (RBC) [Mass/Vol] 31.6 g/dL Low 32-36 [facility] Comment on above: Performed By: #### L 501.9985, L300.3900, L100.0100, L500.2500, L300.4310 ####[facility] [address] [place], [address] MCV (RBC) [Entitic vol] 83.7 fL Normal 81-99 [facility] Comment on above: Performed By: #### L 501.9985, L300.3900, L100.0100, L500.2500, L300.4310 ####[facility] [address] [place], [address] Monocytes/100 WBC (Bld) 5.2 % Normal 0-10 [facility] Comment on above: Performed By: #### L 501.9985, L300.3900, L100.0100, L500.2500, L300.4310 ####[facility] [address] [place], [address] Neutrophils/100 WBC (Bld) 59.3 % Normal 47-70 [facility] Comment on above: Performed By: #### L 501.9985, L300.3900, L100.0100, L500.2500, L300.4310 ####[facility] [address] [place], [address] Nucleated RBC (Bld) [#/Vol] 0 10*3/uL Normal 0-5 [facility] Comment on above: Performed By: #### L 501.9985, L300.3900, L100.0100, L500.2500, L300.4310 ####[facility] [address] [place], [address] Platelet mean volume (Bld) [Entitic vol] 9.4 fL Normal 6.2-12.0 [facility] Comment on above: Performed By: #### L 501.9985, L300.3900, L100.0100, L500.2500, L300.4310 ####[facility] [address] [place], [address] Platelets (Bld) [#/Vol] 214 10*3/uL Normal 150-450 [facility] Comment on above: Performed By: #### L 501.9985, L300.3900, L100.0100, L500.2500, L300.4310 ####[facility] [address] [place], [address] RBC (Bld) [#/Vol] 3.63 10*6/uL Low 4.2-5.4 [facility] Comment on above: Performed By: #### L 501.9985, L300.3900, L100.0100, L500.2500, L300.4310 ####[facility] [address] [place], [address] RDW SD 48.3 fl High 35.1-43.9 [facility] Comment on above: Performed By: #### L 501.9985, L300.3900, L100.0100, L500.2500, L300.4310 ####[facility] [address] [place], [address] WBC (Bld) [#/Vol] 7.3 10*3/uL Normal 4.4-11.0 [facility] Comment on above: Performed By: #### L 501.9985, L300.3900, L100.0100, L500.2500, L300.4310 ####[facility] [address] [place], [address] Colonoscopy Reporton 025 Colonoscopy Report Normal [facility] EGD Reporton 07-28-2024 EGD Report Normal [facility] Hemoglobin A1con 07-28-2024 HbA1c (Bld) [Mass fraction] 5.7 % High 3.8-5.6 [facility] Comment on above: Result Comment: Norm al < 5.7 % Prediabetic 5.7 - 6.4 % Diabetic >or= 6.5 % Please note range changes. Performed By: #### L 501.9985, L300.3900, L100.0100, L500.2500, L300.4310 ####[facility] [address] [place], [address] Hemoglobin A1c percentageOrd ered By: Wolf Matias on 07-28-2024 HbA1c (Bld) [Mass fraction] 5.7 % High 3.8-5.6 [facility] Comment on above: Normal < 5.7 % Predi abetic 5.7 - 6.4 % Diabetic >or= 6.5 % Please note range changes. International normalized rat io (INR) calculationOrdered By: Wolf Matias on 07-28-2024 INR Coag (Bld) [Relative time] 1.1 {INR} [facility] MR/PN.GIon 07-28-2024 MR/PN.GI Normal [facility] MR/POSTOP.ANEon 07-28-2024 MR/POSTOP.ANE Normal [facility] MR/WSQUKGGG7jw 07-28-2024 MR/POSTOPAN2 Normal [facility] Partial Thromboplast Timeon 07-28-2024 aPTT Coag (Bld) [Time] 29.0 s Normal 24.1-36.2 [facility] Comment on above: Performed By: #### L 501.9985, L300.3900, L100.0100, L500.2500, L300.4310 ####[facility] [address] [place], [address] Prothrombin Time w/INRon INR Coag (PPP) [Relative time] 1.1 {INR} Normal [facility] Comment on above: Performed By: #### L 501.9985, L300.3900, L100.0100, L500.2500, L300.4310 ####[facility] [address] [place], [address] PT Coag (PPP) [Time] 14.1 s Normal 11.7-14.9 [facility] Comment on above: Performed By: #### L 501.9985, L300.3900, L100.0100, L500.2500, L300.4310 ####[facility] [address] [place], [address] Prothrombin timeOrdered By: Wolf Matias on 07-28-2024 PT Coag (PPP) [Time] 14.1 s 11.7-14.9 [facility] aPTT Coag (PPP) [Time]Ordere d By: Wolf Matias on 07-28-2024 aPTT Coag (Bld) [Time] 29.0 s 24.1-36.2 [facility] Albumin to globulin ratioOrd ered By: Mai Pérez on 07-27-2024 Albumin/Globulin [Mass ratio] 0.9 {ratio} Normal 0.9-2.4 [facility] Comment on above: Order Comment: DELAY ED, PT.RECEIVING BLOOD; OKAY TO DRAW WITH CBCD SILVANO GUZMAN Performed By: #### L 500.4050 ####[facility] [address] [place], [address] Bedside Glucoseon 07-27-2024 FINGERSTICK GLU 149 mg/dL High 74-106 [facility] Comment on above: Result Comment: SHARON GEMENT OF PATIENT CARE PER NURSING PROTOCOL Performed By: #### L 501.080 ####[facility] [address] [place], [address] FINGERSTICK GLU 118 mg/dL High 74-106 [facility] Comment on above: Result Comment: SHARON GEMENT OF PATIENT CARE PER NURSING PROTOCOL Performed By: #### L 501.080 ####[facility] [address] [place], [address] FINGERSTICK GLU 140 mg/dL High 74-106 [facility] Comment on above: Result Comment: SHARON GEMENT OF PATIENT CARE PER NURSING PROTOCOL Performed By: #### L 501.080 ####[facility] [address] [facility] [address] FINGERSTICK GLU 93 mg/dL Normal 74-106 [facility] Comment on above: Result Comment: SHARON GEMENT OF PATIENT CARE PER NURSING PROTOCOL Performed By: #### L 501.080 ####[facility] [address] [place], [address] Bilirubin, totalOrdered By: Mai Pérez on 07-27-2024 Bilirubin [Mass/Vol] 0.80 mg/dL Normal 0.20-1.00 [facility] Comment on above: For patients on eltr ombopag therapy, use of Dimension [place] TBIL is not recommended. Order Comment: DELAY ED, PT.RECEIVING BLOOD; OKAY TO DRAW WITH CBCD MYRONVICTOR HUGOOVIDIO GUZMAN Result Comment: For patients on eltrombopag therapy, use of Dimension [place] TBIL is not recommended. Performed By: #### L 500.4050 ####[facility] [address] [place], [address] CBC W/Diff, Automatedon 07-02 Absolute Lymph 3.08 X10 3/uL Normal 0.83-4.51 [facility] Comment on above: Order Comment: DELAY ED, PT.RECEIVING BLOOD Performed By: #### L 100.0100 ####[facility] [address] [place], [address] Absolute Neut 4.2 X10 3/uL Normal 2.0-7.7 [facility] Comment on above: Order Comment: DELAY ED, PT.RECEIVING BLOOD Performed By: #### L 100.0100 ####[facility] [address] [place], [address] Basophils/100 WBC (Bld) 0.3 % Normal 0-1 [facility] Comment on above: Order Comment: DELAY ED, PT.RECEIVING BLOOD Performed By: #### L 100.0100 ####[facility] [address] [place], [address] Eosinophils/100 WBC (Bld) 1.3 % Normal 0-5 [facility] Comment on above: Order Comment: DELAY ED, PT.RECEIVING BLOOD Performed By: #### L 100.0100 ####[facility] [address] [place], [address] Erythrocyte distribution width (RBC) [Ratio] 15.4 % High 11.6-14.6 [facility] Comment on above: Order Comment: DELAY ED, PT.RECEIVING BLOOD Performed By: #### L 100.0100 ####[facility] [address] [place], [address] Hematocrit (Bld) [Volume fraction] 28.5 % Low 37-47 [facility] Comment on above: Order Comment: DELAY ED, PT.RECEIVING BLOOD Performed By: #### L 100.0100 ####[facility] [address] [place], [address] Hemoglobin (Bld) [Mass/Vol] 9.5 g/dL Low 12.0-15.0 [facility] Comment on above: Order Comment: DELAY ED, PT.RECEIVING BLOOD Performed By: #### L 100.0100 ####[facility] [address] [place], [address] IG% 0.300 Normal 0.0-0.9 [facility] Comment on above: Order Comment: DELAY ED, PT.RECEIVING BLOOD Result Comment: IG% - Immature Granulocytes (promyelocytes, myelocytes andmetamyelocytes) > 1% indicates that a LEFT SHIFT is Present. Performed By: #### L 100.0100 ####[facility] [address] [place], [address] Lymphocytes/100 WBC (Bld) 39.6 % Normal 19-41 [facility] Comment on above: Order Comment: DELAY ED, PT.RECEIVING BLOOD Performed By: #### L 100.0100 ####[facility] [address] [place], [address] MCH (RBC) [Entitic mass] 27.3 pg Normal 27.0-32.0 [facility] Comment on above: Order Comment: DELAY ED, PT.RECEIVING BLOOD Performed By: #### L 100.0100 ####[facility] [address] [place], [address] MCHC (RBC) [Mass/Vol] 33.3 g/dL Normal 32-36 [facility] Comment on above: Order Comment: DELAY ED, PT.RECEIVING BLOOD Performed By: #### L 100.0100 ####[facility] [address] [place], [address] MCV (RBC) [Entitic vol] 81.9 fL Normal 81-99 [facility] Comment on above: Order Comment: DELAY ED, PT.RECEIVING BLOOD Performed By: #### L 100.0100 ####[facility] [address] [place], [address] Monocytes/100 WBC (Bld) 4.8 % Normal 0-10 [facility] Comment on above: Order Comment: DELAY ED, PT.RECEIVING BLOOD Performed By: #### L 100.0100 ####[facility] [address] [place], [address] Neutrophils/100 WBC (Bld) 53.7 % Normal 47-70 [facility] Comment on above: Order Comment: DELAY ED, PT.RECEIVING BLOOD Performed By: #### L 100.0100 ####[facility] [address] [place], [address] Nucleated RBC (Bld) [#/Vol] 0 10*3/uL Normal 0-5 [facility] Comment on above: Order Comment: DELAY ED, PT.RECEIVING BLOOD Performed By: #### L 100.0100 ####[facility] [address] [place], [address] Platelet mean volume (Bld) [Entitic vol] 9.1 fL Normal 6.2-12.0 [facility] Comment on above: Order Comment: DELAY ED, PT.RECEIVING BLOOD Performed By: #### L 100.0100 ####[facility] [address] [place], [address] Platelets (Bld) [#/Vol] 192 10*3/uL Normal 150-450 [facility] Comment on above: Order Comment: DELAY ED, PT.RECEIVING BLOOD Performed By: #### L 100.0100 ####[facility] [address] [place], [address] RBC (Bld) [#/Vol] 3.48 10*6/uL Low 4.2-5.4 [facility] Comment on above: Order Comment: DELAY ED, PT.RECEIVING BLOOD Performed By: #### L 100.0100 ####[facility] [address] [place], [address] RDW SD 45.1 fl High 35.1-43.9 [facility] Comment on above: Order Comment: DELAY ED, PT.RECEIVING BLOOD Performed By: #### L 100.0100 ####[facility] [address] [place], [address] WBC (Bld) [#/Vol] 7.8 10*3/uL Normal 4.4-11.0 [facility] Comment on above: Order Comment: DELAY ED, PT.RECEIVING BLOOD Performed By: #### L 100.0100 ####[facility] [address] [place], [address] Comprehensive Metabolic Prof ilon 07-27-2024 ALK P 73 U/L Normal 45-117 [facility] Comment on above: Order Comment: DELAY ED, PT.RECEIVING BLOOD; OKAY TO DRAW WITH CBCD PERCHARGE THOMAS Performed By: #### L 500.4050 ####[facility] [address] [place], [address] BUN/CRE 22.4 RATIO High 10-20 [facility] Comment on above: Order Comment: DELAY ED, PT.RECEIVING BLOOD; OKAY TO DRAW WITH CBCD PERCHARGE THOMAS Performed By: #### L 500.4050 ####[facility] [address] [place], [address] CA,Total 8.7 mg/dL Normal 8.5-10.1 [facility] Comment on above: Order Comment: DELAY ED, PT.RECEIVING BLOOD; OKAY TO DRAW WITH CBCD PERCHARGE THOMAS Performed By: #### L 500.4050 ####[facility] [address] [place], [address] Chloride [Moles/Vol] 108 mmol/L High 98-107 [facility] Comment on above: Order Comment: DELAY ED, PT.RECEIVING BLOOD; OKAY TO DRAW WITH CBCD PERCHARGE THOMAS Performed By: #### L 500.4050 ####[facility] [address] [place], [address] CO2 [Moles/Vol] 26.0 mmol/L Normal 21.0-32.0 [facility] Comment on above: Order Comment: DELAY ED, PT.RECEIVING BLOOD; OKAY TO DRAW WITH CBCD PERCHARGE THOMAS Performed By: #### L 500.4050 ####[facility] [address] [place], [address] Creatinine [Mass/Vol] 0.89 mg/dL Normal 0.55-1.02 [facility] Comment on above: Order Comment: DELAY ED, PT.RECEIVING BLOOD; OKAY TO DRAW WITH CBCD PERCHARGE THOMAS Result Comment: The validity of the calculated GFR GFRAA in patients over70 years has not been determined. Clinical correlation isessential. Performed By: #### L 500.4050 ####[facility] [address] [place], [place], [id number] ECRCL 56.83 ml/min Normal [facility] Comment on above: Order Comment: DELAY ED, PT.RECEIVING BLOOD; OKAY TO DRAW WITH CBCD PERCHARGE THOMAS Performed By: #### L 500.4050 ####[facility] [address] [place], [address] EST GFR - AA 81 mL/min Normal >60 [facility] Comment on above: Order Comment: DELAY ED, PT.RECEIVING BLOOD; OKAY TO DRAW WITH CBCD PERCHARGE THOMAS Result Comment: Afri can Singaporean GFR Calc Performed By: #### L 500.4050 ####[facility] [address] [place], [address] GAP 5 Normal 5-15 [facility] Comment on above: Order Comment: DELAY ED, PT.RECEIVING BLOOD; OKAY TO DRAW WITH CBCD PERCHARGE THOMAS Performed By: #### L 500.4050 ####[facility] [address] [place], [address] GFR/1.73 sq M.predicted among non-blacks MDRD (S/P/Bld) [Vol rate/Area] 67 mL/min/{1.73_m2} Normal >60 [facility] Comment on above: Order Comment: DELAY ED, PT.RECEIVING BLOOD; OKAY TO DRAW WITH CBCD PERCHARGE THOMAS Result Comment: Non- GFR Calc Performed By: #### L 500.4050 ####[facility] [address] [place], [address] Glucose [Mass/Vol] 123 mg/dL High 74-106 [facility] Comment on above: Order Comment: DELAY ED, PT.RECEIVING BLOOD; OKAY TO DRAW WITH CBCD PERCHARGE THOMAS Result Comment: Fast ing Glucose result from 100 to 125 mg/dLsuggests IMPAIRED HOMEOSTASIS per A.D.A. criteria. Performed By: #### L 500.4050 ####[facility] [address] [place], [address] Potassium [Moles/Vol] 3.8 mmol/L Normal 3.5-5.1 [facility] Comment on above: Order Comment: DELAY ED, PT.RECEIVING BLOOD; OKAY TO DRAW WITH CBCD PERCHARGE THOMAS Performed By: #### L 500.4050 ####[facility] [address] [place], [address] Sodium [Moles/Vol] 139 mmol/L Normal 136-145 [facility] Comment on above: Order Comment: DELAY ED, PT.RECEIVING BLOOD; OKAY TO DRAW WITH CBCD PERCHARGE THOMAS Performed By: #### L 500.4050 ####[facility] [address] [place], [address] T PROT 6.5 g/dL Normal 6.4-8.2 [facility] Comment on above: Order Comment: DELAY ED, PT.RECEIVING BLOOD; OKAY TO DRAW WITH CBCD PERCHARGE THOMAS Performed By: #### L 500.4050 ####[facility] [address] [place], [place], [address] Urea nitrogen [Mass/Vol] 20 mg/dL High 7-18 [facility] Comment on above: Order Comment: DELAY ED, PT.RECEIVING BLOOD; OKAY TO DRAW WITH CBCD PERCHARGE THOMAS Performed By: #### L 500.4050 ####[facility] [address] [place], [place], [address] Comprehensive Metabolic Prof ilOrdered By: Mai Pérez on 07-27-2024 AST [Catalytic activity/Vol] 8 U/L Low 15-37 [facility] Comment on above: Order Comment: DELAY ED, PT.RECEIVING BLOOD; OKAY TO DRAW WITH CBCD PERCHARGE THOMAS Performed By: #### L 500.4050 ####[facility] [address] [place], [place], [address] HH, Hemoglobin AND Hematocri ton 07-27-2024 Hematocrit (Bld) [Volume fraction] 20.8 % Low 37-47 [facility] Comment on above: Performed By: #### L 100.0600 ####[facility] [address] [place], [place], [address] Hemoglobin (Bld) [Mass/Vol] 7.0 g/dL Low 12.0-15.0 [facility] Comment on above: Performed By: #### L 100.0600 ####[facility] [address] [place], [place], [address] L501.4020on 07-27-2024 TROPONIN-I HS < 3 Low 3.0-54.0 [facility] Comment on above: Order Comment: 'TROP ' Serial specimen #1, #2 or #3: 3 Result Comment: Patrizia starks Note: New Test Units and Gender Specific Reference Ranges. For more information see Policy Stat Procedure [place] High Sensitivity Troponin (TNIH) and attachments. Performed By: #### L 501.4020 ####[facility] [address] [place], [place], [address] MR/CON.PCM.GIon 07-27-2024 MR/CON.PCM.GI Normal [facility] Serum globulin measurementOr dered By: Mai Pérez on 07-27-2024 Globulin (S) [Mass/Vol] 3.5 g/dL Normal 2.2-4.2 [facility] Comment on above: Order Comment: DELAY ED, PT.RECEIVING BLOOD; OKAY TO DRAW WITH CBCD PERCHARGE THOMAS Performed By: #### L 500.4050 ####[facility] [address] [place], [place], [address] Serum or plasma alanine adams otransferase (ALT) measurementOrdered By: Mai Pérez on 07-27-2024 ALT [Catalytic activity/Vol] 11 U/L Low 13-56 [facility] Comment on above: Order Comment: DELAY ED, PT.RECEIVING BLOOD; OKAY TO DRAW WITH CBCD PERCHARGE THOMAS Performed By: #### L 500.4050 ####[facility] [address] [place], [place], [address] Serum or plasma albumin nya urement (mass/volume)Ordered By: Mai Pérez on 07-27-2024 Albumin [Mass/Vol] 3.0 g/dL Low 3.2-5.0 [facility] Comment on above: Order Comment: DELAY ED, PT.RECEIVING BLOOD; OKAY TO DRAW WITH CBCD PERCHARGE THOMAS Performed By: #### L 500.4050 ####[facility] [address] [facility] [place], [place], [address] Serum or plasma alkaline saleem sphatase measurementOrdered By: Mai Pérez on 07-27-2024 ALP [Catalytic activity/Vol] 73 U/L 45-117 [facility] Total proteinOrdered By: Linda Pérez on 07-27-2024 Protein [Mass/Vol] 6.5 g/dL 6.4-8.2 [facility] 12 Lead EKGon 07-26-2024 12 Lead EKG Normal [facility] BRCon 07-26-2024 RC Normal [facility] Comment on above: Result Comment: [id number] ON RC TRANSFUSED 07/27/24 [id number] ON RC TRANSFUSED 07/27/24 0502 Performed By: #### B RC ####[facility] [address] [place], [address] Bedside Glucoseon 07-26-2024 FINGERSTICK GLU 171 mg/dL High 74-106 [facility] Comment on above: Result Comment: SHARON GEMENT OF PATIENT CARE PER NURSING PROTOCOL Performed By: #### L 501.080 ####[facility] [address] [place], [address] FINGERSTICK GLU 213 mg/dL High 74-106 [facility] Comment on above: Result Comment: SHARON GEMENT OF PATIENT CARE PER NURSING PROTOCOL Performed By: #### L 501.080 ####[facility] [address] [place], [address] Blood manual differential co mment interpretation (narrative result)Ordered By: David Daniels on 07-26-2024 Manual differential comment Akhil (Bld) [Interp] SCANNED [facility] Comment on above: LYMPHOCYTOSIS NOTED Brain/Head without Contrasto n 07-26-2024 Brain/Head without Contrast Normal [facility] CBC W/Diff, Automatedon 07-02 SMEAR COMMENT SCANNED Normal [facility] Comment on above: Result Comment: LYMP HOCYTOSIS NOTED Performed By: #### L 500.4050, L100.0100 ####[facility] [address] [place], [address] Chest 1 View (Portable)on Chest 1 View (Portable) Normal [facility] Comprehensive Metabolic Prof ilon 07-26-2024 Albumin [Mass/Vol] 3.3 g/dL Normal 3.2-5.0 [facility] Comment on above: Performed By: #### L 500.4050, L100.0100 ####[facility] [address] [place], [address] Albumin/Globulin [Mass ratio] 0.9 {ratio} Normal 0.9-2.4 [facility] Comment on above: Performed By: #### L 500.4050, L100.0100 ####[facility] [address] [place], [address] ALK P 95 U/L Normal 45-117 [facility] Comment on above: Performed By: #### L 500.4050, L100.0100 ####[facility] [address] [place], [address] ALT [Catalytic activity/Vol] 13 U/L Normal 13-56 [facility] Comment on above: Performed By: #### L 500.4050, L100.0100 ####[facility] [address] [place], [address] AST [Catalytic activity/Vol] 11 U/L Low 15-37 [facility] Comment on above: Performed By: #### L 500.4050, L100.0100 ####[facility] [address] [place], [address] Bilirubin [Mass/Vol] 0.40 mg/dL Normal 0.20-1.00 [facility] Comment on above: Result Comment: For patients on eltrombopag therapy, use of Dimension [place] TBIL is not recommended. Performed By: #### L 500.4050, L100.0100 ####[facility] [address] [place], [address] BUN/CRE 23.6 RATIO High 10-20 [facility] Comment on above: Performed By: #### L 500.4050, L100.0100 ####[facility] [address] [place], [address] CA,Total 9.3 mg/dL Normal 8.5-10.1 [facility] Comment on above: Performed By: #### L 500.4050, L100.0100 ####[facility] [address] [place], [address] Chloride [Moles/Vol] 100 mmol/L Normal 98-107 [facility] Comment on above: Performed By: #### L 500.4050, L100.0100 ####[facility] [address] [place], [address] CO2 [Moles/Vol] 24.0 mmol/L Normal 21.0-32.0 [facility] Comment on above: Performed By: #### L 500.4050, L100.0100 ####[facility] [address] [place], [address] Creatinine [Mass/Vol] 1.44 mg/dL High 0.55-1.02 [facility] Comment on above: Result Comment: The validity of the calculated GFR GFRAA in patients over70 years has not been determined. Clinical correlation isessential. Performed By: #### L 500.4050, L100.0100 ####[facility] [address] [place], [address] ECRCL 33.06 ml/min Normal [facility] Comment on above: Performed By: #### L 500.4050, L100.0100 ####[facility] [address] [place], [address] EST GFR - AA 47 mL/min Low >60 [facility] Comment on above: Result Comment: Afri can Singaporean GFR Calc Performed By: #### L 500.4050, L100.0100 ####[facility] [address] [place], [address] GAP 11 Normal 5-15 [facility] Comment on above: Performed By: #### L 500.4050, L100.0100 ####[facility] [address] [place], [address] GFR/1.73 sq M.predicted among non-blacks MDRD (S/P/Bld) [Vol rate/Area] 39 mL/min/{1.73_m2} Low >60 [facility] Comment on above: Result Comment: Non- GFR Calc Performed By: #### L 500.4050, L100.0100 ####[facility] [address] [place], [address] Globulin (S) [Mass/Vol] 3.8 g/dL Normal 2.2-4.2 [facility] Comment on above: Performed By: #### L 500.4050, L100.0100 ####[facility] [address] [place], [address] Glucose [Mass/Vol] 223 mg/dL High 74-106 [facility] Comment on above: Result Comment: Gluc ose result greater than or equal to 200 mg/dLsuggests DIABETES MELLITUS per A.D.A. criteria. Performed By: #### L 500.4050, L100.0100 ####[facility] [address] [place], [address] Potassium [Moles/Vol] 3.7 mmol/L Normal 3.5-5.1 [facility] Comment on above: Performed By: #### L 500.4050, L100.0100 ####[facility] [address] [place], [address] Sodium [Moles/Vol] 135 mmol/L Low 136-145 [facility] Comment on above: Performed By: #### L 500.4050, L100.0100 ####[facility] [address] [place], [address] T PROT 7.1 g/dL Normal 6.4-8.2 [facility] Comment on above: Performed By: #### L 500.4050, L100.0100 ####[facility] [address] [place], [place], [address] Urea nitrogen [Mass/Vol] 34 mg/dL High 7-18 [facility] Comment on above: Performed By: #### L 500.4050, L100.0100 ####[facility] [address] [place], [address] Emergency Department Summary on 07-26-2024 Emergency Department Summary Normal [facility] Ferritinon 07-26-2024 Ferritin [Mass/Vol] 6 ng/mL Low 8-252 [facility] Comment on above: Order Comment: Comme nts: may add to ED labs Performed By: #### B TS, L503.6550, L501.5200, L503.6030 ####[facility] [address] [place], [place], [phone] Ferritin measurementOrdered By: Mai Pérez on 07-26-2024 Ferritin [Mass/Vol] 6 ng/mL Low 8-252 [facility] Foot min 3 Viewson 5 Foot min 3 Views Normal [facility] H AND P Exam - Hospitaliston 07-26-2024 H&P Exam - Hospitalist Normal [facility] Iron (Unsp spec) [Mass/Mass] Ordered By: Mai Pérez on 07-26-2024 Iron [Mass/Vol] 19 ug/dL Low 50-170 [facility] Iron measurement (mass/mass) Ordered By: Mai Pérez on 07-26-2024 Iron (Unsp spec) [Mass/Mass] 19 ug/dL Low 50-170 [facility] Iron saturation [Mass fracti on]Ordered By: Mai Pérez on 07-26-2024 Iron Saturation 4.9 % Low 15.0-55.0 [facility] Iron+Iron Binding Capacityon 07-26-2024 Iron [Mass/Vol] 19 ug/dL Low 50-170 [facility] Comment on above: Order Comment: Comme nts: may add to ED labs Performed By: #### B TS, L503.6550, L501.5200, L503.6030 ####[facility] [address] [place], [address] IRON SATURATION 4.9 Low 15.0-55.0 [facility] Comment on above: Order Comment: Comme nts: may add to ED labs Performed By: #### B TS, L503.6550, L501.5200, L503.6030 ####[facility] [address] [place], [address] TIBC 384 ug/dL Normal 250-450 [facility] Comment on above: Order Comment: Comme nts: may add to ED labs Performed By: #### B TS, L503.6550, L501.5200, L503.6030 ####[facility] [address] [place], [address] L501.4020on 07-26-2024 TROPONIN-I HS 3 pg/mL Normal 3.0-54.0 [facility] Comment on above: Result Comment: Plea se Note: New Test Units and Gender Specific Reference Ranges. For more information see Policy Stat Procedure [place] High Sensitivity Troponin (TNIH) and attachments. Performed By: #### L 501.4020 ####[facility] [address] [place], [address] L501.5425on 07-26-2024 TROPONIN-I HS < 3 Low 3.0-54.0 [facility] Comment on above: Order Comment: 1Y Result Comment: Plea se Note: New Test Units and Gender Specific Reference Ranges. For more information see Policy Stat Procedure [place] High Sensitivity Troponin (TNIH) and attachments. Performed By: #### L 501.5425 ####[facility] [address] [place], [address] Lower GI hemoglobin IA Ql (S tl)Ordered By: David Daniels on 07-26-2024 Stool Occult Blood (DILIP) [facility] Magnesiumon 07-26-2024 Magnesium [Mass/Vol] 1.7 mg/dL Normal 1.6-2.6 [facility] Comment on above: Order Comment: Comme nts: may add to ED labs Performed By: #### B TS, L503.6550, L501.5200, L503.6019 ####[facility] [address] [place], [address] Magnesium measurementOrdered By: Mai Pérez on 07-26-2024 Magnesium [Mass/Vol] 1.7 mg/dL 1.6-2.6 [facility] Manual differential comment Akhil (Bld) [Interp]Ordered By: David Daniels on 07-26-2024 Differential Comment SCANNED [facility] Comment on above: LYMPHOCYTOSIS NOTED Partial Thromboplast Timeon 07-26-2024 aPTT Coag (Bld) [Time] 24.4 s Normal 24.1-36.2 [facility] Comment on above: Performed By: #### L 300.4310, L300.3900, M100.7900 ####[facility] [address] [place], [address] Prothrombin Time w/INRon INR Coag (PPP) [Relative time] 1.0 {INR} Normal [facility] Comment on above: Performed By: #### L 300.4310, L300.3900, M100.7900 ####[facility] [address] [place], [address] PT Coag (PPP) [Time] 12.9 s Normal 11.7-14.9 [facility] Comment on above: Performed By: #### L 300.4310, L300.3900, M100.7900 ####[facility] [address] [place], [address] Serum or plasma iron saturat ion measurement (mass fraction)Ordered By: Mai Pérez on 07-26-2024 Iron saturation [Mass fraction] 4.9 % Low 15.0-55.0 [facility] Spine Cervical without Contr ason 07-26-2024 Spine Cervical without Contras Normal [facility] Stool Occult Blood iFOBon 01 -26-2025 STOB Negative Normal [facility] Comment on above: Performed By: #### L 300.4310, L300.3900, M100.7900 ####[facility] [address] [place], [place], [address] Stool gastrointestinal hemog lobin detection by immunologic methodOrdered By: David Daniels on 07-26-2024 Lower GI hemoglobin IA Ql (Stl) [facility] TIBCOrdered By: Mai Pérez on 07-26-2024 Total Iron Binding Capacity 384 ug/dL 250-450 [facility] Troponin IOrdered By: Mai Pérez on 07-26-2024 Troponin I < 3 pg/mL Low 3.0-54.0 [facility] Comment on above: Please Note: New Clementina t Units and Gender Specific Reference Ranges. For more information see Policy Stat Procedure [place] High Sensitivity Troponin (TNIH) and attachments. Troponin I High Sensitivity < 3 pg/mL Low 3.0-54.0 [facility] Comment on above: Please Note: New Clementina t Units and Gender Specific Reference Ranges. For more information see Policy Stat Procedure [place] High Sensitivity Troponin (TNIH) and attachments. Type AND Screenon 07-26-2024 Ab SCREEN GEL Negative Normal [facility] Comment on above: Order Comment: A Performed By: #### B TS, L503.6550, L501.5200, L503.6030 ####[facility] [address] [place], [place], [address] Thin prep Papanicolaou smear with manual screeningOrdered By: Henri Kelly on 10-05-2023 Thin prep Papanicolaou smear with manual screening 122 mg/dL 74-106 [facility] Comment on above: MANAGEMENT OF PATIEN T CARE PER NURSING PROTOCOL Basophil percentageOrdered B y: Henri Kelly on 10-04-2023 Chloride [Moles/Vol] 107 mmol/L 98-107 [facility] Glucose [Mass/Vol] 111 mg/dL 74-106 [facility] Comment on above: Fasting Glucose resu lt from 100 to 125 mg/dL suggests IMPAIRED HOMEOSTASIS per A.D.A. criteria. Hemoglobin (Bld) [Mass/Vol] 10.7 g/dL 12.0-15.0 [facility] Potassium [Moles/Vol] 4.1 mmol/L 3.5-5.1 [facility] Sodium [Moles/Vol] 138 mmol/L 136-145 [facility] Hematocrit Auto (Bld) [Volum e fraction]Ordered By: Henri Kelly on 10-04-2023 Hematocrit (Bld) [Volume fraction] 34.4 % 37-47 [facility] Laboratory - Chemistry and C hemistry - challengeOrdered By: Henri Kelly on 10-04-2023 CO2 [Moles/Vol] 24.0 mmol/L 21.0-32.0 [facility] Cobalamin (Vitamin B12) [Mass/Vol] 401 pg/mL 211-911 [facility] Urea nitrogen/Creatinine [Mass ratio] 23.5 mg/mg 10-20 [facility] No Panel InformationOrdered By: Henri Kelly on 10-04-2023 Estimated Creatinine Clearance Calc 44.18 ml/min [facility] Estimated GFR (MDRD) Amer 61 mL/min >60 [facility] Comment on above: GFR Calc Estimated GFR (MDRD) Non-Af Amer 50 mL/min >60 [facility] Comment on above: Non- GFR Calc Serum or plasma calcium nya urement (mass/volume)Ordered By: Henri eKlly on 10-04-2023 Calcium [Mass/Vol] 9.2 mg/dL 8.5-10.1 [facility] Serum or plasma cortisol connie surement (mass/volume)Ordered By: Henri Kelly on 10-04-2023 Cortisol [Mass/Vol] 9.70 ug/dL 3.44-22.45 [facility] Comment on above: Adult (AM) 5.27 - 22 .45 ug/dL Adult (PM) 3.44 - 16.76 ug/dLPlease note revised CORTISOL reference range effective 2019. Serum or plasma creatinine m easurement (mass/volume)Ordered By: Henri Kelly on 10-04-2023 Creatinine [Mass/Vol] 1.15 mg/dL 0.55-1.02 [facility] Comment on above: The validity of the calculated GFR & GFRAA in patients over 70 years has not been determined. Clinical correlation is essential. Serum or plasma thyroid stim ulating hormone (TSH) measurement (units/volume)Ordered By: Henri Leticia on 10-04-2023 TSH Qn 0.98 uIU/mL 0.358-3.74 [facility] Serum or plasma urea nitroge n measurement (mass/volume)Ordered By: Henri Kelly on 10-04-2023 Urea nitrogen [Mass/Vol] 27 mg/dL 7-18 [facility] Thin prep Papanicolaou smear with manual screeningOrdered By: Henri Kelly on 10-04-2023 Thin prep Papanicolaou smear with manual screening 7 5-15 [facility] Basophil percentageOrdered B y: Henri Leitcia on 09-26-2023 Basophil percentage 3.7 mg/dL 2.5-4.9 [facility] Bilirubin [Mass/Vol] 0.30 mg/dL 0.20-1.00 [facility] Comment on above: For patients on eltr ombopag therapy, use of Dimension [place] TBIL is not recommended. Protein [Mass/Vol] 7.1 g/dL 6.4-8.2 [facility] WBC (Bld) [#/Vol] 8.0 10*3/uL 4.4-11.0 [facility] Determination of erythrocyte mean corpuscular volume (MCV)Ordered By: Henri Kelly on 09-26-2023 MCV (RBC) [Entitic vol] 80.5 fL 81-99 [facility] Erythrocyte distribution wid th ratioOrdered By: Henri Kelly on 09-26-2023 Erythrocyte distribution width (RBC) [Ratio] 14.6 % 11.6-14.6 [facility] Erythrocyte distribution wid th standard deviationOrdered By: Henri Kelly on 09-26-2023 Erythrocyte distribution width (RBC) [Entitic vol] 40.9 fL 35.1-43.9 [facility] - Chemistry and C hemistry - challengeOrdered By: Henri Kelly on 09-26-2023 Albumin/Globulin [Mass ratio] 0.6 {ratio} 0.9-2.4 [facility] ALP [Catalytic activity/Vol] 107 U/L 45-117 [facility] ALT [Catalytic activity/Vol] 33 U/L 13-56 [facility] Globulin (S) [Mass/Vol] 4.4 g/dL 2.2-4.2 [facility] Magnesium [Mass/Vol] 2.2 mg/dL 1.6-2.6 [facility] - Hematology and Cell countsOrdered By: Henri Leticia on 09-26-2023 MCH (RBC) [Entitic mass] 25.6 pg 27.0-32.0 [facility] MCHC (RBC) [Mass/Vol] 31.8 g/dL 32-36 [facility] Platelet mean volume (Bld) [Entitic vol] 8.9 fL 6.2-12.0 [facility] Platelets (Bld) [#/Vol] 304 10*3/uL 150-450 [facility] RBC Auto (Bld) [#/Vol]Ordere d By: Henri Kelly on 09-26-2023 RBC (Bld) [#/Vol] 4.10 10*6/uL 4.2-5.4 [facility] Thin prep Papanicolaou smear with manual screeningOrdered By: Henri Kelly on 09-26-2023 Thin prep Papanicolaou smear with manual screening 2.7 g/dL 3.2-5.0 [facility] Thin prep Papanicolaou smear with manual screening 25 U/L 15-37 [facility] CASE MANAGEMon 09-25-2023 CASE MANAGEM Normal [facility] CBC W Auto Differential pane l (Bld)on 09-25-2023 Basophils (Bld) [#/Vol] 0.03 10*3/uL Normal <0.11 [facility] Comment on above: Order Comment: Speci men Type: BLOOD SPECIMENOrdering Facility: [facility] Address: [address] [place] [address] Performed By: #### 5 7021-8 ####[facility]ORATORYCLIA [id number] [place] [address] [place] Basophils/100 WBC (Bld) 0.3 % Normal [facility] Comment on above: Order Comment: Speci men Type: BLOOD SPECIMENOrdering Facility: [facility] Address: [address] [place] [address] Performed By: #### 5 7021-8 ####[facility]ORY[facility] [id number] [address] Differential cell count method Nom (Bld) Auto Normal [facility] Comment on above: Order Comment: Speci men Type: BLOOD SPECIMENOrdering Facility: [facility] Address: [address] [place] [address] Performed By: #### 5 7021-8 ####[facility]ATORYCLIA [id number] [address] Eosinophils (Bld) [#/Vol] 0.21 10*3/uL Normal <0.46 [facility] Comment on above: Order Comment: Speci men Type: BLOOD SPECIMENOrdering Facility: [facility] Address: [address] [place] [address] Performed By: #### 5 7021-8 ####[facility]ATORYCLIA [id number] [address] Eosinophils/100 WBC (Bld) 2.0 % Normal [facility] Comment on above: Order Comment: Speci men Type: BLOOD SPECIMENOrdering Facility: [facility] Address: [address] [place] [address] Performed By: #### 5 7021-8 ####[facility]ORYCL[facility] [id number] [address] Erythrocyte distribution width (RBC) [Ratio] 14.2 % Normal 11.5-15.0 [facility] Comment on above: Order Comment: Speci men Type: BLOOD SPECIMENOrdering Facility: [facility] Address: [address] [place] [address] Performed By: #### 5 7021-8 ####[facility]ATORYCLIA [id number] [address] Hematocrit (Bld) [Volume fraction] 30.1 % Low 36.0-46.0 [facility] Comment on above: Order Comment: Speci men Type: BLOOD SPECIMENOrdering Facility: [facility] Address: [address] [place] [address] Performed By: #### 5 7021-8 ####[facility]ATORYCLIA [id number] [place] [address] [place] Hemoglobin (Bld) [Mass/Vol] 9.8 g/dL Low 11.5-15.5 [facility] Comment on above: Order Comment: Speci men Type: BLOOD SPECIMENOrdering Facility: [facility] Address: [address] [place] [address] Performed By: #### 5 7021-8 ####[facility]ATORYCLIA [id number] [place] [address] [place] Immature granulocytes (Bld) [#/Vol] 0.04 10*3/uL Normal <0.10 [facility] Comment on above: Order Comment: Speci men Type: BLOOD SPECIMENOrdering Facility: [facility] Address: [address] [place] [address] Performed By: #### 5 7021-8 ####[facility]ORATORYCLIA [id number] [address] [place] Immature granulocytes/100 WBC (Bld) 0.4 % Normal [facility] Comment on above: Order Comment: Speci men Type: BLOOD SPECIMENOrdering Facility: [facility] Address: [address] [place] [address] Performed By: #### 5 7021-8 ####[facility]ORATORYCLIA [id number] [place] [address] [place] Lymphocytes (Bld) [#/Vol] 3.69 10*3/uL Normal 1.00-4.00 [facility] Comment on above: Order Comment: Speci men Type: BLOOD SPECIMENOrdering Facility: [facility] Address: [address] [place] [address] Performed By: #### 5 7021-8 ####[facility]ORYCLIA [id number] [address] [place] Lymphocytes/100 WBC (Bld) 35.1 % Normal [facility] Comment on above: Order Comment: Speci men Type: BLOOD SPECIMENOrdering Facility: [facility] Address: [address] [place] [address] Performed By: #### 5 7021-8 ####[facility]ORATORYCLIA [id number] [address] MCH (RBC) [Entitic mass] 26.3 pg Normal 26.0-34.0 [facility] Comment on above: Order Comment: Speci men Type: BLOOD SPECIMENOrdering Facility: [facility] Address: [address] [place] [address] Performed By: #### 5 7021-8 ####[facility]ORATORYCLIA [id number] [address] MCHC (RBC) [Mass/Vol] 32.6 g/dL Normal 30.5-36.0 [facility] Comment on above: Order Comment: Speci men Type: BLOOD SPECIMENOrdering Facility: [facility] Address: [address] [place] [address] Performed By: #### 5 7021-8 ####[facility]ORATORYCLIA [id number] [address] MCV (RBC) [Entitic vol] 80.7 fL Normal 80.0-100.0 [facility] Comment on above: Order Comment: Speci men Type: BLOOD SPECIMENOrdering Facility: [facility] Address: [address] [place] [address] Performed By: #### 5 7021-8 ####[facility]ORATORYCLIA [id number] [address] Monocytes (Bld) [#/Vol] 0.61 10*3/uL Normal <0.87 [facility] Comment on above: Order Comment: Speci men Type: BLOOD SPECIMENOrdering Facility: [facility] Address: [address] [place] [address] Performed By: #### 5 7021-8 ####[facility]ORATORYCLIA [id number] [address] Monocytes/100 WBC (Bld) 5.8 % Normal [facility] Comment on above: Order Comment: Speci men Type: BLOOD SPECIMENOrdering Facility: [facility] Address: [address] [place] [address] Performed By: #### 5 7021-8 ####[facility] LABORATORYCLIA [id number] [place] [address] [place] Neutrophils (Bld) [#/Vol] 5.94 10*3/uL Normal 1.45-7.50 [facility] Comment on above: Order Comment: Speci men Type: BLOOD SPECIMENOrdering Facility: [facility] Address: [address] [place] [address] Performed By: #### 5 7021-8 ####[facility]ORYCLIA [id number] [address] [place] Neutrophils/100 WBC (Bld) 56.4 % Normal [facility] Comment on above: Order Comment: Speci men Type: BLOOD SPECIMENOrdering Facility: [facility] Address: [address] [place] [address] Performed By: #### 5 7021-8 ####[facility]ORYCLIA [id number] [place] [address] [place] Nucleated RBC (Bld) [#/Vol] 10*3/uL Normal <0.01 [facility] Comment on above: Order Comment: Speci men Type: BLOOD SPECIMENOrdering Facility: [facility] Address: [address] [place] [address] Performed By: #### 5 7021-8 ####[facility]ATORYCLIA [id number] [address] [place] Nucleated RBC/100 WBC (Bld) [Ratio] 0.0 /100 WBC Normal [facility] Comment on above: Order Comment: Speci men Type: BLOOD SPECIMENOrdering Facility: [facility] Address: [address] [place] [address] Performed By: #### 5 7021-8 ####[facility]ATORYCLIA [id number] [address] [place] Platelet mean volume (Bld) [Entitic vol] 9.5 fL Normal 9.0-12.7 [facility] Comment on above: Order Comment: Speci men Type: BLOOD SPECIMENOrdering Facility: [facility] Address: [address] [place] [address] Performed By: #### 5 7021-8 ####[facility]ORATORYCLIA [id number] [place] [address] [place] Platelets (Bld) [#/Vol] 265 10*3/uL Normal 150-400 [facility] Comment on above: Order Comment: Speci men Type: BLOOD SPECIMENOrdering Facility: [facility] Address: [address] [place] [address] Performed By: #### 5 7021-8 ####[facility]ORATORYCLIA [id number] [place] [address] [place] RBC (Bld) [#/Vol] 3.73 10*6/uL Low 3.90-5.20 [facility] Comment on above: Order Comment: Speci men Type: BLOOD SPECIMENOrdering Facility: [facility] Address: [address] [place] [address] Performed By: #### 5 7021-8 ####[facility]ORATORYCLIA [id number] [place] [address] [place] WBC (Bld) [#/Vol] 10.52 10*3/uL Normal 3.70-11.00 [facility] Comment on above: Order Comment: Speci men Type: BLOOD SPECIMENOrdering Facility: [facility] Address: [address] [place] [address] Performed By: #### 5 7021-8 ####[facility]ORATORYCLIA [id number] [address] [place] CNDSon 09-25-2023 CNDS Normal [facility] Comprehensive metabolic 2000 panelon 09-25-2023 Albumin [Mass/Vol] 3.1 g/dL Low 3.9-4.9 [facility] Comment on above: Order Comment: Speci men Type: BLOOD SPECIMENOrdering Facility: [facility] Address: [address] [place] [address] Performed By: #### 1 9123-9, 2276-4, 56219-1, 2777-1, 44061-2 ####[facility]ORATORYCLIA [id number] [place] [address] [place] ALP [Catalytic activity/Vol] 109 U/L Normal 34-123 [facility] Comment on above: Order Comment: Speci men Type: BLOOD SPECIMENOrdering Facility: [facility] Address: [address] [place] [address] Performed By: #### 1 9123-9, 6-4, 00558-9, 2777-1, 50967-5 ####[facility]ORATORYCLIA [id number] [address] STATES [place] [facility] ALT With P-5'-P [Catalytic activity/Vol] 23 U/L Normal 7-38 [facility] Comment on above: Order Comment: Speci men Type: BLOOD SPECIMENOrdering Facility: [facility] Address: [address] [place] [address] Performed By: #### 1 9123-9, 6-4, 75881-5, 2777-1, 14167-2 ####[facility]ORATORYCLIA [id number] [address] STATES [place] [facility] Anion gap [Moles/Vol] 10 mmol/L Normal 9-18 [facility] Comment on above: Order Comment: Speci men Type: BLOOD SPECIMENOrdering Facility: [facility] Address: [address] [place] [address] Performed By: #### 1 9123-9, 6-4, 92108-7, 2777-1, 58357-6 ####[facility]ORATORYCLIA [id number] [place] [address] [place] [facility] AST With P-5'-P [Catalytic activity/Vol] 28 U/L Normal 13-35 [facility] Comment on above: Order Comment: Speci men Type: BLOOD SPECIMENOrdering Facility: [facility] Address: [address] [place] [address] Performed By: #### 1 9123-9, 6-4, 49196-7, 2777-1, 01397-2 ####[facility]ORATORYCLIA [id number] [place] [address] [place] Bilirubin [Mass/Vol] 0.2 mg/dL Normal 0.2-1.3 [facility] Comment on above: Order Comment: Speci men Type: BLOOD SPECIMENOrdering Facility: [facility] Address: [address] [place] [address] Performed By: #### 1 9123-9, 6-4, 82029-2, 2777-1, 74982-8 ####[facility]ORATORYCLIA [id number] [place] [address] [place] Calcium [Mass/Vol] 9.1 mg/dL Normal 8.5-10.2 [facility] Comment on above: Order Comment: Speci men Type: BLOOD SPECIMENOrdering Facility: [facility] Address: [address] [place] [address] Performed By: #### 1 9123-9, 6-4, 89793-4, 2777-1, 36893-3 ####[facility]ORATORYCLIA [id number] [place] [address] [place] Chloride [Moles/Vol] 103 mmol/L Normal 97-105 [facility] Comment on above: Order Comment: Speci men Type: BLOOD SPECIMENOrdering Facility: [facility] Address: [address] [place] [address] Performed By: #### 1 9123-9, 2275-4, 83545-5, 277-1, 28388-9 ####[facility]ORATORYCLIA [id number] [place] [address] [place] CO2 [Moles/Vol] 24 mmol/L Normal 22-30 [facility] Comment on above: Order Comment: Speci men Type: BLOOD SPECIMENOrdering Facility: [facility] Address: [address] [place] [address] Performed By: #### 1 9123-9, 6-4, 89867-6, 2777-1, 65155-5 ####[facility]ORATORYCLIA [id number] [place] [id number] [place] Creatinine [Mass/Vol] 0.89 mg/dL Normal 0.58-0.96 [facility] Comment on above: Order Comment: Speci men Type: BLOOD SPECIMENOrdering Facility: [facility] Address: [address] [place] [address] Performed By: #### 1 9123-9, 6-4, 65782-7, 277-, 85947-7 ####[facility] HOSPITALIA [id number] [address] [place] [facility] Creatinine and Glomerular filtration rate.predicted panel (S/P/Bld) 72 mL/min/1.73m??? Normal >=60 [facility] Comment on above: Order Comment: Key albrecht Type: BLOOD SPECIMENOrdering Facility: [facility] Address: [address] [place] [address] Result Comment: Swetha mated Glomerular Filtration Rate [...] actual GFR. Performed By: #### 1 9123-9, 6-4, 76140-5, 2777-1, 60539-1 ####[facility]ORATORYCLIA [id number] [place] [id number] [place] Glucose [Mass/Vol] 151 mg/dL High 74-99 [facility] Comment on above: Order Comment: Key ambrocio Type: BLOOD SPECIMENOrdering Facility: [facility] Address: [address] [place], [place] [id number] Result Comment: The [place] [employer] (ADA) provides guidance for cutoff [...] Standards of Medical Care in Diabetes 2016, [place] [employer]. Diabetes Care. 2016.39(Suppl 1). Performed By: #### 1 9123-9, 6-4, 47182-7, 2777-, 95281-9 ####[facility]ORATORYCLIA [id number] [place] [address] [place] Potassium [Moles/Vol] 3.7 mmol/L Normal 3.7-5.1 [facility] Comment on above: Order Comment: Speci men Type: BLOOD SPECIMENOrdering Facility: [facility] Address: [address] [place] [address] Performed By: #### 1 9123-9, 2275-4, 37409-7, 2776-07, 09602-8 ####[facility] HOSPITALIA [id number] [place] [address] [place] Protein [Mass/Vol] 6.5 g/dL Normal 6.3-8.0 [facility] Comment on above: Order Comment: Speci men Type: BLOOD SPECIMENOrdering Facility: [facility] Address: [address] [place] [id number] Performed By: #### 1 9123-9, 2275-4, 43563-6, 2776-07, 53118-9 ####[facility]ORATORYCLIA [id number] [place] [address] [place] Sodium [Moles/Vol] 137 mmol/L Normal 136-144 [facility] Comment on above: Order Comment: Speci men Type: BLOOD SPECIMENOrdering Facility: [facility] Address: [address] [place] [address] Performed By: #### 1 9123-9, 6-4, 55274-0, 2777-1, 03663-6 ####[facility]ORATORYCLIA [id number] [place] [id number] [place] Urea nitrogen [Mass/Vol] 22 mg/dL High 7-21 [facility] Comment on above: Order Comment: Speci men Type: BLOOD SPECIMENOrdering Facility: [facility] Address: [address] [place] [address] Performed By: #### 1 9123-9, 2275-4, 63537-3, 2777-, 84183-4 ####[facility]ORATORYCLIA [id number] [place] [address] [place] Ferritin SerPl-ncon 2023 Ferritin [Mass/Vol] 58.7 ng/mL Normal 14.7-205.1 [facility] Comment on above: Order Comment: Speci men Type: BLOOD SPECIMENOrdering Facility: [facility] Address: [address] [place] [address] Performed By: #### 1 9123-9, 2275-4, 67843-1, 2777-, 49798-0 ####[facility]ORATORYCLIA [id number] [place] [address] [place] Iron and Iron binding capaci ty panelon 09-25-2023 Iron [Mass/Vol] 39 ug/dL Low 41-186 [facility] Comment on above: Order Comment: Speci men Type: BLOOD SPECIMENOrdering Facility: [facility] Address: [address] [place] [address] Performed By: #### 1 9123-9, 2275-4, 45261-9, 2777-1, 31339-0 ####[facility]ORATORYCLIA [id number] [place] [address] [place] Iron binding capacity [Mass/Vol] 296 ug/dL Normal 232-386 [facility] Comment on above: Order Comment: Speci men Type: BLOOD SPECIMENOrdering Facility: [facility] Address: [address] [place] [address] Performed By: #### 1 9123-9, 6-4, 03650-4, 2776-1, 83263-9 ####[facility]ORATORYCLIA [id number] [address] [place] [facility] Iron saturation [Mass fraction] 13.2 % Low 15.0-57.0 [facility] Comment on above: Order Comment: Speci men Type: BLOOD SPECIMENOrdering Facility: [facility] Address: [address] [place] [address] Performed By: #### 1 9123-9, 2275-4, 16255-6, 2776-1, 17766-5 ####[facility]ATORYCLIA [id number] [address] [place] Magnesium SerPl-ncon 09-24 Magnesium [Mass/Vol] 1.7 mg/dL Normal 1.7-2.3 [facility] Comment on above: Order Comment: Speci men Type: BLOOD SPECIMENOrdering Facility: [facility] Address: [address] [place] [address] Performed By: #### 1 9123-9, 2275-4, 82023-5, 277-1, 72516-6 ####[facility]ATORYCLIA [id number] [place] [address] [place] PT EDon 09-25-2023 PT ED Normal [facility] Phosphate SerPl-mCncon 09-24 Phosphate [Mass/Vol] 3.9 mg/dL Normal 2.7-4.8 [facility] Comment on above: Order Comment: Speci men Type: BLOOD SPECIMENOrdering Facility: [facility] Address: [address] [place] [address] Performed By: #### 1 9123-9, 6-4, 45278-6, 277-1, 14883-5 ####[facility]ATORYCLIA [id number] [place] [address] [place] ALLIED HEALTHon 09-24-2023 ALLIED HEALTH Normal [facility] CASE MANAGEMon 09-24-2023 CASE MANAGEM Normal [facility] CBC W Auto Differential pane l (Bld)on 09-24-2023 Basophils (Bld) [#/Vol] 0.03 10*3/uL Normal <0.11 [facility] Comment on above: Order Comment: Speci men Type: BLOOD SPECIMENOrdering Facility: [facility] Address: [address] [place] [address] Performed By: #### 5 7021-8 ####[facility]ORATORYCLIA [id number] [address] [place] Basophils/100 WBC (Bld) 0.3 % Normal [facility] Comment on above: Order Comment: Speci men Type: BLOOD SPECIMENOrdering Facility: [facility] Address: [address] [place] [address] Performed By: #### 5 7021-8 ####[facility]ATORYCLIA [id number] [place] [address] [place] Differential cell count method Nom (Bld) Auto Normal [facility] Comment on above: Order Comment: Speci men Type: BLOOD SPECIMENOrdering Facility: [facility] Address: [address] [place] [address] Performed By: #### 5 7021-8 ####[facility]ORATORYCLIA [id number] [place] [address] [place] Eosinophils (Bld) [#/Vol] 0.21 10*3/uL Normal <0.46 [facility] Comment on above: Order Comment: Speci men Type: BLOOD SPECIMENOrdering Facility: [facility] Address: [address] [place] [address] Performed By: #### 5 7021-8 ####[facility]ATORYCLIA [id number] [address] [place] Eosinophils/100 WBC (Bld) 2.1 % Normal [facility] Comment on above: Order Comment: Speci men Type: BLOOD SPECIMENOrdering Facility: [facility] Address: [address] [place] [address] Performed By: #### 5 7021-8 ####[facility]ORATORYCLIA [id number] [address] [place] Erythrocyte distribution width (RBC) [Ratio] 14.4 % Normal 11.5-15.0 [facility] Comment on above: Order Comment: Speci men Type: BLOOD SPECIMENOrdering Facility: [facility] Address: [address] [place] [address] Performed By: #### 5 7021-8 ####[facility]ORATORYCLIA [id number] [address] [place] Hematocrit (Bld) [Volume fraction] 35.1 % Low 36.0-46.0 [facility] Comment on above: Order Comment: Speci men Type: BLOOD SPECIMENOrdering Facility: [facility] Address: [address] [place] [address] Performed By: #### 5 7021-8 ####[facility]ATORYCLIA [id number] [address] [place] Hemoglobin (Bld) [Mass/Vol] 11.2 g/dL Low 11.5-15.5 [facility] Comment on above: Order Comment: Speci men Type: BLOOD SPECIMENOrdering Facility: [facility] Address: [address] [place] [address] Performed By: #### 5 7021-8 ####[facility]ATORYCLIA [id number] [address] [place] Immature granulocytes (Bld) [#/Vol] 0.06 10*3/uL Normal <0.10 [facility] Comment on above: Order Comment: Speci men Type: BLOOD SPECIMENOrdering Facility: [facility] Address: [address] [place] [address] Performed By: #### 5 7021-8 ####[facility]ORATORYCLIA [id number] [address] OF [facility] Immature granulocytes/100 WBC (Bld) 0.6 % Normal [facility] Comment on above: Order Comment: Speci men Type: BLOOD SPECIMENOrdering Facility: [facility] Address: [address] [place] [address] Performed By: #### 5 7021-8 ####[facility]ORATORYCLIA [id number] [place] [address] [place] Lymphocytes (Bld) [#/Vol] 3.01 10*3/uL Normal 1.00-4.00 [facility] Comment on above: Order Comment: Speci men Type: BLOOD SPECIMENOrdering Facility: [facility] Address: [address] [place] [address] Performed By: #### 5 7021-8 ####[facility]ORATORYCLIA [id number] [address] Lymphocytes/100 WBC (Bld) 30.2 % Normal [facility] Comment on above: Order Comment: Speci men Type: BLOOD SPECIMENOrdering Facility: [facility] Address: [address] [place] [address] Performed By: #### 5 7021-8 ####[facility]ORATORYCLIA [id number] [place] [address] [place] MCH (RBC) [Entitic mass] 25.7 pg Low 26.0-34.0 [facility] Comment on above: Order Comment: Speci men Type: BLOOD SPECIMENOrdering Facility: [facility] Address: [address] [place] [address] Performed By: #### 5 7021-8 ####[facility]ORATORYCLIA [id number] [address] [place] MCHC (RBC) [Mass/Vol] 31.9 g/dL Normal 30.5-36.0 [facility] Comment on above: Order Comment: Speci men Type: BLOOD SPECIMENOrdering Facility: [facility] Address: [address] [place] [address] Performed By: #### 5 7021-8 ####[facility]ORATORYCLIA [id number] [place] [address] [place] MCV (RBC) [Entitic vol] 80.5 fL Normal 80.0-100.0 [facility] Comment on above: Order Comment: Speci men Type: BLOOD SPECIMENOrdering Facility: [facility] Address: [address] [place] [address] Performed By: #### 5 7021-8 ####[facility]ORATORYCLIA [id number] [place] [address] [place] Monocytes (Bld) [#/Vol] 0.49 10*3/uL Normal <0.87 [facility] Comment on above: Order Comment: Speci men Type: BLOOD SPECIMENOrdering Facility: [facility] Address: [address] [place] [address] Performed By: #### 5 7021-8 ####[facility]ORATORYCLIA [id number] [address] OF [place] Monocytes/100 WBC (Bld) 4.9 % Normal [facility] Comment on above: Order Comment: Speci men Type: BLOOD SPECIMENOrdering Facility: [facility] Address: [address] [place] [address] Performed By: #### 5 7021-8 ####[facility]ORATORYCLIA [id number] [address] [place] Neutrophils (Bld) [#/Vol] 6.16 10*3/uL Normal 1.45-7.50 [facility] Comment on above: Order Comment: Speci men Type: BLOOD SPECIMENOrdering Facility: [facility] Address: [address] [place] [address] Performed By: #### 5 7021-8 ####[facility]ORATORYCLIA [id number] [address] [place] Neutrophils/100 WBC (Bld) 61.9 % Normal [facility] Comment on above: Order Comment: Speci men Type: BLOOD SPECIMENOrdering Facility: [facility] Address: [address] [place] [address] Performed By: #### 5 7021-8 ####[facility]ORATORYCLIA [id number] [address] [place] Nucleated RBC (Bld) [#/Vol] 10*3/uL Normal <0.01 [facility] Comment on above: Order Comment: Speci men Type: BLOOD SPECIMENOrdering Facility: [facility] Address: [address] [place] [address] Performed By: #### 5 7021-8 ####[facility]ORATORYCLIA [id number] [address] [place] Nucleated RBC/100 WBC (Bld) [Ratio] 0.0 /100 WBC Normal [facility] Comment on above: Order Comment: Speci men Type: BLOOD SPECIMENOrdering Facility: [facility] Address: [address] [place] [address] Performed By: #### 5 7021-8 ####[facility]ORATORYCLIA [id number] [address] [place] Platelet mean volume (Bld) [Entitic vol] 9.3 fL Normal 9.0-12.7 [facility] Comment on above: Order Comment: Speci men Type: BLOOD SPECIMENOrdering Facility: [facility] Address: [address] [place] [address] Performed By: #### 5 7021-8 ####[facility]ORATORYCLIA [id number] [address] [place] Platelets (Bld) [#/Vol] 270 10*3/uL Normal 150-400 [facility] Comment on above: Order Comment: Speci men Type: BLOOD SPECIMENOrdering Facility: [facility] Address: [address] [place] [address] Performed By: #### 5 7021-8 ####[facility] LABORATORYCLIA [id number] [place] [address] [place] RBC (Bld) [#/Vol] 4.36 10*6/uL Normal 3.90-5.20 [facility] Comment on above: Order Comment: Speci men Type: BLOOD SPECIMENOrdering Facility: [facility] Address: [address] [place] [address] Performed By: #### 5 7021-8 ####[facility] LABORATORYCLIA [id number] [address] [place] [facility] WBC (Bld) [#/Vol] 9.96 10*3/uL Normal 3.70-11.00 [facility] Comment on above: Order Comment: Speci men Type: BLOOD SPECIMENOrdering Facility: [facility] Address: [address] [place] [address] Performed By: #### 5 7021-8 ####[facility]ORATORYCLIA [id number] [address] OF [facility] Comprehensive metabolic 2000 panelon 09-24-2023 Albumin [Mass/Vol] 3.2 g/dL Low 3.9-4.9 [facility] Comment on above: Order Comment: Speci men Type: BLOOD SPECIMENOrdering Facility: [facility] Address: [address] [place] [address] Performed By: #### 1 9123-9, 35956-1, 2777-1 ####[facility]ORATORYCLIA [id number] [address] [place] ALP [Catalytic activity/Vol] 115 U/L Normal 34-123 [facility] Comment on above: Order Comment: Speci men Type: BLOOD SPECIMENOrdering Facility: [facility] Address: [address] [place] [address] Performed By: #### 1 9123-9, 09364-6, 2777-1 ####[facility]ORATORYCLIA [id number] [address] STATES OF [facility] ALT With P-5'-P [Catalytic activity/Vol] 16 U/L Normal 7-38 [facility] Comment on above: Order Comment: Speci men Type: BLOOD SPECIMENOrdering Facility: [facility] Address: [address] [place] [address] Performed By: #### 1 9123-9, 38271-1, 277- ####[facility]ATORYCLIA [id number] [address] STATES [facility] Anion gap [Moles/Vol] 10 mmol/L Normal 9-18 [facility] Comment on above: Order Comment: Speci men Type: BLOOD SPECIMENOrdering Facility: [facility] Address: [facility] [place] [address] Performed By: #### 1 9123-9, 91196-1, 2776- ####[facility]ATORYCLIA [id number] [address] OF [facility] AST With P-5'-P [Catalytic activity/Vol] 20 U/L Normal 13-35 [facility] Comment on above: Order Comment: Speci men Type: BLOOD SPECIMENOrdering Facility: [facility] Address: [address] [place] [address] Performed By: #### 1 9123-9, 35259-6, 2776- ####[facility]ATORYCLIA [id number] [address] [place] Bilirubin [Mass/Vol] 0.3 mg/dL Normal 0.2-1.3 [facility] Comment on above: Order Comment: Speci men Type: BLOOD SPECIMENOrdering Facility: [facility] Address: [address] [place] [address] Performed By: #### 1 9123-9, 28272-5, 277- ####[facility]ATORYCLIA [id number] [address] STATES OF [facility] Calcium [Mass/Vol] 9.1 mg/dL Normal 8.5-10.2 [facility] Comment on above: Order Comment: Speci men Type: BLOOD SPECIMENOrdering Facility: [facility] Address: [address] [place] [address] Performed By: #### 1 9123-9, 54006-3, 277- ####[facility]ATORYCLIA [id number] [address] [place] Chloride [Moles/Vol] 102 mmol/L Normal 97-105 [facility] Comment on above: Order Comment: Speci men Type: BLOOD SPECIMENOrdering Facility: [facility] Address: [address] [place] [address] Performed By: #### 1 9123-9, 89176-4, 2777-1 ####[facility]ATORYCLIA [id number] [address] [facility] CO2 [Moles/Vol] 26 mmol/L Normal 22-30 [facility] Comment on above: Order Comment: Speci men Type: BLOOD SPECIMENOrdering Facility: [facility] Address: [address] [place] [address] Performed By: #### 1 9123-9, 15803-6, 2777-1 ####[facility]ATORYCLIA [id number] [address] Creatinine [Mass/Vol] 0.82 mg/dL Normal 0.58-0.96 [facility] Comment on above: Order Comment: Speci men Type: BLOOD SPECIMENOrdering Facility: [facility] Address: [address] [place] [address] Performed By: #### 1 9123-9, 79122-5, 2777-1 ####[facility]ATORYCLIA [id number] [address] Creatinine and Glomerular filtration rate.predicted panel (S/P/Bld) 79 mL/min/1.73m??? Normal >=60 [facility] Comment on above: Order Comment: Speci men Type: BLOOD SPECIMENOrdering Facility: [facility] Address: [address] [place] [address] Result Comment: Swetha mated Glomerular Filtration Rate [...] actual GFR. Performed By: #### 1 9123-9, 03922-3, 2776-07 ####[facility]CLIA [id number] [place] [address] [place] Glucose [Mass/Vol] 126 mg/dL High 74-99 [facility] Comment on above: Order Comment: Key albrecht Type: BLOOD SPECIMENOrdering Facility: [facility] Address: [address] [place] [address] Result Comment: The [place] Diabetes Association (ADA) provides guidance for cutoff [...] Standards of Medical Care in Diabetes 2016, [place] [employer]. Diabetes Care. 2016.39(Suppl 1). Performed By: #### 1 9123-9, 56677-6, 2776-07 ####[facility]ITALCLIA [id number] [place] [address] [place] Potassium [Moles/Vol] 3.5 mmol/L Low 3.7-5.1 [facility] Comment on above: Order Comment: Key albrecht Type: BLOOD SPECIMENOrdering Facility: [facility] Address: [address] [place] [address] Performed By: #### 1 9123-9, 50417-8, 27712-29 ####[facility]ATORYCLIA [id number] [place] [address] [place] Protein [Mass/Vol] 7.0 g/dL Normal 6.3-8.0 [facility] Comment on above: Order Comment: Key albrecht Type: BLOOD SPECIMENOrdering Facility: [facility] Address: [address] [place] [address] Performed By: #### 1 9123-9, 25465-6, 2777- ####[facility]ATORYCLIA [id number] [place] [address] [place] Sodium [Moles/Vol] 138 mmol/L Normal 136-144 [facility] Comment on above: Order Comment: Speci men Type: BLOOD SPECIMENOrdering Facility: [facility] Address: [address] [place] [address] Performed By: #### 1 9123-9, 13155-4, 2777 ####[facility]ATORYCLIA [id number] [place] [address] [place] Urea nitrogen [Mass/Vol] 15 mg/dL Normal 7-21 [facility] Comment on above: Order Comment: Speci men Type: BLOOD SPECIMENOrdering Facility: [facility] Address: [address] [place] [address] Performed By: #### 1 9123-9, 65129-9, 27712-29 ####[facility]ORATORYCLIA [id number] [place] [address] [place] Magnesium SerPl-mCncon 09-23 Magnesium [Mass/Vol] 1.8 mg/dL Normal 1.7-2.3 [facility] Comment on above: Order Comment: Speci men Type: BLOOD SPECIMENOrdering Facility: [facility] Address: [address] [place] [address] Performed By: #### 1 9123-9, 34045-1, 2777 ####[facility]ATORYCLIA [id number] [place] [address] [place] Phosphate SerPl-mCncon 09-23 Phosphate [Mass/Vol] 3.5 mg/dL Normal 2.7-4.8 [facility] Comment on above: Order Comment: Speci men Type: BLOOD SPECIMENOrdering Facility: [facility] Address: [address] [place] [address] Performed By: #### 1 9123-9, 61083-6, 2777-1 ####[facility]ORATORYCLIA [id number] [place] [address] [place] THERAPY NTon 09-24-2023 THERAPY NT Normal [facility] THERAPY NT Normal [facility] CASE MANAGEMon 09-23-2023 CASE MANAGEM Normal [facility] CBC W Auto Differential pane l (Bld)on 09-23-2023 Basophils (Bld) [#/Vol] 10*3/uL Normal <0.11 [facility] Comment on above: Order Comment: Speci men Type: BLOOD SPECIMENOrdering Facility: [facility] Address: [address] [place] [address] Performed By: #### 5 7021-8 ####[facility]ATORYCLIA [id number] [address] [place] Basophils/100 WBC (Bld) 0.2 % Normal [facility] Comment on above: Order Comment: Speci men Type: BLOOD SPECIMENOrdering Facility: [facility] Address: [address] [place] [address] Performed By: #### 5 7021-8 ####[facility]ATORYCLIA [id number] [address] [place] Differential cell count method Nom (Bld) Auto Normal [facility] Comment on above: Order Comment: Speci men Type: BLOOD SPECIMENOrdering Facility: [facility] Address: [address] [place] [address] Performed By: #### 5 7021-8 ####[facility]ATORYCLIA [id number] [place] [address] [place] Eosinophils (Bld) [#/Vol] 0.16 10*3/uL Normal <0.46 [facility] Comment on above: Order Comment: Speci men Type: BLOOD SPECIMENOrdering Facility: [facility] Address: [address] [place] [address] Performed By: #### 5 7021-8 ####[facility]ATORYCLIA [id number] [address] Eosinophils/100 WBC (Bld) 1.6 % Normal [facility] Comment on above: Order Comment: Speci men Type: BLOOD SPECIMENOrdering Facility: [facility] Address: [address] [place] [address] Performed By: #### 5 7021-8 ####[facility]ATORYCLIA [id number] [address] [place] Erythrocyte distribution width (RBC) [Ratio] 14.1 % Normal 11.5-15.0 [facility] Comment on above: Order Comment: Speci men Type: BLOOD SPECIMENOrdering Facility: [facility] Address: [address] [place] [address] Performed By: #### 5 7021-8 ####[facility]ATORYCLIA [id number] [address] [place] Hematocrit (Bld) [Volume fraction] 33.4 % Low 36.0-46.0 [facility] Comment on above: Order Comment: Speci men Type: BLOOD SPECIMENOrdering Facility: [facility] Address: [address] [place] [address] Performed By: #### 5 7021-8 ####[facility]ATORYCLIA [id number] [address] OF [place] Hemoglobin (Bld) [Mass/Vol] 10.9 g/dL Low 11.5-15.5 [facility] Comment on above: Order Comment: Speci men Type: BLOOD SPECIMENOrdering Facility: [facility] Address: [address] [place] [address] Performed By: #### 5 7021-8 ####[facility]ATORYCLIA [id number] [address] OF [place] Immature granulocytes (Bld) [#/Vol] 0.05 10*3/uL Normal <0.10 [facility] Comment on above: Order Comment: Speci men Type: BLOOD SPECIMENOrdering Facility: [facility] Address: [address] [place] [address] Performed By: #### 5 7021-8 ####[facility]ATORYCLIA [id number] [address] Immature granulocytes/100 WBC (Bld) 0.5 % Normal [facility] Comment on above: Order Comment: Speci men Type: BLOOD SPECIMENOrdering Facility: [facility] Address: [address] [place] [address] Performed By: #### 5 7021-8 ####[facility]ATORYCLIA [id number] [address] Lymphocytes (Bld) [#/Vol] 2.54 10*3/uL Normal 1.00-4.00 [facility] Comment on above: Order Comment: Speci men Type: BLOOD SPECIMENOrdering Facility: [facility] Address: [address] [place] [address] Performed By: #### 5 7021-8 ####[facility]ATORYCLIA [id number] [address] Lymphocytes/100 WBC (Bld) 25.3 % Normal [facility] Comment on above: Order Comment: Speci men Type: BLOOD SPECIMENOrdering Facility: [facility] Address: [address] [place] [address] Performed By: #### 5 7021-8 ####[facility] LABORATORYCLIA [id number] [address] STATES [facility] MCH (RBC) [Entitic mass] 26.3 pg Normal 26.0-34.0 [facility] Comment on above: Order Comment: Speci men Type: BLOOD SPECIMENOrdering Facility: [facility] Address: [address] [place] [address] Performed By: #### 5 7021-8 ####[facility]ATORYCLIA [id number] [address] MCHC (RBC) [Mass/Vol] 32.6 g/dL Normal 30.5-36.0 [facility] Comment on above: Order Comment: Speci men Type: BLOOD SPECIMENOrdering Facility: [facility] Address: [address] [place] [address] Performed By: #### 5 7021-8 ####[facility]ORATORYCLIA [id number] [address] [place] MCV (RBC) [Entitic vol] 80.5 fL Normal 80.0-100.0 [facility] Comment on above: Order Comment: Speci men Type: BLOOD SPECIMENOrdering Facility: [facility] Address: [address] [place] [address] Performed By: #### 5 7021-8 ####[facility]ATORYCLIA [id number] [address] [place] Monocytes (Bld) [#/Vol] 0.48 10*3/uL Normal <0.87 [facility] Comment on above: Order Comment: Speci men Type: BLOOD SPECIMENOrdering Facility: [facility] Address: [address] [place] [address] Performed By: #### 5 7021-8 ####[facility]ATORYCLIA [id number] [address] [place] Monocytes/100 WBC (Bld) 4.8 % Normal [facility] Comment on above: Order Comment: Speci men Type: BLOOD SPECIMENOrdering Facility: [facility] Address: [address] [place] [address] Performed By: #### 5 7021-8 ####[facility]ATORYCLIA [id number] [place] [address] [place] Neutrophils (Bld) [#/Vol] 6.77 10*3/uL Normal 1.45-7.50 [facility] Comment on above: Order Comment: Speci men Type: BLOOD SPECIMENOrdering Facility: [facility] Address: [address] [place] [address] Performed By: #### 5 7021-8 ####[facility]ATORYCLIA [id number] [address] [place] Neutrophils/100 WBC (Bld) 67.6 % Normal [facility] Comment on above: Order Comment: Speci men Type: BLOOD SPECIMENOrdering Facility: [facility] Address: [address] [place] [address] Performed By: #### 5 7021-8 ####[facility]ATORYCLIA [id number] [address] STATES [facility] Nucleated RBC (Bld) [#/Vol] 10*3/uL Normal <0.01 [facility] Comment on above: Order Comment: Speci men Type: BLOOD SPECIMENOrdering Facility: [facility] Address: [address] [place] [address] Performed By: #### 5 7021-8 ####[facility]ATORYCLIA [id number] [address] Nucleated RBC/100 WBC (Bld) [Ratio] 0.0 /100 WBC Normal [facility] Comment on above: Order Comment: Speci men Type: BLOOD SPECIMENOrdering Facility: [facility] Address: [address] [place] [address] Performed By: #### 5 7021-8 ####[facility]ATORYCLIA [id number] [address] Platelet mean volume (Bld) [Entitic vol] 9.3 fL Normal 9.0-12.7 [facility] Comment on above: Order Comment: Speci men Type: BLOOD SPECIMENOrdering Facility: [facility] Address: [address] [place] [address] Performed By: #### 5 7021-8 ####[facility]ATORYCLIA [id number] [address] OF [place] Platelets (Bld) [#/Vol] 229 10*3/uL Normal 150-400 [facility] Comment on above: Order Comment: Speci men Type: BLOOD SPECIMENOrdering Facility: [facility] Address: [address] [place] [address] Performed By: #### 5 7021-8 ####[facility]ATORYCLIA [id number] [address] [place] RBC (Bld) [#/Vol] 4.15 10*6/uL Normal 3.90-5.20 [facility] Comment on above: Order Comment: Speci men Type: BLOOD SPECIMENOrdering Facility: [facility] Address: [address] [place] [address] Performed By: #### 5 7021-8 ####[facility]ATORYCLIA [id number] [address] OF [facility] WBC (Bld) [#/Vol] 10.02 10*3/uL Normal 3.70-11.00 [facility] Comment on above: Order Comment: Speci men Type: BLOOD SPECIMENOrdering Facility: [facility] Address: [address] [place] [address] Performed By: #### 5 7021-8 ####[facility]ATORYCLIA [id number] [address] Comprehensive metabolic 2000 panelon 09-23-2023 Albumin [Mass/Vol] 3.2 g/dL Low 3.9-4.9 [facility] Comment on above: Order Comment: Speci men Type: BLOOD SPECIMENOrdering Facility: [facility] Address: [address] [place] [address] Performed By: #### 1 9123-9, 18708-6, 2777-1 ####[facility]ATORYCLIA [id number] [address] STATES OF [facility] ALP [Catalytic activity/Vol] 107 U/L Normal 34-123 [facility] Comment on above: Order Comment: Speci men Type: BLOOD SPECIMENOrdering Facility: [facility] Address: [address] [place] [address] Performed By: #### 1 9123-9, 45816-7, 2777-1 ####[facility]ORYCLIA [id number] [address] ALT With P-5'-P [Catalytic activity/Vol] 12 U/L Normal 7-38 [facility] Comment on above: Order Comment: Speci men Type: BLOOD SPECIMENOrdering Facility: [facility] Address: [address] [place] [address] Performed By: #### 1 9123-9, 87258-8, 277- ####[facility]ORYCLIA [id number] [address] STATES OF [facility] Anion gap [Moles/Vol] 9 mmol/L Normal 9-18 [facility] Comment on above: Order Comment: Speci men Type: BLOOD SPECIMENOrdering Facility: [facility] Address: [address] [place] [address] Performed By: #### 1 9123-9, 06507-1, 277- ####[facility]ORYCLIA [id number] [address] [place] AST With P-5'-P [Catalytic activity/Vol] 14 U/L Normal 13-35 [facility] Comment on above: Order Comment: Speci men Type: BLOOD SPECIMENOrdering Facility: [facility] Address: [address] [place] [address] Performed By: #### 1 9123-9, 13179-2, 2776-07 ####[facility]ATORYCLIA [id number] [address] [place] Bilirubin [Mass/Vol] 0.3 mg/dL Normal 0.2-1.3 [facility] Comment on above: Order Comment: Speci men Type: BLOOD SPECIMENOrdering Facility: [facility] Address: [address] [place] [address] Performed By: #### 1 9123-9, 95261-2, 277- ####[facility]ATORYCLIA [id number] [address] [place] Calcium [Mass/Vol] 8.9 mg/dL Normal 8.5-10.2 [facility] Comment on above: Order Comment: Speci men Type: BLOOD SPECIMENOrdering Facility: [facility] Address: [address] [place] [address] Performed By: #### 1 9123-9, 02472-1, 2777-1 ####[facility]ATORYCLIA [id number] [place] [address] [place] Chloride [Moles/Vol] 101 mmol/L Normal 97-105 [facility] Comment on above: Order Comment: Speci men Type: BLOOD SPECIMENOrdering Facility: [facility] Address: [address] [place] [address] Performed By: #### 1 9123-9, 94476-1, 2777-1 ####[facility]ATORYCLIA [id number] [place] [id number] [place] CO2 [Moles/Vol] 27 mmol/L Normal 22-30 [facility] Comment on above: Order Comment: Speci men Type: BLOOD SPECIMENOrdering Facility: [facility] Address: [address] [place] [address] Performed By: #### 1 9123-9, 84047-1, 2777-1 ####[facility]ATORYCLIA [id number] [address] Creatinine [Mass/Vol] 0.76 mg/dL Normal 0.58-0.96 [facility] Comment on above: Order Comment: Speci men Type: BLOOD SPECIMENOrdering Facility: [facility] Address: [address] [place] [address] Performed By: #### 1 9123-9, 68786-1, 2777-1 ####[facility]ATORYCLIA [id number] [address] Creatinine and Glomerular filtration rate.predicted panel (S/P/Bld) 87 mL/min/1.73m??? Normal >=60 [facility] Comment on above: Order Comment: Speci men Type: BLOOD SPECIMENOrdering Facility: [facility] Address: [address] [place] [address] Result Comment: Swetha mated Glomerular Filtration Rate [...] actual GFR. Performed By: #### 1 9123-9, , 2776-07 ####[facility]ATORYCLIA [id number] [place] [address] [place] Glucose [Mass/Vol] 177 mg/dL High 74-99 [facility] Comment on above: Order Comment: Key albrecht Type: BLOOD SPECIMENOrdering Facility: [facility] Address: [address] [place] [address] Result Comment: The [place] Diabetes [employer] (ADA) provides guidance for cutoff [...] Standards of Medical Care in Diabetes 2016, [place] [employer]. Diabetes Care. 2016.39(Suppl 1). Performed By: #### 1 9123-9, , 2776-07 ####[facility]ATORYCLIA [id number] [place] [address] [place] Potassium [Moles/Vol] 4.0 mmol/L Normal 3.7-5.1 [facility] Comment on above: Order Comment: Key albrecht Type: BLOOD SPECIMENOrdering Facility: [facility] Address: [address] [place] [address] Performed By: #### 1 9123-9, , 2776-07 ####[facility]ATORYCLIA [id number] [place] [address] [place] Protein [Mass/Vol] 6.7 g/dL Normal 6.3-8.0 [facility] Comment on above: Order Comment: Speci men Type: BLOOD SPECIMENOrdering Facility: [facility] Address: [address] [place] [address] Performed By: #### 1 9123-9, 94572-3, 2777- ####[facility]ATORYCLIA [id number] [place] [address] [place] Sodium [Moles/Vol] 137 mmol/L Normal 136-144 [facility] Comment on above: Order Comment: Speci men Type: BLOOD SPECIMENOrdering Facility: [facility] Address: [address] [place] [address] Performed By: #### 1 9123-9, 59288-2, 2777- ####[facility]ATORYCLIA [id number] [address] [place] Urea nitrogen [Mass/Vol] 11 mg/dL Normal 7-21 [facility] Comment on above: Order Comment: Speci men Type: BLOOD SPECIMENOrdering Facility: [facility] Address: [address] [place] [address] Performed By: #### 1 9123-9, 88246-9, 27712-29 ####[facility]ATORYCLIA [id number] [place] [address] [place] Magnesium SerPl-mCncon 09-22 Magnesium [Mass/Vol] 1.9 mg/dL Normal 1.7-2.3 [facility] Comment on above: Order Comment: Speci men Type: BLOOD SPECIMENOrdering Facility: [facility] Address: [address] [place] [address] Performed By: #### 1 9123-9, 75271-1, 2777- ####[facility]ORYCLIA [id number] [place] [address] [place] NUTRITIONon 09-23-2023 NUTRITION Normal [facility] Phosphate SerPl-mCncon 09-22 Phosphate [Mass/Vol] 3.9 mg/dL Normal 2.7-4.8 [facility] Comment on above: Order Comment: Speci men Type: BLOOD SPECIMENOrdering Facility: [facility] Address: [address] [place] [address] Performed By: #### 1 9123-9, 28825-5, 2777-1 ####[facility]ATORYCLIA [id number] [address] [place] THERAPY NTon 09-23-2023 THERAPY NT Normal [facility] THERAPY NT Normal [facility] CBC W Auto Differential pane l (Bld)on 09-22-2023 Basophils (Bld) [#/Vol] 10*3/uL Normal <0.11 [facility] Comment on above: Order Comment: Speci men Type: BLOOD SPECIMENOrdering Facility: [facility] Address: [address] [place] [address] Performed By: #### 5 7021-8 ####[facility]ATORYCLIA [id number] [address] [place] Basophils/100 WBC (Bld) 0.2 % Normal [facility] Comment on above: Order Comment: Speci men Type: BLOOD SPECIMENOrdering Facility: [facility] Address: [address] [place] [address] Performed By: #### 5 7021-8 ####[facility]ATORYCLIA [id number] [address] [place] Differential cell count method Nom (Bld) Auto Normal [facility] Comment on above: Order Comment: Speci men Type: BLOOD SPECIMENOrdering Facility: [facility] Address: [address] [place] [address] Performed By: #### 5 7021-8 ####[facility] LABORATORYCLIA [id number] [place] [address] [place] Eosinophils (Bld) [#/Vol] 0.07 10*3/uL Normal <0.46 [facility] Comment on above: Order Comment: Speci men Type: BLOOD SPECIMENOrdering Facility: [facility] Address: [address] [place] [address] Performed By: #### 5 7021-8 ####[facility]ORATORYCLIA [id number] [address] [place] Eosinophils/100 WBC (Bld) 0.7 % Normal [facility] Comment on above: Order Comment: Speci men Type: BLOOD SPECIMENOrdering Facility: [facility] Address: [address] [place] [address] Performed By: #### 5 7021-8 ####[facility]ORATORYCLIA [id number] [address] Erythrocyte distribution width (RBC) [Ratio] 13.7 % Normal 11.5-15.0 [facility] Comment on above: Order Comment: Speci men Type: BLOOD SPECIMENOrdering Facility: [facility] Address: [address] [place] [address] Performed By: #### 5 7021-8 ####[facility] LABORATORYCLIA [id number] [address] [place] Hematocrit (Bld) [Volume fraction] 32.0 % Low 36.0-46.0 [facility] Comment on above: Order Comment: Speci men Type: BLOOD SPECIMENOrdering Facility: [facility] Address: [address] [place] [address] Performed By: #### 5 7021-8 ####[facility]ORATORYCLIA [id number] [address] [place] Hemoglobin (Bld) [Mass/Vol] 10.7 g/dL Low 11.5-15.5 [facility] Comment on above: Order Comment: Speci men Type: BLOOD SPECIMENOrdering Facility: [facility] Address: [address] [place] [address] Performed By: #### 5 7021-8 ####[facility]ORATORYCLIA [id number] [address] Immature granulocytes (Bld) [#/Vol] 0.04 10*3/uL Normal <0.10 [facility] Comment on above: Order Comment: Speci men Type: BLOOD SPECIMENOrdering Facility: [facility] Address: [address] [place] [address] Performed By: #### 5 7021-8 ####[facility]ATORYCLIA [id number] [address] Immature granulocytes/100 WBC (Bld) 0.4 % Normal [facility] Comment on above: Order Comment: Speci men Type: BLOOD SPECIMENOrdering Facility: [facility] Address: [address] [place] [address] Performed By: #### 5 7021-8 ####[facility]ATORYCLIA [id number] [address] [place] Lymphocytes (Bld) [#/Vol] 2.76 10*3/uL Normal 1.00-4.00 [facility] Comment on above: Order Comment: Speci men Type: BLOOD SPECIMENOrdering Facility: [facility] Address: [address] [place] [address] Performed By: #### 5 7021-8 ####[facility]ATORYCLIA [id number] [address] Lymphocytes/100 WBC (Bld) 28.9 % Normal [facility] Comment on above: Order Comment: Speci men Type: BLOOD SPECIMENOrdering Facility: [facility] Address: [address] [place] [address] Performed By: #### 5 7021-8 ####[facility]ORATORYCLIA [id number] [address] [place] MCH (RBC) [Entitic mass] 26.4 pg Normal 26.0-34.0 [facility] Comment on above: Order Comment: Speci men Type: BLOOD SPECIMENOrdering Facility: [facility] Address: [address] [place] [address] Performed By: #### 5 7021-8 ####[facility]ORATORYCLIA [id number] [address] [place] MCHC (RBC) [Mass/Vol] 33.4 g/dL Normal 30.5-36.0 [facility] Comment on above: Order Comment: Speci men Type: BLOOD SPECIMENOrdering Facility: [facility] Address: [address] [place] [address] Performed By: #### 5 7021-8 ####[facility]ATORYCLIA [id number] [place] [address] [place] MCV (RBC) [Entitic vol] 79.0 fL Low 80.0-100.0 [facility] Comment on above: Order Comment: Speci men Type: BLOOD SPECIMENOrdering Facility: [facility] Address: [address] [place] [address] Performed By: #### 5 7021-8 ####[facility]ATORYCLIA [id number] [address] [place] Monocytes (Bld) [#/Vol] 0.44 10*3/uL Normal <0.87 [facility] Comment on above: Order Comment: Speci men Type: BLOOD SPECIMENOrdering Facility: [facility] Address: [address] [place] [address] Performed By: #### 5 7021-8 ####[facility]ATORYCLIA [id number] [address] Monocytes/100 WBC (Bld) 4.6 % Normal [facility] Comment on above: Order Comment: Speci men Type: BLOOD SPECIMENOrdering Facility: [facility] Address: [address] [place] [address] Performed By: #### 5 7021-8 ####[facility]ATORYCLIA [id number] [place] [address] [place] Neutrophils (Bld) [#/Vol] 6.22 10*3/uL Normal 1.45-7.50 [facility] Comment on above: Order Comment: Speci men Type: BLOOD SPECIMENOrdering Facility: [facility] Address: [address] [place] [address] Performed By: #### 5 7021-8 ####[facility]ATORYCLIA [id number] [address] [place] Neutrophils/100 WBC (Bld) 65.2 % Normal [facility] Comment on above: Order Comment: Speci men Type: BLOOD SPECIMENOrdering Facility: [facility] Address: [address] [place] [address] Performed By: #### 5 7021-8 ####[facility]ATORYCLIA [id number] [address] [place] Nucleated RBC (Bld) [#/Vol] 10*3/uL Normal <0.01 [facility] Comment on above: Order Comment: Speci men Type: BLOOD SPECIMENOrdering Facility: [facility] Address: [address] [place] [address] Performed By: #### 5 7021-8 ####[facility]ATORYCLIA [id number] [address] Nucleated RBC/100 WBC (Bld) [Ratio] 0.0 /100 WBC Normal [facility] Comment on above: Order Comment: Speci men Type: BLOOD SPECIMENOrdering Facility: [facility] Address: [address] [place] [address] Performed By: #### 5 7021-8 ####[facility]ORATORYCLIA [id number] [address] [place] Platelet mean volume (Bld) [Entitic vol] 9.5 fL Normal 9.0-12.7 [facility] Comment on above: Order Comment: Speci men Type: BLOOD SPECIMENOrdering Facility: [facility] Address: [address] [place] [address] Performed By: #### 5 7021-8 ####[facility]ATORYCLIA [id number] [place] [address] [place] Platelets (Bld) [#/Vol] 203 10*3/uL Normal 150-400 [facility] Comment on above: Order Comment: Speci men Type: BLOOD SPECIMENOrdering Facility: [facility] Address: [address] [place] [address] Performed By: #### 5 7021-8 ####[facility]ORATORYCLIA [id number] [place] [address] [place] RBC (Bld) [#/Vol] 4.05 10*6/uL Normal 3.90-5.20 [facility] Comment on above: Order Comment: Speci men Type: BLOOD SPECIMENOrdering Facility: [facility] Address: [address] [place] [address] Performed By: #### 5 7021-8 ####[facility]ATORYCLIA [id number] [address] [place] WBC (Bld) [#/Vol] 9.55 10*3/uL Normal 3.70-11.00 [facility] Comment on above: Order Comment: Speci men Type: BLOOD SPECIMENOrdering Facility: [facility] Address: [address] [place] [address] Performed By: #### 5 7021-8 ####[facility]ORATORYCLIA [id number] [address] [place] CT BRAIN WO IVCONon 09-22-19 CT BRAIN WO IVCON Normal [facility] Comprehensive metabolic 2000 panelon 09-22-2023 Albumin [Mass/Vol] 3.0 g/dL Low 3.9-4.9 [facility] Comment on above: Order Comment: Speci men Type: BLOOD SPECIMENOrdering Facility: [facility] Address: [address] [place] [address] Performed By: #### 2 4323-8, 2776-07, ####[facility]ORATORYCLIA [id number] [address] [place] ALP [Catalytic activity/Vol] 113 U/L Normal 34-123 [facility] Comment on above: Order Comment: Speci men Type: BLOOD SPECIMENOrdering Facility: [facility] Address: [address] [place] [address] Performed By: #### 2 4323-8, 2777, ####[facility]ORATORYCLIA [id number] [address] OF [facility] ALT With P-5'-P [Catalytic activity/Vol] 12 U/L Normal 7-38 [facility] Comment on above: Order Comment: Speci men Type: BLOOD SPECIMENOrdering Facility: [facility] Address: [address] [place] [address] Performed By: #### 2 4323-8, 27712-29, ####[facility]ATORYCLIA [id number] [address] STATES OF [facility] Anion gap [Moles/Vol] 11 mmol/L Normal 9-18 [facility] Comment on above: Order Comment: Speci men Type: BLOOD SPECIMENOrdering Facility: [facility] Address: [address] [place] [address] Performed By: #### 2 4323-8, 2776-07, ####[facility]ATORYCLIA [id number] [address] OF [facility] AST With P-5'-P [Catalytic activity/Vol] 15 U/L Normal 13-35 [facility] Comment on above: Order Comment: Speci men Type: BLOOD SPECIMENOrdering Facility: [facility] Address: [address] [place] [address] Performed By: #### 2 4323-8, 2776-07, ####[facility]ATORYCLIA [id number] [address] [place] Bilirubin [Mass/Vol] 0.3 mg/dL Normal 0.2-1.3 [facility] Comment on above: Order Comment: Speci men Type: BLOOD SPECIMENOrdering Facility: [facility] Address: [address] [place] [address] Performed By: #### 2 4323-8, 2776-07, ####[facility]ATORYCLIA [id number] [address] [place] Calcium [Mass/Vol] 8.6 mg/dL Normal 8.5-10.2 [facility] Comment on above: Order Comment: Speci men Type: BLOOD SPECIMENOrdering Facility: [facility] Address: [address] [place] [address] Performed By: #### 2 4323-8, 2776-07, ####[facility]ATORYCLIA [id number] [place] [address] [place] Chloride [Moles/Vol] 102 mmol/L Normal 97-105 [facility] Comment on above: Order Comment: Speci men Type: BLOOD SPECIMENOrdering Facility: [facility] Address: [address] [place] [address] Performed By: #### 2 4323-8, 2776-07, ####[facility]ATORYCLIA [id number] [place] [address] [place] CO2 [Moles/Vol] 24 mmol/L Normal 22-30 [facility] Comment on above: Order Comment: Speci men Type: BLOOD SPECIMENOrdering Facility: [facility] Address: [address] [place] [address] Performed By: #### 2 4323-8, 2776-07, ####[facility]ATORYCLIA [id number] [place] [address] [place] Creatinine [Mass/Vol] 0.78 mg/dL Normal 0.58-0.96 [facility] Comment on above: Order Comment: Speci men Type: BLOOD SPECIMENOrdering Facility: [facility] Address: [address] [place] [address] Performed By: #### 2 4323-8, 2776-07, ####[facility]ATORYCLIA [id number] [address] Creatinine and Glomerular filtration rate.predicted panel (S/P/Bld) 84 mL/min/1.73m??? Normal >=60 [facility] Comment on above: Order Comment: Speci men Type: BLOOD SPECIMENOrdering Facility: [facility] Address: [address], [place] [address] Result Comment: Swetha mated Glomerular Filtration Rate [...] GFR. Performed By: #### 2 4323-8, 2777-, ####[facility]CLIA [id number] [place] [id number] [place] Glucose [Mass/Vol] 153 mg/dL High 74-99 [facility] Comment on above: Order Comment: Key albrecht Type: BLOOD SPECIMENOrdering Facility: [facility] Address: [address] [place] [address] Result Comment: The [place] [employer] (ADA) provides guidance for cutoff [...] Standards of Medical Care in Diabetes 2016, [place] [employer]. Diabetes Care. 2016.39(Suppl 1). Performed By: #### 2 4323-8, 2777, ####[facility] HOSPITALIA [id number] [place] [address] [place] Potassium [Moles/Vol] 3.7 mmol/L Normal 3.7-5.1 [facility] Comment on above: Order Comment: Key albrecht Type: BLOOD SPECIMENOrdering Facility: [facility] Address: [address] [place] [address] Performed By: #### 2 4323-8, 2777-, ####[facility] LABORATORYIA [id number] [place] [address] [place] Protein [Mass/Vol] 6.4 g/dL Normal 6.3-8.0 [facility] Comment on above: Order Comment: Speci men Type: BLOOD SPECIMENOrdering Facility: [facility] Address: [address] [place] [address] Performed By: #### 2 4323-8, 27712-29, ####[facility]ATORYCLIA [id number] [place] [id number] [place] Sodium [Moles/Vol] 137 mmol/L Normal 136-144 [facility] Comment on above: Order Comment: Speci men Type: BLOOD SPECIMENOrdering Facility: [facility] Address: [address] [place] [address] Performed By: #### 2 4323-8, 2776-07, ####[facility]ATORYCLIA [id number] [place] [address] [place] Urea nitrogen [Mass/Vol] 9 mg/dL Normal 7-21 [facility] Comment on above: Order Comment: Speci men Type: BLOOD SPECIMENOrdering Facility: [facility] Address: [address] [place] [address] Performed By: #### 2 4323-8, 2776-07, ####[facility]ATORYCLIA [id number] [place] [address] [place] Magnesium SerPl-mCncon 09-21 Magnesium [Mass/Vol] 1.7 mg/dL Normal 1.7-2.3 [facility] Comment on above: Order Comment: Speci men Type: BLOOD SPECIMENOrdering Facility: [facility] Address: [address] [place] [address] Performed By: #### 2 4323-8, 2776-07, ####[facility]ATORYCLIA [id number] [place] [id number] [place] Phosphate SerPl-mCncon 09-21 Phosphate [Mass/Vol] 3.6 mg/dL Normal 2.7-4.8 [facility] Comment on above: Order Comment: Speci men Type: BLOOD SPECIMENOrdering Facility: [facility] Address: [address] [place] [address] Performed By: #### 2 4323-8, 2777-1, 78588-3 ####[facility]ORATORYCLIA [id number] [place] [address] [place] CBC W Auto Differential pane l (Bld)on 09-21-2023 Basophils (Bld) [#/Vol] 10*3/uL Normal <0.11 [facility] Comment on above: Order Comment: Speci men Type: BLOOD SPECIMENOrdering Facility: [facility] Address: [address] [place] [address] Performed By: #### 5 7021-8 ####[facility]ORATORYCLIA [id number] [address] [place] Basophils/100 WBC (Bld) 0.3 % Normal [facility] Comment on above: Order Comment: Speci men Type: BLOOD SPECIMENOrdering Facility: [facility] Address: [address] [place] [address] Performed By: #### 5 7021-8 ####[facility]ORATORYCLIA [id number] [address] STATES [facility] Differential cell count method Nom (Bld) Auto Normal [facility] Comment on above: Order Comment: Speci men Type: BLOOD SPECIMENOrdering Facility: [facility] Address: [address] [place] [address] Performed By: #### 5 7021-8 ####[facility]ORATORYCLIA [id number] [place] [address] [place] Eosinophils (Bld) [#/Vol] 0.18 10*3/uL Normal <0.46 [facility] Comment on above: Order Comment: Speci men Type: BLOOD SPECIMENOrdering Facility: [facility] Address: [address] [place] [address] Performed By: #### 5 7021-8 ####[facility]ORATORYCLIA [id number] [address] [place] Eosinophils/100 WBC (Bld) 2.3 % Normal [facility] Comment on above: Order Comment: Speci men Type: BLOOD SPECIMENOrdering Facility: [facility] Address: [address] [place] [address] Performed By: #### 5 7021-8 ####[facility]ORATORYCLIA [id number] [address] Erythrocyte distribution width (RBC) [Ratio] 13.6 % Normal 11.5-15.0 [facility] Comment on above: Order Comment: Speci men Type: BLOOD SPECIMENOrdering Facility: [facility] Address: [address] [place] [address] Performed By: #### 5 7021-8 ####[facility]ORATORYCLIA [id number] [address] [place] Hematocrit (Bld) [Volume fraction] 29.1 % Low 36.0-46.0 [facility] Comment on above: Order Comment: Speci men Type: BLOOD SPECIMENOrdering Facility: [facility] Address: [address] [place] [address] Performed By: #### 5 7021-8 ####[facility]ORATORYCLIA [id number] [address] [place] Hemoglobin (Bld) [Mass/Vol] 9.6 g/dL Low 11.5-15.5 [facility] Comment on above: Order Comment: Speci men Type: BLOOD SPECIMENOrdering Facility: [facility] Address: [address] [place] [address] Performed By: #### 5 7021-8 ####[facility]ATORYCLIA [id number] [address] Immature granulocytes (Bld) [#/Vol] 10*3/uL Normal <0.10 [facility] Comment on above: Order Comment: Speci men Type: BLOOD SPECIMENOrdering Facility: [facility] Address: [address] [place] [address] Performed By: #### 5 7021-8 ####[facility]ORATORYCLIA [id number] [address] OF [facility] Immature granulocytes/100 WBC (Bld) 0.3 % Normal [facility] Comment on above: Order Comment: Speci men Type: BLOOD SPECIMENOrdering Facility: [facility] Address: [address] [place] [address] Performed By: #### 5 7021-8 ####[facility]ATORYCLIA [id number] [address] [place] Lymphocytes (Bld) [#/Vol] 2.06 10*3/uL Normal 1.00-4.00 [facility] Comment on above: Order Comment: Speci men Type: BLOOD SPECIMENOrdering Facility: [facility] Address: [address] [place] [address] Performed By: #### 5 7021-8 ####[facility]ATORYCLIA [id number] [address] Lymphocytes/100 WBC (Bld) 26.8 % Normal [facility] Comment on above: Order Comment: Speci men Type: BLOOD SPECIMENOrdering Facility: [facility] Address: [address] [place] [address] Performed By: #### 5 7021-8 ####[facility]ATORYCLIA [id number] [address] [place] MCH (RBC) [Entitic mass] 26.4 pg Normal 26.0-34.0 [facility] Comment on above: Order Comment: Speci men Type: BLOOD SPECIMENOrdering Facility: [facility] Address: [address] [place] [address] Performed By: #### 5 7021-8 ####[facility]ORATORYCLIA [id number] [address] [place] MCHC (RBC) [Mass/Vol] 33.0 g/dL Normal 30.5-36.0 [facility] Comment on above: Order Comment: Speci men Type: BLOOD SPECIMENOrdering Facility: [facility] Address: [address] [place] [address] Performed By: #### 5 7021-8 ####[facility]ORATORYCLIA [id number] [place] [address] [place] MCV (RBC) [Entitic vol] 79.9 fL Low 80.0-100.0 [facility] Comment on above: Order Comment: Speci men Type: BLOOD SPECIMENOrdering Facility: [facility] Address: [address] [place] [address] Performed By: #### 5 7021-8 ####[facility]ORATORYCLIA [id number] [place] [address] [place] Monocytes (Bld) [#/Vol] 0.34 10*3/uL Normal <0.87 [facility] Comment on above: Order Comment: Speci men Type: BLOOD SPECIMENOrdering Facility: [facility] Address: [address] [place] [address] Performed By: #### 5 7021-8 ####[facility]ATORYCLIA [id number] [address] [place] Monocytes/100 WBC (Bld) 4.4 % Normal [facility] Comment on above: Order Comment: Speci men Type: BLOOD SPECIMENOrdering Facility: [facility] Address: [address] [place] [address] Performed By: #### 5 7021-8 ####[facility]ATORYCLIA [id number] [place] [address] [place] Neutrophils (Bld) [#/Vol] 5.07 10*3/uL Normal 1.45-7.50 [facility] Comment on above: Order Comment: Speci men Type: BLOOD SPECIMENOrdering Facility: [facility] Address: [address] [place] [address] Performed By: #### 5 7021-8 ####[facility]ATORYCLIA [id number] [place] [address] [place] Neutrophils/100 WBC (Bld) 65.9 % Normal [facility] Comment on above: Order Comment: Speci men Type: BLOOD SPECIMENOrdering Facility: [facility] Address: [address] [place] [address] Performed By: #### 5 7021-8 ####[facility]ATORYCLIA [id number] [address] [place] Nucleated RBC (Bld) [#/Vol] 10*3/uL Normal <0.01 [facility] Comment on above: Order Comment: Speci men Type: BLOOD SPECIMENOrdering Facility: [facility] Address: [address] [place] [address] Performed By: #### 5 7021-8 ####[facility]ATORYCLIA [id number] [address] Nucleated RBC/100 WBC (Bld) [Ratio] 0.0 /100 WBC Normal [facility] Comment on above: Order Comment: Speci men Type: BLOOD SPECIMENOrdering Facility: [facility] Address: [address] [place] [address] Performed By: #### 5 7021-8 ####[facility]ATORYCLIA [id number] [address] Platelet mean volume (Bld) [Entitic vol] 9.5 fL Normal 9.0-12.7 [facility] Comment on above: Order Comment: Speci men Type: BLOOD SPECIMENOrdering Facility: [facility] Address: [address] [place] [address] Performed By: #### 5 7021-8 ####[facility]ORATORYCLIA [id number] [place] [address] [place] Platelets (Bld) [#/Vol] 179 10*3/uL Normal 150-400 [facility] Comment on above: Order Comment: Speci men Type: BLOOD SPECIMENOrdering Facility: [facility] Address: [address] [place] [address] Performed By: #### 5 7021-8 ####[facility]ORATORYCLIA [id number] [address] OF [facility] RBC (Bld) [#/Vol] 3.64 10*6/uL Low 3.90-5.20 [facility] Comment on above: Order Comment: Speci men Type: BLOOD SPECIMENOrdering Facility: [facility] Address: [address] [place] [address] Performed By: #### 5 7021-8 ####[facility]ORATORYCLIA [id number] [address] WBC (Bld) [#/Vol] 7.69 10*3/uL Normal 3.70-11.00 [facility] Comment on above: Order Comment: Speci men Type: BLOOD SPECIMENOrdering Facility: [facility] Address: [address] [place] [address] Performed By: #### 5 7021-8 ####[facility]ATORYCLIA [id number] [address] Comprehensive metabolic 2000 panelon 09-21-2023 Albumin [Mass/Vol] 2.8 g/dL Low 3.9-4.9 [facility] Comment on above: Order Comment: Speci men Type: BLOOD SPECIMENOrdering Facility: [facility] Address: [address] [place] [address] Performed By: #### 2 4323-8, 2777, ####[facility]ATORYCLIA [id number] [address] ALP [Catalytic activity/Vol] 101 U/L Normal 34-123 [facility] Comment on above: Order Comment: Speci men Type: BLOOD SPECIMENOrdering Facility: [facility] Address: [address] [place] [address] Performed By: #### 2 4323-8, 2777-1, ####[facility]ATORYCLIA [id number] [address] ALT With P-5'-P [Catalytic activity/Vol] 10 U/L Normal 7-38 [facility] Comment on above: Order Comment: Speci men Type: BLOOD SPECIMENOrdering Facility: [facility] Address: [address] [place] [address] Performed By: #### 2 4323-8, 2776-07, ####[facility]ORATORYCLIA [id number] [place] [address] [place] [facility] Anion gap [Moles/Vol] 6 mmol/L Low 9-18 [facility] Comment on above: Order Comment: Speci men Type: BLOOD SPECIMENOrdering Facility: [facility] Address: [address] [place] [address] Performed By: #### 2 4323-8, 2776-07, ####[facility] LABORATORYCLIA [id number] [place] [address] [place] With P-5'-P [Catalytic activity/Vol] 13 U/L Normal 13-35 [facility] Comment on above: Order Comment: Speci men Type: BLOOD SPECIMENOrdering Facility: [facility] Address: [address] [place] [address] Performed By: #### 2 4323-8, 2776-07, ####[facility] LABORATORYCLIA [id number] [place] [address] [place] Bilirubin [Mass/Vol] mg/dL Low 0.2-1.3 [facility] Comment on above: Order Comment: Speci men Type: BLOOD SPECIMENOrdering Facility: [facility] Address: [address] [place] [address] Performed By: #### 2 4323-8, 2776-07, ####[facility] LABORATORYCLIA [id number] [address] [place] Calcium [Mass/Vol] 8.5 mg/dL Normal 8.5-10.2 [facility] Comment on above: Order Comment: Speci men Type: BLOOD SPECIMENOrdering Facility: [facility] Address: [address] [place] [address] Performed By: #### 2 4323-8, 2777, ####[facility] LABORATORYCLIA [id number] [place] [address] [place] Chloride [Moles/Vol] 104 mmol/L Normal 97-105 [facility] Comment on above: Order Comment: Speci men Type: BLOOD SPECIMENOrdering Facility: [facility] Address: [address] [place] [address] Performed By: #### 2 4323-8, 27712-29, ####[facility]ORATORYCLIA [id number] [place] [address] [place] CO2 [Moles/Vol] 25 mmol/L Normal 22-30 [facility] Comment on above: Order Comment: Speci men Type: BLOOD SPECIMENOrdering Facility: [facility] Address: [address] [place] [address] Performed By: #### 2 4323-8, 27712-29, ####[facility]ORATORYCLIA [id number] [place] [id number] [place] Creatinine [Mass/Vol] 0.84 mg/dL Normal 0.58-0.96 [facility] Comment on above: Order Comment: Speci men Type: BLOOD SPECIMENOrdering Facility: [facility] Address: [address] [place] [address] Performed By: #### 2 4323-8, 27712-29, ####[facility]ORATORYCLIA [id number] [place] [id number] [facility] Creatinine and Glomerular filtration rate.predicted panel (S/P/Bld) 77 mL/min/1.73m??? Normal >=60 [facility] Comment on above: Order Comment: Speci men Type: BLOOD SPECIMENOrdering Facility: [facility] Address: [address] [place] [address] Result Comment: Swetha mated Glomerular Filtration Rate [...] GFR. Performed By: #### 2 4323-8, 2776-07, ####[facility]ORATORYCLIA [id number] [place] [address] [place] Glucose [Mass/Vol] 249 mg/dL High 74-99 [facility] Comment on above: Order Comment: Speci men Type: BLOOD SPECIMENOrdering Facility: [facility] Address: [address] [place], [place] [address] Result Comment: The [place] [employer] (ADA) provides guidance for cutoff [...] Standards of Medical Care in Diabetes 2016, [place] [employer]. Diabetes Care. 2016.39(Suppl 1). Performed By: #### 2 4323-8, 2776-07, ####[facility]ATORYCLIA [id number] [place] [address] [place] Potassium [Moles/Vol] 4.2 mmol/L Normal 3.7-5.1 [facility] Comment on above: Order Comment: Speci men Type: BLOOD SPECIMENOrdering Facility: [facility] Address: [address] [place] [address] Performed By: #### 2 4323-8, 27712-29, ####[facility]ORATORYCLIA [id number] [place] [address] [place] Protein [Mass/Vol] 5.9 g/dL Low 6.3-8.0 [facility] Comment on above: Order Comment: Speci men Type: BLOOD SPECIMENOrdering Facility: [facility] Address: [address] [place] [address] Performed By: #### 2 4323-8, 2776-07, ####[facility]ATORYCLIA [id number] [place] [address] [place] Sodium [Moles/Vol] 135 mmol/L Low 136-144 [facility] Comment on above: Order Comment: Speci men Type: BLOOD SPECIMENOrdering Facility: [facility] Address: [address] [place] [address] Performed By: #### 2 4323-8, 2776-07, ####[facility]ORATORYCLIA [id number] [place] [address] [place] Urea nitrogen [Mass/Vol] 11 mg/dL Normal 7-21 [facility] Comment on above: Order Comment: Speci men Type: BLOOD SPECIMENOrdering Facility: [facility] Address: [address] [place] [address] Performed By: #### 2 4323-8, 2776-07, ####[facility]ORATORYCLIA [id number] [place] [address] [place] Magnesium SerPl-mCncon 09-20 Magnesium [Mass/Vol] 2.0 mg/dL Normal 1.7-2.3 [facility] Comment on above: Order Comment: Speci men Type: BLOOD SPECIMENOrdering Facility: [facility] Address: [address] [place] [address] Performed By: #### 2 4323-8, 2776-07, ####[facility]ORATORYCLIA [id number] [place] [address] [place] Phosphate SerPl-mCncon 09-20 Phosphate [Mass/Vol] 4.3 mg/dL Normal 2.7-4.8 [facility] Comment on above: Order Comment: Speci men Type: BLOOD SPECIMENOrdering Facility: [facility] Address: [address] [place] [address] Performed By: #### 2 4323-8, 2777-1, 01002-5 ####[facility]ORATORYCLIA [id number] [address] [place] THERAPY NTon 09-21-2023 THERAPY NT Normal [facility] ARTERIAL BLOOD GASESon 09-19 Base excess Calc (Bld) [Moles/Vol] 1 mmol/L Normal 0-2 [facility] Comment on above: Order Comment: Speci men Type: ARTERIAL BLOOD SPECIMENOrdering Facility: [facility] Address: [address] [place] [address] Performed By: #### A LLBG ####[facility]ORATORYCLIA [id number] [address] [place] Body temperature 97.88 [degF] Normal [facility] Comment on above: Order Comment: Speci men Type: ARTERIAL BLOOD SPECIMENOrdering Facility: [facility] Address: [address] [place] [address] Performed By: #### A LLBG ####[facility]ORATORYCLIA [id number] [address] [place] Calcium.ionized (BldV) [Mass/Vol] 1.16 mmol/L Normal 1.08-1.30 [facility] Comment on above: Order Comment: Speci men Type: ARTERIAL BLOOD SPECIMENOrdering Facility: [facility] Address: [address] [place] [address] Performed By: #### A LLBG ####[facility]ORATORYCLIA [id number] [address] [place] Calcium.ionized adjusted to pH 7.4 (BldA) [Moles/Vol] 1.19 mmol/L Normal 1.08-1.30 [facility] Comment on above: Order Comment: Speci men Type: ARTERIAL BLOOD SPECIMENOrdering Facility: [facility] Address: [address] [place] [address] Performed By: #### A LLBG ####[facility]ATORYCLIA [id number] [address] [place] Carboxyhemoglobin (BldA) [Mass fraction] 1.6 % Normal 0.0-2.0 [facility] Comment on above: Order Comment: Speci men Type: ARTERIAL BLOOD SPECIMENOrdering Facility: [facility] Address: [address] [place] [address] Result Comment: Carb oxyhemoglobin Reference Range for Smokers: 2.0-8.0% Performed By: #### A LLBG ####[facility] LABORATORYCLIA [id number] [address] [place] Chloride [Moles/Vol] 110 mmol/L High 102-109 [facility] Comment on above: Order Comment: Speci men Type: ARTERIAL BLOOD SPECIMENOrdering Facility: [facility] Address: [address] [place] [address] Performed By: #### A LLBG ####[facility]ORATORYCLIA [id number] [address] [place] CO2 (Bld) [Partial pressure] 37 mm Hg Normal 36-46 [facility] Comment on above: Order Comment: Speci men Type: ARTERIAL BLOOD SPECIMENOrdering Facility: [facility] Address: [address] [place] [address] Performed By: #### A LLBG ####[facility]ORATORYCLIA [id number] [address] [place] CO2 adjusted to patient's actual temperature (Bld) [Partial pressure] 36 mmHg Normal 36-46 [facility] Comment on above: Order Comment: Speci men Type: ARTERIAL BLOOD SPECIMENOrdering Facility: [facility] Address: [address] [place] [address] Performed By: #### A LLBG ####[facility]ORATORYCLIA [id number] [place] [address] [place] FIO2 40 % Normal [facility] Comment on above: Order Comment: Speci men Type: ARTERIAL BLOOD SPECIMENOrdering Facility: [facility] Address: [address] [place] [address] Performed By: #### A LLBG ####[facility]ORATORYCLIA [id number] [address] [place] Glucose [Mass/Vol] 216 mg/dL High 60-105 [facility] Comment on above: Order Comment: Speci men Type: ARTERIAL BLOOD SPECIMENOrdering Facility: [facility] Address: [address] [place] [address] Performed By: #### A LLBG ####[facility]ORATORYCLIA [id number] [place] [address] [place] HCO3 (Bld) [Moles/Vol] 24 mmol/L Normal 22-26 [facility] Comment on above: Order Comment: Speci men Type: ARTERIAL BLOOD SPECIMENOrdering Facility: [facility] Address: [address] [place] [address] Performed By: #### A LLBG ####[facility]ORATORYCLIA [id number] [address] [place] Hematocrit (Bld) [Volume fraction] 30.0 % Low 36.0-46.0 [facility] Comment on above: Order Comment: Speci men Type: ARTERIAL BLOOD SPECIMENOrdering Facility: [facility] Address: [address] [place] [address] Performed By: #### A LLBG ####[facility]ORATORYCLIA [id number] [address] [place] Hemoglobin (Bld) [Mass/Vol] 9.7 g/dL Low 11.5-15.5 [facility] Comment on above: Order Comment: Speci men Type: ARTERIAL BLOOD SPECIMENOrdering Facility: [facility] Address: [address] [place] [address] Performed By: #### A LLBG ####[facility]ATORYCLIA [id number] [address] [place] INVASIVE VENTILATOR MODE Pressure Support, CPAP (PC-CSVs) Normal [facility] Comment on above: Order Comment: Speci men Type: ARTERIAL BLOOD SPECIMENOrdering Facility: [facility] Address: [address] [place] [address] Performed By: #### A LLBG ####[facility]ATORYCLIA [id number] [address] [place] Lactate [Moles/Vol] 1.0 mmol/L Normal 0.5-2.2 [facility] Comment on above: Order Comment: Speci men Type: ARTERIAL BLOOD SPECIMENOrdering Facility: [facility] Address: [address] [place] [address] Performed By: #### A LLBG ####[facility] LABORATORYCLIA [id number] [address] [place] Methemoglobin (Bld) [Mass fraction] 0.6 % Normal 0.0-1.5 [facility] Comment on above: Order Comment: Speci men Type: ARTERIAL BLOOD SPECIMENOrdering Facility: [facility] Address: [address] [place] [address] Performed By: #### A LLBG ####[facility]ATORYCLIA [id number] [address] [place] O2 THERAPY Ventilator Normal [facility] Comment on above: Order Comment: Speci men Type: ARTERIAL BLOOD SPECIMENOrdering Facility: [facility] Address: [address] [place] [address] Performed By: #### A LLBG ####[facility]ORATORYCLIA [id number] [address] [place] Oxygen (Bld) [Partial pressure] 97 mm Hg High 85-95 [facility] Comment on above: Order Comment: Speci men Type: ARTERIAL BLOOD SPECIMENOrdering Facility: [facility] Address: [address] [place] [address] Performed By: #### A LLBG ####[facility]ATORYCLIA [id number] [address] [place] Oxygen adjusted to patient's actual temperature (Bld) [Partial pressure] 95 mmHg Normal 85-95 [facility] Comment on above: Order Comment: Speci men Type: ARTERIAL BLOOD SPECIMENOrdering Facility: [facility] Address: [address] [place] [address] Performed By: #### A LLBG ####[facility]ATORYCLIA [id number] [address] [place] Oxyhemoglobin (BldA) [Mass fraction] 96 % Normal 95-98 [facility] Comment on above: Order Comment: Speci men Type: ARTERIAL BLOOD SPECIMENOrdering Facility: [facility] Address: [address] [place] [address] Performed By: #### A LLBG ####[facility]ORATORYCLIA [id number] [address] [place] pH (Bld) 7.44 [pH] Normal 7.35-7.45 [facility] Comment on above: Order Comment: Speci men Type: ARTERIAL BLOOD SPECIMENOrdering Facility: [facility] Address: [address] [place] [address] Performed By: #### A LLBG ####[facility]ORATORYCLIA [id number] [address] [place] pH adjusted to patient's actual temperature (Bld) 7.45 Normal 7.35-7.45 [facility] Comment on above: Order Comment: Speci men Type: ARTERIAL BLOOD SPECIMENOrdering Facility: [facility] Address: [address] [place] [address] Performed By: #### A LLBG ####[facility]ORATORYCLIA [id number] [address] [place] PO2 / FIO2 RATIO 243 mmHg Low >300 [facility] Comment on above: Order Comment: Speci men Type: ARTERIAL BLOOD SPECIMENOrdering Facility: [facility] Address: [address] [place] [address] Performed By: #### A LLBG ####[facility]ATORYCLIA [id number] [place] [address] [place] Potassium [Moles/Vol] 4.1 mmol/L Normal 3.5-5.0 [facility] Comment on above: Order Comment: Speci men Type: ARTERIAL BLOOD SPECIMENOrdering Facility: [facility] Address: [address] [place] [address] Performed By: #### A LLBG ####[facility]ORATORYCLIA [id number] [address] [place] Sodium [Moles/Vol] 137 mmol/L Normal 136-144 [facility] Comment on above: Order Comment: Speci men Type: ARTERIAL BLOOD SPECIMENOrdering Facility: [facility] Address: [address] [place] [address] Performed By: #### A LLBG ####[facility]ORATORYCLIA [id number] [address] [place] CASE MANAGEMon 09-20-2023 CASE MANAGEM Normal [facility] CBC W Auto Differential pane l (Bld)on 09-20-2023 Basophils (Bld) [#/Vol] 0.03 10*3/uL Normal <0.11 [facility] Comment on above: Order Comment: Speci men Type: BLOOD SPECIMENOrdering Facility: [facility] Address: [address] [place] [address] Performed By: #### 5 7021-8 ####[facility]ORATORYCLIA [id number] [address] [place] Basophils/100 WBC (Bld) 0.4 % Normal [facility] Comment on above: Order Comment: Speci men Type: BLOOD SPECIMENOrdering Facility: [facility] Address: [address] [place] [address] Performed By: #### 5 7021-8 ####[facility]ORATORYCLIA [id number] [address] STATES [facility] Differential cell count method Nom (Bld) Auto Normal [facility] Comment on above: Order Comment: Speci men Type: BLOOD SPECIMENOrdering Facility: [facility] Address: [address] [place] [address] Performed By: #### 5 7021-8 ####[facility]ATORYCLIA [id number] [address] [place] Eosinophils (Bld) [#/Vol] 0.14 10*3/uL Normal <0.46 [facility] Comment on above: Order Comment: Speci men Type: BLOOD SPECIMENOrdering Facility: [facility] Address: [address] [place] [address] Performed By: #### 5 7021-8 ####[facility]ORATORYCLIA [id number] [address] [place] Eosinophils/100 WBC (Bld) 1.7 % Normal [facility] Comment on above: Order Comment: Speci men Type: BLOOD SPECIMENOrdering Facility: [facility] Address: [address] [place] [address] Performed By: #### 5 7021-8 ####[facility]ORATORYCLIA [id number] [address] Erythrocyte distribution width (RBC) [Ratio] 14.0 % Normal 11.5-15.0 [facility] Comment on above: Order Comment: Speci men Type: BLOOD SPECIMENOrdering Facility: [facility] Address: [address] [place] [address] Performed By: #### 5 7021-8 ####[facility]ORATORYCLIA [id number] [address] [place] Hematocrit (Bld) [Volume fraction] 29.8 % Low 36.0-46.0 [facility] Comment on above: Order Comment: Speci men Type: BLOOD SPECIMENOrdering Facility: [facility] Address: [address] [place] [address] Performed By: #### 5 7021-8 ####[facility]ATORYCLIA [id number] [address] [place] Hemoglobin (Bld) [Mass/Vol] 9.8 g/dL Low 11.5-15.5 [facility] Comment on above: Order Comment: Speci men Type: BLOOD SPECIMENOrdering Facility: [facility] Address: [address] [place] [address] Performed By: #### 5 7021-8 ####[facility]ATORYCLIA [id number] [address] OF [place] Immature granulocytes (Bld) [#/Vol] 0.05 10*3/uL Normal <0.10 [facility] Comment on above: Order Comment: Speci men Type: BLOOD SPECIMENOrdering Facility: [facility] Address: [address] [place] [address] Performed By: #### 5 7021-8 ####[facility]ATORYCLIA [id number] [address] Immature granulocytes/100 WBC (Bld) 0.6 % Normal [facility] Comment on above: Order Comment: Speci men Type: BLOOD SPECIMENOrdering Facility: [facility] Address: [address] [place] [address] Performed By: #### 5 7021-8 ####[facility]ORATORYCLIA [id number] [address] Lymphocytes (Bld) [#/Vol] 2.11 10*3/uL Normal 1.00-4.00 [facility] Comment on above: Order Comment: Speci men Type: BLOOD SPECIMENOrdering Facility: [facility] Address: [address] [place] [address] Performed By: #### 5 7021-8 ####[facility]ATORYCLIA [id number] [address] Lymphocytes/100 WBC (Bld) 26.0 % Normal [facility] Comment on above: Order Comment: Speci men Type: BLOOD SPECIMENOrdering Facility: [facility] Address: [address] [place] [address] Performed By: #### 5 7021-8 ####[facility]ATORYCLIA [id number] [address] [place] MCH (RBC) [Entitic mass] 26.0 pg Normal 26.0-34.0 [facility] Comment on above: Order Comment: Speci men Type: BLOOD SPECIMENOrdering Facility: [facility] Address: [address] [place] [address] Performed By: #### 5 7021-8 ####[facility]ATORYCLIA [id number] [address] MCHC (RBC) [Mass/Vol] 32.9 g/dL Normal 30.5-36.0 [facility] Comment on above: Order Comment: Speci men Type: BLOOD SPECIMENOrdering Facility: [facility] Address: [address] [place] [address] Performed By: #### 5 7021-8 ####[facility]ORATORYCLIA [id number] [address] STATES OF [facility] MCV (RBC) [Entitic vol] 79.0 fL Low 80.0-100.0 [facility] Comment on above: Order Comment: Speci men Type: BLOOD SPECIMENOrdering Facility: [facility] Address: [address] [place] [address] Performed By: #### 5 7021-8 ####[facility]ATORYCLIA [id number] [address] Monocytes (Bld) [#/Vol] 0.41 10*3/uL Normal <0.87 [facility] Comment on above: Order Comment: Speci men Type: BLOOD SPECIMENOrdering Facility: [facility] Address: [address] [place] [address] Performed By: #### 5 7021-8 ####[facility]ATORYCLIA [id number] [address] Monocytes/100 WBC (Bld) 5.0 % Normal [facility] Comment on above: Order Comment: Speci men Type: BLOOD SPECIMENOrdering Facility: [facility] Address: [address] [place] [address] Performed By: #### 5 7021-8 ####[facility]ORATORYCLIA [id number] [address] [place] Neutrophils (Bld) [#/Vol] 5.39 10*3/uL Normal 1.45-7.50 [facility] Comment on above: Order Comment: Speci men Type: BLOOD SPECIMENOrdering Facility: [facility] Address: [address] [place] [address] Performed By: #### 5 7021-8 ####[facility]ATORYCLIA [id number] [address] [place] Neutrophils/100 WBC (Bld) 66.3 % Normal [facility] Comment on above: Order Comment: Speci men Type: BLOOD SPECIMENOrdering Facility: [facility] Address: [address] [place] [address] Performed By: #### 5 7021-8 ####[facility]ATORYCLIA [id number] [place] [address] [place] Nucleated RBC (Bld) [#/Vol] 10*3/uL Normal <0.01 [facility] Comment on above: Order Comment: Speci men Type: BLOOD SPECIMENOrdering Facility: [facility] Address: [address] [place] [address] Performed By: #### 5 7021-8 ####[facility]ATORYCLIA [id number] [address] [place] Nucleated RBC/100 WBC (Bld) [Ratio] 0.0 /100 WBC Normal [facility] Comment on above: Order Comment: Speci men Type: BLOOD SPECIMENOrdering Facility: [facility] Address: [address] [place] [address] Performed By: #### 5 7021-8 ####[facility]ATORYCLIA [id number] [address] [place] Platelet mean volume (Bld) [Entitic vol] 9.2 fL Normal 9.0-12.7 [facility] Comment on above: Order Comment: Speci men Type: BLOOD SPECIMENOrdering Facility: [facility] Address: [address] [place] [address] Performed By: #### 5 7021-8 ####[facility]ATORYCLIA [id number] [place] [address] [place] Platelets (Bld) [#/Vol] 176 10*3/uL Normal 150-400 [facility] Comment on above: Order Comment: Speci men Type: BLOOD SPECIMENOrdering Facility: [facility] Address: [address] [place] [address] Performed By: #### 5 7021-8 ####[facility]ATORYCLIA [id number] [place] [address] [place] RBC (Bld) [#/Vol] 3.77 10*6/uL Low 3.90-5.20 [facility] Comment on above: Order Comment: Speci men Type: BLOOD SPECIMENOrdering Facility: [facility] Address: [address] [place] [address] Performed By: #### 5 7021-8 ####[facility]ATORYCLIA [id number] [address] WBC (Bld) [#/Vol] 8.13 10*3/uL Normal 3.70-11.00 [facility] Comment on above: Order Comment: Speci men Type: BLOOD SPECIMENOrdering Facility: [facility] Address: [address] [place] [address] Performed By: #### 5 7021-8 ####[facility]ORATORYCLIA [id number] [address] OF [facility] CONSULT PROGon 09-20-2023 CONSULT PROG Normal [facility] Comprehensive metabolic 2000 panelon 09-20-2023 Albumin [Mass/Vol] 2.8 g/dL Low 3.9-4.9 [facility] Comment on above: Order Comment: Speci men Type: BLOOD SPECIMENOrdering Facility: [facility] Address: [address] [place] [address] Performed By: #### 2 777-1, 79676-8, 59886-8 ####[facility]ORATORYCLIA [id number] [place] [address] [place] ALP [Catalytic activity/Vol] 89 U/L Normal 34-123 [facility] Comment on above: Order Comment: Speci men Type: BLOOD SPECIMENOrdering Facility: [facility] Address: [address] [place] [address] Performed By: #### 2 777-1, , ####[facility]ATORYCLIA [id number] [place] [address] [place] ALT With P-5'-P [Catalytic activity/Vol] 8 U/L Normal 7-38 [facility] Comment on above: Order Comment: Speci men Type: BLOOD SPECIMENOrdering Facility: [facility] Address: [address] [place] [address] Performed By: #### 2 777-1, , ####[facility]ATORYCLIA [id number] [address] [place] Anion gap [Moles/Vol] 7 mmol/L Low 9-18 [facility] Comment on above: Order Comment: Speci men Type: BLOOD SPECIMENOrdering Facility: [facility] Address: [address] [place] [address] Performed By: #### 2 777-1, , ####[facility]ATORYCLIA [id number] [address] [place] AST With P-5'-P [Catalytic activity/Vol] 11 U/L Low 13-35 [facility] Comment on above: Order Comment: Speci men Type: BLOOD SPECIMENOrdering Facility: [facility] Address: [address] [place] [address] Performed By: #### 2 777-1, , ####[facility] LABORATORYCLIA [id number] [place] [address] [place] Bilirubin [Mass/Vol] mg/dL Low 0.2-1.3 [facility] Comment on above: Order Comment: Speci men Type: BLOOD SPECIMENOrdering Facility: [facility] Address: [address] [place] [id number] Performed By: #### 2 777-1, , ####[facility] LABORATORYCLIA [id number] [place] [address] [place] Calcium [Mass/Vol] 8.2 mg/dL Low 8.5-10.2 [facility] Comment on above: Order Comment: Speci men Type: BLOOD SPECIMENOrdering Facility: [facility] Address: [facility] [place] [address] Performed By: #### 2 777-1, , ####[facility] LABORATORYCLIA [id number] [place] [address] [place] Chloride [Moles/Vol] 104 mmol/L Normal 97-105 [facility] Comment on above: Order Comment: Speci men Type: BLOOD SPECIMENOrdering Facility: [facility] Address: [address] [place] [address] Performed By: #### 2 777-1, , ####[facility] LABORATORYCLIA [id number] [place] [address] [place] CO2 [Moles/Vol] 25 mmol/L Normal 22-30 [facility] Comment on above: Order Comment: Speci men Type: BLOOD SPECIMENOrdering Facility: [facility] Address: [address] [place] [address] Performed By: #### 2 777-1, , ####[facility] LABORATORYCLIA [id number] [place] [id number] [place] Creatinine [Mass/Vol] 0.82 mg/dL Normal 0.58-0.96 [facility] Comment on above: Order Comment: Speci men Type: BLOOD SPECIMENOrdering Facility: [facility] Address: [address] [place] [address] Performed By: #### 2 777-1, , ####[facility]ORATORYCLIA [id number] [place] [address] [place] Creatinine and Glomerular filtration rate.predicted panel (S/P/Bld) 79 mL/min/1.73m??? Normal >=60 [facility] Comment on above: Order Comment: Key albrecht Type: BLOOD SPECIMENOrdering Facility: [facility] Address: [address] [place] [address] Result Comment: Swetha mated Glomerular Filtration Rate [...] actual GFR. Performed By: #### 2 777-1, 00977-0, 54427-7 ####[facility] LABORATORYCLIA [id number] [place] [address] [place] Glucose [Mass/Vol] 239 mg/dL High 74-99 [facility] Comment on above: Order Comment: Key albrecht Type: BLOOD SPECIMENOrdering Facility: [facility] Address: [address] [place] [address] Result Comment: The [place] Diabetes Association (ADA) provides guidance for cutoff [...] Standards of Medical Care in Diabetes 2016, [place] [employer]. Diabetes Care. 2016.39(Suppl 1). Performed By: #### 2 777-1, 30425-6, 12801-7 ####[facility] LABORATORYCLIA [id number] [place] [address] [place] Potassium [Moles/Vol] 3.5 mmol/L Low 3.7-5.1 [facility] Comment on above: Order Comment: Speci men Type: BLOOD SPECIMENOrdering Facility: [facility] Address: [address] [place] [address] Performed By: #### 2 777-1, , ####[facility] LABORATORYCLIA [id number] [place] [address] [place] Protein [Mass/Vol] 5.8 g/dL Low 6.3-8.0 [facility] Comment on above: Order Comment: Speci men Type: BLOOD SPECIMENOrdering Facility: [facility] Address: [address] [place] [address] Performed By: #### 2 777-1, , ####[facility] LABORATORYCLIA [id number] [place] [address] [place] Sodium [Moles/Vol] 136 mmol/L Normal 136-144 [facility] Comment on above: Order Comment: Speci men Type: BLOOD SPECIMENOrdering Facility: [facility] Address: [address] [place] [address] Performed By: #### 2 777-1, , ####[facility]ORATORYCLIA [id number] [place] [address] [place] Urea nitrogen [Mass/Vol] 9 mg/dL Normal 7-21 [facility] Comment on above: Order Comment: Speci men Type: BLOOD SPECIMENOrdering Facility: [facility] Address: [address] [place] [address] Performed By: #### 2 777-1, , ####[facility] LABORATORYCLIA [id number] [place] [address] [place] Magnesium SerPl-mCncon 09-19 Magnesium [Mass/Vol] 1.8 mg/dL Normal 1.7-2.3 [facility] Comment on above: Order Comment: Speci men Type: BLOOD SPECIMENOrdering Facility: [facility] Address: [address] [place] [id number] Performed By: #### 2 777-1, , 65375-3 ####[facility]ORATORYCLIA [id number] [place] [address] [place] [facility] Phosphate SerPl-mCncon 09-19 Phosphate [Mass/Vol] 2.9 mg/dL Normal 2.7-4.8 [facility] Comment on above: Order Comment: Speci men Type: BLOOD SPECIMENOrdering Facility: [facility] Address: [address] [place] [address] Performed By: #### 2 777-1, , 42364-9 ####[facility]ORATORYCLIA [id number] [address] [place] Vancomycin random [Mass/Vol] on 09-20-2023 Vancomycin [Mass/Vol] 14.4 ug/mL Normal 10.0-20.0 [facility] Comment on above: Order Comment: Speci men Type: BLOOD SPECIMENOrdering Facility: [facility] Address: [address] [place] [address] Result Comment: Refe rence ranges and high/low indicator flags are provided as general guidelines only. The treating physician must determine appropriate target levels/dosing based on the specific clinical situation. Performed By: #### 4 091-5 ####[facility]ORATORYCLIA [id number] [address] [place] XR CHEST 1V FRONTALon 2023 XR CHEST 1V FRONTAL Normal [facility] ALLIED HEALTHon 09-19-2023 ALLIED HEALTH Normal [facility] ANGIOTEN CON ENZ, CSFon 08-30 ANGIOTENSIN CONVERTING ENZYME, CSF <0.4 Normal 0.0-2.5 [facility] Comment on above: Order Comment: Speci men Type: CEREBROSPINAL FLUID SPECIMENOrdering Facility: [facility] Address: [address] [place] [address] Result Comment: This test was developed and its performance characteristicsdetermined by [employer]. It has not been cleared orapproved by the [place] Food and Drug Administration. This test wasperformed in a CLIA certified laboratory and is intended forclinical purposes.Performed By: [facility] [id number] [place], [place] [address]Icoqiwbfim Director: Jay Gary MD, PhDCLIA Number: [id number] Performed By: #### C DELGADO ####[facility] [id number] [place] [address] AUTOIMMUNE ENCEPHALOPATHY EV ALUATION, CSFon 09-19-2023 AMPA-RECEPTOR AB CBA, CSF Negative Normal Negative [facility] Comment on above: Order Comment: Key albrecht Type: CEREBROSPINAL FLUID SPECIMENOrdering Facility: [facility] Address: [address] [place] [address] Result Comment: ---- ADDITIONAL INFORMATION This test was developed and its performance characteristicsdetermined by [facility] in a manner consistent with CLIArequirements. This test has not been cleared or approved bythe U.S. Food and Drug Administration. Performed By: #### E NCCSF ####[facility] REFERENCE LABCLIA [id number] [place] [address] AMPHIPHYSIN AB, CSF Negative Normal Negative [facility] Comment on above: Order Comment: Key albrecht Type: CEREBROSPINAL FLUID SPECIMENOrdering Facility: [facility] Address: [address] [place] [address] Result Comment: ---- ADDITIONAL INFORMATION This test was developed and its performance characteristicsdetermined by [facility] in a manner consistent with CLIArequirements. This test has not been cleared or approved bythe U.S. Food and Drug Administration. Performed By: #### E NCCSF ####[facility] REFERENCE LABCLIA [id number] [place] [address] ANTI-GLIAL NUCLEAR AB TYPE 1, CSF Negative Normal Negative [facility] Comment on above: Order Comment: Key [facility] Type: CEREBROSPINAL FLUID SPECIMENOrdering Facility: [facility] Address: [address] [place] [address] Result Comment: ---- ADDITIONAL INFORMATION This test was developed and its performance characteristicsdetermined by [facility] in a manner consistent with CLIArequirements. This test has not been cleared or approved bythe U.S. Food and Drug Administration. Performed By: #### E NCCSF ####[facility] REFERENCE LABCLIA [id number] [place] [address] ANTI-NEURONAL AB TYPE 1, CSF Negative Normal Negative [facility] Comment on above: Order Comment: Key albrecht Type: CEREBROSPINAL FLUID SPECIMENOrdering Facility: [facility] Address: [address] [place] [address] Result Comment: ---- ADDITIONAL INFORMATION This test was developed and its performance characteristicsdetermined by [facility] in a manner consistent with CLIArequirements. This test has not been cleared or approved bythe .S. Food and Drug Administration. Performed By: #### E NCCSF ####[facility] REFERENCE LABCLIA [id number] [place] [address] ANTI-NEURONAL AB TYPE 2, CSF Negative Normal Negative [facility] Comment on above: Order Comment: Key ambrocio Type: CEREBROSPINAL FLUID SPECIMENOrdering Facility: [facility] Address: [address] [place] [address] Result Comment: ---- ADDITIONAL INFORMATION This test was developed and its performance characteristicsdetermined by [facility] in a manner consistent with CLIArequirements. This test has not been cleared or approved bythe U.S. Food and Drug Administration. Performed By: #### E NCCSF ####[facility] REFERENCE LABCLIA [id number] [place] [address] ANTI-NEURONAL AB TYPE 3, CSF Negative Normal Negative [facility] Comment on above: Order Comment: Key albrecht Type: CEREBROSPINAL FLUID SPECIMENOrdering Facility: [facility] Address: [address] [place] [address] Result Comment: ---- ADDITIONAL INFORMATION This test was developed and its performance characteristicsdetermined by [facility] in a manner consistent with CLIArequirements. This test has not been cleared or approved bythe .S. Food and Drug Administration. Performed By: #### E NCCSF ####[facility] REFERENCE LABCLIA [id number] [place] [address] CASPR2 IGG, CSF Negative Normal Negative [facility] Comment on above: Order Comment: Key albrecht Type: CEREBROSPINAL FLUID SPECIMENOrdering Facility: [facility] Address: [address] [place] [address] Result Comment: ---- ADDITIONAL INFORMATION This test was developed and its performance characteristicsdetermined by [facility] in a manner consistent with CLIArequirements. This test has not been cleared or approved bythe U.S. Food and Drug Administration. Performed By: #### E NCCSF ####[facility] REFERENCE LABCLIA [id number] [place] [address] CRMP-5 IGG, CSF Negative Normal Negative [facility] Comment on above: Order Comment: Key [facility] Type: CEREBROSPINAL FLUID SPECIMENOrdering Facility: [facility] Address: [address] [place] [address] Result Comment: ---- ADDITIONAL INFORMATION This test was developed and its performance characteristicsdetermined by [facility] in a manner consistent with CLIArequirements. This test has not been cleared or approved bythe U.S. Food and Drug Administration. Performed By: #### E NCCSF ####[facility] REFERENCE LABCLIA [id number] [place] [address] DPPX AB IFA, CSF Negative Normal Negative [facility] Comment on above: Order Comment: Key [facility] Type: CEREBROSPINAL FLUID SPECIMENOrdering Facility: [facility] Address: [address] [place] [address] Result Comment: ---- ADDITIONAL INFORMATION This test was developed and its performance characteristicsdetermined by [facility] in a manner consistent with CLIArequirements. This test has not been cleared or approved bythe U.S. Food and Drug Administration. Performed By: #### E NCCSF ####[facility] REFERENCE LABCLIA [id number] [place] [address] ENCEPHALOPATHY INTERPRETATION, CSF SEE NOTE Normal [facility] Comment on above: Order Comment: Key [facility] Type: CEREBROSPINAL FLUID SPECIMENOrdering Facility: [facility] Address: [address] [place] [address] Result Comment: No i nformative autoantibodies were detected in thisevaluation. However, a negative result does not excludeautoimmune encephalopathy, idiopathic or paraneoplastic.Sensitivity and specificity of antibody testing areenhanced by testing both serum and CSF. Performed By: #### E NCCSF ####[facility] REFERENCE LABCLIA [id number] [place] [address] CAITLYN-B-R AB CBA, CSF Negative Normal Negative [facility] Comment on above: Order Comment: [facility] Type: CEREBROSPINAL FLUID SPECIMENOrdering Facility: [facility] Address: [address] [place] [address] Result Comment: ---- ADDITIONAL INFORMATION This test was developed and its performance characteristicsdetermined by [facility] in a manner consistent with CLIArequirements. This test has not been cleared or approved bythe U.S. Food and Drug Administration. Performed By: #### E NCCSF ####[facility] REFERENCE LABCLIA [id number] [place] [address] GAD65 ANTIBODY, CSF 0.00 nmol/L Normal <= 0.02 [facility] Comment on above: Order Comment: Key albrecht Type: CEREBROSPINAL FLUID SPECIMENOrdering Facility: [facility] Address: [address] [place] [address] Result Comment: ---- ADDITIONAL INFORMATION This test was developed and its performance characteristicsdetermined by [facility] in a manner consistent with CLIArequirements. This test has not been cleared or approved bythe .[place]. Food and Drug Administration. Performed By: #### E NCCSF ####[facility] REFERENCE LABCLIA [id number] [place] [address] GFAP IFA, CSF Negative Normal Negative [facility] Comment on above: Order Comment: Key albrecht Type: CEREBROSPINAL FLUID SPECIMENOrdering Facility: [facility] Address: [address] [place] [address] Result Comment: ---- ADDITIONAL INFORMATION This test was developed and its performance characteristicsdetermined by [facility] in a manner consistent with CLIArequirements. This test has not been cleared or approved bythe U.S. Food and Drug Administration. Performed By: #### E NCCSF ####[facility] REFERENCE LABCLIA [id number] [place] [address] IFA NOTES - ENCCSF None. Normal [facility] Comment on above: Order Comment: Key [facility] Type: CEREBROSPINAL FLUID SPECIMENOrdering Facility: [facility] Address: [address] [place] [address] Performed By: #### E NCCSF ####[facility] REFERENCE LABCLIA [id number] [place] [address] IGLON5 IFA, CSF Negative Normal Negative [facility] Comment on above: Order Comment: Key albrecht Type: CEREBROSPINAL FLUID SPECIMENOrdering Facility: [facility] Address: [address] [place] [address] Result Comment: ---- ADDITIONAL INFORMATION This test was developed and its performance characteristicsdetermined by [facility] in a manner consistent with CLIArequirements. This test has not been cleared or approved bythe .[place]. Food and Drug Administration. Performed By: #### E NCCSF ####[facility] REFERENCE LABCLIA [id number] [place] [address] LGI1 IGG, CSF Negative Normal Negative [facility] Comment on above: Order Comment: Key albrecht Type: CEREBROSPINAL FLUID SPECIMENOrdering Facility: [facility] Address: [address] [place] [address] Result Comment: ---- ADDITIONAL INFORMATION This test was developed and its performance characteristicsdetermined by [facility] in a manner consistent with CLIArequirements. This test has not been cleared or approved bythe U.S. Food and Drug Administration. Performed By: #### E NCCSF ####[facility] REFERENCE LABCLIA [id number] [place] [address] MGLUR1 AB IFA, CSF Negative Normal Negative [facility] Comment on above: Order Comment: Key [facility] Type: CEREBROSPINAL FLUID SPECIMENOrdering Facility: [facility] Address: [address] [place] [address] Result Comment: ---- ADDITIONAL INFORMATION This test was developed and its performance characteristicsdetermined by [facility] in a manner consistent with CLIArequirements. This test has not been cleared or approved bythe U.S. Food and Drug Administration. Performed By: #### E NCCSF ####[facility] REFERENCE LABCLIA [id number] [place] [address] NEUROCHONDRIN IFA, CSF Negative Normal Negative [facility] Comment on above: Order Comment: Key albrecht Type: CEREBROSPINAL FLUID SPECIMENOrdering Facility: [facility] Address: [address] [place] [address] Result Comment: ---- ADDITIONAL INFORMATION This test was developed and its performance characteristicsdetermined by [facility] in a manner consistent with CLIArequirements. This test has not been cleared or approved bythe U.S. Food and Drug Administration. Performed By: #### E NCCSF ####[facility] REFERENCE LABCLIA [id number] [place] [address] NIF IFA, CSF Negative Normal Negative [facility] Comment on above: Order Comment: Key albrecht Type: CEREBROSPINAL FLUID SPECIMENOrdering Facility: [facility] Address: [address] [place] [address] Result Comment: ---- ADDITIONAL INFORMATION This test was developed and its performance characteristicsdetermined by [facility] in a manner consistent with CLIArequirements. This test has not been cleared or approved bythe U.S. Food and Drug Administration. Performed By: #### E NCCSF ####[facility] REFERENCE LABCLIA [id number] [place] [address] NMDA-RECEPTOR AB CBA, CSF Negative Normal Negative [facility] Comment on above: Order Comment: Key albrecht Type: CEREBROSPINAL FLUID SPECIMENOrdering Facility: [facility] Address: [address] [place] [address] Result Comment: ---- ADDITIONAL INFORMATION This test was developed and its performance characteristicsdetermined by [facility] in a manner consistent with CLIArequirements. This test has not been cleared or approved bythe U.S. Food and Drug Administration. Performed By: #### E NCCSF ####[facility] REFER[facility] LABCLIA [id number] [place] [address] PURKINJE CELL CYTO AB TYPE 1, CSF Negative Normal Negative [facility] Comment on above: Order Comment: Key albrecht Type: CEREBROSPINAL FLUID SPECIMENOrdering Facility: [facility] Address: [address] [place] [address] Result Comment: ---- ADDITIONAL INFORMATION This test was developed and its performance characteristicsdetermined by [facility] in a manner consistent with CLIArequirements. This test has not been cleared or approved bythe .. Food and Drug Administration. Performed By: #### E NCCSF ####[facility] REFERENCE LABCLIA [id number] [place] [address] PURKINJE CELL CYTO AB TYPE 2, CSF Negative Normal Negative [facility] Comment on above: Order Comment: Key albrecht Type: CEREBROSPINAL FLUID SPECIMENOrdering Facility: [facility] Address: [address] [place] [address] Result Comment: ---- ADDITIONAL INFORMATION This test was developed and its performance characteristicsdetermined by [facility] in a manner consistent with CLIArequirements. This test has not been cleared or approved bythe .[place]. Food and Drug Administration. Performed By: #### E NCCSF ####[facility] REFER[facility] LABCLIA [id number] [place] [id number] PURKINJE CELL CYTO AB TYPE TR, CSF Negative Normal Negative [facility] Comment on above: Order Comment: Key albrecht Type: CEREBROSPINAL FLUID SPECIMENOrdering Facility: [facility] Address: [address] [place] [address] Result Comment: ---- ADDITIONAL INFORMATION This test was developed and its performance characteristicsdetermined by [facility] in a manner consistent with CLIArequirements. This test has not been cleared or approved bythe U.S. Food and Drug Administration. Performed By: #### E NCCSF ####[facility] REFER[facility] LABCLIA [id number] [place] [address] SEPTIN-7 IFA, CSF Negative Normal Negative [facility] Comment on above: Order Comment: Speci men Type: CEREBROSPINAL FLUID SPECIMENOrdering Facility: [facility] Address: [address] [place] [address] Result Comment: ---- ADDITIONAL INFORMATION This test was developed and its performance characteristicsdetermined by [facility] in a manner consistent with CLIArequirements. This test has not been cleared or approved bythe U.S. Food and Drug Administration.Test Performed by:[address] Director: Oleksandr Munguia M.D. Ph.D.; CLIA# [id number] Performed By: #### E NCCSF ####[facility] RE[facility] LABCLIA [id number] [place] [address] BRIEF OP NOTon 09-19-2023 BRIEF OP NOT Normal [facility] Bacteria CSF Culton 09-19-19 24 Bacteria identified Cx Nom (CSF) CULTURE, CSF: No growth 5 days GRAM STAIN: No organisms seen Rare Polymorphonuclear leukocytes Rare Mononuclear cells Gram stain performed on cytospun specimen. Normal [facility] Comment on above: Performed By: #### 6 06-4 ####[facility] LABORATORYCLIA [id number] [place] [address] [place] CASE MGT INIT ASSESon 2023 CASE MGT INIT ASSES Normal [facility] CBC W Auto Differential pane l (Bld)on 09-19-2023 Basophils (Bld) [#/Vol] 10*3/uL Normal <0.11 [facility] Comment on above: Order Comment: Speci men Type: BLOOD SPECIMENOrdering Facility: [facility] Address: [address] [place] [address] Performed By: #### 5 7021-8 ####[facility]ATORYCLIA [id number] [address] [place] Basophils/100 WBC (Bld) 0.1 % Normal [facility] Comment on above: Order Comment: Speci men Type: BLOOD SPECIMENOrdering Facility: [facility] Address: [address] [place] [address] Performed By: #### 5 7021-8 ####[facility] LABORATORYCLIA [id number] [address] Differential cell count method Nom (Bld) Auto Normal [facility] Comment on above: Order Comment: Speci men Type: BLOOD SPECIMENOrdering Facility: [facility] Address: [address] [place] [address] Performed By: #### 5 7021-8 ####[facility] LABORATORYCLIA [id number] [address] [place] Eosinophils (Bld) [#/Vol] 0.09 10*3/uL Normal <0.46 [facility] Comment on above: Order Comment: Speci men Type: BLOOD SPECIMENOrdering Facility: [facility] Address: [address] [place] [address] Performed By: #### 5 7021-8 ####[facility]ORATORYCLIA [id number] [address] STATES [facility] Eosinophils/100 WBC (Bld) 1.0 % Normal [facility] Comment on above: Order Comment: Speci men Type: BLOOD SPECIMENOrdering Facility: [facility] Address: [address] [place] [address] Performed By: #### 5 7021-8 ####[facility]ORATORYCLIA [id number] [address] [place] Erythrocyte distribution width (RBC) [Ratio] 14.0 % Normal 11.5-15.0 [facility] Comment on above: Order Comment: Speci men Type: BLOOD SPECIMENOrdering Facility: [facility] Address: [address] [place] [address] Performed By: #### 5 7021-8 ####[facility] LABORATORYCLIA [id number] [address] [place] Hematocrit (Bld) [Volume fraction] 32.3 % Low 36.0-46.0 [facility] Comment on above: Order Comment: Speci men Type: BLOOD SPECIMENOrdering Facility: [facility] Address: [address] [place] [address] Performed By: #### 5 7021-8 ####[facility] LABORATORYCLIA [id number] [address] [place] Hemoglobin (Bld) [Mass/Vol] 10.7 g/dL Low 11.5-15.5 [facility] Comment on above: Order Comment: Speci men Type: BLOOD SPECIMENOrdering Facility: [facility] Address: [address] [place] [address] Performed By: #### 5 7021-8 ####[facility]ATORYCLIA [id number] [address] [place] Immature granulocytes (Bld) [#/Vol] 0.03 10*3/uL Normal <0.10 [facility] Comment on above: Order Comment: Speci men Type: BLOOD SPECIMENOrdering Facility: [facility] Address: [address] [place] [address] Performed By: #### 5 7021-8 ####[facility]ORATORYCLIA [id number] [address] [place] Immature granulocytes/100 WBC (Bld) 0.3 % Normal [facility] Comment on above: Order Comment: Speci men Type: BLOOD SPECIMENOrdering Facility: [facility] Address: [address] [place] [address] Performed By: #### 5 7021-8 ####[facility]ATORYCLIA [id number] [address] [place] Lymphocytes (Bld) [#/Vol] 2.55 10*3/uL Normal 1.00-4.00 [facility] Comment on above: Order Comment: Speci men Type: BLOOD SPECIMENOrdering Facility: [facility] Address: [address] [place] [address] Performed By: #### 5 7021-8 ####[facility]ORATORYCLIA [id number] [address] [place] Lymphocytes/100 WBC (Bld) 27.4 % Normal [facility] Comment on above: Order Comment: Speci men Type: BLOOD SPECIMENOrdering Facility: [facility] Address: [address] [place] [address] Performed By: #### 5 7021-8 ####[facility]ORATORYCLIA [id number] [address] [place] MCH (RBC) [Entitic mass] 26.2 pg Normal 26.0-34.0 [facility] Comment on above: Order Comment: Speci men Type: BLOOD SPECIMENOrdering Facility: [facility] Address: [address] [place] [address] Performed By: #### 5 7021-8 ####[facility]ATORYCLIA [id number] [address] [place] MCHC (RBC) [Mass/Vol] 33.1 g/dL Normal 30.5-36.0 [facility] Comment on above: Order Comment: Speci men Type: BLOOD SPECIMENOrdering Facility: [facility] Address: [address] [place] [address] Performed By: #### 5 7021-8 ####[facility]ATORYCLIA [id number] [address] [place] MCV (RBC) [Entitic vol] 79.2 fL Low 80.0-100.0 [facility] Comment on above: Order Comment: Speci men Type: BLOOD SPECIMENOrdering Facility: [facility] Address: [address] [place] [address] Performed By: #### 5 7021-8 ####[facility]ATORYCLIA [id number] [place] [address] [place] Monocytes (Bld) [#/Vol] 0.45 10*3/uL Normal <0.87 [facility] Comment on above: Order Comment: Speci men Type: BLOOD SPECIMENOrdering Facility: [facility] Address: [address] [place] [address] Performed By: #### 5 7021-8 ####[facility]ORYCLIA [id number] [address] [place] Monocytes/100 WBC (Bld) 4.8 % Normal [facility] Comment on above: Order Comment: Speci men Type: BLOOD SPECIMENOrdering Facility: [facility] Address: [address] [place] [address] Performed By: #### 5 7021-8 ####[facility]ORYCLIA [id number] [address] [place] Neutrophils (Bld) [#/Vol] 6.17 10*3/uL Normal 1.45-7.50 [facility] Comment on above: Order Comment: Speci men Type: BLOOD SPECIMENOrdering Facility: [facility] Address: [address] [place] [address] Performed By: #### 5 7021-8 ####[facility]ATORYCLIA [id number] [address] [place] Neutrophils/100 WBC (Bld) 66.4 % Normal [facility] Comment on above: Order Comment: Speci men Type: BLOOD SPECIMENOrdering Facility: [facility] Address: [address] [place] [address] Performed By: #### 5 7021-8 ####[facility]ATORYCLIA [id number] [place] [address] [place] Nucleated RBC (Bld) [#/Vol] 10*3/uL Normal <0.01 [facility] Comment on above: Order Comment: Speci men Type: BLOOD SPECIMENOrdering Facility: [facility] Address: [address] [place] [address] Performed By: #### 5 7021-8 ####[facility]ATORYCLIA [id number] [address] [place] Nucleated RBC/100 WBC (Bld) [Ratio] 0.0 /100 WBC Normal [facility] Comment on above: Order Comment: Speci men Type: BLOOD SPECIMENOrdering Facility: [facility] Address: [address] [place] [address] Performed By: #### 5 7021-8 ####[facility]ATORYCLIA [id number] [address] [place] Platelet mean volume (Bld) [Entitic vol] 9.3 fL Normal 9.0-12.7 [facility] Comment on above: Order Comment: Speci men Type: BLOOD SPECIMENOrdering Facility: [facility] Address: [address] [place] [address] Performed By: #### 5 7021-8 ####[facility]ATORYCLIA [id number] [address] [place] Platelets (Bld) [#/Vol] 183 10*3/uL Normal 150-400 [facility] Comment on above: Order Comment: Speci men Type: BLOOD SPECIMENOrdering Facility: [facility] Address: [address] [place] [address] Performed By: #### 5 7021-8 ####[facility]ATORYCLIA [id number] [address] [place] RBC (Bld) [#/Vol] 4.08 10*6/uL Normal 3.90-5.20 [facility] Comment on above: Order Comment: Speci men Type: BLOOD SPECIMENOrdering Facility: [facility] Address: [address] [place] [address] Performed By: #### 5 7021-8 ####[facility]ATORYCLIA [id number] [address] [place] WBC (Bld) [#/Vol] 9.30 10*3/uL Normal 3.70-11.00 [facility] Comment on above: Order Comment: Speci men Type: BLOOD SPECIMENOrdering Facility: [facility] Address: [address] [place] [address] Performed By: #### 5 7021-8 ####[facility]ORATORYCLIA [id number] [address] STATES OF [facility] CSF MANUAL DIFFon 09-19-2023 DIF TTL, CSF 100 cells counted Normal [facility] Comment on above: Order Comment: Speci men Type: CEREBROSPINAL FLUID SPECIMENOrdering Facility: [facility] Address: [address] [place] [address] Performed By: #### L [id number], 74264-9 ####[facility]ATORYCLIA [id number] [place] [address] [place] LYMPH%, CSF 49 % Low 50-90 [facility] Comment on above: Order Comment: Speci men Type: CEREBROSPINAL FLUID SPECIMENOrdering Facility: [facility] Address: [address] [place] [address] Performed By: #### L [id number], 12430-6 ####[facility]ATORYCLIA [id number] [place] [address] [place] MONO%, CSF 5 % Low 10-50 [facility] Comment on above: Order Comment: Speci men Type: CEREBROSPINAL FLUID SPECIMENOrdering Facility: [facility] Address: [address] [place] [address] Performed By: #### L [id number], 73827-8 ####[facility]ATORYCLIA [id number] [place] [address] [place] NEUT%, CSF 46 % High 0-3 [facility] Comment on above: Order Comment: Speci men Type: CEREBROSPINAL FLUID SPECIMENOrdering Facility: [facility] Address: [address] [place] [address] Performed By: #### L [id number], 18324-5 ####[facility]ATORYCLIA [id number] [address] Cell count panel (CSF)on Clarity (CSF) Clear Normal Clear [facility] Comment on above: Order Comment: Speci men Type: CEREBROSPINAL FLUID SPECIMENOrdering Facility: [facility] Address: [address] [place] [address] Performed By: #### L [id number], 94081-9 ####[facility]ATORYCLIA [id number] [address] Clarity (Unsp spec) Not Indicated Normal Clear [facility] Comment on above: Order Comment: Speci men Type: CEREBROSPINAL FLUID SPECIMENOrdering Facility: [facility] Address: [address] [place] [address] Performed By: #### L [id number], 09480-0 ####[facility]ATORYCLIA [id number] [address] Color (CSF) Colorless Normal Colorless [facility] Comment on above: Order Comment: Speci men Type: CEREBROSPINAL FLUID SPECIMENOrdering Facility: [facility] Address: [address] [place] [address] Performed By: #### L [id number], 55737-0 ####[facility]ATORYCLIA [id number] [address] Color (Spun CSF) Not Indicated Normal Colorless [facility] Comment on above: Order Comment: Speci men Type: CEREBROSPINAL FLUID SPECIMENOrdering Facility: [facility] Address: [address] [place] [address] Performed By: #### L [id number], 10844-7 ####[facility]ATORYCLIA [id number] [address] CSF TUBE NUMBER Tube 4 Normal [facility] Comment on above: Order Comment: Speci men Type: CEREBROSPINAL FLUID SPECIMENOrdering Facility: [facility] Address: [address] [place] [address] Performed By: #### L [id number], 29335-4 ####[facility]ATORYCLIA [id number] [address] [place] RBC Manual cnt (CSF) [#/Vol] 671 cells/uL High 0-5 [facility] Comment on above: Order Comment: Speci men Type: CEREBROSPINAL FLUID SPECIMENOrdering Facility: [facility] Address: [address] [place] [address] Performed By: #### L [id number], 12158-5 ####[facility]ATORYCLIA [id number] [address] [place] [facility] WBC Manual cnt (CSF) [#/Vol] 3 cells/uL Normal 0-5 [facility] Comment on above: Order Comment: Speci men Type: CEREBROSPINAL FLUID SPECIMENOrdering Facility: [facility] Address: [address] [place] [address] Performed By: #### L [id number], 40628-4 ####[facility]ATORYCLIA [id number] [address] OF [facility] Comprehensive metabolic 2000 panelon 09-19-2023 Albumin [Mass/Vol] 3.0 g/dL Low 3.9-4.9 [facility] Comment on above: Order Comment: Speci men Type: BLOOD SPECIMENOrdering Facility: [facility] Address: [address] [place] [address] Performed By: #### 2 4323-8, 2776-07, ####[facility]ATORYCLIA [id number] [address] [place] ALP [Catalytic activity/Vol] 92 U/L Normal 34-123 [facility] Comment on above: Order Comment: Speci men Type: BLOOD SPECIMENOrdering Facility: [facility] Address: [address] [place] [address] Performed By: #### 2 4323-8, 1, ####[facility]ATORYCLIA [id number] [address] [place] ALT With P-5'-P [Catalytic activity/Vol] 9 U/L Normal 7-38 [facility] Comment on above: Order Comment: Speci men Type: BLOOD SPECIMENOrdering Facility: [facility] Address: [address] [place] [address] Performed By: #### 2 4323-8, 2776-07, ####[facility]ATORYCLIA [id number] [address] STATES OF [facility] Anion gap [Moles/Vol] 8 mmol/L Low 9-18 [facility] Comment on above: Order Comment: Speci men Type: BLOOD SPECIMENOrdering Facility: [facility] Address: [address] [place] [address] Performed By: #### 2 4323-8, 2776-07, ####[facility]ATORYCLIA [id number] [address] [place] AST With P-5'-P [Catalytic activity/Vol] 10 U/L Low 13-35 [facility] Comment on above: Order Comment: Speci men Type: BLOOD SPECIMENOrdering Facility: [facility] Address: [address] [place] [address] Performed By: #### 2 4323-8, 2776-07, ####[facility]ATORYCLIA [id number] [address] [place] Bilirubin [Mass/Vol] 0.2 mg/dL Normal 0.2-1.3 [facility] Comment on above: Order Comment: Speci men Type: BLOOD SPECIMENOrdering Facility: [facility] Address: [address] [place] [address] Performed By: #### 2 4323-8, 2776-07, ####[facility]ATORYCLIA [id number] [place] [address] [place] Calcium [Mass/Vol] 8.7 mg/dL Normal 8.5-10.2 [facility] Comment on above: Order Comment: Speci men Type: BLOOD SPECIMENOrdering Facility: [facility] Address: [address] [place] [address] Performed By: #### 2 4323-8, 2777, ####[facility]ATORYCLIA [id number] [place] [address] [place] Chloride [Moles/Vol] 105 mmol/L Normal 97-105 [facility] Comment on above: Order Comment: Speci men Type: BLOOD SPECIMENOrdering Facility: [facility] Address: [address] [place] [address] Performed By: #### 2 4323-8, 27712-29, ####[facility]ORATORYCLIA [id number] [place] [id number] [place] CO2 [Moles/Vol] 25 mmol/L Normal 22-30 [facility] Comment on above: Order Comment: Speci men Type: BLOOD SPECIMENOrdering Facility: [facility] Address: [address] [place] [address] Performed By: #### 2 4323-8, 27712-29, ####[facility]ATORYCLIA [id number] [address] OF [facility] Creatinine [Mass/Vol] 0.87 mg/dL Normal 0.58-0.96 [facility] Comment on above: Order Comment: Speci men Type: BLOOD SPECIMENOrdering Facility: [facility] Address: [address] [place] [address] Performed By: #### 2 4323-8, 27712-29, ####[facility]ATORYCLIA [id number] [address] Creatinine and Glomerular filtration rate.predicted panel (S/P/Bld) 74 mL/min/1.73m??? Normal >=60 [facility] Comment on above: Order Comment: Speci men Type: BLOOD SPECIMENOrdering Facility: [facility] Address: [address] [place] [address] Result Comment: Swetha mated Glomerular Filtration Rate [...] GFR. Performed By: #### 2 4323-8, 2776-07, ####[facility]ORATORYCLIA [id number] [place] [address] [place] Glucose [Mass/Vol] 178 mg/dL High 74-99 [facility] Comment on above: Order Comment: Key albrecht Type: BLOOD SPECIMENOrdering Facility: [facility] Address: [address] [place], [place] [address] Result Comment: The [place] [employer] (ADA) provides guidance for cutoff [...] Standards of Medical Care in Diabetes 2016, [place] [employer]. Diabetes Care. 2016.39(Suppl 1). Performed By: #### 2 4323-8, 2776-07, ####[facility]ATORYCLIA [id number] [place] [id number] [place] Potassium [Moles/Vol] 3.5 mmol/L Low 3.7-5.1 [facility] Comment on above: Order Comment: Key albrecht Type: BLOOD SPECIMENOrdering Facility: [facility] Address: [address] [place] [address] Performed By: #### 2 4323-8, 2776-07, ####[facility]ATORYCLIA [id number] [place] [address] [place] Protein [Mass/Vol] 6.0 g/dL Low 6.3-8.0 [facility] Comment on above: Order Comment: Speci men Type: BLOOD SPECIMENOrdering Facility: [facility] Address: [address] [place] [address] Performed By: #### 2 4323-8, 2776-07, ####[facility]ATORYCLIA [id number] [place] [address] [place] Sodium [Moles/Vol] 138 mmol/L Normal 136-144 [facility] Comment on above: Order Comment: Speci men Type: BLOOD SPECIMENOrdering Facility: [facility] Address: [address] [place] [address] Performed By: #### 2 4323-8, 2776-07, ####[facility]ATORYCLIA [id number] [address] [place] Urea nitrogen [Mass/Vol] 7 mg/dL Normal 7-21 [facility] Comment on above: Order Comment: Speci men Type: BLOOD SPECIMENOrdering Facility: [facility] Address: [address] [place] [address] Performed By: #### 2 4323-8, 2776-07, ####[facility]ATORYCLIA [id number] [place] [address] [place] Glucose CSF-mCncon 4 Glucose (CSF) [Mass/Vol] 107 mg/dL High 40-70 [facility] Comment on above: Order Comment: Speci men Type: CEREBROSPINAL FLUID SPECIMENOrdering Facility: [facility] Address: [address] [place] [address] Result Comment: Lumb ar CSF glucose values of healthy patients are approximately 60% of the plasma values and must always be compared with a concurrently measured plasma value for adequate clinical interpretation.References: 1. Glucose HK (GLUC3) [package insert V 12.0 Prydeinig]. [employer], [place], [place]. October 2015. 2. Xena Wallace, Kiki H. (2015). Chapter 7: Glucose and Lactate. FMurtaza Suárez al.(eds.), Cerebrospinal Fluid in Clinical Neurology. [place]: [employer]. Performed By: #### 2 342-4, 2880-3 ####[facility]ATORYCLIA [id number] [place], [place] [address] [place] [address] [place] HERPES SIMPLEX CSFon 024 HERPES SIMPLEX CSF HSV-1: Negative for Herpes Simplex Virus Type 1 by PCR HSV-2: Negative for Herpes Simplex Virus Type 2 by PCR Normal [facility] Comment on above: Performed By: #### H [facility] ####[facility] LABCLIA [id number] [facility] [place] [address] [place] Magnesium SerPl-[facility] Magnesium [Mass/Vol] 2.0 mg/dL Normal 1.7-2.3 [facility] Comment on above: Order Comment: Speci men Type: BLOOD SPECIMENOrdering Facility: [facility] Address: [address] [place] [address] Performed By: #### 2 4323-8, 27712-29, ####[facility]ATORYCLIA [id number] [address] [place] NUTRITIONon 09-19-2023 NUTRITION Normal [facility] Phosphate SerPl-ncon 09-18 Phosphate [Mass/Vol] 3.0 mg/dL Normal 2.7-4.8 [facility] Comment on above: Order Comment: Speci men Type: BLOOD SPECIMENOrdering Facility: [facility] Address: [address] [place] [address] Performed By: #### 2 4323-8, 2777-, ####[facility]ATORYCLIA [id number] [place] [address] [place] Prot CSF-mCncon 09-19-2023 Protein (CSF) [Mass/Vol] 33 mg/dL Normal 15-45 [facility] Comment on above: Order Comment: Speci men Type: CEREBROSPINAL FLUID SPECIMENOrdering Facility: [facility] Address: [address] [place] [address] Performed By: #### 2 342-4, 2880-3 ####[facility]ORATORYCLIA [id number] [place] [address] [place] ROBINSONTEKAYLYN CSFon Albumin (CSF) [Mass/Vol] 15.3 mg/dL Normal 10.0-30.0 [facility] Comment on above: Order Comment: Speci men Type: CEREBROSPINAL FLUID SPECIMENOrdering Facility: [facility] Address: [address] [place] [address] Performed By: #### T OURTCSF ####[facility] LABCLIA [id number] [place] [address] [place] Albumin [Mass/Vol] 3300 mg/dL Low 3220-2860 [facility] Comment on above: Order Comment: Speci men Type: CEREBROSPINAL FLUID SPECIMENOrdering Facility: [facility] Address: [address] [place] [address] Performed By: #### T OURTCSF ####[facility] LABCLIA [id number] [place] [address] [place] IgG (CSF) [Mass/Vol] 3.7 mg/dL High 1.0-3.0 [facility] Comment on above: Order Comment: Speci men Type: CEREBROSPINAL FLUID SPECIMENOrdering Facility: [facility] Address: [address] [place] [address] Performed By: #### T OURTCSF ####[facility] LABCLIA [id number] [place] [address] [place] IgG [Mass/Vol] 1039 mg/dL Normal 700-1600 [facility] Comment on above: Order Comment: Speci men Type: CEREBROSPINAL FLUID SPECIMENOrdering Facility: [facility] Address: [address] [place] [address] Performed By: #### T OURTCSF ####[facility] LABCLIA [id number] [place] [address] [place] IgG clearance/Albumin clearance (S+CSF) [Ratio] 0.77 High 0.00-0.61 [facility] Comment on above: Order Comment: Speci men Type: CEREBROSPINAL FLUID SPECIMENOrdering Facility: [facility] Address: [address] [place] [address] Performed By: #### T OURTCSF ####[facility] LABCLIA [id number] [place] [address] [place] IgG synthesis rate Calc (S+CSF) [Mass/Time] 3.8 mg/day High 0.0-3.0 [facility] Comment on above: Order Comment: Speci men Type: CEREBROSPINAL FLUID SPECIMENOrdering Facility: [facility] Address: [address] [place] [address] Performed By: #### T OURTCSF ####[facility] LABCLIA [id number] [place] [address] [place] IgG/Albumin (CSF) [Mass ratio] 0.24 High 0.06-0.17 [facility] Comment on above: Order Comment: Speci men Type: CEREBROSPINAL FLUID SPECIMENOrdering Facility: [facility] Address: [address] [place] [address] Performed By: #### T OURTCSF ####[facility] LABCLIA [id number] [place] [address] [place] VDRL CSF-Titron 09-19-2023 Reagin Ab VDRL (CSF) [Titer] Non-Reactive Normal Nonreactive [facility] Comment on above: Order Comment: Speci men Type: CEREBROSPINAL FLUID SPECIMENOrdering Facility: [facility] Address: [address] [place] [address] Result Comment: CSF VDRL test is used an aid in diagnosis of neurosyphilis. CSF VDRL detects non-treponemal antibodies and has lower sensitivity than CSF treponemal tests such as FTA, therefore a negative result cannot reliably rule out neurosyphilis. Clinical correlation is required. Performed By: #### 3 1146-4 ####[facility] LABCLIA [id number] [facility]ITALChino [id number] [id number] [place] XR LUMBAR PUNCTURE DIAGNOSTI Con 09-19-2023 XR LUMBAR PUNCTURE DIAGNOSTIC Normal [facility] ALLIED HEALTHon 09-18-2023 ALLIED HEALTH Normal [facility] ARTERIAL BLOOD GASESon 09-17 Base deficit (BldA) [Moles/Vol] -1 mmol/L Normal -2-0 [facility] Comment on above: Order Comment: Speci men Type: ARTERIAL BLOOD SPECIMENOrdering Facility: [facility] Address: [address] [place] [address] Performed By: #### A LLBG ####[facility]ORATORYCLIA [id number] [address] [place] Body temperature 98.6 [degF] Normal [facility] Comment on above: Order Comment: Speci men Type: ARTERIAL BLOOD SPECIMENOrdering Facility: [facility] Address: [address] [place] [address] Performed By: #### A LLBG ####[facility] [id number] [address] [place] Calcium.ionized (BldV) [Mass/Vol] 1.15 mmol/L Normal 1.08-1.30 [facility] Comment on above: Order Comment: Speci men Type: ARTERIAL BLOOD SPECIMENOrdering Facility: [facility] Address: [address] [place] [address] Performed By: #### A LLBG ####[facility]ORATORYCLIA [id number] [address] [place] Calcium.ionized adjusted to pH 7.4 (BldA) [Moles/Vol] 1.17 mmol/L Normal 1.08-1.30 [facility] Comment on above: Order Comment: Speci men Type: ARTERIAL BLOOD SPECIMENOrdering Facility: [facility] Address: [address] [place] [address] Performed By: #### A LLBG ####[facility] LABORATORYCLIA [id number] [address] [place] Carboxyhemoglobin (BldA) [Mass fraction] 1.4 % Normal 0.0-2.0 [facility] Comment on above: Order Comment: Speci men Type: ARTERIAL BLOOD SPECIMENOrdering Facility: [facility] Address: [address] [place] [address] Result Comment: Carb oxyhemoglobin Reference Range for Smokers: 2.0-8.0% Performed By: #### A LLBG ####[facility] LABORATORYCLIA [id number] [address] [place] Chloride [Moles/Vol] 101 mmol/L Low 102-109 [facility] Comment on above: Order Comment: Speci men Type: ARTERIAL BLOOD SPECIMENOrdering Facility: [facility] Address: [address] [place] [address] Performed By: #### A LLBG ####[facility] LABORATORYCLIA [id number] [address] [place] CO2 (Bld) [Partial pressure] 36 mm Hg Normal 36-46 [facility] Comment on above: Order Comment: Speci men Type: ARTERIAL BLOOD SPECIMENOrdering Facility: [facility] Address: [address] [place] [address] Performed By: #### A LLBG ####[facility] LABORATORYCLIA [id number] [place] [address] [place] Glucose [Mass/Vol] 345 mg/dL High 60-105 [facility] Comment on above: Order Comment: Speci men Type: ARTERIAL BLOOD SPECIMENOrdering Facility: [facility] Address: [address] [place] [address] Performed By: #### A LLBG ####[facility]ORATORYCLIA [id number] [place] [address] [place] HCO3 (Bld) [Moles/Vol] 23 mmol/L Normal 22-26 [facility] Comment on above: Order Comment: Speci men Type: ARTERIAL BLOOD SPECIMENOrdering Facility: [facility] Address: [address] [place] [address] Performed By: #### A LLBG ####[facility]ORATORYCLIA [id number] [address] [place] [facility] Hematocrit (Bld) [Volume fraction] 37.1 % Normal 36.0-46.0 [facility] Comment on above: Order Comment: Speci men Type: ARTERIAL BLOOD SPECIMENOrdering Facility: [facility] Address: [address] [place] [address] Performed By: #### A LLBG ####[facility]ORATORYCLIA [id number] [address] [place] Hemoglobin (Bld) [Mass/Vol] 12.0 g/dL Normal 11.5-15.5 [facility] Comment on above: Order Comment: Speci men Type: ARTERIAL BLOOD SPECIMENOrdering Facility: [facility] Address: [address] [place] [address] Performed By: #### A LLBG ####[facility]ORATORYCLIA [id number] [address] Order Comment: Speci men Type: BLOOD SPECIMENOrdering Facility: [facility] Address: [address] [place] [address] Performed By: #### 5 7021-8 ####[facility]ATORYCLIA [id number] [address] [place] [facility] Lactate [Moles/Vol] 2.4 mmol/L High 0.5-2.2 [facility] Comment on above: Order Comment: Speci men Type: ARTERIAL BLOOD SPECIMENOrdering Facility: [facility] Address: [address] [place] [address] Performed By: #### A LLBG ####[facility]ATORYCLIA [id number] [address] Methemoglobin (Bld) [Mass fraction] 0.5 % Normal 0.0-1.5 [facility] Comment on above: Order Comment: Speci men Type: ARTERIAL BLOOD SPECIMENOrdering Facility: [facility] Address: [address] [place] [address] Performed By: #### A LLBG ####[facility]ATORYCLIA [id number] [address] [place] O2 THERAPY Ventilator Normal [facility] Comment on above: Order Comment: Speci men Type: ARTERIAL BLOOD SPECIMENOrdering Facility: [facility] Address: [address] [place] [address] Performed By: #### A LLBG ####[facility]ATORYCLIA [id number] [address] [place] Oxygen (Bld) [Partial pressure] 153 mm Hg High 85-95 [facility] Comment on above: Order Comment: Speci men Type: ARTERIAL BLOOD SPECIMENOrdering Facility: [facility] Address: [address] [place] [address] Performed By: #### A LLBG ####[facility]ATORYCLIA [id number] [address] [place] Oxyhemoglobin (BldA) [Mass fraction] 98 % Normal 95-98 [facility] Comment on above: Order Comment: Speci men Type: ARTERIAL BLOOD SPECIMENOrdering Facility: [facility] Address: [address] [place] [address] Performed By: #### A LLBG ####[facility]ATORYCLIA [id number] [address] [place] pH (Bld) 7.42 [pH] Normal 7.35-7.45 [facility] Comment on above: Order Comment: Speci men Type: ARTERIAL BLOOD SPECIMENOrdering Facility: [facility] Address: [address] [place] [address] Performed By: #### A LLBG ####[facility]ORATORYCLIA [id number] [address] [place] Potassium [Moles/Vol] 4.1 mmol/L Normal 3.5-5.0 [facility] Comment on above: Order Comment: Speci men Type: ARTERIAL BLOOD SPECIMENOrdering Facility: [facility] Address: [address] [place] [address] Performed By: #### A LLBG ####[facility]ATORYCLIA [id number] [address] [place] Sodium [Moles/Vol] 134 mmol/L Low 136-144 [facility] Comment on above: Order Comment: Speci men Type: ARTERIAL BLOOD SPECIMENOrdering Facility: [facility] Address: [address] [place] [address] Performed By: #### A LLBG ####[facility]ORATORYCLIA [id number] [address] AUTOIMMUNE ENCEPHALOPATHY EV ALUATION, SERUMon 09-18-2023 AMPA-R AB CBA, S Negative Normal Negative [facility] Comment on above: Order Comment: Speci ambrocio Type: BLOOD SPECIMENOrdering Facility: [facility] Address: [address] [place] [address] Result Comment: ---- ADDITIONAL INFORMATION This test was developed and its performance characteristicsdetermined by [facility] in a manner consistent with CLIArequirements. This test has not been cleared or approved bythe U.S. Food and Drug Administration. Performed By: #### E NCSER ####[facility] LABCLIA [id number] [place] [address] AMPHIPHYSIN AB Negative Normal Negative [facility] Comment on above: Order Comment: Rigobertoemir albrecht Type: BLOOD SPECIMENOrdering Facility: [facility] Address: [address] [place] [address] Result Comment: ---- ADDITIONAL INFORMATION This test was developed and its performance characteristicsdetermined by [facility] in a manner consistent with CLIArequirements. This test has not been cleared or approved bythe U.S. Food and Drug Administration. Performed By: #### E NCSER ####[facility] RE[facility] LABCLIA [id number] [place] [address] ANTI-GLIAL NUCLEAR AB, TYPE 1 Negative Normal Negative [facility] Comment on above: Order Comment: Key ambrocio Type: BLOOD SPECIMENOrdering Facility: [facility] Address: [address] [place] [address] Result Comment: ---- ADDITIONAL INFORMATION This test was developed and its performance characteristicsdetermined by [facility] in a manner consistent with CLIArequirements. This test has not been cleared or approved bythe U.S. Food and Drug Administration. Performed By: #### E NCSER ####[facility] REFER[facility] LABCLIA [id number] [place] [address] ANTI-NEURONAL NUC AB, TYPE 1 Negative Normal Negative [facility] Comment on above: Order Comment: Key ambrocio Type: BLOOD SPECIMENOrdering Facility: [facility] Address: [address] [place] [address] Result Comment: ---- ADDITIONAL INFORMATION This test was developed and its performance characteristicsdetermined by [facility] in a manner consistent with CLIArequirements. This test has not been cleared or approved bythe U.S. Food and Drug Administration. Performed By: #### E NCSER ####[facility] LABCLIA [id number] [place] [address] ANTI-NEURONAL NUC AB, TYPE 2 Negative Normal Negative [facility] Comment on above: Order Comment: Rigobertoemir [facility] Type: BLOOD SPECIMENOrdering Facility: [facility] Address: [address] [place] [address] Result Comment: ---- ADDITIONAL INFORMATION This test was developed and its performance characteristicsdetermined by [facility] in a manner consistent with CLIArequirements. This test has not been cleared or approved bythe U.S. Food and Drug Administration. Performed By: #### E NCSER ####[facility] RE[facility] LABCLIA [id number] [place] [address] ANTI-NEURONAL NUC AB, TYPE 3 Negative Normal Negative [facility] Comment on above: Order Comment: Key [facility] Type: BLOOD SPECIMENOrdering Facility: [facility] Address: [address] [place] [address] Result Comment: ---- ADDITIONAL INFORMATION This test was developed and its performance characteristicsdetermined by [facility] in a manner consistent with CLIArequirements. This test has not been cleared or approved bythe U.S. Food and Drug Administration. Performed By: #### E NCSER ####[facility] LABCLIA [id number] [place] [address] CASPR2-IGG CBA S Negative Normal Negative [facility] Comment on above: Order Comment: Key [facility] Type: BLOOD SPECIMENOrdering Facility: [facility] Address: [address] [place] [address] Result Comment: ---- ADDITIONAL INFORMATION This test was developed and its performance characteristicsdetermined by [facility] in a manner consistent with CLIArequirements. This test has not been cleared or approved bythe U.S. Food and Drug Administration. Performed By: #### E NCSER ####[facility] LABCLIA [id number] [place] [address] CRMP-5, IGG Negative Normal Negative [facility] Comment on above: Order Comment: Key [facility] Type: BLOOD SPECIMENOrdering Facility: [facility] Address: [address] [place] [address] Result Comment: ---- ADDITIONAL INFORMATION This test was developed and its performance characteristicsdetermined by [facility] in a manner consistent with CLIArequirements. This test has not been cleared or approved bythe U.S. Food and Drug Administration. Performed By: #### E NCSER ####[facility] RE[facility] LABCLIA [id number] [place] [id number] DPPX AB IFA, S Negative Normal Negative [facility] Comment on above: Order Comment: Key albrecht Type: BLOOD SPECIMENOrdering Facility: [facility] Address: [address] [place] [address] Result Comment: ---- ADDITIONAL INFORMATION This test was developed and its performance characteristicsdetermined by [facility] in a manner consistent with CLMoBeamirements. This test has not been cleared or approved bythe .S. Food and Drug Administration. Performed By: #### E NCSER ####[facility] RE[facility] LABCLIA [id number] [place] [id number] ENCEPHALOPATHY INTERPRETATION SEE NOTE Normal [facility] Comment on above: Order Comment: Key albrehct Type: BLOOD SPECIMENOrdering Facility: [facility] Address: [address] [place] [address] Result Comment: No i nformative autoantibodies were detected in thisevaluation. However, a negative result does not excludeautoimmune encephalopathy, idiopathic or paraneoplastic.Sensitivity and specificity of antibody testing areenhanced by testing both serum and CSF. Performed By: #### E NCSER ####[facility] LABCLIA [id number] [place] [id number] CAITLYN-B-R AB CBA, S Negative Normal Negative [facility] Comment on above: Order Comment: Key [facility] Type: BLOOD SPECIMENOrdering Facility: [facility] Address: [address] [place] [address] Result Comment: ---- ADDITIONAL INFORMATION This test was developed and its performance characteristicsdetermined by [facility] in a manner consistent with CLIArequireiMotions - Eye Tracking. This test has not been cleared or approved bythe .[place]. Food and Drug Administration. Performed By: #### E NCSER ####[facility] LABCLIA [id number] [place] [address] GAD65 ANTIBODY 0.00 nmol/L Normal <= 0.02 [facility] Comment on above: Order Comment: Key albrecht Type: BLOOD SPECIMENOrdering Facility: [facility] Address: [address] [place] [address] Result Comment: ---- ADDITIONAL INFORMATION This test was developed and its performance characteristicsdetermined by [facility] in a manner consistent with CLIArequirements. This test has not been cleared or approved bythe .[place]. Food and Drug Administration. Performed By: #### E NCSER ####[facility] RE[facility] LABCLIA [id number] [place] [address] GFAP IFA, S Negative Normal Negative [facility] Comment on above: Order Comment: Key albrecht Type: BLOOD SPECIMENOrdering Facility: [facility] Address: [address] [place] [address] Result Comment: ---- ADDITIONAL INFORMATION This test was developed and its performance characteristicsdetermined by [facility] in a manner consistent with CLIArequirements. This test has not been cleared or approved bythe U.S. Food and Drug Administration. Performed By: #### E NCSER ####[facility] LABCLIA [id number] [place] [address] IFA NOTES - ENCSER None. Normal [facility] Comment on above: Order Comment: Key [facility] Type: BLOOD SPECIMENOrdering Facility: [facility] Address: [address] [place] [address] Performed By: #### E NCSER ####[facility] LABCLIA [id number] [place] [id number] IGLON5 IFA, S Negative Normal Negative [facility] Comment on above: Order Comment: Key ambrocio Type: BLOOD SPECIMENOrdering Facility: [facility] Address: [address] [place] [address] Result Comment: ---- ADDITIONAL INFORMATION This test was developed and its performance characteristicsdetermined by [facility] in a manner consistent with CLIArequirements. This test has not been cleared or approved bythe U.S. Food and Drug Administration. Performed By: #### E NCSER ####[facility] RE[facility] LABCLIA [id number] [place] [address] LGI1-IGG CBA SERUM Negative Normal Negative [facility] Comment on above: Order Comment: Key ambrocio Type: BLOOD SPECIMENOrdering Facility: [facility] Address: [address] [place] [address] Result Comment: ---- ADDITIONAL INFORMATION This test was developed and its performance characteristicsdetermined by [facility] in a manner consistent with CLIArequirements. This test has not been cleared or approved bythe U.S. Food and Drug Administration. Performed By: #### E NCSER ####[facility] LABCLIA [id number] [place] [address] MGLUR1 AB IFA, S Negative Normal Negative [facility] Comment on above: Order Comment: Key ambrocio Type: BLOOD SPECIMENOrdering Facility: [facility] Address: [address] [place] [address] Result Comment: ---- ADDITIONAL INFORMATION This test was developed and its performance characteristicsdetermined by [facility] in a manner consistent with CLIArequirements. This test has not been cleared or approved bythe U.S. Food and Drug Administration. Performed By: #### E NCSER ####[facility] LABCLIA [id number] [place] [address] NEUROCHONDRIN IFA , S Negative Normal Negative [facility] Comment on above: Order Comment: Key albrecht Type: BLOOD SPECIMENOrdering Facility: [facility] Address: [address] [place] [address] Result Comment: ---- ADDITIONAL INFORMATION This test was developed and its performance characteristicsdetermined by [facility] in a manner consistent with CLIArequirements. This test has not been cleared or approved bythe .[place]. Food and Drug Administration. Performed By: #### E NCSER ####[facility] LABCLIA [id number] [place] [address] NIF IFA, S Negative Normal Negative [facility] Comment on above: Order Comment: Key [facility] Type: BLOOD SPECIMENOrdering Facility: [facility] Address: [address] [place] [address] Result Comment: ---- ADDITIONAL INFORMATION This test was developed and its performance characteristicsdetermined by [facility] in a manner consistent with CLIArequirements. This test has not been cleared or approved bythe U.S. Food and Drug Administration. Performed By: #### E NCSER ####[facility] LABCLIA [id number] [place] [address] NMDA-R AB CBA, S Negative Normal Negative [facility] Comment on above: Order Comment: Key ambrocio Type: BLOOD SPECIMENOrdering Facility: [facility] Address: [address] [place] [address] Result Comment: ---- ADDITIONAL INFORMATION This test was developed and its performance characteristicsdetermined by [facility] in a manner consistent with CLIArequirements. This test has not been cleared or approved bythe U.S. Food and Drug Administration. Performed By: #### E NCSER ####[facility] LABCLIA [id number] [place] [address] PURKINJE CELL CYTO AB, TYPE 1 Negative Normal Negative [facility] Comment on above: Order Comment: Key albrecht Type: BLOOD SPECIMENOrdering Facility: [facility] Address: [address] [place] [address] Result Comment: ---- ADDITIONAL INFORMATION This test was developed and its performance characteristicsdetermined by [facility] in a manner consistent with CLIArequirements. This test has not been cleared or approved bythe U.S. Food and Drug Administration. Performed By: #### E NCSER ####[facility] LABCLIA [id number] [place] [address] PURKINJE CELL CYTO AB, TYPE 2 Negative Normal Negative [facility] Comment on above: Order Comment: Key [facility] Type: BLOOD SPECIMENOrdering Facility: [facility] Address: [address] [place] [address] Result Comment: ---- ADDITIONAL INFORMATION This test was developed and its performance characteristicsdetermined by [facility] in a manner consistent with CLIArequirements. This test has not been cleared or approved bythe U.S. Food and Drug Administration. Performed By: #### E NCSER ####[facility] LABCLIA [id number] [place] [address] PURKINJE CELL CYTO AB, TYPE TR Negative Normal Negative [facility] Comment on above: Order Comment: Key [facility] Type: BLOOD SPECIMENOrdering Facility: [facility] Address: [address] [place] [address] Result Comment: ---- ADDITIONAL INFORMATION This test was developed and its performance characteristicsdetermined by [facility] in a manner consistent with CLIArequirements. This test has not been cleared or approved bythe U.S. Food and Drug Administration. Performed By: #### E NCSER ####[facility] LABCLIA [id number] [place] [id number] SEPTIN-7 IFA, S Negative Normal Negative [facility] Comment on above: Order Comment: Speci men Type: BLOOD SPECIMENOrdering Facility: [facility] Address: [address] [place] [address] Result Comment: ---- ADDITIONAL INFORMATION This test was developed and its performance characteristicsdetermined by [facility] in a manner consistent with CLIArequirements. This test has not been cleared or approved bythe U.S. Food and Drug Administration.Test Performed by:[place] [id number] Director: Oleksandr Munguia M.D. Ph.D.; CLIA# [id number] Performed By: #### E NCSER ####[facility] LABCLIA [id number] [place] [address] Bacteria Bld Culton 09-18-19 24 Bacteria identified Cx Nom (Bld) CULTURE, BLOOD: No growth 5 days Normal [facility] Comment on above: Performed By: #### 6 00-7 ####[facility]ORATORYCLIA [id number] [address] [facility] Bacteria CSF Culton 09-18-19 24 Bacteria identified Cx Nom (CSF) CULTURE, CSF: No growth 5 days GRAM STAIN: Quantity not sufficient. Stain not performed. Account credited. Normal [facility] Comment on above: Performed By: #### 6 06-4 ####[facility]ATORYCLIA [id number] [address] [place] CBC W Auto Differential pane l (Bld)on 09-18-2023 Basophils (Bld) [#/Vol] 10*3/uL Normal <0.11 [facility] Comment on above: Order Comment: Speci men Type: BLOOD SPECIMENOrdering Facility: [facility] Address: [address] [place] [address] Performed By: #### 5 7021-8 ####[facility]ORATORYCLIA [id number] [address] [place] Basophils/100 WBC (Bld) 0.2 % Normal [facility] Comment on above: Order Comment: Speci men Type: BLOOD SPECIMENOrdering Facility: [facility] Address: [address] [place] [address] Performed By: #### 5 7021-8 ####[facility]ATORYCLIA [id number] [address] [place] Differential cell count method Nom (Bld) Auto Normal [facility] Comment on above: Order Comment: Speci men Type: BLOOD SPECIMENOrdering Facility: [facility] Address: [address] [place] [address] Performed By: #### 5 7021-8 ####[facility]ORATORYCLIA [id number] [place] [address] [place] Eosinophils (Bld) [#/Vol] 0.03 10*3/uL Normal <0.46 [facility] Comment on above: Order Comment: Speci men Type: BLOOD SPECIMENOrdering Facility: [facility] Address: [address] [place] [address] Performed By: #### 5 7021-8 ####[facility]ATORYCLIA [id number] [address] [place] Eosinophils/100 WBC (Bld) 0.2 % Normal [facility] Comment on above: Order Comment: Speci men Type: BLOOD SPECIMENOrdering Facility: [facility] Address: [address] [place] [address] Performed By: #### 5 7021-8 ####[facility]ORATORYCLIA [id number] [address] [place] Erythrocyte distribution width (RBC) [Ratio] 13.2 % Normal 11.5-15.0 [facility] Comment on above: Order Comment: Speci men Type: BLOOD SPECIMENOrdering Facility: [facility] Address: [address] [place] [address] Performed By: #### 5 7021-8 ####[facility]ORATORYCLIA [id number] [address] [place] Hematocrit (Bld) [Volume fraction] 31.4 % Low 36.0-46.0 [facility] Comment on above: Order Comment: Speci men Type: BLOOD SPECIMENOrdering Facility: [facility] Address: [address] [place] [address] Performed By: #### 5 7021-8 ####[facility]ORATORYCLIA [id number] [address] [place] Hemoglobin (Bld) [Mass/Vol] 10.9 g/dL Low 11.5-15.5 [facility] Comment on above: Order Comment: Speci men Type: BLOOD SPECIMENOrdering Facility: [facility] Address: [address] [place] [address] Performed By: #### 5 7021-8 ####[facility]ORATORYCLIA [id number] [address] [place] Immature granulocytes (Bld) [#/Vol] 0.10 10*3/uL High <0.10 [facility] Comment on above: Order Comment: Speci men Type: BLOOD SPECIMENOrdering Facility: [facility] Address: [address] [place] [address] Performed By: #### 5 7021-8 ####[facility]ORATORYCLIA [id number] [address] [place] Immature granulocytes/100 WBC (Bld) 0.8 % Normal [facility] Comment on above: Order Comment: Speci men Type: BLOOD SPECIMENOrdering Facility: [facility] Address: [address] [place] [address] Performed By: #### 5 7021-8 ####[facility]ORATORYCLIA [id number] [address] [place] Lymphocytes (Bld) [#/Vol] 2.20 10*3/uL Normal 1.00-4.00 [facility] Comment on above: Order Comment: Speci men Type: BLOOD SPECIMENOrdering Facility: [facility] Address: [address] [place] [address] Performed By: #### 5 7021-8 ####[facility] [facility] LABORATORYCLIA [id number] [address] [facility] Lymphocytes/100 WBC (Bld) 17.3 % Normal [facility] Comment on above: Order Comment: Speci men Type: BLOOD SPECIMENOrdering Facility: [facility] Address: [address] [place] [address] Performed By: #### 5 7021-8 ####[facility] LABORATORYCLIA [id number] [address] [place] MCH (RBC) [Entitic mass] 26.5 pg Normal 26.0-34.0 [facility] Comment on above: Order Comment: Speci men Type: BLOOD SPECIMENOrdering Facility: [facility] Address: [address] [place] [address] Performed By: #### 5 7021-8 ####[facility] LABORATORYCLIA [id number] [address] [place] MCHC (RBC) [Mass/Vol] 34.7 g/dL Normal 30.5-36.0 [facility] Comment on above: Order Comment: Speci men Type: BLOOD SPECIMENOrdering Facility: [facility] Address: [address] [place] [address] Performed By: #### 5 7021-8 ####[facility] LABORATORYCLIA [id number] [address] [place] MCV (RBC) [Entitic vol] 76.4 fL Low 80.0-100.0 [facility] Comment on above: Order Comment: Speci men Type: BLOOD SPECIMENOrdering Facility: [facility] Address: [address] [place] [address] Performed By: #### 5 7021-8 ####[facility]ORATORYCLIA [id number] [address] [place] Monocytes (Bld) [#/Vol] 0.53 10*3/uL Normal <0.87 [facility] Comment on above: Order Comment: Speci men Type: BLOOD SPECIMENOrdering Facility: [facility] Address: [address] [place] [address] Performed By: #### 5 7021-8 ####[facility]ORATORYCLIA [id number] [address] [place] Monocytes/100 WBC (Bld) 4.2 % Normal [facility] Comment on above: Order Comment: Speci men Type: BLOOD SPECIMENOrdering Facility: [facility] Address: [address] [place] [address] Performed By: #### 5 7021-8 ####[facility] LABORATORYCLIA [id number] [address] [place] Neutrophils (Bld) [#/Vol] 9.83 10*3/uL High 1.45-7.50 [facility] Comment on above: Order Comment: Speci men Type: BLOOD SPECIMENOrdering Facility: [facility] Address: [address] [place] [address] Performed By: #### 5 7021-8 ####[facility] LABORATORYCLIA [id number] [address] [place] Neutrophils/100 WBC (Bld) 77.3 % Normal [facility] Comment on above: Order Comment: Speci men Type: BLOOD SPECIMENOrdering Facility: [facility] Address: [address] [place] [address] Performed By: #### 5 7021-8 ####[facility] LABORATORYCLIA [id number] [address] [place] Nucleated RBC (Bld) [#/Vol] 10*3/uL Normal <0.01 [facility] Comment on above: Order Comment: Speci men Type: BLOOD SPECIMENOrdering Facility: [facility] Address: [address] [place] [address] Performed By: #### 5 7021-8 ####[facility] LABORATORYCLIA [id number] [address] [place] Nucleated RBC/100 WBC (Bld) [Ratio] 0.0 /100 WBC Normal [facility] Comment on above: Order Comment: Speci men Type: BLOOD SPECIMENOrdering Facility: [facility] Address: [address] [place] [address] Performed By: #### 5 7021-8 ####[facility] LABORATORYCLIA [id number] [place] [address] [place] Platelet mean volume (Bld) [Entitic vol] 9.8 fL Normal 9.0-12.7 [facility] Comment on above: Order Comment: Speci men Type: BLOOD SPECIMENOrdering Facility: [facility] Address: [address] [place] [address] Performed By: #### 5 7021-8 ####[facility] LABORATORYCLIA [id number] [address] [place] Platelets (Bld) [#/Vol] 210 10*3/uL Normal 150-400 [facility] Comment on above: Order Comment: Speci men Type: BLOOD SPECIMENOrdering Facility: [facility] Address: [address] [place] [address] Performed By: #### 5 7021-8 ####[facility] LABORATORYCLIA [id number] [place] [address] [place] RBC (Bld) [#/Vol] 4.11 10*6/uL Normal 3.90-5.20 [facility] Comment on above: Order Comment: Speci men Type: BLOOD SPECIMENOrdering Facility: [facility] Address: [address] [place] [address] Performed By: #### 5 7021-8 ####[facility] LABORATORYCLIA [id number] [place] [address] [place] WBC (Bld) [#/Vol] 12.71 10*3/uL High 3.70-11.00 [facility] Comment on above: Order Comment: Speci men Type: BLOOD SPECIMENOrdering Facility: [facility] Address: [address] [place] [address] Performed By: #### 5 7021-8 ####[facility] LABORATORYCLIA [id number] [place] [address] [place] Basophils (Bld) [#/Vol] 0.05 10*3/uL Normal <0.11 [facility] Comment on above: Order Comment: Speci men Type: BLOOD SPECIMENOrdering Facility: [facility] Address: [address] [place] [address] Performed By: #### 5 7021-8 ####[facility] LABORATORYCLIA [id number] [address] [place] Basophils/100 WBC (Bld) 0.4 % Normal [facility] Comment on above: Order Comment: Speci men Type: BLOOD SPECIMENOrdering Facility: [facility] Address: [address] [place] [address] Performed By: #### 5 7021-8 ####[facility] LABORATORYCLIA [id number] [address] [place] Differential cell count method Nom (Bld) Auto Normal [facility] Comment on above: Order Comment: Speci men Type: BLOOD SPECIMENOrdering Facility: [facility] Address: [address] [place] [address] Performed By: #### 5 7021-8 ####[facility] LABORATORYCLIA [id number] [place] [address] [place] Eosinophils (Bld) [#/Vol] 0.03 10*3/uL Normal <0.46 [facility] Comment on above: Order Comment: Speci men Type: BLOOD SPECIMENOrdering Facility: [facility] Address: [address] [place] [address] Performed By: #### 5 7021-8 ####[facility]ORATORYCLIA [id number] [address] Eosinophils/100 WBC (Bld) 0.2 % Normal [facility] Comment on above: Order Comment: Speci men Type: BLOOD SPECIMENOrdering Facility: [facility] Address: [address] [place] [address] Performed By: #### 5 7021-8 ####[facility] LABORATORYCLIA [id number] [address] [place] Erythrocyte distribution width (RBC) [Ratio] 13.3 % Normal 11.5-15.0 [facility] Comment on above: Order Comment: Speci men Type: BLOOD SPECIMENOrdering Facility: [facility] Address: [address] [place] [address] Performed By: #### 5 7021-8 ####[facility] LABORATORYCLIA [id number] [address] [place] Hematocrit (Bld) [Volume fraction] 35.1 % Low 36.0-46.0 [facility] Comment on above: Order Comment: Speci men Type: BLOOD SPECIMENOrdering Facility: [facility] Address: [address] [place] [address] Performed By: #### 5 7021-8 ####[facility] LABORATORYCLIA [id number] [address] Immature granulocytes (Bld) [#/Vol] 0.09 10*3/uL Normal <0.10 [facility] Comment on above: Order Comment: Speci men Type: BLOOD SPECIMENOrdering Facility: [facility] Address: [address] [place] [address] Performed By: #### 5 7021-8 ####[facility] LABORATORYCLIA [id number] [address] Immature granulocytes/100 WBC (Bld) 0.7 % Normal [facility] Comment on above: Order Comment: Speci men Type: BLOOD SPECIMENOrdering Facility: [facility] Address: [address] [place] [address] Performed By: #### 5 7021-8 ####[facility] LABORATORYCLIA [id number] [address] [place] Lymphocytes (Bld) [#/Vol] 1.68 10*3/uL Normal 1.00-4.00 [facility] Comment on above: Order Comment: Speci men Type: BLOOD SPECIMENOrdering Facility: [facility] Address: [address] [place] [address] Performed By: #### 5 7021-8 ####[facility] LABORATORYCLIA [id number] [address] [facility] Lymphocytes/100 WBC (Bld) 13.0 % Normal [facility] Comment on above: Order Comment: Speci men Type: BLOOD SPECIMENOrdering Facility: [facility] Address: [address] [place] [address] Performed By: #### 5 7021-8 ####[facility] LABORATORYCLIA [id number] [address] [place] MCH (RBC) [Entitic mass] 26.0 pg Normal 26.0-34.0 [facility] Comment on above: Order Comment: Speci men Type: BLOOD SPECIMENOrdering Facility: [facility] Address: [address] [place] [address] Performed By: #### 5 7021-8 ####[facility] LABORATORYCLIA [id number] [address] [place] MCHC (RBC) [Mass/Vol] 34.2 g/dL Normal 30.5-36.0 [facility] Comment on above: Order Comment: Speci men Type: BLOOD SPECIMENOrdering Facility: [facility] Address: [address] [place] [address] Performed By: #### 5 7021-8 ####[facility] LABORATORYCLIA [id number] [address] [place] MCV (RBC) [Entitic vol] 76.1 fL Low 80.0-100.0 [facility] Comment on above: Order Comment: Speci men Type: BLOOD SPECIMENOrdering Facility: [facility] Address: [address] [place] [address] Performed By: #### 5 7021-8 ####[facility]ORATORYCLIA [id number] [address] [place] Monocytes (Bld) [#/Vol] 0.38 10*3/uL Normal <0.87 [facility] Comment on above: Order Comment: Speci men Type: BLOOD SPECIMENOrdering Facility: [facility] Address: [address] [place] [address] Performed By: #### 5 7021-8 ####[facility]ORATORYCLIA [id number] [address] Monocytes/100 WBC (Bld) 2.9 % Normal [facility] Comment on above: Order Comment: Speci men Type: BLOOD SPECIMENOrdering Facility: [facility] Address: [address] [place] [address] Performed By: #### 5 7021-8 ####[facility] LABORATORYCLIA [id number] [address] [place] Neutrophils (Bld) [#/Vol] 10.74 10*3/uL High 1.45-7.50 [facility] Comment on above: Order Comment: Speci men Type: BLOOD SPECIMENOrdering Facility: [facility] Address: [address] [place] [address] Performed By: #### 5 7021-8 ####[facility]ORATORYCLIA [id number] [address] [place] Neutrophils/100 WBC (Bld) 82.8 % Normal [facility] Comment on above: Order Comment: Speci men Type: BLOOD SPECIMENOrdering Facility: [facility] Address: [address] [place] [address] Performed By: #### 5 7021-8 ####[facility] LABORATORYCLIA [id number] [place] [address] [place] Nucleated RBC (Bld) [#/Vol] 10*3/uL Normal <0.01 [facility] Comment on above: Order Comment: Speci men Type: BLOOD SPECIMENOrdering Facility: [facility] Address: [address] [place] [address] Performed By: #### 5 7021-8 ####[facility] LABORATORYCLIA [id number] [place] [address] [place] Nucleated RBC/100 WBC (Bld) [Ratio] 0.0 /100 WBC Normal [facility] Comment on above: Order Comment: Speci men Type: BLOOD SPECIMENOrdering Facility: [facility] Address: [address] [place] [address] Performed By: #### 5 7021-8 ####[facility] LABORATORYCLIA [id number] [place] [address] [place] Platelet mean volume (Bld) [Entitic vol] 9.5 fL Normal 9.0-12.7 [facility] Comment on above: Order Comment: Speci men Type: BLOOD SPECIMENOrdering Facility: [facility] Address: [address] [place] [address] Performed By: #### 5 7021-8 ####[facility] LABORATORYCLIA [id number] [place] [address] [place] Platelets (Bld) [#/Vol] 238 10*3/uL Normal 150-400 [facility] Comment on above: Order Comment: Speci men Type: BLOOD SPECIMENOrdering Facility: [facility] Address: [address] [place] [address] Performed By: #### 5 7021-8 ####[facility] LABORATORYCLIA [id number] [place] [address] [place] RBC (Bld) [#/Vol] 4.61 10*6/uL Normal 3.90-5.20 [facility] Comment on above: Order Comment: Speci men Type: BLOOD SPECIMENOrdering Facility: [facility] Address: [address] [place] [address] Performed By: #### 5 7021-8 ####[facility] LABORATORYCLIA [id number] [address] [place] WBC (Bld) [#/Vol] 12.97 10*3/uL High 3.70-11.00 [facility] Comment on above: Order Comment: Speci men Type: BLOOD SPECIMENOrdering Facility: [facility] Address: [address] [place] [address] Performed By: #### 5 7021-8 ####[facility] LABORATORYCLIA [id number] [address] OF [facility] CBC panel Auto (Bld)on 09-17 Erythrocyte distribution width (RBC) [Ratio] 13.8 % Normal 11.5-15.0 [facility] Comment on above: Order Comment: Speci men Type: BLOOD SPECIMENOrdering Facility: [facility] Address: [address] [place] [address] Performed By: #### 5 8410-2 ####[facility] LABORATORYCLIA [id number] [address] STATES OF [facility] Hematocrit (Bld) [Volume fraction] 31.7 % Low 36.0-46.0 [facility] Comment on above: Order Comment: Speci men Type: BLOOD SPECIMENOrdering Facility: [facility] Address: [address] [place] [address] Performed By: #### 5 8410-2 ####[facility] LABORATORYCLIA [id number] [address] [place] Hemoglobin (Bld) [Mass/Vol] 10.9 g/dL Low 11.5-15.5 [facility] Comment on above: Order Comment: Speci men Type: BLOOD SPECIMENOrdering Facility: [facility] Address: [address] [place] [address] Performed By: #### 5 8410-2 ####[facility] LABORATORYCLIA [id number] [address] MCH (RBC) [Entitic mass] 26.3 pg Normal 26.0-34.0 [facility] Comment on above: Order Comment: Speci men Type: BLOOD SPECIMENOrdering Facility: [facility] Address: [address] [place] [address] Performed By: #### 5 8410-2 ####[facility] LABORATORYCLIA [id number] [address] STATES [facility] MCHC (RBC) [Mass/Vol] 34.4 g/dL Normal 30.5-36.0 [facility] Comment on above: Order Comment: Speci men Type: BLOOD SPECIMENOrdering Facility: [facility] Address: [address] [place] [address] Performed By: #### 5 8410-2 ####[facility] LABORATORYCLIA [id number] [address] [place] MCV (RBC) [Entitic vol] 76.6 fL Low 80.0-100.0 [facility] Comment on above: Order Comment: Speci men Type: BLOOD SPECIMENOrdering Facility: [facility] Address: [address] [place] [address] Performed By: #### 5 8410-2 ####[facility] LABORATORYCLIA [id number] [address] [place] Nucleated RBC (Bld) [#/Vol] 10*3/uL Normal <0.01 [facility] Comment on above: Order Comment: Speci men Type: BLOOD SPECIMENOrdering Facility: [facility] Address: [address] [place] [address] Performed By: #### 5 8410-2 ####[facility] LABORATORYCLIA [id number] [address] STATES [facility] Platelet mean volume (Bld) [Entitic vol] 9.4 fL Normal 9.0-12.7 [facility] Comment on above: Order Comment: Speci men Type: BLOOD SPECIMENOrdering Facility: [facility] Address: [address] [place] [address] Performed By: #### 5 8410-2 ####[facility] LABORATORYCLIA [id number] [address] [place] Platelets (Bld) [#/Vol] 211 10*3/uL Normal 150-400 [facility] Comment on above: Order Comment: Speci men Type: BLOOD SPECIMENOrdering Facility: [facility] Address: [address] [place] [address] Performed By: #### 5 8410-2 ####[facility] LABORATORYCLIA [id number] [place] [address] [place] RBC (Bld) [#/Vol] 4.14 10*6/uL Normal 3.90-5.20 [facility] Comment on above: Order Comment: Speci men Type: BLOOD SPECIMENOrdering Facility: [facility] Address: [address] [place] [address] Performed By: #### 5 8410-2 ####[facility] LABORATORYCLIA [id number] [place] [address] [place] WBC (Bld) [#/Vol] 10.81 10*3/uL Normal 3.70-11.00 [facility] Comment on above: Order Comment: Speci men Type: BLOOD SPECIMENOrdering Facility: [facility] Address: [address] [place] [address] Performed By: #### 5 8410-2 ####[facility] LABORATORYCLIA [id number] [address] [place] CONSULT PROGon 09-18-2023 CONSULT PROG Normal [facility] CONSULT PROG Normal [facility] CYTOLOGY NON-GYNon CASE REPORT Normal [facility] Comment on above: Order Comment: Speci men Type: FLUID SPECIMENOrdering Facility: [facility] Address: [address] [place] [address] Result Comment: Medi kylie Cytology Report Case: [id number] Provider: Yue Valdez, Collected: 09/18/2023 03:37 PM ENGINE WATCHMAN.CNPOrdering Location: [place] [address] [facility] ICU Received: 09/20/2023 04:00 AMPathologist: Mayda Fan MDSpecimen: CEREBROSPINAL FLUID. Performed By: #### C YTONON ####[facility] LABORATORYCLIA [id number] [address] CLINICAL HISTORY concern for meningitis Normal [facility] Comment on above: Order Comment: Speci men Type: FLUID SPECIMENOrdering Facility: [facility] Address: [address] [place] [address] Performed By: #### C YTONON ####[facility] LABORATORYCLIA [id number] [address] FINAL DIAGNOSIS Normal [facility] Comment on above: Order Comment: Speci men Type: FLUID SPECIMENOrdering Facility: [facility] Address: [address] [place] [address] Result Comment: A - CEREBROSPINAL FLUID. Negative for malignant cells. Blood elements. Performed By: #### C YTONON ####[facility] LABORATORYCLIA [id number] [address] FINAL PERFORMING LAB Normal [facility] Comment on above: Order Comment: Speci men Type: FLUID SPECIMENOrdering Facility: [facility] Address: [address] [place] [address] Result Comment: Tech nical component, rn long term care screening performed at [facility], [address] [place] [address] CLIA# [id number] interpretation performed at [facility], [address] [place] [address] CLIA# [id number] Director: Long Rosenbaum M.D. Performed By: #### C YTONON ####[facility] LABORATORYCLIA [id number] [address] GROSS DESCRIPTION Normal [facility] Comment on above: Order Comment: Speci men Type: FLUID SPECIMENOrdering Facility: [facility] Address: [address] [place] [address] Result Comment: A. C EREBROSPINAL FLUID.4 cc clear colorless fluid. ThinPrep and Cytospin prepared. Performed By: #### C YTMEMON ####[facility] LABORATORYCLIA [id number] [place] [id number] [facility] Comprehensive metabolic 2000 panelon 09-18-2023 Albumin [Mass/Vol] 3.2 g/dL Low 3.9-4.9 [facility] Comment on above: Order Comment: Speci men Type: BLOOD SPECIMENOrdering Facility: [facility] Address: [address] [place] [address] Performed By: #### 3 016-3, 29066-6, 01818-2, 43102-1, 2776-1 ####[facility] LABORATORYCLIA [id number] [address] STATES [place] ALP [Catalytic activity/Vol] 98 U/L Normal 34-123 [facility] Comment on above: Order Comment: Speci men Type: BLOOD SPECIMENOrdering Facility: [facility] Address: [address] [place] [address] Performed By: #### 3 016-3, 37466-9, 20701-8, 13332-5, 7-1 ####[facility] LABORATORYCLIA [id number] [address] STATES OF [facility] ALT With P-5'-P [Catalytic activity/Vol] 11 U/L Normal 7-38 [facility] Comment on above: Order Comment: Speci men Type: BLOOD SPECIMENOrdering Facility: [facility] Address: [address] [place] [address] Performed By: #### 3 016-3, 21033-8, 51924-5, 23047-3, 7-1 ####[facility] LABORATORYCLIA [id number] [place] [id number] [place] [facility] Anion gap [Moles/Vol] 12 mmol/L Normal 9-18 [facility] Comment on above: Order Comment: Speci men Type: BLOOD SPECIMENOrdering Facility: [facility] Address: [address] [place] [address] Performed By: #### 3 016-3, 35028-2, 74622-7, 34619-8, 2776-1 ####[facility] LABORATORYCLIA [id number] [place] [address] [place] AST With P-5'-P [Catalytic activity/Vol] 17 U/L Normal 13-35 [facility] Comment on above: Order Comment: Speci men Type: BLOOD SPECIMENOrdering Facility: [facility] Address: [address] [place] [address] Performed By: #### 3 016-3, 42793-8, 31380-9, 15101-0, 2776- ####[facility]ORATORYCLIA [id number] [place] [id number] [place] Bilirubin [Mass/Vol] 0.2 mg/dL Normal 0.2-1.3 [facility] Comment on above: Order Comment: Speci men Type: BLOOD SPECIMENOrdering Facility: [facility] Address: [address] [place] [address] Performed By: #### 3 016-3, 35827-5, 48220-2, 52668-0, 2776-07 ####[facility] LABORATORYCLIA [id number] [place] [address] [place] Calcium [Mass/Vol] 7.9 mg/dL Low 8.5-10.2 [facility] Comment on above: Order Comment: Speci men Type: BLOOD SPECIMENOrdering Facility: [facility] Address: [address] [place] [address] Performed By: #### 3 016-3, 66974-7, 88031-2, 03997-4, 2776- ####[facility] LABORATORYCLIA [id number] [place] [id number] [place] Chloride [Moles/Vol] 104 mmol/L Normal 97-105 [facility] Comment on above: Order Comment: Speci men Type: BLOOD SPECIMENOrdering Facility: [facility] Address: [address] [place] [address] Performed By: #### 3 016-3, 58300-7, 78387-3, 26199-9, 2776-1 ####[facility] [id number] [place] [address] [place] CO2 [Moles/Vol] 22 mmol/L Normal 22-30 [facility] Comment on above: Order Comment: Speci men Type: BLOOD SPECIMENOrdering Facility: [facility] Address: [address] [place] [address] Performed By: #### 3 016-3, 39523-6, 87791-3, 32823-1, 2776- ####[facility]ITALCLIA [id number] [address] STATES OF [facility] Creatinine [Mass/Vol] 0.70 mg/dL Normal 0.58-0.96 [facility] Comment on above: Order Comment: Speci men Type: BLOOD SPECIMENOrdering Facility: [facility] Address: [address] [place] [address] Performed By: #### 3 016-3, 85465-7, 30941-8, 96369-3, 2776-07 ####[facility] HOSPITALIA [id number] [address] Creatinine and Glomerular filtration rate.predicted panel (S/P/Bld) 96 mL/min/1.73m??? Normal >=60 [facility] Comment on above: Order Comment: Speci [facility] Type: BLOOD SPECIMENOrdering Facility: [facility] Address: [address] [place] [address] Result Comment: Swetha mated Glomerular Filtration Rate [...] actual GFR. Performed By: #### 3 016-3, 30237-4, 48766-6, 96340-2, 7-1 ####[facility]ORATORYCLIA [id number] [place] [address] [place] Glucose [Mass/Vol] 194 mg/dL High 74-99 [facility] Comment on above: Order Comment: Speci men Type: BLOOD SPECIMENOrdering Facility: [facility] Address: [address] [place], [place] [id number] Result Comment: The [place] [employer] (ADA) provides guidance for cutoff [...] Standards of Medical Care in Diabetes 2016, [place] [employer]. Diabetes Care. 2016.39(Suppl 1). Performed By: #### 3 016-3, 81325-6, 94574-9, 78914-6, 2776-1 ####[facility] LABORATORYCLIA [id number] [place] [address] [place] Potassium [Moles/Vol] 3.4 mmol/L Low 3.7-5.1 [facility] Comment on above: Order Comment: Key ambrocio Type: BLOOD SPECIMENOrdering Facility: [facility] Address: [address] [place] [address] Performed By: #### 3 016-3, 53278-5, 55298-1, 27007-6, 2776-07 ####[facility] LABORATORYCLIA [id number] [place] [address] [place] Protein [Mass/Vol] 6.2 g/dL Low 6.3-8.0 [facility] Comment on above: Order Comment: Rigobertoemir albrecht Type: BLOOD SPECIMENOrdering Facility: [facility] Address: [address] [place], [place] [id number] Performed By: #### 3 016-3, 85062-1, 92265-0, 92892-1, 2776- ####[facility]ORATORYCLIA [id number] [place] [address] [place] Sodium [Moles/Vol] 138 mmol/L Normal 136-144 [facility] Comment on above: Order Comment: Speci men Type: BLOOD SPECIMENOrdering Facility: [facility] Address: [address] [place] [address] Performed By: #### 3 016-3, 52022-4, 85945-7, 54545-8, 277-1 ####[facility]ORATORYCLIA [id number] [place] [address] [place] Urea nitrogen [Mass/Vol] 8 mg/dL Normal 7-21 [facility] Comment on above: Order Comment: Speci men Type: BLOOD SPECIMENOrdering Facility: [facility] Address: [address] [place] [address] Performed By: #### 3 016-3, 03127-4, 38116-0, 80764-8, 277-1 ####[facility]ORATORYCLIA [id number] [place] [id number] [place] Albumin [Mass/Vol] 3.4 g/dL Low 3.9-4.9 [facility] Comment on above: Order Comment: Speci men Type: BLOOD SPECIMENOrdering Facility: [facility] Address: [address] [place] [address] Performed By: #### 2 777-1, 24693-9, 19508-2, 29015-0 ####[facility]ORATORYCLIA [id number] [place] [address] [place] ALP [Catalytic activity/Vol] 118 U/L Normal 34-123 [facility] Comment on above: Order Comment: Speci men Type: BLOOD SPECIMENOrdering Facility: [facility] Address: [address] [place] [address] Performed By: #### 2 777-1, 40989-8, 74713-2, 14033-5 ####[facility]ORATORYCLIA [id number] [place] [address] [place] ALT With P-5'-P [Catalytic activity/Vol] 14 U/L Normal 7-38 [facility] Comment on above: Order Comment: Speci men Type: BLOOD SPECIMENOrdering Facility: [facility] Address: [address] [place] [address] Performed By: #### 2 777-1, 79710-3, 91673-9, 71330-4 ####[facility]ORATORYCLIA [id number] [place] [address] [place] [facility] Anion gap [Moles/Vol] 14 mmol/L Normal 9-18 [facility] Comment on above: Order Comment: Speci men Type: BLOOD SPECIMENOrdering Facility: [facility] Address: [address] [place] [address] Performed By: #### 2 777-1, 25513-3, 83752-6, 69519-2 ####[facility]ORATORYCLIA [id number] [address] STATES OF [facility] AST With P-5'-P [Catalytic activity/Vol] 19 U/L Normal 13-35 [facility] Comment on above: Order Comment: Speci men Type: BLOOD SPECIMENOrdering Facility: [facility] Address: [address] [place] [address] Performed By: #### 2 777-1, 62067-5, 11248-2, 21468-6 ####[facility]ORATORYCLIA [id number] [place] [id number] [place] Bilirubin [Mass/Vol] 0.2 mg/dL Normal 0.2-1.3 [facility] Comment on above: Order Comment: Speci men Type: BLOOD SPECIMENOrdering Facility: [facility] Address: [address] [place] [address] Performed By: #### 2 777-1, 50107-0, 00110-3, 76356-0 ####[facility]ORATORYCLIA [id number] [place] [address] [place] Calcium [Mass/Vol] 8.7 mg/dL Normal 8.5-10.2 [facility] Comment on above: Order Comment: Speci men Type: BLOOD SPECIMENOrdering Facility: [facility] Address: [address] [place] [address] Performed By: #### 2 777-1, 64318-3, 01817-9, 15288-0 ####[facility]ORATORYCLIA [id number] [place] [address] [place] Chloride [Moles/Vol] 96 mmol/L Low 97-105 [facility] Comment on above: Order Comment: Speci men Type: BLOOD SPECIMENOrdering Facility: [facility] Address: [address] [place] [address] Performed By: #### 2 777-1, 61763-0, 76759-2, 83551-6 ####[facility]ORATORYCLIA [id number] [address] STATES [place] CO2 [Moles/Vol] 23 mmol/L Normal 22-30 [facility] Comment on above: Order Comment: Speci men Type: BLOOD SPECIMENOrdering Facility: [facility] Address: [address] [place] [address] Performed By: #### 2 777-1, 77184-8, 97015-7, 20472-2 ####[facility]ORATORYCLIA [id number] [address] [place] Creatinine [Mass/Vol] 0.78 mg/dL Normal 0.58-0.96 [facility] Comment on above: Order Comment: Speci men Type: BLOOD SPECIMENOrdering Facility: [facility] Address: [address] [place] [address] Performed By: #### 2 777-1, 38448-3, 58396-1, 00810-4 ####[facility]ORATORYCLIA [id number] [address] Creatinine and Glomerular filtration rate.predicted panel (S/P/Bld) 84 mL/min/1.73m??? Normal >=60 [facility] Comment on above: Order Comment: Key albrecht Type: BLOOD SPECIMENOrdering Facility: [facility] Address: [address] [place] [id number] Result Comment: Swetha mated Glomerular Filtration Rate [...] actual GFR. Performed By: #### 2 777-1, 11962-6, 29819-7, 84501-0 ####[facility]ITALCLIA [id number] [place] [address] [place] Glucose [Mass/Vol] 339 mg/dL High 74-99 [facility] Comment on above: Order Comment: Key albrecht Type: BLOOD SPECIMENOrdering Facility: [facility] Address: [address] [place] [address] Result Comment: The [place] Diabetes Association (ADA) provides guidance for cutoff [...] Standards of Medical Care in Diabetes 2016, [place] [employer] Association. Diabetes Care. 2016.39(Suppl 1). Performed By: #### 2 777-1, 88580-2, 09920-7, 11547-7 ####[facility]ORATORYCLIA [id number] [place] [address] [place] Potassium [Moles/Vol] 4.2 mmol/L Normal 3.7-5.1 [facility] Comment on above: Order Comment: Key albrecht Type: BLOOD SPECIMENOrdering Facility: [facility] Address: [address] [place] [address] Performed By: #### 2 777-1, 04482-3, 20564-4, 73920-2 ####[facility]ORATORYCLIA [id number] [address] STATES OF [facility] Protein [Mass/Vol] 7.0 g/dL Normal 6.3-8.0 [facility] Comment on above: Order Comment: Speci men Type: BLOOD SPECIMENOrdering Facility: [facility] Address: [address] [place] [address] Performed By: #### 2 777-1, 52704-9, 95607-7, 19237-4 ####[facility]ORATORYCLIA [id number] [place] [address] [place] Sodium [Moles/Vol] 133 mmol/L Low 136-144 [facility] Comment on above: Order Comment: Speci men Type: BLOOD SPECIMENOrdering Facility: [facility] Address: [address] [place] [address] Performed By: #### 2 777-1, 37009-7, 56815-2, 19690-9 ####[facility]ORATORYCLIA [id number] [address] [place] Urea nitrogen [Mass/Vol] 10 mg/dL Normal 7-21 [facility] Comment on above: Order Comment: Speci men Type: BLOOD SPECIMENOrdering Facility: [facility] Address: [address] [place] [address] Performed By: #### 2 777-1, 72195-0, 39293-2, 59930-8 ####[facility]ORATORYCLIA [id number] [place] [id number] [place] ECG COMPLETEon 09-18-2023 ECG COMPLETE Normal [facility] ECHO WITH AGITATED SALINE CO NTRASTon 09-18-2023 ECHO WITH AGITATED SALINE CONTRAST Normal [facility] HIGH SENSITIVITY TROPONIN To n 09-18-2023 Troponin T.cardiac High sensitivity method [Mass/Vol] 21 ng/L High <12 [facility] Comment on above: Order Comment: Speci men Type: BLOOD SPECIMENOrdering Facility: [facility] Address: [address] [place] [address] Result Comment: When assessing risk for acute [...] day MACE. Performed By: #### H STNT ####[facility]ORATORYCLIA [id number] [address] Troponin T.cardiac High sensitivity method [Mass/Vol] 21 ng/L High <12 [facility] Comment on above: Order Comment: Key albrecht Type: BLOOD SPECIMENOrdering Facility: [facility] Address: [address] [place] [address] Result Comment: When assessing risk for acute [...] day MACE. Performed By: #### H STNT ####[facility]ATORYCLIA [id number] [address] [place] HISTORY PHYSICALon HISTORY PHYSICAL Normal [facility] HbA1c (Bld)on 09-18-2023 Average glucose Estimated from glycated hemoglobin (Bld) [Mass/Vol] 220 mg/dL Normal [facility] Comment on above: Order Comment: Rigobertoemir [facility] Type: BLOOD SPECIMENOrdering Facility: [facility] Address: [address] [place] [address] Result Comment: eAG: (Estimated average glucose) is a calculated value from HgbA1c and is sales representative womens health of the average blood glucose level in the last 2-3 month period. Performed By: #### 5 5454-3 ####[facility] LABCLIA [id number] [address] STATES [place] HbA1c (Bld) [Mass fraction] 9.3 % High 4.3-5.6 [facility] Comment on above: Order Comment: Speci men Type: BLOOD SPECIMENOrdering Facility: [facility] Address: [address] [place] [address] Result Comment: [facility] Diabetes Association guidelines indicate that patients with HgbA1c in the range 5.7-6.4% are at increased risk for development of diabetes, and intervention by lifestyle modification may be beneficial. HgbA1c greater or equal to 6.5% is considered diagnostic of diabetes. Performed By: #### 5 5454-3 ####[facility] LABCLIA [id number] [address] [place] Lactate (Bld) [Moles/Vol]on 09-18-2023 Lactate [Moles/Vol] 1.1 mmol/L Normal 0.5-2.2 [facility] Comment on above: Order Comment: Speci men Type: BLOOD SPECIMENOrdering Facility: [facility] Address: [address] [place] [address] Performed By: #### 3 2693-4 ####[place] [facility] LimitedFAIRMONT REG[facility] LABORATORYCLIA [id number] [address] [place] Lactate [Moles/Vol] 2.8 mmol/L High 0.5-2.2 [facility] Comment on above: Order Comment: Speci men Type: BLOOD SPECIMENOrdering Facility: [facility] Address: [address] [place] [address] Performed By: #### 3 2693-4 ####[facility] [facility] LimitedRON [facility] LABORATORYCLIA [id number] [place] [address] [place] Lactate [Moles/Vol] 4.3 mmol/L High 0.5-2.2 [facility] Comment on above: Order Comment: Speci men Type: BLOOD SPECIMENOrdering Facility: [facility] Address: [address] [place] [address] Performed By: #### 3 2693-4 ####[place] [facility] [place] [facility] LimitedFAIRMONT REGION[facility] LABORATORYCLIA [id number] [address] [place] MRI BRAIN WO/W IVCONon 09-17 MRI BRAIN WO/W IVCON Normal [facility] MRI CERVICAL SPINE WO/W IVCO Non 09-18-2023 MRI CERVICAL SPINE WO/W IVCON Normal [facility] Magnesium SerPl-mCncon 09-17 Magnesium [Mass/Vol] 1.4 mg/dL Low 1.7-2.3 [facility] Comment on above: Order Comment: Speci men Type: BLOOD SPECIMENOrdering Facility: [facility] Address: [address] [place] [address] Performed By: #### 3 016-3, 77610-1, 88300-4, 42274-0, 2777-1 ####[facility]ORATORYCLIA [id number] [place] [address] [place] Magnesium [Mass/Vol] 1.5 mg/dL Low 1.7-2.3 [facility] Comment on above: Order Comment: Speci men Type: BLOOD SPECIMENOrdering Facility: [facility] Address: [address] [place] [address] Performed By: #### 2 777-1, 93329-3, 53750-6, 54124-3 ####[facility]ORATORYCLIA [id number] [address] [place] Meningitis+Encephalitis path ogens DNA and RNA panel DAYANA+non-probe (CSF)on 09-18-2023 C. gattii+neoformans DNA DAYANA+non-probe Ql (CSF) Not detected Normal Not detected [facility] Comment on above: Order Comment: Speci men Type: CEREBROSPINAL FLUID SPECIMENOrdering Facility: [facility] Address: [address] [place] [address] Performed By: #### 8 2180-1 ####[facility]ORATORYCLIA [id number] [address] [place] CMV DNA DAYANA+non-probe Ql (CSF) Not detected Normal Not detected [facility] Comment on above: Order Comment: Speci men Type: CEREBROSPINAL FLUID SPECIMENOrdering Facility: [facility] Address: [address] [place] [address] Performed By: #### 8 2180-1 ####[facility]ORATORYCLIA [id number] [address] [place] E. coli K1 DNA DAYANA+non-probe Ql (CSF) Not detected Normal Not detected [facility] Comment on above: Order Comment: Speci men Type: CEREBROSPINAL FLUID SPECIMENOrdering Facility: [facility] Address: [address] [place] [address] Performed By: #### 8 2179-1 ####[facility]ORATORYCLIA [id number] [address] Enterovirus RNA DAYANA+non-probe Ql (CSF) Not detected Normal Not detected [facility] Comment on above: Order Comment: Speci men Type: CEREBROSPINAL FLUID SPECIMENOrdering Facility: [facility] Address: [address] [place] [address] Performed By: #### 8 2179-1 ####[facility]ORATORYCLIA [id number] [address] OF [place] H. influenzae DNA DAYANA+non-probe Ql (CSF) Not detected Normal Not detected [facility] Comment on above: Order Comment: Speci men Type: CEREBROSPINAL FLUID SPECIMENOrdering Facility: [facility] Address: [address] [place] [address] Performed By: #### 8 2179-1 ####[facility]ORATORYCLIA [id number] [address] OF [place] HHV 6 DNA DAYANA+non-probe Ql (CSF) Not detected Normal Not detected [facility] Comment on above: Order Comment: Speci [facility] Type: CEREBROSPINAL FLUID SPECIMENOrdering Facility: [facility] Address: [address] [place] [address] Performed By: #### 8 2180-1 ####[facility]ORATORYCLIA [id number] [address] OF [place] HSV 1 DNA DAYANA+non-probe Ql (CSF) Not detected Normal Not detected [facility] Comment on above: Order Comment: Speci men Type: CEREBROSPINAL FLUID SPECIMENOrdering Facility: [facility] Address: [address] [place] [address] Performed By: #### 8 218-1 ####[facility]ORATORYCLIA [id number] [address] HSV 2 DNA DAYANA+non-probe Ql (CSF) Not detected Normal Not detected [facility] Comment on above: Order Comment: Speci men Type: CEREBROSPINAL FLUID SPECIMENOrdering Facility: [facility] Address: [address] [place] [address] Performed By: #### 8 2179-1 ####[facility]ORATORYCLIA [id number] [address] L. monocytogenes DNA DAYANA+non-probe Ql (CSF) Not detected Normal Not detected [facility] Comment on above: Order Comment: Speci men Type: CEREBROSPINAL FLUID SPECIMENOrdering Facility: [facility] Address: [address] [place] [address] Performed By: #### 8 2179- ####[facility]ORATORYCLIA [id number] [address] N. meningitidis DNA DAYANA+non-probe Ql (CSF) Not detected Normal Not detected [facility] Comment on above: Order Comment: Speci men Type: CEREBROSPINAL FLUID SPECIMENOrdering Facility: [facility] Address: [address] [place] [address] Performed By: #### 8 2179-1 ####[facility]ORATORYCLIA [id number] [address] OF [place] Parechovirus A RNA DAYANA+non-probe Ql (CSF) Not detected Normal Not detected [facility] Comment on above: Order Comment: Speci men Type: CEREBROSPINAL FLUID SPECIMENOrdering Facility: [facility] Address: [address] [place] [address] Performed By: #### 8 2179-1 ####[facility]ORATORYCLIA [id number] [address] OF [place] S. agalactiae DNA DAYANA+non-probe Ql (CSF) Not detected Normal Not detected [facility] Comment on above: Order Comment: Speci men Type: CEREBROSPINAL FLUID SPECIMENOrdering Facility: [facility] Address: [address] [place] [address] Performed By: #### 8 2180-1 ####[facility]ORATORYCLIA [id number] [address] S. pneumoniae DNA DAYANA+non-probe Ql (CSF) Not detected Normal Not detected [facility] Comment on above: Order Comment: Rigobertoi men Type: CEREBROSPINAL FLUID SPECIMENOrdering Facility: [facility] Address: [address] [place] [address] Performed By: #### 8 2180-1 ####[facility] LABORATORYCLIA [id number] [address] VZV DNA DAYANA+non-probe Ql (CSF) Not detected Normal Not detected [facility] Comment on above: Order Comment: Speci men Type: CEREBROSPINAL FLUID SPECIMENOrdering Facility: [facility] Address: [address] [place] [address] Performed By: #### 8 2180-1 ####[facility]ORATORYCLIA [id number] [address] [place] PT panel Coag (PPP)on 2023 INR Coag (PPP) [Relative time] 1.0 {INR} Normal 0.9-1.3 [facility] Comment on above: Order Comment: Speci men Type: BLOOD SPECIMENOrdering Facility: [facility] Address: [address] [place] [address] Result Comment: Karis min K Antagonist (VKA) Therapeutic Range: INR 2 to 3 (Target INR of 2.5)Note: For patients treated with VKA drugs, such as warfarin, the [place] [employer] 2012 Guideline recommends [...] of 3).Isidoro MONSIVAIS, et al. Chest 2012, 141:7S-47SRosa Maria RA, et al. [facility] 2017, 70: 252-289 Performed By: #### 3 4528-0, 77375-4 ####[facility] LABORATORYCLIA [id number] [place] [address] [place] PT Coag (PPP) [Time] 10.3 s Normal 9.7-13.0 [facility] Comment on above: Order Comment: Key albrecht Type: BLOOD SPECIMENOrdering Facility: [facility] Address: [address] [place] [address] Performed By: #### 3 4528-0, 06715-4 ####[facility]ORATORYCLIA [id number] [place] [address] [place] Phosphate SerPl-mCncon 09-17 Phosphate [Mass/Vol] 2.9 mg/dL Normal 2.7-4.8 [facility] Comment on above: Order Comment: Key albrecht Type: BLOOD SPECIMENOrdering Facility: [facility] Address: [address] [place] [address] Performed By: #### 3 016-3, 95435-3, 65188-4, 42917-0, 2777-1 ####[facility]ORATORYCLIA [id number] [place] [address] [place] Phosphate [Mass/Vol] 4.1 mg/dL Normal 2.7-4.8 [facility] Comment on above: Order Comment: Key albrecht Type: BLOOD SPECIMENOrdering Facility: [facility] Address: [address] [place] [address] Performed By: #### 2 777-1, 39190-8, 25902-2, 63642-2 ####[facility]ORATORYCLIA [id number] [address] [place] Procalcitonin SerPl-mCncon 0 09-18-2023 Procalcitonin [Mass/Vol] ng/mL Normal <0.09 [facility] Comment on above: Order Comment: Speci men Type: BLOOD SPECIMENOrdering Facility: [facility] Address: [address] [place] [address] Result Comment: For a guided interpretation of test results, please visit the Change in Procalcitonin Calculator, [email or web address]. Performed By: #### 3 016-3, 03855-3, 51206-9, 54678-0, 2777-1 ####[facility]ORATORYCLIA [id number] [address] Procalcitonin [Mass/Vol] 0.08 ng/mL Normal <0.09 [facility] Comment on above: Order Comment: Speci men Type: BLOOD SPECIMENOrdering Facility: [facility] Address: [address] [place] [address] Result Comment: For a guided interpretation of test results, please visit the Change in Procalcitonin Calculator, [email or web address]. Performed By: #### 2 777-1, 38958-0, 81898-1, 10722-8 ####[facility]ORATORYCLIA [id number] [address] OF [place] STAPH AUREUS PCRon S. aureus and MRSA panel DAYANA+probe (Nose) Normal Negative [facility] Comment on above: Order Comment: Speci men Type: SWAB OF INTERNAL NOSEOrdering Facility: [facility] Address: [address] [place] [address] Result Comment: Nega tive for Staphylococcus aureus by PCR.Negative for MRSA by PCR Performed By: #### S APCR ####[facility] LABORATORYCLIA [id number] [address] [place] THERAPY NTon 09-18-2023 THERAPY NT Normal [facility] THERAPY NT Normal [facility] TOX SCREEN ROUT URon 024 Amphetamines Confirm (U) [Mass/Vol] Negative Normal Negative [facility] Comment on above: Order Comment: Speci men Type: URINE SPECIMENOrdering Facility: [facility] Address: [address] [place] [address] Result Comment: Cuto ff threshold at 1000 ng/mL. Performed By: #### U TOX2 ####[facility]ORATORYCLIA [id number] [address] OF [facility] BARBITURATES, URINE Negative Normal Negative [facility] Comment on above: Order Comment: Speci men Type: URINE SPECIMENOrdering Facility: [facility] Address: [address] [place] [address] Result Comment: Cuto ff threshold at 200 ng/mL. Performed By: #### U TOX2 ####[facility] LABORATORYCLIA [id number] [place] [address] [place] BENZODIAZEPINES, UR Positive Abnormal Negative [facility] Comment on above: Order Comment: Speci men Type: URINE SPECIMENOrdering Facility: [facility] Address: [address] [place] [address] Result Comment: Cuto ff threshold at 200 ng/mL. Performed By: #### U TOX2 ####[facility]ORATORYCLIA [id number] [place] [address] [place] Cannabinoids Screen Ql (U) Negative Normal Negative [facility] Comment on above: Order Comment: Speci men Type: URINE SPECIMENOrdering Facility: [facility] Address: [address] [place] [address] Result Comment: Cuto ff threshold at 50 ng/mL. Performed By: #### U TOX2 ####[facility]ORATORYCLIA [id number] [address] [place] Cocaine Ql (U) Negative Normal Negative [facility] Comment on above: Order Comment: Speci men Type: URINE SPECIMENOrdering Facility: [facility] Address: [address] [place] [address] Result Comment: Cuto ff threshold at 300 ng/mL. Performed By: #### U TOX2 ####[facility] LABORATORYCLIA [id number] [address] Ethanol (U) [Mass/Vol] <11 Normal <11 [facility] Comment on above: Order Comment: Speci men Type: URINE SPECIMENOrdering Facility: [facility] Address: [address] [place] [address] Performed By: #### U TOX2 ####[facility] LABORATORYCLIA [id number] [address] Opiates Screen Ql (U) Negative Normal Negative [facility] Comment on above: Order Comment: Speci men Type: URINE SPECIMENOrdering Facility: [facility] Address: [address] [place] [address] Result Comment: Cuto ff threshold at 300 ng/mL. Performed By: #### U TOX2 ####[facility]ORATORYCLIA [id number] [address] oxyCODONE cutoff Screen (U) [Mass/Vol] Negative Normal Negative [facility] Comment on above: Order Comment: Speci men Type: URINE SPECIMENOrdering Facility: [facility] Address: [address] [place] [address] Result Comment: Cuto ff threshold at 100 ng/mL. Performed By: #### U TOX2 ####[facility] LABORATORYCLIA [id number] [address] Phencyclidine Ql (U) Negative Normal Negative [facility] Comment on above: Order Comment: Speci men Type: URINE SPECIMENOrdering Facility: [facility] Address: [address] [place] [address] Result Comment: Cuto ff threshold at 25 ng/mL. Performed By: #### U TOX2 ####[facility]ORATORYCLIA [id number] [address] [place] TSH SerPl-aCncon 09-18-2023 TSH Qn 0.866 m[IU]/L Normal 0.270-4.200 [facility] Comment on above: Order Comment: Speci men Type: BLOOD SPECIMENOrdering Facility: [facility] Address: [address] [place] [address] Performed By: #### 3 016-3, 29548-0, 00929-2, 88890-8, 2777-1 ####[facility]ORATORYCLIA [id number] [address] URINALYSIS, DIPSTICK ONLYon 09-18-2023 Bilirubin Ql (U) Negative Normal Negative [facility] Comment on above: Order Comment: Speci men Type: URINE SPECIMENOrdering Facility: [facility] Address: [address] [place] [address] Performed By: #### U A ####[facility]ORATORYCLIA [id number] [address] Clarity (Unsp spec) Clear Normal Clear [facility] Comment on above: Order Comment: Speci men Type: URINE SPECIMENOrdering Facility: [facility] Address: [address] [place] [address] Performed By: #### U A ####[facility]ORATORYCLIA [id number] [address] Color (U) Colorless Normal yellow [facility] Comment on above: Order Comment: Speci men Type: URINE SPECIMENOrdering Facility: [facility] Address: [address] [place] [address] Performed By: #### U A ####[facility]ORATORYCLIA [id number] [address] Glucose Test strip (U) [Mass/Vol] 4+ Abnormal Trace, Negative [facility] Comment on above: Order Comment: Speci men Type: URINE SPECIMENOrdering Facility: [facility] Address: [address] [place] [address] Performed By: #### U A ####[facility]ORATORYCLIA [id number] [address] Hemoglobin Ql (U) 1+ Abnormal Negative, Trace [facility] Comment on above: Order Comment: Speci men Type: URINE SPECIMENOrdering Facility: [facility] Address: [address] [place] [address] Performed By: #### U A ####[facility]ORATORYCLIA [id number] [address] STATES OF [facility] Ketones Ql (U) Negative Normal Negative, Trace [facility] Comment on above: Order Comment: Speci men Type: URINE SPECIMENOrdering Facility: [facility] Address: [address] [place] [address] Performed By: #### U A ####[facility]ORATORYCLIA [id number] [address] Leukocyte esterase Test strip Ql (U) 75 [place]/uL Abnormal Negative, 25 [place]/uL [facility] Comment on above: Order Comment: Speci men Type: URINE SPECIMENOrdering Facility: [facility] Address: [address] [place] [address] Performed By: #### U A ####[facility]ORATORYCLIA [id number] [address] STATES OF [facility] Nitrite Ql (U) Negative Normal Negative [facility] Comment on above: Order Comment: Speci men Type: URINE SPECIMENOrdering Facility: [facility] Address: [address] [place] [address] Performed By: #### U A ####[facility]ORATORYCLIA [id number] [place] [address] [place] pH (U) 6.5 [pH] Normal 5.0-8.0 [facility] Comment on above: Order Comment: Speci men Type: URINE SPECIMENOrdering Facility: [facility] Address: [address] [place] [address] Performed By: #### U A ####[facility]ATORYCLIA [id number] [address] [place] Protein (U) [Mass/Vol] 1+ Abnormal Trace, Negative [facility] Comment on above: Order Comment: Speci men Type: URINE SPECIMENOrdering Facility: [facility] Address: [address] [place] [address] Performed By: #### U A ####[facility]ORATORYCLIA [id number] [place] [id number] [place] Specific gravity (U) [Rel density] >1.040 High 1.005-1.030 [facility] Comment on above: Order Comment: Speci men Type: URINE SPECIMENOrdering Facility: [facility] Address: [address] [place] [address] Performed By: #### U A ####[facility]ATORYCLIA [id number] [address] Urobilinogen Ql (U) Normal Normal Normal [facility] Comment on above: Order Comment: Speci men Type: URINE SPECIMENOrdering Facility: [facility] Address: [address] [place] [address] Performed By: #### U A ####[facility]ORATORYCLIA [id number] [address] [place] XR ABDOMEN 1V SUPINEon 09-17 XR ABDOMEN 1V SUPINE Normal [facility] XR CHEST 1V FRONTALon 2023 XR CHEST 1V FRONTAL Normal [facility] aPTT PPPon 09-18-2023 aPTT Coag (PPP) [Time] 28.5 s Normal 23.0-32.4 [facility] Comment on above: Order Comment: Speci men Type: BLOOD SPECIMENOrdering Facility: [facility] Address: [address] [place] [address] Performed By: #### 3 4528-0, 42856-5 ####[facility]ORATORYCLIA [id number] [address] Absolute lymphocyte countOrd ered By: Richmond Phoenix on 09-17-2023 Lymphocytes Auto (Unsp spec) [#/Vol] 3.98 10*3/uL 0.83-4.51 [facility] Activated partial thrombopla stin time (aPTT) in platelet poor plasma by coagulation aOrdered By: Richmond Phoenix on 09-17-2023 aPTT Coag (PPP) [Time] 26.6 s 24.1-36.2 [facility] Automated lymphocyte count a s percentage of total leukocytesOrdered By: Richmond Quezadao on 09-17-2023 Lymphocytes/100 WBC Auto (Unsp spec) 29.7 % 19-41 [facility] Base excessOrdered By: Richmond Tamar yue on 09-17-2023 Base excess Calc (BldV) [Moles/Vol] -7 mmol/L -2-2 [facility] Basophil percentageOrdered B y: Richmond Phoenix on 09-17-2023 Basophil percentage 20 mmol/L [facility] Basophils/100 WBC (Bld) 96 % 95-99 [facility] Basophils/100 WBC (Bld) 0.4 % 0-1 [facility] Chloride [Moles/Vol] 98 mmol/L 98-107 [facility] Eosinophils/100 WBC (Bld) 1.0 % 0-5 [facility] Glucose [Mass/Vol] 352 mg/dL 74-106 [facility] Comment on above: Glucose result great er than or equal to 200 mg/dLsuggests DIABETES MELLITUS per A.D.A. criteria. Hemoglobin (Bld) [Mass/Vol] 14.1 g/dL 12.0-15.0 [facility] Monocytes/100 WBC (Bld) 2.2 % 0-10 [facility] Neutrophils (Bld) [#/Vol] 8.6 10*3/uL 2.0-7.7 [facility] Neutrophils/100 WBC (Bld) 64.2 % 47-70 [facility] Potassium [Moles/Vol] 3.6 mmol/L 3.5-5.1 [facility] Sodium [Moles/Vol] 136 mmol/L 136-145 [facility] Triglyceride [Mass/Vol] 404 mg/dL <199 [facility] Comment on above: The drugs N-Acetylcy steine and Metamizole may falsely depress this assay. TRIGLYCERIDE IS GREATER THAN 400 mg/dL. LDL RESULT IS INVALID AND WILL NOT BE REPORTED.Serum Triglycerides Reference Interval Normal <150 mg/dL Borderline high 150 - 199 mg/dL High 200 - 499 mg/dL Very High > or = 500 mg/dL WBC (Bld) [#/Vol] 13.4 10*3/uL 4.4-11.0 [facility]CR[facility] ([facility] -- REJI OLIVA ([id number]) 1960 F Date Time Provider Department 09/17/23 YUE [facility]INGH[place] CCT During your visit today, we recorded the following information about you: Yue Bingham APRN.HOME SERVICE TECHNICIAN 09/18/2023 12:35 AM Signed CRITICAL CARE TRANSPORT MEDICAL CONTROL CONSULT NOTE Patient Name: Reji Oliva Service Date: September 17, 2023 Referring Facility: [facility] Accepting Facility: REASON FOR TRANSPORT: Specialty services REASON FOR CONSULT: blood pressure management and goals of care in transport CCT MEDICAL CONTROL CONSULT SUMMARY: History, physical exam findings, and available background patient information from [facility] Transport Nurse were reviewed at the time of consult. Pertinent additional information was reviewed as follows: Epic Records In brief, Reji Oliva is a 63 year old female with an unknown history at time of consult, who presented to [facility] for evaluation of headache, left facial [...] and read back via telephone with [facility] Transport lance crewmember, Sonali Dewitt RN SIGNATURE: Yue Bingham APRN.AKBAR Acute Care Nurse Practitioner Critical Care Transport Allergies As of Date: 09/17/2023 Noted Allergy Reaction FLEXERIL (CYCLOBENZAPRINE) 09/20/2021 14 - Other: See Comments Comments: Hallucinations Date Reviewed: 09/17/2023 Reviewed by: Janelle Coon APRN.AKBAR - Fully Assessed Reason for Visit: Critical [...] [E11.9] 01/03/20 (more content not included)... Normal [facility] CONSULT PROGon 09-17-2023 CONSULT PROG Normal [facility] Determination of erythrocyte mean corpuscular volume (MCV)Ordered By: Richmond Phoenix on 09-17-2023 MCV (RBC) [Entitic vol] 78.9 fL 81-99 [facility] Erythrocyte distribution wid th ratioOrdered By: Richmond Phoenix on 09-17-2023 Erythrocyte distribution width (RBC) [Ratio] 13.2 % 11.6-14.6 [facility] Erythrocyte distribution wid th standard deviationOrdered By: Richmond Phoenix on 09-17-2023 Erythrocyte distribution width (RBC) [Entitic vol] 37.5 fL 35.1-43.9 [facility] Hematocrit Auto (Bld) [Volum e fraction]Ordered By: Richmond Phoenix on 09-17-2023 Hematocrit (Bld) [Volume fraction] 43.3 % 37-47 [facility] Immature granulocytes/100 WB C Auto (Bld)Ordered By: Richmondrich Phoenix on 09-17-2023 Immature granulocytes/100 WBC (Bld) 2.500 % 0.0-0.9 [facility] Comment on above: IG% - Immature Granu locytes (promyelocytes, myelocytes and metamyelocytes) > 1% indicates that a LEFT SHIFT is Present. Laboratory - Chemistry and C hemistry - challengeOrdered By: Richmondrich Phoenix on 09-17-2023 CK [Catalytic activity/Vol] 65 U/L 26-192 [facility] CO2 [Moles/Vol] 15.0 mmol/L 21.0-32.0 [facility] Urea nitrogen/Creatinine [Mass ratio] 8.6 mg/mg 10-20 [facility] Laboratory - CoagulationOrde red By: Richmond Phoenix on 09-17-2023 INR Coag (Bld) [Relative time] 1.0 {INR} [facility] PT Coag (PPP) [Time] 13.5 s 11.7-14.9 [facility] Laboratory - Hematology and Cell countsOrdered By: Richmond Phoenix on 09-17-2023 MCH (RBC) [Entitic mass] 25.7 pg 27.0-32.0 [facility] MCHC (RBC) [Mass/Vol] 32.6 g/dL 32-36 [facility] Nucleated RBC/100 WBC (Bld) [Ratio] 0 % 0-5 [facility] Platelet mean volume (Bld) [Entitic vol] 9.5 fL 6.2-12.0 [facility] Platelets (Bld) [#/Vol] 276 10*3/uL 150-450 [facility] Measurement, pHOrdered By: Enid Phoenix on 09-17-2023 pH (Unsp spec) 7.35 [pH] 7.35-7.45 [facility] No Panel InformationOrdered By: Richmond Phoenix on 09-17-2023 Arterial Blood Partial Pressure CO2 34.2 mmHg 35-45 [facility] Arterial Blood Partial Pressure O2 87 mmHG 75-100 [facility] Bedside Blood Gas PEEP 5 [facility] Blood Gas Bicarbonate Actual 18.8 mmol/L 22-26 [facility] Blood Gas Oxygen Percent 30.0 [facility] Blood Gas Respiration Rate 14 [facility] Blood Gas Sample Site R Brach [facility] Blood Gas Specimen Type ART [facility] Blood Gas Tidal Volume 450.0 mL [facility] Blood Gas Vent Mode AC [facility] Oxygen Delivery Device Adult Vent [facility] Estimated Creatinine Clearance Calc 36.25 ml/min [facility] Estimated GFR (MDRD) Amer 54 mL/min >60 [facility] Comment on above: GFR Calc Estimated GFR (MDRD) Non-Af Amer 44 mL/min >60 [facility] Comment on above: Non- GFR Calc Troponin I High Sensitivity 32 pg/mL 3.0-54.0 [facility] Comment on above: Please Note: New [place] t Units and Gender Specific Reference Ranges. For more information see Policy Stat Procedure [place] High Sensitivity Troponin (TNIH) and attachments. RBC Auto (Bld) [#/Vol]Ordere d By: Richmond Phoenix on 09-17-2023 RBC (Bld) [#/Vol] 5.49 10*6/uL 4.2-5.4 [facility] Serum or plasma calcium nya urement (mass/volume)Ordered By: Richmond Phoenix on 09-17-2023 Calcium [Mass/Vol] 9.9 mg/dL 8.5-10.1 [facility] Serum or plasma creatinine m easurement (mass/volume)Ordered By: Richmond Phoenix on 09-17-2023 Creatinine [Mass/Vol] 1.28 mg/dL 0.55-1.02 [facility] Comment on above: The validity of the calculated GFR & GFRAA in patients over 70 years has not been determined. Clinical correlation is essential. Serum or plasma urea nitroge n measurement (mass/volume)Ordered By: Richmond Phoenix on 09-17-2023 Urea nitrogen [Mass/Vol] 11 mg/dL 7-18 [facility] Thin prep Papanicolaou smear with manual screeningOrdered By: Richmond Phoenix on 09-17-2023 Thin prep Papanicolaou smear with manual screening 15 [facility] ANES POSTPROC EVALon 023 ANES POSTPROC EVAL Normal [facility] ANES PRE-OPon 04-01-2023 ANES PRE-OP Normal [facility] OPERATIVE NOon 04-01-2023 OPERATIVE NO Normal [facility] SURGICAL PATHOLOGYon 023 CASE REPORT Normal [facility] Comment on above: Order Comment: Speci men Type: TISSUE SPECIMENOrdering Facility: [facility] Address: [address] [place] [address] Result Comment: Surg ical Pathology Report Case: [id number] Provider: Henri Dickinson MD Collected: 04/01/2023 01:19 PMOrdering Location: [facility] Received: 04/02/2023 07:01 AMPathologist: Doug Damon, DOSpecimen: UTERUS, CERVIX, BILATERAL FALLOPIAN TUBES, UTERUS, CERVIX & BILATERAL FALLOPIAN TUBES Performed By: #### S ####[facility]ORATORYIA [id number] [address] [place] CLINICAL HISTORY Normal [facility] Comment on above: Order Comment: Speci men Type: TISSUE SPECIMENOrdering Facility: [facility] Address: [address] [place] [address] Result Comment: Pre- op diagnosis:Incomplete uterovaginal prolapse [N81.2]Rectocele [N81.6]Cystocele, midline [N81.11]Female stress incontinence [N39.3] Performed By: #### S ####[facility]ORATORYIA [id number] [address] [place] FINAL DIAGNOSIS Normal [facility] Comment on above: Order Comment: Speci men Type: TISSUE SPECIMENOrdering Facility: [facility] Address: [address] [place] [address] Result Comment: A. 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 Performed By: #### S ####[facility]ORATORYCLIA [id number] [address] [place] FINAL PERFORMING LAB Normal [facility] Comment on above: Order Comment: Speci men Type: TISSUE SPECIMENOrdering Facility: [facility] Address: [address] [place] [address] Result Comment: Diag nostic interpretation performed at [facility], [address] [place] [address] CLIA# [id number] Director: Logn Rosenbaum M.D. Performed By: #### S ####[facility]ORATORYCLIA [id number] [address] GROSS DESCRIPTION Normal [facility] Comment on above: Order Comment: Speci men Type: TISSUE SPECIMENOrdering Facility: [facility] Address: [address] [place] [address] Result Comment: A. U TERUS, CERVIX, BILATERAL FALLOPIAN TUBESReceived in formalin labeled uterus, cervix, bilateral fallopian tubes is a uterus with attached cervix and [...] cysts are identified. The lumen is unremarkable. Lopper sections are submitted as follows:A1: Anterior cervix, 12:00A2: Posterior cervix, 6:00A3: Anterior uterine wall, full-thicknessA4: Posterior uterine wall, full-thicknessA5: Intramural noduleA6: Detached fallopian tube #1 fimbriated end bisected and mid cross-sectionsA7: Detached fallopian tube #2 fimbriated end bisected and mid cross-sections Gross examination performed at [facility], [address] [place] [address] CLIA#[id number] April 02, 2023 10:26 AM Performed By: #### S ####[facility]ORATORYCLIA [id number] [place] [address] [place] Bacteria Ur Culton 3 Bacteria identified Cx Nom (U) CULTURE, URINE: <10,000 CFU/ml Normal Urogenital Maria Del Rosario Normal [facility] Comment on above: Performed By: #### 6 30-4 ####[facility]ORATORYCLIA [id number] [place] [address] [place] Basic metabolic 2000 panelon 03-25-2023 Anion gap [Moles/Vol] 11 mmol/L Normal 9-18 [facility] Comment on above: Order Comment: Speci men Type: BLOOD SPECIMENOrdering Facility: [facility] Address: [address] [place] [place] [address] Performed By: #### 2 4321-2 ####[facility]ORATORYCLIA [id number] [place] [address] [place] Calcium [Mass/Vol] 9.6 mg/dL Normal 8.5-10.2 [facility] Comment on above: Order Comment: Speci men Type: BLOOD SPECIMENOrdering Facility: [facility] Address: [address] [place] [address] Performed By: #### 2 4321-2 ####[facility]ORATORYCLIA [id number] [address] OF [place] Chloride [Moles/Vol] 101 mmol/L Normal 97-105 [facility] Comment on above: Order Comment: Speci men Type: BLOOD SPECIMENOrdering Facility: [facility] Address: [address] [place] [address] Performed By: #### 2 4321-2 ####[facility]ATORYCLIA [id number] [address] [place] CO2 [Moles/Vol] 28 mmol/L Normal 22-30 [facility] Comment on above: Order Comment: Speci men Type: BLOOD SPECIMENOrdering Facility: [facility] Address: [address] [place] [address] Performed By: #### 2 4321-2 ####[facility]ORATORYCLIA [id number] [address] OF [facility] Creatinine [Mass/Vol] 0.89 mg/dL Normal 0.58-0.96 [facility] Comment on above: Order Comment: Speci men Type: BLOOD SPECIMENOrdering Facility: [facility] Address: [address] [place] [address] Performed By: #### 2 4321-2 ####[facility]ORATORYCLIA [id number] [address] Creatinine and Glomerular filtration rate.predicted panel (S/P/Bld) 72 mL/min/1.73m??? Normal >=60 [facility] Comment on above: Order Comment: Speci men Type: BLOOD SPECIMENOrdering Facility: [facility] Address: [address] [place] [address] Result Comment: Swetha mated Glomerular Filtration Rate [...] actual GFR. Performed By: #### 2 4321-2 ####[facility]ORATORYCLIA [id number] [place] [address] [place] Glucose [Mass/Vol] 105 mg/dL High 74-99 [facility] Comment on above: Order Comment: Key albrecht Type: BLOOD SPECIMENOrdering Facility: [facility] Address: [address] [place] [address] Result Comment: The [place] Diabetes Association (ADA) provides guidance for cutoff [...] Standards of Medical Care in Diabetes 2016, [place] [employer]. Diabetes Care. 2016.39(Suppl 1). Performed By: #### 2 4321-2 ####[facility]ORATORYCLIA [id number] [place] [address] [place] Potassium [Moles/Vol] 3.7 mmol/L Normal 3.7-5.1 [facility] Comment on above: Order Comment: Key albrecht Type: BLOOD SPECIMENOrdering Facility: [facility] Address: [address] [place] [address] Performed By: #### 2 4321-2 ####[facility]ORATORYCLIA [id number] [place] [address] [place] Sodium [Moles/Vol] 140 mmol/L Normal 136-144 [facility] Comment on above: Order Comment: Key albrecht Type: BLOOD SPECIMENOrdering Facility: [facility] Address: [address] [place] [address] Performed By: #### 2 4321-2 ####[facility]ORATORYCLIA [id number] [place] [address] [place] Urea nitrogen [Mass/Vol] 17 mg/dL Normal 7-21 [facility] Comment on above: Order Comment: Speci men Type: BLOOD SPECIMENOrdering Facility: [facility] Address: [address] [place] [address] Performed By: #### 2 4321-2 ####[facility]ATORYCLIA [id number] [address] [place] CBC panel Auto (Bld)on 03-25 Erythrocyte distribution width (RBC) [Ratio] 13.9 % Normal 11.5-15.0 [facility] Comment on above: Order Comment: Speci men Type: BLOOD SPECIMENOrdering Facility: [facility] Address: [address] [place] [address] Performed By: #### 5 8410-2 ####[facility]ORATORYCLIA [id number] [address] STATES [facility] Hematocrit (Bld) [Volume fraction] 38.6 % Normal 36.0-46.0 [facility] Comment on above: Order Comment: Speci men Type: BLOOD SPECIMENOrdering Facility: [facility] Address: [address] [place] [address] Performed By: #### 5 8410-2 ####[facility]ORATORYCLIA [id number] [address] STATES [facility] Hemoglobin (Bld) [Mass/Vol] 12.4 g/dL Normal 11.5-15.5 [facility] Comment on above: Order Comment: Speci men Type: BLOOD SPECIMENOrdering Facility: [facility] Address: [address] [place] [address] Performed By: #### 5 8410-2 ####[facility]ORATORYCLIA [id number] [address] STATES [facility] MCH (RBC) [Entitic mass] 25.7 pg Low 26.0-34.0 [facility] Comment on above: Order Comment: Speci men Type: BLOOD SPECIMENOrdering Facility: [facility] Address: [address] [place] [address] Performed By: #### 5 8410-2 ####[facility]ORATORYCLIA [id number] [address] STATES [facility] MCHC (RBC) [Mass/Vol] 32.1 g/dL Normal 30.5-36.0 [facility] Comment on above: Order Comment: Speci men Type: BLOOD SPECIMENOrdering Facility: [facility] Address: [address] [place] [address] Performed By: #### 5 8410-2 ####[facility]ORATORYCLIA [id number] [address] STATES OF [facility] MCV (RBC) [Entitic vol] 79.9 fL Low 80.0-100.0 [facility] Comment on above: Order Comment: Speci men Type: BLOOD SPECIMENOrdering Facility: [facility] Address: [address] [place] [address] Performed By: #### 5 8410-2 ####[facility]ORATORYCLIA [id number] [address] Nucleated RBC (Bld) [#/Vol] 10*3/uL Normal <0.01 [facility] Comment on above: Order Comment: Speci men Type: BLOOD SPECIMENOrdering Facility: [facility] Address: [address] [place] [address] Performed By: #### 5 8410-2 ####[facility]ORATORYCLIA [id number] [address] Platelet mean volume (Bld) [Entitic vol] 10.7 fL Normal 9.0-12.7 [facility] Comment on above: Order Comment: Speci men Type: BLOOD SPECIMENOrdering Facility: [facility] Address: [address] [place] [address] Performed By: #### 5 8410-2 ####[facility]ORATORYCLIA [id number] [address] [place] Platelets (Bld) [#/Vol] 244 10*3/uL Normal 150-400 [facility] Comment on above: Order Comment: Speci men Type: BLOOD SPECIMENOrdering Facility: [facility] Address: [address] [place] [address] Performed By: #### 5 8410-2 ####[facility]ORATORYCLIA [id number] [address] OF [facility] RBC (Bld) [#/Vol] 4.83 10*6/uL Normal 3.90-5.20 [facility] Comment on above: Order Comment: Speci men Type: BLOOD SPECIMENOrdering Facility: [facility] Address: [address] [place] [address] Performed By: #### 5 8410-2 ####[facility]ORATORYCLIA [id number] [address] WBC (Bld) [#/Vol] 8.21 10*3/uL Normal 3.70-11.00 [facility] Comment on above: Order Comment: Speci men Type: BLOOD SPECIMENOrdering Facility: [facility] Address: [address] [place] [address] Performed By: #### 5 8410-2 ####[facility]ORATORYCLIA [id number] [address] CONFIRM BLOOD TYPEon 023 ABO O Normal [facility] Comment on above: Order Comment: Speci men Type: BLOOD SPECIMENOrdering Facility: [facility] Address: [address] [place] [address] Performed By: #### C ONABO ####[facility] BLOOD BANKCLIA [id number] [address] Rh Nom (Bld) Negative Normal [facility] Comment on above: Order Comment: Speci men Type: BLOOD SPECIMENOrdering Facility: [facility] Address: [address] [place] [address] Performed By: #### C ONABO ####[facility] BLOOD BANKCLIA [id number] [address] [place] HISTORY PHYSICALon 3 HISTORY PHYSICAL Normal [facility] TYPE AND SCREEN,30 DAYon ABO O Normal [facility] Comment on above: Order Comment: Speci men Type: BLOOD SPECIMENOrdering Facility: [facility] Address: [address] [place] [address] Performed By: #### T [id number] ####[facility] BLOOD BANKCLIA [id number] [place] [address] [place] HISTORICAL AB SCR STATUS Negative Normal [facility] Comment on above: Order Comment: Speci men Type: BLOOD SPECIMENOrdering Facility: [facility] Address: [address] [place] [address] Performed By: #### T [id number] ####[facility] BLOOD BANKCLIA [id number] [place] [address] [place] Rh Nom (Bld) Negative Normal [facility] Comment on above: Order Comment: Speci men Type: BLOOD SPECIMENOrdering Facility: [facility] Address: [address] [place] [address] Performed By: #### T [id number] ####[facility] BLOOD BANKCLIA [id number] [address] [place] Culture, urineOrdered By: Dr Murtaza Dickinson on 12-13-2022 Bacteria identified Cx Nom (U) Positive [facility] Basophil percentageOrdered B y: Dr. Dickinson on 12-11-2022 Basophil percentage 50-100 SEEN /hpf 0-5 [facility] Bilirubin Test strip Ql (U)O rdered By: Dr. Dickinson on 12-11-2022 Bilirubin Ql (U) Negative Negative [facility] Ketones Test strip Ql (U)Ord ered By: Dr. Dickinson on 12-11-2022 Ketones Ql (U) Negative Negative [facility] Mucus LM Ql (Urine sed)Order ed By: Dr. Dickinson on 12-11-2022 Mucus Ql (Urine sed) 1+ /hpf [facility] Nitrite Test strip Ql (U)Ord ered By: Dr. Dickinson on 12-11-2022 Nitrite Ql (U) Negative Negative [facility] Protein Test strip Ql (U)Ord ered By: Dr. Dickinson on 12-11-2022 Protein Ql (U) 100 mg/dl Negative [facility] Squamous epithelial cells de tection in urine sediment by light microscopyOrdered By: Dr. Dickinson on 12-11-2022 Epithelial cells.squamous LM Ql (Urine sed) 0-5 SEEN /hpf 5-10 [facility] Urine blood detectionOrdered By: Dr. Dickinson on 12-11-2022 RBC Ql (U) 50 /ul Negative [facility] RBC Ql (U) 0-5 SEEN /hpf 0-5 [facility] Urine clarityOrdered By: Dr. Dickinson on 12-11-2022 Clarity (U) Cloudy Clear [facility] Urine color determinationOrd ered By: Dr. Dickinson on 12-11-2022 Color (U) Yellow Yellow [facility] Urine glucose detectionOrder ed By: Dr. Dickinson on 12-11-2022 Glucose Ql (U) Normal mg/dl Normal [facility] Urine leukocyte esterase det ection by dipstickOrdered By: Dr. Dickinson on 12-11-2022 Leukocyte esterase Test strip Ql (U) 500 /ul Negative [facility] Urine pHOrdered By: Dr. Rosina rojas on 12-11-2022 pH (U) 6.0 [pH] 5.0 - 8.0 [facility] Urine sediment bacteria coun t by microscopy (number/high power field)Ordered By: Dr. Dickinson on 12-11-2022 Bacteria LM.HPF (Urine sed) [#/Area] 1 /[HPF] None Seen [facility] Urine specific gravity measu rementOrdered By: Dr. Dickinson on 12-11-2022 Specific gravity (U) [Rel density] 1.015 1.002-1.030 [facility] Urobilinogen Auto test strip Ql (U)Ordered By: Dr. Dickinson on 12-11-2022 Urobilinogen Ql (U) Normal mg/dl Normal [facility] Basophil percentageOrdered B y: Dr. Levy on 11-08-2022 Chloride [Moles/Vol] 107 mmol/L 98-107 [facility] Cholesterol [Mass/Vol] 124 mg/dL <200 [facility] Comment on above: <200 mg/dL Desirable 200-240 mg/dL Borderline >240 mg/dL High Risk Glucose [Mass/Vol] 123 mg/dL 74-106 [facility] Comment on above: Fasting Glucose resu lt from 100 to 125 mg/dL suggests IMPAIRED HOMEOSTASIS per A.D.A. criteria. Potassium [Moles/Vol] 4.0 mmol/L 3.5-5.1 [facility] Sodium [Moles/Vol] 140 mmol/L 136-145 [facility] Triglyceride [Mass/Vol] 221 mg/dL <199 [facility] Comment on above: The drugs N-Acetylcy steine and Metamizole may falsely depress this assay.Serum Triglycerides Reference Interval Normal <150 mg/dL Borderline high 150 - 199 mg/dL High 200 - 499 mg/dL Very High > or = 500 mg/dL Laboratory - Chemistry and C hemistry - challengeOrdered By: Dr. Levy on 11-08-2022 CO2 [Moles/Vol] 28.0 mmol/L 21.0-32.0 [facility] Urea nitrogen/Creatinine [Mass ratio] 25.6 mg/mg 10-20 [facility] No Panel InformationOrdered By: Dr. Levy on 11-08-2022 Estimated GFR (MDRD) Amer 77 mL/min >60 [facility] Comment on above: GFR Calc Estimated GFR (MDRD) Non-Af Amer 64 mL/min >60 [facility] Comment on above: Non- GFR Calc Serum or plasma calcium nya urement (mass/volume)Ordered By: Dr. Levy on 11-08-2022 Calcium [Mass/Vol] 9.0 mg/dL 8.5-10.1 [facility] Serum or plasma cholesterol in HDL measurement (mass/volume)Ordered By: Dr. Levy on 11-08-2022 Cholesterol in HDL [Mass/Vol] 35 mg/dL >40 [facility] Comment on above: The drugs N-Acetylcy steine and Metamizole may falsely depress this assay. Reference Range HDL <40 mg/dL Low HDL Cholesterol HDL >or= 60 mg/dL High HDL Cholesterol Serum or plasma cholesterol in VLDL measurement (mass/volume)Ordered By: Dr. Levy on 11-08-2022 Cholesterol in VLDL [Mass/Vol] 44 mg/dL 5-40 [facility] Serum or plasma creatinine m easurement (mass/volume)Ordered By: Dr. Levy on 11-08-2022 Creatinine [Mass/Vol] 0.94 mg/dL 0.55-1.02 [facility] Comment on above: The validity of the calculated GFR & GFRAA in patients over 70 years has not been determined. Clinical correlation is essential. Serum or plasma low density lipoprotein (LDL) cholesterol measurement (mass/volume)Ordered By: Dr. Levy on 11-08-2022 Cholesterol in LDL [Mass/Vol] 45 mg/dL 0-130 [facility] Serum or plasma urea nitroge n measurement (mass/volume)Ordered By: Dr. Levy on 11-08-2022 Urea nitrogen [Mass/Vol] 24 mg/dL 7-18 [facility] Thin prep Papanicolaou smear with manual screeningOrdered By: Dr. Levy on 11-08-2022 Thin prep Papanicolaou smear with manual screening 5 5-15 [facility] Whole blood hemoglobin A1c/t otal hemoglobin ratio (mass fraction)Ordered By: Dr. Levy on 11-08-2022 HbA1c (Bld) [Mass fraction] 6.7 % 3.8-5.6 [facility] Comment on above: Normal < 5.7 % Predi abetic 5.7 - 6.4 % Diabetic >or= 6.5 % Please note range changes. Culture, urineOrdered By: Dr Murtaza Levy on 11-04-2022 Bacteria identified Cx Nom (U) GNR Poss Pseudomonas sp [facility] Basophil percentageOrdered B y: Dr. Levy on 11-02-2022 Basophil percentage >100 SEEN /hpf 0-5 [facility] Bilirubin Test strip Ql (U)O rdered By: Dr. Levy on 11-02-2022 Bilirubin Ql (U) Negative Negative [facility] Ketones Test strip Ql (U)Ord ered By: Dr. Levy on 11-02-2022 Ketones Ql (U) Negative Negative [facility] Mucus LM Ql (Urine sed)Order ed By: Dr. Levy on 11-02-2022 Mucus Ql (Urine sed) 0 SEEN /hpf [facility] Nitrite Test strip Ql (U)Ord ered By: Dr. Levy on 11-02-2022 Nitrite Ql (U) Positive Negative [facility] Protein Test strip Ql (U)Ord ered By: Dr. Levy on 11-02-2022 Protein Ql (U) 500 mg/dl Negative [facility] Squamous epithelial cells de tection in urine sediment by light microscopyOrdered By: Dr. Levy on 11-02-2022 Epithelial cells.squamous LM Ql (Urine sed) 0-5 SEEN /hpf 5-10 [facility] Urine blood detectionOrdered By: Dr. Levy on 11-02-2022 RBC Ql (U) 250 /ul Negative [facility] RBC Ql (U) 50-100 SEEN /hpf 0-5 [facility] Urine clarityOrdered By: Dr. Levy on 11-02-2022 Clarity (U) Cloudy Clear [facility] Urine color determinationOrd ered By: Dr. Levy on 11-02-2022 Color (U) Yellow Yellow [facility] Urine glucose detectionOrder ed By: Dr. Levy on 11-02-2022 Glucose Ql (U) Normal mg/dl Normal [facility] Urine leukocyte esterase det ection by dipstickOrdered By: Dr. Levy on 11-02-2022 Leukocyte esterase Test strip Ql (U) 500 /ul Negative [facility] Urine pHOrdered By: Dr. Sunita angel on 11-02-2022 pH (U) 6.0 [pH] 5.0 - 8.0 [facility] Urine sediment bacteria coun t by microscopy (number/high power field)Ordered By: Dr. Levy on 11-02-2022 Bacteria LM.HPF (Urine sed) [#/Area] 0 /[HPF] None Seen [facility] Urine specific gravity measu rementOrdered By: Dr. Levy on 11-02-2022 Specific gravity (U) [Rel density] 1.015 1.002-1.030 [facility] Urobilinogen Auto test strip Ql (U)Ordered By: Dr. Levy on 11-02-2022 Urobilinogen Ql (U) Normal mg/dl Normal [facility] Culture, urineOrdered By: Dr Murtaza Levy on 09-22-2022 Bacteria identified Cx Nom (U) Klebsiella pneumoniae sp pneum [facility] Basophil percentageOrdered B y: Dr. Levy on 08-09-2022 Bilirubin [Mass/Vol] 0.50 mg/dL 0.20-1.00 [facility] Comment on above: For patients on eltr ombopag therapy, use of [place] TBIL is not recommended. Chloride [Moles/Vol] 103 mmol/L 98-107 [facility] Glucose [Mass/Vol] 145 mg/dL 74-106 [facility] Comment on above: Fasting Glucose resu lt greater than or equal to 126 mg/dL suggests DIABETES MELLITUS per A.D.A. criteria. Potassium [Moles/Vol] 4.1 mmol/L 3.5-5.1 [facility] Protein [Mass/Vol] 7.9 g/dL 6.4-8.2 [facility] Sodium [Moles/Vol] 140 mmol/L 136-145 [facility] Laboratory - Chemistry and C hemistry - challengeOrdered By: Dr. Levy on 08-09-2022 ALP [Catalytic activity/Vol] 103 U/L 45-117 [facility] ALT [Catalytic activity/Vol] 19 U/L 13-56 [facility] CO2 [Moles/Vol] 28.0 mmol/L 21.0-32.0 [facility] Free T4 [Mass/Vol] 1.01 ng/dL 0.76-1.46 [facility] Globulin (S) [Mass/Vol] 4.1 g/dL 2.2-4.2 [facility] Urea nitrogen/Creatinine [Mass ratio] 20.7 mg/mg 10-20 [facility] No Panel InformationOrdered By: Dr. Levy on 08-09-2022 Estimated GFR (MDRD) Amer 64 mL/min >60 [facility] Comment on above: GFR Calc Estimated GFR (MDRD) Non-Af Amer 53 mL/min >60 [facility] Comment on above: Non- GFR Calc Thyroid Stimulating Hormone (TSH) 1.05 uIU/mL 0.358-3.74 [facility] Vitamin D 25-Hydroxy 45.7 ng/mL [facility] Comment on above: Vitamin D 25(OH) Sta tus Range Deficiency <20 ng/mL (50nmol/L) Insufficiency 20 - 30 ng/mL (50 - 75 nmol/L) Sufficiency 30 - 100 ng/mL (75 - 250 nmol/L) Toxicity >100 ng/mL (>250 nmol/L) Serum or plasma albumin nya urement (mass/volume)Ordered By: Dr. Levy on 08-09-2022 Albumin [Mass/Vol] 3.8 g/dL 3.2-5.0 [facility] Serum or plasma albumin/glob ulin mass ratioOrdered By: Dr. Levy on 08-09-2022 Albumin/Globulin [Mass ratio] 0.9 {ratio} 0.9-2.4 [facility] Serum or plasma calcium yna urement (mass/volume)Ordered By: Dr. Levy on 08-09-2022 Calcium [Mass/Vol] 9.6 mg/dL 8.5-10.1 [facility] Serum or plasma creatinine m easurement (mass/volume)Ordered By: Dr. Levy on 08-09-2022 Creatinine [Mass/Vol] 1.11 mg/dL 0.55-1.02 [facility] Comment on above: The validity of the calculated GFR & GFRAA in patients over 70 years has not been determined. Clinical correlation is essential. Serum or plasma urea nitroge n measurement (mass/volume)Ordered By: Dr. Levy on 08-09-2022 Urea nitrogen [Mass/Vol] 23 mg/dL 7-18 [facility] Thin prep Papanicolaou smear with manual screeningOrdered By: Dr. Levy on 08-09-2022 Thin prep Papanicolaou smear with manual screening 20 U/L 15-37 [facility] Thin prep Papanicolaou smear with manual screening 9 5-15 [facility] UA DIP, URINE (POC)on 2021 BILIRUBIN UA (POCT) Negative Negative [facility] CLARITY UA (POCT) Cloudy [facility] COLOR UA (POCT) Yellow [facility] GLUCOSE UA (POCT) Negative Negative mg/dL [facility] HEMOGLOBIN/BLOOD UA (POCT) Moderate Abnormal Negative [facility] KETONE UA (POCT) Negative Negative mg/dL [facility] LEUKOCYTES UA (POCT) Moderate Abnormal Negative [facility] NITRITE UA (POCT) Positive Abnormal Negative [facility] PH UA (POCT) 5.5 4.5 - 8.0 [facility] Protein Ql (U) 100 mg/dL Abnormal Negative mg/dL [facility] SPECIFIC GRAVITY UA (POCT) 1.025 1.005 - 1.030 [facility] UROBILINOGEN UA (POCT) 0.2 E.U./dL Normal E.U./dL [facility] UA DIP, URINE (POC)on 2021 BILIRUBIN UA (POCT) Negative Negative [facility] CLARITY UA (POCT) Cloudy [facility] COLOR UA (POCT) Other [facility] GLUCOSE UA (POCT) 500 mg/dL Abnormal Negative mg/dL [facility] HEMOGLOBIN/BLOOD UA (POCT) Moderate Abnormal Negative [facility] KETONE UA (POCT) Negative Negative mg/dL [facility] LEUKOCYTES UA (POCT) Moderate Abnormal Negative [facility] NITRITE UA (POCT) Positive Abnormal Negative [facility] PH UA (POCT) 5.5 4.5 - 8.0 [facility] Protein Ql (U) 30 mg/dL Abnormal Negative mg/dL [facility] SPECIFIC GRAVITY UA (POCT) 1.020 1.005 - 1.030 [facility] UROBILINOGEN UA (POCT) 0.2 E.U./dL Normal E.U./dL [facility] Laboratory - Chemistry and C hemistry - challengeon 01-22-2022 Bilirubin Ql (U) Negative [facility] Work Phone: Glucose Ql (U) 1000 g/dL [facility] Work Phone: Ketones Ql (U) Small (15+) [facility] Work Phone: pH (U) 6.0 [pH] [facility] Work Phone: Specific gravity (U) [Rel density] 1.025 [facility] Work Phone: Urobilinogen (U) [Mass/Vol] Negative [facility] Work Phone: Laboratory - Hematology and Cell countson 01-22-2022 Hemoglobin Ql (U) Hemolyzed [facility] Work Phone: Laboratory - Specimen inform ationon 01-22-2022 Clarity (U) Turbid [facility] Work Phone: Color (U) YELLOW [facility] Work Phone: Laboratory - Urinalysison Nitrite Ql (U) Positive [facility] Work Phone: Protein Ql (U) 1+ [facility] Work Phone: No Panel Informationon 01-22 Urine Leukocytes Positive [facility] Work Phone: Urine Non-Hemolyzed Blood Large [facility] Work Phone: UA DIP, URINE (POC)on 2021 BILIRUBIN UA (POCT) Negative Negative [facility] CLARITY UA (POCT) Cloudy [facility] COLOR UA (POCT) Yellow [facility] GLUCOSE UA (POCT) 250 mg/dL Abnormal Negative mg/dL [facility] HEMOGLOBIN/BLOOD UA (POCT) Large Abnormal Negative [facility] KETONE UA (POCT) Trace Negative mg/dL [facility] LEUKOCYTES UA (POCT) Trace Abnormal Negative [facility] NITRITE UA (POCT) Negative Negative [facility] PH UA (POCT) 5.5 4.5 - 8.0 [facility] Protein Ql (U) 100 mg/dL Abnormal Negative mg/dL [facility] SPECIFIC GRAVITY UA (POCT) 1.025 1.005 - 1.030 [facility] UROBILINOGEN UA (POCT) 0.2 E.U./dL Normal E.U./dL [facility] Absolute lymphocyte counton 10-26-2021 Lymphocytes Auto (Unsp spec) [#/Vol] 1.59 10*3/uL 0.83-4.51 [facility] Work Phone: Basophil percentageon 2021 Basophils/100 WBC (Bld) 0.2 % 0-1 [facility] Work Phone: Bilirubin [Mass/Vol] 0.60 mg/dL 0.20-1.00 [facility] Work Phone: Comment on above: For patients on eltr ombopag therapy, use of [place] TBIL is not recommended. Chloride [Moles/Vol] 100 mmol/L 98-107 [facility] Work Phone: Eosinophils/100 WBC (Bld) 0.1 % 0-5 [facility] Work Phone: Glucose [Mass/Vol] 265 mg/dL 74-106 [facility] Work Phone: Comment on above: Glucose result great er than or equal to 200 mg/dLsuggests DIABETES MELLITUS per A.D.A. criteria. Neutrophils (Bld) [#/Vol] 11.7 10*3/uL 2.0-7.7 [facility] Work Phone: Neutrophils/100 WBC (Bld) 85.1 % 47-70 [facility] Work Phone: Potassium [Moles/Vol] 3.6 mmol/L 3.5-5.1 [facility] Work Phone: Protein [Mass/Vol] 8.2 g/dL 6.4-8.2 [facility] Work Phone: Sodium [Moles/Vol] 134 mmol/L 136-145 [facility] Work Phone: WBC (Bld) [#/Vol] 13.8 10*3/uL 4.4-11.0 [facility]: Basophil percentage 25-50 SEEN /hpf 0-5 [facility] Work Phone: Bilirubin Test strip Ql (U)o n 10-26-2021 Bilirubin Ql (U) Negative Negative [facility] Work Phone: [phone] Blood erythrocytes count (nu mber/volume)on 10-26-2021 RBC (Bld) [#/Vol] 4.98 10*6/uL 4.2-5.4 [facility] Work Phone: Blood hemoglobin measurement (mass/volume)on 10-26-2021 Hemoglobin (Bld) [Mass/Vol] 13.3 g/dL 12.0-15.0 [facility] Work Phone: Blood lymphocytes/100 leukoc yteson 10-26-2021 Lymphocytes/100 WBC (Bld) 11.5 % 19-41 [facility] Work Phone: Blood monocytes/100 leukocyt eson 10-26-2021 Monocytes/100 WBC (Bld) 2.6 % 0-10 [facility] Work Phone: Blood platelet mean volumeon 10-26-2021 Platelet mean volume (Bld) [Entitic vol] 10.3 fL 6.2-12.0 [facility] Work Phone: Culture, urineon 10-26-2021 Bacteria identified Cx Nom (U) Negative [facility] Work Phone: Determination of erythrocyte mean corpuscular volume (MCV)on 10-26-2021 MCV (RBC) [Entitic vol] 80.1 fL 81-99 [facility] Work Phone: Hematocrit Auto (Bld) [Volum e fraction]on 10-26-2021 Hematocrit (Bld) [Volume fraction] 39.9 % 37-47 [facility] Work Phone: Ketones Test strip Ql (U)on 10-26-2021 Ketones Ql (U) 5 mg/dl Negative [facility] Work Phone: Laboratory - Chemistry and C hemistry - challengeon 10-26-2021 ALP [Catalytic activity/Vol] 113 U/L 45-117 [facility] Work Phone: ALT [Catalytic activity/Vol] 19 U/L 13-56 [facility] Work Phone: CO2 [Moles/Vol] 28.0 mmol/L 21.0-32.0 [facility] Work Phone: Globulin (S) [Mass/Vol] 4.4 g/dL 2.2-4.2 [facility] Work Phone: Urea nitrogen/Creatinine [Mass ratio] 19.0 mg/mg 10-20 [facility] Work Phone: Laboratory - Hematology and Cell countson 10-26-2021 Erythrocyte distribution width (RBC) [Entitic vol] 36.2 fL 35.1-43.9 [facility] Work Phone: Erythrocyte distribution width (RBC) [Ratio] 12.8 % 11.6-14.6 [facility] Work Phone: Immature granulocytes/100 WBC (Bld) 0.500 % 0.0-0.9 [facility] Work Phone: Comment on above: IG% - Immature Granu locytes (promyelocytes, myelocytes and metamyelocytes) > 1% indicates that a LEFT SHIFT is Present. MCH (RBC) [Entitic mass] 26.7 pg 27.0-32.0 [facility] Work Phone: Nucleated RBC/100 WBC (Bld) [Ratio] 0 % 0-5 [facility] Work Phone: MCHC Auto (RBC) [Mass/Vol]on 10-26-2021 MCHC (RBC) [Mass/Vol] 33.3 g/dL 32-36 [facility] Work Phone: Mucus LM Ql (Urine sed)on Mucus Ql (Urine sed) 0 SEEN /hpf [facility] Work Phone: Nitrite Test strip Ql (U)on 10-26-2021 Nitrite Ql (U) Negative Negative [facility] Work Phone: No Panel Informationon 10-26 Estimated GFR (MDRD) Amer 58 mL/min >60 [facility] Work Phone: Comment on above: GFR Calc Estimated GFR (MDRD) Non-Af Amer 48 mL/min >60 [facility] Work Phone: Comment on above: Non- GFR Calc Platelets bldon 10-26-2021 Platelets (Bld) [#/Vol] 241 10*3/uL 150-450 [facility] Work Phone: Protein Test strip Ql (U)on 10-26-2021 Protein Ql (U) 500 mg/dl Negative [facility] Work Phone: Serum or plasma albumin nya urement (mass/volume)on 10-26-2021 Albumin [Mass/Vol] 3.8 g/dL 3.2-5.0 [facility] Work Phone: Serum or plasma albumin/glob ulin mass ratioon 10-26-2021 Albumin/Globulin [Mass ratio] 0.9 {ratio} 0.9-2.4 [facility] Work Phone: Serum or plasma calcium nay urement (mass/volume)on 10-26-2021 Calcium [Mass/Vol] 9.3 mg/dL 8.5-10.1 [facility] Work Phone: Serum or plasma creatinine m easurement (mass/volume)on 10-26-2021 Creatinine [Mass/Vol] 1.21 mg/dL 0.55-1.02 [facility] Work Phone: Comment on above: The validity of the calculated GFR & GFRAA in patients over 70 years has not been determined. Clinical correlation is essential. Serum or plasma urea nitroge n measurement (mass/volume)on 10-26-2021 Urea nitrogen [Mass/Vol] 23 mg/dL 7-18 [facility] Work Phone: Squamous epithelial cells de tection in urine sediment by light microscopyon 10-26-2021 Epithelial cells.squamous LM Ql (Urine sed) 0-5 SEEN /hpf 5-10 [facility] Work Phone: Thin prep Papanicolaou smear with manual screeningon 10-26-2021 Thin prep Papanicolaou smear with manual screening 16 U/L 15-37 [facility] Work Phone: Thin prep Papanicolaou smear with manual screening 6 5-15 [facility] Work Phone: Urine blood detectionon 09-30 RBC Ql (U) 250 /ul Negative [facility] Work Phone: RBC Ql (U) 25-50 SEEN /hpf 0-5 [facility] Work Phone: Urine clarityon 10-26-2021 Clarity (U) Cloudy Clear [facility] Work Phone: Urine color determinationon 10-26-2021 Color (U) Yellow Yellow [facility] Work Phone: Urine glucose detectionon Glucose Ql (U) 100 mg/dl Normal [facility] Work Phone: Urine leukocyte esterase det ection by dipstickon 10-26-2021 Leukocyte esterase Test strip Ql (U) 500 /ul Negative [facility] Work Phone: Urine pHon 10-26-2021 pH (U) 6.0 [pH] 5.0 - 8.0 [facility] Work Phone: Urine sediment bacteria coun t by microscopy (number/high power field)on 10-26-2021 Bacteria LM.HPF (Urine sed) [#/Area] 1 /[HPF] None Seen [facility] Work Phone: Urine specific gravity measu rementon 10-26-2021 Specific gravity (U) [Rel density] 1.020 1.002-1.030 [facility] Work Phone: Urobilinogen Auto test strip Ql (U)on 10-26-2021 Urobilinogen Ql (U) Normal mg/dl Normal [facility] Work Phone: UA DIP, URINE (POC)on 2021 BILIRUBIN UA (POCT) Negative Negative [facility] CLARITY UA (POCT) Clear [facility] COLOR UA (POCT) Yellow [facility] GLUCOSE UA (POCT) Negative Negative mg/dL [facility] HEMOGLOBIN/BLOOD UA (POCT) Large Abnormal Negative [facility] KETONE UA (POCT) Negative Negative mg/dL [facility] LEUKOCYTES UA (POCT) Small Abnormal Negative [facility] NITRITE UA (POCT) Negative Negative [facility] PH UA (POCT) 6.0 4.5 - 8.0 [facility] Protein Ql (U) >=300 Abnormal Negative mg/dL [facility] SPECIFIC GRAVITY UA (POCT) >=1.030 1.005 - 1.030 [facility] UROBILINOGEN UA (POCT) 0.2 E.U./dL Normal E.U./dL [facility] BILIRUBIN UA (POCT) Negative Negative [facility] CLARITY UA (POCT) Cloudy [facility] COLOR UA (POCT) Yellow [facility] GLUCOSE UA (POCT) Negative Negative mg/dL [facility] HEMOGLOBIN/BLOOD UA (POCT) Large Abnormal Negative [facility] [facility] KETONE UA (POCT) Negative Negative mg/dL [facility] LEUKOCYTES UA (POCT) Moderate Abnormal Negative [facility] NITRITE UA (POCT) Negative Negative [facility] PH UA (POCT) 5.5 4.5 - 8.0 [facility] Protein Ql (U) >=300 Abnormal Negative mg/dL [facility] SPECIFIC GRAVITY UA (POCT) 1.025 1.005 - 1.030 [facility] UROBILINOGEN UA (POCT) 0.2 E.U./dL Normal E.U./dL [facility] Provider Letter - Ambulatory on 03-13-2018 Protein mass conc Delfin MCCOLLUM, Laura Eddy MA Ace Soliz MD[address] [id number]/11/2018Mando ELLIS had the pleasure of meeting your patient, REJI Summersank you for allowing me to serve your patient. If you have any questions about this document, please contact this office at . Sincerely,Ace Soliz [facility] GeneralThe following document(s) were included in the letter:March 11, 2018 13:07:00 EDT - (03/11/2018) Endocrinology Normal [facility] Amb Office-Progress Notes-Pr ovideron 03-12-2018 Protein mass conc Patient: REG OLIVA RA Age: 57 years Sex: Female : 1960 Associated Diagnoses: None Author: HEYDI ARIAS MR, ACE Chief Complaint Uncontrolled Type 2 DM Visit Information Visit type: New patient evaluation. Referral source: NATALIE BONE MD. History of Present Illness Initial DM diagnosis 5-10 yrs Current regimen metformin 500mg qd + Toujeo 80 units qd ( has samples form PCP) + Humalog - not really taking - Only last [...] complicationsEyes - Neg Last eye exam - 2018Kidney - DeniesFeet/Neuropathy - DeniesMacrovascular complicationsHeart - DeniesPeripheral [...] Resolved.HTN (401.9): Resolved.. Procedure history delivery only; (48740).. Family history BrotherDiabetes..SisterHig h blood pressure....Diabetes..Fath erHeart attack....High blood pressure....Diabetes..Moth erBrain aneurysmHigh blood pressure....Diabetes... Social & Psychosocial VmpjosRibwhfh25/11/2018 Risk Assessment: Denies Alcohol Use03/11/2018 Use: Past Type: Liquor Frequency: 1-2 times per year *Have you ever felt you should cut down on drinking? No *Have people annoyed you by criticizing your drinking? No *Have you ever felt bad or guilty about your drinking? No *Have you ever taken an eye-creeler to get rid of a hangover? NoHome/Eqsemxdksmu02/23/20 13 *Living Situation Prior to Admission Home/Independent *Special Services and Community Resources Prior to Admission None *Mobility Assistance Prior to Admission Independent *Will patient require additional/new services upon discharge NoNutrition/Imeiac57/23/20 13 Type of diet: RegularSubstance Abuse01/20/2013 Risk Assessment: Denies Substance YoliaWeyaaoj70/23/2013 Use: Former smoker Started at age: 51 [...] Cooperative. Results Review Labs from PCP reviewed 01/1521TcfG8k 11.3% TSH 0.92Vit D 18Totchol 207HDL 42Trigs [...] face to face counselling as above Normal [facility] Office Visit (Internal Medic ine)on 02-25-2018 Office Visit (Internal Medicine) Chief Complaint Visit For: Other 3 week follow up uncontrolled diabetes uncontrolled hyperlipidemia History of Present IllnessA 57-year-old patient who have uncontrolled poorly controlled diabetes and dyslipoproteinemia secondary to compliance refer patient to plaster mechanic dietitians for possible insulin pump placement. Review [...] Release; TAKE 1 CAPSULE DAILY Requested for: 90Gvt8812; Last Rx:24Cwe2955 Ordered Rx By: Natalie Bone; Dispense: 30 Days ; #:90 Capsule Delayed Release; Refill: 3;For: Acid reflux; MARY = N; Verified Transmission to [facility]; Last Updated By: Eliecer Medina; 01/24/2018 12:09:57 PM BD Pen Needle Short U/F 31G X 8 MM Miscellaneous; INJECTS 5 TIMES A DAY;Therapy: 64Tye4883 to (Last Rx:61Xnm1158) Requested for: 45Rfq3576 Ordered Rx By: Natalie Bone; Dispense: 0 Days ; #:5 X 100 Miscellaneous Box; Refill: 3;For: Diabetes mellitus; MARY = N; Verified Transmission to [facility]; Msg to Pharmacy: Patient needs enough to cover for 90 days and uses 5 per day.; Last Updated By: Beto MedinaTransferWise; 08/17/2014 9:01:08 AM HumaLOG KwikPen 100 UNIT/ML [...] UNIT/ML Subcutaneous Solution Pen-injector; 100 UNITS ATDINNER;Therapy: 78Una9363 to Requested for: 13May2017 Recorded Rx By: [...] (hypertension); MARY = N; Verified Transmission to [facility] 1811; Last Updated By: Carol dMetrics; 03/20/2017 10:43:29 AM Metoprolol Succinate ER 50 MG Oral Tablet Extended Release 24 Hour; Take 1 tabletdaily;Therapy: 03Vkl9464 to (Evaluate:83Qpp5917) Requested for: 71Qxh3308; LastRx:90Jjz3340 Ordered Rx By: Natalie Bone; Dispense: 90 Days ; #:90 Tablet Extended Release 24 Hour; Refill: 3;For: HTN (hypertension); MARY = N; Verified Transmission to [facility]; Last Updated By: [employer]; 03/20/2017 10:43:28 AM Cexat-8-nrud Ethyl Esters 1 GM Oral Capsule; 4 a day;Therapy: 85Nnu0274 to (Last Rx:27Qzd1693) Requested for: 39Vfl5042 Ordered Rx By: Natalie Bone; Dispense: 0 Days ; #:360 Capsule; Refill: 3;For: Hyperlipidemia; MARY = N; Verified Transmission to [facility]; Last Updated By: [employer]; 01/24/2018 12:09:57 PM Simvastatin 80 MG Oral Tablet; TAKE 1 TABLET AT BEDTIME;Therapy: 14Sku9850 to (Evaluate:82Osu2367) Requested for: 47Zfp0548; LastRx:49Wde4324 Ordered Rx By: Natalie Bone; Dispense: 90 Days ; #:90 Tablet; Refill: 3;For: Hyperlipidemia; MARY = N; Verified Transmission to [facility]; Last Updated By: [employer]; 04/15/2017 9:29:02 AM MetFORMIN HCl ER 500 MG Oral Tablet Extended Release 24 Hour; one a day;Therapy: 87Qrd6901 to (Last Rx:60Mzp7387) Requested for: 54Lbn4056 Ordered Rx By: Natalie Bone; Dispense: 0 Days ; #:90 Tablet Extended Release 24 Hour; Refill: 3;For: Type 2 diabetes with complication; MARY = N; Verified Transmission to [facility]; Last Updated By: [employer]; 03/20/2017 10:43:30 AM Doxycycline Hyclate 50 MG Oral Tablet; one twice a day;Therapy: 51Ami6068 to (Last Rx:13Dau5791) Requested for: 16Lyj3373 Ordered Rx By: Natalie Bone; Dispense: 0 Days ; #:14 Tablet; Refill: 0;For: UTI (urinary tract infection); MARY = N; Verified Transmission to [facility]; Last Updated By: [employer]; 02/03/2018 3:22:41 PM Vitamin D (Ergocalciferol) 25919 UNIT Oral Capsule; 1 CAPSULE EVERY WEEK;Therapy: 03Feb2018 to (Last Rx:03Feb2018) Requested for: 70Sbm4336 Ordered Rx By: Natalie Bone; Dispense: 0 Days ; #:12 Capsule; Refill: 0;For: Vitamin D deficiency; MARY = N; Verified Transmission to [facility] 1811; Last Updated By: Eliecer Medina; 02/03/2018 3:22:42 PM Aspirin 325 MG Oral Tablet;Therapy: 15Apr2017 to Recorded Rx By: Natalie Bone; Dispense: 0 Days ; #: Sufficient Tablet; Refill: 0; MARY = N; Record Vitals Vital Signs Recorded: 25Feb2018 04:09PMHeart Nwhy18Thtukfuk924Iepzwhfob 20Lckuhb6 ft Jatjtx563 lb BMI Jrtwiqybie18.51BSA Calculated1.63O2 Jfsqrksich14 Physical ExamConstitutional General appearance: Alert and in [...] many exercise options for seniors.; Status:Complete; Done: 86Kva651073:22PM Ordered; For:Benign essential hypertension; Ordered By:Natalie Bone;Hyperlipidemia Avoid alcoholic beverages.; Status:Complete; Done: 55Lpd1995 04:22PM Ordered; For:Hyperlipidemia; Ordered By:Natalie Bone;Hypothyroidism You may slowly resume your normal level of activity once you feel better.;Status:Complete; Done: 46Aex1821 04:21PM Ordered; For:Hypothyroidism; Ordered By:Natalie Bone;Uncontrolled type 2 diabetes mellitus with neurologic complication Begin or continue regular aerobic exercise. Gradually work up to at least 3 sessions of 30minutes of exercise a week. Begin or continue regular aerobic exercise. Gradually workup to at least 3 sessions of 30 minutes of exercise a week.; Status:Complete; Done: 47Iqc1918 04:21PM Ordered; For:Uncontrolled type 2 diabetes mellitus with neurologic complication; Ordered By:Natalie Bone; Provider Impressions1. A diet low in sodium and high in potassium, magnesium,and calcium can help yourblood pressure.; 2. Begin or continue regular aerobic exercise. Gradually work up to at least 3 sessions of 30minutes of exercise a week.; 3. [place] your teeth 3 times a day and [...] signs that the blood sugar is too high>68524. There are signs that the blood sugar is too low<7515. You have a severe headache that will not go away16. You notice that breathing is rapid, more than 4017. Your blood pressure is greater than 250/120 for 218.Your eyesight becomes blurry or you have dywbbaeekx77. 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 bring all your medication OTC plus prescription medication with each visit22.Any medical problem or emergency contact our office at [phone] Follow-up visit in 3-4 months Begin a [...] of memory seems to be worse Call [phone] if:You are having trouble staying awakeexperience a [...] once a yearRefer patient to dietitian and plaster mechanic for insulin pump End of Encounter MedsAspirin 325 MG Oral Tablet;Therapy: 55Eqi2118 to RecordedBD Pen Needle Short U/F 31G X 8 MM Miscellaneous; INJECTS 5 TIMES A DAY;Therapy: 02Lgx9221 to (Last Rx:48Mnk4653) Requested for: 68Wqc1948 OrderedDoxycycline Hyclate 50 MG Oral Tablet; one twice a day;Therapy: 28Dfh5198 to (Last Rx:98Ice6017) Requested for: 07Lws9875 OrderedHumaLOG KwikPen 100 UNIT/ML Subcutaneous Solution Pen-injector; 20 units eachmeal;Therapy: 81Yhh3125 to (Evaluate:09Dec2017) Requested for: 13May2017 RecordedLevemir FlexTouch 100 UNIT/ML Subcutaneous Solution Pen-injector; 100 UNITS ATDINNER;Therapy: 03Rzc1090 to Requested for: 13May2017 RecordedLisinopril-Hydroch lorothiazide 20-25 MG Oral Tablet; TAKE 1 TABLET ONCE DAILY Requested for: 28Gpg9721; Last Rx:35Zyc8715 OrderedMetFORMIN HCl ER 500 MG Oral Tablet Extended Release 24 Hour; one a day;Therapy: 29Fhj4429 to (Last Rx:20Mar2017) Requested for: 12Tye1186 OrderedMetoprolol Succinate ER 50 MG Oral Tablet Extended Release 24 Hour; Take 1 tabletdaily;Therapy: 08Blr9590 to (Evaluate:05Qhy1374) Requested for: 59Hyo9979; LastRx:20Mar2017 TzqspqwCihms-7-buir Ethyl Esters 1 GM Oral Capsule; 4 a day;Therapy: 13May2017 to (Last Rx:33Drq8712) Requested for: 86Uju7664 OrderedOmeprazole 40 MG Oral Capsule Delayed Release; TAKE 1 CAPSULE DAILY Requested for: 24Vpm0584; Last Rx:45Jzp2550 OrderedSimvastatin 80 MG Oral Tablet (Zocor); TAKE 1 TABLET AT BEDTIME;Therapy: 15Apr2017 to (Evaluate:10Apr2018) Requested for: 15Apr2017; LastRx:15Apr2017 OrderedVitamin D (Ergocalciferol) 52840 UNIT Oral Capsule; 1 CAPSULE EVERY WEEK;Therapy: 65Kwm5212 to (Last Rx:27Hpd3802) Requested for: 14Xdq8431 Ordered Normal dloHaiti CBC AND DIFFERENTIALon 01-24 % AUTOMATED IMMATURE GRAN 0.4 % Normal 0.0 - 0.9 [facility] Comment on above: Result Comment: Perc ent differential counts (%) should be interpreted in the context of the absolute cell counts (cells/L). Performed By: #### C BCDF ####[id number] [place] [address] % NEUTROPHIL 59.8 % Normal 40.0 - 80.0 [facility] Comment on above: Performed By: #### C BCDF ####[id number] [place] [address] Basophils/100 WBC Auto (Bld) 0.7 % Normal 0.0 - 2.0 [facility] Comment on above: Performed By: #### C BCDF ####[id number] [place] [address] Basophils/100 WBC Auto (Bld) 0.05 x10E9/L Normal 0.00 - 0.10 [facility] Comment on above: Performed By: #### C BCDF ####[id number] [place] [address] Eosinophils 0.14 10*3/uL Normal 0.00 - 0.70 [facility] Comment on above: Performed By: #### C BCDF ####[id number] [place] [address] Eosinophils/100 leukocytes 1.8 % Normal 0.0 - 6.0 [facility] Comment on above: Performed By: #### C BCDF ####[id number] [place] [address] Erythrocyte distribution width Auto Ratio (RBC) 13.2 % Normal 11.5 - 14.5 [facility] Comment on above: Performed By: #### C BCDF ####[id number] [place] [address] Erythrocytes (RBC) 5.13 x10E12/L Normal 4.00 - 5.20 [facility] Comment on above: Performed By: #### C BCDF ####[id number] [place] [address] Hematocrit (HCT) 43.9 % Normal 36.0 - 46.0 [facility] Comment on above: Performed By: #### C BCDF ####[id number] [place] [address] Hemoglobin mass conc (Bld) 15.3 g/dL Normal 12.0 - 16.0 [facility] Comment on above: Performed By: #### C BCDF ####[id number] [place] [address] Lymphocytes 2.50 10*3/uL Normal 1.20 - 4.80 [facility] Comment on above: Performed By: #### C BCDF ####[id number] [place] [address] Lymphocytes/100 leukocytes 32.7 % Normal 13.0 - 44.0 [facility] Comment on above: Performed By: #### C BCDF ####[id number] [place] [address] MCHC mass conc (RBC) 34.9 g/dL Normal 32.0 - 36.0 [facility] Comment on above: Performed By: #### C BCDF ####[id number] [place] [address] MCV 86 fL Normal 80 - 100 [facility] Comment on above: Performed By: #### C BCDF ####[id number] [place] [address] Monocytes 0.35 10*3/uL Normal 0.10 - 1.00 [facility] Comment on above: Performed By: #### C BCDF ####[id number] [place] [address] Monocytes/100 leukocytes 4.6 % Normal 2.0 - 10.0 [facility] Comment on above: Performed By: #### C BCDF ####[id number] [place] [address] Neutrophils 4.57 10*3/uL Normal 1.20 - 7.70 [facility] Comment on above: Performed By: #### C BCDF ####[id number] [place] [address] Nucleated erythrocytes 0.0 /100 WBC Normal 0.0-0.0 [facility] Comment on above: Performed By: #### C BCDF ####[id number] [place] [address] Platelets 231 10*3/uL Normal 150 - 450 [facility] Comment on above: Performed By: #### C BCDF ####[id number] [place] [address] WBC (Leukocytes) 7.6 10*3/uL Normal 4.4 - 11.3 [facility] Comment on above: Performed By: #### C BCDF ####[id number] [place] [address] COMPREHENSIVE PANELon 2017 Alanine aminotransferase (ALT) 20 U/L Normal 7 - 45 [facility] Comment on above: Result Comment: Asuncion ents treated with Sulfasalazine may generate falsely decreased results for ALT. Performed By: #### C MP ####[id number] [place] [address] Albumin 4.2 g/dL Normal 3.4 - 5.0 [facility] Comment on above: Performed By: #### C MP ####[id number] [place] [address] Alkaline phosphatase (ALP) 107 U/L Normal 33 - 110 [facility] Comment on above: Performed By: #### C MP ####[id number] [place] [address] Anion gap 17 mmol/L Normal 10 - 20 [facility] Comment on above: Performed By: #### C MP ####[id number] [place] [address] Aspartate aminotransferase (AST) 18 U/L Normal 9 - 39 [facility] Comment on above: Performed By: #### C MP ####[id number] [place] [address] Bicarbonate (HCO3) 26 mmol/L Normal 21 - 32 [facility] Comment on above: Performed By: #### C MP ####[id number] [place] [address] Bilirubin (total) 0.5 mg/dL Normal 0.0 - 1.2 [facility] Comment on above: Performed By: #### C MP ####[id number] [place] [address] Calcium 9.7 mg/dL Normal 8.6 - 10.6 [facility] Comment on above: Performed By: #### C MP ####[id number] [place] [address] Chloride 94 mmol/L Low 98 - 107 [facility] Comment on above: Performed By: #### C MP ####[id number] [place] [address] Creatinine 0.83 mg/dL Normal 0.50 - 1.05 [facility] Comment on above: Performed By: #### C MP ####[id number] [place] [address] GFR- AM. >60 Normal >60 [facility] Comment on above: Result Comment: CALC ULATIONS OF ESTIMATED GFR ARE PERFORMED USING THE MDRD STUDY EQUATION FOR THE IDMS-TRACEABLE CREATININE METHODS. CLIN CHEM 2007;53:766-72 Performed By: #### C MP ####[id number] [place] [address] GFR-NON AM. >60 Normal >60 [facility] Comment on above: Performed By: #### C MP ####[id number] [place] [address] Glucose mass conc 442 mg/dL High 74 - 99 [facility] Comment on above: Performed By: #### C MP ####[id number] [place] [address] Potassium molar conc 4.1 mmol/L Normal 3.5 - 5.3 [facility] Comment on above: Performed By: #### C MP ####[id number] [place] [address] Protein 7.4 g/dL Normal 6.4 - 8.2 [facility] Comment on above: Performed By: #### C MP ####[id number] [place] [address] Sodium 133 mmol/L Low 136 - 145 [facility] Comment on above: Performed By: #### C MP ####[id number] [place] [address] Urea nitrogen 13 mg/dL Normal 6 - 23 [facility] Comment on above: Performed By: #### C MP ####[id number] [place] [address] HEMOGLOBIN A1Con 01-24-2018 Glucose mass conc 278 mg/dL Normal [facility] Comment on above: Performed By: #### H BA1E ####[id number] [place] [address] Hemoglobin A1c/Hemoglobin.total mass fraction (Bld) 11.3 % Normal [facility] Comment on above: Result Comment: Diag nosis of Diabetes-Adults Non-Diabetic: < or = 5.6% Increased risk for developing diabetes: 5.7-6.4% Diagnostic of diabetes: > or = 6.5%. Monitoring of Diabetes Age (y) Therapeutic Goal (%) Adults: >18 <7.0 Pediatrics: 13-18 <7.5 7-12 <8.0 0- 6 7.5-8.5 [employer]. Diabetes Care 33(S1), Jul 2009. Performed By: #### H BA1E ####[id number] [place] [address] LIPID PANEL (CORONARY RISK 2 )on 01-24-2018 Cholesterol 207 mg/dL High 0 - 199 [facility] Comment on above: Result Comment: . AG [...] Metamizole dosing. Performed By: #### L IPID ####[id number] [place] [address] Cholesterol in VLDL mass conc SEE COMMENT Normal 0 - 40 [facility] Comment on above: Result Comment: Unab le to calculate VLDL. Performed By: #### L IPID ####[id number] [place] [address] Cholesterol to HDL Ratio 4.9 {ratio} Normal [facility] Comment on above: Result Comment: REF VALUESDESIRABLE < 3.4HIGH RISK > 5.0 Performed By: #### L IPID ####[id number] [place] [address] HDL Cholesterol 42.2 mg/dL Normal [facility] Comment on above: Result Comment: . AG E VERY LOW LOW NORMAL HIGH 0-19 Y < 35 < 40 40-45 ---- 20-24 Y ---- < 40 >45 ---- >24 Y ---- < 40 40-60 >60. Performed By: #### L IPID ####[id number] [place] [address] LDL Cholesterol - Normal 0 - 99 [facility] Comment on above: Result Comment: . NE [...] IS NON-FASTING. IF LDLMEASUREMENT IS NECESSARY CONTACT CLIENTSERVICES AT [phone] FOR ALTERNATIVE LDLASSAY. Performed By: #### L IPID ####[id number] [place] [address] Triglyceride 606 mg/dL High 0 - 149 [facility] Comment on above: Result Comment: . AG [...] Metamizole dosing. 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; Msg to Pharmacy: Patient needs enough to cover for 90 days and uses 5 per day.; Last Updated By: Beto MedinaTransferWise; 08/17/2014 9:01:08 AM HumaLOG KwikPen 100 UNIT/ML [...] UNIT/ML Subcutaneous Solution Pen-injector; 100 UNITS ATDINNER;Therapy: 15Naz3360 to Requested for: 13May2017 Recorded Rx By: aNtalie Bone; Dispense: 0 Days ; #:1 X [...] (hypertension); MARY = N; Verified Transmission to [facility]; Last Updated By: CarolGlamit; 03/20/2017 10:43:29 AM Metoprolol Succinate ER 50 MG Oral Tablet Extended Release 24 Hour; Take 1 tabletdaily;Therapy: 30Mnw8291 to (Evaluate:90Kzh1078) Requested for: 42Jnr4761; LastRx:26Knf7156 Ordered Rx By: Natalie Bone; Dispense: 90 Days ; #:90 Tablet Extended Release 24 Hour; Refill: 3;For: HTN (hypertension); MARY = N; Verified Transmission to [facility]; Last Updated By: [employer]; 03/20/2017 10:43:28 AM Bevbh-5-fdoo Ethyl Esters 1 GM Oral Capsule; 4 a day;Therapy: 13May2017 to (Last Rx:13May2017) Requested for: 13May2017 Ordered Rx By: Natalie Bone; Dispense: 0 Days ; #:360 Capsule; Refill: 0;For: Hyperlipidemia; MARY = N; Verified Transmission to [facility]; Last Updated By: [employer]; 05/13/2017 11:25:32 AM Simvastatin 80 MG Oral Tablet; TAKE 1 TABLET AT BEDTIME;Therapy: 15Apr2017 to (Evaluate:10Apr2018) Requested for: 15Apr2017; LastRx:15Apr2017 Ordered Rx By: Natalie Bone; Dispense: 90 Days ; #:90 Tablet; Refill: 3;For: Hyperlipidemia; MARY = N; Verified Transmission to [facility]; Last Updated By: [employer]; 04/15/2017 9:29:02 AM MetFORMIN HCl ER 500 MG Oral Tablet Extended Release 24 Hour; one a day;Therapy: 20Mar2017 to (Last Rx:20Mar2017) Requested for: 20Mar2017 Ordered Rx By: Natalie Bone; Dispense: 0 Days ; #:90 Tablet Extended Release 24 Hour; Refill: 3;For: Type 2 diabetes with complication; MARY = N; Verified Transmission to [facility]; Last Updated By: [employer]; 03/20/2017 10:43:30 AM Aspirin 325 MG Oral Tablet;Therapy: 24Kbl5839 to Recorded Rx By: Natalie Bone; Dispense: 0 Days ; #: Sufficient Tablet; Refill: 0; MARY = N; Record Vitals Vital Signs Recorded: 14Jpj0178 11:41AMHeart Jbuw76Bneeaelv135Hibptlpzq 28Sdxyvm7 ft Vlfgwp651 lb 12.8 ozBMI Qcryskxnxa54.47BSA Calculated1.63O2 Vpdvnhxpot62 Physical ExamConstitutional General appearance: Alert and in [...] to get calcium in your diet.; Status:Complete; Done:69Rbk6291 12:03PM Ordered; For:Benign essential hypertension; Ordered By:Natalie Bone;Hyperlipidemia Avoid alcoholic beverages.; Status:Complete; Done: 09Enj9122 12:02PM Ordered; For:Hyperlipidemia; Ordered By:Natalie Bone;Uncontrolled type 2 diabetes mellitus with neurologic complication Begin or continue regular aerobic exercise. Gradually work up to at least 3 sessions of 30minutes of exercise a week. Begin or continue regular aerobic exercise. Gradually workup to at least 3 sessions of 30 minutes of exercise a week.; Status:Complete; Done: [id number] 12:02PM Ordered; For:Uncontrolled type 2 diabetes mellitus with neurologic complication; Ordered By:Natalie Bone; Provider Impressions1. A diet low in sodium and high in potassium, magnesium,and calcium can help yourblood pressure.; 2. Begin or continue regular aerobic exercise. Gradually work up to at least 3 sessions of 30minutes of exercise a week.; 3. [place] your teeth 3 times a day and [...] signs that the blood sugar is too high>15919. There are signs that the blood sugar is too low<7515. You have a severe headache that will not go away16. You notice that breathing is rapid, more than 4017. Your blood pressure is greater than 250/120 for 218.Your eyesight becomes blurry or you have ibfnqmhuhd53. 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 bring all your medication OTC plus prescription medication with each visit22.Any medical problem or emergency contact our office at [phone] lipidemia, mixed Start: Aspirin 81 MG Oral [...] pressure is frequently higher than 140/90. Call 448 if * You experience a new kind [...] every 3-4 months refer patient to dietitian plaster mechanic gastroenterologists sent for CBC CMP TSH hemoglobin A1c under data follow-up in 3 weeks End of Encounter MedsAspirin 325 MG Oral Tablet;Therapy: 15Apr2017 to RecordedBD Pen Needle Short U/F 31G X 8 MM Miscellaneous; INJECTS 5 TIMES A DAY;Therapy: 92Npz5002 to (Last Rx:17Vif2457) Requested for: 33Gvc0868 OrderedHumaLOG KwikPen 100 UNIT/ML Subcutaneous Solution Pen-injector; 20 units eachmeal;Therapy: 05Oct2013 to (Evaluate:09Dec2017) Requested for: 13May2017 RecordedLevemir FlexTouch 100 UNIT/ML Subcutaneous Solution Pen-injector; 100 UNITS ATDINNER;Therapy: 08Hio4806 to Requested for: 13May2017 RecordedLisinopril-Hydroch lorothiazide 20-25 MG Oral Tablet; TAKE 1 TABLET ONCE DAILY Requested for: 21Ymc4561; Last Rx:[id number] OrderedMetFORMIN HCl ER 500 MG Oral Tablet Extended Release 24 Hour; one a day;Therapy: 24Tnh9864 to (Last Rx:22Isk8489) Requested for: 76Sjf9093 OrderedMetoprolol Succinate ER 50 MG Oral Tablet Extended Release 24 Hour; Take 1 tabletdaily;Therapy: 46Ywu6330 to (Evaluate:49Has5176) Requested for: 47Tzt6013; LastRx:23Cxw0332 MkmcddvIznga-0-rbte Ethyl Esters 1 GM Oral Capsule; 4 a day;Therapy: 13May2017 to (Last Rx:13May2017) Requested for: 13May2017 OrderedOmeprazole 40 MG Oral Capsule Delayed Release; TAKE 1 CAPSULE DAILY Requested for: 09Dec2017; Last Rx:09Dec2017 OrderedSimvastatin 80 MG Oral Tablet (Zocor); TAKE 1 TABLET AT BEDTIME;Therapy: 15Apr2017 to (Evaluate:10Apr2018) Requested for: 15Apr2017; LastRx:15Apr2017 Ordered Signatures Electronically signed by : Natalie Bone MD; Jan 24 2018 12:04PM EST (Author) Normal Touchworks TSHon 01-24-2018 Thyroid stimulating hormone (TSH) 0.92 m[IU]/L Normal 0.44 - 3.98 [facility] Comment on above: Result Comment: TSH testing is performed using different testing methodology at [facility] than at other [facility]. Direct result comparisons should only be made within the same method.. Patients receiving more than 5 mg/day of biotin may have interference in test results. A sample should be taken no sooner than eight hours after previous dose. Contact [phone] for additional information. Performed By: #### T SH2 ####[id number] [place] [address] UA MICROSCOPICon 01-24-2018 RBC 1 /HPF Normal 0-5 [facility] Comment on above: Performed By: #### U AMIC ####[id number] [place] [address] SQUAMOUS EPITH. CELLS 1 /HPF Normal [facility] Comment on above: Performed By: #### U AMIC ####[id number] [place] [address] WBC 1 /HPF Normal 0-5 [facility] Comment on above: Performed By: #### U AMIC ####[id number] [place] [address] URINALYSISon 01-24-2018 APPEARANCE CLEAR Normal CLEAR [facility] Comment on above: Performed By: #### U A ####[id number] [place] [address] BILIRUBIN Negative Normal NEGATIVE [facility] Comment on above: Performed By: #### U A ####[id number] [place] [address] BLOOD Negative Normal NEGATIVE [facility] Comment on above: Performed By: #### U A ####[id number] [place] [address] COLOR YELLOW Normal STRAW,YELLOW [facility] Comment on above: Performed By: #### U A ####[id number] [place] [address] GLUCOSE >=500 (3+) Abnormal NEGATIVE [facility] Comment on above: Performed By: #### U A ####[id number] [place] [address] KETONES Negative Normal NEGATIVE [facility] Comment on above: Performed By: #### U A ####[id number] [place] [address] LEUKOCYTE ESTERASE SMALL (1+) Abnormal NEGATIVE [facility] Comment on above: Performed By: #### U A ####[id number] [place] [address] NITRITE Negative Normal NEGATIVE [facility] Comment on above: Performed By: #### U A ####[id number] [place] [address] pH 5.0 Normal 5.0 - 8.0 [facility] Comment on above: Performed By: #### U A ####[id number] [place] [address] PROTEIN Negative Normal NEGATIVE [facility] Comment on above: Performed By: #### U A ####[id number] [place] [address] SPECIFIC GRAVITY 1.026 Normal 1.005 - 1.035 [facility] Comment on above: Performed By: #### U A ####[id number] [id number] UROBILINOGEN <2.0 Normal 0.0 - 1.9 [facility] Comment on above: Performed By: #### U A ####[id number] [place] [address] VITAMIN D, 25-HYDROXYon 12-30 VITAMIN D, 25-HYDROXY 18 ng/mL Abnormal [facility] Comment on above: Result Comment: .DEF ICIENCY: < 20 NG/MLINSUFFICIENCY: 20-29 NG/MLOPTIMUM LEVEL: 30-80 NG/MLPOSSIBLE TOXICITY: > 80 NG/MLTHIS ASSAY ACCURATELY QUANTIFIES THE SUM OFVITAMIN D3, 25-HYDROXY AND VIT D2,25-HYDROXY. Performed By: #### V TDOH ####[id number] [id number] Culture, urine Bacteria identified Cx Nom (U) Negative [facility] Work Phone: Bacteria identified Cx Nom (U) Mixed Gram Pos & Gram Neg Org [facility] Work Phone: Vital Signs Date Time Vital Sign Value Performing Clinician Facility 02-24-2025 09:07-0400 Body height 157.[address] Melanie Levy MD Work Phone: [facility] 02-24-2025 09:07-0400 Body mass index (BMI) [Ratio] 27.1 kg/m2 Dr. Melanie Levy MD Work Phone: [facility] 02-24-2025 09:07-0400 Body weight 67.[address] Melanie Levy MD Work Phone: [facility] 02-24-2025 09:07-0400 Diastolic blood pressure 83 mm[Hg] Dr. Melanie Levy MD Work Phone: 5(626)065-636190 [address] 02-24-2025 09:07-0400 Heart rate 66 /min Dr. Melanie Levy MD Work Phone: 0(514)841-983276 [place] [address] 02-24-2025 09:07-0400 SaO2% (BldA) [Mass fraction] 98 % Dr. Melanie Levy MD Work Phone: 6(394)597-872676 [place] [address] 02-24-2025 09:07-0400 Systolic blood pressure 158 mm[Hg] Dr. Melanie Levy MD Work Phone: 9(712)504-019876 [place] [address] 02-23-2025 09:01-0400 Body height 157.[address] Melanie Levy MD Work Phone: 2(512)725-412176 [place] [address] 02-23-2025 09:01-0400 Body mass index (BMI) [Ratio] 26.9 kg/m2 Dr. Melanie Levy MD Work Phone: 4(005)465-261976 [place] [address] 02-23-2025 09:01-0400 Body weight 66.[address] Melanie Levy MD Work Phone: 4(973)437-433376 [place] [address] 02-03-2025 10:01-0400 Body height 157.[address] Melanie Levy MD Work Phone: 0(768)538-324276 [place] [address] 02-03-2025 10:01-0400 Body mass index (BMI) [Ratio] 27.1 kg/m2 Dr. Melanie Levy MD Work Phone: 7(213)132-128176 [place] [address] 02-03-2025 10:01-0400 Body weight 67.[address] Melanie Levy MD Work Phone: 2(951)938-265776 [place] [address] 02-03-2025 10:01-0400 Diastolic blood pressure 70 mm[Hg] Dr. Melanie Levy MD Work Phone: 9(676)477-762176 [place] [address] 02-03-2025 10:01-0400 Heart rate 89 /min Dr. Mleanie Levy MD Work Phone: 7(261)152-182876 [place] [address] 02-03-2025 10:01-0400 Respiratory rate 16 /min Dr. Melanie Levy MD Work Phone: [facility] 02-03-2025 10:01-0400 Systolic blood pressure 110 mm[Hg] Dr. Melanie Levy MD Work Phone: 5(622)708-277326 [place] [address] 01-20-2025 11:24-0400 Body temperature 98.5 [degF] Dr. Melanie Levy MD Work Phone: 1(542)488-994376 [place] [address] 01-20-2025 11:24-0400 Diastolic blood pressure 68 mm[Hg] Dr. Melanie Levy MD Work Phone: 2(187)729-886876 [place] [address] 01-20-2025 11:24-0400 Heart rate 87 /min Dr. Melanie Levy MD Work Phone: 9(848)983-532676 [place] [address] 01-20-2025 11:24-0400 Respiratory rate 16 /min Dr. Melanie Levy MD Work Phone: 7(420)225-199576 [place] [address] 01-20-2025 11:24-0400 SaO2% (BldA) [Mass fraction] 98 % Dr. Melanie Levy MD Work Phone: 1(674)934-150576 [place] [address] 01-20-2025 11:24-0400 Systolic blood pressure 124 mm[Hg] Dr. Melanie Levy MD Work Phone: 3(946)359-354076 [place] [address] 09-07-2024 15:46-0400 Body height 157.[address] Melanie Levy MD Work Phone: 3(933)118-967776 [place] [address] 09-07-2024 15:46-0400 Body mass index (BMI) [Ratio] 25.2 kg/m2 Dr. Melanie Levy MD Work Phone: 6(488)785-771076 [place] [address] 09-07-2024 15:46-0400 Body weight 62.[address] Melanie Levy MD Work Phone: 1(496)657-821776 [place] [address] 09-07-2024 15:46-0400 Diastolic blood pressure 67 mm[Hg] Dr. Melanie Levy MD Work Phone: 6(446)620-326676 [place] [address] 09-07-2024 15:46-0400 Heart rate 83 /min Dr. Melanie Levy MD Work Phone: [facility] 09-07-2024 15:46-0400 SaO2% (BldA) [Mass fraction] 96 % Dr. Melanie Levy MD Work Phone: 2(543)115-159926 [place] [address] 09-07-2024 15:46-0400 Systolic blood pressure 103 mm[Hg] Dr. Melanie Levy MD Work Phone: 7(434)700-675526 [place] [address] 07-29-2024 15:35-0500 Body temperature 98.8 [degF] Dr. Melanie Levy MD Work Phone: 2(235)912-128676 [place] [address] 07-29-2024 15:35-0500 Diastolic blood pressure 80 mm[Hg] Dr. Melanie Levy MD Work Phone: 3(829)498-339076 [place] [address] 07-29-2024 15:35-0500 Heart rate 85 /min Dr. Melanie Levy MD Work Phone: 9(879)581-859226 [place] [address] 07-29-2024 15:35-0500 Respiratory rate 18 /min Dr. Melanie Levy MD Work Phone: 0(664)945-951626 [place] [address] 07-29-2024 15:35-0500 SaO2% (BldA) [Mass fraction] 93 % Dr. Melanie Levy MD Work Phone: 5(996)698-896526 [place] [address] 07-29-2024 15:35-0500 Systolic blood pressure 125 mm[Hg] Dr. Melanie Levy MD Work Phone: [facility] 07-29-2024 04:24-0500 Body mass index (BMI) [Ratio] 24 kg/m2 Dr. Melanie Levy MD Work Phone: 3(408)515-441826 [place] [address] 07-29-2024 04:24-0500 Body weight 59.[address] Melanie Leyv MD Work Phone: 8(915)356-931326 [place] [address] 07-28-2024 14:50-0500 Inhaled oxygen flow rate 2 L/min Dr. Melanie Levy MD Work Phone: [facility] 06-05-2024 14:53-0500 Body height 160 cm Nikole Jarrell DRILLER MACHINE Work Phone: [facility] 06-05-2024 14:53-0500 Body mass index (BMI) [Ratio] 24.09 kg/m2 Nikole Jarrell DRILLER MACHINE Work Phone: [facility] 06-05-2024 14:53-0500 Body weight 61.69 kg Nikole Jarrell DRILLER MACHINE Work Phone: [facility] 06-05-2024 14:53-0500 Diastolic blood pressure 76 mm[Hg] Nikole Jarrell DRILLER MACHINE Work Phone: [facility] 06-05-2024 14:53-0500 Heart rate 81 /min Nikole Jarrell DRILLER MACHINE Work Phone: [facility] 06-05-2024 14:53-0500 SaO2% (BldA) [Mass fraction] 97 % Nikole Jarrell DRILLER MACHINE Work Phone: [facility] 06-05-2024 14:53-0500 Systolic blood pressure 110 mm[Hg] Nikole jiménez DRILLER MACHINE Work Phone: [facility] 04-24-2024 14:05-0400 Body height 160 cm Nikole Jarrell DRILLER MACHINE Work Phone: [facility] 04-24-2024 14:05-0400 Body mass index (BMI) [Ratio] 25.24 kg/m2 Nikole Jarrell DRILLER MACHINE Work Phone: [facility] 04-24-2024 14:05-0400 Body weight 64.64 kg Nikole Jarrell DRILLER MACHINE Work Phone: [facility] 04-24-2024 14:05-0400 Diastolic blood pressure 74 mm[Hg] Nikole Jarrell DRILLER MACHINE Work Phone: [facility] 04-24-2024 14:05-0400 Heart rate 80 /min Nikole Jarrell DRILLER MACHINE Work Phone: [facility] 04-24-2024 14:05-0400 SaO2% (BldA) [Mass fraction] 95 % Nikole Jarrell DRILLER MACHINE Work Phone: [facility] 04-24-2024 14:05-0400 Systolic blood pressure 122 mm[Hg] Nikole jiménez DRILLER MACHINE Work Phone: [facility] 02-21-2024 14:25-0400 Body height 160 cm Nikole Jarrell DRILLER MACHINE Work Phone: [facility] 02-21-2024 14:25-0400 Body mass index (BMI) [Ratio] 26.31 kg/m2 Nikole Jarrell DRILLER MACHINE Work Phone: [facility] 02-21-2024 14:25-0400 Body weight 67.36 kg Nikole Jarrell DRILLER MACHINE Work Phone: [facility] 02-21-2024 14:25-0400 Diastolic blood pressure 62 mm[Hg] Nikole Jarrell DRILLER MACHINE Work Phone: [facility] 02-21-2024 14:25-0400 Heart rate 74 /min Nikole Jarrlel DRILLER MACHINE Work Phone: [facility] 02-21-2024 14:25-0400 SaO2% (BldA) [Mass fraction] 96 % Nikole Jarrell DRILLER MACHINE Work Phone: [facility] 02-21-2024 14:25-0400 Systolic blood pressure 104 mm[Hg] Nikole jiménez DRILLER MACHINE Work Phone: [facility] 10-05-2023 09:54-0400 Body temperature 97.9 [degF] Dr. Melanie Levy Work Phone: [facility] 10-05-2023 09:54-0400 Diastolic blood pressure 70 mm[Hg] Dr. Melanie Levy Work Phone: [facility] 10-05-2023 09:54-0400 Heart rate 71 /min Dr. Melanie Levy Work Phone: [facility] 10-05-2023 09:54-0400 Respiratory rate 16 /min Dr. Melanie Levy Work Phone: [facility] 10-05-2023 09:54-0400 SaO2% (BldA) [Mass fraction] 98 % Dr. Melanie Levy Work Phone: [facility] 10-05-2023 09:54-0400 Systolic blood pressure 119 mm[Hg] Dr. Melanie Levy Work Phone: [facility] 10-04-2023 06:00-0400 Body mass index (BMI) [Ratio] 26.6 kg/m2 Dr. Melanie Levy Work Phone: [facility] 10-04-2023 06:00-0400 Body weight 68.[address] Melanie Levy Work Phone: [facility] 10-02-2023 07:50-0400 Body height 159.[address] Melanie Levy Work Phone: [facility] 09-20-2023 12:53-0400 SaO2% (BldA) [Mass fraction] 98 % [facility] Comment on above: Order Comment: Specimen Type: ARTERIAL B LOOD SPECIMENOrdering Facility: [facility] Address: [address] [place] [address] Performed By: #### A LLBG ####[facility] LABORATORYCLIA [id number] [address] [facility] 09-18-2023 00:09-0400 SaO2% (BldA) [Mass fraction] 100 % [facility] Comment on above: Order Comment: Specimen Type: ARTERIAL B LOOD SPECIMENOrdering Facility: [facility] Address: [address] [place] [address] Performed By: #### A LLBG ####[facility] LABORATORYCLIA [id number] [address] [facility] 09-17-2023 20:30-0400 Diastolic blood pressure 101 mm[Hg] Dr. Javier Levy Work Phone: [facility] 09-17-2023 20:30-0400 Heart rate 99 /min Dr. Javier Levy Work Phone: [facility] 09-17-2023 20:30-0400 Respiratory rate 12 /min Dr. Javier Levy Work Phone: [facility] 09-17-2023 20:30-0400 SaO2% (BldA) [Mass fraction] 99 % Dr. Javier Levy Work Phone: [facility] 09-17-2023 20:30-0400 Systolic blood pressure 169 mm[Hg] Dr. Javier Levy Work Phone: [facility] 09-17-2023 20:00-0400 Body temperature 98.6 [degF] Dr. Javier Levy Work Phone: [facility] 09-17-2023 19:46-0400 Inhaled oxygen concentration 30 % Dr. Javier Levy Work Phone: [facility] 09-17-2023 15:54-0400 Body height 160.[address] Javier Levy Work Phone: [facility] 09-17-2023 15:54-0400 Body weight [address] Javier Levy Work Phone: [facility] 09-17-2023 15:36-0400 Body mass index (BMI) [Ratio] 26.7 kg/m2 Dr. Javier Levy Work Phone: [facility] 09-14-2023 01:03-0400 Body temperature 97.4 [degF] Dr. Javier Levy Work Phone: [facility] 09-14-2023 01:03-0400 Diastolic blood pressure 74 mm[Hg] Dr. Javier Levy Work Phone: [facility] 09-14-2023 01:03-0400 Heart rate 78 /min Dr. Javier Levy Work Phone: [facility] 09-14-2023 01:03-0400 Respiratory rate 17 /min Dr. Javier Levy Work Phone: [facility] 09-14-2023 01:03-0400 SaO2% (BldA) [Mass fraction] 94 % Dr. Javier Levy Work Phone: [facility] 09-14-2023 01:03-0400 Systolic blood pressure 128 mm[Hg] Dr. Javier Levy Work Phone: [facility] 09-13-2023 20:07-0400 Body height 160.[address] Javier Levy Work Phone: [facility] 09-13-2023 20:07-0400 Body mass index (BMI) [Ratio] 27.6 kg/m2 Dr. Javier Levy Work Phone: [facility] 09-13-2023 20:07-0400 Body weight 70.[address] Javier Levy Work Phone: [facility] 10-19-2022 08:16-0400 Body temperature 98 [degF] Dr. Javier Levy Work Phone: [facility] 10-19-2022 08:16-0400 Diastolic blood pressure 84 mm[Hg] Dr. Javier Levy Work Phone: [facility] 10-19-2022 08:16-0400 Heart rate 84 /min Dr. Javier Levy Work Phone: [facility] 10-19-2022 08:16-0400 Respiratory rate 15 /min Dr. Javier Levy Work Phone: [facility] 10-19-2022 08:16-0400 SaO2% (BldA) [Mass fraction] 94 % Dr. Javier Levy Work Phone: [facility] 10-19-2022 08:16-0400 Systolic blood pressure 132 mm[Hg] Dr. Javier Levy Work Phone: [facility] 05-28-2022 18:32-0500 Body temperature 98.1 [degF] Kimmy Praisler-Wood ENGINE WATCHMAN.HOME SERVICE TECHNICIAN Work Phone: [facility] 05-28-2022 18:32-0500 Body weight 72.94 kg Kimmy Praisler-Wood ENGINE WATCHMAN.HOME SERVICE TECHNICIAN Work Phone: [facility] 05-28-2022 18:32-0500 Diastolic blood pressure 88 mm[Hg] Kimmy Praisler-Wood ENGINE WATCHMAN.HOME SERVICE TECHNICIAN Work Phone: [facility] 05-28-2022 18:32-0500 Heart rate 80 /min Kimmy Praisler-Wood ENGINE WATCHMAN.HOME SERVICE TECHNICIAN Work Phone: [facility] 05-28-2022 18:32-0500 Respiratory rate 20 /min Kimmy Praisler-Wood ENGINE WATCHMAN.HOME SERVICE TECHNICIAN Work Phone: [facility] 05-28-2022 18:32-0500 SaO2% (BldA) [Mass fraction] 94 % Kimmy Praisler-Wood ENGINE WATCHMAN.HOME SERVICE TECHNICIAN Work Phone: [facility] 05-28-2022 18:32-0500 Systolic blood pressure 138 mm[Hg] Kimmy Praisler-Wood ENGINE WATCHMAN.HOME SERVICE TECHNICIAN Work Phone: [facility] 04-18-2022 08:58-0400 Body height 157.5 cm Beverley Luna MD Work Phone: [facility] 04-18-2022 08:58-0400 Body weight 70.31 kg Beverley Luna MD Work Phone: [facility] 01-22-2022 15:37-0400 Body temperature 98.2 [degF] Dr. Javier Levy Work Phone: [facility] Work Phone: 01-22-2022 15:37-0400 Diastolic blood pressure 68 mm[Hg] Dr. Javier Levy Work Phone: [facility] Work Phone: 01-22-2022 15:37-0400 Heart rate 87 /min Dr. Javier Levy Work Phone: [facility] Work Phone: 01-22-2022 15:37-0400 Respiratory rate 14 /min Dr. Javier Levy Work Phone: [facility] Work Phone: 01-22-2022 15:37-0400 SaO2% (BldA) [Mass fraction] 98 % Dr. Javier Levy Work Phone: [facility] Work Phone: 01-22-2022 15:37-0400 Systolic blood pressure 124 mm[Hg] Dr. Javier Levy Work Phone: [facility] Work Phone: 11-03-2021 10:29-0400 Body height 157.5 cm Beverley Luna MD Work Phone: [facility] 11-03-2021 10:29-0400 Body weight 66.68 kg Beverley Luna MD Work Phone: [facility] 09-29-2021 10:26-0400 Body height 157.5 cm Les Griffin ENGINE WATCHMAN.HOME SERVICE TECHNICIAN Work Phone: [facility] 09-29-2021 10:26-0400 Body weight 66.68 kg Les Griffin ENGINE WATCHMAN.HOME SERVICE TECHNICIAN Work Phone: [facility] 09-29-2021 10:26-0400 Diastolic blood pressure 80 mm[Hg] Les Griffin ENGINE WATCHMAN.HOME SERVICE TECHNICIAN Work Phone: [facility] 09-29-2021 10:26-0400 Systolic blood pressure 142 mm[Hg] Les Griffin ENGINE WATCHMAN.C DRILLER MACHINE Work Phone: [facility] 09-20-2021 13:09-0400 Body height 157.5 cm Beverley Luan MD Work Phone: [facility] 09-20-2021 13:09-0400 Body weight 66.68 kg Beverley Luna MD Work Phone: [facility] 09-20-2021 13:040 Diastolic blood pressure 72 mm[Hg] Beverley Luna MD Work Phone: [facility] 09-20-2021 13:040 Systolic blood pressure 134 mm[Hg] Beverley Luna MD Work Phone: [facility] Encounters Encounter Date Encounter Type Care Provider Facility Start: 05-18-2025 ambulatory Ramez Khan Facility :[facility] Start: 05-05-2025 ambulatory Ivelisse Ramirezmi Facili ty:[facility] Start: 04-15-2025 End: 04-15-2025 ambulatory Ivelisse Ashley Facility:[facility] Start: 02-24-2025 End: 02-24-2025 Patient encounter procedure Marli PABON -[facility] Work Phone: Start: 02-24-2025 End: 02-24-[address] Melanie Levy MD Work Phone: [facility] Start: 02-23-2025 End: 02-23-2025 Patient encounter procedure Ivelisse GRANADO -[facility] Work Phone: Start: 02-23-2025 End: 02-24-[address] Melanie Levy MD Work Phone: [facility] Start: 02-09-2025 End: 02-09-[address] Adam Alvarado MD -[facility] Work Phone: Start: 02-09-2025 End: 02-09-[address] Melanie Levy MD Work Phone: [facility] Start: 02-03-2025 End: 02-03-[address] Kendrick Morales MD -[facility] Work Phone: Start: 02-03-2025 End: 02-03-[address] Melanie Levy MD Work Phone: -[facility] Start: 01-20-2025 End: 01-20-2025 Patient encounter procedure Luke GRANADO -[facility] Work Phone: Start: 01-20-2025 End: 01-20-[address] Melanie Levy MD Work Phone: -[facility] Start: 01-20-2025 End: 01-20-2025 ambulatory Luke GRANADO Facility:[facility] Start: 12-07-2024 End: 12-07-[address] Melanie Levy MD Work Phone: [facility] Work Phone: Start: 12-07-2024 End: 12-07-2024 Patient encounter procedure Ivelisse GRANADO -[facility] Work Phone: Start: 12-07-2024 End: 12-07-2024 ambulatory Ivelisse Ramirez Facility:[facility] Start: 11-25-2024 End: 11-25-[address] Melanie Levy MD Work Phone: [facility] Work Phone: Start: 11-25-2024 End: 11-25-2024 Patient encounter procedure Ivelisse GRANADO -Laboratory Specimen Work Phone: Start: 11-24-2024 Non-patient / Non-visit Dr. Jersey duarte MD -[facility] Start: 11-24-2024 End: 11-25-[address] Melanie Levy MD Work Phone: [facility] Work Phone: Start: 11-24-2024 End: 11-24-[address] Melanie Levy MD -Cardiovascular Services Work Phone: Start: 11-24-2024 End: 11-24-2024 ambulatory Melanie Levy Facility:[facility] Start: 11-19-2024 End: 11-19-2024 Patient encounter procedure Ivelisse GRANADO -[facility] Work Phone: Start: 11-19-2024 End: 11-19-[address] Melanie Levy MD Work Phone: [facility] Work Phone: Start: 11-19-2024 End: 11-19-2024 ambulatory Ivelisse Ramirez Facility:[facility] Start: 11-03-2024 End: 11-03-[address] Melanie Levy MD Work Phone: [facility] Work Phone: Start: 11-03-2024 End: 11-03-[address] Melanie Levy MD -Laboratory, Specimen Work Phone: Start: 11-03-2024 End: 11-03-2024 ambulatory Melanie Levy Facility:[facility] Start: 09-17-2024 End: 09-17-[address] Melanie Levy MD Work Phone: [facility] Work Phone: Start: 09-17-2024 End: 09-17-2024 Patient encounter procedure Ivelisse GRANADO -Laboratory Work Phone: Start: 09-17-2024 End: 09-17-2024 Patient encounter procedure Ivelisse Ramirez [place] -[facility] Work Phone: Start: 09-17-2024 End: 09-17-2024 ambulatory Ivelisse Ramirez Facility:[facility] Start: 09-17-2024 End: 09-17-2024 ambulatory Ivelisse Ramirez Facility:[facility] Start: 09-07-2024 End: 09-07-2024 Patient encounter procedure Marli PABON -[facility] Work Phone: Start: 09-07-2024 End: 09-07-2024 ambulatory Marli Barton Facility:[facility] Start: 09-03-2024 End: 09-03-2024 Patient encounter procedure Ramez Khan DO -[facility] Work Phone: Start: 09-03-2024 End: 09-03-2024 ambulatory Ramez Khan Facility:[facility] Start: 08-12-2024 End: 08-12-2024 Patient encounter procedure Ivelisse GRANADO -Laboratory Work Phone: Start: 08-12-2024 End: 08-12-2024 Patient encounter procedure Ivelisse GRANADO -[facility] Work Phone: Start: 08-12-2024 End: 08-12-2024 ambulatory Ivelisse Ramirez Facility:[facility] Start: 08-12-2024 End: 08-12-2024 ambulatory [facility] Facility:[facility] Start: 08-06-2024 ambulatory Marli Mick Facility :[facility] Start: 07-29-2024 Non-patient / Non-visit Dr. Marielena Roberts DO [facility] Work Phone: Start: 07-28-2024 Non-patient / Non-visit Dr. Marielena Roberts DO [facility] Work Phone: Start: 07-28-2024 Non-patient / Non-visit Ramez Sofia asher [facility] Start: 07-27-2024 Non-patient / Non-visit Dr. Marielena Roberts DO [facility] Work Phone: Start: 07-27-2024 ambulatory Marielena Roberts Facility:[facility] Start: 07-27-2024 End: 07-29-2024 Evaluation and management of inpatient Dr. Marielena Roberts DO -[facility] Work Phone: Start: 07-26-2024 ambulatory Mai Pérez Facility :[facility] Start: 07-26-2024 Non-patient / Non-visit Dr. Candi Pérez MD -[facility] Work Phone: Start: 06-05-2024 End: 06-05-2024 Office outpatient visit 25 minutes Nikole Jarrell NP Work Phone: [facility] Comment on above: Partial symptomatic epilepsy with complex partial seizures, not intractable, without status epilepticus (CMS/HCC) Start: 06-05-2024 End: 06-05-2024 Bamboo flowsheet Nikole Jarrell DRILLER MACHINE Work Phone: [facility] Start: 06-05-2024 End: 06-05-2024 Bamboo flowsheet Nikole Jarrell DRILLER MACHINE Work Phone: [facility] Start: 05-18-2024 End: 05-18-2024 ambulatory Power Paul Facility:[facility] Start: 04-24-2024 End: 04-24-2024 Bamboo flowsheet Nikole Jarrell DRILLER MACHINE Work Phone: [facility] Start: 04-24-2024 End: 04-24-2024 Bamboo flowsheet Nikole Jarrell DRILLER MACHINE Work Phone: [facility] Start: 04-24-2024 End: 04-24-2024 Office outpatient visit 25 minutes Nikole Jarrell DRILLER MACHINE Work Phone: [facility] Comment on above: Partial symptomatic epilepsy with complex partial seizures, not intractable, without status epilepticus (CMS/HCC) (Primary Dx) Start: 04-24-2024 End: 04-27-2024 Telephone encounter Nikole Jarrell DRILLER MACHINE Work Phone: [facility] Start: 04-24-2024 End: 04-24-2024 ambulatory NIKOLE JARRELL Not Available Start: 02-21-2024 End: 02-21-2024 Office outpatient visit 25 minutes Nikole Jarrell DRILLER MACHINE Work Phone: [facility] Comment on above: Partial symptomatic epilepsy with complex partial seizures, not intractable, without status epilepticus (CMS/HCC) (Primary Dx); PRES (posterior reversible encephalopathy syndrome); Primary hypertension (CMS/HCC); Type 2 diabetes mellitus with hyperglycemia, with long-term current use of insulin (CMS/HCC) Start: 02-21-2024 End: 02-21-2024 ambulatory NIKOLE JARRELL Not Available Start: 02-21-2024 End: 02-21-2024 Bamboo flowsheet Nikole Jarrell DRILLER MACHINE Work Phone: [facility] Start: 02-21-2024 End: 02-21-2024 Bamboo flowsheet Nikole Bart Jarrell NP Work Phone: [facility] Start: 11-05-[address] Jamari Levy Work Phone: [facility]-Speech Therapy Work Phone: Start: 11-02-2023 End: 11-02-[address] Melanie Levy Work Phone: [facility] Work Phone: Start: 11-02-2023 End: 11-02-[address] Melanie Levy Work Phone: [facility] - [facility] Work Phone: Start: 10-15-2023 End: 10-15-2023 ambulatory POWER PAUL Not Available Start: 10-07-2023 ambulatory Esteban Mitri [facility] Start: 10-04-2023 Non-patient / Non-visit Dr. Natalia Levy Work Phone: [facility] Work Phone: Start: 10-03-2023 Non-patient / Non-visit Dr. Natalia Levy Work Phone: [facility] Work Phone: Start: 10-02-2023 Non-patient / Non-visit Dr. Natalia Levy Work Phone: [facility] Work Phone: Start: 10-01-2023 Non-patient / Non-visit Dr. Natalia Levy Work Phone: [facility] Work Phone: Start: 09-30-2023 Non-patient / Non-visit Dr. Natalia Levy Work Phone: [facility] Work Phone: Start: 09-29-2023 Non-patient / Non-visit Dr. Natalia Levy Work Phone: [facility] Work Phone: Start: 09-27-2023 Non-patient / Non-visit Dr. Natalia Levy Work Phone: [facility] Work Phone: Start: 09-26-2023 Non-patient / Non-visit Dr. Natalia Levy Work Phone: [facility] Work Phone: Start: 09-25-2023 End: 10-05-2023 Evaluation and management of inpatient Dr. Melanie Levy Work Phone: [facility]-Rehab Unit Work Phone: Start: 09-18-2023 Evaluation and management of inpatient MELANIE LEVY Facility:[facility] Start: 09-17-2023 End: 09-17-2023 Emergency department patient visit Dr. Javier Levy Work Phone: [facility]-Emergency Department Work Phone: Start: 09-17-2023 ambulatory Yue Bingham APRN.HOME SERVICE TECHNICIAN Work Phone: Critical Care Start: 09-13-2023 End: 09-14-2023 Emergency department patient visit Dr. Javier Levy Work Phone: [facility]-Emergency Department Work Phone: Start: 09-05-2023 End: 09-05-[address] Javier Levy Work Phone: [facility] Work Phone: Start: 09-05-2023 End: 09-05-[address] Javier Levy Work Phone: [facility]-Outpatient Bone Densitometry Work Phone: Start: 08-23-2023 Non-patient / Non-visit Dr. Natalia Levy Work Phone: [facility] Start: 08-23-2023 End: 08-23-[address] Javier Levy Work Phone: [facility] Work Phone: Start: 08-23-2023 End: 08-23-[address] Javier Levy Work Phone: [facility]-Cardiovascular Services Work Phone: Start: 06-07-2023 End: 06-07-2023 ambulatory MELANIE LEVY Facility:[facility] Start: 03-25-2023 Preprocedural examination done Yue Bingham APRN.[facility] Work Phone: [facility] Work Phone: Start: 03-25-2023 Encounter for other preprocedural examination [facility] Start: 03-25-2023 End: 03-26-2023 ambulatory MELANIE LEVY Facility:[facility] Start: 03-25-2023 End: 03-26-2023 ambulatory [facility] Facility:[facility] Start: 03-25-2023 Encounter for other preprocedural examination [facility] Start: 12-11-2022 End: 12-11-[address] Javier Levy Work Phone: [facility] Work Phone: Start: 12-11-2022 End: 12-11-[address] Javier Levy Work Phone: [facility]-Laboratory Start: 11-08-2022 End: 11-08-[address] [facility]avier Levy [facility] Start: 11-02-2022 End: 11-02-[address] Javier Levy Work Phone: [facility] Work Phone: Start: 11-02-2022 End: 11-02-[address] [facility] Start: 10-19-2022 End: 10-19-[address] Javier Levy Work Phone: [facility] Start: 09-20-2022 End: 09-20-2022 ambulatory [facility] Work Phone: Start: 09-20-2022 End: 09-20-2022 Patient encounter procedure [facility] Start: 08-09-2022 End: 08-09-2022 ambulatory [facility] Work Phone: Start: 08-09-2022 End: 08-09-2022 Patient encounter procedure [facility] Start: 05-30-2022 Telephone encounter Kimmy Wright APRN.HOME SERVICE TECHNICIAN Work Phone: [facility] Comment on above: Results Start: 05-28-2022 End: 05-28-2022 Patient encounter procedure Kimmy Caal APRN.HOME SERVICE TECHNICIAN Work Phone: [facility] Comment on above: Urinary frequency (P rimary Dx) Start: 05-28-2022 Telephone encounter Beverley newman MD Work Phone: [facility] Comment on above: UTI Start: 05-11-2022 [...] procedure Dr. Javier Levy Work Phone: [facility]-Laboratory, Specimen Start: 01-22-2022 End: 01-22-[address] Javier Levy Work Phone: [facility] Start: 11-16-2021 Telephone encounter Arnaldo [...] Start: 10-26-2021 End: 10-26-2021 Patient encounter procedure [facility]-Laboratory, Specimen Start: 10-16-2021 Telephone encounter Les caballero APRN.HOME SERVICE TECHNICIAN Work Phone: Urogynecology Comment on above: Results Start: 10-12-2021 End: 10-12-2021 Nursing evaluation of patient and report Nurse [employer] Work Phone: Urology Comment on above: Abnormal urine; Urinary tract infection without hematuria, site unspecified Start: 10-09-2021 Telephone encounter Les caballero APRN.HOME SERVICE TECHNICIAN Work Phone: Urogynecology Comment on above: Results Start: 09-29-2021 ambulatory Moira Westbrook RN NURSE [employer]ESS[employer] Comment on above: Information Start: 09-29-2021 End: 09-29-2021 Patient encounter procedure Les Griffin APRN.HOME SERVICE TECHNICIAN Work Phone: URO/Gynecology Comment on above: Encounter for fittin g and adjustment of pessary (Primary Dx); Complete uterovaginal prolapse; Cystocele, midline; Rectocele Start: 09-25-2021 Telephone encounter Les L Fo x ENGINE WATCHMAN.HOME SERVICE TECHNICIAN Work Phone: Urogynecology Comment on above: Results Start: 09-20-2021 End: 09-20-2021 Patient encounter procedure Beverley Luna MD Work Phone: URO/Gynecology Comment on above: Gross hematuria (Barbara álvarez Dx); Complete uterovaginal prolapse; Cystocele, midline; Rectocele; Poorly controlled diabetes mellitus (HCC) Start: 03-11-2018 Patient encounter NATALIE Salcedo cility:[facility] Start: 03-11-2018 End: 03-12-2018 Patient encounter ACE SOLIZ Facility:[facility] Procedures Date Procedure Procedure Detail Performing Clinician Start: 02-24-2025 Total iron binding capacity measurement Dr. Melanie Levy MD Work Phone: Start: 02-24-2025 Urine microalbumin/creatinine ratio measurement Dr. Melanie Levy MD Work Phone: Comment on above: Previous reported re sult: UNABLE TO CALCULATE mg/g CREEdited by: AUTOINAnabelle on 02/24/25:1547 AMENDED REPORT 02/24/25 1547 MALB:CREAT [...] 07-26-2024 Total iron binding capacity measurement Dr. Melanie Levy MD Work Phone: Start: 07-26-2024 Plain [...] Levy Work Phone: Start: 09-05-2023 Screening mammography Josse Levy Work Phone: Start: 03-25-2023 Antibody screen HENRI STEWART Comment on above: Order Comment: Speci men Type: BLOOD SPECIMENOrdering Facility: [facility] Address: [address] [place] [id number] Performed By: #### T [id number] ####[facility] BLOOD BANKCLIA [id number] [place] [address] [place] Start: 05-28-2022 Urnls dip stick/tabl et rgnt auto w/o microscopy Nadya Marvin APRN.[facility] Work Phone: Start: 04-18-2022 Urnls dip stick/tabl [...] P,Tdap,Td Vaccine (2 - Td or Tdap) [facility] Start: 09-11-2026 HPV TESTING HPV TESTING [facility] Start: 09-11-2026 PAP TESTING PAP TESTING [facility] Start: 02-03-2025 Evaluation of diagno stic study results [facility] Start: 09-04-2024 End: 09-04-2024 Patient encounter procedure 09/04/2024 2:00 PM EST Office Visit [facility] [address] [facility] [place] [id number] Nikole Jarrell DRILLER MACHINE [address] [place] [address] [facility] Start: 07-29-2024 Patient discharge [facility] Start: 07-27-2024 End: 07-28-2024 [facility] Start: 07-27-2024 Admission procedure [facility] Start: 07-27-2024 End: 07-27-2024 Administration of blood product [facility] Start: 07-26-2024 Application of intermittent pneumatic compression device [facility] Start: 07-26-2024 Assessment of risk o f venous thromboembolism [facility] Start: 07-26-2024 Care regimes management [facility] Start: 07-26-2024 Fall prevention [facility] Start: 07-26-2024 Insertion of cathete r into peripheral vein [facility] Start: 07-26-2024 Introduction of urin monica catheter [facility] Start: 07-26-2024 Measuring intake and output [facility] Start: 07-26-2024 Notification of physician [facility] Start: 07-26-2024 Oxygen therapy [facility] Start: 07-26-2024 Providing care accor ding to standard [facility] Start: 07-26-2024 Provision of activit y privileges [facility] Start: 07-26-2024 Referral to gastroenterology service [facility] Start: 07-26-2024 Referral to service [facility] Start: 07-26-2024 End: 07-26-2024 [facility] Start: 07-26-2024 Following clinical p athway protocol [facility] Start: 07-26-2024 Admission procedure [facility] Start: 07-26-2024 Patient referral to dietitian [facility] Start: 06-05-2024 End: 06-05-2024 Patient encounter procedure [facility] Comment on above: Arrived Start: 04-24-2024 End: 04-24-2025 EEG awake or drowsy EEG awake or drowsy Neurology Routine Partial symptomatic epilepsy with complex partial seizures, not intractable, without status epilepticus (CMS/HCC) Expected: 04/24/2024 (Approximate), [facility] Comment on above: Expected: 04/24/2024 (Approximate), Expires: 04/24/2025 Start: 04-24-2024 End: 04-24-2024 Patient encounter procedure [facility] Comment on above: Arrived Start: 03-01-2024 Influenza vaccination [facility] Start: 02-21-2024 End: 02-21-2024 Patient encounter procedure 02/21/2024 2:30 PM EDT Office Visit [facility] [address] [place] [id number] Nikole Jarrell DRILLER MACHINE [address] [place] [address] Arrived [facility] Comment on above: Arrived Start: 12-18-2023 Hemoglobin A1c measurement HbA1C [facility] Start: 10-04-2023 [facility] Start: 10-04-2023 Patient discharge [facility] Start: 09-30-2023 [facility] Start: 09-30-2023 Patient referral to dietitian [facility] Start: 09-30-2023 Measuring intake and output [facility] Start: 09-26-2023 [facility] Start: 09-26-2023 Recommendation to co ntinue with treatment [facility] Start: 09-26-2023 [facility] Start: 09-25-2023 Urinary bladder training [facility] Start: 09-25-2023 Admission procedure [facility] Start: 09-25-2023 Patient referral to dietitian [facility] Start: 09-25-2023 Referral to occupati onal therapist [facility] Start: 09-25-2023 Referral to service [facility] Start: 09-25-2023 Vital signs measurements [facility] Start: 09-25-2023 [facility] Start: 09-25-2023 Incentive spirometry [facility] Start: 09-25-2023 Speech therapy assessment [facility] Start: 09-17-2023 [facility] Start: 09-17-2023 Airway suction technique [facility] Start: 09-17-2023 Creatine kinase [Enz ymatic activity/volume] in Serum or Plasma [facility] Start: 09-17-2023 Triglycerides measurement [facility] Start: 09-17-2023 Oxygen therapy [facility] Start: 09-17-2023 [facility] Start: 09-17-2023 [facility] Start: 09-14-2023 [facility] Start: 09-05-2023 Dual energy X-ray absorptiometry Dexa Bone Density Study [facility] Start: 07-01-2023 Advance Directive Discussion Advance Directive Discussion [facility] Start: 07-01-2023 Behavioral Health Screening Behavioral Health Screening [facility] Start: 07-01-2023 Depression Assessment Depression Ass essment [facility] Start: 2023 Pneumococcal Vaccine : 65+ Years (1 of 1 - PCV) Pneumococcal Vaccine: 65+ Years (1 of 1 - PCV) [facility] Start: 2023 Screening for osteoporosis Bone Dens ity Screening [facility] Start: 03-01-2023 Covid-19 Vaccine ( season) Covid-19 Vaccine () [facility] Start: 03-01-2023 Influenza vaccination Influenza Vacc ine (#1) [facility] Start: 05-28-2022 End: 07-28-2022 Bacteria identified in Urine by Culture [facility] Work Phone: Comment on above: Expected: 05/28/2022 (Approximate), Expires: 07/28/2022 Ordered: 05/28/2022 Start: 03-01-2022 Influenza vaccination C [facility] Start: 10-16-2021 End: 12-16-2021 CREATININE BLD CREATININE BLD Lab Routine Gross hematuria Expected: 10/16/2021, Expires: 12/16/2021 [facility] Work Phone: Comment on above: Expected: 10/16/2021 , Expires: 12/16/2021 Start: 10-09-2021 End: 12-09-2021 Bacteria identified in Urine by Culture URINE CULTURE Microbiology Routine Fungus present in urine Expected: 10/09/2021 (Approximate), Expires: 12/09/2021 [facility] Work Phone: Comment on above: Expected: 10/09/2021 (Approximate), Expires: 12/09/2021 Start: 10-09-2021 End: 12-09-2021 Urinalysis complete panel - Urine URINALYSIS, WITH MICROSCOPIC Lab Routine Fungus present in urine Expected: 10/09/2021 (Approximate), Expires: 12/09/2021 [facility] Work Phone: Comment on above: Expected: 10/09/2021 (Approximate), Expires: 12/09/2021 Start: 08-16-2021 COVID-19 VACCINE (4 - Booster for Pfizer series) COVID-19 VACCINE (4 - Booster for Pfizer series) [facility] Start: 07-01-2021 DEPRESSION ASSESSMENT DEPRESSION ASS ESSMENT [facility] Start: 06-10-2021 COVID-19 VACCINE (4 - Booster for Pfizer series) COVID-19 VACCINE (4 - Booster for Pfizer series) [facility] Start: 03-01-2021 Influenza vaccination INFLUENZA (#1) [facility] Start: 01-24-2019 Hepatitis B surface antibody level LDL Cholesterol [facility] Start: 04-26-2018 Hemoglobin A1c measurement HbA1C [facility] Start: 04-11-2018 Mammography MAMMOGRAM [facility] Start: 04-11-2018 Screening for malign ant neoplasm of breast Mammogram Screening [facility] Start: 2018 RSV Vaccine (1 - 1-d ose 60+ series) RSV Vaccine (1 - 1-dose 60+ series) [facility] Start: 04-04-2016 Hemoglobin A1c/Hemoglobin.total in Blood HBA1C [facility] Start: 2008 Influenza vaccination LUNG CANCER [facility] Start: 2008 Screening for malign ant neoplasm of lung Lung Cancer Screening [facility] Start: 2008 SHINGRIX VACCINE (1 of 2) HOBBS GRIX VACCINE (1 of 2) [facility] Start: 2003 COLOGUARD (FIT-DNA) COLOGUARD (FIT-D NA) [facility] Start: 2003 Colonoscopy COLONOSCOPY [facility] Start: 2003 COLORECTAL CANCER SCREENING COLORECTAL CANCER SCREENING [facility] Start: [address] COLONOGRAPHY [facility] Start: 2003 FECAL OCCULT BLOOD FECAL OCCULT BLOO D [facility] Start: 2003 Screening for malign ant neoplasm of colon [facility] Start: 2003 SIGMOIDOSCOPY SIGMOIDOSCOPY [facility] Start: 1998 Screening for malign ant neoplasm of breast Mammogram [facility] Start: 1977 Urine microalbumin profile DTAP,TDAP ,TD (1 - Tdap) [facility] Start: 1976 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 DAGMAR DISEASE VISIT ANNUAL PCP TEAM CHRONIC DISEASE VISIT [facility] Start: 1976 BP CONTROLLED (<130/80) BP CONTROLLE D (<130/80) [facility] Start: 1976 Hepatitis B surface antibody level LDL CHOLESTEROL [facility] Start: 1976 HEPATITIS C SCREENING HEPATITIS C [facility] Start: 1976 Hepatitis C screening Hepatitis C [facility] Start: 1976 HIV SCREENING HIV SCREENING [facility] Start: 1976 HIV screening HIV Screening [facility] Start: 1974 ONE PNEUMOVAX PRIOR TO AGE 65 ONE PNEUMOVAX PRIOR TO AGE 65 [facility] Start: 1970 Adult depression scr eening assessment DEPRESSION SCREENING [facility] Start: 1968 3 comp foot exam completed DIABETIC FOOT EXAM [facility] Start: 1968 Diabetic foot examination Diabetic F oot Exam [facility] Start: 1968 Glaucoma screening Dilated Retinal E xam [facility] Start: 1968 Hepatitis B screening URINE ALBUMIN:CREATININE RATIO [facility] Start: 1968 Hepatitis C antibody , confirmatory test DILATED RETINAL EXAM [facility] Start: 1964 PNEUMOCOCCAL (1 - PCV) PNEUMOCOCCAL (1 - PCV) [facility] Start: 1963 COVID-19 VACCINE (1) COVID-19 VACCIN E (1) [facility] Start: 1958 Screening for malign ant neoplasm of colon [facility] Bacteria identified in Sputum by Respiratory culture [facility] Bacteria identified in Urine by Culture URINE CULTURE Microbiology Routine Gross hematuria Ordered: 09/20/2021 [facility] Work Phone: Comment on above: Ordered: 09/20/2021 Bacteria identified in Urine by Culture URINE CULTURE Microbiology Routine Acute cystitis without hematuria Ordered: 04/18/2022 [facility] Work Phone: Comment on above: Ordered: 04/18/2022 CBC W Auto Different ial panel - Blood [facility] Comprehensive metabo lic 2000 panel - Serum or Plasma [facility] End: 11-15-2022 Ct abdomen & pelvis w/o contrst 1/> body re CT UROGRAM WO/W IVCON Radiology Routine Gross hematuria 1 Occurrences starting 10/16/2021 until 11/15/2022 [facility] Work Phone: Comment on above: 1 Occurrences starti ng 10/16/2021 until 11/15/2022 CYSTOSCOPY WHI CYSTOSCOPY WHI Procedures Routine Gross hematuria 1 Occurrences starting 10/16/2021 [facility] Work Phone: Comment on above: 1 Occurrences starti ng 10/16/2021 CYTOLOGY NON-HEMMER AUTOMATIC CYTOLOGY NON-GY N Lab Routine Gross hematuria Ordered: 10/16/2021 [facility] Work Phone: Comment on above: Ordered: 10/16/2021 CYTOLOGY NON-HEMMER AUTOMATIC CYTOLOGY NON-GY N Lab Routine Gross hematuria Ordered: 11/03/2021 [facility] Work Phone: Comment on above: Ordered: 11/03/2021 Ferritin [Mass/volum e] in Serum or Plasma [facility] Iron and Iron bindin g capacity panel - Serum or Plasma [facility] Lipid 1996 panel - S manohar or Plasma [facility] Microscopic observat ion [Identifier] in Unspecified specimen by Gram stain [facility] Patient Education [facility] Work Phone: Patient referral [facility] Work Phone: Protein measurement [facility] Protein measurement [facility] Thyroid stimulating hormone measurement [facility] Urinalysis complete panel - Urine URINALYSIS, WITH MICROSCOPIC Lab Routine Gross hematuria Ordered: 09/20/2021 [facility] Work Phone: Comment on above: Ordered: 09/20/2021 Urinalysis complete panel - Urine URINALYSIS, WITH MICROSCOPIC Lab Routine Acute cystitis without hematuria 04/18/2022 9:27 AM EDT [facility] Work Phone: Urine microalbumin/creatinine ratio measurement [facility] Vitamin D, 25-hydrox y measurement [facility] Immunizations Immunization Date Immunization Notes Care Provider [facility] 03-20-2024 influenza, high dose seasonal, preservative-free Dr. Melanie Levy MD Work Phone: [facility] 03-20-2024 influenza virus vaccine, unspecified formulation Nikole Jarrell NP Work Phone: [facility] 08-15-2023 tetanus toxoid, redu dena diphtheria toxoid, and acellular pertussis vaccine, adsorbed Dr. Melanie Levy MD Work Phone: [facility] 05-16-2023 influenza, injectabl e, quadrivalent, preservative free Dr. Melanie Levy MD Work Phone: [facility] 05-16-2023 Pneumococcal Vaccine PCV20 (Prevnar 20) Dr. Melanie Levy MD Work Phone: [facility] 04-09-2023 influenza, injectabl e, quadrivalent, preservative free Dr. Melanie Levy Work Phone: [facility] 08-22-2022 tetanus toxoid, redu dena diphtheria toxoid, and acellular pertussis vaccine, adsorbed Dr. Melanie Levy MD Work Phone: [facility] 04-26-2022 influenza, injectabl e, quadrivalent, preservative free Dr. Melanie Levy MD Work Phone: [facility] 04-26-2022 influenza virus vaccine, unspecified formulation Yue Jeterioana ROJAS Work Phone: [facility] 12-25-[address] Melanie Levy MD Work Phone: [facility] 10-18-2021 Pneumococcal Vaccine PCV20 (Prevnar 20) Dr. Melanie Levy MD Work Phone: [facility] 10-18-[address] Melanie Levy MD Work Phone: [facility] 06-15-2021 influenza, injectabl e, quadrivalent, preservative free Dr. Melanie Levy MD Work Phone: [facility] 04-15-2021 Covid (Pfizer) Dr. Fausto Levy MD Work Phone: [facility] 09-27-2020 Covid (Pfizer) Dr. Fausto Levy MD Work Phone: [facility] 09-06-2020 Covid (Pfizer) Dr. Fausto Levy MD Work Phone: [facility] 04-15-2020 influenza, injectabl e, quadrivalent, preservative free Dr. Javier Levy Work Phone: [facility] 04-15-2020 influenza, seasonal, injectable [facility] 04-15-2020 influenza, seasonal, injectable, preservative free Dr. Melanie Levy MD Work Phone: [facility] 04-13-2019 influenza, injectabl e, quadrivalent, preservative free Dr. Melanie Levy MD Work Phone: [facility] 04-13-2019 pneumococcal polysaccharide vaccine, [address] Melanie Levy MD Work Phone: [facility] 01-24-2018 pneumococcal polysaccharide vaccine, [address] Melanie Levy MD Work Phone: [facility] 03-20-2017 influenza, injectabl e, quadrivalent, preservative free Dr. Melanie Levy MD Work Phone: [facility] 04-20-2015 influenza, seasonal, injectable, preservative free Dr. Melanie Levy MD Work Phone: [facility] Payers Date Payer Category Payer Private Health Insurance [id number] 2024 Self-pay [id number] 2023 [facility] er [id number] 2023 Medicare [id number] 2023 Unknown [id number] 2023 Medicare [id number] 2021 Unknown [employer] PPO [id number] 2021-Present [phone] [address] [place] [address] PPO [id number] 2020 Unknown [employer] PPO OOS [id number] 2020-Present [phone] [address] [place] [address] PPO [id number] .7.3.090134.315 2008 Unknown 1960 Unknown [id number] 2.16.840.1.179869.3.579.2 .1259 1960 Unknown [id number] 2.16.840.1.267753.3.579.2 .1259 1960 Unknown [id number] 2.16.840.1.564852.3.579.2 .1259 Unknown [id number] Unknown [id number] Unknown ANTHEM SECONDARY [id number] Unknown [id number] 2.16.840.1.805633.3.579.2 .462 Unknown [id number] 2.16.840.1.983889.3.579.2 .462 Unknown [id number] 2.16.840.1.589450.3.579.2 .462 Unknown [id number] 2.16.840.1.856038.3.579.2 .462 Unknown [id number] 2.16.840.1.765349.3.579.2 .462 Unknown [id number] 2.16.840.1.548168.3.579.2 .462 Unknown [id number] 2.16.840.1.705462.3.579.2 .462 Unknown [id number] 2.16.840.1.448254.3.579.2 .462 Unknown [id number] 2.16.840.1.774346.3.579.2 .462 Unknown [id number] 2.16.840.1.940214.3.579.2 .462 Unknown [id number] 2.840.1.019307.3.579.2 .462 Unknown [id number] 2..840.1.095284.3.579.2 .462 Unknown [id number] 2.840.1.908316.3.579.2 .462 Unknown [id number] 2.840.1.506158.3.579.2 .462 Unknown [id number] 2.840.1.335012.3.579.2 .462 Unknown [id number] 2..840.1.106304.3.579.2 .462 Unknown [id number] 2.840.1.285733.3.579.2 .462 Unknown [id number] 2.840.1.777911.3.579.2 .462 Unknown [id number] 2.840.1.734930.3.579.2 .462 Unknown [id number] 2.16.840.1.135373.3.579.2 .462 Unknown [id number] 2.16.840.1.211624.3.579.2 .462 Unknown [id number] 2.16.840.1.392822.3.579.2 .462 Unknown [id number] 2.840.1.238370.3.579.2 .462 Unknown [id number] 2.16.840.1.704254.3.579.2 .462 Unknown [id number] 2.16.840.1.029293.3.579.2 .462 Unknown [id number] 2.16.840.1.030684.3.579.2 .462 Unknown [id number] 2.16.840.1.291766.3.579.2 .462 Unknown [id number] 2.16.840.1.749095.3.579.2 .462 Unknown [id number] 2.16.840.1.074878.3.579.2 .462 Unknown [id number] 2.16.840.1.175282.3.579.2 .462 Unknown [id number] 2.16.840.1.346715.3.579.2 .462 Unknown [id number] 2.840.1.577659.3.579.2 .462 Social History Date Type Detail Facility Start: 11-15-2015 End: 10-15-2023 Tobacco smoking status NHIS Ex-smoker [facility] End: 09-29-2013 History of tobacco use Current smoker [facility] Start: 11-15-2015 End: 02-21-2024 Cigarettes smoked current (pack per day) - Reported 1 [facility] Start: 11-15-2015 End: 10-15-2023 Tobacco use and exposure Smokeless tobacco non-user [facility] Start: 09-20-2021 End: 04-01-2023 Alcohol intake Current non-drinker of alcohol (finding) [facility] Start: 1960 Sex Assigned At Not on file [facility] Start: 09-01-2021 End: 11-03-2021 Exposure to SARS-CoV-2 (event) Not sure [facility] Start: 06-29-2020 End: 10-11-2023 Tobacco smoking status CAIS Unknown if ever smoked [facility] Start: 04-14-2020 Rare [facility] Start: 04-14-2020 None [facility] Start: 04-14-2020 Spouse/ Signif icant Other [facility] Start: 04-28-2020 Non-smoker [facility] Start: 1960 Sex Assigned At Female [facility] End: 09-29-2013 History of tobacco use Cigarette Smoker [facility] Start: 04-01-2023 End: 02-21-2024 Tobacco use panel [facility] National Score (1-100), lower number is lower risk 75 [facility] Start: 10-15-2023 End: 02-21-2024 Alcoholic beverage intake Lifetime non-drinker (finding) [facility] Start: 07-26-2024 Tobacco smoking status NHIS Never smoked tobacco (finding) [facility] Start: 09-24-2024 Sex Female (finding) [facility] NEGATED: Highlighted row Not [facility] Medical Equipment Procedure Code Equipment Code [...] FDA Start: 02-07-2020 Colonoscopy Ligation clip, metallic [id number] FDA Start: 07-28-2024 Sling Desara Urinary Incon Bl - [id number] Start: 04-01-2023 Goals Date Patient Goal Desired Activity /State Functional Status Date Assessment Result Facility 07-29-2024 Functional status Ambulates [facility] Work Phone: 10-05-2023 Functional status Chair [facility] Work Phone: Mental Status Date Assessment Result Facility 07-29-2024 Cognitive function Voice/Name [facility] Work Phone: 10-05-2023 Cognitive function Voice/Name [facility] Work Phone: 09-17-2023 Cognitive function Comprehension Ability Unable to Comprehend [facility] Work Phone: 09-13-2023 Cognitive function Level Of Cons ciousness Awake;Alert;Appropriate;Follow s Commands [facility] Work Phone: Clinical Notes 11-15-2015 to 01-20-2025 Note Date & Type Note Facility 01-20-2025 Radiology Diagnostic study note [facility] Imaging Services [address] [place] [address] Ankle min 3 Views MR#: [id number] Acct: [id number] Name: REJI OLIVA Rep #: [id number] : 1960 F 64 From: Jonna Iniguez MD PCP: Dr. Melanie Levy MD Status: REG CLI Study:Ankle min 3 Views Date of Exam: Exam# [id number] Ordering Dr: [facility] kim[facility] De Jesus [place] PROCEDURE: ANKLE MIN 3 VIEWS 01/20/2025 REASON FOR EXAM: PAIN TECHNIQUE: ANKLE MIN 3 VIEWS COMPARISON: Left ankle radiographs 02/06/2020. FINDINGS: Bones: No acute fracture. No aggressive osseous lesions. Joints: Normal alignment. Mortise appears intact. No effusion. Soft tissues: Soft tissues are unremarkable. RAD/Ankle min 3 Views IMPRESSION: NEGATIVE ANKLE SERIES Reading Location: [facility] CC: Dr. Melanie Levy MD; LOY Simmons ~ Automation And Controls Manager: Signed [facility] 01-20-2025 Radiology Diagnostic study note [facility] Imaging Services [address] [place] [address] Foot min 3 Views MR#: [id number] Acct: [id number] Name: REJI OLIVA Rep #: [id number] : 1960 F 64 From: Jonna Iniguez MD PCP: Dr. Melanie Levy MD Status: REG CLI Study:Foot min 3 Views Date of Exam: Exam# [id number] Ordering Dr: [facility] kimber[facility] De Jesus PROCEDURE: [...] DEGENERATIVE OSTEOARTHROSIS. NO ACUTE FINDINGS. Reading Location: [facility] CC: Dr. Melanie Levy MD; LOY Simmons ~ Automation And Controls Manager: Signed [facility] 11-19-2024 Evaluation note Diagnosis Onset Date Resolution Anemia acute November 19, 2024 9:05am Enteritis acute November 19, 2024 9:05am [facility] Work Phone: 1(347) 635-474205-22-2025 Evaluation note* Diagnosis Onset Date Resolution Status Admit Date Anemia acute November 19, 2024 9:05am Enteritis acute November 19, 2024 9:05am Left ankle strain acute January 202024 10:57am Plantar fasciitis, left acute J mickey 2024 10:57am Strain of left foot acute January 20, 2025 10:57am [facility] Work Phone: 1(621) 504-399205-22-2025 Evaluation note* Diagnosis Onset Date Resolution Status Admit Date Anemia acute November 19, 2024 9:05am Enteritis resolved November 19, 2024 9:05am Plantar fasciitis, left acute J mickey 2024 10:57am Left ankle strain resolved January 202024 10:57am Strain of left foot resolved January 20, 2025 10:57am [facility] [employer] Work Phone: 1(290) 226-795105-22-2025 Evaluation note* Diagnosis Onset Date Resolution Status Admit Date Anemia acute November 19, 2024 9:05am Enteritis resolved November 19, 2024 9:05am Plantar fasciitis, left acute J mickey 2024 10:57am Left ankle strain resolved January 202024 10:57am Strain of left foot resolved January 20, 2025 10:57am Benign essential hypertension acute February 03, 2025 9:50am Heart murmur, systolic acute Au hilario 2024 9:50am [facility] [employer] Work Phone: 1(530) 477-957505-22-2025 Evaluation note* Diagnosis Onset Date Resolution Status [...] Au hilario 2024 9:50am Anemia acute February 23, 2 025 8:54am Loose stools acute February 23, 2025 8:54am [facility] [employer] Work Phone: 1(140) 684-143505-22-2025 Evaluation note* Diagnosis Onset Date Resolution Status [...] Au hilario 2024 9:50am Anemia acute February 23, 025 8:54am Loose stools acute February 23, 2025 8:54am Benign essential hypertension acute February 24, 2025 9:06am Diabetes mellitus type 2 in nonobese acute February 24 9:06am Vitamin D deficiency acute 2024 9:06am Mixed hyperlipidemia chronic 2024 9:06am [facility] Work Phone: 1(932) 213-428105-22-2025 Evaluation note* Diagnosis Onset Date Resolution Status [...] February 03, 2025 9:50am Anemia acute February 23 025 8:54am Loose stools acute February 23, 2025 8:54am Benign essential hypertension chroni c February 24, 2025 9:06am Chronic renal failure, stage 3a 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 February 24, 2025 9:06am Diabetes mellitus type 2 in nonobese chronic February 24 9:06am Mixed hyperlipidemia chronic Janu 2024 9:06am Overweight chronic February 24 025 9:06am Vitamin D deficiency chronic 2024 9:06am [facility] Work Phone: 1(157) 417-157402-12-2025 Evaluation note* Diagnosis Onset Date Resolution Status Admit Date Anemia acute August 12, 2024 8:55am Diabetes chronic September 07 3:45pm Hypertension chronic September 07, 2024 3:45pm Microalbuminuria chronic September 072024 3:45pm Mixed hyperlipidemia chronic Alexx h 2024 3:45pm Neuropathy chronic September 07 3:45pm Overweight September 07 3:45pm Enteritis acute September 17 8:52am Anemia acute November 19, 2024 9:05am Enteritis acute November 19, 2024 9:05am [facility] Work Phone: 1(942) 458-978701-29-2025 [facility]01-27-2025 Evaluation note* Diagnosis Onset Date Resolution Status [...] 07 3:45pm Enteritis acute September 17 8:52am [facility] Work Phone: 1(721) 274-954001-27-2025 Evaluation note* Diagnosis Onset Date Resolution Status Admit Date Acute anemia resolved July 9:59am Melena resolved July 27, 2024 9:59am Syncope resolved July 27, 2024 9:59am Anemia acute August 12, 2024 8:55am Diabetes chronic September 07 3:45pm Hypertension chronic September 07, 2024 3:45pm Microalbuminuria chronic September 072024 3:45pm Mixed hyperlipidemia chronic Alexx h 2024 3:45pm Neuropathy chronic September 07 3:45pm Overweight September 07 3:45pm Enteritis acute September 17 8:52am Anemia acute November 19, 2024 9:05am Enteritis acute November 19, 2024 9:05am [facility] Work Phone: 1(846) 230-475912-06-2024 History of Present illness Narrative* Nikole Jarrell, DRILLER MACHINE - 06/05/2024 3:00 PM EST Images from the original note were not included. Chief Complaint Patient presents with Seizures Subjective HPI Reji Oliva, 64 y.o., female presents to follow-up on [...] swing without shuffle, rapid alternating movements and kpnmbj-re-pmeo intact, sensation intact in all extremities Psych: [...] plan, and return instructions documented in [id number] Telephone encounter Note* Telephone Encounter - Henri Vargas - 04/27/2024 7:55 AM EDT 72 hr EEG order faxed to [facility] central scheduling at : [phone] [place] [id number] Miscellaneous Notes* Telephone Encounter - Henri Vargas - 04/27/2024 7:55 AM EDT 72 hr EEG order faxed to [facility] central scheduling at : [phone] * Telephone Encounter - Henri Vargas - 04/24/2024 2:[address] new EEG order to be sent to [facility] documented in this encounterSaint [id number] Telephone encounter Note* Telephone Encounter - Henri Vargas - 04/24/2024 2:[address] new EEG order to be sent to [id number] History of Present illness Narrative* Nikole Jarrell NP - 04/24/2024 2:00 PM EDT Images from the original note were not included. Chief Complaint Patient presents with Seizures Subjective HPI Reji Oliva, 64 y.o., female presents to follow-up on [...] swing without shuffle, rapid alternating movements and mfnliz-wk-cbzs intact Psych: Appropriately groomed and dressed, makes [...] plan, and return instructions documented in this encounterSaint [id number] History of Present illness Narrative* Nikole Jarrell NP - 02/21/2024 2:30 PM EDT Images from the original note were not included. Chief Complaint Patient presents with eeg results Seizures Subjective HPI Reji Oliva, 63 y.o., female presents to follow-up on [...] swing without shuffle, rapid alternating movements and jpctfh-ua-dygc intact Psych: Appropriately groomed and dressed, makes [...] and follow up plan documented in this [facility]05-09-2024 Evaluation note* Diagnosis Onset Date Resolution Status Acute anemia acute Chronic renal failure, stage 3a acute Debility acute Seizures acute Encephalopathy acute resolve d PRES (posterior reversible encephalopathy syndrome) resolved [facility] Work Phone: 1(322) 790-996804-08-2024 NoteHNO ID: [id number] Author: ?, ?, ? Service: ? Author Type: ? Type: Progress Notes Filed: 10/07/2023 15:51 Note Text: Per [facility] Eligibility report patient meets [facility]C criteria: MV >= 72 hours ICU stay, delirium and ICU stay >=72 hours, but found through chart review was never under the care of or seen by [facility] pulmonary/critical care staff in the Neuro ICU during the 09/16- [place] admission. Not enrolled in the [facility] Program. [facility]C Enrollment Status [facility] Call Attempt None Enrolled in [facility]C Program? No - Does not meet [facility] Criteria[facility] History of Present illness Narrative* ANDREEA Garcia Marianne - 10/07/2023 3:51 PM EDT Per [facility] Eligibility report patient meets [facility] criteria: MV >= 72 hours ICU stay, delirium and ICU stay >=72 hours, but found through chart review was never under the care of or seen by [facility] pulmonary/critical care staff in the Neuro ICU during the 09/16- [place] admission. Not enrolled inthe [facility]C Program. [facility] Enrollment Status [facility] Call Attempt None Enrolled in [facility] Program? No - Does not meet [facility] Criteria [facility] NotePatient Outreach (PULMMN) REJI OLIVA ([id number]) 1960 F Date Time Provider Department 10/07/23 [...] Date Reviewed: 09/22/2023 Reviewed by: [place], KODI - Fully Assessed Prescriptions as of 10/07/2023 [...] Encounter Status:Closed by ANDREEA GARCIA MARIANNE on 10/07/23[facility]04-[facility] Evaluation note* Diagnosis Onset Date Resolution [...] chronic PRES (posterior reversible encephalopathy syndrome) resolved [facility] Work Phone: 1(812) 786-290404-05-2024 Discharge summary Author Henri Kelly [facility] October 04, 2023 4:02pm Note Date/Time October 04, 2023 3:46 pm [facility] Medical Records Department [address] [place] [address] Discharge Summary 10/04/23 1507 MR#: [id number] Acct: [id number] Name: REJI OLIVA Rep #:[id number] : 1960 63 From: Henri Kelly DO PCP: Dr. Melanie Levy MD Status :ADM IN Location: [place] [address] Providers Date of Admission: 09/25/23 Date of [...] 1. Discharge home with outpatient PT/ST at [facility]. No DME needed. 2. Follow-up with Dr. [...] Spent on Discharge: 40 Hospital Course: REJI OLIVA, is a 63 YO F with a PMH of hypertension, hyperlipidemia, poorly controlled type 2 diabetes mellitus, anxiety/depression/PTSD, remote tobacco dependence and GERD who presented to [facility] ED for altered mental status. A NC CT brain showed no acute pathology. She had status epilepticus upon arrivalat the ED and was given Ativan and then loaded with Keppra. She was intubated toprotect her airway. Blood pressure at arrival to the ER was 260/110 and she wastreated with IV labetalol. Blood glucose was greater than 350. The ED doctor was in contact with [facility] hospital and the pt was transferred to [facility] with a diagnosis of status epilepticus possibly related to PRES. She had no further seizures. BP was gradually brought under control at [facility] and the pt was extubated. She had an LP and infectious W/U was negative for an infectious etiology of AMS/seizures. The most likely dx for the AMS and seizures is PRES due to uncontrolled HTN. She had recently been seen by her PCP and the ED for c/o neck pain and received prescriptions for VAlium and [employer]. I think this contributed to not remembering [...] diet. She was seen by PT/OT/ST at [facility] and acute rehab was recommended at [facility] from [facility] on 09/25/23 for 3 hours of [...] the diabetic clinic run bythe dietitians at [facility] for further education. BP is well controlled at [facility] on Coreg 12.5 mg twice daily, amlodipine [...] controlled. More is doing much better at [facility]. She is able to complete all her [...] supervision. She will be following up at [facility] for continued speech therapy and physical therapy [...] from neurology on 10/15/2023 at 12:45 PM[facility]-up with Dr. [...] mixed up by the retail pharmacist at [facility]. At discharge she was instructed to use Voltaren gel which can be purchased dmab-mch-gbsfncv twice a day as needed for neck [...] this. I am referring you to an plaster mechanic (Dr. Adam Alvarado) to help you control [...] your first appt with Dr. Levy. OFFICE: [phone] CELL: [phone] NURSES STATION ON REHAB: [phone] Discharge Orders/Prescriptions Prescriptions: New atorvastatin 20 mg [...] Self Care Charges/Coding Visit Charges Inpatient E&M: 79490 Disch Hosp >30min 10/04/23 1602 <Electronically signed by Henri Kelly DO> Cosigner Signature (if applicable): CC: Dr. Melanie Levy MD; Dr. Henri Kelly DO; Dr. Power Paul MD; Dr. Adam Alvarado MD~ Signed [facility] Work Phone: 1(416) 828-837804-05-2024 Discharge summary Author Henri Kelly [facility] Linda 5th, 2024 3:07pm Note Date/Time October 04, 2023 12:0 2pm [facility] Medical Records Department [address] [place] [address] Instructions for Home/Discharge Instructions 10/04/23 1156 MR#: [id number] Acct: [id number] Name: REJI OLIVA Rep #:[id number] : 1960 63 From: Henri Kelly [...] ADD. [facility] had no [facility] side [facility]. [...] this. I am referring you to an plaster mechanic (Dr. Adam Alvarado) to help you control [...] your first appt with Dr. Levy. OFFICE: [phone] CELL: [phone] NURSES STATION ON REHAB: [phone] Discharge Orders/Prescriptions Prescriptions: New atorvastatin 20 mg [...] can be placed): Home, Self Care 10/04/23 1507<Electronically signed by Henri Kelly DO>Henri Kelly DO CC: Dr. Melanie Levy MD; Dr. Power Paul MD; Dr. Adam Alvarado MD ~ Signed [facility] Work Phone: 1(138) 590-223304-05-2024 Progress note Author [facility] October 04, 2023 11:54am Note Date/Time October 03, 2023 9:59 am [facility] Medical Records Department [address] [place] [address] Progress Note 10/03/23 0957 MR#: [id number] Acct: [id number] Name: REJI OLIVA Rep #:[id number] : 1960 63 From: Henri Kelly DO PCP: Dr. Javier Levy MD Status: ADM IN Location: [place] [address] Subjective Subjective Afebrile VSS-blood pressure is well-controlled. [...] 15 units nightly. Will DC SSI at DC. Still very forgetful. Needs a fair amount [...] more confused with things like Valium and Cook Sta. 7. she tells me that she is having less pain in her feet at night since the Gabapentin was started. She also tells me that the pain is always worse at night. Will change Gabapentin to HS only. Charges/Coding Visit Charges Inpatient E&M: 17307 Subs Hosp L1 10/04/23 1154 <Electronically signed by Henri Kelly DO> Henri Kelly DO Cosigner Signature (if applicable): CC: ~ Signed [facility] Work Phone: 1(115) 632-896804-03-2024 Progress note Author Henri Orellanamarlys [facility] October 02, 2023 10:39am Note Date/Time October 02, 2023 10:2 9am [facility] Medical Records Department [address] [place] [address] Progress Note 10/02/23 1025 MR#: [id number] Acct: [id number] Name: REJI OLIVA Rep #:[id number] : 1960 63 From: Henri Kelly DO PCP: Dr. Javier Levy MD Status: ADM IN Location: [place] [address] Subjective Subjective Afebrile VSS-blood pressure is well-controlled. [...] at HS Charges/Coding Visit Charges Inpatient E&M: 18367 Subs Hosp L1 10/02/23 1039 <Electronically signed by Henri Kelly DO> Henri Kelly DO Cosigner Signature (if applicable): CC: ~ Signed [facility] Work Phone: 1(508) 737-177804-02-2024 Progress note Author Henri Kelly [facility] October 01, 2023 5:00pm Note Date/Time October 01, 2023 1:04 pm [facility] Medical Records Department [address] [place] [address] Progress Note 10/01/23 1301 MR#: [id number] Acct: [id number] Name: REJI OLIVA Rep #:[id number] : 1960 63 From: Henri Kelly DO PCP: Dr. Javier Levy MD Status: ADM IN Location: [place] [address] Subjective Subjective Afebrile VSS-blood pressure is well-controlled [...] from rehab. She was seen by the size cutter today and received education on diet. She [...] to follow up with t neurologist in [place]. spent 43 minutes in the care of this patient today. 30 mins in education about goals for treatment of diabetes, hyperlipidemia and hypertension and also diet education. We reviewed her medications and what they are for. I answered all her questions. The additional 13 minutes was spent reviewing the chart, reviewing the lab and completing documentation. Charges/Coding Visit Charges Inpatient E&M: 86908 Subs Hosp L2 10/01/23 1700 <Electronically signed by Henri Kelly DO> Henri Kelly DO Cosigner Signature (if applicable): CC: ~ Signed [facility] Work Phone: 1(168) 195-754804-01-2024 Progress note Author Henri Kelly [facility] September 30, 2023 5:35pm Note Date/Time September 30, 2023 10:3 9am [facility] Medical Records Department [address] [place] [address] Progress Note 09/30/23 1031 MR#: [id number] Acct: [id number] Name: REJI OLIVA Rep #:[id number] : 1960 63 From: Henri Kelly DO PCP: Dr. Javier Levy MD Status: ADM IN Location: [place] [address] Subjective Subjective More was seen on team [...] had for breakfast. She had Cheerios, and Prydeinig muffin and jelly. When I pointed out that Cheerios and an Prydeinig muffing are both carbs she was shocked. She really has no idea what carbohydrates are and how to control her carb intake. She is agreeable to talking with the size cutter and I notified the size cutter of the consult. Jeff believes that More [...] When she was taking the Valium and Cook Sta I suspect she forgot to take her other medications. Jeff brought in all of her medications and the pill box......impossible to tell looking at the pill box if she was taking her medications properly or not. ST will work with her on properly setting up a pill box and will ask Bill to supervise for the first couple weeks [...] BP closely. Charges/Coding Visit Charges Inpatient E&M: 66481 Subs Hosp L2 09/30/23 1738 <Electronically signed by Henri Kelly DO> Henri Kelly DO Cosigner Signature (if applicable): CC: ~ Signed [facility] Work Phone: 1(613) 151-645504-01-2024 Progress note Author Henri Leticia [facility] September 30, 2023 12:10pm Note Date/Time September 29, 2023 12: 42pm [facility] Medical Records Department [address] [place] [address] Progress Note 09/29/23 1234 MR#: [id number] Acct: [id number] Name: REJI OLIVA Rep #:[id number] : 1960 63 From: Henri Kelly DO PCP: Dr. Javier Levy MD Status: ADM IN Location: [place] [address] Subjective Subjective Afebrile VSS-blood pressures are better [...] fluid intake Charges/Coding Visit Charges Inpatient E&M: 49419 Subs Hosp L1 09/30/23 1210 <Electronically signed by Henri Kelly DO> Henri Kelly DO Cosigner Signature (if applicable): CC: ~ Signed [facility] Work Phone: 1(349) 484-237003-31-2024 Progress note Author [facility] September 29, 2023 12:34pm Note Date/Time September 27, 2023 12: 39pm [facility] Medical Records Department [address] [place] [address] Progress Note 09/27/23 1237 MR#: [id number] Acct: [id number] Name: REJI OLIVA Rep #:[id number] : 1960 63 From: Henri Kelly DO PCP: Dr. Javier Levy MD Status: ADM IN Location: [place] [address] Subjective Subjective Afebrile VSS-blood pressure is too [...] at bedtime. Charges/Coding Visit Charges Inpatient E&M: 45705 Subs Hosp L1 09/29/23 1234 <Electronically signed by Henri Kelly DO> Henri Kelly DO Cosigner Signature (if applicable): CC: ~ Signed [facility] Work Phone: 1(497) 357-858503-29-2024 History and physical note Author Henri Kelly [facility] September 27, 2023 3:41pm Note Date/Time September 27, 2023 12: 37pm [facility] Medical Records Department [address] [place] [address] Post Admission Physician Tita 09/27/23 1237 MR#: [id number] Acct: [id number] Name: REJI OLIVA Rep #:[id number] : 1960 63 From: Henri Melquiades Leticia PCP: Dr. Javier Levy MD Status: ADM IN Location: [place] [address] Admission Information Primary Diagnosis:: Debility due to [...] Language Skills and Compensatory Strategies Patient requires 21/01 Rehabilitation Nursing for: Pain Issues, Identifying and preventing risk factors, Monitoring and reporting current medical conditions, Assisting with ambulation, transfer, and all ADL's, Teaching patients about disease process and medications, Family teaching, Providing safe environment, Bowel and Bladder Issues, Skin integrity and Medication Management Patient needs School Teacher/ Case Management for: Discharge Planning, Arranging Home [...] Therapy Was Preadmission Assessment Accurate?: Yes 09/27/23 1541 <Electronically signed by Henri Kelly DO> Cosigner Signature (if applicable): CC: ~ Signed [facility] Work Phone: 1(362) 198-752603-29-2024 History and physical note Author Henri Kelly [facility] September 27, 2023 3:33pm Note Date/Time September 26, 2023 11: 39am [facility] Medical Records Department [address] [place] [address] History & Physical Exam 09/26/23 1132 MR#: [id number] Acct: [id number] Name: REJI OLIVA Rep #:[id number] : 1960 63 From: Henri Kelly DO PCP: Dr. Javier Levy MD Status: ADM IN Location: [place] [address] HPI - General General Date of Admission: 09/25/23 Date of Service: 09/26/23 Chief Complaint: Debility due to PRES/seizures with intubation and mechanical ventilation. HPI Narrative REJI OLIVA, is a 63 YO F with a PMH of hypertension, hyperlipidemia, type2 diabetes mellitus, anxiety and GERD who presented to [facility] ED for altered mentalstatus. A FL CT brain showed no acute pathology. She had status epilepticus upon arrival at the ED and was given Ativan and then loaded with Keppra. she wasintubated to protect her airway. Blood pressure at arrival to the ER was 260/110 and she was treated with IV labetalol. Blood glucose was greater than 350. The ED doctor was in contact with [facility] hospital and the pt was transferredto [facility] with a diagnosis of status epilepticus possibly related to PRES. she hadno further seizures. BP was gradually brought under control at [facility] and the pt was extubated. She had an LP and infectious W/U was negative for an infectious etiology of AMS/seizures. The most likely dx for the AMS and seizures is PRES due to uncontrolled HTN. She was seen by PT/OT/ST and acute rehab was recommended at [facility]. [facility] for 3 hours of [...] the Ed and was prescribed Naprosyn and Cook Sta. She only took 1 dose of the Cook Sta and that was Saturday night. When she awoke she told her she would not take thatmedication again because she felt to out of it. She had a good day Saturday [id number] until later in the day when she had nausea and a SHAFER. Saturday she called offwork because she was not feeling well. Saturday the she was drowsy and incoherent and EMS was called and took her to [facility] ED. [facility] Medical History (Updated 09/27/23 @ 15:[address] 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 alcohol intake: never substance use type: does [...] the admission. Charges/Coding Visit Charges Inpatient E&M: 70747 Init Hosp L2 09/27/23 1533 <Electronically signed by Henri Kelly DO> Cosigner Signature (if applicable): CC: Dr. Javier Levy MD; Dr. 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 Seizure precautions Hypertensive emergency 09/17/202309/24 Last Assessment & Plan: 260/110 on arrival to OSH ED Currently SBP in 130s on arrival to NSICU. Plan: Treat SBP >180 Trend trop PRN BP meds ordered Lisinopril and hydralazine On mechanically assisted ventilation 09/17/2023 09/22/2023 Last Assessment & Plan: Intubated in ED at [place] for airway protection in setting of seizure CPAP overnight Extubated 09/20 Acute respiratory failure 09/17/2023 Last Assessment & Plan: Wean sedation SAT/SBT WTE as able Vulval lesion 11/15/2015 02/03/2016 documented as of this encounter (statuses as of 10/07/2023) [place] [address]-24-2024 [facility]2023 [facility]2024 NoteHNO ID: [id number] Author: YUE BINGHAM APRN.CNP Service: ? Author Type: Nurse Practitioner Type: Progress Notes Filed: 09/18/2023 00:35 Note Text: CRITICAL CARE TRANSPORT MEDICAL CONTROL CONSULT NOTE Patient Name: Reji Oliva Service Date: September 17, 2023 Referring Facility: [facility] Accepting Facility: REASON FOR TRANSPORT: Specialty services REASON FOR CONSULT: blood pressure management and goals of care in transport CCT MEDICAL CONTROL CONSULT SUMMARY: History, physical exam findings, and available background patient information from [facility] Transport Nurse were reviewed at the time of consult. Pertinent additional information was reviewed as follows: Epic Records In brief, Reji Oliva is a 63 year old female with an unknown history at time of consult, who presented to [facility] for evaluation of headache, left facial [...] and read back via telephone with [facility] Transport lance crewmember, Sonali Dewitt RN SIGNATURE: Yue Bingham APRN.CNP Acute Care Nurse Practitioner [facility] History of Present illness Narrative* Yue Bingham APRN.CNP - 09/17/2023 11:24 PM EDT Images from the original note were not included. CRITICAL CARE TRANSPORT MEDICAL CONTROL CONSULT NOTE Patient Name: Reji Oliva Service Date: September 17, 2023 Referring Facility: [facility] Accepting Facility: REASON FOR TRANSPORT: Specialty services REASON FOR CONSULT: blood pressure management and goals of care in transport CCT MEDICAL CONTROL CONSULT SUMMARY: History, physical exam findings, and available background patient information from [facility] Transport Nurse were reviewed at the time of consult. Pertinent additional information was reviewed as follows: Epic Records In brief, Reji Oliva is a 63 year old female with an unknown history at time of consult, who presented to [facility] for evaluation of headache, left facial [...] and read back via telephone with [facility] Transport lance crewmember, Sonali Dewitt RN SIGNATURE: Yue Bingham APRN.CNP Acute Care Nurse Practitioner Critical Care Transport documented in this encounterBlanchard Valley [facility]03-16-2024 Discharge summary Author Richmond Phoenix [facility] September 14, 2023 12:16am Note Date/Time September 13, 2023 10: 56pm [facility] Medical Records Department [address] [place] [address] Emergency Department Summary 09/13/23 MR#: [id number] Acct: [id number] Name: REJI OLIVA Rep #:[id number] : 1960 63 From: Richmond Phoenix [...] makes it better. She was prescribed a yellow pill by Dr. Zelaya. Shedoes not know the shape [...] your Primary Care Provider. Call [facility] ([phone]) or report to the closest Emergency Room. Call 911 if necessary. 09/14/23 0016 <Electronically signed by Richmond Phoenix MD> Cosigner Signature (if applicable): CC: Dr. Javier Levy MD ~ Signed [facility] Work Phone: 1(363) 128-438410-02-2023 [facility]10-02-2023 [facility]09-27-2023 [facility] 03-25-2023 [facility]12-01-2022 Miscellaneous Notes* Telephone Encounter - Kimmy Caal APRN.CNP - 05/31/2022 9:29 AM EST Noted. Patient [...] resolved. Kimmy Caal CNP documented in this encounterBlanchard Valley Health System11-28-2022 History of Present illness Narrative* Kimmy Caal APRN.AKBAR - 05/28/2022 6:45 PM EST Subjective UTI [...] SUBCUTANEOUS) Inject subcutaneously three times daily. 16 [id number] lunch 22 dinner nitrofurantoin monohydrate and macrocrystal [...] illness Kimmy Caal APRN.CNP documented in this encounterBlanchard Valley Health System11-28-2022 Instructions* Patient Instructions* Kimmy Caal APRN.CNP - [...] Discussed expected course of illness Kimmy Caal APRN.HOME SERVICE TECHNICIAN [facility] CARE PATIENT INFO BLADDER INFECTION OVERVIEW Bladder [...] actually have an infection. documented in this encounterBlanchard Valley Health System11-28-2022 Miscellaneous Notes* Telephone Encounter - Savanna Truong [...] advise Yue Vuong CMA documented in this encounterBlanchard Valley Health System11-11-2022 Miscellaneous Notes* Telephone Encounter - Darien Ozuna Cma - 05/11/2022 3:30 PM EST Pt left a message on the clinical voicemail, asking for a return call. I tried to reach pt and was unable to leave a message as her voicemail was full. Not sure what pt needed. Will await a return call from pt. Darien Ozuna Cma documented in this encounterBlanchard Valley Health System10-19-2022 Instructions* Patient Instructions* Beverley Luna MD - 04/18/2022 9:32 AM EDT Schedule appointment with urology Follow up with Les Griffin NP in 3 months [facility] scheduling number [phone] documented in this encounterBlanchard Valley Health System10-19-2022 History of Present illness Narrative* Beverley Luna [...] - CT urogram scheduled 11/08/21 - CYTOLOGY NON-HEMMER AUTOMATIC - CONSULT TO UROLOGY; Future 2. Bladder [...] Abnormal Vaginal Discharge: yes, white and thin HEMMER AUTOMATIC HISTORY: Last pap: Date:09/11/21 NIL HPV neg; Last mammogram: Her last mammogram was 04/11/17 negative. She has no history of an abnormal mammogram LMP: No LMP recorded. Patient is postmenopausal.; Menopause post: Menstrual history: NA; Deliveries: C/Sec, I have confirmed and edited as necessary, the PFSH obtained by others. Beverley Luna MD Mri Technologist offered: Patient accepts, visit chaperoned by Bart [...] Pt would prefer to see me at [facility] in the new year to revisit surgery. Scheduling number given and she will check with her insurance. - If [facility] is not covered, then she will plan for follow up with Les Griffin NP in 3 months to review A1C and refer to other [facility] urogyn surgeon. 2. Cystocele, midline - [...] Moderate Beverley Luna MD documented in this encounterBlanchard Valley Health System05-19-2022 Miscellaneous Notes* Telephone Encounter - Martha Lerner - 11/16/2021 2:58 PM EDT Patient has been contacted via: Phone To reschedule appointment with Provider: Arnaldo Mayo Date of appointment: 11/16/21 Reason: No Show Attempt: First Attempt Patient call back number given: [phone] Martha Lerner' documented in this encounterBlanchard Valley Health System05-13-2022 Miscellaneous Notes* Telephone Encounter - Krishna Restrepo Ma - 11/10/2021 2:25 PM EDT Patient informed. Krishna Restrepo Ma * Telephone Encounter - Beverley Lnua MD - 11/10/2021 2:18 PM EDT Please inform pt her urine showed atypical urothelial cells. Keep upcoming appointment with Dr. Mayo as scheduled. Beverley Luna MD documented in this encounterBlanchard Valley Health System05-06-2022 Instructions* Patient Instructions* Beverley Luna MD - [...] Rene Dr. Luna Dr. Lizarraga Nettie Barton, HOME SERVICE TECHNICIAN Les Griffin, AKBAR Holliday, AKBAR [place], HOME SERVICE TECHNICIAN After 4:30 pm or on holidays or weekends, call: or [phone]. Ask the carbon paste mixer operator to page the HEMMER AUTOMATIC irrigation equipment remover.' [facility] [place] Patients ONLY: After 4:30 PM or on holidays or weekends, call and you will be connected to the answering service/physician irrigation equipment remover. Please DO NOT use MyChart for procedure concerns. documented in this encounterBlanchard Valley Health System05-06-2022 History of Present illness Narrative* Beverley Luna MD - 11/03/2021 10:30 AM EDT 11/03/2021 Reji Oliva presents today for a [...] procedure well. Medications: None given, currently taking [facility] data reviewed today in Care Everywhere: [...] - CT urogram scheduled 11/08/21 - CYTOLOGY NON-HEMMER AUTOMATIC - CONSULT TO UROLOGY; Future 2. Bladder wall thickening - CONSULT TO UROLOGY; Future 3. Abnormal cystoscopy - CONSULT TO UROLOGY; Future Beverley Luna MD documented in this encounterBlanchard Valley Health System04-18-2022 Miscellaneous Notes* Telephone Encounter - Les Griffin APRN.CNP - 10/16/2021 12:39 PM EDT Spoke with patient regarding hematuria on recent UA. She has a history of gross hematuria. We reviewed the work-up at length including cystoscopy, CT urogram and urine cytology. Advised patient I will place orders and we will call her to schedule. She understands. Les Griffin APRN.CNP documented in this encounterBlanchard Valley Health System04-14-2022 Nurse Note* Savanna Truong RN - 10/12/2021 11:09 AM EDT Patient seen today for a straight cath for specimens. Straight cath performed using sterile technique with a 12 [place] citizen catheter. Patient tolerated well and specimens prepared for lab analysis. Savanna Truong RN documented in this encounterBlanchard Valley Health System04-11-2022 Miscellaneous Notes* Telephone Encounter - Maria Elena Burleson Cma - 10/09/2021 9:48 AM EDT Called left message for results,. Maria Elena Burleson Cma * Telephone Encounter - Les Griffin APRN.CNP - 10/09/2021 8:54 AM EDT Advise patient urine culture is contaminated. If she is still experiencing UTI symptoms, she can submit a new specimen. Les Griffin APRN.CNP documented in this encounterBlanchard Valley Health System04-01-2022 Miscellaneous Notes* Telephone Encounter - Moira Westbrook RN - 09/29/2021 8:34 PM EDT Patient was hit for a prosthetic today with Uro Gynecology. She was calling to inform her provider she really struggled to remove it herself. She will follow up with provider when the office is open. documented in this encounterBlanchard Valley Health System04-01-2022 Instructions* Patient Instructions* Les Griffin APRN.CNP - 09/29/2021 10:51 AM EDT To call with pain/discomfort, vaginal bleeding or difficulty emptying bladder or bowels. Follow-up in 3 months. documented in this encounterBlanchard Valley Health System04-01-2022 History of Present illness Narrative* Les Griffin [...] related to prolapse. Abnormal Vaginal Discharge: no HEMMER AUTOMATIC HISTORY: Last pap: Date:couple weeks ago; Last mammogram: She has never had a mammogram LMP: No LMP recorded. Patient is postmenopausal.; Menopause no: Menstrual history: NA; Deliveries: {OB TYPE OF DELIVERY: vaginal and I have confirmed and edited as necessary, the PFSH obtained by others. Les Griffin APRN.CNP Mri Technologist offered: Patient accepts, visit chaperoned by AYDEE Woodward. OBJECTIVE: BP 142/80 Ht 5' 2 (1.58m) [...] Rectocele - As above #1. Les Griffin APRN.AKBAR documented in this encounterBlanchard Valley Health System03-28-2022 Miscellaneous Notes* Telephone Encounter - Sanjuana Chan [...] culture in approximately 2 weeks. Les Griffin APRN.AKBAR documented in this encounterBlanchard Valley Health System03-23-2022 Instructions* Patient Instructions* Beverley Luna MD - 09/20/2021 1:50 PM EDT Schedule pessary fitting with Les Griffin NP We will call you with urine lab results and next steps documented [facility] History of Present illness Narrative* Beverley Luna [...] and squamous epithelium. Medical and Symptom History: HEMMER AUTOMATIC HISTORY: Last Pap: Date:09/11/21 NIL HPV neg; [...] SUBCUTANEOUS) Inject subcutaneously three times daily. 16 [id number] lunch 22 dinner mometasone (ELOCON) 0.1 % [...] Alcohol use: No Drug use: No Occupation: [employer] Status: REVIEW OF SYSTEMS General: Negative [...] ROS obtained by others. Beverley Luna MD Mri Technologist offered: Patient accepts, visit chaperoned by Adonis [...] Wall - Rectocele Stage II Cervix / [place] - Stage lll / lV prolapse POP-Q: [...] mail. Beverley Luna MD documented in this encounterBl[facility] History of Past illness Narrative* Problem Noted Date Resolved Date Vulval lesion 11/15/2015 02/03/2016 documented as of this encounter (statuses as of 09/20/2021) [facility] Narrative* Problem Noted Date Resolved Date Vulval lesion 11/15/2015 02/03/2016 documented as of this encounter (statuses as of 09/25/2021) [facility] Narrative* Problem Noted Date Resolved Date Vulval lesion 11/15/2015 02/03/2016 documented as of this encounter (statuses as of 09/29/2021) [address]-2016 History of Past illness Narrative* Problem Noted Date Resolved Date Vulval lesion 11/15/2015 02/03/2016 documented as of this encounter (statuses as of 09/30/2021) [address]17-2016 History of Past illness Narrative* Problem Noted Date Resolved Date Vulval lesion 11/15/2015 02/03/2016 documented as of this encounter (statuses as of 10/09/2021) [place] [id number] History of Past illness Narrative* Problem Noted Date Resolved Date Vulval lesion 11/15/2015 02/03/2016 documented as of this encounter (statuses as of 10/12/2021) [facility] Narrative* Problem Noted Date Resolved Date Vulval lesion 11/15/2015 02/03/2016 documented as of this encounter (statuses as of 10/16/2021) [facility] Narrative* Problem Noted Date Resolved Date Vulval lesion 11/15/2015 02/03/2016 documented as of this encounter (statuses as of 11/03/2021) [facility] Narrative* Problem Noted Date Resolved Date Vulval lesion 11/15/2015 02/03/2016 documented as of this encounter (statuses as of 11/10/2021) [facility] Narrative* Problem Noted Date Resolved Date Vulval lesion 11/15/2015 02/03/2016 documented as of this encounter (statuses as of 11/16/2021) [address]17[address]2016 History of Past illness Narrative* Problem Noted Date Resolved Date Vulval lesion 11/15/2015 02/03/2016 documented as of this encounter (statuses as of 04/18/2022) [facility] Narrative* Problem Noted Date Resolved Date Vulval lesion 11/15/2015 02/03/2016 documented as of this encounter (statuses as of 05/11/2022) [address]17-2016 History of Past illness Narrative* Problem Noted Date Resolved Date Vulval lesion 11/15/2015 02/03/2016 documented as of this encounter (statuses as of 05/28/2022) [address]17-2016 History of Past illness Narrative* Problem Noted Date Resolved Date Vulval lesion 11/15/2015 02/03/2016 documented as of this encounter (statuses as of 05/28/2022) [address]17-2016 History of Past illness Narrative* Problem Noted Date Resolved Date Vulval lesion 11/15/2015 02/03/2016 documented as of this encounter (statuses as of 06/20/2022) [address]17-2016 History of Past illness Narrative* Problem Noted Date Diagnosed Date Resolved Date Vulval lesion 11/15/2015 02/03/2016 documented as of this encounter (statuses as of 09/18/2023) [facility] note* Diagnosis Gross hematuria- Primary Complete uterovaginal prolapse Uterovaginal prolapse, complete Cystocele, midline Rectocele Poorly controlled diabetes mellitus (HCC) Type II or unspecified type diabetes mellitus without mention of complication, not stated as uncontrolled documented in this encounter [facility] note* Diagnosis Fungus present in urine- Primary Other and unspecified mycoses documented in this encounter [facility] note* Diagnosis Encounter for fitting and adjustment of pessary- Primary Fitting and adjustment of other device Complete uterovaginal prolapse Uterovaginal prolapse, complete Cystocele, midline Rectocele documented in this encounter [facility] note* Diagnosis Abnormal urine Other nonspecific finding on examination of urine Urinary tract infection without hematuria, site unspecified documented in this encounter [facility] note* Diagnosis Gross hematuria- Primary documented in this encounter [facility] noteNo assessment information availableWMary Rutan [facility] Work Phone: Evaluation note* Diagnosis Gross hematuria- Primary Bladder wall thickening Other specified disorders of bladder Abnormal cystoscopy Other nonspecific abnormal finding documented in this encounter [facility] note* Diagnosis Onset Date Resolution Status Cystitis acute [facility] Work Phone: Evaluation note* Diagnosis Complete uterovaginal prolapse- Primary Uterovaginal prolapse, complete Cystocele, midline Rectocele Poorly controlled diabetes mellitus (HCC) Type II or unspecified type diabetes mellitus without mention of complication, not stated as uncontrolled Gross hematuria Bladder wall thickening Other specified disorders of bladder Abnormal cystoscopy Other nonspecific abnormal finding Acute cystitis without hematuria Acute cystitis documented in this encounter [facility] note* Diagnosis UTI symptoms- Primary Other symptoms involving urinary system documented in this encounter [facility] note* Diagnosis Urinary frequency- Primary documented in this encounter [facility] note* Diagnosis Onset Date Resolution Status Acute sinusitis [facility] Work Phone: Evaluation note* Diagnosis Partial symptomatic epilepsy with complex partial seizures, not intractable, without status epilepticus (CMS/HCC)- Primary [facility] Diagnosis Partial symptomatic epilepsy with complex partial seizures, not intractable, without status epilepticus (CMS/HCC) [facility] Diagnosis Partial symptomatic epilepsy with complex partial seizures, not intractable, without status epilepticus (CMS/HCC)- Primary PRES (posterior reversible encephalopathy syndrome) Primary hypertension (CMS/HCC) Unspecified essential hypertension Type 2 diabetes mellitus with hyperglycemia, with long-term current use of insulin (CMS/HCC) [facility] encounter [facility] for referral (narrative)No reason for referral information availableWMary Rutan [facility] Work Phone: Summary Purpose Family History No [...] FoundDocuments on File Type Date Recorded Patient Lopper Expl anation Advance Directive(s) 01/17/2016 6:16 AM Advance Directive(s) 12/12/2015 12:16 PM Documents on File Type Date Recorded Patient Lopper Expl anation Advance Directive(s) 01/17/2016 6:16 AM Advance Directive(s) 12/12/2015 12:16 PM Advance Directive Response Recorded Date/ Time Living Will No April 28 9:00am Power of C D Stripper No April 28, 2020 9:00am Advance Directive Response Recorded Date/ Time Living Will No April 28 8:00am Power of C D Stripper No April 28, 2020 8:00am Advance Directive Response Recorded Date/ Time Living Will No September 13, 2023 8:31pm Power of C D Stripper No September 12 8:31pm Advance Directive Response Recorded Date/ Time Living Will No September 17, 2023 4:25pm Power of C D Stripper No September 16 4:25pm Advance Directive Response Recorded Date/ Time Living Will No September 27, 2023 5:02pm Power of C D Stripper No September 26 5:02pm Advance Directive Response Recorded Date/ Time Living Will No July 26 11:40pm Do you have a Healthcare Power of C D Stripper? No July 26, 2024 11:40pm Reason for Referral Specialty Diagnoses / Procedures Referred By Josh t Referred To Contact CT IMAGING Diagnoses Gross hematuria Procedures CT UROGRAM WO/W IVCON CT ABD & PELVIS W/O CONTRST 1+ BODY Les Garcia, ENGINE WATCHMAN.HOME SERVICE TECHNICIAN [address] [place] [address] Ct Imaging Referral ID Status Reason Start Date Expiration Date Visits Requested Visits Authorized [id number] Pending Review Auto-Generat ed Referral 10/16/2021 11/15/2022 1 1 Specialty Diagnoses / Procedures Referred By Contac t Referred To Contact Urology Diagnoses Gross hematuria Bladder wall thickening Abnormal cystoscopy Procedures CONSULT TO UROLOGY OFFICE/OUTPATIENT [facility] 60-74 MINUTES Beverley Luna MD [address] [address] Referral ID Status Reason Start Date Expiration Date Visits Requested Visits Authorized [id number] Pending Review PCP Requested Referral 11/03/2021 11/03/2022 1 1 Referral ID Status Reason Start Date Expiration Date Visits Requested Visits Authorized [id number] Pending Review PCP Requested Referral 2 04/18/2023 1 1 Chief Complaint and Reason [...] 9:05a m Chief Complaint Admit Date Hospital August 12, 2024 8:55am PILL CAM September [...] 9:05a m Chief Complaint Admit Date Hospital August 12, 2024 8:55am PILL CAM September [...] AND ANKLE January 20 11:11am ABN ECHO (RANNEY) February 03, 2025 9:5 0am Reason for [...] AND ANKLE January 20 11:11am ABN ECHO (RANNEY) February 03, 2025 9:5 0am [facility] [...] AND ANKLE January 20 11:11am ABN ECHO (Bi[employer]) February 03, 2025 9:5 0am [facility] [...] 9:06am Diabetes mellitus type 2 in nonobese Jan us2024 9:06am Vitamin D deficiency February 24, 2025 [...] 2 in nonobese Aug ust 2024 9:06am Mixed hyperlipidemia February 24, 2025 9 [...] section and content) DATE CREATED AUTHOR 01/24/2018 [facility] DATE CREATED AUTHOR AUTHOR'S ORGANIZ ATION 02/28/2018 [employer] DATE CREATED AUTHOR AUTHOR'S ORGANIZ ATION 04/08/2018 [facility] DATE CREATED AUTHOR AUTHOR'S ORGANIZ ATION 09/26/2023 [facility] DATE CREATED AUTHOR AUTHOR'S ORGANIZ ATION 10/08/2023 [facility] DATE CREATED AUTHOR AUTHOR'S ORGANIZ ATION 04/26/2024 [facility] DATE CREATED AUTHOR AUTHOR'S ORGANIZ ATION 05/12/2025 [facility] Source Comments (unrecognize d section and content) In the event this informatio n is protected by the Federal Confidentiality of Alcohol and Drug Abuse Patient Records regulations: The Federal rules restrict any use of the information to criminally investigate or prosecute any alcohol or drug abuse patient.[facility] SystemIn the event this information is protected by the Federal Confidentiality of Alcohol and Drug Abuse Patient Records regulations: The Federal rules restrict any use of the information to criminally investigate or prosecute any alcohol or drug abuse patient.[facility] SystemIn the event this information is protected by the Federal Confidentiality of Alcohol and Drug Abuse Patient Records regulations: The Federal rules restrict any use of the information to criminally investigate or prosecute any alcohol or drug abuse patient.[facility] SystemIn the event this information is protected by the Federal Confidentiality of Alcohol and Drug Abuse Patient Records regulations: The Federal rules restrict any use of the information to criminally investigate or prosecute any alcohol or drug abuse patient.[facility] SystemIn the event this information is protected by the Federal Confidentiality of Alcohol and Drug Abuse Patient Records regulations: The Federal rules restrict any use of the information to criminally investigate or prosecute any alcohol or drug abuse patient.[facility] SystemIn the event this information is protected by the Federal Confidentiality of Alcohol and Drug Abuse Patient Records regulations: The Federal rules restrict any use of the information to criminally investigate or prosecute any alcohol or drug abuse patient.[facility] SystemIn the event this information is protected by the Federal Confidentiality of Alcohol and Drug Abuse Patient Records regulations: The Federal rules restrict any use of the information to criminally investigate or prosecute any alcohol or drug abuse patient.[facility] SystemIn the event this information is protected by the Federal Confidentiality of Alcohol and Drug Abuse Patient Records regulations: The Federal rules restrict any use of the information to criminally investigate or prosecute any alcohol or drug abuse patient.[facility] SystemIn the event this information is protected by the Federal Confidentiality of Alcohol and Drug Abuse Patient Records regulations: The Federal rules restrict any use of the information to criminally investigate or prosecute any alcohol or drug abuse patient.[facility] SystemIn the event this information is protected by the Federal Confidentiality of Alcohol and Drug Abuse Patient Records regulations: The Federal rules restrict any use of the information to criminally investigate or prosecute any alcohol or drug abuse patient.[facility] SystemIn the event this information is protected by the Federal Confidentiality of Alcohol and Drug Abuse Patient Records regulations: The Federal rules restrict any use of the information to criminally investigate or prosecute any alcohol or drug abuse patient.[facility] SystemIn the event this information is protected by the Federal Confidentiality of Alcohol and Drug Abuse Patient Records regulations: The Federal rules restrict any use of the information to criminally investigate or prosecute any alcohol or drug abuse patient.[facility] SystemIn the event this information is protected by the Federal Confidentiality of Alcohol and Drug Abuse Patient Records regulations: The Federal rules restrict any use of the information to criminally investigate or prosecute any alcohol or drug abuse patient.[facility] SystemIn the event this information is protected by the Federal Confidentiality of Alcohol and Drug Abuse Patient Records regulations: The Federal rules restrict any use of the information to criminally investigate or prosecute any alcohol or drug abuse patient.[facility] SystemIn the event this information is protected by the Federal Confidentiality of Alcohol and Drug Abuse Patient Records regulations: The Federal rules restrict any use of the information to criminally investigate or prosecute any alcohol or drug abuse patient.[facility] SystemIn the event this information is protected by the Federal Confidentiality of Alcohol and Drug Abuse Patient Records regulations: The Federal rules restrict any use of the information to criminally investigate or prosecute any alcohol or drug abuse patient.[facility] SystemIn the event this information is protected by the Federal Confidentiality of Alcohol and Drug Abuse Patient Records regulations: The Federal rules restrict any use of the information to criminally investigate or prosecute any alcohol or drug abuse patient.[facility] Reason for Visit (unrecogniz ed section and content) Reason Comments Prolapse Hematuria Specialty Diagnoses / Procedures Referred By Contac t Referred To Contact Urogynecology / URO GYNECOLOGY Diagnoses bladder prolapse, occasional urethreal bleeding with urination Procedures NEW I PATIENT Self Beverley Luna MD [address] [address] Referral ID Status Reason Start Date Expiration Date Visits Re quested Visits Authorized [id number] Closed 09/20/2021 12/28/2021 1 1 Reason Comments Results Reason Comments Pessary Specialty Diagnoses / Procedures Referred By Contac t Referred To Contact Gynecology / URO GYNECOLOGY Diagnoses pessary fitting Procedures OFFICE/OUTPATIENT ESTABLISHED HIGH MDM 40-54 MIN EST I PATIENT Les Griffin, ENGINE WATCHMAN.HOME SERVICE TECHNICIAN [address] [place] [address] Les Griffin APRN.HOME SERVICE TECHNICIAN [address] [place] [address] Referral ID Status Reason Start Date Expiration Date Visits Re quested Visits Authorized [id number] Closed 09/29/2021 12/28/2021 1 1 Reason Comments Information Reason Comments UTI Specialty Diagnoses / Procedures Referred By Contac t Referred To Contact Urology / UROLOGY Diagnoses Straight cath specimen UA and culture Procedures OFFICE/OUTPATIENT EST PT MAY NOT REQ PHYS/QHP EST UROL Melanie Levy MD [address] [place] [address] Exchange, Nurse Urol [address] [place] [address] Referral ID Status Reason Start Date Expiration Date Visits Re quested Visits Authorized [id number] Closed 10/11/2021 06/30/2022 1 1 Reason Comments Results Reason Comments Gross Hematuria Specialty Diagnoses / Procedures Referred By Contact Referred To Contact Urogynecology / UROLOGY Diagnoses Recurrent UTI Procedures REFERRAL TO [facility] FINANCIAL COUNSELOR CYSTOURETHROSCOPY CYSTOSCOPY Melanie Levy MD [address] [place] [id number] Beverley Luna MD [address] [place] [address] Referral ID Status Reason Start Date Expiration Date V isits Requested Visits Authorized [id number] Closed Financial Clearance Required - [employer] Payor 10/23/2021 06/30/2022 1 1 Reason Comments No Show Reason Comments Follow Up Prolapse UTI Specialty Diagnoses / Procedures Referred By Contac t Referred To Contact Urogynecology / URO GYNECOLOGY Diagnoses bladder prolapse, occasional urethreal bleeding with urination Procedures NEW WHI PATIENT Self Beverley Luna MD [address] [place] [address] Referral ID Status Reason Start Date Expiration Date V isits Requested Visits Authorized [id number] Authorized 09/20/2021 06/30/2022 99 99 Reason Comments [...] Referring Provider Active Start: November 24, 2024 Geographic Analyst Relationship Specialty Start Date End Date Melanie Levy MD [address] [place], [place] [id number] PCP - General Family Practice 09/20/21 Geographic Analyst Relationship Specialty Start Date End Date Melanie Levy MD [address] [place], [place] [phone] PCP - General Family Practice 09/20/21 Geographic Analyst Relationship Specialty Start Date End Date Melanie Levy MD [address] [place], [place] [id number] PCP - General Family Practice 09/20/21 Geographic Analyst Relationship Specialty Start Date End Date Melanie Levy MD [address] [place] [address] PCP - General Family Practice 09/20/21 Geographic Analyst Relationship Specialty Start Date End Date Melanie Levy MD [address] [place] [address] PCP - General Family Practice 09/20/21 Geographic Analyst Relationship Specialty Start Date End Date Melanie Levy MD [address] [place] [address] PCP - General Family Practice 09/20/21 Geographic Analyst Relationship Specialty Start Date End Date Melanie Levy MD [address] [place] [address] PCP - General Family Practice 09/20/21 Geographic Analyst Relationship Specialty Start Date End Date Melanie Levy MD [address] [place] [address] PCP - General Family Practice 09/20/21 Geographic Analyst Relationship Specialty Start Date End Date Melanie Levy MD [address] [place] [address] PCP - General Family Medicine 09/20/21 Geographic Analyst Relationship Specialty Start Date End Date Melanie Levy MD [address] [place] [address] PCP - General Family Medicine 09/20/21 Geographic Analyst Relationship Specialty Start Date End Date Melanie Levy MD [address] [place] [address] PCP - General Family Medicine 09/20/21 Geographic Analyst Relationship Specialty Start Date End Date Melanie Levy MD [address] [place] [address] PCP - General Family Medicine 09/20/21 Team [...] Provider, Refe rring Provider Active Hamilton GRANADO, LOY Attending Provider Active Team Status: Inactive Member [...] Dr. Richmond Phoenix MD Emergency Provider Active Geographic Analyst Relationship Specialty Start Date End Date Melanie [...] ve Dr. Henri Kelly , DO Admit Pr ovider, Attending Provider, [...] DO Admit Provider, Attend ing Provider Active Geographic Analyst Relationship Specialty Start Date End Date Melanie [...] , Attending Provider, Re ferring Provider Active Geographic Analyst Relationship Specialty Start Date End Date Melanie Levy MD [address] [place] [address] PCP - General Family Medicine 10/02/23 Geographic Analyst Relationship Specialty Start Date End Date Melanie Levy MD [address] [place] [address] PCP - General Family Medicine 10/02/23 Geographic Analyst Relationship Specialty Start Date End Date Melanie Levy MD [address] [place] [address] PCP - General Family Medicine 10/02/23 Geographic Analyst Relationship Specialty Start Date End Date Melanie Levy MD [address] [place] [address] PCP - General Family Medicine 10/02/23 Geographic Analyst Relationship Specialty Start Date End Date Melanie Levy MD [address] [place] [address] PCP - General Family Medicine 10/02/23 Geographic Analyst Relationship Specialty Start Date End Date Melanie Levy MD [address] [place] [address] PCP - General Family Medicine 10/02/23 Team [...] Active St art: July 27, 2024 Dr. Mia Pérez MD Other Provider Active St art: [...] Acti ve Start: January 20, 2025 Luke GRANADO PA Attending Provider Active Start: January 20, 2025 Luke GRANADO PA Referring Provider Active Start: January 20, 2025 Team Status: Inactive Member Role/Relationship Status Dates Dr. Melanie Levy MD Primary Care Provider Acti ve Start: January 20, 2025 End: January 20, 2025 Luke GRANADO PA Attending Provider Active Start: January 20, 2025 End: January 20, 2025 Luke GRANADO PA Referring Provider Active Start: January 20, [...] End: January 20, 2025 Luke GRANADO PA Referring Provider Active Start: January 20, [...] BE BASED ON THE PRIMARY CLINICAL RECORDS. [facility] [employer] [facility]. provides no warranty or guarantee of the accuracy or completeness of information in this document.
[2025-05-18] MEDS: Lactated Ringers 1,000 ML 15 ML IV (06:25)
--- NOTE | 2025-05-18 06:30 | COLBX_PTH ---
PATIENT: REJI OLIVA LOC: EN U#:[id number] AGE/SX: 65/F ROOM: RE05/18/[address]: Dr. Ramez Khan DO : 1960 BED: DIS: 05/18/2025 SPEC #: [id number] RECD: 05/18/25 09:59 STATUS: ALONDRA REQ #: [id number] LEXIE: 05/18/25 06:[address]: Ramez Khan DEPT: SURGICAL PATHOLOGY RECD BY: Luis Felipe Osullivan ENTERED: 05/18/25 11:48 SP TYPE: COLON BX LENNY DR: Dr. Morgan Levy MD Tissues: A - Ileum, NOS B - COLON BIOPSY Procedures: Surgery Specimen Level IV HEADER OPERATION: Colonoscopy with biopsy PRE-OP DIAGNOSIS: Loose stools TISSUE SUBMITTED: A- Terminal ileum biopsy, B- Random colon biopsy MICROSCOPIC DIAGNOSIS A. Small intestine, terminal ileum, biopsy: * Small bowel mucosa with no pathologic change B. Colon, random biopsy: * Colonic mucosa with no pathologic change MICROSCOPIC DESCRIPTION Slides are reviewed. GROSS DESCRIPTION A. Received in fixative is one container labeled with the patient's name and designated Terminal ileum biopsy. The specimen consists of multiple irregular fragments of martinez tissue that in aggregate measure 1 x 0.8 x 0.1 cm. The specimen is totally submitted in one cassette. B. Received in fixative is one container labeled with the patient's name and designated Random colon biopsy. The specimen consists of multiple irregular fragments of martinez tissue that in aggregate measure 1.5 x 0.7 x 0.1 cm. The specimen is totally submitted in one cassette. [place] 05/18/2025 CPT:74731z3
--- NOTE | 2025-05-18 06:35 | PRE.ANES_ITS ---
ASA Classification* ASA Classification ASA Classification: 3 Assessment & Plan Anesthesia* Anesthesia Assessment Anesthesia Assessment: Discussed sedation and/or anesthesia options, risks, benefits, and alternatives with patient/parents/legal guardian/POA. Questions invited. The patient/parents/legal guardian/POA seems to understand and agrees to proceed with anesthesia plan. Reviewed the physical assessment, medical history, allergy history and patient home medications list prior to surgery/procedure/anesthetic and documented any changes. Performed airway and anesthesia risk assessments. Anesthesia Type Anesthesia Type: MAC History Source History Obtained from:: Patient, Chart and Significant Other ( in the room) Anesthesia Focused Assessment* Temperature: 97.4 F Pulse Rate: 68 Blood Pressure: 144/76 Respiratory Rate: 16 Pulse Ox: 98 Oxygen Delivery Method: Room Air Airway Assessment Mouth opens: >3 cm Mallampati Score: I Teeth Condition: Intact Neck Range of motion (ROM): Full ROM Labs Anesthesia Preop lab: CBC WBC, (4.4-11.0) 7.9 K/mm3 02/24/25, 09:48 RBC, (4.2-5.4) 4.74 M/mm3 02/24/25, 09:48 Hgb, (12.0-15.0) 13.7 g/dL 02/24/25, 09:48 Hct, (37-47) 39.6 % 02/24/25, 09:48 Plt Count, (150-450) 208 K/mm3 02/24/25, 09:48 CHEMISTRY Potassium, (3.3-5.1) 4.2 mmol/L 02/24/25, 09:48 Sodium, (133-145) 138 mmol/L 02/24/25, 09:48 Magnesium, (1.6-2.6) 1.7 mg/dL 07/26/24, 20:16 Phosphorus, (2.5-4.9) 3.7 mg/dL 09/26/23, 05:44 BUN, (4-19) 16 mg/dL 02/24/25, 09:48 Creatinine, (0.70-1.20) 0.91 mg/dL 02/24/25, 09:48 Glucose, (70-99) 206 mg/dL H 02/24/25, 09:48 POC Glucose, (74-106) 130 mg/dL H 07/29/24, 12:03 TSH, (0.300-4.200) 0.892 uIU/mL 02/24/25, 09:48 COAG PT, (11.7-14.9) 14.1 SECONDS 07/28/24, 05:16 Pre-Assessment Diagnosis/Proposed Procedure Planned Operative Procedure(s): COLONOSCOPY Anesthesia History 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 05/14/25 14:59 You/Your Family Experience No 05/14/25 14:59 fever (hyperthermia) with Relationship Recent Exposure to Contagious No 05/18/25 06:11 Disease Does patient have nerve No 05/14/25 14:59 stimulator Patient instructed to have device shut off --Does patient have Pacemaker No 05/18/25 06:11 or ICD? When Was Last Pacemaker Check QUESTION #4 FULL TEXT: You/Your Family Experience fever (hyperthermia) with Anesthesia Last Oral Intake Last Oral intake: Last Oral Intake NPO since 00:00 05/18/25 06:11 Meds taken in AM with sips of No 05/18/25 06:11 water? 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 Female Yes 05/14/25 14:59 HX of Motion Sickness No 05/14/25 14:59 HX of N/V After Surgery No 05/14/25 14:59 Non-Smoker Yes 05/14/25 14:59 Duration of Surgery greater No 05/14/25 14:59 than 60 minutes Number of Risk Factors 2 05/14/25 14:59 PONV Score Moderate Risk 05/14/25 14:59 Height & Weight Height & Weight: Anesthesia: Height & Weight Height 5 ft 1.81 in 05/18/25 06:11 Weight: 65 kg 05/18/25 06:11 Body Mass Index (BMI) 26.4 05/18/25 06:11 Respiratory Assessment Respiratory Assessment - middle school science teacher: Respiratory Tract Infection Hx - 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 Has anyone observed you stop No 05/14/25 14:59 breathing during sleep? STOP Results Positive 05/14/25 14:59 QUESTION #5 FULL TEXT : Do you snore loudly (louder than talking or can be heard through closed doors)? 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 Specify any problems Hx of Preganancy in last 3 No 05/14/25 14:59 Months Nurse Filling Out Transfusion DSCHRIBER 05/14/25 14:59 & Questions: Date: 05/14/25 05/14/25 14:59 Time: 15:02 05/14/25 14:59 Patient unable to answer at this time (ie. 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: /Reproductive Hx- middle school science teacher Hx Now No 05/14/25 14:59 Gestational Age (in weeks): EDC: Hx Hx Para Hx Section SAB No 05/14/25 14:59 Does the father of the baby or his family experience fever w Father of the baby Malignant Hypertension history comment Active Medications Active Medications: Current Medications Generic Name Dose Route Start Last Admin Trade Name Fidencio PRN Reason Stop Dose Admin Lactated Ringer's 1,000 mls @ 15 mls/hr 05/18/25 06:00 05/18/25 06:25 IV 15 mls/hr .Q48H MICHEL Administration PFSH Medical History Wears glasses Post-menopausal Depression Anxiety Insulin dependent diabetes mellitus Low iron Fatty liver Dietary restriction Gastric reflux Former smoker Bloated abdomen History of echocardiogram Cardiology follow-up encounter Seizures Hypertension ADD (attention deficit disorder) Heart murmur, systolic PRES (posterior reversible encephalopathy syndrome) Osteoporosis Rectocele Incomplete uterovaginal prolapse Home Medications ?Medication ?Instructions ?Recorded ?Last Taken ?Type ascorbic acid (vitamin C) 500 mg 1,000 mg PO DAILY sup plement 09/25/23 05/17/25 History capsule atorvastatin 20 mg tablet 20 mg PO QHS cholesterol #30 tabs 10/04/23 05/17/25 Rx bupropion HCl 150 mg 24 hr tablet, 150 mg PO DAILY moo d #30 tabs 10/04/23 05/17/25 Rx extended release fluoxetine 20 mg capsule (Prozac) 20 mg PO DAILY mood #30 caps 10/04/23 05/17/25 Rx cholecalciferol (vitamin D3) 50 25 mcg PO DAILY vitami n 01/31/24 05/17/25 History mcg (2,000 unit) capsule (Vitamin D3) insulin lispro 100 unit/mL 5 unit subcut TID diabetes 05/07/24 05/17/25 History subcutaneous pen (Humalog KwikPen (U-100) Insulin) lisinopril 20 1 tab PO QDAY blood pressure 05/07/24 05/17/25 History mg-hydrochlorothiazide 12.5 mg tablet insulin glargine 100 unit/mL (3 5 unit subcut QPM diab etes 07/26/24 05/17/25 History mL) subcutaneous pen (Lantus Solostar U-100 Insulin) metoprolol succinate 50 mg 50 mg PO QDAY #90 tabs 0812/2305/17/25 Rx tablet,extended release 24 hr (Toprol XL) omega-3 acid ethyl esters 1 gram 1 cap PO QDAY 5 Unknown History capsule omeprazole 40 mg capsule,delayed 40 mg PO QDAY #90 cap s 02/23/25 05/17/25 Rx release alprazolam 0.25 mg tablet 0.25 mg PO QDAY #1 TAB 04/2805/17/25 Rx amlodipine 10 mg tablet 10 mg PO DAILY 05/14/2505/01 History metformin 500 mg tablet 1,000 mg PO DAILY diabetes 1 07/14/24 05/17/25 History Allergy/AdvReac Type Severity Reaction Status Date / Time oxycodone AdvReac Intermediate Other Verified 05/14/25 14:53 cyclobenzaprine (From AdvReac other Verified 05/14/25 14:53 Flexeril) Family History Father Arthritis Diabetes Myocardial infarction, Onset Age: 63 Heart disease Hypertension Sister Arthritis Diabetes Brother Diabetes Mental disorder Mother Hypertension Migraines Cerebral hemorrhage Surgical History Hx of colonoscopy H/O: hysterectomy History of hip surgery History of tubal ligation History of rectal sphincterotomy H/O: Social History household members: spouse number of children: 2 current occupational status: employed 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 alcohol intake: never substance use type: does not use caffeine: Yes what type of physical activity do you participate in: none frequency: does not exercise Review of Systems (Anesthesia) ROS Narrative System reviewed and no additional complaints, except as documented.
--- NOTE | 2025-05-18 06:40 | PCM.HP.STD ---
HPI - General General Date of Admission: 05/18/25 Date of Service: 05/18/25 Chief Complaint: diarrhea HPI Narrative REJI OLIVA, is a 65 F who presents [Chief Complaint: Loose stool BGI established after [facility] admission 07.27.24-07.29.24 after a syncopal episode. Pt with a Hgb of 7.9 and noting dark stool over the past week. PMHx of GI bleed. Underwent EGD and colonoscopy hospitalized in Jul 2024 with a GI bleed and underwent EGD, colonoscopy and outpatient capsule endoscopy. Work up revealed bleeding AVMs and enteritis. EGD 07.28.24; - Normal esophagus. - Medium-sized hiatal hernia. - Blood in the third portion of the duodenum. - A single bleeding angiodysplastic lesion in the duodenum. Clips were placed. 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 - One non-bleeding angiodysplastic lesion in the jejunum. Treated with a heater probe. - No specimens collected. Colonoscopy 07.28.24; - Preparation of the colon was inadequate. - Diverticulosis in the recto-sigmoid colon and in the sigmoid colon. - Blood in the entire examined colon. - No specimens collected. Capsule endoscopy .12.23; diffuse enteritis recommend IBD work up Last OV 09.17.24 Discussed findings of capsule. Biochemical work up 09.17.24; hgb 10.5 L, iron 26 L, ferritin 11 L, CRP wnl, ESR wnl Following her last appointment I ordered CRP, ESR and calprotectin to differentiate between IBD or other enteritis. Inflammatory markers were normal however she did not completed stool testing. OV 5.2.25 Pt f/u regarding her hx GI bleed and and alternating bowel habits. Pt endorses continued fatigue, loose urgent stools and constipation. She wonders if some of this could be related to a weak pelvic floor. She feels fatigued and unable to complete daily tasks over the past year. She continues with oral iron. She denies blood in her stool. Advised that I recommend she complete the stool testing so we can rule out IBD. She will continue Iron supplement. I have ordered blood work with CBC, iron and ferritin. She may feel fatigued due to her anemia and low iron. OV 02.23.25 Fatigue has improved recently, walking regularly better in cooler weather.. Reports abdominal pain and diarrhea about a week ago for 5 days. Has since resolved. No acute concerns. Plans to take metamucil more regularly. Loose stools depending on diet. Reports prescribed pantoprazole in 08/[address] Roberts. Requested a refill from [facility] but not filled. Restarted taking Omeprazole as previously by Dr. Levy. ] [facility] Medical History Wears glasses Post-menopausal Depression Anxiety Insulin dependent diabetes mellitus Low iron Fatty liver Dietary restriction Gastric reflux Former smoker Bloated abdomen History of echocardiogram Cardiology follow-up encounter Seizures Hypertension ADD (attention deficit disorder) Heart murmur, systolic PRES (posterior reversible encephalopathy syndrome) Osteoporosis Rectocele Incomplete uterovaginal prolapse Home Medications ?Medication ?Instructions ?Recorded ?Last Taken ?Type ascorbic acid (vitamin C) 500 mg 1,000 mg PO DAILY supplement 09/25/23 05/17/25 History capsule atorvastatin 20 mg tablet 20 mg PO QHS cholesterol #30 tabs 10/04/23 05/17/25 Rx bupropion HCl 150 mg 24 hr tablet, 150 mg PO DAILY mood #30 tabs 10/04/23 05/17/25 Rx extended release fluoxetine 20 mg capsule (Prozac) 20 mg PO DAILY mood #30 caps 10/04/23 05/17/25 Rx cholecalciferol (vitamin D3) 50 25 mcg PO DAILY vitamin 01/31/24 05/17/25 History mcg (2,000 unit) capsule (Vitamin D3) insulin lispro 100 unit/mL 5 unit subcut TID diabetes 05/07/24 05/17/25 History subcutaneous pen (Humalog KwikPen (U-100) Insulin) lisinopril 20 1 tab PO QDAY blood pressure 05/07/24 05/17/25 History mg-hydrochlorothiazide 12.5 mg tablet insulin glargine 100 unit/mL (3 5 unit subcut QPM diabetes 07/26/24 05/17/25 History mL) subcutaneous pen (Lantus Solostar U-100 Insulin) metoprolol succinate 50 mg 50 mg PO QDAY #90 tabs 02/03/25 05/17/25 Rx tablet,extended release 24 hr (Toprol XL) omega-3 acid ethyl esters 1 gram 1 cap PO QDAY 02/03/25 Unknown History capsule omeprazole 40 mg capsule,delayed 40 mg PO QDAY #90 caps 02/23/25 05/17/25 Rx release alprazolam 0.25 mg tablet 0.25 mg PO QDAY #1 TAB 04/28/25 05/17/25 Rx amlodipine 10 mg tablet 10 mg PO DAILY 05/14/25 05/17/25 History metformin 500 mg tablet 1,000 mg PO DAILY diabetes 05/14/25 05/17/25 History Allergy/AdvReac Type Severity Reaction Status Date / Time oxycodone AdvReac Intermediate Other Verified 05/14/25 14:53 cyclobenzaprine (From AdvReac other Verified 05/14/25 14:53 Flexeril) Family History Father Arthritis Diabetes Myocardial infarction, Onset Age: 63 Heart disease Hypertension Sister Arthritis Diabetes Brother Diabetes Mental disorder Mother Hypertension Migraines Cerebral hemorrhage Surgical History Hx of colonoscopy H/O: hysterectomy History of hip surgery History of tubal ligation History of rectal sphincterotomy H/O: Social History household members: spouse number of children: 2 current occupational status: employed 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 alcohol intake: never substance use type: does not use caffeine: Yes what type of physical activity do you participate in: none frequency: does not exercise ROS Constitutional Constitutional: Denies fatigue, fever(s), poor appetite, weight gain or weight loss Gastrointestinal Gastrointestinal: Denies belching, bloating, change in bowel habits, change in stool character, chewing difficulty, coffee ground emesis, constipation, cramping, diarrhea, dyspepsia, dysphagia, early satiety, excessive flatus, fecal incontinence, heartburn, hematemesis, hematochezia, hemorrhoids, loose stools, melena, nausea, odynophagia, rectal bleeding, tenesmus, vomiting or weight changes Vital Signs Vital Signs Vital Signs: 05/18/25 06:11 05/18/25 06:11 05/18/25 06:11 Temperature 97.4 F L Temperature Source Temporal Pulse Rate 68 Respiratory Rate 16 Respiratory Pattern Normal Blood Pressure 144/76 H Blood Pressure Mean 98 Blood Pressure Source Monitor Blood Pressure Position Semi-Fowlers Blood Pressure Location Left Arm Baseline BP 144/76 Pulse Ox 98 Oxygen Delivery Method Room Air 05/18/25 06:37 Temperature 97.4 F L Temperature Source Pulse Rate 68 Respiratory Rate 16 Respiratory Pattern Blood Pressure 144/76 H Blood Pressure Mean Blood Pressure Source Blood Pressure Position Blood Pressure Location Baseline BP Pulse Ox 98 Oxygen Delivery Method Room Air Weight Weight: 143 lb 4.807 oz Body Mass Index (BMI) 26.4 Physical Exam Const alert, oriented x3, no apparent distress and healthy appearing General Appearance: cooperative GI normal to inspection, nondistended, normoactive bowel sounds, soft to palpation, non-tender and non-distended Percussion: normal to percussion Rectal Exam: deferred Assessment & Plan Assessment/Plan (1) Loose stools: PLAN: Assessment and Plan Assessment and Plan (1) Loose stools: Status: Acute Plan: Reji is a 64-year-old female patient here today for follow-up regarding her loose stool and history of anemia. Patient had a GI bleed in July 2024 with EGD showing bleeding AVMs in the duodenum and jejunum. Colonoscopy with poor prep. Capsule endoscopy showing enteritis. Calprotectin from July 2024 was in the 120s. Patient continues to have intermittent loose stool which she relates to her poor diet. She notices sweets and greasy foods will give her diarrhea. Due to her elevated calprotectin, colonoscopy with poor prep and capsule showing enteritis there was concern for inflammatory bowel disease. I did recommend repeating the colonoscopy however she declines at this time. Will order repeat calprotectin, CBC, iron, TIBC and ferritin. Will consider discontinuing iron if her level is within the normal limits. She will continue omeprazole 40 mg daily. She will follow-up in 3 months and we will reassess need for colonoscopy. She may take Imodium as needed. - Recommended colonoscopy - Repeat calprotectin, CBC, iron, TIBC and ferritin - Consider discontinuing iron - Continue omeprazole - Follow-up in 3 months (2) Anemia: Status: Acute Orders: Orders Calprotectin, Stool Today R19.5 - Other fecal abnormalities CBC W/Diff, Automated Today D64.9 - Anemia, unspecified Iron+Iron Binding Capacity Today D64.9 - Anemia, unspecified Ferritin Today D64.9 - Anemia, unspecified Medications: New omeprazole 40 mg PO QDAY 90 caps 3RF
--- NOTE | 2025-05-18 07:12 | OP.COLON_ITS ---
Patient Name: Lakisha Echols Procedure Date: 05/18/2025 6:13 AM Date of : 1960 Age: 65 Procedure: Colonoscopy Indications: Clinically significant diarrhea of unexplained origin Providers: Ramez Khan DO Referring MD: Javier Levy Medicines: Monitored Anesthesia Care Patient Profile: This is a 65 year old female. Refer to note in patient chart for documentation of history and physical. Last Colonoscopy: within the past year. Complications: No immediate complications. Procedure: Pre-Anesthesia Assessment: - Prior to the procedure, a History and Physical was performed, and patient medications and allergies were reviewed. The patient is competent. The risks and benefits of the procedure and the sedation options and risks were discussed with the patient. All questions were answered and informed consent was obtained. Patient identification and proposed procedure were verified by the physician in the pre-procedure area. Mental Status Examination: alert and oriented. Airway Examination: normal oropharyngeal airway and neck mobility. Respiratory Examination: clear to auscultation. CV Examination: normal. Prophylactic Antibiotics: The patient does not require prophylactic antibiotics. Prior Anticoagulants: The patient has taken no anticoagulant or antiplatelet agents. ASA Grade Assessment: II - A patient with mild systemic disease. After reviewing the risks and benefits, the patient was deemed in satisfactory condition to undergo the procedure. The anesthesia plan was to use monitored anesthesia care (MAC). Immediately prior to administration of medications, the patient was re-assessed for adequacy to receive sedatives. The heart rate, respiratory rate, oxygen saturations, blood pressure, adequacy of pulmonary ventilation, and response to care were monitored throughout the procedure. The physical status of the patient was re-assessed after the procedure. After I obtained informed consent, the scope was passed under direct vision. Throughout the procedure, the patient's blood pressure, pulse, and oxygen saturations were monitored continuously. The Colonoscope was introduced through the anus and advanced to the cecum, identified by appendiceal orifice and ileocecal valve. The colonoscopy was performed without difficulty. The patient tolerated the procedure well. The quality of the bowel preparation was adequate. The terminal ileum, ileocecal valve, appendiceal orifice, and rectum were photographed. Scope In: 6:51:55 AM Scope Withdrawal Time 0 hours 8 minutes 52 seconds Scope Out: 7:06:35 AM Total Procedure Duration Time 0 hours 14 minutes 40 seconds Findings: The perianal and digital rectal examinations were normal. An area of mildly congested mucosa was found in the recto-sigmoid colon, in the sigmoid colon, in the transverse colon and in the ascending colon. Biopsies were taken with a cold forceps for histology. Verification of patient identification for the specimen was done. Estimated blood loss was minimal. Patchy mild inflammation characterized by erythema was found in the distal ileum and in the terminal ileum. Biopsies were taken with a cold forceps for histology. Verification of patient identification for the specimen was done. Estimated blood loss was minimal. Retroflexion in the rectum was not performed due to anatomy. Impression: - Congested mucosa in the recto-sigmoid colon, in the sigmoid colon, in the transverse colon and in the ascending colon. Biopsied. - Mild inflammation was found in the ileum secondary to ileitis. Biopsied. Recommendation: - Discharge patient to home. - Resume previous diet. - Continue present medications. - Await pathology results. - Repeat colonoscopy in 5 years for surveillance. Procedure Code(s): --- Professional --- 33754, Colonoscopy, flexible; with biopsy, single or multiple CPT copyright 2021 [employer]. All rights reserved. The codes documented in this report are preliminary and upon note specialist review may be revised to meet current compliance requirements. Ramez Khan DO 05/18/2025 7:11:20 AM This report has been signed electronically. Number of Addenda: 0 Note Initiated On: 05/18/2025 6:13 AM
--- NOTE | 2025-05-18 07:12 | OP.PROVAT_ITS ---
05/18/2025 Javier Levy [address] [place] [address] Re : Colonoscopy procedure for Lakisha Echols Dear Dr. Levy This procedure was performed on Sunday, May 18, 2025. My impressions and recommendations are as follows: Impressions : - Congested mucosa in the recto-sigmoid colon, in the sigmoid colon, in the transverse colon and in the ascending colon. Biopsied. - Mild inflammation was found in the ileum secondary to ileitis. Biopsied. Recommendations : - Discharge patient to home. - Resume previous diet. - Continue present medications. - Await pathology results. - Repeat colonoscopy in 5 years for surveillance. My findings are described in the full procedure note, which is enclosed. If I can be of further assistance, please feel free to contact me at . Sincerely, Ramez Khan, 05/18/2025 7:11:20 AM This report has been signed electronically.
--- NOTE | 2025-05-18 07:14 | PCM.POST.ANE ---
Anesthesia: Postop Eval I Current Vital Signs Temperature: 97.1 F Pulse Rate: 64 Blood Pressure: 81/48 Respiratory Rate: 16 Pulse Ox: 96 Oxygen Delivery Method: Room Air Assessment Airway patent: Yes Spontaneous unlabored respirations: Yes Mental status: Asleep nausea: No Vomiting: No Anesthesia Complication: No Fluid Hydration Crystalloid volume administer (ml): 400 Total IV fluid infused: 400 Progress Note Anesthesia document: Postop Eval 1 completed: Yes
--- NOTE | 2025-05-18 16:19 | PCM.POSTANE2 ---
Anesthesia Postop Eval I Sum Postop Eval Completion status Anesthesia document: Postop Eval 1 completed: Yes Anesthesia Postop Eval I Summary Anesthesia Postop Eval I Summary: Anesthesia Postop Eval I: Assessment Summary Airway patent Yes 05/18/25 07:15 [email or web address] Spontaneous unlabored Yes 05/18/25 07:15 [email or web address] respirations Mental status Asleep 05/18/25 07:15 [email or web address] nausea No 05/18/25 07:15 [email or web address] Vomiting No 05/18/25 07:15 [email or web address] Anesthesia Postop Eval I: Fluid Summary Crystalloid volume administer 400 05/18/25 07:15 [email or web address] (ml) Colloids volume administered ( ml) Blood Product volume administered (ml) Total IV fluid infused 400 05/18/25 07:15 [email or web address] Anesthesia Postop Eval I: Summary Notes Anesthesia Complication No 05/18/25 07:15 [email or web address] Anesthesia Complication Comment: Post-operative progress note Anesthesia: Postop Eval II Evaluation Mental status: Awake and Calm Pain Level: 1 nausea: No Vomiting: No Complications Anesthesia Complication: No
== END 2025-05-18 08:16 | disposition home or self-care (01) ==
LOC: EN 05:37 → AC 05:38
PROVIDERS: PCP Family Medicine; Referring Provider Family Medicine; Visit Provider Internal Medicine Gastroenterology
PROC: 0DJD8ZZ Inspection of Lower Intestinal Tract, Via Natural or Artificial Opening Endoscopic (ICD-10-PCS; CPT 45378; principal; 2025-05-18 06:25)
DX: R19.7 Diarrhea, unspecified (principal); Z79.4 Long term (current) use of insulin; E11.9 Type 2 diabetes mellitus without complications; Z79.84 Long term (current) use of oral hypoglycemic drugs; K21.9 Gastro-esophageal reflux disease without esophagitis; Z90.710 Acquired absence of both cervix and uterus; D64.9 Anemia, unspecified; Z87.891 Personal history of nicotine dependence; I10 Essential (primary) hypertension; K63.89 Other specified diseases of intestine; Z79.899 Other long term (current) drug therapy; F32.A Depression, unspecified; F41.9 Anxiety disorder, unspecified; Z98.51 Tubal ligation status
CPT/HCPCS: 45380; 82962; 88305; J2405